=== PATIENT | female | born 1975 | race Two or more races ===

== ENCOUNTER 2016-07-19 07:00 | Inpatient (IN) | payer OTHER ==
[~2016-07-19] VITALS: Ht 147.3 cm; Wt 39.8 kg
[2016-07-19] VITALS (7 sets, daily range): BP systolic 98–104; BP diastolic 57–60; PULSE 96–109; RESP 16–18; TEMP 98.1; Ht 147.3 cm; Wt 39.8 kg
[~2016-07-19 07:00] MED LIST: ALBU8.5H3 INH; CYAN100053 IM; FAMO20TA18 PO; FLUT16SP17 NASAL; FOLI-49 PO; HYDR25CA PO; LORA10TA3 PO; NYST15OI TOP
[2016-07-19] MEDS ORDERED: SOD CHLORIDE 0.9% 1,000 ML IV STA (07:11)
--- NOTE | 2016-07-19 07:38 | RADRPT ---
PROCEDURE: Chest Radiograph. CLINICAL INDICATION: Abdominal pain TECHNIQUE: Single frontal chest radiograph. COMPARISON: 11/02/2015 FINDINGS: The cardiomediastinal silhouette is within normal limits. No infiltrate or effusion is seen. Th e bones are intact. IMPRESSION: 1. Unremarkable chest radiograph. RPTAT: AA .José Awan MD, MD Date Time Electronically viewed and signed by .José Awan MD, on 07/19/2016 07:37 .B/
--- NOTE | 2016-07-19 07:38 | ERA ---
ER Documentation Chief Complaint Date/Time DATE: 07/19/16 TIME: 07:36 Chief Complaint cough and congestion for the past few weeks. severe weakness HPI 41-year-old female history of Hirschsprung's disease, diverting colostomy, hypomagnesemia as well as chronic anemia who presents with generalized malaise. The patient has multiple complaints including cough congestion for several weeks. She describes severe weakness and dehydration. She denies any headache chest pain nausea vomiting or diarrhea. The patient states occasional palpitations but no pleuritic pain. She denies hematemesis or melena. ROS All systems reviewed and are negative except as per history of present illness. Medications Home Meds Reported Medications Hydroxyzine Pamoate* (Vistaril*) 25 Mg Capsule, 25 MG PO QHS Y for ITCHING, CAP 11/02/15 Nystatin-Triamcinolone* (Nystatin-Triamcinolone* Oint) 15 Gm Oint..gm., 1 APPLIC TOP DAILY, TUB 11/02/15 Albuterol Sulfate* (Proair HFA*) 8.5 Gm Hfa.aer.ad, 2 PUFF INH Q4H Y for WHEEZING AND SOB, #1 INHALER 11/02/15 Loratadine* (Loratadine*) 10 Mg Tablet, 10 MG PO DAILY, TAB 11/02/15 Folic Acid* (Folic Acid*) 1 Mg Tablet, 1 MG PO DAILY, TAB 11/02/15 Fluticasone Propionate* (Fluticasone Propionate* Nasal) 50 Mcg/Gay - 16 Gm Gay.susp, 1 SPRAY NASAL DAILY Y for ALLERGIC REACTION, BOTTLE TO EACH NOSTRIL 11/02/15 Famotidine* (Famotidine*) 20 Mg Tablet, 20 MG PO BID, TAB 11/02/15 Cyanocobalamin* (Vitamin B-12* Inj) 1,000 Mcg/Ml Vial, 1000 MCG IM Q28D, VIAL 11/02/15 Allergies Allergies: Coded Allergies: ferrous sulfate (Verified Allergy, Severe, 11/04/15) ANY FORM OF FERROUS codeine (Verified Allergy, Unknown, 11/02/15) PMhx/Soc History of Surgery: Yes (see eval note) Anesthesia Reaction: No Hx 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 Disorder: No Hx Respiratory Disorders: No Hx Cardiac Disorders: Yes (anemia) Hx Psychiatric Problems: No Hx Miscellaneous Medical Probl: Yes Hx Alcohol Use: No Hx Substance Use: No Hx Tobacco Use: No FmHx Family History: No diabetes Physical Exam Vitals Vital Signs Date Time Temp Pulse Resp B/P Pulse Ox O2 Delivery O2 Flow Rate FiO2 07/19/16 07:01 98.1 102 20 105/53 99 Physical Exam General: Cachectic, dehydrated Head: Normocephalic, atraumatic. Eyes: Pupils equally reactive, EOM intact ENT: Dry mucous membranes Neck: Supple, no lymphadenopathy Respiratory: Lungs clear bilaterally, no distress Cardiovascular: RRR, no murmurs, rubs, or gallops Abdominal: Soft, non-tender, non-distended, no peritoneal signs, ostomy with moderate output : Deferred MSK: No edema, no unilateral swelling, 5/5 strength Neurologic: Alert and oriented, moving all extremities, normal speech, no focal weakness, no cerebellar signs Skin: No rash Psych: Normal mood Result Diagram: 07/19/16 0805 07/19/16 0805 Results 24 hrs Laboratory Tests Test 07/19/16 08:05 07/19/16 08:08 Activated Partial Thromboplast Time 28.2Sec Alanine Aminotransferase (ALT/SGPT) 41IU/L Albumin 4.7g/dl Albumin/Globulin Ratio 1.14 Alkaline Phosphatase 111IU/L Anion Gap 19 Aspartate Amino Transf (AST/SGOT) 46IU/L Basophils # 0.110^3/ul Basophils % 0.7% Blood Morphology Comment Blood Urea Nitrogen 52mg/dl Calcium Level 9.0mg/dl Carbon Dioxide Level 21mmol/L Chloride Level 77mmol/L Creatinine 0.84mg/dl Direct Bilirubin 0.00mg/dl Eosinophils # 0.110^3/ul Eosinophils % 0.6% Globulin 4.10g/dl Glucose Level 119mg/dl Hematocrit 43.7% Hemoglobin 15.4g/dl INR International Normalized Ratio 0.95 Indirect Bilirubin 0.9mg/dl Lipase 147U/L Lymphocytes # 1.110^3/ul Lymphocytes % 12.2% Magnesium Level 1.6mg/dl Mean Corpuscular Hemoglobin 30.0pg Mean Corpuscular Hemoglobin Concent 35.2g/dl Mean Corpuscular Volume 85.1fl Mean Platelet Volume 7.4fl Monocytes # 0.210^3/ul Monocytes % 2.5% Neutrophils # 7.410^3/ul Neutrophils % 84.0% Nucleated Red Blood Cells # 0.010^3/ul Nucleated Red Blood Cells % 0.0/100WBC Platelet Count 65512^3/UL Potassium Level 6.2mmol/L Prothrombin Time 12.7Sec Prothrombin Time Ratio 1.0 Red Blood Count 5.1310^6/ul Red Cell Distribution Width 13.7% Sodium Level 111mmol/L Total Bilirubin 0.9mg/dl Total Protein 8.8g/dl Troponin I 0.013ng/ml White Blood Count 8.810^3/ul Random Cortisol ug/dl Urine Bacteria FEW Urine Bilirubin NEGATIVE Urine Clarity CLEAR Urine Color LT. YELLOW Urine Epithelial Cells FEW Urine Glucose NEGATIVE% Urine Hemoglobin 1+ Urine Ketones NEGATIVE Urine Leukocyte Esterase NEGATIVE Urine Microscopic RBC 0-2/HPF Urine Microscopic WBC NONE SEEN/HPF Urine Nitrite NEGATIVE Urine Random Potassium Pending Urine Random Sodium Pending Urine Specific [place] 1.015 Urine Total Protein 1+ Urine Urobilinogen 0.2 E.U./dL Urine pH 6.0 Current Medications Medications (Trade) Dose Ordered Sig/Elvie Route PRN Reason Start Time Stop Time Status Last Admin Dose Admin Sodium Chloride (NS) 1,000 ml @ 1,000 mls/hr Q1H STAT IV 07/19/16 07:11 07/19/16 08:10 DC 07/19/16 07:58 Ondansetron HCl (Zofran Inj) 4 mg ER BRIDGE PRN IV NAUSEA AND/OR VOMITING 07/19/16 10:00 07/20/16 09:59 Acetaminophen (Tylenol Tab) 650 mg ER BRIDGE PRN PO MILD PAIN/FEVER 07/19/16 10:00 07/20/16 09:59 Procedures/MDM EKG, MONITORS, & DIAGNOSTIC IMAGING: EKG: I reviewed and interpreted a 12-lead EKG. Rhythm: Normal sinus rhythm Ectopy: None Intervals: No abnormalities ST segments: No elevations or depressions T waves: No contiguous inversions Chest x-ray: I reviewed and interpreted a 1 view of the chest Mediastinum: No enlargement Cardiac silhouette: No cardiomegaly Airspace: Clear lung correia bilaterally without evidence of pneumothorax Bones: No evidence of fracture Procedure: Peripheral IV Insertion: Indication: Difficult IV access Location: Left antecubital fossa Attempts: 1 Angiocath-type: 18-gauge The patient was consented prior to procedure and states understanding of risks, benefits, alternatives. Verbal consent was provided Sterile procedure was used to insert a peripheral IV. Indication, location and Angiocath-type are noted above. Ultrasound guidance was used to assist in the insertion of the Angiocath. Return of dark nonpulsatile blood was obtained, normal saline flushed through the Angiocath which was then secured to the skin. The patient tolerated the procedure well without complications. Emergency Bedside Ultrasound: The patient was verbally consented prior to procedure and understands the risks , benefits, and alternatives. The patient is agreeable to procedure and has given verbal consent. Indication: Peripheral IV insertion Probe Type: Linear Findings: Dynamic ultrasound utilized with compression technique with both linear and horizontal views. The images were not saved because the ultrasound we were using does not have printer function LAB INTERPRETATION: Significant hyponatremia of 111, hyperkalemia, mild hypomagnesemia MEDICAL DECISION MAKING: The patient has signs and symptoms consistent with severe dehydration. The patient appears to be malnourished. The patient does describe coughing congestion but no signs of pneumonia, pulmonary embolism, CHF. This is possibly a viral process. She will benefit from laboratory testing and chest x- ray imaging she will also benefit from IV fluids. ER COURSE: The patient had difficult access. IV was established the patient was given fluids. Her laboratory testing suggests significant hypovolemic hyponatremia. Consider possible adrenal insufficiency however the patient does take potassium supplements. Her slight hyperkalemia could be secondary to this process. The patient has no EKG changes, no indication for Kayexalate or calcium or bicarb. Fluid resuscitation would be appropriate. Serum osmolality, urine electrolytes and cortisol levels have been added on. I discussed the possibility of hydrocortisone with the admitting team, they would like to avoid this until confirmation of possible diagnosis. This seems reasonable given the patient's relative hemodynamic stability. The patient does have significant hyponatremia but no evidence of seizure or altered mental status, no indication for hypertonic saline. I discussed possible ICU admission with the admitting team, they are comfortable managing the patient on telemetry. I kept the patient and/or family informed of laboratory and diagnostic imaging results throughout the emergency room course. DISPOSITION PLAN: Telemetry admission for management of dehydration CONSULTATION: Accepting care team and consultations: I discussed the current laboratory data, diagnostic imaging and emergency care provided. Admitting team: Dr. Prasad Admitting team indication: Insurance directed Consulting services: Dr. Flaherty, the patient's hematology oncologist will consult on the case. Departure Diagnosis: Primary Impression: Hyponatremia Additional Impressions: Hyperkalemia Dehydration Hypomagnesemia History of Hirschsprung's disease Condition: Stable OCTAVIA MARROQUIN MD Jul 19, 2016 07:38
[2016-07-19 08:19] LABS: BASOPHIL # 0.1 10^3/ul (0.0-0.1); BASOPHILS % 0.7 % (0.0-2.0); EOSINOPHILS # 0.1 10^3/ul (0.0-0.5); EOSINOPHILS % 0.6 % (0.0-7.0); HEMATOCRIT 43.7 % (37.0-47.0); HEMOGLOBIN 15.4 g/dl (12.0-16.0); LYMPHOCYTES # 1.1 10^3/ul (0.8-2.9); LYMPHOCYTES % 12.2 % (15.0-51.0); MEAN CORPUSCULAR HGB CONC 35.2 g/dl (32.0-37.0); MEAN CORPUSCULAR VOLUME 85.1 fl (82.0-101.0); MEAN PLATELET VOLUME 7.4 fl (7.4-10.4); MONOCYTE # 0.2 10^3/ul (0.3-0.9); MONOCYTES % 2.5 % (0.0-11.0); NEUTROPHIL # 7.4 10^3/ul (1.6-7.5); PLATELET COUNT 405 10^3/UL (140-440); RED BLOOD COUNT 5.13 10^6/ul (4.20-5.40); RED CELL DISTRIBUTION WIDTH 13.7 % (11.5-14.5); UNCORRECTED WBC 8.8 10^3/ul (4.8-10.8); WHITE BLOOD COUNT 8.8 10^3/ul (4.8-10.8)
[2016-07-19 08:25] LABS: ADD UMIC YES; URINE BILIRUBIN (Dip) NEGATIVE (NEGATIVE); URINE BLOOD (Dip) 1+ (NEGATIVE); URINE COLOR LT. YELLOW (YELLOW); URINE GLUCOSE (Dip) NEGATIVE (NEGATIVE); URINE KETONES (Dip) NEGATIVE (NEGATIVE); URINE LEUKOCYTE ESTERASE (Dip) NEGATIVE (NEGATIVE); URINE NITRITE (Dip) NEGATIVE (NEGATIVE); URINE TOTAL PROTEIN (Dip) 1+ (NEGATIVE); URINE UROBILINOGEN (Dip) 0.2 E.U./dL (0.1-1.0)
[2016-07-19 08:26] LABS: CONDITION 1
[2016-07-19 08:27] LABS: ALBUMIN 4.7 g/dl (3.3-4.9)
[2016-07-19 08:29] LABS: CREATININE 0.84 mg/dl (0.44-1.00)
[2016-07-19 08:30] LABS: ALBUMIN/GLOBULIN RATIO 1.14; BILIRUBIN,INDIRECT 0.9 mg/dl (0-1.1); BILIRUBIN,TOTAL 0.9 mg/dl (0.2-1.3); MAGNESIUM 1.6 mg/dl (1.7-2.5); TOTAL PROTEIN 8.8 g/dl (6.1-8.1)
[2016-07-19 08:32] LABS: BACTERIA,URINE FEW; URINE RBCS 0-2 /HPF (0)
[2016-07-19 08:34] LABS: POTASSIUM 6.2 mmol/L (3.5-5.1)
[2016-07-19 08:35] LABS: INR 0.95; PROTIME 12.7 Sec (12.2-14.2)
[2016-07-19 08:36] LABS: PARTIAL THROMBOPLASTIN TIME 28.2 Sec (25.0-35.0)
[2016-07-19 08:41] LABS: TROPONIN-I 0.013 ng/ml (0.00-0.12)
[2016-07-19] MEDS ORDERED: ONDANSETRON 4 MG INJ IV PRN (10:00)
[2016-07-19] MEDS ORDERED: ACETAMINOPHEN 325 MG TAB PO PRN (10:00)
[2016-07-19 10:05] LABS: POTASSIUM,URINE RANDOM 42.4 mmol/L (25-125)
[2016-07-19] MEDS ORDERED: MAGNESIUM SULFATE 1 GM/D5W 100 ML IVPB ONE (10:30)
[2016-07-19] MEDS: SOD CHLORIDE 0.9% 1,000 ML IV SCH ×2 (14:48→21:21)
--- NOTE | 2016-07-19 15:10 | CONS ---
Date/Time of Note Date/Time of Note DATE: 07/19/16 TIME: 14:59 Assessment/Plan Assessment/Plan Chief Complaint/Hosp Course 41 yo female with h/o iron deficiency anemia and Hirschsprung's disease who now presents with severe hyponatremia and hyperkalemia secondary to dehydration and potassium supplementation. -continue IV fluids per primary team -cont to monitor electrolytes and will hold all K supplementation -continue to monitor Hg. Pt currently not anemic and does not need IV iron Approximately 40 min were spent at patient's bedside and in coordination of her care Problems: Consultation Date/Type/Reason Admit Date/Time Jul 19, 2016 at 12:15 Date of Consultation: Jul 19, 2016 Type of Consultation: hematology Reason for Consultation h/o iron deficiency anemia Referring Provider: CARLOS RODRIGUEZ MD Hx of Present Illness 41 yo female well known to our office with history of Hirschsprung's disease who is chronically iron deficiency. Pt is closely followed in our office for iron transfusions which she has not needed for the last 2 months. Pt is also chronically hypokalemic and hypomagnesemic. Pt presented to ER with worsening weakness and tremors. In the ER she was found to be severely hyponatremic with a Na 111 and hyperkalemic with a K 6.2. She is now on IV hydration and her sx have improved. She is currently not anemic and has a Hg 15. Constitutional: poor po Eyes: no complaints ENT: no complaints Respiratory: no complaints Cardiovascular: lightheadedness, palpitations Gastrointestinal: decreased appetite, nausea Genitourinary: no complaints Musculoskeletal: bone/joint pain Skin: no complaints Neurologic: dizziness Past Medical History iron deficiency anemia h/o Hirschsprung's disease with h/o colectomy Past Surgical History port a cath placement and removal for port infection Past Surgical Hx: other Family History Significant Family History: no pertinent family hx Social History Alcohol Use: none Smoking Status: Never smoker Drug Use: none Exam/Review of Systems Vital Signs Vitals Vital Signs Date Time Temp Pulse Resp B/P Pulse Ox O2 Delivery O2 Flow Rate FiO2 07/19/16 12:32 107 07/19/16 12:28 97.7 16 104/60 100 Room Air Exam Constitutional: alert, frail, oriented Psych: no complaints Head: atraumatic, normocephalic Eyes: nl conjunctiva ENMT: nl external ears & nose Neck: non-tender, supple Respiratory: clear to auscultation, normal air movement Cardiovascular: nl pulses, regular rate and rhythm Gastrointestinal: soft Musculoskeletal: nl extremities to inspection, nl gait and stance Extremities: normal pulses Results Result Diagram: 07/19/16 0805 07/19/16 0805 Results 24 hrs Laboratory Tests Test 07/19/16 08:05 07/19/16 08:08 07/19/16 10:10 Activated Partial Thromboplast Time 28.2 Alanine Aminotransferase (ALT/SGPT) 41 Albumin 4.7 Albumin/Globulin Ratio 1.14 Alkaline Phosphatase 111 Anion Gap 19 H Aspartate Amino Transf (AST/SGOT) 46 Basophils # 0.1 Basophils % 0.7 Blood Morphology Comment Blood Urea Nitrogen 52 H Calcium Level 9.0 Carbon Dioxide Level 21 Chloride Level 77 L Creatinine 0.84 Direct Bilirubin 0.00 Eosinophils # 0.1 Eosinophils % 0.6 Globulin 4.10 H Glucose Level 119 Hematocrit 43.7 # Hemoglobin 15.4 # INR International Normalized Ratio 0.95 Indirect Bilirubin 0.9 Lipase 147 Lymphocytes # 1.1 Lymphocytes % 12.2 L Magnesium Level 1.6 L Mean Corpuscular Hemoglobin 30.0 Mean Corpuscular Hemoglobin Concent 35.2 Mean Corpuscular Volume 85.1 Mean Platelet Volume 7.4 Monocytes # 0.2 L Monocytes % 2.5 Neutrophils # 7.4 Neutrophils % 84.0 H Nucleated Red Blood Cells # 0.0 Nucleated Red Blood Cells % 0.0 Platelet Count 405 Potassium Level 6.2 *H Prothrombin Time 12.7 Prothrombin Time Ratio 1.0 Red Blood Count 5.13 # Red Cell Distribution Width 13.7 Sodium Level 111 *L Total Bilirubin 0.9 Total Protein 8.8 H Troponin I 0.013 White Blood Count 8.8 # Random Cortisol 21.9 Urine Bacteria FEW Urine Bilirubin NEGATIVE Urine Clarity CLEAR Urine Color LT. YELLOW Urine Epithelial Cells FEW Urine Glucose NEGATIVE Urine Hemoglobin 1+ H Urine Ketones NEGATIVE Urine Leukocyte Esterase NEGATIVE Urine Microscopic RBC 0-2 Urine Microscopic WBC NONE SEEN Urine Nitrite NEGATIVE Urine Osmolality 631 Urine Random Potassium 42.4 Urine Random Sodium < 13 L Urine Specific [employer] 1.015 Urine Total Protein 1+ H Urine Urobilinogen 0.2 E.U./dL Urine pH 6.0 Osmolality 249 L Medications Medications Current Medications Sodium Chloride (NS) 1,000 ml @ 150 mls/hr Q6H40M IV Last administered on t 14:48; Admin Dose 150 MLS/HR; Start 07/19/16 at 14:00 PADMINI SHERIFF M.D. Jul 19, 2016 15:10
--- NOTE | 2016-07-19 15:34 | HP ---
Date/Time of Note Date/Time of Note DATE: 07/19/16 TIME: 15:32 Assessment/Plan VTE Prophylaxis VTE Prophylaxis Intervention: LMWH Lines/Catheters IV Catheter Type (from [facility]): Saline Lock Urinary Cath still in place: No Assessment/Plan Chief Complaint/Hosp Course 1) hyponatremia - IV fluid - appreciate hematology assistance 2) Hirschsprung - monitor Problems: HPI/ROS Admit Date/Time Admit Date/Time Jul 19, 2016 at 12:15 Hx of Present Illness Patient with Hirschsprungs disease comes in with weakness and fatigue. Patient was found to be severely hyponatremic and admitted for further treatment. ROS Eyes: no complaints ENT: no complaints Respiratory: no complaints Cardiovascular: lightheadedness, palpitations Gastrointestinal: decreased appetite, nausea Genitourinary: no complaints Musculoskeletal: bone/joint pain Skin: no complaints Neurologic: dizziness Psychological: no complaints PMH/Family/Social Past Medical History Hirschsprung disease Past Surgical History Ileostomy Past Surgical Hx: other Social History Alcohol Use: none Smoking Status: Never smoker Drug Use: none Exam/Review of Systems Vital Signs Vitals Vital Signs Date Time Temp Pulse Resp B/P Pulse Ox O2 Delivery O2 Flow Rate FiO2 07/19/16 12:32 107 07/19/16 12:28 97.7 16 104/60 100 Room Air Exam Constitutional: frail, well developed Head: atraumatic, normocephalic Neck: supple Respiratory: clear to auscultation Cardiovascular: regular rate and rhythm Gastrointestinal: non-tender, soft Extremities: normal pulses Labs Result Diagram: 07/19/16 0805 07/19/16 0805 Medications Medications Current Medications Sodium Chloride (NS) 1,000 ml @ 150 mls/hr Q6H40M IV Last administered on t 14:48; Admin Dose 150 MLS/HR; Start 07/19/16 at 14:00 GINGER MOSES Jul 19, 2016 15:33
[2016-07-20] VITALS (11 sets, daily range): BP systolic 91–99; BP diastolic 53–57; PULSE 86–113; RESP 16–20
[2016-07-20] MEDS: SOD CHLORIDE 0.9% 1,000 ML IV SCH ×5 (03:33→22:23)
[2016-07-20 07:45] LABS: BASOPHILS % 0.1 % (0.0-2.0); EOSINOPHILS # 0.1 10^3/ul (0.0-0.5); EOSINOPHILS % 1.5 % (0.0-7.0); HEMATOCRIT 36.9 % (37.0-47.0); HEMOGLOBIN 12.9 g/dl (12.0-16.0); LYMPHOCYTES # 0.7 10^3/ul (0.8-2.9); LYMPHOCYTES % 12.5 % (15.0-51.0); MEAN CORPUSCULAR HEMOGLOBIN 30.5 pg (29.0-33.0); MEAN CORPUSCULAR HGB CONC 34.9 g/dl (32.0-37.0); MEAN CORPUSCULAR VOLUME 87.5 fl (82.0-101.0); MEAN PLATELET VOLUME 7.4 fl (7.4-10.4); MONOCYTE # 0.6 10^3/ul (0.3-0.9); MONOCYTES % 11.9 % (0.0-11.0); PLATELET COUNT 307 10^3/UL (140-440); RED BLOOD COUNT 4.22 10^6/ul (4.20-5.40); RED CELL DISTRIBUTION WIDTH 14.1 % (11.5-14.5); UNCORRECTED WBC 5.4 10^3/ul (4.8-10.8); WHITE BLOOD COUNT 5.4 10^3/ul (4.8-10.8)
[2016-07-20 07:53] LABS: CONDITION 1
[2016-07-20 08:05] LABS: POTASSIUM 3.4 mmol/L (3.5-5.1)
[2016-07-20 08:08] LABS: CREATININE 0.53 mg/dl (0.44-1.00)
[2016-07-20 08:09] LABS: CALCIUM 8.4 mg/dl (8.4-10.2)
--- NOTE | 2016-07-20 12:25 | PN ---
Date/Time of Note Date/Time of Note DATE: 07/20/16 TIME: 12:23 Assessment/Plan VTE Prophylaxis VTE Prophylaxis Intervention: LMWH Lines/Catheters IV [facility] Type [facility]from [facility] Peripheral IV Urinary Cath still in place: No Assessment/Plan Chief Complaint/Hosp Course 1) hyponatremia - improved - continue IV fluid - appreciate hematology assistance 2) Hirschsprung - monitor Problems: Subjective 24 Hr Interval Summary Free Text/Dictation Patient awake but appears to be confused Exam/Review of Systems Vital Signs Vitals Vital Signs Date Time Temp Pulse Resp B/P Pulse Ox O2 Delivery O2 Flow Rate FiO2 07/20/16 11:40 98.2 85 18 97/53 100 07/19/16 12:28 Room Air Intake and Output 07/19/16 07/19/16 07/20/16 15:00 23:00 07:00 Intake Total 540 ml 2440 ml Output Total 400 ml 2150 ml Balance 140 ml 290 ml Exam Constitutional: well developed Head: atraumatic, normocephalic Neck: supple Respiratory: diminished breath sounds Cardiovascular: regular rate and rhythm Gastrointestinal: non-tender, soft Extremities: normal pulses Results Result Diagram: 07/20/16 0658 07/20/16 0658 Results 24 hrs Laboratory Tests Test 07/20/16 06:58 Anion Gap 14 Basophils # 0.0 Basophils % 0.1 Blood Urea Nitrogen 16 # Calcium Level 8.4 Carbon Dioxide Level 24 Chloride Level 99 # Creatinine 0.53 Eosinophils # 0.1 Eosinophils % 1.5 Glucose Level 73 # Hematocrit 36.9 L Hemoglobin 12.9 Lymphocytes # 0.7 L Lymphocytes % 12.5 L Mean Corpuscular Hemoglobin 30.5 Mean Corpuscular Hemoglobin Concent 34.9 Mean Corpuscular Volume 87.5 Mean Platelet Volume 7.4 Monocytes # 0.6 Monocytes % 11.9 H Neutrophils # 4.0 Neutrophils % 74.0 Nucleated Red Blood Cells # 0.0 Nucleated Red Blood Cells % 0.0 Platelet Count 307 # Potassium Level 3.4 #L Red Blood Count 4.22 Red Cell Distribution Width 14.1 Sodium Level 134 #L White Blood Count 5.4 # Medications Medications Current Medications Sodium Chloride (NS) 1,000 ml @ 150 mls/hr Q6H40M IV Last administered on t 11:46; Admin Dose 150 MLS/HR; Start 07/19/16 at 14:00 GINGER MOSES Jul 20, 2016 12:24
[2016-07-21] VITALS (13 sets, daily range): BP systolic 82–101; BP diastolic 52–56; PULSE 82–107; RESP 16–20
[2016-07-21] MEDS: SOD CHLORIDE 0.9% 1,000 ML IV SCH ×3 (05:39→19:20)
[2016-07-21 08:09] LABS: CREATININE 0.46 mg/dl (0.44-1.00)
[2016-07-21 08:10] LABS: CALCIUM 7.4 mg/dl (8.4-10.2)
[2016-07-21 08:14] LABS: BASOPHILS % 0.1 % (0.0-2.0); EOSINOPHILS # 0.3 10^3/ul (0.0-0.5); EOSINOPHILS % 4.4 % (0.0-7.0); HEMATOCRIT 34.6 % (37.0-47.0); LYMPHOCYTES # 0.7 10^3/ul (0.8-2.9); LYMPHOCYTES % 10.7 % (15.0-51.0); MEAN CORPUSCULAR HEMOGLOBIN 30.1 pg (29.0-33.0); MEAN CORPUSCULAR HGB CONC 34.6 g/dl (32.0-37.0); MEAN CORPUSCULAR VOLUME 87.1 fl (82.0-101.0); MEAN PLATELET VOLUME 7.1 fl (7.4-10.4); MONOCYTE # 0.6 10^3/ul (0.3-0.9); MONOCYTES % 9.1 % (0.0-11.0); NEUTROPHIL # 5.3 10^3/ul (1.6-7.5); NEUTROPHILS % 75.7 % (39.0-77.0); PLATELET COUNT 344 10^3/UL (140-440); RED BLOOD COUNT 3.98 10^6/ul (4.20-5.40); RED CELL DISTRIBUTION WIDTH 13.8 % (11.5-14.5)
[2016-07-21 08:15] LABS: POTASSIUM 2.3 mmol/L (3.5-5.1)
[2016-07-21 08:25] LABS: CONDITION 1
[2016-07-21] MEDS: POTASSIUM CHLORIDE 250 ML IVPB SCH ×2 (09:30→18:28)
--- NOTE | 2016-07-21 12:13 | PN ---
Date/Time of Note Date/Time of Note DATE: 07/21/16 TIME: 12:12 Assessment/Plan VTE Prophylaxis VTE Prophylaxis Intervention: LMWH Lines/Catheters IV [facility] (from [facility] Peripheral IV Urinary Cath still in place: No Assessment/Plan Chief Complaint/Hosp Course 1) hyponatremia - improved - continue IV fluid - appreciate hematology assistance 2) Hirschsprung - monitor 3) hypokalemia - replace - monitor Problems: Subjective 24 Hr Interval Summary Free Text/Dictation Patient continues to feel weak Exam/Review of Systems Vital Signs Vitals Vital Signs Date Time Temp Pulse Resp B/P Pulse Ox O2 Delivery O2 Flow Rate FiO2 07/21/16 12:11 97.5 84 20 89/52 100 07/21/16 00:00 Room Air Intake and Output 07/20/16 07/20/16 07/21/16 15:00 23:00 07:00 Intake Total 1750 ml 500 ml Output Total 910 ml 1050 ml Balance 840 ml -550 ml Exam Constitutional: well developed Head: atraumatic, normocephalic Neck: supple Respiratory: diminished breath sounds Cardiovascular: regular rate and rhythm Gastrointestinal: non-tender, soft Results Result Diagram: 07/21/16 0725 07/21/16 0725 Results 24 hrs Laboratory Tests Test 07/21/16 07:25 Anion Gap 14 Basophils # 0.0 Basophils % 0.1 Blood Morphology Comment Blood Urea Nitrogen 10 Calcium Level 7.4 L Carbon Dioxide Level 25 Chloride Level 100 Creatinine 0.46 Eosinophils # 0.3 Eosinophils % 4.4 Glucose Level 87 Hematocrit 34.6 L Hemoglobin 12.0 Lymphocytes # 0.7 L Lymphocytes % 10.7 L Mean Corpuscular Hemoglobin 30.1 Mean Corpuscular Hemoglobin Concent 34.6 Mean Corpuscular Volume 87.1 Mean Platelet Volume 7.1 L Monocytes # 0.6 Monocytes % 9.1 Neutrophils # 5.3 Neutrophils % 75.7 Nucleated Red Blood Cells # 0.0 Nucleated Red Blood Cells % 0.0 Platelet Count 344 Potassium Level 2.3 *L Red Blood Count 3.98 L Red Cell Distribution Width 13.8 Sodium Level 137 White Blood Count 7.0 # Medications Medications Current Medications Sodium Chloride 1,000 ml @ 150 mls/hr Q6H40M IV Last administered on 07/21/16t 05:39; Admin Dose 150 MLS/HR; Start 07/19/16 at 14:00 Potassium Chloride (KCl 40 MEQ/250 ML NS) 250 ml @ 62.5 mls/hr Q4H IVPB Last administered on 07/21/16t 09:30; Admin Dose 62.5 MLS/HR; Start 07/21/16 at 09:30; Stop 07/21/16 at 17:29 GINGER MOSES Jul 21, 2016 12:13
[2016-07-21] MEDS ORDERED: POTASSIUM CHLORIDE (SR) 20 MEQ TAB PO STA (22:13)
[2016-07-21] MEDS: hydrOXYzine HCL 10 MG TAB GTB PRN (23:32)
[2016-07-22] VITALS (13 sets, daily range): BP systolic 89–101; BP diastolic 47–59; PULSE 75–110; RESP 19–20
[2016-07-22] MEDS: SOD CHLORIDE 0.9% 1,000 ML IV SCH ×5 (01:15→21:22)
[2016-07-22 10:59] LABS: BASOPHIL # 0.1 10^3/ul (0.0-0.1); BASOPHILS % 0.5 % (0.0-2.0); EOSINOPHILS # 0.5 10^3/ul (0.0-0.5); HEMATOCRIT 38.2 % (37.0-47.0); HEMOGLOBIN 13.2 g/dl (12.0-16.0); LYMPHOCYTES # 0.7 10^3/ul (0.8-2.9); LYMPHOCYTES % 7.3 % (15.0-51.0); MEAN CORPUSCULAR HEMOGLOBIN 29.9 pg (29.0-33.0); MEAN CORPUSCULAR HGB CONC 34.5 g/dl (32.0-37.0); MEAN CORPUSCULAR VOLUME 86.7 fl (82.0-101.0); MEAN PLATELET VOLUME 7.2 fl (7.4-10.4); MONOCYTE # 0.4 10^3/ul (0.3-0.9); MONOCYTES % 3.7 % (0.0-11.0); NEUTROPHIL # 8.4 10^3/ul (1.6-7.5); NEUTROPHILS % 83.5 % (39.0-77.0); PLATELET COUNT 348 10^3/UL (140-440); RED BLOOD COUNT 4.41 10^6/ul (4.20-5.40); RED CELL DISTRIBUTION WIDTH 14.1 % (11.5-14.5); UNCORRECTED WBC 10.1 10^3/ul (4.8-10.8); WHITE BLOOD COUNT 10.1 10^3/ul (4.8-10.8)
[2016-07-22 11:04] LABS: CONDITION 1
[2016-07-22 11:10] LABS: CREATININE 0.54 mg/dl (0.44-1.00)
[2016-07-22 11:13] LABS: POTASSIUM 2.9 mmol/L (3.5-5.1)
[2016-07-22] MEDS ORDERED: POTASSIUM CHLORIDE (SR) 20 MEQ TAB PO STA (11:58)
[2016-07-22] MEDS ORDERED: MAGNESIUM SULFATE 3 GM in SOD CHLORIDE 0.9% 100 ML IVPB ONE (14:00)
--- NOTE | 2016-07-22 14:49 | CONS ---
Date/Time of Note Date/Time of Note DATE: 07/22/16 TIME: 14:47 Assessment/Plan Assessment/Plan Chief Complaint/Hosp Course 41 yo female with h/o iron deficiency anemia and Hirschsprung's disease who now presents with severe hyponatremia and hyperkalemia secondary to dehydration and potassium supplementation. -continue IV fluids per primary team -cont to monitor electrolytes. need to continue potassium supplementation -continue to monitor Hg. Pt currently not anemic and does not need IV iron Approximately 40 min were spent at patient's bedside and in coordination of her care Problems: Consultation Date/Type/Reason Admit Date/Time Jul 19, 2016 at 12:15 Initial Consult Date 07/19/16 Type of Consultation: hematology Reason for Consultation h/o iron deficiency anemia Referring Provider: CARLOS RODRIGUEZ MD 24 HR Interval Summary Free Text/Dictation pt now hypokalemic. ileostomy is putting out a lot of stool.. no longer hyponatremic Exam/Review of Systems Vital Signs Vitals Vital Signs Date Time Temp Pulse Resp B/P Pulse Ox O2 Delivery O2 Flow Rate FiO2 07/22/16 12:17 77 07/22/16 11:50 98.3 20 91/52 92 07/21/16 00:00 Room Air Intake and Output 07/21/16 07/21/16 07/22/16 15:00 23:00 07:00 Intake Total 720 ml 2300 ml Output Total 1300 ml 950 ml Balance -580 ml 1350 ml Exam Constitutional: alert, oriented Head: atraumatic, normocephalic Eyes: nl conjunctiva ENMT: nl external ears & nose Neck: non-tender, supple Respiratory: clear to auscultation, normal air movement Cardiovascular: nl pulses, regular rate and rhythm Gastrointestinal: other (ileostomy in place), soft Musculoskeletal: nl extremities to inspection, nl gait and stance Results Result Diagram: 07/22/16 1040 07/22/16 1040 Results 24 hrs Laboratory Tests Test 07/22/16 10:40 Anion Gap 12 Basophils # 0.1 Basophils % 0.5 Blood Morphology Comment Blood Urea Nitrogen 13 Calcium Level 8.0 L Carbon Dioxide Level 30 Chloride Level 105 Creatinine 0.54 Eosinophils # 0.5 Eosinophils % 5.0 Glucose Level 101 Hematocrit 38.2 Hemoglobin 13.2 Lymphocytes # 0.7 L Lymphocytes % 7.3 L Magnesium Level 1.0 L Mean Corpuscular Hemoglobin 29.9 Mean Corpuscular Hemoglobin Concent 34.5 Mean Corpuscular Volume 86.7 Mean Platelet Volume 7.2 L Monocytes # 0.4 Monocytes % 3.7 Neutrophils # 8.4 H Neutrophils % 83.5 H Nucleated Red Blood Cells # 0.0 Nucleated Red Blood Cells % 0.0 Platelet Count 348 Potassium Level 2.9 *L Red Blood Count 4.41 Red Cell Distribution Width 14.1 Sodium Level 144 White Blood Count 10.1 # Medications Medications Current Medications Sodium Chloride (NS) 1,000 ml @ 150 mls/hr Q6H40M IV Last administered on 10:50; Admin Dose 150 MLS/HR; Start 07/19/16 at 14:00 Hydroxyzine HCl 10 mg 10 mg Q6H PRN GTB ITCHING Last administered on 07/21/16 23:32; Admin Dose 10 MG; Start 07/21/16 at 22:30 Magnesium Sulfate/ Sodium Chloride (Magnesium Sulfate/NS) 106 ml @ 35.333 mls/ hr ONCE ONCE IVPB ; Start 07/22/16 at 14:00; Stop 07/22/16 at 16:59 Potassium Chloride (Klor-Con 20) 40 meq ONCE ONCE PO ; Start 07/22/16 at 16:00; Stop 07/22/16 at 16:01 PADMINI SHERIFF M.D. Jul 22, 2016 14:49
[2016-07-22] MEDS ORDERED: POTASSIUM CHLORIDE (SR) 20 MEQ TAB PO ONE (16:00)
--- NOTE | 2016-07-22 18:49 | PN ---
Date/Time of Note Date/Time of Note DATE: 07/22/16 TIME: 18:42 Assessment/Plan VTE Prophylaxis VTE Prophylaxis Intervention: SCD's Lines/Catheters IV C[facility]ter Type (from [facility]): Peripheral IV Urinary Cath still in place: No Assessment/Plan Chief Complaint/Hosp Course 1. Hirschsprung disease status post colostomy. 2. Anxiety. 3. Severe hyponatremia on admission, resolved. 4. Hypokalemia, potassium replaced 5. Hypomagnesemia, magnesium replaced, continue to monitor electrolytes. Further recommendations based on clinical course. Plan of care discussed with Dr. Paez Problems: Subjective 24 Hr Interval Summary Free Text/Dictation No acute events overnight, patient denies any nausea vomiting. Exam/Review of Systems Vital Signs Vitals Vital Signs Date Time Temp Pulse Resp B/P Pulse Ox O2 Delivery O2 Flow Rate FiO2 07/22/16 16:30 88 07/22/16 15:31 97.8 20 95/47 100 07/21/16 00:00 Room Air Intake and Output 07/21/16 07/21/16 07/22/16 15:00 23:00 07:00 Intake Total 720 ml 2300 ml Output Total 1300 ml 950 ml Balance -580 ml 1350 ml Exam Constitutional: alert, oriented, well developed Head: atraumatic, normocephalic ENMT: nl external ears & nose Neck: non-tender, supple Respiratory: clear to auscultation, normal air movement Cardiovascular: other (tachycardia), regular rate and rhythm Gastrointestinal: non-tender, other (colostomy), soft Musculoskeletal: nl extremities to inspection Extremities: normal pulses 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 Skin: nl turgor Results Result Diagram: 07/22/16 1040 07/22/16 1040 Results 24 hrs Laboratory Tests Test 07/22/16 10:40 Anion Gap 12 Basophils # 0.1 Basophils % 0.5 Blood Morphology Comment Blood Urea Nitrogen 13 Calcium Level 8.0 L Carbon Dioxide Level 30 Chloride Level 105 Creatinine 0.54 Eosinophils # 0.5 Eosinophils % 5.0 Glucose Level 101 Hematocrit 38.2 Hemoglobin 13.2 Lymphocytes # 0.7 L Lymphocytes % 7.3 L Magnesium Level 1.0 L Mean Corpuscular Hemoglobin 29.9 Mean Corpuscular Hemoglobin Concent 34.5 Mean Corpuscular Volume 86.7 Mean Platelet Volume 7.2 L Monocytes # 0.4 Monocytes % 3.7 Neutrophils # 8.4 H Neutrophils % 83.5 H Nucleated Red Blood Cells # 0.0 Nucleated Red Blood Cells % 0.0 Platelet Count 348 Potassium Level 2.9 *L Red Blood Count 4.41 Red Cell Distribution Width 14.1 Sodium Level 144 White Blood Count 10.1 # Medications Medications Current Medications Sodium Chloride (NS) 1,000 ml @ 150 mls/hr Q6H40M IV Last administered on 10:50; Admin Dose 150 MLS/HR; Start 07/19/16 at 14:00 Hydroxyzine HCl (Atarax) 10 mg Q6H PRN GTB ITCHING Last administered on 23:32; Admin Dose 10 MG; Start 07/21/16 at 22:30 ROMI ESPINO Jul 22, 2016 18:48
[2016-07-23] VITALS (12 sets, daily range): BP systolic 81–100; BP diastolic 41–56; PULSE 75–103; RESP 18–20
[2016-07-23] MEDS: SOD CHLORIDE 0.9% 1,000 ML IV SCH ×2 (04:58→11:20)
[2016-07-23 07:12] LABS: POTASSIUM 3.3 mmol/L (3.5-5.1)
[2016-07-23 07:15] LABS: CALCIUM 7.7 mg/dl (8.4-10.2); CREATININE 0.49 mg/dl (0.44-1.00)
[2016-07-23 07:16] LABS: MAGNESIUM 1.8 mg/dl (1.7-2.5)
[2016-07-23] MEDS ORDERED: POTASSIUM CHLORIDE (SR) 20 MEQ TAB PO STA (09:54)
--- NOTE | 2016-07-23 15:01 | PN ---
Date/Time of Note Date/Time of Note DATE: 07/23/16 TIME: 14:59 Assessment/Plan VTE Prophylaxis VTE Prophylaxis Intervention: SCD's Lines/Catheters IV Catheter Type (from [facility]): Peripheral IV Urinary Cath still in place: No Assessment/Plan Chief Complaint/Hosp Course 1. Hirschsprung disease status post colostomy. 2. Severe hyponatremia on admission, resolved. 3. Hypokalemia, potassium replaced Further recommendations based on clinical course. Plan of care discussed with Dr. Paez Problems: Subjective 24 Hr Interval Summary Free Text/Dictation Patient's continue to be monitored on telemetry sinus tachycardia 100-120s, patient denies any nausea vomiting, able to tolerate diet well, potassium replaced. Patient's continues to have large output via colostomy more than 1000 cc per shift, continue IV fluids and monitor electrolytes. Exam/Review of Systems Vital Signs Vitals Vital Signs Date Time Temp Pulse Resp B/P Pulse Ox O2 Delivery O2 Flow Rate FiO2 07/23/16 12:44 98.0 103 18 88/41 98 07/21/16 00:00 Room Air Intake and Output 07/22/16 07/22/16 07/23/16 15:00 23:00 07:00 Intake Total 600 ml 1450 ml Output Total 550 ml 500 ml 600 ml Balance -550 ml 100 ml 850 ml Exam Constitutional: alert, oriented Psych: no complaints Head: atraumatic, normocephalic Eyes: nl conjunctiva ENMT: nl external ears & nose Neck: non-tender, supple Respiratory: clear to auscultation, normal air movement Cardiovascular: other (Tachycardia), regular rate and rhythm Gastrointestinal: soft Extremities: normal pulses 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-XII 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 Skin: nl turgor Results Result Diagram: 07/22/16 1040 07/23/16 0630 Results 24 hrs Laboratory Tests Test 07/23/16 06:30 Anion Gap 10 Blood Urea Nitrogen 10 Calcium Level 7.7 L Carbon Dioxide Level 31 Chloride Level 105 Creatinine 0.49 Glucose Level 78 Magnesium Level 1.8 Potassium Level 3.3 L Sodium Level 143 Medications Medications Current Medications Sodium Chloride (NS) 1,000 ml @ 150 mls/hr Q6H40M IV Last administered on 07/23t 04:58; Admin Dose 150 MLS/HR; Start 07/19/16 at 14:00 Hydroxyzine HCl (Atarax) 10 mg Q6H PRN GTB ITCHING Last administered on t 23:32; Admin Dose 10 MG; Start 07/21/16 at 22:30 ROMI ESPINO Jul 23, 2016 15:01
[2016-07-23] MEDS: POTASSIUM CHLORIDE (SR) 10 MEQ TAB PO SCH (16:19)
[2016-07-23] MEDS: NS + KCL 20 MEQ 1,000 ML IV SCH (16:19)
[2016-07-23] MEDS: MAGNESIUM CHLORIDE (SR) 64 MG TAB PO SCH (21:41)
[2016-07-23] MEDS: hydrOXYzine HCL 10 MG TAB GTB PRN (21:42)
[2016-07-24] MEDS: NS + KCL 20 MEQ 1,000 ML IV SCH ×2 (05:15→22:14)
[2016-07-24 05:56] LABS: ALBUMIN 2.9 g/dl (3.3-4.9)
[2016-07-24 05:57] LABS: POTASSIUM 3.6 mmol/L (3.5-5.1)
[2016-07-24 05:59] LABS: ALBUMIN/GLOBULIN RATIO 1.03; CREATININE 0.54 mg/dl (0.44-1.00); TOTAL PROTEIN 5.7 g/dl (6.1-8.1)
[2016-07-24 06:00] LABS: CALCIUM 8.5 mg/dl (8.4-10.2)
[2016-07-24 07:45] VITALS: BP 92/50; RESP 16
[2016-07-24] MEDS: POTASSIUM CHLORIDE (SR) 10 MEQ TAB PO SCH (08:39)
[2016-07-24] MEDS: MAGNESIUM CHLORIDE (SR) 64 MG TAB PO SCH ×2 (08:39→22:10)
--- NOTE | 2016-07-24 09:57 | CONS ---
Date/Time of Note Date/Time of Note DATE: 07/24/16 TIME: 09:54 Assessment/Plan Assessment/Plan Chief Complaint/Hosp Course 41 yo female with h/o iron deficiency anemia and Hirschsprung's disease who now presents with severe hyponatremia and hyperkalemia secondary to dehydration and potassium supplementation. Na and K now within normal limits -continue IV fluids per primary team -cont to monitor electrolytes. appreciate recs from primary team regarding K and Mag supplementation. will continue this as an out patient. pt is currently on Mag 64mg BID and KCL 30meq q day -continue to monitor Hg. Pt currently not anemic and does not need IV iron Approximately 40 min were spent at patient's bedside and in coordination of her care Problems: Consultation Date/Type/Reason Admit Date/Time Jul 19, 2016 at 12:15 Initial Consult Date 07/19/16 Type of Consultation: hematology Reason for Consultation iron def anemia, Hirschsprung's disease, electrolyte management Referring Provider: CARLOS RODRIGUEZ MD 24 HR Interval Summary Free Text/Dictation pt feels much better this morning. still with increased output from the ostomy Exam/Review of Systems Vital Signs Vitals Vital Signs Date Time Temp Pulse Resp B/P Pulse Ox O2 Delivery O2 Flow Rate FiO2 07/24/16 07:45 98.3 99 16 92/50 100 07/23/16 15:46 Room Air Intake and Output 07/23/16 07/23/16 07/24/16 15:00 23:00 07:00 Intake Total 1990 ml 1240 ml Output Total 450 ml 1380 ml 550 ml Balance -450 ml 610 ml 690 ml Exam Constitutional: alert, oriented Head: atraumatic, normocephalic Eyes: nl conjunctiva ENMT: nl external ears & nose Neck: non-tender, supple Respiratory: clear to auscultation, normal air movement Cardiovascular: nl pulses, regular rate and rhythm Gastrointestinal: tender (ostomy with increased output) Musculoskeletal: nl extremities to inspection, nl gait and stance Extremities: normal pulses Results Result Diagram: 07/22/16 1040 07/24/16 0505 Results 24 hrs Laboratory Tests Test 07/24/16 05:05 Alanine Aminotransferase (ALT/SGPT) 24 Albumin 2.9 L Albumin/Globulin Ratio 1.03 Alkaline Phosphatase 52 Anion Gap 14 Aspartate Amino Transf (AST/SGOT) 30 Blood Urea Nitrogen 10 Calcium Level 8.5 Carbon Dioxide Level 29 Chloride Level 104 Creatinine 0.54 Direct Bilirubin 0.00 Globulin 2.80 Glucose Level 106 Indirect Bilirubin 0.0 Magnesium Level 1.2 L Potassium Level 3.6 Sodium Level 143 Total Bilirubin 0.0 L Total Protein 5.7 L Medications Medications Current Medications Hydroxyzine HCl 10 mg 10 mg Q6H PRN GTB ITCHING Last administered on 07/23/16 21:42; Admin Dose 10 MG; Start 07/21/16 at 22:30 Potassium Chloride/Sodium Chloride (NS-KCl 20 Meq) 1,000 ml @ 80 mls/hr [id number] IV Last administered on 07/24/16 05:15; Admin Dose 80 MLS/HR; Start at 15:30 Potassium Chloride (Klor-Con 10) 30 meq DAILY PO Last administered on 08:39; Admin Dose 30 MEQ; Start 07/23/16 at 16:00 Magnesium Chloride 64 mg 64 mg BID PO Last administered on 07/24/16 08:39; Admin Dose 64 MG; Start 07/23/16 at 21:00 Magnesium Sulfate (Magnesium Sulfate 4 Gm/100 ml) 100 ml @ 25 mls/hr ONCE ONCE IVPB ; Start 07/24/16 at 11:00; Stop 07/24/16 at 14:59 PADMINI SHERIFF M.D. Jul 24, 2016 09:57
[2016-07-24] MEDS ORDERED: MAGNESIUM SULFATE 4 GM/100 ML 100 ML IVPB ONE (11:00)
--- NOTE | 2016-07-24 17:26 | PN ---
Date/Time of Note Date/Time of Note DATE: 07/24/16 TIME: 17:17 Assessment/Plan VTE Prophylaxis VTE Prophylaxis Intervention: SCD's Lines/Catheters IV C[facility]ter Type (from [facility]): Peripheral IV Urinary Cath still in place: No Assessment/Plan Chief Complaint/Hosp Course 1. Hirschsprung disease, status post colostomy. 2. Severe hyponatremia on admission, resolved. 3. Hypokalemia, potassium replaced 4. Hypomagnesemia, mag replaced. Patient continues to have a large amount of stool, will monitor electrolytes and Mag for 1 more day, if stable electrolytes anticipate discharge home tomorrow. Follow-up with Dr. Lin for anemia as an outpatient. Further recommendations based on clinical course. Plan of care discussed with Dr. Peaz Problems: Subjective 24 Hr Interval Summary Free Text/Dictation Patient feels comfortable, still has large amounts of output via colostomy, with hypomagnesemia today, replaced. Exam/Review of Systems Vital Signs Vitals Vital Signs Date Time Temp Pulse Resp B/P Pulse Ox O2 Delivery O2 Flow Rate FiO2 07/24/16 07:45 98.3 99 16 92/50 100 07/23/16 15:46 Room Air Intake and Output 07/23/16 07/23/16 07/24/16 15:00 23:00 07:00 Intake Total 1990 ml 1240 ml Output Total 450 ml 1380 ml 550 ml Balance -450 ml 610 ml 690 ml Exam Constitutional: alert, oriented Psych: no complaints Head: atraumatic, normocephalic Eyes: nl conjunctiva ENMT: nl external ears & nose Neck: non-tender, supple Respiratory: clear to auscultation, normal air movement Cardiovascular: other (Tachycardia), regular rate and rhythm Gastrointestinal: soft Extremities: normal pulses 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: MEDICAL ASSOCIATE II-XII 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 Skin: nl turgor Results Result Diagram: 07/22/16 1040 07/24/16 0505 Results 24 hrs Laboratory Tests Test 07/24/16 05:05 Alanine Aminotransferase (ALT/SGPT) 24 Albumin 2.9 L Albumin/Globulin Ratio 1.03 Alkaline Phosphatase 52 Anion Gap 14 Aspartate Amino Transf (AST/SGOT) 30 Blood Urea Nitrogen 10 Calcium Level 8.5 Carbon Dioxide Level 29 Chloride Level 104 Creatinine 0.54 Direct Bilirubin 0.00 Globulin 2.80 Glucose Level 106 Indirect Bilirubin 0.0 Magnesium Level 1.2 L Potassium Level 3.6 Sodium Level 143 Total Bilirubin 0.0 L Total Protein 5.7 L Medications Medications Current Medications Hydroxyzine HCl 10 mg 10 mg Q6H PRN GTB ITCHING Last administered on 07/23/16 21:42; Admin Dose 10 MG; Start 07/21/16 at 22:30 Potassium Chloride/Sodium Chloride (NS-KCl 20 Meq) 1,000 ml @ 80 mls/hr [id number] IV Last administered on 07/24/16 05:15; Admin Dose 80 MLS/HR; Start at 15:30 Potassium Chloride (Klor-Con 10) 30 meq DAILY PO Last administered on 08:39; Admin Dose 30 MEQ; Start 07/23/16 at 16:00 Magnesium Chloride (Mag 64) 64 mg BID PO Last administered on 07/24/16 08:39; Admin Dose 64 MG; Start 07/23/16 at 21:00 ROMI ESPINO Jul 24, 2016 17:26
[2016-07-24 21:04] VITALS: BP 98/57; RESP 17
[2016-07-25] MEDS: NS + KCL 20 MEQ 1,000 ML IV SCH ×2 (05:00→14:57)
[2016-07-25 05:48] LABS: POTASSIUM 4.3 mmol/L (3.5-5.1)
[2016-07-25 05:51] LABS: CREATININE 0.56 mg/dl (0.44-1.00)
[2016-07-25 05:52] LABS: CALCIUM 8.8 mg/dl (8.4-10.2); MAGNESIUM 1.6 mg/dl (1.7-2.5)
[2016-07-25 08:10] VITALS: BP 91/54; RESP 19
[2016-07-25] MEDS: MAGNESIUM CHLORIDE (SR) 64 MG TAB PO SCH ×2 (09:00→20:38)
[2016-07-25] MEDS: POTASSIUM CHLORIDE 20 MEQ POWDER FOR ORAL SOLN PO SCH (09:00)
--- NOTE | 2016-07-25 10:19 | CONS ---
Date/Time of Note Date/Time of Note DATE: 07/25/16 TIME: :17 Assessment/Plan Assessment/Plan Chief Complaint/Hosp Course 41 yo female with h/o iron deficiency anemia and Hirschsprung's disease who now presents with severe hyponatremia and hyperkalemia secondary to dehydration and potassium supplementation. Na and K now within normal limits -continue IV fluids per primary team -cont to monitor electrolytes. appreciate recs from primary team regarding K and Mag supplementation. will continue this as an out patient. pt is currently on Mag 64mg BID and KCL 30meq q day -continue to monitor Hg. Pt currently not anemic and does not need IV iron Approximately 40 min were spent at patient's bedside and in coordination of her care Problems: Consultation Date/Type/Reason Admit Date/Time Jul 19, 2016 at 12:15 Initial Consult Date 07/19/16 Type of Consultation: hematology Reason for Consultation iron deficiency anemia Referring Provider: CARLOS RODRIGUEZ MD 24 HR Interval Summary Free Text/Dictation had a lot of abdominal pain after taking Magnesium yesterday with watery stool. abdominal pain has now resolved Exam/Review of Systems Vital Signs Vitals Vital Signs Date Time Temp Pulse Resp B/P Pulse Ox O2 Delivery O2 Flow Rate FiO2 07/25/16 08:10 97.1 97 19 91/54 98 07/23/16 15:46 Room Air Intake and Output 07/24/16 07/24/16 07/25/16 15:00 23:00 07:00 Intake Total 2230 ml 1220 ml Output Total 1650 ml 1900 ml Balance 580 ml -680 ml Exam Constitutional: alert, frail, oriented Psych: no complaints Head: atraumatic, normocephalic Eyes: nl conjunctiva ENMT: nl external ears & nose Neck: non-tender, supple Respiratory: clear to auscultation, normal air movement Cardiovascular: regular rate and rhythm Gastrointestinal: other (ostimy in place with stool) Musculoskeletal: nl extremities to inspection Extremities: normal pulses Results Result Diagram: 07/22/16 1040 07/25/16 0443 Results 24 hrs Laboratory Tests Test 07/25/16 04:43 Anion Gap 13 Blood Urea Nitrogen 13 Calcium Level 8.8 Carbon Dioxide Level 31 Chloride Level 102 Creatinine 0.56 Glucose Level 108 Magnesium Level 1.6 L Potassium Level 4.3 Sodium Level 142 Medications Medications Current Medications Hydroxyzine HCl 10 mg 10 mg Q6H PRN GTB ITCHING Last administered on 07/23/16 21:42; Admin Dose 10 MG; Start 07/21/16 at 22:30 Potassium Chloride/Sodium Chloride (NS-KCl 20 Meq) 1,000 ml @ 80 mls/hr [id number] IV Last administered on 07/24/16 22:14; Admin Dose 80 MLS/HR; Start at 15:30 Potassium Chloride (Potassium Chloride Pwd/Soln) 30 meq DAILY PO Last administered on 07/25/16 09:00; Admin Dose 30 MEQ; Start 07/25/16 at 09:00 Magnesium Chloride (Mag 64) 128 mg BID PO Last administered on 07/25/16 09:00 ; Admin Dose 128 MG; Start 07/25/16 at 09:00 PADMINI SHERIFF M.D. Jul 25, 2016 10:19
--- NOTE | 2016-07-25 18:08 | PN ---
Date/Time of Note Date/Time of Note DATE: 07/25/16 TIME: 18:06 Assessment/Plan Lines/Catheters IV Catheter Type (from [facility]): Peripheral IV Urinary Cath still in place: No Assessment/Plan Assessment/Plan 1. Hirschsprung disease, status post colostomy. 2. Severe hyponatremia on admission, resolved. 3. Hypokalemia, potassium replaced 4. Hypomagnesemia, mag replaced. Patient continues to have a large amount of stool, will monitor electrolytes and Mag for 1 more day, if stable electrolytes anticipate discharge home tomorrow. Follow-up with Dr. Lin for anemia as an outpatient. Further recommendations based on clinical course. Plan of care discussed with Dr. Paez Subjective 24 Hr Interval Summary Free Text/Dictation NAD. Exam/Review of Systems Vital Signs Vitals Vital Signs Date Time Temp Pulse Resp B/P Pulse Ox O2 Delivery O2 Flow Rate FiO2 07/25/16 08:10 97.1 97 19 91/54 98 07/23/16 15:46 Room Air Intake and Output 07/24/16 07/24/16 07/25/16 15:00 23:00 07:00 Intake Total 2230 ml 1220 ml Output Total 1650 ml 1900 ml Balance 580 ml -680 ml Exam Constitutional: alert, oriented, other Psych: nl mood/affect Head: atraumatic Eyes: EOMI ENMT: nl external ears & nose Neck: non-tender Respiratory: clear to auscultation Cardiovascular: nl pulses Gastrointestinal: non-tender, soft Musculoskeletal: nl extremities to inspection Extremities: normal pulses 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: nl mental status Lymph: nontender Results Result Diagram: 07/22/16 1040 07/25/16 0443 Results 24 hrs Laboratory Tests Test 07/25/16 04:43 Anion Gap 13 Blood Urea Nitrogen 13 Calcium Level 8.8 Carbon Dioxide Level 31 Chloride Level 102 Creatinine 0.56 Glucose Level 108 Magnesium Level 1.6 L Potassium Level 4.3 Sodium Level 142 Medications Medications Current Medications Hydroxyzine HCl 10 mg 10 mg Q6H PRN GTB ITCHING Last administered on 07/23/16 21:42; Admin Dose 10 MG; Start 07/21/16 at 22:30 Potassium Chloride/Sodium Chloride (NS-KCl 20 Meq) 1,000 ml @ 80 mls/hr [id number] IV Last administered on 07/25/16 14:57; Admin Dose 80 MLS/HR; Start at 15:30 Potassium Chloride (Potassium Chloride Pwd/Soln) 30 meq DAILY PO Last administered on 07/25/16 09:00; Admin Dose 30 MEQ; Start 07/25/16 at 09:00 Magnesium Chloride (Mag 64) 128 mg BID PO Last administered on 07/25/16 09:00 ; Admin Dose 128 MG; Start 07/25/16 at 09:00 DEVENDRA GOMES Jul 25, 2016 18:08
[2016-07-25 20:53] VITALS: BP 99/55; RESP 18
[2016-07-26] MEDS: NS + KCL 20 MEQ 1,000 ML IV SCH ×2 (03:53→17:58)
[2016-07-26 06:57] LABS: POTASSIUM 4.2 mmol/L (3.5-5.1)
[2016-07-26 07:00] LABS: CREATININE 0.56 mg/dl (0.44-1.00)
[2016-07-26 07:01] LABS: MAGNESIUM 1.3 mg/dl (1.7-2.5)
[2016-07-26 07:44] VITALS: BP 122/73; RESP 18
[2016-07-26] MEDS: MAGNESIUM CHLORIDE (SR) 64 MG TAB PO SCH ×2 (09:48→20:56)
[2016-07-26] MEDS: POTASSIUM CHLORIDE 20 MEQ POWDER FOR ORAL SOLN PO SCH (09:50)
--- NOTE | 2016-07-26 12:28 | CONS ---
Date/Time of Note Date/Time of Note DATE: 07/26/16 TIME: 12:24 Assessment/Plan Assessment/Plan Chief Complaint/Hosp Course 41 yo female with h/o iron deficiency anemia and Hirschsprung's disease who now presents with severe hyponatremia and hyperkalemia secondary to dehydration and potassium supplementation. Na and K now within normal limits -continue IV fluids per primary team -cont to monitor electrolytes. appreciate recs from primary team regarding K and Mag supplementation. will continue this as an out patient. pt is currently on Mag 64mg BID and KCL 30meq q day -continue to monitor Hg. Pt currently not anemic and does not need IV iron Approximately 40 min were spent at patient's bedside and in coordination of her care Problems: Consultation Date/Type/Reason Admit Date/Time Jul 19, 2016 at 12:15 Initial Consult Date 07/19/16 Type of Consultation: hematology Reason for Consultation Hirschsprung disease Referring Provider: CARLOS RODRIGUEZ MD 24 HR Interval Summary Free Text/Dictation no acute overnight events. patient is tolerating electrolyte replacement Exam/Review of Systems Vital Signs Vitals Vital Signs Date Time Temp Pulse Resp B/P Pulse Ox O2 Delivery O2 Flow Rate FiO2 07/26/16 07:44 98.2 63 18 122/73 96 07/23/16 15:46 Room Air Intake and Output 07/25/16 07/25/16 07/26/16 15:00 23:00 07:00 Intake Total 520 ml 1830 ml Output Total 600 ml 1040 ml 1650 ml Balance -600 ml -520 ml 180 ml Exam Constitutional: alert, oriented Psych: no complaints Head: atraumatic, normocephalic Eyes: nl conjunctiva ENMT: nl external ears & nose Neck: non-tender, supple Respiratory: clear to auscultation, normal air movement Cardiovascular: nl pulses, regular rate and rhythm Gastrointestinal: soft Musculoskeletal: nl extremities to inspection, nl gait and stance Extremities: normal pulses Results Result Diagram: 07/22/16 1040 07/26/16 0440 Results 24 hrs Laboratory Tests Test 07/26/16 04:40 Anion Gap 16 Blood Urea Nitrogen 14 Calcium Level 9.0 Carbon Dioxide Level 31 Chloride Level 102 Creatinine 0.56 Glucose Level 82 Magnesium Level 1.3 L Potassium Level 4.2 Sodium Level 145 H Medications Medications Current Medications Hydroxyzine HCl 10 mg 10 mg Q6H PRN GTB ITCHING Last administered on 07/23/16 21:42; Admin Dose 10 MG; Start 07/21/16 at 22:30 Potassium Chloride/Sodium Chloride (NS-KCl 20 Meq) 1,000 ml @ 80 mls/hr [id number] IV Last administered on 07/26/16 03:53; Admin Dose 80 MLS/HR; Start at 15:30 Potassium Chloride (Potassium Chloride Pwd/Soln) 30 meq DAILY PO Last administered on 07/26/16 09:50; Admin Dose 30 MEQ; Start 07/25/16 at 09:00 Magnesium Chloride (Mag 64) 128 mg BID PO Last administered on 07/26/16 09:48 ; Admin Dose 128 MG; Start 07/25/16 at 09:00 PADMINI SHERIFF M.D. Jul 26, 2016 12:28
[2016-07-26] MEDS ORDERED: POTA20PA23 PO (16:52)
[2016-07-26] MEDS ORDERED: SLOMAG PO (16:52)
[2016-07-26] MEDS ORDERED: MAGNESIUM SULFATE 3 GM in SOD CHLORIDE 0.9% 100 ML IVPB ONE (17:00)
[2016-07-26 21:13] VITALS: BP 83/50; RESP 18
[2016-07-26 21:45] VITALS: BP 90/56; RESP 18
--- NOTE | 2016-07-30 12:58 | DS ---
DATE OF ADMISSION: 07/19/2016 DATE OF DISCHARGE: 07/26/2016 FINAL DIAGNOSES: 1. Hirschsprung disease status post colostomy. 2. Severe hypernatremia on admission, resolved. 3. Hypokalemia, resolved. 4. Hypomagnesemia, status post replacement. BRIEF HISTORY: The patient is a 41-year-old female with history of Hirschsprung disease and colosto my. The patient presented to the emergency room with generalized weakness and fatigue. The patient was noted to have severe hyponatremia and was admitted for evaluation and management. HOSPITAL COURSE: The patient was given IV fluids. The patient was evaluated and followed by Dr. Kavya philip in hematology/oncology consultation. The patient's electrolytes were closely monitored. The andreas ojeda was given potassium and magnesium supplementation. The patient's sodium was closely monitored and was within improved and was within normal limits; however, the patient still required potassium and magnesium replacement. Overall the patient's condition improved, and the patient was discharge d home. CONDITION ON DISCHARGE: Hemodynamically stable. ACTIVITY: As patient tolerates. DIET: Regular diet. DISCHARGE MEDICATIONS: The patient is given a prescription for: 1. Mag 64 128 mg p.o. b.i.d. for 14 days. 2. Potassium chloride mEq p.o. daily. The patient is to continue his home medications: 1. ProAir. 2. Vitamin B12. 3. Pepcid. 4. Fluticasone. 5. Vistaril. 6. Loratadine. 7. Nicotine. 8. Triamcinolone ointment, topical. DISCHARGE INSTRUCTIONS: The patient is instructed to follow up with Dr. Flaherty in 1 week. A BMP and magnesium in 1 week. The patient is also instructed to follow up with primary care physician. Int erdisciplinary plan of care was established for this patient. Plan of care was discussed with Dr. Cady mcnair. Dictated By: ROMI ESPINO AUCTION BLOCK CLERK for CARLOS RODRIGUEZ MD, SR/CRISTINA Conf#: [id number] DID#: [id number]
== END 2016-07-26 23:06 | disposition home or self-care (01) | DRG 641 ==
LOC: E/R 07:00 → MS4 12:15 → PP2 07-23 18:47
PROVIDERS: ADMIT Internal Medicine; ATTEND Internal Medicine
DX: E87.1 Hypo-osmolality and hyponatremia (principal); E86.0 Dehydration; Q43.1 Hirschsprung's disease; E87.6 Hypokalemia; E83.42 Hypomagnesemia; Z93.3 Colostomy status; D50.9 Iron deficiency anemia, unspecified
CPT/HCPCS: 71010; 80048; 80053; 81001; 81003; 82436; 82533; 83690; 83735; 83930; 83935; 84133; 84300; 84484; 85025; 85610; 85730; 87081; 93005; J3475; J3480; J7030

== ENCOUNTER 2016-07-31 14:30 | Inpatient (IN) | payer OTHER ==
[~2016-07-31] VITALS: Ht 147.3 cm; Wt 36.5 kg
[~2016-07-31 14:30] MED LIST changes: +POTA20PA23 PO; +SLOMAG PO
[2016-07-31] MEDS ORDERED: ONDANSETRON 4 MG INJ IV STA (17:45)
[2016-07-31 18:36] LABS: BASOPHILS % 0.4 % (0.0-2.0); EOSINOPHILS # 0.2 10^3/ul (0.0-0.5); EOSINOPHILS % 2.1 % (0.0-7.0); HEMATOCRIT 46.6 % (37.0-47.0); HEMOGLOBIN 15.6 g/dl (12.0-16.0); LYMPHOCYTES # 0.7 10^3/ul (0.8-2.9); LYMPHOCYTES % 6.5 % (15.0-51.0); MEAN CORPUSCULAR HEMOGLOBIN 29.4 pg (29.0-33.0); MEAN CORPUSCULAR HGB CONC 33.4 g/dl (32.0-37.0); MEAN PLATELET VOLUME 7.4 fl (7.4-10.4); MONOCYTE # 0.5 10^3/ul (0.3-0.9); MONOCYTES % 5.3 % (0.0-11.0); NEUTROPHIL # 8.7 10^3/ul (1.6-7.5); NEUTROPHILS % 85.7 % (39.0-77.0); PLATELET COUNT 610 10^3/UL (140-440); RED CELL DISTRIBUTION WIDTH 14.4 % (11.5-14.5); UNCORRECTED WBC 10.2 10^3/ul (4.8-10.8); WHITE BLOOD COUNT 10.2 10^3/ul (4.8-10.8)
[2016-07-31 18:39] LABS: CONDITION 1
--- NOTE | 2016-07-31 18:48 | RADRPT ---
PROCEDURE: XR Chest. CLINICAL INDICATION: Chest pain TECHNIQUE: Single frontal view of the chest. COMPARISON: 07/19/2016 chest radiograph. FINDINGS: The lungs are clear. No pleural effusion or pneumothorax. The cardiomediastinal silhouette is unremarkable. No acute osseous abnormalities. IMPRESSION: No acute abnormalities. Unchanged from the previous examination. RPTAT: AADD .Royer Fernandez MD, MD Date Time Electronically viewed and signed by .Royer Fernandez MD, on 07/31/2016 18:47 .B/
[2016-07-31 18:49] LABS: CHLORIDE 86 mmol/L (97-110); SODIUM 121 mmol/L (135-144)
[2016-07-31 18:52] LABS: ANION GAP 29 (8-16); BLOOD UREA NITROGEN 77 mg/dl (7-20); CARBON DIOXIDE 13 mmol/L (21-31); CREATININE 1.29 mg/dl (0.44-1.00); GLUCOSE 114 mg/dl (70-220)
[2016-07-31 18:53] LABS: CALCIUM 10.4 mg/dl (8.4-10.2)
[2016-07-31 19:08] LABS: POTASSIUM 6.5 mmol/L (3.5-5.1)
[2016-07-31 19:09] LABS: TROPONIN-I < 0.012 ng/ml (0.00-0.12)
[2016-07-31 19:15] LABS: ADD UMIC YES; URINE BILIRUBIN (Dip) NEGATIVE (NEGATIVE); URINE BLOOD (Dip) TRACE (NEGATIVE); URINE COLOR LT. YELLOW (YELLOW); URINE GLUCOSE (Dip) NEGATIVE (NEGATIVE); URINE KETONES (Dip) NEGATIVE (NEGATIVE); URINE LEUKOCYTE ESTERASE (Dip) NEGATIVE (NEGATIVE); URINE NITRITE (Dip) NEGATIVE (NEGATIVE); URINE TOTAL PROTEIN (Dip) 1+ (NEGATIVE); URINE UROBILINOGEN (Dip) 0.2 E.U./dL (0.1-1.0)
[2016-07-31] MEDS ORDERED: NA POLYST SULFON 15 GM/60 ML BTL PO STA (19:18)
[2016-07-31] MEDS ORDERED: DEXTROSE 50% 50 ML SYRINGE IV STA (19:18)
[2016-07-31] MEDS ORDERED: ALBUTEROL 0.5% (NEB) 2.5 MG/0.5 ML AMP INH STA (19:18)
[2016-07-31] MEDS ORDERED: INSULIN REGULAR, HUMAN 100 UNIT/1 ML 3ML VIAL IV STA (19:18)
[2016-07-31] MEDS ORDERED: SOD CHLORIDE 0.9% 1,000 ML IV STA ×3 (19:20→19:31)
[2016-07-31] MEDS ORDERED: ONDANSETRON 4 MG INJ IV PRN ×2 (19:30→23:00)
[2016-07-31] MEDS ORDERED: ACETAMINOPHEN 325 MG TAB PO PRN ×2 (19:30→23:00)
[2016-07-31 19:38] LABS: BACTERIA,URINE FEW; SQUAMOUS EPITHELIAL CELL,UR FEW; URINE RBCS NONE SEEN /HPF (0)
[2016-07-31 19:54] VITALS: TEMP 98.9
--- NOTE | 2016-07-31 20:08 | ERA ---
ER Documentation Chief Complaint Date/Time DATE: 07/31/16 TIME: 20:02 Chief Complaint Vomiting, hearburn, neck pain X 2 days. HPI Patient is a 41-year-old female with history of anemia as well as hyponatremia and Hirschsprung's disease who presents with "heartburn". She also has neck pain. She has had hiccups. She says that she has been drinking a lot of water but is having vomiting. She does have a colostomy. She said the symptoms started yesterday afternoon. Upon review of old medical records this is the patient's third visit since October 2015. She was recently admitted for hyponatremia. Her primary doctors Dr. Paez and her communications equipment operator is Dr. Flaherty. ROS All systems reviewed and are negative except as per history of present illness. Medications Home Meds Active Scripts Potassium Chloride (Potassium Chloride) 20 Meq Packet, 30 MEQ PO DAILY for 14 Days, PACKET Prov:ROMI ESPINO 07/26/16 Magnesium Chloride* (Mag 64*) 64 Mg Tabsr, 128 MG PO BID for 14 Days, TAB Prov:ROMI ESPINO 07/26/16 Reported Medications Hydroxyzine Pamoate* (Vistaril*) 25 Mg Capsule, 25 MG PO QHS Y for ITCHING, CAP 11/02/15 Nystatin-Triamcinolone* (Nystatin-Triamcinolone* Oint) 15 Gm Oint..gm., 1 APPLIC TOP DAILY, TUB 11/02/15 Albuterol Sulfate* (Proair HFA*) 8.5 Gm Hfa.aer.ad, 2 PUFF INH Q4H Y for WHEEZING AND SOB, #1 INHALER 11/02/15 Loratadine* (Loratadine*) 10 Mg Tablet, 10 MG PO DAILY, TAB 11/02/15 Folic Acid* (Folic Acid*) 1 Mg Tablet, 1 MG PO DAILY, TAB 11/02/15 Fluticasone Propionate* (Fluticasone Propionate* Nasal) 50 Mcg/[place] - 16 Gm [place].susp, 1 SPRAY NASAL DAILY Y for ALLERGIC REACTION, BOTTLE TO EACH NOSTRIL 11/02/15 Famotidine* (Famotidine*) 20 Mg Tablet, 20 MG PO BID, TAB 11/02/15 Cyanocobalamin* (Vitamin B-12* Inj) 1,000 Mcg/Ml Vial, 1000 MCG IM Q28D, VIAL 11/02/15 Allergies Allergies: Coded Allergies: ferrous sulfate (Verified Allergy, Severe, 07/31/16) ANY FORM OF FERROUS codeine (Verified Allergy, Unknown, 07/31/16) PMhx/Soc History of Surgery: Yes (COLON REMOVED W/ ILEOSTOMY) Anesthesia Reaction: No Hx 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 Disorder: No Hx Respiratory Disorders: No Hx Cardiac Disorders: No Hx Psychiatric Problems: No Hx Miscellaneous Medical Probl: Yes (HIRSCHPRUNG'S DISEASE, ANEMIA) Hx Alcohol Use: No Hx Substance Use: No Hx Tobacco Use: No Smoking Status: Never smoker FmHx Family History: diabetes Physical Exam Vitals Vital Signs Date Time Temp Pulse Resp B/P Pulse Ox O2 Delivery O2 Flow Rate FiO2 07/31/16 19:56 108 18 100 21 07/31/16 19:54 98.9 109 15 105/77 99 Room Air 07/31/16 19:00 96 16 105/81 99 Room Air 07/31/16 14:49 97.7 136 20 93/58 100 Physical Exam Const: No acute distress Head: Atraumatic Eyes: Normal Conjunctiva ENT: Normal External Ears, Nose and Mouth. Neck: Full range of motion..~ No meningismus. Resp: Clear to auscultation bilaterally Cardio: Tachycardia without murmur Abd: Soft, non tender, non distended. Normal bowel sounds Skin: No petechiae or rashes Back: No midline or flank tenderness Ext: No cyanosis, or edema Neur: Awake and alert Psych: Normal Mood and Affect Result Diagram: 07/31/16 1825 07/31/16 182 Results 24 hrs Laboratory Tests Test 07/31/16 18:25 07/31/16 19:00 07/31/16 19:31 Anion Gap 29 Basophils # 0.010^3/ul Basophils % 0.4% Blood Morphology Comment Blood Urea Nitrogen 77mg/dl Calcium Level 10.4mg/dl Carbon Dioxide Level 13mmol/L Chloride Level 86mmol/L Creatinine 1.29mg/dl Eosinophils # 0.210^3/ul Eosinophils % 2.1% Glucose Level 114mg/dl Hematocrit 46.6% Hemoglobin 15.6g/dl Lymphocytes # 0.710^3/ul Lymphocytes % 6.5% Mean Corpuscular Hemoglobin 29.4pg Mean Corpuscular Hemoglobin Concent 33.4g/dl Mean Corpuscular Volume 88.0fl Mean Platelet Volume 7.4fl Monocytes # 0.510^3/ul Monocytes % 5.3% Neutrophils # 8.710^3/ul Neutrophils % 85.7% Nucleated Red Blood Cells # 0.010^3/ul Nucleated Red Blood Cells % 0.0/100WBC Platelet Count 69434^3/UL Potassium Level 6.5mmol/L Red Blood Count 5.3010^6/ul Red Cell Distribution Width 14.4% Sodium Level 121mmol/L Troponin I < 0.012ng/ml White Blood Count 10.210^3/ul Serum HCG, Qualitative NEGATIVE Urine Bacteria FEW Urine Bilirubin NEGATIVE Urine Clarity CLEAR Urine Color LT. YELLOW Urine Fine Granular Casts RARE Urine Glucose NEGATIVE% Urine Hemoglobin TRACE Urine Ketones NEGATIVE Urine Leukocyte Esterase NEGATIVE Urine Microscopic RBC NONE SEEN/HPF Urine Microscopic WBC 0-2/HPF Urine Nitrite NEGATIVE Urine Specific [place] 1.020 Urine Squamous Epithelial Cells FEW Urine Total Protein 1+ Urine Urobilinogen 0.2 E.U./dL Urine pH 6.0 Bedside Glucose 119mg/dL Current Medications Medications (Trade) Dose Ordered Sig/Elvie Route PRN Reason Start Time Stop Time Status Last Admin Dose Admin Ondansetron HCl (Zofran Inj) 4 mg ONCE STAT IV 07/31/16 17:45 07/31/16 17:47 DC 07/31/16 18:10 Insulin Human Regular (Humulin R) 10 unit ONCE STAT IV 07/31/16 19:18 07/31/16 19:21 DC 07/31/16 19:34 Dextrose (D50w Syringe) 50 ml ONCE STAT IV 07/31/16 19:18 07/31/16 19:21 DC 07/31/16 19:28 Sodium Polystyrene Sulfonate (Kayexalate) 30 gm ONCE STAT PO 07/31/16 19:18 07/31/16 19:21 DC 07/31/16 19:28 Albuterol 15 mg 15 mg ONCE STAT INH 07/31/16 19:18 07/31/16 19:21 DC 07/31/16 19:56 Sodium Chloride 1,000 ml @ 1,000 mls/hr Q1H STAT IV 07/31/16 19:20 07/31/16 20:19 07/31/16 19:28 Sodium Chloride (NS) 1,000 ml @ 1,000 mls/hr Q1H STAT IV 07/31/16 19:22 07/31/16 20:21 07/31/16 19:28 Ondansetron HCl (Zofran Inj) 4 mg ER BRIDGE PRN IV NAUSEA AND/OR VOMITING 07/31/16 19:30 08/01/16 19:29 Acetaminophen 650 mg 650 mg ER BRIDGE PRN PO MILD PAIN/FEVER 07/31/16 19:30 08/01/16 19:29 Sodium Chloride (NS) 1,000 ml @ 150 mls/hr Q6H40M STAT IV 07/31/16 19:31 08/01/16 02:10 Procedures/MDM EKG read by me: Rate/Rhythm: Sinus tachycardia at a rate of 118 Intervals: Normal Impression: Tachycardia without evidence of ischemia Chest x-ray shows no pneumonia per radiology. Patient is a 41-year-old female with Hirschsprung's disease who presents with multiple electrolyte abnormalities. She was found to have hyperkalemia as well as hyponatremia. She has dehydration as well as acidosis. She will need admission. I believe fluid resuscitation will help with her electrolyte abnormalities and she was given 2 L of normal saline and then will be continued on 150 mL of normal saline maintenance. I spoke to Dr. Paez who will admit the patient to a telemetry bed. Critical Care: Time: 35 minutes excluding all billable procedures. Treatments/Evaluations: Close monitoring and treatment of unstable vital signs, cardiorespiratory, and neurologic status, while maintaining tight balance of fluid, respiratory, and cardiac interventions. Departure Diagnosis: Primary Impression: Acidosis Additional Impressions: Hyponatremia Dehydration Hyperkalemia Condition: Serious BOLIVAR UNGER MD Jul 31, 2016 20:08
[2016-07-31] MEDS ORDERED: LIDOCAINE 1% (MDV) 20 ML INJ SC ONE (20:30)
[2016-07-31 20:52] VITALS: PULSE 119
[2016-07-31 21:00] VITALS: BP 105/56; PULSE 120; RESP 18
[2016-07-31 21:15] VITALS: Ht 147.3 cm; Wt 36.5 kg
[2016-07-31] MEDS ORDERED: LORAZEPAM 2 MG INJ IV PRN (23:00)
[2016-07-31] MEDS: DIPHENHYDRAMINE 50 MG INJ IV PRN (23:50)
[2016-07-31] MEDS: SOD CHLORIDE 0.9% 1,000 ML IV SCH (23:55)
[2016-07-31] MEDS: FAMOTIDINE 20 MG TAB PO SCH (23:56)
[2016-08-01] VITALS (12 sets, daily range): BP systolic 94–109; BP diastolic 53–67; PULSE 85–144; RESP 16–20
[2016-08-01] MEDS: SOD CHLORIDE 0.9% 1,000 ML IV SCH ×3 (06:16→23:00)
[2016-08-01 07:45] LABS: EOSINOPHILS % 0.3 % (0.0-7.0); HEMATOCRIT 43.6 % (37.0-47.0); HEMOGLOBIN 14.7 g/dl (12.0-16.0); LYMPHOCYTES # 0.4 10^3/ul (0.8-2.9); LYMPHOCYTES % 4.7 % (15.0-51.0); MEAN CORPUSCULAR HEMOGLOBIN 29.9 pg (29.0-33.0); MEAN CORPUSCULAR HGB CONC 33.6 g/dl (32.0-37.0); MEAN CORPUSCULAR VOLUME 88.8 fl (82.0-101.0); MEAN PLATELET VOLUME 7.3 fl (7.4-10.4); MONOCYTE # 0.4 10^3/ul (0.3-0.9); MONOCYTES % 4.9 % (0.0-11.0); NEUTROPHILS % 90.1 % (39.0-77.0); PLATELET COUNT 541 10^3/UL (140-440); RED BLOOD COUNT 4.91 10^6/ul (4.20-5.40); RED CELL DISTRIBUTION WIDTH 14.4 % (11.5-14.5); UNCORRECTED WBC 8.9 10^3/ul (4.8-10.8); WHITE BLOOD COUNT 8.9 10^3/ul (4.8-10.8)
[2016-08-01 07:46] LABS: CONDITION 1; LH ANALYZER COMMENTS 1
[2016-08-01 07:59] LABS: CREATININE 1.21 mg/dl (0.44-1.00)
[2016-08-01 08:00] LABS: CALCIUM 9.1 mg/dl (8.4-10.2)
[2016-08-01] MEDS: FAMOTIDINE 20 MG TAB PO SCH ×2 (09:25→20:41)
[2016-08-01] MEDS: ENOXAPARIN 30 MG/0.3 ML SYG SC SCH (09:27)
--- NOTE | 2016-08-01 18:57 | HP ---
Date/Time of Note Date/Time of Note DATE: 08/01/16 TIME: 18:57 Assessment/Plan VTE Prophylaxis VTE Prophylaxis Intervention: LMWH, other Assessment/Plan Assessment/Plan 1. [place] 2. Severe hyponatremia on admission, resolved - nephrology consult appreciated- Maggy Doty informed - IVF - zofran for nausea 3. Dehydration IVF 4. Hypomagnesemia, magnesium replaced - continue to monitor electrolytes. 5. Anxiety - Ativan for anxiety 6. Hirschsprung disease status post colostomy. 7.Thrombocytopenia - monitor CBC - will get Hematolgy consult if remains same Further recommendations based on clinical course. Plan of care discussed with Dr. Paez HPI/ROS Admit Date/Time Admit Date/Time Jul 31, 2016 at 19:31 Hx of Present Illness Vomiting, hearburn, neck pain X 2 days. HPI Patient is a 41-year-old female with history of anemia as well as hyponatremia and Hirschsprung's disease who presents with "heartburn". She also has neck pain. She has had hiccups. She says that she has been drinking a lot of water but is having vomiting. She does have a colostomy. She said the symptoms started yesterday afternoon. Upon review of old medical records this is the patient's third visit since October 2015. She was recently admitted for hyponatremia. Her primary doctors Dr. Paez and her medicaid collection specialist is Dr. Flaherty. ROS All systems reviewed and are negative except as per history of present illness. Medications Home Meds Active Scripts Potassium Chloride (Potassium Chloride) 20 Meq Packet, 30 MEQ PO DAILY for 14 Days, PACKET Prov:ROMI ESPINO 07/26/16 Magnesium Chloride* (Mag 64*) 64 Mg Tabsr, 128 MG PO BID for 14 Days, TAB Prov:ROMI ESPINO 07/26/16 Reported Medications Hydroxyzine Pamoate* (Vistaril*) 25 Mg Capsule, 25 MG PO QHS Y for ITCHING, CAP 11/02/15 Nystatin-Triamcinolone* (Nystatin-Triamcinolone* Oint) 15 Gm Oint..gm., 1 APPLIC TOP DAILY, TUB 11/02/15 Albuterol Sulfate* (Proair HFA*) 8.5 Gm Hfa.aer.ad, 2 PUFF INH Q4H Y for WHEEZING AND SOB, #1 INHALER 11/02/15 Loratadine* (Loratadine*) 10 Mg Tablet, 10 MG PO DAILY, TAB 11/02/15 Folic Acid* (Folic Acid*) 1 Mg Tablet, 1 MG PO DAILY, TAB 11/02/15 Fluticasone Propionate* (Fluticasone Propionate* Nasal) 50 Mcg/[place] - 16 Gm [place].susp, 1 SPRAY NASAL DAILY Y for ALLERGIC REACTION, BOTTLE TO EACH NOSTRIL 11/02/15 Famotidine* (Famotidine*) 20 Mg Tablet, 20 MG PO BID, TAB 11/02/15 Cyanocobalamin* (Vitamin B-12* Inj) 1,000 Mcg/Ml Vial, 1000 MCG IM Q28D, VIAL 11/02/15 Allergies Allergies: Coded Allergies: ferrous sulfate (Verified Allergy, Severe, 07/31/16) ANY FORM OF FERROUS codeine (Verified Allergy, Unknown, 07/31/16) PMH/Family/Social Past Medical History PMhx/Soc History of Surgery: Yes (COLON REMOVED W/ ILEOSTOMY) Anesthesia Reaction: No Hx 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 Disorder: No Hx Respiratory Disorders: No Hx Cardiac Disorders: No Hx Psychiatric Problems: No Hx Miscellaneous Medical Probl: Yes (HIRSCHPRUNG'S DISEASE, ANEMIA) Hx Alcohol Use: No Hx Substance Use: No Hx Tobacco Use: No Smoking Status: Never smoker FmHx Family History: diabetes Past Surgical History Past Surgical Hx: other Social History Smoking Status: Never smoker Exam/Review of Systems Vital Signs Vitals Vital Signs Date Time Temp Pulse Resp B/P Pulse Ox O2 Delivery O2 Flow Rate FiO2 08/01/16 16:05 97 08/01/16 16:03 98.6 20 97/53 99 07/31/16 21:00 Room Air 07/31/16 19:56 21 Intake and Output 07/31/16 07/31/16 08/01/16 15:00 23:00 07:00 Intake Total 100 ml Output Total 1650 ml Balance -1550 ml Exam Constitutional: alert, oriented Psych: nl mood/affect Head: atraumatic Eyes: EOMI, PERRL, nl sclera ENMT: nl external ears & nose Neck: non-tender, supple Cardiovascular: nl pulses Gastrointestinal: non-tender, soft Musculoskeletal: nl extremities to inspection Extremities: normal pulses 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: nl mental status, nl speech Skin: other Lymph: nontender Labs Result Diagram: 08/01/1615 08/01/1615 Medications Medications Current Medications Ondansetron HCl (Zofran Inj) 4 mg Q6H PRN IV NAUSEA AND/OR VOMITING Last administered on 07/31/16 23:46; Admin Dose 4 MG; Start 07/31/16 at 23:00 Acetaminophen (Tylenol Tab) 650 mg Q4H PRN PO PAIN AND OR ELEVATED TEMP; Start 07/31/16 at 23:00 Diphenhydramine HCl (Benadryl) 25 mg Q6H PRN IV PRURITUS Last administered on 23:50; Admin Dose 25 MG; Start 07/31/16 at 23:00 Lorazepam (Ativan) 0.5 mg Q6H PRN IV ANXIETY; Start 07/31/16 at 23:00 Enoxaparin Sodium 30 mg 30 mg DAILY SC Last administered on 08/01/16 09:27; Admin Dose 30 MG; Start 08/01/16 at 09:00 Sodium Chloride (NS) 1,000 ml @ 125 mls/hr Q8H IV Last administered on 11:51; Admin Dose 125 MLS/HR; Start 07/31/16 at 23:00 Famotidine (Pepcid) 20 mg BID PO Last administered on 08/01/16 09:25; Admin Dose 20 MG; Start 08/01/16 at 00:00 Procedures Procedures EKG read by me: Rate/Rhythm: Sinus tachycardia at a rate of 118 Intervals: Normal Impression: Tachycardia without evidence of ischemia Chest x-ray shows no pneumonia per radiology. Patient is a 41-year-old female with Hirschsprung's disease who presents with multiple electrolyte abnormalities. She was found to have hyperkalemia as well as hyponatremia. She has dehydration as well as acidosis. She will need admission. I believe fluid resuscitation will help with her electrolyte abnormalities and she was given 2 L of normal saline and then will be continued on 150 mL of normal saline maintenance. I spoke to Dr. Paez who will admit the patient to a telemetry bed. Critical Care: Time: 35 minutes excluding all billable procedures. Treatments/Evaluations: Close monitoring and treatment of unstable vital signs, cardiorespiratory, and neurologic status, while maintaining tight balance of fluid, respiratory, and cardiac interventions. DEVENDRA GOMES Aug 01, 2016 18:57
[2016-08-01] MEDS ORDERED: MAGNESIUM SULFATE 1 GM/D5W 100 ML IVPB ONE (20:00)
[2016-08-02] VITALS (15 sets, daily range): BP systolic 86–108; BP diastolic 52–58; PULSE 78–100; RESP 16–20
[2016-08-02] MEDS: DIPHENHYDRAMINE 50 MG INJ IV PRN (02:51)
[2016-08-02 06:18] LABS: POTASSIUM 3.5 mmol/L (3.5-5.1)
[2016-08-02 06:21] LABS: CREATININE 0.65 mg/dl (0.44-1.00)
[2016-08-02 06:22] LABS: CALCIUM 9.1 mg/dl (8.4-10.2); MAGNESIUM 2.1 mg/dl (1.7-2.5)
[2016-08-02 06:25] LABS: BASOPHILS % 0.5 % (0.0-2.0); EOSINOPHILS # 0.2 10^3/ul (0.0-0.5); EOSINOPHILS % 4.9 % (0.0-7.0); HEMATOCRIT 36.9 % (37.0-47.0); HEMOGLOBIN 12.6 g/dl (12.0-16.0); LYMPHOCYTES # 0.5 10^3/ul (0.8-2.9); LYMPHOCYTES % 12.2 % (15.0-51.0); MEAN CORPUSCULAR HEMOGLOBIN 30.4 pg (29.0-33.0); MEAN CORPUSCULAR HGB CONC 34.3 g/dl (32.0-37.0); MEAN CORPUSCULAR VOLUME 88.5 fl (82.0-101.0); MEAN PLATELET VOLUME 7.2 fl (7.4-10.4); MONOCYTE # 0.5 10^3/ul (0.3-0.9); MONOCYTES % 12.1 % (0.0-11.0); NEUTROPHILS % 70.3 % (39.0-77.0); PLATELET COUNT 438 10^3/UL (140-440); RED BLOOD COUNT 4.17 10^6/ul (4.20-5.40); RED CELL DISTRIBUTION WIDTH 14.7 % (11.5-14.5); UNCORRECTED WBC 4.2 10^3/ul (4.8-10.8); WHITE BLOOD COUNT 4.2 10^3/ul (4.8-10.8)
[2016-08-02 06:50] LABS: CONDITION 1; LH ANALYZER COMMENTS 1
[2016-08-02] MEDS: SOD CHLORIDE 0.9% 1,000 ML IV SCH ×3 (07:00→23:35)
--- NOTE | 2016-08-02 07:54 | CONS ---
Date/Time of Note Date/Time of Note DATE: 08/02/16 TIME: 07:53 Assessment/Plan Assessment/Plan Additional Assessment/Plan 41 yo Female with 1) Pre- Renal Azotemia 2) Hyponatremia 3) Hyperkalemia 4) Metabolic Acidosis 5) Hypomagnesemia 6) Hx of Hirschsprungs 7) Hx of Colostomy Cont current IVFs, Supplement electrolytes as needed Serum Na level is now normal Hyperkalemia has resolved, Hypomagnesemia Resolved Pre-Renal Azotemia also improving and cont IVFs for another Metabolic acidosis resolved DC planning as per PCP. Ok to DC from Renal standpoint Thank you for the Opportunity to participate in the care of Ms Martin Please do not hesitate to contact me if you have any questions or concerns. Consultation Date/Type/Reason Admit Date/Time Jul 31, 2016 at 19:31 Date of Consultation: Aug 02, 2016 Type of Consultation: Nephrology Reason for Consultation MELBA Referring Provider: CARLOS RODRIGUEZ MD Hx of Present Illness 41-year-old female with history of anemia as well as hyponatremia and Hirschsprung's disease who presents with "heartburn". Hx of Colostromy. She said the symptoms started 2 days ago and they have improved. She states she is making very good UO and does not have dysuria or hematuria. Pt was also admitted recently for treatment of Hyponatremia. Nephrology consulted for MELBA and Electrolyte abnormality. all other systems reviewed and are negative. Past Medical History Potassium Chloride (Potassium Chloride) 20 Meq Packet, 30 MEQ PO DAILY for 14 Days, PACKET Prov:ROMI ESPINO 07/26/16 Magnesium Chloride* (Mag 64*) 64 Mg Tabsr, 128 MG PO BID for 14 Days, TAB Prov:ROMI ESPINO 07/26/16 Reported Medications Hydroxyzine Pamoate* (Vistaril*) 25 Mg Capsule, 25 MG PO QHS Y for ITCHING, CAP 11/02/15 Nystatin-Triamcinolone* (Nystatin-Triamcinolone* Oint) 15 Gm Oint..gm., 1 APPLIC TOP DAILY, TUB 11/02/15 Albuterol Sulfate* (Proair HFA*) 8.5 Gm Hfa.aer.ad, 2 PUFF INH Q4H Y for WHEEZING AND SOB, #1 INHALER 11/02/15 Loratadine* (Loratadine*) 10 Mg Tablet, 10 MG PO DAILY, TAB 11/02/15 Folic Acid* (Folic Acid*) 1 Mg Tablet, 1 MG PO DAILY, TAB 11/02/15 Fluticasone Propionate* (Fluticasone Propionate* Nasal) 50 Mcg/[place] - 16 Gm [place].susp, 1 SPRAY NASAL DAILY Y for ALLERGIC REACTION, BOTTLE TO EACH NOSTRIL 11/02/15 Famotidine* (Famotidine*) 20 Mg Tablet, 20 MG PO BID, TAB 11/02/15 Cyanocobalamin* (Vitamin B-12* Inj) 1,000 Mcg/Ml Vial, 1000 MCG IM Q28D, VIAL 11/02/15 Allergies Allergies: Coded Allergies: ferrous sulfate (Verified Allergy, Severe, 07/31/16) ANY FORM OF FERROUS codeine (Verified Allergy, Unknown, 07/31/16) Medical History: other (As per HPI) Past Surgical History Past Surgical Hx: other (as per HPI) Family History Significant Family History: no pertinent family hx Social History Alcohol Use: none Smoking Status: Never smoker Drug Use: none Exam/Review of Systems Vital Signs Vitals Vital Signs Date Time Temp Pulse Resp B/P Pulse Ox O2 Delivery O2 Flow Rate FiO2 08/02/16 07:23 98.2 86 18 88/54 99 07/31/16 21:00 Room Air 07/31/16 19:56 21 Intake and Output 08/01/16 08/01/16 08/02/16 15:00 23:00 07:00 Intake Total 420 ml 200 ml Output Total 400 ml 1800 ml Balance 20 ml -1600 ml Exam Constitutional: alert, frail, oriented, No distress Psych: anxiety, No confusion Head: atraumatic, normocephalic Eyes: EOMI, PERRL, nl conjunctiva, No icteric ENMT: mucosa pink and moist, nl lips & teeth Neck: supple, No jvd Respiratory: clear to auscultation, No crackles/rales, No labored breathing Cardiovascular: regular rate and rhythm, No edema Gastrointestinal: non-tender, soft, No rebound or guarding Extremities: No pitting pedal edema 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: CLIENT DEVELOPMENT 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-XII intact, nl mental status, No confused, No lethargic Skin: nl turgor, No diaphoresis Results Result Diagram: 08/02/16 0535 08/02/16 0530 Results 24 hrs Laboratory Tests Test 08/02/16 05:30 08/02/16 05:35 Anion Gap 17 #H Blood Urea Nitrogen 22 #H Calcium Level 9.1 Carbon Dioxide Level 24 Chloride Level 104 # Creatinine 0.65 Glucose Level 65 #L Magnesium Level 2.1 Potassium Level 3.5 Sodium Level 141 Basophils # 0.0 Basophils % 0.5 Blood Morphology Comment Eosinophils # 0.2 Eosinophils % 4.9 Hematocrit 36.9 L Hemoglobin 12.6 Lymphocytes # 0.5 L Lymphocytes % 12.2 L Mean Corpuscular Hemoglobin 30.4 Mean Corpuscular Hemoglobin Concent 34.3 Mean Corpuscular Volume 88.5 Mean Platelet Volume 7.2 L Monocytes # 0.5 Monocytes % 12.1 H Neutrophils # 3.0 Neutrophils % 70.3 Nucleated Red Blood Cells # 0.0 Nucleated Red Blood Cells % 0.0 Parathyroid Hormone (Intact) Platelet Count 438 Red Blood Count 4.17 L Red Cell Distribution Width 14.7 H White Blood Count 4.2 #L Medications Medications Current Medications Ondansetron HCl (Zofran Inj) 4 mg Q6H PRN IV NAUSEA AND/OR VOMITING Last administered on 07/31/16 23:46; Admin Dose 4 MG; Start 07/31/16 at 23:00 Acetaminophen (Tylenol Tab) 650 mg Q4H PRN PO PAIN AND OR ELEVATED TEMP; Start 07/31/16 at 23:00 Diphenhydramine HCl (Benadryl) 25 mg Q6H PRN IV PRURITUS Last administered on 02:51; Admin Dose 25 MG; Start 07/31/16 at 23:00 Lorazepam (Ativan) 0.5 mg Q6H PRN IV ANXIETY; Start 07/31/16 at 23:00 Enoxaparin Sodium 30 mg 30 mg DAILY SC Last administered on 08/01/16 09:27; Admin Dose 30 MG; Start 08/01/16 at 09:00 Sodium Chloride (NS) 1,000 ml @ 125 mls/hr Q8H IV Last administered on 23:00; Admin Dose 125 MLS/HR; Start 07/31/16 at 23:00 Famotidine (Pepcid) 20 mg BID PO Last administered on 1/19/17at 20:41; Admin Dose 20 MG; Start 08/01/16 at 00:00 Procedures Procedures PROCEDURE: XR Chest. CLINICAL INDICATION: Chest pain TECHNIQUE: Single frontal view of the chest. COMPARISON: 07/19/2016 chest radiograph. FINDINGS: The lungs are clear. No pleural effusion or pneumothorax. The cardiomediastinal silhouette is unremarkable. No acute osseous abnormalities. IMPRESSION: No acute abnormalities. Unchanged from the previous examination. RPTAT: AADD .Royer Fernandez MD, MD Date Time Electronically viewed and signed by .Royer Fernandez MD, MD on 07/31/2016 18:47 PROCEDURE: XR Abdomen. CLINICAL INDICATION: Abdominal pain. TECHNIQUE: Single AP view of the abdomen is available for review. COMPARISON: None available. FINDINGS: Gas pattern is unremarkable. There appears to be an ostomy in the right upper quadrant. There are chain arnaldo in the right lower quadrant from previous surgery. There is no evidence of obstruction. There are no abnormal calcifications overlying the urinary tracts. The osseous structures are unremarkable. IMPRESSION: 1. Unremarkable bowel gas pattern. 2. Ostomy in the right upper quadrant. RPTAT: AACC Physician Elva Date Time Electronically viewed and signed by Physician Elva on 08/02/2016 08: 47 KYMBERLY PASTOR MD Aug 02, 2016 07:54
--- NOTE | 2016-08-02 08:47 | RADRPT ---
PROCEDURE: XR Abdomen. CLINICAL INDICATION: Abdominal pain. TECHNIQUE: Single AP view of the abdomen is available for review. COMPARISON: None available. FINDINGS: Gas pattern is unremarkable. There appears to be an ostomy in the right upper quadrant. There are chain arnaldo in the right lower quadrant from previous surgery. There is no evidence of obstruction. There are no abnormal calcifications overlying the urinary tracts. The osseous structures are unremarkable. IMPRESSION: 1. Unremarkable bowel gas pattern. 2. Ostomy in the right upper quadrant. RPTAT: AACC Physician Elva Date Time Electronically viewed and signed by Physician Elva on 08/02/2016 08:47 /
[2016-08-02] MEDS: FAMOTIDINE 20 MG TAB PO SCH ×2 (08:57→20:47)
[2016-08-02] MEDS: ENOXAPARIN 30 MG/0.3 ML SYG SC SCH (08:58)
--- NOTE | 2016-08-02 15:28 | PN ---
Date/Time of Note Date/Time of Note DATE: 08/02/16 TIME: 15:27 Assessment/Plan VTE Prophylaxis VTE Prophylaxis Intervention: other Assessment/Plan Chief Complaint/Hosp Course 1) Pre- Renal Azotemia - IV fluids 2) Hyponatremia - monitor 3) Hyperkalemia - stable 4) Metabolic Acidosis 5) Hypomagnesemia 6) Hx of Hirschsprungs 7) Hx of Colostomy Problems: Subjective 24 Hr Interval Summary Free Text/Dictation Feels weak but better Exam/Review of Systems Vital Signs Vitals Vital Signs Date Time Temp Pulse Resp B/P Pulse Ox O2 Delivery O2 Flow Rate FiO2 08/02/16 12:00 78 08/02/16 11:33 97.9 18 100/55 96 07/31/16 21:00 Room Air 07/31/16 19:56 21 Intake and Output 08/01/16 08/01/16 08/02/16 15:00 23:00 07:00 Intake Total 420 ml 200 ml Output Total 400 ml 1800 ml Balance 20 ml -1600 ml Exam Head: atraumatic, normocephalic Respiratory: diminished breath sounds Cardiovascular: regular rate and rhythm Gastrointestinal: non-tender, soft Results Result Diagram: 08/02/16 0535 08/02/16 0530 Results 24 hrs Laboratory Tests Test 08/02/16 05:30 08/02/16 05:35 Anion Gap 17 #H Blood Urea Nitrogen 22 #H Calcium Level 9.1 Carbon Dioxide Level 24 Chloride Level 104 # Creatinine 0.65 Glucose Level 65 #L Magnesium Level 2.1 Potassium Level 3.5 Sodium Level 141 Basophils # 0.0 Basophils % 0.5 Blood Morphology Comment Eosinophils # 0.2 Eosinophils % 4.9 Hematocrit 36.9 L Hemoglobin 12.6 Lymphocytes # 0.5 L Lymphocytes % 12.2 L Mean Corpuscular Hemoglobin 30.4 Mean Corpuscular Hemoglobin Concent 34.3 Mean Corpuscular Volume 88.5 Mean Platelet Volume 7.2 L Monocytes # 0.5 Monocytes % 12.1 H Neutrophils # 3.0 Neutrophils % 70.3 Nucleated Red Blood Cells # 0.0 Nucleated Red Blood Cells % 0.0 Parathyroid Hormone (Intact) Platelet Count 438 Red Blood Count 4.17 L Red Cell Distribution Width 14.7 H White Blood Count 4.2 #L Medications Medications Current Medications Ondansetron HCl (Zofran Inj) 4 mg Q6H PRN IV NAUSEA AND/OR VOMITING Last administered on 07/31/16 23:46; Admin Dose 4 MG; Start 07/31/16 at 23:00 Acetaminophen (Tylenol Tab) 650 mg Q4H PRN PO PAIN AND OR ELEVATED TEMP; Start 07/31/16 at 23:00 Diphenhydramine HCl (Benadryl) 25 mg Q6H PRN IV PRURITUS Last administered on 02:51; Admin Dose 25 MG; Start 07/31/16 at 23:00 Lorazepam (Ativan) 0.5 mg Q6H PRN IV ANXIETY; Start 07/31/16 at 23:00 Enoxaparin Sodium 30 mg 30 mg DAILY SC Last administered on 08/02/16 08:58; Admin Dose 30 MG; Start 08/01/16 at 09:00 Sodium Chloride (NS) 1,000 ml @ 125 mls/hr Q8H IV Last administered on 23:00; Admin Dose 125 MLS/HR; Start 07/31/16 at 23:00 Famotidine (Pepcid) 20 mg BID PO Last administered on 08/02/16 08:57; Admin Dose 20 MG; Start 08/01/16 at 00:00 GINGER MOSES Aug 02, 2016 15:28
[2016-08-02] MEDS ORDERED: ALBUTEROL HFA 8 GM INHALER INH PRN (18:00)
[2016-08-02] MEDS ORDERED: FLUTICASONE 0.05% 16 GM NAS SPRAY NASAL PRN (18:00)
[2016-08-02] MEDS ORDERED: FAMOTIDINE 20 MG TAB PO SCH (21:00)
[2016-08-02] MEDS ORDERED: CYANOCOBALAMIN 1000 MCG INJ IM SCH (23:00)
[2016-08-03] VITALS (11 sets, daily range): BP systolic 81–105; BP diastolic 47–63; PULSE 75–96; RESP 18–20
[2016-08-03] MEDS ORDERED: POTASSIUM CHLORIDE (SR) 20 MEQ TAB PO STA (08:01)
[2016-08-03] MEDS ORDERED: POTASSIUM CHLORIDE 10 MEQ in SOD CHLORIDE 0.9% 1,000 ML IV SCH (08:06)
[2016-08-03] MEDS: LORATADINE 10 MG TAB PO SCH (09:03)
[2016-08-03] MEDS: FAMOTIDINE 20 MG TAB PO SCH ×2 (09:03→20:45)
[2016-08-03] MEDS: FOLIC ACID 1 MG TAB PO SCH (09:03)
[2016-08-03] MEDS: ENOXAPARIN 30 MG/0.3 ML SYG SC SCH (09:09)
[2016-08-03] MEDS: MIDODRINE 2.5 MG TAB GTB SCH ×2 (09:51→16:33)
[2016-08-03] MEDS: POTASSIUM CHLORIDE 10 MEQ in SOD CHLORIDE 0.9% 1,000 ML IV SCH ×4 (09:51→23:39)
--- NOTE | 2016-08-03 11:49 | PN ---
Date/Time of Note Date/Time of Note DATE: 08/03/16 TIME: 11:49 Assessment/Plan VTE Prophylaxis VTE Prophylaxis Intervention: other Lines/Catheters IV Catheter Type (from Nrs): Peripheral IV Assessment/Plan Chief Complaint/Hosp Course 1) Pre- Renal Azotemia - IV fluids 2) Hyponatremia - monitor 3) Hyperkalemia - stable 4) Metabolic Acidosis 5) Hypomagnesemia 6) Hx of Hirschsprungs 7) Hx of Colostomy Problems: Subjective 24 Hr Interval Summary Free Text/Dictation Patient remain confused though verbal Exam/Review of Systems Vital Signs Vitals Vital Signs Date Time Temp Pulse Resp B/P Pulse Ox O2 Delivery O2 Flow Rate FiO2 08/03/16 08:23 86 83/47 08/03/16 03:48 97.8 18 100 07/31/16 21:00 Room Air 07/31/16 19:56 21 Intake and Output 08/02/16 08/02/16 08/03/16 15:00 23:00 07:00 Intake Total 850 ml 300 ml Output Total 1150 ml 1100 ml Balance -300 ml -800 ml Exam Constitutional: well developed Head: atraumatic, normocephalic Neck: supple Respiratory: clear to auscultation Cardiovascular: regular rate and rhythm Gastrointestinal: non-tender, soft Extremities: normal pulses Results Result Diagram: 08/02/1635 08/02/16 0530 Medications Medications Current Medications Ondansetron HCl (Zofran Inj) 4 mg Q6H PRN IV NAUSEA AND/OR VOMITING Last administered on 07/31/16 23:46; Admin Dose 4 MG; Start 07/31/16 at 23:00 Acetaminophen (Tylenol Tab) 650 mg Q4H PRN PO PAIN AND OR ELEVATED TEMP; Start 07/31/16 at 23:00 Diphenhydramine HCl (Benadryl) 25 mg Q6H PRN IV PRURITUS Last administered on 02:51; Admin Dose 25 MG; Start 07/31/16 at 23:00 Lorazepam (Ativan) 0.5 mg Q6H PRN IV ANXIETY; Start 07/31/16 at 23:00 Enoxaparin Sodium (Lovenox) 30 mg DAILY SC Last administered on 08/03/16 09:09 ; Admin Dose 30 MG; Start 08/01/16 at 09:00 Famotidine (Pepcid) 20 mg BID PO Last administered on 08/03/16 09:03; Admin Dose 20 MG; Start 08/01/16 at 00:00 Albuterol (Ventolin Hfa) 2 puff Q4H PRN INH WHEEZING AND SOB; Start 08/02/16 at 18:00 Cyanocobalamin (Vitamin B12 Inj) 1,000 mcg Q28D IM Last administered on 23:34; Admin Dose 1,000 MCG; Start 08/02/16 at 23:00 Fluticasone Propionate (Flonase 0.05% Nasal) 1 spray DAILY PRN NASAL ALLERGIC REACTION; Start 08/02/16 at 18:00 Folic Acid (Folic Acid) 1 mg DAILY PO Last administered on 08/03/16 09:03; Admin Dose 1 MG; Start 08/03/16 at 09:00 Loratadine 10 mg 10 mg DAILY PO Last administered on 08/03/16 09:03; Admin Dose 10 MG; Start 08/03/16 at 09:00 Potassium Chloride/Sodium Chloride (KCl/NS) 1,000 ml @ 150 mls/hr Q6H40M IV Last administered on 08/03/16 09:51; Admin Dose 150 MLS/HR; Start 08/03/16 at 09:00 Midodrine (Proamatine) 2.5 mg BID@,17 GTB Last administered on 08/03/16 09: 51; Admin Dose 2.5 MG; Start 08/03/16 at 09:00 GINGER MOSES Aug 03, 2016 11:49
--- NOTE | 2016-08-03 21:04 | CONS ---
Date/Time of Note Date/Time of Note DATE: 08/03/16 TIME: 21:01 Assessment/Plan Assessment/Plan Additional Assessment/Plan Started pt on Midodrin because she can not avail PT with low BP Consultation Date/Type/Reason Admit Date/Time Jul 31, 2016 at 19:31 Initial Consult Date 08/02/16 Type of Consultation: Nephrology Referring Provider: CARLOS RODRIGUEZ MD 24 HR Interval Summary Free Text/Dictation more alert & responsive Subjective hx not possible: other (Concerned about low BP) Exam/Review of Systems Vital Signs Vitals Vital Signs Date Time Temp Pulse Resp B/P Pulse Ox O2 Delivery O2 Flow Rate FiO2 08/03/16 20:27 94 08/03/16 15:39 97.9 18 105/63 95 07/31/16 21:00 Room Air 07/31/16 19:56 21 Intake and Output 08/02/16 08/02/16 08/03/16 15:00 23:00 07:00 Intake Total 850 ml 300 ml Output Total 1150 ml 1100 ml Balance -300 ml -800 ml Results Result Diagram: 08/02/16 0535 08/02/16 0530 Results 24 hrs Renal fn, SCa improved, suggests marked hypovolumia as the culprit, tho it is reso;yue Medications Medications Current Medications Ondansetron HCl (Zofran Inj) 4 mg Q6H PRN IV NAUSEA AND/OR VOMITING Last administered on 07/31/16 23:46; Admin Dose 4 MG; Start 07/31/16 at 23:00 Acetaminophen (Tylenol Tab) 650 mg Q4H PRN PO PAIN AND OR ELEVATED TEMP; Start 07/31/16 at 23:00 Diphenhydramine HCl (Benadryl) 25 mg Q6H PRN IV PRURITUS Last administered on 02:51; Admin Dose 25 MG; Start 07/31/16 at 23:00 Lorazepam (Ativan) 0.5 mg Q6H PRN IV ANXIETY; Start 07/31/16 at 23:00 Enoxaparin Sodium (Lovenox) 30 mg DAILY SC Last administered on 08/03/16 09:09 ; Admin Dose 30 MG; Start 08/01/16 at 09:00 Famotidine (Pepcid) 20 mg BID PO Last administered on 08/03/16 20:45; Admin Dose 20 MG; Start 08/01/16 at 00:00 Albuterol (Ventolin Hfa) 2 puff Q4H PRN INH WHEEZING AND SOB; Start 08/02/16 at 18:00 Cyanocobalamin (Vitamin B12 Inj) 1,000 mcg Q28D IM Last administered on 23:34; Admin Dose 1,000 MCG; Start 08/02/16 at 23:00 Fluticasone Propionate (Flonase 0.05% Nasal) 1 spray DAILY PRN NASAL ALLERGIC REACTION; Start 08/02/16 at 18:00 Folic Acid (Folic Acid) 1 mg DAILY PO Last administered on 08/03/16 09:03; Admin Dose 1 MG; Start 08/03/16 at 09:00 Loratadine 10 mg 10 mg DAILY PO Last administered on 08/03/16 09:03; Admin Dose 10 MG; Start 08/03/16 at 09:00 Potassium Chloride/Sodium Chloride (KCl/NS) 1,000 ml @ 150 mls/hr Q6H40M IV Last administered on 08/03/16 16:26; Admin Dose 150 MLS/HR; Start 08/03/16 at 09:00 Midodrine (Proamatine) 2.5 mg BID@ GTB Last administered on 08/03/16 16: 33; Admin Dose 2.5 MG; Start 08/03/16 at 09:00 WANDA ELLISON MD Aug 03, 2016 21:04
[2016-08-04] VITALS (13 sets, daily range): BP systolic 82–98; BP diastolic 47–55; PULSE 68–87; RESP 17–18
[2016-08-04] MEDS: POTASSIUM CHLORIDE 10 MEQ in SOD CHLORIDE 0.9% 1,000 ML IV SCH ×2 (06:25→16:44)
[2016-08-04] MEDS: MIDODRINE 2.5 MG TAB GTB SCH ×2 (09:52→16:43)
[2016-08-04] MEDS: FOLIC ACID 1 MG TAB PO SCH (09:52)
[2016-08-04] MEDS: LORATADINE 10 MG TAB PO SCH (09:52)
[2016-08-04] MEDS: FAMOTIDINE 20 MG TAB PO SCH ×2 (09:52→20:09)
[2016-08-04] MEDS: ENOXAPARIN 30 MG/0.3 ML SYG SC SCH (09:53)
--- NOTE | 2016-08-04 12:31 | PN ---
Date/Time of Note Date/Time of Note DATE: 08/04/16 TIME: 12:30 Assessment/Plan VTE Prophylaxis VTE Prophylaxis Intervention: other Lines/Catheters IV Catheter Type (from Nrsg): Peripheral IV Assessment/Plan Chief Complaint/Hosp Course 1) Pre- Renal Azotemia - IV fluids 2) Hyponatremia - monitor 3) Hyperkalemia - stable 4) Metabolic Acidosis 5) Hypomagnesemia 6) Hx of Hirschsprungs 7) Hx of Colostomy Problems: Subjective 24 Hr Interval Summary Free Text/Dictation Patient has no specific complaints Exam/Review of Systems Vital Signs Vitals Vital Signs Date Time Temp Pulse Resp B/P Pulse Ox O2 Delivery O2 Flow Rate FiO2 08/04/16 12:01 84 08/04/16 11:42 98.0 18 88/54 99 07/31/16 21:00 Room Air 07/31/16 19:56 21 Intake and Output 08/03/16 08/03/16 08/04/16 15:00 23:00 07:00 Intake Total 2700 ml 1600 ml Output Total 1400 ml 900 ml Balance 1300 ml 700 ml Exam Constitutional: frail Head: atraumatic, normocephalic Neck: supple Respiratory: diminished breath sounds Cardiovascular: regular rate and rhythm Gastrointestinal: non-tender, soft Extremities: normal pulses Results Result Diagram: 08/02/16 0535 08/02/16 0530 Medications Medications Current Medications Ondansetron HCl (Zofran Inj) 4 mg Q6H PRN IV NAUSEA AND/OR VOMITING Last administered on 07/31/16 23:46; Admin Dose 4 MG; Start 07/31/16 at 23:00 Acetaminophen (Tylenol Tab) 650 mg Q4H PRN PO PAIN AND OR ELEVATED TEMP; Start 07/31/16 at 23:00 Diphenhydramine HCl (Benadryl) 25 mg Q6H PRN IV PRURITUS Last administered on 02:51; Admin Dose 25 MG; Start 07/31/16 at 23:00 Lorazepam (Ativan) 0.5 mg Q6H PRN IV ANXIETY; Start 07/31/16 at 23:00 Enoxaparin Sodium (Lovenox) 30 mg DAILY SC Last administered on 08/04/16 09:53 ; Admin Dose 30 MG; Start 08/01/16 at 09:00 Famotidine (Pepcid) 20 mg BID PO Last administered on 08/04/16 09:52; Admin Dose 20 MG; Start 08/01/16 at 00:00 Albuterol (Ventolin Hfa) 2 puff Q4H PRN INH WHEEZING AND SOB; Start 08/02/16 at 18:00 Cyanocobalamin (Vitamin B12 Inj) 1,000 mcg Q28D IM Last administered on 23:34; Admin Dose 1,000 MCG; Start 08/02/16 at 23:00 Fluticasone Propionate (Flonase 0.05% Nasal) 1 spray DAILY PRN NASAL ALLERGIC REACTION; Start 08/02/16 at 18:00 Folic Acid (Folic Acid) 1 mg DAILY PO Last administered on 08/04/16 09:52; Admin Dose 1 MG; Start 08/03/16 at 09:00 Loratadine 10 mg 10 mg DAILY PO Last administered on 08/04/16 09:52; Admin Dose 10 MG; Start 08/03/16 at 09:00 Potassium Chloride/Sodium Chloride (KCl/NS) 1,000 ml @ 150 mls/hr Q6H40M IV Last administered on 08/04/16 06:25; Admin Dose 150 MLS/HR; Start 08/03/16 at 09:00 Midodrine (Proamatine) 2.5 mg BID@,17 GTB Last administered on 08/04/16 09: 52; Admin Dose 2.5 MG; Start 08/03/16 at 09:00 GINGER MOSES Aug 04, 2016 12:31
--- NOTE | 2016-08-04 21:54 | CONS ---
Date/Time of Note Date/Time of Note DATE: 08/04/16 TIME: 21:54 Assessment/Plan Assessment/Plan Additional Assessment/Plan Renal fn & chemistry is normal Pt now able TO GET around Consultation Date/Type/Reason Admit Date/Time Jul 31, 2016 at 19:31 Initial Consult Date 08/02/16 Type of Consultation: Nephrology Reason for Consultation more alert & communicative Referring Provider: CARLOS RODRIGUEZ MD 24 HR Interval Summary Constitutional: improved, no complaints Exam/Review of Systems Vital Signs Vitals Vital Signs Date Time Temp Pulse Resp B/P Pulse Ox O2 Delivery O2 Flow Rate FiO2 08/04/16 20:07 87 08/04/16 16:00 98.1 18 87/48 95 Room Air 07/31/16 19:56 21 Intake and Output 08/03/16 08/03/16 08/04/16 15:00 23:00 07:00 Intake Total 2700 ml 1600 ml Output Total 1400 ml 900 ml Balance 1300 ml 700 ml Exam Thinly built, lying comfortably in bed Constitutional: alert, oriented Head: normocephalic Eyes: PERRL ENMT: nl external ears & nose Neck: supple Cardiovascular: regular rate and rhythm Gastrointestinal: soft Musculoskeletal: nl extremities to inspection 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: REINSURANCE CLERK II-XII intact Results Result Diagram: 08/02/16 0535 08/02/16 0530 Medications Medications Current Medications Ondansetron HCl (Zofran Inj) 4 mg Q6H PRN IV NAUSEA AND/OR VOMITING Last administered on 07/31/16 23:46; Admin Dose 4 MG; Start 07/31/16 at 23:00 Acetaminophen (Tylenol Tab) 650 mg Q4H PRN PO PAIN AND OR ELEVATED TEMP; Start 07/31/16 at 23:00 Diphenhydramine HCl (Benadryl) 25 mg Q6H PRN IV PRURITUS Last administered on 02:51; Admin Dose 25 MG; Start 07/31/16 at 23:00 Lorazepam (Ativan) 0.5 mg Q6H PRN IV ANXIETY; Start 07/31/16 at 23:00 Enoxaparin Sodium (Lovenox) 30 mg DAILY SC Last administered on 08/04/16 09:53 ; Admin Dose 30 MG; Start 08/01/16 at 09:00 Famotidine (Pepcid) 20 mg BID PO Last administered on 08/04/16 20:09; Admin Dose 20 MG; Start 08/01/16 at 00:00 Albuterol (Ventolin Hfa) 2 puff Q4H PRN INH WHEEZING AND SOB; Start 08/02/16 at 18:00 Cyanocobalamin (Vitamin B12 Inj) 1,000 mcg Q28D IM Last administered on 23:34; Admin Dose 1,000 MCG; Start 08/02/16 at 23:00 Fluticasone Propionate (Flonase 0.05% Nasal) 1 spray DAILY PRN NASAL ALLERGIC REACTION; Start 08/02/16 at 18:00 Folic Acid (Folic Acid) 1 mg DAILY PO Last administered on 08/04/16 09:52; Admin Dose 1 MG; Start 08/03/16 at 09:00 Loratadine 10 mg 10 mg DAILY PO Last administered on 08/04/16 09:52; Admin Dose 10 MG; Start 08/03/16 at 09:00 Potassium Chloride/Sodium Chloride (KCl/NS) 1,000 ml @ 150 mls/hr Q6H40M IV Last administered on 08/04/16 16:44; Admin Dose 150 MLS/HR; Start 08/03/16 at 09:00 Midodrine (Proamatine) 2.5 mg BID@17 GTB Last administered on 08/04/16 16: 43; Admin Dose 2.5 MG; Start 08/03/16 at 09:00 WANDA ELLISON MD Aug 04, 2016 21:54
[2016-08-05] VITALS (13 sets, daily range): BP systolic 80–93; BP diastolic 44–54; PULSE 69–90; RESP 15–20
[2016-08-05] MEDS: POTASSIUM CHLORIDE 10 MEQ in SOD CHLORIDE 0.9% 1,000 ML IV SCH ×6 (01:00→23:07)
[2016-08-05 08:06] LABS: BASOPHILS % 0.4 % (0.0-2.0); EOSINOPHILS # 0.5 10^3/ul (0.0-0.5); EOSINOPHILS % 9.3 % (0.0-7.0); HEMATOCRIT 33.5 % (37.0-47.0); HEMOGLOBIN 11.4 g/dl (12.0-16.0); LYMPHOCYTES # 0.7 10^3/ul (0.8-2.9); LYMPHOCYTES % 13.9 % (15.0-51.0); MEAN CORPUSCULAR HEMOGLOBIN 30.4 pg (29.0-33.0); MEAN CORPUSCULAR HGB CONC 34.2 g/dl (32.0-37.0); MEAN PLATELET VOLUME 8.6 fl (7.4-10.4); MONOCYTE # 0.2 10^3/ul (0.3-0.9); MONOCYTES % 3.7 % (0.0-11.0); NEUTROPHIL # 3.8 10^3/ul (1.6-7.5); NEUTROPHILS % 72.7 % (39.0-77.0); PLATELET COUNT 255 10^3/UL (140-440); RED BLOOD COUNT 3.76 10^6/ul (4.20-5.40); RED CELL DISTRIBUTION WIDTH 15.7 % (11.5-14.5); UNCORRECTED WBC 5.2 10^3/ul (4.8-10.8); WHITE BLOOD COUNT 5.2 10^3/ul (4.8-10.8)
[2016-08-05 08:12] LABS: CREATININE 0.52 mg/dl (0.44-1.00)
[2016-08-05 08:13] LABS: CALCIUM 7.2 mg/dl (8.4-10.2)
[2016-08-05 08:15] LABS: CONDITION 1; LH ANALYZER COMMENTS 1
[2016-08-05 08:17] LABS: POTASSIUM 2.5 mmol/L (3.5-5.1)
[2016-08-05] MEDS: LORATADINE 10 MG TAB PO SCH (08:59)
[2016-08-05] MEDS: FOLIC ACID 1 MG TAB PO SCH (09:00)
[2016-08-05] MEDS: FAMOTIDINE 20 MG TAB PO SCH ×2 (09:00→23:07)
[2016-08-05] MEDS: ENOXAPARIN 30 MG/0.3 ML SYG SC SCH (09:00)
[2016-08-05] MEDS: MIDODRINE 2.5 MG TAB GTB SCH ×2 (09:31→17:48)
[2016-08-05] MEDS ORDERED: POTASSIUM CHLORIDE 250 ML IVPB ONE ×2 (10:00→21:30)
--- NOTE | 2016-08-05 14:53 | CONS ---
Date/Time of Note Date/Time of Note DATE: 08/05/16 TIME: 14:53 Assessment/Plan Assessment/Plan Chief Complaint/Hosp Course 41-year-old female with history of anemia as well as hyponatremia and Hirschsprung's disease who presents with "heartburn". Hx of Colostromy. She said the symptoms started 2 days ago and they have improved. She states she is making very good UO and does not have dysuria or hematuria. Pt was also admitted recently for treatment of Hyponatremia. Nephrology consulted for MELBA and Electrolyte abnormality. Problems: Consultation Date/Type/Reason Admit Date/Time Jul 31, 2016 at 19:31 Initial Consult Date 08/02/16 Type of Consultation: Nephrology Referring Provider: CARLOS RODRIGUEZ MD Exam/Review of Systems Vital Signs Vitals Vital Signs Date Time Temp Pulse Resp B/P Pulse Ox O2 Delivery O2 Flow Rate FiO2 08/05/16 12:08 87 08/05/16 11:32 98.3 20 93/51 98 08/04/16 16:00 Room Air Intake and Output 08/04/16 08/04/16 08/05/16 15:00 23:00 07:00 Intake Total 240 ml 2420 ml 1400 ml Output Total 200 ml 900 ml 400 ml Balance 40 ml 1520 ml 1000 ml Results Result Diagram: 08/05/16 0545 08/05/16 0545 Results 24 hrs Laboratory Tests Test 08/05/16 05:45 Anion Gap 16 Basophils # 0.0 Basophils % 0.4 Blood Morphology Comment Blood Urea Nitrogen 9 Calcium Level 7.2 L Carbon Dioxide Level 26 Chloride Level 105 Creatinine 0.52 Eosinophils # 0.5 Eosinophils % 9.3 H Glucose Level 96 Hematocrit 33.5 L Hemoglobin 11.4 L Lymphocytes # 0.7 L Lymphocytes % 13.9 L Mean Corpuscular Hemoglobin 30.4 Mean Corpuscular Hemoglobin Concent 34.2 Mean Corpuscular Volume 89.0 Mean Platelet Volume 8.6 Monocytes # 0.2 L Monocytes % 3.7 Neutrophils # 3.8 Neutrophils % 72.7 Nucleated Red Blood Cells # 0.0 Nucleated Red Blood Cells % 0.0 Platelet Count 255 # Potassium Level 2.5 *L Red Blood Count 3.76 L Red Cell Distribution Width 15.7 H Sodium Level 144 White Blood Count 5.2 # Medications Medications Current Medications Ondansetron HCl (Zofran Inj) 4 mg Q6H PRN IV NAUSEA AND/OR VOMITING Last administered on 07/31/16 23:46; Admin Dose 4 MG; Start 07/31/16 at 23:00 Acetaminophen (Tylenol Tab) 650 mg Q4H PRN PO PAIN AND OR ELEVATED TEMP; Start 07/31/16 at 23:00 Diphenhydramine HCl (Benadryl) 25 mg Q6H PRN IV PRURITUS Last administered on 02:51; Admin Dose 25 MG; Start 07/31/16 at 23:00 Lorazepam (Ativan) 0.5 mg Q6H PRN IV ANXIETY; Start 07/31/16 at 23:00 Enoxaparin Sodium (Lovenox) 30 mg DAILY SC Last administered on 08/05/16 09:00 ; Admin Dose 30 MG; Start 08/01/16 at 09:00 Famotidine (Pepcid) 20 mg BID PO Last administered on 08/05/16 09:00; Admin Dose 20 MG; Start 08/01/16 at 00:00 Albuterol (Ventolin Hfa) 2 puff Q4H PRN INH WHEEZING AND SOB; Start 08/02/16 at 18:00 Cyanocobalamin (Vitamin B12 Inj) 1,000 mcg Q28D IM Last administered on 23:34; Admin Dose 1,000 MCG; Start 08/02/16 at 23:00 Fluticasone Propionate (Flonase 0.05% Nasal) 1 spray DAILY PRN NASAL ALLERGIC REACTION; Start 08/02/16 at 18:00 Folic Acid (Folic Acid) 1 mg DAILY PO Last administered on 08/05/16 09:00; Admin Dose 1 MG; Start 08/03/16 at 09:00 Loratadine 10 mg 10 mg DAILY PO Last administered on 08/05/16 08:59; Admin Dose 10 MG; Start 08/03/16 at 09:00 Potassium Chloride/Sodium Chloride (KCl/NS) 1,000 ml @ 150 mls/hr Q6H40M IV Last administered on 08/05/16 13:24; Admin Dose 150 MLS/HR; Start 08/03/16 at 09:00 Midodrine (Proamatine) 2.5 mg BID@ GTB Last administered on 08/05/16t 09: 31; Admin Dose 2.5 MG; Start 08/03/16 at 09:00 KYMBERLY PASTOR MD Aug 05, 2016 14:53
--- NOTE | 2016-08-05 22:23 | PN ---
DATE: 08/05/2016 SUBJECTIVE: Follow up on Hirschsprung disease, anemia, dyselectrolytemia, ileostomy. The patient d enied any chest pain or shortness of breath. The patient did not have any abdominal distension. No reported vomiting, no reported fever, or chills. The patient remains awake, alert. No bleeding fr om any site. PHYSICAL EXAMINATION: GENERAL: The patient is conscious, awake, alert. VITAL SIGNS: Temperature 98.3, pulse 85, respirations 20, blood pressure 93/51, O2 saturation 100% on room air. HEENT: Atraumatic, normocephalic. Conjunctivae and lids normal. Oropharynx clear. NECK: Supple. No mass, no thyromegaly. CHEST: Fairly clear. No use of accessory muscles. CARDIOVASCULAR: Regular rate and rhythm. S1, S2 normal. No murmur, gallop, or rub. ABDOMEN: Soft, nondistended, nontender. EXTREMITIES: No leg edema. NEUROLOGIC: The patient is awake, alert, fairly oriented with no gross focal deficit. LABORATORY DATA: Done this morning, WBC 5.2, hemoglobin 11.4, platelets 255. Sodium 142, potassium 2.5, BUN 9, creatinine 0.5, glucose 96. IMPRESSION: 1. Severe hypokalemia. The patient was given IV potassium and will do followup BMP as well as magn esium level in a.m. The patient meanwhile will be continued on IV fluid. We will continue Lovenox for deep vein thrombosis prophylaxis. The patient also is on Vitamin B12 and folic acid supplement. 2. The patient also has acute kidney injury, which has resolved. The patient's BUN and creatinine upon admission was 77 and 1.2 and this morning lab revealed normal BUN and creatinine. Further recommendation depends on patient's hospital course and recommendations from siphon operator. Dictated By: CARLOS PARRA/CRISTINA Conf#: [id number] DID#: [id number]
[2016-08-06] VITALS (12 sets, daily range): BP systolic 88–110; BP diastolic 52–89; PULSE 70–109; RESP 18–20
[2016-08-06] MEDS: FAMOTIDINE 20 MG TAB PO SCH ×2 (09:38→21:35)
[2016-08-06] MEDS: MIDODRINE 2.5 MG TAB GTB SCH ×2 (09:38→18:15)
[2016-08-06] MEDS: POTASSIUM CHLORIDE 10 MEQ in SOD CHLORIDE 0.9% 1,000 ML IV SCH ×3 (09:38→23:40)
[2016-08-06] MEDS: FOLIC ACID 1 MG TAB PO SCH (09:38)
[2016-08-06] MEDS: LORATADINE 10 MG TAB PO SCH (09:38)
[2016-08-06] MEDS: ENOXAPARIN 30 MG/0.3 ML SYG SC SCH (09:57)
[2016-08-06] MEDS ORDERED: POTASSIUM CHLORIDE (SR) 20 MEQ TAB PO STA (12:03)
--- NOTE | 2016-08-06 12:06 | CONS ---
Date/Time of Note Date/Time of Note DATE: 08/06/16 TIME: 12:04 Assessment/Plan Assessment/Plan Additional Assessment/Plan 41 yo Female with 1) Pre- Renal Azotemia 2) Hyponatremia 3) Hyporkalemia 4) Metabolic Acidosis 5) Hypomagnesemia 6) Hx of Hirschsprungs 7) Hx of Colostomy Consultation Date/Type/Reason Admit Date/Time Jul 31, 2016 at 19:31 Initial Consult Date 08/02/16 Type of Consultation: Nephrology Referring Provider: CARLOS RODRIGUEZ MD 24 HR Interval Summary Free Text/Dictation Ostomy care, Pt on IV KCL. Exam/Review of Systems Vital Signs Vitals Vital Signs Date Time Temp Pulse Resp B/P Pulse Ox O2 Delivery O2 Flow Rate FiO2 08/06/16 11:50 98.5 92 20 110/56 100 08/04/16 16:00 Room Air Intake and Output 08/05/16 08/05/16 08/06/16 15:00 23:00 07:00 Intake Total 1800 ml 700 ml Output Total 2850 ml 500 ml Balance -1050 ml 200 ml Exam Constitutional: frail, No distress Eyes: EOMI Neck: No jvd Respiratory: clear to auscultation Cardiovascular: regular rate and rhythm Gastrointestinal: soft Extremities: No edema 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: No lethargic Results Result Diagram: 08/05/16 0545 08/05/16 1915 Results 24 hrs Laboratory Tests Test 08/05/16 19:15 Potassium Level 2.9 *L Medications Medications Current Medications Ondansetron HCl (Zofran Inj) 4 mg Q6H PRN IV NAUSEA AND/OR VOMITING Last administered on 07/31/16 23:46; Admin Dose 4 MG; Start 07/31/16 at 23:00 Acetaminophen (Tylenol Tab) 650 mg Q4H PRN PO PAIN AND OR ELEVATED TEMP; Start 07/31/16 at 23:00 Diphenhydramine HCl (Benadryl) 25 mg Q6H PRN IV PRURITUS Last administered on 02:51; Admin Dose 25 MG; Start 07/31/16 at 23:00 Lorazepam (Ativan) 0.5 mg Q6H PRN IV ANXIETY; Start 07/31/16 at 23:00 Enoxaparin Sodium (Lovenox) 30 mg DAILY SC Last administered on 08/06/16 09:57 ; Admin Dose 30 MG; Start 08/01/16 at 09:00 Famotidine (Pepcid) 20 mg BID PO Last administered on 08/06/16 09:38; Admin Dose 20 MG; Start 08/01/16 at 00:00 Albuterol (Ventolin Hfa) 2 puff Q4H PRN INH WHEEZING AND SOB; Start 08/02/16 at 18:00 Cyanocobalamin (Vitamin B12 Inj) 1,000 mcg Q28D IM Last administered on 23:34; Admin Dose 1,000 MCG; Start 08/02/16 at 23:00 Fluticasone Propionate (Flonase 0.05% Nasal) 1 spray DAILY PRN NASAL ALLERGIC REACTION; Start 08/02/16 at 18:00 Folic Acid (Folic Acid) 1 mg DAILY PO Last administered on 08/06/16 09:38; Admin Dose 1 MG; Start 08/03/16 at 09:00 Loratadine 10 mg 10 mg DAILY PO Last administered on 08/06/16 09:38; Admin Dose 10 MG; Start 08/03/16 at 09:00 Potassium Chloride/Sodium Chloride (KCl/NS) 1,000 ml @ 150 mls/hr Q6H40M IV Last administered on 08/06/16 09:38; Admin Dose 150 MLS/HR; Start 08/03/16 at 09:00 Midodrine (Proamatine) 2.5 mg BID@ GTB Last administered on 08/06/16 09: 38; Admin Dose 2.5 MG; Start 08/03/16 at 09:00 KYMBERLY PASTOR MD Aug 06, 2016 12:06
[2016-08-06 15:33] LABS: POTASSIUM 3.3 mmol/L (3.5-5.1)
[2016-08-06 15:36] LABS: CREATININE 0.53 mg/dl (0.44-1.00)
[2016-08-06 15:37] LABS: CALCIUM 7.7 mg/dl (8.4-10.2)
--- NOTE | 2016-08-06 16:30 | PN ---
Date/Time of Note Date/Time of Note DATE: 08/06/16 TIME: 16:26 Assessment/Plan VTE Prophylaxis VTE Prophylaxis Intervention: SCD's Lines/Catheters IV Catheter Type (from Nrs): Peripheral IV Assessment/Plan Chief Complaint/Hosp Course Assessment and plan - Acute kidney injury secondary to dehydration, resolved - Hyponatremia, resolved. Dr. Reid is following in nephrology consultation - Hypokalemia, continue potassium replacement. - Hx of Hirschsprung disease - Colostomy, wound care consult. Problems: Subjective 24 Hr Interval Summary Free Text/Dictation Patient is awake alert, denies fever chills, patient complains of skin irritation around colostomy site, undergoing potassium replacement. Exam/Review of Systems Vital Signs Vitals Vital Signs Date Time Temp Pulse Resp B/P Pulse Ox O2 Delivery O2 Flow Rate FiO2 08/06/16 16:14 98.2 80 20 103/89 99 08/04/16 16:00 Room Air Intake and Output 08/05/16 08/05/16 08/06/16 14:59 22:59 06:59 Intake Total 1800 ml 700 ml Output Total 2850 ml 500 ml Balance -1050 ml 200 ml Exam Constitutional: alert, oriented Psych: no complaints Head: normocephalic Eyes: nl conjunctiva ENMT: nl external ears & nose Neck: supple Respiratory: clear to auscultation, normal air movement Cardiovascular: other (Tachycardic at times), regular rate and rhythm Gastrointestinal: non-tender, other (Colostomy), soft Musculoskeletal: nl extremities to inspection Extremities: normal pulses 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: THREAD GRINDER TOOL II-XII intact Results Result Diagram: 08/05/16 0545 08/06/16 1450 Results 24 hrs Laboratory Tests Test 08/05/16 19:15 08/06/16 14:50 Potassium Level 2.9 *L 3.3 L Anion Gap 11 Blood Urea Nitrogen 13 Calcium Level 7.7 L Carbon Dioxide Level 27 Chloride Level 108 Creatinine 0.53 Glucose Level 70 Sodium Level 143 Medications Medications Current Medications Ondansetron HCl (Zofran Inj) 4 mg Q6H PRN IV NAUSEA AND/OR VOMITING Last administered on 07/31/16t 23:46; Admin Dose 4 MG; Start 07/31/16 at 23:00 Acetaminophen (Tylenol Tab) 650 mg Q4H PRN PO PAIN AND OR ELEVATED TEMP; Start 07/31/16 at 23:00 Diphenhydramine HCl (Benadryl) 25 mg Q6H PRN IV PRURITUS Last administered on 02:51; Admin Dose 25 MG; Start 07/31/16 at 23:00 Lorazepam (Ativan) 0.5 mg Q6H PRN IV ANXIETY; Start 07/31/16 at 23:00 Enoxaparin Sodium (Lovenox) 30 mg DAILY SC Last administered on 08/06/16 09:57 ; Admin Dose 30 MG; Start 08/01/16 at 09:00 Famotidine (Pepcid) 20 mg BID PO Last administered on 08/06/16 09:38; Admin Dose 20 MG; Start 08/01/16 at 00:00 Albuterol (Ventolin Hfa) 2 puff Q4H PRN INH WHEEZING AND SOB; Start 08/02/16 at 18:00 Cyanocobalamin (Vitamin B12 Inj) 1,000 mcg Q28D IM Last administered on 23:34; Admin Dose 1,000 MCG; Start 08/02/16 at 23:00 Fluticasone Propionate (Flonase 0.05% Nasal) 1 spray DAILY PRN NASAL ALLERGIC REACTION; Start 08/02/16 at 18:00 Folic Acid (Folic Acid) 1 mg DAILY PO Last administered on 08/06/16 09:38; Admin Dose 1 MG; Start 08/03/16 at 09:00 Loratadine 10 mg 10 mg DAILY PO Last administered on 08/06/16 09:38; Admin Dose 10 MG; Start 08/03/16 at 09:00 Potassium Chloride/Sodium Chloride (KCl/NS) 1,000 ml @ 150 mls/hr Q6H40M IV Last administered on 08/06/16 09:38; Admin Dose 150 MLS/HR; Start 08/03/16 at 09:00 Midodrine (Proamatine) 2.5 mg BID@ GTB Last administered on 08/06/16 09: 38; Admin Dose 2.5 MG; Start 08/03/16 at 09:00 ROMI ESPINO Aug 06, 2016 16:30
[2016-08-07] VITALS (10 sets, daily range): BP systolic 97–106; BP diastolic 51–57; PULSE 78–105; RESP 16–18
[2016-08-07] MEDS: POTASSIUM CHLORIDE 10 MEQ in SOD CHLORIDE 0.9% 1,000 ML IV SCH ×2 (06:20→09:25)
[2016-08-07 07:15] LABS: POTASSIUM 4.2 mmol/L (3.5-5.1)
[2016-08-07 07:18] LABS: CREATININE 0.54 mg/dl (0.44-1.00)
[2016-08-07 07:19] LABS: CALCIUM 7.8 mg/dl (8.4-10.2)
[2016-08-07] MEDS: LORATADINE 10 MG TAB PO SCH (09:24)
[2016-08-07] MEDS: FAMOTIDINE 20 MG TAB PO SCH ×2 (09:25→20:43)
[2016-08-07] MEDS: MIDODRINE 2.5 MG TAB GTB SCH ×2 (09:25→18:52)
[2016-08-07] MEDS: FOLIC ACID 1 MG TAB PO SCH (09:25)
[2016-08-07] MEDS: ENOXAPARIN 30 MG/0.3 ML SYG SC SCH (09:31)
--- NOTE | 2016-08-07 16:14 | PN ---
Date/Time of Note Date/Time of Note DATE: 08/07/16 TIME: 16:13 Assessment/Plan VTE Prophylaxis VTE Prophylaxis Intervention: SCD's Lines/Catheters IV Catheter Type (from Nrs): Peripheral IV Assessment/Plan Chief Complaint/Hosp Course Assessment and plan - Acute kidney injury secondary to dehydration, resolved - Hyponatremia, resolved. Dr. Reid is following in nephrology consultation - Hypokalemia, continue potassium replacement. - Hx of Hirschsprung disease - Colostomy, pending wound care consult. Problems: Subjective 24 Hr Interval Summary Free Text/Dictation SR on tele, patient is awake, alert. Exam/Review of Systems Vital Signs Vitals Vital Signs Date Time Temp Pulse Resp B/P Pulse Ox O2 Delivery O2 Flow Rate FiO2 08/07/16 16:05 98.2 101 18 98/57 98 08/04/16 16:00 Room Air Intake and Output 08/06/16 08/06/16 08/07/16 15:00 23:00 07:00 Intake Total 1000 ml 1900 ml Output Total 1700 ml 400 ml Balance -700 ml 1500 ml Exam Constitutional: alert, oriented Psych: no complaints Head: normocephalic Eyes: nl conjunctiva ENMT: nl external ears & nose Neck: supple Respiratory: clear to auscultation, normal air movement Cardiovascular: other (Tachycardic at times), regular rate and rhythm Gastrointestinal: non-tender, other (Colostomy), soft Musculoskeletal: nl extremities to inspection Extremities: normal pulses 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: BUSINESS LAWYER II-XII intact Results Result Diagram: 08/05/16 0545 08/07/16 0535 Results 24 hrs Laboratory Tests Test 08/07/16 05:35 08/07/16 07:27 Anion Gap 15 Blood Urea Nitrogen 9 Calcium Level 7.8 L Carbon Dioxide Level 29 Chloride Level 105 Creatinine 0.54 Glucose Level 82 Potassium Level 4.2 Sodium Level 145 H Lab Scanned Report REFERENCE LAB Medications Medications Current Medications Ondansetron HCl (Zofran Inj) 4 mg Q6H PRN IV NAUSEA AND/OR VOMITING Last administered on 07/31/16t 23:46; Admin Dose 4 MG; Start 07/31/16 at 23:00 Acetaminophen (Tylenol Tab) 650 mg Q4H PRN PO PAIN AND OR ELEVATED TEMP; Start 07/31/16 at 23:00 Diphenhydramine HCl (Benadryl) 25 mg Q6H PRN IV PRURITUS Last administered on 02:51; Admin Dose 25 MG; Start 07/31/16 at 23:00 Lorazepam (Ativan) 0.5 mg Q6H PRN IV ANXIETY; Start 07/31/16 at 23:00 Enoxaparin Sodium (Lovenox) 30 mg DAILY SC Last administered on 08/07/16 09:31 ; Admin Dose 30 MG; Start 08/01/16 at 09:00 Famotidine (Pepcid) 20 mg BID PO Last administered on 08/07/16 09:25; Admin Dose 20 MG; Start 08/01/16 at 00:00 Albuterol (Ventolin Hfa) 2 puff Q4H PRN INH WHEEZING AND SOB; Start 08/02/16 at 18:00 Cyanocobalamin (Vitamin B12 Inj) 1,000 mcg Q28D IM Last administered on 23:34; Admin Dose 1,000 MCG; Start 08/02/16 at 23:00 Fluticasone Propionate (Flonase 0.05% Nasal) 1 spray DAILY PRN NASAL ALLERGIC REACTION; Start 08/02/16 at 18:00 Folic Acid (Folic Acid) 1 mg DAILY PO Last administered on 08/07/16 09:25; Admin Dose 1 MG; Start 08/03/16 at 09:00 Loratadine (Claritin) 10 mg DAILY PO Last administered on 08/07/16 09:24; Admin Dose 10 MG; Start 08/03/16 at 09:00 Midodrine (Proamatine) 2.5 mg BID@ GTB Last administered on 08/07/16 09: 25; Admin Dose 2.5 MG; Start 08/03/16 at 09:00 ROMI ESPINO Aug 07, 2016 16:14
--- NOTE | 2016-08-07 17:26 | CONS ---
Date/Time of Note Date/Time of Note DATE: 08/07/16 TIME: 17:25 Assessment/Plan Assessment/Plan Additional Assessment/Plan 41 yo Female with 1) Pre- Renal Azotemia 2) Hyponatremia 3) Hyperkalemia 4) Metabolic Acidosis 5) Hypomagnesemia 6) Hx of Hirschsprungs 7) Hx of Colostomy Cont current IVFs, Supplement electrolytes as needed Serum Na level is now normal Hyperkalemia has resolved, Hypomagnesemia Resolved Pre- Renal Azotemia Resolved Metabolic acidosis resolved DC planning as per PCP. Ok to DC from Renal standpoint Nephrology will sign off at this time, Re-Consult as needed. Thank you for the Opportunity to participate in the care of Ms Martin Please do not hesitate to contact me if you have any questions or concerns. Consultation Date/Type/Reason Admit Date/Time Jul 31, 2016 at 19:31 Initial Consult Date 08/02/16 Type of Consultation: Nephrology Referring Provider: CARLOS RODRIGUEZ MD 24 HR Interval Summary Constitutional: No requiring O2 Exam/Review of Systems Vital Signs Vitals Vital Signs Date Time Temp Pulse Resp B/P Pulse Ox O2 Delivery O2 Flow Rate FiO2 08/07/16 16:49 105 08/07/16 16:05 98.2 18 98/57 98 08/04/16 16:00 Room Air Intake and Output 08/06/16 08/06/16 08/07/16 15:00 23:00 07:00 Intake Total 1000 ml 1900 ml Output Total 1700 ml 400 ml Balance -700 ml 1500 ml Exam Constitutional: No distress Psych: anxiety Respiratory: No diminished breath sounds, No labored breathing Cardiovascular: No edema Gastrointestinal: soft 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: BUSINESS CENTER REPRESENTATIVE II-XII intact, nl mental status Results Result Diagram: 08/05/16 0545 08/07/16 0535 Results 24 hrs Laboratory Tests Test 08/07/16 05:35 08/07/16 07:27 Anion Gap 15 Blood Urea Nitrogen 9 Calcium Level 7.8 L Carbon Dioxide Level 29 Chloride Level 105 Creatinine 0.54 Glucose Level 82 Potassium Level 4.2 Sodium Level 145 H Lab Scanned Report REFERENCE LAB Medications Medications Current Medications Ondansetron HCl (Zofran Inj) 4 mg Q6H PRN IV NAUSEA AND/OR VOMITING Last administered on 07/31/16t 23:46; Admin Dose 4 MG; Start 07/31/16 at 23:00 Acetaminophen (Tylenol Tab) 650 mg Q4H PRN PO PAIN AND OR ELEVATED TEMP; Start 07/31/16 at 23:00 Diphenhydramine HCl (Benadryl) 25 mg Q6H PRN IV PRURITUS Last administered on 02:51; Admin Dose 25 MG; Start 07/31/16 at 23:00 Lorazepam (Ativan) 0.5 mg Q6H PRN IV ANXIETY; Start 07/31/16 at 23:00 Enoxaparin Sodium (Lovenox) 30 mg DAILY SC Last administered on 08/07/16 09:31 ; Admin Dose 30 MG; Start 08/01/16 at 09:00 Famotidine (Pepcid) 20 mg BID PO Last administered on 08/07/16 09:25; Admin Dose 20 MG; Start 08/01/16 at 00:00 Albuterol (Ventolin Hfa) 2 puff Q4H PRN INH WHEEZING AND SOB; Start 08/02/16 at 18:00 Cyanocobalamin (Vitamin B12 Inj) 1,000 mcg Q28D IM Last administered on 23:34; Admin Dose 1,000 MCG; Start 08/02/16 at 23:00 Fluticasone Propionate (Flonase 0.05% Nasal) 1 spray DAILY PRN NASAL ALLERGIC REACTION; Start 08/02/16 at 18:00 Folic Acid (Folic Acid) 1 mg DAILY PO Last administered on 08/07/16 09:25; Admin Dose 1 MG; Start 08/03/16 at 09:00 Loratadine (Claritin) 10 mg DAILY PO Last administered on 08/07/16 09:24; Admin Dose 10 MG; Start 08/03/16 at 09:00 Midodrine (Proamatine) 2.5 mg BID@ GTB Last administered on 08/07/16 09: 25; Admin Dose 2.5 MG; Start 08/03/16 at 09:00 KYMBERLY PASTOR MD Aug 07, 2016 17:26
[2016-08-08 05:22] LABS: POTASSIUM 3.4 mmol/L (3.5-5.1)
[2016-08-08 05:25] LABS: CREATININE 0.6 mg/dl (0.44-1.00)
[2016-08-08 05:26] LABS: CALCIUM 7.6 mg/dl (8.4-10.2)
[2016-08-08] MEDS ORDERED: POTASSIUM CHLORIDE (SR) 20 MEQ TAB PO ONE (06:00)
[2016-08-08 08:26] VITALS: BP 88/53; RESP 18
[2016-08-08] MEDS: FOLIC ACID 1 MG TAB PO SCH (08:32)
[2016-08-08] MEDS: FAMOTIDINE 20 MG TAB PO SCH ×2 (08:32→21:02)
[2016-08-08] MEDS: LORATADINE 10 MG TAB PO SCH (08:32)
[2016-08-08] MEDS: MIDODRINE 2.5 MG TAB GTB SCH ×2 (08:33→17:00)
[2016-08-08] MEDS: ENOXAPARIN 30 MG/0.3 ML SYG SC SCH (08:35)
[2016-08-08 15:15] VITALS: BP 95/60; PULSE 83; RESP 18
[2016-08-08 20:00] VITALS: BP 80/44; RESP 18
--- NOTE | 2016-08-08 20:48 | PN ---
Date/Time of Note Date/Time of Note DATE: 08/08/16 TIME: 20:46 Assessment/Plan VTE Prophylaxis VTE Prophylaxis Intervention: other Lines/Catheters IV Catheter Type (from Nrsg): Peripheral IV Assessment/Plan Assessment/Plan - Acute kidney injury secondary to dehydration, resolved - Hyponatremia, resolved. Dr. Reid is following in nephrology consultation - Hypokalemia, continue potassium replacement. - Hx of Hirschsprung disease - Colostomy, pending wound care consult. Subjective 24 Hr Interval Summary Eyes: no complaints ENT: no complaints Respiratory: no complaints Cardiovascular: no complaints Gastrointestinal: no complaints Genitourinary: no complaints Musculoskeletal: no complaints Skin: pruritis Neurologic: no complaints Endocrine: no complaints Exam/Review of Systems Vital Signs Vitals Vital Signs Date Time Temp Pulse Resp B/P Pulse Ox O2 Delivery O2 Flow Rate FiO2 08/08/16 15:15 97.4 83 18 95/60 98 Room Air Intake and Output 08/07/16 08/07/16 08/08/16 15:00 23:00 07:00 Intake Total 2200 ml 480 ml Output Total 2900 ml 1000 ml Balance -700 ml -520 ml Exam Constitutional: alert, frail Psych: nl mood/affect Head: atraumatic Eyes: EOMI, PERRL, nl sclera ENMT: nl external ears & nose Neck: non-tender Respiratory: clear to auscultation Cardiovascular: nl pulses Gastrointestinal: non-tender, soft Musculoskeletal: nl extremities to inspection Extremities: normal pulses 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: nl mental status, nl speech Skin: other Lymph: nontender Results Result Diagram: 08/05/16 0545 08/08/16 0455 Results 24 hrs Laboratory Tests Test 08/08/16 04:55 Anion Gap 10 # Blood Urea Nitrogen 11 Calcium Level 7.6 L Carbon Dioxide Level 32 H Chloride Level 101 Creatinine 0.60 Glucose Level 100 Potassium Level 3.4 L Sodium Level 140 Medications Medications Current Medications Ondansetron HCl (Zofran Inj) 4 mg Q6H PRN IV NAUSEA AND/OR VOMITING Last administered on 07/31/16t 23:46; Admin Dose 4 MG; Start 07/31/16 at 23:00 Acetaminophen (Tylenol Tab) 650 mg Q4H PRN PO PAIN AND OR ELEVATED TEMP; Start 07/31/16 at 23:00 Diphenhydramine HCl (Benadryl) 25 mg Q6H PRN IV PRURITUS Last administered on 02:51; Admin Dose 25 MG; Start 07/31/16 at 23:00 Lorazepam (Ativan) 0.5 mg Q6H PRN IV ANXIETY; Start 07/31/16 at 23:00 Enoxaparin Sodium (Lovenox) 30 mg DAILY SC Last administered on 08/08/16 08:35 ; Admin Dose 30 MG; Start 08/01/16 at 09:00 Famotidine (Pepcid) 20 mg BID PO Last administered on 08/08/16 08:32; Admin Dose 20 MG; Start 08/01/16 at 00:00 Albuterol (Ventolin Hfa) 2 puff Q4H PRN INH WHEEZING AND SOB; Start 08/02/16 at 18:00 Cyanocobalamin (Vitamin B12 Inj) 1,000 mcg Q28D IM Last administered on 23:34; Admin Dose 1,000 MCG; Start 08/02/16 at 23:00 Fluticasone Propionate (Flonase 0.05% Nasal) 1 spray DAILY PRN NASAL ALLERGIC REACTION; Start 08/02/16 at 18:00 Folic Acid (Folic Acid) 1 mg DAILY PO Last administered on 08/08/16 08:32; Admin Dose 1 MG; Start 08/03/16 at 09:00 Loratadine (Claritin) 10 mg DAILY PO Last administered on 08/08/16 08:32; Admin Dose 10 MG; Start 08/03/16 at 09:00 Midodrine (Proamatine) 2.5 mg BID@ GTB Last administered on 08/08/16 08: 33; Admin Dose 2.5 MG; Start 08/03/16 at 09:00 DEVENDRA GOMES Aug 08, 2016 20:47
[2016-08-09 05:56] LABS: POTASSIUM 3.9 mmol/L (3.5-5.1)
[2016-08-09 05:59] LABS: BASOPHIL # 0.1 10^3/ul (0.0-0.1); BASOPHILS % 0.7 % (0.0-2.0); CREATININE 0.82 mg/dl (0.44-1.00); EOSINOPHILS # 0.5 10^3/ul (0.0-0.5); EOSINOPHILS % 6.3 % (0.0-7.0); HEMOGLOBIN 12.1 g/dl (12.0-16.0); LYMPHOCYTES # 0.6 10^3/ul (0.8-2.9); LYMPHOCYTES % 7.5 % (15.0-51.0); MEAN CORPUSCULAR HEMOGLOBIN 30.9 pg (29.0-33.0); MEAN CORPUSCULAR HGB CONC 34.4 g/dl (32.0-37.0); MEAN CORPUSCULAR VOLUME 89.9 fl (82.0-101.0); MONOCYTE # 0.4 10^3/ul (0.3-0.9); MONOCYTES % 5.5 % (0.0-11.0); NEUTROPHIL # 6.2 10^3/ul (1.6-7.5); PLATELET COUNT 325 10^3/UL (140-440); RED BLOOD COUNT 3.89 10^6/ul (4.20-5.40); RED CELL DISTRIBUTION WIDTH 15.7 % (11.5-14.5); WHITE BLOOD COUNT 7.7 10^3/ul (4.8-10.8)
[2016-08-09 06:00] LABS: CALCIUM 9.1 mg/dl (8.4-10.2)
[2016-08-09 06:16] LABS: CONDITION 1; LH ANALYZER COMMENTS 1; NUCLEATED RED BLOOD CELLS # 0.2 10^3/ul (0.0-0.0); SUSPECT 1; UNCORRECTED WBC 8.9 10^3/ul (4.8-10.8)
[2016-08-09 08:17] VITALS: BP 92/51; RESP 22
[2016-08-09 08:30] VITALS: RESP 18
[2016-08-09] MEDS: FAMOTIDINE 20 MG TAB PO SCH ×2 (09:05→20:33)
[2016-08-09] MEDS: LORATADINE 10 MG TAB PO SCH (09:05)
[2016-08-09] MEDS: FOLIC ACID 1 MG TAB PO SCH (09:05)
[2016-08-09] MEDS: ENOXAPARIN 30 MG/0.3 ML SYG SC SCH (09:06)
[2016-08-09] MEDS: MIDODRINE 2.5 MG TAB GTB SCH ×2 (09:19→17:11)
[2016-08-09 20:02] VITALS: BP 90/53; RESP 20
--- NOTE | 2016-08-10 13:51 | DS ---
DATE OF ADMISSION: 07/31/2016 DATE OF DISCHARGE: 08/09/2016 FINAL DIAGNOSES: 1. Acute kidney injury secondary to dehydration, resolved. 2. Hyponatremia, resolved. 3. Hypokalemia, status post replacement, resolved. 4. History of Hirschsprung disease. 5. Colostomy. BRIEF HISTORY: The patient is a 41-year-old female with Hirschsprung disease and colostomy. Radha escobedo also with history of anemia, was evaluated and followed by Dr. Flaherty in hematology consultation. Patient presented to the emergency room with complaint of heartburn, neck pain and hiccups. The andreas ojeda also stated that she has been vomiting for the last couple of days. [facility] evaluation [facility], patient was noted to have a potassium elevated to 6.5 and sodium was 121. The patient w as admitted for further evaluation and management. HOSPITAL COURSE: The patient was followed by Dr. Phan in nephrology consultation. Patient was started on IV fluids with normal saline. Patient was also given treatment for hyperkalemia. The andreas ojeda complains of irritation around colostomy site and was obtained a wound care consult with [facility]. The patient's condition improved and electrolytes were stabilized. The patient was abl e to maintain fluid balance when IV fluids were stopped and patient's condition improved. The marko das denied any nausea or vomiting, was able to tolerate diet well. The patient is discharged home. CONDITION ON DISCHARGE: Hemodynamically stable. ACTIVITY: As patient tolerates. DIET: Regular diet. DISCHARGE MEDICATIONS: The patient is to continue her home medications: 1. Albuterol. 2. Vitamin B12. 3. Pepcid. 4. Fluconazole. 5. Folic acid. 6. Vistaril 7. Loratadine. 8. Magnesium chloride 128 mg p.o. b.i.d. 9. Potassium chloride 30 mEq p.o. daily. DISCHARGE INSTRUCTIONS: The patient is instructed to follow up with her primary care physician in 1 week and [facility] in 1 week and additional plan of care was established for this patient. Plan of care was discussed with Dr. Rodriguez. Dictated By: ROMI ESPINO COMPUTER ENGINEERING TECHNICIAN for CARLOS RODRIGUEZ MD SR/NTS Conf#: [id number] DID#: [id number]
== END 2016-08-09 22:37 | disposition home or self-care (01) | DRG 683 ==
LOC: E/R 14:30 → MS4 19:31 → PP2 08-07 18:06
PROVIDERS: ADMIT Internal Medicine; ATTEND Internal Medicine
DX: N17.9 Acute kidney failure, unspecified (principal); E87.1 Hypo-osmolality and hyponatremia; E87.2 Acidosis; Z68.1 Body mass index [BMI] 19.9 or less, adult; D69.6 Thrombocytopenia, unspecified; E86.0 Dehydration; E83.42 Hypomagnesemia; E87.6 Hypokalemia; F41.9 Anxiety disorder, unspecified; Z93.3 Colostomy status; Z88.2 Allergy status to sulfonamides; Z87.19 Personal history of other diseases of the digestive system; Z88.6 Allergy status to analgesic agent; Z90.49 Acquired absence of other specified parts of digestive tract
CPT/HCPCS: 71010; 74000; 80048; 81001; 81003; 82962; 83735; 83970; 84132; 84484; 84703; 85025; 86850; 86900; 86901; 87086; 93005; 94664; 96374; 96375; J1200; J1650; J1815; J2405; J3420; J3475; J3480; J7030

== ENCOUNTER 2016-08-15 12:23 | Inpatient (IN) | payer OTHER ==
[~2016-08-15] VITALS: Wt 36.0 kg
[2016-08-15] MEDS ORDERED: morphine 2 MG INJ IV STA (15:43)
[2016-08-15] MEDS ORDERED: SOD CHLORIDE 0.9% 1,000 ML IV STA (15:43)
[2016-08-15] MEDS ORDERED: ONDANSETRON 4 MG INJ IV STA (15:43)
--- NOTE | 2016-08-15 16:18 | RADRPT ---
PROCEDURE: Chest Radiograph. CLINICAL INDICATION: Abdominal pain TECHNIQUE: Single frontal chest radiograph. COMPARISON: Chest radiograph 07/31/2016 FINDINGS: The cardiomediastinal silhouette is within normal limits. There is a 1.7 cm nodule overlying the le ft infrahilar region, which may represent a nipple shadow. No infiltrate or effusion is seen. The bones are intact. IMPRESSION: 1. 1.7 cm left infrahilar nodule. This finding may represent a nipple shadow. Recommend repeat ch est radiograph with nipple markers versus CT chest as clinically indicated. 2. No evidence of acute cardiopulmonary disease. RPTAT: KK .José Awan MD, Date Time Electronically viewed and signed by .José Awan MD, MD on 08/15/2016 16:18 .B/
[2016-08-15 16:34] LABS: BASOPHIL # 0.1 10^3/ul (0.0-0.1); BASOPHILS % 0.4 % (0.0-2.0); EOSINOPHILS % 0.2 % (0.0-7.0); HEMATOCRIT 45.4 % (37.0-47.0); HEMOGLOBIN 15.5 g/dl (12.0-16.0); LYMPHOCYTES # 0.5 10^3/ul (0.8-2.9); LYMPHOCYTES % 4.1 % (15.0-51.0); MEAN CORPUSCULAR HEMOGLOBIN 30.8 pg (29.0-33.0); MEAN CORPUSCULAR HGB CONC 34.1 g/dl (32.0-37.0); MEAN CORPUSCULAR VOLUME 90.4 fl (82.0-101.0); MEAN PLATELET VOLUME 7.6 fl (7.4-10.4); MONOCYTE # 0.4 10^3/ul (0.3-0.9); NEUTROPHIL # 11.8 10^3/ul (1.6-7.5); NEUTROPHILS % 92.3 % (39.0-77.0); PLATELET COUNT 514 10^3/UL (140-440); RED BLOOD COUNT 5.03 10^6/ul (4.20-5.40); RED CELL DISTRIBUTION WIDTH 16.5 % (11.5-14.5); UNCORRECTED WBC 12.8 10^3/ul (4.8-10.8); WHITE BLOOD COUNT 12.8 10^3/ul (4.8-10.8)
[2016-08-15 16:41] LABS: CONDITION 1; LH ANALYZER COMMENTS 1
[2016-08-15 16:56] LABS: ALBUMIN 5.1 g/dl (3.3-4.9)
[2016-08-15 16:57] LABS: POTASSIUM 4.7 mmol/L (3.5-5.1)
[2016-08-15 16:59] LABS: ALBUMIN/GLOBULIN RATIO 1.21; BILIRUBIN,INDIRECT 0.5 mg/dl (0-1.1); BILIRUBIN,TOTAL 0.5 mg/dl (0.2-1.3); CREATININE 1.91 mg/dl (0.44-1.00); TOTAL PROTEIN 9.3 g/dl (6.1-8.1)
[2016-08-15] MEDS ORDERED: PIPER-TAZO 2.25 GM (PMX) 50 ML IVPB STA (17:09)
--- NOTE | 2016-08-15 17:16 | ERA ---
ER Documentation Chief Complaint Date/Time DATE: 08/15/16 TIME: 17:13 Chief Complaint VOMITING AND WEAKNESS FOR A FEW DAYS. MILD ABD PAIN. LIQUID FROM COLOSTOMY HPI 41-year-old female with a history of Hirschsprung's disease with multiple abdominal surgeries and ileostomy presenting with vomiting for 2 days. Vomiting is nonbloody. Yellow/green in color. She has associated diffuse abdominal pain. No fevers or chills. Most of the history is taken from the patient's mother as the patient has recurrent vomiting during my interview. She has had decreased output from the ileostomy as well as decreased urine output. She complains of generalized cramping all over her body. ROS All systems reviewed and are negative except as per history of present illness. Medications Home Meds Reported Medications Hydroxyzine Pamoate* (Vistaril*) 25 Mg Capsule, 25 MG PO QHS Y for ITCHING, CAP 11/02/15 Nystatin-Triamcinolone* (Nystatin-Triamcinolone* Oint) 15 Gm Oint..gm., 1 APPLIC TOP DAILY, TUB 11/02/15 Albuterol Sulfate* (Proair HFA*) 8.5 Gm Hfa.aer.ad, 2 PUFF INH Q4H Y for WHEEZING AND SOB, #1 INHALER 11/02/15 Loratadine* (Loratadine*) 10 Mg Tablet, 10 MG PO DAILY, TAB 11/02/15 Folic Acid* (Folic Acid*) 1 Mg Tablet, 1 MG PO DAILY, TAB 11/02/15 Fluticasone Propionate* (Fluticasone Propionate* Nasal) 50 Mcg/Gasquet - 16 Gm Gasquet.susp, 1 SPRAY NASAL DAILY Y for ALLERGIC REACTION, BOTTLE TO EACH NOSTRIL 11/02/15 Famotidine* (Famotidine*) 20 Mg Tablet, 20 MG PO BID, TAB 11/02/15 Cyanocobalamin* (Vitamin B-12* Inj) 1,000 Mcg/Ml Vial, 1000 MCG IM Q28D, VIAL 11/02/15 Discontinued Scripts Potassium Chloride (Potassium Chloride) 20 Meq Packet, 30 MEQ PO DAILY for 14 Days, PACKET Prov:ROMI ESPINO 07/26/16 Magnesium Chloride* (Mag 64*) 64 Mg Tabsr, 128 MG PO BID for 14 Days, TAB Prov:ROMI ESPINO 07/26/16 Allergies Allergies: Coded Allergies: ferrous sulfate (Verified Allergy, Severe, 08/15/16) ANY FORM OF FERROUS codeine (Verified Allergy, Unknown, 08/15/16) PMhx/Soc History of Surgery: Yes (Colectomy with ileostomy) Anesthesia Reaction: No Hx 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 Disorder: No Hx Respiratory Disorders: No Hx Cardiac Disorders: Yes (ST) Hx Psychiatric Problems: No Hx Miscellaneous Medical Probl: Yes (HIRSCHPRUNG DISEASE ANEMIA) Hx Alcohol Use: No Hx Substance Use: No Hx Tobacco Use: No Smoking Status: Never smoker FmHx Family History: No diabetes Physical Exam Vitals Vital Signs Date Time Temp Pulse Resp B/P Pulse Ox O2 Delivery O2 Flow Rate FiO2 08/15/16 21:01 98.5 99 18 97/61 100 Room Air 08/15/16 17:31 96 20 110/72 99 08/15/16 12:28 98.5 114 20 109/59 99 Physical Exam Const: Ill-appearing, actively vomiting Head: Atraumatic Eyes: Normal Conjunctiva ENT: Dry mucous membranes Neck: Full range of motion.No meningismus. Resp: Clear to auscultation bilaterally Cardio: Tachycardic with regular rhythm, no murmurs Abd: Multiple surgical scars noted. Ileostomy noted with very little yellowish output. Nondistended. Diffusely tender to palpation. No rebound or guarding.Normal bowel sounds Skin: No petechiae or rashes Back: No midline or flank tenderness Ext: No cyanosis, or edema Neur: Awake and alert Psych: Normal Mood and Affect Result Diagram: 08/15/16 1620 08/15/16 1620 Results 24 hrs Laboratory Tests Test 08/15/16 16:20 08/15/16 18:00 08/15/16 21:45 Alanine Aminotransferase (ALT/SGPT) 62IU/L Albumin 5.1g/dl Albumin/Globulin Ratio 1.21 Alkaline Phosphatase 135IU/L Anion Gap 33 Aspartate Amino Transf (AST/SGOT) 55IU/L Basophils # 0.110^3/ul Basophils % 0.4% Blood Morphology Comment Blood Urea Nitrogen 81mg/dl Calcium Level 8.0mg/dl Carbon Dioxide Level 10mmol/L Chloride Level 86mmol/L Creatinine 1.91mg/dl Differential Comment AUTO w/SCAN Direct Bilirubin 0.00mg/dl Eosinophils # 0.010^3/ul Eosinophils % 0.2% Globulin 4.20g/dl Glucose Level 149mg/dl Hematocrit 45.4% Hemoglobin 15.5g/dl Indirect Bilirubin 0.5mg/dl Lipase 48U/L Lymphocytes # 0.510^3/ul Lymphocytes % 4.1% Mean Corpuscular Hemoglobin 30.8pg Mean Corpuscular Hemoglobin Concent 34.1g/dl Mean Corpuscular Volume 90.4fl Mean Platelet Volume 7.6fl Monocytes # 0.410^3/ul Monocytes % 3.0% Neutrophils # 11.810^3/ul Neutrophils % 92.3% Nucleated Red Blood Cells # 0.010^3/ul Nucleated Red Blood Cells % 0.0/100WBC Platelet Count 23987^3/UL Potassium Level 4.7mmol/L Red Blood Count 5.0310^6/ul Red Cell Distribution Width 16.5% Sodium Level 124mmol/L Total Bilirubin 0.5mg/dl Total Protein 9.3g/dl White Blood Count 12.810^3/ul Urine Bacteria FEW Urine Bilirubin NEGATIVE Urine Clarity SLIGHTLY CLOUDY Urine Color LT. YELLOW Urine Fine Granular Casts FEW Urine Glucose NEGATIVE% Urine Hemoglobin NEGATIVE Urine Hyaline Casts MANY Urine Ketones NEGATIVE Urine Leukocyte Esterase NEGATIVE Urine Microscopic RBC 0-2/HPF Urine Microscopic WBC 0-2/HPF Urine Nitrite NEGATIVE Urine Test NEGATIVE Urine Random Potassium 43.4mmol/L Urine Random Sodium < 13mmol/L Urine Specific [place] 1.020 Urine Squamous Epithelial Cells MANY Urine Total Protein 1+ Urine Urobilinogen 0.2 E.U./dL Urine pH 6.0 Activated Partial Thromboplast Time 29.2Sec INR International Normalized Ratio 0.98 Lactic Acid Level 3.6mmol/L Prothrombin Time 13.0Sec Prothrombin Time Ratio 1.0 Current Medications Medications (Trade) Dose Ordered Sig/Elvie Route PRN Reason Start Time Stop Time Status Last Admin Dose Admin Sodium Chloride (NS) 1,000 ml @ 1,000 mls/hr Q1H STAT IV 08/15/16 15:43 08/15/16 16:42 DC 08/15/16 16:11 Morphine Sulfate (morphine) 2 mg ONCE STAT IV 08/15/16 15:43 08/15/16 15:44 DC 08/15/16 16:11 Ondansetron HCl 4 mg 4 mg ONCE STAT IV 08/15/16 15:43 08/15/16 15:44 DC 08/15/16 16:11 Piperacillin Sod/ Tazobactam Sod (Zosyn 2.25gm/ 50ml (Pmx)) 50 ml @ 200 mls/hr ONCE STAT IVPB 08/15/16 17:09 08/15/16 17:23 DC 08/15/16 17:58 Ondansetron HCl (Zofran Inj) 4 mg ER BRIDGE PRN IV NAUSEA AND/OR VOMITING 08/15/16 20:30 08/16/16 20:29 08/15/16 22:25 Acetaminophen (Tylenol Tab) 650 mg ER BRIDGE PRN PO MILD PAIN/FEVER 08/15/16 20:30 08/16/16 20:29 Procedures/MDM Patient is presenting with several days of vomiting with decreased output from her ileostomy. IV fluids were initiated. Broad spectrum antibiotics were given as there was a concern for sepsis. However I suspect her acidosis, tachycardia and leukocytosis are related to severe dehydration with acute renal failure rather than a serious bacterial infection. Patient's symptoms improved significantly after pain and nausea medications and 30 ml/kg of IVF. However, her symptoms have not completely stabilized and the patient is at risk of rapid decompensation. CT of the abdomen and pelvis is most consistent with ileus. The patient will be admitted for careful hydration and bowel rest. I do not suspect an acute SBO at this time, so surgical consultation is not currently necessary. I have a low suspicion for ischemic bowel. Severe Sepsis Assessment: Infectious Source: Possibly intra-abdominal End organ damage indicated by: Lactate>2 Severe Sepsis Management: Blood Cultures X 2 before broad spectrum antibiotics initiated within 3 hours of recognition. 30 ml/kg NS bolus Completed Initial Lactate: 3.6 ( delayed secondary to poor IV access and difficulty with blood draw) Repeat Lactate pending Critical Care: Time: 35 minutes Treatments/Evaluations: Emergent fluid management, while maintaining close respiratory support. Immediate broad spectrum antibiotic therapy. Simultaneous assessment for possible sources in order to direct therapy. Consideration for invasive and chemical support to prevent respiratory or cardiac collapse. Accepting Care Team: Current data and ongoing care discussed. Time: Time of admission Primary Provider: Jeannine Consulting: none Outstanding Data: cultures Departure Diagnosis: Primary Impression: Acute vomiting Additional Impressions: Acute renal failure Qualified Code: N17.9 - Acute renal failure, unspecified acute renal failure type Dehydration with hyponatremia Ileus Metabolic acidosis Uremia Condition: Serious EKJOCELIN RUDOLPH MD Aug 15, 2016 17:16
[2016-08-15 18:46] LABS: ADD UMIC YES; URINE BILIRUBIN (Dip) NEGATIVE (NEGATIVE); URINE BLOOD (Dip) NEGATIVE (NEGATIVE); URINE COLOR LT. YELLOW (YELLOW); URINE GLUCOSE (Dip) NEGATIVE (NEGATIVE); URINE KETONES (Dip) NEGATIVE (NEGATIVE); URINE LEUKOCYTE ESTERASE (Dip) NEGATIVE (NEGATIVE); URINE NITRITE (Dip) NEGATIVE (NEGATIVE); URINE TOTAL PROTEIN (Dip) 1+ (NEGATIVE); URINE UROBILINOGEN (Dip) 0.2 E.U./dL (0.1-1.0)
[2016-08-15 19:03] LABS: BACTERIA,URINE FEW; SQUAMOUS EPITHELIAL CELL,UR MANY; URINE RBCS 0-2 /HPF (0)
--- NOTE | 2016-08-15 19:56 | RADRPT ---
PROCEDURE: CT Abdomen and Pelvis without contrast. CLINICAL INDICATION: Abdominal pain and vomiting, back pain, shortness of breath, history of Hirsc hsprung's disease with multiple surgeries, bowel sounds are hypoactive TECHNIQUE: CT scan of the abdomen and pelvis without contrast was performed on a multidetector hig h-resolution CT scanner. The patient was scanned without intravenous contrast. No oral contrast was administered. Coronal and sagittal reformatted images were obtained from the axial source images. Im ages were reviewed on a high-resolution PACS workstation. The total exam CTDI equals 3.93 mGy and t he total exam DLP equals 204.17 mGy-cm. One or more of the following dose reduction techniques were used: - Automated exposure control. - Adjustment of the mA and/or kV according to patient size. - Use of iterative reconstruction technique. COMPARISON: Abdominal radiographs of 08/02/2016 FINDINGS: Lungs: Minimal dependent atelectasis at right lung base posteriorly. Liver: No abnormality seen. Gallbladder: No gallbladder seen suggestive of cholecystectomy. Spleen: No abnormality seen. Stomach: Radiopaque likely tablet in the gastric fundus. Pancreas: No abnormality seen. Adrenals: No abnormality seen. Kidneys: No abnormality seen. Abdominal aorta: No aneurysm seen. Lymph nodes: No enlarged lymph nodes are seen. Small bowel: There is a right lower ileostomy. There are dilated small bowel loops measuring up to approximately 3.9 cm containing air and fluid in the left lower abdomen with nondilated small bowel loops as well which could be secondary to small bowel ileus. No definite transition from dilated to nondilated small bowel loops are seen. Small bowel obstruction is possible. Colon: The patient appears to be status post colectomy. There is the suggestion of a blind loop of b owel in the rectal region. Appendix: Not seen Bladder: No abnormality seen Pelvic organs: No abnormality seen Ascites: None seen. Osseous structures: Mild degenerative changes at sacroiliac joints. Very small scattered likely [place]. Schmorl's nodes in thoracolumbar spine. IMPRESSION: The patient appears to be status post colectomy. 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 There is a right lower ileostomy. There are dilated small bowel loops measuring up to approximately 3.9 cm containing air and fluid in the left lower abdomen with nondilated small bowel loops as well which could be secondary to small bowel ileus. No definite transition from dila chel to nondilated small bowel loops are seen. Small bowel obstruction is possible. Please see above . A call report was made to <<Referring Physicians Name>> on <<DATETIME>>. RPTAT: HJES .Cristian Torres MD, MD Date Time Electronically viewed and signed by .Cristian Torres MD, MD on 08/15/2016 19:55 .S/
[2016-08-15] MEDS ORDERED: ONDANSETRON 4 MG INJ IV PRN (20:30)
[2016-08-15] MEDS ORDERED: ACETAMINOPHEN 325 MG TAB PO PRN (20:30)
[2016-08-15 22:11] LABS: POTASSIUM,URINE RANDOM 43.4 mmol/L (25-125)
[2016-08-15 22:25] LABS: INR 0.98; PARTIAL THROMBOPLASTIN TIME 29.2 Sec (25.0-35.0)
[2016-08-16] MEDS ORDERED: morphine 4 MG/ML VIAL IV PRN (03:00)
[2016-08-16] MEDS: SOD CHLORIDE 0.9% 1,000 ML IV SCH ×2 (06:05→16:23)
[2016-08-16] MEDS: PANTOPRAZOLE 40 MG INJ IV SCH (06:05)
[2016-08-16 07:57] LABS: BASOPHILS % 0.1 % (0.0-2.0); EOSINOPHILS # 0.1 10^3/ul (0.0-0.5); EOSINOPHILS % 2.2 % (0.0-7.0); HEMATOCRIT 45.1 % (37.0-47.0); HEMOGLOBIN 15.5 g/dl (12.0-16.0); LYMPHOCYTES # 0.5 10^3/ul (0.8-2.9); LYMPHOCYTES % 7.2 % (15.0-51.0); MEAN CORPUSCULAR HEMOGLOBIN 31.3 pg (29.0-33.0); MEAN CORPUSCULAR HGB CONC 34.5 g/dl (32.0-37.0); MEAN CORPUSCULAR VOLUME 90.8 fl (82.0-101.0); MEAN PLATELET VOLUME 7.6 fl (7.4-10.4); MONOCYTE # 0.5 10^3/ul (0.3-0.9); MONOCYTES % 7.1 % (0.0-11.0); NEUTROPHIL # 5.7 10^3/ul (1.6-7.5); NEUTROPHILS % 83.4 % (39.0-77.0); PLATELET COUNT 485 10^3/UL (140-440); RED BLOOD COUNT 4.97 10^6/ul (4.20-5.40); RED CELL DISTRIBUTION WIDTH 16.7 % (11.5-14.5); UNCORRECTED WBC 6.8 10^3/ul (4.8-10.8); WHITE BLOOD COUNT 6.8 10^3/ul (4.8-10.8)
[2016-08-16 08:02] LABS: POTASSIUM 4.9 mmol/L (3.5-5.1)
[2016-08-16 08:05] LABS: CREATININE 1.48 mg/dl (0.44-1.00)
[2016-08-16 08:06] LABS: CALCIUM 8.4 mg/dl (8.4-10.2); MAGNESIUM 1.7 mg/dl (1.7-2.5)
[2016-08-16 08:30] VITALS: TEMP 98.1
[2016-08-16 08:36] LABS: CONDITION 1; LH ANALYZER COMMENTS 1
--- NOTE | 2016-08-16 15:24 | HP ---
DATE OF ADMISSION: 08/15/2016 CHIEF COMPLAINT: Vomiting and weakness for a couple of days with abdominal pain and greenish liquid stool from ileostomy. HISTORY OF PRESENT ILLNESS: The patient is a 41-year-old female known to me from previous admission s. 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 The patient also with ileostomy. The patient stated that she has been vomiting, nonbloody bilious emesis for 2 days associated with abdominal pain. The patient underwent a CT scan of the abdomen a nd pelvis with notion of dilated small bowel loops measuring approximately 3.9 cm, containing air an d fluid in the left lower abdomen and with nondilated small bowel loops which could represent small bowel ileus. The patient was given Zofran and IV fluids. The patient was also noted to have elevat ed white blood cells at 12.8 on admission and elevated creatinine to 1.9 and BUN. The patient is ad mitted to medical/surgical floor for further evaluation and management. PAST MEDICAL HISTORY: Per HPI. PAST SURGICAL HISTORY: Status post ileostomy, status post peptic ulcer disease, status post cathete rization. SOCIAL HISTORY: The patient lives at home with her mother. The patient denies any alcohol use, den ies any illicit drug use, and denies any tobacco use. FAMILY HISTORY: The patient's mother has diabetes. ALLERGIES: THE PATIENT IS ALLERGIC TO . MEDICATIONS ON ADMISSION: 1. Albuterol sulfate. 2. Vitamin B12. 3. Pepcid. 4. Flonase. 5. Folic acid. 6. Vistaril. 7. Claritin. 8. Nystatin. 9. Klor-Con 30 mEq daily. 10. Magnesium supplements. REVIEW OF SYSTEMS: A 12-point review of systems is negative unless what mentioned in the HPI. The patient denies any fever, denies chest pain, denies shortness of breath. PHYSICAL EXAMINATION: GENERAL: Well-developed female currently is awake, alert. VITAL SIGNS: Temperature is 98.5, pulse is 92, blood pressure is 86/54, respiratory rate 23, oxygen saturation 100% on room air. HEENT: Head is atraumatic, normocephalic. Pupils equal, round, reactive to light and accommodation . Oral mucosa pink, moist. NECK: Supple, no cervical lymphadenopathy, no thyromegaly. CHEST: Lungs clear bilaterally. There are no rhonchi, wheezes, or rales noted. CARDIOVASCULAR: Normal S1, S2. No murmurs, gallops, clicks, or rubs noted. ABDOMEN: Flat, soft, nondistended, nontender. The patient has a right lower quadrant ileostomy wit h pink stoma. EXTREMITIES: No edema, clubbing, cyanosis. Pulses equal bilaterally 2+. SKIN: There is no rash, petechiae noted. NEUROLOGIC: The patient is awake, alert, and oriented x4. No focal deficits noted. Motor strength 5/5 in all extremities. LABORATORY DATA: On admission, CBC: White blood cells 12.8, hemoglobin 15.5, hematocrit 45.4, plat elets 514. Chemistry: Sodium is 124, potassium 4.7, chloride 86, carbon dioxide 10, anion gap 33, BUN is 81, creatinine 1.91, glucose 149, calcium is 8.0, AST is 55, ALT is 62, alkaline phosphatase is 135. Lipase is 48. Lactic acid is 3.6. ASSESSMENT AND PLAN: 1. Intractable nausea and vomiting. Continue Zofran p.r.n. for nausea. 2. Possible ileus per CT scan. We will continue the patient n.p.o., continue IV fluids. 3. Acute renal failure with hyponatremia, most likely secondary to dehydration. We will continue I V fluids. Dr. Winter will be following the patient from nephrology standpoint. 4. Metabolic acidosis. Continue morphine for pain and Zofran p.r.n. for nausea. 5. Protonix for peptic ulcer disease prophylaxis. We will ask Dr. Mendez to see patient in gastroe nterology consultation. The patient also received Zosyn in the emergency room. 6. Continue to monitor CBC, CMP, and magnesium. Further recommendations based on clinical course. Plan of care discussed with Dr. Rodriguez. Dictated By: ROMI ESPINO NURSE PRACTITIONER PER DIEM for CARLOS RODRIGUEZ MD SR/NTS Conf#: [id number] DID#: [id number]
[2016-08-16 20:00] VITALS: BP 95/54; PULSE 81; RESP 18
[2016-08-16] MEDS ORDERED: FAMOTIDINE 20 MG TAB PO SCH (21:00)
[2016-08-16 21:49] VITALS: BP 95/54; RESP 20
[2016-08-17] MEDS: SOD CHLORIDE 0.9% 1,000 ML IV SCH ×3 (02:33→22:21)
[2016-08-17] MEDS: PANTOPRAZOLE 40 MG INJ IV SCH (05:28)
[2016-08-17 06:14] LABS: ALBUMIN 4.2 g/dl (3.3-4.9)
[2016-08-17 06:15] LABS: POTASSIUM 3.4 mmol/L (3.5-5.1)
[2016-08-17 06:17] LABS: TOTAL PROTEIN 7.7 g/dl (6.1-8.1)
[2016-08-17 06:18] LABS: ALBUMIN/GLOBULIN RATIO 1.2; CALCIUM 8.2 mg/dl (8.4-10.2); MAGNESIUM 1.7 mg/dl (1.7-2.5)
[2016-08-17 06:46] LABS: HEMATOCRIT 33.1 % (37.0-47.0); HEMOGLOBIN 11.3 g/dl (12.0-16.0); LYMPHOCYTES % 6.9 % (15.0-51.0); MEAN CORPUSCULAR HEMOGLOBIN 30.8 pg (29.0-33.0); MEAN CORPUSCULAR HGB CONC 34.1 g/dl (32.0-37.0); MEAN CORPUSCULAR VOLUME 90.2 fl (82.0-101.0); MEAN PLATELET VOLUME 9.7 fl (7.4-10.4); NEUTROPHILS % 76.2 % (39.0-77.0); PLATELET COUNT 371 10^3/UL (140-440); RED BLOOD COUNT 3.67 10^6/ul (4.20-5.40); RED CELL DISTRIBUTION WIDTH 16.3 % (11.5-14.5); WHITE BLOOD COUNT 7.9 10^3/ul (4.8-10.8)
[2016-08-17 06:47] LABS: BASOPHILS % 0.5 % (0.0-2.0); EOSINOPHILS # 0.4 10^3/ul (0.0-0.5); EOSINOPHILS % 5.2 % (0.0-7.0); LYMPHOCYTES # 0.5 10^3/ul (0.8-2.9); MONOCYTE # 0.8 10^3/ul (0.3-0.9); MONOCYTES % 10.6 % (0.0-11.0)
--- NOTE | 2016-08-17 07:38 | CONS ---
DATE OF ADMISSION: 08/15/2016 DATE OF CONSULTATION: The patient is located in room 425. HISTORY OF PRESENT ILLNESS: This is a 41-year-old para 0, 0, single female who has been admitted here several times. The reviewer is advised to contact old records for further details. Please note that the patient has been maintained on multiple medications including albuterol, nystatin cream, Claritin , folic acid, fluticasone nasal spray, Pepcid, vitamin B12, potassium chloride, magnesium chloride. The patient was apparently brought to the emergency room with the chief complaints of nausea, vomiting, diarrhea. She had a history of Hirschsprung's disease status post ileostomy. She has also abdominal pain. No fever. There has been no bleeding from any source. His lab work in the hospital has revealed low sodium and high BUN and creatinine. Nephrology consultation therefore kindly requested. Hospital record further reveals that the white count is 12.8, hematocrit is 45. Sodium 124, potassium 4.7, chloride 86, CO2 is 10, BUN is 81, creatinine 1.9. A urinalysis is not available. The patient has already been placed on normal saline, IV fluids and albumin 5.1, and enzymes are normal. A urinalysis shows some sodium of less than 13, osmolarity is 1020 and many squamous cells. INR is 1. The rest of the past history is important to note that the patient had a similar problem with a previous admission when her prerenal azotemia had improved with IV fluids alone. At the time of last discharge her white count was normal, hematocrit 35% and electrolytes were normal. BUN 18, creatinine 0.8. CO2 is also normal at 32 on the high side. The patient's urine culture shows mixed organisms which is probably contamination and her present regimen in addition to the IV fluids includes morphine for pain, Zofran for nausea, and Protonix IV. There is no use of diuretics. The patient has not been drinking excessive amounts of water and has been eating poorly, of course. PAST MEDICAL HISTORY: The rest of the past, personal and family history refer to the hospital record. The patient has been more cachectic throughout her multiple admissions and remains confined to bed. She has no other complaints.The reason for this is not clear and may have some psychological basis PHYSICAL EXAMINATION: GENERAL: Reveals the patient to be thinly built, cachectic looking, Latin female who appears to be in no acute distress. VITAL SIGNS: Blood pressure has been low and presently improved to 108/73, though earlier it has been 86/61, heart rate is 90 with maximum of 112, respiration is 15%, and temperature is 98.1. HEAD, EAR, NOSE, THROAT: Unremarkable. EYES: Pale conjunctivae. Sclerae are anicteric. NOSE: Normal mucosa. THROAT: Tongue is pale. No pharyngeal congestion. NECK: Supple. No JVD, lymph node. Thyroid present. CHEST: Symmetrical. BREASTS: Not examined. HEART: Regular rhythm, S1 unremarkable. ABDOMEN: Flat, soft. Ileostomy in place, no further examination carried out. GENITALIA: Not examined. EXTREMITIES: No cyanosis, clubbing, edema. SKIN: Shows some changes of hyperkeratosis, especially on forehead. IMPRESSION: 1. History of Hirschsprung's disease status post ileostomy. 2. Electrolyte imbalance related to above and poor dietary intake. 3. Azotemia, prerenal, improving. 4. Cachexia. DISCUSSION: This unfortunate patient has multiple medical problems. Renal- sanderson speaking, she has severe hypovolemia associated with hypovolemic hyponatremia. This is responding well to the normal saline replacement which I would continue for the time being. Whether she has some other endocrine possible etiologies to the present picture is less likely because, as like before she is well responding to the IV fluid therapy, and we will follow the clinical course closely. I will leave the rest of the management in your good hands. Dictated By: WANDA NICK/CRISTINA Conf#: [id number] DID#: [id number] MTDD
[2016-08-17 07:39] VITALS: BP 90/51; RESP 16
--- NOTE | 2016-08-17 07:43 | CONS ---
Date/Time of Note Date/Time of Note DATE: 08/17/16 TIME: 07:42 Assessment/Plan Assessment/Plan Additional Assessment/Plan 1. History of Hirschsprung's disease status post ileostomy. 2. Electrolyte imbalance 3. Azotemia, prerenal, improving. 4. Cachexia. 5, Metabolic acidosis. Cont current Rx and plan Cont to monitor UO, Electrolytes and renal function Stable and improved Consultation Date/Type/Reason Admit Date/Time Aug 15, 2016 at 20:21 Initial Consult Date Type of Consultation: Nephrology Reason for Consultation MELBA, Electrolyte abnormality Referring Provider: CARLOS RODRIGUEZ MD Exam/Review of Systems Vital Signs Vitals Vital Signs Date Time Temp Pulse Resp B/P Pulse Ox O2 Delivery O2 Flow Rate FiO2 08/16/16 21:49 97.4 81 20 95/54 98 08/16/16 20:00 Room Air Intake and Output 08/16/16 08/16/16 08/17/16 15:00 23:00 07:00 Intake Total 1660 ml 700 ml Output Total 800 ml 800 ml Balance 860 ml -100 ml Results Result Diagram: 08/17/16 0452 08/17/16 0452 Results 24 hrs Laboratory Tests Test 08/16/16 17:50 08/17/16 04:52 Urine Osmolality 461 Alanine Aminotransferase (ALT/SGPT) 44 Albumin 4.2 Albumin/Globulin Ratio 1.20 Alkaline Phosphatase 75 Anion Gap 20 H Aspartate Amino Transf (AST/SGOT) 44 Basophils # 0.0 Basophils % 0.5 Blood Urea Nitrogen 31 #H Calcium Level 8.2 L Carbon Dioxide Level 20 L Chloride Level 103 # Creatinine 1.00 Direct Bilirubin 0.00 Eosinophils # 0.4 Eosinophils % 5.2 Globulin 3.50 H Glucose Level 83 Hematocrit 33.1 #L Hemoglobin 11.3 #L Indirect Bilirubin 1.0 Lymphocytes # 0.5 L Lymphocytes % 6.9 L Magnesium Level 1.7 Mean Corpuscular Hemoglobin 30.8 Mean Corpuscular Hemoglobin Concent 34.1 Mean Corpuscular Volume 90.2 Mean Platelet Volume 9.7 # Monocytes # 0.8 Monocytes % 10.6 Neutrophils # 6.0 Neutrophils % 76.2 Nucleated Red Blood Cells # 0.0 Nucleated Red Blood Cells % 0.0 Platelet Count 371 # Potassium Level 3.4 L Red Blood Count 3.67 #L Red Cell Distribution Width 16.3 H Sodium Level 140 Total Bilirubin 1.0 Total Protein 7.7 # White Blood Count 7.9 Medications Medications Current Medications Pantoprazole (Protonix Iv) 40 mg DAILY@06 IV Last administered on 08/17/16 05: 28; Admin Dose 40 MG; Start 08/16/16 at 06:00 Morphine Sulfate 4 mg 4 mg Q4H PRN IV PAIN; Start 08/16/16 at 03:00 Sodium Chloride (NS) 1,000 ml @ 100 mls/hr Q10H IV Last administered on 02:33; Admin Dose 100 MLS/HR; Start 08/16/16 at 05:30 Folic Acid (Folic Acid) 1 mg DAILY PO ; Start 08/17/16 at 09:00 KYMBERLY PASTOR MD Aug 17, 2016 07:43
[2016-08-17] MEDS: FOLIC ACID 1 MG TAB PO SCH (08:23)
--- NOTE | 2016-08-17 12:19 | PN ---
Date/Time of Note Date/Time of Note DATE: 08/17/16 TIME: 12:18 Assessment/Plan VTE Prophylaxis VTE Prophylaxis Intervention: other Lines/Catheters IV [facility]ter Type (from [email or web address] Saline Lock Urinary Cath still in place: No Assessment/Plan Chief Complaint/Hosp Course 1. Intractable nausea and vomiting. Continue Zofran p.r.n. for nausea. 2. Possible ileus per CT scan. We will continue the patient n.p.o., continue IV fluids. 3. Acute renal failure with hyponatremia, most likely secondary to dehydration. We will continue IV fluids. Dr. Winter will be following the patient from nephrology standpoint. 4. Metabolic acidosis. Continue morphine for pain and Zofran p.r.n. for nausea. 5. Protonix for peptic ulcer disease prophylaxis. We will ask Dr. Mendez to see patient in gastroenterology consultation. The patient also received Zosyn in the emergency room. 6. Continue to monitor CBC, CMP, and magnesium. Problems: Subjective 24 Hr Interval Summary Free Text/Dictation Patient has no complaints, denies abdominal pain, nausea or vomiting Exam/Review of Systems Vital Signs Vitals Vital Signs Date Time Temp Pulse Resp B/P Pulse Ox O2 Delivery O2 Flow Rate FiO2 08/17/16 07:39 98.3 80 16 90/51 100 08/16/16 20:00 Room Air Intake and Output 08/16/16 08/16/16 08/17/16 15:00 23:00 07:00 Intake Total 1660 ml 1000 ml Output Total 800 ml 800 ml Balance 860 ml 200 ml Exam Constitutional: well developed Head: atraumatic, normocephalic Neck: supple Respiratory: clear to auscultation Cardiovascular: regular rate and rhythm Gastrointestinal: non-tender, soft Extremities: normal pulses Results Result Diagram: 08/17/16 0452 08/17/16 0452 Results 24 hrs Laboratory Tests Test 08/16/16 17:50 08/17/16 04:52 Urine Osmolality 461 Alanine Aminotransferase (ALT/SGPT) 44 Albumin 4.2 Albumin/Globulin Ratio 1.20 Alkaline Phosphatase 75 Anion Gap 20 H Aspartate Amino Transf (AST/SGOT) 44 Basophils # 0.0 Basophils % 0.5 Blood Urea Nitrogen 31 #H Calcium Level 8.2 L Carbon Dioxide Level 20 L Chloride Level 103 # Creatinine 1.00 Direct Bilirubin 0.00 Eosinophils # 0.4 Eosinophils % 5.2 Globulin 3.50 H Glucose Level 83 Hematocrit 33.1 #L Hemoglobin 11.3 #L Indirect Bilirubin 1.0 Lymphocytes # 0.5 L Lymphocytes % 6.9 L Magnesium Level 1.7 Mean Corpuscular Hemoglobin 30.8 Mean Corpuscular Hemoglobin Concent 34.1 Mean Corpuscular Volume 90.2 Mean Platelet Volume 9.7 # Monocytes # 0.8 Monocytes % 10.6 Neutrophils # 6.0 Neutrophils % 76.2 Nucleated Red Blood Cells # 0.0 Nucleated Red Blood Cells % 0.0 Phosphorus Level 2.7 Platelet Count 371 # Potassium Level 3.4 L Red Blood Count 3.67 #L Red Cell Distribution Width 16.3 H Sodium Level 140 Total Bilirubin 1.0 Total Protein 7.7 # White Blood Count 7.9 Medications Medications Current Medications Pantoprazole (Protonix Iv) 40 mg DAILY@06 IV Last administered on 08/17/16 05: 28; Admin Dose 40 MG; Start 08/16/16 at 06:00 Morphine Sulfate 4 mg 4 mg Q4H PRN IV PAIN; Start 08/16/16 at 03:00 Sodium Chloride (NS) 1,000 ml @ 100 mls/hr Q10H IV Last administered on 02:33; Admin Dose 100 MLS/HR; Start 08/16/16 at 05:30 Folic Acid (Folic Acid) 1 mg DAILY PO Last administered on 08/17/16 08:23; Admin Dose 1 MG; Start 08/17/16 at 09:00 GINGER MOSES Aug 17, 2016 12:18
--- NOTE | 2016-08-17 15:35 | PN ---
Date/Time of Note Date/Time of Note DATE: 08/17/16 TIME: 15:30 Assessment/Plan VTE Prophylaxis VTE Prophylaxis Intervention: other Lines/Catheters IV Catheter Type (from Nrs): Saline Lock Assessment/Plan Chief Complaint/Hosp Course Assessment improved abdominal pain and vomiting Probable gastroenteritis Probable ileus since resolved Problems: Assessment/Plan plan continue current management Consider EGD if the patient does does have a recurrence of symptoms Subjective 24 Hr Interval Summary Free Text/Dictation Patient has no significant complaints admitted with nausea and vomiting \Currently no abdominal pain or vomiting Status post anatomy for Hirschsprung's disease and ileostomy Exam/Review of Systems Vital Signs Vitals Vital Signs Date Time Temp Pulse Resp B/P Pulse Ox O2 Delivery O2 Flow Rate FiO2 08/17/16 07:39 98.3 80 16 90/51 100 08/16/16 20:00 Room Air Intake and Output 08/16/16 08/16/16 08/17/16 15:00 23:00 07:00 Intake Total 1660 ml 1000 ml Output Total 800 ml 800 ml Balance 860 ml 200 ml Exam Patient appears alert not in distress Cardia was examined normal heart sounds Respiratory system normal breath sounds Abdomen showed evidence of ileostomy Results Result Diagram: 08/17/16 0452 08/17/16 0452 Results 24 hrs Laboratory Tests Test 08/16/16 17:50 08/17/16 04:52 Urine Osmolality 461 Alanine Aminotransferase (ALT/SGPT) 44 Albumin 4.2 Albumin/Globulin Ratio 1.20 Alkaline Phosphatase 75 Anion Gap 20 H Aspartate Amino Transf (AST/SGOT) 44 Basophils # 0.0 Basophils % 0.5 Blood Urea Nitrogen 31 #H Calcium Level 8.2 L Carbon Dioxide Level 20 L Chloride Level 103 # Creatinine 1.00 Direct Bilirubin 0.00 Eosinophils # 0.4 Eosinophils % 5.2 Erythrocyte Sedimentation Rate 25.0 H Globulin 3.50 H Glucose Level 83 Hematocrit 33.1 #L Hemoglobin 11.3 #L Indirect Bilirubin 1.0 Lymphocytes # 0.5 L Lymphocytes % 6.9 L Magnesium Level 1.7 Mean Corpuscular Hemoglobin 30.8 Mean Corpuscular Hemoglobin Concent 34.1 Mean Corpuscular Volume 90.2 Mean Platelet Volume 9.7 # Monocytes # 0.8 Monocytes % 10.6 Neutrophils # 6.0 Neutrophils % 76.2 Nucleated Red Blood Cells # 0.0 Nucleated Red Blood Cells % 0.0 Phosphorus Level 2.7 Platelet Count 371 # Potassium Level 3.4 L Red Blood Count 3.67 #L Red Cell Distribution Width 16.3 H Sodium Level 140 Total Bilirubin 1.0 Total Protein 7.7 # White Blood Count 7.9 Medications Medications Current Medications Pantoprazole (Protonix Iv) 40 mg DAILY@06 IV Last administered on 08/17/16 05: 28; Admin Dose 40 MG; Start 08/16/16 at 06:00 Morphine Sulfate 4 mg 4 mg Q4H PRN IV PAIN; Start 08/16/16 at 03:00 Sodium Chloride (NS) 1,000 ml @ 100 mls/hr Q10H IV Last administered on 12:29; Admin Dose 100 MLS/HR; Start 08/16/16 at 05:30 Folic Acid (Folic Acid) 1 mg DAILY PO Last administered on 08/17/16 08:23; Admin Dose 1 MG; Start 08/17/16 at 09:00 SELINA TY MD Aug 17, 2016 15:35
[2016-08-17 19:59] VITALS: BP 93/54; RESP 16
[2016-08-18] MEDS: PANTOPRAZOLE 40 MG INJ IV SCH (05:26)
[2016-08-18 06:03] LABS: ALBUMIN 3.5 g/dl (3.3-4.9)
[2016-08-18 06:06] LABS: ALBUMIN/GLOBULIN RATIO 1.12; BILIRUBIN,INDIRECT 0.8 mg/dl (0-1.1); BILIRUBIN,TOTAL 0.8 mg/dl (0.2-1.3); CREATININE 0.82 mg/dl (0.44-1.00); TOTAL PROTEIN 6.6 g/dl (6.1-8.1)
[2016-08-18 06:07] LABS: CALCIUM 8.1 mg/dl (8.4-10.2)
[2016-08-18 07:26] LABS: POTASSIUM 2.5 mmol/L (3.5-5.1)
[2016-08-18] MEDS ORDERED: POTASSIUM CHLORIDE (SR) 20 MEQ TAB PO STA (07:52)
[2016-08-18 08:04] VITALS: BP 91/50; RESP 18
[2016-08-18] MEDS: SOD CHLORIDE 0.9% 1,000 ML IV SCH (08:31)
[2016-08-18] MEDS: FOLIC ACID 1 MG TAB PO SCH (08:32)
--- NOTE | 2016-08-18 09:29 | CONS ---
Date/Time of Note Date/Time of Note DATE: 08/18/16 TIME: 09:28 Assessment/Plan Assessment/Plan Additional Assessment/Plan 1. History of Hirschsprung's disease status post ileostomy. 2. Electrolyte imbalance 3. Azotemia, prerenal, improving. 4. Cachexia. 5, Metabolic acidosis- Resolved Change IVFs to NS with KCL KCL PO 40 BID x 2 S/p KCL PO, Repeat BMP Cont to monitor UO, Electrolytes and renal function Consultation Date/Type/Reason Admit Date/Time Aug 15, 2016 at 20:21 Type of Consultation: Nephrology Referring Provider: CARLOS RODRIGUEZ MD 24 HR Interval Summary Free Text/Dictation No new complaints Exam/Review of Systems Vital Signs Vitals Vital Signs Date Time Temp Pulse Resp B/P Pulse Ox O2 Delivery O2 Flow Rate FiO2 08/18/16 08:04 98.0 73 18 91/50 100 08/16/16 20:00 Room Air Intake and Output 08/17/16 08/17/16 08/18/16 15:00 23:00 07:00 Intake Total 1330 ml 2700 ml Output Total 1400 ml 1400 ml Balance -70 ml 1300 ml Exam Constitutional: frail, No distress Head: atraumatic, normocephalic Eyes: EOMI Neck: No jvd Respiratory: clear to auscultation Cardiovascular: regular rate and rhythm Gastrointestinal: soft, No rebound or guarding 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: No confused Skin: nl turgor, No diaphoresis Results Result Diagram: 08/17/16 0452 08/18/16 0435 Results 24 hrs Laboratory Tests Test 08/18/16 04:35 Alanine Aminotransferase (ALT/SGPT) 38 Albumin 3.5 Albumin/Globulin Ratio 1.12 Alkaline Phosphatase 65 Anion Gap 14 Aspartate Amino Transf (AST/SGOT) 35 Blood Urea Nitrogen 11 # Calcium Level 8.1 L Carbon Dioxide Level 27 Chloride Level 102 Creatinine 0.82 Direct Bilirubin 0.00 Globulin 3.10 Glucose Level 76 Indirect Bilirubin 0.8 Potassium Level 2.5 *L Sodium Level 140 Total Bilirubin 0.8 Total Protein 6.6 # Medications Medications Current Medications Pantoprazole (Protonix Iv) 40 mg DAILY@06 IV Last administered on 08/18/16t 05: 26; Admin Dose 40 MG; Start 08/16/16 at 06:00 Morphine Sulfate 4 mg 4 mg Q4H PRN IV PAIN; Start 08/16/16 at 03:00 Sodium Chloride (NS) 1,000 ml @ 100 mls/hr Q10H IV Last administered on 08:31; Admin Dose 100 MLS/HR; Start 08/16/16 at 05:30 Folic Acid (Folic Acid) 1 mg DAILY PO Last administered on 08/18/16 08:32; Admin Dose 1 MG; Start 08/17/16 at 09:00 KYMBERLY PASTOR MD Aug 18, 2016 09:28
[2016-08-18] MEDS: NS + KCL 20 MEQ 1,000 ML IV SCH ×2 (10:27→22:50)
--- NOTE | 2016-08-18 11:41 | PN ---
Date/Time of Note Date/Time of Note DATE: 08/18/16 TIME: 11:40 Assessment/Plan VTE Prophylaxis VTE Prophylaxis Intervention: other Lines/Catheters IV Catheter Type (from Nrs): Saline Lock Assessment/Plan Chief Complaint/Hosp Course 1. Intractable nausea and vomiting. Continue Zofran p.r.n. for nausea. 2. Possible ileus per CT scan. We will continue the patient n.p.o., continue IV fluids. 3. Acute renal failure with hyponatremia, most likely secondary to dehydration. We will continue IV fluids. Dr. Winter will be following the patient from nephrology standpoint. 4. Metabolic acidosis. Continue morphine for pain and Zofran p.r.n. for nausea. 5. Protonix for peptic ulcer disease prophylaxis. We will ask Dr. Mendez to see patient in gastroenterology consultation. The patient also received Zosyn in the emergency room. 6. Continue to monitor CBC, CMP, and magnesium. Problems: Subjective 24 Hr Interval Summary Free Text/Dictation Patient has no complaints Exam/Review of Systems Vital Signs Vitals Vital Signs Date Time Temp Pulse Resp B/P Pulse Ox O2 Delivery O2 Flow Rate FiO2 08/18/16 08:04 98.0 73 18 91/50 100 08/16/16 20:00 Room Air Intake and Output 08/17/16 08/17/16 08/18/16 15:00 23:00 07:00 Intake Total 1330 ml 2700 ml Output Total 1400 ml 1400 ml Balance -70 ml 1300 ml Exam Constitutional: frail, well developed Head: atraumatic, normocephalic Neck: supple Respiratory: clear to auscultation Cardiovascular: regular rate and rhythm Gastrointestinal: non-tender, soft Extremities: normal pulses Results Result Diagram: 08/17/16 0452 08/18/16 0435 Results 24 hrs Laboratory Tests Test 08/18/16 04:35 Alanine Aminotransferase (ALT/SGPT) 38 Albumin 3.5 Albumin/Globulin Ratio 1.12 Alkaline Phosphatase 65 Anion Gap 14 Aspartate Amino Transf (AST/SGOT) 35 Blood Urea Nitrogen 11 # Calcium Level 8.1 L Carbon Dioxide Level 27 Chloride Level 102 Creatinine 0.82 Direct Bilirubin 0.00 Globulin 3.10 Glucose Level 76 Indirect Bilirubin 0.8 Potassium Level 2.5 *L Sodium Level 140 Total Bilirubin 0.8 Total Protein 6.6 # Medications Medications Current Medications Pantoprazole (Protonix Iv) 40 mg DAILY@06 IV Last administered on 08/18/16 05: 26; Admin Dose 40 MG; Start 08/16/16 at 06:00 Morphine Sulfate (morphine) 4 mg Q4H PRN IV PAIN; Start 08/16/16 at 03:00 Folic Acid 1 mg 1 mg DAILY PO Last administered on 08/18/16 08:32; Admin Dose 1 MG; Start 08/17/16 at 09:00 Potassium Chloride/Sodium Chloride (NS-KCl 20 Meq) 1,000 ml @ 75 mls/hr [id number] IV Last administered on 08/18/16 10:27; Admin Dose 75 MLS/HR; Start 08/18/16 at 09:30 Potassium Chloride (Klor-Con 20) 40 meq BID PO ; Start 08/18/16 at 21:00; Stop at 09:01 GINGER MOSES Aug 18, 2016 11:41
[2016-08-18 19:20] VITALS: BP 103/55; RESP 16
[2016-08-18] MEDS: POTASSIUM CHLORIDE (SR) 20 MEQ TAB PO SCH (20:23)
[2016-08-19] MEDS: NS + KCL 20 MEQ 1,000 ML IV SCH ×2 (03:14→16:29)
[2016-08-19] MEDS: PANTOPRAZOLE 40 MG INJ IV SCH (05:54)
[2016-08-19 07:46] LABS: EOSINOPHILS # 0.5 10^3/ul (0.0-0.5); EOSINOPHILS % 3.1 % (0.0-7.0); HEMATOCRIT 34.3 % (37.0-47.0); HEMOGLOBIN 11.4 g/dl (12.0-16.0); LYMPHOCYTES # 0.6 10^3/ul (0.8-2.9); LYMPHOCYTES % 3.8 % (15.0-51.0); MEAN CORPUSCULAR HEMOGLOBIN 31.4 pg (29.0-33.0); MEAN CORPUSCULAR HGB CONC 33.2 g/dl (32.0-37.0); MEAN CORPUSCULAR VOLUME 94.5 fl (82.0-101.0); MEAN PLATELET VOLUME 7.8 fl (7.4-10.4); MONOCYTE # 0.7 10^3/ul (0.3-0.9); MONOCYTES % 4.4 % (0.0-11.0); NEUTROPHIL # 13.7 10^3/ul (1.6-7.5); NEUTROPHILS % 88.7 % (39.0-77.0); PLATELET COUNT 255 10^3/UL (140-440); RED BLOOD COUNT 3.63 10^6/ul (4.20-5.40); RED CELL DISTRIBUTION WIDTH 17.3 % (11.5-14.5); UNCORRECTED WBC 15.4 10^3/ul (4.8-10.8); WHITE BLOOD COUNT 15.4 10^3/ul (4.8-10.8)
[2016-08-19 07:49] LABS: CONDITION 1; LH ANALYZER COMMENTS 1
[2016-08-19 08:13] LABS: ALBUMIN 3.6 g/dl (3.3-4.9)
[2016-08-19 08:14] LABS: POTASSIUM 4.5 mmol/L (3.5-5.1)
[2016-08-19 08:16] LABS: BILIRUBIN,INDIRECT 0.9 mg/dl (0-1.1); BILIRUBIN,TOTAL 0.9 mg/dl (0.2-1.3); CREATININE 0.82 mg/dl (0.44-1.00)
[2016-08-19 08:17] LABS: ALBUMIN/GLOBULIN RATIO 1.16; CALCIUM 8.1 mg/dl (8.4-10.2); TOTAL PROTEIN 6.7 g/dl (6.1-8.1)
[2016-08-19 08:23] VITALS: BP 90/59; RESP 18
[2016-08-19] MEDS: FOLIC ACID 1 MG TAB PO SCH (08:33)
[2016-08-19] MEDS: POTASSIUM CHLORIDE (SR) 20 MEQ TAB PO SCH (08:34)
--- NOTE | 2016-08-19 10:26 | CONS ---
DATE OF ADMISSION: 08/15/2016 DATE OF CONSULTATION: TYPE OF CONSULTATION: Gastroenterology. Dear Dr. Paez: Thank you for asking me to see Ms. Martin in GI consultation. HISTORY OF PRESENT ILLNESS: As you know, the patient is a 41-year-old [place] female who is admitt ed to the hospital with history of vomiting for the past 24 to 48 hours, vomiting greenish yellowish bile liquids. No history of vomiting blood. She has history of ileostomy done after she had surge ry for Hirschsprung disease. She had this as a baby and also she had a second surgery as a teenager because she had some complications. No history of vomiting blood. She says whenever she e ats large amounts at meals, she does have some stool coming out of the rectum and not sure if she s till has the rectum open. REVIEW OF SYSTEMS: History of some kind of nonspecific cardiac disorder. MEDICATIONS: Prior to this admission includes: 1. Vistaril. 2. Nystatin. 3. ProAir. 4. Loratadine. 5. Folic acid. 6. Fluticasone propionate nasal. 7. Famotidine. 8. Vitamin B12. 9. Potassium chloride. SOCIAL HISTORY: Patient does not smoke or drink. FAMILY HISTORY: Positive for diabetes. PHYSICAL EXAMINATION: GENERAL: The patient is a 41-year-old [place] female who at this time is alert. She is afebrile, thin built, cachectic. She does have psoriasis on the skin. CARDIOVASCULAR: Normal heart sounds. RESPIRATORY: Normal breath sounds. ABDOMEN: Shows soft abdomen. Ileostomy is noted in the right lower quadrant. Abdomen is soft and minimally distended. LABORATORY WORKUP: WBC count 12,800, hemoglobin 15.5, hematocrit 45.4. The sodium 124, potassium 4 .7, BUN is 81, creatinine 1.9. The ALT is 62, albumin 5.1, alkaline phosphatase 135, AST is 55. Bilirubin is 0.5. White blood count as mentioned earlier on CAT scan of the abdomen shows evidence of ileostomy in the right lower quadrant. CLINICAL IMPRESSION: The patient presenting with history of vomiting, etiology is not known. Rule out peptic ulcer disease. There is some amount of ileus noted on the CAT scan. No evidence of kurt l obstruction because there is no transition point in the CAT scan. Rule out esophagitis, peptic ulcer disease. PLAN: Recommend clear liquids if she continues to throw up. At that time, I would recommend upper endoscopy. Once again, doctor, thank you for this consultation. Dictated By: SELINA ALVARADO/NTS Conf#: [id number] DID#: [id number] CC: CARLOS PAEZ MD;*EndCC*
--- NOTE | 2016-08-19 14:40 | PN ---
Date/Time of Note Date/Time of Note DATE: 08/19/16 TIME: 14:34 Assessment/Plan VTE Prophylaxis VTE Prophylaxis Intervention: SCD's Lines/Catheters IV C[facility]ter Type (from [facility] Saline [facility] Assessment/Plan Chief Complaint/Hosp Course ASSESSMENT AND PLAN: - Intractable nausea and vomiting. Continue Zofran p.r.n. for nausea. Dr. Mendez to see patient in gastroenterology consultation. - Possible ileus per CT scan. - Acute renal failure with hyponatremia, most likely secondary to dehydration. Continue IV fluids. Dr. Winter will be following the patient from nephrology standpoint. - E-coli UTI, start Levaquin. - Metabolic acidosis, resolved. - History of Hirschsprung's disease status post ileostomy. -Electrolyte imbalances, continue to monitor electrolytes. Continue Protonix for peptic ulcer disease prophylaxis. Further recommendations based on clinical course. Plan of care discussed with Dr. Paez. Problems: Subjective 24 Hr Interval Summary Free Text/Dictation Patient tolerates clear liquid well, denies nausea vomiting. Exam/Review of Systems Vital Signs Vitals Vital Signs Date Time Temp Pulse Resp B/P Pulse Ox O2 Delivery O2 Flow Rate FiO2 08/19/16 08:23 98.2 95 18 90/59 100 08/16/16 20:00 Room Air Intake and Output 08/18/16 08/18/16 08/19/16 15:00 23:00 07:00 Intake Total 1075 ml 3455 ml Output Total 1250 ml 2050 ml Balance -175 ml 1405 ml Exam GENERAL: Well-developed female currently is awake, alert. HEENT: Head is atraumatic, normocephalic. NECK: Supple, no cervical lymphadenopathy, no thyromegaly. CHEST: Lungs clear bilaterally. There are no rhonchi, wheezes, or rales noted. CARDIOVASCULAR: Normal S1, S2. No murmurs, gallops, clicks, or rubs noted. ABDOMEN: Flat, soft, nondistended, nontender. The patient has a right lower quadrant ileostomy with pink stoma. EXTREMITIES: No edema, clubbing, cyanosis. Pulses equal bilaterally 2+. SKIN: There is no rash, petechiae noted. NEUROLOGIC: The patient is awake, alert, and oriented x4. Results Result Diagram: 08/19/16 0700 08/19/16 0700 Results 24 hrs Laboratory Tests Test 08/19/16 07:00 Alanine Aminotransferase (ALT/SGPT) 11 L Albumin 3.6 Albumin/Globulin Ratio 1.16 Alkaline Phosphatase 109 # Anion Gap 20 H Aspartate Amino Transf (AST/SGOT) 69 H Basophils # 0.0 Basophils % 0.0 Blood Morphology Comment Blood Urea Nitrogen 8 Calcium Level 8.1 L Carbon Dioxide Level 20 L Chloride Level 105 Creatinine 0.82 Direct Bilirubin 0.00 Eosinophils # 0.5 Eosinophils % 3.1 Globulin 3.10 Glucose Level 67 L Hematocrit 34.3 L Hemoglobin 11.4 L Indirect Bilirubin 0.9 Lymphocytes # 0.6 L Lymphocytes % 3.8 L Mean Corpuscular Hemoglobin 31.4 Mean Corpuscular Hemoglobin Concent 33.2 Mean Corpuscular Volume 94.5 Mean Platelet Volume 7.8 Monocytes # 0.7 Monocytes % 4.4 Neutrophils # 13.7 H Neutrophils % 88.7 H Nucleated Red Blood Cells # 0.0 Nucleated Red Blood Cells % 0.0 Platelet Count 255 # Potassium Level 4.5 # Red Blood Count 3.63 L Red Cell Distribution Width 17.3 H Sodium Level 140 Total Bilirubin 0.9 Total Protein 6.7 White Blood Count 15.4 #H Medications Medications Current Medications Pantoprazole (Protonix Iv) 40 mg DAILY@06 IV Last administered on 08/19/16 05: 54; Admin Dose 40 MG; Start 08/16/16 at 06:00 Morphine Sulfate (morphine) 4 mg Q4H PRN IV PAIN; Start 08/16/16 at 03:00 Folic Acid 1 mg 1 mg DAILY PO Last administered on 08/19/16 08:33; Admin Dose 1 MG; Start 08/17/16 at 09:00 Potassium Chloride/Sodium Chloride (NS-KCl 20 Meq) 1,000 ml @ 75 mls/hr [id number] IV Last administered on 08/19/16 03:14; Admin Dose 75 MLS/HR; Start 08/18/16 at 09:30 ROMI ESPINO Aug 19, 2016 14:40
[2016-08-19 15:20] LABS: ANA SCREEN NEGATIVE (NEGATIVE)
[2016-08-19] MEDS: LEVOFLOXACIN 500MG/D5W (PMX) 100 ML IVPB SCH (16:30)
[2016-08-19 20:29] VITALS: BP 91/50; RESP 18
--- NOTE | 2016-08-19 23:03 | CONS ---
Date/Time of Note Date/Time of Note DATE: 08/19/16 TIME: 23:03 Assessment/Plan Assessment/Plan Additional Assessment/Plan Electrolytes, renal fn is normal No further need for renal f/u Consultation Date/Type/Reason Admit Date/Time Aug 15, 2016 at 20:21 Initial Consult Date Type of Consultation: Nephrology Referring Provider: CARLOS RODRIGUEZ MD Exam/Review of Systems Vital Signs Vitals Vital Signs Date Time Temp Pulse Resp B/P Pulse Ox O2 Delivery O2 Flow Rate FiO2 08/19/16 20:29 98.5 99 18 91/50 18 08/16/16 20:00 Room Air Intake and Output 08/18/16 08/18/16 08/19/16 15:00 23:00 07:00 Intake Total 1075 ml 3455 ml Output Total 1250 ml 2050 ml Balance -175 ml 1405 ml Exam Constitutional: alert, oriented Respiratory: clear to auscultation Extremities: normal pulses Results Result Diagram: 08/19/16 0700 08/19/16 0700 Results 24 hrs Laboratory Tests Test 08/19/16 07:00 Alanine Aminotransferase (ALT/SGPT) 11 L Albumin 3.6 Albumin/Globulin Ratio 1.16 Alkaline Phosphatase 109 # Anion Gap 20 H Aspartate Amino Transf (AST/SGOT) 69 H Basophils # 0.0 Basophils % 0.0 Blood Morphology Comment Blood Urea Nitrogen 8 Calcium Level 8.1 L Carbon Dioxide Level 20 L Chloride Level 105 Creatinine 0.82 Direct Bilirubin 0.00 Eosinophils # 0.5 Eosinophils % 3.1 Globulin 3.10 Glucose Level 67 L Hematocrit 34.3 L Hemoglobin 11.4 L Indirect Bilirubin 0.9 Lymphocytes # 0.6 L Lymphocytes % 3.8 L Mean Corpuscular Hemoglobin 31.4 Mean Corpuscular Hemoglobin Concent 33.2 Mean Corpuscular Volume 94.5 Mean Platelet Volume 7.8 Monocytes # 0.7 Monocytes % 4.4 Neutrophils # 13.7 H Neutrophils % 88.7 H Nucleated Red Blood Cells # 0.0 Nucleated Red Blood Cells % 0.0 Platelet Count 255 # Potassium Level 4.5 # Red Blood Count 3.63 L Red Cell Distribution Width 17.3 H Sodium Level 140 Total Bilirubin 0.9 Total Protein 6.7 White Blood Count 15.4 #H Medications Medications Current Medications Morphine Sulfate (morphine) 4 mg Q4H PRN IV PAIN; Start 2/3/17 at 03:00 Folic Acid 1 mg 1 mg DAILY PO Last administered on 08/19/16 08:33; Admin Dose 1 MG; Start 08/17/16 at 09:00 Potassium Chloride/Sodium Chloride 1,000 ml @ 75 mls/hr [id number] IV Last administered on 08/19/16 16:29; Admin Dose 75 MLS/HR; Start 08/18/16 at 09:30 Levofloxacin/ Dextrose (Levaquin 500mg/ D5W 100 ml (Pmx)) 100 ml @ 100 mls/hr Q24H IVPB Last administered on 08/19/16 16:30; Admin Dose 100 MLS/HR; Start 08/19/16 at 15:00 Pantoprazole (Protonix Tab) 40 mg DAILY@06 PO ; Start 08/20/16 at 06:00 WANDA ELLISON MD Aug 19, 2016 23:03
[2016-08-20 05:44] LABS: ALBUMIN 3.2 g/dl (3.3-4.9)
[2016-08-20 05:45] LABS: POTASSIUM 4.2 mmol/L (3.5-5.1)
[2016-08-20 05:47] LABS: ALBUMIN/GLOBULIN RATIO 1.1; BILIRUBIN,INDIRECT 0.2 mg/dl (0-1.1); BILIRUBIN,TOTAL 0.2 mg/dl (0.2-1.3); CREATININE 0.97 mg/dl (0.44-1.00); TOTAL PROTEIN 6.1 g/dl (6.1-8.1)
[2016-08-20] MEDS: PANTOPRAZOLE (EC) 40 MG TAB PO SCH (05:47)
[2016-08-20 05:48] LABS: CALCIUM 7.8 mg/dl (8.4-10.2)
[2016-08-20] MEDS: FOLIC ACID 1 MG TAB PO SCH (08:32)
[2016-08-20 08:54] VITALS: BP 96/53; RESP 18
--- NOTE | 2016-08-20 11:51 | CONS ---
Date/Time of Note Date/Time of Note DATE: 08/20/16 TIME: 11:50 Assessment/Plan Assessment/Plan Additional Assessment/Plan 1. Hirschsprung's disease status post ileostomy.Chronic 2. Electrolyte imbalance- Acute 3. Azotemia, prerenal, Resolved 4. Cachexia. 5, Metabolic acidosis Renal function stable and MELBA resolved Hypokalemia resolved. Cont to supplement Electrolytes as needed Consultation Date/Type/Reason Admit Date/Time Aug 15, 2016 at 20:21 Type of Consultation: Nephrology Referring Provider: CARLOS RODRIGUEZ MD Exam/Review of Systems Vital Signs Vitals Vital Signs Date Time Temp Pulse Resp B/P Pulse Ox O2 Delivery O2 Flow Rate FiO2 08/20/16 08:54 98.2 96 18 96/53 100 08/16/16 20:00 Room Air Intake and Output 08/19/16 08/19/16 08/20/16 15:00 23:00 07:00 Intake Total 2160 ml 1350 ml Output Total 1200 ml 1550 ml Balance 960 ml -200 ml Results Result Diagram: 08/19/16 0700 08/20/16 0425 Results 24 hrs Laboratory Tests Test 08/20/16 04:25 Alanine Aminotransferase (ALT/SGPT) 25 Albumin 3.2 L Albumin/Globulin Ratio 1.10 Alkaline Phosphatase 58 Anion Gap 17 H Aspartate Amino Transf (AST/SGOT) 19 Blood Urea Nitrogen 17 # Calcium Level 7.8 L Carbon Dioxide Level 25 Chloride Level 104 Creatinine 0.97 Direct Bilirubin 0.00 Globulin 2.90 Glucose Level 111 # Indirect Bilirubin 0.2 Potassium Level 4.2 Sodium Level 142 Total Bilirubin 0.2 Total Protein 6.1 Medications Medications Current Medications Morphine Sulfate (morphine) 4 mg Q4H PRN IV PAIN; Start 08/16/16 at 03:00 Folic Acid 1 mg 1 mg DAILY PO Last administered on 08/20/16 08:32; Admin Dose 1 MG; Start 08/17/16 at 09:00 Potassium Chloride/Sodium Chloride 1,000 ml @ 75 mls/hr [id number] IV Last administered on 08/19/16 16:29; Admin Dose 75 MLS/HR; Start 08/18/16 at 09:30 Levofloxacin/ Dextrose (Levaquin 500mg/ D5W 100 ml (Pmx)) 100 ml @ 100 mls/hr Q24H IVPB Last administered on 08/19/16 16:30; Admin Dose 100 MLS/HR; Start 08/19/16 at 15:00 Pantoprazole (Protonix Tab) 40 mg DAILY@06 PO Last administered on 08/20/16 05: 47; Admin Dose 40 MG; Start 08/20/16 at 06:00 KYMBERLY PASTOR MD Aug 20, 2016 11:51
--- NOTE | 2016-08-20 14:23 | PN ---
Date/Time of Note Date/Time of Note DATE: 08/20/16 TIME: 14:21 Assessment/Plan VTE Prophylaxis VTE Prophylaxis Intervention: SCD's Lines/Catheters IV Catheter Type (from Nrs): Peripheral IV Assessment/Plan Chief Complaint/Hosp Course ASSESSMENT AND PLAN: - Intractable nausea and vomiting. Continue Zofran p.r.n. for nausea. Dr. Mendez to see patient in gastroenterology consultation. - Possible ileus per CT scan, resolving. - Acute renal failure with hyponatremia, most likely secondary to dehydration. Continue IV fluids. Dr. Winter will be following the patient from nephrology standpoint. - E-coli UTI, start Levaquin. - Metabolic acidosis, resolved. - History of Hirschsprung's disease status post ileostomy. - Electrolyte imbalances, continue to monitor electrolytes. - Systemic inflammatory response syndrome with leukocytosis secondary to urinary tract infection. Continue antibiotics. Check CBC and repeat urine culture. Continue Protonix for peptic ulcer disease prophylaxis. Further recommendations based on clinical course. Plan of care discussed with Dr. Paez. Problems: Subjective 24 Hr Interval Summary Free Text/Dictation Patient's complains of lower abdominal pain and dysuria, denies nausea vomiting , tolerates diet well, continues to have large output from ileostomy. Exam/Review of Systems Vital Signs Vitals Vital Signs Date Time Temp Pulse Resp B/P Pulse Ox O2 Delivery O2 Flow Rate FiO2 08/20/16 08:54 98.2 96 18 96/53 100 08/16/16 20:00 Room Air Intake and Output 08/19/16 08/19/16 08/20/16 15:00 23:00 07:00 Intake Total 2160 ml 1350 ml Output Total 1200 ml 1550 ml Balance 960 ml -200 ml Exam GENERAL: Well-developed female currently is awake, alert. HEENT: Head is atraumatic, normocephalic. NECK: Supple, no cervical lymphadenopathy, no thyromegaly. CHEST: Lungs clear bilaterally. There are no rhonchi, wheezes, or rales noted. CARDIOVASCULAR: Normal S1, S2. No murmurs, gallops, clicks, or rubs noted. ABDOMEN: Flat, soft, nondistended, nontender. The patient has a right lower quadrant ileostomy with pink stoma. EXTREMITIES: No edema, clubbing, cyanosis. Pulses equal bilaterally 2+. SKIN: There is no rash, petechiae noted. NEUROLOGIC: The patient is awake, alert, and oriented x4. Results Result Diagram: 08/19/16 0700 08/20/16 0425 Results 24 hrs Laboratory Tests Test 08/20/16 04:25 Alanine Aminotransferase (ALT/SGPT) 25 Albumin 3.2 L Albumin/Globulin Ratio 1.10 Alkaline Phosphatase 58 Anion Gap 17 H Aspartate Amino Transf (AST/SGOT) 19 Blood Urea Nitrogen 17 # Calcium Level 7.8 L Carbon Dioxide Level 25 Chloride Level 104 Creatinine 0.97 Direct Bilirubin 0.00 Globulin 2.90 Glucose Level 111 # Indirect Bilirubin 0.2 Potassium Level 4.2 Sodium Level 142 Total Bilirubin 0.2 Total Protein 6.1 Medications Medications Current Medications Morphine Sulfate (morphine) 4 mg Q4H PRN IV PAIN; Start 08/16/16 at 03:00 Folic Acid 1 mg 1 mg DAILY PO Last administered on 08/20/16 08:32; Admin Dose 1 MG; Start 08/17/16 at 09:00 Potassium Chloride/Sodium Chloride 1,000 ml @ 75 mls/hr [id number] IV Last administered on 08/19/16 16:29; Admin Dose 75 MLS/HR; Start 08/18/16 at 09:30 Levofloxacin/ Dextrose (Levaquin 500mg/ D5W 100 ml (Pmx)) 100 ml @ 100 mls/hr Q24H IVPB Last administered on 08/19/16 16:30; Admin Dose 100 MLS/HR; Start 08/19/16 at 15:00 Pantoprazole (Protonix Tab) 40 mg DAILY@06 PO Last administered on 08/20/16 05: 47; Admin Dose 40 MG; Start 08/20/16 at 06:00 ROMI ESPINO Aug 20, 2016 14:23
[2016-08-20] MEDS: LEVOFLOXACIN 500MG/D5W (PMX) 100 ML IVPB SCH (15:01)
[2016-08-20] MEDS: NS + KCL 20 MEQ 1,000 ML IV SCH (15:02)
[2016-08-21 05:35] LABS: ALBUMIN 3.6 g/dl (3.3-4.9)
[2016-08-21 05:36] LABS: POTASSIUM 4.3 mmol/L (3.5-5.1)
[2016-08-21 05:38] LABS: ALBUMIN/GLOBULIN RATIO 1.12; CREATININE 0.92 mg/dl (0.44-1.00); TOTAL PROTEIN 6.8 g/dl (6.1-8.1)
[2016-08-21 05:41] LABS: BASOPHIL # 0.1 10^3/ul (0.0-0.1); BASOPHILS % 1.1 % (0.0-2.0); EOSINOPHILS # 0.6 10^3/ul (0.0-0.5); EOSINOPHILS % 6.6 % (0.0-7.0); HEMATOCRIT 33.3 % (37.0-47.0); HEMOGLOBIN 11.2 g/dl (12.0-16.0); LYMPHOCYTES # 0.6 10^3/ul (0.8-2.9); LYMPHOCYTES % 6.4 % (15.0-51.0); MEAN CORPUSCULAR HEMOGLOBIN 31.2 pg (29.0-33.0); MEAN CORPUSCULAR HGB CONC 33.5 g/dl (32.0-37.0); MONOCYTE # 0.3 10^3/ul (0.3-0.9); MONOCYTES % 2.8 % (0.0-11.0); NEUTROPHIL # 8.2 10^3/ul (1.6-7.5); NEUTROPHILS % 83.1 % (39.0-77.0); PLATELET COUNT 152 10^3/UL (140-440); RED BLOOD COUNT 3.58 10^6/ul (4.20-5.40); RED CELL DISTRIBUTION WIDTH 16.4 % (11.5-14.5); UNCORRECTED WBC 9.9 10^3/ul (4.8-10.8); WHITE BLOOD COUNT 9.9 10^3/ul (4.8-10.8)
[2016-08-21 05:43] LABS: CONDITION 1; LH ANALYZER COMMENTS 1
[2016-08-21] MEDS: PANTOPRAZOLE (EC) 40 MG TAB PO SCH (05:44)
[2016-08-21] MEDS: NS + KCL 20 MEQ 1,000 ML IV SCH (05:45)
[2016-08-21 07:00] VITALS: BP 92/55; RESP 20
[2016-08-21] MEDS: FOLIC ACID 1 MG TAB PO SCH (11:40)
[2016-08-21] MEDS: LEVOFLOXACIN 500MG/D5W (PMX) 100 ML IVPB SCH (13:48)
[2016-08-21] MEDS ORDERED: SLOMAG PO (15:15)
[2016-08-21] MEDS ORDERED: LEVO500T72 PO (15:15)
[2016-08-21] MEDS ORDERED: POTA20TA96 PO (15:15)
--- NOTE | 2016-08-25 21:32 | DS ---
DATE OF ADMISSION: 08/15/2016 DATE OF DISCHARGE: 08/21/2016 FINAL DIAGNOSES: 1. Intractable nausea and vomiting, resolved. 2. Possible ileus per CT scan, resolved. 3. Acute renal failure with hyponatremia, most likely secondary to dehydration, resolved. 4. Escherichia coli urinary tract infection. 5. Metabolic acidosis on admission, resolved. 6. History of Hirschsprung disease, status post ileostomy. 7. Electrolyte imbalances. 8. Systemic inflammatory response syndrome with leukocytosis secondary to urinary tract infection o n admission. BRIEF HISTORY: The patient is a 41-year-old female known to me from previous admission. The patien t with history of Hirschsprung disease with multiple abdominal surgeries in the past. The patient a lso had an ileostomy and patient with hyperactivity attention deficit disorder. The patient present ed to the emergency room with complaint of nonbloody, bilious emesis associated with abdominal pain. The patient underwent a CT scan of the abdomen and pelvis with notion of dilated small loops measu ring approximately 3.9 cm containing air and fluid in the left lower abdomen with known dilated smal l loops which could represent a small ileus. The patient was given Zofran for nausea and was starte d on IV fluids. The patient's white blood cell count was elevated at 12,800 on admission, and creat inine was 1.9. The patient was admitted, started on IV fluids and was admitted for further evaluati on and management. HOSPITAL COURSE: The patient was evaluated by Dr. Winter and Dr. Phan in nephrology consultation. The patient continued on IV fluids. Electrolytes were closely monitored. The patient's urine cultu re was positive for E. coli. The patient was started on Levaquin. The patient required close monit oring of electrolytes and replacement. Gradually patient's condition improved. The patient was als o evaluated by Dr. Mendez in gastroenterology consultation. The patient was started on clear liquid diet, was able to tolerate it well, and diet is progressed to regular diet. The patient's conditio n improved, and the patient was discharged home. CONDITION ON DISCHARGE: Hemodynamically stable. ACTIVITY: As patient tolerates. DIET: Regular diet. MEDICATION ON DISCHARGE: The patient is given prescriptions for: 1. Levaquin 500 mg p.o. daily for 5 more days to complete the treatment for urinary tract infection . 2. Mag 64 p.o. b.i.d. for 14 days. 3. Potassium chloride 20 mEq p.o. daily for 30 days. The patient is continued on: 1. ProAir. 2. Vitamin B12. 3. Pepcid. 4. Folic acid. 5. Vistaril. FOLLOWUP: The patient is instructed to follow up with primary care physician in 1 to 2 weeks and BM P and magnesium in 1 week. Interdisciplinary care established for this patient. Plan of care was discussed with Dr. Rodriguez. Dictated By: ROMI ESPINO PRINT DESIGNER for CARLOS RODRIGUEZ MD SR/NTS Conf#: [id number] DID#: [id number]
== END 2016-08-21 20:00 | disposition home or self-care (01) | DRG 394 ==
LOC: E/R 12:23 → MS1 20:21
PROVIDERS: ADMIT Internal Medicine; ATTEND Internal Medicine
DX: Q43.1 Hirschsprung's disease (principal); N17.9 Acute kidney failure, unspecified; R64 Cachexia; E87.2 Acidosis; E87.1 Hypo-osmolality and hyponatremia; N39.0 Urinary tract infection, site not specified; Z93.2 Ileostomy status; E86.0 Dehydration; B96.29 Other Escherichia coli [E. coli] as the cause of diseases classified elsewhere
CPT/HCPCS: 36415; 71010; 74176; 80048; 80053; 81001; 81003; 82436; 83605; 83690; 83735; 83935; 84100; 84133; 84300; 84703; 85025; 85610; 85651; 85730; 86038; 87040; 87086; 96365; 96375; 96376; C9113; J1956; J2270; J2405; J2543; J3480; J7030

== ENCOUNTER 2016-09-05 19:52 | Inpatient (IN) | payer OTHER ==
[~2016-09-05] VITALS: Ht 147.3 cm; Wt 46.1 kg
[~2016-09-05 19:52] MED LIST changes: -FLUT16SP17 NASAL; +LEVO500T72 PO; -LORA10TA3 PO; -NYST15OI TOP; -POTA20PA23 PO; +POTA20TA96 PO
--- NOTE | 2016-09-05 21:22 | ERA ---
ER Documentation Chief Complaint Date/Time DATE: 09/05/16 TIME: 21:21 Chief Complaint MATAMOROS HPI The patient is a 41-year-old female, presenting to the ER because of occipital headache and dizziness for the last 2 days. She had history of chronic headache. She has been hospitalized recently for dehydration and cystitis. She denies fever, chills, neck pain, chest pain, dyspnea, abdominal pain, vomiting. She complains of dysuria and polyuria. She does not smoke, drink Past medical history: History of Hirschsprung disease, chronic headache Past surgical history: History of colectomy, ileostomy ROS All systems reviewed and are negative except as per history of present illness. Medications Home Meds Reported Medications Hydroxyzine Pamoate* (Vistaril*) 25 Mg Capsule, 25 MG PO QHS Y for ITCHING, CAP 11/02/15 Albuterol Sulfate* (Proair HFA*) 8.5 Gm Hfa.aer.ad, 2 PUFF INH Q4H Y for WHEEZING AND SOB, #1 INHALER 11/02/15 Folic Acid* (Folic Acid*) 1 Mg Tablet, 1 MG PO DAILY, TAB 11/02/15 Famotidine* (Famotidine*) 20 Mg Tablet, 20 MG PO BID, TAB 11/02/15 Cyanocobalamin* (Vitamin B-12* Inj) 1,000 Mcg/Ml Vial, 1000 MCG IM Q28D, VIAL 11/02/15 Discontinued Scripts Potassium Chloride* (Potassium Chloride*) 20 Meq Tablet.er, 20 MEQ PO DAILY for 30 Days, TAB.SA Prov:ROMI ESPINO 08/21/16 Magnesium Chloride* (Mag 64*) 64 Mg Tabsr, 64 MG PO BID for 14 Days, TAB Prov:FITO ESPINOA 08/21/16 Levofloxacin* (Levaquin*) 500 Mg Tablet, 500 MG PO DAILY for 5 Days, TAB Prov:ROMI ESPINO 08/21/16 Allergies Allergies: Coded Allergies: ferrous sulfate (Verified Allergy, Severe, 09/05/16) ANY FORM OF FERROUS codeine (Verified Allergy, Unknown, 09/05/16) PMhx/Soc History of Surgery: Yes (ileostomy ) Anesthesia Reaction: No Hx 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 Disorder: No Hx Respiratory Disorders: No Hx Cardiac Disorders: No Hx Psychiatric Problems: No Hx Miscellaneous Medical Probl: Yes (UNDERWEIGHT) Hx Alcohol Use: No Hx Substance Use: No Hx Tobacco Use: No Physical Exam Vitals Vital Signs Date Time Temp Pulse Resp B/P Pulse Ox O2 Delivery O2 Flow Rate FiO2 09/05/16 22:22 97.7 108 20 87/44 98 09/05/16 20:06 97.7 121 20 121/60 98 Physical Exam Const: No acute distress. Dehydrated Head: Atraumatic. Eyes: Normal Conjunctiva. ENT: Normal External Ears, Nose and Mouth. Neck: Full range of motion. No meningismus. Resp: Clear to auscultation bilaterally. Cardio: Regular but tachycardic Abd: Soft, non distended, normal bowel sounds, non tender. Ileostomy Skin: No petechiae or rashes. Back: No midline or flank tenderness. Ext: No cyanosis, or edema. Neur: Awake and alert. No focal deficit Psych: Normal Mood and Affect. Result Diagram: 09/05/16215409/05/162154 Results 24 hrs Laboratory Tests Test 09/05/16 21:55 09/05/16 22:23 Activated Partial Thromboplast Time 31.4Sec Alanine Aminotransferase (ALT/SGPT) 51IU/L Albumin 5.3g/dl Albumin/Globulin Ratio 1.29 Alkaline Phosphatase 106IU/L Anion Gap 25 Aspartate Amino Transf (AST/SGOT) 64IU/L Basophils # 0.010^3/ul Basophils % 0.2% Blood Urea Nitrogen 57mg/dl Calcium Level 9.9mg/dl Carbon Dioxide Level 20mmol/L Chloride Level 80mmol/L Creatinine 1.52mg/dl Direct Bilirubin 0.00mg/dl Eosinophils # 0.910^3/ul Eosinophils % 6.9% Globulin 4.10g/dl Glucose Level 120mg/dl Hematocrit 35.4% Hemoglobin 12.9g/dl INR International Normalized Ratio 0.96 Indirect Bilirubin 0.5mg/dl Lipase 85U/L Lymphocytes # 0.910^3/ul Lymphocytes % 7.4% Mean Corpuscular Hemoglobin 31.3pg Mean Corpuscular Hemoglobin Concent 36.4g/dl Mean Corpuscular Volume 85.9fl Mean Platelet Volume 9.5fl Monocytes # 0.810^3/ul Monocytes % 6.6% Neutrophils # 9.910^3/ul Neutrophils % 78.0% Nucleated Red Blood Cells # 0.010^3/ul Nucleated Red Blood Cells % 0.0/100WBC Platelet Count 49123^3/UL Potassium Level 6.1mmol/L Prothrombin Time 12.8Sec Prothrombin Time Ratio 1.0 Red Blood Count 4.1210^6/ul Red Cell Distribution Width 14.5% Sodium Level 119mmol/L Total Bilirubin 0.5mg/dl Total Protein 9.4g/dl White Blood Count 12.710^3/ul Bedside Urine Blood Negative Bedside Urine Glucose (UA) Negative Bedside Urine Ketones (LAB) Negative Bedside Urine Leukocyte Esterase (L Negative Bedside Urine Nitrite (LAB) Negative Bedside Urine Protein (LAB) Negative Bedside Urine pH (LAB) 6.0 Current Medications Medications (Trade) Dose Ordered Sig/Elvie Route PRN Reason Start Time Stop Time Status Last Admin Dose Admin Sodium Chloride (NS) 1,000 ml @ 1,000 mls/hr Q1H STAT IV 09/05/16 21:29 09/05/16 22:28 DC 09/05/16 22:10 Ondansetron HCl (Zofran Inj) 4 mg ONCE STAT IV 09/05/16 21:29 09/05/16 21:31 DC 09/05/16 22:10 Insulin Human Regular (Humulin R) 10 unit ONCE ONCE IV 09/05/16 22:59 09/05/16 23:00 DC 09/05/16 23:29 Dextrose (D50w Syringe) 100 ml ONCE ONCE IV 09/05/16 22:59 09/05/16 23:00 DC 09/05/16 23:28 Sodium Polystyrene Sulfonate (Kayexalate) 30 gm ONCE ONCE PO 09/05/16 22:59 09/05/16 23:00 DC 09/05/16 23:30 Albuterol (Ventolin Hfa) 2 puff Q4H RESP THERAPY PRN INH WHEEZING AND SOB 09/05/16 23:30 Cyanocobalamin (Vitamin B12 Inj) 1,000 mcg Q28D IM 09/05/16 23:30 09/06/16 00:09 Famotidine (Pepcid) 20 mg DAILY PO 09/06/16 09:00 Folic Acid (Folic Acid) 1 mg DAILY PO 09/06/16 09:00 UNV Hydroxyzine Pamoate 25 mg 25 mg QHS PRN PO ITCHING 09/05/16 23:30 UNV Sodium Chloride (NS) 1,000 ml @ 125 mls/hr Q8H IV 09/05/16 23:15 09/06/16 00:10 IV Flush (NS 3 ml) 3 ml PER PROTOCOL IV 09/05/16 23:30 Ondansetron HCl (Zofran Inj) 4 mg Q6H PRN IV NAUSEA AND/OR VOMITING 09/05/16 23:30 Aspirin (Aspirin) 81 mg DAILY PO 09/06/16 09:00 Acetaminophen (Tylenol Tab) 650 mg Q6H PRN PO PAIN LEVEL 1-3 OR FEVER 09/05/16 23:30 Morphine Sulfate (morphine) 2 mg Q4H PRN IV PAIN LEVEL 7-10 09/05/16 23:30 Enoxaparin Sodium (Lovenox) 30 mg DAILY SC 09/06/16 09:00 Procedures/[place] [id number] Radiology Main Line: [phone] DIAGNOSTIC IMAGING REPORT Patient: JACKIE DAMIAN : 1975 Age: 41 Sex: F MR #: [id number] DOS: 09/05/162128 Ordering MD: HORACIO ORO MD Location: E/R Room/Bed: PROCEDURE: XR Chest AP portable CLINICAL INDICATION: Abdominal pain TECHNIQUE: An AP portable radiograph of the chest was submitted. COMPARISON: 08/15/2016 FINDINGS: Support Hardware: None Cardiovascular: The cardiovascular silhouette appears unremarkable. Lung Pal[place]: A faint nodular density previously. Seen to projects inferior to the left hilum is no longer identified and the lung palma are clear except for a small persistent adhesion or focus of discoid atelectasis at the left diaphragmatic pleural. Pleural Spaces: No pneumothorax or pleural effusion is identified. Osseous Structures: The osseous structures appear intact. Soft Tissues: The soft tissues appear unremarkable. IMPRESSION: 1. The faint nodular density previously seen to project to the left lower lung zone inferior to the left hilum is no longer identified. 2. Small adhesion or focus of discoid atelectasis again seen at the left diaphragmatic pleural. 3. Otherwise, stable unremarkable portable chest. Physician Angelina Date Time Electronically viewed and signed by Physician Angelina on 09/05/2016 21:57 RH/ CC: HORACIO ORO MD [place] [id number] Radiology Main Line: [phone] DIAGNOSTIC IMAGING REPORT Patient: JACKIE DAMIAN : 1975 Age: 41 Sex: F MR #: [id number] DOS: 09/05/162128 Ordering MD: HORACIO ORO MD Location: E/R Room/Bed: PROCEDURE: CT Brain without contrast. CLINICAL INDICATION: Weakness and nonacute stroke TECHNIQUE: A CT of the brain was performed on a [employer] 64-slice CT scanner utilizing axial imaging from the skull base through the vertex without IV contrast. Multiplanar reformatted images were made. Images were reviewed on a PACS workstation. The CTDIvol is 43.67 mGy and the DLP is 611.39 mGycm. One of the following 3 dose reduction techniques were used: Automated exposure control; adjustment of the mA and/or kV according to patient size; or use of iterative reconstruction technique. COMPARISON: No relevant priors FINDINGS: There is no intracranial hemorrhage, mass effect, or midline shift. No extra- axial fluid collection is seen. The ventricles and sulci are normal in size and configuration. The density of the brain is normal, and the duran white matter differentiation appears well-preserved. The visualized scalp and calvarium are normal. The bilateral orbits are normal. The bilateral paranasal sinuses, mastoid air cells and middle ear cavities are clear. IMPRESSION: 1. No evidence of acute intracranial hemorrhage, infarcts or acute intracranial pathology. 2. Normal noncontrast head CT. RPTAT: [facility] .Yoko Little MD, Date Time Electronically viewed and signed by .Yoko Little MD, on 09/05/2016 23: 15 .C/ CC: HORACIO ORO MD EKG: Read by emergency physician Rate/Rhythm: Sinus tachycardia 118 beats/min QRS, ST, T-waves: No ST elevation, no T inversion, artifacts Impression: Abnormal EKG MEDICAL MAKING DECISION: The patient is a 41-year-old female, presenting with acute dizziness of unclear etiology, acute hyperkalemia, acute hyponatremia, acute dehydration, acute kidney injury. She was treated with 1 L normal saline for acute dehydration, Zofran 4 mg IV for nausea, 2 amp of D50 IV, 10 units of Regular Insulin IV and Kayexalate 30 g p.o. for acute hyperkalemia with good response. The differential diagnoses considered include but are not limited to central causes such as electrolyte imbalance, dehydration cerebellar infarct, cerebellar hemorrhage, cerebellar tumor, acoustic neuroma, peripheral causes such as benign positional vertigo, labyrinthitis, medication, Meniere's disease. Critical Care: Time: 35 minutes excluding all billable procedures. Treatments/Evaluations: Close monitoring and treatment of unstable vital signs, cardiorespiratory, and neurologic status, while maintaining tight balance of fluid, respiratory, and cardiac interventions. Departure Diagnosis: Primary Impression: Dizziness Additional Impressions: Hyperkalemia Dehydration Acute kidney injury Hyponatremia Condition: Serious Comments I discussed the findings with the patient. I discussed the patient with his physician Dr. Prasad who was made aware of the lab, the treatment, the patient condition. The patient is admitted to telemetry at 11:15 PM by HORACIO Diehl MD Sep 05, 2016 21:22
[2016-09-05] MEDS ORDERED: ONDANSETRON 4 MG INJ IV STA (21:29)
[2016-09-05] MEDS ORDERED: SOD CHLORIDE 0.9% 1,000 ML IV STA (21:29)
--- NOTE | 2016-09-05 21:57 | RADRPT ---
PROCEDURE: XR Chest AP portable CLINICAL INDICATION: Abdominal pain TECHNIQUE: An AP portable radiograph of the chest was submitted. COMPARISON: 08/15/2016 FINDINGS: Support Hardware: None Cardiovascular: The cardiovascular silhouette appears unremarkable. Lung Corre[place]: A faint nodular density previously. Seen to projects inferior to the left hilum is no longer identified and the lung correia are clear except for a small persistent adhesion or focus of d iscoid atelectasis at the left diaphragmatic pleural. Pleural Spaces: No pneumothorax or pleural effusion is identified. Osseous Structures: The osseous structures appear intact. Soft Tissues: The soft tissues appear unremarkable. IMPRESSION: 1. The faint nodular density previously seen to project to the left lower lung zone inferior to the left hilum is no longer identified. 2. Small adhesion or focus of discoid atelectasis again seen at the left diaphragmatic pleural. 3. Otherwise, stable unremarkable portable chest. Physician Angelina Date Time Electronically viewed and signed by Physician Angelina on 09/05/2016 21:57 /
[2016-09-05 22:21] LABS: ADD SCAN DIFF NO
[2016-09-05 22:22] LABS: URINE BLOOD (Dip) POC Negative (NEGATIVE)
[2016-09-05 22:25] LABS: BASOPHILS % 0.2 % (0.0-2.0); EOSINOPHILS # 0.9 10^3/ul (0.0-0.5); EOSINOPHILS % 6.9 % (0.0-7.0); HEMATOCRIT 35.4 % (37.0-47.0); HEMOGLOBIN 12.9 g/dl (12.0-16.0); LYMPHOCYTES # 0.9 10^3/ul (0.8-2.9); LYMPHOCYTES % 7.4 % (15.0-51.0); MEAN CORPUSCULAR HEMOGLOBIN 31.3 pg (29.0-33.0); MEAN CORPUSCULAR HGB CONC 36.4 g/dl (32.0-37.0); MEAN CORPUSCULAR VOLUME 85.9 fl (82.0-101.0); MEAN PLATELET VOLUME 9.5 fl (7.4-10.4); MONOCYTE # 0.8 10^3/ul (0.3-0.9); MONOCYTES % 6.6 % (0.0-11.0); NEUTROPHIL # 9.9 10^3/ul (1.6-7.5); PLATELET COUNT 593 10^3/UL (140-415); RED BLOOD COUNT 4.12 10^6/ul (4.20-5.40); RED CELL DISTRIBUTION WIDTH 14.5 % (11.5-14.5); WHITE BLOOD COUNT 12.7 10^3/ul (4.8-10.8)
[2016-09-05 22:32] LABS: ALBUMIN 5.3 g/dl (3.3-4.9); INR 0.96; PROTIME 12.8 Sec (12.2-14.2)
[2016-09-05 22:33] LABS: PARTIAL THROMBOPLASTIN TIME 31.4 Sec (25.0-35.0)
[2016-09-05 22:34] LABS: BILIRUBIN,INDIRECT 0.5 mg/dl (0-1.1); BILIRUBIN,TOTAL 0.5 mg/dl (0.2-1.3); CREATININE 1.52 mg/dl (0.44-1.00)
[2016-09-05 22:35] LABS: ALBUMIN/GLOBULIN RATIO 1.29; CALCIUM 9.9 mg/dl (8.4-10.2); TOTAL PROTEIN 9.4 g/dl (6.1-8.1)
[2016-09-05 22:39] LABS: POTASSIUM 6.1 mmol/L (3.5-5.1)
[2016-09-05] MEDS ORDERED: INSULIN REGULAR, HUMAN 100 UNIT/1 ML 3ML VIAL IV ONE (22:59)
[2016-09-05] MEDS ORDERED: NA POLYST SULFON 15 GM/60 ML BTL PO ONE (22:59)
[2016-09-05] MEDS ORDERED: DEXTROSE 50% 50 ML SYRINGE IV ONE (22:59)
--- NOTE | 2016-09-05 23:16 | RADRPT ---
PROCEDURE: CT Brain without contrast. CLINICAL INDICATION: Weakness and nonacute stroke TECHNIQUE: A CT of the brain was performed on a [employer] 64-slice CT scanner utilizing axial imaging from the skull base through the vertex without IV contrast. Multiplanar reformatted images were made. Images were reviewed on a PACS workstation. The CTDIvol is 43.67 mGy and the DLP is 611 .39 mGycm. One of the following 3 dose reduction techniques were used: Automated exposure control; adjustment of the mA and/or kV according to patient size; or use of iterative reconstruction technique. COMPARISON: No relevant priors FINDINGS: There is no intracranial hemorrhage, mass effect, or midline shift. No extra-axial fluid collection is seen. The ventricles and sulci are normal in size and configuration. The density of the brain is normal, and the duran white matter differentiation appears well-preserved. The visualized scalp and calvarium are normal. The bilateral orbits are normal. The bilateral para nasal sinuses, mastoid air cells and middle ear cavities are clear. IMPRESSION: 1. No evidence of acute intracranial hemorrhage, infarcts or acute intracranial pathology. 2. Normal noncontrast head CT. RPTAT: [facility] .Yoko Little MD, MD Date Time Electronically viewed and signed by .Yoko Little MD, on 09/05/2016 23:15 .C/
[2016-09-05] MEDS ORDERED: ONDANSETRON 4 MG INJ IV PRN (23:30)
[2016-09-05] MEDS ORDERED: ACETAMINOPHEN 325 MG TAB PO PRN (23:30)
[2016-09-05] MEDS ORDERED: CYANOCOBALAMIN 1000 MCG INJ IM SCH (23:30)
[2016-09-05] MEDS ORDERED: ALBUTEROL HFA 8 GM INHALER INH PRN (23:30)
[2016-09-05] MEDS ORDERED: NACL 0.9% 3 ML SYG IV SCH (23:30)
[2016-09-06] MEDS: SOD CHLORIDE 0.9% 1,000 ML IV SCH ×5 (00:10→23:15)
[2016-09-06 05:32] LABS: ADD SCAN DIFF NO
[2016-09-06 05:39] LABS: BASOPHILS % 0.4 % (0.0-2.0); EOSINOPHILS # 0.6 10^3/ul (0.0-0.5); EOSINOPHILS % 7.6 % (0.0-7.0); HEMATOCRIT 39.7 % (37.0-47.0); HEMOGLOBIN 14.1 g/dl (12.0-16.0); LYMPHOCYTES # 0.7 10^3/ul (0.8-2.9); LYMPHOCYTES % 8.7 % (15.0-51.0); MEAN CORPUSCULAR HEMOGLOBIN 31.1 pg (29.0-33.0); MEAN CORPUSCULAR HGB CONC 35.5 g/dl (32.0-37.0); MEAN CORPUSCULAR VOLUME 87.4 fl (82.0-101.0); MEAN PLATELET VOLUME 9.5 fl (7.4-10.4); MONOCYTE # 0.7 10^3/ul (0.3-0.9); MONOCYTES % 8.7 % (0.0-11.0); NEUTROPHIL # 6.1 10^3/ul (1.6-7.5); NEUTROPHILS % 73.9 % (39.0-77.0); PLATELET COUNT 488 10^3/UL (140-415); RED BLOOD COUNT 4.54 10^6/ul (4.20-5.40); RED CELL DISTRIBUTION WIDTH 14.7 % (11.5-14.5); WHITE BLOOD COUNT 8.3 10^3/ul (4.8-10.8)
[2016-09-06 05:56] LABS: ALBUMIN 5.1 g/dl (3.3-4.9); POTASSIUM 5.6 mmol/L (3.5-5.1)
[2016-09-06 05:59] LABS: ALBUMIN/GLOBULIN RATIO 1.34; BILIRUBIN,INDIRECT 0.7 mg/dl (0-1.1); BILIRUBIN,TOTAL 0.7 mg/dl (0.2-1.3); CALCIUM 9.7 mg/dl (8.4-10.2); CREATININE 1.51 mg/dl (0.44-1.00); TOTAL PROTEIN 8.9 g/dl (6.1-8.1)
[2016-09-06] MEDS: ASPIRIN 81 MG TAB PO SCH (10:30)
[2016-09-06] MEDS: FOLIC ACID 1 MG TAB PO SCH (10:30)
[2016-09-06] MEDS: FAMOTIDINE 20 MG TAB PO SCH (10:30)
[2016-09-06] MEDS: ENOXAPARIN 30 MG/0.3 ML SYG SC SCH (10:31)
[2016-09-06 11:18] VITALS: TEMP 98
--- NOTE | 2016-09-06 12:00 | HP ---
DATE OF ADMISSION: 09/05/2016 CHIEF COMPLAINT: Headache and dizziness. HISTORY OF PRESENT ILLNESS: The patient is a 41-year-old female with a history of Hirschsprung's di sease status post colectomy with ileostomy. The patient presented to the emergency room due to a he adache and dizziness for the last couple of days. The patient has a history of chronic headaches. The patient also has a history of electrolyte imbalances and at home takes potassium and magnesium s upplements. The patient stated that she was nauseous. The patient denies any emesis. The patient has complaints of dysuria and polyuria. Patient's urinalysis in the emergency room was unremarkable . The patient has elevation in white blood cells to12.7; however, the patient denies any fever, den ies any chills. Chemistry revealed hyponatremia, with sodium being 119, potassium 6.1 and elevated BUN and creatinine. The patient was given Kayexalate for hyperkalemia and was given Zofran. The pa tient was given 1 liter of normal saline. The patient will be admitted for further evaluation and m anagement. PAST MEDICAL HISTORY: Per HPI. PAST SURGICAL HISTORY: Patient is status post ileostomy with a history of multiple abdominal surger ies for Hirschsprung's disease in childhood. FAMILY HISTORY: Positive for diabetes in the patient's mother. SOCIAL HISTORY: The patient lives at home with her mother. The patient denies any tobacco use, den ies any alcohol use, denies any illicit drug use. ALLERGIES: PATIENT IS ALLERGIC TO CODEINE AND FERROUS SULFATE. HOME MEDICATIONS: Includes: 1. Vistaril. 2. Albuterol. 3. Folic acid. 4. Pepcid. 5. Vitamin B12. 6. Potassium chloride. 7. Magnesium, Mag 64. REVIEW OF SYSTEMS: A 12-point review of systems is negative unless mentioned in the HPI. PHYSICAL ASSESSMENT: GENERAL: The patient is a well-nourished female, in no acute distress. HEENT: Head is atraumatic, normocephalic. Pupils equal, round, reactive to light and accommodation . Oral mucosa is pink and moist. NECK: Supple. No cervical lymphadenopathy, no thyromegaly. CHEST: Lungs clear bilaterally. There are no rhonchi, wheezes or rales noted. CARDIOVASCULAR: The patient is slightly tachycardic. Normal S1, S2. No murmurs, gallops, clicks o r rubs noted. ABDOMEN: Flat, soft, nondistended, nontender. Patient has a right lower quadrant ileostomy. EXTREMITIES: No edema, clubbing or cyanosis. Pulses are equal bilaterally at 2+. SKIN: There is no rash or petechiae noted. NEUROLOGIC: Patient is awake, alert and oriented x3. No focal deficits noted. Motor strength is 5 /5 in all extremities. LABORATORY DATA: Admission CBC: White blood cells 12.7, hemoglobin 12.9, hematocrit 35.4, platelet s 593. Chemistry: On admission sodium was 119, potassium 6.1, chloride 80, carbon dioxide 20, anio n gap 25, BUN 57, creatinine 1.52, glucose 120, calcium is 9.9. AST 64, ALT 51, alkaline phosphatase 106, lipase is 85. IMAGING: A chest x-ray on admission with: 1. Faint nodular density, previously seen to project in the left lower lung zone inferior to the lef t hilum, is no longer identified. 2. Small adhesions, a focus of dislocation atelectasis again seen at the left diaphragmatic pleura. 3. Otherwise stable and remarkable portable chest. Brain CT with impression: 1. No evidence of acute intracranial hemorrhage, infarct or acute intracranial pathology. 2. Normal noncontrast head CT. ASSESSMENT AND PLAN: 1. Headache and dizziness. CT is negative for any acute abnormality. Patient is awake, alert and oriented x3. 2. Hyperkalemia secondary to dehydration. 3. Hyponatremia. 4. Acute kidney injury. 5. Ileostomy. 6. Hirschsprung's disease, status post multiple abdominal surgeries in the past. PLAN: 1. We are going to admit the patient on the telemetry floor. Continue to monitor electrolytes. Co ntinue IV fluids. Continue Zofran for nausea and morphine p.r.n. for pain. Dr. Vinicio Spain will be following the patient in nephrology consultation. 2. Thrombocytosis. Continue to monitor CBC. Continue Lovenox for deep venous thrombosis prophylax is and Pepcid for peptic ulcer disease prophylaxis. Further recommendations based on clinical course. Plan of care discussed with Dr. Paez. Dictated By: ROMI ESPINO CHIEF AIRPORT GUIDE for CARLOS PAEZ MD SR/CRISTINA Conf#: [id number] DID#: [id number]
[2016-09-06] MEDS ORDERED: NA POLYST SULFON 15 GM/60 ML BTL PO ONE (13:00)
--- NOTE | 2016-09-06 13:29 | CONS ---
DATE OF ADMISSION: 09/05/2016 DATE OF CONSULTATION: 09/06/2016 REFERRING PHYSICIAN: Dr. Paez REASON FOR CONSULTATION: Acute kidney injury with a creatinine of 1.5, acute hyperkalemia, potassiu m 6.1, severe hyponatremia, sodium 119. HISTORY OF PRESENT ILLNESS: This is a 41-year-old female, however, with a past medical history of H irschsprung disease, status post colectomy with ileostomy. She presented to the emergency room with a complaint of headache, generalized dizziness for the last couple of days. 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 She was found to have acute kidney injury with a creatinine of 1.5, but her potassium was 6.1 and sodium was 119. The patient received IV fluids and had 2 liters overnight bolus. Also , received 1 dose of Kayexalate 30 grams for hyperkalemia today morning. The patient still has acut e kidney injury with a creatinine of 5.5. Her potassium is improved from 6.1 to 5.6, and the sodium is 133. At the time of my evaluation, the patient is able to tolerate a p.o. diet very well withou t having any dysphagia. She also complains of dysuria and polyuria. The patient had a WBC count el evated up to 12.7, she is getting admitted to the telemetry floor for further workup and Renal has b yeen consulted for acute hyperkalemia, severe hyponatremia, sodium 119, and acute kidney injury with a creatinine of 1.56. REVIEW OF SYSTEMS: As per HPI. PAST MEDICAL HISTORY: History of Hirschsprung disease, colectomy and ileostomy. PAST SURGICAL HISTORY: Status post ileostomy with a history of multiple abdominal surgeries for Hir schsprung disease in childhood. FAMILY HISTORY: Positive for diabetes in the patient's mother. SOCIAL HISTORY: The patient lives with her mother at home. She denies any tobacco, alcohol or recr eational drug use. ALLERGIES: 1. CODEINE. 2. FERROUS SULFATE. HOME MEDICATIONS: Include: 1. Folic acid. 2. Pepcid. 3. Vitamin B12. 4. Potassium chloride. 5. Magnesium. REVIEW OF SYSTEMS: Positive for generalized weakness, headache, dysuria, polyuria. Other 12-point review of systems has been obtained and is negative except what is mentioned in the history of prese nt illness. PHYSICAL EXAMINATION: VITAL SIGNS: Temperature 98, heart rate 108, respirations 17, blood pressure 122/83, saturation 100 % on room air. GENERAL: Awake, alert, in no acute distress. HEENT: Normal. Oropharynx clear. NECK: Supple, no JVD, no lymphadenopathy. Oral mucosa pink and moist. CHEST: Lungs clear bilaterally, no rhonchi, no wheezes. HEART: S1, S2, tachycardia, no murmur. ABDOMEN: Soft, nontender, nondistended. Right lower quadrant ileostomy is present. SKIN: No rash, no petechiae. NEUROLOGICAL: The patient is awake, alert, oriented x3. No focal deficits noted. Strength 5/5 in all extremities. LABORATORY DATA/DIAGNOSTIC IMAGING: Sodium 119, potassium 6.1, chloride 180, bicarbonate 20, BUN 57 , creatinine 1.5, glucose 120, calcium 9.9, albumin is 5.3. PT 12.8, PTT 31.4, INR 0.96. WBC 12.7, hemoglobin 12.9, platelet count is 593, urinalysis is negative for any infections. Imaging studies done in the emergency room: 1. CT head without contrast negative. 2. Chest x-ray, 1 view portable, shows a faint density in the left lower lung with small adhesions or focus of discoid atelectasis seen in the left paradiaphragmatic pleura. IMPRESSION: This is a 41-year-old female who is getting admitted for headache and dizziness and Gaston vega has been consulted for: 1. Acute kidney injury secondary to prerenal azotemia. 2. Severe hyponatremia, likely secondary to hypovolemic hyponatremia. 3. Acute hyperkalemia secondary to acute kidney injury and moderate to severe dehydration. 4. Moderate to severe dehydration. 5. History of Hirschsprung disease, status post multiple abdominal surgeries in the past, status po st ileostomy. PLAN: Thank you, Dr. Paez, for this consultation. The patient likely has hypovolemic hyponatre laura and acute kidney injury secondary to prerenal azotemia. I will continue the patient on IV fluid s NS at 125 mL per hour. I ordered a BMP to be done at 3:00 p.m. today. I also ordered a renal ult rasound to assess the kidney size and to rule out hydronephrosis and workup of the chronic kidney di sease Morning labs including a CK total and uric acid has been ordered. The patient is currently seen in the emergency room and she will be followed up along with her cours e in the hospital. Dictated By: ROHAN VELÁZQUEZ MD, KP/CRISTINA Conf#: [id number] DID#: [id number]
--- NOTE | 2016-09-06 14:06 | RADRPT ---
PROCEDURE: Retroperitoneal US. CLINICAL INDICATION: Renal insufficiency TECHNIQUE: Multiple sonographic images of the kidneys and retroperitoneum were obtained. The imag es were reviewed on a PACS workstation. COMPARISON: No prior studies are available for comparison. FINDINGS: The right kidney measures 10 cm. The left kidney measures 9.3 cm. There is increased echogenicity of the kidneys. There is no evidence of hydronephrosis. The urinary bladder is normal. IMPRESSION: Echogenic kidneys, consistent with medical renal disease. No evidence of hydronephrosis. RPTAT: [facility] .Porfirio Blanton MD, Date Time Electronically viewed and signed by .Porfirio Blanton MD, on 09/06/2016 14:05 .S/
[2016-09-06 15:00] VITALS: BP 106/53; PULSE 111; RESP 19; Ht 147.3 cm; Wt 46.1 kg
[2016-09-06 15:59] VITALS: BP 102/67; RESP 19
[2016-09-06 16:36] LABS: POTASSIUM 4.2 mmol/L (3.5-5.1)
[2016-09-06 16:39] LABS: CREATININE 1.32 mg/dl (0.44-1.00)
[2016-09-06 16:40] LABS: CALCIUM 9.7 mg/dl (8.4-10.2)
[2016-09-06 20:00] VITALS: BP 104/58; RESP 15
[2016-09-06 20:34] VITALS: PULSE 124
[2016-09-07] VITALS (12 sets, daily range): BP systolic 95–133; BP diastolic 55–79; PULSE 105–133; RESP 15–20
[2016-09-07] MEDS: hydrOXYzine PAMOATE 25 MG CAP PO PRN ×2 (00:06→22:09)
[2016-09-07] MEDS: SOD CHLORIDE 0.9% 1,000 ML IV SCH ×3 (00:47→15:15)
[2016-09-07 08:44] LABS: ADD SCAN DIFF NO
[2016-09-07] MEDS: FOLIC ACID 1 MG TAB PO SCH (08:51)
[2016-09-07] MEDS: FAMOTIDINE 20 MG TAB PO SCH (08:51)
[2016-09-07] MEDS: ASPIRIN 81 MG TAB PO SCH (08:52)
[2016-09-07 08:56] LABS: BASOPHILS % 0.5 % (0.0-2.0); EOSINOPHILS # 1.5 10^3/ul (0.0-0.5); EOSINOPHILS % 22.9 % (0.0-7.0); HEMATOCRIT 33.3 % (37.0-47.0); HEMOGLOBIN 11.6 g/dl (12.0-16.0); LYMPHOCYTES # 0.6 10^3/ul (0.8-2.9); LYMPHOCYTES % 9.3 % (15.0-51.0); MEAN CORPUSCULAR HEMOGLOBIN 31.7 pg (29.0-33.0); MEAN CORPUSCULAR HGB CONC 34.8 g/dl (32.0-37.0); MEAN PLATELET VOLUME 9.8 fl (7.4-10.4); MONOCYTE # 0.5 10^3/ul (0.3-0.9); MONOCYTES % 7.8 % (0.0-11.0); NEUTROPHIL # 3.9 10^3/ul (1.6-7.5); PLATELET COUNT 472 10^3/UL (140-415); POTASSIUM 3.5 mmol/L (3.5-5.1); RED BLOOD COUNT 3.66 10^6/ul (4.20-5.40); RED CELL DISTRIBUTION WIDTH 14.9 % (11.5-14.5); WHITE BLOOD COUNT 6.6 10^3/ul (4.8-10.8)
[2016-09-07 08:58] LABS: CREATININE 0.98 mg/dl (0.44-1.00)
[2016-09-07] MEDS: ENOXAPARIN 30 MG/0.3 ML SYG SC SCH (08:58)
[2016-09-07 08:59] LABS: CALCIUM 8.7 mg/dl (8.4-10.2)
[2016-09-07] MEDS ORDERED: INFLUENZA VIRUS VACCINE 0.5 ML SYG IM* ONE (09:00)
--- NOTE | 2016-09-07 12:06 | CONS ---
Date/Time of Note Date/Time of Note DATE: 09/07/16 TIME: 12:04 Assessment/Plan Assessment/Plan Additional Assessment/Plan 1. Acute kidney injury secondary to prerenal azotemia. 2. Severe hyponatremia, likely secondary to hypovolemic hyponatremia. 3. Acute hyperkalemia secondary to acute kidney injury and moderate to severe dehydration. 4. Moderate to severe dehydration. 5. 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 PLAN: continue 1/2 NS, Na improved to billy, will follow up K normal Consultation Date/Type/Reason Admit Date/Time Sep 05, 2016 at 23:14 Initial Consult Date Aug Type of Consultation: NEPHROLOGY Reason for Consultation severe Hyponatremia Referring Provider: CARLOS RODRIGUEZ MD 24 HR Interval Summary Free Text/Dictation pt awake, alert, Na imrpoved to normal Exam/Review of Systems Vital Signs Vitals Vital Signs Date Time Temp Pulse Resp B/P Pulse Ox O2 Delivery O2 Flow Rate FiO2 09/07/16 11:13 98.1 97 19 98/55 98 09/06/16 15:00 Room Air Intake and Output 09/06/16 09/06/16 09/07/16 14:59 22:59 06:59 Intake Total 300 ml 300 ml 2120 ml Output Total 1850 ml 400 ml 600 ml Balance -1550 ml -100 ml 1520 ml Exam GENERAL: Awake, alert, in no acute distress. HEENT: Normal. Oropharynx clear. NECK: Supple, no JVD, no lymphadenopathy. Oral mucosa pink and moist. CHEST: Lungs clear bilaterally, no rhonchi, no wheezes. HEART: S1, S2, tachycardia, no murmur. ABDOMEN: Soft, nontender, nondistended. Right lower quadrant ileostomy is present. SKIN: No rash, no petechiae. NEUROLOGICAL: The patient is awake, alert, oriented x3. No focal deficits noted. Strength 5/5 in all extremities. Results Result Diagram: 09/07/16 0635 09/07/16 0635 Results 24 hrs Laboratory Tests Test 09/06/16 16:19 09/07/16 06:35 Anion Gap 23 H 19 H Blood Urea Nitrogen 42 H 33 H Calcium Level 9.7 8.7 Carbon Dioxide Level 26 24 Chloride Level 93 L 98 Creatinine 1.32 H 0.98 Glucose Level 121 146 Potassium Level 4.2 3.5 Sodium Level 138 137 Basophils # 0.0 Basophils % 0.5 Creatine Kinase 53 Eosinophils # 1.5 H Eosinophils % 22.9 H Hematocrit 33.3 L Hemoglobin 11.6 L Lymphocytes # 0.6 L Lymphocytes % 9.3 L Mean Corpuscular Hemoglobin 31.7 Mean Corpuscular Hemoglobin Concent 34.8 Mean Corpuscular Volume 91.0 Mean Platelet Volume 9.8 Monocytes # 0.5 Monocytes % 7.8 Neutrophils # 3.9 Neutrophils % 59.0 Nucleated Red Blood Cells # 0.0 Nucleated Red Blood Cells % 0.0 Platelet Count 472 H Red Blood Count 3.66 L Red Cell Distribution Width 14.9 H Uric Acid 7.0 White Blood Count 6.6 # Medications Medications Current Medications Cyanocobalamin (Vitamin B12 Inj) 1,000 mcg Q28D IM Last administered on 00:09; Admin Dose 1,000 MCG; Start 09/05/16 at 23:30 Famotidine (Pepcid) 20 mg DAILY PO Last administered on 09/07/16 08:51; Admin Dose 20 MG; Start 09/06/16 at 09:00 Folic Acid (Folic Acid) 1 mg DAILY PO Last administered on 09/07/16 08:51; Admin Dose 1 MG; Start 09/06/16 at 09:00 Hydroxyzine Pamoate 25 mg 25 mg QHS PRN PO ITCHING Last administered on 00:06; Admin Dose 25 MG; Start 09/05/16 at 23:30 Sodium Chloride (NS) 1,000 ml @ 125 mls/hr Q8H IV Last administered on 11:49; Admin Dose 125 MLS/HR; Start 09/05/16 at 23:15 Ondansetron HCl (Zofran Inj) 4 mg Q6H PRN IV NAUSEA AND/OR VOMITING; Start at 23:30 Aspirin (Aspirin) 81 mg DAILY PO Last administered on 09/07/16 08:52; Admin Dose 81 MG; Start 09/06/16 at 09:00 Acetaminophen (Tylenol Tab) 650 mg Q6H PRN PO PAIN LEVEL 1-3 OR FEVER; Start at 23:30 Morphine Sulfate (morphine) 2 mg Q4H PRN IV PAIN LEVEL 7-10; Start 09/05/16 at 23:30 Enoxaparin Sodium 30 mg 30 mg DAILY SC Last administered on 09/07/16 08:58; Admin Dose 30 MG; Start 09/06/16 at 09:00 Sodium Chloride (NS) 1,000 ml @ 70 mls/hr [id number] IV Last administered on 09/07 00:47; Admin Dose 70 MLS/HR; Start 09/06/16 at 12:00 ROHAN VELÁZQUEZ MD Sep 07, 2016 12:06
--- NOTE | 2016-09-07 14:33 | PN ---
Date/Time of Note Date/Time of Note DATE: 09/07/16 TIME: 14:30 Assessment/Plan VTE Prophylaxis VTE Prophylaxis Intervention: LMWH Lines/Catheters IV Catheter Type (from Nrs): Peripheral IV Urinary Cath still in place: No Assessment/Plan Assessment/Plan 1. Headache and dizziness. CT is negative for any acute abnormality. Patient is awake, alert and oriented x3. 2. Hyperkalemia secondary to dehydration. -telemetry floor. 3. Hyponatremia. 4. Acute kidney injury. - per Dr. Vinicio Spain in nephrology consultation - IVF - Zofran for nausea and morphine p.r.n. for pain. 5. Ileostomy. 6. Hirschsprung's disease, status post multiple abdominal surgeries in the past. 7. Thrombocytosis - improving, - Continue to monitor CBC. 8. Lovenox for deep venous thrombosis prophylaxis 9. Pepcid for peptic ulcer disease prophylaxis. Further recommendations based on clinical course. Plan of care discussed with Dr. Paez. Subjective 24 Hr Interval Summary Eyes: no complaints ENT: no complaints Respiratory: no complaints Cardiovascular: no complaints Gastrointestinal: other Genitourinary: no complaints Musculoskeletal: no complaints Skin: no complaints Neurologic: no complaints Endocrine: no complaints Lymphatic: no complaints Psychological: no complaints Immunologic: no complaints Exam/Review of Systems Vital Signs Vitals Vital Signs Date Time Temp Pulse Resp B/P Pulse Ox O2 Delivery O2 Flow Rate FiO2 09/07/16 12:44 105 09/07/16 11:13 98.1 19 98/55 98 09/06/16 15:00 Room Air Intake and Output 09/06/16 09/06/16 09/07/16 15:00 23:00 07:00 Intake Total 300 ml 300 ml 2120 ml Output Total 1850 ml 400 ml 600 ml Balance -1550 ml -100 ml 1520 ml Exam Constitutional: alert, oriented, well developed Psych: no complaints Head: atraumatic Eyes: EOMI, PERRL, nl sclera ENMT: nl external ears & nose Neck: non-tender Respiratory: clear to auscultation Cardiovascular: nl pulses Gastrointestinal: other, soft, surgical scars Musculoskeletal: nl extremities to inspection Extremities: normal pulses 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: nl mental status, nl speech Lymph: nontender Results Result Diagram: 09/07/16 0635 09/07/16 0635 Results 24 hrs Laboratory Tests Test 09/06/16 16:19 09/07/16 06:35 Anion Gap 23 H 19 H Blood Urea Nitrogen 42 H 33 H Calcium Level 9.7 8.7 Carbon Dioxide Level 26 24 Chloride Level 93 L 98 Creatinine 1.32 H 0.98 Glucose Level 121 146 Potassium Level 4.2 3.5 Sodium Level 138 137 Basophils # 0.0 Basophils % 0.5 Creatine Kinase 53 Eosinophils # 1.5 H Eosinophils % 22.9 H Hematocrit 33.3 L Hemoglobin 11.6 L Lymphocytes # 0.6 L Lymphocytes % 9.3 L Mean Corpuscular Hemoglobin 31.7 Mean Corpuscular Hemoglobin Concent 34.8 Mean Corpuscular Volume 91.0 Mean Platelet Volume 9.8 Monocytes # 0.5 Monocytes % 7.8 Neutrophils # 3.9 Neutrophils % 59.0 Nucleated Red Blood Cells # 0.0 Nucleated Red Blood Cells % 0.0 Platelet Count 472 H Red Blood Count 3.66 L Red Cell Distribution Width 14.9 H Uric Acid 7.0 White Blood Count 6.6 # Medications Medications Current Medications Cyanocobalamin (Vitamin B12 Inj) 1,000 mcg Q28D IM Last administered on 00:09; Admin Dose 1,000 MCG; Start 09/05/16 at 23:30 Famotidine (Pepcid) 20 mg DAILY PO Last administered on 09/07/16 08:51; Admin Dose 20 MG; Start 09/06/16 at 09:00 Folic Acid (Folic Acid) 1 mg DAILY PO Last administered on 09/07/16 08:51; Admin Dose 1 MG; Start 09/06/16 at 09:00 Hydroxyzine Pamoate 25 mg 25 mg QHS PRN PO ITCHING Last administered on 00:06; Admin Dose 25 MG; Start 09/05/16 at 23:30 Sodium Chloride (NS) 1,000 ml @ 125 mls/hr Q8H IV Last administered on 11:49; Admin Dose 125 MLS/HR; Start 09/05/16 at 23:15 Ondansetron HCl (Zofran Inj) 4 mg Q6H PRN IV NAUSEA AND/OR VOMITING; Start at 23:30 Aspirin (Aspirin) 81 mg DAILY PO Last administered on 09/07/16 08:52; Admin Dose 81 MG; Start 09/06/16 at 09:00 Acetaminophen (Tylenol Tab) 650 mg Q6H PRN PO PAIN LEVEL 1-3 OR FEVER; Start at 23:30 Morphine Sulfate (morphine) 2 mg Q4H PRN IV PAIN LEVEL 7-10; Start 09/05/16 at 23:30 Enoxaparin Sodium 30 mg 30 mg DAILY SC Last administered on 09/07/16 08:58; Admin Dose 30 MG; Start 09/06/16 at 09:00 Sodium Chloride (NS) 1,000 ml @ 70 mls/hr [id number] IV Last administered on 09/07 00:47; Admin Dose 70 MLS/HR; Start 09/06/16 at 12:00 DEVENDRA GOMES Sep 07, 2016 14:33
[2016-09-08] VITALS (13 sets, daily range): BP systolic 96–123; BP diastolic 63–70; PULSE 94–155; RESP 15–20
[2016-09-08 06:13] LABS: ADD SCAN DIFF NO
[2016-09-08 06:21] LABS: ABNORMAL IP MESSAGE 1; BASOPHILS % 0.3 % (0.0-2.0); EOSINOPHILS % 20.5 % (0.0-7.0); HEMATOCRIT 32.2 % (37.0-47.0); HEMOGLOBIN 11.2 g/dl (12.0-16.0); LYMPHOCYTES # 0.6 10^3/ul (0.8-2.9); LYMPHOCYTES % 6.1 % (15.0-51.0); MEAN CORPUSCULAR HEMOGLOBIN 31.6 pg (29.0-33.0); MEAN CORPUSCULAR HGB CONC 34.8 g/dl (32.0-37.0); MEAN PLATELET VOLUME 9.7 fl (7.4-10.4); MONOCYTE # 0.6 10^3/ul (0.3-0.9); MONOCYTES % 6.2 % (0.0-11.0); NEUTROPHIL # 6.4 10^3/ul (1.6-7.5); NEUTROPHILS % 66.5 % (39.0-77.0); PLATELET COUNT 448 10^3/UL (140-415); RED BLOOD COUNT 3.54 10^6/ul (4.20-5.40); RED CELL DISTRIBUTION WIDTH 14.4 % (11.5-14.5); WHITE BLOOD COUNT 9.7 10^3/ul (4.8-10.8)
[2016-09-08 06:41] LABS: POTASSIUM 3.6 mmol/L (3.5-5.1)
[2016-09-08 07:00] LABS: CALCIUM 9.2 mg/dl (8.4-10.2); CREATININE 0.85 mg/dl (0.44-1.00)
[2016-09-08] MEDS: FAMOTIDINE 20 MG TAB PO SCH (09:24)
[2016-09-08] MEDS: FOLIC ACID 1 MG TAB PO SCH (09:24)
[2016-09-08] MEDS: ASPIRIN 81 MG TAB PO SCH (09:24)
[2016-09-08] MEDS: hydrOXYzine PAMOATE 25 MG CAP PO PRN ×2 (09:24→20:05)
[2016-09-08] MEDS: ENOXAPARIN 30 MG/0.3 ML SYG SC SCH (09:32)
--- NOTE | 2016-09-08 11:52 | CONS ---
Date/Time of Note Date/Time of Note DATE: 09/08/16 TIME: 11:50 Assessment/Plan Assessment/Plan Additional Assessment/Plan 1. Acute kidney injury secondary to prerenal azotemia. 2. Severe hyponatremia, likely secondary to hypovolemic hyponatremia. 3. Acute hyperkalemia secondary to acute kidney injury and moderate to severe dehydration. 4. Moderate to severe dehydration. 5. 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 PLAN: continue 1/2 NS, BP stable cr improved to normal, Electrolytes stable today will follow up K normal Consultation Date/Type/Reason Admit Date/Time Sep 05, 2016 at 23:14 Initial Consult Date Aug Type of Consultation: NEPHROLOGY Reason for Consultation hyperkalemia, acute kidney injury Referring Provider: CARLOS RODRIGUEZ MD 24 HR Interval Summary Free Text/Dictation no events overnight,BP stable cr improved to normal, Electrolytes stable today Exam/Review of Systems Vital Signs Vitals Vital Signs Date Time Temp Pulse Resp B/P Pulse Ox O2 Delivery O2 Flow Rate FiO2 09/08/16 08:12 100 09/08/16 07:50 98.0 18 123/70 100 09/06/16 15:00 Room Air Intake and Output 09/07/16 09/07/16 09/08/16 15:00 23:00 07:00 Intake Total 500 ml 200 ml Output Total 450 ml 450 ml Balance 50 ml -250 ml Exam GENERAL: Awake, alert, in no acute distress. NECK: Supple, no JVD, no lymphadenopathy. Oral mucosa pink and moist. CHEST: Lungs clear bilaterally, no rhonchi, no wheezes. HEART: S1, S2, tachycardia, no murmur. ABDOMEN: Soft, nontender, nondistended. Right lower quadrant ileostomy is present. Results Result Diagram: 09/08/16 0530 09/08/16 0530 Results 24 hrs Laboratory Tests Test 09/08/16 05:30 Anion Gap 19 H Basophils # 0.0 Basophils % 0.3 Blood Urea Nitrogen 25 H Calcium Level 9.2 Carbon Dioxide Level 24 Chloride Level 96 L Creatinine 0.85 Eosinophils # 2.0 H Eosinophils % 20.5 H Glucose Level 124 Hematocrit 32.2 L Hemoglobin 11.2 L Lymphocytes # 0.6 L Lymphocytes % 6.1 L Mean Corpuscular Hemoglobin 31.6 Mean Corpuscular Hemoglobin Concent 34.8 Mean Corpuscular Volume 91.0 Mean Platelet Volume 9.7 Monocytes # 0.6 Monocytes % 6.2 Neutrophils # 6.4 Neutrophils % 66.5 Nucleated Red Blood Cells # 0.0 Nucleated Red Blood Cells % 0.0 Platelet Count 448 H Potassium Level 3.6 Red Blood Count 3.54 L Red Cell Distribution Width 14.4 Sodium Level 135 White Blood Count 9.7 # Medications Medications Current Medications Cyanocobalamin (Vitamin B12 Inj) 1,000 mcg Q28D IM Last administered on 00:09; Admin Dose 1,000 MCG; Start 09/05/16 at 23:30 Famotidine (Pepcid) 20 mg DAILY PO Last administered on 09/08/16 09:24; Admin Dose 20 MG; Start 09/06/16 at 09:00 Folic Acid (Folic Acid) 1 mg DAILY PO Last administered on 09/08/16 09:24; Admin Dose 1 MG; Start 09/06/16 at 09:00 Hydroxyzine Pamoate (Vistaril) 25 mg QHS PRN PO ITCHING Last administered on 09:24; Admin Dose 25 MG; Start 09/05/16 at 23:30 Ondansetron HCl (Zofran Inj) 4 mg Q6H PRN IV NAUSEA AND/OR VOMITING; Start at 23:30 Aspirin (Aspirin) 81 mg DAILY PO Last administered on 09/08/16 09:24; Admin Dose 81 MG; Start 09/06/16 at 09:00 Acetaminophen (Tylenol Tab) 650 mg Q6H PRN PO PAIN LEVEL 1-3 OR FEVER; Start at 23:30 Morphine Sulfate (morphine) 2 mg Q4H PRN IV PAIN LEVEL 7-10; Start 09/05/16 at 23:30 Enoxaparin Sodium (Lovenox) 30 mg DAILY SC Last administered on 09/08/16 09:32 ; Admin Dose 30 MG; Start 09/06/16 at 09:00 ROHAN VELÁZQUEZ MD Sep 08, 2016 11:52
--- NOTE | 2016-09-08 17:52 | PN ---
Date/Time of Note Date/Time of Note DATE: 09/08/16 TIME: 17:50 Assessment/Plan VTE Prophylaxis VTE Prophylaxis Intervention: LMWH Lines/Catheters IV Catheter Type (from Nrs): Peripheral IV Urinary Cath still in place: No Assessment/Plan Assessment/Plan 1. Headache and dizziness. CT is negative for any acute abnormality. Patient is awake, alert and oriented x3. 2. Hyperkalemia secondary to dehydration. -telemetry floor. 3. Hyponatremia. 4. Acute kidney injury. - per Dr. Vinicio Spain in nephrology consultation - IVF - Zofran for nausea and morphine p.r.n. for pain. 5. Ileostomy. 6. Hirschsprung's disease, status post multiple abdominal surgeries in the past. 7. Thrombocytosis - improving, - Continue to monitor CBC. 8. Lovenox for deep venous thrombosis prophylaxis 9. Pepcid for peptic ulcer disease prophylaxis. Further recommendations based on clinical course. Plan of care discussed with Dr. Paez. Subjective 24 Hr Interval Summary Constitutional: improved Eyes: no complaints ENT: no complaints Respiratory: no complaints Cardiovascular: no complaints Gastrointestinal: no complaints Genitourinary: no complaints Musculoskeletal: no complaints Skin: no complaints Neurologic: no complaints Endocrine: no complaints Lymphatic: no complaints Psychological: no complaints Immunologic: no complaints Exam/Review of Systems Vital Signs Vitals Vital Signs Date Time Temp Pulse Resp B/P Pulse Ox O2 Delivery O2 Flow Rate FiO2 09/08/16 16:14 98.0 89 18 106/67 99 09/06/16 15:00 Room Air Intake and Output 09/07/16 09/07/16 09/08/16 15:00 23:00 07:00 Intake Total 500 ml 200 ml Output Total 450 ml 450 ml Balance 50 ml -250 ml Exam Constitutional: alert, oriented, other Psych: nl mood/affect Head: atraumatic Eyes: EOMI, PERRL, nl sclera ENMT: nl external ears & nose Neck: non-tender Respiratory: clear to auscultation Cardiovascular: nl pulses Gastrointestinal: non-tender, other (SP ileostomy ), soft Musculoskeletal: nl extremities to inspection Extremities: normal pulses 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: nl mental status, nl speech Skin: nl turgor Lymph: nontender Results Result Diagram: 09/08/1630 09/08/16 0530 Results 24 hrs Laboratory Tests Test 09/08/16 05:30 Anion Gap 19 H Basophils # 0.0 Basophils % 0.3 Blood Urea Nitrogen 25 H Calcium Level 9.2 Carbon Dioxide Level 24 Chloride Level 96 L Creatinine 0.85 Eosinophils # 2.0 H Eosinophils % 20.5 H Glucose Level 124 Hematocrit 32.2 L Hemoglobin 11.2 L Lymphocytes # 0.6 L Lymphocytes % 6.1 L Mean Corpuscular Hemoglobin 31.6 Mean Corpuscular Hemoglobin Concent 34.8 Mean Corpuscular Volume 91.0 Mean Platelet Volume 9.7 Monocytes # 0.6 Monocytes % 6.2 Neutrophils # 6.4 Neutrophils % 66.5 Nucleated Red Blood Cells # 0.0 Nucleated Red Blood Cells % 0.0 Platelet Count 448 H Potassium Level 3.6 Red Blood Count 3.54 L Red Cell Distribution Width 14.4 Sodium Level 135 White Blood Count 9.7 # Medications Medications Current Medications Cyanocobalamin (Vitamin B12 Inj) 1,000 mcg Q28D IM Last administered on 00:09; Admin Dose 1,000 MCG; Start 09/05/16 at 23:30 Famotidine (Pepcid) 20 mg DAILY PO Last administered on 09/08/16 09:24; Admin Dose 20 MG; Start 09/06/16 at 09:00 Folic Acid (Folic Acid) 1 mg DAILY PO Last administered on 09/08/16 09:24; Admin Dose 1 MG; Start 09/06/16 at 09:00 Hydroxyzine Pamoate (Vistaril) 25 mg QHS PRN PO ITCHING Last administered on 09:24; Admin Dose 25 MG; Start 09/05/16 at 23:30 Ondansetron HCl (Zofran Inj) 4 mg Q6H PRN IV NAUSEA AND/OR VOMITING; Start at 23:30 Aspirin (Aspirin) 81 mg DAILY PO Last administered on 09/08/16 09:24; Admin Dose 81 MG; Start 09/06/16 at 09:00 Acetaminophen (Tylenol Tab) 650 mg Q6H PRN PO PAIN LEVEL 1-3 OR FEVER; Start at 23:30 Morphine Sulfate (morphine) 2 mg Q4H PRN IV PAIN LEVEL 7-10; Start 09/05/16 at 23:30 Enoxaparin Sodium (Lovenox) 30 mg DAILY SC Last administered on 09/08/16t 09:32 ; Admin Dose 30 MG; Start 09/06/16 at 09:00 DEVENDRA GOMES Sep 08, 2016 17:52
[2016-09-08] MEDS: MUPIROCIN 2% 22 GM OINT TOP SCH (21:53)
[2016-09-09] VITALS (15 sets, daily range): BP systolic 97–182; BP diastolic 59–75; PULSE 109–184; RESP 18–20
[2016-09-09 07:07] LABS: ADD SCAN DIFF NO
[2016-09-09 07:13] LABS: ABNORMAL IP MESSAGE 1; BASOPHIL # 0.1 10^3/ul (0.0-0.1); BASOPHILS % 0.3 % (0.0-2.0); EOSINOPHILS # 1.2 10^3/ul (0.0-0.5); EOSINOPHILS % 5.8 % (0.0-7.0); HEMATOCRIT 36.7 % (37.0-47.0); HEMOGLOBIN 12.7 g/dl (12.0-16.0); LYMPHOCYTES # 0.5 10^3/ul (0.8-2.9); LYMPHOCYTES % 2.7 % (15.0-51.0); MEAN CORPUSCULAR HEMOGLOBIN 31.4 pg (29.0-33.0); MEAN CORPUSCULAR HGB CONC 34.6 g/dl (32.0-37.0); MEAN CORPUSCULAR VOLUME 90.8 fl (82.0-101.0); MONOCYTE # 0.5 10^3/ul (0.3-0.9); MONOCYTES % 2.4 % (0.0-11.0); NEUTROPHIL # 17.5 10^3/ul (1.6-7.5); NEUTROPHILS % 88.4 % (39.0-77.0); PLATELET COUNT 482 10^3/UL (140-415); RED BLOOD COUNT 4.04 10^6/ul (4.20-5.40); RED CELL DISTRIBUTION WIDTH 14.3 % (11.5-14.5); WHITE BLOOD COUNT 19.8 10^3/ul (4.8-10.8)
[2016-09-09 07:36] LABS: POTASSIUM 3.9 mmol/L (3.5-5.1)
[2016-09-09 07:39] LABS: CREATININE 0.96 mg/dl (0.44-1.00)
[2016-09-09 07:40] LABS: CALCIUM 9.9 mg/dl (8.4-10.2)
[2016-09-09] MEDS: ASPIRIN 81 MG TAB PO SCH (08:35)
[2016-09-09] MEDS: FAMOTIDINE 20 MG TAB PO SCH (08:35)
[2016-09-09] MEDS: FOLIC ACID 1 MG TAB PO SCH (08:35)
[2016-09-09] MEDS: MUPIROCIN 2% 22 GM OINT TOP SCH ×2 (08:35→21:01)
[2016-09-09] MEDS: ENOXAPARIN 30 MG/0.3 ML SYG SC SCH (08:44)
--- NOTE | 2016-09-09 17:57 | RADRPT ---
PROCEDURE: XR Chest. CLINICAL INDICATION: Hyperkalemia. TECHNIQUE: Single frontal view of the chest was obtained COMPARISON: Chest x-ray 09/05/2016 09:36 p.m. FINDINGS: The soft tissues are normal. The bony elements are normal. The heart, cardiomediastinal silhouette , pulmonary vasculature and hilar structures are normal. There is a left-sided aorta. the lungs are clear better hyperinflated. This finding is unchanged. The costophrenic angles are normal. IMPRESSION: 1. Pulmonary hyperinflation with no evidence of an acute infiltrate. Similar findings are noted on July 31, 2016 chest x-ray. RPTAT:AAJJ Physician Jory Date Time Electronically viewed and signed by Wilmer Cox Physician on 09/09/2016 17:56 DEANNA/
--- NOTE | 2016-09-09 18:00 | CONS ---
Date/Time of Note Date/Time of Note DATE: 09/09/16 TIME: 17:59 Assessment/Plan Assessment/Plan Additional Assessment/Plan 1. Acute kidney injury secondary to prerenal azotemia. 2. Severe hyponatremia, likely secondary to hypovolemic hyponatremia. 3. Acute hyperkalemia secondary to acute kidney injury and moderate to severe dehydration. 4. Moderate to severe dehydration. 5. 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 PLAN: continue 1/2 NS,na 132 BP stable cr improved to normal will follow up K normal Consultation Date/Type/Reason Admit Date/Time Sep 05, 2016 at 23:14 Initial Consult Date Aug Type of Consultation: NEPHROLOGY Referring Provider: CARLOS RODRIGUEZ MD 24 HR Interval Summary Free Text/Dictation no events, Exam/Review of Systems Vital Signs Vitals Vital Signs Date Time Temp Pulse Resp B/P Pulse Ox O2 Delivery O2 Flow Rate FiO2 09/09/16 16:30 112 09/09/16 15:29 98.4 20 111/67 98 09/09/16 03:50 Room Air Intake and Output 09/08/16 09/08/16 09/09/16 15:00 23:00 07:00 Intake Total 1000 ml 980 ml Output Total 1200 ml 700 ml Balance -200 ml 280 ml Exam GENERAL: Awake, alert, in no acute distress. NECK: Supple, no JVD, no lymphadenopathy. Oral mucosa pink and moist. CHEST: Lungs clear bilaterally, no rhonchi, no wheezes. HEART: S1, S2, tachycardia, no murmur. ABDOMEN: Soft, nontender, nondistended. Right lower quadrant ileostomy is present. Results Result Diagram: 09/09/16 0555 09/09/16 0555 Results 24 hrs Laboratory Tests Test 09/09/16 05:55 Anion Gap 20 H Basophils # 0.1 Basophils % 0.3 Blood Urea Nitrogen 28 H Calcium Level 9.9 Carbon Dioxide Level 26 Chloride Level 90 L Creatinine 0.96 Eosinophils # 1.2 H Eosinophils % 5.8 Glucose Level 88 Hematocrit 36.7 L Hemoglobin 12.7 Lymphocytes # 0.5 L Lymphocytes % 2.7 L Mean Corpuscular Hemoglobin 31.4 Mean Corpuscular Hemoglobin Concent 34.6 Mean Corpuscular Volume 90.8 Mean Platelet Volume 10.0 Monocytes # 0.5 Monocytes % 2.4 Neutrophils # 17.5 H Neutrophils % 88.4 H Nucleated Red Blood Cells # 0.0 Nucleated Red Blood Cells % 0.0 Platelet Count 482 H Potassium Level 3.9 Red Blood Count 4.04 L Red Cell Distribution Width 14.3 Sodium Level 132 L White Blood Count 19.8 #H Medications Medications Current Medications Cyanocobalamin (Vitamin B12 Inj) 1,000 mcg Q28D IM Last administered on 00:09; Admin Dose 1,000 MCG; Start 09/05/16 at 23:30 Famotidine (Pepcid) 20 mg DAILY PO Last administered on 09/09/16 08:35; Admin Dose 20 MG; Start 09/06/16 at 09:00 Folic Acid (Folic Acid) 1 mg DAILY PO Last administered on 09/09/16 08:35; Admin Dose 1 MG; Start 09/06/16 at 09:00 Hydroxyzine Pamoate (Vistaril) 25 mg QHS PRN PO ITCHING Last administered on 20:05; Admin Dose 25 MG; Start 09/05/16 at 23:30 Ondansetron HCl (Zofran Inj) 4 mg Q6H PRN IV NAUSEA AND/OR VOMITING; Start at 23:30 Aspirin (Aspirin) 81 mg DAILY PO Last administered on 09/09/16 08:35; Admin Dose 81 MG; Start 09/06/16 at 09:00 Acetaminophen (Tylenol Tab) 650 mg Q6H PRN PO PAIN LEVEL 1-3 OR FEVER Last administered on 09/09/16 08:35; Admin Dose 650 MG; Start 09/05/16 at 23:30 Morphine Sulfate (morphine) 2 mg Q4H PRN IV PAIN LEVEL 7-10; Start 09/05/16 at 23:30 Enoxaparin Sodium (Lovenox) 30 mg DAILY SC Last administered on 09/09/16 08:44 ; Admin Dose 30 MG; Start 09/06/16 at 09:00 Mupirocin (Bactroban) 1 applic BID TOP Last administered on 09/09/16 08:35; Admin Dose 1 APPLIC; Start 09/08/16 at 21:00 ROHAN VELÁZQUEZ MD Sep 09, 2016 18:00
--- NOTE | 2016-09-09 18:15 | PN ---
Date/Time of Note Date/Time of Note DATE: 09/09/16 TIME: 18:12 Assessment/Plan VTE Prophylaxis VTE Prophylaxis Intervention: SCD's Lines/Catheters IV [facility] [place] [facility] Urinary Cath still in place: No Assessment/Plan Chief Complaint/Hosp Course ASSESSMENT AND PLAN: 1. Headache and dizziness. CT is negative for any acute abnormality. Patient is awake, alert and oriented x3. 2. Hyperkalemia secondary to dehydration. 3. Hyponatremia. 4. Acute kidney injury. Dr. Spain is following in nephrology consultation. Continue IV fluids. 5. Ileostomy. 6. Hirschsprung's disease, status post multiple abdominal surgeries in the past. Further recommendations based on clinical course. Plan of care discussed with Dr. Paez. Problems: Subjective 24 Hr Interval Summary Free Text/Dictation Patient was low-grade fever leukocytosis and tachycardia today in the a.m. patient denies any nausea vomiting, we will obtain a urine and blood cultures and chest x-ray. Exam/Review of Systems Vital Signs Vitals Vital Signs Date Time Temp Pulse Resp B/P Pulse Ox O2 Delivery O2 Flow Rate FiO2 09/09/16 16:30 112 09/09/16 15:29 98.4 20 111/67 98 09/09/16 03:50 Room Air Intake and Output 09/08/16 09/08/16 09/09/16 15:00 23:00 07:00 Intake Total 1000 ml 980 ml Output Total 1200 ml 700 ml Balance -200 ml 280 ml Exam GENERAL: The patient is a well-nourished female, in no acute distress. HEENT: Head is atraumatic, normocephalic. NECK: Supple. No cervical lymphadenopathy, no thyromegaly. CHEST: Lungs clear bilaterally. There are no rhonchi, wheezes or rales noted. CARDIOVASCULAR: The patient is slightly tachycardic. Normal S1, S2. No murmurs, gallops, clicks or rubs noted. ABDOMEN: Flat, soft, nondistended, nontender. Patient has a right lower quadrant ileostomy. EXTREMITIES: No edema, clubbing or cyanosis. Pulses are equal bilaterally at 2 +. SKIN: There is no rash or petechiae noted. NEUROLOGIC: Patient is awake, alert and oriented x3 Results Result Diagram: 09/09/16 0555 09/09/16 0555 Results 24 hrs Laboratory Tests Test 09/09/16 05:55 Anion Gap 20 H Basophils # 0.1 Basophils % 0.3 Blood Urea Nitrogen 28 H Calcium Level 9.9 Carbon Dioxide Level 26 Chloride Level 90 L Creatinine 0.96 Eosinophils # 1.2 H Eosinophils % 5.8 Glucose Level 88 Hematocrit 36.7 L Hemoglobin 12.7 Lymphocytes # 0.5 L Lymphocytes % 2.7 L Mean Corpuscular Hemoglobin 31.4 Mean Corpuscular Hemoglobin Concent 34.6 Mean Corpuscular Volume 90.8 Mean Platelet Volume 10.0 Monocytes # 0.5 Monocytes % 2.4 Neutrophils # 17.5 H Neutrophils % 88.4 H Nucleated Red Blood Cells # 0.0 Nucleated Red Blood Cells % 0.0 Platelet Count 482 H Potassium Level 3.9 Red Blood Count 4.04 L Red Cell Distribution Width 14.3 Sodium Level 132 L White Blood Count 19.8 #H Medications Medications Current Medications Cyanocobalamin (Vitamin B12 Inj) 1,000 mcg Q28D IM Last administered on 00:09; Admin Dose 1,000 MCG; Start 09/05/16 at 23:30 Famotidine (Pepcid) 20 mg DAILY PO Last administered on 09/09/16 08:35; Admin Dose 20 MG; Start 09/06/16 at 09:00 Folic Acid (Folic Acid) 1 mg DAILY PO Last administered on 09/09/16 08:35; Admin Dose 1 MG; Start 09/06/16 at 09:00 Hydroxyzine Pamoate (Vistaril) 25 mg QHS PRN PO ITCHING Last administered on 20:05; Admin Dose 25 MG; Start 09/05/16 at 23:30 Ondansetron HCl (Zofran Inj) 4 mg Q6H PRN IV NAUSEA AND/OR VOMITING; Start at 23:30 Aspirin (Aspirin) 81 mg DAILY PO Last administered on 09/09/16 08:35; Admin Dose 81 MG; Start 09/06/16 at 09:00 Acetaminophen (Tylenol Tab) 650 mg Q6H PRN PO PAIN LEVEL 1-3 OR FEVER Last administered on 09/09/16 08:35; Admin Dose 650 MG; Start 09/05/16 at 23:30 Morphine Sulfate (morphine) 2 mg Q4H PRN IV PAIN LEVEL 7-10; Start 09/05/16 at 23:30 Enoxaparin Sodium (Lovenox) 30 mg DAILY SC Last administered on 09/09/16 08:44 ; Admin Dose 30 MG; Start 09/06/16 at 09:00 Mupirocin (Bactroban) 1 applic BID TOP Last administered on 09/09/16 08:35; Admin Dose 1 APPLIC; Start 09/08/16 at 21:00 ROMI ESPINO Sep 09, 2016 18:15
[2016-09-09] MEDS: hydrOXYzine PAMOATE 25 MG CAP PO PRN (21:01)
[2016-09-10] VITALS (11 sets, daily range): BP systolic 90–108; BP diastolic 53–70; PULSE 124–145; RESP 18
[2016-09-10 07:14] LABS: ADD SCAN DIFF NO
[2016-09-10 07:19] LABS: ABNORMAL IP MESSAGE 1; BASOPHIL # 0.1 10^3/ul (0.0-0.1); BASOPHILS % 0.5 % (0.0-2.0); EOSINOPHILS # 2.3 10^3/ul (0.0-0.5); EOSINOPHILS % 18.3 % (0.0-7.0); HEMATOCRIT 41.7 % (37.0-47.0); HEMOGLOBIN 14.2 g/dl (12.0-16.0); LYMPHOCYTES # 0.7 10^3/ul (0.8-2.9); LYMPHOCYTES % 5.8 % (15.0-51.0); MEAN CORPUSCULAR HEMOGLOBIN 30.9 pg (29.0-33.0); MEAN CORPUSCULAR HGB CONC 34.1 g/dl (32.0-37.0); MEAN CORPUSCULAR VOLUME 90.8 fl (82.0-101.0); MEAN PLATELET VOLUME 9.2 fl (7.4-10.4); MONOCYTE # 0.5 10^3/ul (0.3-0.9); MONOCYTES % 3.7 % (0.0-11.0); NEUTROPHILS % 71.3 % (39.0-77.0); PLATELET COUNT 537 10^3/UL (140-415); RED BLOOD COUNT 4.59 10^6/ul (4.20-5.40); RED CELL DISTRIBUTION WIDTH 14.3 % (11.5-14.5); WHITE BLOOD COUNT 12.7 10^3/ul (4.8-10.8)
[2016-09-10 07:32] LABS: POTASSIUM 4.6 mmol/L (3.5-5.1)
[2016-09-10 07:34] LABS: CREATININE 1.19 mg/dl (0.44-1.00)
[2016-09-10 07:35] LABS: CALCIUM 10.4 mg/dl (8.4-10.2)
[2016-09-10] MEDS: FAMOTIDINE 20 MG TAB PO SCH (08:10)
[2016-09-10] MEDS: FOLIC ACID 1 MG TAB PO SCH (08:10)
[2016-09-10] MEDS: ASPIRIN 81 MG TAB PO SCH (08:10)
[2016-09-10] MEDS: MUPIROCIN 2% 22 GM OINT TOP SCH ×2 (08:11→21:37)
[2016-09-10] MEDS: ENOXAPARIN 30 MG/0.3 ML SYG SC SCH (08:15)
--- NOTE | 2016-09-10 09:05 | CONS ---
Date/Time of Note Date/Time of Note DATE: 09/10/16 TIME: 09:04 Assessment/Plan Assessment/Plan Additional Assessment/Plan 1. Acute kidney injury secondary to prerenal azotemia. 2. Severe hyponatremia, likely secondary to hypovolemic hyponatremia. 3. Acute hyperkalemia secondary to acute kidney injury and moderate to severe dehydration. 4. Moderate to severe dehydration. 5. 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 PLAN: Creatinine worsened today to 1.19, Na normal, will start 1/2 NS at 75 cc/hr will follow up K normal Consultation Date/Type/Reason Admit Date/Time Sep 05, 2016 at 23:14 Initial Consult Date Aug Type of Consultation: NEPHROLOGY Referring Provider: CARLOS RODRIGUEZ MD Exam/Review of Systems Vital Signs Vitals Vital Signs Date Time Temp Pulse Resp B/P Pulse Ox O2 Delivery O2 Flow Rate FiO2 09/10/16 08:40 124 09/10/16 07:11 97.5 18 100/70 99 09/09/16 03:50 Room Air Intake and Output 09/09/16 09/09/16 09/10/16 15:00 23:00 07:00 Intake Total 1200 ml 600 ml Output Total 800 ml 980 ml Balance 400 ml -380 ml Results Result Diagram: 09/10/16 0700 09/10/16 0700 Results 24 hrs Laboratory Tests Test 09/10/16 07:00 Anion Gap 23 H Basophils # 0.1 Basophils % 0.5 Blood Urea Nitrogen 35 H Calcium Level 10.4 H Carbon Dioxide Level 31 Chloride Level 87 L Creatinine 1.19 H Eosinophils # 2.3 H Eosinophils % 18.3 H Glucose Level 104 Hematocrit 41.7 Hemoglobin 14.2 Lymphocytes # 0.7 L Lymphocytes % 5.8 L Mean Corpuscular Hemoglobin 30.9 Mean Corpuscular Hemoglobin Concent 34.1 Mean Corpuscular Volume 90.8 Mean Platelet Volume 9.2 Monocytes # 0.5 Monocytes % 3.7 Neutrophils # 9.0 H Neutrophils % 71.3 Nucleated Red Blood Cells # 0.0 Nucleated Red Blood Cells % 0.0 Platelet Count 537 H Potassium Level 4.6 Red Blood Count 4.59 Red Cell Distribution Width 14.3 Sodium Level 136 White Blood Count 12.7 #H Medications Medications Current Medications Cyanocobalamin (Vitamin B12 Inj) 1,000 mcg Q28D IM Last administered on 00:09; Admin Dose 1,000 MCG; Start 09/05/16 at 23:30 Famotidine (Pepcid) 20 mg DAILY PO Last administered on 09/10/16 08:10; Admin Dose 20 MG; Start 09/06/16 at 09:00 Folic Acid (Folic Acid) 1 mg DAILY PO Last administered on 09/10/16 08:10; Admin Dose 1 MG; Start 09/06/16 at 09:00 Hydroxyzine Pamoate (Vistaril) 25 mg QHS PRN PO ITCHING Last administered on 21:01; Admin Dose 25 MG; Start 09/05/16 at 23:30 Ondansetron HCl (Zofran Inj) 4 mg Q6H PRN IV NAUSEA AND/OR VOMITING; Start at 23:30 Aspirin (Aspirin) 81 mg DAILY PO Last administered on 09/10/16 08:10; Admin Dose 81 MG; Start 09/06/16 at 09:00 Acetaminophen (Tylenol Tab) 650 mg Q6H PRN PO PAIN LEVEL 1-3 OR FEVER Last administered on 09/09/16 08:35; Admin Dose 650 MG; Start 09/05/16 at 23:30 Morphine Sulfate (morphine) 2 mg Q4H PRN IV PAIN LEVEL 7-10; Start 09/05/16 at 23:30 Enoxaparin Sodium (Lovenox) 30 mg DAILY SC Last administered on 09/10/16 08:15 ; Admin Dose 30 MG; Start 09/06/16 at 09:00 Mupirocin (Bactroban) 1 applic BID TOP Last administered on 09/10/16 08:11; Admin Dose 1 APPLIC; Start 09/08/16 at 21:00 ROHAN VELÁZQUEZ MD Sep 10, 2016 09:05
[2016-09-10] MEDS ORDERED: SODIUM CHLORIDE 0.45% 500 ML BAG IV* ONE (09:30)
[2016-09-10] MEDS: SOD CHLORIDE 0.45% 1,000 ML IV SCH ×3 (12:20→22:48)
--- NOTE | 2016-09-10 16:53 | PN ---
Date/Time of Note Date/Time of Note DATE: 09/10/16 TIME: 16:52 Assessment/Plan VTE Prophylaxis VTE Prophylaxis Intervention: SCD's Lines/Catheters IV Catheter Type (from [facility]): Peripheral IV Urinary Cath still in place: No Assessment/Plan Chief Complaint/Hosp Course ASSESSMENT AND PLAN: 1. Headache and dizziness. CT is negative for any acute abnormality. Patient is awake, alert and oriented x3. 2. Hyperkalemia secondary to dehydration. 3. Hyponatremia. 4. Acute kidney injury. Dr. Spain is following in nephrology consultation. Continue IV fluids. 5. Ileostomy. 6. 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 Further recommendations based on clinical course. Plan of care discussed with Dr. Paez. Problems: Exam/Review of Systems Vital Signs Vitals Vital Signs Date Time Temp Pulse Resp B/P Pulse Ox O2 Delivery O2 Flow Rate FiO2 09/10/16 16:20 129 09/10/16 15:45 98.3 18 98/62 99 09/09/16 03:50 Room Air Intake and Output 09/09/16 09/09/16 09/10/16 15:00 23:00 07:00 Intake Total 1200 ml 600 ml Output Total 800 ml 980 ml Balance 400 ml -380 ml Exam GENERAL: The patient is a well-nourished female, in no acute distress. HEENT: Head is atraumatic, normocephalic. NECK: Supple. No cervical lymphadenopathy, no thyromegaly. CHEST: Lungs clear bilaterally. There are no rhonchi, wheezes or rales noted. CARDIOVASCULAR: The patient is slightly tachycardic. Normal S1, S2. No murmurs, gallops, clicks or rubs noted. ABDOMEN: Flat, soft, nondistended, nontender. Patient has a right lower quadrant ileostomy. EXTREMITIES: No edema, clubbing or cyanosis. Pulses are equal bilaterally at 2 +. SKIN: There is no rash or petechiae noted. NEUROLOGIC: Patient is awake, alert and oriented x3 Results Result Diagram: 09/10/16 0700 09/10/16 0700 Results 24 hrs Laboratory Tests Test 09/10/16 07:00 Anion Gap 23 H Basophils # 0.1 Basophils % 0.5 Blood Urea Nitrogen 35 H Calcium Level 10.4 H Carbon Dioxide Level 31 Chloride Level 87 L Creatinine 1.19 H Eosinophils # 2.3 H Eosinophils % 18.3 H Glucose Level 104 Hematocrit 41.7 Hemoglobin 14.2 Lymphocytes # 0.7 L Lymphocytes % 5.8 L Mean Corpuscular Hemoglobin 30.9 Mean Corpuscular Hemoglobin Concent 34.1 Mean Corpuscular Volume 90.8 Mean Platelet Volume 9.2 Monocytes # 0.5 Monocytes % 3.7 Neutrophils # 9.0 H Neutrophils % 71.3 Nucleated Red Blood Cells # 0.0 Nucleated Red Blood Cells % 0.0 Platelet Count 537 H Potassium Level 4.6 Red Blood Count 4.59 Red Cell Distribution Width 14.3 Sodium Level 136 White Blood Count 12.7 #H Medications Medications Current Medications Cyanocobalamin (Vitamin B12 Inj) 1,000 mcg Q28D IM Last administered on 00:09; Admin Dose 1,000 MCG; Start 09/05/16 at 23:30 Famotidine (Pepcid) 20 mg DAILY PO Last administered on 09/10/16 08:10; Admin Dose 20 MG; Start 09/06/16 at 09:00 Folic Acid (Folic Acid) 1 mg DAILY PO Last administered on 09/10/16 08:10; Admin Dose 1 MG; Start 09/06/16 at 09:00 Hydroxyzine Pamoate (Vistaril) 25 mg QHS PRN PO ITCHING Last administered on 21:01; Admin Dose 25 MG; Start 09/05/16 at 23:30 Ondansetron HCl (Zofran Inj) 4 mg Q6H PRN IV NAUSEA AND/OR VOMITING; Start at 23:30 Aspirin (Aspirin) 81 mg DAILY PO Last administered on 09/10/16 08:10; Admin Dose 81 MG; Start 09/06/16 at 09:00 Acetaminophen (Tylenol Tab) 650 mg Q6H PRN PO PAIN LEVEL 1-3 OR FEVER Last administered on 09/09/16 08:35; Admin Dose 650 MG; Start 09/05/16 at 23:30 Morphine Sulfate (morphine) 2 mg Q4H PRN IV PAIN LEVEL 7-10; Start 09/05/16 at 23:30 Enoxaparin Sodium (Lovenox) 30 mg DAILY SC Last administered on 09/10/16 08:15 ; Admin Dose 30 MG; Start 09/06/16 at 09:00 Mupirocin 1 applic 1 applic BID TOP Last administered on 09/10/16 08:11; Admin Dose 1 APPLIC; Start 09/08/16 at 21:00 Sodium Chloride (1/2 NS) 1,000 ml @ 70 mls/hr [id number] IV Last administered on 09/10/16 12:20; Admin Dose 70 MLS/HR; Start 09/10/16 at 09:30 ROMI ESPINO Sep 10, 2016 16:53
[2016-09-10] MEDS: hydrOXYzine PAMOATE 25 MG CAP PO PRN (21:37)
[2016-09-11] VITALS (12 sets, daily range): BP systolic 91–112; BP diastolic 53–69; PULSE 113–129; RESP 18–20
--- NOTE | 2016-09-11 08:46 | CONS ---
Date/Time of Note Date/Time of Note DATE: 09/11/16 TIME: 08:41 Assessment/Plan Assessment/Plan Additional Assessment/Plan 1. Acute kidney injury secondary to prerenal azotemia. 2. Severe hyponatremia, likely secondary to hypovolemic hyponatremia. 3. Acute hyperkalemia secondary to acute kidney injury and moderate to severe dehydration. 4. Moderate to severe dehydration. 5. 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 PLAN: Creatinine was worsened today to 1.19, Na normal, started on 07/15 NS at 75 cc/hr - will follow up on Pending labs today will follow up K normal Consultation Date/Type/Reason Admit Date/Time Sep 05, 2016 at 23:14 Initial Consult Date Aug Type of Consultation: NEPHROLOGY Reason for Consultation acute kidney injury, hyperkalemia Referring Provider: CARLOS RODRIGUEZ MD 24 HR Interval Summary Free Text/Dictation no labs today to review, BP sytolic in 90s Exam/Review of Systems Vital Signs Vitals Vital Signs Date Time Temp Pulse Resp B/P Pulse Ox O2 Delivery O2 Flow Rate FiO2 09/11/16 08:17 128 09/11/16 07:15 97.6 18 96/53 94 09/10/16 23:39 21 09/09/16 03:50 Room Air Intake and Output 09/10/16 09/10/16 09/11/16 15:00 23:00 07:00 Intake Total 2800 ml 650 ml Output Total 500 ml 1200 ml Balance 2300 ml -550 ml Exam GENERAL: Awake, alert, in no acute distress. NECK: Supple, no JVD, no lymphadenopathy. Oral mucosa pink and moist. CHEST: Lungs clear bilaterally, no rhonchi, no wheezes. HEART: S1, S2, tachycardia, no murmur. ABDOMEN: Soft, nontender, nondistended. Right lower quadrant ileostomy is present. Results Result Diagram: 09/10/16 0700 09/10/16 0700 Medications Medications Current Medications Cyanocobalamin (Vitamin B12 Inj) 1,000 mcg Q28D IM Last administered on t 00:09; Admin Dose 1,000 MCG; Start 09/05/16 at 23:30 Famotidine (Pepcid) 20 mg DAILY PO Last administered on 09/10/16 08:10; Admin Dose 20 MG; Start 09/06/16 at 09:00 Folic Acid (Folic Acid) 1 mg DAILY PO Last administered on 09/10/16 08:10; Admin Dose 1 MG; Start 09/06/16 at 09:00 Hydroxyzine Pamoate (Vistaril) 25 mg QHS PRN PO ITCHING Last administered on 21:37; Admin Dose 25 MG; Start 09/05/16 at 23:30 Ondansetron HCl (Zofran Inj) 4 mg Q6H PRN IV NAUSEA AND/OR VOMITING; Start at 23:30 Aspirin (Aspirin) 81 mg DAILY PO Last administered on 09/10/16 08:10; Admin Dose 81 MG; Start 09/06/16 at 09:00 Acetaminophen (Tylenol Tab) 650 mg Q6H PRN PO PAIN LEVEL 1-3 OR FEVER Last administered on 09/09/16 08:35; Admin Dose 650 MG; Start 09/05/16 at 23:30 Morphine Sulfate (morphine) 2 mg Q4H PRN IV PAIN LEVEL 7-10; Start 09/05/16 at 23:30 Enoxaparin Sodium (Lovenox) 30 mg DAILY SC Last administered on 09/10/16 08:15 ; Admin Dose 30 MG; Start 09/06/16 at 09:00 Mupirocin 1 applic 1 applic BID TOP Last administered on 09/10/16 21:37; Admin Dose 1 APPLIC; Start 09/08/16 at 21:00 Sodium Chloride (1/2 NS) 1,000 ml @ 70 mls/hr [id number] IV Last administered on 09/10/16 21:37; Admin Dose 70 MLS/HR; Start 09/10/16 at 09:30 ROHAN VELÁZQUEZ MD Sep 11, 2016 08:46
[2016-09-11 08:54] LABS: ADD SCAN DIFF NO
[2016-09-11 08:58] LABS: ABNORMAL IP MESSAGE 1; BASOPHILS % 0.4 % (0.0-2.0); EOSINOPHILS # 2.5 10^3/ul (0.0-0.5); EOSINOPHILS % 25.4 % (0.0-7.0); HEMATOCRIT 40.8 % (37.0-47.0); HEMOGLOBIN 14.3 g/dl (12.0-16.0); LYMPHOCYTES # 0.8 10^3/ul (0.8-2.9); LYMPHOCYTES % 7.9 % (15.0-51.0); MEAN CORPUSCULAR HEMOGLOBIN 31.2 pg (29.0-33.0); MEAN CORPUSCULAR VOLUME 89.1 fl (82.0-101.0); MEAN PLATELET VOLUME 9.5 fl (7.4-10.4); MONOCYTE # 0.4 10^3/ul (0.3-0.9); NEUTROPHIL # 6.1 10^3/ul (1.6-7.5); NEUTROPHILS % 61.8 % (39.0-77.0); PLATELET COUNT 440 10^3/UL (140-415); RED BLOOD COUNT 4.58 10^6/ul (4.20-5.40); RED CELL DISTRIBUTION WIDTH 14.2 % (11.5-14.5); WHITE BLOOD COUNT 9.9 10^3/ul (4.8-10.8)
[2016-09-11 09:08] LABS: INR 1.01; PROTIME 13.3 Sec (12.2-14.2)
[2016-09-11 09:09] LABS: PARTIAL THROMBOPLASTIN TIME 25.2 Sec (25.0-35.0)
[2016-09-11 09:11] LABS: CREATININE 1.02 mg/dl (0.44-1.00)
[2016-09-11 09:12] LABS: CALCIUM 10.3 mg/dl (8.4-10.2)
[2016-09-11] MEDS: MUPIROCIN 2% 22 GM OINT TOP SCH ×2 (09:31→21:23)
[2016-09-11] MEDS: ASPIRIN 81 MG TAB PO SCH (09:33)
[2016-09-11] MEDS: FAMOTIDINE 20 MG TAB PO SCH (09:34)
[2016-09-11] MEDS: FOLIC ACID 1 MG TAB PO SCH (09:34)
[2016-09-11] MEDS: ENOXAPARIN 30 MG/0.3 ML SYG SC SCH (09:56)
[2016-09-11] MEDS: SOD CHLORIDE 0.45% 1,000 ML IV SCH (14:06)
--- NOTE | 2016-09-11 17:56 | PN ---
Date/Time of Note Date/Time of Note DATE: 09/11/16 TIME: 17:55 Assessment/Plan VTE Prophylaxis VTE Prophylaxis Intervention: SCD's Lines/Catheters [facility] [place] Urinary Cath still in place: No Assessment/Plan Chief Complaint/Hosp Course ASSESSMENT AND PLAN: 1. Headache and dizziness. CT is negative for any acute abnormality. Patient is awake, alert and oriented x3. 2. Hyperkalemia secondary to dehydration. 3. Hyponatremia. 4. Acute kidney injury. Dr. Spain is following in nephrology consultation. Continue IV fluids. 5. Ileostomy. 6. 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 Further recommendations based on clinical course. Plan of care discussed with Dr. Paez. Problems: Subjective 24 Hr Interval Summary Free Text/Dictation Patient continues to be tachycardic, HR 120-150, pt denies fever, N/V. Continue IVF. Exam/Review of Systems Vital Signs Vitals Vital Signs Date Time Temp Pulse Resp B/P Pulse Ox O2 Delivery O2 Flow Rate FiO2 09/11/16 16:49 116 09/11/16 15:12 98.0 18 91/57 95 09/10/16 23:39 21 09/09/16 03:50 Room Air Intake and Output 09/10/16 09/10/16 09/11/16 15:00 23:00 07:00 Intake Total 2800 ml 650 ml Output Total 500 ml 1200 ml Balance 2300 ml -550 ml Exam GENERAL: The patient is a well-nourished female, in no acute distress. HEENT: Head is atraumatic, normocephalic. NECK: Supple. No cervical lymphadenopathy, no thyromegaly. CHEST: Lungs clear bilaterally. There are no rhonchi, wheezes or rales noted. CARDIOVASCULAR: The patient is slightly tachycardic. Normal S1, S2. No murmurs, gallops, clicks or rubs noted. ABDOMEN: Flat, soft, nondistended, nontender. Patient has a right lower quadrant ileostomy. EXTREMITIES: No edema, clubbing or cyanosis. Pulses are equal bilaterally at 2 +. SKIN: There is no rash or petechiae noted. NEUROLOGIC: Patient is awake, alert and oriented x3 Results Result Diagram: 09/11/16 0850 09/11/16 0850 Results 24 hrs Laboratory Tests Test 09/11/16 08:50 Activated Partial Thromboplast Time 25.2 Anion Gap 23 H Basophils # 0.0 Basophils % 0.4 Blood Urea Nitrogen 33 H Calcium Level 10.3 H Carbon Dioxide Level 24 Chloride Level 93 L Creatinine 1.02 H Eosinophils # 2.5 H Eosinophils % 25.4 H Glucose Level 109 Hematocrit 40.8 Hemoglobin 14.3 INR International Normalized Ratio 1.01 Lymphocytes # 0.8 Lymphocytes % 7.9 L Magnesium Level 1.2 L Mean Corpuscular Hemoglobin 31.2 Mean Corpuscular Hemoglobin Concent 35.0 Mean Corpuscular Volume 89.1 Mean Platelet Volume 9.5 Monocytes # 0.4 Monocytes % 4.0 Neutrophils # 6.1 Neutrophils % 61.8 Nucleated Red Blood Cells # 0.0 Nucleated Red Blood Cells % 0.0 Platelet Count 440 H Potassium Level 4.0 Prothrombin Time 13.3 Prothrombin Time Ratio 1.0 Red Blood Count 4.58 Red Cell Distribution Width 14.2 Sodium Level 136 White Blood Count 9.9 # Medications Medications Current Medications Cyanocobalamin (Vitamin B12 Inj) 1,000 mcg Q28D IM Last administered on 00:09; Admin Dose 1,000 MCG; Start 09/05/16 at 23:30 Famotidine (Pepcid) 20 mg DAILY PO Last administered on 09/11/16 09:34; Admin Dose 20 MG; Start 09/06/16 at 09:00 Folic Acid (Folic Acid) 1 mg DAILY PO Last administered on 09/11/16 09:34; Admin Dose 1 MG; Start 09/06/16 at 09:00 Hydroxyzine Pamoate (Vistaril) 25 mg QHS PRN PO ITCHING Last administered on 21:37; Admin Dose 25 MG; Start 09/05/16 at 23:30 Ondansetron HCl (Zofran Inj) 4 mg Q6H PRN IV NAUSEA AND/OR VOMITING; Start at 23:30 Aspirin (Aspirin) 81 mg DAILY PO Last administered on 09/11/16 09:33; Admin Dose 81 MG; Start 09/06/16 at 09:00 Acetaminophen (Tylenol Tab) 650 mg Q6H PRN PO PAIN LEVEL 1-3 OR FEVER Last administered on 09/09/16 08:35; Admin Dose 650 MG; Start 09/05/16 at 23:30 Morphine Sulfate (morphine) 2 mg Q4H PRN IV PAIN LEVEL 7-10; Start 09/05/16 at 23:30 Enoxaparin Sodium (Lovenox) 30 mg DAILY SC Last administered on 09/11/16 09:56 ; Admin Dose 30 MG; Start 09/06/16 at 09:00 Mupirocin 1 applic 1 applic BID TOP Last administered on 09/11/16 09:31; Admin Dose 1 APPLIC; Start 09/08/16 at 21:00 Sodium Chloride (1/2 NS) 1,000 ml @ 70 mls/hr [id number] IV Last administered on 09/10/16 21:37; Admin Dose 70 MLS/HR; Start 09/10/16 at 09:30 ROMI ESPINO Sep 11, 2016 17:55
[2016-09-11] MEDS: hydrOXYzine PAMOATE 25 MG CAP PO PRN (21:23)
[2016-09-12] VITALS (12 sets, daily range): BP systolic 93–114; BP diastolic 55–73; PULSE 102–136; RESP 16–20
[2016-09-12] MEDS: SOD CHLORIDE 0.45% 1,000 ML IV SCH ×2 (05:22→18:42)
[2016-09-12 06:57] LABS: ADD SCAN DIFF NO
[2016-09-12 07:02] LABS: BASOPHIL # 0.1 10^3/ul (0.0-0.1); BASOPHILS % 0.7 % (0.0-2.0); EOSINOPHILS # 1.9 10^3/ul (0.0-0.5); EOSINOPHILS % 26.9 % (0.0-7.0); HEMATOCRIT 36.4 % (37.0-47.0); HEMOGLOBIN 12.9 g/dl (12.0-16.0); LYMPHOCYTES # 0.8 10^3/ul (0.8-2.9); LYMPHOCYTES % 10.7 % (15.0-51.0); MEAN CORPUSCULAR HEMOGLOBIN 31.5 pg (29.0-33.0); MEAN CORPUSCULAR HGB CONC 35.4 g/dl (32.0-37.0); MEAN PLATELET VOLUME 9.6 fl (7.4-10.4); MONOCYTE # 0.4 10^3/ul (0.3-0.9); MONOCYTES % 5.8 % (0.0-11.0); NEUTROPHIL # 3.9 10^3/ul (1.6-7.5); NEUTROPHILS % 55.2 % (39.0-77.0); RED BLOOD COUNT 4.09 10^6/ul (4.20-5.40); RED CELL DISTRIBUTION WIDTH 13.8 % (11.5-14.5); WHITE BLOOD COUNT 7.1 10^3/ul (4.8-10.8)
[2016-09-12 07:08] LABS: POTASSIUM 4.4 mmol/L (3.5-5.1)
[2016-09-12 07:10] LABS: CREATININE 1.05 mg/dl (0.44-1.00)
[2016-09-12 07:11] LABS: CALCIUM 9.9 mg/dl (8.4-10.2)
[2016-09-12 07:26] LABS: PLATELET COUNT 585 10^3/UL (140-415)
--- NOTE | 2016-09-12 08:48 | CONS ---
Date/Time of Note Date/Time of Note DATE: 09/12/16 TIME: 08:46 Assessment/Plan Assessment/Plan Additional Assessment/Plan 1. Acute kidney injury secondary to prerenal azotemia. 2. Severe hyponatremia, likely secondary to hypovolemic hyponatremia. 3. Acute hyperkalemia secondary to acute kidney injury and moderate to severe dehydration. 4. Moderate to severe dehydration. 5. 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 PLAN: Creatinine 1.05 Na normal, continue 1/2 NS at 75 cc/hr will follow up K normal Consultation Date/Type/Reason Admit Date/Time Sep 05, 2016 at 23:14 Initial Consult Date Aug Type of Consultation: NEPHROLOGY Reason for Consultation acute hyperkalemia, MELBA, Referring Provider: CARLOS RODRIGUEZ MD 24 HR Interval Summary Free Text/Dictation pt stable,afebrile, Cr normal, K stable Exam/Review of Systems Vital Signs Vitals Vital Signs Date Time Temp Pulse Resp B/P Pulse Ox O2 Delivery O2 Flow Rate FiO2 09/12/16 07:13 98.4 110 20 102/63 100 09/10/16 23:39 21 09/09/16 03:50 Room Air Intake and Output 09/11/16 09/11/16 09/12/16 15:00 23:00 07:00 Intake Total 1550 ml Output Total 1050 ml Balance 500 ml Exam GENERAL: Awake, alert, in no acute distress. NECK: Supple, no JVD, no lymphadenopathy. Oral mucosa pink and moist. CHEST: Lungs clear bilaterally, no rhonchi, no wheezes. HEART: S1, S2, tachycardia, no murmur. ABDOMEN: Soft, nontender, nondistended. Right lower quadrant ileostomy is present. Results Result Diagram: 09/12/16 0555 09/12/16 0555 Results 24 hrs Laboratory Tests Test 09/11/16 08:50 09/12/16 05:55 Activated Partial Thromboplast Time 25.2 Anion Gap 23 H 20 H Basophils # 0.0 0.1 Basophils % 0.4 0.7 Blood Urea Nitrogen 33 H 34 H Calcium Level 10.3 H 9.9 Carbon Dioxide Level 24 25 Chloride Level 93 L 94 L Creatinine 1.02 H 1.05 H Eosinophils # 2.5 H 1.9 H Eosinophils % 25.4 H 26.9 H Glucose Level 109 101 Hematocrit 40.8 36.4 L Hemoglobin 14.3 12.9 INR International Normalized Ratio 1.01 Lymphocytes # 0.8 0.8 Lymphocytes % 7.9 L 10.7 L Magnesium Level 1.2 L Mean Corpuscular Hemoglobin 31.2 31.5 Mean Corpuscular Hemoglobin Concent 35.0 35.4 Mean Corpuscular Volume 89.1 89.0 Mean Platelet Volume 9.5 9.6 Monocytes # 0.4 0.4 Monocytes % 4.0 5.8 Neutrophils # 6.1 3.9 Neutrophils % 61.8 55.2 Nucleated Red Blood Cells # 0.0 0.0 Nucleated Red Blood Cells % 0.0 0.0 Platelet Count 440 H 585 #H Potassium Level 4.0 4.4 Prothrombin Time 13.3 Prothrombin Time Ratio 1.0 Red Blood Count 4.58 4.09 L Red Cell Distribution Width 14.2 13.8 Sodium Level 136 135 White Blood Count 9.9 # 7.1 # Medications Medications Current Medications Cyanocobalamin (Vitamin B12 Inj) 1,000 mcg Q28D IM Last administered on 00:09; Admin Dose 1,000 MCG; Start 09/05/16 at 23:30 Famotidine (Pepcid) 20 mg DAILY PO Last administered on 09/11/16 09:34; Admin Dose 20 MG; Start 09/06/16 at 09:00 Folic Acid (Folic Acid) 1 mg DAILY PO Last administered on 09/11/16 09:34; Admin Dose 1 MG; Start 09/06/16 at 09:00 Hydroxyzine Pamoate (Vistaril) 25 mg QHS PRN PO ITCHING Last administered on 21:23; Admin Dose 25 MG; Start 09/05/16 at 23:30 Ondansetron HCl (Zofran Inj) 4 mg Q6H PRN IV NAUSEA AND/OR VOMITING; Start at 23:30 Aspirin (Aspirin) 81 mg DAILY PO Last administered on 09/11/16 09:33; Admin Dose 81 MG; Start 09/06/16 at 09:00 Acetaminophen (Tylenol Tab) 650 mg Q6H PRN PO PAIN LEVEL 1-3 OR FEVER Last administered on 09/09/16 08:35; Admin Dose 650 MG; Start 09/05/16 at 23:30 Morphine Sulfate (morphine) 2 mg Q4H PRN IV PAIN LEVEL 7-10; Start 09/05/16 at 23:30 Enoxaparin Sodium (Lovenox) 30 mg DAILY SC Last administered on 09/11/16 09:56 ; Admin Dose 30 MG; Start 09/06/16 at 09:00 Mupirocin 1 applic 1 applic BID TOP Last administered on 09/11/16 21:23; Admin Dose 1 APPLIC; Start 09/08/16 at 21:00 Sodium Chloride (1/2 NS) 1,000 ml @ 70 mls/hr [id number] IV Last administered on 09/12/16 05:22; Admin Dose 70 MLS/HR; Start 09/10/16 at 09:30 ROHAN VELÁZQUEZ MD Sep 12, 2016 08:48
[2016-09-12] MEDS: hydrOXYzine PAMOATE 25 MG CAP PO PRN ×2 (08:56→22:17)
[2016-09-12] MEDS: FOLIC ACID 1 MG TAB PO SCH (08:56)
[2016-09-12] MEDS: FAMOTIDINE 20 MG TAB PO SCH (08:56)
[2016-09-12] MEDS: MUPIROCIN 2% 22 GM OINT TOP SCH ×2 (08:57→22:17)
[2016-09-12] MEDS: ASPIRIN 81 MG TAB PO SCH (08:57)
[2016-09-12] MEDS: ENOXAPARIN 30 MG/0.3 ML SYG SC SCH (09:06)
--- NOTE | 2016-09-12 15:52 | PN ---
Date/Time of Note Date/Time of Note DATE: 09/12/16 TIME: 15:51 Assessment/Plan Lines/Catheters [facility] Peripheral IV Urinary Cath still in place: No Assessment/Plan Assessment/Plan 1. Headache and dizziness. CT is negative for any acute abnormality. Patient is awake, alert and oriented x3. 2. Hyperkalemia secondary to dehydration. 3. Hyponatremia. 4. Acute kidney injury. Dr. Spain is following in nephrology consultation. Continue IV fluids. 5. Ileostomy. 6. 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 Further recommendations based on clinical course. Plan of care discussed with Dr. Paez. Subjective 24 Hr Interval Summary Constitutional: improved Exam/Review of Systems Vital Signs Vitals Vital Signs Date Time Temp Pulse Resp B/P Pulse Ox O2 Delivery O2 Flow Rate FiO2 09/12/16 14:55 98.7 122 20 93/63 100 09/10/16 23:39 21 09/09/16 03:50 Room Air Intake and Output 09/11/16 09/11/16 09/12/16 15:00 23:00 07:00 Intake Total 1550 ml Output Total 1050 ml Balance 500 ml Results Result Diagram: 09/12/16 0555 09/12/16 0555 Results 24 hrs Laboratory Tests Test 09/12/16 05:55 Anion Gap 20 H Basophils # 0.1 Basophils % 0.7 Blood Urea Nitrogen 34 H Calcium Level 9.9 Carbon Dioxide Level 25 Chloride Level 94 L Creatinine 1.05 H Eosinophils # 1.9 H Eosinophils % 26.9 H Glucose Level 101 Hematocrit 36.4 L Hemoglobin 12.9 Lymphocytes # 0.8 Lymphocytes % 10.7 L Mean Corpuscular Hemoglobin 31.5 Mean Corpuscular Hemoglobin Concent 35.4 Mean Corpuscular Volume 89.0 Mean Platelet Volume 9.6 Monocytes # 0.4 Monocytes % 5.8 Neutrophils # 3.9 Neutrophils % 55.2 Nucleated Red Blood Cells # 0.0 Nucleated Red Blood Cells % 0.0 Platelet Count 585 #H Potassium Level 4.4 Red Blood Count 4.09 L Red Cell Distribution Width 13.8 Sodium Level 135 White Blood Count 7.1 # Medications Medications Current Medications Cyanocobalamin (Vitamin B12 Inj) 1,000 mcg Q28D IM Last administered on 00:09; Admin Dose 1,000 MCG; Start 09/05/16 at 23:30 Famotidine (Pepcid) 20 mg DAILY PO Last administered on 09/12/16 08:56; Admin Dose 20 MG; Start 09/06/16 at 09:00 Folic Acid (Folic Acid) 1 mg DAILY PO Last administered on 09/12/16 08:56; Admin Dose 1 MG; Start 09/06/16 at 09:00 Hydroxyzine Pamoate (Vistaril) 25 mg QHS PRN PO ITCHING Last administered on 08:56; Admin Dose 25 MG; Start 09/05/16 at 23:30 Ondansetron HCl (Zofran Inj) 4 mg Q6H PRN IV NAUSEA AND/OR VOMITING; Start at 23:30 Aspirin (Aspirin) 81 mg DAILY PO Last administered on 09/12/16 08:57; Admin Dose 81 MG; Start 09/06/16 at 09:00 Acetaminophen (Tylenol Tab) 650 mg Q6H PRN PO PAIN LEVEL 1-3 OR FEVER Last administered on 09/09/16 08:35; Admin Dose 650 MG; Start 09/05/16 at 23:30 Morphine Sulfate (morphine) 2 mg Q4H PRN IV PAIN LEVEL 7-10; Start 09/05/16 at 23:30 Enoxaparin Sodium (Lovenox) 30 mg DAILY SC Last administered on 09/12/16 09:06 ; Admin Dose 30 MG; Start 09/06/16 at 09:00 Mupirocin 1 applic 1 applic BID TOP Last administered on 09/12/16 08:57; Admin Dose 1 APPLIC; Start 09/08/16 at 21:00 Sodium Chloride (1/2 NS) 1,000 ml @ 70 mls/hr [id number] IV Last administered on 09/12/16 05:22; Admin Dose 70 MLS/HR; Start 09/10/16 at 09:30 DEVENDRA GOMES Sep 12, 2016 15:51
[2016-09-12] MEDS: DOXYCYCLINE 100 MG TAB PO SCH (21:33)
[2016-09-13] VITALS (10 sets, daily range): BP systolic 96–147; BP diastolic 60–68; PULSE 99–132; RESP 18–20
[2016-09-13 06:55] LABS: ADD SCAN DIFF NO
[2016-09-13 06:58] LABS: BASOPHILS % 0.5 % (0.0-2.0); EOSINOPHILS # 1.5 10^3/ul (0.0-0.5); EOSINOPHILS % 19.8 % (0.0-7.0); HEMATOCRIT 38.8 % (37.0-47.0); HEMOGLOBIN 13.2 g/dl (12.0-16.0); LYMPHOCYTES # 0.9 10^3/ul (0.8-2.9); LYMPHOCYTES % 11.7 % (15.0-51.0); MEAN CORPUSCULAR HEMOGLOBIN 31.1 pg (29.0-33.0); MEAN CORPUSCULAR VOLUME 91.5 fl (82.0-101.0); MEAN PLATELET VOLUME 9.3 fl (7.4-10.4); MONOCYTE # 0.4 10^3/ul (0.3-0.9); MONOCYTES % 5.2 % (0.0-11.0); NEUTROPHIL # 4.7 10^3/ul (1.6-7.5); NEUTROPHILS % 61.9 % (39.0-77.0); PLATELET COUNT 595 10^3/UL (140-415); RED BLOOD COUNT 4.24 10^6/ul (4.20-5.40); RED CELL DISTRIBUTION WIDTH 14.2 % (11.5-14.5); WHITE BLOOD COUNT 7.6 10^3/ul (4.8-10.8)
[2016-09-13 07:19] LABS: POTASSIUM 4.2 mmol/L (3.5-5.1)
[2016-09-13 07:21] LABS: CREATININE 0.98 mg/dl (0.44-1.00)
[2016-09-13 07:22] LABS: CALCIUM 10.1 mg/dl (8.4-10.2)
[2016-09-13] MEDS: SOD CHLORIDE 0.45% 1,000 ML IV SCH (09:00)
[2016-09-13] MEDS: FOLIC ACID 1 MG TAB PO SCH (09:02)
[2016-09-13] MEDS: ASPIRIN 81 MG TAB PO SCH (09:02)
[2016-09-13] MEDS: DOXYCYCLINE 100 MG TAB PO SCH ×2 (09:02→20:42)
[2016-09-13] MEDS: FAMOTIDINE 20 MG TAB PO SCH (09:02)
[2016-09-13] MEDS: ENOXAPARIN 30 MG/0.3 ML SYG SC SCH (09:08)
[2016-09-13] MEDS: MUPIROCIN 2% 22 GM OINT TOP SCH ×2 (09:28→22:13)
--- NOTE | 2016-09-13 15:48 | CONS ---
Date/Time of Note Date/Time of Note DATE: 09/13/16 TIME: 15:47 Assessment/Plan Assessment/Plan Additional Assessment/Plan 1. Acute kidney injury secondary to prerenal azotemia. 2. Severe hyponatremia, likely secondary to hypovolemic hyponatremia. 3. Acute hyperkalemia secondary to acute kidney injury and moderate to severe dehydration. 4. Moderate to severe dehydration. 5. 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 PLAN: Creatinine 1.05 Na normal, d/c IVF if pt is eating ok will follow up K normal Consultation Date/Type/Reason Admit Date/Time Sep 05, 2016 at 23:14 Initial Consult Date Aug Type of Consultation: NEPHROLOGY Reason for Consultation acute kidney Injury, Hyperkalemia Referring Provider: CARLOS RODRIGUEZ MD 24 HR Interval Summary Free Text/Dictation Creatinine improved to normal today, BP stable Exam/Review of Systems Vital Signs Vitals Vital Signs Date Time Temp Pulse Resp B/P Pulse Ox O2 Delivery O2 Flow Rate FiO2 09/13/16 15:16 98.4 121 18 96/63 98 09/10/16 23:39 21 Intake and Output 09/12/16 09/12/16 09/13/16 15:00 23:00 07:00 Intake Total 650 ml 2200 ml 480 ml Output Total 1000 ml 1000 ml 400 ml Balance -350 ml 1200 ml 80 ml Exam GENERAL: Awake, alert, in no acute distress. NECK: Supple, no JVD, no lymphadenopathy. Oral mucosa pink and moist. CHEST: Lungs clear bilaterally, no rhonchi, no wheezes. HEART: S1, S2, tachycardia, no murmur. ABDOMEN: Soft, nontender, nondistended. Right lower quadrant ileostomy is present. Results Result Diagram: 09/13/16 0610 09/13/16 0610 Results 24 hrs Laboratory Tests Test 09/13/16 06:10 Anion Gap 22 H Basophils # 0.0 Basophils % 0.5 Blood Urea Nitrogen 35 H Calcium Level 10.1 Carbon Dioxide Level 27 Chloride Level 96 L Creatinine 0.98 Eosinophils # 1.5 H Eosinophils % 19.8 H Glucose Level 96 Hematocrit 38.8 Hemoglobin 13.2 Lymphocytes # 0.9 Lymphocytes % 11.7 L Mean Corpuscular Hemoglobin 31.1 Mean Corpuscular Hemoglobin Concent 34.0 Mean Corpuscular Volume 91.5 Mean Platelet Volume 9.3 Monocytes # 0.4 Monocytes % 5.2 Neutrophils # 4.7 Neutrophils % 61.9 Nucleated Red Blood Cells # 0.0 Nucleated Red Blood Cells % 0.0 Platelet Count 595 H Potassium Level 4.2 Red Blood Count 4.24 Red Cell Distribution Width 14.2 Sodium Level 141 White Blood Count 7.6 Medications Medications Current Medications Cyanocobalamin (Vitamin B12 Inj) 1,000 mcg Q28D IM Last administered on 00:09; Admin Dose 1,000 MCG; Start 09/05/16 at 23:30 Famotidine (Pepcid) 20 mg DAILY PO Last administered on 09/13/16 09:02; Admin Dose 20 MG; Start 09/06/16 at 09:00 Folic Acid (Folic Acid) 1 mg DAILY PO Last administered on 09/13/16 09:02; Admin Dose 1 MG; Start 09/06/16 at 09:00 Hydroxyzine Pamoate (Vistaril) 25 mg QHS PRN PO ITCHING Last administered on 22:17; Admin Dose 25 MG; Start 09/05/16 at 23:30 Ondansetron HCl (Zofran Inj) 4 mg Q6H PRN IV NAUSEA AND/OR VOMITING; Start at 23:30 Aspirin (Aspirin) 81 mg DAILY PO Last administered on 09/13/16 09:02; Admin Dose 81 MG; Start 09/06/16 at 09:00 Acetaminophen (Tylenol Tab) 650 mg Q6H PRN PO PAIN LEVEL 1-3 OR FEVER Last administered on 09/09/16 08:35; Admin Dose 650 MG; Start 09/05/16 at 23:30 Morphine Sulfate (morphine) 2 mg Q4H PRN IV PAIN LEVEL 7-10; Start 09/05/16 at 23:30 Enoxaparin Sodium (Lovenox) 30 mg DAILY SC Last administered on 09/13/16 09:08 ; Admin Dose 30 MG; Start 09/06/16 at 09:00 Mupirocin 1 applic 1 applic BID TOP Last administered on 09/13/16 09:28; Admin Dose 1 APPLIC; Start 09/08/16 at 21:00 Sodium Chloride (1/2 NS) 1,000 ml @ 70 mls/hr [id number] IV Last administered on 09/12/16 05:22; Admin Dose 70 MLS/HR; Start 09/10/16 at 09:30 Doxycycline Hyclate (Vibramycin) 100 mg BID PO Last administered on 09/13/16 09 :02; Admin Dose 100 MG; Start 09/12/16 at 21:00; Stop 09/19/16 at 09:01 ROHAN VELÁZQUEZ MD Sep 13, 2016 15:48
--- NOTE | 2016-09-13 16:15 | PN ---
Date/Time of Note Date/Time of Note DATE: 09/13/16 TIME: 16:11 Assessment/Plan VTE Prophylaxis VTE Prophylaxis Intervention: SCD's Lines/Catheters IV Catheter Type (from [facility]): Peripheral IV Urinary Cath still in place: No Assessment/Plan Chief Complaint/Hosp Course ASSESSMENT AND PLAN: 1. Headache and dizziness. CT is negative for any acute abnormality. Patient is awake, alert and oriented x3. 2. Hyperkalemia secondary to dehydration. 3. Hyponatremia. 4. Acute kidney injury. Dr. Spain is following in nephrology consultation. Continue IV fluids. 5. Ileostomy. 6. 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 Patient is continues on IV fluids, will DC IV fluids today, will check electrolytes and magnesium tomorrow, if stable anticipate to discharge patient home Further recommendations based on clinical course. Plan of care discussed with Dr. Paez. Problems: Subjective 24 Hr Interval Summary Free Text/Dictation Patient denies any nausea vomiting, continues on IV fluids, tolerates diet well. Exam/Review of Systems Vital Signs Vitals Vital Signs Date Time Temp Pulse Resp B/P Pulse Ox O2 Delivery O2 Flow Rate FiO2 09/13/16 15:16 98.4 121 18 96/63 98 09/10/16 23:39 21 Intake and Output 09/12/16 09/12/16 09/13/16 15:00 23:00 07:00 Intake Total 650 ml 2200 ml 480 ml Output Total 1000 ml 1000 ml 400 ml Balance -350 ml 1200 ml 80 ml Exam GENERAL: The patient is a well-nourished female, in no acute distress. HEENT: Head is atraumatic, normocephalic. NECK: Supple. No cervical lymphadenopathy, no thyromegaly. CHEST: Lungs clear bilaterally. There are no rhonchi, wheezes or rales noted. CARDIOVASCULAR: The patient is slightly tachycardic. Normal S1, S2. No murmurs, gallops, clicks or rubs noted. ABDOMEN: Flat, soft, nondistended, nontender. Patient has a right lower quadrant ileostomy. EXTREMITIES: No edema, clubbing or cyanosis. Pulses are equal bilaterally at 2 +. SKIN: There is no rash or petechiae noted. NEUROLOGIC: Patient is awake, alert and oriented x3 Results Result Diagram: 09/13/16 0610 09/13/16 0610 Results 24 hrs Laboratory Tests Test 09/13/16 06:10 Anion Gap 22 H Basophils # 0.0 Basophils % 0.5 Blood Urea Nitrogen 35 H Calcium Level 10.1 Carbon Dioxide Level 27 Chloride Level 96 L Creatinine 0.98 Eosinophils # 1.5 H Eosinophils % 19.8 H Glucose Level 96 Hematocrit 38.8 Hemoglobin 13.2 Lymphocytes # 0.9 Lymphocytes % 11.7 L Mean Corpuscular Hemoglobin 31.1 Mean Corpuscular Hemoglobin Concent 34.0 Mean Corpuscular Volume 91.5 Mean Platelet Volume 9.3 Monocytes # 0.4 Monocytes % 5.2 Neutrophils # 4.7 Neutrophils % 61.9 Nucleated Red Blood Cells # 0.0 Nucleated Red Blood Cells % 0.0 Platelet Count 595 H Potassium Level 4.2 Red Blood Count 4.24 Red Cell Distribution Width 14.2 Sodium Level 141 White Blood Count 7.6 Medications Medications Current Medications Cyanocobalamin (Vitamin B12 Inj) 1,000 mcg Q28D IM Last administered on 00:09; Admin Dose 1,000 MCG; Start 09/05/16 at 23:30 Famotidine (Pepcid) 20 mg DAILY PO Last administered on 09/13/16 09:02; Admin Dose 20 MG; Start 09/06/16 at 09:00 Folic Acid (Folic Acid) 1 mg DAILY PO Last administered on 09/13/16 09:02; Admin Dose 1 MG; Start 09/06/16 at 09:00 Hydroxyzine Pamoate (Vistaril) 25 mg QHS PRN PO ITCHING Last administered on 22:17; Admin Dose 25 MG; Start 09/05/16 at 23:30 Ondansetron HCl (Zofran Inj) 4 mg Q6H PRN IV NAUSEA AND/OR VOMITING; Start at 23:30 Aspirin (Aspirin) 81 mg DAILY PO Last administered on 09/13/16 09:02; Admin Dose 81 MG; Start 09/06/16 at 09:00 Acetaminophen (Tylenol Tab) 650 mg Q6H PRN PO PAIN LEVEL 1-3 OR FEVER Last administered on 09/09/16 08:35; Admin Dose 650 MG; Start 09/05/16 at 23:30 Morphine Sulfate (morphine) 2 mg Q4H PRN IV PAIN LEVEL 7-10; Start 09/05/16 at 23:30 Enoxaparin Sodium (Lovenox) 30 mg DAILY SC Last administered on 09/13/16 09:08 ; Admin Dose 30 MG; Start 09/06/16 at 09:00 Mupirocin 1 applic 1 applic BID TOP Last administered on 09/13/16 09:28; Admin Dose 1 APPLIC; Start 09/08/16 at 21:00 Sodium Chloride (1/2 NS) 1,000 ml @ 70 mls/hr [id number] IV Last administered on 09/12/16 05:22; Admin Dose 70 MLS/HR; Start 09/10/16 at 09:30 Doxycycline Hyclate (Vibramycin) 100 mg BID PO Last administered on 09/13/16 09 :02; Admin Dose 100 MG; Start 09/12/16 at 21:00; Stop 09/19/16 at 09:01 ROMI ESPINO Sep 13, 2016 16:15
[2016-09-13] MEDS: morphine 2 MG INJ IV PRN (20:42)
[2016-09-13] MEDS: hydrOXYzine PAMOATE 25 MG CAP PO PRN (22:14)
[2016-09-14] VITALS (10 sets, daily range): BP systolic 98–123; BP diastolic 55–71; PULSE 111–141; RESP 17–20
[2016-09-14] MEDS: morphine 2 MG INJ IV PRN ×2 (00:31→20:38)
[2016-09-14] MEDS: ASPIRIN 81 MG TAB PO SCH (08:26)
[2016-09-14] MEDS: DOXYCYCLINE 100 MG TAB PO SCH ×2 (08:26→20:21)
[2016-09-14] MEDS: FOLIC ACID 1 MG TAB PO SCH (08:26)
[2016-09-14] MEDS: FAMOTIDINE 20 MG TAB PO SCH ×2 (08:26→20:26)
[2016-09-14] MEDS: MUPIROCIN 2% 22 GM OINT TOP SCH ×2 (08:27→20:39)
[2016-09-14] MEDS: ENOXAPARIN 30 MG/0.3 ML SYG SC SCH (08:30)
[2016-09-14 09:18] LABS: CALCIUM 10.1 mg/dl (8.4-10.2); CREATININE 1.02 mg/dl (0.44-1.00); POTASSIUM 4.8 mmol/L (3.5-5.1)
[2016-09-14 09:20] LABS: MAGNESIUM 0.8 mg/dl (1.7-2.5)
[2016-09-14] MEDS ORDERED: MAGNESIUM SULFATE 2 GM/50 ML 50 ML IVPB ONE (09:30)
--- NOTE | 2016-09-14 10:37 | PN ---
Date/Time of Note Date/Time of Note DATE: 09/14/16 TIME: 10:37 Assessment/Plan VTE Prophylaxis VTE Prophylaxis Intervention: other Lines/Catheters IV Catheter Type (from [facility] [place]): Saline Lock Urinary Cath still in place: No Assessment/Plan Chief Complaint/Hosp Course 1. Headache and dizziness. CT is negative for any acute abnormality. Patient is awake, alert and oriented x3. 2. Hyperkalemia secondary to dehydration. 3. Hyponatremia. 4. Acute kidney injury. Dr. Spain is following in nephrology consultation. Continue IV fluids. 5. Ileostomy. 6. 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 Problems: Subjective 24 Hr Interval Summary Free Text/Dictation Patient has no complaints Exam/Review of Systems Vital Signs Vitals Vital Signs Date Time Temp Pulse Resp B/P Pulse Ox O2 Delivery O2 Flow Rate FiO2 09/14/16 08:11 133 09/14/16 07:55 98.3 20 123/58 95 09/10/16 23:39 21 Intake and Output 09/13/16 09/13/16 09/14/16 15:00 23:00 07:00 Intake Total 1200 ml Balance 1200 ml Exam Constitutional: well developed Head: atraumatic, normocephalic Neck: supple Respiratory: clear to auscultation Cardiovascular: regular rate and rhythm Gastrointestinal: non-tender, soft Results Result Diagram: 09/13/16 0610 09/14/16 0608 Results 24 hrs Laboratory Tests Test 09/14/16 06:08 Anion Gap 28 H Blood Urea Nitrogen 41 H Calcium Level 10.1 Carbon Dioxide Level 20 L Chloride Level 95 L Creatinine 1.02 H Glucose Level 122 Magnesium Level 0.8 *L Potassium Level 4.8 Sodium Level 138 Medications Medications Current Medications Cyanocobalamin (Vitamin B12 Inj) 1,000 mcg Q28D IM Last administered on 00:09; Admin Dose 1,000 MCG; Start 09/05/16 at 23:30 Famotidine (Pepcid) 20 mg DAILY PO Last administered on 09/14/16 08:26; Admin Dose 20 MG; Start 09/06/16 at 09:00 Folic Acid (Folic Acid) 1 mg DAILY PO Last administered on 09/14/16 08:26; Admin Dose 1 MG; Start 09/06/16 at 09:00 Hydroxyzine Pamoate (Vistaril) 25 mg QHS PRN PO ITCHING Last administered on 22:14; Admin Dose 25 MG; Start 09/05/16 at 23:30 Ondansetron HCl (Zofran Inj) 4 mg Q6H PRN IV NAUSEA AND/OR VOMITING; Start at 23:30 Aspirin (Aspirin) 81 mg DAILY PO Last administered on 09/14/16 08:26; Admin Dose 81 MG; Start 09/06/16 at 09:00 Acetaminophen (Tylenol Tab) 650 mg Q6H PRN PO PAIN LEVEL 1-3 OR FEVER Last administered on 09/09/16 08:35; Admin Dose 650 MG; Start 09/05/16 at 23:30 Morphine Sulfate (morphine) 2 mg Q4H PRN IV PAIN LEVEL 7-10 Last administered on 09/14/16 00:31; Admin Dose 2 MG; Start 09/05/16 at 23:30 Enoxaparin Sodium (Lovenox) 30 mg DAILY SC Last administered on 09/14/16 08:30 ; Admin Dose 30 MG; Start 09/06/16 at 09:00 Mupirocin (Bactroban) 1 applic BID TOP Last administered on 09/14/16 08:27; Admin Dose 1 APPLIC; Start 09/08/16 at 21:00 Doxycycline Hyclate 100 mg 100 mg BID PO Last administered on 09/14/16 08:26; Admin Dose 100 MG; Start 09/12/16 at 21:00; Stop 09/19/16 at 09:01 Magnesium Sulfate (Magnesium Sulfate 2 Gm/50 ml) 50 ml @ 25 mls/hr ONCE ONCE IVPB Last administered on 09/14/16 10:10; Admin Dose 25 MLS/HR; Start 09/14/16 at 09:30; Stop 09/14/16 at 11:29 GINGER MOSES Sep 14, 2016 10:37
--- NOTE | 2016-09-14 12:32 | CONS ---
Date/Time of Note Date/Time of Note DATE: 09/14/16 TIME: 12:29 Assessment/Plan Assessment/Plan Additional Assessment/Plan 1. Acute kidney injury secondary to prerenal azotemia. 2. Severe hyponatremia, likely secondary to hypovolemic hyponatremia. 3. Acute hyperkalemia secondary to acute kidney injury and moderate to severe dehydration. 4. Moderate to severe dehydration. 5. 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 6. Hypomagnesemia s/p replacement yesterday PLAN: Creatinine 1.05 Na normal, magnesium replaced y esterday, it was very low, BMP with mag stat will follow up K normal Consultation Date/Type/Reason Admit Date/Time Sep 05, 2016 at 23:14 Initial Consult Date Aug Type of Consultation: NEPHROLOGY Reason for Consultation acute kidney injury,HYperkalemia, Hypomagnesemia Referring Provider: CARLOS RODRIGUEZ MD 24 HR Interval Summary Free Text/Dictation Cr stable, no labs today to review Exam/Review of Systems Vital Signs Vitals Vital Signs Date Time Temp Pulse Resp B/P Pulse Ox O2 Delivery O2 Flow Rate FiO2 09/14/16 12:17 141 09/14/16 11:57 98.0 20 114/70 95 09/10/16 23:39 21 Intake and Output 09/13/16 09/13/16 09/14/16 15:00 23:00 07:00 Intake Total 1200 ml Balance 1200 ml Exam GENERAL: Awake, alert, in no acute distress. NECK: Supple, no JVD, no lymphadenopathy. Oral mucosa pink and moist. CHEST: Lungs clear bilaterally, no rhonchi, no wheezes. HEART: S1, S2, tachycardia, no murmur. ABDOMEN: Soft, nontender, nondistended. Right lower quadrant ileostomy is present. Results Result Diagram: 09/13/16 0610 09/14/16 0608 Results 24 hrs Laboratory Tests Test 09/14/16 06:08 Anion Gap 28 H Blood Urea Nitrogen 41 H Calcium Level 10.1 Carbon Dioxide Level 20 L Chloride Level 95 L Creatinine 1.02 H Glucose Level 122 Magnesium Level 0.8 *L Potassium Level 4.8 Sodium Level 138 Medications Medications Current Medications Cyanocobalamin (Vitamin B12 Inj) 1,000 mcg Q28D IM Last administered on 00:09; Admin Dose 1,000 MCG; Start 09/05/16 at 23:30 Famotidine (Pepcid) 20 mg DAILY PO Last administered on 09/14/16 08:26; Admin Dose 20 MG; Start 09/06/16 at 09:00 Folic Acid (Folic Acid) 1 mg DAILY PO Last administered on 09/14/16 08:26; Admin Dose 1 MG; Start 09/06/16 at 09:00 Hydroxyzine Pamoate (Vistaril) 25 mg QHS PRN PO ITCHING Last administered on 22:14; Admin Dose 25 MG; Start 09/05/16 at 23:30 Ondansetron HCl (Zofran Inj) 4 mg Q6H PRN IV NAUSEA AND/OR VOMITING; Start at 23:30 Aspirin (Aspirin) 81 mg DAILY PO Last administered on 09/14/16 08:26; Admin Dose 81 MG; Start 09/06/16 at 09:00 Acetaminophen (Tylenol Tab) 650 mg Q6H PRN PO PAIN LEVEL 1-3 OR FEVER Last administered on 09/09/16 08:35; Admin Dose 650 MG; Start 09/05/16 at 23:30 Morphine Sulfate (morphine) 2 mg Q4H PRN IV PAIN LEVEL 7-10 Last administered on 09/14/16 00:31; Admin Dose 2 MG; Start 09/05/16 at 23:30 Enoxaparin Sodium (Lovenox) 30 mg DAILY SC Last administered on 09/14/16 08:30 ; Admin Dose 30 MG; Start 09/06/16 at 09:00 Mupirocin (Bactroban) 1 applic BID TOP Last administered on 09/14/16 08:27; Admin Dose 1 APPLIC; Start 09/08/16 at 21:00 Doxycycline Hyclate (Vibramycin) 100 mg BID PO Last administered on 09/14/16 08 :26; Admin Dose 100 MG; Start 09/12/16 at 21:00; Stop 09/19/16 at 09:01 ROHAN VELÁZQUEZ MD Sep 14, 2016 12:31
[2016-09-14 14:18] LABS: POTASSIUM 3.4 mmol/L (3.5-5.1)
[2016-09-14 14:21] LABS: CALCIUM 9.4 mg/dl (8.4-10.2); CREATININE 0.9 mg/dl (0.44-1.00); MAGNESIUM 1.9 mg/dl (1.7-2.5)
[2016-09-14] MEDS ORDERED: POTASSIUM CHLORIDE 20 MEQ POWDER FOR ORAL SOLN PO ONE (15:30)
[2016-09-14] MEDS ORDERED: POTASSIUM CHLORIDE (SR) 20 MEQ TAB PO STA (15:52)
[2016-09-14] MEDS: hydrOXYzine PAMOATE 25 MG CAP PO PRN (20:21)
[2016-09-15 00:05] VITALS: BP 118/63; RESP 18
[2016-09-15] MEDS: morphine 2 MG INJ IV PRN (01:06)
[2016-09-15 02:15] VITALS: BP 98/59; PULSE 104; RESP 19
[2016-09-15 06:49] LABS: POTASSIUM 5.6 mmol/L (3.5-5.1)
[2016-09-15 06:52] LABS: CREATININE 0.92 mg/dl (0.44-1.00)
[2016-09-15 06:53] LABS: CALCIUM 10.7 mg/dl (8.4-10.2)
[2016-09-15 08:20] VITALS: BP 101/65; PULSE 120; RESP 18
[2016-09-15] MEDS: DOXYCYCLINE 100 MG TAB PO SCH ×2 (08:36→22:32)
[2016-09-15] MEDS: FOLIC ACID 1 MG TAB PO SCH (08:37)
[2016-09-15] MEDS: FAMOTIDINE 20 MG TAB PO SCH ×2 (08:37→22:32)
[2016-09-15] MEDS: ASPIRIN 81 MG TAB PO SCH (08:37)
[2016-09-15] MEDS: ENOXAPARIN 30 MG/0.3 ML SYG SC SCH (08:46)
[2016-09-15] MEDS: MUPIROCIN 2% 22 GM OINT TOP SCH ×2 (10:50→22:32)
--- NOTE | 2016-09-15 11:11 | CONS ---
Date/Time of Note Date/Time of Note DATE: 09/15/16 TIME: 11:08 Assessment/Plan Assessment/Plan Additional Assessment/Plan 1. Acute kidney injury secondary to prerenal azotemia. 2. Severe hyponatremia, likely secondary to hypovolemic hyponatremia. 3. Acute hyperkalemia secondary to acute kidney injury and moderate to severe dehydration. 4. Moderate to severe dehydration. 5. 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 6. Hypomagnesemia s/p replacement yesterday - still low 1.5 7.Hyperkalemia due to overcorrection PLAN: Kayexalate 15 gram PO x 1 dose today for elevated K, magnesium sulfate 2 gram IV x 1 dose now Cr normal will continue to follow up on patient Consultation Date/Type/Reason Admit Date/Time Sep 05, 2016 at 23:14 Initial Consult Date Aug Type of Consultation: NEPHROLOGY Reason for Consultation acute kidney injury, Hypokalemia, Hypomagnesemia Referring Provider: CARLOS RODRIGUEZ MD 24 HR Interval Summary Free Text/Dictation K 5.6, Mag 1.4, no acute events overnight, BP stable Exam/Review of Systems Vital Signs Vitals Vital Signs Date Time Temp Pulse Resp B/P Pulse Ox O2 Delivery O2 Flow Rate FiO2 09/15/16 08:20 97.6 120 18 101/65 100 Room Air Intake and Output 09/14/16 09/14/16 09/15/16 15:00 23:00 07:00 Intake Total 1600 ml 240 ml Output Total 650 ml Balance 950 ml 240 ml Exam GENERAL: Awake, alert, in no acute distress. NECK: Supple, no JVD, no lymphadenopathy. Oral mucosa pink and moist. CHEST: Lungs clear bilaterally, no rhonchi, no wheezes. HEART: S1, S2, tachycardia, no murmur. ABDOMEN: Soft, nontender, nondistended. Right lower quadrant ileostomy is present. Results Result Diagram: 09/13/16 0610 09/15/16 0450 Results 24 hrs Laboratory Tests Test 09/14/16 13:35 09/15/16 04:50 Anion Gap 18 #H 24 H Blood Urea Nitrogen 38 H 40 H Calcium Level 9.4 10.7 H Carbon Dioxide Level 25 21 Chloride Level 95 L 97 Creatinine 0.90 0.92 Glucose Level 156 86 # Magnesium Level 1.9 1.4 L Potassium Level 3.4 L 5.6 #H Sodium Level 135 136 Medications Medications Current Medications Cyanocobalamin (Vitamin B12 Inj) 1,000 mcg Q28D IM Last administered on 00:09; Admin Dose 1,000 MCG; Start 09/05/16 at 23:30 Folic Acid (Folic Acid) 1 mg DAILY PO Last administered on 09/15/16 08:37; Admin Dose 1 MG; Start 09/06/16 at 09:00 Hydroxyzine Pamoate (Vistaril) 25 mg QHS PRN PO ITCHING Last administered on 20:21; Admin Dose 25 MG; Start 09/05/16 at 23:30 Ondansetron HCl (Zofran Inj) 4 mg Q6H PRN IV NAUSEA AND/OR VOMITING; Start at 23:30 Aspirin (Aspirin) 81 mg DAILY PO Last administered on 09/15/16 08:37; Admin Dose 81 MG; Start 09/06/16 at 09:00 Acetaminophen (Tylenol Tab) 650 mg Q6H PRN PO PAIN LEVEL 1-3 OR FEVER Last administered on 09/09/16 08:35; Admin Dose 650 MG; Start 09/05/16 at 23:30 Morphine Sulfate (morphine) 2 mg Q4H PRN IV PAIN LEVEL 7-10 Last administered on 09/15/16 01:06; Admin Dose 2 MG; Start 09/05/16 at 23:30 Enoxaparin Sodium (Lovenox) 30 mg DAILY SC Last administered on 09/15/16 08:46 ; Admin Dose 30 MG; Start 09/06/16 at 09:00 Mupirocin (Bactroban) 1 applic BID TOP Last administered on 09/15/16 10:50; Admin Dose 1 APPLIC; Start 09/08/16 at 21:00 Doxycycline Hyclate (Vibramycin) 100 mg BID PO Last administered on 09/15/16 08 :36; Admin Dose 100 MG; Start 09/12/16 at 21:00; Stop 09/19/16 at 09:01 Famotidine (Pepcid) 20 mg BID PO Last administered on 09/15/16 08:37; Admin Dose 20 MG; Start 09/14/16 at 21:00 ROHAN VELÁZQUEZ MD Sep 15, 2016 11:11
[2016-09-15] MEDS ORDERED: NA POLYST SULFON 15 GM/60 ML BTL PO ONE (11:30)
--- NOTE | 2016-09-15 11:49 | PN ---
Date/Time of Note Date/Time of Note DATE: 09/15/16 TIME: 11:48 Assessment/Plan VTE Prophylaxis VTE Prophylaxis Intervention: other Lines/Catheters IV [facility] Type (from [facility]): Saline Lock Urinary Cath still in place: No Assessment/Plan Chief Complaint/Hosp Course 1. Headache and dizziness. CT is negative for any acute abnormality. Patient is awake, alert and oriented x3. 2. Hyperkalemia secondary to dehydration. 3. Hyponatremia. 4. Acute kidney injury. Dr. Spain is following in nephrology consultation. Continue IV fluids. 5. Ileostomy. 6. 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 Problems: Subjective 24 Hr Interval Summary Free Text/Dictation Patient has no complaints but she is noncompliant. Exam/Review of Systems Vital Signs Vitals Vital Signs Date Time Temp Pulse Resp B/P Pulse Ox O2 Delivery O2 Flow Rate FiO2 09/15/16 08:20 97.6 120 18 101/65 100 Room Air Intake and Output 09/14/16 09/14/16 09/15/16 15:00 23:00 07:00 Intake Total 1600 ml 240 ml Output Total 650 ml Balance 950 ml 240 ml Exam Constitutional: well developed Head: atraumatic, normocephalic Neck: supple Respiratory: clear to auscultation Cardiovascular: regular rate and rhythm Gastrointestinal: non-tender, soft Results Result Diagram: 09/13/16 0610 09/15/16 0450 Results 24 hrs Laboratory Tests Test 09/14/16 13:35 09/15/16 04:50 Anion Gap 18 #H 24 H Blood Urea Nitrogen 38 H 40 H Calcium Level 9.4 10.7 H Carbon Dioxide Level 25 21 Chloride Level 95 L 97 Creatinine 0.90 0.92 Glucose Level 156 86 # Magnesium Level 1.9 1.4 L Potassium Level 3.4 L 5.6 #H Sodium Level 135 136 Medications Medications Current Medications Cyanocobalamin (Vitamin B12 Inj) 1,000 mcg Q28D IM Last administered on 00:09; Admin Dose 1,000 MCG; Start 09/05/16 at 23:30 Folic Acid (Folic Acid) 1 mg DAILY PO Last administered on 09/15/16 08:37; Admin Dose 1 MG; Start 09/06/16 at 09:00 Hydroxyzine Pamoate (Vistaril) 25 mg QHS PRN PO ITCHING Last administered on 20:21; Admin Dose 25 MG; Start 09/05/16 at 23:30 Ondansetron HCl (Zofran Inj) 4 mg Q6H PRN IV NAUSEA AND/OR VOMITING; Start at 23:30 Aspirin (Aspirin) 81 mg DAILY PO Last administered on 09/15/16 08:37; Admin Dose 81 MG; Start 09/06/16 at 09:00 Acetaminophen (Tylenol Tab) 650 mg Q6H PRN PO PAIN LEVEL 1-3 OR FEVER Last administered on 09/09/16 08:35; Admin Dose 650 MG; Start 09/05/16 at 23:30 Morphine Sulfate (morphine) 2 mg Q4H PRN IV PAIN LEVEL 7-10 Last administered on 09/15/16 01:06; Admin Dose 2 MG; Start 09/05/16 at 23:30 Enoxaparin Sodium (Lovenox) 30 mg DAILY SC Last administered on 09/15/16 08:46 ; Admin Dose 30 MG; Start 09/06/16 at 09:00 Mupirocin (Bactroban) 1 applic BID TOP Last administered on 09/15/16 10:50; Admin Dose 1 APPLIC; Start 09/08/16 at 21:00 Doxycycline Hyclate (Vibramycin) 100 mg BID PO Last administered on 09/15/16 08 :36; Admin Dose 100 MG; Start 09/12/16 at 21:00; Stop 09/19/16 at 09:01 Famotidine 20 mg 20 mg BID PO Last administered on 09/15/16 08:37; Admin Dose 20 MG; Start 09/14/16 at 21:00 Magnesium Sulfate (Magnesium Sulfate 2 Gm/50 ml) 50 ml @ 25 mls/hr ONCE ONCE IVPB ; Start 09/15/16 at 12:00; Stop 09/15/16 at 13:59 GINGER MOSES 5, 2017 11:49
[2016-09-15] MEDS ORDERED: MAGNESIUM SULFATE 2 GM/50 ML 50 ML IVPB ONE (12:00)
[2016-09-15 19:58] VITALS: BP 88/54; RESP 18
[2016-09-15] MEDS: hydrOXYzine PAMOATE 25 MG CAP PO PRN (22:32)
[2016-09-16 07:47] VITALS: BP 103/64; RESP 18
[2016-09-16] MEDS: DOXYCYCLINE 100 MG TAB PO SCH ×2 (09:09→20:54)
[2016-09-16] MEDS: FOLIC ACID 1 MG TAB PO SCH (09:09)
[2016-09-16] MEDS: FAMOTIDINE 20 MG TAB PO SCH ×2 (09:09→20:54)
[2016-09-16] MEDS: MUPIROCIN 2% 22 GM OINT TOP SCH ×2 (09:10→20:56)
[2016-09-16] MEDS: ENOXAPARIN 30 MG/0.3 ML SYG SC SCH (09:19)
--- NOTE | 2016-09-16 10:00 | CONS ---
Date/Time of Note Date/Time of Note DATE: 09/16/16 TIME: 09:58 Assessment/Plan Assessment/Plan Additional Assessment/Plan 1. Acute kidney injury secondary to prerenal azotemia. 2. Severe hyponatremia, likely secondary to hypovolemic hyponatremia. 3. Acute hyperkalemia secondary to acute kidney injury and moderate to severe dehydration. 4. Moderate to severe dehydration. 5. 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 6. Hypomagnesemia s/p replacement yesterday - still low 1.5 7.Hyperkalemia due to overcorrection PLAN: Kayexalate 15 gram PO x 1 dose today for elevated K, magnesium sulfate 2 gram IV x 1 dose now - Both given yesterday, no labs today to review Cr normal will continue to follow up on patient Consultation Date/Type/Reason Admit Date/Time Sep 05, 2016 at 23:14 Initial Consult Date Aug Type of Consultation: NEPHROLOGY Reason for Consultation acute kidney injury, Hyperkalemia Referring Provider: CARLOS RODRIGUEZ MD 24 HR Interval Summary Free Text/Dictation afebrile, BP stable Exam/Review of Systems Vital Signs Vitals Vital Signs Date Time Temp Pulse Resp B/P Pulse Ox O2 Delivery O2 Flow Rate FiO2 09/16/16 07:47 97.9 91 18 103/64 100 09/15/16 08:20 Room Air Intake and Output 09/15/16 09/15/16 09/16/16 15:00 23:00 07:00 Intake Total 1260 ml 2400 ml Balance 1260 ml 2400 ml Exam GENERAL: Awake, alert, in no acute distress. NECK: Supple, no JVD, no lymphadenopathy. Oral mucosa pink and moist. CHEST: Lungs clear bilaterally, no rhonchi, no wheezes. HEART: S1, S2, tachycardia, no murmur. ABDOMEN: Soft, nontender, nondistended. Right lower quadrant ileostomy is present. Results Result Diagram: 09/13/16 0610 09/15/16 0450 Medications Medications Current Medications Cyanocobalamin (Vitamin B12 Inj) 1,000 mcg Q28D IM Last administered on 00:09; Admin Dose 1,000 MCG; Start 09/05/16 at 23:30 Folic Acid (Folic Acid) 1 mg DAILY PO Last administered on 09/16/16 09:09; Admin Dose 1 MG; Start 09/06/16 at 09:00 Hydroxyzine Pamoate (Vistaril) 25 mg QHS PRN PO ITCHING Last administered on 22:32; Admin Dose 25 MG; Start 09/05/16 at 23:30 Ondansetron HCl (Zofran Inj) 4 mg Q6H PRN IV NAUSEA AND/OR VOMITING; Start at 23:30 Aspirin (Aspirin) 81 mg DAILY PO Last administered on 09/15/16 08:37; Admin Dose 81 MG; Start 09/06/16 at 09:00 Acetaminophen (Tylenol Tab) 650 mg Q6H PRN PO PAIN LEVEL 1-3 OR FEVER Last administered on 09/09/16 08:35; Admin Dose 650 MG; Start 09/05/16 at 23:30 Morphine Sulfate (morphine) 2 mg Q4H PRN IV PAIN LEVEL 7-10 Last administered on 09/15/16 01:06; Admin Dose 2 MG; Start 09/05/16 at 23:30 Enoxaparin Sodium (Lovenox) 30 mg DAILY SC Last administered on 09/16/16 09:19 ; Admin Dose 30 MG; Start 09/06/16 at 09:00 Mupirocin (Bactroban) 1 applic BID TOP Last administered on 09/16/16 09:10; Admin Dose 1 APPLIC; Start 09/08/16 at 21:00 Doxycycline Hyclate (Vibramycin) 100 mg BID PO Last administered on 09/16/16 09 :09; Admin Dose 100 MG; Start 09/12/16 at 21:00; Stop 09/19/16 at 09:01 Famotidine (Pepcid) 20 mg BID PO Last administered on 09/16/16 09:09; Admin Dose 20 MG; Start 09/14/16 at 21:00 ROHAN VELÁZQUEZ MD Sep 16, 2016 10:00
[2016-09-16] MEDS: ASPIRIN 81 MG TAB PO SCH (10:28)
[2016-09-16 11:38] LABS: POTASSIUM 4.1 mmol/L (3.5-5.1)
[2016-09-16 11:41] LABS: CREATININE 0.86 mg/dl (0.44-1.00)
[2016-09-16 11:42] LABS: MAGNESIUM 1.4 mg/dl (1.7-2.5)
--- NOTE | 2016-09-16 18:22 | PN ---
Date/Time of Note Date/Time of Note DATE: 09/16/16 TIME: 18:22 Assessment/Plan VTE Prophylaxis VTE Prophylaxis Intervention: SCD's Lines/Catheters IV C[facility]ter Type (from [facility]): Saline Lock Urinary Cath still in place: No Assessment/Plan Chief Complaint/Hosp Course ASSESSMENT AND PLAN: 1. Headache and dizziness. CT is negative for any acute abnormality. Patient is awake, alert and oriented x3. 2. Hyperkalemia secondary to dehydration. 3. Hyponatremia. 4. Acute kidney injury. Dr. Spain is following in nephrology consultation. Continue IV fluids. 5. Ileostomy. 6. 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 Na is 127 today, pt is off IVF, resume IVF. BMP and Mag tomorrow. Further recommendations based on clinical course. Plan of care discussed with Dr. Paez. Problems: Subjective 24 Hr Interval Summary Free Text/Dictation Patient denies any N/V, no fever. Exam/Review of Systems Vital Signs Vitals Vital Signs Date Time Temp Pulse Resp B/P Pulse Ox O2 Delivery O2 Flow Rate FiO2 09/16/16 07:47 97.9 91 18 103/64 100 09/15/16 08:20 Room Air Intake and Output 09/15/16 09/15/16 09/16/16 15:00 23:00 07:00 Intake Total 1260 ml 2400 ml Balance 1260 ml 2400 ml Exam GENERAL: The patient is a well-nourished female, in no acute distress. HEENT: Head is atraumatic, normocephalic. NECK: Supple. No cervical lymphadenopathy, no thyromegaly. CHEST: Lungs clear bilaterally. There are no rhonchi, wheezes or rales noted. CARDIOVASCULAR: The patient is slightly tachycardic. Normal S1, S2. No murmurs, gallops, clicks or rubs noted. ABDOMEN: Flat, soft, nondistended, nontender. Patient has a right lower quadrant ileostomy. EXTREMITIES: No edema, clubbing or cyanosis. Pulses are equal bilaterally at 2 +. SKIN: There is no rash or petechiae noted. NEUROLOGIC: Patient is awake, alert and oriented x3 Results Result Diagram: 09/13/16 0610 09/16/16 1120 Results 24 hrs Laboratory Tests Test 09/16/16 11:20 Anion Gap 17 #H Blood Urea Nitrogen 29 #H Calcium Level 10.0 Carbon Dioxide Level 26 Chloride Level 88 L Creatinine 0.86 Glucose Level 117 Magnesium Level 1.4 L Potassium Level 4.1 Sodium Level 127 L Medications Medications Current Medications Cyanocobalamin (Vitamin B12 Inj) 1,000 mcg Q28D IM Last administered on 00:09; Admin Dose 1,000 MCG; Start 09/05/16 at 23:30 Folic Acid (Folic Acid) 1 mg DAILY PO Last administered on 09/16/16 09:09; Admin Dose 1 MG; Start 09/06/16 at 09:00 Hydroxyzine Pamoate (Vistaril) 25 mg QHS PRN PO ITCHING Last administered on 22:32; Admin Dose 25 MG; Start 09/05/16 at 23:30 Ondansetron HCl (Zofran Inj) 4 mg Q6H PRN IV NAUSEA AND/OR VOMITING; Start at 23:30 Aspirin (Aspirin) 81 mg DAILY PO Last administered on 09/16/16 10:28; Admin Dose 81 MG; Start 09/06/16 at 09:00 Acetaminophen (Tylenol Tab) 650 mg Q6H PRN PO PAIN LEVEL 1-3 OR FEVER Last administered on 09/09/16 08:35; Admin Dose 650 MG; Start 09/05/16 at 23:30 Morphine Sulfate (morphine) 2 mg Q4H PRN IV PAIN LEVEL 7-10 Last administered on 09/15/16 01:06; Admin Dose 2 MG; Start 09/05/16 at 23:30 Enoxaparin Sodium (Lovenox) 30 mg DAILY SC Last administered on 09/16/16 09:19 ; Admin Dose 30 MG; Start 09/06/16 at 09:00 Mupirocin (Bactroban) 1 applic BID TOP Last administered on 09/16/16 09:10; Admin Dose 1 APPLIC; Start 09/08/16 at 21:00 Doxycycline Hyclate (Vibramycin) 100 mg BID PO Last administered on 09/16/16 09 :09; Admin Dose 100 MG; Start 09/12/16 at 21:00; Stop 09/19/16 at 09:01 Famotidine (Pepcid) 20 mg BID PO Last administered on 09/16/16 09:09; Admin Dose 20 MG; Start 09/14/16 at 21:00 ROMI ESPINO Sep 16, 2016 18:22
[2016-09-16] MEDS ORDERED: MAGNESIUM SULFATE 2 GM/50 ML 50 ML IVPB STA (18:24)
[2016-09-16] MEDS ORDERED: SOD CHLORIDE 0.9% 1,000 ML IV ONE (18:30)
[2016-09-16 19:33] VITALS: BP 101/61; RESP 20
[2016-09-16] MEDS: hydrOXYzine PAMOATE 25 MG CAP PO PRN (23:35)
[2016-09-17 06:05] LABS: ADD SCAN DIFF NO
[2016-09-17 06:13] LABS: BASOPHIL # 0.1 10^3/ul (0.0-0.1); BASOPHILS % 0.8 % (0.0-2.0); EOSINOPHILS # 1.5 10^3/ul (0.0-0.5); EOSINOPHILS % 17.5 % (0.0-7.0); HEMATOCRIT 37.1 % (37.0-47.0); HEMOGLOBIN 13.2 g/dl (12.0-16.0); LYMPHOCYTES # 0.9 10^3/ul (0.8-2.9); MEAN CORPUSCULAR HGB CONC 35.6 g/dl (32.0-37.0); MEAN CORPUSCULAR VOLUME 89.8 fl (82.0-101.0); MEAN PLATELET VOLUME 9.1 fl (7.4-10.4); MONOCYTE # 0.5 10^3/ul (0.3-0.9); NEUTROPHIL # 5.5 10^3/ul (1.6-7.5); NEUTROPHILS % 63.6 % (39.0-77.0); PLATELET COUNT 638 10^3/UL (140-415); RED BLOOD COUNT 4.13 10^6/ul (4.20-5.40); RED CELL DISTRIBUTION WIDTH 13.6 % (11.5-14.5); WHITE BLOOD COUNT 8.6 10^3/ul (4.8-10.8)
[2016-09-17 06:33] LABS: POTASSIUM 4.9 mmol/L (3.5-5.1)
[2016-09-17 06:36] LABS: CREATININE 0.92 mg/dl (0.44-1.00)
[2016-09-17 06:37] LABS: CALCIUM 9.8 mg/dl (8.4-10.2)
[2016-09-17 07:22] VITALS: BP 105/57; RESP 18
[2016-09-17] MEDS: FOLIC ACID 1 MG TAB PO SCH (09:20)
[2016-09-17] MEDS: FAMOTIDINE 20 MG TAB PO SCH ×2 (09:20→20:54)
[2016-09-17] MEDS: DOXYCYCLINE 100 MG TAB PO SCH ×2 (09:20→20:54)
[2016-09-17] MEDS: ASPIRIN 81 MG TAB PO SCH (09:20)
[2016-09-17] MEDS: MUPIROCIN 2% 22 GM OINT TOP SCH ×2 (09:21→20:55)
[2016-09-17] MEDS: ENOXAPARIN 30 MG/0.3 ML SYG SC SCH (09:30)
--- NOTE | 2016-09-17 12:55 | PN ---
Date/Time of Note Date/Time of Note DATE: 09/17/16 TIME: 12:53 Assessment/Plan VTE Prophylaxis VTE Prophylaxis Intervention: SCD's Lines/Catheters [facility] Type (from [facility] Saline Lock Urinary Cath still in place: No Assessment/Plan Chief Complaint/Hosp Course ASSESSMENT AND PLAN: 1. Headache and dizziness. CT is negative for any acute abnormality. Patient is awake, alert and oriented x3. 2. Hyperkalemia secondary to dehydration. 3. Hyponatremia. 4. Acute kidney injury. Dr. Spain is following in nephrology consultation. Continue IV fluids. 5. Ileostomy. 6. 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 Anticipate d/c when pt has stable electrolytes while maintaining PO diet. Plan of care d/w pt, all questions answered. Further recommendations based on clinical course. Plan of care discussed with Dr. Paez. Problems: Subjective 24 Hr Interval Summary Free Text/Dictation Patient denies any fever, N/V. Exam/Review of Systems Vital Signs Vitals Vital Signs Date Time Temp Pulse Resp B/P Pulse Ox O2 Delivery O2 Flow Rate FiO2 09/17/16 07:22 97.5 109 18 105/57 100 09/15/16 08:20 Room Air Intake and Output 09/16/16 09/16/16 09/17/16 15:00 23:00 07:00 Intake Total 1250 ml 865 ml Output Total 900 ml Balance 350 ml 865 ml Exam GENERAL: The patient is a well-nourished female, in no acute distress. HEENT: Head is atraumatic, normocephalic. NECK: Supple. No cervical lymphadenopathy, no thyromegaly. CHEST: Lungs clear bilaterally. There are no rhonchi, wheezes or rales noted. CARDIOVASCULAR: The patient is slightly tachycardic. Normal S1, S2. No murmurs, gallops, clicks or rubs noted. ABDOMEN: Flat, soft, nondistended, nontender. Patient has a right lower quadrant ileostomy. EXTREMITIES: No edema, clubbing or cyanosis. Pulses are equal bilaterally at 2 +. SKIN: There is no rash or petechiae noted. NEUROLOGIC: Patient is awake, alert and oriented x3 Results Result Diagram: 09/17/16 0530 09/17/16 0530 Results 24 hrs Laboratory Tests Test 09/17/16 05:30 Anion Gap 21 H Basophils # 0.1 Basophils % 0.8 Blood Urea Nitrogen 32 H Calcium Level 9.8 Carbon Dioxide Level 27 Chloride Level 90 L Creatinine 0.92 Eosinophils # 1.5 H Eosinophils % 17.5 H Glucose Level 99 Hematocrit 37.1 Hemoglobin 13.2 Lymphocytes # 0.9 Lymphocytes % 11.0 L Magnesium Level 2.6 #H Mean Corpuscular Hemoglobin 32.0 Mean Corpuscular Hemoglobin Concent 35.6 Mean Corpuscular Volume 89.8 Mean Platelet Volume 9.1 Monocytes # 0.5 Monocytes % 6.0 Neutrophils # 5.5 Neutrophils % 63.6 Nucleated Red Blood Cells # 0.0 Nucleated Red Blood Cells % 0.0 Platelet Count 638 H Potassium Level 4.9 Red Blood Count 4.13 L Red Cell Distribution Width 13.6 Sodium Level 133 L White Blood Count 8.6 Medications Medications Current Medications Cyanocobalamin (Vitamin B12 Inj) 1,000 mcg Q28D IM Last administered on 00:09; Admin Dose 1,000 MCG; Start 09/05/16 at 23:30 Folic Acid (Folic Acid) 1 mg DAILY PO Last administered on 09/17/16 09:20; Admin Dose 1 MG; Start 09/06/16 at 09:00 Hydroxyzine Pamoate (Vistaril) 25 mg QHS PRN PO ITCHING Last administered on 23:35; Admin Dose 25 MG; Start 09/05/16 at 23:30 Ondansetron HCl (Zofran Inj) 4 mg Q6H PRN IV NAUSEA AND/OR VOMITING Last administered on 09/16/16 23:35; Admin Dose 4 MG; Start 09/05/16 at 23:30 Aspirin (Aspirin) 81 mg DAILY PO Last administered on 09/17/16 09:20; Admin Dose 81 MG; Start 09/06/16 at 09:00 Acetaminophen (Tylenol Tab) 650 mg Q6H PRN PO PAIN LEVEL 1-3 OR FEVER Last administered on 09/09/16 08:35; Admin Dose 650 MG; Start 09/05/16 at 23:30 Morphine Sulfate (morphine) 2 mg Q4H PRN IV PAIN LEVEL 7-10 Last administered on 09/15/16 01:06; Admin Dose 2 MG; Start 09/05/16 at 23:30 Enoxaparin Sodium (Lovenox) 30 mg DAILY SC Last administered on 09/17/16 09:30 ; Admin Dose 30 MG; Start 09/06/16 at 09:00 Mupirocin (Bactroban) 1 applic BID TOP Last administered on 09/17/16 09:21; Admin Dose 1 APPLIC; Start 09/08/16 at 21:00 Doxycycline Hyclate (Vibramycin) 100 mg BID PO Last administered on 09/17/16 09 :20; Admin Dose 100 MG; Start 09/12/16 at 21:00; Stop 09/19/16 at 09:01 Famotidine (Pepcid) 20 mg BID PO Last administered on 09/17/16 09:20; Admin Dose 20 MG; Start 09/14/16 at 21:00 ROMI ESPINO Sep 17, 2016 12:55
--- NOTE | 2016-09-17 15:28 | CONS ---
Date/Time of Note Date/Time of Note DATE: 09/17/16 TIME: 15:26 Assessment/Plan Assessment/Plan Additional Assessment/Plan 1. Acute kidney injury secondary to prerenal azotemia. 2. Severe hyponatremia, likely secondary to hypovolemic hyponatremia. 3. Acute hyperkalemia secondary to acute kidney injury and moderate to severe dehydration. 4. Moderate to severe dehydration. 5. 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 6. Hypomagnesemia s/p replacement yesterday - still low 1.5 7.Hyperkalemia due to overcorrection PLAN: Na low, Mag high , Cr normal will continue to follow up on patient Consultation Date/Type/Reason Admit Date/Time Sep 05, 2016 at 23:14 Initial Consult Date Aug Type of Consultation: NEPHROLOGY Referring Provider: CARLOS RODRIGUEZ MD 24 HR Interval Summary Free Text/Dictation Na low, mag high, cr normal, Pt still not having Proper PO diet well Exam/Review of Systems Vital Signs Vitals Vital Signs Date Time Temp Pulse Resp B/P Pulse Ox O2 Delivery O2 Flow Rate FiO2 09/17/16 07:22 97.5 109 18 105/57 100 09/15/16 08:20 Room Air Intake and Output 09/16/16 09/16/16 09/17/16 15:00 23:00 07:00 Intake Total 1250 ml 865 ml Output Total 900 ml Balance 350 ml 865 ml Exam GENERAL: Awake, alert, in no acute distress. NECK: Supple, no JVD, no lymphadenopathy. Oral mucosa pink and moist. CHEST: Lungs clear bilaterally, no rhonchi, no wheezes. HEART: S1, S2, tachycardia, no murmur. ABDOMEN: Soft, nontender, nondistended. Right lower quadrant ileostomy is present. Results Result Diagram: 09/17/16 0530 09/17/16 0530 Results 24 hrs Laboratory Tests Test 09/17/16 05:30 Anion Gap 21 H Basophils # 0.1 Basophils % 0.8 Blood Urea Nitrogen 32 H Calcium Level 9.8 Carbon Dioxide Level 27 Chloride Level 90 L Creatinine 0.92 Eosinophils # 1.5 H Eosinophils % 17.5 H Glucose Level 99 Hematocrit 37.1 Hemoglobin 13.2 Lymphocytes # 0.9 Lymphocytes % 11.0 L Magnesium Level 2.6 #H Mean Corpuscular Hemoglobin 32.0 Mean Corpuscular Hemoglobin Concent 35.6 Mean Corpuscular Volume 89.8 Mean Platelet Volume 9.1 Monocytes # 0.5 Monocytes % 6.0 Neutrophils # 5.5 Neutrophils % 63.6 Nucleated Red Blood Cells # 0.0 Nucleated Red Blood Cells % 0.0 Platelet Count 638 H Potassium Level 4.9 Red Blood Count 4.13 L Red Cell Distribution Width 13.6 Sodium Level 133 L White Blood Count 8.6 Medications Medications Current Medications Cyanocobalamin (Vitamin B12 Inj) 1,000 mcg Q28D IM Last administered on 00:09; Admin Dose 1,000 MCG; Start 09/05/16 at 23:30 Folic Acid (Folic Acid) 1 mg DAILY PO Last administered on 09/17/16 09:20; Admin Dose 1 MG; Start 09/06/16 at 09:00 Hydroxyzine Pamoate (Vistaril) 25 mg QHS PRN PO ITCHING Last administered on 23:35; Admin Dose 25 MG; Start 09/05/16 at 23:30 Ondansetron HCl (Zofran Inj) 4 mg Q6H PRN IV NAUSEA AND/OR VOMITING Last administered on 09/16/16 23:35; Admin Dose 4 MG; Start 09/05/16 at 23:30 Aspirin (Aspirin) 81 mg DAILY PO Last administered on 09/17/16 09:20; Admin Dose 81 MG; Start 09/06/16 at 09:00 Acetaminophen (Tylenol Tab) 650 mg Q6H PRN PO PAIN LEVEL 1-3 OR FEVER Last administered on 09/09/16 08:35; Admin Dose 650 MG; Start 09/05/16 at 23:30 Morphine Sulfate (morphine) 2 mg Q4H PRN IV PAIN LEVEL 7-10 Last administered on 09/15/16 01:06; Admin Dose 2 MG; Start 09/05/16 at 23:30 Enoxaparin Sodium (Lovenox) 30 mg DAILY SC Last administered on 09/17/16 09:30 ; Admin Dose 30 MG; Start 09/06/16 at 09:00 Mupirocin (Bactroban) 1 applic BID TOP Last administered on 09/17/16 09:21; Admin Dose 1 APPLIC; Start 09/08/16 at 21:00 Doxycycline Hyclate (Vibramycin) 100 mg BID PO Last administered on 09/17/16 09 :20; Admin Dose 100 MG; Start 09/12/16 at 21:00; Stop 09/19/16 at 09:01 Famotidine (Pepcid) 20 mg BID PO Last administered on 09/17/16 09:20; Admin Dose 20 MG; Start 09/14/16 at 21:00 ROHAN VELÁZQUEZ MD Sep 17, 2016 15:27
[2016-09-17 20:06] VITALS: BP 100/55; RESP 18
[2016-09-17] MEDS: hydrOXYzine PAMOATE 25 MG CAP PO PRN (23:10)
[2016-09-18 05:42] LABS: ADD SCAN DIFF NO
[2016-09-18 05:52] LABS: BASOPHIL # 0.1 10^3/ul (0.0-0.1); BASOPHILS % 0.6 % (0.0-2.0); EOSINOPHILS % 14.8 % (0.0-7.0); HEMATOCRIT 36.8 % (37.0-47.0); HEMOGLOBIN 12.8 g/dl (12.0-16.0); LYMPHOCYTES # 0.7 10^3/ul (0.8-2.9); LYMPHOCYTES % 5.3 % (15.0-51.0); MEAN CORPUSCULAR HEMOGLOBIN 31.8 pg (29.0-33.0); MEAN CORPUSCULAR HGB CONC 34.8 g/dl (32.0-37.0); MEAN CORPUSCULAR VOLUME 91.3 fl (82.0-101.0); MONOCYTE # 0.7 10^3/ul (0.3-0.9); MONOCYTES % 5.3 % (0.0-11.0); NEUTROPHIL # 9.9 10^3/ul (1.6-7.5); PLATELET COUNT 506 10^3/UL (140-415); RED BLOOD COUNT 4.03 10^6/ul (4.20-5.40); RED CELL DISTRIBUTION WIDTH 13.8 % (11.5-14.5); WHITE BLOOD COUNT 13.5 10^3/ul (4.8-10.8)
[2016-09-18 06:30] LABS: POTASSIUM 3.6 mmol/L (3.5-5.1)
[2016-09-18 06:32] LABS: CREATININE 0.89 mg/dl (0.44-1.00)
[2016-09-18 06:33] LABS: CALCIUM 9.6 mg/dl (8.4-10.2)
[2016-09-18 07:51] VITALS: BP 106/63; RESP 15
[2016-09-18] MEDS: DOXYCYCLINE 100 MG TAB PO SCH ×2 (09:34→21:55)
[2016-09-18] MEDS: FAMOTIDINE 20 MG TAB PO SCH ×2 (09:34→21:55)
[2016-09-18] MEDS: ASPIRIN 81 MG TAB PO SCH (09:34)
[2016-09-18] MEDS: MUPIROCIN 2% 22 GM OINT TOP SCH ×2 (09:35→22:00)
[2016-09-18] MEDS: FOLIC ACID 1 MG TAB PO SCH (09:35)
[2016-09-18] MEDS: ENOXAPARIN 30 MG/0.3 ML SYG SC SCH (12:53)
--- NOTE | 2016-09-18 18:11 | PN ---
Date/Time of Note Date/Time of Note DATE: 09/18/16 TIME: 18:10 Assessment/Plan VTE Prophylaxis VTE Prophylaxis Intervention: SCD's Lines/Catheters IV C[facility]ter Type (from [facility]): Peripheral IV Urinary Cath still in place: No Assessment/Plan Chief Complaint/Hosp Course ASSESSMENT AND PLAN: 1. Headache and dizziness. CT is negative for any acute abnormality. Patient is awake, alert and oriented x3. 2. Hyperkalemia secondary to dehydration. 3. Hyponatremia. 4. Acute kidney injury. Dr. Spain is following in nephrology consultation. Continue IV fluids. 5. Ileostomy. 6. 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 8. Ileostomy leakage,Dr Hughes is asked to see pt in general surgery consultation. Anticipate d/c when pt has stable electrolytes while maintaining PO diet. Plan of care d/w pt, all questions answered. Further recommendations based on clinical course. Plan of care discussed with Dr. Paez. Problems: Subjective 24 Hr Interval Summary Free Text/Dictation Pt denies any N/V,continues to have leakage from ileostomy site. Exam/Review of Systems Vital Signs Vitals Vital Signs Date Time Temp Pulse Resp B/P Pulse Ox O2 Delivery O2 Flow Rate FiO2 09/18/16 07:51 97.8 120 15 106/63 100 09/15/16 08:20 Room Air Intake and Output 09/17/16 09/17/16 09/18/16 15:00 23:00 07:00 Intake Total 840 ml 300 ml Output Total 900 ml 400 ml Balance -60 ml -100 ml Exam GENERAL: The patient is a well-nourished female, in no acute distress. HEENT: Head is atraumatic, normocephalic. NECK: Supple. No cervical lymphadenopathy, no thyromegaly. CHEST: Lungs clear bilaterally. There are no rhonchi, wheezes or rales noted. CARDIOVASCULAR: The patient is slightly tachycardic. Normal S1, S2. No murmurs, gallops, clicks or rubs noted. ABDOMEN: Flat, soft, nondistended, nontender. Patient has a right lower quadrant ileostomy. EXTREMITIES: No edema, clubbing or cyanosis. Pulses are equal bilaterally at 2 +. SKIN: There is no rash or petechiae noted. NEUROLOGIC: Patient is awake, alert and oriented x3 Results Result Diagram: 09/18/16 0520 09/18/16 0520 Results 24 hrs Laboratory Tests Test 09/18/16 05:20 Anion Gap 18 H Basophils # 0.1 Basophils % 0.6 Blood Urea Nitrogen 32 H Calcium Level 9.6 Carbon Dioxide Level 25 Chloride Level 98 Creatinine 0.89 Eosinophils # 2.0 H Eosinophils % 14.8 H Glucose Level 130 Hematocrit 36.8 L Hemoglobin 12.8 Lymphocytes # 0.7 L Lymphocytes % 5.3 L Magnesium Level 1.5 L Mean Corpuscular Hemoglobin 31.8 Mean Corpuscular Hemoglobin Concent 34.8 Mean Corpuscular Volume 91.3 Mean Platelet Volume 10.0 Monocytes # 0.7 Monocytes % 5.3 Neutrophils # 9.9 H Neutrophils % 73.0 Nucleated Red Blood Cells # 0.0 Nucleated Red Blood Cells % 0.0 Platelet Count 506 #H Potassium Level 3.6 Red Blood Count 4.03 L Red Cell Distribution Width 13.8 Sodium Level 137 White Blood Count 13.5 #H Medications Medications Current Medications Cyanocobalamin (Vitamin B12 Inj) 1,000 mcg Q28D IM Last administered on 00:09; Admin Dose 1,000 MCG; Start 09/05/16 at 23:30 Folic Acid (Folic Acid) 1 mg DAILY PO Last administered on 09/18/16 09:35; Admin Dose 1 MG; Start 09/06/16 at 09:00 Hydroxyzine Pamoate (Vistaril) 25 mg QHS PRN PO ITCHING Last administered on 23:10; Admin Dose 25 MG; Start 09/05/16 at 23:30 Ondansetron HCl (Zofran Inj) 4 mg Q6H PRN IV NAUSEA AND/OR VOMITING Last administered on 09/16/16 23:35; Admin Dose 4 MG; Start 09/05/16 at 23:30 Aspirin (Aspirin) 81 mg DAILY PO Last administered on 09/18/16 09:34; Admin Dose 81 MG; Start 09/06/16 at 09:00 Acetaminophen (Tylenol Tab) 650 mg Q6H PRN PO PAIN LEVEL 1-3 OR FEVER Last administered on 09/09/16 08:35; Admin Dose 650 MG; Start 09/05/16 at 23:30 Morphine Sulfate (morphine) 2 mg Q4H PRN IV PAIN LEVEL 7-10 Last administered on 09/15/16 01:06; Admin Dose 2 MG; Start 09/05/16 at 23:30 Enoxaparin Sodium (Lovenox) 30 mg DAILY SC Last administered on 09/18/16 12:53 ; Admin Dose 30 MG; Start 09/06/16 at 09:00 Mupirocin (Bactroban) 1 applic BID TOP Last administered on 09/18/16 09:35; Admin Dose 1 APPLIC; Start 09/08/16 at 21:00 Doxycycline Hyclate (Vibramycin) 100 mg BID PO Last administered on 09/18/16 09 :34; Admin Dose 100 MG; Start 09/12/16 at 21:00; Stop 09/19/16 at 09:01 Famotidine (Pepcid) 20 mg BID PO Last administered on 09/18/16 09:34; Admin Dose 20 MG; Start 09/14/16 at 21:00 ROMI ESPINO Sep 18, 2016 18:11
[2016-09-18 19:58] VITALS: BP 105/73; RESP 22
--- NOTE | 2016-09-18 21:19 | CONS ---
Date/Time of Note Date/Time of Note DATE: 09/18/16 TIME: 21:16 Assessment/Plan Assessment/Plan Additional Assessment/Plan 1. Acute kidney injury secondary to prerenal azotemia. 2. Severe hyponatremia, likely secondary to hypovolemic hyponatremia. 3. Acute hyperkalemia secondary to acute kidney injury and moderate to severe dehydration. 4. Moderate to severe dehydration. 5. 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 6. Hypomagnesemia s/p replacement before - still low 1.5 PLAN: magnesium sulfate 1 gram IV x 1 dose now Cr normal will continue to follow up on patient Consultation Date/Type/Reason Admit Date/Time Sep 05, 2016 at 23:14 Initial Consult Date Aug Type of Consultation: NEPHROLOGY Reason for Consultation acute kidney injury,hyperkalemia Referring Provider: CARLOS RODRIGUEZ MD 24 HR Interval Summary Free Text/Dictation no acute events, Cr normal Exam/Review of Systems Vital Signs Vitals Vital Signs Date Time Temp Pulse Resp B/P Pulse Ox O2 Delivery O2 Flow Rate FiO2 09/18/16 19:58 97.9 134 22 105/73 98 09/15/16 08:20 Room Air Intake and Output 09/17/16 09/17/16 09/18/16 15:00 23:00 07:00 Intake Total 840 ml 300 ml Output Total 900 ml 400 ml Balance -60 ml -100 ml Exam GENERAL: Awake, alert, in no acute distress. NECK: Supple, no JVD, no lymphadenopathy. Oral mucosa pink and moist. CHEST: Lungs clear bilaterally, no rhonchi, no wheezes. HEART: S1, S2, tachycardia, no murmur. ABDOMEN: Soft, nontender, nondistended. Right lower quadrant ileostomy is present. Constitutional: non-verbal Results Result Diagram: 09/18/16 0520 09/18/16 0520 Results 24 hrs Laboratory Tests Test 09/18/16 05:20 Anion Gap 18 H Basophils # 0.1 Basophils % 0.6 Blood Urea Nitrogen 32 H Calcium Level 9.6 Carbon Dioxide Level 25 Chloride Level 98 Creatinine 0.89 Eosinophils # 2.0 H Eosinophils % 14.8 H Glucose Level 130 Hematocrit 36.8 L Hemoglobin 12.8 Lymphocytes # 0.7 L Lymphocytes % 5.3 L Magnesium Level 1.5 L Mean Corpuscular Hemoglobin 31.8 Mean Corpuscular Hemoglobin Concent 34.8 Mean Corpuscular Volume 91.3 Mean Platelet Volume 10.0 Monocytes # 0.7 Monocytes % 5.3 Neutrophils # 9.9 H Neutrophils % 73.0 Nucleated Red Blood Cells # 0.0 Nucleated Red Blood Cells % 0.0 Platelet Count 506 #H Potassium Level 3.6 Red Blood Count 4.03 L Red Cell Distribution Width 13.8 Sodium Level 137 White Blood Count 13.5 #H Medications Medications Current Medications Cyanocobalamin (Vitamin B12 Inj) 1,000 mcg Q28D IM Last administered on 00:09; Admin Dose 1,000 MCG; Start 09/05/16 at 23:30 Folic Acid (Folic Acid) 1 mg DAILY PO Last administered on 09/18/16 09:35; Admin Dose 1 MG; Start 09/06/16 at 09:00 Hydroxyzine Pamoate (Vistaril) 25 mg QHS PRN PO ITCHING Last administered on 23:10; Admin Dose 25 MG; Start 09/05/16 at 23:30 Ondansetron HCl (Zofran Inj) 4 mg Q6H PRN IV NAUSEA AND/OR VOMITING Last administered on 09/16/16 23:35; Admin Dose 4 MG; Start 09/05/16 at 23:30 Aspirin (Aspirin) 81 mg DAILY PO Last administered on 09/18/16 09:34; Admin Dose 81 MG; Start 09/06/16 at 09:00 Acetaminophen (Tylenol Tab) 650 mg Q6H PRN PO PAIN LEVEL 1-3 OR FEVER Last administered on 09/09/16 08:35; Admin Dose 650 MG; Start 09/05/16 at 23:30 Morphine Sulfate (morphine) 2 mg Q4H PRN IV PAIN LEVEL 7-10 Last administered on 09/15/16 01:06; Admin Dose 2 MG; Start 09/05/16 at 23:30 Enoxaparin Sodium (Lovenox) 30 mg DAILY SC Last administered on 09/18/16 12:53 ; Admin Dose 30 MG; Start 09/06/16 at 09:00 Mupirocin (Bactroban) 1 applic BID TOP Last administered on 09/18/16 09:35; Admin Dose 1 APPLIC; Start 09/08/16 at 21:00 Doxycycline Hyclate (Vibramycin) 100 mg BID PO Last administered on 09/18/16 09 :34; Admin Dose 100 MG; Start 09/12/16 at 21:00; Stop 09/19/16 at 09:01 Famotidine (Pepcid) 20 mg BID PO Last administered on 09/18/16 09:34; Admin Dose 20 MG; Start 09/14/16 at 21:00 ROHAN VELÁZQUEZ MD Sep 18, 2016 21:19
[2016-09-18] MEDS ORDERED: MAGNESIUM SULFATE 1 GM/D5W 100 ML IVPB ONE (21:30)
[2016-09-18] MEDS: hydrOXYzine PAMOATE 25 MG CAP PO PRN (22:00)
[2016-09-19 05:42] LABS: ADD SCAN DIFF NO
[2016-09-19 05:44] LABS: BASOPHIL # 0.1 10^3/ul (0.0-0.1); BASOPHILS % 0.6 % (0.0-2.0); HEMATOCRIT 40.3 % (37.0-47.0); HEMOGLOBIN 13.8 g/dl (12.0-16.0); LYMPHOCYTES # 0.7 10^3/ul (0.8-2.9); LYMPHOCYTES % 6.5 % (15.0-51.0); MEAN CORPUSCULAR HEMOGLOBIN 31.7 pg (29.0-33.0); MEAN CORPUSCULAR HGB CONC 34.2 g/dl (32.0-37.0); MEAN CORPUSCULAR VOLUME 92.6 fl (82.0-101.0); MEAN PLATELET VOLUME 9.6 fl (7.4-10.4); MONOCYTE # 0.3 10^3/ul (0.3-0.9); MONOCYTES % 2.6 % (0.0-11.0); NEUTROPHIL # 7.8 10^3/ul (1.6-7.5); NEUTROPHILS % 71.3 % (39.0-77.0); PLATELET COUNT 501 10^3/UL (140-415); RED BLOOD COUNT 4.35 10^6/ul (4.20-5.40); RED CELL DISTRIBUTION WIDTH 13.7 % (11.5-14.5); WHITE BLOOD COUNT 10.9 10^3/ul (4.8-10.8)
[2016-09-19 06:06] LABS: CREATININE 0.91 mg/dl (0.44-1.00)
[2016-09-19 07:51] VITALS: BP 93/61; RESP 18
[2016-09-19] MEDS: ASPIRIN 81 MG TAB PO SCH (09:52)
[2016-09-19] MEDS: MUPIROCIN 2% 22 GM OINT TOP SCH ×2 (09:52→20:43)
[2016-09-19] MEDS: FAMOTIDINE 20 MG TAB PO SCH ×2 (09:52→20:43)
[2016-09-19] MEDS: DOXYCYCLINE 100 MG TAB PO SCH (09:52)
[2016-09-19] MEDS: FOLIC ACID 1 MG TAB PO SCH (09:52)
[2016-09-19] MEDS: ENOXAPARIN 30 MG/0.3 ML SYG SC SCH (12:06)
--- NOTE | 2016-09-19 14:01 | PN ---
Date/Time of Note Date/Time of Note DATE: 09/19/16 TIME: 13:59 Assessment/Plan VTE Prophylaxis VTE Prophylaxis Intervention: other Lines/Catheters IV Catheter Type (from [facility]): Saline Lock Urinary Cath still in place: No Assessment/Plan Assessment/Plan 1. Headache and dizziness. CT is negative for any acute abnormality. Patient is awake, alert and oriented x3. 2. Hyperkalemia secondary to dehydration. 3. Hyponatremia. 4. Acute kidney injury. Dr. Spain is following in nephrology consultation. Continue IV fluids. 5. Ileostomy. 6. 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 8. Ileostomy leakage,Dr Hughes is asked to see pt in general surgery consultation. Anticipate d/c when pt has stable electrolytes while maintaining PO diet. Plan of care d/w pt, all questions answered. Further recommendations based on clinical course. Plan of care discussed with Dr. Paez. Subjective 24 Hr Interval Summary Eyes: no complaints ENT: no complaints Respiratory: no complaints Cardiovascular: no complaints Gastrointestinal: other Genitourinary: no complaints Musculoskeletal: no complaints Skin: no complaints Neurologic: no complaints Endocrine: no complaints Lymphatic: no complaints Psychological: no complaints Immunologic: no complaints Exam/Review of Systems Vital Signs Vitals Vital Signs Date Time Temp Pulse Resp B/P Pulse Ox O2 Delivery O2 Flow Rate FiO2 09/19/16 07:51 97.9 110 18 93/61 100 09/15/16 08:20 Room Air Intake and Output 09/18/16 09/18/16 09/19/16 15:00 23:00 07:00 Intake Total 720 ml 1660 ml Output Total 1200 ml 350 ml Balance -480 ml 1310 ml Results Result Diagram: 09/19/16 0507 09/19/16 0507 Results 24 hrs Laboratory Tests Test 09/19/16 05:07 Anion Gap 19 H Basophils # 0.1 Basophils % 0.6 Blood Urea Nitrogen 33 H Calcium Level 10.0 Carbon Dioxide Level 24 Chloride Level 98 Creatinine 0.91 Eosinophils # 2.0 H Eosinophils % 18.0 H Glucose Level 100 Hematocrit 40.3 Hemoglobin 13.8 Lymphocytes # 0.7 L Lymphocytes % 6.5 L Magnesium Level 1.9 Mean Corpuscular Hemoglobin 31.7 Mean Corpuscular Hemoglobin Concent 34.2 Mean Corpuscular Volume 92.6 Mean Platelet Volume 9.6 Monocytes # 0.3 Monocytes % 2.6 Neutrophils # 7.8 H Neutrophils % 71.3 Nucleated Red Blood Cells # 0.0 Nucleated Red Blood Cells % 0.0 Platelet Count 501 H Potassium Level 4.0 Red Blood Count 4.35 Red Cell Distribution Width 13.7 Sodium Level 137 White Blood Count 10.9 H Medications Medications Current Medications Cyanocobalamin (Vitamin B12 Inj) 1,000 mcg Q28D IM Last administered on 00:09; Admin Dose 1,000 MCG; Start 09/05/16 at 23:30 Folic Acid (Folic Acid) 1 mg DAILY PO Last administered on 09/19/16 09:52; Admin Dose 1 MG; Start 09/06/16 at 09:00 Hydroxyzine Pamoate (Vistaril) 25 mg QHS PRN PO ITCHING Last administered on 22:00; Admin Dose 25 MG; Start 09/05/16 at 23:30 Ondansetron HCl (Zofran Inj) 4 mg Q6H PRN IV NAUSEA AND/OR VOMITING Last administered on 09/16/16 23:35; Admin Dose 4 MG; Start 09/05/16 at 23:30 Aspirin (Aspirin) 81 mg DAILY PO Last administered on 09/19/16 09:52; Admin Dose 81 MG; Start 09/06/16 at 09:00 Acetaminophen (Tylenol Tab) 650 mg Q6H PRN PO PAIN LEVEL 1-3 OR FEVER Last administered on 09/09/16 08:35; Admin Dose 650 MG; Start 09/05/16 at 23:30 Morphine Sulfate (morphine) 2 mg Q4H PRN IV PAIN LEVEL 7-10 Last administered on 09/15/16 01:06; Admin Dose 2 MG; Start 09/05/16 at 23:30 Enoxaparin Sodium (Lovenox) 30 mg DAILY SC Last administered on 09/19/16 12:06 ; Admin Dose 30 MG; Start 09/06/16 at 09:00 Mupirocin (Bactroban) 1 applic BID TOP Last administered on 09/19/16 09:52; Admin Dose 1 APPLIC; Start 09/08/16 at 21:00 Famotidine (Pepcid) 20 mg BID PO Last administered on 09/19/16t 09:52; Admin Dose 20 MG; Start 09/14/16 at 21:00 DEVENDRA GOMES Sep 19, 2016 14:00
--- NOTE | 2016-09-19 16:58 | CONS ---
DATE OF ADMISSION: 09/05/2016 DATE OF CONSULTATION: 09/19/2016 TYPE OF CONSULTATION: Surgical. REQUESTING PHYSICIAN: Dr. Paez's service. REASON FOR CONSULTATION: Problem with "leaking ileostomy." HISTORY OF PRESENT ILLNESS: This is a 41-year-old female with history of Hirschsprung's disease, st atus post colectomy with ileostomy and the patient presented this time to the emergency room due to a headache and dizziness for a couple of days. The patient has a history of chronic headaches. The patient also has a history of electrolyte imbalance and the patient is on potassium and magnesium s upplements at home. The patient was admitted through the emergency room for correction of the potas sium and sodium. The patient had elevation of WBC to 12,700. The patient was managed for hyperkal emia in the emergency room to some extent and then was admitted. PAST MEDICAL HISTORY: A few times has admitted to this hospital for electrolyte imbalance. PAST SURGICAL HISTORY: History of several abdominal operations including total colectomy as they sa y and placement of ileostomy. FAMILY HISTORY: Mother is positive for diabetes. SOCIAL HISTORY: The patient lives with her mom. ALLERGIES: THE PATIENT IS ALLERGIC TO: 1. CODEINE. 2. FERROUS SULFATE. MEDICATIONS: The patient is on: 1. Vistaril. 2. Albuterol. 3. Folic acid. 4. Pepcid. 5. Vitamin B12. 6. Potassium chloride. 7. Magnesium in the form of Mag 64. REVIEW OF SYSTEMS: Except what was mentioned otherwise is negative. PHYSICAL EXAMINATION: GENERAL: The patient is alert, awake, oriented, looks comfortable. VITAL SIGNS: Today temperature is 97.9, heart rate has been recorded at 110, respirations 18, blood pressure 93/61, saturation 100% on room air. HEENT: Head: Normocephalic. Eyes: Pupils equally round, reactive to light and accommodation. Ext raocular muscles full range of motion. NECK: Trachea is in midline. No thyroid enlargement. No adenopathy. HEART: Regular rate and rhythm. No murmur. LUNGS: Clear to auscultation. ABDOMEN: There is an ileostomy located in the almost right upper quadrant. Abdomen is soft. There is a wide scar in midline operation. Sign of several operations in the past and probably infection after operation. The ileostomy is very nicely fashioned and is intact. There is no hole in the il eostomy. It is not in the right lower quadrant, probably when they put in childhood as a baby it wa s in the right lower quadrant, but now that the patient has grown up, it has moved to the right uppe r quadrant. The upper part of the ileostomy is fairly close to the subcostal ribs and cartilage. Th e skin around the medial side of the ileostomy is depressed and subcutaneous fat is replaced by old scar. That is why when they put the old fashion ileostomy bag, the stool can leak from underneath i t and come out from under the tapes. RECTAL: The patient has anus intact. I did a digital rectal examination. The sphincter tone is in tact and I could reach up to 6 to 7 cm anal canal, probably distal rectal ulcer is there. LOWER EXTREMITIES: Within normal limits. LABORATORY DATA: Today WBC 10,900 with neutrophils 71%. Hemoglobin is 13.8, hematocrit 40.3. Eosi nophil is 2%, slightly elevated. Chemistry today: Sodium 137, potassium 4, BUN 33, creatinine 0.91 . Magnesium is 1.9, normal. IMAGING: The patient has had chest x-ray, brain CT scan and renal ultrasound done as well. IMPRESSION: A 41-year-old female who had some kind of colostomy, possibly total colostomy and end i leostomy as a baby due to Hirschsprung's disease at [facility] 41 years ago. The patient has been living w ith this ileostomy for 40, 41 years. Surgically, the ileostomy is intact and very good, nicely fash ioned, but the problem is that the skin around it has some creases and the mounting of the bag aroun d and over the ileostomy and over onto there skin cannot be completely done, and that is why loose s tool can leak from underneath that and appear in the midline of the abdomen. I discussed with the o stomy nurse and she said that she has seen the patient and they advised them to use new kind of ileo stomy bags that they can provide for the patient, but the patient's mother does not like it and want s to use the old one that they have been using. As long as they are using that, this is going to co ntinue to leak. Our suggestion is that either they follow the recommendations of the ostomy nurse # 1, or #2, they refer to a surgery center like [facility], where they did her did primary operation, maybe i n that place somebody would like to replace this ileostomy to the right lower quadrant where the ski n is normal and/or #3, some possibility that maybe they can actually take it down and put a J-pouch and connect it to the distal anus and reconnect the patient back as a normal route of defecation. I am not sure about this but the patient will talk to the mother, and they may have to go to [facility] to t he colorectal clinic and see what they can do for them. Thank you for the consultation. Dictated By: JAYNE CHANG/CRISTINA Conf#: [id number] DID#: [id number]
[2016-09-19 19:54] VITALS: BP 104/62; RESP 16
[2016-09-19] MEDS: hydrOXYzine PAMOATE 25 MG CAP PO PRN (20:43)
--- NOTE | 2016-09-19 21:56 | CONS ---
Date/Time of Note Date/Time of Note DATE: 09/19/16 TIME: 21:55 Assessment/Plan Assessment/Plan Additional Assessment/Plan 1. Acute kidney injury secondary to prerenal azotemia. 2. Severe hyponatremia, likely secondary to hypovolemic hyponatremia. 3. Acute hyperkalemia secondary to acute kidney injury and moderate to severe dehydration. 4. Moderate to severe dehydration. 5. 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 6. Hypomagnesemia s/p replacement before - still low 1.5 PLAN: s/p magnesium replacement Cr normal will continue to follow up on patient Consultation Date/Type/Reason Admit Date/Time Sep 05, 2016 at 23:14 Initial Consult Date Aug Type of Consultation: NEPHROLOGY Referring Provider: CARLOS RODRIGUEZ MD 24 HR Interval Summary Free Text/Dictation no colostomy bag leaking, K low today Exam/Review of Systems Vital Signs Vitals Vital Signs Date Time Temp Pulse Resp B/P Pulse Ox O2 Delivery O2 Flow Rate FiO2 09/19/16 19:54 98.3 112 16 104/62 100 09/15/16 08:20 Room Air Intake and Output 09/18/16 09/18/16 09/19/16 15:00 23:00 07:00 Intake Total 720 ml 1660 ml Output Total 1200 ml 350 ml Balance -480 ml 1310 ml Results Result Diagram: 09/19/16 0507 09/19/16 0507 Results 24 hrs Laboratory Tests Test 09/19/16 05:07 Anion Gap 19 H Basophils # 0.1 Basophils % 0.6 Blood Urea Nitrogen 33 H Calcium Level 10.0 Carbon Dioxide Level 24 Chloride Level 98 Creatinine 0.91 Eosinophils # 2.0 H Eosinophils % 18.0 H Glucose Level 100 Hematocrit 40.3 Hemoglobin 13.8 Lymphocytes # 0.7 L Lymphocytes % 6.5 L Magnesium Level 1.9 Mean Corpuscular Hemoglobin 31.7 Mean Corpuscular Hemoglobin Concent 34.2 Mean Corpuscular Volume 92.6 Mean Platelet Volume 9.6 Monocytes # 0.3 Monocytes % 2.6 Neutrophils # 7.8 H Neutrophils % 71.3 Nucleated Red Blood Cells # 0.0 Nucleated Red Blood Cells % 0.0 Platelet Count 501 H Potassium Level 4.0 Red Blood Count 4.35 Red Cell Distribution Width 13.7 Sodium Level 137 White Blood Count 10.9 H Medications Medications Current Medications Cyanocobalamin (Vitamin B12 Inj) 1,000 mcg Q28D IM Last administered on 00:09; Admin Dose 1,000 MCG; Start 09/05/16 at 23:30 Folic Acid (Folic Acid) 1 mg DAILY PO Last administered on 09/19/16 09:52; Admin Dose 1 MG; Start 09/06/16 at 09:00 Hydroxyzine Pamoate (Vistaril) 25 mg QHS PRN PO ITCHING Last administered on 20:43; Admin Dose 25 MG; Start 09/05/16 at 23:30 Ondansetron HCl (Zofran Inj) 4 mg Q6H PRN IV NAUSEA AND/OR VOMITING Last administered on 09/16/16 23:35; Admin Dose 4 MG; Start 09/05/16 at 23:30 Aspirin (Aspirin) 81 mg DAILY PO Last administered on 09/19/16 09:52; Admin Dose 81 MG; Start 09/06/16 at 09:00 Acetaminophen (Tylenol Tab) 650 mg Q6H PRN PO PAIN LEVEL 1-3 OR FEVER Last administered on 09/09/16 08:35; Admin Dose 650 MG; Start 09/05/16 at 23:30 Morphine Sulfate (morphine) 2 mg Q4H PRN IV PAIN LEVEL 7-10 Last administered on 09/15/16 01:06; Admin Dose 2 MG; Start 09/05/16 at 23:30 Enoxaparin Sodium (Lovenox) 30 mg DAILY SC Last administered on 09/19/16 12:06 ; Admin Dose 30 MG; Start 09/06/16 at 09:00 Mupirocin (Bactroban) 1 applic BID TOP Last administered on 09/19/16 20:43; Admin Dose 1 APPLIC; Start 09/08/16 at 21:00 Famotidine (Pepcid) 20 mg BID PO Last administered on 09/19/16 20:43; Admin Dose 20 MG; Start 09/14/16 at 21:00 ROHAN VELÁZQUEZ MD Sep 19, 2016 21:56
[2016-09-20 06:27] LABS: ADD SCAN DIFF NO
[2016-09-20 06:50] LABS: BASOPHIL # 0.1 10^3/ul (0.0-0.1); BASOPHILS % 0.6 % (0.0-2.0); EOSINOPHILS # 1.8 10^3/ul (0.0-0.5); HEMATOCRIT 35.5 % (37.0-47.0); HEMOGLOBIN 12.2 g/dl (12.0-16.0); MEAN CORPUSCULAR HEMOGLOBIN 31.7 pg (29.0-33.0); MEAN CORPUSCULAR HGB CONC 34.4 g/dl (32.0-37.0); MEAN CORPUSCULAR VOLUME 92.2 fl (82.0-101.0); MEAN PLATELET VOLUME 9.3 fl (7.4-10.4); MONOCYTE # 0.5 10^3/ul (0.3-0.9); MONOCYTES % 4.8 % (0.0-11.0); NEUTROPHIL # 7.4 10^3/ul (1.6-7.5); PLATELET COUNT 579 10^3/UL (140-415); RED BLOOD COUNT 3.85 10^6/ul (4.20-5.40); RED CELL DISTRIBUTION WIDTH 13.9 % (11.5-14.5); WHITE BLOOD COUNT 10.9 10^3/ul (4.8-10.8)
[2016-09-20 06:51] LABS: POTASSIUM 3.9 mmol/L (3.5-5.1)
[2016-09-20 06:53] LABS: CREATININE 0.9 mg/dl (0.44-1.00)
[2016-09-20 06:54] LABS: CALCIUM 9.9 mg/dl (8.4-10.2)
[2016-09-20 07:11] LABS: EOSINOPHILS % 16.6 % (0.0-7.0)
[2016-09-20 08:04] VITALS: BP 106/57; RESP 18
[2016-09-20] MEDS: ASPIRIN 81 MG TAB PO SCH (09:51)
[2016-09-20] MEDS: FOLIC ACID 1 MG TAB PO SCH (09:52)
[2016-09-20] MEDS: FAMOTIDINE 20 MG TAB PO SCH (09:52)
[2016-09-20] MEDS: MUPIROCIN 2% 22 GM OINT TOP SCH (09:52)
[2016-09-20] MEDS: ENOXAPARIN 30 MG/0.3 ML SYG SC SCH (10:10)
--- NOTE | 2016-09-20 11:13 | CONS ---
Date/Time of Note Date/Time of Note DATE: 09/20/16 TIME: 11:12 Assessment/Plan Assessment/Plan Additional Assessment/Plan 1. Acute kidney injury secondary to prerenal azotemia. 2. Severe hyponatremia, likely secondary to hypovolemic hyponatremia. 3. Acute hyperkalemia secondary to acute kidney injury and moderate to severe dehydration. 4. Moderate to severe dehydration. 5. 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 6. Hypomagnesemia s/p replacement before - still low 1.5 PLAN: s/p magnesium replacement s/p evaluation by general surgery Cr normal will continue to follow up on patient Consultation Date/Type/Reason Admit Date/Time Sep 05, 2016 at 23:14 Initial Consult Date Aug Type of Consultation: NEPHROLOGY Referring Provider: CARLOS RODRIGUEZ MD 24 HR Interval Summary Free Text/Dictation s/p evaluation by GEneral surgery Exam/Review of Systems Vital Signs Vitals Vital Signs Date Time Temp Pulse Resp B/P Pulse Ox O2 Delivery O2 Flow Rate FiO2 09/20/16 08:04 97.6 117 18 106/57 100 Intake and Output 09/19/16 09/19/16 09/20/16 15:00 23:00 07:00 Intake Total 1200 ml 800 ml Output Total 500 ml 300 ml Balance 700 ml 500 ml Exam GENERAL: Awake, alert, in no acute distress. NECK: Supple, no JVD, no lymphadenopathy. Oral mucosa pink and moist. CHEST: Lungs clear bilaterally, no rhonchi, no wheezes. HEART: S1, S2, tachycardia, no murmur. ABDOMEN: Soft, nontender, nondistended. Right lower quadrant ileostomy is present. Results Result Diagram: 09/20/16 0530 09/20/16 0530 Results 24 hrs Laboratory Tests Test 09/20/16 05:30 Anion Gap 18 H Basophils # 0.1 Basophils % 0.6 Blood Urea Nitrogen 38 H Calcium Level 9.9 Carbon Dioxide Level 25 Chloride Level 100 Creatinine 0.90 Eosinophils # 1.8 H Eosinophils % 16.6 H Glucose Level 67 #L Hematocrit 35.5 L Hemoglobin 12.2 Lymphocytes # 1.0 Lymphocytes % 9.0 L Mean Corpuscular Hemoglobin 31.7 Mean Corpuscular Hemoglobin Concent 34.4 Mean Corpuscular Volume 92.2 Mean Platelet Volume 9.3 Monocytes # 0.5 Monocytes % 4.8 Neutrophils # 7.4 Neutrophils % 68.0 Nucleated Red Blood Cells # 0.0 Nucleated Red Blood Cells % 0.0 Platelet Count 579 H Potassium Level 3.9 Red Blood Count 3.85 L Red Cell Distribution Width 13.9 Sodium Level 139 White Blood Count 10.9 H Medications Medications Current Medications Cyanocobalamin (Vitamin B12 Inj) 1,000 mcg Q28D IM Last administered on 00:09; Admin Dose 1,000 MCG; Start 09/05/16 at 23:30 Folic Acid (Folic Acid) 1 mg DAILY PO Last administered on 09/20/16 09:52; Admin Dose 1 MG; Start 09/06/16 at 09:00 Hydroxyzine Pamoate (Vistaril) 25 mg QHS PRN PO ITCHING Last administered on 20:43; Admin Dose 25 MG; Start 09/05/16 at 23:30 Ondansetron HCl (Zofran Inj) 4 mg Q6H PRN IV NAUSEA AND/OR VOMITING Last administered on 09/16/16 23:35; Admin Dose 4 MG; Start 09/05/16 at 23:30 Aspirin (Aspirin) 81 mg DAILY PO Last administered on 09/20/16 09:51; Admin Dose 81 MG; Start 09/06/16 at 09:00 Acetaminophen (Tylenol Tab) 650 mg Q6H PRN PO PAIN LEVEL 1-3 OR FEVER Last administered on 09/09/16 08:35; Admin Dose 650 MG; Start 09/05/16 at 23:30 Morphine Sulfate (morphine) 2 mg Q4H PRN IV PAIN LEVEL 7-10 Last administered on 09/15/16 01:06; Admin Dose 2 MG; Start 09/05/16 at 23:30 Enoxaparin Sodium (Lovenox) 30 mg DAILY SC Last administered on 09/20/16 10:10 ; Admin Dose 30 MG; Start 09/06/16 at 09:00 Mupirocin (Bactroban) 1 applic BID TOP Last administered on 09/20/16 09:52; Admin Dose 1 APPLIC; Start 09/08/16 at 21:00 Famotidine (Pepcid) 20 mg BID PO Last administered on 09/20/16t 09:52; Admin Dose 20 MG; Start 09/14/16 at 21:00 ROHAN VELÁZQUEZ MD Sep 20, 2016 11:13
[2016-09-20] MEDS ORDERED: SLOMAG PO (16:08)
--- NOTE | 2016-09-22 21:55 | DS ---
DATE OF ADMISSION: 09/05/2016 DATE OF DISCHARGE: 09/20/2016 FINAL DIAGNOSES: 1. Headache and dizziness. CT is negative for any acute abnormality. 2. Hyperkalemia secondary to dehydration. 3. Hyponatremia, resolved. 4. Acute kidney injury, resolved. 5. Ileostomy. 6. Hirschsprung disease, status post multiple abdominal surgeries in the past. 7. Methicillin-resistant Staphylococcus aureus of nares, status post treatment. 8. Ileostomy leakage, status post evaluation by General Surgery. BRIEF HISTORY: The patient is an unfortunate 41-year-old female with history of Hirschsprung diseas e, status post ileostomy, multiple abdominal surgeries when patient was a child. The patient presen chel to the emergency room with complaints of dysuria and dizziness and headache. The patient was no chel to have leukocytosis and also hyponatremia with sodium being 119 and potassium being 6.1. The p atient was given Kayexalate for hypernatremia, also given Zofran p.r.n. for nausea and was given 1 L of normal saline, and patient was admitted for further evaluation and management. HOSPITAL COURSE: The patient was started on IV fluids. Electrolytes were closely monitored. The p atient was evaluated and followed by Dr. Spain in nephrology consultation. The patient had acute ki dney injury with elevated creatinine to 1.52. Gradually, patient's condition improved. The patien t continues to have electrolyte imbalances with low sodium and low magnesium. The patient was getti ng supplements and IV fluids. Eventually patient's IV fluid was stopped. The patient was able to t olerate diet and electrolytes within normal limits. The patient underwent a CT scan in the emergenc y room on admission which was negative. The patient's dizziness and headache resolved. The patient had ileostomy leakage and was evaluated by Dr. Saha, who was covering for Dr. Hughes in general [facility] consultation with recommendation to follow up for possible new change in ileostomy to differen t side by surgeon at [facility] who had done initial ileostomy creation, and the patient was also arranged for home health for ileostomy care. The patient's condition is improved, and patient was discharged home. CONDITION ON DISCHARGE: Hemodynamically stable. ACTIVITY: As patient tolerates. DIET: Regular diet. MEDICATION ON DISCHARGE: The patient is given prescription for Mag-64 p.o. b.i.d. for 14 days. The patient to continue her home medications of: 1. Albuterol. 2. Vitamin B12. 3. Pepcid. 4. Folic acid. 5. Vistaril. FOLLOWUP: The patient is instructed to follow up with her primary care physician in 1 to 2 weeks an d BMP and magnesium in 1 week. Interdisciplinary plan of care was established for this patient. Plan of care was discussed with Dr Fani Rodriguez. Dictated By: ROMI ESPINO CARTOGRAPHY PROFESSOR for CARLOS RODRIGUEZ MD SR/NTS Conf#: [id number] DID#: [id number]
== END 2016-09-20 21:00 | disposition home health service (06) | DRG 683 ==
LOC: E/R 19:52 → TEL 23:14 → MS2 09-15 02:14
PROVIDERS: ADMIT Internal Medicine; ATTEND Internal Medicine
DX: N17.9 Acute kidney failure, unspecified (principal); E87.1 Hypo-osmolality and hyponatremia; E87.5 Hyperkalemia; R51 Headache; R42 Dizziness and giddiness; D47.3 Essential (hemorrhagic) thrombocythemia; Z88.5 Allergy status to narcotic agent; Z93.2 Ileostomy status; Z88.8 Allergy status to other drugs, medicaments and biological substances; Z22.322 Carrier or suspected carrier of Methicillin resistant Staphylococcus aureus
CPT/HCPCS: 36415; 70450; 71010; 76775; 80048; 80053; 81003; 82550; 82553; 83690; 83735; 84484; 84560; 85025; 85610; 85730; 87040; 87081; 87086; 90686; 93005; 96372; 96374; 96375; J1650; J1815; J2270; J2405; J3420; J3475; J7030

== ENCOUNTER 2016-10-26 16:11 | Inpatient (IN) | payer OTHER ==
[~2016-10-26] VITALS: Ht 152.4 cm; Wt 37.1 kg
[~2016-10-26 16:11] MED LIST changes: -LEVO500T72 PO; -POTA20TA96 PO
[2016-10-26] MEDS ORDERED: POTA-57 PO (17:02)
[2016-10-26] MEDS ORDERED: morphine 4 MG/ML VIAL IV STA (17:05)
[2016-10-26] MEDS ORDERED: SOD CHLORIDE 0.9% 1,000 ML IV STA (17:05)
[2016-10-26] MEDS ORDERED: ONDANSETRON 4 MG INJ IV STA (17:05)
[2016-10-26 17:29] LABS: ADD SCAN DIFF NO
[2016-10-26 17:31] LABS: ABNORMAL IP MESSAGE 1; HEMATOCRIT 34.5 % (37.0-47.0); HEMOGLOBIN 12.7 g/dl (12.0-16.0); MEAN CORPUSCULAR HEMOGLOBIN 31.8 pg (29.0-33.0); MEAN CORPUSCULAR HGB CONC 36.8 g/dl (32.0-37.0); MEAN CORPUSCULAR VOLUME 86.3 fl (82.0-101.0); MEAN PLATELET VOLUME 8.6 fl (7.4-10.4); RED CELL DISTRIBUTION WIDTH 12.3 % (11.5-14.5); WHITE BLOOD COUNT 12.3 10^3/ul (4.8-10.8)
[2016-10-26 18:24] VITALS: TEMP 98.6
[2016-10-26 18:34] LABS: EOSINOPHILS # 0.1 10^3/ul (0.0-0.5); LYMPHOCYTES # 0.5 10^3/ul (0.8-2.9); MONOCYTE # 0.4 10^3/ul (0.3-0.9); NEUTROPHIL # 11.3 10^3/ul (1.6-7.5)
[2016-10-26 18:42] LABS: ALBUMIN 4.3 g/dl (3.3-4.9); ALBUMIN/GLOBULIN RATIO 1.26; BILIRUBIN,INDIRECT 0.3 mg/dl (0-1.1); BILIRUBIN,TOTAL 0.3 mg/dl (0.2-1.3); CALCIUM 9.2 mg/dl (8.4-10.2); CREATININE 2.52 mg/dl (0.44-1.00); MAGNESIUM 1.6 mg/dl (1.7-2.5); TOTAL PROTEIN 7.7 g/dl (6.1-8.1)
[2016-10-26 18:54] LABS: POTASSIUM 8.4 mmol/L (3.5-5.1)
--- NOTE | 2016-10-26 19:05 | RADRPT ---
PROCEDURE: CT Abdomen and Pelvis without contrast. CLINICAL INDICATION: Abdominal pain. TECHNIQUE: CT scan of the abdomen and pelvis without contrast was performed on a multidetector hig h-resolution CT scanner. The patient was scanned without intravenous contrast. Coronal and sagittal reformatted images were obtained from the axial source images. Images were reviewed on a high-resol [employer] PACS workstation. One or more of the following dose reduction techniques were used: Automated exposure control, adjustment of the mA and/or kV according to patient size, use of iterative recon struction technique. The total exam CTDI equals 3.92 mGy and the total exam DLP equals 199.76 mGy-c m. COMPARISON: CT from 08/15/2016 FINDINGS: Lungs: Minimal dependent atelectasis at right lung base posteriorly. There is a new 1.1 x 0.8 cm nod ule in the posterior right lower lobe. Liver: No abnormality seen. Gallbladder: No gallbladder seen suggestive of cholecystectomy. Spleen: No abnormality seen. Stomach: Radiopaque likely tablet in the gastric fundus. Pancreas: No abnormality seen. Adrenals: No abnormality seen. Kidneys: No abnormality seen. Abdominal aorta: No aneurysm seen. Lymph nodes: No enlarged lymph nodes are seen. Small bowel: There is a right sided ileostomy. There are dilated small bowel loops measuring up to a pproximately 4 cm containing fecalized material in the right lower abdomen with nondilated small bow el loops as well which could be secondary to small bowel ileus. No definite transition from dilated to nondilated small bowel loops are seen. Colon: The patient appears to be status post colectomy. There is the suggestion of a blind loop of b owel in the rectal region. Appendix: Not seen Bladder: No abnormality seen Pelvic organs: No abnormality seen Ascites: None seen. Osseous structures: Mild degenerative changes at sacroiliac joints. Very small scattered likely bone islands. Schmorl's nodes in thoracolumbar spine. IMPRESSION: 1. Status post colectomy with right sided ileostomy. Dilated small bowel loops measuring up to appr oximately 4 cm in the right mid abdomen with nondilated small bowel loops as well which could be sec ondary to small bowel ileus. No definite transition from dilated to nondilated small bowel loops are seen. Small bowel obstruction is possible. 2. New 1.1 x 0.8 cm right lower lobe pulmonary nodule. Recommend dedicated CT chest for further ev aluation. RPTAT: HRAA .Anil Chapa MD, Date Time Electronically viewed and signed by .Anil Chapa MD, on 10/26/2016 19:05 .A/
[2016-10-26] MEDS ORDERED: NA BICARBONATE 8.4% 50 ML SYG IV STA (20:10)
[2016-10-26] MEDS ORDERED: INSULIN REGULAR 10 ML INJ IV STA (20:10)
[2016-10-26] MEDS ORDERED: NA POLYST SULFON 15 GM/60 ML BTL PO STA (20:10)
--- NOTE | 2016-10-26 20:23 | ERA ---
ER Documentation Chief Complaint Date/Time DATE: 10/26/16 TIME: 20:15 Chief Complaint VOMITING,ABDOMINAL PAIN,NECK PAIN.HX OF HIRSCHPRUNG'S DSE.ILEOSTOMY HPI This is a 41-year-old female with a history of Hirschsprung's disease with an ileostomy has complaints of nausea and vomiting with diffuse abdominal pain. She says she has chronic episodes of the same. She also says she has chronic episodes of hyponatremia and hyperkalemia. She says that she is seeing a little bit of decrease in output in her ileostomy bag over the past 2 days and she will see entire whole pills that she is taken earlier in the morning passed through into the bag undigested. She has had no fever no chest pain shortness of breath no cough. No blood in her ostomy no blood in her vomitus. ROS All systems reviewed and are negative except as per history of present illness. Medications Home Meds Active Scripts Magnesium Chloride* (Mag 64*) 64 Mg Tabsr, 64 MG PO BID for 14 Days, TAB Prov:ROMI ESPINO 09/20/16 Reported Medications Potassium Chloride* (Klor-Con*) 20 Meq Tabsr, 10 MEQ PO DAILY, TAB.SA 10/26/16 Hydroxyzine Pamoate* (Vistaril*) 25 Mg Capsule, 25 MG PO QHS Y for ITCHING, CAP 11/02/15 Albuterol Sulfate* (Proair HFA*) 8.5 Gm Hfa.aer.ad, 2 PUFF INH Q4H Y for WHEEZING AND SOB, #1 INHALER 11/02/15 Folic Acid* (Folic Acid*) 1 Mg Tablet, 1 MG PO DAILY, TAB 11/02/15 Famotidine* (Famotidine*) 20 Mg Tablet, 20 MG PO BID, TAB 11/02/15 Cyanocobalamin* (Vitamin B-12* Inj) 1,000 Mcg/Ml Vial, 1000 MCG IM Q28D, VIAL 11/02/15 Allergies Allergies: Coded Allergies: ferrous sulfate (Verified Allergy, Severe, 09/12/16) ANY FORM OF FERROUS codeine (Verified Allergy, Unknown, 09/12/16) PMhx/Soc History of Surgery: No (Hirschsprung Colostomy 2015) Anesthesia Reaction: No Hx 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 Disorder: No Hx Respiratory Disorders: No Hx Cardiac Disorders: No Hx Psychiatric Problems: No Hx Miscellaneous Medical Probl: No Hx Alcohol Use: No Hx Substance Use: No Hx Tobacco Use: No Smoking Status: Never smoker FmHx Family History: No coronary disease Physical Exam Vitals Vital Signs Date Time Temp Pulse Resp B/P Pulse Ox O2 Delivery O2 Flow Rate FiO2 10/26/16 18:24 98.6 113 16 98/82 100 Room Air 10/26/16 16:59 98 17 90/67 100 Room Air 10/26/16 16:14 98.7 110 20 116/58 98 Physical Exam Const: Well-developed, somewhat cachectic Head: Atraumatic, normocephalic Eyes: Normal Conjunctiva, PERRLA, EOMI, normal sclera, no nystagmus ENT: Normal External Ears, Nose and Mouth, moist mucus membranes. Neck: Full range of motion. No meningismus, no lymphadenopathy. Resp: Clear to auscultation bilaterally, no wheezing, rhonchi, rales Cardio: Regular rate and rhythm, no murmurs, S1 S2 present Abd: Soft, diffuse mild to moderate tenderness, ileostomy in place, non distended. Normal bowel sounds, no guarding or rebound, no pulsitile abdominal masses or bruits Skin: No petechiae or rashes, no ecchymosis , no maculopapular rash Back: No midline or flank tenderness Ext: No cyanosis, or edema, FROM x 4, normal inspection, neurovascularly intact x 4 Neur: Awake and alert, STR 5/5 x 4, sensation intact x 4, no focal findings, cerebellum intact Psych: Normal Mood and Affect Result Diagram: 10/26/16 1719 10/26/16 1950 Results 24 hrs Laboratory Tests Test 10/26/16 17:19 10/26/16 18:10 10/26/16 19:50 White Blood Count 12.310^3/ul Red Blood Count 4.0010^6/ul Hemoglobin 12.7g/dl Hematocrit 34.5% Mean Corpuscular Volume 86.3fl Mean Corpuscular Hemoglobin 31.8pg Mean Corpuscular Hemoglobin Concent 36.8g/dl Red Cell Distribution Width 12.3% Platelet Count 98280^3/UL Mean Platelet Volume 8.6fl Neutrophils % 92.0% Lymphocytes % 4.0% Monocytes % 3.0% Eosinophils % 1.0% Neutrophils # 11.310^3/ul Lymphocytes # 0.510^3/ul Monocytes # 0.410^3/ul Eosinophils # 0.110^3/ul Sodium Level 116mmol/L Potassium Level 8.4mmol/L 6.8mmol/L Chloride Level 82mmol/L Carbon Dioxide Level 27mmol/L Anion Gap 15 Blood Urea Nitrogen 65mg/dl Creatinine 2.52mg/dl Glucose Level 123mg/dl Calcium Level 9.2mg/dl Magnesium Level 1.6mg/dl Total Bilirubin 0.3mg/dl Direct Bilirubin 0.00mg/dl Indirect Bilirubin 0.3mg/dl Aspartate Amino Transf (AST/SGOT) 32IU/L Alanine Aminotransferase (ALT/SGPT) 56IU/L Alkaline Phosphatase 118IU/L Total Protein 7.7g/dl Albumin 4.3g/dl Globulin 3.40g/dl Albumin/Globulin Ratio 1.26 Lipase 163U/L Current Medications Medications (Trade) Dose Ordered Sig/Elvie Route PRN Reason Start Time Stop Time Status Last Admin Dose Admin Sodium Chloride (NS) 1,000 ml @ 1,000 mls/hr Q1H STAT IV 10/26/16 17:05 10/26/16 18:04 DC 10/26/16 17:51 Morphine Sulfate (morphine) 4 mg ONCE STAT IV 10/26/16 17:05 10/26/16 17:11 DC 10/26/16 17:52 Ondansetron HCl (Zofran Inj) 4 mg ONCE STAT IV 10/26/16 17:05 10/26/16 17:11 DC 10/26/16 17:51 Sodium Polystyrene Sulfonate (Kayexalate) 30 gm ONCE STAT PO 10/26/16 20:10 10/26/16 20:12 DC Sodium Bicarbonate (Na Bicarb 8.4% Syg) 50 ml ONCE STAT IV 10/26/16 20:10 10/26/16 20:12 DC Insulin Human Regular (Novolin-R) 10 unit ONCE STAT IV 10/26/16 20:10 10/26/16 20:12 DC Dextrose (D50w Syringe) ONCE PRN IV POC BLOOD GLUCOSE <250 MG/DL 10/26/16 20:30 Procedures/MDM PROCEDURE: CT Abdomen and Pelvis without contrast. CLINICAL INDICATION: Abdominal pain. TECHNIQUE: CT scan of the abdomen and pelvis without contrast was performed on a multidetector high-resolution CT scanner. The patient was scanned without intravenous contrast. Coronal and sagittal reformatted images were obtained from the axial source images. Images were reviewed on a high-resolution PACS workstation. One or more of the following dose reduction techniques were used: Automated exposure control, adjustment of the mA and/or kV according to patient size, use of iterative reconstruction technique. The total exam CTDI equals 3.92 mGy and the total exam DLP equals 199.76 mGy-cm. COMPARISON: CT from 08/15/2016 FINDINGS: Lungs: Minimal dependent atelectasis at right lung base posteriorly. There is a new 1.1 x 0.8 cm nodule in the posterior right lower lobe. Liver: No abnormality seen. Gallbladder: No gallbladder seen suggestive of cholecystectomy. Spleen: No abnormality seen. Stomach: Radiopaque likely tablet in the gastric fundus. Pancreas: No abnormality seen. Adrenals: No abnormality seen. Kidneys: No abnormality seen. Abdominal aorta: No aneurysm seen. Lymph nodes: No enlarged lymph nodes are seen. Small bowel: There is a right sided ileostomy. There are dilated small bowel loops measuring up to approximately 4 cm containing fecalized material in the right lower abdomen with nondilated small bowel loops as well which could be secondary to small bowel ileus. No definite transition from dilated to nondilated small bowel loops are seen. Colon: The patient appears to be status post colectomy. There is the suggestion of a blind loop of bowel in the rectal region. Appendix: Not seen Bladder: No abnormality seen Pelvic organs: No abnormality seen Ascites: None seen. Osseous structures: Mild degenerative changes at sacroiliac joints. Very small scattered likely bone islands. Schmorl's nodes in thoracolumbar spine. IMPRESSION: 1. Status post colectomy with right sided ileostomy. Dilated small bowel loops measuring up to approximately 4 cm in the right mid abdomen with nondilated small bowel loops as well which could be secondary to small bowel ileus. No definite transition from dilated to nondilated small bowel loops are seen. Small bowel obstruction is possible. 2. New 1.1 x 0.8 cm right lower lobe pulmonary nodule. Recommend dedicated CT chest for further evaluation. RPTAT: HRAA .Anil Chapa MD, Date Time Electronically viewed and signed by .Anil Chapa MD, on 10/26/2016 19:05 .A/ CC: BEN HODGES DO Patient had a potassium treated with the hyperkalemic "cocktail". Patient has a low sodium of 116 and high potassium is 6.8. She also has ileus on CT scan. Will admit her to the hospital for IV fluid replacement that is gentle in light of her low sodium. She must have her follow closely. Talk with Dr. Prasad the patient admitted to telemetry Critical Care Time: 30 minutes Treatments/Evaluations: Close monitoring and treatment of unstable vital signs, cardiorespiratory, and neurologic status, while maintaining tight balance of fluid, respiratory, and cardiac interventions. This time includes discussing the case with the patient and the patient's family. This time does not include all procedures stated elsewhere in this record. This time also includes reviewing old records, labs and radiological studies. This time includes examining and re-examining the patient. Additionally, this time also includes arranging care with admitting and consulting physicians. Departure Diagnosis: Primary Impression: Hyperkalemia Additional Impressions: Hyponatremia Ileus Condition: Stable BEN HODGES DO Oct 26, 2016 20:23
[2016-10-26] MEDS ORDERED: SOD CHLORIDE 0.9% 1,000 ML IV SCH (20:24)
[2016-10-26] MEDS ORDERED: ACETAMINOPHEN 325 MG TAB PO PRN (20:30)
[2016-10-26] MEDS ORDERED: DEXTROSE 50% 50 ML SYRINGE IV PRN (20:30)
[2016-10-26] MEDS ORDERED: ONDANSETRON 4 MG INJ IV PRN ×2 (20:30→23:30)
[2016-10-26] MEDS ORDERED: DEXTROSE 50% 50 ML SYRINGE IV ONE (21:30)
--- NOTE | 2016-10-26 21:44 | EN ---
Date/Time of Note Date/Time of Note DATE: 10/26/16 TIME: 21:43 ER Progress Note Ultrasound-guided peripheral line placement by me: Nursing staff unable to obtain IV access. Location: Left AC under ultrasound guidance Technique: 18] gauge. [id number] with nursing assistance Results: Venous flow and easy flush Secured with transparent dressing. No complications. Image secured in chart TONIE BRIGGS DO Oct 26, 2016 21:44
--- NOTE | 2016-10-26 21:46 | EN ---
Date/Time of Note Date/Time of Note DATE: 10/26/16 TIME: 21:45 ER Progress Note Ultrasound-guided peripheral IV note: Staff was unable to obtain IV access on this patient. Occlusion the right upper extremity with alcohol and inserted a 18 -gauge extended Angiocath into the right basilic vein under ultrasound guidance. Patient told procedure well no complications. Flushed well and good blood return. Labs obtained by myself from this access point. EDUARDO KAMINSKI DO Oct 26, 2016 21:45
[2016-10-26] MEDS ORDERED: CA GLUCONATE (GM) 10% 10ML INJ ONE (21:48)
[2016-10-26] MEDS ORDERED: CA CHLORIDE 10% 10 ML SYRINGE IV STA (21:52)
[2016-10-26] MEDS ORDERED: CALCIUM GLUCONATE 10% 1 GM in SOD CHLORIDE 0.9% 100 ML IVPB ONE (22:00)
[2016-10-26 22:52] VITALS: Ht 152.4 cm; Wt 37.1 kg
[2016-10-26 22:59] VITALS: BP 107/66; PULSE 120; RESP 20
[2016-10-26] MEDS ORDERED: morphine 4 MG/ML VIAL IV PRN (23:30)
[2016-10-27] VITALS (17 sets, daily range): BP systolic 73–119; BP diastolic 40–56; PULSE 118–175; RESP 16–20
[2016-10-27] MEDS ORDERED: DILTIAZEM 25 MG INJ IV PRN (00:30)
[2016-10-27] MEDS ORDERED: DILTIAZEM-D5W 125MG/125ML DRIP 125 ML IV SCH (00:30)
[2016-10-27] MEDS: SOD CHLORIDE 0.9% 1,000 ML IV SCH ×3 (00:56→19:30)
[2016-10-27 07:36] LABS: ADD SCAN DIFF NO
[2016-10-27 07:39] LABS: ABNORMAL IP MESSAGE 1; BASOPHIL # 0.1 10^3/ul (0.0-0.1); BASOPHILS % 0.5 % (0.0-2.0); EOSINOPHILS % 0.3 % (0.0-7.0); HEMATOCRIT 34.7 % (37.0-47.0); HEMOGLOBIN 12.2 g/dl (12.0-16.0); LYMPHOCYTES # 0.6 10^3/ul (0.8-2.9); LYMPHOCYTES % 5.5 % (15.0-51.0); MEAN CORPUSCULAR HEMOGLOBIN 31.4 pg (29.0-33.0); MEAN CORPUSCULAR HGB CONC 35.2 g/dl (32.0-37.0); MEAN CORPUSCULAR VOLUME 89.2 fl (82.0-101.0); MEAN PLATELET VOLUME 8.8 fl (7.4-10.4); MONOCYTE # 0.6 10^3/ul (0.3-0.9); NEUTROPHIL # 8.9 10^3/ul (1.6-7.5); NEUTROPHILS % 87.4 % (39.0-77.0); NUCLEATED RED BLOOD CELLS% 0.2 /100WBC (0.0-0.0); PLATELET COUNT 592 10^3/UL (140-415); RED BLOOD COUNT 3.89 10^6/ul (4.20-5.40); RED CELL DISTRIBUTION WIDTH 12.6 % (11.5-14.5); WHITE BLOOD COUNT 10.2 10^3/ul (4.8-10.8)
[2016-10-27 08:00] LABS: CALCIUM 10.4 mg/dl (8.4-10.2); CREATININE 2.25 mg/dl (0.44-1.00); POTASSIUM 5.9 mmol/L (3.5-5.1)
--- NOTE | 2016-10-27 12:59 | HP ---
Date/Time of Note Date/Time of Note DATE: 10/27/16 TIME: 12:56 Assessment/Plan VTE Prophylaxis VTE Prophylaxis Intervention: other Lines/Catheters IV Catheter Type (from Nrs): Peripheral IV Assessment/Plan Chief Complaint/Hosp Course 1) ileus - intravenous fluid - keep NPO 2) electrolyte imbalance - monitor - correct as needed Problems: HPI/ROS Admit Date/Time Admit Date/Time Oct 26, 2016 at 20:25 Hx of Present Illness Patient with Hirshsprung's disease comes in with 1 day of nausea, vomiting, abdominal pain. Patient was found to have hyperkalemia and ileus. Therefore, patient is admitted for intravenous hydration and correction of electrolytes. PMH/Family/Social Past Medical History Hirschsprung's disease Past Surgical History Past Surgical Hx: other Social History Alcohol Use: rarely Smoking Status: Never smoker Exam/Review of Systems Vital Signs Vitals Vital Signs Date Time Temp Pulse Resp B/P Pulse Ox O2 Delivery O2 Flow Rate FiO2 10/27/16 12:07 152 10/27/16 11:55 98.2 18 95/54 97 10/27/16 04:35 Room Air Intake and Output 10/26/16 10/26/16 10/27/16 14:59 22:59 06:59 Intake Total 125 ml Output Total 700 ml Balance -575 ml Exam Constitutional: frail, well developed Head: atraumatic, normocephalic Neck: supple Respiratory: clear to auscultation Cardiovascular: regular rate and rhythm Gastrointestinal: non-tender, soft Extremities: normal pulses Labs Result Diagram: 10/27/16 0726 10/27/16 0726 Medications Medications Current Medications Sodium Chloride (NS) 1,000 ml @ 100 mls/hr Q10H IV Last administered on t 06:19; Admin Dose 100 MLS/HR; Start 10/26/16 at 23:30 Ondansetron HCl (Zofran Inj) 4 mg Q6H PRN IV NAUSEA AND/OR VOMITING; Start at 23:30 Morphine Sulfate 4 mg 4 mg Q6 PRN IV PAIN LEVEL 7-10; Start 10/26/16 at 23:45 Diltiazem HCl (Cardizem-D5W 125 Mg/125 ml Drip) 125 ml @ 5 mls/hr TITRATE IV Last administered on 10/27/16t 00:55; Admin Dose 5 MLS/HR; Start 10/27/16 at 00: 30; Stop 10/28/16 at 00:00 GINGER MOSES Oct 27, 2016 12:59
[2016-10-27] MEDS ORDERED: LIDOCAINE 1% (MDV) 20 ML INJ SC ONE (13:30)
[2016-10-27] MEDS ORDERED: LIDOCAINE 1% (MPF) 5 ML VIAL SC SCH (17:30)
--- NOTE | 2016-10-27 18:20 | RADRPT ---
PROCEDURE: XR Chest. CLINICAL INDICATION: PICC line placement. TECHNIQUE: PA and lateral chest x-ray. COMPARISON: Chest x-ray performed 4 minutes earlier. FINDINGS: Right-sided PICC line is seen overlying the midline chest, of uncertain dictation. This is presumab ly within the superior vena cava. The lungs are clear and the cardiomediastinal silhouette is billy l and there is no pneumothorax and the surrounding osseous structures are unremarkable. IMPRESSION: 1. Right-sided PICC line of uncertain location overlying the midline chest, presumably within the s uperior vena cava. RPTAT: PP .Deshawn Israel MD, MD Date Time Electronically viewed and signed by .Deshawn Israel MD, MD on 10/27/2016 18:20 .B/
--- NOTE | 2016-10-27 18:21 | RADRPT ---
PROCEDURE: XR Chest. CLINICAL INDICATION: PICC line placement. TECHNIQUE: Single frontal chest x-ray. COMPARISON: Chest x-ray dated 09/09/2016 FINDINGS: Right-sided PICC line is seen overlying the midline upper chest, of uncertain dictation. This is pr esumably within the superior vena cava or right brachial cephalic vein. The lungs are clear and the cardiomediastinal silhouette is normal and there is no pneumothorax and the surrounding osseous str uctures are unremarkable. IMPRESSION: 1. Right-sided PICC line of uncertain location overlying the midline upper, presumably within the s uperior vena cava. There is no evidence for pneumothorax. RPTAT: PP .Deshawn Israel MD, MD Date Time Electronically viewed and signed by .Deshawn Israel MD, on 10/27/2016 18:21 .B/
--- NOTE | 2016-10-27 18:21 | RADRPT ---
AMENDMENT: 11/14/2016 11:53:20 AM Rudy Zeng Md In retrospect, the right arm PICC line tip is in the descending thoracic aorta. PROCEDURE: XR Chest. CLINICAL INDICATION: PICC line placement. TECHNIQUE: Single frontal chest x-ray. COMPARISON: Chest x-ray dated 10/27/2016 performed 3 minutes earlier. FINDINGS: Right-sided PICC line is seen overlying the midline chest, of uncertain dictation. This is presumab ly within the superior vena cava. The lungs are clear and the cardiomediastinal silhouette is billy l and there is no pneumothorax and the surrounding osseous structures are unremarkable. IMPRESSION: 1. Right-sided PICC line of uncertain location overlying the midline chest, presumably within the s uperior vena cava. RPTAT: PP .Rudy Zeng MD, MD Date Time Electronically viewed and signed by .Rudy Zeng MD, MD on 11/14/2016 11:53 .R/
--- NOTE | 2016-10-27 18:39 | RADRPT ---
AMENDMENT: 11/14/2016 11:52:49 AM Rudy Zeng Md In retrospect, the right arm PICC line tip is in the descending thoracic aorta. PROCEDURE: XR Chest. CLINICAL INDICATION: Check PICC line position. TECHNIQUE: Single frontal view. 10/27/2016. 1823 hours. COMPARISON: 10/27/2016. 1809 hours. FINDINGS: There is a right arm PICC line with the tip in the lower superior vena cava. The lungs are clear. The heart size is normal. There is no pleural effusion. There is no pneumothorax. IMPRESSION: 1. Satisfactory position of right arm PICC line. 2. Otherwise normal chest radiograph. RPTAT: QQ .Rudy Zeng MD, MD Date Time Electronically viewed and signed by .Rudy Zeng MD, on 11/14/2016 11:52 .R/
--- NOTE | 2016-10-27 20:58 | RADRPT ---
PROCEDURE: US guidance for PICC line CLINICAL INDICATION: PICC line placement TECHNIQUE: Multiple real-time images were acquired of the patient's arm utilizing a high resolutio n transducer. This was performed by the PICC line nurse for venous access. COMPARISON: None FINDINGS: Ultrasound guidance for PICC line placement. IMPRESSION: Ultrasound guidance for PICC line placement. RPTAT: AA .Porfirio Blanton MD, MD Date Time Electronically viewed and signed by .Porfirio Blanton MD, on 10/27/2016 20:57 .S/
[2016-10-28] VITALS (11 sets, daily range): BP systolic 89–105; BP diastolic 51–54; PULSE 109–130; RESP 16–19
[2016-10-28] MEDS: SOD CHLORIDE 0.9% 1,000 ML IV SCH ×3 (02:55→15:30)
[2016-10-28 07:33] LABS: ADD SCAN DIFF NO
[2016-10-28 07:36] LABS: ABNORMAL IP MESSAGE 1; BASOPHILS % 0.4 % (0.0-2.0); EOSINOPHILS # 0.1 10^3/ul (0.0-0.5); EOSINOPHILS % 1.4 % (0.0-7.0); HEMATOCRIT 26.9 % (37.0-47.0); HEMOGLOBIN 9.3 g/dl (12.0-16.0); LYMPHOCYTES # 0.4 10^3/ul (0.8-2.9); LYMPHOCYTES % 4.7 % (15.0-51.0); MEAN CORPUSCULAR HEMOGLOBIN 31.8 pg (29.0-33.0); MEAN CORPUSCULAR HGB CONC 34.6 g/dl (32.0-37.0); MEAN CORPUSCULAR VOLUME 92.1 fl (82.0-101.0); MEAN PLATELET VOLUME 9.1 fl (7.4-10.4); MONOCYTE # 0.6 10^3/ul (0.3-0.9); MONOCYTES % 7.4 % (0.0-11.0); NEUTROPHIL # 7.2 10^3/ul (1.6-7.5); NEUTROPHILS % 85.9 % (39.0-77.0); PLATELET COUNT 470 10^3/UL (140-415); RED BLOOD COUNT 2.92 10^6/ul (4.20-5.40); RED CELL DISTRIBUTION WIDTH 12.8 % (11.5-14.5); WHITE BLOOD COUNT 8.4 10^3/ul (4.8-10.8)
[2016-10-28 07:52] LABS: POTASSIUM 3.7 mmol/L (3.5-5.1)
[2016-10-28 07:54] LABS: CREATININE 1.67 mg/dl (0.44-1.00)
[2016-10-28 07:55] LABS: CALCIUM 9.2 mg/dl (8.4-10.2)
[2016-10-28] MEDS ORDERED: VITAMIN A & D 5 GM OINT PACKET TOP ONE (10:08)
[2016-10-28 15:54] LABS: PLATELET COUNT 707 10^3/UL (140-415)
--- NOTE | 2016-10-28 18:56 | PN ---
Date/Time of Note Date/Time of Note DATE: 10/28/16 TIME: 18:51 Assessment/Plan VTE Prophylaxis VTE Prophylaxis Intervention: SCD's Lines/Catheters IV Catheter Type (from Nrs): PICC Line Central line still needed: Yes Reason Cath still needed: urinary retention Assessment/Plan Chief Complaint/Hosp Course ASSESSMENT AND PLAN: - Possible small bowel obstruction, resolving. - Severe hyperkalemia, resolved. - Hyponatremia, continue IV fluids monitor electrolytes. - Acute kidney injury, resolving. 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 Further recommendations based on clinical course. Plan of care discussed with Dr. Paez. Problems: Subjective 24 Hr Interval Summary Free Text/Dictation Patient is awake alert states that she feels better, tolerates diet well. Exam/Review of Systems Vital Signs Vitals Vital Signs Date Time Temp Pulse Resp B/P Pulse Ox O2 Delivery O2 Flow Rate FiO2 10/28/16 16:15 98.0 122 17 96/51 100 10/27/16 04:35 Room Air Intake and Output 10/27/16 10/27/16 10/28/16 14:59 22:59 06:59 Output Total 3 ml Balance -3 ml Exam Constitutional: alert, oriented Psych: no complaints Head: atraumatic, normocephalic Eyes: nl conjunctiva ENMT: nl external ears & nose Neck: non-tender, supple Respiratory: clear to auscultation, normal air movement Cardiovascular: nl pulses, regular rate and rhythm Gastrointestinal: non-tender, other (Ileostomy), soft Musculoskeletal: nl extremities to inspection Extremities: normal pulses 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: NURSE EXTERN II-XII intact Results Result Diagram: 10/28/1618 10/28/1618 Results 24 hrs Laboratory Tests Test 10/28/16 06:18 White Blood Count 8.4 Red Blood Count 2.92 #L Hemoglobin 9.3 #L Hematocrit 26.9 #L Mean Corpuscular Volume 92.1 Mean Corpuscular Hemoglobin 31.8 Mean Corpuscular Hemoglobin Concent 34.6 Red Cell Distribution Width 12.8 Platelet Count 470 #H Mean Platelet Volume 9.1 Neutrophils % 85.9 H Lymphocytes % 4.7 L Monocytes % 7.4 Eosinophils % 1.4 Basophils % 0.4 Nucleated Red Blood Cells % 0.0 Neutrophils # 7.2 Lymphocytes # 0.4 L Monocytes # 0.6 Eosinophils # 0.1 Basophils # 0.0 Nucleated Red Blood Cells # 0.0 Sodium Level 129 L Potassium Level 3.7 # Chloride Level 91 L Carbon Dioxide Level 24 Anion Gap 18 H Blood Urea Nitrogen 59 H Creatinine 1.67 H Glucose Level 96 Calcium Level 9.2 Medications Medications Current Medications Sodium Chloride (NS) 1,000 ml @ 100 mls/hr Q10H IV Last administered on t 13:30; Admin Dose 100 MLS/HR; Start 10/26/16 at 23:30 Ondansetron HCl (Zofran Inj) 4 mg Q6H PRN IV NAUSEA AND/OR VOMITING; Start at 23:30 Morphine Sulfate (morphine) 4 mg Q6 PRN IV PAIN LEVEL 7-10; Start 10/26/16 at 23:45 IV Flush (NS 10 ml) 10 ml PRN PRN IV FLUSH LINE; Start 10/27/16 at 19:30 Mupirocin (Bactroban) 1 applic BID TOP ; Start 10/28/16 at 21:00 ROMI ESPINO Oct 28, 2016 18:55
[2016-10-28] MEDS: MUPIROCIN 2% 22 GM OINT TOP SCH (21:01)
[2016-10-29] VITALS (11 sets, daily range): BP systolic 85–97; BP diastolic 46–53; PULSE 100–124; RESP 17–18
[2016-10-29] MEDS: SOD CHLORIDE 0.9% 1,000 ML IV SCH ×3 (01:53→21:06)
[2016-10-29 06:58] LABS: ADD SCAN DIFF NO
[2016-10-29 07:04] LABS: ABNORMAL IP MESSAGE 1; BASOPHILS % 0.4 % (0.0-2.0); EOSINOPHILS # 0.4 10^3/ul (0.0-0.5); EOSINOPHILS % 6.5 % (0.0-7.0); HEMATOCRIT 23.9 % (37.0-47.0); LYMPHOCYTES # 0.4 10^3/ul (0.8-2.9); MEAN CORPUSCULAR HEMOGLOBIN 31.1 pg (29.0-33.0); MEAN CORPUSCULAR HGB CONC 33.5 g/dl (32.0-37.0); MEAN PLATELET VOLUME 9.1 fl (7.4-10.4); MONOCYTE # 0.5 10^3/ul (0.3-0.9); MONOCYTES % 9.3 % (0.0-11.0); NEUTROPHIL # 4.3 10^3/ul (1.6-7.5); NEUTROPHILS % 76.6 % (39.0-77.0); PLATELET COUNT 361 10^3/UL (140-415); RED BLOOD COUNT 2.57 10^6/ul (4.20-5.40); RED CELL DISTRIBUTION WIDTH 12.6 % (11.5-14.5); WHITE BLOOD COUNT 5.6 10^3/ul (4.8-10.8)
[2016-10-29 07:32] LABS: CALCIUM 8.3 mg/dl (8.4-10.2); CREATININE 1.02 mg/dl (0.44-1.00)
[2016-10-29 07:36] LABS: POTASSIUM 2.6 mmol/L (3.5-5.1)
[2016-10-29] MEDS: MUPIROCIN 2% 22 GM OINT TOP SCH ×2 (09:19→21:06)
[2016-10-29] MEDS: POTASSIUM CHLORIDE 250 ML IVPB SCH ×2 (11:11→16:00)
[2016-10-29 17:42] LABS: CALCIUM 8.5 mg/dl (8.4-10.2); CREATININE 0.88 mg/dl (0.44-1.00); POTASSIUM 3.3 mmol/L (3.5-5.1)
--- NOTE | 2016-10-29 17:44 | PN ---
Date/Time of Note Date/Time of Note DATE: 10/29/16 TIME: 17:41 Assessment/Plan VTE Prophylaxis VTE Prophylaxis Intervention: SCD's Lines/Catheters IV [facility] (from [facility]): PICC Line Central line still needed: Yes Urinary Cath still in place: No Assessment/Plan Chief Complaint/Hosp Course ASSESSMENT AND PLAN: - Possible small bowel obstruction, resolving. - Acute kidney injury, resolving. Dr Spain is asked to see pt in nephrology consultation. - Severe hyperkalemia on admission, resolved. - Hyponatremia, continue IV fluids monitor electrolytes. 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 Further recommendations based on clinical course. Plan of care discussed with Dr. Paez. Problems: Subjective 24 Hr Interval Summary Free Text/Dictation Patient is awake, alert, denies N/V, tachycardic, K replaced in AM. Exam/Review of Systems Vital Signs Vitals Vital Signs Date Time Temp Pulse Resp B/P Pulse Ox O2 Delivery O2 Flow Rate FiO2 10/29/16 16:00 104 10/29/16 15:59 98.1 17 97/53 100 10/27/16 04:35 Room Air Intake and Output 10/28/16 10/28/16 10/29/16 15:00 23:00 07:00 Intake Total 650 ml 600 ml Output Total 450 ml 1200 ml Balance 200 ml -600 ml Exam Constitutional: alert, oriented Psych: no complaints Head: atraumatic, normocephalic Eyes: nl conjunctiva ENMT: nl external ears & nose Neck: non-tender, supple Respiratory: clear to auscultation, normal air movement Cardiovascular: nl pulses, regular rate and rhythm Gastrointestinal: non-tender, other (Ileostomy), soft Musculoskeletal: nl extremities to inspection Extremities: normal pulses 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: HOOKER OPERATOR II-XII intact Results Result Diagram: 10/29/16 0619 10/29/16 0540 Results 24 hrs Laboratory Tests Test 10/29/16 05:40 10/29/16 06:19 Sodium Level 129 L Potassium Level 2.6 *L Chloride Level 97 Carbon Dioxide Level 24 Anion Gap 11 # Blood Urea Nitrogen 30 #H Creatinine 1.02 H Glucose Level 66 #L Calcium Level 8.3 L White Blood Count 5.6 # Red Blood Count 2.57 L Hemoglobin 8.0 L Hematocrit 23.9 L Mean Corpuscular Volume 93.0 Mean Corpuscular Hemoglobin 31.1 Mean Corpuscular Hemoglobin Concent 33.5 Red Cell Distribution Width 12.6 Platelet Count 361 # Mean Platelet Volume 9.1 Neutrophils % 76.6 Lymphocytes % 7.0 L Monocytes % 9.3 Eosinophils % 6.5 Basophils % 0.4 Nucleated Red Blood Cells % 0.0 Neutrophils # 4.3 Lymphocytes # 0.4 L Monocytes # 0.5 Eosinophils # 0.4 Basophils # 0.0 Nucleated Red Blood Cells # 0.0 Medications Medications Current Medications Sodium Chloride (NS) 1,000 ml @ 100 mls/hr Q10H IV Last administered on 11:12; Admin Dose 100 MLS/HR; Start 10/26/16 at 23:30 Ondansetron HCl (Zofran Inj) 4 mg Q6H PRN IV NAUSEA AND/OR VOMITING; Start at 23:30 Morphine Sulfate (morphine) 4 mg Q6 PRN IV PAIN LEVEL 7-10; Start 10/26/16 at 23:45 IV Flush (NS 10 ml) 10 ml PRN PRN IV FLUSH LINE; Start 10/27/16 at 19:30 Mupirocin 1 applic 1 applic BID TOP Last administered on 10/29/16 09:19; Admin Dose 1 APPLIC; Start 10/28/16 at 21:00 Potassium Chloride (KCl 40 MEQ/250 ML NS) 250 ml @ 62.5 mls/hr Q4H IVPB Last administered on 10/29/16 16:00; Admin Dose 62.5 MLS/HR; Start 10/29/16 at 11:00 ; Stop 10/29/16 at 18:59 ROMI ESPINO Oct 29, 2016 17:44
[2016-10-29 18:14] LABS: THYROID STIMULATING HORMONE 0.28 MIU/L (0.465-4.680)
[2016-10-29] MEDS ORDERED: POTASSIUM CHLORIDE 20 MEQ in SOD CHLORIDE 0.9% 100 ML IVPB ONE (20:00)
--- NOTE | 2016-10-29 20:25 | CONS ---
DATE OF ADMISSION: 10/26/2016 DATE OF CONSULTATION: 10/29/2016 TYPE OF CONSULTATION: Nephrology. REASON FOR CONSULTATION: 1. Hyponatremia; severe hypokalemia, potassium 2.6. 2. Acute kidney injury with a creatinine of 1.6. HISTORY OF PRESENT ILLNESS: This is a 41-year-old female who has a past medical history of Hirschsp rung disease, status post multiple abdominal surgeries in the past. She presented with possible sma ll bowel obstruction. Initially the patient had hypokalemia with a potassium down to 2.9. She has been getting aggressive potassium replacement. She also is noted to have acute kidney injury with a creatinine of 1.6. She had hyponatremia with a sodium down to 116. The patient was given IV fluid hydration. She has been getting pain control and also the morphine for pain control. Her IV fluid includes NS at 100 mL/hour. The patient continues to remain hypokalemic with a potassium down to 2 .9. The sodium is also running on the low side despite getting aggressive IV fluid hydration, so Re nal has been consulted for acute kidney injury, hyponatremia, hypokalemia. REVIEW OF SYSTEMS: As per HPI. PAST MEDICAL HISTORY: Notable for Hirschsprung disease, has multiple abdominal surgeries before. PAST SURGICAL HISTORY: 1. History of abdominal surgery x5 for Hirschsprung disease. 2. Recently admitted at the [facility] and discharged on 10/20/2016. SOCIAL HISTORY: No smoking, alcohol, recreational drug use. FAMILY HISTORY: Not available. PHYSICAL EXAMINATION: VITAL SIGNS: Temperature 98.1, heart rate 124, respirations 17, blood pressure 97/53, saturation 10 0% on room air. GENERAL: Awake, alert. No distress. HEENT: Normal. Oropharynx clear. NECK: Supple. No JVD, no lymphadenopathy. LUNGS: Clear to auscultation. No crackles, no wheezes. HEART: S1, S2 with regular rhythm. No murmur. ABDOMEN: Soft, tender to palpation diffusely. No rebound, no guarding. Bowel sounds are present. EXTREMITIES: No clubbing, cyanosis, edema. NEUROLOGICAL: Nonfocal, intact. PSYCHIATRIC: Appropriate affect and mood. LABORATORY DATA AND DIAGNOSTIC IMAGIN. Sodium is 129, potassium 2.6, chloride 97, bicarbonate 24, BUN 59, creatinine 1.6, calcium 9.2. The patient presented with a sodium of 116, a creatinine of 2.52, and the potassium at that time wa s 8.4. She has been on aggressive potassium replacement, now she becomes hypokalemic and hyponatrem ic. 2. WBC 5.6, hemoglobin 8, platelet count is 361. 3. CT abdomen and pelvis done which shows no acute finding, status post colectomy with right-sided ileostomy, dilated small bowel loops concerning for ____ ileus or small-bowel obstruction. IMPRESSION: This is a 41-year-old female who presented with hyperkalemia and hyponatremia which baudilio t from hyperkalemia, potassium of 8.8 to potassium of 2.6 and the sodium also from 116 to 129. Laura lagos has been consulted for multiple electrolyte abnormalities includin. Severe hypokalemia with a potassium of 2.6. The patient's potassium has been fluctuating from h ypokalemia to hyperkalemia depending on the potassium replacement. 2. Severe hyponatremia, sodium 116 on admission. 3. Acute kidney injury with a creatinine 2.5 on admission secondary to prerenal azotemia causing is chemic acute tubular necrosis. 4. History of colectomy with right-sided ileostomy. 5. History of Hirschsprung disease, status post multiple abdominal surgeries as per the patient. PLAN: Thank you, Dr. Paez, for this consultation. The patient currently seen on the telemetry floor. The patient is getting aggressive potassium replacement with 40 mEq IV x1. I will order the patient's urine sodium, urine osmolality and serum osmolality. TSH, free T4 and ____ have been ord ered for workup of hyponatremia. 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 I would continue to replace her potassium as needed depending on her potass ium level. I will order the patient's electrolytes today evening, a BMP to follow up on her potassium, and the further plan of the potassium replacement will be decided on the potassium level. Once again, thank you, Dr. Paez, for this consultation. The patient currently seen on the telem etry floor, and she will be followed up along with the primary care service. Total time spent in this patient's evaluation, making assessment and plan and communicating with the nursing staff took more than 90 minutes. Dictated By: ROHAN VELÁZQUEZ MD, KP/CRISTINA Conf#: [id number] DID#: [id number]
[2016-10-30] VITALS (11 sets, daily range): BP systolic 86–119; BP diastolic 50–55; PULSE 97–109; RESP 15–18
[2016-10-30] MEDS: SOD CHLORIDE 0.9% 1,000 ML IV SCH ×2 (07:30→17:06)
[2016-10-30] MEDS: MUPIROCIN 2% 22 GM OINT TOP SCH ×2 (09:08→21:51)
--- NOTE | 2016-10-30 12:35 | CONS ---
Date/Time of Note Date/Time of Note DATE: 10/30/16 TIME: 12:31 Assessment/Plan Assessment/Plan Additional Assessment/Plan 1. Severe hypokalemia with a potassium of 2.6. The patient's potassium has been fluctuating from hypokalemia to hyperkalemia depending on the potassium replacement. 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 Severe hyponatremia, sodium 116 on admission. 3. Acute kidney injury with a creatinine 2.5 on admission secondary to prerenal azotemia causing ischemic acute tubular necrosis. 4. History of colectomy with right-sided ileostomy. 5. History of Hirschsprung disease, status post multiple abdominal surgeries as per the patient. PLAN: add 20mEQ KCL to current IVF also give additional 2mEQ IV KCL x 1 dose now expecting Na and K to improve, Cr improved to normal 0.88 good urine output will continue to follow up on patient Consultation Date/Type/Reason Admit Date/Time Oct 26, 2016 at 20:25 Initial Consult Date October Type of Consultation: NEPHROLOGY Reason for Consultation severe hypokalemia, Severe Hyponatremia Referring Provider: CARLOS RODRIGUEZ MD 24 HR Interval Summary Free Text/Dictation K 3.3, Na improved to 131 Exam/Review of Systems Vital Signs Vitals Vital Signs Date Time Temp Pulse Resp B/P Pulse Ox O2 Delivery O2 Flow Rate FiO2 10/30/16 11:56 98.3 98 18 86/54 100 10/27/16 04:35 Room Air Intake and Output 10/29/16 10/29/16 10/30/16 15:00 23:00 07:00 Intake Total 2710 ml 1300 ml Output Total 1004 ml Balance 1706 ml 1300 ml Exam GENERAL: Awake, alert. No distress. HEENT: Normal. Oropharynx clear. NECK: Supple. No JVD, no lymphadenopathy. LUNGS: Clear to auscultation. No crackles, no wheezes. HEART: S1, S2 with regular rhythm. No murmur. ABDOMEN: Soft, tender to palpation diffusely. No rebound, no guarding. Bowel sounds are present. EXTREMITIES: No clubbing, cyanosis, edema. NEUROLOGICAL: Nonfocal, intact. PSYCHIATRIC: Appropriate affect and mood. Results Result Diagram: 10/29/16 0619 10/29/16 1703 Results 24 hrs Laboratory Tests Test 10/29/16 17:03 10/29/16 23:00 Sodium Level 131 L Potassium Level 3.3 L Chloride Level 101 Carbon Dioxide Level 23 Anion Gap 10 Blood Urea Nitrogen 22 H Creatinine 0.88 Glucose Level 78 Osmolality 278 L Calcium Level 8.5 Thyroid Stimulating Hormone (TSH) 0.280 L Free Thyroxine 2.05 H Random Cortisol 6.4 Urine Osmolality 579 Urine Random Sodium 28 L Medications Medications Current Medications Sodium Chloride (NS) 1,000 ml @ 100 mls/hr Q10H IV Last administered on 21:06; Admin Dose 100 MLS/HR; Start 10/26/16 at 23:30 Ondansetron HCl (Zofran Inj) 4 mg Q6H PRN IV NAUSEA AND/OR VOMITING; Start at 23:30 Morphine Sulfate (morphine) 4 mg Q6 PRN IV PAIN LEVEL 7-10; Start 10/26/16 at 23:45 IV Flush (NS 10 ml) 10 ml PRN PRN IV FLUSH LINE; Start 10/27/16 at 19:30 Mupirocin (Bactroban) 1 applic BID TOP Last administered on 10/30/16 09:08; Admin Dose 1 APPLIC; Start 10/28/16 at 21:00 ROHAN VELÁZQUEZ MD Oct 30, 2016 12:35
[2016-10-30] MEDS ORDERED: POTASSIUM CHLORIDE 20 MEQ in SOD CHLORIDE 0.9% 100 ML IVPB ONE (14:00)
--- NOTE | 2016-10-30 20:15 | PN ---
Date/Time of Note Date/Time of Note DATE: 10/30/16 TIME: 20:12 Assessment/Plan VTE Prophylaxis VTE Prophylaxis Intervention: SCD's Lines/Catheters [facility] PICC Line Central line still needed: Yes Urinary Cath still in place: No Assessment/Plan Chief Complaint/Hosp Course ASSESSMENT AND PLAN: - Possible small bowel obstruction, resolving. - Acute kidney injury, resolving. - Severe hyperkalemia on admission, resolved. Dr Spain is following pt in nephrology consultation. - Hyponatremia, continue IV fluids monitor electrolytes. 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 Further recommendations based on clinical course. Plan of care discussed with Dr. Paez. Problems: Subjective 24 Hr Interval Summary Free Text/Dictation Patient looks comfortable, denies any chest pain denies any nausea vomiting Exam/Review of Systems Vital Signs Vitals Vital Signs Date Time Temp Pulse Resp B/P Pulse Ox O2 Delivery O2 Flow Rate FiO2 10/30/16 16:00 98 10/30/16 15:20 16 93/50 97 10/30/16 11:56 98.3 10/27/16 04:35 Room Air Intake and Output 10/29/16 10/29/16 10/30/16 14:59 22:59 06:59 Intake Total 2600 ml 1410 ml Output Total 1004 ml Balance 1596 ml 1410 ml Exam Constitutional: alert, oriented Psych: no complaints Head: atraumatic, normocephalic Eyes: nl conjunctiva ENMT: nl external ears & nose Neck: non-tender, supple Respiratory: clear to auscultation, normal air movement Cardiovascular: nl pulses, regular rate and rhythm Gastrointestinal: non-tender, other (Ileostomy), soft Musculoskeletal: nl extremities to inspection Extremities: normal pulses 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: PIN ATTACHER II-XII intact Results Result Diagram: 10/29/16 0619 10/29/16 1703 Results 24 hrs Laboratory Tests Test 10/29/16 23:00 Urine Osmolality 579 Urine Random Sodium 28 L Medications Medications Current Medications Sodium Chloride (NS) 1,000 ml @ 100 mls/hr Q10H IV Last administered on t 17:06; Admin Dose 100 MLS/HR; Start 10/26/16 at 23:30 Ondansetron HCl (Zofran Inj) 4 mg Q6H PRN IV NAUSEA AND/OR VOMITING; Start at 23:30 Morphine Sulfate (morphine) 4 mg Q6 PRN IV PAIN LEVEL 7-10; Start 10/26/16 at 23:45 IV Flush (NS 10 ml) 10 ml PRN PRN IV FLUSH LINE; Start 10/27/16 at 19:30 Mupirocin (Bactroban) 1 applic BID TOP Last administered on 10/30/16t 09:08; Admin Dose 1 APPLIC; Start 10/28/16 at 21:00 ROMI ESPINO Oct 30, 2016 20:15
[2016-10-31] VITALS (11 sets, daily range): BP systolic 80–114; BP diastolic 41–60; PULSE 95–124; RESP 15–19
[2016-10-31] MEDS: SOD CHLORIDE 0.9% 1,000 ML IV SCH ×2 (03:11→14:50)
[2016-10-31 07:06] LABS: ABNORMAL IP MESSAGE 1; ADD SCAN DIFF NO; BASOPHILS % 0.4 % (0.0-2.0); EOSINOPHILS # 0.5 10^3/ul (0.0-0.5); EOSINOPHILS % 10.5 % (0.0-7.0); HEMATOCRIT 24.6 % (37.0-47.0); HEMOGLOBIN 8.2 g/dl (12.0-16.0); LYMPHOCYTES # 0.4 10^3/ul (0.8-2.9); LYMPHOCYTES % 6.8 % (15.0-51.0); MEAN CORPUSCULAR HEMOGLOBIN 30.9 pg (29.0-33.0); MEAN CORPUSCULAR HGB CONC 33.3 g/dl (32.0-37.0); MEAN CORPUSCULAR VOLUME 92.8 fl (82.0-101.0); MEAN PLATELET VOLUME 9.3 fl (7.4-10.4); MONOCYTE # 0.4 10^3/ul (0.3-0.9); MONOCYTES % 6.8 % (0.0-11.0); NEUTROPHIL # 3.8 10^3/ul (1.6-7.5); NEUTROPHILS % 75.1 % (39.0-77.0); PLATELET COUNT 344 10^3/UL (140-415); RED BLOOD COUNT 2.65 10^6/ul (4.20-5.40); RED CELL DISTRIBUTION WIDTH 12.4 % (11.5-14.5); WHITE BLOOD COUNT 5.1 10^3/ul (4.8-10.8)
[2016-10-31 07:33] LABS: POTASSIUM 3.1 mmol/L (3.5-5.1)
[2016-10-31 07:36] LABS: CALCIUM 8.3 mg/dl (8.4-10.2); CREATININE 0.85 mg/dl (0.44-1.00)
[2016-10-31 07:39] LABS: PHOSPHORUS 2.8 mg/dl (2.5-4.9)
[2016-10-31 07:41] LABS: MAGNESIUM 0.9 mg/dl (1.7-2.5)
[2016-10-31] MEDS: MUPIROCIN 2% 22 GM OINT TOP SCH ×2 (09:35→20:40)
--- NOTE | 2016-10-31 12:56 | CONS ---
Date/Time of Note Date/Time of Note DATE: 10/31/16 TIME: 12:55 Assessment/Plan Assessment/Plan Additional Assessment/Plan 1. Severe hypokalemia with a potassium of 2.6. The patient's potassium has been fluctuating from hypokalemia to hyperkalemia depending on the potassium replacement. 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 Severe hyponatremia, sodium 116 on admission. 3. Acute kidney injury with a creatinine 2.5 on admission secondary to prerenal azotemia causing ischemic acute tubular necrosis. 4. History of colectomy with right-sided ileostomy. 5. History of Hirschsprung disease, status post multiple abdominal surgeries as per the patient. PLAN: IVF with KCL , also give additional 30mEQ IV KCL x 1 dose now , magnesium sulfate 4 gram IV X 1 dose now expecting Na and K to improve, Cr improved to normal 0.88 good urine output will continue to follow up on patient Consultation Date/Type/Reason Admit Date/Time Oct 26, 2016 at 20:25 Initial Consult Date October Type of Consultation: NEPHROLOGY Referring Provider: CARLOS RODRIGUEZ MD 24 HR Interval Summary Free Text/Dictation Na 134, K 3.1, mag 0.9- pt has been having lot of ostomy output Exam/Review of Systems Vital Signs Vitals Vital Signs Date Time Temp Pulse Resp B/P Pulse Ox O2 Delivery O2 Flow Rate FiO2 10/31/16 12:17 95 10/31/16 11:29 97.8 18 80/48 100 Intake and Output 10/30/16 10/30/16 10/31/16 15:00 23:00 07:00 Intake Total 880 ml 1300 ml Output Total 2951 ml 801 ml Balance -2071 ml 499 ml Exam GENERAL: Awake, alert. No distress. HEENT: Normal. Oropharynx clear. NECK: Supple. No JVD, no lymphadenopathy. LUNGS: Clear to auscultation. No crackles, no wheezes. HEART: S1, S2 with regular rhythm. No murmur. ABDOMEN: Soft, tender to palpation diffusely. No rebound, no guarding. Bowel sounds are present. EXTREMITIES: No clubbing, cyanosis, edema. NEUROLOGICAL: Nonfocal, intact. PSYCHIATRIC: Appropriate affect and mood. Results Result Diagram: 10/31/16 0625 10/31/16 0500 Results 24 hrs Laboratory Tests Test 10/31/16 05:00 10/31/16 06:25 Sodium Level 134 L Potassium Level 3.1 L Chloride Level 102 Carbon Dioxide Level 24 Anion Gap 11 Blood Urea Nitrogen 17 Creatinine 0.85 Glucose Level 77 Calcium Level 8.3 L White Blood Count 5.1 Red Blood Count 2.65 L Hemoglobin 8.2 L Hematocrit 24.6 L Mean Corpuscular Volume 92.8 Mean Corpuscular Hemoglobin 30.9 Mean Corpuscular Hemoglobin Concent 33.3 Red Cell Distribution Width 12.4 Platelet Count 344 Mean Platelet Volume 9.3 Neutrophils % 75.1 Lymphocytes % 6.8 L Monocytes % 6.8 Eosinophils % 10.5 H Basophils % 0.4 Nucleated Red Blood Cells % 0.0 Neutrophils # 3.8 Lymphocytes # 0.4 L Monocytes # 0.4 Eosinophils # 0.5 Basophils # 0.0 Nucleated Red Blood Cells # 0.0 Phosphorus Level 2.8 Magnesium Level 0.9 *L Medications Medications Current Medications Sodium Chloride (NS) 1,000 ml @ 100 mls/hr Q10H IV Last administered on 03:11; Admin Dose 100 MLS/HR; Start 10/26/16 at 23:30 Ondansetron HCl (Zofran Inj) 4 mg Q6H PRN IV NAUSEA AND/OR VOMITING; Start at 23:30 Morphine Sulfate (morphine) 4 mg Q6 PRN IV PAIN LEVEL 7-10; Start 10/26/16 at 23:45 IV Flush (NS 10 ml) 10 ml PRN PRN IV FLUSH LINE; Start 10/27/16 at 19:30 Mupirocin (Bactroban) 1 applic BID TOP Last administered on 10/31/16 09:35; Admin Dose 1 APPLIC; Start 10/28/16 at 21:00 ROHAN VELÁZQUEZ MD Oct 31, 2016 12:56
[2016-10-31] MEDS ORDERED: MAGNESIUM SULFATE 4 GM/100 ML 100 ML IVPB ONE (14:30)
[2016-10-31] MEDS ORDERED: POTASSIUM CHLORIDE 30 MEQ in SOD CHLORIDE 0.9% 150 ML IVPB ONE (14:30)
--- NOTE | 2016-10-31 17:30 | PN ---
Date/Time of Note Date/Time of Note DATE: 10/31/16 TIME: 17:28 Assessment/Plan VTE Prophylaxis VTE Prophylaxis Intervention: other Lines/Catheters IV [facility]ter Type (from [facility] PICC Line Central line still needed: Yes Urinary Cath still in place: No Assessment/Plan Assessment/Plan -Severe wkld-yziserzqz-bfxtroosf level repleted by Dr. Spain, a.m. mag level - Possible small bowel obstruction, resolving. - Acute kidney injury, resolving. - hypokalemia, repleted, am labs - per Dr Spain in nephrology consultation. - Hyponatremia, continue IV fluids monitor electrolytes. 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 Further recommendations based on clinical course. Plan of care discussed with Dr. Paez. Subjective 24 Hr Interval Summary Free Text/Dictation resting in bed, afebrile. feels better, denies any nausea/vomiting. dw staff Constitutional: other Eyes: no complaints ENT: no complaints Respiratory: no complaints Cardiovascular: no complaints Gastrointestinal: pain Genitourinary: no complaints Musculoskeletal: no complaints Skin: no complaints Neurologic: no complaints Psychological: no complaints Exam/Review of Systems Vital Signs Vitals Vital Signs Date Time Temp Pulse Resp B/P Pulse Ox O2 Delivery O2 Flow Rate FiO2 10/31/16 16:16 111 10/31/16 15:00 97.9 19 92/47 100 Intake and Output 10/30/16 10/30/16 10/31/16 15:00 23:00 07:00 Intake Total 880 ml 1300 ml Output Total 2951 ml 801 ml Balance -2071 ml 499 ml Exam Constitutional: alert Psych: nl mood/affect Eyes: nl sclera ENMT: nl external ears & nose Respiratory: clear to auscultation Cardiovascular: nl pulses Gastrointestinal: non-tender, other (multile healed surgical scars noted), soft Extremities: normal pulses Lymph: nontender Results Result Diagram: 10/31/16 0625 10/31/16 0500 Results 24 hrs Laboratory Tests Test 10/31/16 05:00 10/31/16 06:25 Sodium Level 134 L Potassium Level 3.1 L Chloride Level 102 Carbon Dioxide Level 24 Anion Gap 11 Blood Urea Nitrogen 17 Creatinine 0.85 Glucose Level 77 Calcium Level 8.3 L White Blood Count 5.1 Red Blood Count 2.65 L Hemoglobin 8.2 L Hematocrit 24.6 L Mean Corpuscular Volume 92.8 Mean Corpuscular Hemoglobin 30.9 Mean Corpuscular Hemoglobin Concent 33.3 Red Cell Distribution Width 12.4 Platelet Count 344 Mean Platelet Volume 9.3 Neutrophils % 75.1 Lymphocytes % 6.8 L Monocytes % 6.8 Eosinophils % 10.5 H Basophils % 0.4 Nucleated Red Blood Cells % 0.0 Neutrophils # 3.8 Lymphocytes # 0.4 L Monocytes # 0.4 Eosinophils # 0.5 Basophils # 0.0 Nucleated Red Blood Cells # 0.0 Phosphorus Level 2.8 Magnesium Level 0.9 *L Medications Medications Current Medications Sodium Chloride (NS) 1,000 ml @ 100 mls/hr Q10H IV Last administered on 14:50; Admin Dose 100 MLS/HR; Start 10/26/16 at 23:30 Ondansetron HCl (Zofran Inj) 4 mg Q6H PRN IV NAUSEA AND/OR VOMITING; Start at 23:30 Morphine Sulfate (morphine) 4 mg Q6 PRN IV PAIN LEVEL 7-10; Start 10/26/16 at 23:45 IV Flush (NS 10 ml) 10 ml PRN PRN IV FLUSH LINE; Start 10/27/16 at 19:30 Mupirocin 1 applic 1 applic BID TOP Last administered on 10/31/16 09:35; Admin Dose 1 APPLIC; Start 10/28/16 at 21:00 Magnesium Sulfate 100 ml @ 25 mls/hr ONCE ONCE IVPB Last administered on 10/31 14:51; Admin Dose 25 MLS/HR; Start 10/31/16 at 14:30; Stop 10/31/16 at 18: 29 Potassium Chloride/Sodium Chloride (KCl/NS) 165 ml @ 55 mls/hr ONCE ONCE IVPB Last administered on 10/31/16 14:50; Admin Dose 55 MLS/HR; Start 10/31/16 at 14:30; Stop 10/31/16 at 17:29 DEVENDRA GOMES Oct 31, 2016 17:30
[2016-11-01] VITALS (13 sets, daily range): BP systolic 80–106; BP diastolic 36–52; PULSE 96–107; RESP 15–20
[2016-11-01] MEDS: NS + KCL 20 MEQ 1,000 ML IV SCH ×3 (04:45→21:23)
[2016-11-01 07:44] LABS: ADD SCAN DIFF NO
[2016-11-01 07:51] LABS: ABNORMAL IP MESSAGE 1; BASOPHILS % 0.4 % (0.0-2.0); EOSINOPHILS # 0.6 10^3/ul (0.0-0.5); EOSINOPHILS % 11.3 % (0.0-7.0); HEMATOCRIT 22.4 % (37.0-47.0); HEMOGLOBIN 7.7 g/dl (12.0-16.0); LYMPHOCYTES # 0.4 10^3/ul (0.8-2.9); LYMPHOCYTES % 7.5 % (15.0-51.0); MEAN CORPUSCULAR HEMOGLOBIN 31.7 pg (29.0-33.0); MEAN CORPUSCULAR HGB CONC 34.4 g/dl (32.0-37.0); MEAN CORPUSCULAR VOLUME 92.2 fl (82.0-101.0); MEAN PLATELET VOLUME 9.4 fl (7.4-10.4); MONOCYTE # 0.2 10^3/ul (0.3-0.9); MONOCYTES % 4.6 % (0.0-11.0); NEUTROPHIL # 3.8 10^3/ul (1.6-7.5); NEUTROPHILS % 75.8 % (39.0-77.0); PLATELET COUNT 359 10^3/UL (140-415); RED BLOOD COUNT 2.43 10^6/ul (4.20-5.40); RED CELL DISTRIBUTION WIDTH 12.3 % (11.5-14.5)
[2016-11-01 08:24] LABS: CREATININE 0.75 mg/dl (0.44-1.00)
[2016-11-01 08:25] LABS: CALCIUM 7.8 mg/dl (8.4-10.2)
[2016-11-01 08:27] LABS: POTASSIUM 2.6 mmol/L (3.5-5.1)
[2016-11-01] MEDS: MUPIROCIN 2% 22 GM OINT TOP SCH ×2 (09:55→21:23)
[2016-11-01] MEDS ORDERED: POTASSIUM CHLORIDE 250 ML IVPB SCH (10:00)
--- NOTE | 2016-11-01 11:49 | CONS ---
Date/Time of Note Date/Time of Note DATE: 11/01/16 TIME: 11:46 Assessment/Plan Assessment/Plan Additional Assessment/Plan 1. Severe hypokalemia with a potassium of 2.6. The patient's potassium has been fluctuating from hypokalemia to hyperkalemia depending on the potassium replacement. 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 Severe hyponatremia, sodium 116 on admission.-now improving to 136 3. Acute kidney injury with a creatinine 2.5 on admission secondary to prerenal azotemia causing ischemic acute tubular necrosis. 4. History of colectomy with right-sided ileostomy. 5. History of Hirschsprung disease, status post multiple abdominal surgeries as per the patient. PLAN: IVF with KCL , KCl 20mEQ IV KCL x 1 dose now , today mag normal will keep her on agressive K replacement, Cr improved to normal good urine output will continue to follow up on patient Consultation Date/Type/Reason Admit Date/Time Oct 26, 2016 at 20:25 Initial Consult Date October Type of Consultation: NEPHROLOGY Referring Provider: CARLOS RODRIGUEZ MD 24 HR Interval Summary Free Text/Dictation K still low, BP stable, having a lot of ostomy output Exam/Review of Systems Vital Signs Vitals Vital Signs Date Time Temp Pulse Resp B/P Pulse Ox O2 Delivery O2 Flow Rate FiO2 11/01/16 11:42 98.2 95 19 106/44 100 Intake and Output 10/31/16 10/31/16 11/01/16 15:00 23:00 07:00 Intake Total 1200 ml 1420 ml Output Total 2200 ml 1200 ml Balance -1000 ml 220 ml Exam GENERAL: Awake, alert. No distress. HEENT: Normal. Oropharynx clear. NECK: Supple. No JVD, no lymphadenopathy. LUNGS: Clear to auscultation. No crackles, no wheezes. HEART: S1, S2 with regular rhythm. No murmur. ABDOMEN: Soft, tender to palpation diffusely. No rebound, no guarding. Bowel sounds are present. EXTREMITIES: No clubbing, cyanosis, edema. NEUROLOGICAL: Nonfocal, intact. PSYCHIATRIC: Appropriate affect and mood. Results Result Diagram: 11/01/16 0615 11/01/16 0615 Results 24 hrs Laboratory Tests Test 11/01/16 06:15 White Blood Count 5.0 Red Blood Count 2.43 L Hemoglobin 7.7 L Hematocrit 22.4 L Mean Corpuscular Volume 92.2 Mean Corpuscular Hemoglobin 31.7 Mean Corpuscular Hemoglobin Concent 34.4 Red Cell Distribution Width 12.3 Platelet Count 359 Mean Platelet Volume 9.4 Neutrophils % 75.8 Lymphocytes % 7.5 L Monocytes % 4.6 Eosinophils % 11.3 H Basophils % 0.4 Nucleated Red Blood Cells % 0.0 Neutrophils # 3.8 Lymphocytes # 0.4 L Monocytes # 0.2 L Eosinophils # 0.6 H Basophils # 0.0 Nucleated Red Blood Cells # 0.0 Sodium Level 136 Potassium Level 2.6 *L Chloride Level 103 Carbon Dioxide Level 24 Anion Gap 12 Blood Urea Nitrogen 12 Creatinine 0.75 Glucose Level 69 L Calcium Level 7.8 L Magnesium Level 2.1 # Medications Medications Current Medications Ondansetron HCl (Zofran Inj) 4 mg Q6H PRN IV NAUSEA AND/OR VOMITING; Start at 23:30 Morphine Sulfate (morphine) 4 mg Q6 PRN IV PAIN LEVEL 7-10; Start 10/26/16 at 23:45 IV Flush (NS 10 ml) 10 ml PRN PRN IV FLUSH LINE; Start 10/27/16 at 19:30 Mupirocin 1 applic 1 applic BID TOP Last administered on 11/01/16 09:55; Admin Dose 1 APPLIC; Start 10/28/16 at 21:00 Potassium Chloride/Sodium Chloride 1,000 ml @ 100 mls/hr Q10H IV Last administered on 11/01/16 04:45; Admin Dose 100 MLS/HR; Start 11/01/16 at 04:30 Potassium Chloride (KCl 40 MEQ/250 ML NS) 250 ml @ 62.5 mls/hr ONCE IVPB Last administered on 11/01/16 09:45; Admin Dose 62.5 MLS/HR; Start 11/01/16 at 10:00 ; Stop 11/01/16 at 13:59 ROHAN VELÁZQUEZ MD Nov 01, 2016 11:48
--- NOTE | 2016-11-01 13:14 | PN ---
Date/Time of Note Date/Time of Note DATE: 11/01/16 TIME: 13:12 Assessment/Plan VTE Prophylaxis VTE Prophylaxis Intervention: SCD's Lines/Catheters [facility] Type (from [facility] PICC Line Central line still needed: Yes Urinary Cath still in place: No Assessment/Plan Chief Complaint/Hosp Course ASSESSMENT AND PLAN: - Possible small bowel obstruction, resolving. - Acute kidney injury, resolving. - Severe hyperkalemia on admission, patient potassium has been fluctuating from hyperkalemia to hypokalemia. Dr Spain is following pt in nephrology consultation. - Hyponatremia, continue IV fluids monitor electrolytes. 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 Further recommendations based on clinical course. Plan of care discussed with Dr. Paez. Problems: Subjective 24 Hr Interval Summary Free Text/Dictation Potassium is 2. 6 in the morning, replacement is done, sinus rhythm sinus tach on telemetry, patient denies any nausea vomiting, continue to monitor on telemetry. Exam/Review of Systems Vital Signs Vitals Vital Signs Date Time Temp Pulse Resp B/P Pulse Ox O2 Delivery O2 Flow Rate FiO2 11/01/16 12:39 100 11/01/16 11:42 98.2 19 106/44 100 Intake and Output 10/31/16 10/31/16 11/01/16 15:00 23:00 07:00 Intake Total 1200 ml 1420 ml Output Total 2200 ml 1200 ml Balance -1000 ml 220 ml Exam Constitutional: alert, oriented Psych: no complaints Head: atraumatic, normocephalic Eyes: nl conjunctiva ENMT: nl external ears & nose Neck: non-tender, supple Respiratory: clear to auscultation, normal air movement Cardiovascular: nl pulses, regular rate and rhythm Gastrointestinal: non-tender, other (Ileostomy), soft Musculoskeletal: nl extremities to inspection Extremities: normal pulses 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: REGULATORY COMPLIANCE SPECIALIST II-XII intact Results Result Diagram: 11/01/1615 11/01/16 0615 Results 24 hrs Laboratory Tests Test 11/01/16 06:15 White Blood Count 5.0 Red Blood Count 2.43 L Hemoglobin 7.7 L Hematocrit 22.4 L Mean Corpuscular Volume 92.2 Mean Corpuscular Hemoglobin 31.7 Mean Corpuscular Hemoglobin Concent 34.4 Red Cell Distribution Width 12.3 Platelet Count 359 Mean Platelet Volume 9.4 Neutrophils % 75.8 Lymphocytes % 7.5 L Monocytes % 4.6 Eosinophils % 11.3 H Basophils % 0.4 Nucleated Red Blood Cells % 0.0 Neutrophils # 3.8 Lymphocytes # 0.4 L Monocytes # 0.2 L Eosinophils # 0.6 H Basophils # 0.0 Nucleated Red Blood Cells # 0.0 Sodium Level 136 Potassium Level 2.6 *L Chloride Level 103 Carbon Dioxide Level 24 Anion Gap 12 Blood Urea Nitrogen 12 Creatinine 0.75 Glucose Level 69 L Calcium Level 7.8 L Magnesium Level 2.1 # Medications Medications Current Medications Ondansetron HCl (Zofran Inj) 4 mg Q6H PRN IV NAUSEA AND/OR VOMITING; Start at 23:30 Morphine Sulfate (morphine) 4 mg Q6 PRN IV PAIN LEVEL 7-10; Start 10/26/16 at 23:45 IV Flush (NS 10 ml) 10 ml PRN PRN IV FLUSH LINE; Start 10/27/16 at 19:30 Mupirocin 1 applic 1 applic BID TOP Last administered on 11/01/16 09:55; Admin Dose 1 APPLIC; Start 10/28/16 at 21:00 Potassium Chloride/Sodium Chloride 1,000 ml @ 100 mls/hr Q10H IV Last administered on 11/01/16 04:45; Admin Dose 100 MLS/HR; Start 11/01/16 at 04:30 Potassium Chloride (KCl 40 MEQ/250 ML NS) 250 ml @ 62.5 mls/hr ONCE IVPB Last administered on 11/01/16 09:45; Admin Dose 62.5 MLS/HR; Start 11/01/16 at 10:00 ; Stop 11/01/16 at 13:59 ROMI ESPINO Nov 01, 2016 13:14
[2016-11-02] VITALS (12 sets, daily range): BP systolic 81–96; BP diastolic 47–53; PULSE 85–100; RESP 18–20
[2016-11-02 07:35] LABS: ADD SCAN DIFF NO
[2016-11-02 07:41] LABS: ABNORMAL IP MESSAGE 1; HEMATOCRIT 34.7 % (37.0-47.0); HEMOGLOBIN 12.1 g/dl (12.0-16.0); MEAN CORPUSCULAR HEMOGLOBIN 31.3 pg (29.0-33.0); MEAN CORPUSCULAR HGB CONC 34.9 g/dl (32.0-37.0); MEAN CORPUSCULAR VOLUME 89.9 fl (82.0-101.0); MEAN PLATELET VOLUME 9.3 fl (7.4-10.4); PLATELET COUNT 414 10^3/UL (140-415); RED BLOOD COUNT 3.86 10^6/ul (4.20-5.40); RED CELL DISTRIBUTION WIDTH 13.2 % (11.5-14.5); WHITE BLOOD COUNT 6.5 10^3/ul (4.8-10.8)
[2016-11-02 08:06] LABS: CALCIUM 8.8 mg/dl (8.4-10.2); CREATININE 0.7 mg/dl (0.44-1.00); MAGNESIUM 1.7 mg/dl (1.7-2.5); POTASSIUM 3.2 mmol/L (3.5-5.1)
[2016-11-02] MEDS: NS + KCL 20 MEQ 1,000 ML IV SCH ×2 (09:01→20:58)
[2016-11-02] MEDS: MUPIROCIN 2% 22 GM OINT TOP SCH ×2 (09:06→21:00)
[2016-11-02 09:50] LABS: BASOPHIL # 0.1 10^3/ul (0.0-0.1); EOSINOPHILS # 0.7 10^3/ul (0.0-0.5); LYMPHOCYTES # 0.6 10^3/ul (0.8-2.9); MONOCYTE # 0.3 10^3/ul (0.3-0.9); NEUTROPHIL # 4.8 10^3/ul (1.6-7.5)
[2016-11-02] MEDS: MAGNESIUM CHLORIDE (SR) 64 MG TAB PO SCH ×2 (12:25→20:58)
[2016-11-02] MEDS: POTASSIUM CHLORIDE 20 MEQ POWDER FOR ORAL SOLN PO SCH ×2 (12:27→20:58)
[2016-11-02] MEDS ORDERED: POTASSIUM CHLORIDE (SR) 20 MEQ TAB PO SCH (13:00)
--- NOTE | 2016-11-02 18:04 | CONS ---
Date/Time of Note Date/Time of Note DATE: 11/02/16 TIME: 18:02 Assessment/Plan Assessment/Plan Additional Assessment/Plan 1. Severe hypokalemia with a potassium of 2.6. The patient's potassium has been fluctuating from hypokalemia to hyperkalemia depending on the potassium replacement. 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 Severe hyponatremia, sodium 116 on admission.-now improving to 136 3. Acute kidney injury with a creatinine 2.5 on admission secondary to prerenal azotemia causing ischemic acute tubular necrosis. 4. History of colectomy with right-sided ileostomy. 5. History of Hirschsprung disease, status post multiple abdominal surgeries as per the patient. PLAN: IK 3.2, today mag normal will keep her on agressive K replacement, Cr improved to normal good urine output will continue to follow up on patient Consultation Date/Type/Reason Admit Date/Time Oct 26, 2016 at 20:25 Initial Consult Date October Type of Consultation: NEPHROLOGY Referring Provider: CARLOS RODRIGUEZ MD 24 HR Interval Summary Free Text/Dictation K 3.2, replaced still having ostomy output Exam/Review of Systems Vital Signs Vitals Vital Signs Date Time Temp Pulse Resp B/P Pulse Ox O2 Delivery O2 Flow Rate FiO2 11/02/16 16:37 90 11/02/16 16:33 98.3 18 89/49 96 Intake and Output 11/01/16 11/01/16 11/02/16 15:00 23:00 07:00 Intake Total 2700 ml 1850 ml Output Total 2500 ml 2450 ml Balance 200 ml -600 ml Exam GENERAL: Awake, alert. No distress. HEENT: Normal. Oropharynx clear. NECK: Supple. No JVD, no lymphadenopathy. LUNGS: Clear to auscultation. No crackles, no wheezes. HEART: S1, S2 with regular rhythm. No murmur. ABDOMEN: Soft, tender to palpation diffusely. No rebound, no guarding. Bowel sounds are present. EXTREMITIES: No clubbing, cyanosis, edema. NEUROLOGICAL: Nonfocal, intact. PSYCHIATRIC: Appropriate affect and mood. Results Result Diagram: 11/02/16 0555 11/02/16 0555 Results 24 hrs Laboratory Tests Test 11/02/16 05:55 White Blood Count 6.5 # Red Blood Count 3.86 #L Hemoglobin 12.1 # Hematocrit 34.7 #L Mean Corpuscular Volume 89.9 Mean Corpuscular Hemoglobin 31.3 Mean Corpuscular Hemoglobin Concent 34.9 Red Cell Distribution Width 13.2 Platelet Count 414 Mean Platelet Volume 9.3 Neutrophils % 74.0 Lymphocytes % 9.0 L Monocytes % 4.0 Eosinophils % 11.0 H Basophils % 2.0 Neutrophils # 4.8 Lymphocytes # 0.6 L Monocytes # 0.3 Eosinophils # 0.7 H Basophils # 0.1 Sodium Level 138 Potassium Level 3.2 L Chloride Level 108 Carbon Dioxide Level 24 Anion Gap 9 Blood Urea Nitrogen 8 Creatinine 0.70 Glucose Level 74 Calcium Level 8.8 Magnesium Level 1.7 Medications Medications Current Medications Ondansetron HCl (Zofran Inj) 4 mg Q6H PRN IV NAUSEA AND/OR VOMITING; Start at 23:30 Morphine Sulfate (morphine) 4 mg Q6 PRN IV PAIN LEVEL 7-10; Start 10/26/16 at 23:45 IV Flush (NS 10 ml) 10 ml PRN PRN IV FLUSH LINE; Start 10/27/16 at 19:30 Mupirocin 1 applic 1 applic BID TOP Last administered on 11/02/16 09:06; Admin Dose 1 APPLIC; Start 10/28/16 at 21:00 Potassium Chloride/Sodium Chloride (NS-KCl 20 Meq) 1,000 ml @ 100 mls/hr Q10H IV Last administered on 11/02/16 09:01; Admin Dose 100 MLS/HR; Start 11/01/16 at 04:30 Magnesium Chloride (Mag 64) 64 mg BID PO Last administered on 11/02/16 12:25; Admin Dose 64 MG; Start 11/02/16 at 11:30 Potassium Chloride (Potassium Chloride Pwd/Soln) 20 meq TID PO Last administered on 11/02/16 12:27; Admin Dose 20 MEQ; Start 11/02/16 at 13:00 ROHAN VELÁZQUEZ MD Nov 02, 2016 18:04
--- NOTE | 2016-11-02 19:26 | PN ---
Date/Time of Note Date/Time of Note DATE: 11/02/16 TIME: 19:23 Assessment/Plan VTE Prophylaxis VTE Prophylaxis Intervention: other Lines/Catheters IV Catheter Type (from [facility]): PICC Line Urinary Cath still in place: No Assessment/Plan Assessment/Plan - Hypokalemia- repleted, am labs - Possible small bowel obstruction, resolving. - Acute kidney injury, resolving. - Severe hyperkalemia on admission, patient potassium has been fluctuating from hyperkalemia to hypokalemia. Dr Spain is following pt in nephrology consultation. - Hyponatremia, continue IV fluids monitor electrolytes. 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 Further recommendations based on clinical course. Plan of care discussed with Dr. Paez. Subjective 24 Hr Interval Summary Free Text/Dictation nad, wants solid food, mother at bed side - all Qs answered.c/o abdominal pain. dw staff. Eyes: no complaints ENT: no complaints Respiratory: no complaints Cardiovascular: no complaints Gastrointestinal: pain Genitourinary: no complaints Musculoskeletal: no complaints Skin: no complaints Neurologic: no complaints Endocrine: no complaints Exam/Review of Systems Vital Signs Vitals Vital Signs Date Time Temp Pulse Resp B/P Pulse Ox O2 Delivery O2 Flow Rate FiO2 11/02/16 16:37 90 11/02/16 16:33 98.3 18 89/49 96 Intake and Output 11/01/16 11/01/16 11/02/16 15:00 23:00 07:00 Intake Total 2700 ml 1850 ml Output Total 2500 ml 2450 ml Balance 200 ml -600 ml Exam Constitutional: alert, frail, oriented Psych: no complaints Head: atraumatic Eyes: EOMI ENMT: nl external ears & nose Neck: non-tender Respiratory: clear to auscultation Cardiovascular: nl pulses Gastrointestinal: non-tender, other, soft Musculoskeletal: nl extremities to inspection Extremities: normal pulses 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: nl speech, other Lymph: nontender Results Result Diagram: 11/02/16 0555 11/02/16 0555 Results 24 hrs Laboratory Tests Test 11/02/16 05:55 White Blood Count 6.5 # Red Blood Count 3.86 #L Hemoglobin 12.1 # Hematocrit 34.7 #L Mean Corpuscular Volume 89.9 Mean Corpuscular Hemoglobin 31.3 Mean Corpuscular Hemoglobin Concent 34.9 Red Cell Distribution Width 13.2 Platelet Count 414 Mean Platelet Volume 9.3 Neutrophils % 74.0 Lymphocytes % 9.0 L Monocytes % 4.0 Eosinophils % 11.0 H Basophils % 2.0 Neutrophils # 4.8 Lymphocytes # 0.6 L Monocytes # 0.3 Eosinophils # 0.7 H Basophils # 0.1 Sodium Level 138 Potassium Level 3.2 L Chloride Level 108 Carbon Dioxide Level 24 Anion Gap 9 Blood Urea Nitrogen 8 Creatinine 0.70 Glucose Level 74 Calcium Level 8.8 Magnesium Level 1.7 Medications Medications Current Medications Ondansetron HCl (Zofran Inj) 4 mg Q6H PRN IV NAUSEA AND/OR VOMITING; Start at 23:30 Morphine Sulfate (morphine) 4 mg Q6 PRN IV PAIN LEVEL 7-10; Start 10/26/16 at 23:45 IV Flush (NS 10 ml) 10 ml PRN PRN IV FLUSH LINE; Start 10/27/16 at 19:30 Mupirocin 1 applic 1 applic BID TOP Last administered on 11/02/16 09:06; Admin Dose 1 APPLIC; Start 10/28/16 at 21:00 Potassium Chloride/Sodium Chloride (NS-KCl 20 Meq) 1,000 ml @ 100 mls/hr Q10H IV Last administered on 11/02/16 09:01; Admin Dose 100 MLS/HR; Start 11/01/16 at 04:30 Magnesium Chloride (Mag 64) 64 mg BID PO Last administered on 11/02/16 12:25; Admin Dose 64 MG; Start 11/02/16 at 11:30 Potassium Chloride (Potassium Chloride Pwd/Soln) 20 meq TID PO Last administered on 11/02/16 12:27; Admin Dose 20 MEQ; Start 11/02/16 at 13:00 DEVENDRA OGMES Nov 02, 2016 19:26
[2016-11-03] VITALS (11 sets, daily range): BP systolic 88–98; BP diastolic 50–90; PULSE 96–111; RESP 16–22
[2016-11-03] MEDS: NS + KCL 20 MEQ 1,000 ML IV SCH ×2 (05:45→11:57)
[2016-11-03 07:48] LABS: ABNORMAL IP MESSAGE 1; ADD SCAN DIFF NO; BASOPHILS % 0.4 % (0.0-2.0); EOSINOPHILS # 0.7 10^3/ul (0.0-0.5); HEMATOCRIT 35.5 % (37.0-47.0); HEMOGLOBIN 12.5 g/dl (12.0-16.0); LYMPHOCYTES # 0.6 10^3/ul (0.8-2.9); LYMPHOCYTES % 8.3 % (15.0-51.0); MEAN CORPUSCULAR HEMOGLOBIN 31.6 pg (29.0-33.0); MEAN CORPUSCULAR HGB CONC 35.2 g/dl (32.0-37.0); MEAN CORPUSCULAR VOLUME 89.6 fl (82.0-101.0); MEAN PLATELET VOLUME 9.5 fl (7.4-10.4); MONOCYTE # 0.4 10^3/ul (0.3-0.9); MONOCYTES % 5.7 % (0.0-11.0); NEUTROPHIL # 5.2 10^3/ul (1.6-7.5); NEUTROPHILS % 75.2 % (39.0-77.0); PLATELET COUNT 462 10^3/UL (140-415); RED BLOOD COUNT 3.96 10^6/ul (4.20-5.40); RED CELL DISTRIBUTION WIDTH 13.3 % (11.5-14.5)
[2016-11-03 08:14] LABS: POTASSIUM 4.2 mmol/L (3.5-5.1)
[2016-11-03 08:17] LABS: CALCIUM 9.5 mg/dl (8.4-10.2); CREATININE 0.79 mg/dl (0.44-1.00)
[2016-11-03] MEDS: POTASSIUM CHLORIDE 20 MEQ POWDER FOR ORAL SOLN PO SCH ×4 (09:48→20:29)
[2016-11-03] MEDS: MAGNESIUM CHLORIDE (SR) 64 MG TAB PO SCH ×3 (09:49→20:29)
[2016-11-03] MEDS: MUPIROCIN 2% 22 GM OINT TOP SCH ×2 (10:01→20:36)
--- NOTE | 2016-11-03 17:50 | PN ---
Date/Time of Note Date/Time of Note DATE: 11/03/16 TIME: 17:38 Assessment/Plan VTE Prophylaxis VTE Prophylaxis Intervention: other Lines/Catheters IV Catheter Type (from [facility]): PICC Line Urinary Cath still in place: No Assessment/Plan Assessment/Plan - Hypokalemia- repleted, am labs - Possible small bowel obstruction, resolving. - Acute kidney injury, resolving. - Severe hyperkalemia on admission, patient potassium has been fluctuating from hyperkalemia to hypokalemia. Dr Spain is following pt in nephrology consultation. - Hyponatremia, continue IV fluids monitor electrolytes. 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 Further recommendations based on clinical course. Plan of care discussed with Dr. Paez. Subjective 24 Hr Interval Summary Free Text/Dictation No acute distress noted. Magnesium is 1.2 today we will replete and check magnesium in the morning. Denies any chest pain shortness of breath abdominal pain nausea vomiting. Discussed with the staff. Constitutional: other (Generalized weakness) Eyes: no complaints ENT: no complaints Respiratory: no complaints Cardiovascular: no complaints Gastrointestinal: no complaints Genitourinary: no complaints Musculoskeletal: no complaints Skin: no complaints Neurologic: no complaints Exam/Review of Systems Vital Signs Vitals Vital Signs Date Time Temp Pulse Resp B/P Pulse Ox O2 Delivery O2 Flow Rate FiO2 11/03/16 16:27 110 11/03/16 16:05 98.7 18 89/54 100 Intake and Output 11/02/16 11/02/16 11/03/16 15:00 23:00 07:00 Intake Total 1950 ml 2000 ml Output Total 1750 ml Balance 200 ml 2000 ml Exam Constitutional: alert, frail, oriented Psych: no complaints Eyes: EOMI ENMT: nl external ears & nose Respiratory: clear to auscultation Cardiovascular: nl pulses Gastrointestinal: non-tender, other (Colostomy intact), soft Musculoskeletal: nl extremities to inspection Extremities: normal pulses 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: nl mental status, nl speech Skin: other Lymph: nontender Results Result Diagram: 11/03/16 0500 11/03/16 0650 Results 24 hrs Laboratory Tests Test 11/02/16 21:15 11/03/16 05:00 11/03/16 06:50 Phosphorus Level 2.8 White Blood Count 7.0 Red Blood Count 3.96 L Hemoglobin 12.5 Hematocrit 35.5 L Mean Corpuscular Volume 89.6 Mean Corpuscular Hemoglobin 31.6 Mean Corpuscular Hemoglobin Concent 35.2 Red Cell Distribution Width 13.3 Platelet Count 462 H Mean Platelet Volume 9.5 Neutrophils % 75.2 Lymphocytes % 8.3 L Monocytes % 5.7 Eosinophils % 10.0 H Basophils % 0.4 Nucleated Red Blood Cells % 0.0 Neutrophils # 5.2 Lymphocytes # 0.6 L Monocytes # 0.4 Eosinophils # 0.7 H Basophils # 0.0 Nucleated Red Blood Cells # 0.0 Sodium Level 140 Potassium Level 4.2 Chloride Level 104 Carbon Dioxide Level 25 Anion Gap 15 Blood Urea Nitrogen 19 # Creatinine 0.79 Glucose Level 98 Calcium Level 9.5 Magnesium Level 1.2 L Medications Medications Current Medications Ondansetron HCl (Zofran Inj) 4 mg Q6H PRN IV NAUSEA AND/OR VOMITING; Start at 23:30 Morphine Sulfate (morphine) 4 mg Q6 PRN IV PAIN LEVEL 7-10; Start 10/26/16 at 23:45 IV Flush (NS 10 ml) 10 ml PRN PRN IV FLUSH LINE; Start 10/27/16 at 19:30 Mupirocin 1 applic 1 applic BID TOP Last administered on 11/03/16 10:01; Admin Dose 1 APPLIC; Start 10/28/16 at 21:00 Potassium Chloride/Sodium Chloride (NS-KCl 20 Meq) 1,000 ml @ 100 mls/hr Q10H IV Last administered on 11/03/16 11:57; Admin Dose 100 MLS/HR; Start 11/01/16 at 04:30 Magnesium Chloride (Mag 64) 64 mg BID PO Last administered on 11/03/16 11:57; Admin Dose 64 MG; Start 11/02/16 at 11:30 Potassium Chloride (Potassium Chloride Pwd/Soln) 20 meq TID PO Last administered on 11/03/16 11:57; Admin Dose 20 MEQ; Start 11/02/16 at 13:00 DEVENDRA GOMES Nov 03, 2016 17:48
[2016-11-03] MEDS ORDERED: MAGNESIUM SULFATE 2 GM/50 ML ONE (17:53)
[2016-11-03] MEDS ORDERED: MAGNESIUM SULFATE 3 GM in SOD CHLORIDE 0.9% 100 ML IVPB ONE (18:00)
[2016-11-04] VITALS (12 sets, daily range): BP systolic 93–125; BP diastolic 52–63; PULSE 92–128; RESP 16–20
[2016-11-04] MEDS: NS + KCL 20 MEQ 1,000 ML IV SCH ×2 (02:30→06:08)
[2016-11-04 07:16] LABS: ADD SCAN DIFF NO
[2016-11-04 07:23] LABS: BASOPHIL # 0.1 10^3/ul (0.0-0.1); BASOPHILS % 0.6 % (0.0-2.0); EOSINOPHILS # 0.8 10^3/ul (0.0-0.5); EOSINOPHILS % 9.7 % (0.0-7.0); HEMATOCRIT 39.7 % (37.0-47.0); LYMPHOCYTES # 0.7 10^3/ul (0.8-2.9); LYMPHOCYTES % 7.6 % (15.0-51.0); MEAN CORPUSCULAR HEMOGLOBIN 31.7 pg (29.0-33.0); MEAN CORPUSCULAR HGB CONC 35.3 g/dl (32.0-37.0); MEAN PLATELET VOLUME 9.3 fl (7.4-10.4); MONOCYTE # 0.5 10^3/ul (0.3-0.9); MONOCYTES % 5.8 % (0.0-11.0); NEUTROPHIL # 6.6 10^3/ul (1.6-7.5); NEUTROPHILS % 75.8 % (39.0-77.0); PLATELET COUNT 567 10^3/UL (140-415); RED BLOOD COUNT 4.41 10^6/ul (4.20-5.40); RED CELL DISTRIBUTION WIDTH 12.9 % (11.5-14.5); WHITE BLOOD COUNT 8.6 10^3/ul (4.8-10.8)
[2016-11-04 07:43] LABS: CALCIUM 9.8 mg/dl (8.4-10.2); CREATININE 0.84 mg/dl (0.44-1.00); POTASSIUM 5.4 mmol/L (3.5-5.1)
[2016-11-04] MEDS: POTASSIUM CHLORIDE 20 MEQ POWDER FOR ORAL SOLN PO SCH (09:00)
[2016-11-04] MEDS: MAGNESIUM CHLORIDE (SR) 64 MG TAB PO SCH (09:00)
[2016-11-04] MEDS: MUPIROCIN 2% 22 GM OINT TOP SCH ×2 (09:11→21:03)
[2016-11-04] MEDS: SOD CHLORIDE 0.9% 1,000 ML IV SCH ×2 (10:47→21:02)
--- NOTE | 2016-11-04 11:59 | CONS ---
Date/Time of Note Date/Time of Note DATE: 11/04/16 TIME: 11:58 Assessment/Plan Assessment/Plan Additional Assessment/Plan 1. Severe hypokalemia with a potassium of 2.6. The patient's potassium has been fluctuating from hypokalemia to hyperkalemia depending on the potassium replacement. 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 Severe hyponatremia, sodium 116 on admission.-now improving to 136 3. Acute kidney injury with a creatinine 2.5 on admission secondary to prerenal azotemia causing ischemic acute tubular necrosis. 4. History of colectomy with right-sided ileostomy. 5. History of Hirschsprung disease, status post multiple abdominal surgeries as per the patient. PLAN: K 5.8, mag 2.4- d/c K and Mag PO replacement D/C KCL from IV fluids good urine output will continue to follow up on patient Consultation Date/Type/Reason Admit Date/Time Oct 26, 2016 at 20:25 Initial Consult Date October Type of Consultation: NEPHROLOGY Referring Provider: CARLOS RODRIGUEZ MD 24 HR Interval Summary Free Text/Dictation K has been high, Mag also high, Ostomy output stable Exam/Review of Systems Vital Signs Vitals Vital Signs Date Time Temp Pulse Resp B/P Pulse Ox O2 Delivery O2 Flow Rate FiO2 11/04/16 08:48 97 11/04/16 07:40 97.6 20 125/58 98 Intake and Output 11/03/16 11/03/16 11/04/16 15:00 23:00 07:00 Intake Total 1700 ml 450 ml Output Total 400 ml Balance 1300 ml 450 ml Exam GENERAL: Awake, alert. No distress. HEENT: Normal. Oropharynx clear. NECK: Supple. No JVD, no lymphadenopathy. LUNGS: Clear to auscultation. No crackles, no wheezes. HEART: S1, S2 with regular rhythm. No murmur. ABDOMEN: Soft, tender to palpation diffusely. No rebound, no guarding. Bowel sounds are present. EXTREMITIES: No clubbing, cyanosis, edema. NEUROLOGICAL: Nonfocal, intact. PSYCHIATRIC: Appropriate affect and mood. Results Result Diagram: 11/04/1662011/04/16620 Results 24 hrs Laboratory Tests Test 11/04/16 06:21 White Blood Count 8.6 # Red Blood Count 4.41 Hemoglobin 14.0 Hematocrit 39.7 Mean Corpuscular Volume 90.0 Mean Corpuscular Hemoglobin 31.7 Mean Corpuscular Hemoglobin Concent 35.3 Red Cell Distribution Width 12.9 Platelet Count 567 #H Mean Platelet Volume 9.3 Neutrophils % 75.8 Lymphocytes % 7.6 L Monocytes % 5.8 Eosinophils % 9.7 H Basophils % 0.6 Nucleated Red Blood Cells % 0.0 Neutrophils # 6.6 Lymphocytes # 0.7 L Monocytes # 0.5 Eosinophils # 0.8 H Basophils # 0.1 Nucleated Red Blood Cells # 0.0 Sodium Level 133 L Potassium Level 5.4 H Chloride Level 104 Carbon Dioxide Level 23 Anion Gap 11 Blood Urea Nitrogen 23 H Creatinine 0.84 Glucose Level 79 Calcium Level 9.8 Magnesium Level 2.8 #H Medications Medications Current Medications Ondansetron HCl (Zofran Inj) 4 mg Q6H PRN IV NAUSEA AND/OR VOMITING; Start at 23:30 Morphine Sulfate (morphine) 4 mg Q6 PRN IV PAIN LEVEL 7-10; Start 10/26/16 at 23:45 IV Flush (NS 10 ml) 10 ml PRN PRN IV FLUSH LINE; Start 10/27/16 at 19:30 Mupirocin 1 applic 1 applic BID TOP Last administered on 11/04/16 09:11; Admin Dose 1 APPLIC; Start 10/28/16 at 21:00 Sodium Chloride (NS) 1,000 ml @ 100 mls/hr Q10H IV Last administered on 10:47; Admin Dose 100 MLS/HR; Start 11/04/16 at 11:00 ROHAN VELÁZQUEZ MD Nov 04, 2016 11:59
--- NOTE | 2016-11-04 15:40 | PN ---
Date/Time of Note Date/Time of Note DATE: 11/04/16 TIME: 15:39 Assessment/Plan VTE Prophylaxis VTE Prophylaxis Intervention: SCD's Lines/Catheters [facility] ([facility] PICC Line Central line still needed: Yes Urinary Cath still in place: No Assessment/Plan Chief Complaint/Hosp Course ASSESSMENT AND PLAN: - Possible small bowel obstruction, resolved. - Acute kidney injury, resolving. - Severe hyperkalemia on admission, patient potassium has been fluctuating from hyperkalemia to hypokalemia. Dr Spain is following pt in nephrology consultation. - Hyponatremia, continue IV fluids monitor electrolytes. 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 Further recommendations based on clinical course. Plan of care discussed with Dr. Paez. Problems: Subjective 24 Hr Interval Summary Free Text/Dictation Patient's potassium is 5.4 today, IV fluids changed per nephrology, patient denies any nausea vomiting, remains hemodynamically stable. Exam/Review of Systems Vital Signs Vitals Vital Signs Date Time Temp Pulse Resp B/P Pulse Ox O2 Delivery O2 Flow Rate FiO2 11/04/16 12:17 98.0 98 20 93/52 98 Intake and Output 11/03/16 11/03/16 11/04/16 15:00 23:00 07:00 Intake Total 1700 ml 450 ml Output Total 400 ml Balance 1300 ml 450 ml Exam Constitutional: alert, oriented Psych: no complaints Head: atraumatic, normocephalic Eyes: nl conjunctiva ENMT: nl external ears & nose Neck: non-tender, supple Respiratory: clear to auscultation, normal air movement Cardiovascular: nl pulses, regular rate and rhythm Gastrointestinal: non-tender, other (Ileostomy), soft Musculoskeletal: nl extremities to inspection Extremities: normal pulses 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: CHEMISTS II-XII intact Results Result Diagram: 11/04/1621 11/04/16 0621 Results 24 hrs Laboratory Tests Test 11/04/16 06:21 White Blood Count 8.6 # Red Blood Count 4.41 Hemoglobin 14.0 Hematocrit 39.7 Mean Corpuscular Volume 90.0 Mean Corpuscular Hemoglobin 31.7 Mean Corpuscular Hemoglobin Concent 35.3 Red Cell Distribution Width 12.9 Platelet Count 567 #H Mean Platelet Volume 9.3 Neutrophils % 75.8 Lymphocytes % 7.6 L Monocytes % 5.8 Eosinophils % 9.7 H Basophils % 0.6 Nucleated Red Blood Cells % 0.0 Neutrophils # 6.6 Lymphocytes # 0.7 L Monocytes # 0.5 Eosinophils # 0.8 H Basophils # 0.1 Nucleated Red Blood Cells # 0.0 Sodium Level 133 L Potassium Level 5.4 H Chloride Level 104 Carbon Dioxide Level 23 Anion Gap 11 Blood Urea Nitrogen 23 H Creatinine 0.84 Glucose Level 79 Calcium Level 9.8 Magnesium Level 2.8 #H Medications Medications Current Medications Ondansetron HCl (Zofran Inj) 4 mg Q6H PRN IV NAUSEA AND/OR VOMITING; Start at 23:30 Morphine Sulfate (morphine) 4 mg Q6 PRN IV PAIN LEVEL 7-10; Start 10/26/16 at 23:45 IV Flush (NS 10 ml) 10 ml PRN PRN IV FLUSH LINE; Start 10/27/16 at 19:30 Mupirocin 1 applic 1 applic BID TOP Last administered on 11/04/16 09:11; Admin Dose 1 APPLIC; Start 10/28/16 at 21:00 Sodium Chloride (NS) 1,000 ml @ 100 mls/hr Q10H IV Last administered on 10:47; Admin Dose 100 MLS/HR; Start 11/04/16 at 11:00 ROMI ESPINO Nov 04, 2016 15:40
[2016-11-05] VITALS (13 sets, daily range): BP systolic 82–111; BP diastolic 51–61; PULSE 83–109; RESP 18–20
[2016-11-05] MEDS: SOD CHLORIDE 0.9% 1,000 ML IV SCH ×4 (07:00→21:00)
[2016-11-05 08:03] LABS: POTASSIUM 3.7 mmol/L (3.5-5.1)
[2016-11-05 08:05] LABS: CREATININE 0.86 mg/dl (0.44-1.00)
[2016-11-05 08:06] LABS: CALCIUM 9.9 mg/dl (8.4-10.2)
[2016-11-05] MEDS: MUPIROCIN 2% 22 GM OINT TOP SCH ×3 (08:52→21:21)
--- NOTE | 2016-11-05 11:47 | CONS ---
Date/Time of Note Date/Time of Note DATE: 11/05/16 TIME: 11:44 Assessment/Plan Assessment/Plan Additional Assessment/Plan 1. Severe hypokalemia with a potassium of 2.6. The patient's potassium has been fluctuating from hypokalemia to hyperkalemia depending on the potassium replacement. 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 Severe hyponatremia, sodium 116 on admission.-now improved 3. Acute kidney injury with a creatinine 2.5 on admission secondary to prerenal azotemia causing ischemic acute tubular necrosis.-now improved 4. History of colectomy with right-sided ileostomy. 5. History of Hirschsprung disease, status post multiple abdominal surgeries as per the patient. PLAN: Mag and Po4 replacement has been discontinued yesterday, today k normal, will order BMP with magnesium in AM continue Plain IV fluids good urine output will continue to follow up on patient Consultation Date/Type/Reason Admit Date/Time Oct 26, 2016 at 20:25 Initial Consult Date October Type of Consultation: NEPHROLOGY Reason for Consultation hyponatremia, Hypokalemia, Hypomagnesemia Referring Provider: CARLOS RODRIGUEZ MD 24 HR Interval Summary Free Text/Dictation doing ok, Today K normal, off replacements today Exam/Review of Systems Vital Signs Vitals Vital Signs Date Time Temp Pulse Resp B/P Pulse Ox O2 Delivery O2 Flow Rate FiO2 11/05/16 09:09 105 11/05/16 08:03 98.4 18 90/55 100 Intake and Output 11/04/16 11/04/16 11/05/16 15:00 23:00 07:00 Intake Total 350 ml 2200 ml 1200 ml Output Total 1950 ml 1200 ml Balance 350 ml 250 ml 0 ml Exam GENERAL: Awake, alert. No distress. HEENT: Normal. Oropharynx clear. NECK: Supple. No JVD, no lymphadenopathy. LUNGS: Clear to auscultation. No crackles, no wheezes. HEART: S1, S2 with regular rhythm. No murmur. ABDOMEN: Soft, tender to palpation diffusely. No rebound, no guarding. Bowel sounds are present. EXTREMITIES: No clubbing, cyanosis, edema. NEUROLOGICAL: Nonfocal, intact. PSYCHIATRIC: Appropriate affect and mood. Results Result Diagram: 11/04/1621 11/05/16 0640 Results 24 hrs Laboratory Tests Test 11/05/16 06:40 Sodium Level 140 Potassium Level 3.7 Chloride Level 100 Carbon Dioxide Level 24 Anion Gap 20 #H Blood Urea Nitrogen 29 H Creatinine 0.86 Glucose Level 135 # Calcium Level 9.9 Medications Medications Current Medications Ondansetron HCl (Zofran Inj) 4 mg Q6H PRN IV NAUSEA AND/OR VOMITING; Start at 23:30 Morphine Sulfate (morphine) 4 mg Q6 PRN IV PAIN LEVEL 7-10; Start 10/26/16 at 23:45 IV Flush (NS 10 ml) 10 ml PRN PRN IV FLUSH LINE; Start 10/27/16 at 19:30 Mupirocin 1 applic 1 applic BID TOP Last administered on 11/05/16 09:43; Admin Dose 1 APPLIC; Start 10/28/16 at 21:00 Sodium Chloride (NS) 1,000 ml @ 100 mls/hr Q10H IV Last administered on 09:44; Admin Dose 100 MLS/HR; Start 11/04/16 at 11:00 ROHAN VELÁZQUEZ MD Nov 05, 2016 11:47
--- NOTE | 2016-11-05 16:54 | PN ---
Date/Time of Note Date/Time of Note DATE: 11/05/16 TIME: 16:52 Assessment/Plan VTE Prophylaxis VTE Prophylaxis Intervention: SCD's Lines/Catheters [facility] C[facility] Type ([facility] PICC Line Central line still needed: Yes Urinary Cath still in place: No Assessment/Plan Chief Complaint/Hosp Course ASSESSMENT AND PLAN: - Possible small bowel obstruction, resolved. - Acute kidney injury, resolved - Severe hyperkalemia on admission, patient potassium has been fluctuating from hyperkalemia to hypokalemia. Dr Spain is following pt in nephrology consultation. - Hyponatremia, continue IV fluids monitor electrolytes. 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 Further recommendations based on clinical course. Plan of care discussed with Dr. Paez. Problems: Subjective 24 Hr Interval Summary Free Text/Dictation Patient's continues on IV fluids, denies any nausea vomiting. Continues to be tachycardic. Exam/Review of Systems Vital Signs Vitals Vital Signs Date Time Temp Pulse Resp B/P Pulse Ox O2 Delivery O2 Flow Rate FiO2 11/05/16 16:30 109 11/05/16 16:16 98.6 18 97/52 97 Intake and Output 11/04/16 11/04/16 11/05/16 15:00 23:00 07:00 Intake Total 350 ml 2200 ml 1200 ml Output Total 1950 ml 1200 ml Balance 350 ml 250 ml 0 ml Exam Constitutional: alert, oriented Psych: no complaints Head: atraumatic, normocephalic Eyes: nl conjunctiva ENMT: nl external ears & nose Neck: non-tender, supple Respiratory: clear to auscultation, normal air movement Cardiovascular: nl pulses, regular rate and rhythm Gastrointestinal: non-tender, other (Ileostomy), soft Musculoskeletal: nl extremities to inspection Extremities: normal pulses 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 Results Result Diagram: 11/04/16 0621 11/05/16 0640 Results 24 hrs Laboratory Tests Test 11/05/16 06:40 Sodium Level 140 Potassium Level 3.7 Chloride Level 100 Carbon Dioxide Level 24 Anion Gap 20 #H Blood Urea Nitrogen 29 H Creatinine 0.86 Glucose Level 135 # Calcium Level 9.9 Medications Medications Current Medications Ondansetron HCl (Zofran Inj) 4 mg Q6H PRN IV NAUSEA AND/OR VOMITING; Start at 23:30 Morphine Sulfate (morphine) 4 mg Q6 PRN IV PAIN LEVEL 7-10; Start 10/26/16 at 23:45 IV Flush (NS 10 ml) 10 ml PRN PRN IV FLUSH LINE; Start 10/27/16 at 19:30 Mupirocin 1 applic 1 applic BID TOP Last administered on 11/05/16 09:43; Admin Dose 1 APPLIC; Start 10/28/16 at 21:00 Sodium Chloride (NS) 1,000 ml @ 100 mls/hr Q10H IV Last administered on 09:44; Admin Dose 100 MLS/HR; Start 11/04/16 at 11:00 ROMI ESPINO Nov 05, 2016 16:54
[2016-11-06] VITALS (12 sets, daily range): BP systolic 93–107; BP diastolic 55–63; PULSE 95–119; RESP 17–19
[2016-11-06] MEDS: SOD CHLORIDE 0.9% 1,000 ML IV SCH ×3 (03:00→23:00)
[2016-11-06 08:10] LABS: POTASSIUM 3.6 mmol/L (3.5-5.1)
[2016-11-06 08:13] LABS: CREATININE 0.89 mg/dl (0.44-1.00)
[2016-11-06 08:14] LABS: CALCIUM 9.2 mg/dl (8.4-10.2)
[2016-11-06] MEDS: MUPIROCIN 2% 22 GM OINT TOP SCH ×2 (09:03→21:00)
--- NOTE | 2016-11-06 17:04 | CONS ---
Date/Time of Note Date/Time of Note DATE: 11/06/16 TIME: 17:03 Assessment/Plan Assessment/Plan Additional Assessment/Plan 1. Severe hypokalemia with a potassium of 2.6. The patient's potassium has been fluctuating from hypokalemia to hyperkalemia depending on the potassium replacement. 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 Severe hyponatremia, sodium 116 on admission.-now improved 3. Acute kidney injury with a creatinine 2.5 on admission secondary to prerenal azotemia causing ischemic acute tubular necrosis.-now improved 4. History of colectomy with right-sided ileostomy. 5. History of Hirschsprung disease, status post multiple abdominal surgeries as per the patient. PLAN: electrolytes stable today continue Plain IV fluids good urine output will continue to follow up on patient Consultation Date/Type/Reason Admit Date/Time Oct 26, 2016 at 20:25 Initial Consult Date October Type of Consultation: NEPHROLOGY Referring Provider: CARLOS RODRIGUEZ MD 24 HR Interval Summary Free Text/Dictation Electrolytes stable today, pt c/o abd pain Exam/Review of Systems Vital Signs Vitals Vital Signs Date Time Temp Pulse Resp B/P Pulse Ox O2 Delivery O2 Flow Rate FiO2 11/06/16 16:36 119 11/06/16 16:13 98.4 19 99/62 97 11/06/16 05:43 Room Air Intake and Output 11/05/16 11/05/16 11/06/16 15:00 23:00 07:00 Intake Total 1800 ml 1200 ml Output Total 1200 ml 200 ml Balance 600 ml 1000 ml Results Result Diagram: 11/04/16 0621 11/06/16 0630 Results 24 hrs Laboratory Tests Test 11/06/16 06:30 Sodium Level 139 Potassium Level 3.6 Chloride Level 100 Carbon Dioxide Level 27 Anion Gap 16 Blood Urea Nitrogen 31 H Creatinine 0.89 Glucose Level 102 Calcium Level 9.2 Medications Medications Current Medications Ondansetron HCl (Zofran Inj) 4 mg Q6H PRN IV NAUSEA AND/OR VOMITING; Start at 23:30 Morphine Sulfate (morphine) 4 mg Q6 PRN IV PAIN LEVEL 7-10; Start 10/26/16 at 23:45 IV Flush (NS 10 ml) 10 ml PRN PRN IV FLUSH LINE; Start 10/27/16 at 19:30 Mupirocin 1 applic 1 applic BID TOP Last administered on 11/06/16 09:03; Admin Dose 1 APPLIC; Start 10/28/16 at 21:00 Sodium Chloride (NS) 1,000 ml @ 100 mls/hr Q10H IV Last administered on 14:16; Admin Dose 100 MLS/HR; Start 11/04/16 at 11:00 ROHAN VELÁZQUEZ MD Nov 06, 2016 17:04
--- NOTE | 2016-11-06 18:13 | PN ---
Date/Time of Note Date/Time of Note DATE: 11/06/16 TIME: 18:11 Assessment/Plan VTE Prophylaxis VTE Prophylaxis Intervention: SCD's Lines/Catheters IV Catheter Type (from [facility]): PICC Line Central line still needed: Yes Urinary Cath still in place: No Assessment/Plan Chief Complaint/Hosp Course ASSESSMENT AND PLAN: - Possible small bowel obstruction, resolved. - Acute kidney injury, resolved - Severe hyperkalemia on admission, patient potassium has been fluctuating from hyperkalemia to hypokalemia. Dr Spain is following pt in nephrology consultation. - Hyponatremia, continue IV fluids monitor electrolytes. 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 Patient is currently continued on IV fluids, anticipate discharged when electrolytes stable off IV fluids. Further recommendations based on clinical course. Plan of care discussed with Dr. Paez. Problems: Subjective 24 Hr Interval Summary Free Text/Dictation No complaints, tachycardic. Exam/Review of Systems Vital Signs Vitals Vital Signs Date Time Temp Pulse Resp B/P Pulse Ox O2 Delivery O2 Flow Rate FiO2 11/06/16 16:36 119 11/06/16 16:13 98.4 19 99/62 97 11/06/16 05:43 Room Air Intake and Output 11/05/16 11/05/16 11/06/16 15:00 23:00 07:00 Intake Total 1800 ml 1200 ml Output Total 1200 ml 200 ml Balance 600 ml 1000 ml Exam Constitutional: alert, oriented Psych: no complaints Head: atraumatic, normocephalic Eyes: nl conjunctiva ENMT: nl external ears & nose Neck: non-tender, supple Respiratory: clear to auscultation, normal air movement Cardiovascular: nl pulses, regular rate and rhythm Gastrointestinal: non-tender, other (Ileostomy), soft Musculoskeletal: nl extremities to inspection Extremities: normal pulses 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: 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 COORDINATOR II-XII intact Results Result Diagram: 11/04/16 0621 11/06/16 0630 Results 24 hrs Laboratory Tests Test 11/06/16 06:30 Sodium Level 139 Potassium Level 3.6 Chloride Level 100 Carbon Dioxide Level 27 Anion Gap 16 Blood Urea Nitrogen 31 H Creatinine 0.89 Glucose Level 102 Calcium Level 9.2 Medications Medications Current Medications Ondansetron HCl (Zofran Inj) 4 mg Q6H PRN IV NAUSEA AND/OR VOMITING; Start at 23:30 Morphine Sulfate (morphine) 4 mg Q6 PRN IV PAIN LEVEL 7-10; Start 10/26/16 at 23:45 IV Flush (NS 10 ml) 10 ml PRN PRN IV FLUSH LINE; Start 10/27/16 at 19:30 Mupirocin 1 applic 1 applic BID TOP Last administered on 11/06/16 09:03; Admin Dose 1 APPLIC; Start 10/28/16 at 21:00 Sodium Chloride (NS) 1,000 ml @ 100 mls/hr Q10H IV Last administered on 14:16; Admin Dose 100 MLS/HR; Start 11/04/16 at 11:00 ROMI ESPINO Nov 06, 2016 18:13
[2016-11-07] VITALS (11 sets, daily range): BP systolic 82–109; BP diastolic 46–62; PULSE 99–120; RESP 17–19
[2016-11-07 08:21] LABS: CALCIUM 8.6 mg/dl (8.4-10.2); CREATININE 0.79 mg/dl (0.44-1.00); POTASSIUM 3.7 mmol/L (3.5-5.1)
[2016-11-07] MEDS: MUPIROCIN 2% 22 GM OINT TOP SCH ×2 (08:33→20:26)
[2016-11-07] MEDS: SOD CHLORIDE 0.9% 1,000 ML IV SCH ×3 (08:34→20:26)
--- NOTE | 2016-11-07 12:29 | CONS ---
Date/Time of Note Date/Time of Note DATE: 11/07/16 TIME: 12:25 Assessment/Plan Assessment/Plan Additional Assessment/Plan 1. Severe hypokalemia with a potassium of 2.6. The patient's potassium has been fluctuating from hypokalemia to hyperkalemia depending on the potassium replacement. 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 Severe hyponatremia, sodium 116 on admission.-now improved 3. Acute kidney injury with a creatinine 2.5 on admission secondary to prerenal azotemia causing ischemic acute tubular necrosis.-now improved 4. History of colectomy with right-sided ileostomy. 5. History of Hirschsprung disease, status post multiple abdominal surgeries as per the patient. PLAN: electrolytes stable today continue Plain IV fluids - decrease rate to 70cc./hr good urine output will continue to follow up on patient Consultation Date/Type/Reason Admit Date/Time Oct 26, 2016 at 20:25 Initial Consult Date October Type of Consultation: NEPHROLOGY Referring Provider: CARLOS RODRIGUEZ MD 24 HR Interval Summary Free Text/Dictation no acute events, Electrolytes stable Exam/Review of Systems Vital Signs Vitals Vital Signs Date Time Temp Pulse Resp B/P Pulse Ox O2 Delivery O2 Flow Rate FiO2 11/07/16 12:22 99 11/07/16 11:52 98.7 19 98/50 95 11/06/16 05:43 Room Air Intake and Output 11/06/16 11/06/16 11/07/16 15:00 23:00 07:00 Intake Total 700 ml 1900 ml Output Total 500 ml 300 ml Balance 200 ml 1600 ml Exam GENERAL: Awake, alert. No distress. HEENT: Normal. Oropharynx clear. NECK: Supple. No JVD, no lymphadenopathy. LUNGS: Clear to auscultation. No crackles, no wheezes. HEART: S1, S2 with regular rhythm. No murmur. ABDOMEN: Soft, tender to palpation diffusely. No rebound, no guarding. Bowel sounds are present. EXTREMITIES: No clubbing, cyanosis, edema. NEUROLOGICAL: Nonfocal, intact. PSYCHIATRIC: Appropriate affect and mood. Results Result Diagram: 11/04/16 0621 11/07/16 0644 Results 24 hrs Laboratory Tests Test 11/07/16 06:44 Sodium Level 135 Potassium Level 3.7 Chloride Level 104 Carbon Dioxide Level 26 Anion Gap 9 # Blood Urea Nitrogen 27 H Creatinine 0.79 Glucose Level 80 Calcium Level 8.6 Medications Medications Current Medications Ondansetron HCl (Zofran Inj) 4 mg Q6H PRN IV NAUSEA AND/OR VOMITING; Start at 23:30 Morphine Sulfate (morphine) 4 mg Q6 PRN IV PAIN LEVEL 7-10; Start 10/26/16 at 23:45 IV Flush (NS 10 ml) 10 ml PRN PRN IV FLUSH LINE; Start 10/27/16 at 19:30 Mupirocin 1 applic 1 applic BID TOP Last administered on 11/07/16 08:33; Admin Dose 1 APPLIC; Start 10/28/16 at 21:00 Sodium Chloride (NS) 1,000 ml @ 100 mls/hr Q10H IV Last administered on 23:00; Admin Dose 100 MLS/HR; Start 11/04/16 at 11:00 ROHAN VELÁZQUEZ MD Nov 07, 2016 12:29
--- NOTE | 2016-11-07 16:36 | PN ---
Date/Time of Note Date/Time of Note DATE: 11/07/16 TIME: 16:35 Assessment/Plan VTE Prophylaxis VTE Prophylaxis Intervention: other Lines/Catheters [facility] Type ([facility] PICC Line Central line still needed: Yes Urinary Cath still in place: No Assessment/Plan Assessment/Plan - Possible small bowel obstruction, resolved. - Acute kidney injury, resolved - Severe hyperkalemia on admission, patient potassium has been fluctuating from hyperkalemia to hypokalemia. - Dr Spain is following pt in nephrology consultation. - Hyponatremia, continue IV fluids monitor electrolytes. 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 Patient is currently continued on IV fluids, anticipate discharged when electrolytes stable off IV fluids. Further recommendations based on clinical course. Plan of care discussed with Dr. Paez. Subjective 24 Hr Interval Summary Free Text/Dictation nad, lying in bed, seems comfortable, tolerating diet- dw staff Constitutional: improved Eyes: no complaints ENT: no complaints Respiratory: no complaints Cardiovascular: no complaints Gastrointestinal: no complaints Genitourinary: no complaints Musculoskeletal: no complaints Skin: no complaints, other (multiple healed abdominal surgical scars noted) Neurologic: no complaints Exam/Review of Systems Vital Signs Vitals Vital Signs Date Time Temp Pulse Resp B/P Pulse Ox O2 Delivery O2 Flow Rate FiO2 11/07/16 15:48 98.0 55 19 91/53 95 11/06/16 05:43 Room Air Intake and Output 11/06/16 11/06/16 11/07/16 15:00 23:00 07:00 Intake Total 700 ml 1900 ml Output Total 500 ml 300 ml Balance 200 ml 1600 ml Exam Constitutional: alert, oriented Psych: no complaints Head: normocephalic Eyes: nl sclera ENMT: nl external ears & nose Neck: non-tender Cardiovascular: nl pulses Gastrointestinal: non-tender, soft Musculoskeletal: muscle weakness Extremities: normal pulses 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: nl mental status, nl speech Skin: other Lymph: nontender Results Result Diagram: 11/04/16 0621 11/07/16 0644 Results 24 hrs Laboratory Tests Test 11/07/16 06:44 Sodium Level 135 Potassium Level 3.7 Chloride Level 104 Carbon Dioxide Level 26 Anion Gap 9 # Blood Urea Nitrogen 27 H Creatinine 0.79 Glucose Level 80 Calcium Level 8.6 Medications Medications Current Medications Ondansetron HCl (Zofran Inj) 4 mg Q6H PRN IV NAUSEA AND/OR VOMITING; Start at 23:30 Morphine Sulfate (morphine) 4 mg Q6 PRN IV PAIN LEVEL 7-10; Start 10/26/16 at 23:45 IV Flush (NS 10 ml) 10 ml PRN PRN IV FLUSH LINE; Start 10/27/16 at 19:30 Mupirocin 1 applic 1 applic BID TOP Last administered on 11/07/16 08:33; Admin Dose 1 APPLIC; Start 10/28/16 at 21:00 Sodium Chloride (NS) 1,000 ml @ 70 mls/hr [id number] IV Last administered on 11/07 14:16; Admin Dose 70 MLS/HR; Start 11/04/16 at 11:00 DEVENDRA GOMES Nov 07, 2016 16:36
[2016-11-08] VITALS (14 sets, daily range): BP systolic 86–104; BP diastolic 47–60; PULSE 95–151; RESP 17–20
[2016-11-08 07:37] LABS: CALCIUM 8.4 mg/dl (8.4-10.2); CREATININE 0.7 mg/dl (0.44-1.00); POTASSIUM 3.1 mmol/L (3.5-5.1)
[2016-11-08] MEDS: MUPIROCIN 2% 22 GM OINT TOP SCH ×2 (09:27→20:11)
--- NOTE | 2016-11-08 11:49 | CONS ---
Date/Time of Note Date/Time of Note DATE: 11/08/16 TIME: 11:47 Assessment/Plan Assessment/Plan Additional Assessment/Plan 1. Severe hypokalemia with a potassium of 2.6 on admission. The patient's potassium has been fluctuating from hypokalemia to hyperkalemia depending on the potassium replacement. 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 Severe hyponatremia, sodium 116 on admission.-now improved 3. Acute kidney injury with a creatinine 2.5 on admission secondary to prerenal azotemia causing ischemic acute tubular necrosis.-now improved 4. History of colectomy with right-sided ileostomy. 5. History of Hirschsprung disease, status post multiple abdominal surgeries as per the patient. PLAN: K low, Replaced by HR upto 140s, ECHO, cardiology consult ordered continue Plain IV fluids - decreased rate to 70cc./hr good urine output will continue to follow up on patient Consultation Date/Type/Reason Admit Date/Time Oct 26, 2016 at 20:25 Initial Consult Date October Type of Consultation: NEPHROLOGY Reason for Consultation Hypokalemia, Hypomagnesemia Referring Provider: CARLOS RODRIGUEZ MD 24 HR Interval Summary Free Text/Dictation HR upto 140s, BP stable, afebrile, No fever, no chills Exam/Review of Systems Vital Signs Vitals Vital Signs Date Time Temp Pulse Resp B/P Pulse Ox O2 Delivery O2 Flow Rate FiO2 11/08/16 11:34 100.9 151 17 104/58 100 11/06/16 05:43 Room Air Intake and Output 11/07/16 11/07/16 11/08/16 15:00 23:00 07:00 Intake Total 700 ml Balance 700 ml Exam GENERAL: Awake, alert. No distress. HEENT: Normal. Oropharynx clear. NECK: Supple. No JVD, no lymphadenopathy. LUNGS: Clear to auscultation. No crackles, no wheezes. HEART: S1, S2 with regular rhythm. No murmur. ABDOMEN: Soft, tender to palpation diffusely. No rebound, no guarding. Bowel sounds are present. EXTREMITIES: No clubbing, cyanosis, edema. NEUROLOGICAL: Nonfocal, intact. PSYCHIATRIC: Appropriate affect and mood. Results Result Diagram: 11/04/16 0621 11/08/16 0700 Results 24 hrs Laboratory Tests Test 11/08/16 07:00 Sodium Level 132 L Potassium Level 3.1 L Chloride Level 97 Carbon Dioxide Level 29 Anion Gap 9 Blood Urea Nitrogen 22 H Creatinine 0.70 Glucose Level 90 Calcium Level 8.4 Medications Medications Current Medications Ondansetron HCl (Zofran Inj) 4 mg Q6H PRN IV NAUSEA AND/OR VOMITING; Start at 23:30 Morphine Sulfate (morphine) 4 mg Q6 PRN IV PAIN LEVEL 7-10; Start 10/26/16 at 23:45 IV Flush (NS 10 ml) 10 ml PRN PRN IV FLUSH LINE; Start 10/27/16 at 19:30 Mupirocin 1 applic 1 applic BID TOP Last administered on 11/08/16 09:27; Admin Dose 1 APPLIC; Start 10/28/16 at 21:00 Sodium Chloride 1,000 ml @ 70 mls/hr [id number] IV Last administered on 20:26; Admin Dose 70 MLS/HR; Start 11/04/16 at 11:00 Potassium Chloride (KCl 40 MEQ/250 ML NS) 250 ml @ 62.5 mls/hr ONCE ONCE IVPB ; Start 11/08/16 at 12:00; Stop 11/08/16 at 15:59 Potassium Chloride (Klor-Con 20) 40 meq BID PO ; Start 11/08/16 at 11:30 ROHAN VELÁZQUEZ MD Nov 08, 2016 11:49
[2016-11-08] MEDS ORDERED: POTASSIUM CHLORIDE 250 ML IVPB ONE (12:00)
[2016-11-08] MEDS ORDERED: SOD CHLORIDE 0.9% 500 ML IV ONE ×2 (12:00→15:30)
[2016-11-08] MEDS: POTASSIUM CHLORIDE (SR) 20 MEQ TAB PO SCH ×2 (12:02→20:11)
--- NOTE | 2016-11-08 12:42 | RADRPT ---
Vent Rate: 156 bpm RR Interval: 0 msec NC Interval: 112 msec QRS Duration: 62 msec QT Interval: 294 msec QTC Interval: 473 msec P-R-T [place]: 68 - 120 - 81 degrees Sinus tachycardia Low voltage QRS RSR apos; orattern in V1 suggests right ventricular conduction delay Left posterior fascicular block Nonspecific T wave abnormality Abnormal ECG Electronically Signed By: Marcelino Waggoner [id number]
[2016-11-08] MEDS: SOD CHLORIDE 0.9% 1,000 ML IV SCH ×2 (12:56→21:07)
--- NOTE | 2016-11-08 14:10 | RADRPT ---
Echocardiogram Report Patient Name: JACKIE DAMIAN Gender: Female Date: 1975 Study Date: 08-Nov-2016 Opener Tender: 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 Location: [id number] Ref. Physician: CARLOS RODRIGUEZ Quality: Technically Difficult Study Procedures: Transthoracic echocardiogram with complete 2D, M-Mode, and doppler examination. Indications: Evaluate Left Ventricular function. 2D/M Mode Doppler Measurement Value Normal Ranges Measurement Value Normal Ranges LVIDd 2D 3.1 3.5 - 5.6 cm MARTY Vmax 1.5 cm2 LVIDs 2D 1.6 2.1 - 4.1 cm AV Peak Samuel 1.3 m/sec FS 2D 49.7 % AV Peak PG 7.0 mmHg LVPWd 2D 0.6 0.6 - 1.1 cm LVOT Peak Samuel 1.1 m/sec IVSd 2D 0.6 0.6 - 1.1 cm LVOT Peak PG 5.0 mmHg IVS/LVPW 2D 1.0 MV E Peak Samuel 1.1 m/sec AoR Diam 2D 2.0 2.0 - 3.7 cm MV A Peak Samuel 0.8 m/sec LA/Ao 2D 1 0 - 1 MV E/A 1.3 EDV 2D 31.0 cm3 MV Decel Time 144 msec ESV 2D 3.9 cm3 MV E/A 1.3 LA Dimen 2D 2.0 2.3 - 4.0 cm LVOT Diam 1.5 cm LVOT Area 1.8 cm2 Findings Left Ventricle: Normal left ventricular systolic function. Normal left ventricular cavity size. Normal left ventricular wall thickness. Ejection fraction is visually estimated at 65 %. Tissue Doppler/Mitral Doppler indices are within normal limits. Right Ventricle: Normal right ventricular size. Normal right ventricular systolic function. Left Atrium: The left atrium is normal in size. Right Atrium: The right atrium is normal in size. Mitral Valve: Normal appearance and function of the mitral valve with trace physiologic regurgitation. Aortic Valve: Normal appearance of the aortic valve. No significant aortic stenosis or insufficiency. Tricuspid Valve: Normal appearance and function of the tricuspid valve with trace physiologic regurgitation. Pulmonic Valve: Pulmonic valve not well visualized. Pericardium: Normal pericardium with no significant pericardial effusion. Aorta: Normal aortic root. IVC: Normal size and normal respiratory collapse consistent with normal right atrial pressure. Conclusions Normal left ventricular systolic function. Normal left ventricular cavity size. Normal left ventricular wall thickness. Ejection fraction is visually estimated at 65 %. Tissue Doppler/Mitral Doppler indices are within normal limits. Normal right ventricular size. Normal right ventricular systolic function. The left atrium is normal in size. The right atrium is normal in size. No significant valvular stenosis or regurgitation seen. Normal pericardium with no significant pericardial effusion. Electronically Signed By: Marcelino Waggoner 08-Nov-2016 14:10:13 -0700 Patient Name: JACKIE DAMIAN Study Date: 08-Nov-2016 [id number]
--- NOTE | 2016-11-08 14:26 | CONS ---
Date/Time of Note Date/Time of Note DATE: 11/08/16 TIME: 14:14 Assessment/Plan Assessment/Plan Additional Assessment/Plan Sinus tachycardia Possible ileus Hirschsprung disease Preserved ejection fraction Electrolyte abnormalities -Patient still with sinus tachycardia as high as the 160s. Patient with known history of sinus tachycardia. Currently denies any abdominal pain, BUN/ creatinine ratio appears appropriate, still with electrolyte abnormalities which are being adjusted by our nephrology colleagues. She likely has an element of inappropriate sinus tachycardia. She is very hesitant of taking any medications. I did discuss with the patient in detail regarding trying a low- dose of an AV deb blocking agent to see if it helps her with her heart rate. She is willing to try medication at the current time. Given her possible ileus , I will not use a calcium channel ang at the current time. I would start low-dose beta-ang. Ideally maintain potassium above 4.0 and magnesium above 2.0. Consultation Date/Type/Reason Admit Date/Time Oct 26, 2016 at 20:25 Type of Consultation: cv Reason for Consultation Tachycardia Hx of Present Illness This is a 41-year-old female with history of Hirschsprung's disease, multiple abdominal surgeries, who presents with abdominal pain, nausea and vomiting. Patient also with significant electrolyte abnormalities with hyper and hypokalemia, hyponatremia and acute kidney injury. Patient treated with improvement in abdominal discomfort and electrolytes. Patient found to be tachycardic with heart rates ranging from 110-160s. Patient denies any palpitations, shortness of breath, dizziness or lightheadedness. She does have a known history of tachycardia. She is very hesitant of starting any medications and she is concerned about side effects. She tells me she is very sensitive to medications. 12 point review of systems was performed with all pertinent positives and negatives mentioned above and all else is negative Constitutional: other (Generalized weakness) Eyes: no complaints ENT: no complaints Respiratory: no complaints Cardiovascular: no complaints Gastrointestinal: no complaints Genitourinary: no complaints Musculoskeletal: no complaints Skin: no complaints Neurologic: no complaints Endocrine: no complaints Psychological: no complaints Past Medical History Hirschsprung's disease Hyponatremia Electrolyte abnormalities Past Surgical History Abdominal surgery Past Surgical Hx: other Family History Significant Family History: no pertinent family hx Social History Alcohol Use: rarely Smoking Status: Never smoker Other Social History From facility Exam/Review of Systems Vital Signs Vitals Vital Signs Date Time Temp Pulse Resp B/P Pulse Ox O2 Delivery O2 Flow Rate FiO2 11/08/16 12:22 151 11/08/16 11:34 100.9 17 104/58 100 11/06/16 05:43 Room Air Intake and Output 11/07/16 11/07/16 11/08/16 15:00 23:00 07:00 Intake Total 700 ml Balance 700 ml Exam No apparent distress, eating lunch Constitutional: alert, frail, oriented Head: normocephalic Neck: supple Respiratory: clear to auscultation, normal air movement Cardiovascular: other (S1-S2 heard, no murmurs appreciated), regular rate and rhythm (Tachycardic) Gastrointestinal: bowel sounds, non-tender, other (No guarding), soft Extremities: other (No edema or cyanosis) Results Result Diagram: 11/04/16 0621 11/08/16 0700 Results 24 hrs Laboratory Tests Test 11/08/16 07:00 Sodium Level 132 L Potassium Level 3.1 L Chloride Level 97 Carbon Dioxide Level 29 Anion Gap 9 Blood Urea Nitrogen 22 H Creatinine 0.70 Glucose Level 90 Calcium Level 8.4 Thyroid Stimulating Hormone (TSH) 0.646 Medications Medications Current Medications Ondansetron HCl (Zofran Inj) 4 mg Q6H PRN IV NAUSEA AND/OR VOMITING; Start at 23:30 Morphine Sulfate (morphine) 4 mg Q6 PRN IV PAIN LEVEL 7-10; Start 10/26/16 at 23:45 IV Flush (NS 10 ml) 10 ml PRN PRN IV FLUSH LINE; Start 10/27/16 at 19:30 Mupirocin 1 applic 1 applic BID TOP Last administered on 11/08/16 09:27; Admin Dose 1 APPLIC; Start 10/28/16 at 21:00 Sodium Chloride 1,000 ml @ 70 mls/hr [id number] IV Last administered on 12:56; Admin Dose 70 MLS/HR; Start 11/04/16 at 11:00 Potassium Chloride (KCl 40 MEQ/250 ML NS) 250 ml @ 62.5 mls/hr ONCE ONCE IVPB Last administered on 11/08/16 12:55; Admin Dose 62.5 MLS/HR; Start 11/08/16 at 12:00; Stop 11/08/16 at 15:59 Potassium Chloride (Klor-Con 20) 40 meq BID PO Last administered on 11/08/16t 12:02; Admin Dose 40 MEQ; Start 11/08/16 at 11:30 Procedures Procedures ECG done today demonstrates sinus tachycardia in 156 bpm, normal QRS duration of 62 ms, no significant ischemic ST-T wave abnormalities Marcelino Waggoner DO Nov 08, 2016 14:26
[2016-11-08] MEDS: METOPROLOL 25 MG TAB PO SCH ×2 (14:30→21:07)
[2016-11-08] MEDS: ACETAMINOPHEN 325 MG TAB PO PRN (17:52)
[2016-11-08] MEDS ORDERED: VANCOMYCIN IV PER PHARMACY XX SCH (19:00)
--- NOTE | 2016-11-08 19:02 | PN ---
Date/Time of Note Date/Time of Note DATE: 11/08/16 TIME: 19:01 Assessment/Plan VTE Prophylaxis VTE Prophylaxis Intervention: SCD's Lines/Catheters IV C[facility]ter Type (from [facility]): Peripheral IV Urinary Cath still in place: No Assessment/Plan Chief Complaint/Hosp Course ASSESSMENT AND PLAN: - Fever, barker culture, cxr, start broad-spectrum antibiotics. Dr Bushra foster is asked to see patient in ID consultation. - Possible small bowel obstruction, resolved. - Acute kidney injury, resolved - Severe hyperkalemia on admission, patient potassium has been fluctuating from hyperkalemia to hypokalemia. Dr Spain is following pt in nephrology consultation. - Hyponatremia, continue IV fluids monitor electrolytes. 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 Further recommendations based on clinical course. Plan of care discussed with Dr. Paez. Problems: Subjective 24 Hr Interval Summary Free Text/Dictation Patient spiked fever, tachycardic. Exam/Review of Systems Vital Signs Vitals Vital Signs Date Time Temp Pulse Resp B/P Pulse Ox O2 Delivery O2 Flow Rate FiO2 11/08/16 17:51 103.0 145 86/47 11/08/16 15:46 18 98 11/06/16 05:43 Room Air Intake and Output 11/07/16 11/07/16 11/08/16 15:00 23:00 07:00 Intake Total 700 ml Balance 700 ml Exam Constitutional: alert, oriented Psych: no complaints Head: atraumatic, normocephalic Eyes: nl conjunctiva ENMT: nl external ears & nose Neck: non-tender, supple Respiratory: clear to auscultation, normal air movement Cardiovascular: nl pulses, regular rate and rhythm Gastrointestinal: non-tender, other (Ileostomy), soft Musculoskeletal: nl extremities to inspection Extremities: normal pulses 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: FIELD MACHINIST II-XII intact Results Result Diagram: 11/04/16 0621 11/08/16 0700 Results 24 hrs Laboratory Tests Test 11/08/16 07:00 11/08/16 13:50 Sodium Level 132 L Potassium Level 3.1 L Chloride Level 97 Carbon Dioxide Level 29 Anion Gap 9 Blood Urea Nitrogen 22 H Creatinine 0.70 Glucose Level 90 Calcium Level 8.4 Thyroid Stimulating Hormone (TSH) 0.646 Free Thyroxine 0.82 Medications Medications Current Medications Ondansetron HCl (Zofran Inj) 4 mg Q6H PRN IV NAUSEA AND/OR VOMITING; Start at 23:30 Morphine Sulfate (morphine) 4 mg Q6 PRN IV PAIN LEVEL 7-10; Start 10/26/16 at 23:45 IV Flush (NS 10 ml) 10 ml PRN PRN IV FLUSH LINE; Start 10/27/16 at 19:30 Mupirocin 1 applic 1 applic BID TOP Last administered on 11/08/16 09:27; Admin Dose 1 APPLIC; Start 10/28/16 at 21:00 Sodium Chloride (NS) 1,000 ml @ 125 mls/hr Q8H IV Last administered on 12:56; Admin Dose 70 MLS/HR; Start 11/04/16 at 11:00 Potassium Chloride (Klor-Con 20) 40 meq BID PO Last administered on 11/08/16 12:02; Admin Dose 40 MEQ; Start 11/08/16 at 11:30 Metoprolol Tartrate (Lopressor) 12.5 mg Q8 PO ; Start 11/08/16 at 14:30 Acetaminophen 650 mg 650 mg Q4H PRN PO PAIN AND OR ELEVATED TEMP Last administered on 11/08/16 17:52; Admin Dose 650 MG; Start 11/08/16 at 18:00 Imipenem/ Cilastatin Sodium 100 ml @ 100 mls/hr Q6 IVPB ; Start 11/08/16 at 19: 00 Vancomycin HCl (Vancocin) 100 ml @ 100 mls/hr Q12H IVPB ; Start 11/08/16 at 20: 00 ROMI ESPINO Nov 08, 2016 19:02
[2016-11-08] MEDS: IMIPENEM-CILAST 500MG IV (PMX) 100 ML IVPB SCH ×2 (19:42→23:59)
[2016-11-08 20:18] LABS: ADD SCAN DIFF NO
[2016-11-08 20:21] LABS: ABNORMAL IP MESSAGE 1; HEMATOCRIT 29.7 % (37.0-47.0); HEMOGLOBIN 10.3 g/dl (12.0-16.0); MEAN CORPUSCULAR HGB CONC 34.7 g/dl (32.0-37.0); MEAN CORPUSCULAR VOLUME 92.2 fl (82.0-101.0); MEAN PLATELET VOLUME 9.2 fl (7.4-10.4); PLATELET COUNT 325 10^3/UL (140-415); RED BLOOD COUNT 3.22 10^6/ul (4.20-5.40); WHITE BLOOD COUNT 19.6 10^3/ul (4.8-10.8)
[2016-11-08 20:26] LABS: URINE BILIRUBIN (Dip) NEGATIVE (NEGATIVE); URINE BLOOD (Dip) NEGATIVE (NEGATIVE); URINE COLOR LT. YELLOW (YELLOW); URINE GLUCOSE (Dip) NEGATIVE (NEGATIVE); URINE KETONES (Dip) NEGATIVE (NEGATIVE); URINE LEUKOCYTE ESTERASE (Dip) NEGATIVE (NEGATIVE); URINE NITRITE (Dip) NEGATIVE (NEGATIVE); URINE UROBILINOGEN (Dip) 0.2 E.U./dL (0.1-1.0)
[2016-11-08 20:31] LABS: ADD UMIC NO; URINE TOTAL PROTEIN (Dip) NEGATIVE (NEGATIVE)
[2016-11-08] MEDS: VANCOMYCIN 500MG/NS (PMX) 100 ML IVPB SCH (21:07)
[2016-11-08 21:37] LABS: LYMPHOCYTES # 0.6 10^3/ul (0.8-2.9); MONOCYTE # 0.4 10^3/ul (0.3-0.9); NEUTROPHIL # 17.1 10^3/ul (1.6-7.5); PLATELET ESTIMATE PLT APPEAR ADEQUATE
[2016-11-09] VITALS (13 sets, daily range): BP systolic 72–110; BP diastolic 41–52; PULSE 109–144; RESP 18–20
[2016-11-09] MEDS: ACETAMINOPHEN 325 MG TAB PO PRN ×3 (03:21→15:53)
[2016-11-09] MEDS: IMIPENEM-CILAST 500MG IV (PMX) 100 ML IVPB SCH ×3 (05:00→18:21)
[2016-11-09] MEDS: METOPROLOL 25 MG TAB PO SCH ×3 (05:00→21:45)
[2016-11-09] MEDS: SOD CHLORIDE 0.9% 1,000 ML IV SCH ×2 (05:00→14:59)
[2016-11-09 07:23] LABS: ADD SCAN DIFF NO
[2016-11-09 07:31] LABS: ABNORMAL IP MESSAGE 1; BASOPHILS % 0.2 % (0.0-2.0); EOSINOPHILS % 0.1 % (0.0-7.0); HEMATOCRIT 30.1 % (37.0-47.0); HEMOGLOBIN 10.3 g/dl (12.0-16.0); LYMPHOCYTES # 0.4 10^3/ul (0.8-2.9); LYMPHOCYTES % 2.8 % (15.0-51.0); MEAN CORPUSCULAR HEMOGLOBIN 31.4 pg (29.0-33.0); MEAN CORPUSCULAR HGB CONC 34.2 g/dl (32.0-37.0); MEAN CORPUSCULAR VOLUME 91.8 fl (82.0-101.0); MEAN PLATELET VOLUME 9.5 fl (7.4-10.4); MONOCYTE # 0.3 10^3/ul (0.3-0.9); MONOCYTES % 2.7 % (0.0-11.0); NEUTROPHIL # 11.6 10^3/ul (1.6-7.5); NEUTROPHILS % 93.2 % (39.0-77.0); PLATELET COUNT 283 10^3/UL (140-415); RED BLOOD COUNT 3.28 10^6/ul (4.20-5.40); WHITE BLOOD COUNT 12.4 10^3/ul (4.8-10.8)
[2016-11-09 07:40] LABS: INR 1.02; PROTIME 13.4 Sec (12.2-14.2)
[2016-11-09 07:41] LABS: PARTIAL THROMBOPLASTIN TIME 29.8 Sec (25.0-35.0)
[2016-11-09 07:44] LABS: POTASSIUM 3.2 mmol/L (3.5-5.1)
[2016-11-09 07:47] LABS: CREATININE 0.71 mg/dl (0.44-1.00)
[2016-11-09 07:48] LABS: CALCIUM 7.6 mg/dl (8.4-10.2)
[2016-11-09] MEDS ORDERED: MAGNESIUM SULFATE 2 GM/50 ML 50 ML IVPB ONE (08:00)
[2016-11-09] MEDS: POTASSIUM CHLORIDE (SR) 20 MEQ TAB PO SCH ×2 (08:13→21:44)
[2016-11-09] MEDS: MUPIROCIN 2% 22 GM OINT TOP SCH ×2 (08:14→21:43)
[2016-11-09] MEDS: VANCOMYCIN 500MG/NS (PMX) 100 ML IVPB SCH ×2 (08:51→21:44)
[2016-11-09] MEDS ORDERED: ALBUMIN HUMAN 25% 100 ML IV STA (11:39)
--- NOTE | 2016-11-09 11:47 | CONS ---
Date/Time of Note Date/Time of Note DATE: 11/09/16 TIME: 11:44 Assessment/Plan Assessment/Plan Additional Assessment/Plan 1. Severe hypokalemia with a potassium of 2.6 on admission. The patient's potassium has been fluctuating from hypokalemia to hyperkalemia depending on the potassium replacement. 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 Severe hyponatremia, sodium 116 on admission.-now improved 3. Acute kidney injury with a creatinine 2.5 on admission secondary to prerenal azotemia causing ischemic acute tubular necrosis.-now improved 4. History of colectomy with right-sided ileostomy. 5. History of Hirschsprung disease, status post multiple abdominal surgeries as per the patient. PLAN: K low, on PO daily replacement, will give additional replacement Magensium sulfate replacement total 4 gram IV x 1 BMP at 5 pm albumin one dose followed up by NS 1 liter bolus if still low add midodrine good urine output will continue to follow up on patient Consultation Date/Type/Reason Admit Date/Time Oct 26, 2016 at 20:25 Initial Consult Date October Type of Consultation: NEPHROLOGY Reason for Consultation severe hypokalemia, Severe Hypomagnesemia Referring Provider: CARLOS RODRIGUEZ MD 24 HR Interval Summary Free Text/Dictation k 3.2, Mag Low, Bp dropped to systolic 70s, pt asymptomatic Exam/Review of Systems Vital Signs Vitals Vital Signs Date Time Temp Pulse Resp B/P Pulse Ox O2 Delivery O2 Flow Rate FiO2 11/09/16 11:36 72/41 11/09/16 08:09 111 11/09/16 07:54 98.4 20 100 11/06/16 05:43 Room Air Intake and Output 11/08/16 11/08/16 11/09/16 15:00 23:00 07:00 Intake Total 500 ml 2180 ml Output Total 1600 ml Balance 500 ml 580 ml Exam GENERAL: Awake, alert. No distress. HEENT: Normal. Oropharynx clear. NECK: Supple. No JVD, no lymphadenopathy. LUNGS: Clear to auscultation. No crackles, no wheezes. HEART: S1, S2 with regular rhythm. No murmur. ABDOMEN: Soft, tender to palpation diffusely. No rebound, no guarding. Bowel sounds are present. EXTREMITIES: No clubbing, cyanosis, edema. NEUROLOGICAL: Nonfocal, intact. PSYCHIATRIC: Appropriate affect and mood. Results Result Diagram: 11/09/1662611/09/16 06 Results 24 hrs Laboratory Tests Test 11/08/16 13:50 11/08/16 20:00 11/09/16 06:27 Free Thyroxine 0.82 White Blood Count 19.6 #H 12.4 #H Red Blood Count 3.22 #L 3.28 L Hemoglobin 10.3 #L 10.3 L Hematocrit 29.7 #L 30.1 L Mean Corpuscular Volume 92.2 91.8 Mean Corpuscular Hemoglobin 32.0 31.4 Mean Corpuscular Hemoglobin Concent 34.7 34.2 Red Cell Distribution Width 13.0 13.0 Platelet Count 325 # 283 Mean Platelet Volume 9.2 9.5 Neutrophils % 87.0 H 93.2 H Band Neutrophils % 8.0 H Lymphocytes % 3.0 L 2.8 L Monocytes % 2.0 2.7 Neutrophils # 17.1 H 11.6 H Lymphocytes # 0.6 L 0.4 L Monocytes # 0.4 0.3 Platelet Estimate PLT APPEAR ADEQUATE Lactic Acid Level 5.4 *H Eosinophils % 0.1 Basophils % 0.2 Nucleated Red Blood Cells % 0.0 Eosinophils # 0.0 Basophils # 0.0 Nucleated Red Blood Cells # 0.0 Prothrombin Time 13.4 Prothrombin Time Ratio 1.0 INR International Normalized Ratio 1.02 Activated Partial Thromboplast Time 29.8 Sodium Level 131 L Potassium Level 3.2 L Chloride Level 99 Carbon Dioxide Level 25 Anion Gap 10 Blood Urea Nitrogen 13 # Creatinine 0.71 Glucose Level 95 Calcium Level 7.6 L Magnesium Level 0.7 *L Medications Medications Current Medications Ondansetron HCl (Zofran Inj) 4 mg Q6H PRN IV NAUSEA AND/OR VOMITING; Start at 23:30 Morphine Sulfate (morphine) 4 mg Q6 PRN IV PAIN LEVEL 7-10; Start 10/26/16 at 23:45 IV Flush (NS 10 ml) 10 ml PRN PRN IV FLUSH LINE; Start 10/27/16 at 19:30 Mupirocin 1 applic 1 applic BID TOP Last administered on 11/09/16t 08:14; Admin Dose 1 APPLIC; Start 10/28/16 at 21:00 Sodium Chloride (NS) 1,000 ml @ 125 mls/hr Q8H IV Last administered on 05:00; Admin Dose 125 MLS/HR; Start 11/04/16 at 11:00 Potassium Chloride (Klor-Con 20) 40 meq BID PO Last administered on 11/09/16 08:13; Admin Dose 40 MEQ; Start 11/08/16 at 11:30 Metoprolol Tartrate (Lopressor) 12.5 mg Q8 PO ; Start 11/08/16 at 14:30 Acetaminophen 650 mg 650 mg Q4H PRN PO PAIN AND OR ELEVATED TEMP Last administered on 11/09/16 08:19; Admin Dose 650 MG; Start 11/08/16 at 18:00 Imipenem/ Cilastatin Sodium 100 ml @ 100 mls/hr Q6 IVPB Last administered on 11:14; Admin Dose 100 MLS/HR; Start 11/08/16 at 19:00 Vancomycin HCl (Vancocin) 100 ml @ 100 mls/hr Q12H IVPB Last administered on 08:51; Admin Dose 100 MLS/HR; Start 11/08/16 at 20:00 Miscellaneous Information (*Rx Drug Level Order Reminder*) VANCOMYCIN TROUGH AT 0700 ONCE ONCE XX ; Start 11/10/16 at 07:00; Stop 11/10/16 at 07:01 ROHAN VELÁZQUEZ MD Nov 09, 2016 11:47
--- NOTE | 2016-11-09 11:54 | PN ---
Date/Time of Note Date/Time of Note DATE: 11/09/16 TIME: 11:53 Assessment/Plan VTE Prophylaxis VTE Prophylaxis Intervention: other Lines/Catheters [facility] PICC Line Central line still needed: Yes Urinary Cath still in place: No Assessment/Plan Chief Complaint/Hosp Course - Fever, barker culture, cxr, start broad-spectrum antibiotics. Dr Bushra foster is asked to see patient in ID consultation. - Possible small bowel obstruction, resolved. - Acute kidney injury, resolved - Severe hyperkalemia on admission, patient potassium has been fluctuating from hyperkalemia to hypokalemia. Dr Spain is following pt in nephrology consultation. - Hyponatremia, continue IV fluids monitor electrolytes. 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 Problems: Subjective 24 Hr Interval Summary Free Text/Dictation Patient complain of pain Exam/Review of Systems Vital Signs Vitals Vital Signs Date Time Temp Pulse Resp B/P Pulse Ox O2 Delivery O2 Flow Rate FiO2 11/09/16 11:36 72/41 11/09/16 08:09 111 11/09/16 07:54 98.4 20 100 11/06/16 05:43 Room Air Intake and Output 11/08/16 11/08/16 11/09/16 15:00 23:00 07:00 Intake Total 500 ml 2180 ml Output Total 1600 ml Balance 500 ml 580 ml Exam Constitutional: well developed Head: atraumatic, normocephalic Neck: supple Respiratory: diminished breath sounds Cardiovascular: regular rate and rhythm Gastrointestinal: non-tender, soft Extremities: normal pulses Results Result Diagram: 11/09/16 0627 11/09/16 0627 Results 24 hrs Laboratory Tests Test 11/08/16 13:50 11/08/16 20:00 11/09/16 06:27 Free Thyroxine 0.82 White Blood Count 19.6 #H 12.4 #H Red Blood Count 3.22 #L 3.28 L Hemoglobin 10.3 #L 10.3 L Hematocrit 29.7 #L 30.1 L Mean Corpuscular Volume 92.2 91.8 Mean Corpuscular Hemoglobin 32.0 31.4 Mean Corpuscular Hemoglobin Concent 34.7 34.2 Red Cell Distribution Width 13.0 13.0 Platelet Count 325 # 283 Mean Platelet Volume 9.2 9.5 Neutrophils % 87.0 H 93.2 H Band Neutrophils % 8.0 H Lymphocytes % 3.0 L 2.8 L Monocytes % 2.0 2.7 Neutrophils # 17.1 H 11.6 H Lymphocytes # 0.6 L 0.4 L Monocytes # 0.4 0.3 Platelet Estimate PLT APPEAR ADEQUATE Lactic Acid Level 5.4 *H Eosinophils % 0.1 Basophils % 0.2 Nucleated Red Blood Cells % 0.0 Eosinophils # 0.0 Basophils # 0.0 Nucleated Red Blood Cells # 0.0 Prothrombin Time 13.4 Prothrombin Time Ratio 1.0 INR International Normalized Ratio 1.02 Activated Partial Thromboplast Time 29.8 Sodium Level 131 L Potassium Level 3.2 L Chloride Level 99 Carbon Dioxide Level 25 Anion Gap 10 Blood Urea Nitrogen 13 # Creatinine 0.71 Glucose Level 95 Calcium Level 7.6 L Magnesium Level 0.7 *L Medications Medications Current Medications Ondansetron HCl (Zofran Inj) 4 mg Q6H PRN IV NAUSEA AND/OR VOMITING; Start at 23:30 Morphine Sulfate (morphine) 4 mg Q6 PRN IV PAIN LEVEL 7-10; Start 10/26/16 at 23:45 IV Flush (NS 10 ml) 10 ml PRN PRN IV FLUSH LINE; Start 10/27/16 at 19:30 Mupirocin 1 applic 1 applic BID TOP Last administered on 11/09/16 08:14; Admin Dose 1 APPLIC; Start 10/28/16 at 21:00 Sodium Chloride (NS) 1,000 ml @ 125 mls/hr Q8H IV Last administered on 05:00; Admin Dose 125 MLS/HR; Start 11/04/16 at 11:00 Potassium Chloride (Klor-Con 20) 40 meq BID PO Last administered on 11/09/16 08:13; Admin Dose 40 MEQ; Start 11/08/16 at 11:30 Metoprolol Tartrate (Lopressor) 12.5 mg Q8 PO ; Start 11/08/16 at 14:30 Acetaminophen 650 mg 650 mg Q4H PRN PO PAIN AND OR ELEVATED TEMP Last administered on 11/09/16 08:19; Admin Dose 650 MG; Start 11/08/16 at 18:00 Imipenem/ Cilastatin Sodium 100 ml @ 100 mls/hr Q6 IVPB Last administered on 11:14; Admin Dose 100 MLS/HR; Start 11/08/16 at 19:00 Vancomycin HCl (Vancocin) 100 ml @ 100 mls/hr Q12H IVPB Last administered on 08:51; Admin Dose 100 MLS/HR; Start 11/08/16 at 20:00 Miscellaneous Information VANCOMYCIN TROUGH AT 0700 ONCE ONCE XX ; Start 11/10/16 at 07:00; Stop 11/10/16 at 07:01 Magnesium Sulfate 50 ml @ 25 mls/hr ONCE ONCE IVPB ; Start 11/09/16 at 12:00; Stop 11/09/16 at 13:59 Sodium Chloride (NS) 1,000 ml @ 1,000 mls/hr Q1H ONCE IV Last administered on 11/09/16 11:52; Admin Dose 1,000 MLS/HR; Start 11/09/16 at 12:00; Stop at 12:59 Midodrine (Proamatine) 2.5 mg BID@,17 PRN PO SBP <90; Start 11/09/16 at 12:00 GINGER MOSES Nov 09, 2016 11:54
[2016-11-09] MEDS ORDERED: SOD CHLORIDE 0.9% 1,000 ML IV ONE (12:00)
[2016-11-09] MEDS ORDERED: MIDODRINE 2.5 MG TAB PO PRN (12:00)
[2016-11-09] MEDS: MAGNESIUM SULFATE 2 GM/50 ML 50 ML IVPB ONE ×2 (12:00→19:36)
--- NOTE | 2016-11-09 13:29 | CONS ---
JONNIE MAURO 11/09/16 1329: Date/Time of Note Date/Time of Note DATE: 11/09/16 TIME: 13:26 Assessment/Plan Assessment/Plan Additional Assessment/Plan - Fever, barker culture resulted in 2/2 GPC Clusters. Continue Vanco and Imipenenm while awaiting further speciation. - repeat BCx X2 - f/u other cultures - Possible small bowel obstruction, resolved. - Acute kidney injury, resolved - Severe hyperkalemia on admission, patient potassium has been fluctuating from hyperkalemia to hypokalemia. Dr Spain is following pt in nephrology consultation. - Hyponatremia, continue IV fluids monitor electrolytes. - Hirschsprung's disease, status post colectomy/ileostomy. 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 d/w Dr Mcelroy Consultation Date/Type/Reason Admit Date/Time Oct 26, 2016 at 20:25 Date of Consultation: Nov 09, 2016 Type of Consultation: ID Reason for Consultation Fever Referring Provider: CARLOS RODRIGUEZ MD Hx of Present Illness 41 yo female w/ hx Hirschprung dz s/p colectomy and ileostomy, Fe def anemia known to us from a previous adm. Presented to ER in mid October w/ c/o n/v and abd pain. She was admitted and Tx'd for SBO and electrolyte imbalance. She had been improving until yesterday afternoon when she developed fever to 103 and chills and sweats. She was started on IV Vanco and Imipenem. Initial BCx has been pos for GPC in clusters(2/2). MRSA Screen +, on bactroban. UA WNL. Currently, she is comfortable, NAD, denies any further chills or sweats. No n/v/ d, cough, SOB, supra pubic or abd pain. pertinent positives as above Constitutional: improved Eyes: no complaints ENT: no complaints Respiratory: no complaints Cardiovascular: no complaints Gastrointestinal: no complaints Genitourinary: no complaints Musculoskeletal: no complaints Skin: no complaints, other (multiple healed abdominal surgical scars noted) Neurologic: no complaints Endocrine: no complaints Psychological: no complaints Past Medical History Medical History: other (Hirschprung dz) Past Surgical History Past Surgical Hx: bowel resection, other (Colectomy, Ileostomy 2015) Family History Significant Family History: no pertinent family hx Social History Alcohol Use: rarely Smoking Status: Never smoker Exam/Review of Systems Vital Signs Vitals Vital Signs Date Time Temp Pulse Resp B/P Pulse Ox O2 Delivery O2 Flow Rate FiO2 11/09/16 12:25 83/49 11/09/16 12:10 109 11/09/16 07:54 98.4 20 100 11/06/16 05:43 Room Air Intake and Output 11/08/16 11/08/16 11/09/16 15:00 23:00 07:00 Intake Total 500 ml 2180 ml Output Total 1600 ml Balance 500 ml 580 ml Exam Constitutional: alert, frail, oriented Psych: nl mood/affect, no complaints Head: atraumatic, normocephalic Eyes: EOMI, nl conjunctiva ENMT: nl external ears & nose Neck: non-tender, supple Respiratory: clear to auscultation, normal air movement Cardiovascular: regular rate and rhythm Gastrointestinal: bowel sounds, non-tender, other (ileostomy present), soft 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: nl mental status Results Result Diagram: 11/09/1627 11/09/16 0627 Results 24 hrs Laboratory Tests Test 11/08/16 13:50 11/08/16 20:00 11/09/16 06:27 Free Thyroxine 0.82 White Blood Count 19.6 #H 12.4 #H Red Blood Count 3.22 #L 3.28 L Hemoglobin 10.3 #L 10.3 L Hematocrit 29.7 #L 30.1 L Mean Corpuscular Volume 92.2 91.8 Mean Corpuscular Hemoglobin 32.0 31.4 Mean Corpuscular Hemoglobin Concent 34.7 34.2 Red Cell Distribution Width 13.0 13.0 Platelet Count 325 # 283 Mean Platelet Volume 9.2 9.5 Neutrophils % 87.0 H 93.2 H Band Neutrophils % 8.0 H Lymphocytes % 3.0 L 2.8 L Monocytes % 2.0 2.7 Neutrophils # 17.1 H 11.6 H Lymphocytes # 0.6 L 0.4 L Monocytes # 0.4 0.3 Platelet Estimate PLT APPEAR ADEQUATE Lactic Acid Level 5.4 *H Eosinophils % 0.1 Basophils % 0.2 Nucleated Red Blood Cells % 0.0 Eosinophils # 0.0 Basophils # 0.0 Nucleated Red Blood Cells # 0.0 Prothrombin Time 13.4 Prothrombin Time Ratio 1.0 INR International Normalized Ratio 1.02 Activated Partial Thromboplast Time 29.8 Sodium Level 131 L Potassium Level 3.2 L Chloride Level 99 Carbon Dioxide Level 25 Anion Gap 10 Blood Urea Nitrogen 13 # Creatinine 0.71 Glucose Level 95 Calcium Level 7.6 L Magnesium Level 0.7 *L Medications Medications Current Medications Ondansetron HCl (Zofran Inj) 4 mg Q6H PRN IV NAUSEA AND/OR VOMITING; Start at 23:30 Morphine Sulfate (morphine) 4 mg Q6 PRN IV PAIN LEVEL 7-10; Start 10/26/16 at 23:45 IV Flush (NS 10 ml) 10 ml PRN PRN IV FLUSH LINE; Start 10/27/16 at 19:30 Mupirocin 1 applic 1 applic BID TOP Last administered on 11/09/16 08:14; Admin Dose 1 APPLIC; Start 10/28/16 at 21:00 Sodium Chloride (NS) 1,000 ml @ 125 mls/hr Q8H IV Last administered on 05:00; Admin Dose 125 MLS/HR; Start 11/04/16 at 11:00 Potassium Chloride (Klor-Con 20) 40 meq BID PO Last administered on 11/09/16 08:13; Admin Dose 40 MEQ; Start 11/08/16 at 11:30 Metoprolol Tartrate (Lopressor) 12.5 mg Q8 PO ; Start 11/08/16 at 14:30 Acetaminophen 650 mg 650 mg Q4H PRN PO PAIN AND OR ELEVATED TEMP Last administered on 11/09/16 08:19; Admin Dose 650 MG; Start 11/08/16 at 18:00 Imipenem/ Cilastatin Sodium 100 ml @ 100 mls/hr Q6 IVPB Last administered on 11:14; Admin Dose 100 MLS/HR; Start 11/08/16 at 19:00 Vancomycin HCl (Vancocin) 100 ml @ 100 mls/hr Q12H IVPB Last administered on 08:51; Admin Dose 100 MLS/HR; Start 11/08/16 at 20:00 Miscellaneous Information VANCOMYCIN TROUGH AT 0700 ONCE ONCE XX ; Start 11/10/16 at 07:00; Stop 11/10/16 at 07:01 Magnesium Sulfate (Magnesium Sulfate 2 Gm/50 ml) 50 ml @ 25 mls/hr ONCE ONCE IVPB ; Start 11/09/16 at 12:00; Stop 11/09/16 at 13:59 Midodrine (Proamatine) 2.5 mg BID@,17 PRN PO SBP <90; Start 11/09/16 at 12:00 TAWANDA MCELROY M.D. 11/11/16 1107: Assessment/Plan Assessment/Plan Chief Complaint/Hosp Course Navi attestation: I discussed the management with SHARRI Mauro and agree with above. Problems: Exam/Review of Systems Results Result Diagram: 11/09/16 0627 11/09/16 0627 JONNIE MAURO Nov 09, 2016 13:29 TAWANDA MCELROY M.D. November 11, 2016 11:07
--- NOTE | 2016-11-09 13:47 | RADRPT ---
PROCEDURE: XR 1 view Chest. CLINICAL INDICATION: Pneumonia. TECHNIQUE: Portable Single frontal view of the chest was obtained. COMPARISON: October 27, 2016. FINDINGS: The right PICC line appears to have been pulled back with tip at the right apex likely in the distal subclavian vein. Previously this was in the cavoatrial junction. The heart is normal in size. There is no focal consolidation. There is no pleural effusion. No pneumothorax is identified. The osseous structures are intact. IMPRESSION: The right PICC line has been pulled back with tip likely within the distal subclavian vein. Reposit ioning is recommended. Otherwise no significant change. No evidence for acute cardiopulmonary disease. Further findings as detailed above. These findings were discussed with nurse Trisha Royal at 01:44 p.m. on November 09, 2016. RPTAT: PP .Sathya Ross MD, Date Time Electronically viewed and signed by .Sathya Ross MD, on 11/09/2016 13:47 .F/
--- NOTE | 2016-11-09 15:32 | PN ---
DATE: 11/09/2016 CARDIOLOGY FOLLOWUP SUBJECTIVE: Discussed with the staff. Discussed with the patient's mother. The patient became hyp otensive today. She complains of chills, being cold. No chest pain or pressure. No palpitations. MEDICATIONS: Reviewed. PHYSICAL EXAMINATION: VITAL SIGNS: Temperature 98.4, heart rate of 109, blood pressure of 83/49, respiratory rate of 20. HEENT: Normocephalic, atraumatic. Thin female. Pupils are equal. CARDIOVASCULAR: Tachycardic. PULMONARY: With no wheezes. GASTROINTESTINAL: Status post colostomy. EXTREMITIES: No significant edema. NEUROLOGIC: Awake, responds appropriately. PSYCHIATRIC: Appears to be calm. LABORATORY DATA: WBC of 12.4, hemoglobin 10.3, platelets of 283. Sodium 131, potassium 3.2, BUN of 13, creatinine 0.71, glucose of 95. Magnesium is 0.7. Chest x-ray shows no evidence of acute cardiopulmonary disease. ASSESSMENT AND PLAN: 1. Tachycardia, sinus. 2. Possible sepsis. 3. Possible ileus. 4. History of Hirschsprung disease. 5. Electrolyte abnormalities with hypokalemia and hypomagnesemia. RECOMMENDATIONS: IV fluid was given. Electrolytes are being replaced by nephrology team. Antibiot ic as per internal medicine. Dictated By: SAUNDRA KING MD AV/CRISTINA Conf#: [id number] DID#: [id number] CC: GINGER MOSES MD;*EndCC*
--- NOTE | 2016-11-09 18:20 | RADRPT ---
AMENDMENT: 11/14/2016 11:54:00 AM Rudy Zeng Md In retrospect, the right arm PICC line tip is in the descending thoracic aorta. PROCEDURE: XR Chest. CLINICAL INDICATION: Check PICC line position. TECHNIQUE: Single frontal view. COMPARISON: 11/08/2016. FINDINGS: There is a right arm PICC line with the tip possibly in the lower superior vena cava. However, this is uncertain due to the stent on the left side of midline. The lungs are clear. The heart size is normal. There is no pleural effusion. There is no pneumothorax. IMPRESSION: 1. The right arm PICC line tip position is uncertain. An RPO view will be obtained. 2. Otherwise normal chest radiograph. RPTAT: QQ .Rudy Zeng MD, MD Date Time Electronically viewed and signed by .Rudy Zeng MD, MD on 11/14/2016 11:54 .R/
[2016-11-09] MEDS: morphine 4 MG/ML VIAL IV PRN (18:21)
--- NOTE | 2016-11-09 18:21 | RADRPT ---
AMENDMENT: 11/14/2016 11:54:57 AM Rudy Zeng Md In retrospect, the right arm PICC line tip is in the descending thoracic aorta. PROCEDURE: XR Chest. CLINICAL INDICATION: Check PICC line position. TECHNIQUE: Single right posterior oblique view. COMPARISON: 11/09/2016. 1737 hours. FINDINGS: There is a right arm PICC line with the tip in the lower superior vena cava. The lungs are clear. The heart size is normal. There is no pleural effusion. There is no pneumothorax. IMPRESSION: 1. Satisfactory position of left arm PICC line. 2. Otherwise normal chest radiograph. RPTAT: QQ .Rudy Zeng MD, MD Date Time Electronically viewed and signed by .Rudy Zeng MD, on 11/14/2016 11:55 .R/
[2016-11-09 19:09] LABS: CALCIUM 7.7 mg/dl (8.4-10.2); CREATININE 0.61 mg/dl (0.44-1.00); POTASSIUM 3.2 mmol/L (3.5-5.1)
[2016-11-09] MEDS ORDERED: LIDOCAINE 1% (MPF) 5 ML VIAL SC ONE (19:30)
[2016-11-10] VITALS (10 sets, daily range): BP systolic 83–88; BP diastolic 47–54; PULSE 101–122; RESP 16–20
[2016-11-10] MEDS: IMIPENEM-CILAST 500MG IV (PMX) 100 ML IVPB SCH ×5 (00:31→23:25)
[2016-11-10] MEDS: SOD CHLORIDE 0.9% 1,000 ML IV SCH ×4 (03:55→17:24)
[2016-11-10] MEDS: ACETAMINOPHEN 325 MG TAB PO PRN ×2 (05:35→22:10)
[2016-11-10] MEDS: METOPROLOL 25 MG TAB PO SCH (05:38)
[2016-11-10] MEDS: POTASSIUM CHLORIDE (SR) 20 MEQ TAB PO SCH ×2 (08:18→20:41)
[2016-11-10] MEDS: VANCOMYCIN 500MG/NS (PMX) 100 ML IVPB SCH ×3 (08:18→23:29)
[2016-11-10] MEDS: MUPIROCIN 2% 22 GM OINT TOP SCH (08:19)
[2016-11-10] MEDS ORDERED: MAGNESIUM SULFATE 3 GM in SOD CHLORIDE 0.9% 100 ML IVPB ONE (10:30)
--- NOTE | 2016-11-10 10:49 | PN ---
DATE: 11/10/2016 CARDIOLOGY FOLLOWUP SUBJECTIVE: I discussed with the staff. Rhythm strip was reviewed. The patient remains in sinus r hythm, sinus tachycardia. No chest pain or pressure, no palpitation, no shortness of breath or blee ding. Blood pressure has been on the low side, but the patient does not complain of any syncope, pr esyncope, or symptoms. MEDICATIONS: Reviewed. OBJECTIVE: VITAL SIGNS: Temperature 99.1, heart rate of 111, blood pressure 186/49, respiration 19, saturating 98%. HEENT: Normocephalic, atraumatic. Pupils are equal. CARDIOVASCULAR: Tachycardic. PULMONARY: With no wheezes. GASTROINTESTINAL: Soft, status post surgery. EXTREMITIES: No significant lower extremity edema. NEUROLOGIC: Awake, responds appropriately. PSYCHIATRIC: Appears to be calm. LABORATORY: Sodium 132, potassium 3.2, BUN of 10, creatinine 0.61, glucose of 100 as of last night. Magnesium was 0.7. Chest x-ray last night shows PICC line in good position. Tip is uncertain. ASSESSMENT AND PLAN: 1. Sinus tachycardia. 2. Possible sepsis. 3. Questionable ileus. 4. History of Hirschsprung disease. 5. History of gastrointestinal surgery. 6. Electrolyte abnormality. 7. Hypokalemia. 8. Hypomagnesemia. RECOMMENDATIONS: Electrolytes including potassium and magnesium to be replaced. The patient is too hypotensive to tolerate a beta ang. I will discontinue the metoprolol. Electrolytes need to b e replaced including magnesium. Dictated By: SAUNDRA KING MD AV/CRISTINA Conf#: [id number] DID#: [id number] CC: GINGER MOSES MD;*EndCC*
--- NOTE | 2016-11-10 11:58 | PN ---
Date/Time of Note Date/Time of Note DATE: 11/10/16 TIME: 11:58 Assessment/Plan VTE Prophylaxis VTE Prophylaxis Intervention: other Lines/Catheters IV Catheter Type (from Nrs): PICC Line Central line still needed: Yes Urinary Cath still in place: No Assessment/Plan Chief Complaint/Hosp Course - Fever, barker culture, cxr, start broad-spectrum antibiotics. Dr Bushra foster is asked to see patient in ID consultation. - Possible small bowel obstruction, resolved. - Acute kidney injury, resolved - Severe hyperkalemia on admission, patient potassium has been fluctuating from hyperkalemia to hypokalemia. Dr Spain is following pt in nephrology consultation. - Hyponatremia, continue IV fluids monitor electrolytes. 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 Problems: Subjective 24 Hr Interval Summary Free Text/Dictation Patient is feeling better, has no complaints Exam/Review of Systems Vital Signs Vitals Vital Signs Date Time Temp Pulse Resp B/P Pulse Ox O2 Delivery O2 Flow Rate FiO2 11/10/16 08:17 111 11/10/16 07:30 99.1 19 86/49 98 Intake and Output 11/09/16 11/09/16 11/10/16 15:00 23:00 07:00 Intake Total 1300 ml 920 ml 1775 ml Output Total 600 ml 1600 ml Balance 1300 ml 320 ml 175 ml Exam Constitutional: well developed Head: atraumatic, normocephalic Neck: supple Respiratory: diminished breath sounds Cardiovascular: regular rate and rhythm Gastrointestinal: non-tender, soft Extremities: normal pulses Results Result Diagram: 11/09/16 0627 11/09/16 1808 Results 24 hrs Laboratory Tests Test 11/09/16 18:08 11/10/16 07:00 Sodium Level 133 L Potassium Level 3.2 L Chloride Level 104 Carbon Dioxide Level 27 Anion Gap 5 L Blood Urea Nitrogen 10 Creatinine 0.61 Glucose Level 100 Calcium Level 7.7 L Vancomycin Level Trough 7.5 L Medications Medications Current Medications Ondansetron HCl (Zofran Inj) 4 mg Q6H PRN IV NAUSEA AND/OR VOMITING; Start at 23:30 Morphine Sulfate (morphine) 4 mg Q6 PRN IV PAIN LEVEL 7-10 Last administered on 11/09/16t 18:21; Admin Dose 4 MG; Start 10/26/16 at 23:45 IV Flush (NS 10 ml) 10 ml PRN PRN IV FLUSH LINE; Start 10/27/16 at 19:30 Mupirocin 1 applic 1 applic BID TOP Last administered on 11/10/16 08:19; Admin Dose 1 APPLIC; Start 10/28/16 at 21:00 Sodium Chloride (NS) 1,000 ml @ 125 mls/hr Q8H IV Last administered on 03:55; Admin Dose 125 MLS/HR; Start 11/04/16 at 11:00 Potassium Chloride (Klor-Con 20) 40 meq BID PO Last administered on 11/10/16 08:18; Admin Dose 40 MEQ; Start 11/08/16 at 11:30 Acetaminophen 650 mg 650 mg Q4H PRN PO PAIN AND OR ELEVATED TEMP Last administered on 11/10/16 05:35; Admin Dose 650 MG; Start 11/08/16 at 18:00 Imipenem/ Cilastatin Sodium (Primaxin 500 Mg/ 100 ml (Pmx)) 100 ml @ 100 mls/ hr Q6 IVPB Last administered on 11/10/16 05:36; Admin Dose 100 MLS/HR; Start 11/08/16 at 19:00 Midodrine 2.5 mg 2.5 mg BID@09,17 PRN PO SBP <90; Start 11/09/16 at 12:00 Vancomycin HCl 100 ml @ 100 mls/hr Q8H IVPB ; Start 11/10/16 at 16:00 Magnesium Sulfate/ Sodium Chloride (Magnesium Sulfate/NS) 106 ml @ 35.333 mls/ hr ONCE ONCE IVPB ; Start 11/10/16 at 10:30; Stop 11/10/16 at 13:29 GINGER MOSES Nov 10, 2016 11:58
--- NOTE | 2016-11-10 17:08 | CONS ---
Date/Time of Note Date/Time of Note DATE: 11/10/16 TIME: 17:05 Assessment/Plan Assessment/Plan Additional Assessment/Plan 1. Severe hypokalemia with a potassium of 2.6 on admission. The patient's potassium has been fluctuating from hypokalemia to hyperkalemia depending on the potassium replacement. 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 Severe hyponatremia, sodium 116 on admission.-now improved 3. Acute kidney injury with a creatinine 2.5 on admission secondary to prerenal azotemia causing ischemic acute tubular necrosis.-now improved 4. History of colectomy with right-sided ileostomy. 5. History of Hirschsprung disease, status post multiple abdominal surgeries as per the patient. PLAN: no Labs today to review, yesterday pt had a agressive mag and K replacement will follow up on labs tomorrow will continue to follow up on patient Consultation Date/Type/Reason Admit Date/Time Oct 26, 2016 at 20:25 Initial Consult Date October Type of Consultation: NEPHROLOGY Referring Provider: CARLOS RODRIGUEZ MD 24 HR Interval Summary Free Text/Dictation s/p Agressive Mag and K replacement yesterday , BP stable Exam/Review of Systems Vital Signs Vitals Vital Signs Date Time Temp Pulse Resp B/P Pulse Ox O2 Delivery O2 Flow Rate FiO2 11/10/16 16:16 108 11/10/16 15:43 98.6 16 86/47 100 Intake and Output 11/09/16 11/09/16 11/10/16 15:00 23:00 07:00 Intake Total 1300 ml 920 ml 1775 ml Output Total 600 ml 1600 ml Balance 1300 ml 320 ml 175 ml Exam GENERAL: Awake, alert. No distress. HEENT: Normal. Oropharynx clear. NECK: Supple. No JVD, no lymphadenopathy. LUNGS: Clear to auscultation. No crackles, no wheezes. HEART: S1, S2 with regular rhythm. No murmur. ABDOMEN: Soft, tender to palpation diffusely. No rebound, no guarding. Bowel sounds are present. EXTREMITIES: No clubbing, cyanosis, edema. NEUROLOGICAL: Nonfocal, intact. PSYCHIATRIC: Appropriate affect and mood. Results Result Diagram: 11/09/16 0627 11/09/16 1808 Results 24 hrs Laboratory Tests Test 11/09/16 18:08 11/10/16 07:00 Sodium Level 133 L Potassium Level 3.2 L Chloride Level 104 Carbon Dioxide Level 27 Anion Gap 5 L Blood Urea Nitrogen 10 Creatinine 0.61 Glucose Level 100 Calcium Level 7.7 L Vancomycin Level Trough 7.5 L Medications Medications Current Medications Ondansetron HCl (Zofran Inj) 4 mg Q6H PRN IV NAUSEA AND/OR VOMITING; Start at 23:30 Morphine Sulfate (morphine) 4 mg Q6 PRN IV PAIN LEVEL 7-10 Last administered on 11/09/16 18:21; Admin Dose 4 MG; Start 10/26/16 at 23:45 IV Flush (NS 10 ml) 10 ml PRN PRN IV FLUSH LINE; Start 10/27/16 at 19:30 Mupirocin 1 applic 1 applic BID TOP Last administered on 11/10/16 08:19; Admin Dose 1 APPLIC; Start 10/28/16 at 21:00 Sodium Chloride (NS) 1,000 ml @ 125 mls/hr Q8H IV Last administered on 03:55; Admin Dose 125 MLS/HR; Start 11/04/16 at 11:00 Potassium Chloride (Klor-Con 20) 40 meq BID PO Last administered on 11/10/16 08:18; Admin Dose 40 MEQ; Start 11/08/16 at 11:30 Acetaminophen 650 mg 650 mg Q4H PRN PO PAIN AND OR ELEVATED TEMP Last administered on 11/10/16 05:35; Admin Dose 650 MG; Start 11/08/16 at 18:00 Imipenem/ Cilastatin Sodium (Primaxin 500 Mg/ 100 ml (Pmx)) 100 ml @ 100 mls/ hr Q6 IVPB Last administered on 11/10/16 12:09; Admin Dose 100 MLS/HR; Start 11/08/16 at 19:00 Midodrine 2.5 mg 2.5 mg BID@,17 PRN PO SBP <90; Start 11/09/16 at 12:00 Vancomycin HCl (Vancocin) 100 ml @ 100 mls/hr Q8H IVPB Last administered on 16:20; Admin Dose 100 MLS/HR; Start 4/30/17 at 16:00 Miscellaneous Information (*Rx Drug Level Order Reminder*) VANCOMYCIN TROUGH 11/11 AT 0700 ONCE ONCE XX ; Start 11/11/16 at 07:00; Stop 11/11/16 at 07:01 ROHAN VELÁZQUEZ MD Nov 10, 2016 17:08
--- NOTE | 2016-11-10 19:03 | CONS ---
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 - acute kidney injury, resolved - Hirschsprung's disease, status post colectomy/ileostomy. - MRSA colonization, on mupirocin recommendations - await the final results of blood cultures, sensitivity of S. aureus - transthoracic echo did not show endocarditis; however, this is her second episode of S. aureus bacteremia here, and I recommend transesophageal echo - continue IV vanc and imipenem; will adjust antibiotics based on the final culture results - OK to d/c mupirocin (completed) management d/w Pt and her RN Problems: Consultation Date/Type/Reason Admit Date/Time Oct 26, 2016 at 20:25 Initial Consult Date 11/09/16 Type of Consultation: ID Referring Provider: CARLOS RODRIGUEZ MD 24 HR Interval Summary Constitutional: no complaints Detailed Summary Eyes: no complaints ENT: no complaints Respiratory: no complaints Cardiovascular: no complaints Gastrointestinal: other (+ostomy bag) Genitourinary: no complaints Musculoskeletal: no complaints Skin: no complaints Neurologic: no complaints Exam/Review of Systems Vital Signs Vitals Vital Signs Date Time Temp Pulse Resp B/P Pulse Ox O2 Delivery O2 Flow Rate FiO2 11/10/16 16:16 108 11/10/16 15:43 98.6 16 86/47 100 Intake and Output 11/09/16 11/09/16 11/10/16 15:00 23:00 07:00 Intake Total 1300 ml 920 ml 1775 ml Output Total 600 ml 1600 ml Balance 1300 ml 320 ml 175 ml Exam Constitutional: alert, frail, oriented Psych: no complaints Head: atraumatic, normocephalic Eyes: nl conjunctiva, nl lids, nl sclera ENMT: nl external ears & nose, nl nasal mucosa & septum Neck: supple Respiratory: clear to auscultation, normal air movement Cardiovascular: nl pulses, regular rate and rhythm, No systolic murmur Gastrointestinal: non-tender, other (+ostomy), soft, No distended, No tender Extremities: No edema 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, nl mental status Results Result Diagram: 11/09/16 0627 11/09/16 1808 Results 24 hrs Laboratory Tests Test 11/10/16 07:00 Vancomycin Level Trough 7.5 L Medications Medications Current Medications Ondansetron HCl (Zofran Inj) 4 mg Q6H PRN IV NAUSEA AND/OR VOMITING; Start at 23:30 Morphine Sulfate (morphine) 4 mg Q6 PRN IV PAIN LEVEL 7-10 Last administered on 11/09/16 18:21; Admin Dose 4 MG; Start 10/26/16 at 23:45 IV Flush (NS 10 ml) 10 ml PRN PRN IV FLUSH LINE; Start 10/27/16 at 19:30 Mupirocin 1 applic 1 applic BID TOP Last administered on 11/10/16 08:19; Admin Dose 1 APPLIC; Start 10/28/16 at 21:00 Sodium Chloride (NS) 1,000 ml @ 125 mls/hr Q8H IV Last administered on 17:24; Admin Dose 125 MLS/HR; Start 11/04/16 at 11:00 Potassium Chloride (Klor-Con 20) 40 meq BID PO Last administered on 11/10/16 08:18; Admin Dose 40 MEQ; Start 11/08/16 at 11:30 Acetaminophen 650 mg 650 mg Q4H PRN PO PAIN AND OR ELEVATED TEMP Last administered on 11/10/16 05:35; Admin Dose 650 MG; Start 11/08/16 at 18:00 Imipenem/ Cilastatin Sodium (Primaxin 500 Mg/ 100 ml (Pmx)) 100 ml @ 100 mls/ hr Q6 IVPB Last administered on 11/10/16 17:25; Admin Dose 100 MLS/HR; Start 11/08/16 at 19:00 Midodrine 2.5 mg 2.5 mg BID@09,17 PRN PO SBP <90 Last administered on 17:25; Admin Dose 2.5 MG; Start 11/09/16 at 12:00 Vancomycin HCl (Vancocin) 100 ml @ 100 mls/hr Q8H IVPB Last administered on 16:20; Admin Dose 100 MLS/HR; Start 11/10/16 at 16:00 Miscellaneous Information (*Rx Drug Level Order Reminder*) VANCOMYCIN TROUGH 11/11 AT 0700 ONCE ONCE XX ; Start 11/11/16 at 07:00; Stop 11/11/16 at 07:01 TAWANDA FINK M.D. Nov 10, 2016 19:03
[2016-11-11] VITALS (13 sets, daily range): BP systolic 82–96; BP diastolic 43–52; PULSE 82–132; RESP 16–20
[2016-11-11] MEDS: SOD CHLORIDE 0.9% 1,000 ML IV SCH ×4 (04:05→21:25)
[2016-11-11] MEDS: IMIPENEM-CILAST 500MG IV (PMX) 100 ML IVPB SCH ×2 (05:41→12:45)
[2016-11-11 07:40] LABS: ADD SCAN DIFF NO
[2016-11-11 07:44] LABS: ABNORMAL IP MESSAGE 1; BASOPHILS % 0.3 % (0.0-2.0); EOSINOPHILS # 0.6 10^3/ul (0.0-0.5); EOSINOPHILS % 7.9 % (0.0-7.0); HEMATOCRIT 28.8 % (37.0-47.0); HEMOGLOBIN 9.8 g/dl (12.0-16.0); LYMPHOCYTES # 0.5 10^3/ul (0.8-2.9); LYMPHOCYTES % 6.7 % (15.0-51.0); MEAN CORPUSCULAR HEMOGLOBIN 31.1 pg (29.0-33.0); MEAN CORPUSCULAR VOLUME 91.4 fl (82.0-101.0); MEAN PLATELET VOLUME 9.7 fl (7.4-10.4); MONOCYTE # 0.5 10^3/ul (0.3-0.9); MONOCYTES % 7.1 % (0.0-11.0); NEUTROPHIL # 5.6 10^3/ul (1.6-7.5); NEUTROPHILS % 77.4 % (39.0-77.0); PLATELET COUNT 239 10^3/UL (140-415); RED BLOOD COUNT 3.15 10^6/ul (4.20-5.40); RED CELL DISTRIBUTION WIDTH 13.6 % (11.5-14.5); WHITE BLOOD COUNT 7.2 10^3/ul (4.8-10.8)
[2016-11-11] MEDS: VANCOMYCIN 500MG/NS (PMX) 100 ML IVPB SCH ×2 (08:00→10:30)
[2016-11-11 08:14] LABS: ALBUMIN 2.8 g/dl (3.3-4.9); ALBUMIN/GLOBULIN RATIO 1.03; CALCIUM 7.9 mg/dl (8.4-10.2); CREATININE 0.52 mg/dl (0.44-1.00); MAGNESIUM 1.9 mg/dl (1.7-2.5); POTASSIUM 3.1 mmol/L (3.5-5.1); TOTAL PROTEIN 5.5 g/dl (6.1-8.1)
[2016-11-11] MEDS: POTASSIUM CHLORIDE (SR) 20 MEQ TAB PO SCH ×2 (09:18→21:23)
--- NOTE | 2016-11-11 12:52 | CONS ---
Date/Time of Note Date/Time of Note DATE: 11/11/16 TIME: 12:49 Assessment/Plan Assessment/Plan Chief Complaint/Hosp Course - septic shock due to bacteremia - recurrent bacteremia due to MSSA, twice in one year 10/2015 and 10/2016 - persistent hypotension - h/o infected portacath, s/p removal in 2015 - possible small bowel obstruction, resolved. - acute kidney injury, resolved - Hirschsprung's disease, status post colectomy/ileostomy. - MRSA colonization, on mupirocin recommendations - transthoracic echo did not show endocarditis; however, this is her second episode of MSSA bacteremia here, and I recommend transesophageal echo - change IV vanc and imipenem to oxacillin management d/w Pt, her mother and her RN/ Left a message at Dr. Waggoner's office this morning, waiting to hear back... Problems: Consultation Date/Type/Reason Admit Date/Time Oct 26, 2016 at 20:25 Initial Consult Date 11/09/16 Type of Consultation: ID Referring Provider: CARLOS RODRIGUEZ MD 24 HR Interval Summary Constitutional: no complaints Detailed Summary Eyes: no complaints ENT: no complaints Respiratory: no complaints Cardiovascular: no complaints Gastrointestinal: no complaints, other (+ostomy) Genitourinary: no complaints Musculoskeletal: no complaints Skin: no complaints Exam/Review of Systems Vital Signs Vitals Vital Signs Date Time Temp Pulse Resp B/P Pulse Ox O2 Delivery O2 Flow Rate FiO2 11/11/16 12:32 99 11/11/16 11:45 98.3 17 91/50 100 Intake and Output 11/10/16 11/10/16 11/11/16 15:00 23:00 07:00 Intake Total 800 ml 2175 ml Output Total 1200 ml 2000 ml Balance -400 ml 175 ml Exam Constitutional: alert, oriented, well developed Psych: nl mood/affect, no complaints Head: atraumatic, normocephalic Eyes: nl conjunctiva, nl lids ENMT: nl external ears & nose, nl nasal mucosa & septum Neck: supple Respiratory: clear to auscultation, normal air movement Cardiovascular: nl pulses, regular rate and rhythm Gastrointestinal: other (+ostomy) Musculoskeletal: nl extremities to inspection 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, nl mental status, nl speech Results Result Diagram: 11/11/16 0655 11/11/16 0655 Results 24 hrs Laboratory Tests Test 11/11/16 06:55 White Blood Count 7.2 # Red Blood Count 3.15 L Hemoglobin 9.8 L Hematocrit 28.8 L Mean Corpuscular Volume 91.4 Mean Corpuscular Hemoglobin 31.1 Mean Corpuscular Hemoglobin Concent 34.0 Red Cell Distribution Width 13.6 Platelet Count 239 Mean Platelet Volume 9.7 Neutrophils % 77.4 H Lymphocytes % 6.7 L Monocytes % 7.1 Eosinophils % 7.9 H Basophils % 0.3 Nucleated Red Blood Cells % 0.0 Neutrophils # 5.6 Lymphocytes # 0.5 L Monocytes # 0.5 Eosinophils # 0.6 H Basophils # 0.0 Nucleated Red Blood Cells # 0.0 Sodium Level 136 Potassium Level 3.1 L Chloride Level 107 Carbon Dioxide Level 27 Anion Gap 5 L Blood Urea Nitrogen 8 Creatinine 0.52 Glucose Level 98 Calcium Level 7.9 L Magnesium Level 1.9 Total Bilirubin 0.0 L Direct Bilirubin 0.00 Indirect Bilirubin 0.0 Aspartate Amino Transf (AST/SGOT) 32 Alanine Aminotransferase (ALT/SGPT) 48 Alkaline Phosphatase 58 Total Protein 5.5 L Albumin 2.8 L Globulin 2.70 Albumin/Globulin Ratio 1.03 Vancomycin Level Trough 15.0 Medications Medications Current Medications Ondansetron HCl (Zofran Inj) 4 mg Q6H PRN IV NAUSEA AND/OR VOMITING; Start at 23:30 Morphine Sulfate (morphine) 4 mg Q6 PRN IV PAIN LEVEL 7-10 Last administered on 11/09/16 18:21; Admin Dose 4 MG; Start 10/26/16 at 23:45 IV Flush 10 ml 10 ml PRN PRN IV FLUSH LINE; Start 10/27/16 at 19:30 Sodium Chloride (NS) 1,000 ml @ 125 mls/hr Q8H IV Last administered on 04:05; Admin Dose 125 MLS/HR; Start 11/04/16 at 11:00 Potassium Chloride (Klor-Con 20) 40 meq BID PO Last administered on 11/11/16 09 :18; Admin Dose 40 MEQ; Start 11/08/16 at 11:30 Acetaminophen 650 mg 650 mg Q4H PRN PO PAIN AND OR ELEVATED TEMP Last administered on 4/30/17at 22:10; Admin Dose 650 MG; Start 11/08/16 at 18:00 Imipenem/ Cilastatin Sodium (Primaxin 500 Mg/ 100 ml (Pmx)) 100 ml @ 100 mls/ hr Q6 IVPB Last administered on 11/11/16 12:45; Admin Dose 100 MLS/HR; Start at 19:00 Midodrine 2.5 mg 2.5 mg BID@,17 PRN PO SBP <90 Last administered on 17:25; Admin Dose 2.5 MG; Start 11/09/16 at 12:00 Vancomycin HCl (Vancocin) 100 ml @ 100 mls/hr Q8H IVPB Last administered on 10:30; Admin Dose 100 MLS/HR; Start 11/10/16 at 16:00 TAWANDA FINK M.D. November 11, 2016 12:52
--- NOTE | 2016-11-11 13:57 | CONS ---
Date/Time of Note Date/Time of Note DATE: 11/11/16 TIME: 13:55 Assessment/Plan Assessment/Plan Additional Assessment/Plan 1. Severe hypokalemia with a potassium of 2.6 on admission. The patient's potassium has been fluctuating from hypokalemia to hyperkalemia depending on the potassium replacement. 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 Severe hyponatremia, sodium 116 on admission.-now improved 3. Acute kidney injury with a creatinine 2.5 on admission secondary to prerenal azotemia causing ischemic acute tubular necrosis.-now improved 4. History of colectomy with right-sided ileostomy. 5. History of Hirschsprung disease, status post multiple abdominal surgeries as per the patient. PLAN: KCl 20meQ IV x 1 dose now, [id number] BID mag stable will follow up Consultation Date/Type/Reason Admit Date/Time Oct 26, 2016 at 20:25 Initial Consult Date October Type of Consultation: NEPHROLOGY Referring Provider: CARLOS RODRIGUEZ MD 24 HR Interval Summary Free Text/Dictation K 3.2, afebrile, BP stable Exam/Review of Systems Vital Signs Vitals Vital Signs Date Time Temp Pulse Resp B/P Pulse Ox O2 Delivery O2 Flow Rate FiO2 11/11/16 13:03 132 11/11/16 11:45 98.3 17 91/50 100 Intake and Output 11/10/16 11/10/16 11/11/16 15:00 23:00 07:00 Intake Total 800 ml 2175 ml Output Total 1200 ml 2000 ml Balance -400 ml 175 ml Exam GENERAL: Awake, alert. No distress. HEENT: Normal. Oropharynx clear. NECK: Supple. No JVD, no lymphadenopathy. LUNGS: Clear to auscultation. No crackles, no wheezes. HEART: S1, S2 with regular rhythm. No murmur. ABDOMEN: Soft, tender to palpation diffusely. No rebound, no guarding. Bowel sounds are present. EXTREMITIES: No clubbing, cyanosis, edema. NEUROLOGICAL: Nonfocal, intact. PSYCHIATRIC: Appropriate affect and mood. Results Result Diagram: 11/11/16 0655 11/11/16 0655 Results 24 hrs Laboratory Tests Test 11/11/16 06:55 White Blood Count 7.2 # Red Blood Count 3.15 L Hemoglobin 9.8 L Hematocrit 28.8 L Mean Corpuscular Volume 91.4 Mean Corpuscular Hemoglobin 31.1 Mean Corpuscular Hemoglobin Concent 34.0 Red Cell Distribution Width 13.6 Platelet Count 239 Mean Platelet Volume 9.7 Neutrophils % 77.4 H Lymphocytes % 6.7 L Monocytes % 7.1 Eosinophils % 7.9 H Basophils % 0.3 Nucleated Red Blood Cells % 0.0 Neutrophils # 5.6 Lymphocytes # 0.5 L Monocytes # 0.5 Eosinophils # 0.6 H Basophils # 0.0 Nucleated Red Blood Cells # 0.0 Sodium Level 136 Potassium Level 3.1 L Chloride Level 107 Carbon Dioxide Level 27 Anion Gap 5 L Blood Urea Nitrogen 8 Creatinine 0.52 Glucose Level 98 Calcium Level 7.9 L Magnesium Level 1.9 Total Bilirubin 0.0 L Direct Bilirubin 0.00 Indirect Bilirubin 0.0 Aspartate Amino Transf (AST/SGOT) 32 Alanine Aminotransferase (ALT/SGPT) 48 Alkaline Phosphatase 58 Total Protein 5.5 L Albumin 2.8 L Globulin 2.70 Albumin/Globulin Ratio 1.03 Vancomycin Level Trough 15.0 Medications Medications Current Medications Ondansetron HCl (Zofran Inj) 4 mg Q6H PRN IV NAUSEA AND/OR VOMITING; Start at 23:30 Morphine Sulfate (morphine) 4 mg Q6 PRN IV PAIN LEVEL 7-10 Last administered on 11/09/16 18:21; Admin Dose 4 MG; Start 10/26/16 at 23:45 IV Flush 10 ml 10 ml PRN PRN IV FLUSH LINE; Start 10/27/16 at 19:30 Sodium Chloride (NS) 1,000 ml @ 125 mls/hr Q8H IV Last administered on 04:05; Admin Dose 125 MLS/HR; Start 11/04/16 at 11:00 Potassium Chloride (Klor-Con 20) 40 meq BID PO Last administered on 11/11/16 09 :18; Admin Dose 40 MEQ; Start 11/08/16 at 11:30 Acetaminophen (Tylenol Tab) 650 mg Q4H PRN PO PAIN AND OR ELEVATED TEMP Last administered on 11/10/16 22:10; Admin Dose 650 MG; Start 11/08/16 at 18:00 Midodrine 2.5 mg 2.5 mg BID@09,17 PRN PO SBP <90 Last administered on t 17:25; Admin Dose 2.5 MG; Start 11/09/16 at 12:00 Oxacillin Sodium 2 gm/Sodium Chloride 50 ml @ 100 mls/hr Q6 IVPB ; Start at 14:00 Potassium Chloride/Sodium Chloride (KCl/NS) 110 ml @ 55 mls/hr ONCE ONCE IVPB ; Start 11/11/16 at 14:00; Stop 11/11/16 at 15:59; Status UNV ROHAN VELÁZQUEZ MD November 11, 2016 13:57
[2016-11-11] MEDS: OXACILLIN 2 GM in SOD CHLORIDE 0.9% 50 ML IVPB SCH ×3 (14:19→23:37)
--- NOTE | 2016-11-11 14:35 | PN ---
Date/Time of Note Date/Time of Note DATE: 11/11/16 TIME: 14:31 Assessment/Plan VTE Prophylaxis VTE Prophylaxis Intervention: SCD's Lines/Catheters IV [facility]ter Type (from [facility] PICC Line Central line still needed: Yes Urinary Cath still in place: No Assessment/Plan Chief Complaint/Hosp Course ASSESSMENT AND PLAN: - MASON bacteremia. Dr Bushra foster is following in ID consultation. Continue antibiotics per ID. -Sinus tachycardia, Dr. Barrett is following and cardiology consultation, pending TRES. - Possible small bowel obstruction, resolved. - Acute kidney injury, resolved - Severe hyperkalemia on admission, patient potassium has been fluctuating from hyperkalemia to hypokalemia. Dr Spain is following pt in nephrology consultation. - Hyponatremia, continue IV fluids monitor electrolytes. 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 Further recommendations based on clinical course. Plan of care discussed with Dr. Paez. Problems: Subjective 24 Hr Interval Summary Free Text/Dictation No fever per nurse, patient denies chills, borderline hypotension. Exam/Review of Systems Vital Signs Vitals Vital Signs Date Time Temp Pulse Resp B/P Pulse Ox O2 Delivery O2 Flow Rate FiO2 11/11/16 13:03 132 11/11/16 11:45 98.3 17 91/50 100 Intake and Output 11/10/16 11/10/16 11/11/16 15:00 23:00 07:00 Intake Total 800 ml 2175 ml Output Total 1200 ml 2000 ml Balance -400 ml 175 ml Exam Constitutional: alert, oriented Psych: no complaints Head: atraumatic, normocephalic Eyes: nl conjunctiva ENMT: nl external ears & nose Neck: non-tender, supple Respiratory: clear to auscultation, normal air movement Cardiovascular: nl pulses, regular rate and rhythm Gastrointestinal: non-tender, other (Ileostomy), soft Musculoskeletal: nl extremities to inspection Extremities: normal pulses 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: BARREL REPAIRER II-XII intact Results Result Diagram: 11/11/16 0655 11/11/16 0655 Results 24 hrs Laboratory Tests Test 11/11/16 06:55 White Blood Count 7.2 # Red Blood Count 3.15 L Hemoglobin 9.8 L Hematocrit 28.8 L Mean Corpuscular Volume 91.4 Mean Corpuscular Hemoglobin 31.1 Mean Corpuscular Hemoglobin Concent 34.0 Red Cell Distribution Width 13.6 Platelet Count 239 Mean Platelet Volume 9.7 Neutrophils % 77.4 H Lymphocytes % 6.7 L Monocytes % 7.1 Eosinophils % 7.9 H Basophils % 0.3 Nucleated Red Blood Cells % 0.0 Neutrophils # 5.6 Lymphocytes # 0.5 L Monocytes # 0.5 Eosinophils # 0.6 H Basophils # 0.0 Nucleated Red Blood Cells # 0.0 Sodium Level 136 Potassium Level 3.1 L Chloride Level 107 Carbon Dioxide Level 27 Anion Gap 5 L Blood Urea Nitrogen 8 Creatinine 0.52 Glucose Level 98 Calcium Level 7.9 L Magnesium Level 1.9 Total Bilirubin 0.0 L Direct Bilirubin 0.00 Indirect Bilirubin 0.0 Aspartate Amino Transf (AST/SGOT) 32 Alanine Aminotransferase (ALT/SGPT) 48 Alkaline Phosphatase 58 Total Protein 5.5 L Albumin 2.8 L Globulin 2.70 Albumin/Globulin Ratio 1.03 Vancomycin Level Trough 15.0 Medications Medications Current Medications Ondansetron HCl (Zofran Inj) 4 mg Q6H PRN IV NAUSEA AND/OR VOMITING; Start at 23:30 Morphine Sulfate (morphine) 4 mg Q6 PRN IV PAIN LEVEL 7-10 Last administered on 11/09/16 18:21; Admin Dose 4 MG; Start 10/26/16 at 23:45 IV Flush 10 ml 10 ml PRN PRN IV FLUSH LINE; Start 10/27/16 at 19:30 Sodium Chloride (NS) 1,000 ml @ 125 mls/hr Q8H IV Last administered on 14:19; Admin Dose 125 MLS/HR; Start 11/04/16 at 11:00 Potassium Chloride (Klor-Con 20) 40 meq BID PO Last administered on 11/11/16 09 :18; Admin Dose 40 MEQ; Start 11/08/16 at 11:30 Acetaminophen (Tylenol Tab) 650 mg Q4H PRN PO PAIN AND OR ELEVATED TEMP Last administered on 11/10/16 22:10; Admin Dose 650 MG; Start 11/08/16 at 18:00 Midodrine 2.5 mg 2.5 mg BID@ PRN PO SBP <90 Last administered on 17:25; Admin Dose 2.5 MG; Start 11/09/16 at 12:00 Oxacillin Sodium 2 gm/Sodium Chloride 50 ml @ 100 mls/hr Q6 IVPB Last administered on 11/11/16 14:19; Admin Dose 100 MLS/HR; Start 11/11/16 at 14:00 Potassium Chloride/Sodium Chloride (KCl/NS) 110 ml @ 55 mls/hr ONCE IVPB ; Start 11/11/16 at 15:00; Stop 11/11/16 at 16:59 ROMI ESPINO November 11, 2016 14:35
[2016-11-11] MEDS ORDERED: POTASSIUM CHLORIDE 20 MEQ in SOD CHLORIDE 0.9% 100 ML IVPB SCH (15:00)
--- NOTE | 2016-11-11 16:24 | CONS ---
Date/Time of Note Date/Time of Note DATE: 11/11/16 TIME: 16:22 Assessment/Plan Assessment/Plan Additional Assessment/Plan Sinus tachycardia Bacteremia Possible ileus Hirschsprung disease Preserved ejection fraction Electrolyte abnormalities -Heart rate trend improving. Discussion with our infectious disease colleague, patient with recurrent staph bacteremia. Request made for transesophageal echocardiogram to rule out endocarditis is possible etiology. This was discussed with the patient in agreement to proceed. Tentatively plan for November 12. Consultation Date/Type/Reason Admit Date/Time Oct 26, 2016 at 20:25 Initial Consult Date 11/09/16 Type of Consultation: cv Referring Provider: CARLOS RODRIGUEZ MD 24 HR Interval Summary Free Text/Dictation Denies palpitations, shortness of breath or chest pain Exam/Review of Systems Vital Signs Vitals Vital Signs Date Time Temp Pulse Resp B/P Pulse Ox O2 Delivery O2 Flow Rate FiO2 11/11/16 13:03 132 11/11/16 11:45 98.3 17 91/50 100 Intake and Output 11/10/16 11/10/16 11/11/16 15:00 23:00 07:00 Intake Total 800 ml 2175 ml Output Total 1200 ml 2000 ml Balance -400 ml 175 ml Exam No apparent distress Constitutional: alert, frail, oriented Head: normocephalic Respiratory: other (Coarse breath sounds bilaterally, no wheezing) Cardiovascular: other (S1-S2 heard), regular rate and rhythm Gastrointestinal: bowel sounds, non-tender, soft Extremities: other (No guarding) Results Result Diagram: 11/11/16 0655 11/11/16 0655 Results 24 hrs Laboratory Tests Test 11/11/16 06:55 White Blood Count 7.2 # Red Blood Count 3.15 L Hemoglobin 9.8 L Hematocrit 28.8 L Mean Corpuscular Volume 91.4 Mean Corpuscular Hemoglobin 31.1 Mean Corpuscular Hemoglobin Concent 34.0 Red Cell Distribution Width 13.6 Platelet Count 239 Mean Platelet Volume 9.7 Neutrophils % 77.4 H Lymphocytes % 6.7 L Monocytes % 7.1 Eosinophils % 7.9 H Basophils % 0.3 Nucleated Red Blood Cells % 0.0 Neutrophils # 5.6 Lymphocytes # 0.5 L Monocytes # 0.5 Eosinophils # 0.6 H Basophils # 0.0 Nucleated Red Blood Cells # 0.0 Sodium Level 136 Potassium Level 3.1 L Chloride Level 107 Carbon Dioxide Level 27 Anion Gap 5 L Blood Urea Nitrogen 8 Creatinine 0.52 Glucose Level 98 Calcium Level 7.9 L Magnesium Level 1.9 Total Bilirubin 0.0 L Direct Bilirubin 0.00 Indirect Bilirubin 0.0 Aspartate Amino Transf (AST/SGOT) 32 Alanine Aminotransferase (ALT/SGPT) 48 Alkaline Phosphatase 58 Total Protein 5.5 L Albumin 2.8 L Globulin 2.70 Albumin/Globulin Ratio 1.03 Vancomycin Level Trough 15.0 Medications Medications Current Medications Ondansetron HCl (Zofran Inj) 4 mg Q6H PRN IV NAUSEA AND/OR VOMITING; Start at 23:30 Morphine Sulfate (morphine) 4 mg Q6 PRN IV PAIN LEVEL 7-10 Last administered on 11/09/16 18:21; Admin Dose 4 MG; Start 10/26/16 at 23:45 IV Flush 10 ml 10 ml PRN PRN IV FLUSH LINE; Start 10/27/16 at 19:30 Sodium Chloride (NS) 1,000 ml @ 125 mls/hr Q8H IV Last administered on 14:19; Admin Dose 125 MLS/HR; Start 11/04/16 at 11:00 Potassium Chloride (Klor-Con 20) 40 meq BID PO Last administered on 11/11/16 09 :18; Admin Dose 40 MEQ; Start 11/08/16 at 11:30 Acetaminophen (Tylenol Tab) 650 mg Q4H PRN PO PAIN AND OR ELEVATED TEMP Last administered on 11/10/16 22:10; Admin Dose 650 MG; Start 11/08/16 at 18:00 Midodrine 2.5 mg 2.5 mg BID@09,17 PRN PO SBP <90 Last administered on 17:25; Admin Dose 2.5 MG; Start 11/09/16 at 12:00 Oxacillin Sodium 2 gm/Sodium Chloride 50 ml @ 100 mls/hr Q6 IVPB Last administered on 11/11/16 14:19; Admin Dose 100 MLS/HR; Start 11/11/16 at 14:00 Potassium Chloride/Sodium Chloride (KCl/NS) 110 ml @ 55 mls/hr ONCE IVPB ; Start 11/11/16 at 15:00; Stop 11/11/16 at 16:59 Marcelino Waggoner DO November 11, 2016 16:24
[2016-11-11] MEDS: ACETAMINOPHEN 325 MG TAB PO PRN (23:35)
[2016-11-12] VITALS (12 sets, daily range): BP systolic 87–127; BP diastolic 51–71; PULSE 95–120; RESP 16–20
[2016-11-12] MEDS: OXACILLIN 2 GM in SOD CHLORIDE 0.9% 50 ML IVPB SCH ×3 (05:08→18:00)
[2016-11-12] MEDS: SOD CHLORIDE 0.9% 1,000 ML IV SCH ×2 (05:20→14:59)
[2016-11-12 07:21] LABS: ADD SCAN DIFF NO
[2016-11-12 07:43] LABS: ABNORMAL IP MESSAGE 1; BASOPHILS % 0.3 % (0.0-2.0); EOSINOPHILS # 0.6 10^3/ul (0.0-0.5); EOSINOPHILS % 9.7 % (0.0-7.0); HEMATOCRIT 27.9 % (37.0-47.0); HEMOGLOBIN 9.4 g/dl (12.0-16.0); LYMPHOCYTES # 0.5 10^3/ul (0.8-2.9); MEAN CORPUSCULAR HEMOGLOBIN 31.2 pg (29.0-33.0); MEAN CORPUSCULAR HGB CONC 33.7 g/dl (32.0-37.0); MEAN CORPUSCULAR VOLUME 92.7 fl (82.0-101.0); MEAN PLATELET VOLUME 9.9 fl (7.4-10.4); MONOCYTE # 0.4 10^3/ul (0.3-0.9); MONOCYTES % 6.5 % (0.0-11.0); NEUTROPHIL # 4.4 10^3/ul (1.6-7.5); NEUTROPHILS % 73.7 % (39.0-77.0); PLATELET COUNT 258 10^3/UL (140-415); POTASSIUM 3.6 mmol/L (3.5-5.1); RED BLOOD COUNT 3.01 10^6/ul (4.20-5.40); RED CELL DISTRIBUTION WIDTH 13.8 % (11.5-14.5)
[2016-11-12 07:45] LABS: CREATININE 0.61 mg/dl (0.44-1.00)
[2016-11-12 07:46] LABS: CALCIUM 8.1 mg/dl (8.4-10.2)
[2016-11-12] MEDS ORDERED: PROPOFOL 40 ML ONE (13:04)
[2016-11-12] MEDS ORDERED: LIDOCAINE 2% (SDV) 5 ML INJ ONE (13:04)
--- NOTE | 2016-11-12 13:51 | CONS ---
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 - acute kidney injury, resolved - Hirschsprung's disease, status post colectomy/ileostomy. - MRSA colonization, on mupirocin recommendations - I will review the result of her transesophageal echo - continue IV oxacillin (11/11/2016), duration to be determined based on the result of echo management d/w Pt's mother and Dr. Waggoner Problems: Consultation Date/Type/Reason Admit Date/Time Oct 26, 2016 at 20:25 Initial Consult Date 11/09/16 Type of Consultation: ID Referring Provider: CARLOS RODRIGUEZ MD 24 HR Interval Summary Free Text/Dictation Pt was in TRES and I could not examine her. EMR was reviewed Exam/Review of Systems Vital Signs Vitals Vital Signs Date Time Temp Pulse Resp B/P Pulse Ox O2 Delivery O2 Flow Rate FiO2 11/12/16 13:05 109 11/12/16 11:38 98.2 18 102/55 100 Intake and Output 11/11/16 11/11/16 11/12/16 15:00 23:00 07:00 Intake Total 600 ml 550 ml Output Total 875 ml 200 ml 900 ml Balance -875 ml 400 ml -350 ml Results Result Diagram: 11/12/16 0628 11/12/16 0628 Results 24 hrs Laboratory Tests Test 11/12/16 06:28 White Blood Count 6.0 Red Blood Count 3.01 L Hemoglobin 9.4 L Hematocrit 27.9 L Mean Corpuscular Volume 92.7 Mean Corpuscular Hemoglobin 31.2 Mean Corpuscular Hemoglobin Concent 33.7 Red Cell Distribution Width 13.8 Platelet Count 258 Mean Platelet Volume 9.9 Neutrophils % 73.7 Lymphocytes % 9.0 L Monocytes % 6.5 Eosinophils % 9.7 H Basophils % 0.3 Nucleated Red Blood Cells % 0.0 Neutrophils # 4.4 Lymphocytes # 0.5 L Monocytes # 0.4 Eosinophils # 0.6 H Basophils # 0.0 Nucleated Red Blood Cells # 0.0 Sodium Level 138 Potassium Level 3.6 Chloride Level 105 Carbon Dioxide Level 26 Anion Gap 11 Blood Urea Nitrogen 15 Creatinine 0.61 Glucose Level 84 Calcium Level 8.1 L Medications Medications Current Medications Ondansetron HCl (Zofran Inj) 4 mg Q6H PRN IV NAUSEA AND/OR VOMITING; Start at 23:30 Morphine Sulfate (morphine) 4 mg Q6 PRN IV PAIN LEVEL 7-10 Last administered on 11/09/16 18:21; Admin Dose 4 MG; Start 10/26/16 at 23:45 IV Flush 10 ml 10 ml PRN PRN IV FLUSH LINE; Start 10/27/16 at 19:30 Sodium Chloride (NS) 1,000 ml @ 125 mls/hr Q8H IV Last administered on 05:20; Admin Dose 125 MLS/HR; Start 11/04/16 at 11:00 Potassium Chloride (Klor-Con 20) 40 meq BID PO Last administered on 11/11/16 21 :23; Admin Dose 40 MEQ; Start 11/08/16 at 11:30 Acetaminophen (Tylenol Tab) 650 mg Q4H PRN PO PAIN AND OR ELEVATED TEMP Last administered on 11/11/16 23:35; Admin Dose 650 MG; Start 11/08/16 at 18:00 Midodrine 2.5 mg 2.5 mg BID@09,17 PRN PO SBP <90 Last administered on 17:25; Admin Dose 2.5 MG; Start 11/09/16 at 12:00 Oxacillin Sodium/ Sodium Chloride (Oxacillin/NS) 50 ml @ 100 mls/hr Q6 IVPB Last administered on 11/12/16 12:55; Admin Dose 100 MLS/HR; Start 11/11/16 at 14: 00 TAWANDA FINK M.D. November 12, 2016 13:51
--- NOTE | 2016-11-12 14:53 | RADRPT ---
PROCEDURE: Chest Radiograph. CLINICAL INDICATION: Postop. Post the TECHNIQUE: Single frontal chest radiograph. COMPARISON: Chest radiograph 11/09/2016 FINDINGS: A right upper extremity PICC is in place with distal tip in the region of the superior vena cava. T here is mild obscuration of the left hemidiaphragm suggesting infiltrate and/or effusion. There is no pneumothorax. The bones are intact. IMPRESSION: 1. 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 Recommend follow-up. 2. No pneumothorax. RPTAT: KK .José Awan MD, MD Date Time Electronically viewed and signed by .José Awan MD, MD on 11/12/2016 14:53 .B/
--- NOTE | 2016-11-12 14:56 | CONS ---
Date/Time of Note Date/Time of Note DATE: 11/12/16 TIME: 14:55 Assessment/Plan Assessment/Plan Additional Assessment/Plan Sinus tachycardia Bacteremia Possible ileus Hirschsprung disease Preserved ejection fraction Electrolyte abnormalities -Patient status post transesophageal echocardiogram with no evidence of vegetation seen. Heart rate trend improving. Maintain potassium above 4.0 and magnesium above 2.0. Consultation Date/Type/Reason Admit Date/Time Oct 26, 2016 at 20:25 Initial Consult Date 11/09/16 Type of Consultation: cv Referring Provider: CARLOS RODRIGUEZ MD 24 HR Interval Summary Free Text/Dictation Denies palpitations, shortness of breath Exam/Review of Systems Vital Signs Vitals Vital Signs Date Time Temp Pulse Resp B/P Pulse Ox O2 Delivery O2 Flow Rate FiO2 11/12/16 13:05 109 11/12/16 11:38 98.2 18 102/55 100 Intake and Output 11/11/16 11/11/16 11/12/16 15:00 23:00 07:00 Intake Total 600 ml 550 ml Output Total 875 ml 200 ml 900 ml Balance -875 ml 400 ml -350 ml Exam No apparent distress Constitutional: alert, frail, oriented Head: normocephalic Respiratory: other (Coarse breath sounds bilaterally, no wheezing) Cardiovascular: other (s1s2), regular rate and rhythm Gastrointestinal: bowel sounds, non-tender, soft Extremities: other (No edema) Results Result Diagram: 11/12/16 0628 11/12/16 0628 Results 24 hrs Laboratory Tests Test 11/12/16 06:28 White Blood Count 6.0 Red Blood Count 3.01 L Hemoglobin 9.4 L Hematocrit 27.9 L Mean Corpuscular Volume 92.7 Mean Corpuscular Hemoglobin 31.2 Mean Corpuscular Hemoglobin Concent 33.7 Red Cell Distribution Width 13.8 Platelet Count 258 Mean Platelet Volume 9.9 Neutrophils % 73.7 Lymphocytes % 9.0 L Monocytes % 6.5 Eosinophils % 9.7 H Basophils % 0.3 Nucleated Red Blood Cells % 0.0 Neutrophils # 4.4 Lymphocytes # 0.5 L Monocytes # 0.4 Eosinophils # 0.6 H Basophils # 0.0 Nucleated Red Blood Cells # 0.0 Sodium Level 138 Potassium Level 3.6 Chloride Level 105 Carbon Dioxide Level 26 Anion Gap 11 Blood Urea Nitrogen 15 Creatinine 0.61 Glucose Level 84 Calcium Level 8.1 L Medications Medications Current Medications Ondansetron HCl (Zofran Inj) 4 mg Q6H PRN IV NAUSEA AND/OR VOMITING; Start at 23:30 Morphine Sulfate (morphine) 4 mg Q6 PRN IV PAIN LEVEL 7-10 Last administered on 11/09/16 18:21; Admin Dose 4 MG; Start 10/26/16 at 23:45 IV Flush 10 ml 10 ml PRN PRN IV FLUSH LINE; Start 10/27/16 at 19:30 Sodium Chloride (NS) 1,000 ml @ 125 mls/hr Q8H IV Last administered on 05:20; Admin Dose 125 MLS/HR; Start 11/04/16 at 11:00 Potassium Chloride (Klor-Con 20) 40 meq BID PO Last administered on 11/11/16 21 :23; Admin Dose 40 MEQ; Start 11/08/16 at 11:30 Acetaminophen (Tylenol Tab) 650 mg Q4H PRN PO PAIN AND OR ELEVATED TEMP Last administered on 11/11/16 23:35; Admin Dose 650 MG; Start 11/08/16 at 18:00 Midodrine 2.5 mg 2.5 mg BID@09,17 PRN PO SBP <90 Last administered on 17:25; Admin Dose 2.5 MG; Start 11/09/16 at 12:00 Oxacillin Sodium/ Sodium Chloride (Oxacillin/NS) 50 ml @ 100 mls/hr Q6 IVPB Last administered on 11/12/16 12:55; Admin Dose 100 MLS/HR; Start 11/11/16 at 14: 00 Marcelino Waggoner DO November 12, 2016 14:56
[2016-11-12] MEDS: POTASSIUM CHLORIDE (SR) 20 MEQ TAB PO SCH ×2 (16:36→21:00)
--- NOTE | 2016-11-12 16:53 | PN ---
Date/Time of Note Date/Time of Note DATE: 11/12/16 TIME: 16:49 Assessment/Plan VTE Prophylaxis VTE Prophylaxis Intervention: SCD's Lines/Catheters IV C[facility]ter Type (from [facility] PICC Line Central line still needed: No Urinary Cath still in place: No Assessment/Plan Chief Complaint/Hosp Course ASSESSMENT AND PLAN: - MASON bacteremia. Dr Bushra foster is following in ID consultation. Continue antibiotics per ID. TRES is negative for vegetation. - Sinus tachycardia, Dr. Barrett is following and cardiology consultation. - Possible small bowel obstruction, resolved. - Acute kidney injury, resolved - Severe hyperkalemia on admission, patient potassium has been fluctuating from hyperkalemia to hypokalemia. Dr Spain is following pt in nephrology consultation. - Hyponatremia, continue IV fluids monitor electrolytes. 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 Patient needs vascular access, Dr. Raymond is asked to see patient in vascular surgery consultation for possible permacath placement. Further recommendations based on clinical course. Plan of care discussed with Dr. Paez. Problems: Subjective 24 Hr Interval Summary Free Text/Dictation Sinus rhythm to sinus tachycardia on telemetry monitoring, patient denies any fever, denies any shortness of breath, status post TRES today. Exam/Review of Systems Vital Signs Vitals Vital Signs Date Time Temp Pulse Resp B/P Pulse Ox O2 Delivery O2 Flow Rate FiO2 11/12/16 16:21 108 11/12/16 15:57 98.4 18 98/57 99 Intake and Output 11/11/16 11/11/16 11/12/16 15:00 23:00 07:00 Intake Total 600 ml 550 ml Output Total 875 ml 200 ml 900 ml Balance -875 ml 400 ml -350 ml Exam Constitutional: alert, oriented Psych: no complaints Head: atraumatic, normocephalic Eyes: nl conjunctiva ENMT: nl external ears & nose Neck: non-tender, supple Respiratory: clear to auscultation, normal air movement Cardiovascular: nl pulses, regular rate and rhythm Gastrointestinal: non-tender, other (Ileostomy), soft Musculoskeletal: nl extremities to inspection Extremities: normal pulses 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: ADMISSIONS EVALUATOR II-XII intact Results Result Diagram: 5/2/17 0628 5/2/17 0628 Results 24 hrs Laboratory Tests Test 11/12/16 06:28 White Blood Count 6.0 Red Blood Count 3.01 L Hemoglobin 9.4 L Hematocrit 27.9 L Mean Corpuscular Volume 92.7 Mean Corpuscular Hemoglobin 31.2 Mean Corpuscular Hemoglobin Concent 33.7 Red Cell Distribution Width 13.8 Platelet Count 258 Mean Platelet Volume 9.9 Neutrophils % 73.7 Lymphocytes % 9.0 L Monocytes % 6.5 Eosinophils % 9.7 H Basophils % 0.3 Nucleated Red Blood Cells % 0.0 Neutrophils # 4.4 Lymphocytes # 0.5 L Monocytes # 0.4 Eosinophils # 0.6 H Basophils # 0.0 Nucleated Red Blood Cells # 0.0 Sodium Level 138 Potassium Level 3.6 Chloride Level 105 Carbon Dioxide Level 26 Anion Gap 11 Blood Urea Nitrogen 15 Creatinine 0.61 Glucose Level 84 Calcium Level 8.1 L Medications Medications Current Medications Ondansetron HCl (Zofran Inj) 4 mg Q6H PRN IV NAUSEA AND/OR VOMITING; Start at 23:30 Morphine Sulfate (morphine) 4 mg Q6 PRN IV PAIN LEVEL 7-10 Last administered on 11/09/16 18:21; Admin Dose 4 MG; Start 10/26/16 at 23:45 IV Flush 10 ml 10 ml PRN PRN IV FLUSH LINE; Start 10/27/16 at 19:30 Sodium Chloride (NS) 1,000 ml @ 125 mls/hr Q8H IV Last administered on 05:20; Admin Dose 125 MLS/HR; Start 11/04/16 at 11:00 Potassium Chloride (Klor-Con 20) 40 meq BID PO Last administered on 11/12/16 16 :36; Admin Dose 40 MEQ; Start 11/08/16 at 11:30 Acetaminophen (Tylenol Tab) 650 mg Q4H PRN PO PAIN AND OR ELEVATED TEMP Last administered on 11/11/16 23:35; Admin Dose 650 MG; Start 11/08/16 at 18:00 Midodrine 2.5 mg 2.5 mg BID@09,17 PRN PO SBP <90 Last administered on 17:25; Admin Dose 2.5 MG; Start 11/09/16 at 12:00 Oxacillin Sodium/ Sodium Chloride (Oxacillin/NS) 50 ml @ 100 mls/hr Q6 IVPB Last administered on 11/12/16t 12:55; Admin Dose 100 MLS/HR; Start 11/11/16 at 14: 00 ROMI ESPINO November 12, 2016 16:53
--- NOTE | 2016-11-12 17:51 | CARRPT ---
DATE OF PROCEDURE: 11/12/2016 PROCEDURE: Transesophageal echocardiogram. PATIENT HISTORY: This is a 41-year-old female who presents with recurrent bacteremia and recommenda tions were made for transesophageal echocardiogram to rule out bacterial endocarditis. DESCRIPTION OF PROCEDURE: Anesthesia was available for anesthesia. After the patient was well anes thetized, the patient was intubated with a TRES probe. Images were obtained. TRES probe was removed. There were no immediate complications. FINDINGS: 1. Imaging quality was fair. 2. Left ventricular systolic function was normal with normal size. 3. Left atrium appeared mildly dilated. 4. Right ventricle appeared grossly normal. 5. Right atrium appeared grossly normal. 6. Mitral valve appeared mildly thickened. There was no clear evidence of vegetations. There was moderate mitral valve regurgitation. 7. Aortic valve was trileaflet. It was mildly thickened. There was no evidence of any vegetation. 8. Tricuspid valve was poorly visualized with no gross evidence of vegetation. 9. Pulmonic valve was poorly visualized with trace regurgitation. 10. Aortic root did demonstrate an echo dense linear structure, which likely was the PICC line. DIAGNOSES: 1. Moderate mitral valve regurgitation. 2. Echolucent structure seen in the ascending aorta, consistent with the patient's PICC line. COMPLICATIONS: None. BLOOD LOSS: None. RECOMMENDATIONS: Removal of PICC line, management as per primary team. Dictated By: HORACIO BUSTOS/CRISTINA Conf#: [id number] DID#: [id number]
--- NOTE | 2016-11-12 18:59 | CONS ---
Date/Time of Note Date/Time of Note DATE: 11/12/16 TIME: 18:59 Assessment/Plan Assessment/Plan Additional Assessment/Plan 1. Severe hypokalemia with a potassium of 2.6 on admission. The patient's potassium has been fluctuating from hypokalemia to hyperkalemia depending on the potassium replacement. 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 Severe hyponatremia, sodium 116 on admission.-now improved 3. Acute kidney injury with a creatinine 2.5 on admission secondary to prerenal azotemia causing ischemic acute tubular necrosis.-now improved 4. History of colectomy with right-sided ileostomy. 5. History of Hirschsprung disease, status post multiple abdominal surgeries as per the patient. PO [id number] BID mag stable will follow up Consultation Date/Type/Reason Admit Date/Time Oct 26, 2016 at 20:25 Initial Consult Date October Type of Consultation: NEPHROLOGY Referring Provider: CARLOS RODRIGUEZ MD 24 HR Interval Summary Free Text/Dictation K and mag stable, no chest pain Exam/Review of Systems Vital Signs Vitals Vital Signs Date Time Temp Pulse Resp B/P Pulse Ox O2 Delivery O2 Flow Rate FiO2 11/12/16 16:21 108 11/12/16 15:57 98.4 18 98/57 99 Intake and Output 11/11/16 11/11/16 11/12/16 15:00 23:00 07:00 Intake Total 600 ml 550 ml Output Total 875 ml 200 ml 900 ml Balance -875 ml 400 ml -350 ml Results Result Diagram: 11/12/16 0628 11/12/16 0628 Results 24 hrs Laboratory Tests Test 11/12/16 06:28 White Blood Count 6.0 Red Blood Count 3.01 L Hemoglobin 9.4 L Hematocrit 27.9 L Mean Corpuscular Volume 92.7 Mean Corpuscular Hemoglobin 31.2 Mean Corpuscular Hemoglobin Concent 33.7 Red Cell Distribution Width 13.8 Platelet Count 258 Mean Platelet Volume 9.9 Neutrophils % 73.7 Lymphocytes % 9.0 L Monocytes % 6.5 Eosinophils % 9.7 H Basophils % 0.3 Nucleated Red Blood Cells % 0.0 Neutrophils # 4.4 Lymphocytes # 0.5 L Monocytes # 0.4 Eosinophils # 0.6 H Basophils # 0.0 Nucleated Red Blood Cells # 0.0 Sodium Level 138 Potassium Level 3.6 Chloride Level 105 Carbon Dioxide Level 26 Anion Gap 11 Blood Urea Nitrogen 15 Creatinine 0.61 Glucose Level 84 Calcium Level 8.1 L Medications Medications Current Medications Ondansetron HCl (Zofran Inj) 4 mg Q6H PRN IV NAUSEA AND/OR VOMITING; Start at 23:30 Morphine Sulfate (morphine) 4 mg Q6 PRN IV PAIN LEVEL 7-10 Last administered on 11/09/16 18:21; Admin Dose 4 MG; Start 10/26/16 at 23:45 IV Flush 10 ml 10 ml PRN PRN IV FLUSH LINE; Start 10/27/16 at 19:30 Sodium Chloride (NS) 1,000 ml @ 125 mls/hr Q8H IV Last administered on 05:20; Admin Dose 125 MLS/HR; Start 11/04/16 at 11:00 Potassium Chloride (Klor-Con 20) 40 meq BID PO Last administered on 11/12/16 16 :36; Admin Dose 40 MEQ; Start 11/08/16 at 11:30 Acetaminophen (Tylenol Tab) 650 mg Q4H PRN PO PAIN AND OR ELEVATED TEMP Last administered on 11/11/16 23:35; Admin Dose 650 MG; Start 11/08/16 at 18:00 Midodrine 2.5 mg 2.5 mg BID@09,17 PRN PO SBP <90 Last administered on 17:25; Admin Dose 2.5 MG; Start 11/09/16 at 12:00 Oxacillin Sodium/ Sodium Chloride (Oxacillin/NS) 50 ml @ 100 mls/hr Q6 IVPB Last administered on 11/12/16 12:55; Admin Dose 100 MLS/HR; Start 11/11/16 at 14: 00 ROHAN VELÁZQUEZ MD November 12, 2016 18:59
[2016-11-12] MEDS: morphine 4 MG/ML VIAL IV PRN (19:44)
[2016-11-13] VITALS (12 sets, daily range): BP systolic 85–110; BP diastolic 51–80; PULSE 84–106; RESP 18–19
[2016-11-13] MEDS: morphine 4 MG/ML VIAL IV PRN ×2 (00:11→19:45)
[2016-11-13] MEDS: SOD CHLORIDE 0.9% 1,000 ML IV SCH ×4 (02:25→22:59)
[2016-11-13] MEDS: OXACILLIN 2 GM in SOD CHLORIDE 0.9% 50 ML IVPB SCH ×5 (06:42→17:30)
[2016-11-13 08:01] LABS: ADD SCAN DIFF NO
[2016-11-13 08:03] LABS: BASOPHILS % 0.5 % (0.0-2.0); EOSINOPHILS # 0.8 10^3/ul (0.0-0.5); EOSINOPHILS % 12.3 % (0.0-7.0); HEMATOCRIT 30.7 % (37.0-47.0); HEMOGLOBIN 9.9 g/dl (12.0-16.0); LYMPHOCYTES # 0.7 10^3/ul (0.8-2.9); LYMPHOCYTES % 10.9 % (15.0-51.0); MEAN CORPUSCULAR HEMOGLOBIN 30.7 pg (29.0-33.0); MEAN CORPUSCULAR HGB CONC 32.2 g/dl (32.0-37.0); MONOCYTE # 0.4 10^3/ul (0.3-0.9); MONOCYTES % 6.6 % (0.0-11.0); NEUTROPHIL # 4.4 10^3/ul (1.6-7.5); NEUTROPHILS % 68.5 % (39.0-77.0); PLATELET COUNT 310 10^3/UL (140-415); RED BLOOD COUNT 3.23 10^6/ul (4.20-5.40); WHITE BLOOD COUNT 6.5 10^3/ul (4.8-10.8)
[2016-11-13 08:34] LABS: CREATININE 0.67 mg/dl (0.44-1.00)
[2016-11-13 08:35] LABS: CALCIUM 8.7 mg/dl (8.4-10.2)
[2016-11-13] MEDS: POTASSIUM CHLORIDE (SR) 20 MEQ TAB PO SCH ×2 (09:00→21:00)
--- NOTE | 2016-11-13 15:38 | CONS ---
DATE OF ADMISSION: 10/26/2016 DATE OF CONSULTATION: 11/13/2016 VASCULAR SURGERY CONSULTATION Dear Doctors, Ms. Martin is a 41-year-old female with a plethora of medical conditions. The patient has had a hist ory of Hirschsprung disease in which the patient had required extensive hospitalization over the cou rse of many years and is having need for central access. The patient has had poor IV access and mul tiple central catheters placed in the past. Of note, the patient has had a history of right Port-A- Catheter that had been removed some time ago. Otherwise, the patient has had that port for over a y ear. The patient also has had access history of a left subclavian vein, and she has surgical scars on her upper chest area. The patient also has had access in her lower extremities as well. At the moment, the patient denies shortness of breath, chest pain, nausea, vomiting, fever, or chills. REVIEW OF SYSTEMS: A 12-point review performed and negative except what is mentioned in the HPI. PAST MEDICAL HISTORY: Entails Hirschsprung disease, chronic pain, low iron, anemia of chronic disea se. PAST SURGICAL HISTORY: Multiple abdominal surgeries for Hirschsprung disease, multiple port cathete r placements for central access. FAMILY HISTORY: Hypertension. SOCIAL HISTORY: Denies tobacco, alcohol, or illicit drug use. PHYSICAL EXAMINATION: GENERAL: Alert and oriented x3, no apparent distress. HEENT: Normocephalic, atraumatic. EOMI. Mucosa moist. NECK: Supple. No carotid bruit. PULMONARY: Clear to auscultation bilaterally. No crackles. ABDOMEN: Soft, nontender, nondistended. Bowel sounds positive. EXTREMITIES: RIGHT LOWER EXTREMITIES: Palpable femoral pulse, nonpalpable pedal pulse. Motor, sensory intact. Cap refill 2 to 3 seconds, multiple areas of central access in the past. LEFT LOWER EXTREMITIES: Palpable femoral pulse, nonpalpable pedal pulse. Motor, sensory intact. SKIN: Presence of multiple surgical scars that have been well healed of the lower extremities as we ll. ASSESSMENT AND PLAN: Central occlusion: It seems that the patient has had longstanding history of central access cathete rs placed. However, I am concerned the patient likely has a central occlusion and will likely requi re bilateral upper extremity venogram verses possible central venogram to better ascertain her avail ability for placing a central stent. At the moment, we will plan to schedule the patient for this p lacement tomorrow. Continue with vascular optimization (BP meds, diet, nutrition, exercise, sugar control, antiplatelet ). Discussed findings, plan, and management with the patient, and she understands. Thank you for allowing us to partake in the care of your patient. Please call with any questions. Dictated By: WILIAN LONGORIA/CRISTINA Conf#: [id number] DID#: [id number]
--- NOTE | 2016-11-13 15:59 | CONS ---
Date/Time of Note Date/Time of Note DATE: 11/13/16 TIME: 15:57 Assessment/Plan Assessment/Plan Additional Assessment/Plan Sinus tachycardia Bacteremia Possible ileus Hirschsprung disease Preserved ejection fraction Electrolyte abnormalities -Patient with heart rate ranging from 80s-110. Remains asymptomatic. Infectious treatment as per infectious disease. No new cardiac orders at the current time. Consultation Date/Type/Reason Admit Date/Time Oct 26, 2016 at 20:25 Initial Consult Date 11/09/16 Type of Consultation: cv Referring Provider: CARLOS RODRIGUEZ MD 24 HR Interval Summary Free Text/Dictation Denies shortness of breath, palpitations or dizziness Exam/Review of Systems Vital Signs Vitals Vital Signs Date Time Temp Pulse Resp B/P Pulse Ox O2 Delivery O2 Flow Rate FiO2 11/13/16 15:50 98.6 89 19 85/60 91 Intake and Output 11/12/16 11/12/16 11/13/16 15:00 23:00 07:00 Intake Total 360 ml Output Total 750 ml Balance -390 ml Exam No apparent distress Constitutional: alert, frail, oriented Head: normocephalic Respiratory: clear to auscultation, normal air movement Cardiovascular: other (S1-S2 heard), regular rate and rhythm Gastrointestinal: bowel sounds, non-tender, soft Extremities: other (No edema) Results Result Diagram: 11/13/16 0651 11/13/16 0651 Results 24 hrs Laboratory Tests Test 11/13/16 06:51 White Blood Count 6.5 Red Blood Count 3.23 L Hemoglobin 9.9 L Hematocrit 30.7 L Mean Corpuscular Volume 95.0 Mean Corpuscular Hemoglobin 30.7 Mean Corpuscular Hemoglobin Concent 32.2 Red Cell Distribution Width 14.0 Platelet Count 310 # Mean Platelet Volume 10.0 Neutrophils % 68.5 Lymphocytes % 10.9 L Monocytes % 6.6 Eosinophils % 12.3 H Basophils % 0.5 Nucleated Red Blood Cells % 0.0 Neutrophils # 4.4 Lymphocytes # 0.7 L Monocytes # 0.4 Eosinophils # 0.8 H Basophils # 0.0 Nucleated Red Blood Cells # 0.0 Sodium Level 142 Potassium Level 4.0 Chloride Level 106 Carbon Dioxide Level 27 Anion Gap 13 Blood Urea Nitrogen 13 Creatinine 0.67 Glucose Level 106 Calcium Level 8.7 Medications Medications Current Medications Ondansetron HCl (Zofran Inj) 4 mg Q6H PRN IV NAUSEA AND/OR VOMITING; Start at 23:30 Morphine Sulfate (morphine) 4 mg Q6 PRN IV PAIN LEVEL 7-10 Last administered on 11/13/16 00:11; Admin Dose 4 MG; Start 10/26/16 at 23:45 IV Flush 10 ml 10 ml PRN PRN IV FLUSH LINE; Start 10/27/16 at 19:30 Sodium Chloride (NS) 1,000 ml @ 125 mls/hr Q8H IV Last administered on 12:16; Admin Dose 125 MLS/HR; Start 11/04/16 at 11:00 Acetaminophen (Tylenol Tab) 650 mg Q4H PRN PO PAIN AND OR ELEVATED TEMP Last administered on 11/11/16 23:35; Admin Dose 650 MG; Start 11/08/16 at 18:00 Midodrine 2.5 mg 2.5 mg BID@09,17 PRN PO SBP <90 Last administered on 17:25; Admin Dose 2.5 MG; Start 11/09/16 at 12:00 Oxacillin Sodium/ Sodium Chloride (Oxacillin/NS) 50 ml @ 100 mls/hr Q6 IVPB Last administered on 11/13/16 12:16; Admin Dose 100 MLS/HR; Start 11/11/16 at 14: 00 Potassium Chloride (Klor-Con 20) 20 meq BID PO ; Start 11/13/16 at 21:00 Marcelino Waggoner DO November 13, 2016 15:59
--- NOTE | 2016-11-13 17:10 | CONS ---
Date/Time of Note Date/Time of Note DATE: 11/13/16 TIME: 17:09 Assessment/Plan Assessment/Plan Additional Assessment/Plan 1. Severe hypokalemia with a potassium of 2.6 on admission. The patient's potassium has been fluctuating from hypokalemia to hyperkalemia depending on the potassium replacement. 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 Severe hyponatremia, sodium 116 on admission.-now improved 3. Acute kidney injury with a creatinine 2.5 on admission secondary to prerenal azotemia causing ischemic acute tubular necrosis.-now improved 4. History of colectomy with right-sided ileostomy. 5. History of Hirschsprung disease, status post multiple abdominal surgeries as per the patient. PO decrease KCl to 20MEQ BID mag stable will follow up Consultation Date/Type/Reason Admit Date/Time Oct 26, 2016 at 20:25 Initial Consult Date October Type of Consultation: NEPHROLOGY Referring Provider: CARLOS RODRIGUEZ MD 24 HR Interval Summary Free Text/Dictation electrolytes stable ,K high normal Exam/Review of Systems Vital Signs Vitals Vital Signs Date Time Temp Pulse Resp B/P Pulse Ox O2 Delivery O2 Flow Rate FiO2 11/13/16 16:15 101 11/13/16 15:50 98.6 19 85/60 91 Intake and Output 11/12/16 11/12/16 11/13/16 15:00 23:00 07:00 Intake Total 360 ml Output Total 750 ml Balance -390 ml Results Result Diagram: 11/13/16 0651 11/13/16 0651 Results 24 hrs Laboratory Tests Test 11/13/16 06:51 White Blood Count 6.5 Red Blood Count 3.23 L Hemoglobin 9.9 L Hematocrit 30.7 L Mean Corpuscular Volume 95.0 Mean Corpuscular Hemoglobin 30.7 Mean Corpuscular Hemoglobin Concent 32.2 Red Cell Distribution Width 14.0 Platelet Count 310 # Mean Platelet Volume 10.0 Neutrophils % 68.5 Lymphocytes % 10.9 L Monocytes % 6.6 Eosinophils % 12.3 H Basophils % 0.5 Nucleated Red Blood Cells % 0.0 Neutrophils # 4.4 Lymphocytes # 0.7 L Monocytes # 0.4 Eosinophils # 0.8 H Basophils # 0.0 Nucleated Red Blood Cells # 0.0 Sodium Level 142 Potassium Level 4.0 Chloride Level 106 Carbon Dioxide Level 27 Anion Gap 13 Blood Urea Nitrogen 13 Creatinine 0.67 Glucose Level 106 Calcium Level 8.7 Medications Medications Current Medications Ondansetron HCl (Zofran Inj) 4 mg Q6H PRN IV NAUSEA AND/OR VOMITING; Start at 23:30 Morphine Sulfate (morphine) 4 mg Q6 PRN IV PAIN LEVEL 7-10 Last administered on 11/13/16 00:11; Admin Dose 4 MG; Start 10/26/16 at 23:45 IV Flush 10 ml 10 ml PRN PRN IV FLUSH LINE; Start 10/27/16 at 19:30 Sodium Chloride (NS) 1,000 ml @ 125 mls/hr Q8H IV Last administered on 12:16; Admin Dose 125 MLS/HR; Start 11/04/16 at 11:00 Acetaminophen (Tylenol Tab) 650 mg Q4H PRN PO PAIN AND OR ELEVATED TEMP Last administered on 11/11/16 23:35; Admin Dose 650 MG; Start 11/08/16 at 18:00 Midodrine 2.5 mg 2.5 mg BID@09,17 PRN PO SBP <90 Last administered on 17:25; Admin Dose 2.5 MG; Start 11/09/16 at 12:00 Oxacillin Sodium/ Sodium Chloride (Oxacillin/NS) 50 ml @ 100 mls/hr Q6 IVPB Last administered on 11/13/16 12:16; Admin Dose 100 MLS/HR; Start 11/11/16 at 14: 00 Potassium Chloride (Klor-Con 20) 20 meq BID PO ; Start 11/13/16 at 21:00 ROHAN VELÁZQUEZ MD November 13, 2016 17:10
--- NOTE | 2016-11-13 17:10 | CONS ---
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 Transesophageal echo was negative for valvular vegetation - extensive catheterization and a concern of thrombosis leading to septic thrombophlebitis - persistent hypotension - h/o infected portacath, s/p removal in 2015 - possible small bowel obstruction, resolved. - acute kidney injury, resolved - Hirschsprung's disease, status post colectomy/ileostomy. - MRSA colonization, on mupirocin recommendations - continue IV oxacillin (11/11/2016). I recommend minimal two weeks. management d/w Pt Problems: Consultation Date/Type/Reason Admit Date/Time Oct 26, 2016 at 20:25 Initial Consult Date 11/09/16 Type of Consultation: ID Referring Provider: CARLOS RODRIGUEZ MD 24 HR Interval Summary Free Text/Dictation TRES was negative Constitutional: no complaints Detailed Summary Eyes: no complaints ENT: no complaints Respiratory: no complaints Cardiovascular: no complaints Gastrointestinal: other (+ostomy) Genitourinary: no complaints Musculoskeletal: no complaints Skin: no complaints Neurologic: no complaints Exam/Review of Systems Vital Signs Vitals Vital Signs Date Time Temp Pulse Resp B/P Pulse Ox O2 Delivery O2 Flow Rate FiO2 11/13/16 16:15 101 11/13/16 15:50 98.6 19 85/60 91 Intake and Output 11/12/16 11/12/16 11/13/16 15:00 23:00 07:00 Intake Total 360 ml Output Total 750 ml Balance -390 ml Exam Psych: nl mood/affect, no complaints Head: atraumatic, normocephalic Eyes: nl conjunctiva, nl lids ENMT: nl external ears & nose, nl nasal mucosa & septum Neck: supple Respiratory: clear to auscultation, normal air movement Cardiovascular: nl pulses, regular rate and rhythm Gastrointestinal: other (+ostomy), soft Musculoskeletal: nl extremities to inspection Extremities: No edema 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: MOLD DRESSER II-XII intact, nl mental status, nl speech Skin: nl turgor Results Result Diagram: 11/13/16 0651 11/13/16 0651 Results 24 hrs Laboratory Tests Test 11/13/16 06:51 White Blood Count 6.5 Red Blood Count 3.23 L Hemoglobin 9.9 L Hematocrit 30.7 L Mean Corpuscular Volume 95.0 Mean Corpuscular Hemoglobin 30.7 Mean Corpuscular Hemoglobin Concent 32.2 Red Cell Distribution Width 14.0 Platelet Count 310 # Mean Platelet Volume 10.0 Neutrophils % 68.5 Lymphocytes % 10.9 L Monocytes % 6.6 Eosinophils % 12.3 H Basophils % 0.5 Nucleated Red Blood Cells % 0.0 Neutrophils # 4.4 Lymphocytes # 0.7 L Monocytes # 0.4 Eosinophils # 0.8 H Basophils # 0.0 Nucleated Red Blood Cells # 0.0 Sodium Level 142 Potassium Level 4.0 Chloride Level 106 Carbon Dioxide Level 27 Anion Gap 13 Blood Urea Nitrogen 13 Creatinine 0.67 Glucose Level 106 Calcium Level 8.7 Medications Medications Current Medications Ondansetron HCl (Zofran Inj) 4 mg Q6H PRN IV NAUSEA AND/OR VOMITING; Start at 23:30 Morphine Sulfate (morphine) 4 mg Q6 PRN IV PAIN LEVEL 7-10 Last administered on 11/13/16 00:11; Admin Dose 4 MG; Start 10/26/16 at 23:45 IV Flush 10 ml 10 ml PRN PRN IV FLUSH LINE; Start 10/27/16 at 19:30 Sodium Chloride (NS) 1,000 ml @ 125 mls/hr Q8H IV Last administered on 12:16; Admin Dose 125 MLS/HR; Start 11/04/16 at 11:00 Acetaminophen (Tylenol Tab) 650 mg Q4H PRN PO PAIN AND OR ELEVATED TEMP Last administered on 11/11/16 23:35; Admin Dose 650 MG; Start 11/08/16 at 18:00 Midodrine 2.5 mg 2.5 mg BID@09,17 PRN PO SBP <90 Last administered on 17:25; Admin Dose 2.5 MG; Start 11/09/16 at 12:00 Oxacillin Sodium/ Sodium Chloride (Oxacillin/NS) 50 ml @ 100 mls/hr Q6 IVPB Last administered on 11/13/16 12:16; Admin Dose 100 MLS/HR; Start 11/11/16 at 14: 00 Potassium Chloride (Klor-Con 20) 20 meq BID PO ; Start 11/13/16 at 21:00 TAWANDA FINK M.D. November 13, 2016 17:10
--- NOTE | 2016-11-13 17:46 | PN ---
Date/Time of Note Date/Time of Note DATE: 11/13/16 TIME: 17:44 Assessment/Plan VTE Prophylaxis VTE Prophylaxis Intervention: SCD's Lines/Catheters IV C[facility]ter Type [facility]from [facility] Peripheral IV Urinary Cath still in place: No Assessment/Plan Chief Complaint/Hosp Course ASSESSMENT AND PLAN: - [place] bacteremia. Dr Bushra foster is following in ID consultation. Continue antibiotics per ID. TRES is negative for vegetation. - Sinus tachycardia, Dr. Barrett is following and cardiology consultation. - Possible small bowel obstruction, resolved. - Acute kidney injury, resolved - Severe hyperkalemia on admission, patient potassium has been fluctuating from hyperkalemia to hypokalemia. Dr Spain is following pt in nephrology consultation. - Hyponatremia, continue IV fluids monitor electrolytes. 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 - Vascular access, Dr. Raymond is following in vascular surgery consultation , plan for permacath placement tomorrow. Further recommendations based on clinical course. Plan of care discussed with Dr. Paez. Problems: Subjective 24 Hr Interval Summary Free Text/Dictation Patient remains afebrile, pending permacath placement tomorrow. Exam/Review of Systems Vital Signs Vitals Vital Signs Date Time Temp Pulse Resp B/P Pulse Ox O2 Delivery O2 Flow Rate FiO2 11/13/16 16:15 101 11/13/16 15:50 98.6 19 85/60 91 Intake and Output 11/12/16 11/12/16 11/13/16 15:00 23:00 07:00 Intake Total 360 ml Output Total 750 ml Balance -390 ml Exam Constitutional: alert, oriented Psych: no complaints Head: atraumatic, normocephalic Eyes: nl conjunctiva ENMT: nl external ears & nose Neck: non-tender, supple Respiratory: clear to auscultation, normal air movement Cardiovascular: nl pulses, regular rate and rhythm Gastrointestinal: non-tender, other (Ileostomy), soft Musculoskeletal: nl extremities to inspection Extremities: normal pulses 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: MICROFICHE DUPLICATOR II-XII intact Results Result Diagram: 11/13/16 0651 11/13/16 0651 Results 24 hrs Laboratory Tests Test 11/13/16 06:51 White Blood Count 6.5 Red Blood Count 3.23 L Hemoglobin 9.9 L Hematocrit 30.7 L Mean Corpuscular Volume 95.0 Mean Corpuscular Hemoglobin 30.7 Mean Corpuscular Hemoglobin Concent 32.2 Red Cell Distribution Width 14.0 Platelet Count 310 # Mean Platelet Volume 10.0 Neutrophils % 68.5 Lymphocytes % 10.9 L Monocytes % 6.6 Eosinophils % 12.3 H Basophils % 0.5 Nucleated Red Blood Cells % 0.0 Neutrophils # 4.4 Lymphocytes # 0.7 L Monocytes # 0.4 Eosinophils # 0.8 H Basophils # 0.0 Nucleated Red Blood Cells # 0.0 Sodium Level 142 Potassium Level 4.0 Chloride Level 106 Carbon Dioxide Level 27 Anion Gap 13 Blood Urea Nitrogen 13 Creatinine 0.67 Glucose Level 106 Calcium Level 8.7 Medications Medications Current Medications Ondansetron HCl (Zofran Inj) 4 mg Q6H PRN IV NAUSEA AND/OR VOMITING; Start at 23:30 Morphine Sulfate (morphine) 4 mg Q6 PRN IV PAIN LEVEL 7-10 Last administered on 11/13/16 00:11; Admin Dose 4 MG; Start 10/26/16 at 23:45 IV Flush 10 ml 10 ml PRN PRN IV FLUSH LINE; Start 10/27/16 at 19:30 Sodium Chloride (NS) 1,000 ml @ 125 mls/hr Q8H IV Last administered on 12:16; Admin Dose 125 MLS/HR; Start 11/04/16 at 11:00 Acetaminophen (Tylenol Tab) 650 mg Q4H PRN PO PAIN AND OR ELEVATED TEMP Last administered on 11/11/16 23:35; Admin Dose 650 MG; Start 11/08/16 at 18:00 Midodrine 2.5 mg 2.5 mg BID@09,17 PRN PO SBP <90 Last administered on 17:25; Admin Dose 2.5 MG; Start 11/09/16 at 12:00 Oxacillin Sodium/ Sodium Chloride (Oxacillin/NS) 50 ml @ 100 mls/hr Q6 IVPB Last administered on 11/13/16 17:30; Admin Dose 100 MLS/HR; Start 11/11/16 at 14: 00 Potassium Chloride (Klor-Con 20) 20 meq BID PO ; Start 11/13/16 at 21:00 ROMI ESPINO November 13, 2016 17:46
[2016-11-14] VITALS (7 sets, daily range): BP systolic 95–116; BP diastolic 51–70; PULSE 74–112; RESP 18–19
[2016-11-14] MEDS: OXACILLIN 2 GM in SOD CHLORIDE 0.9% 50 ML IVPB SCH ×4 (00:35→18:00)
[2016-11-14] MEDS: morphine 4 MG/ML VIAL IV PRN (00:35)
[2016-11-14] MEDS: SOD CHLORIDE 0.9% 1,000 ML IV SCH ×4 (07:30→22:59)
[2016-11-14 08:50] LABS: POTASSIUM 3.8 mmol/L (3.5-5.1)
[2016-11-14 08:52] LABS: CREATININE 0.68 mg/dl (0.44-1.00)
[2016-11-14 08:53] LABS: CALCIUM 8.5 mg/dl (8.4-10.2)
[2016-11-14] MEDS: POTASSIUM CHLORIDE (SR) 20 MEQ TAB PO SCH ×2 (09:00→21:20)
--- NOTE | 2016-11-14 16:54 | CONS ---
Date/Time of Note Date/Time of Note DATE: 11/14/16 TIME: 16:52 Assessment/Plan Assessment/Plan Additional Assessment/Plan Sinus tachycardia Bacteremia Possible ileus Hirschsprung disease Preserved ejection fraction Electrolyte abnormalities -Patient continues to deny any palpitations, shortness of breath or chest pain. Infectious treatment as per infectious disease. No new cardiac orders at the current time. Consultation Date/Type/Reason Admit Date/Time Oct 26, 2016 at 20:25 Initial Consult Date 11/09/16 Type of Consultation: cv Referring Provider: CARLOS RODRIGUEZ MD 24 HR Interval Summary Free Text/Dictation Denies palpitations, shortness of breath or chest pain Exam/Review of Systems Vital Signs Vitals Vital Signs Date Time Temp Pulse Resp B/P Pulse Ox O2 Delivery O2 Flow Rate FiO2 11/14/16 16:14 74 11/14/16 08:12 98.1 19 116/70 95 Intake and Output 11/13/16 11/13/16 11/14/16 15:00 23:00 07:00 Intake Total 300 ml Balance 300 ml Exam No apparent distress Constitutional: alert, frail, oriented Head: normocephalic Respiratory: other (Coarse breath sounds bilaterally, no wheezing) Cardiovascular: other (S1-S2 heard), regular rate and rhythm Gastrointestinal: bowel sounds, non-tender, soft Extremities: other (No edema) Results Result Diagram: 11/13/16 0651 11/14/16 0740 Results 24 hrs Laboratory Tests Test 11/14/16 07:40 Sodium Level 141 Potassium Level 3.8 Chloride Level 103 Carbon Dioxide Level 27 Anion Gap 15 Blood Urea Nitrogen 16 Creatinine 0.68 Glucose Level 120 Calcium Level 8.5 Medications Medications Current Medications Ondansetron HCl (Zofran Inj) 4 mg Q6H PRN IV NAUSEA AND/OR VOMITING; Start at 23:30 Morphine Sulfate (morphine) 4 mg Q6 PRN IV PAIN LEVEL 7-10 Last administered on 11/14/16 00:35; Admin Dose 4 MG; Start 10/26/16 at 23:45 IV Flush 10 ml 10 ml PRN PRN IV FLUSH LINE; Start 10/27/16 at 19:30 Sodium Chloride (NS) 1,000 ml @ 125 mls/hr Q8H IV Last administered on 5/4/ 17at 07:30; Admin Dose 125 MLS/HR; Start 11/04/16 at 11:00 Acetaminophen (Tylenol Tab) 650 mg Q4H PRN PO PAIN AND OR ELEVATED TEMP Last administered on 11/11/16 23:35; Admin Dose 650 MG; Start 11/08/16 at 18:00 Midodrine 2.5 mg 2.5 mg BID@09,17 PRN PO SBP <90 Last administered on 17:25; Admin Dose 2.5 MG; Start 11/09/16 at 12:00 Oxacillin Sodium/ Sodium Chloride (Oxacillin/NS) 50 ml @ 100 mls/hr Q6 IVPB Last administered on 11/14/16 06:00; Admin Dose 100 MLS/HR; Start 11/11/16 at 14: 00 Potassium Chloride (Klor-Con 20) 20 meq BID PO Last administered on 11/13/16 21 :00; Admin Dose 20 MEQ; Start 11/13/16 at 21:00 Marcelino Waggoner DO November 14, 2016 16:54
--- NOTE | 2016-11-14 17:41 | PN ---
Date/Time of Note Date/Time of Note DATE: 11/14/16 TIME: 17:40 Assessment/Plan VTE Prophylaxis VTE Prophylaxis Intervention: SCD's Lines/Catheters IV Catheter Type (from [facility]): Peripheral IV Urinary Cath still in place: No Assessment/Plan Chief Complaint/Hosp Course ASSESSMENT AND PLAN: - [place] bacteremia. Dr Bushra foster is following in ID consultation. Continue antibiotics per ID. TRES is negative for vegetation. - Sinus tachycardia, Dr. Barrett is following and cardiology consultation. - Possible small bowel obstruction, resolved. - Acute kidney injury, resolved - Severe hyperkalemia on admission, patient potassium has been fluctuating from hyperkalemia to hypokalemia. Dr Spain is following pt in nephrology consultation. - Hyponatremia, continue IV fluids monitor electrolytes. 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 - Vascular access, Dr. Raymond is following in vascular surgery consultation , plan for permacath placement tomorrow. Further recommendations based on clinical course. Plan of care discussed with Dr. Paez. Problems: Subjective 24 Hr Interval Summary Free Text/Dictation Patient remains afebrile, occasional tachycardia. Exam/Review of Systems Vital Signs Vitals Vital Signs Date Time Temp Pulse Resp B/P Pulse Ox O2 Delivery O2 Flow Rate FiO2 11/14/16 16:14 74 11/14/16 08:12 98.1 19 116/70 95 Intake and Output 11/13/16 11/13/16 11/14/16 15:00 23:00 07:00 Intake Total 300 ml Balance 300 ml Exam Constitutional: alert, oriented Psych: no complaints Head: atraumatic, normocephalic Eyes: nl conjunctiva ENMT: nl external ears & nose Neck: non-tender, supple Respiratory: clear to auscultation, normal air movement Cardiovascular: nl pulses, regular rate and rhythm Gastrointestinal: non-tender, other (Ileostomy), soft Musculoskeletal: nl extremities to inspection Extremities: normal pulses 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: OPERATIONS INTERN II-XII intact Results Result Diagram: 11/13/16 0651 11/14/16 0740 Results 24 hrs Laboratory Tests Test 11/14/16 07:40 Sodium Level 141 Potassium Level 3.8 Chloride Level 103 Carbon Dioxide Level 27 Anion Gap 15 Blood Urea Nitrogen 16 Creatinine 0.68 Glucose Level 120 Calcium Level 8.5 Medications Medications Current Medications Ondansetron HCl (Zofran Inj) 4 mg Q6H PRN IV NAUSEA AND/OR VOMITING; Start at 23:30 Morphine Sulfate (morphine) 4 mg Q6 PRN IV PAIN LEVEL 7-10 Last administered on 11/14/16 00:35; Admin Dose 4 MG; Start 10/26/16 at 23:45 IV Flush 10 ml 10 ml PRN PRN IV FLUSH LINE; Start 10/27/16 at 19:30 Sodium Chloride (NS) 1,000 ml @ 125 mls/hr Q8H IV Last administered on 07:30; Admin Dose 125 MLS/HR; Start 11/04/16 at 11:00 Acetaminophen (Tylenol Tab) 650 mg Q4H PRN PO PAIN AND OR ELEVATED TEMP Last administered on 11/11/16 23:35; Admin Dose 650 MG; Start 11/08/16 at 18:00 Midodrine 2.5 mg 2.5 mg BID@09,17 PRN PO SBP <90 Last administered on 17:25; Admin Dose 2.5 MG; Start 11/09/16 at 12:00 Oxacillin Sodium/ Sodium Chloride (Oxacillin/NS) 50 ml @ 100 mls/hr Q6 IVPB Last administered on 11/14/16 06:00; Admin Dose 100 MLS/HR; Start 11/11/16 at 14: 00 Potassium Chloride (Klor-Con 20) 20 meq BID PO Last administered on 11/13/16 21 :00; Admin Dose 20 MEQ; Start 11/13/16 at 21:00 ROMI ESPINO November 14, 2016 17:41
--- NOTE | 2016-11-14 18:19 | CONS ---
Date/Time of Note Date/Time of Note DATE: 11/14/16 TIME: 18:18 Assessment/Plan Assessment/Plan Additional Assessment/Plan 1. Severe hypokalemia with a potassium of 2.6 on admission. The patient's potassium has been fluctuating from hypokalemia to hyperkalemia depending on the potassium replacement. 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 Severe hyponatremia, sodium 116 on admission.-now improved 3. Acute kidney injury with a creatinine 2.5 on admission secondary to prerenal azotemia causing ischemic acute tubular necrosis.-now improved 4. History of colectomy with right-sided ileostomy. 5. History of Hirschsprung disease, status post multiple abdominal surgeries as per the patient. PO decreased KCl to 20MEQ BID yesterday mag stable will follow up Consultation Date/Type/Reason Admit Date/Time Oct 26, 2016 at 20:25 Initial Consult Date October Type of Consultation: NEPHROLOG y Referring Provider: CARLOS RODRIGUEZ MD 24 HR Interval Summary Free Text/Dictation K 3.8, Cr better Exam/Review of Systems Vital Signs Vitals Vital Signs Date Time Temp Pulse Resp B/P Pulse Ox O2 Delivery O2 Flow Rate FiO2 11/14/16 16:14 74 11/14/16 08:12 98.1 19 116/70 95 Intake and Output 11/13/16 11/13/16 11/14/16 15:00 23:00 07:00 Intake Total 300 ml Balance 300 ml Exam No apparent distress Constitutional: alert, frail, oriented Head: normocephalic Respiratory: other (Coarse breath sounds bilaterally, no wheezing) Cardiovascular: other (S1-S2 heard), regular rate and rhythm Gastrointestinal: bowel sounds, non-tender, soft Extremities: other (No edema) Results Result Diagram: 11/13/16 0651 11/14/16 0740 Results 24 hrs Laboratory Tests Test 11/14/16 07:40 Sodium Level 141 Potassium Level 3.8 Chloride Level 103 Carbon Dioxide Level 27 Anion Gap 15 Blood Urea Nitrogen 16 Creatinine 0.68 Glucose Level 120 Calcium Level 8.5 Medications Medications Current Medications Ondansetron HCl (Zofran Inj) 4 mg Q6H PRN IV NAUSEA AND/OR VOMITING; Start at 23:30 Morphine Sulfate (morphine) 4 mg Q6 PRN IV PAIN LEVEL 7-10 Last administered on 11/14/16 00:35; Admin Dose 4 MG; Start 10/26/16 at 23:45 IV Flush 10 ml 10 ml PRN PRN IV FLUSH LINE; Start 10/27/16 at 19:30 Sodium Chloride (NS) 1,000 ml @ 125 mls/hr Q8H IV Last administered on 07:30; Admin Dose 125 MLS/HR; Start 11/04/16 at 11:00 Acetaminophen (Tylenol Tab) 650 mg Q4H PRN PO PAIN AND OR ELEVATED TEMP Last administered on 11/11/16 23:35; Admin Dose 650 MG; Start 11/08/16 at 18:00 Midodrine 2.5 mg 2.5 mg BID@09,17 PRN PO SBP <90 Last administered on 17:25; Admin Dose 2.5 MG; Start 11/09/16 at 12:00 Oxacillin Sodium/ Sodium Chloride (Oxacillin/NS) 50 ml @ 100 mls/hr Q6 IVPB Last administered on 11/14/16 06:00; Admin Dose 100 MLS/HR; Start 11/11/16 at 14: 00 Potassium Chloride (Klor-Con 20) 20 meq BID PO Last administered on 11/13/16 21 :00; Admin Dose 20 MEQ; Start 11/13/16 at 21:00 ROHAN VELÁZQUEZ MD November 14, 2016 18:19
--- NOTE | 2016-11-14 20:46 | CONS ---
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 Transesophageal echo was negative for valvular vegetation - extensive catheterization and a concern of thrombosis leading to septic thrombophlebitis - persistent hypotension - h/o infected portacath, s/p removal in 2015 - possible small bowel obstruction, resolved. - acute kidney injury, resolved - Hirschsprung's disease, status post colectomy/ileostomy. - MRSA colonization, on mupirocin recommendations - continue IV oxacillin (11/11/2016). I recommend minimal two weeks. management d/w Pt Problems: Consultation Date/Type/Reason Admit Date/Time Oct 26, 2016 at 20:25 Initial Consult Date 11/09/16 Type of Consultation: ID Referring Provider: CARLOS RODRIGUEZ MD 24 HR Interval Summary Constitutional: no complaints Detailed Summary Eyes: no complaints ENT: no complaints Respiratory: no complaints Cardiovascular: no complaints Gastrointestinal: other (ostomy) Genitourinary: no complaints Musculoskeletal: no complaints Skin: other (dry lips) Exam/Review of Systems Vital Signs Vitals Vital Signs Date Time Temp Pulse Resp B/P Pulse Ox O2 Delivery O2 Flow Rate FiO2 11/14/16 20:00 97.5 98 18 95/54 97 Intake and Output 11/13/16 11/13/16 11/14/16 15:00 23:00 07:00 Intake Total 300 ml Balance 300 ml Exam Constitutional: alert, frail, oriented Psych: nl mood/affect, no complaints Head: atraumatic, normocephalic Eyes: nl conjunctiva, nl lids ENMT: nl external ears & nose, nl lips & teeth, nl nasal mucosa & septum Neck: supple Respiratory: clear to auscultation, normal air movement Cardiovascular: nl pulses, regular rate and rhythm Gastrointestinal: non-tender, other (+ostomy), soft Musculoskeletal: nl extremities to inspection Extremities: normal pulses 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: EDUCATION 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, nl mental status Results Result Diagram: 11/13/16 0651 11/14/16 0740 Results 24 hrs Laboratory Tests Test 11/14/16 07:40 Sodium Level 141 Potassium Level 3.8 Chloride Level 103 Carbon Dioxide Level 27 Anion Gap 15 Blood Urea Nitrogen 16 Creatinine 0.68 Glucose Level 120 Calcium Level 8.5 Medications Medications Current Medications Ondansetron HCl (Zofran Inj) 4 mg Q6H PRN IV NAUSEA AND/OR VOMITING; Start at 23:30 Morphine Sulfate (morphine) 4 mg Q6 PRN IV PAIN LEVEL 7-10 Last administered on 11/14/16 00:35; Admin Dose 4 MG; Start 10/26/16 at 23:45 IV Flush 10 ml 10 ml PRN PRN IV FLUSH LINE; Start 10/27/16 at 19:30 Sodium Chloride (NS) 1,000 ml @ 125 mls/hr Q8H IV Last administered on 07:30; Admin Dose 125 MLS/HR; Start 11/04/16 at 11:00 Acetaminophen (Tylenol Tab) 650 mg Q4H PRN PO PAIN AND OR ELEVATED TEMP Last administered on 11/11/16 23:35; Admin Dose 650 MG; Start 11/08/16 at 18:00 Midodrine 2.5 mg 2.5 mg BID@09,17 PRN PO SBP <90 Last administered on 17:25; Admin Dose 2.5 MG; Start 11/09/16 at 12:00 Oxacillin Sodium/ Sodium Chloride (Oxacillin/NS) 50 ml @ 100 mls/hr Q6 IVPB Last administered on 11/14/16 18:00; Admin Dose 100 MLS/HR; Start 11/11/16 at 14: 00 Potassium Chloride (Klor-Con 20) 20 meq BID PO Last administered on 11/13/16 21 :00; Admin Dose 20 MEQ; Start 11/13/16 at 21:00 TAWANDA FINK M.D. November 14, 2016 20:46
--- NOTE | 2016-11-14 22:43 | PN ---
Date/Time of Note Date/Time of Note DATE: 11/14/16 TIME: 22:43 Assessment/Plan Lines/Catheters IV Catheter Type (from [facility]): Peripheral IV Car in Place (from [facility]): No Exam/Review of Systems Vital Signs Vitals Vital Signs Date Time Temp Pulse Resp B/P Pulse Ox O2 Delivery O2 Flow Rate FiO2 11/14/16 20:00 97.5 98 18 95/54 97 Intake and Output 11/13/16 11/13/16 11/14/16 15:00 23:00 07:00 Intake Total 300 ml Balance 300 ml Results Result Diagram: 11/13/16 0651 11/14/16 0740 WILIAN CARLIN MD November 14, 2016 22:43
[2016-11-15] VITALS (13 sets, daily range): BP systolic 83–131; BP diastolic 42–62; PULSE 93–100; RESP 12–22
[2016-11-15] MEDS: OXACILLIN 2 GM in SOD CHLORIDE 0.9% 50 ML IVPB SCH ×5 (00:20→23:45)
[2016-11-15] MEDS: SOD CHLORIDE 0.9% 1,000 ML IV SCH ×3 (05:56→23:48)
[2016-11-15 07:23] LABS: ADD SCAN DIFF NO
[2016-11-15 07:32] LABS: BASOPHILS % 0.5 % (0.0-2.0); EOSINOPHILS # 0.8 10^3/ul (0.0-0.5); EOSINOPHILS % 10.2 % (0.0-7.0); HEMATOCRIT 35.2 % (37.0-47.0); HEMOGLOBIN 11.6 g/dl (12.0-16.0); LYMPHOCYTES # 0.6 10^3/ul (0.8-2.9); LYMPHOCYTES % 8.5 % (15.0-51.0); MEAN CORPUSCULAR HEMOGLOBIN 31.5 pg (29.0-33.0); MEAN CORPUSCULAR VOLUME 95.7 fl (82.0-101.0); MEAN PLATELET VOLUME 9.7 fl (7.4-10.4); MONOCYTE # 0.4 10^3/ul (0.3-0.9); MONOCYTES % 5.1 % (0.0-11.0); NEUTROPHIL # 5.5 10^3/ul (1.6-7.5); NEUTROPHILS % 74.4 % (39.0-77.0); PLATELET COUNT 380 10^3/UL (140-415); RED BLOOD COUNT 3.68 10^6/ul (4.20-5.40); RED CELL DISTRIBUTION WIDTH 14.2 % (11.5-14.5); WHITE BLOOD COUNT 7.4 10^3/ul (4.8-10.8)
[2016-11-15 07:51] LABS: INR 0.92; PROTIME 12.4 Sec (12.2-14.2)
[2016-11-15 07:52] LABS: THROMBIN TIME 16.7 SEC (13.8-19.1)
[2016-11-15 07:56] LABS: PARTIAL THROMBOPLASTIN TIME 29.7 Sec (25.0-35.0)
[2016-11-15 08:04] LABS: CALCIUM 8.4 mg/dl (8.4-10.2); CREATININE 0.73 mg/dl (0.44-1.00); POTASSIUM 4.3 mmol/L (3.5-5.1)
[2016-11-15] MEDS: POTASSIUM CHLORIDE (SR) 20 MEQ TAB PO SCH ×2 (09:33→21:18)
--- NOTE | 2016-11-15 11:55 | PN ---
Date/Time of Note Date/Time of Note DATE: 11/15/16 TIME: 11:53 Assessment/Plan VTE Prophylaxis VTE Prophylaxis Intervention: SCD's Lines/Catheters IV [facility] Type [facility]from [facility]): Peripheral IV Urinary Cath still in place: No Assessment/Plan Chief Complaint/Hosp Course ASSESSMENT AND PLAN: - [place] bacteremia. Dr Bushra foster is following in ID consultation. Continue antibiotics per ID. TRES is negative for vegetation. - Sinus tachycardia, Dr. Barrett is following and cardiology consultation. - Possible small bowel obstruction, resolved. - Acute kidney injury, resolved - Severe hyperkalemia on admission, patient potassium has been fluctuating from hyperkalemia to hypokalemia. Dr Spain is following pt in nephrology consultation. - Hyponatremia, continue IV fluids monitor electrolytes. 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 - Vascular access, Dr. Raymond is following in vascular surgery consultation , plan for permacath placement by radiology. Further recommendations based on clinical course. Plan of care discussed with Dr. Paez. Problems: Subjective 24 Hr Interval Summary Free Text/Dictation Patient's have borderline hypotension, denies headache fever nausea vomiting. Exam/Review of Systems Vital Signs Vitals Vital Signs Date Time Temp Pulse Resp B/P Pulse Ox O2 Delivery O2 Flow Rate FiO2 11/15/16 07:57 98.8 82 16 95/62 99 Intake and Output 11/14/16 11/14/16 11/15/16 15:00 23:00 07:00 Intake Total 800 ml 1100 ml Output Total 500 ml Balance 300 ml 1100 ml Exam Constitutional: alert, oriented Psych: no complaints Head: atraumatic, normocephalic Eyes: nl conjunctiva ENMT: nl external ears & nose Neck: non-tender, supple Respiratory: clear to auscultation, normal air movement Cardiovascular: nl pulses, regular rate and rhythm Gastrointestinal: non-tender, other (Ileostomy), soft Musculoskeletal: nl extremities to inspection Extremities: normal pulses 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: WOOD BLOCK ARTIST II-XII intact Results Result Diagram: 11/15/16 0630 11/15/16 0630 Results 24 hrs Laboratory Tests Test 11/15/16 06:30 White Blood Count 7.4 Red Blood Count 3.68 L Hemoglobin 11.6 L Hematocrit 35.2 L Mean Corpuscular Volume 95.7 Mean Corpuscular Hemoglobin 31.5 Mean Corpuscular Hemoglobin Concent 33.0 Red Cell Distribution Width 14.2 Platelet Count 380 Mean Platelet Volume 9.7 Neutrophils % 74.4 Lymphocytes % 8.5 L Monocytes % 5.1 Eosinophils % 10.2 H Basophils % 0.5 Nucleated Red Blood Cells % 0.0 Neutrophils # 5.5 Lymphocytes # 0.6 L Monocytes # 0.4 Eosinophils # 0.8 H Basophils # 0.0 Nucleated Red Blood Cells # 0.0 Prothrombin Time 12.4 Prothrombin Time Ratio 1.0 INR International Normalized Ratio 0.92 Activated Partial Thromboplast Time 29.7 Thrombin Time 16.7 Sodium Level 141 Potassium Level 4.3 Chloride Level 107 Carbon Dioxide Level 26 Anion Gap 12 Blood Urea Nitrogen 16 Creatinine 0.73 Glucose Level 78 # Calcium Level 8.4 Medications Medications Current Medications Ondansetron HCl (Zofran Inj) 4 mg Q6H PRN IV NAUSEA AND/OR VOMITING; Start at 23:30 Morphine Sulfate (morphine) 4 mg Q6 PRN IV PAIN LEVEL 7-10 Last administered on 11/14/16 00:35; Admin Dose 4 MG; Start 10/26/16 at 23:45 IV Flush 10 ml 10 ml PRN PRN IV FLUSH LINE; Start 10/27/16 at 19:30 Sodium Chloride (NS) 1,000 ml @ 125 mls/hr Q8H IV Last administered on 05:56; Admin Dose 125 MLS/HR; Start 11/04/16 at 11:00 Acetaminophen (Tylenol Tab) 650 mg Q4H PRN PO PAIN AND OR ELEVATED TEMP Last administered on 11/11/16 23:35; Admin Dose 650 MG; Start 11/08/16 at 18:00 Midodrine 2.5 mg 2.5 mg BID@09,17 PRN PO SBP <90 Last administered on 17:25; Admin Dose 2.5 MG; Start 11/09/16 at 12:00 Oxacillin Sodium/ Sodium Chloride (Oxacillin/NS) 50 ml @ 100 mls/hr Q6 IVPB Last administered on 11/15/16 05:55; Admin Dose 100 MLS/HR; Start 5/1/17 at 14: 00 Potassium Chloride (Klor-Con 20) 20 meq BID PO Last administered on 11/15/16t 09 :33; Admin Dose 20 MEQ; Start 11/13/16 at 21:00 ROMI ESPINO November 15, 2016 11:55
--- NOTE | 2016-11-15 12:26 | CONS ---
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 Transesophageal echo was negative for valvular vegetation - extensive catheterization and a concern of thrombosis leading to septic thrombophlebitis - persistent hypotension - h/o infected portacath, s/p removal in 2015 - possible small bowel obstruction, resolved. - acute kidney injury, resolved - Hirschsprung's disease, status post colectomy/ileostomy. - MRSA colonization, on mupirocin recommendations - continue IV oxacillin (11/11/2016). I recommend minimal two weeks. management d/w Pt, her Dr. Waggoner Problems: Consultation Date/Type/Reason Admit Date/Time Oct 26, 2016 at 20:25 Initial Consult Date 11/09/16 Type of Consultation: ID Referring Provider: CARLOS RODRIGUEZ MD 24 HR Interval Summary Constitutional: no complaints Detailed Summary Eyes: no complaints ENT: no complaints Respiratory: no complaints Cardiovascular: no complaints Gastrointestinal: other (ostomy) Genitourinary: no complaints Musculoskeletal: no complaints Skin: no complaints Neurologic: no complaints Exam/Review of Systems Vital Signs Vitals Vital Signs Date Time Temp Pulse Resp B/P Pulse Ox O2 Delivery O2 Flow Rate FiO2 11/15/16 12:16 98.0 63 18 131/61 95 Intake and Output 11/14/16 11/14/16 11/15/16 15:00 23:00 07:00 Intake Total 800 ml 1100 ml Output Total 500 ml Balance 300 ml 1100 ml Exam Pt was being transported to the procedure and I could not complete her PE Constitutional: alert, frail, oriented Psych: no complaints Head: atraumatic, normocephalic Eyes: nl conjunctiva, nl lids ENMT: nl external ears & nose, nl nasal mucosa & septum Neck: supple Results Result Diagram: 11/15/16 0630 11/15/16 0630 Results 24 hrs Laboratory Tests Test 11/15/16 06:30 White Blood Count 7.4 Red Blood Count 3.68 L Hemoglobin 11.6 L Hematocrit 35.2 L Mean Corpuscular Volume 95.7 Mean Corpuscular Hemoglobin 31.5 Mean Corpuscular Hemoglobin Concent 33.0 Red Cell Distribution Width 14.2 Platelet Count 380 Mean Platelet Volume 9.7 Neutrophils % 74.4 Lymphocytes % 8.5 L Monocytes % 5.1 Eosinophils % 10.2 H Basophils % 0.5 Nucleated Red Blood Cells % 0.0 Neutrophils # 5.5 Lymphocytes # 0.6 L Monocytes # 0.4 Eosinophils # 0.8 H Basophils # 0.0 Nucleated Red Blood Cells # 0.0 Prothrombin Time 12.4 Prothrombin Time Ratio 1.0 INR International Normalized Ratio 0.92 Activated Partial Thromboplast Time 29.7 Thrombin Time 16.7 Sodium Level 141 Potassium Level 4.3 Chloride Level 107 Carbon Dioxide Level 26 Anion Gap 12 Blood Urea Nitrogen 16 Creatinine 0.73 Glucose Level 78 # Calcium Level 8.4 Medications Medications Current Medications Ondansetron HCl (Zofran Inj) 4 mg Q6H PRN IV NAUSEA AND/OR VOMITING; Start at 23:30 Morphine Sulfate (morphine) 4 mg Q6 PRN IV PAIN LEVEL 7-10 Last administered on 11/14/16 00:35; Admin Dose 4 MG; Start 10/26/16 at 23:45 IV Flush 10 ml 10 ml PRN PRN IV FLUSH LINE; Start 10/27/16 at 19:30 Sodium Chloride (NS) 1,000 ml @ 125 mls/hr Q8H IV Last administered on 05:56; Admin Dose 125 MLS/HR; Start 11/04/16 at 11:00 Acetaminophen (Tylenol Tab) 650 mg Q4H PRN PO PAIN AND OR ELEVATED TEMP Last administered on 11/11/16 23:35; Admin Dose 650 MG; Start 11/08/16 at 18:00 Midodrine 2.5 mg 2.5 mg BID@,17 PRN PO SBP <90 Last administered on 17:25; Admin Dose 2.5 MG; Start 11/09/16 at 12:00 Oxacillin Sodium/ Sodium Chloride (Oxacillin/NS) 50 ml @ 100 mls/hr Q6 IVPB Last administered on 11/15/16 05:55; Admin Dose 100 MLS/HR; Start 11/11/16 at 14: 00 Potassium Chloride (Klor-Con 20) 20 meq BID PO Last administered on 11/15/16 09 :33; Admin Dose 20 MEQ; Start 11/13/16 at 21:00 TAWANDA FINK M.D. November 15, 2016 12:26
[2016-11-15] MEDS ORDERED: LIDOCAINE 1% (MPF) 30 ML INJ ONE (12:45)
[2016-11-15] MEDS ORDERED: BUPIVACAINE 0.25% (MPF) 30 ML INJ ONE (12:46)
[2016-11-15] MEDS ORDERED: HEPARIN 1000 UNITS/ML 10 ML INJ ONE (12:46)
[2016-11-15] MEDS ORDERED: LIDOCAINE 1%/EPI (MDV) 20 ML INJ ONE (12:49)
--- NOTE | 2016-11-15 12:49 | CONS ---
Date/Time of Note Date/Time of Note DATE: 11/15/16 TIME: 12:48 Assessment/Plan Assessment/Plan Additional Assessment/Plan 1. Severe hypokalemia with a potassium of 2.6 on admission. The patient's potassium has been fluctuating from hypokalemia to hyperkalemia depending on the potassium replacement. 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 Severe hyponatremia, sodium 116 on admission.-now improved 3. Acute kidney injury with a creatinine 2.5 on admission secondary to prerenal azotemia causing ischemic acute tubular necrosis.-now improved 4. History of colectomy with right-sided ileostomy. 5. History of Hirschsprung disease, status post multiple abdominal surgeries as per the patient. on PO KCl to 20MEQ BID mag stable will follow up Consultation Date/Type/Reason Admit Date/Time Oct 26, 2016 at 20:25 Initial Consult Date October Type of Consultation: NEPHROLOGY Referring Provider: CARLOS RODRIGUEZ MD 24 HR Interval Summary Free Text/Dictation doing ok, BP stable Exam/Review of Systems Vital Signs Vitals Vital Signs Date Time Temp Pulse Resp B/P Pulse Ox O2 Delivery O2 Flow Rate FiO2 11/15/16 12:16 98.0 63 18 131/61 95 Intake and Output 11/14/16 11/14/16 11/15/16 15:00 23:00 07:00 Intake Total 800 ml 1100 ml Output Total 500 ml Balance 300 ml 1100 ml Exam GENERAL: Awake, alert. No distress. HEENT: Normal. Oropharynx clear. NECK: Supple. No JVD, no lymphadenopathy. LUNGS: Clear to auscultation. No crackles, no wheezes. HEART: S1, S2 with regular rhythm. No murmur. ABDOMEN: Soft, tender to palpation diffusely. No rebound, no guarding. Bowel sounds are present. EXTREMITIES: No clubbing, cyanosis, edema. NEUROLOGICAL: Nonfocal, intact. PSYCHIATRIC: Appropriate affect and mood. Results Result Diagram: 11/15/16 0630 11/15/16 0630 Results 24 hrs Laboratory Tests Test 11/15/16 06:30 White Blood Count 7.4 Red Blood Count 3.68 L Hemoglobin 11.6 L Hematocrit 35.2 L Mean Corpuscular Volume 95.7 Mean Corpuscular Hemoglobin 31.5 Mean Corpuscular Hemoglobin Concent 33.0 Red Cell Distribution Width 14.2 Platelet Count 380 Mean Platelet Volume 9.7 Neutrophils % 74.4 Lymphocytes % 8.5 L Monocytes % 5.1 Eosinophils % 10.2 H Basophils % 0.5 Nucleated Red Blood Cells % 0.0 Neutrophils # 5.5 Lymphocytes # 0.6 L Monocytes # 0.4 Eosinophils # 0.8 H Basophils # 0.0 Nucleated Red Blood Cells # 0.0 Prothrombin Time 12.4 Prothrombin Time Ratio 1.0 INR International Normalized Ratio 0.92 Activated Partial Thromboplast Time 29.7 Thrombin Time 16.7 Sodium Level 141 Potassium Level 4.3 Chloride Level 107 Carbon Dioxide Level 26 Anion Gap 12 Blood Urea Nitrogen 16 Creatinine 0.73 Glucose Level 78 # Calcium Level 8.4 Medications Medications Current Medications Ondansetron HCl (Zofran Inj) 4 mg Q6H PRN IV NAUSEA AND/OR VOMITING; Start at 23:30 Morphine Sulfate (morphine) 4 mg Q6 PRN IV PAIN LEVEL 7-10 Last administered on 11/14/16 00:35; Admin Dose 4 MG; Start 10/26/16 at 23:45 IV Flush 10 ml 10 ml PRN PRN IV FLUSH LINE; Start 10/27/16 at 19:30 Sodium Chloride (NS) 1,000 ml @ 125 mls/hr Q8H IV Last administered on 05:56; Admin Dose 125 MLS/HR; Start 11/04/16 at 11:00 Acetaminophen (Tylenol Tab) 650 mg Q4H PRN PO PAIN AND OR ELEVATED TEMP Last administered on 11/11/16 23:35; Admin Dose 650 MG; Start 11/08/16 at 18:00 Midodrine 2.5 mg 2.5 mg BID@09,17 PRN PO SBP <90 Last administered on 17:25; Admin Dose 2.5 MG; Start 11/09/16 at 12:00 Oxacillin Sodium/ Sodium Chloride (Oxacillin/NS) 50 ml @ 100 mls/hr Q6 IVPB Last administered on 11/15/16 05:55; Admin Dose 100 MLS/HR; Start 11/11/16 at 14: 00 Potassium Chloride (Klor-Con 20) 20 meq BID PO Last administered on 11/15/16t 09 :33; Admin Dose 20 MEQ; Start 11/13/16 at 21:00 ROHAN VELÁZQUEZ MD November 15, 2016 12:49
--- NOTE | 2016-11-15 13:15 | HPN ---
Date/Time of Note Date/Time of Note DATE: 11/15/16 TIME: 13:14 Interval H&P Admission Note Pt. seen H&P reviewed: No system changes BRENDAN ZHONG MD November 15, 2016 13:15
[2016-11-15] MEDS ORDERED: PROPOFOL 20 ML ONE (13:25)
[2016-11-15] MEDS ORDERED: LIDOCAINE 2% (SDV) 5 ML INJ ONE (13:25)
[2016-11-15] MEDS ORDERED: MIDAZOLAM 1 MG/ML 2 ML INJ IV PRN (13:30)
[2016-11-15] MEDS ORDERED: DIPHENHYDRAMINE 50 MG INJ IV PRN (13:30)
[2016-11-15] MEDS ORDERED: FENTAnyl 50 MCG/ML VIAL IV PRN ×2 (13:30)
[2016-11-15] MEDS ORDERED: METOCLOPRAMIDE 10 MG INJ IV PRN (13:30)
[2016-11-15] MEDS ORDERED: ONDANSETRON 4 MG INJ IV PRN (13:30)
[2016-11-15] MEDS ORDERED: MEPERIDINE 25 MG INJ IV PRN (13:30)
[2016-11-15] MEDS ORDERED: morphine (1 MG/ML) 10ML SYRINGE IV PRN ×2 (13:30)
[2016-11-15] MEDS ORDERED: EPHEDrine SULFATE 50 MG/5 ML SYG IV PRN (13:30)
[2016-11-15] MEDS ORDERED: CEFAZOLIN 1 GM INJ ONE (13:55)
[2016-11-15] MEDS ORDERED: METOCLOPRAMIDE 10 MG INJ ONE (13:56)
[2016-11-15] MEDS ORDERED: ONDANSETRON 4 MG INJ ONE (13:56)
--- NOTE | 2016-11-15 14:45 | RADRPT ---
PROCEDURE: FLUOROSCOPIC AND ULTRASONOGRAPHIC-GUIDED PLACEMENT OF RIGHT CHEST PORT. CLINICAL INDICATION: The femoral venous access. Venous access required for medications. TECHNIQUE: INTRAPROCEDURE MEDICATIONS: 1 gram Ancef intravenously, intra-op. IV Versed and Fentanyl per protoco l. Informed consent was obtained. The procedure, risks, benefits, complications and alternatives were explained to the patient. Risks including bleeding, infection, and pneumothorax were explained. The patient understood and was willing to proceed. The procedure was performed in the operating room with general anesthesia by the anesthesiologist. A procedural pause was performed. The patient's name, date of , and procedure to be performed w ere verified. The central line was inserted with all elements of maximal sterile barrier technique. All of the fol lowing were used: head covering, facial mask, sterile gown, sterile gloves, a large sterile sheet, h and hygiene, and 2% chlorhexidine for cutaneous antisepsis. The right neck and anterior/superior chest wall were prepped and draped in usual sterile fashion. Limited sonography of the right neck was then performed. Noted is a patent right internal jugular ve in. Following the local injection of 1% lidocaine, the right internal jugular vein was punctured under s onographic guidance with a 20-gauge needle through which a 0.018 inch floppy tip guidewire was advan nicolle into the superior vena cava with fluoroscopic guidance. The tract was dilated to 5 [place] and the wire was then replaced with a 0.035 in Amplatz guidewire. Serial dilatation was then performed and a 7 [place] peel away sheath was introduced. A site just inferior to the clavicle in the superior anterior right chest wall was localized. One pe rcent lidocaine was used as local anesthesia. A transverse 2.5 cm incision was made utilizing a 15 b lade scalpel. Utilizing blunt dissection a subcutaneous pocket was created inferior to the incision. The catheter was tunneled underneath the skin from the newly created pocket to the puncture site in the neck. The central line catheter was pulled through the tract. The catheter was then advanced thr ough the sheath until the tip was positioned in the right atrium. The peel-away sheath was removed. The catheter was flushed and clamped. The 6.6 [place] catheter was then connected to the [employer] power port. The port was then placed into the pocket. Prior to closing the instrument and sponge count was verified and was correct. The subcutaneous tissue was closed with 3-0 Vicryl interrupted suture. The skin at the site of the pock et and in the neck was closed with 4-0 Vicryl suture in a running subcuticular technique. The port w as flushed with 1500 units of heparin in 1.5 cc utilizing a Rainey needle. The needle was removed. A dressing was applied. The patient tolerated procedure well. COMPARISON: None. FINDINGS: Ultrasound images were recorded and stored in the patient's medical record. Final radiographic images demonstrate the tip of the catheter in the upper right atrium. A total of 0.1 minutes of fluoroscopy time was used. The ultrasound images demonstrate the needle entering th e internal jugular vein. IMPRESSION: 1. Successful ultrasonographic and fluoroscopic guided placement of right chest power port. RPTAT: QQ .Rudy Zeng MD, Date Time Electronically viewed and signed by .Rudy Zeng MD, on 11/15/2016 14:45 .R/
[2016-11-16 00:42] VITALS: BP 75/44; RESP 18
[2016-11-16] MEDS: OXACILLIN 2 GM in SOD CHLORIDE 0.9% 50 ML IVPB SCH (05:40)
[2016-11-16 05:48] VITALS: BP 85/48; RESP 17
[2016-11-16 07:28] LABS: ADD SCAN DIFF NO
[2016-11-16 07:40] LABS: ABNORMAL IP MESSAGE 1; BASOPHILS % 0.3 % (0.0-2.0); EOSINOPHILS # 0.7 10^3/ul (0.0-0.5); EOSINOPHILS % 8.7 % (0.0-7.0); HEMATOCRIT 33.5 % (37.0-47.0); HEMOGLOBIN 10.6 g/dl (12.0-16.0); LYMPHOCYTES # 0.5 10^3/ul (0.8-2.9); LYMPHOCYTES % 6.6 % (15.0-51.0); MEAN CORPUSCULAR HEMOGLOBIN 30.8 pg (29.0-33.0); MEAN CORPUSCULAR HGB CONC 31.6 g/dl (32.0-37.0); MEAN CORPUSCULAR VOLUME 97.4 fl (82.0-101.0); MEAN PLATELET VOLUME 9.3 fl (7.4-10.4); MONOCYTE # 0.4 10^3/ul (0.3-0.9); MONOCYTES % 5.7 % (0.0-11.0); NEUTROPHIL # 5.9 10^3/ul (1.6-7.5); NEUTROPHILS % 76.8 % (39.0-77.0); PLATELET COUNT 380 10^3/UL (140-415); RED BLOOD COUNT 3.44 10^6/ul (4.20-5.40); RED CELL DISTRIBUTION WIDTH 14.8 % (11.5-14.5); WHITE BLOOD COUNT 7.7 10^3/ul (4.8-10.8)
[2016-11-16 07:58] VITALS: BP 83/45; RESP 18
[2016-11-16 08:01] LABS: POTASSIUM 3.5 mmol/L (3.5-5.1)
[2016-11-16 08:04] LABS: CALCIUM 7.9 mg/dl (8.4-10.2); CREATININE 0.81 mg/dl (0.44-1.00)
[2016-11-16] MEDS: POTASSIUM CHLORIDE (SR) 20 MEQ TAB PO SCH (10:01)
[2016-11-16] MEDS: SOD CHLORIDE 0.9% 1,000 ML IV SCH (10:01)
[2016-11-16 11:50] VITALS: BP 94/55; RESP 19
--- NOTE | 2016-11-16 15:34 | CONS ---
Date/Time of Note Date/Time of Note DATE: 11/16/16 TIME: 15:33 Assessment/Plan Assessment/Plan Additional Assessment/Plan 1. Severe hypokalemia with a potassium of 2.6 on admission. The patient's potassium has been fluctuating from hypokalemia to hyperkalemia depending on the potassium replacement. 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 Severe hyponatremia, sodium 116 on admission.-now improved 3. Acute kidney injury with a creatinine 2.5 on admission secondary to prerenal azotemia causing ischemic acute tubular necrosis.-now improved 4. History of colectomy with right-sided ileostomy. 5. History of Hirschsprung disease, status post multiple abdominal surgeries as per the patient. on PO KCl to 20MEQ BID mag stable will follow up Consultation Date/Type/Reason Admit Date/Time Oct 26, 2016 at 20:25 Initial Consult Date October Type of Consultation: NEPHROLOGY Referring Provider: CARLOS RODRIGUEZ MD 24 HR Interval Summary Free Text/Dictation Na 145, Bp stable, afebrile Exam/Review of Systems Vital Signs Vitals Vital Signs Date Time Temp Pulse Resp B/P Pulse Ox O2 Delivery O2 Flow Rate FiO2 11/16/16 11:50 97.9 89 19 94/55 96 11/15/16 15:10 Room Air Intake and Output 11/15/16 11/15/16 11/16/16 15:00 23:00 07:00 Intake Total 1000 ml 360 ml 1420 ml Output Total 2105 ml 650 ml 650 ml Balance -1105 ml -290 ml 770 ml Results Result Diagram: 11/16/16 0659 11/16/16 0715 Results 24 hrs Laboratory Tests Test 11/16/16 06:59 11/16/16 07:15 White Blood Count 7.7 Red Blood Count 3.44 L Hemoglobin 10.6 L Hematocrit 33.5 L Mean Corpuscular Volume 97.4 Mean Corpuscular Hemoglobin 30.8 Mean Corpuscular Hemoglobin Concent 31.6 L Red Cell Distribution Width 14.8 H Platelet Count 380 Mean Platelet Volume 9.3 Neutrophils % 76.8 Lymphocytes % 6.6 L Monocytes % 5.7 Eosinophils % 8.7 H Basophils % 0.3 Nucleated Red Blood Cells % 0.0 Neutrophils # 5.9 Lymphocytes # 0.5 L Monocytes # 0.4 Eosinophils # 0.7 H Basophils # 0.0 Nucleated Red Blood Cells # 0.0 Sodium Level 145 H Potassium Level 3.5 Chloride Level 106 Carbon Dioxide Level 28 Anion Gap 15 Blood Urea Nitrogen 14 Creatinine 0.81 Glucose Level 151 Calcium Level 7.9 L Medications Medications Current Medications Ondansetron HCl (Zofran Inj) 4 mg Q6H PRN IV NAUSEA AND/OR VOMITING; Start at 23:30 Morphine Sulfate (morphine) 4 mg Q6 PRN IV PAIN LEVEL 7-10 Last administered on 11/14/16 00:35; Admin Dose 4 MG; Start 10/26/16 at 23:45 IV Flush 10 ml 10 ml PRN PRN IV FLUSH LINE; Start 10/27/16 at 19:30 Sodium Chloride (NS) 1,000 ml @ 125 mls/hr Q8H IV Last administered on 10:01; Admin Dose 125 MLS/HR; Start 11/04/16 at 11:00 Acetaminophen (Tylenol Tab) 650 mg Q4H PRN PO PAIN AND OR ELEVATED TEMP Last administered on 11/11/16 23:35; Admin Dose 650 MG; Start 11/08/16 at 18:00 Midodrine 2.5 mg 2.5 mg BID@09,17 PRN PO SBP <90 Last administered on 17:25; Admin Dose 2.5 MG; Start 11/09/16 at 12:00 Oxacillin Sodium/ Sodium Chloride (Oxacillin/NS) 50 ml @ 100 mls/hr Q6 IVPB Last administered on 11/16/16 05:40; Admin Dose 100 MLS/HR; Start 11/11/16 at 14: 00 Potassium Chloride (Klor-Con 20) 20 meq BID PO Last administered on 11/16/16 10 :01; Admin Dose 20 MEQ; Start 11/13/16 at 21:00 ROHAN VELÁZQUEZ MD November 16, 2016 15:34
--- NOTE | 2016-11-16 15:54 | CONS ---
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 Transesophageal echo was negative for valvular vegetation - extensive catheterization and a concern of thrombosis leading to septic thrombophlebitis - persistent hypotension - h/o infected portacath, s/p removal in 2015 - possible small bowel obstruction, resolved. - acute kidney injury, resolved - Hirschsprung's disease, status post colectomy/ileostomy. - MRSA colonization, on mupirocin recommendations - continue IV oxacillin (); minimal two weeks. - probiotics Problems: Consultation Date/Type/Reason Admit Date/Time Oct 26, 2016 at 20:25 Initial Consult Date 11/09/16 Type of Consultation: id Referring Provider: CARLOS RODRIGUEZ MD Exam/Review of Systems Vital Signs Vitals Vital Signs Date Time Temp Pulse Resp B/P Pulse Ox O2 Delivery O2 Flow Rate FiO2 11/16/16 11:50 97.9 89 19 94/55 96 11/15/16 15:10 Room Air Intake and Output 11/15/16 11/15/16 11/16/16 15:00 23:00 07:00 Intake Total 1000 ml 360 ml 1420 ml Output Total 2105 ml 650 ml 650 ml Balance -1105 ml -290 ml 770 ml Exam Constitutional: alert, oriented, well developed Psych: nl mood/affect, no complaints Head: atraumatic, normocephalic Respiratory: clear to auscultation, normal air movement Cardiovascular: nl pulses, regular rate and rhythm Gastrointestinal: nl liver, spleen, non-tender, soft Results Result Diagram: 11/16/16 0659 11/16/16 0715 Results 24 hrs Laboratory Tests Test 11/16/16 06:59 11/16/16 07:15 White Blood Count 7.7 Red Blood Count 3.44 L Hemoglobin 10.6 L Hematocrit 33.5 L Mean Corpuscular Volume 97.4 Mean Corpuscular Hemoglobin 30.8 Mean Corpuscular Hemoglobin Concent 31.6 L Red Cell Distribution Width 14.8 H Platelet Count 380 Mean Platelet Volume 9.3 Neutrophils % 76.8 Lymphocytes % 6.6 L Monocytes % 5.7 Eosinophils % 8.7 H Basophils % 0.3 Nucleated Red Blood Cells % 0.0 Neutrophils # 5.9 Lymphocytes # 0.5 L Monocytes # 0.4 Eosinophils # 0.7 H Basophils # 0.0 Nucleated Red Blood Cells # 0.0 Sodium Level 145 H Potassium Level 3.5 Chloride Level 106 Carbon Dioxide Level 28 Anion Gap 15 Blood Urea Nitrogen 14 Creatinine 0.81 Glucose Level 151 Calcium Level 7.9 L Medications Medications Current Medications Ondansetron HCl (Zofran Inj) 4 mg Q6H PRN IV NAUSEA AND/OR VOMITING; Start at 23:30 Morphine Sulfate (morphine) 4 mg Q6 PRN IV PAIN LEVEL 7-10 Last administered on 11/14/16 00:35; Admin Dose 4 MG; Start 10/26/16 at 23:45 IV Flush 10 ml 10 ml PRN PRN IV FLUSH LINE; Start 10/27/16 at 19:30 Sodium Chloride (NS) 1,000 ml @ 125 mls/hr Q8H IV Last administered on 10:01; Admin Dose 125 MLS/HR; Start 11/04/16 at 11:00 Acetaminophen (Tylenol Tab) 650 mg Q4H PRN PO PAIN AND OR ELEVATED TEMP Last administered on 11/11/16 23:35; Admin Dose 650 MG; Start 11/08/16 at 18:00 Midodrine 2.5 mg 2.5 mg BID@09,17 PRN PO SBP <90 Last administered on 17:25; Admin Dose 2.5 MG; Start 11/09/16 at 12:00 Oxacillin Sodium/ Sodium Chloride (Oxacillin/NS) 50 ml @ 100 mls/hr Q6 IVPB Last administered on 11/16/16 05:40; Admin Dose 100 MLS/HR; Start 11/11/16 at 14: 00 Potassium Chloride (Klor-Con 20) 20 meq BID PO Last administered on 11/16/16 10 :01; Admin Dose 20 MEQ; Start 11/13/16 at 21:00 LISS MALDONADO MD November 16, 2016 15:54
[2016-11-16 15:58] VITALS: BP 89/50; RESP 18
[2016-11-16] MEDS ORDERED: MIDO2.5T PO (16:48)
[2016-11-16] MEDS ORDERED: POTA20TA15 PO (16:48)
--- NOTE | 2016-11-16 16:59 | DS ---
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 Transesophageal echo was negative for valvular vegetation - extensive catheterization and a concern of thrombosis leading to septic thrombophlebitis - persistent hypotension - h/o infected portacath, s/p removal in 2015 - possible small bowel obstruction, resolved. - acute kidney injury, resolved - Hirschsprung's disease, status post colectomy/ileostomy. - MRSA colonization, on mupirocin Patient Condition: Stable Hx of Present Illness Patient with Hirshsprung's disease comes in with 1 day of nausea, vomiting, abdominal pain. Patient was found to have hyperkalemia and ileus. Therefore, patient is admitted for intravenous hydration and correction of electrolytes. Home Meds Active Scripts Midodrine HCl (Midodrine HCl) 2.5 Mg Tablet, 2.5 MG PO BID@09,17 Y for SBP <90 for 30 Days, TAB Prov:DEVENDRA GOMES 11/16/16 Potassium Chloride* (K-Dur*) 20 Meq Tab.prt.sr, 20 MEQ PO BID for 30 Days Prov:DEVENDRA GOMES 11/16/16 Magnesium Chloride* (Mag 64*) 64 Mg Tabsr, 64 MG PO BID for 14 Days, TAB Prov:ROMI ESPINO 09/20/16 Reported Medications Hydroxyzine Pamoate* (Vistaril*) 25 Mg Capsule, 25 MG PO QHS Y for ITCHING, CAP 11/02/15 Albuterol Sulfate* (Proair HFA*) 8.5 Gm Hfa.aer.ad, 2 PUFF INH Q4H Y for WHEEZING AND SOB, #1 INHALER 11/02/15 Folic Acid* (Folic Acid*) 1 Mg Tablet, 1 MG PO DAILY, TAB 11/02/15 Famotidine* (Famotidine*) 20 Mg Tablet, 20 MG PO BID, TAB 11/02/15 Cyanocobalamin* (Vitamin B-12* Inj) 1,000 Mcg/Ml Vial, 1000 MCG IM Q28D, VIAL 11/02/15 Discontinued Reported Medications Potassium Chloride* (Klor-Con*) 20 Meq Tabsr, 10 MEQ PO DAILY, TAB.SA 10/26/16 Pending Labs Laboratory Tests Test 11/16/16 06:59 11/16/16 07:15 White Blood Count 7.710^3/ul (4.8-10.8) Red Blood Count 3.4410^6/ul (4.20-5.40) Hemoglobin 10.6g/dl (12.0-16.0) Hematocrit 33.5% (37.0-47.0) Mean Corpuscular Volume 97.4fl (82.0-101.0) Mean Corpuscular Hemoglobin 30.8pg (29.0-33.0) Mean Corpuscular Hemoglobin Concent 31.6g/dl (32.0-37.0) Red Cell Distribution Width 14.8% (11.5-14.5) Platelet Count 09507^3/UL (140-415) Mean Platelet Volume 9.3fl (7.4-10.4) Neutrophils % 76.8% (39.0-77.0) Lymphocytes % 6.6% (15.0-51.0) Monocytes % 5.7% (0.0-11.0) Eosinophils % 8.7% (0.0-7.0) Basophils % 0.3% (0.0-2.0) Nucleated Red Blood Cells % 0.0/100WBC (0.0-0.0) Neutrophils # 5.910^3/ul (1.6-7.5) Lymphocytes # 0.510^3/ul (0.8-2.9) Monocytes # 0.410^3/ul (0.3-0.9) Eosinophils # 0.710^3/ul (0.0-0.5) Basophils # 0.010^3/ul (0.0-0.1) Nucleated Red Blood Cells # 0.010^3/ul (0.0-0.0) Sodium Level 145mmol/L (135-144) Potassium Level 3.5mmol/L (3.5-5.1) Chloride Level 106mmol/L (97-110) Carbon Dioxide Level 28mmol/L (21-31) Anion Gap 15 (8-16) Blood Urea Nitrogen 14mg/dl (7-20) Creatinine 0.81mg/dl (0.44-1.00) Glucose Level 151mg/dl (70-220) Calcium Level 7.9mg/dl (8.4-10.2) DEVENDRA GOMES November 16, 2016 16:59 DEVENDRA GOMES November 16, 2016 16:59
== END 2016-11-16 18:15 | disposition home or self-care (01) | DRG 388 ==
LOC: E/R 16:11 → MS4 20:25
PROVIDERS: ADMIT Internal Medicine; ATTEND Internal Medicine
PROC: 02HV33Z Insertion of Infusion Device into Superior Vena Cava, Percutaneous Approach (ICD-10-PCS; principal; 2016-10-26)
PROC: 0JH60XZ Insertion of Tunneled Vascular Access Device into Chest Subcutaneous Tissue and Fascia, Open Approach (ICD-10-PCS; 2016-11-15)
PROC: 02HV33Z Insertion of Infusion Device into Superior Vena Cava, Percutaneous Approach (ICD-10-PCS; 2016-11-15)
DX: K56.69 Other intestinal obstruction (principal); N17.0 Acute kidney failure with tubular necrosis; A41.01 Sepsis due to Methicillin susceptible Staphylococcus aureus; R65.21 Severe sepsis with septic shock; E87.1 Hypo-osmolality and hyponatremia; E87.5 Hyperkalemia; Q43.1 Hirschsprung's disease; E87.6 Hypokalemia; Z93.2 Ileostomy status; Z22.322 Carrier or suspected carrier of Methicillin resistant Staphylococcus aureus
CPT/HCPCS: 36415; 36430; 36561; 36569; 71010; 74176; 76937; 76942; 80048; 80053; 80202; 81003; 82533; 83605; 83690; 83735; 83930; 83935; 84100; 84132; 84300; 84439; 84443; 85025; 85049; 85610; 85670; 85730; 86850; 86900; 86901; 86920; 87040; 87081; 93005; 93306; 93312; 93325; 96374; 96375; C1788; J0610; J0690; J0743; J1644; J1815; J2270; J2405; J2765; J3370; J3475; J3480; J7030; J7040; P9016; P9047

== ENCOUNTER 2016-11-21 22:01 | Inpatient (IN) | payer OTHER ==
[~2016-11-21] VITALS: Ht 147.3 cm; Wt 34.0 kg
[~2016-11-21 22:01] MED LIST changes: +MIDO2.5T PO; +POTA20TA15 PO
--- NOTE | 2016-11-21 22:26 | ERA ---
ER Documentation Chief Complaint Date/Time DATE: 11/21/16 TIME: 22:25 Chief Complaint MATAMOROS AND N/V SINCE 2PM AND DIZZINESS/WEAK WAS ADMITTED LAST MONTH HPI The patient is a 41-year-old female, presenting to the ER because of nausea, vomiting, and weakness since 2 PM today. She had similar symptoms previously when she was sick when her potassium level is elevated. She was discharged at 5 days ago. She denies fever, chills, neck pain, chest pain, abdominal pain, dysuria, diarrhea. She does not smoke nor drink Past medical history: History of Hirschsprung disease with multiple abdominal surgeries, history of hypo-tension Past surgical history: Ileostomy ROS All systems reviewed and are negative except as per history of present illness. Medications Home Meds Active Scripts Midodrine HCl (Midodrine HCl) 2.5 Mg Tablet, 2.5 MG PO BID@,17 Y for SBP <90 for 30 Days, TAB Prov:DEVENDRA GOMES 11/16/16 Potassium Chloride* (K-Dur*) 20 Meq Tab.prt.sr, 20 MEQ PO BID for 30 Days Prov:DEVENDRA GOMES 11/16/16 Magnesium Chloride* (Mag 64*) 64 Mg Tabsr, 64 MG PO BID for 14 Days, TAB Prov:ROMI ESPINO 09/20/16 Reported Medications Acetaminophen* (Acetaminophen*) 500 MG Extra Strength Tablet, 500 MG PO Q4H Y for PAIN AND OR ELEVATED TEMP, TAB 11/21/16 Fluticasone Propionate (Flonase Allergy Relief) 9.9 Ml Riley.susp, 2 SPRAY NASAL DAILY Y for PRN, #1 BOTTLE TO EACH NOSTRIL 11/21/16 Multivits-Min/Iron/FA/Lutein (Centrum Silver Women Tablet) 1 Each Tablet, 1 EACH PO, TAB 11/21/16 Hydroxyzine Pamoate* (Vistaril*) 25 Mg Capsule, 25 MG PO QHS Y for ITCHING, CAP 11/02/15 Albuterol Sulfate* (Proair HFA*) 8.5 Gm Hfa.aer.ad, 2 PUFF INH Q4H Y for WHEEZING AND SOB, #1 INHALER 11/02/15 Folic Acid* (Folic Acid*) 1 Mg Tablet, 1 MG PO DAILY, TAB 4/21/16 Famotidine* (Famotidine*) 20 Mg Tablet, 20 MG PO BID, TAB 11/02/15 Cyanocobalamin* (Vitamin B-12* Inj) 1,000 Mcg/Ml Vial, 1000 MCG IM Q28D, VIAL 11/02/15 Discontinued Reported Medications Potassium Chloride* (Klor-Con*) 20 Meq Tabsr, 10 MEQ PO DAILY, TAB.SA 10/26/16 Allergies Allergies: Coded Allergies: ferrous sulfate (Verified Allergy, Severe, 11/21/16) ANY FORM OF FERROUS codeine (Verified Allergy, Unknown, 11/21/16) PMhx/Soc History of Surgery: Yes (ADOMINAL SURGERY X 5 FOR HIRSCHPRUNG'S DISEASE) Anesthesia Reaction: No Hx 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 Disorder: No Hx Respiratory Disorders: No Hx Cardiac Disorders: No Hx Psychiatric Problems: No Hx Miscellaneous Medical Probl: No Hx Alcohol Use: No Hx Substance Use: No Hx Tobacco Use: No Physical Exam Vitals Vital Signs Date Time Temp Pulse Resp B/P Pulse Ox O2 Delivery O2 Flow Rate FiO2 11/22/16 01:38 111 18 100 21 11/22/16 01:30 114 18 100/73 100 11/21/16 23:30 95 18 92/65 98 11/21/16 23:29 Nasal Cannula 3 11/21/16 22:08 97.7 113 20 94/58 100 Physical Exam Const: No acute distress. Dehydrated Head: Atraumatic. Eyes: Normal Conjunctiva. ENT: Normal External Ears, Nose and Mouth. Neck: Full range of motion. No meningismus. Resp: Clear to auscultation bilaterally. Cardio: Regular tachycardic Abd: Soft, non distended, normal bowel sounds, non tender. Ileostomy Skin: No petechiae or rashes. Back: No midline or flank tenderness. Ext: No cyanosis, or edema. Neur: Awake and alert. No focal deficit Psych: Normal Mood and Affect. Result Diagram: 11/21/16 0000 11/21/16 0000 Results 24 hrs Laboratory Tests Test 11/21/16 00:00 11/21/16 23:30 11/21/16 23:36 11/22/16 00:01 White Blood Count 11.410^3/ul Red Blood Count 3.4610^6/ul Hemoglobin 11.0g/dl Hematocrit 31.9% Mean Corpuscular Volume 92.2fl Mean Corpuscular Hemoglobin 31.8pg Mean Corpuscular Hemoglobin Concent 34.5g/dl Red Cell Distribution Width 14.1% Platelet Count 80664^3/UL Mean Platelet Volume 9.6fl Neutrophils % 84.1% Lymphocytes % 5.9% Monocytes % 8.4% Eosinophils % 0.4% Basophils % 0.1% Nucleated Red Blood Cells % 0.0/100WBC Neutrophils # 9.610^3/ul Lymphocytes # 0.710^3/ul Monocytes # 1.010^3/ul Eosinophils # 0.110^3/ul Basophils # 0.010^3/ul Nucleated Red Blood Cells # 0.010^3/ul Prothrombin Time 12.9Sec Prothrombin Time Ratio 1.0 INR International Normalized Ratio 0.97 Activated Partial Thromboplast Time 28.4Sec Sodium Level 127mmol/L Potassium Level 6.1mmol/L Chloride Level 96mmol/L Carbon Dioxide Level 19mmol/L Anion Gap 18 Blood Urea Nitrogen 84mg/dl Creatinine 1.92mg/dl Glucose Level 159mg/dl Lactic Acid Level 4.2mmol/L Calcium Level 8.4mg/dl Total Bilirubin 0.7mg/dl Direct Bilirubin 0.00mg/dl Indirect Bilirubin 0.7mg/dl Aspartate Amino Transf (AST/SGOT) 44IU/L Alanine Aminotransferase (ALT/SGPT) 38IU/L Alkaline Phosphatase 119IU/L Total Protein 8.5g/dl Albumin 4.4g/dl Globulin 4.10g/dl Albumin/Globulin Ratio 1.07 Urine Color YELLOW Urine Clarity CLEAR Urine pH 5.5 Urine Specific [place] 1.025 Urine Ketones TRACE Urine Nitrite NEGATIVE Urine Bilirubin NEGATIVE Urine Urobilinogen 0.2 E.U./dL Urine Leukocyte Esterase NEGATIVE Urine Microscopic RBC 2-5/HPF Urine Microscopic WBC 0-2/HPF Urine Squamous Epithelial Cells FEW Urine Bacteria FEW Urine Hemoglobin 2+ Urine Glucose NEGATIVE% Urine Total Protein 2+ Bedside Urine pH (LAB) 5.5 Bedside Urine Protein (LAB) 2+ Bedside Urine Glucose (UA) Negative Bedside Urine Ketones (LAB) Negative Bedside Urine Blood 2+ Bedside Urine Nitrite (LAB) Negative Bedside Urine Leukocyte Esterase (L Negative Magnesium Level 1.0mg/dl Test 11/22/16 02:17 Bedside Glucose 328mg/dL Current Medications Medications (Trade) Dose Ordered Sig/Elvie Route PRN Reason Start Time Stop Time Status Last Admin Dose Admin Sodium Chloride (NS) 1,050 ml @ 1,050 mls/hr BOLUS X1 ONCE IV 11/21/16 23:00 11/21/16 23:59 DC 11/21/16 23:36 Ondansetron HCl 4 mg 4 mg ONCE STAT IV 11/21/16 22:37 11/21/16 22:40 DC 11/21/16 23:36 Vancomycin HCl 250 ml @ 125 mls/hr ONCE IVPB 11/22/16 01:30 11/22/16 03:29 11/22/16 02:22 Piperacillin Sod/ Tazobactam Sod (Zosyn 2.25gm/ 50ml (Pmx)) 50 ml @ 100 mls/hr ONCE ONCE IVPB 11/22/16 01:30 11/22/16 01:59 DC 11/22/16 01:44 Albuterol (Proventil 0.5% (Neb)) 15 mg ONCE STAT INH 11/22/16 01:13 11/22/16 01:17 DC 11/22/16 01:35 Insulin Human Regular (Novolin-R) 10 unit ONCE STAT IV 11/22/16 01:13 11/22/16 01:17 DC Dextrose (D50w Syringe) ONCE PRN IV POC BLOOD GLUCOSE <250 MG/DL 11/22/16 01:30 11/22/16 01:44 Sodium Polystyrene Sulfonate (Kayexalate) 30 gm ONCE ONCE PO 11/22/16 01:30 11/22/16 01:31 DC 11/22/16 01:44 Insulin Human Regular (Humulin R) 300 unit STK-MED ONCE .ROUTE 11/22/16 02:11 11/22/16 02:12 DC Insulin Human Regular (Novolin-R) 10 unit ONCE ONCE IV 11/22/16 02:30 11/22/16 02:30 DC Insulin Human Regular (Humulin R) 10 unit ONCE ONCE IV 11/22/16 02:30 11/22/16 02:31 DC 11/22/16 02:33 Procedures/[place] [id number] Radiology Main Line: [phone] DIAGNOSTIC IMAGING REPORT Patient: JACKIE DAMIAN : 1975 Age: 41 Sex: F MR #: [id number] DOS: 11/21/16 2237 Ordering MD: HORACIO ORO MD Location: E/R Room/Bed: PROCEDURE: XR Chest. CLINICAL INDICATION: Port-A-Cath placement. TECHNIQUE: AP portable views of the chest were obtained. COMPARISON: 11/12/2016 FINDINGS: The cardiac silhouette is normal in appearance. There is interval placement of right-sided Port-A-Cath with tip in the proximal right atrium. There is persistent minimal linear infiltrates involving the left lower lobe, improved compared to prior exam. The right lung is normally aerated. There is no evidence of pleural effusion or pneumothorax. The osseous structures and soft tissues unremarkable. IMPRESSION: 1. Interval placement of right sided Port-A-Cath with tip in the proximal radiating. 2. Minimal residual linear infiltrates in the left lower lobe, improved compared to prior exam. RPTAT: HGAS .Barrett Webb MD, MD Date Time Electronically viewed and signed by .Barrett Webb MD, MD on 11/22/2016 00: 12 .S/ CC: HORACIO ROO MD EKG: Read by emergency physician Rate/Rhythm: Sinus tachycardia 103 beats/min QRS, ST, T-waves: No ST elevation, no T inversion Impression: Abnormal EKG MEDICAL MAKING DECISION: The patient is a 41-year-old female, presenting with acute septic shock, acute kidney injury, acute hyperkalemia. She was treated with normal saline 30 mL/kg IV, vancomycin IV, Zosyn IV for acute septic shock, Car catheter for acute kidney injury, albuterol 15 mg nebulizer, Kayexalate 30 g p.o., regular insulin 10 units IV and 1 ampule of D50 IV for acute hyperkalemia with good response. The differential diagnoses considered include but are not limited to UTI, pyelonephritis, pneumonia, empyema Admit MDM: Patient's infectious symptoms have not stabilized and the patient is at risk of rapid decompensation. The patient will be admitted for careful hydration, antibiotic therapy, and infectious source control. Severe Sepsis criteria: Infectious source: Unknown End organ damage indicated by: Lactate > 2.0 mmol/L Sepsis Management: Time of recognition of severe sepsis/septic shock: 12:05 am Within 3 hours of recognition: Blood cultures x 2 before broad-spectrum antibiotics: Yes 30 ml/kg NS bolus completed Initial lactate 4.2 Repeat lactate not indicated as initial lactate < 2.0 Septic Shock Assessment: Any lactic acid > 4.0 yes Persistent hypotension (SBP < 90 or 40 mmHg drop, MAP < 65) despite 30 mL/kg IV fluid bolusno Volume Re-assessment for Septic Shock (post 30 ml/kg bolus): Temp97.7, BP92/65, HR95, RR18, Pox98% ra Heart regular rate & rhythm Lungs no crackles Skin Warm & dry Cap Refill less than 2 seconds Peripheral pulses radially present Persistent Hypotension Treatment: Comfort care no Central line no Vasopressor started No I considered further perfusion assessment with CVP measurement, SCVO2, bedside ultrasound volume assessment, passive leg raise, trial of further fluid bolus. And proceeded withIV fluid Critical Care: Critical care time 40 minutes excluding billable procedure Emergent fluid management while maintaining close respiratory support. Provision of immediate and broad-spectrum antibiotic therapy. Simultaneous assessment for possible sources in order to direct targeted therapy. Consideration for invasive and chemical support to prevent cardiopulmonary collapse. Departure Diagnosis: Primary Impression: Septic shock Additional Impressions: Acute kidney injury Acute hyperkalemia Anemia Condition: Critical Comments I discussed the findings with the patient. I discussed the patient with her physician Dr. Paez who was made aware of the lab, the treatment, the patient condition. The patient is admitted to ICU at 2:25 AM HORACIO ORO MD November 21, 2016 22:26
[2016-11-21] MEDS ORDERED: ONDANSETRON 4 MG INJ IV STA (22:37)
[2016-11-21] MEDS ORDERED: SOD CHLORIDE 0.9% IV ONE (23:00)
[2016-11-21] MEDS ORDERED: MULT-853 PO (23:15)
[2016-11-21] MEDS ORDERED: ACET-141 PO (23:15)
[2016-11-21] MEDS ORDERED: FLUT9.9S NASAL (23:15)
[2016-11-21 23:35] LABS: URINE BLOOD (Dip) POC 2+ (NEGATIVE)
[2016-11-21 23:50] LABS: ADD UMIC YES; URINE BILIRUBIN (Dip) NEGATIVE (NEGATIVE); URINE BLOOD (Dip) 2+ (NEGATIVE); URINE COLOR YELLOW (YELLOW); URINE GLUCOSE (Dip) NEGATIVE (NEGATIVE); URINE KETONES (Dip) TRACE (NEGATIVE); URINE LEUKOCYTE ESTERASE (Dip) NEGATIVE (NEGATIVE); URINE NITRITE (Dip) NEGATIVE (NEGATIVE); URINE TOTAL PROTEIN (Dip) 2+ (NEGATIVE); URINE UROBILINOGEN (Dip) 0.2 E.U./dL (0.1-1.0)
[2016-11-22 00:10] LABS: ADD SCAN DIFF NO
[2016-11-22 00:11] LABS: BASOPHILS % 0.1 % (0.0-2.0); EOSINOPHILS # 0.1 10^3/ul (0.0-0.5); EOSINOPHILS % 0.4 % (0.0-7.0); HEMATOCRIT 31.9 % (37.0-47.0); LYMPHOCYTES # 0.7 10^3/ul (0.8-2.9); LYMPHOCYTES % 5.9 % (15.0-51.0); MEAN CORPUSCULAR HEMOGLOBIN 31.8 pg (29.0-33.0); MEAN CORPUSCULAR HGB CONC 34.5 g/dl (32.0-37.0); MEAN CORPUSCULAR VOLUME 92.2 fl (82.0-101.0); MEAN PLATELET VOLUME 9.6 fl (7.4-10.4); MONOCYTES % 8.4 % (0.0-11.0); NEUTROPHIL # 9.6 10^3/ul (1.6-7.5); NEUTROPHILS % 84.1 % (39.0-77.0); PLATELET COUNT 396 10^3/UL (140-415); RED BLOOD COUNT 3.46 10^6/ul (4.20-5.40); RED CELL DISTRIBUTION WIDTH 14.1 % (11.5-14.5); WHITE BLOOD COUNT 11.4 10^3/ul (4.8-10.8)
[2016-11-22 00:12] LABS: BACTERIA,URINE FEW; SQUAMOUS EPITHELIAL CELL,UR FEW
--- NOTE | 2016-11-22 00:12 | RADRPT ---
PROCEDURE: XR Chest. CLINICAL INDICATION: Port-A-Cath placement. TECHNIQUE: AP portable views of the chest were obtained. COMPARISON: 11/12/2016 FINDINGS: The cardiac silhouette is normal in appearance. There is interval placement of right-sided Port-A-C ath with tip in the proximal right atrium. There is persistent minimal linear infiltrates involving the left lower lobe, improved compared to prior exam. The right lung is normally aerated. There i s no evidence of pleural effusion or pneumothorax. The osseous structures and soft tissues unremark able. IMPRESSION: 1. Interval placement of right sided Port-A-Cath with tip in the proximal radiating. 2. Minimal residual linear infiltrates in the left lower lobe, improved compared to prior exam. RPTAT: HGAS .Barrett Webb MD, Date Time Electronically viewed and signed by .Barrett Webb MD, on 11/22/2016 00:12 .S/
[2016-11-22 00:48] LABS: ALBUMIN 4.4 g/dl (3.3-4.9); ALBUMIN/GLOBULIN RATIO 1.07; BILIRUBIN,INDIRECT 0.7 mg/dl (0-1.1); BILIRUBIN,TOTAL 0.7 mg/dl (0.2-1.3); CALCIUM 8.4 mg/dl (8.4-10.2); CREATININE 1.92 mg/dl (0.44-1.00); TOTAL PROTEIN 8.5 g/dl (6.1-8.1)
[2016-11-22 01:02] LABS: INR 0.97; PROTIME 12.9 Sec (12.2-14.2)
[2016-11-22 01:03] LABS: PARTIAL THROMBOPLASTIN TIME 28.4 Sec (25.0-35.0)
[2016-11-22 01:05] LABS: POTASSIUM 6.1 mmol/L (3.5-5.1)
[2016-11-22] MEDS ORDERED: INSULIN REGULAR 10 ML INJ IV STA (01:13)
[2016-11-22] MEDS ORDERED: ALBUTEROL 0.5% (NEB) 2.5 MG/0.5 ML AMP INH STA (01:13)
[2016-11-22] MEDS ORDERED: VANCOMYCIN 1 GM (PMX) 250 ML IVPB SCH (01:30)
[2016-11-22] MEDS ORDERED: NA POLYST SULFON 15 GM/60 ML BTL PO ONE (01:30)
[2016-11-22] MEDS ORDERED: PIPER-TAZO 2.25 GM (PMX) 50 ML IVPB ONE (01:30)
[2016-11-22] MEDS ORDERED: DEXTROSE 50% 50 ML SYRINGE IV PRN (01:30)
[2016-11-22] MEDS ORDERED: INSULIN REGULAR, HUMAN 100 UNIT/1 ML 3ML VIAL ONE (02:11)
[2016-11-22] MEDS ORDERED: INSULIN REGULAR 10 ML INJ IV ONE (02:30)
[2016-11-22] MEDS ORDERED: INSULIN REGULAR, HUMAN 100 UNIT/1 ML 3ML VIAL IV ONE (02:30)
[2016-11-22] MEDS ORDERED: SOD CHLORIDE 0.9% 1,000 ML IV ONE (03:30)
[2016-11-22] MEDS: SOD CHLORIDE 0.9% 1,000 ML IV SCH ×3 (06:18→20:00)
[2016-11-22] MEDS ORDERED: ACETAMINOPHEN 500 MG TAB PO PRN ×2 (06:30→18:00)
[2016-11-22] MEDS ORDERED: VANCOMYCIN IV PER PHARMACY XX SCH (06:30)
[2016-11-22] MEDS: CEFEPIME 1GM/50 ML (PMX) 50 ML IVPB SCH ×2 (09:29→21:00)
[2016-11-22 12:09] LABS: POTASSIUM 3.6 mmol/L (3.5-5.1)
[2016-11-22 12:11] LABS: CREATININE 1.15 mg/dl (0.44-1.00)
[2016-11-22 12:12] LABS: CALCIUM 7.9 mg/dl (8.4-10.2)
--- NOTE | 2016-11-22 13:02 | HP ---
DATE OF ADMISSION: 11/21/2016 CHIEF COMPLAINT: Nausea, vomiting since 2:00 p.m. last night, dizziness and generalized weakness. HISTORY OF PRESENT ILLNESS: The patient is a 41-year-old female, known to me from previous admissio n. 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 The patient presented to the emergency room with complaints of generalized weakness, nausea and vomiting. The patient al so noted to be hypotensive and tachycardic with elevated white blood cells to 11,400 and elevated la ctic acid at 4.2. The patient's potassium was 6.1, sodium was 127 and creatinine 192. The patient underwent a chest x-ray, which revealed interval placement of a right-sided Port-A-Cath with tip in the proximal right antrum and minimal residual linear infiltrates in the left lower lobe, improved c ompared to prior exam. The patient was getting IV fluids and started on broad-spectrum antibiotics. The patient was given Zofran for nausea and also given Kayexalate for treatment for hyperkalemia. The patient complains of chills, denies any fever. The patient also denies any dysuria, denies any bilateral lower extremity swelling. The patient will be admitted for further evaluation and manage ment. PAST MEDICAL HISTORY: Per HPI. PAST SURGICAL HISTORY: The patient had multiple abdominal surgeries in her childhood for Hirschspru ng disease and ileostomy. The patient also had recent Port-A-Cath placement by radiology on 017. FAMILY HISTORY: Noncontributory. SOCIAL HISTORY: The patient lives at home with her mother. The patient denies any tobacco use, den ies any illicit drug use, denies any alcohol use. ALLERGIES: THE PATIENT IS ALLERGIC TO CODEINE AND FERROUS SULFATE. HOME MEDICATIONS: Include: 1. Midodrine. 2. K-Dur. 3. Magnesium chloride. 4. Tylenol. 5. Flonase. 6. Multivitamins. 7. Vistaril 8. Albuterol. 9. Folic acid. 10. Pepcid. 11. Vitamin B12. REVIEW OF SYSTEMS: A 12-point review of systems is negative unless what mentioned in the HPI. PHYSICAL ASSESSMENT: GENERAL: Well-developed, tiny frame female, currently is awake, alert. VITAL SIGNS: Temperature is 98.0, pulse 104, blood pressure is 89/52, respiratory rate 18, oxygen s aturation 100% on room air. HEENT: Head is atraumatic, normocephalic. Pupils equal, round, reactive to light and accommodation . Oral mucosa is pink and moist. NECK: Supple, no cervical lymphadenopathy, no thyromegaly. CHEST: Lungs clear bilaterally. There is no rhonchi, wheezes, rales noted. The patient has a righ t chest Port-A-Cath. CARDIOVASCULAR: The patient is slightly tachycardic. Normal S1, S2. No murmurs, gallops, clicks, rubs noted. ABDOMEN: Flat, soft, nondistended, nontender. The patient has a right lower quadrant ileostomy. SKIN: There is no rash, petechiae noted. EXTREMITIES: There is no edema, clubbing, cyanosis. Pulses equal bilaterally 2+. GENITOURINARY: The patient has a Car catheter with blood-tinged urine. NEUROLOGIC: The patient is awake, alert and oriented, no focal deficits noted. Motor strength is 5 /5 in all extremities. LABORATORY DATA: On admission, CBC: White blood cells 11.4, hemoglobin 11.0, hematocrit 31.9, plat elets 396. Chemistry on admission: Sodium is 127, potassium 6.1, chloride 96, carbon dioxide 19, a nion gap 18, BUN is 84, creatinine 1.92, glucose 159, calcium 8.4. AST 44, ALT 38, alkaline phospha tase 119, albumin is 4.4. PT is 12.9, INR is 0.94, APTT is 28.4. ASSESSMENT AND PLAN: 1. Possible sepsis with shock. We are going to continue IV fluids, continue broad-spectrum antibio tics. Follow up on urine and blood cultures. 2. Acute kidney injury. We will continue IV fluids. Dr. Spain will be following in nephrology [facility]. Continue to monitor hemoglobin and hematocrit. 3. Acute hyperkalemia, status post Kayexalate. Continue to monitor potassium. 4. Hyponatremia. Continue IV fluids. 5. Hirschsprung disease. 6. Ileostomy. 7. Right chest Port-A-Cath inserted on 11/15/2016. We will continue Protonix for peptic ulcer disease prophylaxis and sequential compression devices fo r deep venous thrombosis prophylaxis. Further recommendations based on clinical course. Plan of care discussed with Dr. Rodriguez. Dictated By: ROMI ESPINO CUTTING MACHINE FIXER for CARLOS RODRIGUEZ MD SR/NTS Conf#: [id number] DID#: [id number]
[2016-11-22 14:10] VITALS: TEMP 98
[2016-11-22 14:51] VITALS: PULSE 117
[2016-11-22 15:39] VITALS: Ht 147.3 cm; Wt 34.0 kg
[2016-11-22 16:03] VITALS: BP 91/54; RESP 18
[2016-11-22 16:48] VITALS: PULSE 111
[2016-11-22] MEDS ORDERED: MAGNESIUM SULFATE 2 GM/50 ML 50 ML IVPB ONE (18:00)
[2016-11-22] MEDS ORDERED: MIDODRINE 2.5 MG TAB PO PRN (18:00)
[2016-11-22] MEDS ORDERED: ALBUTEROL HFA 8 GM INHALER INH PRN (18:00)
[2016-11-22] MEDS ORDERED: FLUTICASONE 0.05% 16 GM NAS SPRAY NASAL PRN (18:00)
[2016-11-22] MEDS ORDERED: hydrOXYzine PAMOATE 25 MG CAP PO PRN (18:00)
--- NOTE | 2016-11-22 18:16 | CONS ---
DATE OF ADMISSION: 11/22/2016 DATE OF CONSULTATION: 11/22/2016 NEPHROLOGY CONSULTATION REASON FOR CONSULTATION: Acute hyperkalemia, hypomagnesemia, severe electrolyte deficiency, acute k idney injury. REFERRING PHYSICIAN: Dr. Paez HISTORY OF PRESENT ILLNESS: This is a 41-year-old female with a past medical history of Hirschsprun g disease, history of previous abdominal surgery for Hirschsprung disease, history of recent admissi on at the [facility] from 10/26/2016 to 11/16/2016 for hyperkalemia. The patient' s course has been complicated during that time for severe hypokalemia with potassium of 2.6. She al so had hyponatremia with sodium of 116 on admission. At that time, she had acute kidney injury with her creatinine bumped up to 2.5. It was improved much better with IV fluid hydration. The patient 's past medical history includes history of colectomy with right-sided ileostomy. The patient was recently discharged on 11/16/2016. The patient presented back to the [facility] Emergency Room with the complaint of nausea, vomiting, and dizziness associated with some generalized weakness. She is noted to have acute kidney injury, and creatinine was elevated. Her potassium was 6.1 on admission. Her creatinine was 1.92. The patient had a right-sided Port-A- Cath placement in the proximal right catheter in place. The patient received multiple treatments for her hyperkalemia in the emergency room including Kayexa late, insulin, and calcium carbonate. Her lactic acid on admission was 4.2, which bumped up to 6.8 today. Renal has been consulted for multiple reasons including acute kidney injury, hyperkalemia, h ypomagnesemia. REVIEW OF SYSTEMS: Positive for nausea, vomiting, generalized weakness, and other review of systems has been obtained and is negative except what is mentioned in the history of present illness. PAST MEDICAL HISTORY: 1. History of Hirschsprung disease. 2. History of abdominal surgeries including the colectomy and currently with right ileostomy for Hi rschsprung disease. 3. History of recent multiple admissions for hyperkalemia to hypokalemia. The patient has been adm itted 5 times since the beginning of July 2016 for her electrolyte abnormalities and hyperkalemia to hypokalemia. PAST SURGICAL HISTORY: History of ileostomy, history of colectomy, history of Port-A-Cath catheter placement. SOCIAL HISTORY: No smoking, alcohol, or recreational drug use. FAMILY HISTORY: Noncontributory. PHYSICAL EXAMINATION: VITAL SIGNS: Temperature 98.2, heart rate 111, respiration 18, blood pressure 91/54, saturation is 100% on room air. GENERAL: Awake, alert, in mild to moderate distress. HEENT: Normal. Oropharynx clear. Dry mucous membrane, no JVD, no lymphadenopathy. LUNGS: Decreased breath sounds at both lung bases. No crackles, no wheezes. HEART: S1, S2, with regular rhythm, no murmur. ABDOMEN: Tender to palpation diffusely with ileostomy in place. EXTREMITIES: Mild to 1+ pitting edema. NEUROLOGICAL: Nonfocal, intact. PSYCHIATRIC: Appropriate affect and mood. LABORATORY DATA/DIAGNOSTIC IMAGING: WBC 11.4, hemoglobin 11, platelet count 396. Sodium 127 on adm ission, potassium 6.1, chloride 96, bicarbonate 19, BUN 84, creatinine 1.9, glucose 159. Lactic aci d 4.2 on admission. LFTs are normal. Albumin 4.4, magnesium 1. Blood glucose 328. IMPRESSION: This is a 41-year-old female who has been recently admitted and [facility]. She presented with possible sepsis and shock. The patient was noted to have acute kidney injury with a creatinine of 1.9 on admission and also had hyperkalemia with potassium of 6.1 . The patient was hyponatremic with a sodium of 127 on admission, and renal has been consulted for: 1. Acute kidney injury, likely secondary to severe prerenal azotemia causing ischemic acute tubular necrosis. 2. Acute hyperkalemia, likely secondary to her distal tubular potassium secreting defect from Hirsc hsprung disease. The patient was also on potassium replacement. 3. Hypomagnesemia with magnesium of 1. 4. 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 5. Severe sepsis with possible shock. PLAN: Thank you, Dr. Paez, for this consultation. 1. I will replace the magnesium with magnesium sulfate 2 grams IV x1. Along with that, the patient 's hyperkalemia has been treated, and currently her potassium is 3.6. Today, her creatinine has bee n improved from 1.95 to 1.15 with IV fluid hydration. Expecting the creatinine to more improved wit h IV fluid hydration. 2. I will give albumin one dose followed by continuation of IV fluids to run at 100 mL per hour. 3. Continue the current medications. I will reassess her tomorrow morning regarding her scheduled replacement of magnesium and phosphorus. She is currently seen in the telemetry floor and will be f ollowed up along with the primary care service. Once again, thank you, Dr. Paez, for this consultation. I will continue to follow this patient along with you. Total time spent in this patient's evaluation, making assessment and plan, explaining to patient, an d communicating with the nursing staff on the floor took more than 90 minutes. Dictated By: ROHAN VELÁZQUEZ MD, KP/CRISTINA Conf#: [id number] DID#: [id number]
[2016-11-22] MEDS ORDERED: ALBUTEROL 18 GM INHALER INH PRN (18:30)
[2016-11-22] MEDS ORDERED: ALBUMIN HUMAN 25% 100 ML IV ONE (18:30)
[2016-11-22 20:00] VITALS: BP 87/51; RESP 15
[2016-11-22 20:11] VITALS: PULSE 118
[2016-11-22] MEDS: POTASSIUM CHLORIDE (SR) 20 MEQ TAB PO SCH (21:00)
[2016-11-23] VITALS (11 sets, daily range): BP systolic 90–106; BP diastolic 50–55; PULSE 92–121; RESP 15–20
[2016-11-23] MEDS: SOD CHLORIDE 0.9% 1,000 ML IV SCH ×2 (09:43→19:28)
[2016-11-23] MEDS: FOLIC ACID 1 MG TAB PO SCH (10:17)
[2016-11-23] MEDS: POTASSIUM CHLORIDE (SR) 20 MEQ TAB PO SCH ×2 (10:17→20:15)
[2016-11-23] MEDS: MAGNESIUM CHLORIDE (SR) 64 MG TAB PO SCH ×2 (10:17→20:15)
--- NOTE | 2016-11-23 11:21 | CONS ---
Date/Time of Note Date/Time of Note DATE: 11/23/16 TIME: 11:19 Assessment/Plan Assessment/Plan Additional Assessment/Plan 1. Acute kidney injury, likely secondary to severe prerenal azotemia causing ischemic acute tubular necrosis. 2. 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 The patient was also on potassium replacement. 3. Hypomagnesemia with magnesium of 1. 4. 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 5. Severe sepsis with possible shock. Plan: mag was replaced yesterday, K has been treated yesterday, no labs today to review today BP stable afebrile, BP stable will follow up Cr was improvign yesterday Consultation Date/Type/Reason Admit Date/Time November 22, 2016 at 06:16 Initial Consult Date November Type of Consultation: NEPHROLOGY Reason for Consultation Hyperkalemia, acute kidney injury,Hypomagnesemia Referring Provider: CARLOS RODRIGUEZ MD 24 HR Interval Summary Free Text/Dictation pt has no labs today, getting IV fluids today, BP stable Exam/Review of Systems Vital Signs Vitals Vital Signs Date Time Temp Pulse Resp B/P Pulse Ox O2 Delivery O2 Flow Rate FiO2 11/23/16 08:15 96 11/23/16 07:33 97.6 18 91/50 100 11/22/16 14:10 Room Air 11/22/16 08:00 3.0 11/22/16 01:38 21 Intake and Output 11/22/16 11/22/16 11/23/16 15:00 23:00 07:00 Intake Total 450 ml Output Total 900 ml 450 ml Balance -900 ml 0 ml Exam GENERAL: Awake, alert, in mild to moderate distress. HEENT: Normal. Oropharynx clear. Dry mucous membrane, no JVD, no lymphadenopathy. LUNGS: Decreased breath sounds at both lung bases. No crackles, no wheezes. HEART: S1, S2, with regular rhythm, no murmur. ABDOMEN: Tender to palpation diffusely with ileostomy in place. EXTREMITIES: Mild to 1+ pitting edema. NEUROLOGICAL: Nonfocal, intact. PSYCHIATRIC: Appropriate affect and mood. Results Result Diagram: 11/21/16 0000 11/22/16 1115 Medications Medications Current Medications Dextrose ONCE PRN IV POC BLOOD GLUCOSE <250 MG/DL Last administered on 01:44; Admin Dose 50 ML; Start 11/22/16 at 01:30 Sodium Chloride 1,000 ml @ 100 mls/hr Q10H IV Last administered on 11/22/16 20:00; Admin Dose 100 MLS/HR; Start 11/22/16 at 06:30 Cefepime HCl 50 ml @ 100 mls/hr Q12 IVPB Last administered on 11/22/16 21:00 ; Admin Dose 100 MLS/HR; Start 11/22/16 at 09:00 Vancomycin HCl (Vancocin) 100 ml @ 100 mls/hr Q48H IVPB ; Start 11/24/16 at 02: 00 Acetaminophen (Tylenol Tab) 500 mg Q4H PRN PO PAIN AND OR ELEVATED TEMP; Start 11/22/16 at 18:00 Fluticasone Propionate (Flonase 0.05% Nasal) 2 spray DAILY PRN NASAL PRN; Start 11/22/16 at 18:00 Folic Acid (Folic Acid) 1 mg DAILY PO Last administered on 11/23/16 10:17; Admin Dose 1 MG; Start 11/23/16 at 09:00 Hydroxyzine Pamoate (Vistaril) 25 mg QHS PRN PO ITCHING; Start 11/22/16 at 18: 00 Magnesium Chloride (Mag 64) 64 mg BID PO Last administered on 11/23/16 10:17; Admin Dose 64 MG; Start 11/23/16 at 09:00 Midodrine (Proamatine) 2.5 mg BID@,17 PRN PO SBP <90; Start 11/22/16 at 18:00 Potassium Chloride (Klor-Con 20) 20 meq BID PO Last administered on 11/23/16 10:17; Admin Dose 20 MEQ; Start 11/22/16 at 21:00 Albuterol (Ventolin Hfa) 2 puff Q4H PRN INH WHEEZING AND SOB; Start 11/22/16 at 18:30 ROHAN VELÁZQUEZ MD November 23, 2016 11:21
--- NOTE | 2016-11-23 11:34 | PN ---
Date/Time of Note Date/Time of Note DATE: 11/23/16 TIME: 11:34 Assessment/Plan VTE Prophylaxis VTE Prophylaxis Intervention: other Lines/Catheters IV Catheter Type (from [facility]): Peripheral IV Urinary Cath still in place: Yes Reason Cath still needed: skin wounds contaminated by urine Assessment/Plan Chief Complaint/Hosp Course 1. Possible sepsis with shock. We are going to continue IV fluids, continue broad-spectrum antibiotics. Follow up on urine and blood cultures. 2. Acute kidney injury. We will continue IV fluids. Dr. Spain will be following in nephrology consultation. Continue to monitor hemoglobin and hematocrit. 3. Acute hyperkalemia, status post Kayexalate. Continue to monitor potassium. 4. Hyponatremia. Continue IV fluids. 5. Hirschsprung disease. 6. Ileostomy. 7. Right chest Port-A-Cath inserted on 11/15/2016. Problems: Subjective 24 Hr Interval Summary Free Text/Dictation Patient has multiple concerns that is not related to her medical problems Exam/Review of Systems Vital Signs Vitals Vital Signs Date Time Temp Pulse Resp B/P Pulse Ox O2 Delivery O2 Flow Rate FiO2 11/23/16 08:15 96 11/23/16 07:33 97.6 18 91/50 100 11/22/16 14:10 Room Air 11/22/16 08:00 3.0 11/22/16 01:38 21 Intake and Output 11/22/16 11/22/16 11/23/16 15:00 23:00 07:00 Intake Total 450 ml Output Total 900 ml 450 ml Balance -900 ml 0 ml Exam Constitutional: well developed Head: atraumatic, normocephalic Neck: supple Respiratory: clear to auscultation Cardiovascular: regular rate and rhythm Gastrointestinal: non-tender, soft Extremities: normal pulses Results Result Diagram: 11/21/16 0000 11/22/16 1115 Medications Medications Current Medications Dextrose ONCE PRN IV POC BLOOD GLUCOSE <250 MG/DL Last administered on 01:44; Admin Dose 50 ML; Start 11/22/16 at 01:30 Sodium Chloride 1,000 ml @ 100 mls/hr Q10H IV Last administered on 11/22/16 20:00; Admin Dose 100 MLS/HR; Start 11/22/16 at 06:30 Cefepime HCl 50 ml @ 100 mls/hr Q12 IVPB Last administered on 11/22/16 21:00 ; Admin Dose 100 MLS/HR; Start 11/22/16 at 09:00 Vancomycin HCl (Vancocin) 100 ml @ 100 mls/hr Q48H IVPB ; Start 11/24/16 at 02: 00 Acetaminophen (Tylenol Tab) 500 mg Q4H PRN PO PAIN AND OR ELEVATED TEMP; Start 11/22/16 at 18:00 Fluticasone Propionate (Flonase 0.05% Nasal) 2 spray DAILY PRN NASAL PRN; Start 11/22/16 at 18:00 Folic Acid (Folic Acid) 1 mg DAILY PO Last administered on 11/23/16 10:17; Admin Dose 1 MG; Start 11/23/16 at 09:00 Hydroxyzine Pamoate (Vistaril) 25 mg QHS PRN PO ITCHING; Start 11/22/16 at 18: 00 Magnesium Chloride (Mag 64) 64 mg BID PO Last administered on 11/23/16 10:17; Admin Dose 64 MG; Start 11/23/16 at 09:00 Midodrine (Proamatine) 2.5 mg BID@17 PRN PO SBP <90; Start 11/22/16 at 18:00 Potassium Chloride (Klor-Con 20) 20 meq BID PO Last administered on 11/23/16 10:17; Admin Dose 20 MEQ; Start 11/22/16 at 21:00 Albuterol (Ventolin Hfa) 2 puff Q4H PRN INH WHEEZING AND SOB; Start 11/22/16 at 18:30 GINGER MOSES November 23, 2016 11:34
[2016-11-23] MEDS: VANCOMYCIN 500MG/NS (PMX) 100 ML IVPB SCH (16:41)
[2016-11-23] MEDS: CEFEPIME 1GM/50 ML (PMX) 50 ML IVPB SCH (20:15)
[2016-11-24] VITALS (12 sets, daily range): BP systolic 102–130; BP diastolic 56–68; PULSE 78–93; RESP 17–77
[2016-11-24] MEDS: FAMOTIDINE 20 MG TAB PO SCH (00:58)
[2016-11-24] MEDS ORDERED: VANCOMYCIN 500MG/NS (PMX) 100 ML IVPB SCH (02:00)
[2016-11-24] MEDS: VANCOMYCIN 500MG/NS (PMX) 100 ML IVPB SCH ×2 (03:08→17:26)
[2016-11-24] MEDS: SOD CHLORIDE 0.9% 1,000 ML IV SCH ×3 (05:43→21:43)
[2016-11-24 08:03] LABS: CREATININE 0.74 mg/dl (0.44-1.00); POTASSIUM 4.4 mmol/L (3.5-5.1)
[2016-11-24] MEDS: CEFEPIME 1GM/50 ML (PMX) 50 ML IVPB SCH ×2 (08:48→21:43)
[2016-11-24] MEDS: POTASSIUM CHLORIDE (SR) 20 MEQ TAB PO SCH ×2 (08:48→21:43)
[2016-11-24] MEDS: MAGNESIUM CHLORIDE (SR) 64 MG TAB PO SCH ×2 (08:48→21:43)
[2016-11-24] MEDS: FOLIC ACID 1 MG TAB PO SCH (08:48)
--- NOTE | 2016-11-24 11:53 | PN ---
Date/Time of Note Date/Time of Note DATE: 11/24/16 TIME: 11:53 Assessment/Plan VTE Prophylaxis VTE Prophylaxis Intervention: other Lines/Catheters IV Catheter Type (from [facility]): Peripheral IV Urinary Cath still in place: Yes Reason Cath still needed: skin wounds contaminated by urine Assessment/Plan Chief Complaint/Hosp Course 1. Possible sepsis with shock. We are going to continue IV fluids, continue broad-spectrum antibiotics. Follow up on urine and blood cultures. 2. Acute kidney injury. We will continue IV fluids. Dr. Spain will be following in nephrology consultation. Continue to monitor hemoglobin and hematocrit. 3. Acute hyperkalemia, status post Kayexalate. Continue to monitor potassium. 4. Hyponatremia. Continue IV fluids. 5. Hirschsprung disease. 6. Ileostomy. 7. Right chest Port-A-Cath inserted on 11/15/2016. Problems: Subjective 24 Hr Interval Summary Free Text/Dictation Patient is doing ok Exam/Review of Systems Vital Signs Vitals Vital Signs Date Time Temp Pulse Resp B/P Pulse Ox O2 Delivery O2 Flow Rate FiO2 11/24/16 08:13 88 11/24/16 07:51 98.1 77 102/58 98 11/22/16 14:10 Room Air 11/22/16 08:00 3.0 11/22/16 01:38 21 Intake and Output 11/23/16 11/23/16 11/24/16 15:00 23:00 07:00 Intake Total 1980 ml 1200 ml Output Total 700 ml 500 ml Balance 1280 ml 700 ml Exam Constitutional: well developed Head: atraumatic, normocephalic Neck: supple Respiratory: diminished breath sounds Cardiovascular: regular rate and rhythm Gastrointestinal: non-tender, soft Extremities: normal pulses Results Result Diagram: 11/21/16 0000 11/24/16 0715 Results 24 hrs Laboratory Tests Test 11/24/16 07:15 Sodium Level 137 Potassium Level 4.4 Chloride Level 100 Carbon Dioxide Level 26 Anion Gap 15 Blood Urea Nitrogen 22 #H Creatinine 0.74 Glucose Level 92 Calcium Level 10.0 Magnesium Level 1.8 Medications Medications Current Medications Dextrose ONCE PRN IV POC BLOOD GLUCOSE <250 MG/DL Last administered on t 01:44; Admin Dose 50 ML; Start 11/22/16 at 01:30 Sodium Chloride 1,000 ml @ 100 mls/hr Q10H IV Last administered on 11/24/16 08:54; Admin Dose 100 MLS/HR; Start 11/22/16 at 06:30 Cefepime HCl (Maxipime 1gm/50 ml (Pmx)) 50 ml @ 100 mls/hr Q12 IVPB Last administered on 11/24/16 08:48; Admin Dose 100 MLS/HR; Start 11/22/16 at 09:00 Acetaminophen (Tylenol Tab) 500 mg Q4H PRN PO PAIN AND OR ELEVATED TEMP Last administered on 11/24/16 02:45; Admin Dose 500 MG; Start 11/22/16 at 18:00 Fluticasone Propionate (Flonase 0.05% Nasal) 2 spray DAILY PRN NASAL PRN; Start 11/22/16 at 18:00 Folic Acid (Folic Acid) 1 mg DAILY PO Last administered on 11/24/16 08:48; Admin Dose 1 MG; Start 11/23/16 at 09:00 Hydroxyzine Pamoate (Vistaril) 25 mg QHS PRN PO ITCHING; Start 11/22/16 at 18: 00 Magnesium Chloride (Mag 64) 64 mg BID PO Last administered on 11/24/16 08:48; Admin Dose 64 MG; Start 11/23/16 at 09:00 Midodrine (Proamatine) 2.5 mg BID@,17 PRN PO SBP <90; Start 11/22/16 at 18:00 Potassium Chloride (Klor-Con 20) 20 meq BID PO Last administered on 11/24/16 08:48; Admin Dose 20 MEQ; Start 11/22/16 at 21:00 Albuterol 2 puff 2 puff Q4H PRN INH WHEEZING AND SOB; Start 11/22/16 at 18:30 Vancomycin HCl (Vancocin) 100 ml @ 100 mls/hr Q12H IVPB Last administered on 03:08; Admin Dose 100 MLS/HR; Start 11/23/16 at 16:00 Simethicone (Mylicon) 80 mg QID PRN GTB DISTENSION/GAS/BLOATING Last administered on 11/24/16 00:58; Admin Dose 80 MG; Start 11/24/16 at 01:00 Famotidine (Pepcid) 20 mg Q24H PO Last administered on 11/24/16t 00:58; Admin Dose 20 MG; Start 11/24/16 at 01:00 GINGER MOSES November 24, 2016 11:53
--- NOTE | 2016-11-24 12:52 | CONS ---
Date/Time of Note Date/Time of Note DATE: 11/24/16 TIME: 12:49 Consult Date/Type/Reason Admit Date/Time November 22, 2016 at 06:16 Initial Consult Date Type of Consultation: NEPHROLOGY Ordering Provider: CARLOS RODRIGUEZ MD Subjective vomited x1, better now, pt has no labs today, getting IV fluids today, BP stable Objective Vital Signs Date Time Temp Pulse Resp B/P Pulse Ox O2 Delivery O2 Flow Rate FiO2 11/24/16 12:15 97.8 95 19 114/60 100 11/22/16 14:10 Room Air 11/22/16 08:00 3.0 11/22/16 01:38 21 Intake and Output 11/23/16 11/23/16 11/24/16 15:00 23:00 07:00 Intake Total 1980 ml 1200 ml Output Total 700 ml 500 ml Balance 1280 ml 700 ml Exam GENERAL: Awake, alert, in no acute distress. HEENT: Normal. Oropharynx clear. Dry mucous membrane, no JVD, no lymphadenopathy. LUNGS: Decreased breath sounds at both lung bases. No crackles, no wheezes. HEART: S1, S2, with regular rhythm, no murmur. ABDOMEN: Tender to palpation diffusely with ileostomy in place. EXTREMITIES: Mild to 1+ pitting edema. NEUROLOGICAL: Nonfocal, intact. PSYCHIATRIC: Appropriate affect and mood. Results/Medications Result Diagram: 11/21/16 0000 11/24/16 0715 Results 24 hrs Laboratory Tests Test 11/24/16 07:15 Sodium Level 137 Potassium Level 4.4 Chloride Level 100 Carbon Dioxide Level 26 Anion Gap 15 Blood Urea Nitrogen 22 #H Creatinine 0.74 Glucose Level 92 Calcium Level 10.0 Magnesium Level 1.8 Medications Current Medications Dextrose ONCE PRN IV POC BLOOD GLUCOSE <250 MG/DL Last administered on 01:44; Admin Dose 50 ML; Start 11/22/16 at 01:30 Sodium Chloride 1,000 ml @ 100 mls/hr Q10H IV Last administered on 11/24/16 08:54; Admin Dose 100 MLS/HR; Start 11/22/16 at 06:30 Cefepime HCl (Maxipime 1gm/50 ml (Pmx)) 50 ml @ 100 mls/hr Q12 IVPB Last administered on 5/14/17at 08:48; Admin Dose 100 MLS/HR; Start 11/22/16 at 09:00 Acetaminophen (Tylenol Tab) 500 mg Q4H PRN PO PAIN AND OR ELEVATED TEMP Last administered on 11/24/16 02:45; Admin Dose 500 MG; Start 11/22/16 at 18:00 Fluticasone Propionate (Flonase 0.05% Nasal) 2 spray DAILY PRN NASAL PRN; Start 11/22/16 at 18:00 Folic Acid (Folic Acid) 1 mg DAILY PO Last administered on 11/24/16 08:48; Admin Dose 1 MG; Start 11/23/16 at 09:00 Hydroxyzine Pamoate (Vistaril) 25 mg QHS PRN PO ITCHING; Start 11/22/16 at 18: 00 Magnesium Chloride (Mag 64) 64 mg BID PO Last administered on 11/24/16 08:48; Admin Dose 64 MG; Start 11/23/16 at 09:00 Midodrine (Proamatine) 2.5 mg BID@,17 PRN PO SBP <90; Start 11/22/16 at 18:00 Potassium Chloride (Klor-Con 20) 20 meq BID PO Last administered on 11/24/16 08:48; Admin Dose 20 MEQ; Start 11/22/16 at 21:00 Albuterol 2 puff 2 puff Q4H PRN INH WHEEZING AND SOB; Start 11/22/16 at 18:30 Vancomycin HCl (Vancocin) 100 ml @ 100 mls/hr Q12H IVPB Last administered on 03:08; Admin Dose 100 MLS/HR; Start 11/23/16 at 16:00 Simethicone (Mylicon) 80 mg QID PRN GTB DISTENSION/GAS/BLOATING Last administered on 11/24/16 00:58; Admin Dose 80 MG; Start 11/24/16 at 01:00 Famotidine (Pepcid) 20 mg Q24H PO Last administered on 11/24/16 00:58; Admin Dose 20 MG; Start 11/24/16 at 01:00 Assessment/Plan Additional Assessment/Plan 1. Acute kidney injury, likely secondary to severe prerenal azotemia causing ischemic acute tubular necrosis. 2. Acute hyperkalemia, likely secondary to her distal tubular potassium secreting defect from Hirschsprung disease- resolved 3. Hypomagnesemia - resolved 4. 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 5. Severe sepsis with possible shock. Plan: mag was replaced yesterday, K has been treated yesterday, no labs today to review today BP stable afebrile, BP stable will follow up Cr was improving as yesterday Further recommendations depend upon patient's clinical course. Total time spent is 30 mins in reviewing patients chart/DW Dr Lindsey Alvarez;/staff/patient. DEVENDRA GOMES November 24, 2016 12:52
[2016-11-25] VITALS (12 sets, daily range): BP systolic 85–110; BP diastolic 52–62; PULSE 72–112; RESP 18–20
[2016-11-25] MEDS: FAMOTIDINE 20 MG TAB PO SCH (01:55)
[2016-11-25 03:49] LABS: ADD SCAN DIFF NO
[2016-11-25 04:08] LABS: ABNORMAL IP MESSAGE 1; BASOPHILS % 0.6 % (0.0-2.0); EOSINOPHILS # 0.6 10^3/ul (0.0-0.5); EOSINOPHILS % 10.8 % (0.0-7.0); HEMATOCRIT 31.8 % (37.0-47.0); HEMOGLOBIN 10.5 g/dl (12.0-16.0); LYMPHOCYTES # 0.6 10^3/ul (0.8-2.9); MEAN CORPUSCULAR HEMOGLOBIN 31.8 pg (29.0-33.0); MEAN CORPUSCULAR VOLUME 96.4 fl (82.0-101.0); MEAN PLATELET VOLUME 9.9 fl (7.4-10.4); MONOCYTE # 0.4 10^3/ul (0.3-0.9); MONOCYTES % 8.4 % (0.0-11.0); NEUTROPHIL # 3.6 10^3/ul (1.6-7.5); PLATELET COUNT 339 10^3/UL (140-415); RED CELL DISTRIBUTION WIDTH 13.2 % (11.5-14.5); WHITE BLOOD COUNT 5.3 10^3/ul (4.8-10.8)
[2016-11-25 04:32] LABS: POTASSIUM 3.3 mmol/L (3.5-5.1)
[2016-11-25 04:35] LABS: CREATININE 0.72 mg/dl (0.44-1.00)
[2016-11-25 04:36] LABS: CALCIUM 10.1 mg/dl (8.4-10.2)
[2016-11-25] MEDS: VANCOMYCIN 500MG/NS (PMX) 100 ML IVPB SCH ×2 (05:04→16:44)
[2016-11-25] MEDS: CEFEPIME 1GM/50 ML (PMX) 50 ML IVPB SCH ×2 (08:32→21:00)
[2016-11-25] MEDS: FOLIC ACID 1 MG TAB PO SCH (08:33)
[2016-11-25] MEDS: MAGNESIUM CHLORIDE (SR) 64 MG TAB PO SCH ×2 (08:33→21:14)
[2016-11-25] MEDS: POTASSIUM CHLORIDE (SR) 20 MEQ TAB PO SCH ×2 (08:34→21:14)
--- NOTE | 2016-11-25 13:56 | CONS ---
Date/Time of Note Date/Time of Note DATE: 11/25/16 TIME: 13:54 Assessment/Plan Assessment/Plan Additional Assessment/Plan 1. Acute kidney injury, likely secondary to severe prerenal azotemia causing ischemic acute tubular necrosis. 2. 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 The patient was also on potassium replacement. 3. Hypomagnesemia with magnesium of 1. 4. 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 5. Severe sepsis with possible shock. Plan: K low, On PO replacement, will give IV KCL 20mEQ x 1 dose today will follow up Consultation Date/Type/Reason Admit Date/Time November 22, 2016 at 06:16 Initial Consult Date November Type of Consultation: NEPHROLOGY Referring Provider: CARLOS RODRIGUEZ MD 24 HR Interval Summary Free Text/Dictation K low, BP stable, Mag normal Exam/Review of Systems Vital Signs Vitals Vital Signs Date Time Temp Pulse Resp B/P Pulse Ox O2 Delivery O2 Flow Rate FiO2 11/25/16 12:04 112 11/25/16 11:52 98.4 20 96/62 100 11/22/16 14:10 Room Air 11/22/16 08:00 3.0 11/22/16 01:38 21 Intake and Output 11/24/16 11/24/16 11/25/16 15:00 23:00 07:00 Intake Total 50 ml 1200 ml 550 ml Output Total 600 ml 2 ml Balance 50 ml 600 ml 548 ml Exam GENERAL: Awake, alert, in mild to moderate distress. HEENT: Normal. Oropharynx clear. Dry mucous membrane, no JVD, no lymphadenopathy. LUNGS: Decreased breath sounds at both lung bases. No crackles, no wheezes. HEART: S1, S2, with regular rhythm, no murmur. ABDOMEN: Tender to palpation diffusely with ileostomy in place. EXTREMITIES: Mild to 1+ pitting edema. NEUROLOGICAL: Nonfocal, intact. PSYCHIATRIC: Appropriate affect and mood. Results Result Diagram: 11/25/16 0300 11/25/16 0300 Results 24 hrs Laboratory Tests Test 11/25/16 03:00 White Blood Count 5.3 # Red Blood Count 3.30 L Hemoglobin 10.5 L Hematocrit 31.8 L Mean Corpuscular Volume 96.4 Mean Corpuscular Hemoglobin 31.8 Mean Corpuscular Hemoglobin Concent 33.0 Red Cell Distribution Width 13.2 Platelet Count 339 Mean Platelet Volume 9.9 Neutrophils % 69.0 Lymphocytes % 11.0 L Monocytes % 8.4 Eosinophils % 10.8 H Basophils % 0.6 Nucleated Red Blood Cells % 0.0 Neutrophils # 3.6 Lymphocytes # 0.6 L Monocytes # 0.4 Eosinophils # 0.6 H Basophils # 0.0 Nucleated Red Blood Cells # 0.0 Sodium Level 139 Potassium Level 3.3 L Chloride Level 102 Carbon Dioxide Level 22 Anion Gap 18 H Blood Urea Nitrogen 17 Creatinine 0.72 Glucose Level 129 Calcium Level 10.1 Vancomycin Level Trough 14.6 Medications Medications Current Medications Dextrose ONCE PRN IV POC BLOOD GLUCOSE <250 MG/DL Last administered on 01:44; Admin Dose 50 ML; Start 11/22/16 at 01:30 Sodium Chloride 1,000 ml @ 100 mls/hr Q10H IV Last administered on 11/24/16 21:43; Admin Dose 100 MLS/HR; Start 11/22/16 at 06:30 Cefepime HCl (Maxipime 1gm/50 ml (Pmx)) 50 ml @ 100 mls/hr Q12 IVPB Last administered on 11/25/16 08:32; Admin Dose 100 MLS/HR; Start 11/22/16 at 09:00 Acetaminophen (Tylenol Tab) 500 mg Q4H PRN PO PAIN AND OR ELEVATED TEMP Last administered on 11/24/16 02:45; Admin Dose 500 MG; Start 11/22/16 at 18:00 Fluticasone Propionate (Flonase 0.05% Nasal) 2 spray DAILY PRN NASAL PRN; Start 11/22/16 at 18:00 Folic Acid (Folic Acid) 1 mg DAILY PO Last administered on 11/25/16 08:33; Admin Dose 1 MG; Start 11/23/16 at 09:00 Hydroxyzine Pamoate (Vistaril) 25 mg QHS PRN PO ITCHING Last administered on 21:43; Admin Dose 25 MG; Start 11/22/16 at 18:00 Magnesium Chloride (Mag 64) 64 mg BID PO Last administered on 11/25/16 08:33; Admin Dose 64 MG; Start 11/23/16 at 09:00 Midodrine (Proamatine) 2.5 mg BID@09,17 PRN PO SBP <90; Start 11/22/16 at 18:00 Potassium Chloride (Klor-Con 20) 20 meq BID PO Last administered on 11/25/16 08:34; Admin Dose 20 MEQ; Start 11/22/16 at 21:00 Albuterol 2 puff 2 puff Q4H PRN INH WHEEZING AND SOB; Start 11/22/16 at 18:30 Vancomycin HCl (Vancocin) 100 ml @ 100 mls/hr Q12H IVPB Last administered on 05:04; Admin Dose 100 MLS/HR; Start 11/23/16 at 16:00 Simethicone (Mylicon) 80 mg QID PRN GTB DISTENSION/GAS/BLOATING Last administered on 11/24/16 13:20; Admin Dose 80 MG; Start 11/24/16 at 01:00 Famotidine (Pepcid) 20 mg Q24H PO Last administered on 11/25/16 01:55; Admin Dose 20 MG; Start 11/24/16 at 01:00 ROHAN VELÁZQUEZ MD November 25, 2016 13:56
[2016-11-25] MEDS: SOD CHLORIDE 0.9% 1,000 ML IV SCH ×2 (14:19→21:43)
--- NOTE | 2016-11-25 15:17 | PN ---
Date/Time of Note Date/Time of Note DATE: 11/25/16 TIME: 15:13 Assessment/Plan VTE Prophylaxis VTE Prophylaxis Intervention: SCD's Lines/Catheters [facility]from [facility] [place] Urinary Cath still in place: Yes Reason Cath still needed: urinary retention Assessment/Plan Chief Complaint/Hosp Course SESSMENT AND PLAN: 1. Possible sepsis with shock. Continue IV fluids, continue broad-spectrum antibiotics. Follow up on final urine and blood cultures. 2. Acute kidney injury. Continue IV fluids. Dr. Spain is following in nephrology consultation. Continue to monitor hemoglobin and hematocrit. 3. Acute hyperkalemia, status post Kayexalate. Continue to monitor potassium. 4. Hyponatremia. Continue IV fluids. 5. Hirschsprung disease. 6. Ileostomy. 7. Right chest Port-A-Cath inserted on 11/15/2016. Continue Protonix for peptic ulcer disease prophylaxis and sequential compression devices for deep venous thrombosis prophylaxis. Further recommendations based on clinical course. Plan of care discussed with Dr. Paez. Problems: Subjective 24 Hr Interval Summary Free Text/Dictation Patient denies fever denies nausea vomiting, remains slightly hypotensive. Exam/Review of Systems Vital Signs Vitals Vital Signs Date Time Temp Pulse Resp B/P Pulse Ox O2 Delivery O2 Flow Rate FiO2 11/25/16 12:04 112 11/25/16 11:52 98.4 20 96/62 100 11/22/16 14:10 Room Air 11/22/16 08:00 3.0 11/22/16 01:38 21 Intake and Output 11/24/16 11/24/16 11/25/16 15:00 23:00 07:00 Intake Total 50 ml 1200 ml 550 ml Output Total 600 ml 2 ml Balance 50 ml 600 ml 548 ml Exam GENERAL: Well-developed, tiny frame female, currently is awake, alert. HEENT: Head is atraumatic, normocephalic. Pupils equal, round, reactive to light and accommodation. Oral mucosa is pink and moist. NECK: Supple, no cervical lymphadenopathy, no thyromegaly. CHEST: Lungs clear bilaterally. There is no rhonchi, wheezes, rales noted. The patient has a right chest Port-A-Cath. CARDIOVASCULAR: The patient is slightly tachycardic. Normal S1, S2. No murmurs, gallops, clicks, rubs noted. ABDOMEN: Flat, soft, nondistended, nontender. The patient has a right lower quadrant ileostomy. SKIN: There is no rash, petechiae noted. EXTREMITIES: There is no edema, clubbing, cyanosis. Pulses equal bilaterally 2 +. GENITOURINARY: The patient has a Car catheter with blood-tinged urine. NEUROLOGIC: The patient is awake, alert and oriented, no focal deficits noted. Results Result Diagram: 11/25/16 0300 11/25/16 0300 Results 24 hrs Laboratory Tests Test 11/25/16 03:00 White Blood Count 5.3 # Red Blood Count 3.30 L Hemoglobin 10.5 L Hematocrit 31.8 L Mean Corpuscular Volume 96.4 Mean Corpuscular Hemoglobin 31.8 Mean Corpuscular Hemoglobin Concent 33.0 Red Cell Distribution Width 13.2 Platelet Count 339 Mean Platelet Volume 9.9 Neutrophils % 69.0 Lymphocytes % 11.0 L Monocytes % 8.4 Eosinophils % 10.8 H Basophils % 0.6 Nucleated Red Blood Cells % 0.0 Neutrophils # 3.6 Lymphocytes # 0.6 L Monocytes # 0.4 Eosinophils # 0.6 H Basophils # 0.0 Nucleated Red Blood Cells # 0.0 Sodium Level 139 Potassium Level 3.3 L Chloride Level 102 Carbon Dioxide Level 22 Anion Gap 18 H Blood Urea Nitrogen 17 Creatinine 0.72 Glucose Level 129 Calcium Level 10.1 Vancomycin Level Trough 14.6 Medications Medications Current Medications Dextrose ONCE PRN IV POC BLOOD GLUCOSE <250 MG/DL Last administered on 01:44; Admin Dose 50 ML; Start 11/22/16 at 01:30 Sodium Chloride 1,000 ml @ 100 mls/hr Q10H IV Last administered on 11/25/16 14:19; Admin Dose 100 MLS/HR; Start 11/22/16 at 06:30 Cefepime HCl (Maxipime 1gm/50 ml (Pmx)) 50 ml @ 100 mls/hr Q12 IVPB Last administered on 11/25/16 08:32; Admin Dose 100 MLS/HR; Start 11/22/16 at 09:00 Acetaminophen (Tylenol Tab) 500 mg Q4H PRN PO PAIN AND OR ELEVATED TEMP Last administered on 11/24/16 02:45; Admin Dose 500 MG; Start 11/22/16 at 18:00 Fluticasone Propionate (Flonase 0.05% Nasal) 2 spray DAILY PRN NASAL PRN; Start 11/22/16 at 18:00 Folic Acid (Folic Acid) 1 mg DAILY PO Last administered on 11/25/16 08:33; Admin Dose 1 MG; Start 11/23/16 at 09:00 Hydroxyzine Pamoate (Vistaril) 25 mg QHS PRN PO ITCHING Last administered on 21:43; Admin Dose 25 MG; Start 11/22/16 at 18:00 Magnesium Chloride (Mag 64) 64 mg BID PO Last administered on 11/25/16 08:33; Admin Dose 64 MG; Start 11/23/16 at 09:00 Midodrine (Proamatine) 2.5 mg BID@09,17 PRN PO SBP <90; Start 11/22/16 at 18:00 Potassium Chloride (Klor-Con 20) 20 meq BID PO Last administered on 11/25/16 08:34; Admin Dose 20 MEQ; Start 11/22/16 at 21:00 Albuterol 2 puff 2 puff Q4H PRN INH WHEEZING AND SOB; Start 11/22/16 at 18:30 Vancomycin HCl (Vancocin) 100 ml @ 100 mls/hr Q12H IVPB Last administered on 05:04; Admin Dose 100 MLS/HR; Start 11/23/16 at 16:00 Simethicone (Mylicon) 80 mg QID PRN GTB DISTENSION/GAS/BLOATING Last administered on 11/24/16 13:20; Admin Dose 80 MG; Start 11/24/16 at 01:00 Famotidine 20 mg 20 mg Q24H PO Last administered on 11/25/16 01:55; Admin Dose 20 MG; Start 11/24/16 at 01:00 Potassium Chloride/Sodium Chloride (KCl/NS) 110 ml @ 55 mls/hr ONCE ONCE IVPB Last administered on 11/25/16 14:34; Admin Dose 55 MLS/HR; Start 11/25/16 at 16:00; Stop 11/25/16 at 17:59 ROMI ESPINO November 25, 2016 15:17
[2016-11-25] MEDS ORDERED: POTASSIUM CHLORIDE 20 MEQ in SOD CHLORIDE 0.9% 100 ML IVPB ONE (16:00)
[2016-11-26] VITALS (13 sets, daily range): BP systolic 88–115; BP diastolic 50–95; PULSE 86–96; RESP 19–24
[2016-11-26] MEDS: FAMOTIDINE 20 MG TAB PO SCH (00:23)
[2016-11-26] MEDS: VANCOMYCIN 500MG/NS (PMX) 100 ML IVPB SCH ×2 (04:00→16:19)
[2016-11-26 07:25] LABS: ADD SCAN DIFF NO
[2016-11-26 07:29] LABS: BASOPHIL # 0.1 10^3/ul (0.0-0.1); EOSINOPHILS # 0.6 10^3/ul (0.0-0.5); EOSINOPHILS % 12.7 % (0.0-7.0); HEMATOCRIT 34.2 % (37.0-47.0); HEMOGLOBIN 10.9 g/dl (12.0-16.0); LYMPHOCYTES # 0.8 10^3/ul (0.8-2.9); LYMPHOCYTES % 15.4 % (15.0-51.0); MEAN CORPUSCULAR HEMOGLOBIN 31.1 pg (29.0-33.0); MEAN CORPUSCULAR HGB CONC 31.9 g/dl (32.0-37.0); MEAN CORPUSCULAR VOLUME 97.4 fl (82.0-101.0); MEAN PLATELET VOLUME 9.6 fl (7.4-10.4); MONOCYTE # 0.3 10^3/ul (0.3-0.9); MONOCYTES % 5.7 % (0.0-11.0); NEUTROPHIL # 3.2 10^3/ul (1.6-7.5); NEUTROPHILS % 64.8 % (39.0-77.0); PLATELET COUNT 369 10^3/UL (140-415); RED BLOOD COUNT 3.51 10^6/ul (4.20-5.40); RED CELL DISTRIBUTION WIDTH 13.3 % (11.5-14.5); WHITE BLOOD COUNT 4.9 10^3/ul (4.8-10.8)
[2016-11-26] MEDS: SOD CHLORIDE 0.9% 1,000 ML IV SCH ×2 (07:43→17:43)
[2016-11-26 07:47] LABS: POTASSIUM 4.2 mmol/L (3.5-5.1)
[2016-11-26 07:50] LABS: CREATININE 0.75 mg/dl (0.44-1.00)
[2016-11-26 07:51] LABS: CALCIUM 9.6 mg/dl (8.4-10.2)
[2016-11-26] MEDS: POTASSIUM CHLORIDE (SR) 20 MEQ TAB PO SCH ×2 (08:41→21:58)
[2016-11-26] MEDS: FOLIC ACID 1 MG TAB PO SCH (08:41)
[2016-11-26] MEDS: CEFEPIME 1GM/50 ML (PMX) 50 ML IVPB SCH ×2 (08:41→21:57)
[2016-11-26] MEDS: MAGNESIUM CHLORIDE (SR) 64 MG TAB PO SCH ×2 (08:41→21:58)
--- NOTE | 2016-11-26 12:42 | CONS ---
Date/Time of Note Date/Time of Note DATE: 11/26/16 TIME: 12:40 Assessment/Plan Assessment/Plan Additional Assessment/Plan 1. Acute kidney injury, likely secondary to severe prerenal azotemia causing ischemic acute tubular necrosis. 2. 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 The patient was also on potassium replacement. 3. Hypomagnesemia with magnesium of 1. 4. 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 5. Severe sepsis with possible shock. Plan: continue current PO K replacement, other electrolytes stable will follow up pt can go home with Klor-Con 20mEQ PO daily Consultation Date/Type/Reason Admit Date/Time November 22, 2016 at 06:16 Initial Consult Date November Type of Consultation: NEPHROLOGY Referring Provider: CARLOS RODRIGUEZ MD 24 HR Interval Summary Free Text/Dictation no acute events, K today normal, other electrolytes stable Exam/Review of Systems Vital Signs Vitals Vital Signs Date Time Temp Pulse Resp B/P Pulse Ox O2 Delivery O2 Flow Rate FiO2 11/26/16 12:31 97.6 94 20 99/50 100 11/22/16 14:10 Room Air 11/22/16 08:00 3.0 Intake and Output 11/25/16 11/25/16 11/26/16 15:00 23:00 07:00 Intake Total 1550 ml 1300 ml Output Total 650 ml Balance 1550 ml 650 ml Exam GENERAL: Awake, alert, in mild to moderate distress. HEENT: Normal. Oropharynx clear. Dry mucous membrane, no JVD, no lymphadenopathy. LUNGS: Decreased breath sounds at both lung bases. No crackles, no wheezes. HEART: S1, S2, with regular rhythm, no murmur. ABDOMEN: Tender to palpation diffusely with ileostomy in place. EXTREMITIES: Mild to 1+ pitting edema. NEUROLOGICAL: Nonfocal, intact. PSYCHIATRIC: Appropriate affect and mood. Results Result Diagram: 11/26/16 0650 11/26/16 0650 Results 24 hrs Laboratory Tests Test 11/26/16 06:50 White Blood Count 4.9 Red Blood Count 3.51 L Hemoglobin 10.9 L Hematocrit 34.2 L Mean Corpuscular Volume 97.4 Mean Corpuscular Hemoglobin 31.1 Mean Corpuscular Hemoglobin Concent 31.9 L Red Cell Distribution Width 13.3 Platelet Count 369 Mean Platelet Volume 9.6 Neutrophils % 64.8 Lymphocytes % 15.4 Monocytes % 5.7 Eosinophils % 12.7 H Basophils % 1.0 Nucleated Red Blood Cells % 0.0 Neutrophils # 3.2 Lymphocytes # 0.8 Monocytes # 0.3 Eosinophils # 0.6 H Basophils # 0.1 Nucleated Red Blood Cells # 0.0 Sodium Level 142 Potassium Level 4.2 Chloride Level 103 Carbon Dioxide Level 27 Anion Gap 16 Blood Urea Nitrogen 23 H Creatinine 0.75 Glucose Level 85 # Calcium Level 9.6 Medications Medications Current Medications Dextrose ONCE PRN IV POC BLOOD GLUCOSE <250 MG/DL Last administered on 01:44; Admin Dose 50 ML; Start 11/22/16 at 01:30 Sodium Chloride 1,000 ml @ 100 mls/hr Q10H IV Last administered on 11/25/16 21:43; Admin Dose 100 MLS/HR; Start 11/22/16 at 06:30 Cefepime HCl (Maxipime 1gm/50 ml (Pmx)) 50 ml @ 100 mls/hr Q12 IVPB Last administered on 11/26/16 08:41; Admin Dose 100 MLS/HR; Start 11/22/16 at 09:00 Acetaminophen (Tylenol Tab) 500 mg Q4H PRN PO PAIN AND OR ELEVATED TEMP Last administered on 11/24/16 02:45; Admin Dose 500 MG; Start 11/22/16 at 18:00 Fluticasone Propionate (Flonase 0.05% Nasal) 2 spray DAILY PRN NASAL PRN; Start 11/22/16 at 18:00 Folic Acid (Folic Acid) 1 mg DAILY PO Last administered on 11/26/16 08:41; Admin Dose 1 MG; Start 11/23/16 at 09:00 Hydroxyzine Pamoate (Vistaril) 25 mg QHS PRN PO ITCHING Last administered on 21:43; Admin Dose 25 MG; Start 11/22/16 at 18:00 Magnesium Chloride (Mag 64) 64 mg BID PO Last administered on 11/26/16 08:41; Admin Dose 64 MG; Start 11/23/16 at 09:00 Midodrine (Proamatine) 2.5 mg BID@,17 PRN PO SBP <90; Start 11/22/16 at 18:00 Potassium Chloride (Klor-Con 20) 20 meq BID PO Last administered on 11/26/16 08:41; Admin Dose 20 MEQ; Start 11/22/16 at 21:00 Albuterol 2 puff 2 puff Q4H PRN INH WHEEZING AND SOB; Start 11/22/16 at 18:30 Vancomycin HCl (Vancocin) 100 ml @ 100 mls/hr Q12H IVPB Last administered on 04:00; Admin Dose 100 MLS/HR; Start 11/23/16 at 16:00 Simethicone (Mylicon) 80 mg QID PRN GTB DISTENSION/GAS/BLOATING Last administered on 11/24/16 13:20; Admin Dose 80 MG; Start 11/24/16 at 01:00 Famotidine (Pepcid) 20 mg Q24H PO Last administered on 11/26/16 00:23; Admin Dose 20 MG; Start 11/24/16 at 01:00 ROHAN VELÁZQUEZ MD November 26, 2016 12:42
--- NOTE | 2016-11-26 12:49 | PN ---
Date/Time of Note Date/Time of Note DATE: 11/26/16 TIME: 12:48 Assessment/Plan VTE Prophylaxis VTE Prophylaxis Intervention: SCD's Lines/Catheters IV Catheter Type (from [facility]): Peripheral IV Urinary Cath still in place: No Assessment/Plan Chief Complaint/Hosp Course SESSMENT AND PLAN: 1. Possible sepsis with shock. Continue IV fluids, continue broad-spectrum antibiotics. Follow up on final urine and blood cultures. 2. Acute kidney injury. Continue IV fluids. Dr. Spain is following in nephrology consultation. Continue to monitor hemoglobin and hematocrit. 3. Acute hyperkalemia, status post Kayexalate. Continue to monitor potassium. 4. Hyponatremia. Continue IV fluids. 5. Hirschsprung disease. 6. Ileostomy. 7. Right chest Port-A-Cath inserted on 11/15/2016. Continue Protonix for peptic ulcer disease prophylaxis and sequential compression devices for deep venous thrombosis prophylaxis. Further recommendations based on clinical course. Plan of care discussed with Dr. Paez. Problems: Subjective 24 Hr Interval Summary Free Text/Dictation Patient remains afebrile denies any nausea vomiting. Exam/Review of Systems Vital Signs Vitals Vital Signs Date Time Temp Pulse Resp B/P Pulse Ox O2 Delivery O2 Flow Rate FiO2 11/26/16 12:31 97.6 94 20 99/50 100 11/22/16 14:10 Room Air 11/22/16 08:00 3.0 Intake and Output 11/25/16 11/25/16 11/26/16 15:00 23:00 07:00 Intake Total 1550 ml 1300 ml Output Total 650 ml Balance 1550 ml 650 ml Exam GENERAL: Well-developed, tiny frame female, currently is awake, alert. HEENT: Head is atraumatic, normocephalic. Pupils equal, round, reactive to light and accommodation. Oral mucosa is pink and moist. NECK: Supple, no cervical lymphadenopathy, no thyromegaly. CHEST: Lungs clear bilaterally. There is no rhonchi, wheezes, rales noted. The patient has a right chest Port-A-Cath. CARDIOVASCULAR: The patient is slightly tachycardic. Normal S1, S2. No murmurs, gallops, clicks, rubs noted. ABDOMEN: Flat, soft, nondistended, nontender. The patient has a right lower quadrant ileostomy. SKIN: There is no rash, petechiae noted. EXTREMITIES: There is no edema, clubbing, cyanosis. Pulses equal bilaterally 2 +. GENITOURINARY: The patient has a Car catheter with blood-tinged urine. NEUROLOGIC: The patient is awake, alert and oriented, no focal deficits noted. Results Result Diagram: 11/26/16 0650 11/26/16 0650 Results 24 hrs Laboratory Tests Test 11/26/16 06:50 White Blood Count 4.9 Red Blood Count 3.51 L Hemoglobin 10.9 L Hematocrit 34.2 L Mean Corpuscular Volume 97.4 Mean Corpuscular Hemoglobin 31.1 Mean Corpuscular Hemoglobin Concent 31.9 L Red Cell Distribution Width 13.3 Platelet Count 369 Mean Platelet Volume 9.6 Neutrophils % 64.8 Lymphocytes % 15.4 Monocytes % 5.7 Eosinophils % 12.7 H Basophils % 1.0 Nucleated Red Blood Cells % 0.0 Neutrophils # 3.2 Lymphocytes # 0.8 Monocytes # 0.3 Eosinophils # 0.6 H Basophils # 0.1 Nucleated Red Blood Cells # 0.0 Sodium Level 142 Potassium Level 4.2 Chloride Level 103 Carbon Dioxide Level 27 Anion Gap 16 Blood Urea Nitrogen 23 H Creatinine 0.75 Glucose Level 85 # Calcium Level 9.6 Medications Medications Current Medications Dextrose ONCE PRN IV POC BLOOD GLUCOSE <250 MG/DL Last administered on 01:44; Admin Dose 50 ML; Start 11/22/16 at 01:30 Sodium Chloride 1,000 ml @ 100 mls/hr Q10H IV Last administered on 11/25/16 21:43; Admin Dose 100 MLS/HR; Start 11/22/16 at 06:30 Cefepime HCl (Maxipime 1gm/50 ml (Pmx)) 50 ml @ 100 mls/hr Q12 IVPB Last administered on 11/26/16 08:41; Admin Dose 100 MLS/HR; Start 11/22/16 at 09:00 Acetaminophen (Tylenol Tab) 500 mg Q4H PRN PO PAIN AND OR ELEVATED TEMP Last administered on 11/24/16 02:45; Admin Dose 500 MG; Start 11/22/16 at 18:00 Fluticasone Propionate (Flonase 0.05% Nasal) 2 spray DAILY PRN NASAL PRN; Start 11/22/16 at 18:00 Folic Acid (Folic Acid) 1 mg DAILY PO Last administered on 11/26/16 08:41; Admin Dose 1 MG; Start 11/23/16 at 09:00 Hydroxyzine Pamoate (Vistaril) 25 mg QHS PRN PO ITCHING Last administered on 21:43; Admin Dose 25 MG; Start 11/22/16 at 18:00 Magnesium Chloride (Mag 64) 64 mg BID PO Last administered on 11/26/16 08:41; Admin Dose 64 MG; Start 11/23/16 at 09:00 Midodrine (Proamatine) 2.5 mg BID@,17 PRN PO SBP <90; Start 11/22/16 at 18:00 Potassium Chloride (Klor-Con 20) 20 meq BID PO Last administered on 11/26/16 08:41; Admin Dose 20 MEQ; Start 11/22/16 at 21:00 Albuterol 2 puff 2 puff Q4H PRN INH WHEEZING AND SOB; Start 11/22/16 at 18:30 Vancomycin HCl (Vancocin) 100 ml @ 100 mls/hr Q12H IVPB Last administered on 04:00; Admin Dose 100 MLS/HR; Start 11/23/16 at 16:00 Simethicone (Mylicon) 80 mg QID PRN GTB DISTENSION/GAS/BLOATING Last administered on 11/24/16 13:20; Admin Dose 80 MG; Start 11/24/16 at 01:00 Famotidine (Pepcid) 20 mg Q24H PO Last administered on 11/26/16 00:23; Admin Dose 20 MG; Start 11/24/16 at 01:00 ROMI ESPINO November 26, 2016 12:49
[2016-11-27] VITALS (12 sets, daily range): BP systolic 87–94; BP diastolic 50–58; PULSE 84–99; RESP 18–20
[2016-11-27] MEDS: FAMOTIDINE 20 MG TAB PO SCH (00:24)
[2016-11-27] MEDS: SOD CHLORIDE 0.9% 1,000 ML IV SCH ×3 (03:22→23:43)
[2016-11-27] MEDS: VANCOMYCIN 500MG/NS (PMX) 100 ML IVPB SCH ×2 (04:43→17:57)
[2016-11-27] MEDS: FOLIC ACID 1 MG TAB PO SCH (08:52)
[2016-11-27] MEDS: CEFEPIME 1GM/50 ML (PMX) 50 ML IVPB SCH ×2 (08:52→21:50)
[2016-11-27] MEDS: MAGNESIUM CHLORIDE (SR) 64 MG TAB PO SCH ×2 (08:52→21:51)
[2016-11-27] MEDS: POTASSIUM CHLORIDE (SR) 20 MEQ TAB PO SCH ×2 (08:52→21:51)
--- NOTE | 2016-11-27 14:18 | PN ---
Date/Time of Note Date/Time of Note DATE: 11/27/16 TIME: 14:04 Assessment/Plan VTE Prophylaxis VTE Prophylaxis Intervention: SCD's Lines/Catheters IV Catheter Type (from [facility]): Peripheral IV Urinary Cath still in place: No Assessment/Plan Chief Complaint/Hosp Course ASESSMENT AND PLAN: 1. Possible sepsis with shock. Continue IV fluids, continue broad-spectrum antibiotics. Follow up on final urine and blood cultures. 2. Acute kidney injury. Continue IV fluids. Dr. Spain is following in nephrology consultation. Continue to monitor hemoglobin and hematocrit. 3. Acute hyperkalemia, status post Kayexalate. Continue to monitor potassium. 4. Hyponatremia. Continue IV fluids. 5. Hirschsprung disease. 6. Ileostomy. 7. Right chest Port-A-Cath inserted on 11/15/2016. Continue Protonix for peptic ulcer disease prophylaxis and sequential compression devices for deep venous thrombosis prophylaxis. Further recommendations based on clinical course. Plan of care discussed with Dr. Paez. Problems: Subjective 24 Hr Interval Summary Free Text/Dictation Borderline BP, denies any nausea vomiting. Exam/Review of Systems Vital Signs Vitals Vital Signs Date Time Temp Pulse Resp B/P Pulse Ox O2 Delivery O2 Flow Rate FiO2 11/27/16 12:00 99 11/27/16 11:30 97.9 20 87/53 100 Intake and Output 11/26/16 11/26/16 11/27/16 15:00 23:00 07:00 Intake Total 1420 ml 1150 ml Output Total 400 ml 1300 ml Balance 1020 ml -150 ml Exam GENERAL: Well-developed, tiny frame female, currently is awake, alert. HEENT: Head is atraumatic, normocephalic. PERRLA. NECK: Supple, no cervical lymphadenopathy, no thyromegaly. CHEST: Lungs clear bilaterally. There is no rhonchi, wheezes, rales noted. The patient has a right chest Port-A-Cath. CARDIOVASCULAR: The patient is slightly tachycardic. Normal S1, S2. No murmurs, gallops, clicks, rubs noted. ABDOMEN: Flat, soft, nondistended, nontender. The patient has a right lower quadrant ileostomy. SKIN: There is no rash, petechiae noted. EXTREMITIES: There is no edema, clubbing, cyanosis. Pulses equal bilaterally 2 +. GENITOURINARY: The patient has a Car catheter with blood-tinged urine. NEUROLOGIC: The patient is awake, alert and oriented, no focal deficits noted. Results Result Diagram: 11/26/16 0650 11/26/16 0650 Medications Medications Current Medications Dextrose ONCE PRN IV POC BLOOD GLUCOSE <250 MG/DL Last administered on 01:44; Admin Dose 50 ML; Start 11/22/16 at 01:30 Sodium Chloride 1,000 ml @ 100 mls/hr Q10H IV Last administered on 11/27/16 03:22; Admin Dose 100 MLS/HR; Start 11/22/16 at 06:30 Cefepime HCl (Maxipime 1gm/50 ml (Pmx)) 50 ml @ 100 mls/hr Q12 IVPB Last administered on 11/27/16 08:52; Admin Dose 100 MLS/HR; Start 11/22/16 at 09:00 Acetaminophen (Tylenol Tab) 500 mg Q4H PRN PO PAIN AND OR ELEVATED TEMP Last administered on 11/24/16 02:45; Admin Dose 500 MG; Start 11/22/16 at 18:00 Fluticasone Propionate (Flonase 0.05% Nasal) 2 spray DAILY PRN NASAL PRN; Start 11/22/16 at 18:00 Folic Acid (Folic Acid) 1 mg DAILY PO Last administered on 11/27/16 08:52; Admin Dose 1 MG; Start 11/23/16 at 09:00 Hydroxyzine Pamoate (Vistaril) 25 mg QHS PRN PO ITCHING Last administered on 21:43; Admin Dose 25 MG; Start 11/22/16 at 18:00 Magnesium Chloride (Mag 64) 64 mg BID PO Last administered on 11/27/16 08:52; Admin Dose 64 MG; Start 11/23/16 at 09:00 Midodrine (Proamatine) 2.5 mg BID@,17 PRN PO SBP <90; Start 11/22/16 at 18:00 Potassium Chloride (Klor-Con 20) 20 meq BID PO Last administered on 11/27/16 08:52; Admin Dose 20 MEQ; Start 11/22/16 at 21:00 Albuterol 2 puff 2 puff Q4H PRN INH WHEEZING AND SOB; Start 11/22/16 at 18:30 Vancomycin HCl (Vancocin) 100 ml @ 100 mls/hr Q12H IVPB Last administered on 04:43; Admin Dose 100 MLS/HR; Start 11/23/16 at 16:00 Simethicone (Mylicon) 80 mg QID PRN GTB DISTENSION/GAS/BLOATING Last administered on 11/24/16 13:20; Admin Dose 80 MG; Start 11/24/16 at 01:00 Famotidine (Pepcid) 20 mg Q24H PO Last administered on 11/27/16 00:24; Admin Dose 20 MG; Start 11/24/16 at 01:00 ROMI ESPINO November 27, 2016 14:18
--- NOTE | 2016-11-27 21:29 | CONS ---
Date/Time of Note Date/Time of Note DATE: 11/27/16 TIME: 21:28 Assessment/Plan Assessment/Plan Additional Assessment/Plan 1. Acute kidney injury, likely secondary to severe prerenal azotemia causing ischemic acute tubular necrosis. 2. 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 The patient was also on potassium replacement. 3. Hypomagnesemia with magnesium of 1. 4. 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 5. Severe sepsis with possible shock. Plan: continue current PO K replacement, other electrolytes stable will follow up pt can go home with Klor-Con 20mEQ PO daily Consultation Date/Type/Reason Admit Date/Time November 22, 2016 at 06:16 Initial Consult Date November Type of Consultation: NEPHROLOGY Referring Provider: CARLOS RODRIGUEZ MD 24 HR Interval Summary Free Text/Dictation tolerating diet, No nausea, no vomiting, k stale today Exam/Review of Systems Vital Signs Vitals Vital Signs Date Time Temp Pulse Resp B/P Pulse Ox O2 Delivery O2 Flow Rate FiO2 11/27/16 20:33 90 11/27/16 20:00 98.2 18 91/58 99 Intake and Output 11/26/16 11/26/16 11/27/16 15:00 23:00 07:00 Intake Total 1420 ml 1150 ml Output Total 400 ml 1300 ml Balance 1020 ml -150 ml Exam GENERAL: Awake, alert, in mild to moderate distress. HEENT: Normal. Oropharynx clear. Dry mucous membrane, no JVD, no lymphadenopathy. LUNGS: Decreased breath sounds at both lung bases. No crackles, no wheezes. HEART: S1, S2, with regular rhythm, no murmur. ABDOMEN: Tender to palpation diffusely with ileostomy in place. EXTREMITIES: Mild to 1+ pitting edema. NEUROLOGICAL: Nonfocal, intact. PSYCHIATRIC: Appropriate affect and mood. Results Result Diagram: 11/26/16 0650 11/26/16 0650 Medications Medications Current Medications Dextrose ONCE PRN IV POC BLOOD GLUCOSE <250 MG/DL Last administered on 01:44; Admin Dose 50 ML; Start 11/22/16 at 01:30 Sodium Chloride 1,000 ml @ 100 mls/hr Q10H IV Last administered on 11/27/16 03:22; Admin Dose 100 MLS/HR; Start 11/22/16 at 06:30 Cefepime HCl (Maxipime 1gm/50 ml (Pmx)) 50 ml @ 100 mls/hr Q12 IVPB Last administered on 11/27/16 08:52; Admin Dose 100 MLS/HR; Start 11/22/16 at 09:00 Acetaminophen (Tylenol Tab) 500 mg Q4H PRN PO PAIN AND OR ELEVATED TEMP Last administered on 11/24/16 02:45; Admin Dose 500 MG; Start 11/22/16 at 18:00 Fluticasone Propionate (Flonase 0.05% Nasal) 2 spray DAILY PRN NASAL PRN; Start 11/22/16 at 18:00 Folic Acid (Folic Acid) 1 mg DAILY PO Last administered on 11/27/16 08:52; Admin Dose 1 MG; Start 11/23/16 at 09:00 Hydroxyzine Pamoate (Vistaril) 25 mg QHS PRN PO ITCHING Last administered on 21:43; Admin Dose 25 MG; Start 11/22/16 at 18:00 Magnesium Chloride (Mag 64) 64 mg BID PO Last administered on 11/27/16 08:52; Admin Dose 64 MG; Start 11/23/16 at 09:00 Midodrine (Proamatine) 2.5 mg BID@,17 PRN PO SBP <90; Start 11/22/16 at 18:00 Potassium Chloride (Klor-Con 20) 20 meq BID PO Last administered on 11/27/16 08:52; Admin Dose 20 MEQ; Start 11/22/16 at 21:00 Albuterol 2 puff 2 puff Q4H PRN INH WHEEZING AND SOB; Start 11/22/16 at 18:30 Vancomycin HCl (Vancocin) 100 ml @ 100 mls/hr Q12H IVPB Last administered on 17:57; Admin Dose 100 MLS/HR; Start 11/23/16 at 16:00 Simethicone (Mylicon) 80 mg QID PRN GTB DISTENSION/GAS/BLOATING Last administered on 11/24/16 13:20; Admin Dose 80 MG; Start 11/24/16 at 01:00 Famotidine (Pepcid) 20 mg Q24H PO Last administered on 11/27/16t 00:24; Admin Dose 20 MG; Start 11/24/16 at 01:00 Miscellaneous Information (*Rx Drug Level Order Reminder*) VANCOMYCIN TROUGH AT 0300 ONCE ONCE XX ; Start 11/28/16 at 03:00; Stop 11/28/16 at 03:01 ROHAN VELÁZQUEZ MD November 27, 2016 21:29
[2016-11-28] VITALS (11 sets, daily range): BP systolic 94–108; BP diastolic 52–64; PULSE 68–110; RESP 16–20
[2016-11-28] MEDS: FAMOTIDINE 20 MG TAB PO SCH (01:42)
[2016-11-28 03:18] LABS: ADD SCAN DIFF NO
[2016-11-28 03:35] LABS: BASOPHILS % 0.6 % (0.0-2.0); EOSINOPHILS # 0.9 10^3/ul (0.0-0.5); EOSINOPHILS % 13.5 % (0.0-7.0); HEMOGLOBIN 10.1 g/dl (12.0-16.0); LYMPHOCYTES # 0.8 10^3/ul (0.8-2.9); LYMPHOCYTES % 11.9 % (15.0-51.0); MEAN CORPUSCULAR HEMOGLOBIN 31.6 pg (29.0-33.0); MEAN CORPUSCULAR HGB CONC 32.6 g/dl (32.0-37.0); MEAN CORPUSCULAR VOLUME 96.9 fl (82.0-101.0); MEAN PLATELET VOLUME 9.6 fl (7.4-10.4); MONOCYTE # 0.4 10^3/ul (0.3-0.9); MONOCYTES % 6.8 % (0.0-11.0); NEUTROPHIL # 4.3 10^3/ul (1.6-7.5); NEUTROPHILS % 66.6 % (39.0-77.0); PLATELET COUNT 353 10^3/UL (140-415); RED CELL DISTRIBUTION WIDTH 13.1 % (11.5-14.5); WHITE BLOOD COUNT 6.5 10^3/ul (4.8-10.8)
[2016-11-28 03:51] LABS: POTASSIUM 3.7 mmol/L (3.5-5.1)
[2016-11-28 03:53] LABS: CREATININE 0.78 mg/dl (0.44-1.00)
[2016-11-28 03:54] LABS: CALCIUM 9.2 mg/dl (8.4-10.2)
[2016-11-28] MEDS: VANCOMYCIN 500MG/NS (PMX) 100 ML IVPB SCH ×2 (04:29→17:08)
[2016-11-28] MEDS: CEFEPIME 1GM/50 ML (PMX) 50 ML IVPB SCH ×2 (09:08→21:44)
[2016-11-28] MEDS: MAGNESIUM CHLORIDE (SR) 64 MG TAB PO SCH ×2 (09:08→21:44)
[2016-11-28] MEDS: POTASSIUM CHLORIDE (SR) 20 MEQ TAB PO SCH ×2 (09:08→21:44)
[2016-11-28] MEDS: FOLIC ACID 1 MG TAB PO SCH (09:08)
[2016-11-28] MEDS: SOD CHLORIDE 0.9% 1,000 ML IV SCH ×2 (09:14→17:08)
--- NOTE | 2016-11-28 16:39 | CONS ---
Date/Time of Note Date/Time of Note DATE: 11/28/16 TIME: 16:38 Assessment/Plan Assessment/Plan Additional Assessment/Plan 1. Acute kidney injury, likely secondary to severe prerenal azotemia causing ischemic acute tubular necrosis. 2. 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 The patient was also on potassium replacement. 3. Hypomagnesemia with magnesium of 1. 4. 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 5. Severe sepsis with possible shock. Plan: continue current PO K replacement, other electrolytes stable will follow up lactic acid 5.0, Consultation Date/Type/Reason Admit Date/Time November 22, 2016 at 06:16 Initial Consult Date November Type of Consultation: NEPHROLOGY Reason for Consultation Hyperkalemia, Hyonatremia Referring Provider: CARLOS RODRIGUEZ MD 24 HR Interval Summary Free Text/Dictation doing ok, BP stable, afebrile Exam/Review of Systems Vital Signs Vitals Vital Signs Date Time Temp Pulse Resp B/P Pulse Ox O2 Delivery O2 Flow Rate FiO2 11/28/16 16:23 90 11/28/16 15:41 98.6 20 97/56 99 Intake and Output 11/27/16 11/27/16 11/28/16 15:00 23:00 07:00 Intake Total 1010 ml 1300 ml Output Total 700 ml 1700 ml Balance 310 ml -400 ml Exam GENERAL: Awake, alert, in mild to moderate distress. HEENT: Normal. Oropharynx clear. Dry mucous membrane, no JVD, no lymphadenopathy. LUNGS: Decreased breath sounds at both lung bases. No crackles, no wheezes. HEART: S1, S2, with regular rhythm, no murmur. ABDOMEN: Tender to palpation diffusely with ileostomy in place. EXTREMITIES: Mild to 1+ pitting edema. NEUROLOGICAL: Nonfocal, intact. PSYCHIATRIC: Appropriate affect and mood. Results Result Diagram: 11/28/16 0308 11/28/16 0308 Results 24 hrs Laboratory Tests Test 11/28/16 03:08 White Blood Count 6.5 # Red Blood Count 3.20 L Hemoglobin 10.1 L Hematocrit 31.0 L Mean Corpuscular Volume 96.9 Mean Corpuscular Hemoglobin 31.6 Mean Corpuscular Hemoglobin Concent 32.6 Red Cell Distribution Width 13.1 Platelet Count 353 Mean Platelet Volume 9.6 Neutrophils % 66.6 Lymphocytes % 11.9 L Monocytes % 6.8 Eosinophils % 13.5 H Basophils % 0.6 Nucleated Red Blood Cells % 0.0 Neutrophils # 4.3 Lymphocytes # 0.8 Monocytes # 0.4 Eosinophils # 0.9 H Basophils # 0.0 Nucleated Red Blood Cells # 0.0 Sodium Level 143 Potassium Level 3.7 Chloride Level 101 Carbon Dioxide Level 27 Anion Gap 19 H Blood Urea Nitrogen 26 H Creatinine 0.78 Glucose Level 147 # Lactic Acid Level 5.0 *H Calcium Level 9.2 Vancomycin Level Trough 14.8 Medications Medications Current Medications Dextrose ONCE PRN IV POC BLOOD GLUCOSE <250 MG/DL Last administered on 01:44; Admin Dose 50 ML; Start 11/22/16 at 01:30 Sodium Chloride 1,000 ml @ 100 mls/hr Q10H IV Last administered on 11/28/16 09:14; Admin Dose 100 MLS/HR; Start 11/22/16 at 06:30 Cefepime HCl (Maxipime 1gm/50 ml (Pmx)) 50 ml @ 100 mls/hr Q12 IVPB Last administered on 11/28/16 09:08; Admin Dose 100 MLS/HR; Start 11/22/16 at 09:00 Acetaminophen (Tylenol Tab) 500 mg Q4H PRN PO PAIN AND OR ELEVATED TEMP Last administered on 11/24/16 02:45; Admin Dose 500 MG; Start 11/22/16 at 18:00 Fluticasone Propionate (Flonase 0.05% Nasal) 2 spray DAILY PRN NASAL PRN; Start 11/22/16 at 18:00 Folic Acid (Folic Acid) 1 mg DAILY PO Last administered on 11/28/16 09:08; Admin Dose 1 MG; Start 11/23/16 at 09:00 Hydroxyzine Pamoate (Vistaril) 25 mg QHS PRN PO ITCHING Last administered on 21:43; Admin Dose 25 MG; Start 11/22/16 at 18:00 Magnesium Chloride (Mag 64) 64 mg BID PO Last administered on 11/28/16 09:08; Admin Dose 64 MG; Start 11/23/16 at 09:00 Midodrine (Proamatine) 2.5 mg BID@,17 PRN PO SBP <90; Start 11/22/16 at 18:00 Potassium Chloride (Klor-Con 20) 20 meq BID PO Last administered on 11/28/16 09:08; Admin Dose 20 MEQ; Start 11/22/16 at 21:00 Albuterol 2 puff 2 puff Q4H PRN INH WHEEZING AND SOB; Start 11/22/16 at 18:30 Vancomycin HCl (Vancocin) 100 ml @ 100 mls/hr Q12H IVPB Last administered on 04:29; Admin Dose 100 MLS/HR; Start 11/23/16 at 16:00 Simethicone (Mylicon) 80 mg QID PRN GTB DISTENSION/GAS/BLOATING Last administered on 11/24/16 13:20; Admin Dose 80 MG; Start 11/24/16 at 01:00 Famotidine (Pepcid) 20 mg Q24H PO Last administered on 11/28/16 01:42; Admin Dose 20 MG; Start 11/24/16 at 01:00 ROHAN VELÁZQUEZ MD November 28, 2016 16:39
--- NOTE | 2016-11-28 16:55 | PN ---
Date/Time of Note Date/Time of Note DATE: 11/28/16 TIME: 16:52 Assessment/Plan VTE Prophylaxis VTE Prophylaxis Intervention: other Lines/Catheters IV [facility]ter Type (from [facility]): Peripheral IV Urinary Cath still in place: No Assessment/Plan Assessment/Plan 1. Possible sepsis with shock. Continue IV fluids, continue broad-spectrum antibiotics. Follow up on final urine and blood cultures. 2. Acute kidney injury. Continue IV fluids. Dr. Spain is following in nephrology consultation. Continue to monitor hemoglobin and hematocrit. 3. Acute hyperkalemia, status post Kayexalate. Continue to monitor potassium. 4. Hyponatremia. Continue IV fluids. 5. Hirschsprung disease. 6. Ileostomy. 7. Right chest Port-A-Cath inserted on 11/15/2016. Continue Protonix for peptic ulcer disease prophylaxis and sequential compression devices for deep venous thrombosis prophylaxis. Further recommendations based on clinical course. Plan of care discussed with Dr. Paez. Exam/Review of Systems Vital Signs Vitals Vital Signs Date Time Temp Pulse Resp B/P Pulse Ox O2 Delivery O2 Flow Rate FiO2 11/28/16 16:23 90 11/28/16 15:41 98.6 20 97/56 99 Intake and Output 11/27/16 11/27/16 11/28/16 15:00 23:00 07:00 Intake Total 1010 ml 1300 ml Output Total 700 ml 1700 ml Balance 310 ml -400 ml Exam Constitutional: alert, oriented, well developed Psych: no complaints Head: atraumatic Eyes: nl sclera ENMT: nl external ears & nose Neck: non-tender Respiratory: clear to auscultation Cardiovascular: nl pulses Gastrointestinal: non-tender, soft Musculoskeletal: nl extremities to inspection Extremities: normal pulses 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: nl mental status, nl speech Skin: other Results Result Diagram: 11/28/16 0308 11/28/16 0308 Results 24 hrs Laboratory Tests Test 11/28/16 03:08 White Blood Count 6.5 # Red Blood Count 3.20 L Hemoglobin 10.1 L Hematocrit 31.0 L Mean Corpuscular Volume 96.9 Mean Corpuscular Hemoglobin 31.6 Mean Corpuscular Hemoglobin Concent 32.6 Red Cell Distribution Width 13.1 Platelet Count 353 Mean Platelet Volume 9.6 Neutrophils % 66.6 Lymphocytes % 11.9 L Monocytes % 6.8 Eosinophils % 13.5 H Basophils % 0.6 Nucleated Red Blood Cells % 0.0 Neutrophils # 4.3 Lymphocytes # 0.8 Monocytes # 0.4 Eosinophils # 0.9 H Basophils # 0.0 Nucleated Red Blood Cells # 0.0 Sodium Level 143 Potassium Level 3.7 Chloride Level 101 Carbon Dioxide Level 27 Anion Gap 19 H Blood Urea Nitrogen 26 H Creatinine 0.78 Glucose Level 147 # Lactic Acid Level 5.0 *H Calcium Level 9.2 Vancomycin Level Trough 14.8 Medications Medications Current Medications Dextrose ONCE PRN IV POC BLOOD GLUCOSE <250 MG/DL Last administered on 01:44; Admin Dose 50 ML; Start 11/22/16 at 01:30 Sodium Chloride 1,000 ml @ 100 mls/hr Q10H IV Last administered on 11/28/16 09:14; Admin Dose 100 MLS/HR; Start 11/22/16 at 06:30 Cefepime HCl (Maxipime 1gm/50 ml (Pmx)) 50 ml @ 100 mls/hr Q12 IVPB Last administered on 11/28/16 09:08; Admin Dose 100 MLS/HR; Start 11/22/16 at 09:00 Acetaminophen (Tylenol Tab) 500 mg Q4H PRN PO PAIN AND OR ELEVATED TEMP Last administered on 11/24/16 02:45; Admin Dose 500 MG; Start 11/22/16 at 18:00 Fluticasone Propionate (Flonase 0.05% Nasal) 2 spray DAILY PRN NASAL PRN; Start 11/22/16 at 18:00 Folic Acid (Folic Acid) 1 mg DAILY PO Last administered on 11/28/16 09:08; Admin Dose 1 MG; Start 11/23/16 at 09:00 Hydroxyzine Pamoate (Vistaril) 25 mg QHS PRN PO ITCHING Last administered on 21:43; Admin Dose 25 MG; Start 11/22/16 at 18:00 Magnesium Chloride (Mag 64) 64 mg BID PO Last administered on 11/28/16 09:08; Admin Dose 64 MG; Start 11/23/16 at 09:00 Midodrine (Proamatine) 2.5 mg BID@ PRN PO SBP <90; Start 11/22/16 at 18:00 Potassium Chloride (Klor-Con 20) 20 meq BID PO Last administered on 11/28/16 09:08; Admin Dose 20 MEQ; Start 11/22/16 at 21:00 Albuterol 2 puff 2 puff Q4H PRN INH WHEEZING AND SOB; Start 11/22/16 at 18:30 Vancomycin HCl (Vancocin) 100 ml @ 100 mls/hr Q12H IVPB Last administered on 04:29; Admin Dose 100 MLS/HR; Start 11/23/16 at 16:00 Simethicone (Mylicon) 80 mg QID PRN GTB DISTENSION/GAS/BLOATING Last administered on 11/24/16 13:20; Admin Dose 80 MG; Start 11/24/16 at 01:00 Famotidine (Pepcid) 20 mg Q24H PO Last administered on 11/28/16 01:42; Admin Dose 20 MG; Start 11/24/16 at 01:00 DEVENDRA GOMES November 28, 2016 16:54
[2016-11-29] VITALS (12 sets, daily range): BP systolic 102–114; BP diastolic 58–66; PULSE 96–103; RESP 16–20
[2016-11-29] MEDS: FAMOTIDINE 20 MG TAB PO SCH (01:33)
[2016-11-29] MEDS: VANCOMYCIN 500MG/NS (PMX) 100 ML IVPB SCH ×2 (04:25→15:19)
[2016-11-29 08:12] LABS: ADD SCAN DIFF NO
[2016-11-29 08:25] LABS: BASOPHIL # 0.1 10^3/ul (0.0-0.1); BASOPHILS % 0.6 % (0.0-2.0); EOSINOPHILS % 10.1 % (0.0-7.0); HEMATOCRIT 35.6 % (37.0-47.0); HEMOGLOBIN 11.6 g/dl (12.0-16.0); LYMPHOCYTES # 0.8 10^3/ul (0.8-2.9); LYMPHOCYTES % 8.1 % (15.0-51.0); MEAN CORPUSCULAR HEMOGLOBIN 31.4 pg (29.0-33.0); MEAN CORPUSCULAR HGB CONC 32.6 g/dl (32.0-37.0); MEAN CORPUSCULAR VOLUME 96.5 fl (82.0-101.0); MEAN PLATELET VOLUME 9.8 fl (7.4-10.4); MONOCYTE # 0.5 10^3/ul (0.3-0.9); MONOCYTES % 4.5 % (0.0-11.0); NEUTROPHIL # 7.7 10^3/ul (1.6-7.5); NEUTROPHILS % 75.8 % (39.0-77.0); PLATELET COUNT 395 10^3/UL (140-415); RED BLOOD COUNT 3.69 10^6/ul (4.20-5.40); RED CELL DISTRIBUTION WIDTH 13.4 % (11.5-14.5); WHITE BLOOD COUNT 10.1 10^3/ul (4.8-10.8)
[2016-11-29 09:06] LABS: CALCIUM 10.4 mg/dl (8.4-10.2); CREATININE 0.84 mg/dl (0.44-1.00); POTASSIUM 4.4 mmol/L (3.5-5.1)
[2016-11-29] MEDS: CEFEPIME 1GM/50 ML (PMX) 50 ML IVPB SCH ×2 (09:24→21:13)
[2016-11-29] MEDS: MAGNESIUM CHLORIDE (SR) 64 MG TAB PO SCH ×2 (09:24→21:13)
[2016-11-29] MEDS: FOLIC ACID 1 MG TAB PO SCH (09:24)
[2016-11-29] MEDS: POTASSIUM CHLORIDE (SR) 20 MEQ TAB PO SCH ×2 (09:24→21:13)
[2016-11-29] MEDS: SOD CHLORIDE 0.9% 1,000 ML IV SCH (15:16)
--- NOTE | 2016-11-29 17:46 | PN ---
Date/Time of Note Date/Time of Note DATE: 11/29/16 TIME: 17:44 Assessment/Plan VTE Prophylaxis VTE Prophylaxis Intervention: SCD's Lines/Catheters IV Catheter Type (from [facility]): Peripheral IV Urinary Cath still in place: No Assessment/Plan Chief Complaint/Hosp Course ASESSMENT AND PLAN: 1. Possible sepsis with shock. Continue IV fluids, continue broad-spectrum antibiotics. Follow up on final urine and blood cultures. 2. Acute kidney injury. Continue IV fluids. Dr. Spain is following in nephrology consultation. Continue to monitor hemoglobin and hematocrit. 3. Acute hyperkalemia, status post Kayexalate. Continue to monitor potassium. 4. Hyponatremia. Continue IV fluids. 5. Hirschsprung disease. 6. Ileostomy. 7. Right chest Port-A-Cath inserted on 11/15/2016. Continue Protonix for peptic ulcer disease prophylaxis and sequential compression devices for deep venous thrombosis prophylaxis. Further recommendations based on clinical course. Plan of care discussed with Dr. Paez. Problems: Subjective 24 Hr Interval Summary Free Text/Dictation , Continues to be tachycardic , no fever ,elevated lactic acid yesterday, decreased today. Patient denies nausea vomiting Exam/Review of Systems Vital Signs Vitals Vital Signs Date Time Temp Pulse Resp B/P Pulse Ox O2 Delivery O2 Flow Rate FiO2 11/29/16 16:45 103 11/29/16 15:21 98.9 17 107/64 99 Intake and Output 11/28/16 11/28/16 11/29/16 15:00 23:00 07:00 Intake Total 50 ml 1460 ml 1050 ml Output Total 300 ml 1000 ml Balance 50 ml 1160 ml 50 ml Exam GENERAL: Well-developed, tiny frame female, currently is awake, alert. HEENT: Head is atraumatic, normocephalic. PERRLA. NECK: Supple, no cervical lymphadenopathy, no thyromegaly. CHEST: Lungs clear bilaterally. There is no rhonchi, wheezes, rales noted. The patient has a right chest Port-A-Cath. CARDIOVASCULAR: The patient is slightly tachycardic. Normal S1, S2. No murmurs, gallops, clicks, rubs noted. ABDOMEN: Flat, soft, nondistended, nontender. The patient has a right lower quadrant ileostomy. SKIN: There is no rash, petechiae noted. EXTREMITIES: There is no edema, clubbing, cyanosis. Pulses equal bilaterally 2 +. GENITOURINARY: The patient has a Car catheter with blood-tinged urine. NEUROLOGIC: The patient is awake, alert and oriented, no focal deficits noted. Results Result Diagram: 11/29/16 0715 11/29/16 0715 Results 24 hrs Laboratory Tests Test 11/29/16 07:15 White Blood Count 10.1 # Red Blood Count 3.69 L Hemoglobin 11.6 L Hematocrit 35.6 L Mean Corpuscular Volume 96.5 Mean Corpuscular Hemoglobin 31.4 Mean Corpuscular Hemoglobin Concent 32.6 Red Cell Distribution Width 13.4 Platelet Count 395 Mean Platelet Volume 9.8 Neutrophils % 75.8 Lymphocytes % 8.1 L Monocytes % 4.5 Eosinophils % 10.1 H Basophils % 0.6 Nucleated Red Blood Cells % 0.0 Neutrophils # 7.7 H Lymphocytes # 0.8 Monocytes # 0.5 Eosinophils # 1.0 H Basophils # 0.1 Nucleated Red Blood Cells # 0.0 Sodium Level 136 Potassium Level 4.4 Chloride Level 96 L Carbon Dioxide Level 28 Anion Gap 16 Blood Urea Nitrogen 32 H Creatinine 0.84 Glucose Level 129 Lactic Acid Level 3.5 H Calcium Level 10.4 H Medications Medications Current Medications Dextrose ONCE PRN IV POC BLOOD GLUCOSE <250 MG/DL Last administered on 01:44; Admin Dose 50 ML; Start 11/22/16 at 01:30 Sodium Chloride 1,000 ml @ 50 mls/hr Q20H IV Last administered on 11/29/16 15 :16; Admin Dose 50 MLS/HR; Start 11/22/16 at 06:30 Cefepime HCl (Maxipime 1gm/50 ml (Pmx)) 50 ml @ 100 mls/hr Q12 IVPB Last administered on 11/29/16 09:24; Admin Dose 100 MLS/HR; Start 11/22/16 at 09:00 Acetaminophen (Tylenol Tab) 500 mg Q4H PRN PO PAIN AND OR ELEVATED TEMP Last administered on 11/24/16 02:45; Admin Dose 500 MG; Start 11/22/16 at 18:00 Fluticasone Propionate (Flonase 0.05% Nasal) 2 spray DAILY PRN NASAL PRN; Start 11/22/16 at 18:00 Folic Acid (Folic Acid) 1 mg DAILY PO Last administered on 11/29/16 09:24; Admin Dose 1 MG; Start 11/23/16 at 09:00 Hydroxyzine Pamoate (Vistaril) 25 mg QHS PRN PO ITCHING Last administered on 21:43; Admin Dose 25 MG; Start 11/22/16 at 18:00 Magnesium Chloride (Mag 64) 64 mg BID PO Last administered on 11/29/16 09:24; Admin Dose 64 MG; Start 11/23/16 at 09:00 Midodrine (Proamatine) 2.5 mg BID@17 PRN PO SBP <90; Start 11/22/16 at 18:00 Potassium Chloride (Klor-Con 20) 20 meq BID PO Last administered on 11/29/16 09:24; Admin Dose 20 MEQ; Start 11/22/16 at 21:00 Albuterol 2 puff 2 puff Q4H PRN INH WHEEZING AND SOB; Start 11/22/16 at 18:30 Vancomycin HCl (Vancocin) 100 ml @ 100 mls/hr Q12H IVPB Last administered on 15:19; Admin Dose 100 MLS/HR; Start 11/23/16 at 16:00 Simethicone (Mylicon) 80 mg QID PRN GTB DISTENSION/GAS/BLOATING Last administered on 11/28/16 22:20; Admin Dose 80 MG; Start 11/24/16 at 01:00 Famotidine (Pepcid) 20 mg Q24H PO Last administered on 11/29/16 01:33; Admin Dose 20 MG; Start 11/24/16 at 01:00 ROMI ESPINO November 29, 2016 17:46
--- NOTE | 2016-11-29 23:08 | CONS ---
Date/Time of Note Date/Time of Note DATE: 11/29/16 TIME: 23:08 Assessment/Plan Assessment/Plan Additional Assessment/Plan 1. Acute kidney injury, likely secondary to severe prerenal azotemia causing ischemic acute tubular necrosis. 2. 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 The patient was also on potassium replacement. 3. Hypomagnesemia with magnesium of 1. 4. 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 5. Severe sepsis with possible shock. Plan: continue current PO K replacement, other electrolytes stable will follow up lactic acid 3.5 started on abx again Consultation Date/Type/Reason Admit Date/Time November 22, 2016 at 06:16 Initial Consult Date November Type of Consultation: NEPHROLOGY Referring Provider: CARLOS RODRIGUEZ MD Exam/Review of Systems Vital Signs Vitals Vital Signs Date Time Temp Pulse Resp B/P Pulse Ox O2 Delivery O2 Flow Rate FiO2 11/29/16 20:26 103 11/29/16 20:07 97.2 20 114/58 100 Intake and Output 11/28/16 11/28/16 11/29/16 15:00 23:00 07:00 Intake Total 50 ml 1460 ml 1050 ml Output Total 300 ml 1000 ml Balance 50 ml 1160 ml 50 ml Results Result Diagram: 11/29/16 0715 11/29/16 0715 Results 24 hrs Laboratory Tests Test 11/29/16 07:15 White Blood Count 10.1 # Red Blood Count 3.69 L Hemoglobin 11.6 L Hematocrit 35.6 L Mean Corpuscular Volume 96.5 Mean Corpuscular Hemoglobin 31.4 Mean Corpuscular Hemoglobin Concent 32.6 Red Cell Distribution Width 13.4 Platelet Count 395 Mean Platelet Volume 9.8 Neutrophils % 75.8 Lymphocytes % 8.1 L Monocytes % 4.5 Eosinophils % 10.1 H Basophils % 0.6 Nucleated Red Blood Cells % 0.0 Neutrophils # 7.7 H Lymphocytes # 0.8 Monocytes # 0.5 Eosinophils # 1.0 H Basophils # 0.1 Nucleated Red Blood Cells # 0.0 Sodium Level 136 Potassium Level 4.4 Chloride Level 96 L Carbon Dioxide Level 28 Anion Gap 16 Blood Urea Nitrogen 32 H Creatinine 0.84 Glucose Level 129 Lactic Acid Level 3.5 H Calcium Level 10.4 H Medications Medications Current Medications Dextrose ONCE PRN IV POC BLOOD GLUCOSE <250 MG/DL Last administered on 01:44; Admin Dose 50 ML; Start 11/22/16 at 01:30 Sodium Chloride 1,000 ml @ 50 mls/hr Q20H IV Last administered on 11/29/16 15 :16; Admin Dose 50 MLS/HR; Start 11/22/16 at 06:30 Cefepime HCl (Maxipime 1gm/50 ml (Pmx)) 50 ml @ 100 mls/hr Q12 IVPB Last administered on 11/29/16 21:13; Admin Dose 100 MLS/HR; Start 11/22/16 at 09:00 Acetaminophen (Tylenol Tab) 500 mg Q4H PRN PO PAIN AND OR ELEVATED TEMP Last administered on 11/24/16 02:45; Admin Dose 500 MG; Start 11/22/16 at 18:00 Fluticasone Propionate (Flonase 0.05% Nasal) 2 spray DAILY PRN NASAL PRN; Start 11/22/16 at 18:00 Folic Acid (Folic Acid) 1 mg DAILY PO Last administered on 11/29/16 09:24; Admin Dose 1 MG; Start 11/23/16 at 09:00 Hydroxyzine Pamoate (Vistaril) 25 mg QHS PRN PO ITCHING Last administered on 21:43; Admin Dose 25 MG; Start 11/22/16 at 18:00 Magnesium Chloride (Mag 64) 64 mg BID PO Last administered on 11/29/16 21:13; Admin Dose 64 MG; Start 11/23/16 at 09:00 Midodrine (Proamatine) 2.5 mg BID@,17 PRN PO SBP <90; Start 11/22/16 at 18:00 Potassium Chloride (Klor-Con 20) 20 meq BID PO Last administered on 11/29/16 21:13; Admin Dose 20 MEQ; Start 11/22/16 at 21:00 Albuterol 2 puff 2 puff Q4H PRN INH WHEEZING AND SOB; Start 11/22/16 at 18:30 Vancomycin HCl (Vancocin) 100 ml @ 100 mls/hr Q12H IVPB Last administered on 15:19; Admin Dose 100 MLS/HR; Start 11/23/16 at 16:00 Simethicone (Mylicon) 80 mg QID PRN GTB DISTENSION/GAS/BLOATING Last administered on 11/28/16 22:20; Admin Dose 80 MG; Start 11/24/16 at 01:00 Famotidine (Pepcid) 20 mg Q24H PO Last administered on 11/29/16 01:33; Admin Dose 20 MG; Start 11/24/16 at 01:00 ROHAN VELÁZQUEZ MD November 29, 2016 23:08
[2016-11-30] VITALS (8 sets, daily range): BP systolic 85–121; BP diastolic 47–69; PULSE 108–109; RESP 17–20
[2016-11-30] MEDS: FAMOTIDINE 20 MG TAB PO SCH (00:22)
[2016-11-30] MEDS: VANCOMYCIN 500MG/NS (PMX) 100 ML IVPB SCH ×2 (05:18→16:03)
[2016-11-30] MEDS: MAGNESIUM CHLORIDE (SR) 64 MG TAB PO SCH ×2 (08:28→20:18)
[2016-11-30] MEDS: FOLIC ACID 1 MG TAB PO SCH (08:28)
[2016-11-30] MEDS: CEFEPIME 1GM/50 ML (PMX) 50 ML IVPB SCH ×2 (08:28→20:18)
[2016-11-30] MEDS: POTASSIUM CHLORIDE (SR) 20 MEQ TAB PO SCH ×2 (08:28→20:18)
[2016-11-30 09:30] LABS: CREATININE 0.91 mg/dl (0.44-1.00)
--- NOTE | 2016-11-30 14:03 | CONS ---
Date/Time of Note Date/Time of Note DATE: 11/30/16 TIME: 14:03 Assessment/Plan Assessment/Plan Additional Assessment/Plan 1. Acute kidney injury, likely secondary to severe prerenal azotemia causing ischemic acute tubular necrosis. 2. 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 The patient was also on potassium replacement. 3. Hypomagnesemia severe 4. 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 5. Severe sepsis with possible shock. Plan: continue current PO K replacement, other electrolytes stable will follow up BuN/Cr normal today Consultation Date/Type/Reason Admit Date/Time November 22, 2016 at 06:16 Initial Consult Date November Type of Consultation: NEPHROLOGY Referring Provider: CARLOS RODRIGUEZ MD Exam/Review of Systems Vital Signs Vitals Vital Signs Date Time Temp Pulse Resp B/P Pulse Ox O2 Delivery O2 Flow Rate FiO2 11/30/16 11:22 98.5 111 17 95/57 96 Intake and Output 11/29/16 11/29/16 11/30/16 15:00 23:00 07:00 Intake Total 50 ml 1800 ml 1050 ml Balance 50 ml 1800 ml 1050 ml Exam GENERAL: Awake, alert, in mild to moderate distress. HEENT: Normal. Oropharynx clear. Dry mucous membrane, no JVD, no lymphadenopathy. LUNGS: Decreased breath sounds at both lung bases. No crackles, no wheezes. HEART: S1, S2, with regular rhythm, no murmur. ABDOMEN: Tender to palpation diffusely with ileostomy in place. EXTREMITIES: Mild to 1+ pitting edema. NEUROLOGICAL: Nonfocal, intact. PSYCHIATRIC: Appropriate affect and mood. Results Result Diagram: 11/29/16 0715 11/30/16 0725 Results 24 hrs Laboratory Tests Test 11/30/16 07:25 Blood Urea Nitrogen 36 H Creatinine 0.91 Medications Medications Current Medications Dextrose ONCE PRN IV POC BLOOD GLUCOSE <250 MG/DL Last administered on 01:44; Admin Dose 50 ML; Start 11/22/16 at 01:30 Sodium Chloride 1,000 ml @ 50 mls/hr Q20H IV Last administered on 11/29/16 15 :16; Admin Dose 50 MLS/HR; Start 5/12/17 at 06:30 Cefepime HCl (Maxipime 1gm/50 ml (Pmx)) 50 ml @ 100 mls/hr Q12 IVPB Last administered on 11/30/16 08:28; Admin Dose 100 MLS/HR; Start 11/22/16 at 09:00 Acetaminophen (Tylenol Tab) 500 mg Q4H PRN PO PAIN AND OR ELEVATED TEMP Last administered on 11/24/16 02:45; Admin Dose 500 MG; Start 11/22/16 at 18:00 Fluticasone Propionate (Flonase 0.05% Nasal) 2 spray DAILY PRN NASAL PRN; Start 11/22/16 at 18:00 Folic Acid (Folic Acid) 1 mg DAILY PO Last administered on 11/30/16 08:28; Admin Dose 1 MG; Start 11/23/16 at 09:00 Hydroxyzine Pamoate (Vistaril) 25 mg QHS PRN PO ITCHING Last administered on 21:43; Admin Dose 25 MG; Start 11/22/16 at 18:00 Magnesium Chloride (Mag 64) 64 mg BID PO Last administered on 11/30/16 08:28; Admin Dose 64 MG; Start 11/23/16 at 09:00 Midodrine (Proamatine) 2.5 mg BID@17 PRN PO SBP <90; Start 11/22/16 at 18:00 Potassium Chloride (Klor-Con 20) 20 meq BID PO Last administered on 11/30/16 08:28; Admin Dose 20 MEQ; Start 11/22/16 at 21:00 Albuterol 2 puff 2 puff Q4H PRN INH WHEEZING AND SOB; Start 11/22/16 at 18:30 Vancomycin HCl (Vancocin) 100 ml @ 100 mls/hr Q12H IVPB Last administered on 05:18; Admin Dose 100 MLS/HR; Start 11/23/16 at 16:00 Simethicone (Mylicon) 80 mg QID PRN GTB DISTENSION/GAS/BLOATING Last administered on 11/28/16 22:20; Admin Dose 80 MG; Start 11/24/16 at 01:00 Famotidine (Pepcid) 20 mg Q24H PO Last administered on 11/30/16 00:22; Admin Dose 20 MG; Start 11/24/16 at 01:00 Miscellaneous Information (*Rx Drug Level Order Reminder*) VANCOMYCIN TROUGH AT 0,300 ON... ONCE ONCE XX ; Start 12/01/16 at 03:00; Stop 12/01/16 at 03:01 ROHAN VELÁZQUEZ MD November 30, 2016 14:03
[2016-11-30] MEDS: SOD CHLORIDE 0.9% 1,000 ML IV SCH (14:28)
--- NOTE | 2016-11-30 17:14 | PN ---
Date/Time of Note Date/Time of Note DATE: 11/30/16 TIME: 17:13 Assessment/Plan Lines/Catheters IV C[facility]ter Type (from [facility]): Peripheral IV Urinary Cath still in place: No Assessment/Plan Assessment/Plan 1. Possible sepsis with shock. Continue IV fluids, continue broad-spectrum antibiotics. Follow up on final urine and blood cultures. 2. Acute kidney injury. Continue IV fluids. Dr. Spain is following in nephrology consultation. Continue to monitor hemoglobin and hematocrit. 3. Acute hyperkalemia- resolved 4. Hyponatremia- resolved 5. Hirschsprung disease. 6. Ileostomy. 7. Right chest Port-A-Cath inserted on 11/15/2016. 8. Vaginal Yeast Infection- Diflucan [address] Paez/staff/patient Continue Protonix for peptic ulcer disease prophylaxis and sequential compression devices for deep venous thrombosis prophylaxis. Further recommendations based on clinical course. Plan of care discussed with Dr. Paez. Subjective 24 Hr Interval Summary Free Text/Dictation nad, resting, afebrile, c/o vaginal discharge-white, cheesy discharge. dw staff , Anticipate discharge tomorrow. Respiratory: no complaints Cardiovascular: no complaints Gastrointestinal: no complaints Exam/Review of Systems Vital Signs Vitals Vital Signs Date Time Temp Pulse Resp B/P Pulse Ox O2 Delivery O2 Flow Rate FiO2 11/30/16 15:52 98.5 104 17 85/60 99 Intake and Output 11/29/16 11/29/16 11/30/16 15:00 23:00 07:00 Intake Total 50 ml 1800 ml 1050 ml Balance 50 ml 1800 ml 1050 ml Exam Constitutional: alert Psych: nl mood/affect ENMT: nl external ears & nose Respiratory: clear to auscultation Cardiovascular: nl pulses Gastrointestinal: non-tender, soft Extremities: normal pulses 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: nl mental status, nl speech Results Result Diagram: 11/29/16 0715 11/30/16 0725 Results 24 hrs Laboratory Tests Test 11/30/16 07:25 Blood Urea Nitrogen 36 H Creatinine 0.91 Medications Medications Current Medications Dextrose ONCE PRN IV POC BLOOD GLUCOSE <250 MG/DL Last administered on t 01:44; Admin Dose 50 ML; Start 11/22/16 at 01:30 Sodium Chloride 1,000 ml @ 50 mls/hr Q20H IV Last administered on 11/29/16 15 :16; Admin Dose 50 MLS/HR; Start 11/22/16 at 06:30 Cefepime HCl (Maxipime 1gm/50 ml (Pmx)) 50 ml @ 100 mls/hr Q12 IVPB Last administered on 11/30/16 08:28; Admin Dose 100 MLS/HR; Start 11/22/16 at 09:00 Acetaminophen (Tylenol Tab) 500 mg Q4H PRN PO PAIN AND OR ELEVATED TEMP Last administered on 11/24/16 02:45; Admin Dose 500 MG; Start 11/22/16 at 18:00 Fluticasone Propionate (Flonase 0.05% Nasal) 2 spray DAILY PRN NASAL PRN; Start 11/22/16 at 18:00 Folic Acid (Folic Acid) 1 mg DAILY PO Last administered on 11/30/16 08:28; Admin Dose 1 MG; Start 11/23/16 at 09:00 Hydroxyzine Pamoate (Vistaril) 25 mg QHS PRN PO ITCHING Last administered on 21:43; Admin Dose 25 MG; Start 11/22/16 at 18:00 Magnesium Chloride (Mag 64) 64 mg BID PO Last administered on 11/30/16 08:28; Admin Dose 64 MG; Start 11/23/16 at 09:00 Midodrine (Proamatine) 2.5 mg BID@,17 PRN PO SBP <90; Start 11/22/16 at 18:00 Potassium Chloride (Klor-Con 20) 20 meq BID PO Last administered on 11/30/16 08:28; Admin Dose 20 MEQ; Start 11/22/16 at 21:00 Albuterol 2 puff 2 puff Q4H PRN INH WHEEZING AND SOB; Start 11/22/16 at 18:30 Vancomycin HCl (Vancocin) 100 ml @ 100 mls/hr Q12H IVPB Last administered on 16:03; Admin Dose 100 MLS/HR; Start 11/23/16 at 16:00 Simethicone (Mylicon) 80 mg QID PRN GTB DISTENSION/GAS/BLOATING Last administered on 11/28/16 22:20; Admin Dose 80 MG; Start 11/24/16 at 01:00 Famotidine (Pepcid) 20 mg Q24H PO Last administered on 11/30/16 00:22; Admin Dose 20 MG; Start 11/24/16 at 01:00 Miscellaneous Information (*Rx Drug Level Order Reminder*) VANCOMYCIN TROUGH AT 0,300 ON... ONCE ONCE XX ; Start 12/01/16 at 03:00; Stop 12/01/16 at 03:01 DEVENDRA GOMES November 30, 2016 17:14
[2016-11-30] MEDS ORDERED: FLUCONAZOLE 200 MG TAB PO ONE (18:30)
[2016-12-01] VITALS (12 sets, daily range): BP systolic 96–110; BP diastolic 49–69; PULSE 78–106; RESP 17–20
[2016-12-01 04:55] LABS: ADD SCAN DIFF NO
[2016-12-01 05:09] LABS: BASOPHILS % 0.5 % (0.0-2.0); EOSINOPHILS # 1.4 10^3/ul (0.0-0.5); EOSINOPHILS % 15.7 % (0.0-7.0); HEMOGLOBIN 11.6 g/dl (12.0-16.0); LYMPHOCYTES # 0.8 10^3/ul (0.8-2.9); LYMPHOCYTES % 8.8 % (15.0-51.0); MEAN CORPUSCULAR HEMOGLOBIN 31.7 pg (29.0-33.0); MEAN CORPUSCULAR HGB CONC 33.1 g/dl (32.0-37.0); MEAN CORPUSCULAR VOLUME 95.6 fl (82.0-101.0); MEAN PLATELET VOLUME 9.5 fl (7.4-10.4); MONOCYTE # 0.7 10^3/ul (0.3-0.9); MONOCYTES % 7.7 % (0.0-11.0); NEUTROPHIL # 5.7 10^3/ul (1.6-7.5); PLATELET COUNT 378 10^3/UL (140-415); RED BLOOD COUNT 3.66 10^6/ul (4.20-5.40); RED CELL DISTRIBUTION WIDTH 13.2 % (11.5-14.5); WHITE BLOOD COUNT 8.7 10^3/ul (4.8-10.8)
[2016-12-01 05:11] LABS: POTASSIUM 4.5 mmol/L (3.5-5.1)
[2016-12-01 05:14] LABS: CREATININE 0.93 mg/dl (0.44-1.00)
[2016-12-01 05:15] LABS: CALCIUM 9.6 mg/dl (8.4-10.2)
[2016-12-01] MEDS: FAMOTIDINE 20 MG TAB PO SCH (06:05)
[2016-12-01] MEDS: VANCOMYCIN 500MG/NS (PMX) 100 ML IVPB SCH (06:05)
[2016-12-01] MEDS: MAGNESIUM CHLORIDE (SR) 64 MG TAB PO SCH ×2 (08:46→19:52)
[2016-12-01] MEDS: FOLIC ACID 1 MG TAB PO SCH (08:46)
[2016-12-01] MEDS: CEFEPIME 1GM/50 ML (PMX) 50 ML IVPB SCH ×2 (08:46→19:48)
[2016-12-01] MEDS: POTASSIUM CHLORIDE (SR) 20 MEQ TAB PO SCH ×2 (08:46→19:48)
[2016-12-01] MEDS: SOD CHLORIDE 0.9% 1,000 ML IV SCH (10:12)
[2016-12-01] MEDS ORDERED: MYL80 GTB (11:06)
--- NOTE | 2016-12-01 11:08 | PN ---
Date/Time of Note Date/Time of Note DATE: 12/01/16 TIME: 11:07 Assessment/Plan VTE Prophylaxis VTE Prophylaxis Intervention: other Lines/Catheters IV C[facility]ter Type (from [facility]): Peripheral IV Urinary Cath still in place: No Assessment/Plan Assessment/Plan 1. Possible sepsis with shock. Continue IV fluids, continue broad-spectrum antibiotics. Follow up on final urine and blood cultures. 2. Acute kidney injury. Continue IV fluids. Dr. Spain is following in nephrology consultation. Continue to monitor hemoglobin and hematocrit. 3. Acute hyperkalemia- resolved 4. Hyponatremia- resolved 5. Hirschsprung disease. 6. Ileostomy. 7. Right chest Port-A-Cath inserted on 11/15/2016. 8. Vaginal Yeast Infection- Diflucan [address] Paez/staff/patient Continue Protonix for peptic ulcer disease prophylaxis and sequential compression devices for deep venous thrombosis prophylaxis. Further recommendations based on clinical course. Plan of care discussed with Dr. Paez. Subjective 24 Hr Interval Summary Free Text/Dictation nad, resting, afebrile, vaginal discharge better, dw staff, Anticipate discharge today if labs are ok Cardiovascular: no complaints Gastrointestinal: no complaints Genitourinary: no complaints Musculoskeletal: no complaints Skin: no complaints Neurologic: no complaints Psychological: nl mood/affect Exam/Review of Systems Vital Signs Vitals Vital Signs Date Time Temp Pulse Resp B/P Pulse Ox O2 Delivery O2 Flow Rate FiO2 12/01/16 08:11 95 12/01/16 07:38 97.7 17 103/52 99 Intake and Output 11/30/16 11/30/16 12/01/16 15:00 23:00 07:00 Intake Total 1800 ml 630 ml Output Total 700 ml Balance 1100 ml 630 ml Exam Constitutional: alert, well developed Respiratory: clear to auscultation Cardiovascular: nl pulses Gastrointestinal: non-tender, soft Musculoskeletal: nl extremities to inspection Extremities: normal pulses 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: nl mental status, nl speech Results Result Diagram: 12/01/160 12/01/160 Results 24 hrs Laboratory Tests Test 12/01/16 04:40 White Blood Count 8.7 Red Blood Count 3.66 L Hemoglobin 11.6 L Hematocrit 35.0 L Mean Corpuscular Volume 95.6 Mean Corpuscular Hemoglobin 31.7 Mean Corpuscular Hemoglobin Concent 33.1 Red Cell Distribution Width 13.2 Platelet Count 378 Mean Platelet Volume 9.5 Neutrophils % 66.0 Lymphocytes % 8.8 L Monocytes % 7.7 Eosinophils % 15.7 H Basophils % 0.5 Nucleated Red Blood Cells % 0.0 Neutrophils # 5.7 Lymphocytes # 0.8 Monocytes # 0.7 Eosinophils # 1.4 H Basophils # 0.0 Nucleated Red Blood Cells # 0.0 Sodium Level 141 Potassium Level 4.5 Chloride Level 95 L Carbon Dioxide Level 29 Anion Gap 22 H Blood Urea Nitrogen 39 H Creatinine 0.93 Glucose Level 99 Calcium Level 9.6 Vancomycin Level Trough 15.1 Medications Medications Current Medications Dextrose ONCE PRN IV POC BLOOD GLUCOSE <250 MG/DL Last administered on 01:44; Admin Dose 50 ML; Start 11/22/16 at 01:30 Sodium Chloride 1,000 ml @ 50 mls/hr Q20H IV Last administered on 11/29/16 15 :16; Admin Dose 50 MLS/HR; Start 11/22/16 at 06:30 Cefepime HCl (Maxipime 1gm/50 ml (Pmx)) 50 ml @ 100 mls/hr Q12 IVPB Last administered on 12/01/16 08:46; Admin Dose 100 MLS/HR; Start 11/22/16 at 09:00 Acetaminophen (Tylenol Tab) 500 mg Q4H PRN PO PAIN AND OR ELEVATED TEMP Last administered on 11/24/16 02:45; Admin Dose 500 MG; Start 11/22/16 at 18:00 Fluticasone Propionate (Flonase 0.05% Nasal) 2 spray DAILY PRN NASAL PRN; Start 11/22/16 at 18:00 Folic Acid (Folic Acid) 1 mg DAILY PO Last administered on 12/01/16 08:46; Admin Dose 1 MG; Start 11/23/16 at 09:00 Hydroxyzine Pamoate (Vistaril) 25 mg QHS PRN PO ITCHING Last administered on 21:43; Admin Dose 25 MG; Start 11/22/16 at 18:00 Magnesium Chloride (Mag 64) 64 mg BID PO Last administered on 12/01/16 08:46; Admin Dose 64 MG; Start 11/23/16 at 09:00 Midodrine (Proamatine) 2.5 mg BID@09,17 PRN PO SBP <90; Start 11/22/16 at 18:00 Potassium Chloride (Klor-Con 20) 20 meq BID PO Last administered on 12/01/16 08:46; Admin Dose 20 MEQ; Start 11/22/16 at 21:00 Albuterol (Ventolin Hfa) 2 puff Q4H PRN INH WHEEZING AND SOB; Start 11/22/16 at 18:30 Simethicone (Mylicon) 80 mg QID PRN GTB DISTENSION/GAS/BLOATING Last administered on 11/28/16 22:20; Admin Dose 80 MG; Start 11/24/16 at 01:00 Famotidine 20 mg 20 mg Q24H PO Last administered on 12/01/16 06:05; Admin Dose 20 MG; Start 11/24/16 at 01:00 Vancomycin HCl/ Sodium Chloride (Vancocin/NS) 100 ml @ 100 mls/hr Q12H IVPB ; Start 12/01/16 at 18:00 DEVENDRA GOMES December 01, 2016 11:08
--- NOTE | 2016-12-01 14:39 | QN ---
Documentation Comment DR. Tomlinson will be in shortly. Thank you. ANGEL BAIRD December 01, 2016 14:39
--- NOTE | 2016-12-01 16:28 | CONS ---
Date/Time of Note Date/Time of Note DATE: 12/01/16 TIME: 16:26 Assessment/Plan Assessment/Plan Additional Assessment/Plan 1. Acute kidney injury, likely secondary to severe prerenal azotemia causing ischemic acute tubular necrosis. 2. 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 The patient was also on potassium replacement. 3. Hypomagnesemia severe 4. 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 5. Severe sepsis with possible shock. Plan: continue current PO K replacement, other electrolytes stable will follow up Cr normal, but BUN trending up conitnue IVF NS at current rate Consultation Date/Type/Reason Admit Date/Time November 22, 2016 at 06:16 Initial Consult Date November Type of Consultation: NEPHROLOGY Referring Provider: CARLOS RODRIGUEZ MD 24 HR Interval Summary Free Text/Dictation Electrolytes stabel, Cr normal, lactic acid still high Exam/Review of Systems Vital Signs Vitals Vital Signs Date Time Temp Pulse Resp B/P Pulse Ox O2 Delivery O2 Flow Rate FiO2 12/01/16 16:22 106 12/01/16 16:22 97.4 18 96/58 97 Intake and Output 11/30/16 11/30/16 12/01/16 15:00 23:00 07:00 Intake Total 1800 ml 630 ml Output Total 700 ml Balance 1100 ml 630 ml Results Result Diagram: 12/01/16 0440 12/01/16 0440 Results 24 hrs Laboratory Tests Test 12/01/16 04:40 12/01/16 11:35 White Blood Count 8.7 Red Blood Count 3.66 L Hemoglobin 11.6 L Hematocrit 35.0 L Mean Corpuscular Volume 95.6 Mean Corpuscular Hemoglobin 31.7 Mean Corpuscular Hemoglobin Concent 33.1 Red Cell Distribution Width 13.2 Platelet Count 378 Mean Platelet Volume 9.5 Neutrophils % 66.0 Lymphocytes % 8.8 L Monocytes % 7.7 Eosinophils % 15.7 H Basophils % 0.5 Nucleated Red Blood Cells % 0.0 Neutrophils # 5.7 Lymphocytes # 0.8 Monocytes # 0.7 Eosinophils # 1.4 H Basophils # 0.0 Nucleated Red Blood Cells # 0.0 Sodium Level 141 Potassium Level 4.5 Chloride Level 95 L Carbon Dioxide Level 29 Anion Gap 22 H Blood Urea Nitrogen 39 H Creatinine 0.93 Glucose Level 99 Calcium Level 9.6 Vancomycin Level Trough 15.1 Lactic Acid Level 3.1 H Medications Medications Current Medications Dextrose ONCE PRN IV POC BLOOD GLUCOSE <250 MG/DL Last administered on 01:44; Admin Dose 50 ML; Start 11/22/16 at 01:30 Sodium Chloride 1,000 ml @ 50 mls/hr Q20H IV Last administered on 11/29/16 15 :16; Admin Dose 50 MLS/HR; Start 11/22/16 at 06:30 Cefepime HCl (Maxipime 1gm/50 ml (Pmx)) 50 ml @ 100 mls/hr Q12 IVPB Last administered on 12/01/16 08:46; Admin Dose 100 MLS/HR; Start 11/22/16 at 09:00 Acetaminophen (Tylenol Tab) 500 mg Q4H PRN PO PAIN AND OR ELEVATED TEMP Last administered on 11/24/16 02:45; Admin Dose 500 MG; Start 11/22/16 at 18:00 Fluticasone Propionate (Flonase 0.05% Nasal) 2 spray DAILY PRN NASAL PRN; Start 11/22/16 at 18:00 Folic Acid (Folic Acid) 1 mg DAILY PO Last administered on 12/01/16 08:46; Admin Dose 1 MG; Start 11/23/16 at 09:00 Hydroxyzine Pamoate (Vistaril) 25 mg QHS PRN PO ITCHING Last administered on 21:43; Admin Dose 25 MG; Start 11/22/16 at 18:00 Magnesium Chloride (Mag 64) 64 mg BID PO Last administered on 12/01/16 08:46; Admin Dose 64 MG; Start 11/23/16 at 09:00 Midodrine (Proamatine) 2.5 mg BID@,17 PRN PO SBP <90; Start 11/22/16 at 18:00 Potassium Chloride (Klor-Con 20) 20 meq BID PO Last administered on 12/01/16 08:46; Admin Dose 20 MEQ; Start 11/22/16 at 21:00 Albuterol (Ventolin Hfa) 2 puff Q4H PRN INH WHEEZING AND SOB; Start 11/22/16 at 18:30 Simethicone (Mylicon) 80 mg QID PRN GTB DISTENSION/GAS/BLOATING Last administered on 11/28/16 22:20; Admin Dose 80 MG; Start 11/24/16 at 01:00 Famotidine 20 mg 20 mg Q24H PO Last administered on 12/01/16 06:05; Admin Dose 20 MG; Start 11/24/16 at 01:00 Vancomycin HCl/ Sodium Chloride (Vancocin/NS) 100 ml @ 100 mls/hr Q12H IVPB ; Start 12/01/16 at 18:00 ROHAN VELÁZQUEZ MD December 01, 2016 16:28
--- NOTE | 2016-12-01 17:55 | CONS ---
Date/Time of Note Date/Time of Note DATE: 12/01/16 TIME: 17:55 Consultation Date/Type/Reason Admit Date/Time November 22, 2016 at 06:16 Respiratory: no complaints Cardiovascular: no complaints Gastrointestinal: no complaints Genitourinary: no complaints Musculoskeletal: no complaints Skin: no complaints Neurologic: no complaints Psychological: nl mood/affect Past Surgical History Past Surgical Hx: bowel resection, other Social History Smoking Status: Never smoker Exam/Review of Systems Vital Signs Vitals Vital Signs Date Time Temp Pulse Resp B/P Pulse Ox O2 Delivery O2 Flow Rate FiO2 12/01/16 16:22 106 12/01/16 16:22 97.4 18 96/58 97 Intake and Output 11/30/16 11/30/16 12/01/16 15:00 23:00 07:00 Intake Total 1800 ml 630 ml Output Total 700 ml Balance 1100 ml 630 ml Results Result Diagram: 12/01/16 0440 12/01/16 0440 Results 24 hrs Laboratory Tests Test 12/01/16 04:40 12/01/16 11:35 White Blood Count 8.7 Red Blood Count 3.66 L Hemoglobin 11.6 L Hematocrit 35.0 L Mean Corpuscular Volume 95.6 Mean Corpuscular Hemoglobin 31.7 Mean Corpuscular Hemoglobin Concent 33.1 Red Cell Distribution Width 13.2 Platelet Count 378 Mean Platelet Volume 9.5 Neutrophils % 66.0 Lymphocytes % 8.8 L Monocytes % 7.7 Eosinophils % 15.7 H Basophils % 0.5 Nucleated Red Blood Cells % 0.0 Neutrophils # 5.7 Lymphocytes # 0.8 Monocytes # 0.7 Eosinophils # 1.4 H Basophils # 0.0 Nucleated Red Blood Cells # 0.0 Sodium Level 141 Potassium Level 4.5 Chloride Level 95 L Carbon Dioxide Level 29 Anion Gap 22 H Blood Urea Nitrogen 39 H Creatinine 0.93 Glucose Level 99 Calcium Level 9.6 Vancomycin Level Trough 15.1 Lactic Acid Level 3.1 H Medications Medications Current Medications Dextrose ONCE PRN IV POC BLOOD GLUCOSE <250 MG/DL Last administered on 01:44; Admin Dose 50 ML; Start 11/22/16 at 01:30 Sodium Chloride 1,000 ml @ 50 mls/hr Q20H IV Last administered on 11/29/16 15 :16; Admin Dose 50 MLS/HR; Start 11/22/16 at 06:30 Cefepime HCl (Maxipime 1gm/50 ml (Pmx)) 50 ml @ 100 mls/hr Q12 IVPB Last administered on 12/01/16 08:46; Admin Dose 100 MLS/HR; Start 11/22/16 at 09:00 Acetaminophen (Tylenol Tab) 500 mg Q4H PRN PO PAIN AND OR ELEVATED TEMP Last administered on 11/24/16 02:45; Admin Dose 500 MG; Start 11/22/16 at 18:00 Fluticasone Propionate (Flonase 0.05% Nasal) 2 spray DAILY PRN NASAL PRN; Start 11/22/16 at 18:00 Folic Acid (Folic Acid) 1 mg DAILY PO Last administered on 12/01/16 08:46; Admin Dose 1 MG; Start 11/23/16 at 09:00 Hydroxyzine Pamoate (Vistaril) 25 mg QHS PRN PO ITCHING Last administered on 21:43; Admin Dose 25 MG; Start 11/22/16 at 18:00 Magnesium Chloride (Mag 64) 64 mg BID PO Last administered on 12/01/16 08:46; Admin Dose 64 MG; Start 11/23/16 at 09:00 Midodrine (Proamatine) 2.5 mg BID@17 PRN PO SBP <90; Start 11/22/16 at 18:00 Potassium Chloride (Klor-Con 20) 20 meq BID PO Last administered on 12/01/16 08:46; Admin Dose 20 MEQ; Start 11/22/16 at 21:00 Albuterol (Ventolin Hfa) 2 puff Q4H PRN INH WHEEZING AND SOB; Start 11/22/16 at 18:30 Simethicone (Mylicon) 80 mg QID PRN GTB DISTENSION/GAS/BLOATING Last administered on 11/28/16 22:20; Admin Dose 80 MG; Start 11/24/16 at 01:00 Famotidine 20 mg 20 mg Q24H PO Last administered on 12/01/16 06:05; Admin Dose 20 MG; Start 11/24/16 at 01:00 Vancomycin HCl/ Sodium Chloride (Vancocin/NS) 100 ml @ 100 mls/hr Q12H IVPB ; Start 12/01/16 at 18:00 LISS MALDONADO MD December 01, 2016 17:55
[2016-12-01] MEDS: VANCOMYCIN 450 MG in SOD CHLORIDE 0.9% 100 ML IVPB SCH (19:48)
[2016-12-02] VITALS (11 sets, daily range): BP systolic 93–109; BP diastolic 55–60; PULSE 81–98; RESP 17–20
[2016-12-02] MEDS: FAMOTIDINE 20 MG TAB PO SCH (05:37)
[2016-12-02] MEDS: VANCOMYCIN 450 MG in SOD CHLORIDE 0.9% 100 ML IVPB SCH ×2 (05:37→17:54)
[2016-12-02] MEDS: SOD CHLORIDE 0.9% 1,000 ML IV SCH (05:38)
[2016-12-02 08:59] LABS: CREATININE 0.79 mg/dl (0.44-1.00)
[2016-12-02] MEDS: CEFEPIME 1GM/50 ML (PMX) 50 ML IVPB SCH ×2 (09:09→21:14)
[2016-12-02] MEDS: FOLIC ACID 1 MG TAB PO SCH (09:09)
[2016-12-02] MEDS: MAGNESIUM CHLORIDE (SR) 64 MG TAB PO SCH ×2 (09:09→21:15)
[2016-12-02] MEDS: POTASSIUM CHLORIDE (SR) 20 MEQ TAB PO SCH ×2 (09:09→21:15)
--- NOTE | 2016-12-02 14:03 | CONS ---
Date/Time of Note Date/Time of Note DATE: 12/02/16 TIME: 14:02 Assessment/Plan Assessment/Plan Additional Assessment/Plan 1. Acute kidney injury, likely secondary to severe prerenal azotemia causing ischemic acute tubular necrosis. 2. 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 Hypomagnesemia severe- resolved 4. 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 5. Severe sepsis with possible shock. Plan: continue current PO K replacement, other electrolytes stable will follow up Cr normal, conitnue IVF NS at current rate will follow up Consultation Date/Type/Reason Admit Date/Time November 22, 2016 at 06:16 Initial Consult Date November Type of Consultation: NEPHROLOGY Referring Provider: CARLOS RODRIGUEZ MD Exam/Review of Systems Vital Signs Vitals Vital Signs Date Time Temp Pulse Resp B/P Pulse Ox O2 Delivery O2 Flow Rate FiO2 12/02/16 11:25 98.5 89 20 93/58 100 Intake and Output 12/01/16 12/01/16 12/02/16 15:00 23:00 07:00 Intake Total 50 ml 1900 ml 1530 ml Output Total 800 ml 600 ml Balance 50 ml 1100 ml 930 ml Exam GENERAL: Awake, alert, in mild to moderate distress. HEENT: Normal. Oropharynx clear. Dry mucous membrane, no JVD, no lymphadenopathy. LUNGS: Decreased breath sounds at both lung bases. No crackles, no wheezes. HEART: S1, S2, with regular rhythm, no murmur. ABDOMEN: Tender to palpation diffusely with ileostomy in place. EXTREMITIES: Mild to 1+ pitting edema. NEUROLOGICAL: Nonfocal, intact. PSYCHIATRIC: Appropriate affect and mood. Results Result Diagram: 12/01/16 0440 12/02/16 0820 Results 24 hrs Laboratory Tests Test 12/02/16 08:20 Blood Urea Nitrogen 34 H Creatinine 0.79 Medications Medications Current Medications Dextrose ONCE PRN IV POC BLOOD GLUCOSE <250 MG/DL Last administered on 01:44; Admin Dose 50 ML; Start 11/22/16 at 01:30 Sodium Chloride 1,000 ml @ 50 mls/hr Q20H IV Last administered on 12/02/16 05 :38; Admin Dose 50 MLS/HR; Start 11/22/16 at 06:30 Cefepime HCl (Maxipime 1gm/50 ml (Pmx)) 50 ml @ 100 mls/hr Q12 IVPB Last administered on 12/02/16 09:09; Admin Dose 100 MLS/HR; Start 11/22/16 at 09:00 Acetaminophen (Tylenol Tab) 500 mg Q4H PRN PO PAIN AND OR ELEVATED TEMP Last administered on 11/24/16 02:45; Admin Dose 500 MG; Start 11/22/16 at 18:00 Fluticasone Propionate (Flonase 0.05% Nasal) 2 spray DAILY PRN NASAL PRN; Start 11/22/16 at 18:00 Folic Acid (Folic Acid) 1 mg DAILY PO Last administered on 12/02/16 09:09; Admin Dose 1 MG; Start 11/23/16 at 09:00 Hydroxyzine Pamoate (Vistaril) 25 mg QHS PRN PO ITCHING Last administered on 21:43; Admin Dose 25 MG; Start 11/22/16 at 18:00 Magnesium Chloride (Mag 64) 64 mg BID PO Last administered on 12/02/16 09:09; Admin Dose 64 MG; Start 11/23/16 at 09:00 Midodrine (Proamatine) 2.5 mg BID@ PRN PO SBP <90; Start 11/22/16 at 18:00 Potassium Chloride (Klor-Con 20) 20 meq BID PO Last administered on 12/02/16 09:09; Admin Dose 20 MEQ; Start 11/22/16 at 21:00 Albuterol (Ventolin Hfa) 2 puff Q4H PRN INH WHEEZING AND SOB; Start 11/22/16 at 18:30 Simethicone (Mylicon) 80 mg QID PRN GTB DISTENSION/GAS/BLOATING Last administered on 11/28/16 22:20; Admin Dose 80 MG; Start 11/24/16 at 01:00 Famotidine 20 mg 20 mg Q24H PO Last administered on 12/02/16 05:37; Admin Dose 20 MG; Start 11/24/16 at 01:00 Vancomycin HCl/ Sodium Chloride (Vancocin/NS) 100 ml @ 100 mls/hr Q12H IVPB Last administered on 12/02/16t 05:37; Admin Dose 100 MLS/HR; Start 12/01/16 at 18:00 Cyanocobalamin (Vitamin B12 Inj) 1,000 mcg Q28D IM ; Start 12/02/16 at 17:00 ROHAN VELÁZQUEZ MD December 02, 2016 14:03
[2016-12-02] MEDS ORDERED: CYANOCOBALAMIN 1000 MCG INJ IM SCH (17:00)
--- NOTE | 2016-12-02 17:04 | PN ---
Date/Time of Note Date/Time of Note DATE: 12/02/16 TIME: 17:02 Assessment/Plan VTE Prophylaxis VTE Prophylaxis Intervention: SCD's Lines/Catheters IV C[facility]ter Type (from [facility] port Urinary Cath still in place: No Assessment/Plan Chief Complaint/Hosp Course Patient with elevated Lactate, denies N/V/ denies fever. Borderline hypotension. Pending ID consult. ASSESSMENT AND PLAN: 1. Possible sepsis with shock. Continue IV fluids, continue broad-spectrum antibiotics. Follow up on final urine and blood cultures. 2. Acute kidney injury. Continue IV fluids. Dr. Spain is following in nephrology consultation. Continue to monitor hemoglobin and hematocrit. 3. Acute hyperkalemia, status post Kayexalate. Continue to monitor potassium. 4. Hyponatremia. Continue IV fluids. 5. Hirschsprung disease. 6. Ileostomy. 7. Right chest Port-A-Cath inserted on 11/15/2016. Continue Protonix for peptic ulcer disease prophylaxis and sequential compression devices for deep venous thrombosis prophylaxis. Further recommendations based on clinical course. Plan of care discussed with Dr. Paez. Problems: Exam/Review of Systems Vital Signs Vitals Vital Signs Date Time Temp Pulse Resp B/P Pulse Ox O2 Delivery O2 Flow Rate FiO2 12/02/16 16:12 98 12/02/16 16:00 97.8 17 100/55 99 Intake and Output 12/01/16 12/01/16 12/02/16 15:00 23:00 07:00 Intake Total 50 ml 1900 ml 1530 ml Output Total 800 ml 600 ml Balance 50 ml 1100 ml 930 ml Exam Constitutional: alert, oriented Psych: nl mood/affect, no complaints Head: atraumatic, normocephalic Eyes: nl conjunctiva Neck: non-tender, supple Respiratory: clear to auscultation, normal air movement Cardiovascular: nl pulses, regular rate and rhythm Gastrointestinal: non-tender, other (ileostomy), soft Musculoskeletal: nl extremities to inspection 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: [employer]ODUCT TRAINER II-XII intact Results Result Diagram: 12/01/16 0440 12/02/16 0820 Results 24 hrs Laboratory Tests Test 12/02/16 08:20 Blood Urea Nitrogen 34 H Creatinine 0.79 Medications Medications Current Medications Dextrose ONCE PRN IV POC BLOOD GLUCOSE <250 MG/DL Last administered on t 01:44; Admin Dose 50 ML; Start 11/22/16 at 01:30 Sodium Chloride 1,000 ml @ 50 mls/hr Q20H IV Last administered on 12/02/16 05 :38; Admin Dose 50 MLS/HR; Start 11/22/16 at 06:30 Cefepime HCl (Maxipime 1gm/50 ml (Pmx)) 50 ml @ 100 mls/hr Q12 IVPB Last administered on 12/02/16 09:09; Admin Dose 100 MLS/HR; Start 11/22/16 at 09:00 Acetaminophen (Tylenol Tab) 500 mg Q4H PRN PO PAIN AND OR ELEVATED TEMP Last administered on 11/24/16 02:45; Admin Dose 500 MG; Start 11/22/16 at 18:00 Fluticasone Propionate (Flonase 0.05% Nasal) 2 spray DAILY PRN NASAL PRN; Start 11/22/16 at 18:00 Folic Acid (Folic Acid) 1 mg DAILY PO Last administered on 12/02/16 09:09; Admin Dose 1 MG; Start 11/23/16 at 09:00 Hydroxyzine Pamoate (Vistaril) 25 mg QHS PRN PO ITCHING Last administered on 21:43; Admin Dose 25 MG; Start 11/22/16 at 18:00 Magnesium Chloride (Mag 64) 64 mg BID PO Last administered on 12/02/16 09:09; Admin Dose 64 MG; Start 11/23/16 at 09:00 Midodrine (Proamatine) 2.5 mg BID@17 PRN PO SBP <90; Start 11/22/16 at 18:00 Potassium Chloride (Klor-Con 20) 20 meq BID PO Last administered on 12/02/16 09:09; Admin Dose 20 MEQ; Start 11/22/16 at 21:00 Albuterol (Ventolin Hfa) 2 puff Q4H PRN INH WHEEZING AND SOB; Start 11/22/16 at 18:30 Simethicone (Mylicon) 80 mg QID PRN GTB DISTENSION/GAS/BLOATING Last administered on 11/28/16 22:20; Admin Dose 80 MG; Start 11/24/16 at 01:00 Famotidine 20 mg 20 mg Q24H PO Last administered on 12/02/16 05:37; Admin Dose 20 MG; Start 11/24/16 at 01:00 Vancomycin HCl/ Sodium Chloride (Vancocin/NS) 100 ml @ 100 mls/hr Q12H IVPB Last administered on 12/02/16 05:37; Admin Dose 100 MLS/HR; Start 12/01/16 at 18:00 Cyanocobalamin (Vitamin B12 Inj) 1,000 mcg Q28D IM Last administered on 16:08; Admin Dose 1,000 MCG; Start 12/02/16 at 17:00 ROMI ESPINO December 02, 2016 17:04
--- NOTE | 2016-12-02 17:43 | CONS ---
Date/Time of Note Date/Time of Note DATE: 12/02/16 TIME: 17:43 Assessment/Plan Assessment/Plan Chief Complaint/Hosp Course Patient seen and examined. full note to follow Problems: Consultation Date/Type/Reason Admit Date/Time November 22, 2016 at 06:16 Initial Consult Date Type of Consultation: id Referring Provider: CARLOS RODRIGUEZ MD Exam/Review of Systems Vital Signs Vitals Vital Signs Date Time Temp Pulse Resp B/P Pulse Ox O2 Delivery O2 Flow Rate FiO2 12/02/16 16:12 98 12/02/16 16:00 97.8 17 100/55 99 Intake and Output 12/01/16 12/01/16 12/02/16 15:00 23:00 07:00 Intake Total 50 ml 1900 ml 1530 ml Output Total 800 ml 600 ml Balance 50 ml 1100 ml 930 ml Results Result Diagram: 12/01/16 0440 12/02/16 0820 Results 24 hrs Laboratory Tests Test 12/02/16 08:20 Blood Urea Nitrogen 34 H Creatinine 0.79 Medications Medications Current Medications Dextrose ONCE PRN IV POC BLOOD GLUCOSE <250 MG/DL Last administered on 01:44; Admin Dose 50 ML; Start 11/22/16 at 01:30 Sodium Chloride 1,000 ml @ 50 mls/hr Q20H IV Last administered on 12/02/16 05 :38; Admin Dose 50 MLS/HR; Start 11/22/16 at 06:30 Cefepime HCl (Maxipime 1gm/50 ml (Pmx)) 50 ml @ 100 mls/hr Q12 IVPB Last administered on 12/02/16 09:09; Admin Dose 100 MLS/HR; Start 11/22/16 at 09:00 Acetaminophen (Tylenol Tab) 500 mg Q4H PRN PO PAIN AND OR ELEVATED TEMP Last administered on 11/24/16 02:45; Admin Dose 500 MG; Start 11/22/16 at 18:00 Fluticasone Propionate (Flonase 0.05% Nasal) 2 spray DAILY PRN NASAL PRN; Start 11/22/16 at 18:00 Folic Acid (Folic Acid) 1 mg DAILY PO Last administered on 12/02/16 09:09; Admin Dose 1 MG; Start 11/23/16 at 09:00 Hydroxyzine Pamoate (Vistaril) 25 mg QHS PRN PO ITCHING Last administered on 21:43; Admin Dose 25 MG; Start 11/22/16 at 18:00 Magnesium Chloride (Mag 64) 64 mg BID PO Last administered on 12/02/16 09:09; Admin Dose 64 MG; Start 11/23/16 at 09:00 Midodrine (Proamatine) 2.5 mg BID@09,17 PRN PO SBP <90; Start 11/22/16 at 18:00 Potassium Chloride (Klor-Con 20) 20 meq BID PO Last administered on 12/02/16 09:09; Admin Dose 20 MEQ; Start 11/22/16 at 21:00 Albuterol (Ventolin Hfa) 2 puff Q4H PRN INH WHEEZING AND SOB; Start 11/22/16 at 18:30 Simethicone (Mylicon) 80 mg QID PRN GTB DISTENSION/GAS/BLOATING Last administered on 11/28/16 22:20; Admin Dose 80 MG; Start 11/24/16 at 01:00 Famotidine 20 mg 20 mg Q24H PO Last administered on 12/02/16 05:37; Admin Dose 20 MG; Start 11/24/16 at 01:00 Vancomycin HCl/ Sodium Chloride (Vancocin/NS) 100 ml @ 100 mls/hr Q12H IVPB Last administered on 12/02/16 05:37; Admin Dose 100 MLS/HR; Start 12/01/16 at 18:00 Cyanocobalamin (Vitamin B12 Inj) 1,000 mcg Q28D IM Last administered on 16:08; Admin Dose 1,000 MCG; Start 12/02/16 at 17:00 LISS MALDONADO MD December 02, 2016 17:43
[2016-12-03] VITALS (12 sets, daily range): BP systolic 100–111; BP diastolic 55–61; PULSE 90–122; RESP 18–19
[2016-12-03] MEDS: FAMOTIDINE 20 MG TAB PO SCH (01:00)
[2016-12-03] MEDS: SOD CHLORIDE 0.9% 1,000 ML IV SCH ×2 (02:28→21:37)
[2016-12-03] MEDS: VANCOMYCIN 450 MG in SOD CHLORIDE 0.9% 100 ML IVPB SCH (06:57)
[2016-12-03 07:46] LABS: ADD SCAN DIFF NO
[2016-12-03 07:54] LABS: BASOPHIL # 0.1 10^3/ul (0.0-0.1); BASOPHILS % 0.8 % (0.0-2.0); EOSINOPHILS # 1.1 10^3/ul (0.0-0.5); EOSINOPHILS % 14.7 % (0.0-7.0); HEMATOCRIT 39.7 % (37.0-47.0); HEMOGLOBIN 13.2 g/dl (12.0-16.0); LYMPHOCYTES # 1.2 10^3/ul (0.8-2.9); LYMPHOCYTES % 15.3 % (15.0-51.0); MEAN CORPUSCULAR HGB CONC 33.2 g/dl (32.0-37.0); MEAN CORPUSCULAR VOLUME 96.1 fl (82.0-101.0); MEAN PLATELET VOLUME 9.8 fl (7.4-10.4); MONOCYTE # 0.6 10^3/ul (0.3-0.9); MONOCYTES % 7.3 % (0.0-11.0); NEUTROPHIL # 4.6 10^3/ul (1.6-7.5); PLATELET COUNT 381 10^3/UL (140-415); RED BLOOD COUNT 4.13 10^6/ul (4.20-5.40); RED CELL DISTRIBUTION WIDTH 13.1 % (11.5-14.5); WHITE BLOOD COUNT 7.5 10^3/ul (4.8-10.8)
[2016-12-03 08:26] LABS: POTASSIUM 4.4 mmol/L (3.5-5.1)
[2016-12-03 08:29] LABS: CREATININE 0.89 mg/dl (0.44-1.00)
[2016-12-03 08:30] LABS: CALCIUM 9.8 mg/dl (8.4-10.2)
[2016-12-03] MEDS: MAGNESIUM CHLORIDE (SR) 64 MG TAB PO SCH ×2 (09:04→21:32)
[2016-12-03] MEDS: POTASSIUM CHLORIDE (SR) 20 MEQ TAB PO SCH ×2 (09:04→21:33)
[2016-12-03] MEDS: FOLIC ACID 1 MG TAB PO SCH (09:04)
--- NOTE | 2016-12-03 09:37 | CONS ---
Date/Time of Note Date/Time of Note DATE: 12/03/16 TIME: 09:36 Assessment/Plan Assessment/Plan Additional Assessment/Plan 1. Acute kidney injury, likely secondary to severe prerenal azotemia causing ischemic acute tubular necrosis. 2. 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 Hypomagnesemia severe- resolved 4. 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 5. Severe sepsis with possible shock. Plan: continue current PO K replacement, other electrolytes stable , K 4.4 will follow up Cr normal, conitnue IVF NS at current rate will follow up Consultation Date/Type/Reason Admit Date/Time November 22, 2016 at 06:16 Initial Consult Date November Type of Consultation: NEPHROLOGY Referring Provider: CARLOS RODRIGUEZ MD 24 HR Interval Summary Free Text/Dictation pt afebrile, Bp stable, on IV abx, Lactic acid still running high Exam/Review of Systems Vital Signs Vitals Vital Signs Date Time Temp Pulse Resp B/P Pulse Ox O2 Delivery O2 Flow Rate FiO2 12/03/16 08:12 95 12/03/16 07:50 97.9 18 104/61 99 Intake and Output 12/02/16 12/02/16 12/03/16 15:00 23:00 07:00 Intake Total 500 ml Output Total 600 ml Balance -100 ml Exam GENERAL: Awake, alert, in mild to moderate distress. HEENT: Normal. Oropharynx clear. Dry mucous membrane, no JVD, no lymphadenopathy. LUNGS: Decreased breath sounds at both lung bases. No crackles, no wheezes. HEART: S1, S2, with regular rhythm, no murmur. ABDOMEN: Tender to palpation diffusely with ileostomy in place. EXTREMITIES: Mild to 1+ pitting edema. NEUROLOGICAL: Nonfocal, intact. PSYCHIATRIC: Appropriate affect and mood. Results Result Diagram: 12/03/16 0700 12/03/16 0700 Results 24 hrs Laboratory Tests Test 12/03/16 07:00 White Blood Count 7.5 Red Blood Count 4.13 L Hemoglobin 13.2 Hematocrit 39.7 Mean Corpuscular Volume 96.1 Mean Corpuscular Hemoglobin 32.0 Mean Corpuscular Hemoglobin Concent 33.2 Red Cell Distribution Width 13.1 Platelet Count 381 Mean Platelet Volume 9.8 Neutrophils % 61.0 Lymphocytes % 15.3 Monocytes % 7.3 Eosinophils % 14.7 H Basophils % 0.8 Nucleated Red Blood Cells % 0.0 Neutrophils # 4.6 Lymphocytes # 1.2 Monocytes # 0.6 Eosinophils # 1.1 H Basophils # 0.1 Nucleated Red Blood Cells # 0.0 Sodium Level 142 Potassium Level 4.4 Chloride Level 101 Carbon Dioxide Level 24 Anion Gap 21 H Blood Urea Nitrogen 34 H Creatinine 0.89 Glucose Level 122 Calcium Level 9.8 Medications Medications Current Medications Dextrose ONCE PRN IV POC BLOOD GLUCOSE <250 MG/DL Last administered on 01:44; Admin Dose 50 ML; Start 11/22/16 at 01:30 Sodium Chloride 1,000 ml @ 50 mls/hr Q20H IV Last administered on 12/02/16 05 :38; Admin Dose 50 MLS/HR; Start 11/22/16 at 06:30 Cefepime HCl (Maxipime 1gm/50 ml (Pmx)) 50 ml @ 100 mls/hr Q12 IVPB Last administered on 12/02/16 21:14; Admin Dose 100 MLS/HR; Start 11/22/16 at 09:00 Acetaminophen (Tylenol Tab) 500 mg Q4H PRN PO PAIN AND OR ELEVATED TEMP Last administered on 11/24/16 02:45; Admin Dose 500 MG; Start 11/22/16 at 18:00 Fluticasone Propionate (Flonase 0.05% Nasal) 2 spray DAILY PRN NASAL PRN; Start 11/22/16 at 18:00 Folic Acid (Folic Acid) 1 mg DAILY PO Last administered on 12/03/16 09:04; Admin Dose 1 MG; Start 11/23/16 at 09:00 Hydroxyzine Pamoate (Vistaril) 25 mg QHS PRN PO ITCHING Last administered on 21:43; Admin Dose 25 MG; Start 11/22/16 at 18:00 Magnesium Chloride (Mag 64) 64 mg BID PO Last administered on 12/03/16 09:04; Admin Dose 64 MG; Start 11/23/16 at 09:00 Midodrine (Proamatine) 2.5 mg BID@ PRN PO SBP <90; Start 11/22/16 at 18:00 Potassium Chloride (Klor-Con 20) 20 meq BID PO Last administered on 12/03/16 09:04; Admin Dose 20 MEQ; Start 11/22/16 at 21:00 Albuterol (Ventolin Hfa) 2 puff Q4H PRN INH WHEEZING AND SOB; Start 11/22/16 at 18:30 Simethicone (Mylicon) 80 mg QID PRN GTB DISTENSION/GAS/BLOATING Last administered on 11/28/16 22:20; Admin Dose 80 MG; Start 11/24/16 at 01:00 Famotidine 20 mg 20 mg Q24H PO Last administered on 12/02/16 05:37; Admin Dose 20 MG; Start 11/24/16 at 01:00 Vancomycin HCl/ Sodium Chloride (Vancocin/NS) 100 ml @ 100 mls/hr Q12H IVPB Last administered on 12/03/16 06:57; Admin Dose 100 MLS/HR; Start 12/01/16 at 18:00 Cyanocobalamin (Vitamin B12 Inj) 1,000 mcg Q28D IM Last administered on 16:08; Admin Dose 1,000 MCG; Start 12/02/16 at 17:00 ROHAN VELÁZQUEZ MD December 03, 2016 09:37
--- NOTE | 2016-12-03 09:53 | CONS ---
Date/Time of Note Date/Time of Note DATE: 12/03/16 TIME: 09:48 Assessment/Plan Assessment/Plan Chief Complaint/Hosp Course 1. ARF and electrolyte disturbances 2. Sepsis vs. SIRS; cxs negative 3. Hirschsprungs disease 4. Hx of MSSA bacterremia completed courses of abx 5. multiple chronic medical problems R: 1. 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 She has completed courses of IV abx. She has most recently been admitted approx 11.21.16. She was noted to be dizzy, dehydrated, arf and electrolyte disturbances. She has been on Vanco and Cefepime. All cxs have returned negative. Respiratory: no complaints Cardiovascular: no complaints Gastrointestinal: no complaints Genitourinary: no complaints Musculoskeletal: no complaints Skin: no complaints Neurologic: no complaints Psychological: nl mood/affect, no complaints Past Surgical History Past Surgical Hx: bowel resection, other Social History Smoking Status: Never smoker Exam/Review of Systems Vital Signs Vitals Vital Signs Date Time Temp Pulse Resp B/P Pulse Ox O2 Delivery O2 Flow Rate FiO2 12/03/16 08:12 95 12/03/16 07:50 97.9 18 104/61 99 Intake and Output 12/02/16 12/02/16 12/03/16 15:00 23:00 07:00 Intake Total 500 ml Output Total 600 ml Balance -100 ml Exam Constitutional: alert, oriented, well developed Psych: nl mood/affect, no complaints Head: atraumatic, normocephalic Eyes: EOMI, PERRL, nl conjunctiva, nl lids, nl sclera ENMT: nl external ears & nose, nl lips & teeth, nl nasal mucosa & septum Neck: non-tender, supple Respiratory: clear to auscultation, normal air movement Cardiovascular: nl pulses, regular rate and rhythm Musculoskeletal: nl extremities to inspection, nl gait and stance Results Result Diagram: 12/03/16 0700 12/03/16 0700 Results 24 hrs Laboratory Tests Test 12/03/16 07:00 White Blood Count 7.5 Red Blood Count 4.13 L Hemoglobin 13.2 Hematocrit 39.7 Mean Corpuscular Volume 96.1 Mean Corpuscular Hemoglobin 32.0 Mean Corpuscular Hemoglobin Concent 33.2 Red Cell Distribution Width 13.1 Platelet Count 381 Mean Platelet Volume 9.8 Neutrophils % 61.0 Lymphocytes % 15.3 Monocytes % 7.3 Eosinophils % 14.7 H Basophils % 0.8 Nucleated Red Blood Cells % 0.0 Neutrophils # 4.6 Lymphocytes # 1.2 Monocytes # 0.6 Eosinophils # 1.1 H Basophils # 0.1 Nucleated Red Blood Cells # 0.0 Sodium Level 142 Potassium Level 4.4 Chloride Level 101 Carbon Dioxide Level 24 Anion Gap 21 H Blood Urea Nitrogen 34 H Creatinine 0.89 Glucose Level 122 Calcium Level 9.8 Medications Medications Current Medications Dextrose ONCE PRN IV POC BLOOD GLUCOSE <250 MG/DL Last administered on 01:44; Admin Dose 50 ML; Start 11/22/16 at 01:30 Sodium Chloride 1,000 ml @ 50 mls/hr Q20H IV Last administered on 12/02/16 05 :38; Admin Dose 50 MLS/HR; Start 11/22/16 at 06:30 Cefepime HCl (Maxipime 1gm/50 ml (Pmx)) 50 ml @ 100 mls/hr Q12 IVPB Last administered on 12/02/16 21:14; Admin Dose 100 MLS/HR; Start 11/22/16 at 09:00 Acetaminophen (Tylenol Tab) 500 mg Q4H PRN PO PAIN AND OR ELEVATED TEMP Last administered on 11/24/16 02:45; Admin Dose 500 MG; Start 11/22/16 at 18:00 Fluticasone Propionate (Flonase 0.05% Nasal) 2 spray DAILY PRN NASAL PRN; Start 11/22/16 at 18:00 Folic Acid (Folic Acid) 1 mg DAILY PO Last administered on 12/03/16 09:04; Admin Dose 1 MG; Start 11/23/16 at 09:00 Hydroxyzine Pamoate (Vistaril) 25 mg QHS PRN PO ITCHING Last administered on 21:43; Admin Dose 25 MG; Start 11/22/16 at 18:00 Magnesium Chloride (Mag 64) 64 mg BID PO Last administered on 12/03/16 09:04; Admin Dose 64 MG; Start 11/23/16 at 09:00 Midodrine (Proamatine) 2.5 mg BID@,17 PRN PO SBP <90; Start 11/22/16 at 18:00 Potassium Chloride (Klor-Con 20) 20 meq BID PO Last administered on 12/03/16 09:04; Admin Dose 20 MEQ; Start 11/22/16 at 21:00 Albuterol (Ventolin Hfa) 2 puff Q4H PRN INH WHEEZING AND SOB; Start 11/22/16 at 18:30 Simethicone (Mylicon) 80 mg QID PRN GTB DISTENSION/GAS/BLOATING Last administered on 11/28/16 22:20; Admin Dose 80 MG; Start 11/24/16 at 01:00 Famotidine 20 mg 20 mg Q24H PO Last administered on 12/02/16 05:37; Admin Dose 20 MG; Start 11/24/16 at 01:00 Vancomycin HCl/ Sodium Chloride (Vancocin/NS) 100 ml @ 100 mls/hr Q12H IVPB Last administered on 12/03/16 06:57; Admin Dose 100 MLS/HR; Start 12/01/16 at 18:00 Cyanocobalamin (Vitamin B12 Inj) 1,000 mcg Q28D IM Last administered on 16:08; Admin Dose 1,000 MCG; Start 12/02/16 at 17:00 LISS MALDONADO MD December 03, 2016 09:53
--- NOTE | 2016-12-03 18:28 | PN ---
Date/Time of Note Date/Time of Note DATE: 12/03/16 TIME: 18:26 Assessment/Plan VTE Prophylaxis VTE Prophylaxis Intervention: SCD's Lines/Catheters IV [facility]ter Type (from [facility]): Peripheral IV Urinary Cath still in place: No (NO F/C) Assessment/Plan Chief Complaint/Hosp Course Patient is remains afebrile off antibiotics, continue to monitor, get out of bed with physical therapy, anticipate discharge tomorrow. ASSESSMENT AND PLAN: 1. Possible sepsis with shock, status post antibiotics. Dr. Tomlinson is following an infection disease consultation, continue to monitor off antibiotics. 2. Acute kidney injury. Continue IV fluids. Dr. Spain is following in nephrology consultation. Continue to monitor hemoglobin and hematocrit. 3. Acute hyperkalemia, status post Kayexalate. Continue to monitor potassium. 4. Hyponatremia. Continue IV fluids. 5. Hirschsprung disease. 6. Ileostomy. 7. Right chest Port-A-Cath inserted on 11/15/2016. Continue Protonix for peptic ulcer disease prophylaxis and sequential compression devices for deep venous thrombosis prophylaxis. Further recommendations based on clinical course. Plan of care discussed with Dr. Paez. Problems: Exam/Review of Systems Vital Signs Vitals Vital Signs Date Time Temp Pulse Resp B/P Pulse Ox O2 Delivery O2 Flow Rate FiO2 12/03/16 16:42 92 12/03/16 16:16 98.1 18 100/60 99 Intake and Output 12/02/16 12/02/16 12/03/16 15:00 23:00 07:00 Intake Total 500 ml Output Total 600 ml Balance -100 ml Exam Constitutional: alert, oriented Psych: nl mood/affect, no complaints Head: atraumatic, normocephalic Eyes: nl conjunctiva Neck: non-tender, supple Respiratory: clear to auscultation, normal air movement Cardiovascular: nl pulses, regular rate and rhythm Gastrointestinal: non-tender, other (ileostomy), soft Musculoskeletal: nl extremities to inspection 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: [employer] MEMBER II-XII intact Results Result Diagram: 12/03/16 0700 12/03/16 0700 Results 24 hrs Laboratory Tests Test 12/03/16 07:00 White Blood Count 7.5 Red Blood Count 4.13 L Hemoglobin 13.2 Hematocrit 39.7 Mean Corpuscular Volume 96.1 Mean Corpuscular Hemoglobin 32.0 Mean Corpuscular Hemoglobin Concent 33.2 Red Cell Distribution Width 13.1 Platelet Count 381 Mean Platelet Volume 9.8 Neutrophils % 61.0 Lymphocytes % 15.3 Monocytes % 7.3 Eosinophils % 14.7 H Basophils % 0.8 Nucleated Red Blood Cells % 0.0 Neutrophils # 4.6 Lymphocytes # 1.2 Monocytes # 0.6 Eosinophils # 1.1 H Basophils # 0.1 Nucleated Red Blood Cells # 0.0 Sodium Level 142 Potassium Level 4.4 Chloride Level 101 Carbon Dioxide Level 24 Anion Gap 21 H Blood Urea Nitrogen 34 H Creatinine 0.89 Glucose Level 122 Calcium Level 9.8 Medications Medications Current Medications Dextrose ONCE PRN IV POC BLOOD GLUCOSE <250 MG/DL Last administered on 01:44; Admin Dose 50 ML; Start 11/22/16 at 01:30 Sodium Chloride (NS) 1,000 ml @ 50 mls/hr Q20H IV Last administered on 05:38; Admin Dose 50 MLS/HR; Start 11/22/16 at 06:30 Acetaminophen (Tylenol Tab) 500 mg Q4H PRN PO PAIN AND OR ELEVATED TEMP Last administered on 11/24/16 02:45; Admin Dose 500 MG; Start 11/22/16 at 18:00 Fluticasone Propionate (Flonase 0.05% Nasal) 2 spray DAILY PRN NASAL PRN; Start 11/22/16 at 18:00 Folic Acid (Folic Acid) 1 mg DAILY PO Last administered on 12/03/16 09:04; Admin Dose 1 MG; Start 11/23/16 at 09:00 Hydroxyzine Pamoate (Vistaril) 25 mg QHS PRN PO ITCHING Last administered on 21:43; Admin Dose 25 MG; Start 11/22/16 at 18:00 Magnesium Chloride (Mag 64) 64 mg BID PO Last administered on 12/03/16 09:04; Admin Dose 64 MG; Start 11/23/16 at 09:00 Midodrine (Proamatine) 2.5 mg BID@ PRN PO SBP <90; Start 11/22/16 at 18:00 Potassium Chloride (Klor-Con 20) 20 meq BID PO Last administered on 12/03/16 09:04; Admin Dose 20 MEQ; Start 11/22/16 at 21:00 Albuterol (Ventolin Hfa) 2 puff Q4H PRN INH WHEEZING AND SOB; Start 11/22/16 at 18:30 Simethicone (Mylicon) 80 mg QID PRN GTB DISTENSION/GAS/BLOATING Last administered on 11/28/16 22:20; Admin Dose 80 MG; Start 11/24/16 at 01:00 Famotidine (Pepcid) 20 mg Q24H PO Last administered on 12/02/16 05:37; Admin Dose 20 MG; Start 11/24/16 at 01:00 Cyanocobalamin (Vitamin B12 Inj) 1,000 mcg Q28D IM Last administered on 16:08; Admin Dose 1,000 MCG; Start 12/02/16 at 17:00 ROMI ESPINO December 03, 2016 18:28
[2016-12-04] VITALS (10 sets, daily range): BP systolic 90–101; BP diastolic 51–60; PULSE 89–95; RESP 16–20
[2016-12-04] MEDS: FAMOTIDINE 20 MG TAB PO SCH ×2 (01:00→05:33)
[2016-12-04 08:20] LABS: ADD SCAN DIFF NO
[2016-12-04 08:26] LABS: BASOPHIL # 0.1 10^3/ul (0.0-0.1); BASOPHILS % 0.7 % (0.0-2.0); EOSINOPHILS % 13.4 % (0.0-7.0); HEMATOCRIT 38.5 % (37.0-47.0); HEMOGLOBIN 12.7 g/dl (12.0-16.0); LYMPHOCYTES # 0.9 10^3/ul (0.8-2.9); LYMPHOCYTES % 12.5 % (15.0-51.0); MEAN CORPUSCULAR HEMOGLOBIN 31.4 pg (29.0-33.0); MEAN CORPUSCULAR VOLUME 95.3 fl (82.0-101.0); MEAN PLATELET VOLUME 10.7 fl (7.4-10.4); MONOCYTE # 0.5 10^3/ul (0.3-0.9); MONOCYTES % 6.1 % (0.0-11.0); NEUTROPHILS % 66.5 % (39.0-77.0); PLATELET COUNT 303 10^3/UL (140-415); RED BLOOD COUNT 4.04 10^6/ul (4.20-5.40); RED CELL DISTRIBUTION WIDTH 13.1 % (11.5-14.5); WHITE BLOOD COUNT 7.5 10^3/ul (4.8-10.8)
[2016-12-04] MEDS: POTASSIUM CHLORIDE (SR) 20 MEQ TAB PO SCH (08:40)
[2016-12-04] MEDS: FOLIC ACID 1 MG TAB PO SCH (08:40)
[2016-12-04] MEDS: MAGNESIUM CHLORIDE (SR) 64 MG TAB PO SCH (08:40)
[2016-12-04 08:49] LABS: POTASSIUM 4.7 mmol/L (3.5-5.1)
[2016-12-04 08:51] LABS: CREATININE 0.82 mg/dl (0.44-1.00)
[2016-12-04 08:52] LABS: CALCIUM 9.9 mg/dl (8.4-10.2)
[2016-12-04] MEDS: SOD CHLORIDE 0.9% 1,000 ML IV SCH ×2 (10:50→18:28)
--- NOTE | 2016-12-04 15:12 | CONS ---
Date/Time of Note Date/Time of Note DATE: 12/03/16 TIME: 18:50 Assessment/Plan Assessment/Plan Chief Complaint/Hosp Course - S/p severe sepsis with lactic acidosis likely due to recurrent bacteremia although cultures were negative - H/o recurrent bacteremia due to MSSA, 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 TTE was negative for valvular vegetation. Recently completed a course of oxacillin. - MELBA - resolved - Hyperkalemia on admission - resolved - Hypomagnesemia - resolved - Hypotension - Hirschsprung's disease, s/p colectomy/ileostomy - H/o extensive catheterization and a concern of thrombosis leading to septic thrombophlebitis during last admission - H/o infected portacath, s/p removal in 2015 - H/o MRSA colonization Recommendations: - Monitor off abx Management d/w Pt, RN Kayla and Dr. Tomlinson Problems: Consultation Date/Type/Reason Admit Date/Time November 22, 2016 at 06:16 Initial Consult Date 12/02/16 Type of Consultation: ID Referring Provider: CARLOS RODRIGUEZ MD 24 HR Interval Summary Free Text/Dictation No new issues per d/w nursing staff. Exam/Review of Systems Vital Signs Vitals Vital Signs Date Time Temp Pulse Resp B/P Pulse Ox O2 Delivery O2 Flow Rate FiO2 12/04/16 12:00 92 12/04/16 11:50 98.2 16 90/51 100 Intake and Output 12/03/16 12/03/16 12/04/16 15:00 23:00 07:00 Intake Total 950 ml 250 ml Output Total 300 ml 400 ml 700 ml Balance -300 ml 550 ml -450 ml Exam Constitutional: alert, frail, oriented, other (thin), well developed Head: atraumatic, normocephalic Eyes: nl sclera Neck: supple Respiratory: clear to auscultation (anteriorly), other (Right chest portacath with no e/o infection) Cardiovascular: nl pulses, regular rate and rhythm Gastrointestinal: other (ielostomy with light brown stool), soft Musculoskeletal: nl extremities to inspection Extremities: No clubbing, No cyanosis, No edema 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: nl mental status, nl speech Skin: nl turgor Results Result Diagram: 12/04/16 0740 12/04/16 0740 Results 24 hrs Laboratory Tests Test 12/04/16 07:40 White Blood Count 7.5 Red Blood Count 4.04 L Hemoglobin 12.7 Hematocrit 38.5 Mean Corpuscular Volume 95.3 Mean Corpuscular Hemoglobin 31.4 Mean Corpuscular Hemoglobin Concent 33.0 Red Cell Distribution Width 13.1 Platelet Count 303 # Mean Platelet Volume 10.7 H Neutrophils % 66.5 Lymphocytes % 12.5 L Monocytes % 6.1 Eosinophils % 13.4 H Basophils % 0.7 Nucleated Red Blood Cells % 0.0 Neutrophils # 5.0 Lymphocytes # 0.9 Monocytes # 0.5 Eosinophils # 1.0 H Basophils # 0.1 Nucleated Red Blood Cells # 0.0 Sodium Level 142 Potassium Level 4.7 Chloride Level 101 Carbon Dioxide Level 26 Anion Gap 20 H Blood Urea Nitrogen 30 H Creatinine 0.82 Glucose Level 90 Calcium Level 9.9 Medications Medications Current Medications Dextrose ONCE PRN IV POC BLOOD GLUCOSE <250 MG/DL Last administered on 01:44; Admin Dose 50 ML; Start 11/22/16 at 01:30 Sodium Chloride (NS) 1,000 ml @ 50 mls/hr Q20H IV Last administered on 10:50; Admin Dose 50 MLS/HR; Start 11/22/16 at 06:30 Acetaminophen (Tylenol Tab) 500 mg Q4H PRN PO PAIN AND OR ELEVATED TEMP Last administered on 11/24/16 02:45; Admin Dose 500 MG; Start 11/22/16 at 18:00 Fluticasone Propionate (Flonase 0.05% Nasal) 2 spray DAILY PRN NASAL PRN; Start 11/22/16 at 18:00 Folic Acid (Folic Acid) 1 mg DAILY PO Last administered on 12/04/16 08:40; Admin Dose 1 MG; Start 11/23/16 at 09:00 Hydroxyzine Pamoate (Vistaril) 25 mg QHS PRN PO ITCHING Last administered on 21:43; Admin Dose 25 MG; Start 11/22/16 at 18:00 Magnesium Chloride (Mag 64) 64 mg BID PO Last administered on 12/04/16 08:40; Admin Dose 64 MG; Start 11/23/16 at 09:00 Midodrine (Proamatine) 2.5 mg BID@09,17 PRN PO SBP <90; Start 11/22/16 at 18:00 Potassium Chloride (Klor-Con 20) 20 meq BID PO Last administered on 12/04/16 08:40; Admin Dose 20 MEQ; Start 11/22/16 at 21:00 Albuterol (Ventolin Hfa) 2 puff Q4H PRN INH WHEEZING AND SOB; Start 11/22/16 at 18:30 Simethicone (Mylicon) 80 mg QID PRN GTB DISTENSION/GAS/BLOATING Last administered on 11/28/16 22:20; Admin Dose 80 MG; Start 11/24/16 at 01:00 Famotidine (Pepcid) 20 mg Q24H PO Last administered on 12/04/16 05:33; Admin Dose 20 MG; Start 11/24/16 at 01:00 Cyanocobalamin (Vitamin B12 Inj) 1,000 mcg Q28D IM Last administered on 16:08; Admin Dose 1,000 MCG; Start 12/02/16 at 17:00 RINKU BAILON NP December 04, 2016 15:09
--- NOTE | 2016-12-04 17:00 | CONS ---
Date/Time of Note Date/Time of Note DATE: 12/04/16 TIME: 16:59 Assessment/Plan Assessment/Plan Chief Complaint/Hosp Course - S/p severe sepsis with lactic acidosis likely due to recurrent bacteremia although cultures were negative - H/o recurrent bacteremia due to MSSA, 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 TTE was negative for valvular vegetation. Recently completed a course of oxacillin. - MELBA - resolved - Hyperkalemia on admission - resolved - Hypomagnesemia - resolved - Hypotension - Hirschsprung's disease, s/p colectomy/ileostomy - H/o extensive catheterization and a concern of thrombosis leading to septic thrombophlebitis during last admission - H/o infected portacath, s/p removal in 2015 - H/o MRSA colonization Recommendations: - Monitor off abx Problems: Consultation Date/Type/Reason Admit Date/Time November 22, 2016 at 06:16 Type of Consultation: ID Referring Provider: CARLOS RODRIGUEZ MD 24 HR Interval Summary Free Text/Dictation d/w nursing. Exam/Review of Systems Vital Signs Vitals Vital Signs Date Time Temp Pulse Resp B/P Pulse Ox O2 Delivery O2 Flow Rate FiO2 12/04/16 16:10 98.0 103 16 101/60 99 Intake and Output 12/03/16 12/03/16 12/04/16 15:00 23:00 07:00 Intake Total 950 ml 250 ml Output Total 300 ml 400 ml 700 ml Balance -300 ml 550 ml -450 ml Exam Constitutional: alert, oriented, well developed Psych: nl mood/affect, no complaints Head: atraumatic, normocephalic Eyes: EOMI, PERRL, nl conjunctiva, nl lids, nl sclera ENMT: nl external ears & nose, nl lips & teeth, nl nasal mucosa & septum Respiratory: clear to auscultation, normal air movement Cardiovascular: nl pulses, regular rate and rhythm Gastrointestinal: nl liver, spleen, non-tender, soft Results Result Diagram: 12/04/16 0740 12/04/16 0740 Results 24 hrs Laboratory Tests Test 12/04/16 07:40 White Blood Count 7.5 Red Blood Count 4.04 L Hemoglobin 12.7 Hematocrit 38.5 Mean Corpuscular Volume 95.3 Mean Corpuscular Hemoglobin 31.4 Mean Corpuscular Hemoglobin Concent 33.0 Red Cell Distribution Width 13.1 Platelet Count 303 # Mean Platelet Volume 10.7 H Neutrophils % 66.5 Lymphocytes % 12.5 L Monocytes % 6.1 Eosinophils % 13.4 H Basophils % 0.7 Nucleated Red Blood Cells % 0.0 Neutrophils # 5.0 Lymphocytes # 0.9 Monocytes # 0.5 Eosinophils # 1.0 H Basophils # 0.1 Nucleated Red Blood Cells # 0.0 Sodium Level 142 Potassium Level 4.7 Chloride Level 101 Carbon Dioxide Level 26 Anion Gap 20 H Blood Urea Nitrogen 30 H Creatinine 0.82 Glucose Level 90 Calcium Level 9.9 Medications Medications Current Medications Dextrose ONCE PRN IV POC BLOOD GLUCOSE <250 MG/DL Last administered on 01:44; Admin Dose 50 ML; Start 11/22/16 at 01:30 Sodium Chloride (NS) 1,000 ml @ 50 mls/hr Q20H IV Last administered on 10:50; Admin Dose 50 MLS/HR; Start 11/22/16 at 06:30 Acetaminophen (Tylenol Tab) 500 mg Q4H PRN PO PAIN AND OR ELEVATED TEMP Last administered on 11/24/16 02:45; Admin Dose 500 MG; Start 11/22/16 at 18:00 Fluticasone Propionate (Flonase 0.05% Nasal) 2 spray DAILY PRN NASAL PRN; Start 11/22/16 at 18:00 Folic Acid (Folic Acid) 1 mg DAILY PO Last administered on 12/04/16 08:40; Admin Dose 1 MG; Start 11/23/16 at 09:00 Hydroxyzine Pamoate (Vistaril) 25 mg QHS PRN PO ITCHING Last administered on 21:43; Admin Dose 25 MG; Start 11/22/16 at 18:00 Magnesium Chloride (Mag 64) 64 mg BID PO Last administered on 12/04/16 08:40; Admin Dose 64 MG; Start 11/23/16 at 09:00 Midodrine (Proamatine) 2.5 mg BID@,17 PRN PO SBP <90; Start 11/22/16 at 18:00 Potassium Chloride (Klor-Con 20) 20 meq BID PO Last administered on 12/04/16 08:40; Admin Dose 20 MEQ; Start 11/22/16 at 21:00 Albuterol (Ventolin Hfa) 2 puff Q4H PRN INH WHEEZING AND SOB; Start 11/22/16 at 18:30 Simethicone (Mylicon) 80 mg QID PRN GTB DISTENSION/GAS/BLOATING Last administered on 11/28/16 22:20; Admin Dose 80 MG; Start 11/24/16 at 01:00 Famotidine (Pepcid) 20 mg Q24H PO Last administered on 12/04/16 05:33; Admin Dose 20 MG; Start 11/24/16 at 01:00 Cyanocobalamin (Vitamin B12 Inj) 1,000 mcg Q28D IM Last administered on 16:08; Admin Dose 1,000 MCG; Start 12/02/16 at 17:00 LISS MALDONADO MD December 04, 2016 17:00
[2016-12-04] MEDS ORDERED: POTA20TA15 PO (17:25)
--- NOTE | 2016-12-04 17:47 | CONS ---
Date/Time of Note Date/Time of Note DATE: 12/04/16 TIME: 17:46 Assessment/Plan Assessment/Plan Additional Assessment/Plan 1. Acute kidney injury, likely secondary to severe prerenal azotemia causing ischemic acute tubular necrosis. 2. 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 Hypomagnesemia severe- resolved 4. 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 5. Severe sepsis with possible shock. Plan: continue current PO K replacement, other electrolytes stable , K 4.7 will follow up Cr normal, conitnue IVF NS at current rate will follow up Consultation Date/Type/Reason Admit Date/Time November 22, 2016 at 06:16 Initial Consult Date November Type of Consultation: NEPHROLOGY Referring Provider: CARLOS RODRIGUEZ MD 24 HR Interval Summary Free Text/Dictation Cr 0.82, K and Na normal Exam/Review of Systems Vital Signs Vitals Vital Signs Date Time Temp Pulse Resp B/P Pulse Ox O2 Delivery O2 Flow Rate FiO2 12/04/16 16:10 98.0 103 16 101/60 99 Intake and Output 12/03/16 12/03/16 12/04/16 15:00 23:00 07:00 Intake Total 950 ml 250 ml Output Total 300 ml 400 ml 700 ml Balance -300 ml 550 ml -450 ml Exam GENERAL: Awake, alert, in mild to moderate distress. HEENT: Normal. Oropharynx clear. Dry mucous membrane, no JVD, no lymphadenopathy. LUNGS: Decreased breath sounds at both lung bases. No crackles, no wheezes. HEART: S1, S2, with regular rhythm, no murmur. ABDOMEN: Tender to palpation diffusely with ileostomy in place. EXTREMITIES: Mild to 1+ pitting edema. NEUROLOGICAL: Nonfocal, intact. PSYCHIATRIC: Appropriate affect and mood. Results Result Diagram: 12/04/16 0740 12/04/16 0740 Results 24 hrs Laboratory Tests Test 12/04/16 07:40 White Blood Count 7.5 Red Blood Count 4.04 L Hemoglobin 12.7 Hematocrit 38.5 Mean Corpuscular Volume 95.3 Mean Corpuscular Hemoglobin 31.4 Mean Corpuscular Hemoglobin Concent 33.0 Red Cell Distribution Width 13.1 Platelet Count 303 # Mean Platelet Volume 10.7 H Neutrophils % 66.5 Lymphocytes % 12.5 L Monocytes % 6.1 Eosinophils % 13.4 H Basophils % 0.7 Nucleated Red Blood Cells % 0.0 Neutrophils # 5.0 Lymphocytes # 0.9 Monocytes # 0.5 Eosinophils # 1.0 H Basophils # 0.1 Nucleated Red Blood Cells # 0.0 Sodium Level 142 Potassium Level 4.7 Chloride Level 101 Carbon Dioxide Level 26 Anion Gap 20 H Blood Urea Nitrogen 30 H Creatinine 0.82 Glucose Level 90 Calcium Level 9.9 Medications Medications Current Medications Dextrose ONCE PRN IV POC BLOOD GLUCOSE <250 MG/DL Last administered on 01:44; Admin Dose 50 ML; Start 11/22/16 at 01:30 Sodium Chloride (NS) 1,000 ml @ 50 mls/hr Q20H IV Last administered on 10:50; Admin Dose 50 MLS/HR; Start 11/22/16 at 06:30 Acetaminophen (Tylenol Tab) 500 mg Q4H PRN PO PAIN AND OR ELEVATED TEMP Last administered on 11/24/16 02:45; Admin Dose 500 MG; Start 11/22/16 at 18:00 Fluticasone Propionate (Flonase 0.05% Nasal) 2 spray DAILY PRN NASAL PRN; Start 11/22/16 at 18:00 Folic Acid (Folic Acid) 1 mg DAILY PO Last administered on 12/04/16 08:40; Admin Dose 1 MG; Start 11/23/16 at 09:00 Hydroxyzine Pamoate (Vistaril) 25 mg QHS PRN PO ITCHING Last administered on 21:43; Admin Dose 25 MG; Start 11/22/16 at 18:00 Magnesium Chloride (Mag 64) 64 mg BID PO Last administered on 12/04/16 08:40; Admin Dose 64 MG; Start 11/23/16 at 09:00 Midodrine (Proamatine) 2.5 mg BID@ PRN PO SBP <90; Start 11/22/16 at 18:00 Potassium Chloride (Klor-Con 20) 20 meq BID PO Last administered on 12/04/16 08:40; Admin Dose 20 MEQ; Start 11/22/16 at 21:00 Albuterol (Ventolin Hfa) 2 puff Q4H PRN INH WHEEZING AND SOB; Start 11/22/16 at 18:30 Simethicone (Mylicon) 80 mg QID PRN GTB DISTENSION/GAS/BLOATING Last administered on 11/28/16 22:20; Admin Dose 80 MG; Start 11/24/16 at 01:00 Famotidine (Pepcid) 20 mg Q24H PO Last administered on 12/04/16 05:33; Admin Dose 20 MG; Start 11/24/16 at 01:00 Cyanocobalamin (Vitamin B12 Inj) 1,000 mcg Q28D IM Last administered on 16:08; Admin Dose 1,000 MCG; Start 12/02/16 at 17:00 ROHAN VELÁZQUEZ MD December 04, 2016 17:46
--- NOTE | 2016-12-09 18:18 | DS ---
DATE OF ADMISSION: 11/22/2016 DATE OF DISCHARGE: 12/04/2016 FINAL DIAGNOSES: 1. Possible sepsis with shock, resolved. 2. Acute kidney injury. 3. Acute hyperkalemia, resolved. 4. Hyponatremia, resolved. 5. History of Hirschsprung disease. 6. Ileostomy. 7. Status post right chest Port-A-Cath insertion. BRIEF HISTORY: The patient is a 41-year-old female known to me from previous admissions. 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 The patient presented to the emergency room with complaint of generalized weakness, nausea and vomiting. The patient was al so found to be hypotensive and tachycardic. White blood cell count was elevated at 11,400. Lactic acid was 4.2. The patient's potassium was elevated to 6.1 and sodium was 127. The patient's chest x-ray revealed a linear infiltrate in the left lower lobe which is improved compared to prior exam a nd also revealed a right-sided Port-A-Cath. The patient was given IV fluid and started on broad spe ctrum antibiotics. Patient was given Kayexalate for hyperkalemia and given Zofran for nausea and ad mitted for further evaluation and management. HOSPITAL COURSE: Patient was followed by Dr. Spain in nephrology consultation, electrolytes and IV fluids were managed by Dr. Spain. The patient was also evaluated by Dr. Tomlinson in infectious diseas e consultation. Patient was given broad spectrum antibiotics. Patient had blood and urine cultures were found to be negative; however, the patient's electrolytes were very closely monitored. The andreas ojeda's condition improved and leukocytosis resolved. Electrolytes were all stable and patient was discharged home. CONDITION ON DISCHARGE: Hemodynamically stable. ACTIVITY: As patient tolerates. DIET: Regular diet. DISCHARGE MEDICATIONS: The patient is to continue on home medications 1. Tylenol p.r.n. 2. ProAir. 3. Vitamin B12. 4. Pepcid. 5. Folic acid. 6. Vistaril. 7. Mag oxide. 8. Midodrine. 9. Multivitamins. DISCHARGE INSTRUCTIONS: The patient instructed to follow up with her primary care physician in 1 we ek. BMP in 1 week. Interdisciplinary plan of care was established for this patient. Plan of care was discussed with Dr Fani Rodriguez. Dictated By: ROMI ESPINO ORTHOTIST OR PROSTHETIST for CARLOS RODRIGUEZ MD SR/NTS Conf#: [id number] DID#: [id number]
== END 2016-12-04 20:13 | disposition home health service (06) | DRG 871 ==
LOC: E/R 22:01 → MS4 11-22 06:16
PROVIDERS: ADMIT Internal Medicine; ATTEND Internal Medicine
DX: A41.9 Sepsis, unspecified organism (principal); R65.21 Severe sepsis with septic shock; N17.0 Acute kidney failure with tubular necrosis; E87.0 Hyperosmolality and hypernatremia; Q43.1 Hirschsprung's disease; E83.42 Hypomagnesemia; E87.5 Hyperkalemia; Z93.2 Ileostomy status; D64.9 Anemia, unspecified; B37.3 Candidiasis of vulva and vagina
CPT/HCPCS: 71010; 80048; 80053; 80202; 81001; 81003; 82565; 82962; 83605; 83735; 84520; 85025; 85610; 85730; 87040; 87086; 93005; 94644; 96372; 96374; 96375; 97116; 97163; 97530; J0692; J1815; J2405; J2543; J3370; J3420; J3475; J3480; J7030; P9047

== ENCOUNTER 2016-12-08 06:02 | Inpatient (IN) | payer OTHER ==
[~2016-12-08] VITALS: Ht 147.3 cm; Wt 40.7 kg
[~2016-12-08 06:02] MED LIST changes: +ACET-141 PO; +MULT-853 PO; +MYL80 GTB
[2016-12-08] MEDS ORDERED: ONDANSETRON 4 MG INJ IV STA (07:07)
[2016-12-08 07:53] LABS: ADD SCAN DIFF NO
[2016-12-08 08:16] LABS: BASOPHILS % 0.4 % (0.0-2.0); EOSINOPHILS # 0.1 10^3/ul (0.0-0.5); EOSINOPHILS % 0.5 % (0.0-7.0); HEMATOCRIT 37.6 % (37.0-47.0); HEMOGLOBIN 13.3 g/dl (12.0-16.0); LYMPHOCYTES # 0.7 10^3/ul (0.8-2.9); LYMPHOCYTES % 5.9 % (15.0-51.0); MEAN CORPUSCULAR HEMOGLOBIN 31.7 pg (29.0-33.0); MEAN CORPUSCULAR HGB CONC 35.4 g/dl (32.0-37.0); MEAN CORPUSCULAR VOLUME 89.7 fl (82.0-101.0); MONOCYTE # 0.6 10^3/ul (0.3-0.9); MONOCYTES % 5.1 % (0.0-11.0); NEUTROPHIL # 9.9 10^3/ul (1.6-7.5); NEUTROPHILS % 87.5 % (39.0-77.0); PLATELET COUNT 486 10^3/UL (140-415); RED BLOOD COUNT 4.19 10^6/ul (4.20-5.40); RED CELL DISTRIBUTION WIDTH 12.6 % (11.5-14.5); WHITE BLOOD COUNT 11.3 10^3/ul (4.8-10.8)
[2016-12-08 08:34] LABS: ALBUMIN 4.8 g/dl (3.3-4.9)
[2016-12-08 08:35] LABS: POTASSIUM 4.7 mmol/L (3.5-5.1)
[2016-12-08 08:37] LABS: ALBUMIN/GLOBULIN RATIO 0.97; BILIRUBIN,INDIRECT 0.3 mg/dl (0-1.1); BILIRUBIN,TOTAL 0.3 mg/dl (0.2-1.3); CREATININE 2.4 mg/dl (0.44-1.00); TOTAL PROTEIN 9.7 g/dl (6.1-8.1)
[2016-12-08 08:38] LABS: CALCIUM 9.4 mg/dl (8.4-10.2)
[2016-12-08] MEDS ORDERED: SOD CHLORIDE 0.9% 1,000 ML IV ONE (09:00)
--- NOTE | 2016-12-08 09:10 | ERA ---
ER Documentation Chief Complaint Date/Time DATE: 12/08/16 TIME: 0703 Chief Complaint ap, vomiting since yesterday HPI 41-year-old female presents to the emergency department complaining of vomiting and generalized weakness. History available from the patient, her family members as well as from review of extensive old records including recent hospitalization. Patient has an extensive history of Hirschsprung's disease with previous episodes of hyperkalemia, hypomagnesemia, dehydration with acute kidney injury. She just recently discharged from our facility 4 days ago when she was treated for the above concerns. Patient states that since going home, she continues to have occasional diarrhea, generalized weakness. She states she is beginning to feel dehydrated and generally weak and is concerned regarding her potassium. She reports no chest pain, palpitations. She reports no fevers, chills, vomiting. ROS All systems reviewed and are negative except as per history of present illness. Medications Home Meds Active Scripts Potassium Chloride* (K-Dur*) 20 Meq Tab.prt.sr, 20 MEQ PO BID for 30 Days Prov:ROMI ESPINO 12/04/16 Simethicone* (Mylicon*) 80 Mg Tab, 80 MG GTB QID Y for DISTENSION/GAS/BLOATING for 30 Days, TAB Prov:DEVENDRA GOMES 12/01/16 Midodrine HCl (Midodrine HCl) 2.5 Mg Tablet, 2.5 MG PO BID@09,17 Y for SBP <90 for 30 Days, TAB Prov:DEVENDRA GOMES 11/16/16 Magnesium Chloride* (Mag 64*) 64 Mg Tabsr, 64 MG PO BID for 14 Days, TAB Prov:ROMI ESPINO 09/20/16 Reported Medications Acetaminophen* (Acetaminophen*) 500 MG Extra Strength Tablet, 500 MG PO Q4H Y for PAIN AND OR ELEVATED TEMP, TAB 11/21/16 Multivits-Min/Iron/FA/Lutein (Centrum Silver Women Tablet) 1 Each Tablet, 1 EACH PO, TAB 11/21/16 Hydroxyzine Pamoate* (Vistaril*) 25 Mg Capsule, 25 MG PO QHS Y for ITCHING, CAP 11/02/15 Albuterol Sulfate* (Proair HFA*) 8.5 Gm Hfa.aer.ad, 2 PUFF INH Q4H Y for WHEEZING AND SOB, #1 INHALER 11/02/15 Folic Acid* (Folic Acid*) 1 Mg Tablet, 1 MG PO DAILY, TAB 11/02/15 Famotidine* (Famotidine*) 20 Mg Tablet, 20 MG PO BID, TAB 11/02/15 Cyanocobalamin* (Vitamin B-12* Inj) 1,000 Mcg/Ml Vial, 1000 MCG IM Q28D, VIAL 11/02/15 Discontinued Reported Medications Fluticasone Propionate (Flonase Allergy Relief) 9.9 Ml [place].susp, 2 SPRAY NASAL DAILY Y for PRN, #1 BOTTLE TO EACH NOSTRIL 11/21/16 Allergies Allergies: Coded Allergies: ferrous sulfate (Verified Allergy, Severe, 11/21/16) ANY FORM OF FERROUS codeine (Verified Allergy, Unknown, 11/21/16) PMhx/Soc History of Surgery: Yes (Abdomina surgery for Hirshprung disease) Anesthesia Reaction: No Hx 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 Disorder: No Hx Respiratory Disorders: No Hx Cardiac Disorders: No Hx Psychiatric Problems: No Hx Miscellaneous Medical Probl: No Hx Alcohol Use: No Hx Substance Use: No Hx Tobacco Use: No Smoking Status: Never smoker FmHx Noncontributory for chief complaint with supportive mother at the bedside Physical Exam Vitals Vital Signs Date Time Temp Pulse Resp B/P Pulse Ox O2 Delivery O2 Flow Rate FiO2 12/08/16 07:40 98 25 116/80 100 Room Air 12/08/16 06:10 97.7 121 20 117/66 98 Physical Exam GENERAL: Patient is a frail, cachectic, chronically ill-appearing female in no acute distress HEENT: Pupils equal, round, and reactive to light. EOMI. There is no scleral icterus. NECK: C-spine is soft and supple, there is no meningismus. There is no cervical lymphadenopathy. LUNGS: Clear to auscultation bilaterally. There are no rales, wheezes or rhonchi. HEART: Regular rate and rhythm, no murmurs, clicks, rubs or gallops. ABDOMEN: Soft, postoperative. No significant tenderness to palpation. EXTREMITIES: There is no peripheral cyanosis or edema. No focal swelling or erythema. NEURO: The patient moves all four extremities with 5/5 strength. Cranial nerves II - XII are intact. Normal gait. Alert and oriented SKIN: There is no apparent rash or petechiae. Right upper chest wall Port-A- Cath is noted. HEME/LYMPHATIC: There is no evidence of excessive bruising or lymphedema. PSYCHIATRIC: The patient does not appear anxious or depressed. Result Diagram: 12/08/1672812/08/16 0729 Results 24 hrs Laboratory Tests Test 12/08/16 07:29 White Blood Count 11.310^3/ul Red Blood Count 4.1910^6/ul Hemoglobin 13.3g/dl Hematocrit 37.6% Mean Corpuscular Volume 89.7fl Mean Corpuscular Hemoglobin 31.7pg Mean Corpuscular Hemoglobin Concent 35.4g/dl Red Cell Distribution Width 12.6% Platelet Count 51332^3/UL Mean Platelet Volume 10.0fl Neutrophils % 87.5% Lymphocytes % 5.9% Monocytes % 5.1% Eosinophils % 0.5% Basophils % 0.4% Nucleated Red Blood Cells % 0.0/100WBC Neutrophils # 9.910^3/ul Lymphocytes # 0.710^3/ul Monocytes # 0.610^3/ul Eosinophils # 0.110^3/ul Basophils # 0.010^3/ul Nucleated Red Blood Cells # 0.010^3/ul Sodium Level 128mmol/L Potassium Level 4.7mmol/L Chloride Level 91mmol/L Carbon Dioxide Level 22mmol/L Anion Gap 20 Blood Urea Nitrogen 74mg/dl Creatinine 2.40mg/dl Glucose Level 149mg/dl Calcium Level 9.4mg/dl Magnesium Level 1.5mg/dl Total Bilirubin 0.3mg/dl Direct Bilirubin 0.00mg/dl Indirect Bilirubin 0.3mg/dl Aspartate Amino Transf (AST/SGOT) 36IU/L Alanine Aminotransferase (ALT/SGPT) 44IU/L Alkaline Phosphatase 124IU/L Total Protein 9.7g/dl Albumin 4.8g/dl Globulin 4.90g/dl Albumin/Globulin Ratio 0.97 Lipase 50U/L Current Medications Medications (Trade) Dose Ordered Sig/Elvie Route PRN Reason Start Time Stop Time Status Last Admin Dose Admin Ondansetron HCl 4 mg 4 mg ONCE STAT IV 12/08/16 07:07 12/08/16 07:09 DC 12/08/16 07:36 Sodium Chloride 1,000 ml @ 1,000 mls/hr Q1H ONCE IV 12/08/16 09:00 12/08/16 09:59 12/08/16 08:48 Magnesium Sulfate (Magnesium Sulfate 2 Gm/50 ml) 50 ml @ 25 mls/hr ONCE ONCE IVPB 12/08/16 09:30 12/08/16 11:29 Procedures/MDM Patient was taken to a room, seen and evaluated. Comfort measures were initiated. Diagnostic tests were ordered and reviewed. CONSULTATION: Dr. Prasad was notified for admission, Dr. [place] was notified in renal consultation REEVALUATION: Patient is remained hemo-dynamically stable in the emergency department. Hydration was initiated and magnesium was reinitiated after lab tests were reviewed. MEDICAL DECISION MAKIN-year-old female an extensive history of significant electrolyte disturbances presents to the emergency department once again with what appears to be an acute kidney injury. Based on patient's previous history , this appears to be dehydration related likely related to her underlying GI and possible kidney issues concurrently. Given the patient's high risk elevation of creatinine, patient will require admission to the hospital for further observation, monitoring, hydration, electrolyte replacement. Departure Diagnosis: Primary Impression: Acute kidney injury Additional Impression: Hypomagnesemia BROCK TERAN December 08, 2016 09:10
[2016-12-08 09:21] LABS: ADD UMIC YES; URINE BILIRUBIN (Dip) NEGATIVE (NEGATIVE); URINE BLOOD (Dip) 1+ (NEGATIVE); URINE COLOR LT. YELLOW (YELLOW); URINE GLUCOSE (Dip) NEGATIVE (NEGATIVE); URINE KETONES (Dip) NEGATIVE (NEGATIVE); URINE LEUKOCYTE ESTERASE (Dip) NEGATIVE (NEGATIVE); URINE NITRITE (Dip) NEGATIVE (NEGATIVE); URINE TOTAL PROTEIN (Dip) 2+ (NEGATIVE); URINE UROBILINOGEN (Dip) 0.2 E.U./dL (0.1-1.0)
[2016-12-08] MEDS ORDERED: MAGNESIUM SULFATE 2 GM/50 ML 50 ML IVPB ONE (09:30)
[2016-12-08 10:01] LABS: BACTERIA,URINE FEW; MUCUS,URINE FEW
[2016-12-08 14:00] VITALS: BP 105/53; PULSE 103; RESP 20
[2016-12-08 14:57] VITALS: Ht 147.3 cm; Wt 40.7 kg
[2016-12-08] MEDS ORDERED: ONDANSETRON 4 MG INJ IV PRN (15:30)
[2016-12-08] MEDS ORDERED: ACETAMINOPHEN 325 MG TAB PO PRN (15:30)
[2016-12-08] MEDS ORDERED: MIDODRINE 2.5 MG TAB PO PRN (16:00)
[2016-12-08] MEDS ORDERED: ALBUTEROL HFA 8 GM INHALER INH PRN (16:00)
[2016-12-08] MEDS ORDERED: CYANOCOBALAMIN 1000 MCG INJ IM SCH (16:00)
[2016-12-08] MEDS ORDERED: ALBUTEROL 18 GM INHALER INH PRN (16:13)
[2016-12-08] MEDS: SOD CHLORIDE 0.9% 1,000 ML IV SCH (17:59)
[2016-12-08 19:11] VITALS: BP 98/58; RESP 16
[2016-12-08] MEDS: MAGNESIUM CHLORIDE (SR) 64 MG TAB PO SCH (21:48)
[2016-12-08] MEDS: POTASSIUM CHLORIDE (SR) 20 MEQ TAB PO SCH (21:48)
[2016-12-08] MEDS: FAMOTIDINE 20 MG TAB PO SCH (21:53)
[2016-12-08] MEDS: hydrOXYzine PAMOATE 25 MG CAP PO PRN (21:54)
[2016-12-09] MEDS: SOD CHLORIDE 0.9% 1,000 ML IV SCH ×3 (05:56→22:04)
[2016-12-09 06:47] LABS: ADD SCAN DIFF NO
[2016-12-09 06:51] LABS: BASOPHIL # 0.1 10^3/ul (0.0-0.1); BASOPHILS % 1.3 % (0.0-2.0); EOSINOPHILS # 0.3 10^3/ul (0.0-0.5); EOSINOPHILS % 6.2 % (0.0-7.0); HEMATOCRIT 34.9 % (37.0-47.0); HEMOGLOBIN 11.8 g/dl (12.0-16.0); LYMPHOCYTES # 0.7 10^3/ul (0.8-2.9); LYMPHOCYTES % 13.5 % (15.0-51.0); MEAN CORPUSCULAR HEMOGLOBIN 31.6 pg (29.0-33.0); MEAN CORPUSCULAR HGB CONC 33.8 g/dl (32.0-37.0); MEAN CORPUSCULAR VOLUME 93.6 fl (82.0-101.0); MEAN PLATELET VOLUME 9.9 fl (7.4-10.4); MONOCYTE # 0.7 10^3/ul (0.3-0.9); MONOCYTES % 13.3 % (0.0-11.0); NEUTROPHIL # 3.5 10^3/ul (1.6-7.5); NEUTROPHILS % 64.9 % (39.0-77.0); PLATELET COUNT 383 10^3/UL (140-415); RED BLOOD COUNT 3.73 10^6/ul (4.20-5.40); RED CELL DISTRIBUTION WIDTH 12.7 % (11.5-14.5); WHITE BLOOD COUNT 5.3 10^3/ul (4.8-10.8)
[2016-12-09 07:19] LABS: POTASSIUM 4.1 mmol/L (3.5-5.1)
[2016-12-09 07:21] LABS: CREATININE 1.1 mg/dl (0.44-1.00)
[2016-12-09 07:22] LABS: CALCIUM 9.7 mg/dl (8.4-10.2)
[2016-12-09 07:50] VITALS: BP 106/55; RESP 18
[2016-12-09] MEDS: MAGNESIUM CHLORIDE (SR) 64 MG TAB PO SCH ×2 (08:43→22:02)
[2016-12-09] MEDS: FOLIC ACID 1 MG TAB PO SCH (08:44)
[2016-12-09] MEDS: POTASSIUM CHLORIDE (SR) 20 MEQ TAB PO SCH ×2 (08:44→22:03)
--- NOTE | 2016-12-09 10:13 | HP ---
Date/Time of Note Date/Time of Note DATE: 12/09/16 TIME: 10:10 Assessment/Plan VTE Prophylaxis VTE Prophylaxis Intervention: other Lines/Catheters [facility] portacath Urinary Cath still in place: No Assessment/Plan Chief Complaint/Hosp Course 1) nausea/vomiting - treat symptomatically 2) dehydration - intravenous fluids Problems: HPI/ROS Admit Date/Time Admit Date/Time December 08, 2016 at 09:02 Hx of Present Illness Patient with Hirshsprung's disease and ileostomy who has had multiple admissions for nausea/vomiting with electrolyte imbalance comes in again for persistent nausea and vomiting. Patient is admitted for further treatment. PMH/Family/Social Past Medical History Hirshsprung's disease Past Surgical History Past Surgical Hx: bowel resection, other Social History Smoking Status: Never smoker Exam/Review of Systems Vital Signs Vitals Vital Signs Date Time Temp Pulse Resp B/P Pulse Ox O2 Delivery O2 Flow Rate FiO2 12/09/16 07:50 98.0 84 18 106/55 98 12/08/16 14:00 Room Air Intake and Output 12/08/16 12/08/16 12/09/16 15:00 23:00 07:00 Intake Total 720 ml 1000 ml Output Total 200 ml 120 ml Balance 520 ml 880 ml Exam Constitutional: well developed Head: atraumatic, normocephalic Neck: supple Respiratory: clear to auscultation Cardiovascular: regular rate and rhythm Gastrointestinal: non-tender, soft Extremities: normal pulses Labs Result Diagram: 12/09/16 0556 12/09/16 0556 Medications Medications Current Medications Sodium Chloride (NS) 1,000 ml @ 75 mls/hr [id number] IV Last administered on 12/09 05:56; Admin Dose 75 MLS/HR; Start 12/08/16 at 15:30 Ondansetron HCl (Zofran Inj) 4 mg Q4H PRN IV NAUSEA AND/OR VOMITING; Start at 15:30 Acetaminophen (Tylenol Tab) 650 mg Q4H PRN PO PAIN AND OR ELEVATED TEMP; Start 12/08/16 at 15:30 Cyanocobalamin (Vitamin B12 Inj) 1,000 mcg Q28D IM Last administered on 18:00; Admin Dose 1,000 MCG; Start 12/08/16 at 16:00 Famotidine (Pepcid) 10 mg Q24H PO Last administered on 12/08/16 21:53; Admin Dose 10 MG; Start 12/08/16 at 21:00 Folic Acid (Folic Acid) 1 mg DAILY PO Last administered on 12/09/16 08:44; Admin Dose 1 MG; Start 12/09/16 at 09:00 Hydroxyzine Pamoate (Vistaril) 25 mg QHS PRN PO ITCHING Last administered on 21:54; Admin Dose 25 MG; Start 12/08/16 at 21:00 Magnesium Chloride (Mag 64) 64 mg BID PO Last administered on 12/09/16 08:43; Admin Dose 64 MG; Start 12/08/16 at 21:00 Midodrine (Proamatine) 2.5 mg BID@,17 PRN PO SBP <90; Start 12/08/16 at 16:00 Potassium Chloride (Klor-Con 20) 20 meq BID PO Last administered on 12/09/16 08:44; Admin Dose 20 MEQ; Start 12/08/16 at 21:00 Simethicone (Mylicon) 80 mg QID PRN GTB DISTENSION/GAS/BLOATING; Start at 16:00 Albuterol (Ventolin Hfa) 2 puff Q4H PRN INH WHEEZING AND SOB; Start 12/08/16 at 16:13 GINGER MOSES December 09, 2016 10:13
[2016-12-09 11:30] VITALS: BP 96/61; RESP 18
[2016-12-09 16:04] VITALS: BP 90/55; RESP 18
[2016-12-09 20:27] VITALS: BP 100/64; RESP 16
[2016-12-09] MEDS: FAMOTIDINE 20 MG TAB PO SCH (22:03)
[2016-12-10 07:26] VITALS: BP 109/53; RESP 19
[2016-12-10] MEDS: FOLIC ACID 1 MG TAB PO SCH (08:39)
[2016-12-10] MEDS: POTASSIUM CHLORIDE (SR) 20 MEQ TAB PO SCH ×2 (08:39→20:13)
[2016-12-10] MEDS: MAGNESIUM CHLORIDE (SR) 64 MG TAB PO SCH ×2 (08:39→20:13)
[2016-12-10] MEDS: SOD CHLORIDE 0.9% 1,000 ML IV SCH ×2 (10:38→23:37)
--- NOTE | 2016-12-10 18:45 | PN ---
Date/Time of Note Date/Time of Note DATE: 12/10/16 TIME: 18:42 Assessment/Plan VTE Prophylaxis VTE Prophylaxis Intervention: SCD's Lines/Catheters IV [facility]ter Type (from [facility]): Central Line Central line still needed: Yes Urinary Cath still in place: No Assessment/Plan Chief Complaint/Hosp Course Patient tolerates regular diet well denies nausea vomiting, continue IV fluids monitor electrolytes. Problems: Assessment/Plan -Acute kidney injury, continue IV fluids. Dr. Spain is asked to see patient in nephrology consultation. -Dehydration secondary to emesis, resolved. -Hypomagnesemia on admission, resolved. -Hirschsprung disease with multiple abdominal surgery. -Ileostomy -Right Port-A-Cath catheter Further recommendations based on clinical course. Plan of care discussed with Dr. Paez. Exam/Review of Systems Vital Signs Vitals Vital Signs Date Time Temp Pulse Resp B/P Pulse Ox O2 Delivery O2 Flow Rate FiO2 12/10/16 07:26 98.0 80 19 109/53 98 12/08/16 14:00 Room Air Intake and Output 12/09/16 12/09/16 12/10/16 14:59 22:59 06:59 Intake Total 1825 ml 600 ml Output Total 300 ml 700 ml 550 ml Balance -300 ml 1125 ml 50 ml Exam Constitutional: alert, oriented Head: normocephalic Respiratory: clear to auscultation Cardiovascular: nl pulses Gastrointestinal: non-tender, other (Ileostomy), soft Extremities: normal pulses Results Result Diagram: 12/09/16 0556 12/09/16 0556 Medications Medications Current Medications Sodium Chloride (NS) 1,000 ml @ 75 mls/hr [id number] IV Last administered on 12/10 10:38; Admin Dose 75 MLS/HR; Start 12/08/16 at 15:30 Ondansetron HCl (Zofran Inj) 4 mg Q4H PRN IV NAUSEA AND/OR VOMITING; Start at 15:30 Acetaminophen (Tylenol Tab) 650 mg Q4H PRN PO PAIN AND OR ELEVATED TEMP; Start 12/08/16 at 15:30 Cyanocobalamin (Vitamin B12 Inj) 1,000 mcg Q28D IM Last administered on 18:00; Admin Dose 1,000 MCG; Start 12/08/16 at 16:00 Famotidine (Pepcid) 10 mg Q24H PO Last administered on 12/09/16 22:03; Admin Dose 10 MG; Start 12/08/16 at 21:00 Folic Acid (Folic Acid) 1 mg DAILY PO Last administered on 12/10/16 08:39; Admin Dose 1 MG; Start 12/09/16 at 09:00 Hydroxyzine Pamoate (Vistaril) 25 mg QHS PRN PO ITCHING Last administered on 21:54; Admin Dose 25 MG; Start 12/08/16 at 21:00 Magnesium Chloride (Mag 64) 64 mg BID PO Last administered on 12/10/16 08:39; Admin Dose 64 MG; Start 12/08/16 at 21:00 Midodrine (Proamatine) 2.5 mg BID@,17 PRN PO SBP <90; Start 12/08/16 at 16:00 Potassium Chloride (Klor-Con 20) 20 meq BID PO Last administered on 12/10/16 08:39; Admin Dose 20 MEQ; Start 12/08/16 at 21:00 Simethicone (Mylicon) 80 mg QID PRN GTB DISTENSION/GAS/BLOATING; Start at 16:00 Albuterol (Ventolin Hfa) 2 puff Q4H PRN INH WHEEZING AND SOB; Start 12/08/16 at 16:13 ROMI ESPINO December 10, 2016 18:45
[2016-12-10] MEDS: FAMOTIDINE 20 MG TAB PO SCH (20:13)
[2016-12-10 20:39] VITALS: BP 98/54; RESP 20
[2016-12-11 04:57] LABS: ADD SCAN DIFF NO
[2016-12-11 05:04] LABS: BASOPHIL # 0.1 10^3/ul (0.0-0.1); EOSINOPHILS # 0.9 10^3/ul (0.0-0.5); EOSINOPHILS % 16.3 % (0.0-7.0); HEMATOCRIT 32.7 % (37.0-47.0); HEMOGLOBIN 10.9 g/dl (12.0-16.0); LYMPHOCYTES # 0.8 10^3/ul (0.8-2.9); LYMPHOCYTES % 14.6 % (15.0-51.0); MEAN CORPUSCULAR HEMOGLOBIN 31.5 pg (29.0-33.0); MEAN CORPUSCULAR HGB CONC 33.3 g/dl (32.0-37.0); MEAN CORPUSCULAR VOLUME 94.5 fl (82.0-101.0); MEAN PLATELET VOLUME 9.6 fl (7.4-10.4); MONOCYTE # 0.5 10^3/ul (0.3-0.9); MONOCYTES % 10.3 % (0.0-11.0); NEUTROPHILS % 57.2 % (39.0-77.0); PLATELET COUNT 340 10^3/UL (140-415); RED BLOOD COUNT 3.46 10^6/ul (4.20-5.40); RED CELL DISTRIBUTION WIDTH 12.1 % (11.5-14.5); WHITE BLOOD COUNT 5.3 10^3/ul (4.8-10.8)
[2016-12-11 05:50] LABS: ALBUMIN 4.6 g/dl (3.3-4.9)
[2016-12-11 05:51] LABS: POTASSIUM 4.5 mmol/L (3.5-5.1)
[2016-12-11 05:53] LABS: CREATININE 0.79 mg/dl (0.44-1.00)
[2016-12-11 05:54] LABS: ALBUMIN/GLOBULIN RATIO 1.31; CALCIUM 9.2 mg/dl (8.4-10.2); TOTAL PROTEIN 8.1 g/dl (6.1-8.1)
[2016-12-11 05:55] LABS: MAGNESIUM 1.1 mg/dl (1.7-2.5)
[2016-12-11 07:20] VITALS: BP 104/58; RESP 19
[2016-12-11] MEDS: MAGNESIUM CHLORIDE (SR) 64 MG TAB PO SCH ×2 (08:18→20:45)
[2016-12-11] MEDS: FOLIC ACID 1 MG TAB PO SCH (08:18)
[2016-12-11] MEDS: POTASSIUM CHLORIDE (SR) 20 MEQ TAB PO SCH ×2 (08:18→20:45)
[2016-12-11] MEDS: SOD CHLORIDE 0.9% 1,000 ML IV SCH ×2 (12:39→23:30)
--- NOTE | 2016-12-11 14:52 | CONS ---
DATE OF ADMISSION: 12/08/2016 DATE OF CONSULTATION: 12/09/2016 Please note that this is a late dictation due to access problems. TYPE OF CONSULTATION: Nephrology REASON FOR CONSULTATION: Acute kidney injury, severe hypomagnesemia. REFERRING PHYSICIAN: Jeannine. HISTORY OF PRESENT ILLNESS: This is a 41-year-old female who has a past medical history of Hirschsp rung disease with ileostomy. She had previously recent multiple admissions for recurrent nausea, vo miting with electrolyte imbalance, so she came back this time with again nausea, vomiting, inability to tolerate p.o. She is noted to have acute kidney injury with a BUN of 74, creatinine of 2.4. O n admission, her sodium was dropped down to 128 and magnesium was 1.5. She gets admitted to the med /surg floor. IV fluid hydration has been given. Her renal failure has been slowly improving, but t he patient's electrolytes are still low. At this time her potassium has been normal since admission , which is unusual compared to the previous admission. REVIEW OF SYSTEMS: Positive for nausea, vomiting, inability to tolerate p.o. REVIEW OF SYSTEMS: Other 12 point review of systems has been obtained and is negative except what i s mentioned in the history of present illness. PAST MEDICAL HISTORY: 1 History of Hirschsprung disease. 2. History of recent admissions multiple times for acute kidney injury and electrolyte imbalances s econdary to increased output through her ileostomy. PAST SURGICAL HISTORY: History of tracheostomy. SOCIAL HISTORY: No smoking, alcohol or recreational drug use. FAMILY HISTORY: Not available. PHYSICAL EXAMINATION: VITAL SIGNS: Temperature 98, heart rate 86, respiration 19, blood pressure 90/55, saturation is 97 to 98% on room air. GENERAL: Awake, alert, in mild to moderate distress due to the dehydration. HEENT: Normal. Pupils equal, round, reactive to light and accommodation. Extraocular muscles are intact. Dry mucous membrane. NECK: Supple, no JVD, no lymphadenopathy. LUNGS: Clear to auscultation. No crackles, no wheezes. HEART: S1, S2, with regular rhythm, no murmur. ABDOMEN: Soft, nontender, nondistended. Bowel sounds are present. EXTREMITIES: No clubbing, cyanosis, or edema. NEUROLOGICAL: Nonfocal. PSYCHIATRIC: Appropriate affect and mood. Right upper quadrant, right lower quadrant ileostomy is in place. LABORATORY DATA/DIAGNOSTIC IMAGING: Sodium 136, potassium 4.1, chloride 102, bicarbonate 25, BUN 53 , creatinine 1.1. Please note that on admission, creatinine was 2.4. Calcium 9.7, magnesium 1.5. WBC 5.3, hemoglobin 10.9, platelet count is 340. IMPRESSION: This is a 41-year-old female who is getting admitted for abdominal pain, nausea, vomiti ng and increased ileostomy output. Renal has been consulted for: 1. Acute kidney injury secondary to severe prerenal azotemia. 2. Hypomagnesemia secondary to increased output from the ileostomy. 3. History of previous recurrent admissions for increased ileostomy output and electrolyte imbalanc es. 4. History of Hirschsprung disease, status post ileostomy. PLAN: Thank you, Dr. Paez, for this consultation. The patient's creatinine has been improved with IV fluid hydration. I will continue the patient on IV fluid hydration NS at 75 mL per hour. I will give magnesium sulfate 3 grams IV x1 due to her severe hypomagnesemia. Her magnesium level t pedro luis is 1.1. I am expecting her magnesium to be normal after 3 grams of magnesium sulfate. The patient is currently seen in the med/surg floor and she will be followed up along with her cours e in the hospital. Total time spent on this patient for consultations and evaluations took more than 60 minutes. Dictated By: ROHAN VELÁZQUEZ MD, KP/NTS Conf#: [id number] DID#: [id number] CC: CARLOS PAEZ MD;*End*
[2016-12-11] MEDS ORDERED: MAGNESIUM SULFATE 3 GM in SOD CHLORIDE 0.9% 100 ML IVPB ONE (15:00)
--- NOTE | 2016-12-11 16:56 | PN ---
Date/Time of Note Date/Time of Note DATE: 12/11/16 TIME: 16:54 Assessment/Plan VTE Prophylaxis VTE Prophylaxis Intervention: SCD's Lines/Catheters [facility] Port a cath Urinary Cath still in place: No Assessment/Plan Chief Complaint/Hosp Course Patient status post magnesium replacement, tolerates a regular diet well without nausea. Problems: Assessment/Plan Assessment/Plan -Acute kidney injury, continue IV fluids. Dr. Spain is following in nephrology consultation. -Dehydration secondary to emesis, resolved. -Hypomagnesemia, replacement given, continue to monitor. -Hirschsprung disease with multiple abdominal surgery. -Ileostomy -Right Port-A-Cath catheter Further recommendations based on clinical course. Plan of care discussed with Dr. Paez. Exam/Review of Systems Vital Signs Vitals Vital Signs Date Time Temp Pulse Resp B/P Pulse Ox O2 Delivery O2 Flow Rate FiO2 12/11/16 07:20 98.0 86 19 104/58 98 12/08/16 14:00 Room Air Intake and Output 12/10/16 12/10/16 12/11/16 15:00 23:00 07:00 Intake Total 1000 ml 1775 ml 1250 ml Output Total 1000 ml 1270 ml Balance 1000 ml 775 ml -20 ml Exam Constitutional: alert, oriented Head: normocephalic Respiratory: clear to auscultation Cardiovascular: nl pulses Gastrointestinal: non-tender, other (Ileostomy), soft Extremities: normal pulses Results Result Diagram: 12/11/16 0429 12/11/16 0429 Results 24 hrs Laboratory Tests Test 12/11/16 04:29 White Blood Count 5.3 Red Blood Count 3.46 L Hemoglobin 10.9 L Hematocrit 32.7 L Mean Corpuscular Volume 94.5 Mean Corpuscular Hemoglobin 31.5 Mean Corpuscular Hemoglobin Concent 33.3 Red Cell Distribution Width 12.1 Platelet Count 340 Mean Platelet Volume 9.6 Neutrophils % 57.2 Lymphocytes % 14.6 L Monocytes % 10.3 Eosinophils % 16.3 H Basophils % 1.0 Nucleated Red Blood Cells % 0.0 Neutrophils # 3.0 Lymphocytes # 0.8 Monocytes # 0.5 Eosinophils # 0.9 H Basophils # 0.1 Nucleated Red Blood Cells # 0.0 Sodium Level 139 Potassium Level 4.5 Chloride Level 110 Carbon Dioxide Level 22 Anion Gap 12 Blood Urea Nitrogen 31 #H Creatinine 0.79 Glucose Level 109 Calcium Level 9.2 Magnesium Level 1.1 L Total Bilirubin 0.0 L Direct Bilirubin 0.00 Indirect Bilirubin 0.0 Aspartate Amino Transf (AST/SGOT) 30 Alanine Aminotransferase (ALT/SGPT) 28 Alkaline Phosphatase 71 Total Protein 8.1 Albumin 4.6 Globulin 3.50 H Albumin/Globulin Ratio 1.31 Medications Medications Current Medications Sodium Chloride (NS) 1,000 ml @ 75 mls/hr [id number] IV Last administered on 12/11 12:39; Admin Dose 75 MLS/HR; Start 12/08/16 at 15:30 Ondansetron HCl (Zofran Inj) 4 mg Q4H PRN IV NAUSEA AND/OR VOMITING; Start at 15:30 Acetaminophen (Tylenol Tab) 650 mg Q4H PRN PO PAIN AND OR ELEVATED TEMP; Start 12/08/16 at 15:30 Cyanocobalamin (Vitamin B12 Inj) 1,000 mcg Q28D IM Last administered on 18:00; Admin Dose 1,000 MCG; Start 12/08/16 at 16:00 Famotidine (Pepcid) 10 mg Q24H PO Last administered on 12/10/16 20:13; Admin Dose 10 MG; Start 12/08/16 at 21:00 Folic Acid (Folic Acid) 1 mg DAILY PO Last administered on 12/11/16 08:18; Admin Dose 1 MG; Start 12/09/16 at 09:00 Hydroxyzine Pamoate (Vistaril) 25 mg QHS PRN PO ITCHING Last administered on 21:54; Admin Dose 25 MG; Start 12/08/16 at 21:00 Magnesium Chloride (Mag 64) 64 mg BID PO Last administered on 12/11/16 08:18; Admin Dose 64 MG; Start 12/08/16 at 21:00 Midodrine (Proamatine) 2.5 mg BID@09,17 PRN PO SBP <90; Start 12/08/16 at 16:00 Potassium Chloride (Klor-Con 20) 20 meq BID PO Last administered on 12/11/16 08:18; Admin Dose 20 MEQ; Start 12/08/16 at 21:00 Simethicone (Mylicon) 80 mg QID PRN GTB DISTENSION/GAS/BLOATING; Start at 16:00 Albuterol 2 puff 2 puff Q4H PRN INH WHEEZING AND SOB; Start 12/08/16 at 16:13 Magnesium Sulfate/ Sodium Chloride (Magnesium Sulfate/NS) 106 ml @ 35.333 mls/ hr ONCE ONCE IVPB Last administered on 12/11/16t 16:17; Admin Dose 35.333 MLS/ HR; Start 12/11/16 at 15:00; Stop 12/11/16 at 17:59 ROMI ESPINO December 11, 2016 16:56
[2016-12-11 19:50] VITALS: BP 93/50; RESP 20
[2016-12-11] MEDS: FAMOTIDINE 20 MG TAB PO SCH (20:45)
[2016-12-12] MEDS: hydrOXYzine PAMOATE 25 MG CAP PO PRN (00:14)
[2016-12-12 06:38] LABS: CALCIUM 8.9 mg/dl (8.4-10.2); CREATININE 0.64 mg/dl (0.44-1.00); MAGNESIUM 2.2 mg/dl (1.7-2.5); PHOSPHORUS 2.3 mg/dl (2.5-4.9); POTASSIUM 3.7 mmol/L (3.5-5.1)
[2016-12-12 07:40] VITALS: BP 113/63; RESP 18
[2016-12-12] MEDS: MAGNESIUM CHLORIDE (SR) 64 MG TAB PO SCH ×2 (08:40→20:33)
[2016-12-12] MEDS: POTASSIUM CHLORIDE (SR) 20 MEQ TAB PO SCH ×2 (08:40→20:33)
[2016-12-12] MEDS: FOLIC ACID 1 MG TAB PO SCH (08:40)
[2016-12-12] MEDS: SOD CHLORIDE 0.9% 1,000 ML IV SCH (08:45)
--- NOTE | 2016-12-12 16:35 | PDOCDIS ---
Discharge Instructions CONDITION Patient Condition: Stable HOME CARE INSTRUCTIONS: Special Diet: LOW FAT, LOW CHOLESTEROL DIET ACTIVITY: Activity Restrictions: Slowly Increase Activity Rest between Activity Avoid heavy lifting Do not operate Machinery Do not operate Power Tool Avoid Heavy Housework Bathing Restrictions: Sponge Bath FOLLOW UP/APPOINTMENTS Appointments FU with PMD X 1 WEEK FU with Nephrology as recommended Get enough po fluid intake. DEVENDRA GOMES Dec 12, 2016 16:35
--- NOTE | 2016-12-12 16:36 | DS ---
Date/Time of Note Date/Time of Note DATE: 12/12/16 TIME: 16:36 Discharge Summary Admission/Discharge Info Admit Date/Time December 08, 2016 at 09:02 Discharge Date/Time Patient Condition: Stable Hx of Present Illness Patient with Hirshsprung's disease and ileostomy who has had multiple admissions for nausea/vomiting with electrolyte imbalance comes in again for persistent nausea and vomiting. Patient is admitted for further treatment. Hospital Course Patient status post magnesium replacement, tolerates a regular diet well without nausea. Home Meds Active Scripts Potassium Chloride* (K-Dur*) 20 Meq Tab.prt.sr, 20 MEQ PO BID for 30 Days Prov:ROMI ESPINO 12/04/16 Simethicone* (Mylicon*) 80 Mg Tab, 80 MG GTB QID Y for DISTENSION/GAS/BLOATING for 30 Days, TAB Prov:DEVENDRA GOMES 12/01/16 Midodrine HCl (Midodrine HCl) 2.5 Mg Tablet, 2.5 MG PO BID@, Y for SBP <90 for 30 Days, TAB Prov:DEVENDRA GOMES 11/16/16 Magnesium Chloride* (Mag 64*) 64 Mg Tabsr, 64 MG PO BID for 14 Days, TAB Prov:ROMI ESPINO 09/20/16 Reported Medications Acetaminophen* (Acetaminophen*) 500 MG Extra Strength Tablet, 500 MG PO Q4H Y for PAIN AND OR ELEVATED TEMP, TAB 11/21/16 Multivits-Min/Iron/FA/Lutein (Centrum Silver Women Tablet) 1 Each Tablet, 1 EACH PO, TAB 11/21/16 Hydroxyzine Pamoate* (Vistaril*) 25 Mg Capsule, 25 MG PO QHS Y for ITCHING, CAP 11/02/15 Albuterol Sulfate* (Proair HFA*) 8.5 Gm Hfa.aer.ad, 2 PUFF INH Q4H Y for WHEEZING AND SOB, #1 INHALER 11/02/15 Folic Acid* (Folic Acid*) 1 Mg Tablet, 1 MG PO DAILY, TAB 11/02/15 Famotidine* (Famotidine*) 20 Mg Tablet, 20 MG PO BID, TAB 11/02/15 Cyanocobalamin* (Vitamin B-12* Inj) 1,000 Mcg/Ml Vial, 1000 MCG IM Q28D, VIAL 11/02/15 Primary Care Provider Noel Paez MD Pending Labs Laboratory Tests Test 12/12/16 05:05 Sodium Level 138mmol/L (135-144) Potassium Level 3.7mmol/L (3.5-5.1) Chloride Level 105mmol/L (97-110) Carbon Dioxide Level 28mmol/L (21-31) Anion Gap 9 (8-16) Blood Urea Nitrogen 24mg/dl (7-20) Creatinine 0.64mg/dl (0.44-1.00) Glucose Level 81mg/dl (70-220) Calcium Level 8.9mg/dl (8.4-10.2) Phosphorus Level 2.3mg/dl (2.5-4.9) Magnesium Level 2.2mg/dl (1.7-2.5) DEVENDRA GOMES Dec 12, 2016 16:36
--- NOTE | 2016-12-12 17:22 | CONS ---
Date/Time of Note Date/Time of Note DATE: 12/12/16 TIME: 17:20 Assessment/Plan Assessment/Plan Additional Assessment/Plan 1. Acute kidney injury secondary to severe prerenal azotemia. 2. Hypomagnesemia secondary to increased output from the ileostomy. 3. History of previous recurrent admissions for increased ileostomy output and electrolyte imbalances. 4. History of Hirschsprung disease, status post ileostomy. PLAN: Cr stable, mag and K normal Bp stable continue current care will follow up Consultation Date/Type/Reason Admit Date/Time December 08, 2016 at 09:02 Initial Consult Date Type of Consultation: NEPHROLOGY Referring Provider: CARLOS RODRIGUEZ MD 24 HR Interval Summary Free Text/Dictation mag normal after replacement,K normal, Bp stable Exam/Review of Systems Vital Signs Vitals Vital Signs Date Time Temp Pulse Resp B/P Pulse Ox O2 Delivery O2 Flow Rate FiO2 12/12/16 07:40 98.3 18 113/63 100 12/11/16 19:50 83 12/08/16 14:00 Room Air Intake and Output 12/11/16 12/11/16 12/12/16 15:00 23:00 07:00 Intake Total 106 ml 1215 ml Balance 106 ml 1215 ml Exam GENERAL: Awake, alert, in mild to moderate distress due to the dehydration. HEENT: Normal. Pupils equal, round, reactive to light and accommodation. Extraocular muscles are intact. Dry mucous membrane. NECK: Supple, no JVD, no lymphadenopathy. LUNGS: Clear to auscultation. No crackles, no wheezes. HEART: S1, S2, with regular rhythm, no murmur. ABDOMEN: Soft, nontender, nondistended. Bowel sounds are present. EXTREMITIES: No clubbing, cyanosis, or edema. NEUROLOGICAL: Nonfocal. PSYCHIATRIC: Appropriate affect and mood. Results Result Diagram: 12/11/16 0429 12/12/16 0505 Results 24 hrs Laboratory Tests Test 12/12/16 05:05 Sodium Level 138 Potassium Level 3.7 Chloride Level 105 Carbon Dioxide Level 28 Anion Gap 9 Blood Urea Nitrogen 24 H Creatinine 0.64 Glucose Level 81 Calcium Level 8.9 Phosphorus Level 2.3 L Magnesium Level 2.2 # Medications Medications Current Medications Sodium Chloride (NS) 1,000 ml @ 75 mls/hr [id number] IV Last administered on 08:45; Admin Dose 75 MLS/HR; Start 12/08/16 at 15:30 Ondansetron HCl (Zofran Inj) 4 mg Q4H PRN IV NAUSEA AND/OR VOMITING; Start at 15:30 Acetaminophen (Tylenol Tab) 650 mg Q4H PRN PO PAIN AND OR ELEVATED TEMP; Start 12/08/16 at 15:30 Cyanocobalamin (Vitamin B12 Inj) 1,000 mcg Q28D IM Last administered on 18:00; Admin Dose 1,000 MCG; Start 12/08/16 at 16:00 Famotidine (Pepcid) 10 mg Q24H PO Last administered on 12/11/16 20:45; Admin Dose 10 MG; Start 12/08/16 at 21:00 Folic Acid (Folic Acid) 1 mg DAILY PO Last administered on 12/12/16 08:40; Admin Dose 1 MG; Start 12/09/16 at 09:00 Hydroxyzine Pamoate (Vistaril) 25 mg QHS PRN PO ITCHING Last administered on 00:14; Admin Dose 25 MG; Start 12/08/16 at 21:00 Magnesium Chloride (Mag 64) 64 mg BID PO Last administered on 12/12/16 08:40; Admin Dose 64 MG; Start 12/08/16 at 21:00 Midodrine (Proamatine) 2.5 mg BID@,17 PRN PO SBP <90; Start 12/08/16 at 16:00 Potassium Chloride (Klor-Con 20) 20 meq BID PO Last administered on 12/12/16 08 :40; Admin Dose 20 MEQ; Start 12/08/16 at 21:00 Simethicone (Mylicon) 80 mg QID PRN GTB DISTENSION/GAS/BLOATING; Start at 16:00 Albuterol (Ventolin Hfa) 2 puff Q4H PRN INH WHEEZING AND SOB; Start 12/08/16 at 16:13 ROHAN VELÁZQUEZ MD Dec 12, 2016 17:22
[2016-12-12] MEDS ORDERED: HEPARIN (100 UNITS/ML) 5 ML SYG CATHETER ONE (18:30)
[2016-12-12 19:19] VITALS: BP 108/59; RESP 21
[2016-12-12] MEDS: FAMOTIDINE 20 MG TAB PO SCH (20:33)
== END 2016-12-12 21:07 | disposition home or self-care (01) | DRG 683 ==
LOC: E/R 06:02 → TEL 09:02 → MS1 12-09 18:59
PROVIDERS: ADMIT Internal Medicine; ATTEND Internal Medicine
DX: N17.9 Acute kidney failure, unspecified (principal); Q43.1 Hirschsprung's disease; E87.1 Hypo-osmolality and hyponatremia; Z68.1 Body mass index [BMI] 19.9 or less, adult; E83.42 Hypomagnesemia; E86.0 Dehydration; R11.2 Nausea with vomiting, unspecified; Z93.2 Ileostomy status
CPT/HCPCS: 36415; 80048; 80053; 81001; 83690; 83735; 84100; 85025; 96374; 96375; J1642; J2405; J3420; J3475; J7030

== ENCOUNTER 2016-12-17 08:38 | Inpatient (IN) | payer OTHER ==
[~2016-12-17] VITALS: Ht 147.3 cm; Wt 33.5 kg
[2016-12-17] MEDS ORDERED: SOD CHLORIDE 0.9% 1,000 ML IV STA (08:53)
[2016-12-17] MEDS ORDERED: morphine 4 MG/ML VIAL IV STA (08:53)
[2016-12-17] MEDS ORDERED: ONDANSETRON 4 MG INJ IV STA (08:53)
[2016-12-17] MEDS ORDERED: ACETAMINOPHEN 325 MG TAB PO PRN (09:00)
[2016-12-17] MEDS ORDERED: ONDANSETRON 4 MG INJ IV PRN (09:00)
[2016-12-17 09:46] LABS: ADD SCAN DIFF NO
[2016-12-17 09:49] LABS: ABNORMAL IP MESSAGE 1; BASOPHILS % 0.1 % (0.0-2.0); EOSINOPHILS % 0.1 % (0.0-7.0); HEMATOCRIT 35.2 % (37.0-47.0); HEMOGLOBIN 12.8 g/dl (12.0-16.0); LYMPHOCYTES # 0.6 10^3/ul (0.8-2.9); LYMPHOCYTES % 3.9 % (15.0-51.0); MEAN CORPUSCULAR HEMOGLOBIN 31.8 pg (29.0-33.0); MEAN CORPUSCULAR HGB CONC 36.4 g/dl (32.0-37.0); MEAN CORPUSCULAR VOLUME 87.6 fl (82.0-101.0); MEAN PLATELET VOLUME 9.5 fl (7.4-10.4); MONOCYTE # 0.4 10^3/ul (0.3-0.9); NEUTROPHIL # 13.6 10^3/ul (1.6-7.5); PLATELET COUNT 649 10^3/UL (140-415); RED BLOOD COUNT 4.02 10^6/ul (4.20-5.40); RED CELL DISTRIBUTION WIDTH 12.4 % (11.5-14.5); WHITE BLOOD COUNT 14.8 10^3/ul (4.8-10.8)
[2016-12-17 10:15] LABS: ADD UMIC YES; UR BILIRUBIN (Dip) NEGATIVE (NEGATIVE); UR BLOOD (Dip) NEGATIVE (NEGATIVE); UR CLARITY CLEAR (CLEAR); UR COLOR LT. YELLOW (YELLOW); UR GLUCOSE (Dip) NEGATIVE (NEGATIVE); UR KETONES (Dip) NEGATIVE (NEGATIVE); UR LEUKOCYTE ESTERASE (Dip) NEGATIVE (NEGATIVE); UR NITRITE (Dip) NEGATIVE (NEGATIVE); UR TOTAL PROTEIN (Dip) 2+ (NEGATIVE); UR UROBILINOGEN (Dip) 0.2 E.U./dL (0.1-1.0)
[2016-12-17 10:15] LABS: ALBUMIN 5.1 g/dl (3.3-4.9); ALBUMIN/GLOBULIN RATIO 1.13; BILIRUBIN,INDIRECT 0.1 mg/dl (0-1.1); BILIRUBIN,TOTAL 0.1 mg/dl (0.2-1.3); CALCIUM 9.2 mg/dl (8.4-10.2); CREATININE 1.81 mg/dl (0.44-1.00); MAGNESIUM 1.6 mg/dl (1.7-2.5); TOTAL PROTEIN 9.6 g/dl (6.1-8.1)
--- NOTE | 2016-12-17 10:20 | ERA ---
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 Patient also has vomiting. She is vomiting everything and cannot keep anything down. She cannot keep food or fluids down. She said the symptoms started yesterday morning. She was recently admitted on December 08 and discharged on December 12. She has no fevers. She called Dr. Paez her primary doctor yesterday and was given a prescription for Zofran however even with the Zofran she is still vomiting. Upon review of old medical records this is the patient's ninth visit to the ER since 2015. She has been admitted on every visit. She says that she does not currently have a GI specialist. ROS All systems reviewed and are negative except as per history of present illness. Medications Home Meds Active Scripts Potassium Chloride* (K-Dur*) 20 Meq Tab.prt.sr, 20 MEQ PO BID for 30 Days Prov:ROMI ESPINO 12/04/16 Midodrine HCl (Midodrine HCl) 2.5 Mg Tablet, 2.5 MG PO BID@09,17 Y for SBP <90 for 30 Days, TAB Prov:DEVENDRA GOMES 11/16/16 Magnesium Chloride* (Mag 64*) 64 Mg Tabsr, 64 MG PO BID for 14 Days, TAB Prov:ROMI ESPINO 09/20/16 Reported Medications Acetaminophen* (Acetaminophen*) 500 MG Extra Strength Tablet, 500 MG PO Q4H Y for PAIN AND OR ELEVATED TEMP, TAB 11/21/16 Multivits-Min/Iron/FA/Lutein (Centrum Silver Women Tablet) 1 Each Tablet, 1 EACH PO DAILY, TAB 11/21/16 Hydroxyzine Pamoate* (Vistaril*) 25 Mg Capsule, 25 MG PO QHS Y for ITCHING, CAP 11/02/15 Albuterol Sulfate* (Proair HFA*) 8.5 Gm Hfa.aer.ad, 2 PUFF INH Q4H Y for WHEEZING AND SOB, #1 INHALER 11/02/15 Folic Acid* (Folic Acid*) 1 Mg Tablet, 1 MG PO DAILY, TAB 11/02/15 Famotidine* (Famotidine*) 20 Mg Tablet, 20 MG PO BID, TAB 11/02/15 Cyanocobalamin* (Vitamin B-12* Inj) 1,000 Mcg/Ml Vial, 1000 MCG IM Q28D, VIAL 11/02/15 Discontinued Scripts Simethicone* (Mylicon*) 80 Mg Tab, 80 MG GTB QID Y for DISTENSION/GAS/BLOATING for 30 Days, TAB Prov:ELISEODEVENDRA 12/01/16 Allergies Allergies: Coded Allergies: ferrous sulfate (Verified Allergy, Severe, 12/08/16) ANY FORM OF FERROUS codeine (Verified Allergy, Unknown, 12/08/16) PMhx/Soc History of Surgery: Yes (Ileostomy) Anesthesia Reaction: Yes Hx 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 Disorder: No Hx Respiratory Disorders: No Hx Cardiac Disorders: No Hx Psychiatric Problems: No Hx Miscellaneous Medical Probl: Yes (hirschsprung) Hx Alcohol Use: No Hx Substance Use: No Hx Tobacco Use: No Smoking Status: Never smoker FmHx Family History: diabetes Physical Exam Vitals Vital Signs Date Time Temp Pulse Resp B/P Pulse Ox O2 Delivery O2 Flow Rate FiO2 12/17/16 08:40 96.6 113 22 114/74 100 Physical Exam Const: Cachexia Head: Atraumatic Eyes: Normal Conjunctiva ENT: Dry mucous membranes Neck: Full range of motion..~ No meningismus. Resp: Clear to auscultation bilaterally Cardio: Regular rate and rhythm, no murmurs Abd: Diffuse tenderness to palpation without rebound or guarding, there is a colostomy in place Skin: No petechiae or rashes Back: No midline or flank tenderness Ext: No cyanosis, or edema Neur: Awake and alert Psych: Normal Mood and Affect Result Diagram: 12/17/16 0930 Results 24 hrs Laboratory Tests Test 12/17/16 09:30 White Blood Count 14.810^3/ul Red Blood Count 4.0210^6/ul Hemoglobin 12.8g/dl Hematocrit 35.2% Mean Corpuscular Volume 87.6fl Mean Corpuscular Hemoglobin 31.8pg Mean Corpuscular Hemoglobin Concent 36.4g/dl Red Cell Distribution Width 12.4% Platelet Count 53512^3/UL Mean Platelet Volume 9.5fl Neutrophils % 92.0% Lymphocytes % 3.9% Monocytes % 3.0% Eosinophils % 0.1% Basophils % 0.1% Nucleated Red Blood Cells % 0.0/100WBC Neutrophils # 13.610^3/ul Lymphocytes # 0.610^3/ul Monocytes # 0.410^3/ul Eosinophils # 0.010^3/ul Basophils # 0.010^3/ul Nucleated Red Blood Cells # 0.010^3/ul Current Medications Medications (Trade) Dose Ordered Sig/Elvie Route PRN Reason Start Time Stop Time Status Last Admin Dose Admin Sodium Chloride (NS) 1,000 ml @ 1,000 mls/hr Q1H STAT IV 12/17/16 08:53 12/17/16 09:52 DC 12/17/16 09:26 Morphine Sulfate (morphine) 4 mg ONCE STAT IV 12/17/16 08:53 12/17/16 08:54 DC 12/17/16 09:27 Ondansetron HCl (Zofran Inj) 4 mg ONCE STAT IV 12/17/16 08:53 12/17/16 08:54 DC 12/17/16 09:27 Ondansetron HCl (Zofran Inj) 4 mg BRIDGE ORDER PRN IV NAUSEA AND/OR VOMITING 12/17/16 09:00 12/18/16 08:59 Acetaminophen (Tylenol Tab) 650 mg ER BRIDGE PRN PO MILD PAIN/FEVER 12/17/16 09:00 12/18/16 08:59 Procedures/MDM Patient is a 41-year-old female presents with acute abdominal pain with intractable vomiting. The patient has failed outpatient treatment at this time and will require inpatient admission. I spoke with Dr. Paez who will admit the patient to a medical surgical bed. Laboratory studies are pending at this time. The patient will be given Zofran for nausea and vomiting as well as 1 L of fluid for fluid resuscitation. At this point I doubt appendicitis, cholecystitis, pancreatitis, or bowel obstruction. Departure Diagnosis: Primary Impression: Vomiting Qualified Code: R11.2 - Intractable vomiting with nausea, unspecified vomiting type Additional Impression: Headache Qualified Code: R51 - Acute nonintractable headache, unspecified headache type Condition: BOLIVAR Perez MD Dec 17, 2016 10:20
[2016-12-17 10:27] LABS: POTASSIUM 5.4 mmol/L (3.5-5.1)
[2016-12-17 10:30] LABS: UR BACTERIA RARE; URINE RBCS 0-2 /HPF (0)
[2016-12-17 10:44] LABS: THYROID STIMULATING HORMONE 2.64 MIU/L (0.465-4.680)
[2016-12-17] MEDS ORDERED: SOD CHLORIDE 0.9% 1,000 ML IV ONE (11:46)
[2016-12-17] MEDS ORDERED: NACL 0.9% 3 ML SYG IV SCH (13:00)
[2016-12-17] MEDS ORDERED: morphine 2 MG INJ IV PRN (13:00)
[2016-12-17] MEDS ORDERED: MAGNESIUM SULFATE 2 GM/50 ML 50 ML IVPB ONE (13:00)
--- NOTE | 2016-12-17 13:01 | HP ---
DATE OF ADMISSION: 12/17/2016 CHIEF COMPLAINT: Nausea and vomiting. Abdominal pain. HISTORY OF PRESENT ILLNESS: The patient is a 41-year-old female known to me from previous admission s. The patient with Hirschsprung disease, chronic anemia. The patient had multiple abdominal surge nida as a child and also had a creation of ileostomy. 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 The patient developed nausea and vomiting last night and abdominal pain, and patient presented to the emergency room. In evaluation in the emergency room, the patient did n ot have any fever or chills. The patient had leukocytosis, with white blood cells elevated to 14,80 0. Hemoglobin was actually 12.8. The patient was noted to have hyperkalemia, with potassium 5.8 an d hyponatremia with sodium of 128. Creatinine and BUN were elevated. The patient did not have any transaminitis. The patient actually contacted Dr. Paez's office yesterday and was given a presc ription for Zofran; however, patient still continued to have nausea and vomiting and presented to [facility] emergency. Patient was getting IV fluids, and patient will be admitted for further evaluation and management. The patient also complains of headache. Denies any chest pain, denies any shortness o f breath. PAST MEDICAL HISTORY: Per HPI. PAST SURGICAL HISTORY: Patient is status post multiple abdominal surgeries for Hirschsprung disease , status post ileostomy. The patient also is status post Port-A-Cath placement by radiology in November 2016. FAMILY HISTORY: Noncontributory. SOCIAL HISTORY: Patient lives at home with her mother. The patient denies any tobacco use, denies any illicit drug use, denies any alcohol use. ALLERGIES: THE PATIENT IS ALLERGIC TO CODEINE AND FERROUS SULFATE. HOME MEDICATIONS: Include: 1. K-Dur. 2. Midodrine. 3. Magnesium chloride. 4. Tylenol. 5. Multivitamins. 6. Vistaril. 7. Proair. 8. Folic acid. 9. Pepcid. 10. Vitamin B12. 11. Zofran. REVIEW OF SYSTEMS: A 12-point review of systems is negative unless mentioned in the HPI. PHYSICAL ASSESSMENT: GENERAL: This is a well-developed female, awake, alert. VITAL SIGNS: Temperature is 98.0, pulse is 80, blood pressure is 109/53, respiratory rate 19, oxyge n saturation 99% on room air. HEENT: Head is atraumatic, normocephalic. Pupils equal, round, reactive to light and accommodation . Oral mucosa is pink and moist. NECK: Supple. No cervical lymphadenopathy, no thyromegaly. CHEST: Lungs clear bilaterally. There are no rhonchi, wheezes, rales noted. CARDIOVASCULAR: Normal S1, S2. No murmurs, gallops, clicks, rubs noted. ABDOMEN: The patient has diffuse tenderness all over the abdomen. Patient also has ileostomy in [facility] with pink intact stoma. No bowel sounds present. No guarding, no rebound tenderness. EXTREMITIES: No edema, clubbing, cyanosis. Pulses equal bilaterally 2+. SKIN: There is no rash, petechiae noted. NEUROLOGIC: Patient is awake, alert and oriented x4. No focal deficits noted. Motor strength 5/5 in all extremities. LABORATORY DATA: On admission, CBC: White blood 14.8, hemoglobin 12.8, hematocrit 35.2, platelets 649. Chemistry: Sodium is 128, potassium 5.4, chloride 93, carbon dioxide 16, anion gap 24, BUN 83 , creatinine 1.81, magnesium 1.6. ASSESSMENT AND PLAN: 1. Intractable nausea and vomiting. 2. Acute kidney injury secondary to dehydration. 3. Hirschsprung disease. 4. Ileostomy. 5. Headache. Going to admit patient to medical/surgical floor. Continue IV fluids. Monitor electrolytes. Dr. Naomi bell will be following patient in nephrology consultation. Will ask ____ to see patient from [place] stroenterologist standpoint. Continue Zofran IV p.r.n. for nausea, and morphine and Tylenol p.r.n. for headache and pain. Sequential compression devices for deep venous thrombosis prophylaxis and Pr otonix for peptic ulcer disease prophylaxis. Further recommendations based on clinical course. Prudence n of care discussed with Dr. Paez. Dictated By: ROMI ESPINO MACHINE FEED OPERATOR for CARLOS PAEZ MD SR/NTS Conf#: [id number] DID#: [id number]
--- NOTE | 2016-12-17 17:16 | CONS ---
DATE OF ADMISSION: 12/17/2016 DATE OF CONSULTATION: 12/17/2016 TYPE OF CONSULTATION: Nephrology. REFERRING PHYSICIAN: Noel Paez MD REASON FOR CONSULTATION: Acute kidney injury with a BUN of 83, creatinine 1.8, sodium 128, potassium 5.4, carbon dioxide 16. HISTORY OF PRESENT ILLNESS: This is a 41-year-old female who has a past medical history of Hirschsprung disease, status post ileostomy, history of recent multiple hospitalizations for acute renal failure and also for electrolyte abnormalities. She presented back this time to the [facility] with a complaint of abdominal pain, nausea, vomiting. The patient also stated that she has been having very high output in her ileostomy. She is noted to have acute kidney injury with a BUN of 83, creatinine of 1.8, potassium of 5.4 and sodium is 128. The patient gets admitted to the medical/surgical floor, started on IV fluids, and renal has been consulted for acute kidney injury and electrolyte abnormalities. REVIEW OF SYSTEMS: As per HPI. PAST MEDICAL HISTORY: Notable for Hirschsprung disease, history of recent recurrent admissions for acute kidney injury and electrolyte abnormalities. PAST SURGICAL HISTORY: History of ileostomy. SOCIAL HISTORY: Lives with her mother. No smoking, alcohol or recreational drug use. PHYSICAL EXAMINATION: VITAL SIGNS: Temperature 96.6, heart rate 108, respirations 18, blood pressure 115/89, saturation 100% on room air. GENERAL: Awake, alert, in no distress. HEENT: Normal. Oropharynx clear. Dry mucous membranes. NECK: Supple, no JVD, no lymphadenopathy. LUNGS: Decreased breath sounds at both lung bases. HEART: S1, S2, with regular rhythm, no murmur. ABDOMEN: Soft, tender to palpation in the ileostomy site. No rebound, no guarding. Bowel sounds are present. EXTREMITIES: No clubbing, cyanosis, or edema. NEUROLOGICAL: Nonfocal, intact. PSYCHIATRIC: Appropriate affect and mood. LABORATORY DATA/DIAGNOSTIC IMAGING: Sodium 128, potassium 5.4, chloride 93, bicarbonate 16, BUN 83, creatinine 1.8, glucose 168, calcium 9.2, albumin is 5.1. WBC 14.8, hemoglobin 12.8, platelet count is 649. Urinalysis shows 2+ total protein. IMPRESSION: This is a 41-year-old female who is getting admitted for abdominal pain, nausea, vomiting. Renal has been consulted for: 1. Acute kidney injury secondary to severe prerenal azotemia secondary to nausea, vomiting and decreased p.o. intake. 2. Hyponatremia with a sodium of 128 secondary to hypovolemic hyponatremia. 4. Hyperkalemia secondary to worsening acute kidney injury and renal failure. 5. Metabolic acidosis with bicarbonate of 16 secondary to increased ileostomy output. PLAN: Thank you, Dr. Paez, for this consultation. The patient currently seen in the emergency room. She is waiting to get admitted to the floor. Currently, she has been getting NS at 200 mL/hour, but I will change the IV fluids to D5 half NS at 75 mL/hour. The patient already had previously multiple workups for her chronic kidney disease, so no need to repeat any kind of labs at this point. I expecting the patient's creatinine to improve with IV fluid hydration and I will continue to follow this patient along with the primary care service. Once again, thank you, Dr. Paez, for this consultation. I will continue to follow this patient along with you. Dictated By: ROHAN VELÁZQUEZ MD, KP/CRISTINA Conf#: [id number] DID#: [id number] MANSI
[2016-12-17] MEDS: DEXTROSE 5%-0.45% NACL 1,000 ML IV SCH (18:48)
[2016-12-17 20:24] VITALS: BP 103/52; RESP 18
[2016-12-17 20:25] VITALS: Ht 147.3 cm; Wt 33.5 kg
[2016-12-17] MEDS ORDERED: MIDODRINE 2.5 MG TAB PO PRN (22:30)
[2016-12-17] MEDS ORDERED: FAMOTIDINE 20 MG TAB PO SCH (22:30)
[2016-12-17] MEDS ORDERED: ALBUTEROL 18 GM INHALER INH PRN (22:30)
[2016-12-17] MEDS ORDERED: ACETAMINOPHEN 500 MG TAB PO PRN (22:30)
[2016-12-17] MEDS: MAGNESIUM CHLORIDE (SR) 64 MG TAB PO SCH (22:47)
[2016-12-17] MEDS: FAMOTIDINE 20 MG TAB PO SCH (22:48)
[2016-12-18] MEDS: DEXTROSE 5%-0.45% NACL 1,000 ML IV SCH ×3 (03:00→15:22)
[2016-12-18 05:51] LABS: ADD SCAN DIFF NO
[2016-12-18 05:54] LABS: BASOPHILS % 0.9 % (0.0-2.0); EOSINOPHILS # 0.2 10^3/ul (0.0-0.5); EOSINOPHILS % 5.3 % (0.0-7.0); HEMATOCRIT 29.6 % (37.0-47.0); HEMOGLOBIN 10.4 g/dl (12.0-16.0); LYMPHOCYTES # 0.7 10^3/ul (0.8-2.9); LYMPHOCYTES % 15.1 % (15.0-51.0); MEAN CORPUSCULAR HEMOGLOBIN 31.5 pg (29.0-33.0); MEAN CORPUSCULAR HGB CONC 35.1 g/dl (32.0-37.0); MEAN CORPUSCULAR VOLUME 89.7 fl (82.0-101.0); MEAN PLATELET VOLUME 9.4 fl (7.4-10.4); MONOCYTE # 0.7 10^3/ul (0.3-0.9); MONOCYTES % 15.8 % (0.0-11.0); NEUTROPHIL # 2.8 10^3/ul (1.6-7.5); NEUTROPHILS % 61.8 % (39.0-77.0); PLATELET COUNT 421 10^3/UL (140-415); RED CELL DISTRIBUTION WIDTH 12.6 % (11.5-14.5); WHITE BLOOD COUNT 4.6 10^3/ul (4.8-10.8)
[2016-12-18] MEDS: PANTOPRAZOLE (EC) 40 MG TAB PO SCH (05:54)
[2016-12-18 06:25] LABS: ALBUMIN 4.4 g/dl (3.3-4.9); ALBUMIN/GLOBULIN RATIO 1.29; BILIRUBIN,INDIRECT 0.1 mg/dl (0-1.1); BILIRUBIN,TOTAL 0.1 mg/dl (0.2-1.3); CALCIUM 8.8 mg/dl (8.4-10.2); CREATININE 0.81 mg/dl (0.44-1.00); POTASSIUM 3.4 mmol/L (3.5-5.1); TOTAL PROTEIN 7.8 g/dl (6.1-8.1)
[2016-12-18 08:00] VITALS: BP 107/56; RESP 20
[2016-12-18] MEDS: MAGNESIUM CHLORIDE (SR) 64 MG TAB PO SCH ×2 (08:28→21:19)
[2016-12-18] MEDS: FOLIC ACID 1 MG TAB PO SCH (08:28)
[2016-12-18] MEDS ORDERED: POTASSIUM CHLORIDE (SR) 20 MEQ TAB PO SCH (09:00)
[2016-12-18] MEDS: POTASSIUM CHLORIDE (SR) 20 MEQ TAB PO SCH (10:10)
--- NOTE | 2016-12-18 13:15 | CONS ---
DATE OF ADMISSION: 12/17/2016 DATE OF CONSULTATION: GASTROENTEROLOGY CONSULTATION Dear Dr. Paez: Thank you for asking me to see Ms. Martin in GI consultation. HISTORY OF PRESENT ILLNESS: As you know, the patient is a 41-year-old [place] female, admitted to the hospital with history of vomiting which has been going on for the past 2 days. There is no hist ory of vomiting blood or passing blood from the rectum. In fact, she has an ileostomy done because of the Hirschsprung's disease, which the surgery she had as an . No history of bleeding from the ileostomy. No history of dysphagia, but she has heartburn, abdomina l discomfort, and indigestion from time to time. MEDICATIONS: Include: 1. K-Dur. 2. Midodrine. 3. Magnesium chloride. 4. Tylenol. 5. Multivitamins. 6. Restoril. 7. ProAir. 8. Folic acid. 9. Pepcid. 10. Vitamin B12. 11. Zofran. PHYSICAL EXAMINATION: GENERAL: The patient is a 41-year-old [place] female who at this time is alert, she is thin built, she is cachectic. VITAL SIGNS: She is afebrile. CARDIOVASCULAR: Normal heart sounds. RESPIRATORY: Normal breath sounds. ABDOMEN: Showed unremarkable findings. She has ileostomy. No abdominal distention, no tenderness, no palpable masses. LABORATORY WORKUP: The hemoglobin is 10.4, WBC is 4600, platelet count is 421,000. Potassium 3.4. Sodium is 136, creatinine 36, BUN is 13. Lipase 71. IMAGING STUDIES: CAT scan noted. CLINICAL IMPRESSION: The patient presenting with history of abdominal pain and vomiting, indigestio n, heartburn. Certainly one should rule out the possibility of gastroesophageal reflux disease, pep tic ulcer disease. She has no diabetes. Status post ileostomy for Hirschsprung's disease. PLAN: Recommend upper endoscopy. Recommend abdominal series. Dictated By: SELINA ALVARADO/CRISTINA Conf#: [id number] DID#: [id number] CC: CARLOS PAEZ MD;*EndCC*
--- NOTE | 2016-12-18 19:12 | PN ---
Date/Time of Note Date/Time of Note DATE: 12/18/16 TIME: 19:10 Assessment/Plan VTE Prophylaxis VTE Prophylaxis Intervention: SCD's Lines/Catheters IV Catheter Type (from [facility]): Right Chest Port-a-cath Urinary Cath still in place: No Assessment/Plan Chief Complaint/Hosp Course Patient denies any nausea vomiting, remains hemodynamically stable. ASSESSMENT AND PLAN: 1. Intractable nausea and vomiting. Dr. Mendez is following in gastroenterology consultation. 2. Acute kidney injury secondary to dehydration, resolving. Dr. Spain is following in nephrology consultation. Continue IV fluids monitor electrolytes. 3. Hirschsprung disease. 4. Ileostomy. Further recommendations based on clinical course. Plan of care discussed with Dr. Paez. Problems: Exam/Review of Systems Vital Signs Vitals Vital Signs Date Time Temp Pulse Resp B/P Pulse Ox O2 Delivery O2 Flow Rate FiO2 12/18/16 08:00 98.3 85 20 107/56 100 12/17/16 19:43 Room Air Intake and Output 12/17/16 12/17/16 12/18/16 15:00 23:00 07:00 Intake Total 1500 ml Output Total 400 ml Balance 1100 ml Exam Constitutional: alert, oriented Head: normocephalic Neck: supple Respiratory: normal air movement Cardiovascular: nl pulses Gastrointestinal: non-tender, other (Ileostomy), soft Musculoskeletal: nl gait and stance Extremities: normal pulses 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: RESPONDER II-XII intact Additional Comments Right chest Port-A-Cath Results Result Diagram: 12/18/16 0446 12/18/16 0446 Results 24 hrs Laboratory Tests Test 12/18/16 04:46 White Blood Count 4.6 #L Red Blood Count 3.30 L Hemoglobin 10.4 L Hematocrit 29.6 L Mean Corpuscular Volume 89.7 Mean Corpuscular Hemoglobin 31.5 Mean Corpuscular Hemoglobin Concent 35.1 Red Cell Distribution Width 12.6 Platelet Count 421 #H Mean Platelet Volume 9.4 Neutrophils % 61.8 Lymphocytes % 15.1 Monocytes % 15.8 H Eosinophils % 5.3 Basophils % 0.9 Nucleated Red Blood Cells % 0.0 Neutrophils # 2.8 Lymphocytes # 0.7 L Monocytes # 0.7 Eosinophils # 0.2 Basophils # 0.0 Nucleated Red Blood Cells # 0.0 Sodium Level 136 Potassium Level 3.4 #L Chloride Level 101 Carbon Dioxide Level 25 Anion Gap 13 # Blood Urea Nitrogen 36 #H Creatinine 0.81 # Glucose Level 129 Calcium Level 8.8 Total Bilirubin 0.1 L Direct Bilirubin 0.00 Indirect Bilirubin 0.1 Aspartate Amino Transf (AST/SGOT) 35 Alanine Aminotransferase (ALT/SGPT) 34 Alkaline Phosphatase 72 Total Protein 7.8 # Albumin 4.4 Globulin 3.40 H Albumin/Globulin Ratio 1.29 Medications Medications Current Medications Ondansetron HCl (Zofran Inj) 4 mg Q6H PRN IV NAUSEA AND/OR VOMITING; Start 12/17 at 13:00 Morphine Sulfate (morphine) 1 mg Q4H PRN IV PAIN LEVEL 7-10; Start 12/17/16 at 13:00 Pantoprazole 40 mg 40 mg DAILY@06 PO Last administered on 12/18/16 05:54; Admin Dose 40 MG; Start 12/18/16 at 06:00 Dextrose/Sodium Chloride (D5-1/2ns) 1,000 ml @ 100 mls/hr Q10H IV Last administered on 12/18/16 15:22; Admin Dose 100 MLS/HR; Start 12/17/16 at 17:00 Acetaminophen (Tylenol Tab) 500 mg Q4H PRN PO PAIN AND OR ELEVATED TEMP; Start 12/17/16 at 22:30 Albuterol (Ventolin Hfa) 2 puff Q4H PRN INH WHEEZING AND SOB; Start 12/17/16 at 22:30 Folic Acid (Folic Acid) 1 mg DAILY PO Last administered on 12/18/16 08:28; Admin Dose 1 MG; Start 12/18/16 at 09:00 Hydroxyzine Pamoate (Vistaril) 25 mg QHS PRN PO ITCHING; Start 12/17/16 at 22:30 Magnesium Chloride (Mag 64) 64 mg BID PO Last administered on 12/18/16 08:28; Admin Dose 64 MG; Start 12/17/16 at 23:30 Midodrine (Proamatine) 2.5 mg BID@,17 PRN PO SBP <90; Start 12/17/16 at 22:30 Potassium Chloride (Klor-Con 20) 20 meq BID PO ; Start 12/18/16 at 09:00; Status Future Hold Famotidine (Pepcid) 20 mg Q24H PO Last administered on 12/17/16 22:48; Admin Dose 20 MG; Start 12/17/16 at 22:30 Potassium Chloride (Klor-Con 20) 20 meq DAILY PO Last administered on 12/18/16 10:10; Admin Dose 20 MEQ; Start 12/18/16 at 09:30 ROMI ESPINO Dec 18, 2016 19:12
[2016-12-18 21:18] VITALS: BP 100/60; RESP 20
[2016-12-18] MEDS: FAMOTIDINE 20 MG TAB PO SCH (21:19)
--- NOTE | 2016-12-18 22:33 | CONS ---
Date/Time of Note Date/Time of Note DATE: 12/18/16 TIME: 22:30 Assessment/Plan Assessment/Plan Additional Assessment/Plan 1. Acute kidney injury secondary to severe prerenal azotemia secondary to nausea, vomiting and decreased p.o. intake. 2. Hyponatremia with a sodium of 128 secondary to hypovolemic hyponatremia. 4. Hyperkalemia secondary to worsening acute kidney injury and renal failure. 5. Metabolic acidosis with bicarbonate of 16 secondary to increased ileostomy output. PLAN: Cr improved to normal K anderearnest replaced will follow up pt need G surg evaluation for her Ostomy output will follow up Consultation Date/Type/Reason Admit Date/Time Dec 17, 2016 at 08:55 Initial Consult Date Dec Type of Consultation: NEPHROLOGY Reason for Consultation acute renal failure, hyponatremia Referring Provider: CARLOS RODRIGUEZ MD 24 HR Interval Summary Free Text/Dictation Cr improved to 0.94, K 3.4 Exam/Review of Systems Vital Signs Vitals Vital Signs Date Time Temp Pulse Resp B/P Pulse Ox O2 Delivery O2 Flow Rate FiO2 12/18/16 21:18 98.0 102 20 100/60 96 12/17/16 19:43 Room Air Intake and Output 12/17/16 12/17/16 12/18/16 15:00 23:00 07:00 Intake Total 1500 ml Output Total 400 ml Balance 1100 ml Exam GENERAL: Awake, alert, in no distress. HEENT: Normal. Oropharynx clear. Dry mucous membranes. NECK: Supple, no JVD, no lymphadenopathy. LUNGS: Decreased breath sounds at both lung bases. HEART: S1, S2, with regular rhythm, no murmur. ABDOMEN: Soft, tender to palpation in the ileostomy site. No rebound, no guarding. Bowel sounds are present. EXTREMITIES: No clubbing, cyanosis, or edema. NEUROLOGICAL: Nonfocal, intact. PSYCHIATRIC: Appropriate affect and mood. Results Result Diagram: 12/18/16 0446 12/18/16 0446 Results 24 hrs Laboratory Tests Test 12/18/16 04:46 White Blood Count 4.6 #L Red Blood Count 3.30 L Hemoglobin 10.4 L Hematocrit 29.6 L Mean Corpuscular Volume 89.7 Mean Corpuscular Hemoglobin 31.5 Mean Corpuscular Hemoglobin Concent 35.1 Red Cell Distribution Width 12.6 Platelet Count 421 #H Mean Platelet Volume 9.4 Neutrophils % 61.8 Lymphocytes % 15.1 Monocytes % 15.8 H Eosinophils % 5.3 Basophils % 0.9 Nucleated Red Blood Cells % 0.0 Neutrophils # 2.8 Lymphocytes # 0.7 L Monocytes # 0.7 Eosinophils # 0.2 Basophils # 0.0 Nucleated Red Blood Cells # 0.0 Sodium Level 136 Potassium Level 3.4 #L Chloride Level 101 Carbon Dioxide Level 25 Anion Gap 13 # Blood Urea Nitrogen 36 #H Creatinine 0.81 # Glucose Level 129 Calcium Level 8.8 Total Bilirubin 0.1 L Direct Bilirubin 0.00 Indirect Bilirubin 0.1 Aspartate Amino Transf (AST/SGOT) 35 Alanine Aminotransferase (ALT/SGPT) 34 Alkaline Phosphatase 72 Total Protein 7.8 # Albumin 4.4 Globulin 3.40 H Albumin/Globulin Ratio 1.29 Medications Medications Current Medications Ondansetron HCl (Zofran Inj) 4 mg Q6H PRN IV NAUSEA AND/OR VOMITING; Start 12/17 at 13:00 Morphine Sulfate (morphine) 1 mg Q4H PRN IV PAIN LEVEL 7-10; Start 12/17/16 at 13:00 Pantoprazole 40 mg 40 mg DAILY@06 PO Last administered on 12/18/16 05:54; Admin Dose 40 MG; Start 12/18/16 at 06:00 Dextrose/Sodium Chloride (D5-1/2ns) 1,000 ml @ 100 mls/hr Q10H IV Last administered on 12/18/16 15:22; Admin Dose 100 MLS/HR; Start 12/17/16 at 17:00 Acetaminophen (Tylenol Tab) 500 mg Q4H PRN PO PAIN AND OR ELEVATED TEMP; Start 12/17/16 at 22:30 Albuterol (Ventolin Hfa) 2 puff Q4H PRN INH WHEEZING AND SOB; Start 12/17/16 at 22:30 Folic Acid (Folic Acid) 1 mg DAILY PO Last administered on 12/18/16 08:28; Admin Dose 1 MG; Start 12/18/16 at 09:00 Hydroxyzine Pamoate (Vistaril) 25 mg QHS PRN PO ITCHING; Start 12/17/16 at 22:30 Magnesium Chloride (Mag 64) 64 mg BID PO Last administered on 12/18/16 21:19; Admin Dose 64 MG; Start 12/17/16 at 23:30 Midodrine (Proamatine) 2.5 mg BID@, PRN PO SBP <90; Start 12/17/16 at 22:30 Potassium Chloride (Klor-Con 20) 20 meq BID PO ; Start 12/18/16 at 09:00; Status Future Hold Famotidine (Pepcid) 20 mg Q24H PO Last administered on 12/18/16 21:19; Admin Dose 20 MG; Start 12/17/16 at 22:30 Potassium Chloride (Klor-Con 20) 20 meq DAILY PO Last administered on 12/18/16 10:10; Admin Dose 20 MEQ; Start 12/18/16 at 09:30 ROHAN VELÁZQUEZ MD Dec 18, 2016 22:33
[2016-12-19] MEDS: DEXTROSE 5%-0.45% NACL 1,000 ML IV SCH ×4 (00:33→23:48)
[2016-12-19] MEDS: PANTOPRAZOLE (EC) 40 MG TAB PO SCH (05:28)
[2016-12-19 08:17] VITALS: BP 101/64; RESP 20
[2016-12-19] MEDS: FOLIC ACID 1 MG TAB PO SCH (09:00)
[2016-12-19] MEDS: MAGNESIUM CHLORIDE (SR) 64 MG TAB PO SCH ×2 (09:00→20:59)
[2016-12-19] MEDS: POTASSIUM CHLORIDE (SR) 20 MEQ TAB PO SCH (09:00)
--- NOTE | 2016-12-19 10:48 | CONS ---
Date/Time of Note Date/Time of Note DATE: 12/19/16 TIME: 10:46 Assessment/Plan Assessment/Plan Additional Assessment/Plan 1. Acute kidney injury secondary to severe prerenal azotemia secondary to nausea, vomiting and decreased p.o. intake. 2. Hyponatremia with a sodium of 128 secondary to hypovolemic hyponatremia. 4. Hyperkalemia secondary to worsening acute kidney injury and renal failure. 5. Metabolic acidosis with bicarbonate of 16 secondary to increased ileostomy output. PLAN: Cr improved to normal NO labs today to review Plan for GI procedure today pt need G surg evaluation for her Ostomy output will follow up Consultation Date/Type/Reason Admit Date/Time Dec 17, 2016 at 08:55 Initial Consult Date Dec Type of Consultation: NEPHROLOGY Referring Provider: CARLOS RODRIGUEZ MD 24 HR Interval Summary Free Text/Dictation doing ok, BP stable,, afebrile NPO for possible EGD today Exam/Review of Systems Vital Signs Vitals Vital Signs Date Time Temp Pulse Resp B/P Pulse Ox O2 Delivery O2 Flow Rate FiO2 12/19/16 08:17 98.2 91 20 101/64 97 12/17/16 19:43 Room Air Intake and Output 12/18/16 12/18/16 12/19/16 15:00 23:00 07:00 Intake Total 2680 ml 2450 ml Balance 2680 ml 2450 ml Exam GENERAL: Awake, alert, in no distress. HEENT: Normal. Oropharynx clear. Dry mucous membranes. NECK: Supple, no JVD, no lymphadenopathy. LUNGS: Decreased breath sounds at both lung bases. HEART: S1, S2, with regular rhythm, no murmur. ABDOMEN: Soft, tender to palpation in the ileostomy site. No rebound, no guarding. Bowel sounds are present. EXTREMITIES: No clubbing, cyanosis, or edema. NEUROLOGICAL: Nonfocal, intact. PSYCHIATRIC: Appropriate affect and mood. Results Result Diagram: 12/18/16 0446 12/18/16 0446 Medications Medications Current Medications Ondansetron HCl (Zofran Inj) 4 mg Q6H PRN IV NAUSEA AND/OR VOMITING; Start 12/17 at 13:00 Morphine Sulfate (morphine) 1 mg Q4H PRN IV PAIN LEVEL 7-10; Start 12/17/16 at 13:00 Pantoprazole 40 mg 40 mg DAILY@06 PO Last administered on 12/19/16 05:28; Admin Dose 40 MG; Start 12/18/16 at 06:00 Dextrose/Sodium Chloride (D5-1/2ns) 1,000 ml @ 100 mls/hr Q10H IV Last administered on 12/19/16 08:59; Admin Dose 100 MLS/HR; Start 12/17/16 at 17:00 Acetaminophen (Tylenol Tab) 500 mg Q4H PRN PO PAIN AND OR ELEVATED TEMP; Start 12/17/16 at 22:30 Albuterol (Ventolin Hfa) 2 puff Q4H PRN INH WHEEZING AND SOB; Start 12/17/16 at 22:30 Folic Acid (Folic Acid) 1 mg DAILY PO Last administered on 12/18/16 08:28; Admin Dose 1 MG; Start 12/18/16 at 09:00 Hydroxyzine Pamoate (Vistaril) 25 mg QHS PRN PO ITCHING; Start 12/17/16 at 22:30 Magnesium Chloride (Mag 64) 64 mg BID PO Last administered on 12/18/16 21:19; Admin Dose 64 MG; Start 12/17/16 at 23:30 Midodrine (Proamatine) 2.5 mg BID@,17 PRN PO SBP <90; Start 12/17/16 at 22:30 Potassium Chloride (Klor-Con 20) 20 meq BID PO ; Start 12/18/16 at 09:00; Status Future Hold Famotidine (Pepcid) 20 mg Q24H PO Last administered on 12/18/16 21:19; Admin Dose 20 MG; Start 12/17/16 at 22:30 Potassium Chloride (Klor-Con 20) 20 meq DAILY PO Last administered on 12/18/16 10:10; Admin Dose 20 MEQ; Start 12/18/16 at 09:30 ROHAN VELÁZQUEZ MD Dec 19, 2016 10:48
[2016-12-19] MEDS ORDERED: PROPOFOL 20 ML ONE (15:33)
[2016-12-19] MEDS ORDERED: LIDOCAINE 2% (SDV) 5 ML INJ ONE (15:33)
[2016-12-19] MEDS ORDERED: PHENYLephrine (100 MCG/ML) 5ML SYG ONE (15:34)
[2016-12-19] MEDS ORDERED: FENTAnyl 50 MCG/ML VIAL ONE (15:34)
[2016-12-19 16:01] VITALS: BP 98/58; PULSE 77; RESP 14
[2016-12-19 16:06] VITALS: BP 106/57; PULSE 74; RESP 17
[2016-12-19 16:11] VITALS: BP_SYST 105; BP_DIAS 58; BP_DIAS 68; PULSE 76; PULSE 77; RESP 17; RESP 6
--- NOTE | 2016-12-19 16:18 | GILP ---
DATE OF PROCEDURE: NAME OF PROCEDURE: Esophagogastroduodenoscopy. PREOPERATIVE DIAGNOSIS: Patient presenting with a history of repeated vomiting, a history of weight loss. Rule out peptic ulcer disease, malignancy of the upper gastrointestinal tract. POSTOPERATIVE DIAGNOSES: 1. Ulcerated area in the mid body of the stomach, surrounded by thickening of the folds. Rule out MALT lymphoma. 2. Patchy gastritis. 3. Diverticulum in the fundus. 4. Thickening of the mucosa noted in the GE junction. DESCRIPTION OF PROCEDURE: After informed written consent was obtained, the patient was asked to lie on the left lateral side. Intravenous anesthesia was given by the [employer] SUPERVISOR. When the patient became s omnolent, the Olympus video upper endoscope was introduced into the oropharynx, then into the esopha sierra. The esophagus appeared normal, with no mucosal abnormality. The GE junction showed evidence o f thickening of the mucosa. Biopsies were obtained to rule out a possible neoplastic process. The scope at this time was advanced into the stomach. The mid body of the stomach showed evidence of th ickening of the folds, but in the middle of this thickened fold there is evidence of what looks like an ulcerated area. Multiple biopsies were done of this area. It appeared to be rather firm. Nadia ral areas of patchy erythema were noted in the stomach. Fundal diverticulum noted. Biopsy was done from the antrum, the lesser curvature and the fundus to rule out H. pylori infection. The mucosa o f the duodenum appeared normal up to the end of the third portion. The scope at this time was withd rawn. No additional abnormalities were detected and the procedure was terminated. PLAN: Recommend to wait for the pathology report. Dictated By: SELINA ALVARADO/CRISTINA Conf#: [id number] DID#: [id number] CC: CARLOS RODRIGUEZ MD;*EndCC*
[2016-12-19] MEDS ORDERED: FENTAnyl 50 MCG/ML VIAL IV PRN ×3 (16:30)
[2016-12-19] MEDS ORDERED: LABETALOL HCL 20MG INJ IV PRN (16:30)
[2016-12-19] MEDS ORDERED: EPHEDrine SULFATE 50 MG/5 ML SYG IV PRN (16:30)
[2016-12-19] MEDS ORDERED: ONDANSETRON 4 MG INJ IV PRN (16:30)
[2016-12-19] MEDS ORDERED: POTASSIUM CHLORIDE (SR) 20 MEQ TAB PO STA (19:05)
--- NOTE | 2016-12-19 19:10 | PN ---
Date/Time of Note Date/Time of Note DATE: 12/19/16 TIME: 19:06 Assessment/Plan VTE Prophylaxis VTE Prophylaxis Intervention: other Lines/Catheters IV Catheter Type (from Nrsg): portacath Urinary Cath still in place: No Assessment/Plan Assessment/Plan -MRSA Nares positive - Bactroban oint. bid to nares - contact isolation - Hypokalemia- replet with po kcl 20 meq x1, BMP am - Intractable nausea and vomiting. Dr. Mendez is following in gastroenterology consultation. - Acute kidney injury secondary to dehydration, resolving. Dr. Spain is following in nephrology consultation. Continue IV fluids monitor electrolytes. - Hirschsprung disease. -. Ileostomy. Further recommendations based on clinical course. Plan of care discussed with Dr. Moran Subjective 24 Hr Interval Summary Free Text/Dictation getting her colostomy bag changed- brown liquid stool noted, no c/o nausea/ vomitting, afebrile, dw staff- MRSA Nares positive. dw staff Respiratory: no complaints Cardiovascular: no complaints Gastrointestinal: no complaints Genitourinary: no complaints Exam/Review of Systems Vital Signs Vitals Vital Signs Date Time Temp Pulse Resp B/P Pulse Ox O2 Delivery O2 Flow Rate FiO2 12/19/16 16:11 76 17 105/58 100 Room Air 12/19/16 16:01 98.0 Intake and Output 12/18/16 12/18/16 12/19/16 15:00 23:00 07:00 Intake Total 2680 ml 2450 ml Balance 2680 ml 2450 ml Exam Constitutional: alert, oriented Respiratory: clear to auscultation, normal air movement Cardiovascular: nl pulses, regular rate and rhythm Gastrointestinal: non-tender, other (RUQ), soft Musculoskeletal: nl extremities to inspection Extremities: normal pulses 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: nl mental status, nl speech Skin: other (multiple healed surgical scars noted) Lymph: nontender Results Result Diagram: 12/18/1644512/18/16445 Medications Medications Current Medications Ondansetron HCl (Zofran Inj) 4 mg Q6H PRN IV NAUSEA AND/OR VOMITING; Start 12/17 at 13:00 Morphine Sulfate (morphine) 1 mg Q4H PRN IV PAIN LEVEL 7-10; Start 12/17/16 at 13:00 Pantoprazole 40 mg 40 mg DAILY@06 PO Last administered on 12/19/16 05:28; Admin Dose 40 MG; Start 12/18/16 at 06:00 Dextrose/Sodium Chloride (D5-1/2ns) 1,000 ml @ 100 mls/hr Q10H IV Last administered on 12/19/16 08:59; Admin Dose 100 MLS/HR; Start 12/17/16 at 17:00 Acetaminophen (Tylenol Tab) 500 mg Q4H PRN PO PAIN AND OR ELEVATED TEMP; Start 12/17/16 at 22:30 Albuterol (Ventolin Hfa) 2 puff Q4H PRN INH WHEEZING AND SOB; Start 12/17/16 at 22:30 Folic Acid (Folic Acid) 1 mg DAILY PO Last administered on 12/18/16 08:28; Admin Dose 1 MG; Start 12/18/16 at 09:00 Hydroxyzine Pamoate (Vistaril) 25 mg QHS PRN PO ITCHING; Start 12/17/16 at 22:30 Magnesium Chloride (Mag 64) 64 mg BID PO Last administered on 12/18/16 21:19; Admin Dose 64 MG; Start 12/17/16 at 23:30 Midodrine (Proamatine) 2.5 mg BID@,17 PRN PO SBP <90; Start 12/17/16 at 22:30 Potassium Chloride (Klor-Con 20) 20 meq BID PO ; Start 12/18/16 at 09:00; Status Future Hold Famotidine (Pepcid) 20 mg Q24H PO Last administered on 12/18/16 21:19; Admin Dose 20 MG; Start 12/17/16 at 22:30 Potassium Chloride (Klor-Con 20) 20 meq DAILY PO Last administered on 12/18/16 10:10; Admin Dose 20 MEQ; Start 12/18/16 at 09:30 Mupirocin (Bactroban) 1 applic BID TOP ; Start 12/19/16 at 21:00 DEVENDRA GOMES Dec 19, 2016 19:10
[2016-12-19 20:37] VITALS: BP 91/55; RESP 20
[2016-12-19] MEDS: MUPIROCIN 2% 22 GM OINT TOP SCH (20:59)
[2016-12-19 22:30] VITALS: BP 99/56
[2016-12-19] MEDS: FAMOTIDINE 20 MG TAB PO SCH (22:42)
[2016-12-20] MEDS: PANTOPRAZOLE (EC) 40 MG TAB PO SCH (05:12)
[2016-12-20 05:59] LABS: ADD SCAN DIFF NO
[2016-12-20 06:09] LABS: BASOPHIL # 0.1 10^3/ul (0.0-0.1); BASOPHILS % 1.1 % (0.0-2.0); EOSINOPHILS # 0.6 10^3/ul (0.0-0.5); EOSINOPHILS % 13.8 % (0.0-7.0); HEMATOCRIT 30.1 % (37.0-47.0); LYMPHOCYTES # 0.8 10^3/ul (0.8-2.9); LYMPHOCYTES % 17.9 % (15.0-51.0); MEAN CORPUSCULAR HGB CONC 33.2 g/dl (32.0-37.0); MEAN CORPUSCULAR VOLUME 93.2 fl (82.0-101.0); MEAN PLATELET VOLUME 9.6 fl (7.4-10.4); MONOCYTE # 0.5 10^3/ul (0.3-0.9); MONOCYTES % 11.4 % (0.0-11.0); NEUTROPHIL # 2.5 10^3/ul (1.6-7.5); NEUTROPHILS % 55.1 % (39.0-77.0); PLATELET COUNT 356 10^3/UL (140-415); RED BLOOD COUNT 3.23 10^6/ul (4.20-5.40); RED CELL DISTRIBUTION WIDTH 12.4 % (11.5-14.5); WHITE BLOOD COUNT 4.6 10^3/ul (4.8-10.8)
[2016-12-20 06:29] LABS: CALCIUM 8.9 mg/dl (8.4-10.2); CREATININE 0.82 mg/dl (0.44-1.00); POTASSIUM 3.7 mmol/L (3.5-5.1)
[2016-12-20 08:13] VITALS: BP 88/51; RESP 17
[2016-12-20] MEDS: MAGNESIUM CHLORIDE (SR) 64 MG TAB PO SCH ×2 (08:16→20:28)
[2016-12-20] MEDS: POTASSIUM CHLORIDE (SR) 20 MEQ TAB PO SCH (08:17)
[2016-12-20] MEDS: FOLIC ACID 1 MG TAB PO SCH (08:17)
[2016-12-20] MEDS: MUPIROCIN 2% 22 GM OINT TOP SCH ×2 (08:19→20:28)
--- NOTE | 2016-12-20 11:14 | GILP ---
DATE OF PROCEDURE: 12/20/2016 SUBJECTIVE: She has no complaints at this time. No vomiting. OBJECTIVE: She is not in distress. Pulse is 82, blood pressure 122/76. Abdomen is soft. IMPRESSION: She has a history of gastric ulcer noted on the upper endoscopy. PLAN: At this time results of the biopsy report are pending. Meanwhile, continue proton pump inhib itor therapy and Reglan as needed. Dictated By: SELINA TY MD NC/CRISTINA Conf#: [id number] DID#: [id number] CC: SELINA TY MD;*EndCC*
[2016-12-20] MEDS: DEXTROSE 5%-0.45% NACL 1,000 ML IV SCH ×2 (15:14→20:27)
--- NOTE | 2016-12-20 17:57 | PN ---
Date/Time of Note Date/Time of Note DATE: 12/20/16 TIME: 17:56 Assessment/Plan VTE Prophylaxis VTE Prophylaxis Intervention: SCD's Lines/Catheters [facility] Urinary Cath still in place: No Assessment/Plan Chief Complaint/Hosp Course Patient status post EGD yesterday, denies any nausea vomiting. ASSESSMENT AND PLAN: 1. Intractable nausea and vomiting. Dr. Mendez is following in gastroenterology consultation. 2. Acute kidney injury secondary to dehydration, resolving. Dr. Spain is following in nephrology consultation. Continue IV fluids monitor electrolytes. 3. Hirschsprung disease. 4. Ileostomy. Further recommendations based on clinical course. Plan of care discussed with Dr. Paez. Problems: Exam/Review of Systems Vital Signs Vitals Vital Signs Date Time Temp Pulse Resp B/P Pulse Ox O2 Delivery O2 Flow Rate FiO2 12/20/16 08:13 98.0 95 17 88/51 100 12/19/16 16:11 Room Air Intake and Output 12/19/16 12/19/16 12/20/16 15:00 23:00 07:00 Intake Total 250 ml 2280 ml Output Total 900 ml Balance 250 ml 1380 ml Exam Constitutional: alert, oriented Head: normocephalic Neck: supple Respiratory: normal air movement Cardiovascular: nl pulses Gastrointestinal: non-tender, other (Ileostomy), soft Musculoskeletal: nl gait and stance Extremities: normal pulses 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: OFFICE ASSISTANT II-XII intact Additional Comments Right chest Port-A-Cath Results Result Diagram: 12/20/16 0428 12/20/16 0428 Results 24 hrs Laboratory Tests Test 12/20/16 04:28 White Blood Count 4.6 L Red Blood Count 3.23 L Hemoglobin 10.0 L Hematocrit 30.1 L Mean Corpuscular Volume 93.2 Mean Corpuscular Hemoglobin 31.0 Mean Corpuscular Hemoglobin Concent 33.2 Red Cell Distribution Width 12.4 Platelet Count 356 Mean Platelet Volume 9.6 Neutrophils % 55.1 Lymphocytes % 17.9 Monocytes % 11.4 H Eosinophils % 13.8 H Basophils % 1.1 Nucleated Red Blood Cells % 0.0 Neutrophils # 2.5 Lymphocytes # 0.8 Monocytes # 0.5 Eosinophils # 0.6 H Basophils # 0.1 Nucleated Red Blood Cells # 0.0 Sodium Level 139 Potassium Level 3.7 Chloride Level 108 Carbon Dioxide Level 24 Anion Gap 11 Blood Urea Nitrogen 11 # Creatinine 0.82 Glucose Level 136 Calcium Level 8.9 Medications Medications Current Medications Ondansetron HCl (Zofran Inj) 4 mg Q6H PRN IV NAUSEA AND/OR VOMITING; Start 12/17 at 13:00 Morphine Sulfate (morphine) 1 mg Q4H PRN IV PAIN LEVEL 7-10; Start 12/17/16 at 13:00 Pantoprazole 40 mg 40 mg DAILY@06 PO Last administered on 12/20/16 05:12; Admin Dose 40 MG; Start 12/18/16 at 06:00 Dextrose/Sodium Chloride (D5-1/2ns) 1,000 ml @ 100 mls/hr Q10H IV Last administered on 12/20/16 15:14; Admin Dose 100 MLS/HR; Start 12/17/16 at 17:00 Acetaminophen (Tylenol Tab) 500 mg Q4H PRN PO PAIN AND OR ELEVATED TEMP; Start 12/17/16 at 22:30 Albuterol (Ventolin Hfa) 2 puff Q4H PRN INH WHEEZING AND SOB; Start 12/17/16 at 22:30 Folic Acid (Folic Acid) 1 mg DAILY PO Last administered on 12/20/16 08:17; Admin Dose 1 MG; Start 12/18/16 at 09:00 Hydroxyzine Pamoate (Vistaril) 25 mg QHS PRN PO ITCHING; Start 12/17/16 at 22:30 Magnesium Chloride (Mag 64) 64 mg BID PO Last administered on 12/20/16 08:16; Admin Dose 64 MG; Start 12/17/16 at 23:30 Midodrine (Proamatine) 2.5 mg BID@,17 PRN PO SBP <90; Start 12/17/16 at 22:30 Famotidine (Pepcid) 20 mg Q24H PO Last administered on 12/19/16 22:42; Admin Dose 20 MG; Start 12/17/16 at 22:30 Potassium Chloride (Klor-Con 20) 20 meq DAILY PO Last administered on 12/20/16 08:17; Admin Dose 20 MEQ; Start 12/18/16 at 09:30 Mupirocin (Bactroban) 1 applic BID TOP Last administered on 12/20/16 08:19; Admin Dose 1 APPLIC; Start 12/19/16 at 21:00 ROMI ESPINO Dec 20, 2016 17:57
--- NOTE | 2016-12-20 18:42 | CONS ---
Date/Time of Note Date/Time of Note DATE: 12/20/16 TIME: 18:41 Assessment/Plan Assessment/Plan Additional Assessment/Plan 1. Acute kidney injury secondary to severe prerenal azotemia secondary to nausea, vomiting and decreased p.o. intake. 2. Hyponatremia with a sodium of 128 secondary to hypovolemic hyponatremia. 4. Hyperkalemia secondary to worsening acute kidney injury and renal failure. 5. Metabolic acidosis with bicarbonate of 16 secondary to increased ileostomy output. PLAN: Cr improved to normal, electrolyte stable will follow up Consultation Date/Type/Reason Admit Date/Time Dec 17, 2016 at 08:55 Initial Consult Date Dec Type of Consultation: NEPHROLOGY Referring Provider: CARLOS RODRIGUEZ MD 24 HR Interval Summary Free Text/Dictation no acute events, BP stable Exam/Review of Systems Vital Signs Vitals Vital Signs Date Time Temp Pulse Resp B/P Pulse Ox O2 Delivery O2 Flow Rate FiO2 12/20/16 08:13 98.0 95 17 88/51 100 12/19/16 16:11 Room Air Intake and Output 12/19/16 12/19/16 12/20/16 15:00 23:00 07:00 Intake Total 250 ml 2280 ml Output Total 900 ml Balance 250 ml 1380 ml Exam GENERAL: Awake, alert, in no distress. HEENT: Normal. Oropharynx clear. Dry mucous membranes. NECK: Supple, no JVD, no lymphadenopathy. LUNGS: Decreased breath sounds at both lung bases. HEART: S1, S2, with regular rhythm, no murmur. ABDOMEN: Soft, tender to palpation in the ileostomy site. No rebound, no guarding. Bowel sounds are present. EXTREMITIES: No clubbing, cyanosis, or edema. NEUROLOGICAL: Nonfocal, intact. PSYCHIATRIC: Appropriate affect and mood. Results Result Diagram: 12/20/16 0428 12/20/16 0428 Results 24 hrs Laboratory Tests Test 12/20/16 04:28 White Blood Count 4.6 L Red Blood Count 3.23 L Hemoglobin 10.0 L Hematocrit 30.1 L Mean Corpuscular Volume 93.2 Mean Corpuscular Hemoglobin 31.0 Mean Corpuscular Hemoglobin Concent 33.2 Red Cell Distribution Width 12.4 Platelet Count 356 Mean Platelet Volume 9.6 Neutrophils % 55.1 Lymphocytes % 17.9 Monocytes % 11.4 H Eosinophils % 13.8 H Basophils % 1.1 Nucleated Red Blood Cells % 0.0 Neutrophils # 2.5 Lymphocytes # 0.8 Monocytes # 0.5 Eosinophils # 0.6 H Basophils # 0.1 Nucleated Red Blood Cells # 0.0 Sodium Level 139 Potassium Level 3.7 Chloride Level 108 Carbon Dioxide Level 24 Anion Gap 11 Blood Urea Nitrogen 11 # Creatinine 0.82 Glucose Level 136 Calcium Level 8.9 Medications Medications Current Medications Ondansetron HCl (Zofran Inj) 4 mg Q6H PRN IV NAUSEA AND/OR VOMITING; Start 12/17 at 13:00 Morphine Sulfate (morphine) 1 mg Q4H PRN IV PAIN LEVEL 7-10; Start 12/17/16 at 13:00 Pantoprazole 40 mg 40 mg DAILY@06 PO Last administered on 12/20/16 05:12; Admin Dose 40 MG; Start 12/18/16 at 06:00 Dextrose/Sodium Chloride (D5-1/2ns) 1,000 ml @ 100 mls/hr Q10H IV Last administered on 12/20/16 15:14; Admin Dose 100 MLS/HR; Start 12/17/16 at 17:00 Acetaminophen (Tylenol Tab) 500 mg Q4H PRN PO PAIN AND OR ELEVATED TEMP; Start 12/17/16 at 22:30 Albuterol (Ventolin Hfa) 2 puff Q4H PRN INH WHEEZING AND SOB; Start 12/17/16 at 22:30 Folic Acid (Folic Acid) 1 mg DAILY PO Last administered on 12/20/16 08:17; Admin Dose 1 MG; Start 12/18/16 at 09:00 Hydroxyzine Pamoate (Vistaril) 25 mg QHS PRN PO ITCHING; Start 12/17/16 at 22:30 Magnesium Chloride (Mag 64) 64 mg BID PO Last administered on 12/20/16 08:16; Admin Dose 64 MG; Start 12/17/16 at 23:30 Midodrine (Proamatine) 2.5 mg BID@,17 PRN PO SBP <90; Start 12/17/16 at 22:30 Famotidine (Pepcid) 20 mg Q24H PO Last administered on 12/19/16 22:42; Admin Dose 20 MG; Start 12/17/16 at 22:30 Potassium Chloride (Klor-Con 20) 20 meq DAILY PO Last administered on 12/20/16 08:17; Admin Dose 20 MEQ; Start 12/18/16 at 09:30 Mupirocin (Bactroban) 1 applic BID TOP Last administered on 12/20/16 08:19; Admin Dose 1 APPLIC; Start 12/19/16 at 21:00 ROHAN VELÁZQUEZ MD Dec 20, 2016 18:42
[2016-12-20 22:02] VITALS: BP 113/55; RESP 20
[2016-12-20] MEDS: FAMOTIDINE 20 MG TAB PO SCH (22:59)
[2016-12-21] MEDS: PANTOPRAZOLE (EC) 40 MG TAB PO SCH (05:36)
[2016-12-21 06:11] LABS: ADD SCAN DIFF NO
[2016-12-21 06:29] LABS: BASOPHIL # 0.1 10^3/ul (0.0-0.1); BASOPHILS % 0.7 % (0.0-2.0); EOSINOPHILS # 0.9 10^3/ul (0.0-0.5); EOSINOPHILS % 13.9 % (0.0-7.0); HEMATOCRIT 28.8 % (37.0-47.0); HEMOGLOBIN 9.5 g/dl (12.0-16.0); LYMPHOCYTES # 0.7 10^3/ul (0.8-2.9); LYMPHOCYTES % 10.1 % (15.0-51.0); MEAN CORPUSCULAR VOLUME 94.1 fl (82.0-101.0); MEAN PLATELET VOLUME 9.4 fl (7.4-10.4); MONOCYTE # 0.4 10^3/ul (0.3-0.9); MONOCYTES % 6.3 % (0.0-11.0); NEUTROPHIL # 4.6 10^3/ul (1.6-7.5); NEUTROPHILS % 68.7 % (39.0-77.0); PLATELET COUNT 309 10^3/UL (140-415); RED BLOOD COUNT 3.06 10^6/ul (4.20-5.40); RED CELL DISTRIBUTION WIDTH 12.3 % (11.5-14.5); WHITE BLOOD COUNT 6.7 10^3/ul (4.8-10.8)
[2016-12-21 07:30] LABS: CALCIUM 8.8 mg/dl (8.4-10.2); CREATININE 0.79 mg/dl (0.44-1.00); POTASSIUM 3.2 mmol/L (3.5-5.1)
[2016-12-21 07:54] VITALS: BP 90/53; RESP 19
[2016-12-21] MEDS: FOLIC ACID 1 MG TAB PO SCH (09:00)
[2016-12-21] MEDS: MAGNESIUM CHLORIDE (SR) 64 MG TAB PO SCH ×2 (09:00→20:25)
[2016-12-21] MEDS: MUPIROCIN 2% 22 GM OINT TOP SCH ×2 (09:00→20:25)
[2016-12-21] MEDS: POTASSIUM CHLORIDE (SR) 20 MEQ TAB PO SCH (09:00)
[2016-12-21] MEDS: DEXTROSE 5%-0.45% NACL 1,000 ML IV SCH ×2 (09:25→21:28)
--- NOTE | 2016-12-21 12:53 | PN ---
Date/Time of Note Date/Time of Note DATE: 12/21/16 TIME: 12:52 Assessment/Plan VTE Prophylaxis VTE Prophylaxis Intervention: other Lines/Catheters IV [facility] Type [facility] PC Urinary Cath still in place: No Assessment/Plan Chief Complaint/Hosp Course 1. Intractable nausea and vomiting. Dr. Mendez is following in gastroenterology consultation. 2. Acute kidney injury secondary to dehydration, resolving. Dr. Spain is following in nephrology consultation. Continue IV fluids monitor electrolytes. 3. Hirschsprung disease. 4. Ileostomy. Problems: Subjective 24 Hr Interval Summary Free Text/Dictation Patient has no complaints Exam/Review of Systems Vital Signs Vitals Vital Signs Date Time Temp Pulse Resp B/P Pulse Ox O2 Delivery O2 Flow Rate FiO2 12/21/16 07:54 98.0 60 19 90/53 97 12/19/16 16:11 Room Air Intake and Output 12/20/16 12/20/16 12/21/16 15:00 23:00 07:00 Intake Total 2500 ml 1570 ml Balance 2500 ml 1570 ml Exam Constitutional: well developed Head: atraumatic, normocephalic Neck: supple Respiratory: diminished breath sounds Cardiovascular: regular rate and rhythm Gastrointestinal: non-tender, soft Extremities: normal pulses Results Result Diagram: 12/21/16 0547 12/21/16 0547 Results 24 hrs Laboratory Tests Test 12/21/16 05:47 White Blood Count 6.7 # Red Blood Count 3.06 L Hemoglobin 9.5 L Hematocrit 28.8 L Mean Corpuscular Volume 94.1 Mean Corpuscular Hemoglobin 31.0 Mean Corpuscular Hemoglobin Concent 33.0 Red Cell Distribution Width 12.3 Platelet Count 309 Mean Platelet Volume 9.4 Neutrophils % 68.7 Lymphocytes % 10.1 L Monocytes % 6.3 Eosinophils % 13.9 H Basophils % 0.7 Nucleated Red Blood Cells % 0.0 Neutrophils # 4.6 Lymphocytes # 0.7 L Monocytes # 0.4 Eosinophils # 0.9 H Basophils # 0.1 Nucleated Red Blood Cells # 0.0 Sodium Level 141 Potassium Level 3.2 L Chloride Level 111 H Carbon Dioxide Level 21 Anion Gap 12 Blood Urea Nitrogen 16 Creatinine 0.79 Glucose Level 155 Calcium Level 8.8 Medications Medications Current Medications Ondansetron HCl (Zofran Inj) 4 mg Q6H PRN IV NAUSEA AND/OR VOMITING; Start 12/17 at 13:00 Morphine Sulfate (morphine) 1 mg Q4H PRN IV PAIN LEVEL 7-10; Start 12/17/16 at 13:00 Pantoprazole 40 mg 40 mg DAILY@06 PO Last administered on 12/21/16 05:36; Admin Dose 40 MG; Start 12/18/16 at 06:00 Dextrose/Sodium Chloride (D5-1/2ns) 1,000 ml @ 100 mls/hr Q10H IV Last administered on 12/21/16 09:25; Admin Dose 100 MLS/HR; Start 12/17/16 at 17:00 Acetaminophen (Tylenol Tab) 500 mg Q4H PRN PO PAIN AND OR ELEVATED TEMP; Start 12/17/16 at 22:30 Albuterol (Ventolin Hfa) 2 puff Q4H PRN INH WHEEZING AND SOB; Start 12/17/16 at 22:30 Folic Acid (Folic Acid) 1 mg DAILY PO Last administered on 12/21/16 09:00; Admin Dose 1 MG; Start 12/18/16 at 09:00 Hydroxyzine Pamoate (Vistaril) 25 mg QHS PRN PO ITCHING; Start 12/17/16 at 22:30 Magnesium Chloride (Mag 64) 64 mg BID PO Last administered on 12/21/16 09:00; Admin Dose 64 MG; Start 12/17/16 at 23:30 Midodrine (Proamatine) 2.5 mg BID@09,17 PRN PO SBP <90; Start 12/17/16 at 22:30 Famotidine (Pepcid) 20 mg Q24H PO Last administered on 12/20/16 22:59; Admin Dose 20 MG; Start 12/17/16 at 22:30 Potassium Chloride (Klor-Con 20) 20 meq DAILY PO Last administered on 09:00; Admin Dose 20 MEQ; Start 12/18/16 at 09:30 Mupirocin (Bactroban) 1 applic BID TOP Last administered on 12/21/16 09:00; Admin Dose 1 APPLIC; Start 12/19/16 at 21:00 GINGER MOSES Dec 21, 2016 12:53
--- NOTE | 2016-12-21 17:03 | CONS ---
DATE OF ADMISSION: 12/17/2016 DATE OF CONSULTATION: The patient admitted with nausea, vomiting. Currently she is not having any vomiting. She had an upper endoscopy which showed gastric ulcer. Pathology is pending. PHYSICAL EXAMINATION: GENERAL: The patient is alert, not in distress. VITAL SIGNS: Temperature 98, blood pressure is 90/53. CARDIOVASCULAR: Normal heart sounds. RESPIRATORY: Normal breath sounds. ABDOMEN: Shows soft abdomen with no palpable masses. The patient had a gastric biopsy done. Pathology report at this time is pending. CLINICAL IMPRESSION: Vomiting improved. The patient has a gastric ulcer. PLAN: Recommend wait for the pathology report. Meanwhile, continue Protonix and Reglan as needed. Dictated By: SELINA TY MD NC/NTS Conf#: [id number] DID#: [id number] CC: SELINA TY MD; CARLOS RODRIGUEZ MD;*EndCC*
--- NOTE | 2016-12-21 18:12 | CONS ---
Date/Time of Note Date/Time of Note DATE: 12/21/16 TIME: 18:04 Assessment/Plan Assessment/Plan Additional Assessment/Plan - Hypokalemia- K replaced, am BMP - Acute kidney injury secondary to severe prerenal azotemia secondary to nausea , vomiting and decreased p.o. intake. - Hyponatremia with a sodium of 128 secondary to hypovolemic hyponatremia- resolved - Hyperkalemia secondary to worsening acute kidney injury and renal failure- Hypokalemia now - Metabolic acidosis with bicarbonate of 16 secondary to increased ileostomy output. --MRSA Nares positive PLAN: Cr improved to normal Will follow up Further recommendations depend upon patient's clinical course. Plan of care johnny Spain /staff Consultation Date/Type/Reason Admit Date/Time Dec 17, 2016 at 08:55 Initial Consult Date Type of Consultation: NEPHROLOGY Referring Provider: CARLOS RODRIGUEZ MD 24 HR Interval Summary Free Text/Dictation nad, ambulated in hallway, denies any nausea/vomitting. afebrile, Hypokalemia- will replace K, am BMP,johnny staff Constitutional: requiring IVF Detailed Summary Respiratory: no complaints Cardiovascular: no complaints Gastrointestinal: no complaints Musculoskeletal: no complaints Exam/Review of Systems Vital Signs Vitals Vital Signs Date Time Temp Pulse Resp B/P Pulse Ox O2 Delivery O2 Flow Rate FiO2 12/21/16 07:54 98.0 60 19 90/53 97 12/19/16 16:11 Room Air Intake and Output 12/20/16 12/20/16 12/21/16 15:00 23:00 07:00 Intake Total 2500 ml 1570 ml Balance 2500 ml 1570 ml Exam Constitutional: alert, oriented Respiratory: clear to auscultation, normal air movement Cardiovascular: nl pulses, regular rate and rhythm Gastrointestinal: non-tender, other (ileostomy intact), soft Musculoskeletal: nl extremities to inspection Extremities: normal pulses 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: nl mental status, nl speech Skin: other Lymph: nontender Results Result Diagram: 12/21/16 0547 12/21/16 0547 Results 24 hrs Laboratory Tests Test 12/21/16 05:47 White Blood Count 6.7 # Red Blood Count 3.06 L Hemoglobin 9.5 L Hematocrit 28.8 L Mean Corpuscular Volume 94.1 Mean Corpuscular Hemoglobin 31.0 Mean Corpuscular Hemoglobin Concent 33.0 Red Cell Distribution Width 12.3 Platelet Count 309 Mean Platelet Volume 9.4 Neutrophils % 68.7 Lymphocytes % 10.1 L Monocytes % 6.3 Eosinophils % 13.9 H Basophils % 0.7 Nucleated Red Blood Cells % 0.0 Neutrophils # 4.6 Lymphocytes # 0.7 L Monocytes # 0.4 Eosinophils # 0.9 H Basophils # 0.1 Nucleated Red Blood Cells # 0.0 Sodium Level 141 Potassium Level 3.2 L Chloride Level 111 H Carbon Dioxide Level 21 Anion Gap 12 Blood Urea Nitrogen 16 Creatinine 0.79 Glucose Level 155 Calcium Level 8.8 Medications Medications Current Medications Ondansetron HCl (Zofran Inj) 4 mg Q6H PRN IV NAUSEA AND/OR VOMITING; Start 12/17 at 13:00 Morphine Sulfate (morphine) 1 mg Q4H PRN IV PAIN LEVEL 7-10; Start 12/17/16 at 13:00 Pantoprazole 40 mg 40 mg DAILY@06 PO Last administered on 12/21/16 05:36; Admin Dose 40 MG; Start 12/18/16 at 06:00 Dextrose/Sodium Chloride (D5-1/2ns) 1,000 ml @ 100 mls/hr Q10H IV Last administered on 12/21/16 09:25; Admin Dose 100 MLS/HR; Start 12/17/16 at 17:00 Acetaminophen (Tylenol Tab) 500 mg Q4H PRN PO PAIN AND OR ELEVATED TEMP; Start 12/17/16 at 22:30 Albuterol (Ventolin Hfa) 2 puff Q4H PRN INH WHEEZING AND SOB; Start 12/17/16 at 22:30 Folic Acid (Folic Acid) 1 mg DAILY PO Last administered on 12/21/16 09:00; Admin Dose 1 MG; Start 12/18/16 at 09:00 Hydroxyzine Pamoate (Vistaril) 25 mg QHS PRN PO ITCHING; Start 12/17/16 at 22:30 Magnesium Chloride (Mag 64) 64 mg BID PO Last administered on 12/21/16 09:00; Admin Dose 64 MG; Start 12/17/16 at 23:30 Midodrine (Proamatine) 2.5 mg BID@ PRN PO SBP <90; Start 12/17/16 at 22:30 Famotidine (Pepcid) 20 mg Q24H PO Last administered on 12/20/16 22:59; Admin Dose 20 MG; Start 12/17/16 at 22:30 Potassium Chloride (Klor-Con 20) 20 meq DAILY PO Last administered on 09:00; Admin Dose 20 MEQ; Start 12/18/16 at 09:30 Mupirocin (Bactroban) 1 applic BID TOP Last administered on 12/21/16 09:00; Admin Dose 1 APPLIC; Start 12/19/16 at 21:00 DEVENDRA GOMES Dec 21, 2016 18:12
[2016-12-21] MEDS ORDERED: POTASSIUM CHLORIDE (SR) 20 MEQ TAB PO STA (18:29)
[2016-12-21 21:27] VITALS: BP 109/69; RESP 20
[2016-12-21] MEDS: FAMOTIDINE 20 MG TAB PO SCH (21:28)
[2016-12-22] MEDS: PANTOPRAZOLE (EC) 40 MG TAB PO SCH (05:25)
[2016-12-22 05:56] LABS: ADD SCAN DIFF NO
[2016-12-22 06:16] LABS: BASOPHIL # 0.1 10^3/ul (0.0-0.1); BASOPHILS % 0.3 % (0.0-2.0); EOSINOPHILS % 4.8 % (0.0-7.0); HEMATOCRIT 31.6 % (37.0-47.0); HEMOGLOBIN 11.1 g/dl (12.0-16.0); LYMPHOCYTES # 0.8 10^3/ul (0.8-2.9); LYMPHOCYTES % 4.1 % (15.0-51.0); MEAN CORPUSCULAR HEMOGLOBIN 32.3 pg (29.0-33.0); MEAN CORPUSCULAR HGB CONC 35.1 g/dl (32.0-37.0); MEAN CORPUSCULAR VOLUME 91.9 fl (82.0-101.0); MEAN PLATELET VOLUME 9.5 fl (7.4-10.4); MONOCYTE # 0.7 10^3/ul (0.3-0.9); MONOCYTES % 3.5 % (0.0-11.0); NEUTROPHIL # 17.3 10^3/ul (1.6-7.5); NEUTROPHILS % 86.7 % (39.0-77.0); PLATELET COUNT 408 10^3/UL (140-415); RED BLOOD COUNT 3.44 10^6/ul (4.20-5.40); RED CELL DISTRIBUTION WIDTH 12.3 % (11.5-14.5)
[2016-12-22 06:32] LABS: CALCIUM 10.2 mg/dl (8.4-10.2); CREATININE 0.81 mg/dl (0.44-1.00); POTASSIUM 4.3 mmol/L (3.5-5.1)
[2016-12-22 07:40] VITALS: BP 103/57; RESP 20
[2016-12-22] MEDS: DEXTROSE 5%-0.45% NACL 1,000 ML IV SCH ×3 (08:14→18:53)
[2016-12-22] MEDS: MAGNESIUM CHLORIDE (SR) 64 MG TAB PO SCH ×2 (08:15→21:06)
[2016-12-22] MEDS: POTASSIUM CHLORIDE (SR) 20 MEQ TAB PO SCH (08:15)
[2016-12-22] MEDS: FOLIC ACID 1 MG TAB PO SCH (08:15)
[2016-12-22] MEDS: MUPIROCIN 2% 22 GM OINT TOP SCH ×2 (08:15→21:06)
--- NOTE | 2016-12-22 12:02 | PN ---
Date/Time of Note Date/Time of Note DATE: 12/22/16 TIME: 12:01 Assessment/Plan VTE Prophylaxis VTE Prophylaxis Intervention: other Lines/Catheters IV [facility] Type [facility]from [facility] portacath Urinary Cath still in place: No Assessment/Plan Chief Complaint/Hosp Course 1. Intractable nausea and vomiting. Dr. Mendez is following in gastroenterology consultation. 2. Acute kidney injury secondary to dehydration, resolving. Dr. Spain is following in nephrology consultation. Continue IV fluids monitor electrolytes. 3. Hirschsprung disease. 4. Ileostomy. Problems: Subjective 24 Hr Interval Summary Free Text/Dictation Patient feels ok Exam/Review of Systems Vital Signs Vitals Vital Signs Date Time Temp Pulse Resp B/P Pulse Ox O2 Delivery O2 Flow Rate FiO2 12/22/16 07:40 97.4 86 20 103/57 98 12/19/16 16:11 Room Air Intake and Output 12/21/16 12/21/16 12/22/16 15:00 23:00 07:00 Intake Total 400 ml 2900 ml 1590 ml Output Total 1050 ml Balance 400 ml 1850 ml 1590 ml Exam Constitutional: well developed Head: atraumatic, normocephalic Neck: supple Respiratory: clear to auscultation Cardiovascular: regular rate and rhythm Gastrointestinal: non-tender, soft Extremities: normal pulses Results Result Diagram: 12/22/16 0455 12/22/16 0455 Results 24 hrs Laboratory Tests Test 12/22/16 04:55 White Blood Count 20.0 #H Red Blood Count 3.44 L Hemoglobin 11.1 L Hematocrit 31.6 L Mean Corpuscular Volume 91.9 Mean Corpuscular Hemoglobin 32.3 Mean Corpuscular Hemoglobin Concent 35.1 Red Cell Distribution Width 12.3 Platelet Count 408 # Mean Platelet Volume 9.5 Neutrophils % 86.7 H Lymphocytes % 4.1 L Monocytes % 3.5 Eosinophils % 4.8 Basophils % 0.3 Nucleated Red Blood Cells % 0.0 Neutrophils # 17.3 H Lymphocytes # 0.8 Monocytes # 0.7 Eosinophils # 1.0 H Basophils # 0.1 Nucleated Red Blood Cells # 0.0 Sodium Level 140 Potassium Level 4.3 Chloride Level 107 Carbon Dioxide Level 24 Anion Gap 13 Blood Urea Nitrogen 19 Creatinine 0.81 Glucose Level 88 # Calcium Level 10.2 Medications Medications Current Medications Ondansetron HCl (Zofran Inj) 4 mg Q6H PRN IV NAUSEA AND/OR VOMITING; Start 12/17 at 13:00 Morphine Sulfate (morphine) 1 mg Q4H PRN IV PAIN LEVEL 7-10; Start 12/17/16 at 13:00 Pantoprazole 40 mg 40 mg DAILY@06 PO Last administered on 12/22/16 05:25; Admin Dose 40 MG; Start 12/18/16 at 06:00 Dextrose/Sodium Chloride (D5-1/2ns) 1,000 ml @ 100 mls/hr Q10H IV Last administered on 12/22/16 08:14; Admin Dose 100 MLS/HR; Start 12/17/16 at 17:00 Acetaminophen (Tylenol Tab) 500 mg Q4H PRN PO PAIN AND OR ELEVATED TEMP; Start 12/17/16 at 22:30 Albuterol (Ventolin Hfa) 2 puff Q4H PRN INH WHEEZING AND SOB; Start 12/17/16 at 22:30 Folic Acid (Folic Acid) 1 mg DAILY PO Last administered on 12/22/16 08:15; Admin Dose 1 MG; Start 12/18/16 at 09:00 Hydroxyzine Pamoate (Vistaril) 25 mg QHS PRN PO ITCHING; Start 12/17/16 at 22:30 Magnesium Chloride (Mag 64) 64 mg BID PO Last administered on 12/22/16 08:15; Admin Dose 64 MG; Start 12/17/16 at 23:30 Midodrine (Proamatine) 2.5 mg BID@,17 PRN PO SBP <90; Start 12/17/16 at 22:30 Famotidine (Pepcid) 20 mg Q24H PO Last administered on 12/21/16 21:28; Admin Dose 20 MG; Start 12/17/16 at 22:30 Potassium Chloride (Klor-Con 20) 20 meq DAILY PO Last administered on 08:15; Admin Dose 20 MEQ; Start 12/18/16 at 09:30 Mupirocin (Bactroban) 1 applic BID TOP Last administered on 12/22/16 08:15; Admin Dose 1 APPLIC; Start 12/19/16 at 21:00 GINGER MOSES Dec 22, 2016 12:02
--- NOTE | 2016-12-22 12:10 | CONS ---
Date/Time of Note Date/Time of Note DATE: 12/22/16 TIME: 12:07 Assessment/Plan Assessment/Plan Additional Assessment/Plan - Leukocytosis- possible stress reaction, afebrile. MIKKI Prasad as well- no new orders. - monitor CBC am - Hypokalemia- resolved - Acute kidney injury secondary to severe prerenal azotemia secondary to nausea , vomiting and decreased p.o. intake. - Hyponatremia with a sodium of 128 secondary to hypovolemic hyponatremia- resolved - Hyperkalemia secondary to worsening acute kidney injury and renal failure- resolved - Metabolic acidosis with bicarbonate of 16 secondary to increased ileostomy output. --MRSA Nares positive- om Bactroban PLAN: Cr improved to normal Will follow up Further recommendations depend upon patient's clinical course. Plan of care mikki Spain /staff Consultation Date/Type/Reason Admit Date/Time Dec 17, 2016 at 08:55 Type of Consultation: NEPHROLOGY Referring Provider: CARLOS RODRIGUEZ MD 24 HR Interval Summary Free Text/Dictation resting, leukocytosis, afebrile, denies any complaints, will cont to monitor CBC , dw staff Constitutional: requiring IVF Exam/Review of Systems Vital Signs Vitals Vital Signs Date Time Temp Pulse Resp B/P Pulse Ox O2 Delivery O2 Flow Rate FiO2 12/22/16 07:40 97.4 86 20 103/57 98 12/19/16 16:11 Room Air Intake and Output 12/21/16 12/21/16 12/22/16 15:00 23:00 07:00 Intake Total 400 ml 2900 ml 1590 ml Output Total 1050 ml Balance 400 ml 1850 ml 1590 ml Exam Constitutional: alert, oriented Neck: non-tender Respiratory: clear to auscultation, normal air movement Cardiovascular: nl pulses, regular rate and rhythm Gastrointestinal: non-tender, soft Musculoskeletal: nl extremities to inspection Extremities: normal pulses 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: nl mental status, nl speech Lymph: nontender Results Result Diagram: 12/22/16 0455 12/22/16 0455 Results 24 hrs Laboratory Tests Test 12/22/16 04:55 White Blood Count 20.0 #H Red Blood Count 3.44 L Hemoglobin 11.1 L Hematocrit 31.6 L Mean Corpuscular Volume 91.9 Mean Corpuscular Hemoglobin 32.3 Mean Corpuscular Hemoglobin Concent 35.1 Red Cell Distribution Width 12.3 Platelet Count 408 # Mean Platelet Volume 9.5 Neutrophils % 86.7 H Lymphocytes % 4.1 L Monocytes % 3.5 Eosinophils % 4.8 Basophils % 0.3 Nucleated Red Blood Cells % 0.0 Neutrophils # 17.3 H Lymphocytes # 0.8 Monocytes # 0.7 Eosinophils # 1.0 H Basophils # 0.1 Nucleated Red Blood Cells # 0.0 Sodium Level 140 Potassium Level 4.3 Chloride Level 107 Carbon Dioxide Level 24 Anion Gap 13 Blood Urea Nitrogen 19 Creatinine 0.81 Glucose Level 88 # Calcium Level 10.2 Medications Medications Current Medications Ondansetron HCl (Zofran Inj) 4 mg Q6H PRN IV NAUSEA AND/OR VOMITING; Start 12/17 at 13:00 Morphine Sulfate (morphine) 1 mg Q4H PRN IV PAIN LEVEL 7-10; Start 12/17/16 at 13:00 Pantoprazole 40 mg 40 mg DAILY@06 PO Last administered on 12/22/16 05:25; Admin Dose 40 MG; Start 12/18/16 at 06:00 Dextrose/Sodium Chloride (D5-1/2ns) 1,000 ml @ 100 mls/hr Q10H IV Last administered on 12/22/16 08:14; Admin Dose 100 MLS/HR; Start 12/17/16 at 17:00 Acetaminophen (Tylenol Tab) 500 mg Q4H PRN PO PAIN AND OR ELEVATED TEMP; Start 12/17/16 at 22:30 Albuterol (Ventolin Hfa) 2 puff Q4H PRN INH WHEEZING AND SOB; Start 12/17/16 at 22:30 Folic Acid (Folic Acid) 1 mg DAILY PO Last administered on 12/22/16 08:15; Admin Dose 1 MG; Start 12/18/16 at 09:00 Hydroxyzine Pamoate (Vistaril) 25 mg QHS PRN PO ITCHING; Start 12/17/16 at 22:30 Magnesium Chloride (Mag 64) 64 mg BID PO Last administered on 12/22/16 08:15; Admin Dose 64 MG; Start 12/17/16 at 23:30 Midodrine (Proamatine) 2.5 mg BID@,17 PRN PO SBP <90; Start 12/17/16 at 22:30 Famotidine (Pepcid) 20 mg Q24H PO Last administered on 12/21/16 21:28; Admin Dose 20 MG; Start 12/17/16 at 22:30 Potassium Chloride (Klor-Con 20) 20 meq DAILY PO Last administered on 08:15; Admin Dose 20 MEQ; Start 12/18/16 at 09:30 Mupirocin (Bactroban) 1 applic BID TOP Last administered on 12/22/16 08:15; Admin Dose 1 APPLIC; Start 12/19/16 at 21:00 DEVENDRA GOMES Dec 22, 2016 12:10
[2016-12-22 14:18] LABS: CALCIUM 11.8 mg/dl (8.4-10.2); CREATININE 0.93 mg/dl (0.44-1.00); POTASSIUM 4.1 mmol/L (3.5-5.1)
[2016-12-22 19:55] VITALS: BP 90/62; RESP 18
[2016-12-22] MEDS: ONDANSETRON 4 MG INJ IV PRN (21:10)
[2016-12-22 21:22] VITALS: BP 109/63; PULSE 134; RESP 18
[2016-12-22 21:50] VITALS: BP 117/59; PULSE 145; RESP 18
[2016-12-22] MEDS: FAMOTIDINE 20 MG TAB PO SCH (22:05)
[2016-12-22 22:54] VITALS: BP 99/62; PULSE 136; RESP 18
[2016-12-22 23:03] VITALS: PULSE 154
[2016-12-23] VITALS (14 sets, daily range): BP systolic 90–146; BP diastolic 56–67; PULSE 113–164; RESP 18–20
[2016-12-23] MEDS: DEXTROSE 5%-0.45% NACL 1,000 ML IV SCH ×3 (03:00→13:00)
[2016-12-23] MEDS: PANTOPRAZOLE (EC) 40 MG TAB PO SCH (05:36)
--- NOTE | 2016-12-23 07:41 | PN ---
DATE: 12/22/2016 CHIEF COMPLAINT: At this time, the patient says that she has got abdominal distention. PHYSICAL EXAMINATION: ABDOMEN: Soft. Colostomy, which is actually ileostomy is working normal. LABORATORY DATA: Shows a white count is 20,000; however, she has no cough, no nausea, no vomiting a t this time. Upper endoscopy showed evidence of gastric ulcer. PLAN: At this time, continue proton pump inhibitor therapy. Continue Simethicone and wait for the results of the gastric ulcer biopsy pathology. Dictated By: SELINA ALVARADO/CRISTINA Conf#: [id number] DID#: [id number]
[2016-12-23] MEDS: MUPIROCIN 2% 22 GM OINT TOP SCH ×2 (09:00→21:58)
[2016-12-23] MEDS: MAGNESIUM CHLORIDE (SR) 64 MG TAB PO SCH ×2 (09:00→21:53)
[2016-12-23 09:38] LABS: ADD SCAN DIFF NO
[2016-12-23 09:40] LABS: BASOPHIL # 0.1 10^3/ul (0.0-0.1); BASOPHILS % 0.5 % (0.0-2.0); EOSINOPHILS # 0.4 10^3/ul (0.0-0.5); HEMATOCRIT 35.1 % (37.0-47.0); HEMOGLOBIN 11.6 g/dl (12.0-16.0); LYMPHOCYTES # 0.9 10^3/ul (0.8-2.9); LYMPHOCYTES % 6.8 % (15.0-51.0); MEAN CORPUSCULAR VOLUME 93.9 fl (82.0-101.0); MEAN PLATELET VOLUME 9.3 fl (7.4-10.4); MONOCYTE # 0.6 10^3/ul (0.3-0.9); MONOCYTES % 4.3 % (0.0-11.0); NEUTROPHIL # 10.9 10^3/ul (1.6-7.5); NEUTROPHILS % 84.8 % (39.0-77.0); PLATELET COUNT 413 10^3/UL (140-415); RED BLOOD COUNT 3.74 10^6/ul (4.20-5.40); RED CELL DISTRIBUTION WIDTH 12.9 % (11.5-14.5); WHITE BLOOD COUNT 12.9 10^3/ul (4.8-10.8)
[2016-12-23] MEDS: POTASSIUM CHLORIDE (SR) 20 MEQ TAB PO SCH (10:41)
[2016-12-23] MEDS: FOLIC ACID 1 MG TAB PO SCH (10:41)
--- NOTE | 2016-12-23 14:02 | RADRPT ---
Vent Rate: 136 bpm RR Interval: 0 msec OH Interval: 130 msec QRS Duration: 60 msec QT Interval: 258 msec QTC Interval: 388 msec P-R-T Jackson: 78 - 104 - 77 degrees Sinus tachycardia Right atrial enlargement Rightward axis Borderline ECG Electronically Signed By: Marcelino Waggoner [id number]
--- NOTE | 2016-12-23 16:58 | CONS ---
Date/Time of Note Date/Time of Note DATE: 12/23/16 TIME: 16:57 Assessment/Plan Assessment/Plan Additional Assessment/Plan 1. Acute kidney injury secondary to severe prerenal azotemia secondary to nausea, vomiting and decreased p.o. intake. 2. Hyponatremia with a sodium of 128 secondary to hypovolemic hyponatremia. 4. Hyperkalemia secondary to worsening acute kidney injury and renal failure. 5. Metabolic acidosis with bicarbonate of 16 secondary to increased ileostomy output. PLAN: Cr improved to normal d/c IV Fluids Electrolytes table ok to d/c from renal point of view Consultation Date/Type/Reason Admit Date/Time Dec 17, 2016 at 08:55 Initial Consult Date Dec Type of Consultation: NEPHROLOGY Referring Provider: CARLOS RODRIGUEZ MD 24 HR Interval Summary Free Text/Dictation Cr normal, Electrolytes stable, pt toleratign po diet well Exam/Review of Systems Vital Signs Vitals Vital Signs Date Time Temp Pulse Resp B/P Pulse Ox O2 Delivery O2 Flow Rate FiO2 12/23/16 16:40 119 12/23/16 16:13 98.5 20 90/66 100 12/22/16 22:54 Room Air Intake and Output 12/22/16 12/22/16 12/23/16 15:00 23:00 07:00 Intake Total 300 ml 2240 ml 1510 ml Output Total 800 ml 1250 ml Balance 300 ml 1440 ml 260 ml Exam GENERAL: Awake, alert, in no distress. HEENT: Normal. Oropharynx clear. Dry mucous membranes. NECK: Supple, no JVD, no lymphadenopathy. LUNGS: Decreased breath sounds at both lung bases. HEART: S1, S2, with regular rhythm, no murmur. ABDOMEN: Soft, tender to palpation in the ileostomy site. No rebound, no guarding. Bowel sounds are present. EXTREMITIES: No clubbing, cyanosis, or edema. NEUROLOGICAL: Nonfocal, intact. PSYCHIATRIC: Appropriate affect and mood. Results Result Diagram: 12/23/16 0925 12/22/16 1345 Results 24 hrs Laboratory Tests Test 12/23/16 09:25 White Blood Count 12.9 #H Red Blood Count 3.74 L Hemoglobin 11.6 L Hematocrit 35.1 L Mean Corpuscular Volume 93.9 Mean Corpuscular Hemoglobin 31.0 Mean Corpuscular Hemoglobin Concent 33.0 Red Cell Distribution Width 12.9 Platelet Count 413 Mean Platelet Volume 9.3 Neutrophils % 84.8 H Lymphocytes % 6.8 L Monocytes % 4.3 Eosinophils % 3.0 Basophils % 0.5 Nucleated Red Blood Cells % 0.0 Neutrophils # 10.9 H Lymphocytes # 0.9 Monocytes # 0.6 Eosinophils # 0.4 Basophils # 0.1 Nucleated Red Blood Cells # 0.0 Medications Medications Current Medications Ondansetron HCl (Zofran Inj) 4 mg Q6H PRN IV NAUSEA AND/OR VOMITING Last administered on 12/22/16 21:10; Admin Dose 4 MG; Start 12/17/16 at 13:00 Morphine Sulfate (morphine) 1 mg Q4H PRN IV PAIN LEVEL 7-10; Start 12/17/16 at 13:00 Pantoprazole 40 mg 40 mg DAILY@06 PO Last administered on 12/23/16 05:36; Admin Dose 40 MG; Start 12/18/16 at 06:00 Dextrose/Sodium Chloride (D5-1/2ns) 1,000 ml @ 100 mls/hr Q10H IV Last administered on 12/23/16 07:26; Admin Dose 100 MLS/HR; Start 12/17/16 at 17:00 Acetaminophen (Tylenol Tab) 500 mg Q4H PRN PO PAIN AND OR ELEVATED TEMP; Start 12/17/16 at 22:30 Albuterol (Ventolin Hfa) 2 puff Q4H PRN INH WHEEZING AND SOB; Start 12/17/16 at 22:30 Folic Acid (Folic Acid) 1 mg DAILY PO Last administered on 12/23/16 10:41; Admin Dose 1 MG; Start 12/18/16 at 09:00 Hydroxyzine Pamoate (Vistaril) 25 mg QHS PRN PO ITCHING; Start 12/17/16 at 22:30 Magnesium Chloride (Mag 64) 64 mg BID PO Last administered on 12/22/16 21:06; Admin Dose 64 MG; Start 12/17/16 at 23:30 Midodrine (Proamatine) 2.5 mg BID@,17 PRN PO SBP <90; Start 12/17/16 at 22:30 Famotidine (Pepcid) 20 mg Q24H PO Last administered on 12/22/16 22:05; Admin Dose 20 MG; Start 12/17/16 at 22:30 Potassium Chloride (Klor-Con 20) 20 meq DAILY PO Last administered on 10:41; Admin Dose 20 MEQ; Start 12/18/16 at 09:30 Mupirocin (Bactroban) 1 applic BID TOP Last administered on 12/23/16 09:00; Admin Dose 1 APPLIC; Start 12/19/16 at 21:00 Simethicone (Mylicon) 80 mg BID PRN PO DISTENSION/GAS/BLOATING Last administered on 12/22/16 21:06; Admin Dose 80 MG; Start 12/22/16 at 14:00 ROHAN VELÁZQUEZ MD Dec 23, 2016 16:58
--- NOTE | 2016-12-23 17:19 | PN ---
Date/Time of Note Date/Time of Note DATE: 12/23/16 TIME: 17:17 Assessment/Plan VTE Prophylaxis VTE Prophylaxis Intervention: SCD's Lines/Catheters IV [facility] PORT A CATH Urinary Cath still in place: No Assessment/Plan Chief Complaint/Hosp Course Patient with increased leukocytosis, will obtain cultures and chest x-ray. Patient denies any nausea vomiting. ASSESSMENT AND PLAN: 1. Intractable nausea and vomiting. Dr. Mendez is following in gastroenterology consultation. 2. Acute kidney injury secondary to dehydration, resolving. Dr. Spain is following in nephrology consultation. Continue IV fluids monitor electrolytes. 3. Hirschsprung disease. 4. Ileostomy. Further recommendations based on clinical course. Plan of care discussed with Dr. Paez. Problems: Exam/Review of Systems Vital Signs Vitals Vital Signs Date Time Temp Pulse Resp B/P Pulse Ox O2 Delivery O2 Flow Rate FiO2 12/23/16 16:40 119 12/23/16 16:13 98.5 20 90/66 100 12/22/16 22:54 Room Air Intake and Output 12/22/16 12/22/16 12/23/16 15:00 23:00 07:00 Intake Total 300 ml 2240 ml 1510 ml Output Total 800 ml 1250 ml Balance 300 ml 1440 ml 260 ml Exam Constitutional: alert, oriented Head: normocephalic Neck: supple Respiratory: normal air movement Cardiovascular: nl pulses Gastrointestinal: non-tender, other (Ileostomy), soft Musculoskeletal: nl gait and stance Extremities: normal pulses 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: [employer]REARMS II-XII intact Additional Comments Right chest Port-A-Cath Results Result Diagram: 12/23/16 0925 12/22/16 1345 Results 24 hrs Laboratory Tests Test 12/23/16 09:25 White Blood Count 12.9 #H Red Blood Count 3.74 L Hemoglobin 11.6 L Hematocrit 35.1 L Mean Corpuscular Volume 93.9 Mean Corpuscular Hemoglobin 31.0 Mean Corpuscular Hemoglobin Concent 33.0 Red Cell Distribution Width 12.9 Platelet Count 413 Mean Platelet Volume 9.3 Neutrophils % 84.8 H Lymphocytes % 6.8 L Monocytes % 4.3 Eosinophils % 3.0 Basophils % 0.5 Nucleated Red Blood Cells % 0.0 Neutrophils # 10.9 H Lymphocytes # 0.9 Monocytes # 0.6 Eosinophils # 0.4 Basophils # 0.1 Nucleated Red Blood Cells # 0.0 Medications Medications Current Medications Ondansetron HCl (Zofran Inj) 4 mg Q6H PRN IV NAUSEA AND/OR VOMITING Last administered on 12/22/16 21:10; Admin Dose 4 MG; Start 12/17/16 at 13:00 Morphine Sulfate (morphine) 1 mg Q4H PRN IV PAIN LEVEL 7-10; Start 12/17/16 at 13:00 Pantoprazole (Protonix Tab) 40 mg DAILY@06 PO Last administered on 12/23/16 05 :36; Admin Dose 40 MG; Start 12/18/16 at 06:00 Acetaminophen (Tylenol Tab) 500 mg Q4H PRN PO PAIN AND OR ELEVATED TEMP; Start 12/17/16 at 22:30 Albuterol (Ventolin Hfa) 2 puff Q4H PRN INH WHEEZING AND SOB; Start 12/17/16 at 22:30 Folic Acid (Folic Acid) 1 mg DAILY PO Last administered on 12/23/16 10:41; Admin Dose 1 MG; Start 12/18/16 at 09:00 Hydroxyzine Pamoate (Vistaril) 25 mg QHS PRN PO ITCHING; Start 12/17/16 at 22:30 Magnesium Chloride (Mag 64) 64 mg BID PO Last administered on 12/22/16 21:06; Admin Dose 64 MG; Start 12/17/16 at 23:30 Midodrine (Proamatine) 2.5 mg BID@ PRN PO SBP <90; Start 12/17/16 at 22:30 Famotidine (Pepcid) 20 mg Q24H PO Last administered on 12/22/16 22:05; Admin Dose 20 MG; Start 12/17/16 at 22:30 Potassium Chloride (Klor-Con 20) 20 meq DAILY PO Last administered on 10:41; Admin Dose 20 MEQ; Start 12/18/16 at 09:30 Mupirocin (Bactroban) 1 applic BID TOP Last administered on 12/23/16 09:00; Admin Dose 1 APPLIC; Start 12/19/16 at 21:00 Simethicone (Mylicon) 80 mg BID PRN PO DISTENSION/GAS/BLOATING Last administered on 6/11/17at 21:06; Admin Dose 80 MG; Start 12/22/16 at 14:00 ROMI ESPINO Dec 23, 2016 17:19
[2016-12-23] MEDS: FAMOTIDINE 20 MG TAB PO SCH (21:53)
[2016-12-23] MEDS: hydrOXYzine PAMOATE 25 MG CAP PO PRN (23:33)
[2016-12-24] VITALS (11 sets, daily range): BP systolic 92–114; BP diastolic 52–70; PULSE 113–136; RESP 14–21
--- NOTE | 2016-12-24 01:43 | RADRPT ---
PROCEDURE: XR Chest. CLINICAL INDICATION: Pneumonia. TECHNIQUE: Single frontal view of the chest. COMPARISON: 09/09/2016. FINDINGS: Right central port in place, and this is new over interval. Tip is in the superior vena cava right atrial junction versus proximal right atrium. The lungs are clear. Cardiac silhouette is unremarka ble. No signs of pleural fluid or pneumothorax are seen. The osseous structures and soft tissues are unremarkable. IMPRESSION: 1. New right central venous port in place with tip in the superior vena cava right atrial junction versus proximal right atrium. 2. No evident pneumonia. RPTAT: [facility] Physician Annamaria Date Time Electronically viewed and signed by Physician Annamaria on 12/24/2016 01:42 RS/
[2016-12-24] MEDS: PANTOPRAZOLE (EC) 40 MG TAB PO SCH (05:00)
[2016-12-24] MEDS: FOLIC ACID 1 MG TAB PO SCH (08:20)
[2016-12-24] MEDS: MAGNESIUM CHLORIDE (SR) 64 MG TAB PO SCH ×2 (08:20→21:11)
[2016-12-24] MEDS: POTASSIUM CHLORIDE (SR) 20 MEQ TAB PO SCH ×2 (08:21→11:47)
[2016-12-24] MEDS: MUPIROCIN 2% 22 GM OINT TOP SCH ×2 (08:22→21:14)
[2016-12-24 11:08] LABS: ADD SCAN DIFF NO
[2016-12-24 11:10] LABS: BASOPHIL # 0.1 10^3/ul (0.0-0.1); BASOPHILS % 0.9 % (0.0-2.0); EOSINOPHILS # 0.7 10^3/ul (0.0-0.5); EOSINOPHILS % 7.9 % (0.0-7.0); HEMATOCRIT 38.9 % (37.0-47.0); HEMOGLOBIN 13.5 g/dl (12.0-16.0); LYMPHOCYTES % 10.5 % (15.0-51.0); MEAN CORPUSCULAR HEMOGLOBIN 31.6 pg (29.0-33.0); MEAN CORPUSCULAR HGB CONC 34.7 g/dl (32.0-37.0); MEAN CORPUSCULAR VOLUME 91.1 fl (82.0-101.0); MEAN PLATELET VOLUME 9.6 fl (7.4-10.4); MONOCYTE # 0.7 10^3/ul (0.3-0.9); MONOCYTES % 7.3 % (0.0-11.0); NEUTROPHIL # 6.6 10^3/ul (1.6-7.5); NEUTROPHILS % 72.3 % (39.0-77.0); PLATELET COUNT 511 10^3/UL (140-415); RED BLOOD COUNT 4.27 10^6/ul (4.20-5.40); RED CELL DISTRIBUTION WIDTH 12.9 % (11.5-14.5); WHITE BLOOD COUNT 9.2 10^3/ul (4.8-10.8)
[2016-12-24 11:40] LABS: ALBUMIN 5.3 g/dl (3.3-4.9); ALBUMIN/GLOBULIN RATIO 0.98; CALCIUM 10.9 mg/dl (8.4-10.2); CREATININE 1.47 mg/dl (0.44-1.00); TOTAL PROTEIN 10.7 g/dl (6.1-8.1)
[2016-12-24] MEDS ORDERED: NA POLYST SULFON 15 GM/60 ML BTL PO ONE (12:00)
[2016-12-24 12:41] LABS: AADO2 Arterial 8.8 mmHg (7.0-24.0); Allen Test ACCEPTAB; Arterial Base Excess -13.8 mmol/L (-3.0-3); Arterial COHb 0 % (0.0-3.0); Arterial Fraction of Oxyhgb 97.6 % (93.0-99.0); Arterial HCO3 10.8 mmol/L (22.0-26.0); Arterial MetHb 0.5 % (0.0-1.5); Arterial Total Hemglobin 14.5 g/dl (12.0-18.0); MODE ROOM AIR
[2016-12-24 14:23] LABS: THYROID STIMULATING HORMONE 2.29 MIU/L (0.465-4.680)
--- NOTE | 2016-12-24 18:48 | PN ---
Date/Time of Note Date/Time of Note DATE: 12/24/16 TIME: 18:42 Assessment/Plan VTE Prophylaxis VTE Prophylaxis Intervention: SCD's Lines/Catheters IV Catheter Type (from [facility]): Port a cath Urinary Cath still in place: No Assessment/Plan Chief Complaint/Hosp Course Patient has an elevated potassium of 6 status post Kayexalate. Continues to be tachycardic, afebrile. Patient denies any nausea vomiting. ASSESSMENT AND PLAN: 1. Intractable nausea and vomiting, resolved. Dr. Mendez is following in gastroenterology consultation. 2. Acute kidney injury secondary to dehydration, resolving. Dr. Spain is following in nephrology consultation. Continue IV fluids monitor electrolytes. 3. Hirschsprung disease. 4. Ileostomy. Further recommendations based on clinical course. Plan of care discussed with Dr. Paez. Problems: Exam/Review of Systems Vital Signs Vitals Vital Signs Date Time Temp Pulse Resp B/P Pulse Ox O2 Delivery O2 Flow Rate FiO2 12/24/16 16:41 118 12/24/16 15:43 97.9 18 114/70 100 12/23/16 23:35 Room Air Intake and Output 12/23/16 12/23/16 12/24/16 15:00 23:00 07:00 Intake Total 300 ml 1430 ml Output Total 1200 ml Balance 300 ml 230 ml Exam Constitutional: alert, oriented Head: normocephalic Neck: supple Respiratory: normal air movement Cardiovascular: nl pulses Gastrointestinal: non-tender, other (Ileostomy), soft Musculoskeletal: nl gait and stance Extremities: normal pulses 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: CEO NA II-XII intact Additional Comments Right chest Port-A-Cath Results Result Diagram: 12/24/16 0740 12/24/16 1030 Results 24 hrs Laboratory Tests Test 12/24/16 07:40 12/24/16 10:30 12/24/16 11:56 White Blood Count 9.2 # Red Blood Count 4.27 Hemoglobin 13.5 Hematocrit 38.9 Mean Corpuscular Volume 91.1 Mean Corpuscular Hemoglobin 31.6 Mean Corpuscular Hemoglobin Concent 34.7 Red Cell Distribution Width 12.9 Platelet Count 511 #H Mean Platelet Volume 9.6 Neutrophils % 72.3 Lymphocytes % 10.5 L Monocytes % 7.3 Eosinophils % 7.9 H Basophils % 0.9 Nucleated Red Blood Cells % 0.0 Neutrophils # 6.6 Lymphocytes # 1.0 Monocytes # 0.7 Eosinophils # 0.7 H Basophils # 0.1 Nucleated Red Blood Cells # 0.0 Sodium Level 132 L Potassium Level 6.0 H Chloride Level 105 Carbon Dioxide Level 9 #*L Anion Gap 24 H Blood Urea Nitrogen 45 #H Creatinine 1.47 H Glucose Level 126 Calcium Level 10.9 H Total Bilirubin 0.0 L Direct Bilirubin 0.00 Indirect Bilirubin 0.0 Aspartate Amino Transf (AST/SGOT) 51 H Alanine Aminotransferase (ALT/SGPT) 53 Alkaline Phosphatase 111 Total Protein 10.7 H Albumin 5.3 H Globulin 5.40 H Albumin/Globulin Ratio 0.98 Thyroid Stimulating Hormone (TSH) 2.290 Thyroxine (T4) 9.0 Blood Gas Specimen Source Blood arterial Arterial Blood Date Drawn 12/24/2016 12:30:31 PM Arterial Blood pH (Temp corrected) 7.285 *L Arterial Blood pCO2 (Temp correct) 23.2 L Arterial Blood pO2 (Temp corrected) 113.1 H Arterial Blood HCO3 10.8 L Arterial Blood Base Excess -13.8 L Arterial Blood Oxygen Saturation 98.1 H Anmol Test ACCEPTAB Arterial Blood Gas Puncture Site Right Radial Arterial Blood Carboxyhemoglobin 0 Arterial Blood Methemoglobin 0.5 Blood Gas A-a O2 Differential 8.8 Oxyhemoglobin Percent 97.6 Total Hemoglobin 14.5 Blood Gas Temperature 37.0 Blood Gas Modality ROOM AIR FiO2 21.0 Blood Gas Critical Value Read Back Neri MORGAN RN Blood Gas Notified Whom NAFISAD Blood Gas Notified Time 12/24/2016 12:40:54 PM Medications Medications Current Medications Ondansetron HCl (Zofran Inj) 4 mg Q6H PRN IV NAUSEA AND/OR VOMITING Last administered on 12/22/16 21:10; Admin Dose 4 MG; Start 12/17/16 at 13:00 Morphine Sulfate (morphine) 1 mg Q4H PRN IV PAIN LEVEL 7-10; Start 12/17/16 at 13:00 Pantoprazole (Protonix Tab) 40 mg DAILY@06 PO Last administered on 12/24/16 05 :00; Admin Dose 40 MG; Start 12/18/16 at 06:00 Acetaminophen (Tylenol Tab) 500 mg Q4H PRN PO PAIN AND OR ELEVATED TEMP; Start 12/17/16 at 22:30 Albuterol (Ventolin Hfa) 2 puff Q4H PRN INH WHEEZING AND SOB; Start 12/17/16 at 22:30 Folic Acid (Folic Acid) 1 mg DAILY PO Last administered on 12/24/16 08:20; Admin Dose 1 MG; Start 12/18/16 at 09:00 Hydroxyzine Pamoate (Vistaril) 25 mg QHS PRN PO ITCHING Last administered on 23:33; Admin Dose 25 MG; Start 12/17/16 at 22:30 Magnesium Chloride (Mag 64) 64 mg BID PO Last administered on 12/24/16 08:20; Admin Dose 64 MG; Start 12/17/16 at 23:30 Midodrine (Proamatine) 2.5 mg BID@17 PRN PO SBP <90; Start 12/17/16 at 22:30 Famotidine (Pepcid) 20 mg Q24H PO Last administered on 12/23/16 21:53; Admin Dose 20 MG; Start 12/17/16 at 22:30 Mupirocin (Bactroban) 1 applic BID TOP Last administered on 12/24/16 08:22; Admin Dose 1 APPLIC; Start 12/19/16 at 21:00 Simethicone (Mylicon) 80 mg BID PRN PO DISTENSION/GAS/BLOATING Last administered on 12/22/16 21:06; Admin Dose 80 MG; Start 12/22/16 at 14:00 ROMI ESPINO Dec 24, 2016 18:48
[2016-12-24] MEDS ORDERED: SOD CHLORIDE 0.9% 250 ML IV ONE (19:00)
[2016-12-24] MEDS: FAMOTIDINE 20 MG TAB PO SCH (21:11)
--- NOTE | 2016-12-24 21:14 | CONS ---
Date/Time of Note Date/Time of Note DATE: 12/24/16 TIME: 21:12 Assessment/Plan Assessment/Plan Additional Assessment/Plan 1. Acute kidney injury secondary to severe prerenal azotemia secondary to nausea, vomiting and decreased p.o. intake. 2. Hyponatremia with a sodium of 128 secondary to hypovolemic hyponatremia. 4. Hyperkalemia secondary to worsening acute kidney injury and renal failure. 5. Metabolic acidosis with bicarbonate of 16 secondary to increased ileostomy output.- now becomes severe with PH low on ABG PLAN: D/c K supplement Start pt on D5W qwith 100 mEQ NaHCO3 to run at 100cc/hr BP stable afebrile Kayexalate given for hyperkalemia today AM will follow up Consultation Date/Type/Reason Admit Date/Time Dec 17, 2016 at 08:55 Initial Consult Date Dec Type of Consultation: NEPHROLOGY Referring Provider: CARLOS RODRIGUEZ MD 24 HR Interval Summary Free Text/Dictation Cr bumped to 1.4, K 6, HCO3 very low Exam/Review of Systems Vital Signs Vitals Vital Signs Date Time Temp Pulse Resp B/P Pulse Ox O2 Delivery O2 Flow Rate FiO2 12/24/16 20:47 136 12/24/16 15:43 97.9 18 114/70 100 12/23/16 23:35 Room Air Intake and Output 12/23/16 12/23/16 12/24/16 15:00 23:00 07:00 Intake Total 300 ml 1430 ml Output Total 1200 ml Balance 300 ml 230 ml Results Result Diagram: 12/24/16 0740 12/24/16 1030 Results 24 hrs Laboratory Tests Test 12/24/16 07:40 12/24/16 10:30 12/24/16 11:56 White Blood Count 9.2 # Red Blood Count 4.27 Hemoglobin 13.5 Hematocrit 38.9 Mean Corpuscular Volume 91.1 Mean Corpuscular Hemoglobin 31.6 Mean Corpuscular Hemoglobin Concent 34.7 Red Cell Distribution Width 12.9 Platelet Count 511 #H Mean Platelet Volume 9.6 Neutrophils % 72.3 Lymphocytes % 10.5 L Monocytes % 7.3 Eosinophils % 7.9 H Basophils % 0.9 Nucleated Red Blood Cells % 0.0 Neutrophils # 6.6 Lymphocytes # 1.0 Monocytes # 0.7 Eosinophils # 0.7 H Basophils # 0.1 Nucleated Red Blood Cells # 0.0 Sodium Level 132 L Potassium Level 6.0 H Chloride Level 105 Carbon Dioxide Level 9 #*L Anion Gap 24 H Blood Urea Nitrogen 45 #H Creatinine 1.47 H Glucose Level 126 Calcium Level 10.9 H Total Bilirubin 0.0 L Direct Bilirubin 0.00 Indirect Bilirubin 0.0 Aspartate Amino Transf (AST/SGOT) 51 H Alanine Aminotransferase (ALT/SGPT) 53 Alkaline Phosphatase 111 Total Protein 10.7 H Albumin 5.3 H Globulin 5.40 H Albumin/Globulin Ratio 0.98 Thyroid Stimulating Hormone (TSH) 2.290 Thyroxine (T4) 9.0 Blood Gas Specimen Source Blood arterial Arterial Blood Date Drawn 12/24/2016 12:30:31 PM Arterial Blood pH (Temp corrected) 7.285 *L Arterial Blood pCO2 (Temp correct) 23.2 L Arterial Blood pO2 (Temp corrected) 113.1 H Arterial Blood HCO3 10.8 L Arterial Blood Base Excess -13.8 L Arterial Blood Oxygen Saturation 98.1 H Anmol Test ACCEPTAB Arterial Blood Gas Puncture Site Right Radial Arterial Blood Carboxyhemoglobin 0 Arterial Blood Methemoglobin 0.5 Blood Gas A-a O2 Differential 8.8 Oxyhemoglobin Percent 97.6 Total Hemoglobin 14.5 Blood Gas Temperature 37.0 Blood Gas Modality ROOM AIR FiO2 21.0 Blood Gas Critical Value Read Back Neri MORGAN RN Blood Gas Notified Whom CORBY Blood Gas Notified Time 12/24/2016 12:40:54 PM Medications Medications Current Medications Ondansetron HCl (Zofran Inj) 4 mg Q6H PRN IV NAUSEA AND/OR VOMITING Last administered on 12/22/16 21:10; Admin Dose 4 MG; Start 12/17/16 at 13:00 Morphine Sulfate (morphine) 1 mg Q4H PRN IV PAIN LEVEL 7-10; Start 12/17/16 at 13:00 Pantoprazole (Protonix Tab) 40 mg DAILY@06 PO Last administered on 12/24/16 05 :00; Admin Dose 40 MG; Start 12/18/16 at 06:00 Acetaminophen (Tylenol Tab) 500 mg Q4H PRN PO PAIN AND OR ELEVATED TEMP; Start 12/17/16 at 22:30 Albuterol (Ventolin Hfa) 2 puff Q4H PRN INH WHEEZING AND SOB; Start 12/17/16 at 22:30 Folic Acid (Folic Acid) 1 mg DAILY PO Last administered on 12/24/16 08:20; Admin Dose 1 MG; Start 12/18/16 at 09:00 Hydroxyzine Pamoate (Vistaril) 25 mg QHS PRN PO ITCHING Last administered on 23:33; Admin Dose 25 MG; Start 12/17/16 at 22:30 Magnesium Chloride (Mag 64) 64 mg BID PO Last administered on 12/24/16 08:20; Admin Dose 64 MG; Start 12/17/16 at 23:30 Midodrine (Proamatine) 2.5 mg BID@ PRN PO SBP <90; Start 12/17/16 at 22:30 Famotidine (Pepcid) 20 mg Q24H PO Last administered on 12/23/16 21:53; Admin Dose 20 MG; Start 12/17/16 at 22:30 Mupirocin (Bactroban) 1 applic BID TOP Last administered on 12/24/16 08:22; Admin Dose 1 APPLIC; Start 12/19/16 at 21:00 Simethicone (Mylicon) 80 mg BID PRN PO DISTENSION/GAS/BLOATING Last administered on 12/22/16 21:06; Admin Dose 80 MG; Start 12/22/16 at 14:00 ROHAN VELÁZQUEZ MD Dec 24, 2016 21:13
[2016-12-24] MEDS: SODIUM BICARBONATE (IV ADD) 100 MEQ in DEXTROSE 5% 1,000 ML IV SCH (22:56)
[2016-12-25] VITALS (12 sets, daily range): BP systolic 94–114; BP diastolic 52–67; PULSE 108–126; RESP 14–20
[2016-12-25] MEDS: PANTOPRAZOLE (EC) 40 MG TAB PO SCH (05:59)
[2016-12-25] MEDS: SODIUM BICARBONATE (IV ADD) 100 MEQ in DEXTROSE 5% 1,000 ML IV SCH ×2 (05:59→19:18)
[2016-12-25 06:51] LABS: ADD SCAN DIFF NO
[2016-12-25 06:59] LABS: BASOPHIL # 0.1 10^3/ul (0.0-0.1); EOSINOPHILS # 0.7 10^3/ul (0.0-0.5); EOSINOPHILS % 9.6 % (0.0-7.0); HEMATOCRIT 35.7 % (37.0-47.0); HEMOGLOBIN 12.1 g/dl (12.0-16.0); LYMPHOCYTES % 13.2 % (15.0-51.0); MEAN CORPUSCULAR HGB CONC 33.9 g/dl (32.0-37.0); MEAN CORPUSCULAR VOLUME 91.5 fl (82.0-101.0); MEAN PLATELET VOLUME 9.3 fl (7.4-10.4); MONOCYTE # 0.6 10^3/ul (0.3-0.9); MONOCYTES % 8.1 % (0.0-11.0); NEUTROPHIL # 5.2 10^3/ul (1.6-7.5); NEUTROPHILS % 67.2 % (39.0-77.0); PLATELET COUNT 444 10^3/UL (140-415); RED CELL DISTRIBUTION WIDTH 13.1 % (11.5-14.5); WHITE BLOOD COUNT 7.7 10^3/ul (4.8-10.8)
[2016-12-25 07:27] LABS: CALCIUM 9.5 mg/dl (8.4-10.2); CREATININE 1.01 mg/dl (0.44-1.00); POTASSIUM 4.3 mmol/L (3.5-5.1)
[2016-12-25] MEDS: MUPIROCIN 2% 22 GM OINT TOP SCH ×2 (08:06→22:30)
[2016-12-25] MEDS: FOLIC ACID 1 MG TAB PO SCH (08:06)
[2016-12-25] MEDS: MAGNESIUM CHLORIDE (SR) 64 MG TAB PO SCH ×2 (08:06→22:25)
--- NOTE | 2016-12-25 17:19 | PN ---
Date/Time of Note Date/Time of Note DATE: 12/25/16 TIME: 17:11 Assessment/Plan VTE Prophylaxis VTE Prophylaxis Intervention: SCD's Lines/Catheters IV Catheter Type (from [facility]): port a cath Urinary Cath still in place: No Assessment/Plan Chief Complaint/Hosp Course Patient denies any nausea vomiting still has large amount of output from ileostomy, continues to be tachycardic. ASSESSMENT AND PLAN: - Metabolic acidosis, continue IV fluids with bicarb, Dr. Spain is following in nephrology consultation. - Intractable nausea and vomiting, resolved. Dr. Mendez is following in gastroenterology consultation. - Acute kidney injury secondary to dehydration, resolving. Dr. Spain is following in nephrology consultation. Continue IV fluids monitor electrolytes. - Hirschsprung disease. - Ileostomy. Further recommendations based on clinical course. Plan of care discussed with Dr. Paez. 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 Additional Comments Right chest Port-A-Cath Results Result Diagram: 12/25/16 0645 12/25/16 0645 Results 24 hrs Laboratory Tests Test 12/25/16 06:45 White Blood Count 7.7 Red Blood Count 3.90 L Hemoglobin 12.1 Hematocrit 35.7 L Mean Corpuscular Volume 91.5 Mean Corpuscular Hemoglobin 31.0 Mean Corpuscular Hemoglobin Concent 33.9 Red Cell Distribution Width 13.1 Platelet Count 444 H Mean Platelet Volume 9.3 Neutrophils % 67.2 Lymphocytes % 13.2 L Monocytes % 8.1 Eosinophils % 9.6 H Basophils % 1.0 Nucleated Red Blood Cells % 0.0 Neutrophils # 5.2 Lymphocytes # 1.0 Monocytes # 0.6 Eosinophils # 0.7 H Basophils # 0.1 Nucleated Red Blood Cells # 0.0 Sodium Level 135 Potassium Level 4.3 Chloride Level 106 Carbon Dioxide Level 17 L Anion Gap 16 # Blood Urea Nitrogen 39 H Creatinine 1.01 H Glucose Level 99 Calcium Level 9.5 Medications Medications Current Medications Ondansetron HCl (Zofran Inj) 4 mg Q6H PRN IV NAUSEA AND/OR VOMITING Last administered on 12/22/16 21:10; Admin Dose 4 MG; Start 12/17/16 at 13:00 Morphine Sulfate (morphine) 1 mg Q4H PRN IV PAIN LEVEL 7-10; Start 12/17/16 at 13:00 Pantoprazole (Protonix Tab) 40 mg DAILY@06 PO Last administered on 12/25/16 05 :59; Admin Dose 40 MG; Start 12/18/16 at 06:00 Acetaminophen (Tylenol Tab) 500 mg Q4H PRN PO PAIN AND OR ELEVATED TEMP; Start 12/17/16 at 22:30 Albuterol (Ventolin Hfa) 2 puff Q4H PRN INH WHEEZING AND SOB; Start 12/17/16 at 22:30 Folic Acid (Folic Acid) 1 mg DAILY PO Last administered on 12/25/16 08:06; Admin Dose 1 MG; Start 12/18/16 at 09:00 Hydroxyzine Pamoate (Vistaril) 25 mg QHS PRN PO ITCHING Last administered on 23:33; Admin Dose 25 MG; Start 12/17/16 at 22:30 Magnesium Chloride (Mag 64) 64 mg BID PO Last administered on 12/25/16 08:06; Admin Dose 64 MG; Start 12/17/16 at 23:30 Midodrine (Proamatine) 2.5 mg BID@,17 PRN PO SBP <90; Start 12/17/16 at 22:30 Famotidine (Pepcid) 20 mg Q24H PO Last administered on 12/24/16 21:11; Admin Dose 20 MG; Start 12/17/16 at 22:30 Mupirocin (Bactroban) 1 applic BID TOP Last administered on 12/25/16 08:06; Admin Dose 1 APPLIC; Start 6/8/17 at 21:00 Simethicone 80 mg 80 mg BID PRN PO DISTENSION/GAS/BLOATING Last administered on 12/22/16 21:06; Admin Dose 80 MG; Start 12/22/16 at 14:00 Sodium Bicarbonate/ Dextrose (Na Bicarb/D5W) 1,100 ml @ 100 mls/hr Q11H IV Last administered on 12/25/16 05:59; Admin Dose 100 MLS/HR; Start 12/24/16 at 22:30 ROMI ESPINO Dec 25, 2016 17:19
--- NOTE | 2016-12-25 18:08 | CONS ---
Date/Time of Note Date/Time of Note DATE: 12/25/16 TIME: 18:06 Assessment/Plan Assessment/Plan Additional Assessment/Plan 1. Acute kidney injury secondary to severe prerenal azotemia secondary to nausea, vomiting and decreased p.o. intake. 2. Hyponatremia with a sodium of 128 secondary to hypovolemic hyponatremia. 4. Hyperkalemia secondary to worsening acute kidney injury and renal failure.- inow improved 5. Metabolic acidosis with bicarbonate of 16 secondary to increased ileostomy output.- now becomes severe with PH low on ABG - started on HCO3 drip on 12/24/16 PLAN: continue D5W qwith 100 mEQ NaHCO3 to run at 100cc/hr K stable, HCO3 improving plan is to d/c bicarbonater drip in AM will follow up Consultation Date/Type/Reason Admit Date/Time Dec 17, 2016 at 08:55 Initial Consult Date Dec Type of Consultation: NEPHROLOGY Referring Provider: CAROLS RODRIGUEZ MD 24 HR Interval Summary Free Text/Dictation Cr improved to 1.02, HCO3 improving with HCO3 drip, K normal today Exam/Review of Systems Vital Signs Vitals Vital Signs Date Time Temp Pulse Resp B/P Pulse Ox O2 Delivery O2 Flow Rate FiO2 12/25/16 16:28 109 12/25/16 15:31 98.7 16 97/52 100 12/23/16 23:35 Room Air Intake and Output 12/24/16 12/24/16 12/25/16 15:00 23:00 07:00 Intake Total 1320 ml 1300 ml Output Total 550 ml Balance 770 ml 1300 ml Results Result Diagram: 12/25/16 0645 12/25/16 0645 Results 24 hrs Laboratory Tests Test 12/25/16 06:45 White Blood Count 7.7 Red Blood Count 3.90 L Hemoglobin 12.1 Hematocrit 35.7 L Mean Corpuscular Volume 91.5 Mean Corpuscular Hemoglobin 31.0 Mean Corpuscular Hemoglobin Concent 33.9 Red Cell Distribution Width 13.1 Platelet Count 444 H Mean Platelet Volume 9.3 Neutrophils % 67.2 Lymphocytes % 13.2 L Monocytes % 8.1 Eosinophils % 9.6 H Basophils % 1.0 Nucleated Red Blood Cells % 0.0 Neutrophils # 5.2 Lymphocytes # 1.0 Monocytes # 0.6 Eosinophils # 0.7 H Basophils # 0.1 Nucleated Red Blood Cells # 0.0 Sodium Level 135 Potassium Level 4.3 Chloride Level 106 Carbon Dioxide Level 17 L Anion Gap 16 # Blood Urea Nitrogen 39 H Creatinine 1.01 H Glucose Level 99 Calcium Level 9.5 Medications Medications Current Medications Ondansetron HCl (Zofran Inj) 4 mg Q6H PRN IV NAUSEA AND/OR VOMITING Last administered on 12/22/16 21:10; Admin Dose 4 MG; Start 12/17/16 at 13:00 Morphine Sulfate (morphine) 1 mg Q4H PRN IV PAIN LEVEL 7-10; Start 12/17/16 at 13:00 Pantoprazole (Protonix Tab) 40 mg DAILY@06 PO Last administered on 12/25/16 05 :59; Admin Dose 40 MG; Start 12/18/16 at 06:00 Acetaminophen (Tylenol Tab) 500 mg Q4H PRN PO PAIN AND OR ELEVATED TEMP; Start 12/17/16 at 22:30 Albuterol (Ventolin Hfa) 2 puff Q4H PRN INH WHEEZING AND SOB; Start 12/17/16 at 22:30 Folic Acid (Folic Acid) 1 mg DAILY PO Last administered on 12/25/16 08:06; Admin Dose 1 MG; Start 12/18/16 at 09:00 Hydroxyzine Pamoate (Vistaril) 25 mg QHS PRN PO ITCHING Last administered on 23:33; Admin Dose 25 MG; Start 12/17/16 at 22:30 Magnesium Chloride (Mag 64) 64 mg BID PO Last administered on 12/25/16 08:06; Admin Dose 64 MG; Start 12/17/16 at 23:30 Midodrine (Proamatine) 2.5 mg BID@ PRN PO SBP <90; Start 12/17/16 at 22:30 Famotidine (Pepcid) 20 mg Q24H PO Last administered on 12/24/16 21:11; Admin Dose 20 MG; Start 12/17/16 at 22:30 Mupirocin (Bactroban) 1 applic BID TOP Last administered on 12/25/16 08:06; Admin Dose 1 APPLIC; Start 12/19/16 at 21:00 Simethicone 80 mg 80 mg BID PRN PO DISTENSION/GAS/BLOATING Last administered on 12/22/16 21:06; Admin Dose 80 MG; Start 12/22/16 at 14:00 Sodium Bicarbonate/ Dextrose (Na Bicarb/D5W) 1,100 ml @ 100 mls/hr Q11H IV Last administered on 12/25/16 05:59; Admin Dose 100 MLS/HR; Start 12/24/16 at 22:30 ROHAN VELÁZQUEZ MD Dec 25, 2016 18:08
[2016-12-25] MEDS: FAMOTIDINE 20 MG TAB PO SCH (22:25)
[2016-12-25] MEDS: hydrOXYzine PAMOATE 25 MG CAP PO PRN (23:32)
[2016-12-26] VITALS (16 sets, daily range): BP systolic 82–119; BP diastolic 48–69; PULSE 108–187; RESP 18–20
[2016-12-26] MEDS: PANTOPRAZOLE (EC) 40 MG TAB PO SCH (06:17)
--- NOTE | 2016-12-26 06:54 | PN ---
DATE: 12/25/2016 SUBJECTIVE: The patient has no nausea, no vomiting. OBJECTIVE: GENERAL: The patient appears well. VITAL SIGNS: Normal. ABDOMEN: Soft. LABORATORY WORKUP: Hemoglobin is 12.0, WBC 7700. Liver panel is normal. ASSESSMENT: The patient had a gastric ulcer on upper endoscopy. Pathology came back as benign infl ammatory process, no evidence of cancer noted. PLAN: Recommend continue proton pump inhibitor therapy. Recommend repeat EGD as an outpatient in a month. Dictated By: SELINA TY MD NC/NTS Conf#: [id number] DID#: [id number] CC: CARLOS RODRIGUEZ MD;*EndCC*
[2016-12-26 08:27] LABS: ADD SCAN DIFF NO
[2016-12-26 08:38] LABS: BASOPHIL # 0.1 10^3/ul (0.0-0.1); BASOPHILS % 0.9 % (0.0-2.0); EOSINOPHILS # 0.5 10^3/ul (0.0-0.5); EOSINOPHILS % 6.9 % (0.0-7.0); HEMATOCRIT 31.3 % (37.0-47.0); HEMOGLOBIN 10.8 g/dl (12.0-16.0); LYMPHOCYTES # 0.9 10^3/ul (0.8-2.9); LYMPHOCYTES % 11.8 % (15.0-51.0); MEAN CORPUSCULAR HEMOGLOBIN 31.1 pg (29.0-33.0); MEAN CORPUSCULAR HGB CONC 34.5 g/dl (32.0-37.0); MEAN CORPUSCULAR VOLUME 90.2 fl (82.0-101.0); MEAN PLATELET VOLUME 9.8 fl (7.4-10.4); MONOCYTE # 0.6 10^3/ul (0.3-0.9); MONOCYTES % 7.9 % (0.0-11.0); NEUTROPHIL # 5.7 10^3/ul (1.6-7.5); NEUTROPHILS % 71.9 % (39.0-77.0); PLATELET COUNT 397 10^3/UL (140-415); RED BLOOD COUNT 3.47 10^6/ul (4.20-5.40); WHITE BLOOD COUNT 7.9 10^3/ul (4.8-10.8)
[2016-12-26] MEDS: MAGNESIUM CHLORIDE (SR) 64 MG TAB PO SCH ×2 (09:09→21:41)
[2016-12-26] MEDS: FOLIC ACID 1 MG TAB PO SCH (09:09)
[2016-12-26] MEDS: MUPIROCIN 2% 22 GM OINT TOP SCH ×2 (09:10→22:18)
[2016-12-26 09:27] LABS: CALCIUM 9.1 mg/dl (8.4-10.2); CREATININE 0.93 mg/dl (0.44-1.00)
[2016-12-26] MEDS: SODIUM BICARBONATE (IV ADD) 100 MEQ in DEXTROSE 5% 1,000 ML IV SCH ×2 (10:52→16:59)
--- NOTE | 2016-12-26 17:29 | CONS ---
Date/Time of Note Date/Time of Note DATE: 12/26/16 TIME: 17:26 Assessment/Plan Assessment/Plan Additional Assessment/Plan 1. Acute kidney injury secondary to severe prerenal azotemia secondary to nausea, vomiting and decreased p.o. intake. 2. Hyponatremia with a sodium of 128 secondary to hypovolemic hyponatremia. 4. Hyperkalemia secondary to worsening acute kidney injury and renal failure.- inow improved 5. Metabolic acidosis with bicarbonate of 16 secondary to increased ileostomy output.- now becomes severe with PH low on ABG - started on HCO3 drip on 12/24/16 PLAN: d/c HCO3 drip KCL 20mEQ IV x 1 dose now Start D51.2 NS at 75 cc/hr- plan is to d/c IVF tomorrow will follow up Consultation Date/Type/Reason Admit Date/Time Dec 17, 2016 at 08:55 Initial Consult Date Dec Type of Consultation: NEPHROLOGY Referring Provider: CARLOS RODRIGUEZ MD Exam/Review of Systems Vital Signs Vitals Vital Signs Date Time Temp Pulse Resp B/P Pulse Ox O2 Delivery O2 Flow Rate FiO2 12/26/16 17:15 187 12/26/16 15:49 99.0 18 119/65 98 12/23/16 23:35 Room Air Intake and Output 12/25/16 12/25/16 12/26/16 15:00 23:00 07:00 Intake Total 2430 ml Output Total 650 ml Balance 1780 ml Results Result Diagram: 12/26/16 0700 12/26/16 0700 Results 24 hrs Laboratory Tests Test 12/26/16 07:00 White Blood Count 7.9 Red Blood Count 3.47 L Hemoglobin 10.8 L Hematocrit 31.3 L Mean Corpuscular Volume 90.2 Mean Corpuscular Hemoglobin 31.1 Mean Corpuscular Hemoglobin Concent 34.5 Red Cell Distribution Width 13.0 Platelet Count 397 Mean Platelet Volume 9.8 Neutrophils % 71.9 Lymphocytes % 11.8 L Monocytes % 7.9 Eosinophils % 6.9 Basophils % 0.9 Nucleated Red Blood Cells % 0.0 Neutrophils # 5.7 Lymphocytes # 0.9 Monocytes # 0.6 Eosinophils # 0.5 Basophils # 0.1 Nucleated Red Blood Cells # 0.0 Sodium Level 137 Potassium Level 3.0 L Chloride Level 96 #L Carbon Dioxide Level 28 # Anion Gap 16 Blood Urea Nitrogen 28 #H Creatinine 0.93 Glucose Level 115 Calcium Level 9.1 Medications Medications Current Medications Ondansetron HCl (Zofran Inj) 4 mg Q6H PRN IV NAUSEA AND/OR VOMITING Last administered on 12/22/16 21:10; Admin Dose 4 MG; Start 12/17/16 at 13:00 Morphine Sulfate (morphine) 1 mg Q4H PRN IV PAIN LEVEL 7-10; Start 12/17/16 at 13:00 Pantoprazole (Protonix Tab) 40 mg DAILY@06 PO Last administered on 12/26/16 06 :17; Admin Dose 40 MG; Start 12/18/16 at 06:00 Acetaminophen (Tylenol Tab) 500 mg Q4H PRN PO PAIN AND OR ELEVATED TEMP; Start 12/17/16 at 22:30 Albuterol (Ventolin Hfa) 2 puff Q4H PRN INH WHEEZING AND SOB; Start 12/17/16 at 22:30 Folic Acid (Folic Acid) 1 mg DAILY PO Last administered on 12/26/16 09:09; Admin Dose 1 MG; Start 12/18/16 at 09:00 Hydroxyzine Pamoate (Vistaril) 25 mg QHS PRN PO ITCHING Last administered on 23:32; Admin Dose 25 MG; Start 12/17/16 at 22:30 Magnesium Chloride (Mag 64) 64 mg BID PO Last administered on 12/26/16 09:09; Admin Dose 64 MG; Start 12/17/16 at 23:30 Midodrine (Proamatine) 2.5 mg BID@ PRN PO SBP <90; Start 12/17/16 at 22:30 Famotidine (Pepcid) 20 mg Q24H PO Last administered on 12/25/16 22:25; Admin Dose 20 MG; Start 12/17/16 at 22:30 Mupirocin (Bactroban) 1 applic BID TOP Last administered on 12/26/16 09:10; Admin Dose 1 APPLIC; Start 12/19/16 at 21:00 Simethicone 80 mg 80 mg BID PRN PO DISTENSION/GAS/BLOATING Last administered on 12/26/16 09:09; Admin Dose 80 MG; Start 6/11/17 at 14:00 Sodium Bicarbonate/ Dextrose (Na Bicarb/D5W) 1,100 ml @ 100 mls/hr Q11H IV Last administered on 12/26/16t 10:52; Admin Dose 100 MLS/HR; Start 12/24/16 at 22:30 ROHAN VELÁZQUEZ MD Dec 26, 2016 17:29
[2016-12-26] MEDS: DEXTROSE 5%-0.45% NACL 1,000 ML IV SCH (17:40)
[2016-12-26] MEDS ORDERED: METOPROLOL 5 MG INJ IV PRN (18:00)
[2016-12-26] MEDS ORDERED: DIGOXIN 500 MCG INJ IV ONE (18:00)
[2016-12-26] MEDS ORDERED: SOD CHLORIDE 0.9% 500 ML IV ONE (18:00)
--- NOTE | 2016-12-26 18:23 | PN ---
Date/Time of Note Date/Time of Note DATE: 12/26/16 TIME: 18:04 Assessment/Plan VTE Prophylaxis VTE Prophylaxis Intervention: other Lines/Catheters IV Catheter Type (from [facility]): Port a cath Urinary Cath still in place: No Assessment/Plan Assessment/Plan - Tachycardia- cardiology consult - Dr Cherry notified - cont on tele - possible sepsis/infection - possible sepsis/infection - ID Consult- Dr Tomlinson notified - blood c/s ordered- fu - MRSA urine - contact isolation - Metabolic acidosis, continue IV fluids with bicarb, Dr. Spain is following in nephrology consultation. - Intractable nausea and vomiting, resolved. Dr. Mendez is following in gastroenterology consultation. - Acute kidney injury secondary to dehydration, resolving. Dr. Spain is following in nephrology consultation. Continue IV fluids monitor electrolytes. - Hirschsprung disease. - Ileostomy. Further recommendations based on clinical course. Plan of care discussed with Dr. Paez. Subjective 24 Hr Interval Summary Eyes: no complaints ENT: no complaints Respiratory: no complaints Cardiovascular: other (elevated pulse) Gastrointestinal: no complaints Genitourinary: no complaints Musculoskeletal: no complaints Exam/Review of Systems Vital Signs Vitals Vital Signs Date Time Temp Pulse Resp B/P Pulse Ox O2 Delivery O2 Flow Rate FiO2 12/26/16 17:55 132 99/59 12/26/16 15:49 99.0 18 98 12/23/16 23:35 Room Air Intake and Output 12/25/16 12/25/16 12/26/16 15:00 23:00 07:00 Intake Total 2430 ml Output Total 650 ml Balance 1780 ml Exam lying in bed, alert.responsive, tachycardia, denies any chest pain, dizziness. staff. Dr Cherry notified. Constitutional: alert, oriented Respiratory: clear to auscultation, normal air movement Cardiovascular: nl pulses, other (tachycardia), regular rate and rhythm Gastrointestinal: non-tender, soft Musculoskeletal: nl extremities to inspection Extremities: normal pulses 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: nl mental status, nl speech Skin: other (sp multiple abdominal surgeries) Results Result Diagram: 12/26/16 0700 12/26/16 0700 Results 24 hrs Laboratory Tests Test 12/26/16 07:00 White Blood Count 7.9 Red Blood Count 3.47 L Hemoglobin 10.8 L Hematocrit 31.3 L Mean Corpuscular Volume 90.2 Mean Corpuscular Hemoglobin 31.1 Mean Corpuscular Hemoglobin Concent 34.5 Red Cell Distribution Width 13.0 Platelet Count 397 Mean Platelet Volume 9.8 Neutrophils % 71.9 Lymphocytes % 11.8 L Monocytes % 7.9 Eosinophils % 6.9 Basophils % 0.9 Nucleated Red Blood Cells % 0.0 Neutrophils # 5.7 Lymphocytes # 0.9 Monocytes # 0.6 Eosinophils # 0.5 Basophils # 0.1 Nucleated Red Blood Cells # 0.0 Sodium Level 137 Potassium Level 3.0 L Chloride Level 96 #L Carbon Dioxide Level 28 # Anion Gap 16 Blood Urea Nitrogen 28 #H Creatinine 0.93 Glucose Level 115 Calcium Level 9.1 Medications Medications Current Medications Ondansetron HCl (Zofran Inj) 4 mg Q6H PRN IV NAUSEA AND/OR VOMITING Last administered on 12/22/16 21:10; Admin Dose 4 MG; Start 12/17/16 at 13:00 Morphine Sulfate (morphine) 1 mg Q4H PRN IV PAIN LEVEL 7-10; Start 12/17/16 at 13:00 Pantoprazole (Protonix Tab) 40 mg DAILY@06 PO Last administered on 12/26/16 06 :17; Admin Dose 40 MG; Start 12/18/16 at 06:00 Acetaminophen (Tylenol Tab) 500 mg Q4H PRN PO PAIN AND OR ELEVATED TEMP; Start 12/17/16 at 22:30 Albuterol (Ventolin Hfa) 2 puff Q4H PRN INH WHEEZING AND SOB; Start 12/17/16 at 22:30 Folic Acid (Folic Acid) 1 mg DAILY PO Last administered on 12/26/16 09:09; Admin Dose 1 MG; Start 12/18/16 at 09:00 Hydroxyzine Pamoate (Vistaril) 25 mg QHS PRN PO ITCHING Last administered on 23:32; Admin Dose 25 MG; Start 12/17/16 at 22:30 Magnesium Chloride (Mag 64) 64 mg BID PO Last administered on 12/26/16 09:09; Admin Dose 64 MG; Start 12/17/16 at 23:30 Midodrine (Proamatine) 2.5 mg BID@ PRN PO SBP <90 Last administered on 17:50; Admin Dose 2.5 MG; Start 12/17/16 at 22:30 Famotidine (Pepcid) 20 mg Q24H PO Last administered on 12/25/16 22:25; Admin Dose 20 MG; Start 12/17/16 at 22:30 Mupirocin (Bactroban) 1 applic BID TOP Last administered on 12/26/16 09:10; Admin Dose 1 APPLIC; Start 12/19/16 at 21:00 Simethicone 80 mg 80 mg BID PRN PO DISTENSION/GAS/BLOATING Last administered on 12/26/16 09:09; Admin Dose 80 MG; Start 12/22/16 at 14:00 Dextrose/Sodium Chloride 1,000 ml @ 70 mls/hr [id number] IV Last administered on 12/26/16 17:40; Admin Dose 70 MLS/HR; Start 12/26/16 at 17:30 Potassium Chloride/Sodium Chloride (KCl/NS) 110 ml @ 55 mls/hr ONCE ONCE IVPB ; Start 12/26/16 at 18:30; Stop 12/26/16 at 20:29 DEVENDRA GOMES Dec 26, 2016 18:17
[2016-12-26] MEDS ORDERED: POTASSIUM CHLORIDE 20 MEQ in SOD CHLORIDE 0.9% 100 ML IVPB ONE (18:30)
[2016-12-26 19:14] LABS: ADD SCAN DIFF NO
[2016-12-26 19:17] LABS: BASOPHIL # 0.1 10^3/ul (0.0-0.1); BASOPHILS % 0.3 % (0.0-2.0); EOSINOPHILS # 0.3 10^3/ul (0.0-0.5); EOSINOPHILS % 1.7 % (0.0-7.0); HEMOGLOBIN 12.1 g/dl (12.0-16.0); LYMPHOCYTES # 0.9 10^3/ul (0.8-2.9); LYMPHOCYTES % 4.7 % (15.0-51.0); MEAN CORPUSCULAR HEMOGLOBIN 31.2 pg (29.0-33.0); MEAN CORPUSCULAR HGB CONC 34.6 g/dl (32.0-37.0); MEAN CORPUSCULAR VOLUME 90.2 fl (82.0-101.0); MEAN PLATELET VOLUME 9.3 fl (7.4-10.4); MONOCYTE # 1.2 10^3/ul (0.3-0.9); MONOCYTES % 6.5 % (0.0-11.0); NEUTROPHIL # 16.4 10^3/ul (1.6-7.5); NEUTROPHILS % 86.2 % (39.0-77.0); PLATELET COUNT 446 10^3/UL (140-415); RED BLOOD COUNT 3.88 10^6/ul (4.20-5.40); RED CELL DISTRIBUTION WIDTH 13.1 % (11.5-14.5); WHITE BLOOD COUNT 19.1 10^3/ul (4.8-10.8)
[2016-12-26 19:39] LABS: D-DIMER 290.72 ng/ml (<460)
[2016-12-26 19:46] LABS: CHOL/HDL RATIO 3.7 RATIO
[2016-12-26] MEDS: FAMOTIDINE 20 MG TAB PO SCH (21:41)
[2016-12-26] MEDS: ATENOLOL 25 MG TAB PO SCH (21:43)
[2016-12-26] MEDS: DIGOXIN 500 MCG INJ IV SCH (21:44)
[2016-12-27] VITALS (12 sets, daily range): BP systolic 84–102; BP diastolic 54–57; PULSE 85–102; RESP 18–20
[2016-12-27] MEDS: DIGOXIN 500 MCG INJ IV SCH (04:47)
[2016-12-27] MEDS: PANTOPRAZOLE (EC) 40 MG TAB PO SCH (05:15)
--- NOTE | 2016-12-27 07:19 | CONS ---
DATE OF ADMISSION: 12/17/2016 DATE OF CONSULTATION: 12/26/2016 CARDIOLOGY CONSULTATION REASON FOR CONSULTATION: Tachyarrhythmia. REQUESTING PHYSICIAN: Carlos Rodriguez MD HISTORY OF PRESENT ILLNESS: Ms. Martin is a 41-year-old female with a history of Hirschsprung diseas e, chronic anemia, recurrent abdominal surgeries, ileostomy, status post Port-A-Cath placement, who initially presented with complaints of nausea, vomiting, abdominal pain, on 12/17/2016. The patient has been admitted to the telemetry floor and recently was noted to have increasing tachycardia up t o the 150s and 160s with telemetry, most consistent at this time with sinus tachycardia. The patien t at this time does have some anxiety. Denies pain and received IV fluid hydration for marginal blo od pressures right now in the 80s. The patient is being followed by the renal services for acute ki dney injury, the GI service for a gastric ulcer that was seen on endoscopies during this admission a nd is on bicarbonate fluids for ongoing metabolic acidosis in the setting of renal failure. PAST MEDICAL HISTORY: As above in HPI. MEDICATIONS CURRENTLY IN HOSPITAL: 1. Digoxin 25 mg IV push x1. 2. IV fluid hydration at 70 mL an hour. 3. Simethicone. 4. Folic acid 1 mg daily. 5. Protonix 40 mg daily. 6. Magnesium chloride ____ mg p.o. b.i.d. 7. Tylenol ____. 8. Midodrine 2.5 mg p.o. b.i.d. ALLERGIES: CODEINE AND FERROUS SULFATE. SOCIAL HISTORY: No tobacco, ETOH or illicit drug use. FAMILY HISTORY: No history of sudden cardiac or early CAD. REVIEW OF SYSTEMS: As above in HPI. CONSTITUTIONAL: No fevers, chills. PULMONARY: No current signs of respiratory compromise. GASTROINTESTINAL: No vomiting. GENITOURINARY: No hematuria. MUSCULOSKELETAL: Degenerative joint disease. PSYCHIATRIC: The patient denies depression but possible anxiety. NEUROLOGIC: No documented CVA. ENDOCRINE: No documented history of thyroid disease, GI or Hirschsprung disease. PHYSICAL EXAMINATION: VITAL SIGNS: Temperature of 99, blood pressure most recently 89/60, pulse in the 130s to 140s, satu rating 98%. GENERAL: The patient is somewhat anxious. NECK: JVP. No jugular venous distention. CHEST: Upper airway transmitted rhonchorous sounds. HEART: Tachycardic, regular rhythm, normal S1, increased S2, I/ systolic murmur, nondisplaced PMI . ABDOMEN: Positive bowel sounds, soft. EXTREMITIES: No pitting edema, 1+ pulses bilaterally, posterior tibial. LABORATORY DATA: Most recently from today, sodium 137, potassium 3.8, creatinine 0.9, BUN 28. Whit e blood cell count 7.9, hemoglobin 10.8, platelet count of 397. ABG from 12/24/2016 revealing a pH of 7.25 with pCO2 of 23, pO2 of 113, UA borderline. In addition, the patient had a TSH done on 12/12 which returned within normal limits. IMAGING STUDIES: From 12/24/2016 revealed no evidence of pneumonia, new right central venous port i n place with tip in superior vena cava. ELECTROCARDIOGRAM: Most recently dated 12/22/2016 reveals sinus tachycardia at 136 with right axis deviation and isolated T-wave inversion in aVL. IMPRESSION: 1. Tachyarrhythmia at this time, most consistent with sinus tachycardia. 2. Hypotension, borderline and labile. 3. Abnormal electrocardiogram with nonspecific ST-T abnormalities, assess for acute coronary syndro me. 4. History of Hirschsprung disease. 5. Possible anxiety. 6. Acidosis. 7. Improved renal failure. 8. Status post ileostomy. RECOMMENDATIONS: 1. At this time, would maintain the patient on telemetry monitoring to follow rhythm and rate contr ol closely. 2. Continue the patient's IV fluid hydration to assure the patient did not suffer from volume deple tion caused by tachycardia and give a bolus to assess this. 3. Would reassess patient's ejection fraction with echo. 4. Check a D-dimer to rule out possibility of pulmonary embolism, although the patient does not hav e significant shortness of breath because of this degree of tachycardia. 5. Patient is status post TSH within normal limits and also give patient digoxin IV push at this ti me in an attempt to improve heart rate. 6. If the patient's blood pressure increases, then will initiate patient on low dose beta ang w ith atenolol in an attempt to improve heart rate control and additionally will give patient midodrin e at this time to support the patient's blood pressure and in fact increase blood pressure and possi lenore offset some of the patient's ongoing tachycardia. 7. Continue to follow the patient's hemoglobin closely to make sure the patient is not having ongoi ng loss. The patient's hemoglobin did change from 12.1 to 10.8 today and she has gastric ulcer by e ndoscopy. 8. Continue the patient's PPI as well. Thank you for allowing me to take part in the care of this patient. I will continue to follow her alejandro yoo closely with you with further recommendations to be made as the patient progresses through her [facility] clinical course. Dictated By: ANGEL WHITTEN/NTS Conf#: [id number] DID#: [id number] CC: CARLOS RODRIGUEZ MD;*EndCC*
[2016-12-27 07:22] LABS: ADD SCAN DIFF NO
[2016-12-27 07:28] LABS: BASOPHIL # 0.1 10^3/ul (0.0-0.1); BASOPHILS % 0.7 % (0.0-2.0); EOSINOPHILS # 0.7 10^3/ul (0.0-0.5); EOSINOPHILS % 7.3 % (0.0-7.0); HEMATOCRIT 31.9 % (37.0-47.0); HEMOGLOBIN 11.2 g/dl (12.0-16.0); LYMPHOCYTES # 0.9 10^3/ul (0.8-2.9); LYMPHOCYTES % 9.2 % (15.0-51.0); MEAN CORPUSCULAR HGB CONC 35.1 g/dl (32.0-37.0); MEAN CORPUSCULAR VOLUME 91.1 fl (82.0-101.0); MEAN PLATELET VOLUME 9.4 fl (7.4-10.4); MONOCYTE # 0.7 10^3/ul (0.3-0.9); MONOCYTES % 7.8 % (0.0-11.0); NEUTROPHIL # 6.9 10^3/ul (1.6-7.5); NEUTROPHILS % 74.6 % (39.0-77.0); PLATELET COUNT 423 10^3/UL (140-415); RED CELL DISTRIBUTION WIDTH 12.8 % (11.5-14.5); WHITE BLOOD COUNT 9.2 10^3/ul (4.8-10.8)
[2016-12-27 08:16] LABS: CALCIUM 9.8 mg/dl (8.4-10.2); CREATININE 0.98 mg/dl (0.44-1.00); POTASSIUM 4.5 mmol/L (3.5-5.1)
[2016-12-27 08:58] LABS: ADD UMIC YES; UR BILIRUBIN (Dip) NEGATIVE (NEGATIVE); UR BLOOD (Dip) NEGATIVE (NEGATIVE); UR CLARITY CLEAR (CLEAR); UR COLOR YELLOW (YELLOW); UR GLUCOSE (Dip) NEGATIVE (NEGATIVE); UR KETONES (Dip) NEGATIVE (NEGATIVE); UR LEUKOCYTE ESTERASE (Dip) NEGATIVE (NEGATIVE); UR NITRITE (Dip) NEGATIVE (NEGATIVE); UR TOTAL PROTEIN (Dip) 1+ (NEGATIVE); UR UROBILINOGEN (Dip) 0.2 E.U./dL (0.1-1.0)
[2016-12-27] MEDS: ATENOLOL 25 MG TAB PO SCH ×2 (09:00→22:26)
[2016-12-27 09:17] LABS: UR BACTERIA FEW; URINE RBCS 0-2 /HPF (0)
[2016-12-27] MEDS: FOLIC ACID 1 MG TAB PO SCH (09:33)
[2016-12-27] MEDS: MAGNESIUM CHLORIDE (SR) 64 MG TAB PO SCH ×2 (09:33→22:24)
[2016-12-27] MEDS: MUPIROCIN 2% 22 GM OINT TOP SCH ×2 (09:34→22:27)
[2016-12-27] MEDS: DEXTROSE 5%-0.45% NACL 1,000 ML IV SCH (09:35)
--- NOTE | 2016-12-27 14:32 | RADRPT ---
Vent Rate: 88 bpm RR Interval: 0 msec RI Interval: 144 msec QRS Duration: 62 msec QT Interval: 310 msec QTC Interval: 375 msec P-R-T [place]: 75 - 100 - 78 degrees Normal sinus rhythm with sinus arrhythmia Rightward axis Borderline ECG Electronically Signed By: Marcelino Waggoner [id number]
--- NOTE | 2016-12-27 14:35 | CONS ---
Date/Time of Note Date/Time of Note DATE: 12/27/16 TIME: 14:35 Assessment/Plan Assessment/Plan Chief Complaint/Hosp Course patient seen and examined. full note to follow. thanks Problems: Consultation Date/Type/Reason Admit Date/Time Dec 17, 2016 at 08:55 Initial Consult Date Type of Consultation: id Referring Provider: CARLOS RODRIGUEZ MD Exam/Review of Systems Vital Signs Vitals Vital Signs Date Time Temp Pulse Resp B/P Pulse Ox O2 Delivery O2 Flow Rate FiO2 12/27/16 12:26 102 12/27/16 11:57 97.7 18 90/55 100 12/23/16 23:35 Room Air Intake and Output 12/26/16 12/26/16 12/27/16 15:00 23:00 07:00 Intake Total 1000 ml Output Total 3200 ml 300 ml Balance -2200 ml -300 ml Results Result Diagram: 12/27/16 0635 12/27/16 0630 Results 24 hrs Laboratory Tests Test 12/26/16 18:55 12/27/16 06:30 12/27/16 06:35 White Blood Count 19.1 #H 9.2 # Red Blood Count 3.88 L 3.50 L Hemoglobin 12.1 11.2 L Hematocrit 35.0 L 31.9 L Mean Corpuscular Volume 90.2 91.1 Mean Corpuscular Hemoglobin 31.2 32.0 Mean Corpuscular Hemoglobin Concent 34.6 35.1 Red Cell Distribution Width 13.1 12.8 Platelet Count 446 H 423 H Mean Platelet Volume 9.3 9.4 Neutrophils % 86.2 H 74.6 Lymphocytes % 4.7 L 9.2 L Monocytes % 6.5 7.8 Eosinophils % 1.7 7.3 H Basophils % 0.3 0.7 Nucleated Red Blood Cells % 0.0 0.0 Neutrophils # 16.4 H 6.9 Lymphocytes # 0.9 0.9 Monocytes # 1.2 H 0.7 Eosinophils # 0.3 0.7 H Basophils # 0.1 0.1 Nucleated Red Blood Cells # 0.0 0.0 D-Dimer 290.72 D-Dimer Comment Triglycerides Level 493 H Cholesterol Level 205 H LDL Cholesterol, Calculated 51 HDL Cholesterol 55 Cholesterol/HDL Ratio 3.7 Free Thyroxine 1.25 Sodium Level 135 Potassium Level 4.5 Chloride Level 99 Carbon Dioxide Level 23 Anion Gap 18 H Blood Urea Nitrogen 35 H Creatinine 0.98 Glucose Level 116 Calcium Level 9.8 Medications Medications Current Medications Ondansetron HCl (Zofran Inj) 4 mg Q6H PRN IV NAUSEA AND/OR VOMITING Last administered on 12/22/16 21:10; Admin Dose 4 MG; Start 12/17/16 at 13:00 Morphine Sulfate (morphine) 1 mg Q4H PRN IV PAIN LEVEL 7-10; Start 12/17/16 at 13:00 Pantoprazole (Protonix Tab) 40 mg DAILY@06 PO Last administered on 12/27/16 05 :15; Admin Dose 40 MG; Start 12/18/16 at 06:00 Acetaminophen (Tylenol Tab) 500 mg Q4H PRN PO PAIN AND OR ELEVATED TEMP; Start 12/17/16 at 22:30 Albuterol (Ventolin Hfa) 2 puff Q4H PRN INH WHEEZING AND SOB; Start 12/17/16 at 22:30 Folic Acid (Folic Acid) 1 mg DAILY PO Last administered on 12/27/16 09:33; Admin Dose 1 MG; Start 12/18/16 at 09:00 Hydroxyzine Pamoate (Vistaril) 25 mg QHS PRN PO ITCHING Last administered on 23:32; Admin Dose 25 MG; Start 12/17/16 at 22:30 Magnesium Chloride (Mag 64) 64 mg BID PO Last administered on 12/27/16 09:33; Admin Dose 64 MG; Start 12/17/16 at 23:30 Midodrine (Proamatine) 2.5 mg BID@ PRN PO SBP <90 Last administered on 17:50; Admin Dose 2.5 MG; Start 12/17/16 at 22:30 Famotidine (Pepcid) 20 mg Q24H PO Last administered on 12/26/16 21:41; Admin Dose 20 MG; Start 12/17/16 at 22:30 Mupirocin (Bactroban) 1 applic BID TOP Last administered on 12/27/16 09:34; Admin Dose 1 APPLIC; Start 12/19/16 at 21:00 Simethicone 80 mg 80 mg BID PRN PO DISTENSION/GAS/BLOATING Last administered on 12/26/16 09:09; Admin Dose 80 MG; Start 12/22/16 at 14:00 Dextrose/Sodium Chloride (D5-1/2ns) 1,000 ml @ 70 mls/hr [id number] IV Last administered on 12/26/16 17:40; Admin Dose 70 MLS/HR; Start 12/26/16 at 17:30 Atenolol (Tenormin) 25 mg BID PO Last administered on 12/26/16 21:43; Admin Dose 25 MG; Start 12/26/16 at 21:00 Metoprolol Tartrate (Lopressor) 5 mg Q4H PRN IV HR>110 Hold SBP<100; Start at 18:00 LISS MALDONADO MD Dec 27, 2016 14:35
--- NOTE | 2016-12-27 15:48 | PN ---
Date/Time of Note Date/Time of Note DATE: 12/27/16 TIME: 15:44 Assessment/Plan VTE Prophylaxis VTE Prophylaxis Intervention: SCD's Lines/Catheters IV Catheter Type (from [facility]): portacath Urinary Cath still in place: No Assessment/Plan Chief Complaint/Hosp Course Patient denies any nausea vomiting, denies fevers. ASSESSMENT AND PLAN: - Possible sepsis with gram positive cocci bacteremia, start vancomycin, follow up on final cultures, ID consult. - Metabolic acidosis, continue IV fluids with bicarb, Dr. Spain is following in nephrology consultation. - Intractable nausea and vomiting, resolved. Dr. Mendez is following in gastroenterology consultation. - Acute kidney injury secondary to dehydration, resolving. Dr. Spain is following in nephrology consultation. Continue IV fluids monitor electrolytes. - Hirschsprung disease. - Ileostomy. Further recommendations based on clinical course. Plan of care discussed with Dr. Paez. Problems: Exam/Review of Systems Vital Signs Vitals Vital Signs Date Time Temp Pulse Resp B/P Pulse Ox O2 Delivery O2 Flow Rate FiO2 12/27/16 12:26 102 12/27/16 11:57 97.7 18 90/55 100 12/23/16 23:35 Room Air Intake and Output 12/26/16 12/26/16 12/27/16 15:00 23:00 07:00 Intake Total 1000 ml Output Total 3200 ml 300 ml Balance -2200 ml -300 ml Exam Constitutional: alert, oriented Head: normocephalic Neck: supple Respiratory: normal air movement Cardiovascular: nl pulses Gastrointestinal: non-tender, other (Ileostomy), soft Musculoskeletal: nl gait and stance Extremities: normal pulses 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: CLIN NURSE SPEC II-XII intact Additional Comments Right chest Port-A-Cath Results Result Diagram: 12/27/16 0635 12/27/16 0630 Results 24 hrs Laboratory Tests Test 12/26/16 18:55 12/27/16 06:30 12/27/16 06:35 White Blood Count 19.1 #H 9.2 # Red Blood Count 3.88 L 3.50 L Hemoglobin 12.1 11.2 L Hematocrit 35.0 L 31.9 L Mean Corpuscular Volume 90.2 91.1 Mean Corpuscular Hemoglobin 31.2 32.0 Mean Corpuscular Hemoglobin Concent 34.6 35.1 Red Cell Distribution Width 13.1 12.8 Platelet Count 446 H 423 H Mean Platelet Volume 9.3 9.4 Neutrophils % 86.2 H 74.6 Lymphocytes % 4.7 L 9.2 L Monocytes % 6.5 7.8 Eosinophils % 1.7 7.3 H Basophils % 0.3 0.7 Nucleated Red Blood Cells % 0.0 0.0 Neutrophils # 16.4 H 6.9 Lymphocytes # 0.9 0.9 Monocytes # 1.2 H 0.7 Eosinophils # 0.3 0.7 H Basophils # 0.1 0.1 Nucleated Red Blood Cells # 0.0 0.0 D-Dimer 290.72 D-Dimer Comment Triglycerides Level 493 H Cholesterol Level 205 H LDL Cholesterol, Calculated 51 HDL Cholesterol 55 Cholesterol/HDL Ratio 3.7 Free Thyroxine 1.25 Sodium Level 135 Potassium Level 4.5 Chloride Level 99 Carbon Dioxide Level 23 Anion Gap 18 H Blood Urea Nitrogen 35 H Creatinine 0.98 Glucose Level 116 Calcium Level 9.8 Medications Medications Current Medications Ondansetron HCl (Zofran Inj) 4 mg Q6H PRN IV NAUSEA AND/OR VOMITING Last administered on 12/22/16 21:10; Admin Dose 4 MG; Start 12/17/16 at 13:00 Morphine Sulfate (morphine) 1 mg Q4H PRN IV PAIN LEVEL 7-10; Start 12/17/16 at 13:00 Pantoprazole (Protonix Tab) 40 mg DAILY@06 PO Last administered on 12/27/16 05 :15; Admin Dose 40 MG; Start 12/18/16 at 06:00 Acetaminophen (Tylenol Tab) 500 mg Q4H PRN PO PAIN AND OR ELEVATED TEMP; Start 12/17/16 at 22:30 Albuterol (Ventolin Hfa) 2 puff Q4H PRN INH WHEEZING AND SOB; Start 12/17/16 at 22:30 Folic Acid (Folic Acid) 1 mg DAILY PO Last administered on 12/27/16 09:33; Admin Dose 1 MG; Start 12/18/16 at 09:00 Hydroxyzine Pamoate (Vistaril) 25 mg QHS PRN PO ITCHING Last administered on 23:32; Admin Dose 25 MG; Start 12/17/16 at 22:30 Magnesium Chloride (Mag 64) 64 mg BID PO Last administered on 12/27/16 09:33; Admin Dose 64 MG; Start 12/17/16 at 23:30 Midodrine (Proamatine) 2.5 mg BID@,17 PRN PO SBP <90 Last administered on 17:50; Admin Dose 2.5 MG; Start 12/17/16 at 22:30 Famotidine (Pepcid) 20 mg Q24H PO Last administered on 12/26/16 21:41; Admin Dose 20 MG; Start 12/17/16 at 22:30 Mupirocin (Bactroban) 1 applic BID TOP Last administered on 12/27/16 09:34; Admin Dose 1 APPLIC; Start 12/19/16 at 21:00 Simethicone 80 mg 80 mg BID PRN PO DISTENSION/GAS/BLOATING Last administered on 12/26/16 09:09; Admin Dose 80 MG; Start 12/22/16 at 14:00 Dextrose/Sodium Chloride (D5-1/2ns) 1,000 ml @ 70 mls/hr [id number] IV Last administered on 12/26/16 17:40; Admin Dose 70 MLS/HR; Start 12/26/16 at 17:30 Atenolol (Tenormin) 25 mg BID PO Last administered on 12/26/16 21:43; Admin Dose 25 MG; Start 12/26/16 at 21:00 Metoprolol Tartrate (Lopressor) 5 mg Q4H PRN IV HR>110 Hold SBP<100; Start at 18:00 ROMI ESPINO Dec 27, 2016 15:48
[2016-12-27] MEDS ORDERED: VANCOMYCIN IV PER PHARMACY XX SCH (16:00)
[2016-12-27] MEDS ORDERED: VANCOMYCIN 750 MG in SOD CHLORIDE 0.9% 150 ML IVPB ONE (17:00)
--- NOTE | 2016-12-27 19:05 | CONS ---
Date/Time of Note Date/Time of Note DATE: 12/27/16 TIME: 19:04 Assessment/Plan Assessment/Plan Additional Assessment/Plan 1. Acute kidney injury secondary to severe prerenal azotemia secondary to nausea, vomiting and decreased p.o. intake. 2. Hyponatremia with a sodium of 128 secondary to hypovolemic hyponatremia. 4. Hyperkalemia secondary to worsening acute kidney injury and renal failure.- inow improved 5. Metabolic acidosis with bicarbonate of 16 secondary to increased ileostomy output.- now becomes severe with PH low on ABG - started on HCO3 drip on 12/24/16 PLAN: s/p Bicarbonate drip,Electrolytes and Cr stable D/c IV fluid monitor Electorlytes off IVF will follow up Consultation Date/Type/Reason Admit Date/Time Dec 17, 2016 at 08:55 Initial Consult Date Dec Type of Consultation: NEPHROLOGY Referring Provider: CARLOS RODRIGUEZ MD Exam/Review of Systems Vital Signs Vitals Vital Signs Date Time Temp Pulse Resp B/P Pulse Ox O2 Delivery O2 Flow Rate FiO2 12/27/16 16:19 85 12/27/16 16:18 98.1 20 93/54 100 12/23/16 23:35 Room Air Intake and Output 12/26/16 12/26/16 12/27/16 14:59 22:59 06:59 Intake Total 1000 ml Output Total 3200 ml 300 ml Balance -2200 ml -300 ml Results Result Diagram: 12/27/16 0635 12/27/16 0630 Results 24 hrs Laboratory Tests Test 12/27/16 06:30 12/27/16 06:35 Sodium Level 135 Potassium Level 4.5 Chloride Level 99 Carbon Dioxide Level 23 Anion Gap 18 H Blood Urea Nitrogen 35 H Creatinine 0.98 Glucose Level 116 Calcium Level 9.8 White Blood Count 9.2 # Red Blood Count 3.50 L Hemoglobin 11.2 L Hematocrit 31.9 L Mean Corpuscular Volume 91.1 Mean Corpuscular Hemoglobin 32.0 Mean Corpuscular Hemoglobin Concent 35.1 Red Cell Distribution Width 12.8 Platelet Count 423 H Mean Platelet Volume 9.4 Neutrophils % 74.6 Lymphocytes % 9.2 L Monocytes % 7.8 Eosinophils % 7.3 H Basophils % 0.7 Nucleated Red Blood Cells % 0.0 Neutrophils # 6.9 Lymphocytes # 0.9 Monocytes # 0.7 Eosinophils # 0.7 H Basophils # 0.1 Nucleated Red Blood Cells # 0.0 Medications Medications Current Medications Ondansetron HCl (Zofran Inj) 4 mg Q6H PRN IV NAUSEA AND/OR VOMITING Last administered on 12/22/16 21:10; Admin Dose 4 MG; Start 12/17/16 at 13:00 Morphine Sulfate (morphine) 1 mg Q4H PRN IV PAIN LEVEL 7-10; Start 12/17/16 at 13:00 Pantoprazole (Protonix Tab) 40 mg DAILY@06 PO Last administered on 12/27/16 05 :15; Admin Dose 40 MG; Start 12/18/16 at 06:00 Acetaminophen (Tylenol Tab) 500 mg Q4H PRN PO PAIN AND OR ELEVATED TEMP; Start 12/17/16 at 22:30 Albuterol (Ventolin Hfa) 2 puff Q4H PRN INH WHEEZING AND SOB; Start 12/17/16 at 22:30 Folic Acid (Folic Acid) 1 mg DAILY PO Last administered on 12/27/16 09:33; Admin Dose 1 MG; Start 12/18/16 at 09:00 Hydroxyzine Pamoate (Vistaril) 25 mg QHS PRN PO ITCHING Last administered on 23:32; Admin Dose 25 MG; Start 12/17/16 at 22:30 Magnesium Chloride (Mag 64) 64 mg BID PO Last administered on 12/27/16 09:33; Admin Dose 64 MG; Start 12/17/16 at 23:30 Midodrine (Proamatine) 2.5 mg BID@ PRN PO SBP <90 Last administered on 17:50; Admin Dose 2.5 MG; Start 12/17/16 at 22:30 Famotidine (Pepcid) 20 mg Q24H PO Last administered on 12/26/16 21:41; Admin Dose 20 MG; Start 12/17/16 at 22:30 Mupirocin (Bactroban) 1 applic BID TOP Last administered on 12/27/16 09:34; Admin Dose 1 APPLIC; Start 12/19/16 at 21:00 Simethicone 80 mg 80 mg BID PRN PO DISTENSION/GAS/BLOATING Last administered on 12/26/16 09:09; Admin Dose 80 MG; Start 12/22/16 at 14:00 Dextrose/Sodium Chloride (D5-1/2ns) 1,000 ml @ 70 mls/hr [id number] IV Last administered on 12/26/16 17:40; Admin Dose 70 MLS/HR; Start 12/26/16 at 17:30 Atenolol (Tenormin) 25 mg BID PO Last administered on 12/26/16 21:43; Admin Dose 25 MG; Start 12/26/16 at 21:00 Metoprolol Tartrate 5 mg 5 mg Q4H PRN IV HR>110 Hold SBP<100; Start 12/26/16 at 18:00 Vancomycin HCl (Vancocin) 100 ml @ 100 mls/hr Q12H IVPB ; Start 12/28/16 at 05: 00 ROHAN VELÁZQUEZ MD Dec 27, 2016 19:05
--- NOTE | 2016-12-27 19:29 | CONS ---
Date/Time of Note Date/Time of Note DATE: 12/27/16 TIME: 19:24 Assessment/Plan Assessment/Plan Chief Complaint/Hosp Course IMPRESSION: 1. Tachyarrhythmia at this time, most consistent with sinus tachycardia.- overall improved with IVF/midodrine BP support/digoxin/NL TSH/FT4 2. Hypotension, borderline and labile.-on midodrine 3. Abnormal electrocardiogram with nonspecific ST-T abnormalities, assess for acute coronary syndrome. 4. History of Hirschsprung disease. 5. Possible anxiety. 6. Acidosis. 7. Improved renal failure. 8. Status post ileostomy. 9.Bacteremia Recc: -Tele -continue midodrine BP support as necessary -BB as tolerated only -Follow volume status closely -Will f/u echo -Contineu abx's and f/u cx data Problems: Consultation Date/Type/Reason Admit Date/Time Dec 17, 2016 at 08:55 Initial Consult Date 12/26/2016 Type of Consultation: Cardiology Reason for Consultation tachycardia Referring Provider: CARLOS RODRIGUEZ MD Exam/Review of Systems Vital Signs Vitals Vital Signs Date Time Temp Pulse Resp B/P Pulse Ox O2 Delivery O2 Flow Rate FiO2 12/27/16 16:19 85 12/27/16 16:18 98.1 20 93/54 100 12/23/16 23:35 Room Air Intake and Output 12/26/16 12/26/16 12/27/16 15:00 23:00 07:00 Intake Total 1000 ml Output Total 3200 ml 300 ml Balance -2200 ml -300 ml Exam Review of Systems: CONSTITUTIONAL: No fevers, chills. PULMONARY: No sob CARDIOVASCULAR: No chest pain/palpitations GASTROINTESTINAL: No nausea/vomiting. GENITOURINARY: No hematuria/dysuria. MUSCULOSKELETAL: No myagias/arthalgias. PSYCHIATRIC: The patient denies depression. NEUROLOGIC: No weakness Constitutional: alert, oriented Psych: no complaints Head: normocephalic ENMT: mucosa pink and moist Neck: jvd (9 cm water), supple Respiratory: diminished breath sounds (at bases/B) Cardiovascular: regular rate and rhythm Gastrointestinal: non-tender, soft Musculoskeletal: muscle tone (normal) Extremities: edema (none) 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: other (No focal deficits) Results Result Diagram: 12/27/16 0635 12/27/16 0630 Results 24 hrs Laboratory Tests Test 12/27/16 06:30 12/27/16 06:35 12/27/16 18:00 Sodium Level 135 Potassium Level 4.5 Chloride Level 99 Carbon Dioxide Level 23 Anion Gap 18 H Blood Urea Nitrogen 35 H Creatinine 0.98 Glucose Level 116 Calcium Level 9.8 White Blood Count 9.2 # Red Blood Count 3.50 L Hemoglobin 11.2 L Hematocrit 31.9 L Mean Corpuscular Volume 91.1 Mean Corpuscular Hemoglobin 32.0 Mean Corpuscular Hemoglobin Concent 35.1 Red Cell Distribution Width 12.8 Platelet Count 423 H Mean Platelet Volume 9.4 Neutrophils % 74.6 Lymphocytes % 9.2 L Monocytes % 7.8 Eosinophils % 7.3 H Basophils % 0.7 Nucleated Red Blood Cells % 0.0 Neutrophils # 6.9 Lymphocytes # 0.9 Monocytes # 0.7 Eosinophils # 0.7 H Basophils # 0.1 Nucleated Red Blood Cells # 0.0 Lactic Acid Level 1.7 Medications Medications Current Medications Ondansetron HCl (Zofran Inj) 4 mg Q6H PRN IV NAUSEA AND/OR VOMITING Last administered on 12/22/16 21:10; Admin Dose 4 MG; Start 12/17/16 at 13:00 Morphine Sulfate (morphine) 1 mg Q4H PRN IV PAIN LEVEL 7-10; Start 12/17/16 at 13:00 Pantoprazole (Protonix Tab) 40 mg DAILY@06 PO Last administered on 12/27/16 05 :15; Admin Dose 40 MG; Start 12/18/16 at 06:00 Acetaminophen (Tylenol Tab) 500 mg Q4H PRN PO PAIN AND OR ELEVATED TEMP; Start 12/17/16 at 22:30 Albuterol (Ventolin Hfa) 2 puff Q4H PRN INH WHEEZING AND SOB; Start 12/17/16 at 22:30 Folic Acid (Folic Acid) 1 mg DAILY PO Last administered on 12/27/16 09:33; Admin Dose 1 MG; Start 12/18/16 at 09:00 Hydroxyzine Pamoate (Vistaril) 25 mg QHS PRN PO ITCHING Last administered on 23:32; Admin Dose 25 MG; Start 12/17/16 at 22:30 Magnesium Chloride (Mag 64) 64 mg BID PO Last administered on 12/27/16 09:33; Admin Dose 64 MG; Start 12/17/16 at 23:30 Midodrine (Proamatine) 2.5 mg BID@,17 PRN PO SBP <90 Last administered on 17:50; Admin Dose 2.5 MG; Start 12/17/16 at 22:30 Famotidine (Pepcid) 20 mg Q24H PO Last administered on 12/26/16 21:41; Admin Dose 20 MG; Start 12/17/16 at 22:30 Mupirocin (Bactroban) 1 applic BID TOP Last administered on 12/27/16 09:34; Admin Dose 1 APPLIC; Start 12/19/16 at 21:00 Simethicone (Mylicon) 80 mg BID PRN PO DISTENSION/GAS/BLOATING Last administered on 12/26/16 09:09; Admin Dose 80 MG; Start 12/22/16 at 14:00 Atenolol (Tenormin) 25 mg BID PO Last administered on 12/26/16 21:43; Admin Dose 25 MG; Start 12/26/16 at 21:00 Metoprolol Tartrate 5 mg 5 mg Q4H PRN IV HR>110 Hold SBP<100; Start 12/26/16 at 18:00 Vancomycin HCl (Vancocin) 100 ml @ 100 mls/hr Q12H IVPB ; Start 12/28/16 at 05: 00 ANGEL JARAMILLO Dec 27, 2016 19:29
[2016-12-27] MEDS: FAMOTIDINE 20 MG TAB PO SCH (22:24)
[2016-12-28] VITALS (13 sets, daily range): BP systolic 92–135; BP diastolic 50–63; PULSE 85–113; RESP 18–19
[2016-12-28] MEDS: PANTOPRAZOLE (EC) 40 MG TAB PO SCH (05:41)
[2016-12-28] MEDS: VANCOMYCIN 500MG/NS (PMX) 100 ML IVPB SCH ×2 (05:47→17:02)
[2016-12-28 08:03] LABS: ADD SCAN DIFF NO
[2016-12-28 08:13] LABS: BASOPHIL # 0.1 10^3/ul (0.0-0.1); BASOPHILS % 0.6 % (0.0-2.0); EOSINOPHILS # 0.9 10^3/ul (0.0-0.5); EOSINOPHILS % 8.1 % (0.0-7.0); HEMATOCRIT 33.3 % (37.0-47.0); HEMOGLOBIN 11.3 g/dl (12.0-16.0); LYMPHOCYTES # 0.9 10^3/ul (0.8-2.9); LYMPHOCYTES % 8.1 % (15.0-51.0); MEAN CORPUSCULAR HEMOGLOBIN 31.3 pg (29.0-33.0); MEAN CORPUSCULAR HGB CONC 33.9 g/dl (32.0-37.0); MEAN CORPUSCULAR VOLUME 92.2 fl (82.0-101.0); MEAN PLATELET VOLUME 9.5 fl (7.4-10.4); MONOCYTE # 0.8 10^3/ul (0.3-0.9); MONOCYTES % 6.8 % (0.0-11.0); NEUTROPHIL # 8.6 10^3/ul (1.6-7.5); NEUTROPHILS % 75.7 % (39.0-77.0); PLATELET COUNT 430 10^3/UL (140-415); RED BLOOD COUNT 3.61 10^6/ul (4.20-5.40); RED CELL DISTRIBUTION WIDTH 12.8 % (11.5-14.5); WHITE BLOOD COUNT 11.4 10^3/ul (4.8-10.8)
[2016-12-28 08:33] LABS: CALCIUM 10.1 mg/dl (8.4-10.2); CREATININE 0.85 mg/dl (0.44-1.00); POTASSIUM 4.8 mmol/L (3.5-5.1)
[2016-12-28] MEDS: MAGNESIUM CHLORIDE (SR) 64 MG TAB PO SCH ×2 (08:42→21:31)
[2016-12-28] MEDS: FOLIC ACID 1 MG TAB PO SCH (08:42)
[2016-12-28] MEDS: MUPIROCIN 2% 22 GM OINT TOP SCH ×2 (08:43→21:35)
[2016-12-28] MEDS: ATENOLOL 25 MG TAB PO SCH ×2 (08:43→21:00)
--- NOTE | 2016-12-28 11:04 | PN ---
Date/Time of Note Date/Time of Note DATE: 12/28/16 TIME: 10:55 Assessment/Plan VTE Prophylaxis VTE Prophylaxis Intervention: other Lines/Catheters IV [facility] porth a cat Urinary Cath still in place: No Assessment/Plan Assessment/Plan - Hypomagnesium- replace mag. mag level am - Possible sepsis with gram positive cocci bacteremia, start vancomycin, follow up on final cultures, ID consult. - Metabolic acidosis, continue IV fluids with bicarb, Dr. Spain is following in nephrology consultation. - Intractable nausea and vomiting, resolved. Dr. Mendez is following in gastroenterology consultation. - Acute kidney injury secondary to dehydration, resolving. Dr. Spain is following in nephrology consultation. Continue IV fluids monitor electrolytes. - Hirschsprung disease. - Ileostomy. Further recommendations based on clinical course. Plan of care discussed with Dr. Paez. Subjective 24 Hr Interval Summary Free Text/Dictation resting, afebrile, low mag- will replace.dw staff Cardiovascular: no complaints Gastrointestinal: no complaints Exam/Review of Systems Vital Signs Vitals Vital Signs Date Time Temp Pulse Resp B/P Pulse Ox O2 Delivery O2 Flow Rate FiO2 12/28/16 08:23 88 12/28/16 07:46 98.0 18 95/52 98 Intake and Output 12/27/16 12/27/16 12/28/16 15:00 23:00 07:00 Intake Total 880 ml 650 ml Output Total 450 ml 400 ml Balance 430 ml 250 ml Exam Constitutional: alert, oriented ENMT: nl external ears & nose Neck: non-tender, supple Respiratory: clear to auscultation Cardiovascular: nl pulses, regular rate and rhythm Gastrointestinal: non-tender, other, soft Musculoskeletal: nl extremities to inspection Extremities: normal pulses 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: nl mental status, nl speech Results Result Diagram: 12/28/16 0745 12/28/16 0745 Results 24 hrs Laboratory Tests Test 12/27/16 18:00 12/28/16 07:45 Lactic Acid Level 1.7 White Blood Count 11.4 #H Red Blood Count 3.61 L Hemoglobin 11.3 L Hematocrit 33.3 L Mean Corpuscular Volume 92.2 Mean Corpuscular Hemoglobin 31.3 Mean Corpuscular Hemoglobin Concent 33.9 Red Cell Distribution Width 12.8 Platelet Count 430 H Mean Platelet Volume 9.5 Neutrophils % 75.7 Lymphocytes % 8.1 L Monocytes % 6.8 Eosinophils % 8.1 H Basophils % 0.6 Nucleated Red Blood Cells % 0.0 Neutrophils # 8.6 H Lymphocytes # 0.9 Monocytes # 0.8 Eosinophils # 0.9 H Basophils # 0.1 Nucleated Red Blood Cells # 0.0 Sodium Level 134 L Potassium Level 4.8 Chloride Level 103 Carbon Dioxide Level 20 L Anion Gap 16 Blood Urea Nitrogen 32 H Creatinine 0.85 Glucose Level 130 Calcium Level 10.1 Magnesium Level 1.3 L Medications Medications Current Medications Ondansetron HCl (Zofran Inj) 4 mg Q6H PRN IV NAUSEA AND/OR VOMITING Last administered on 12/22/16 21:10; Admin Dose 4 MG; Start 12/17/16 at 13:00 Morphine Sulfate (morphine) 1 mg Q4H PRN IV PAIN LEVEL 7-10; Start 12/17/16 at 13:00 Pantoprazole (Protonix Tab) 40 mg DAILY@06 PO Last administered on 12/28/16 05 :41; Admin Dose 40 MG; Start 12/18/16 at 06:00 Acetaminophen (Tylenol Tab) 500 mg Q4H PRN PO PAIN AND OR ELEVATED TEMP; Start 12/17/16 at 22:30 Albuterol (Ventolin Hfa) 2 puff Q4H PRN INH WHEEZING AND SOB; Start 12/17/16 at 22:30 Folic Acid (Folic Acid) 1 mg DAILY PO Last administered on 12/28/16 08:42; Admin Dose 1 MG; Start 12/18/16 at 09:00 Hydroxyzine Pamoate (Vistaril) 25 mg QHS PRN PO ITCHING Last administered on 23:32; Admin Dose 25 MG; Start 12/17/16 at 22:30 Magnesium Chloride (Mag 64) 64 mg BID PO Last administered on 12/28/16 08:42; Admin Dose 64 MG; Start 12/17/16 at 23:30 Midodrine (Proamatine) 2.5 mg BID@ PRN PO SBP <90 Last administered on 17:50; Admin Dose 2.5 MG; Start 12/17/16 at 22:30 Famotidine (Pepcid) 20 mg Q24H PO Last administered on 12/27/16 22:24; Admin Dose 20 MG; Start 12/17/16 at 22:30 Mupirocin (Bactroban) 1 applic BID TOP Last administered on 12/28/16 08:43; Admin Dose 1 APPLIC; Start 12/19/16 at 21:00 Simethicone (Mylicon) 80 mg BID PRN PO DISTENSION/GAS/BLOATING Last administered on 12/26/16 09:09; Admin Dose 80 MG; Start 12/22/16 at 14:00 Metoprolol Tartrate 5 mg 5 mg Q4H PRN IV HR>110 Hold SBP<100; Start 12/26/16 at 18:00 Vancomycin HCl (Vancocin) 100 ml @ 100 mls/hr Q12H IVPB Last administered on 05:47; Admin Dose 100 MLS/HR; Start 12/28/16 at 05:00 Atenolol (Tenormin) 12.5 mg BID PO Last administered on 12/27/16 22:26; Admin Dose 12.5 MG; Start 12/27/16 at 21:00 DEVENDRA GOEMS Dec 28, 2016 11:04
[2016-12-28] MEDS ORDERED: MAGNESIUM SULFATE 1 GM/D5W 100 ML IVPB ONE ×2 (11:30→13:00)
--- NOTE | 2016-12-28 14:39 | CONS ---
Date/Time of Note Date/Time of Note DATE: 12/28/16 TIME: 14:38 Assessment/Plan Assessment/Plan Additional Assessment/Plan 1. Acute kidney injury secondary to severe prerenal azotemia secondary to nausea, vomiting and decreased p.o. intake. 2. Hyponatremia with a sodium of 128 secondary to hypovolemic hyponatremia. 4. Hyperkalemia secondary to worsening acute kidney injury and renal failure.- inow improved 5. Metabolic acidosis with bicarbonate of 16 secondary to increased ileostomy output.- now becomes severe with PH low on ABG - started on HCO3 drip on 12/24/16 PLAN: s/p Bicarbonate drip,Cr stable, magnesium sulfate 1 gram IV x 1 already given monitor Electorlytes off IVF will follow up Consultation Date/Type/Reason Admit Date/Time Dec 17, 2016 at 08:55 Initial Consult Date Dec Type of Consultation: Nephrology Referring Provider: CARLOS RODRIGUEZ MD 24 HR Interval Summary Free Text/Dictation mag low, K stable, Na slightly low, pt doing ok Exam/Review of Systems Vital Signs Vitals Vital Signs Date Time Temp Pulse Resp B/P Pulse Ox O2 Delivery O2 Flow Rate FiO2 12/28/16 12:30 98.0 103 18 99/50 98 Intake and Output 12/27/16 12/27/16 12/28/16 15:00 23:00 07:00 Intake Total 880 ml 650 ml Output Total 450 ml 400 ml Balance 430 ml 250 ml Results Result Diagram: 12/28/16 0745 12/28/16 0745 Results 24 hrs Laboratory Tests Test 12/27/16 18:00 12/28/16 07:45 Lactic Acid Level 1.7 White Blood Count 11.4 #H Red Blood Count 3.61 L Hemoglobin 11.3 L Hematocrit 33.3 L Mean Corpuscular Volume 92.2 Mean Corpuscular Hemoglobin 31.3 Mean Corpuscular Hemoglobin Concent 33.9 Red Cell Distribution Width 12.8 Platelet Count 430 H Mean Platelet Volume 9.5 Neutrophils % 75.7 Lymphocytes % 8.1 L Monocytes % 6.8 Eosinophils % 8.1 H Basophils % 0.6 Nucleated Red Blood Cells % 0.0 Neutrophils # 8.6 H Lymphocytes # 0.9 Monocytes # 0.8 Eosinophils # 0.9 H Basophils # 0.1 Nucleated Red Blood Cells # 0.0 Sodium Level 134 L Potassium Level 4.8 Chloride Level 103 Carbon Dioxide Level 20 L Anion Gap 16 Blood Urea Nitrogen 32 H Creatinine 0.85 Glucose Level 130 Calcium Level 10.1 Magnesium Level 1.3 L Medications Medications Current Medications Ondansetron HCl (Zofran Inj) 4 mg Q6H PRN IV NAUSEA AND/OR VOMITING Last administered on 12/22/16 21:10; Admin Dose 4 MG; Start 12/17/16 at 13:00 Morphine Sulfate (morphine) 1 mg Q4H PRN IV PAIN LEVEL 7-10; Start 12/17/16 at 13:00 Pantoprazole (Protonix Tab) 40 mg DAILY@06 PO Last administered on 12/28/16 05 :41; Admin Dose 40 MG; Start 12/18/16 at 06:00 Acetaminophen (Tylenol Tab) 500 mg Q4H PRN PO PAIN AND OR ELEVATED TEMP; Start 12/17/16 at 22:30 Albuterol (Ventolin Hfa) 2 puff Q4H PRN INH WHEEZING AND SOB; Start 12/17/16 at 22:30 Folic Acid (Folic Acid) 1 mg DAILY PO Last administered on 12/28/16 08:42; Admin Dose 1 MG; Start 12/18/16 at 09:00 Hydroxyzine Pamoate (Vistaril) 25 mg QHS PRN PO ITCHING Last administered on 23:32; Admin Dose 25 MG; Start 12/17/16 at 22:30 Magnesium Chloride (Mag 64) 64 mg BID PO Last administered on 12/28/16 08:42; Admin Dose 64 MG; Start 12/17/16 at 23:30 Midodrine (Proamatine) 2.5 mg BID@ PRN PO SBP <90 Last administered on 17:50; Admin Dose 2.5 MG; Start 12/17/16 at 22:30 Famotidine (Pepcid) 20 mg Q24H PO Last administered on 12/27/16 22:24; Admin Dose 20 MG; Start 12/17/16 at 22:30 Mupirocin (Bactroban) 1 applic BID TOP Last administered on 12/28/16 08:43; Admin Dose 1 APPLIC; Start 12/19/16 at 21:00 Simethicone (Mylicon) 80 mg BID PRN PO DISTENSION/GAS/BLOATING Last administered on 12/26/16 09:09; Admin Dose 80 MG; Start 12/22/16 at 14:00 Metoprolol Tartrate 5 mg 5 mg Q4H PRN IV HR>110 Hold SBP<100; Start 12/26/16 at 18:00 Vancomycin HCl (Vancocin) 100 ml @ 100 mls/hr Q12H IVPB Last administered on 05:47; Admin Dose 100 MLS/HR; Start 12/28/16 at 05:00 Atenolol (Tenormin) 12.5 mg BID PO Last administered on 12/27/16 22:26; Admin Dose 12.5 MG; Start 12/27/16 at 21:00 Miscellaneous Information (*Rx Drug Level Order Reminder*) VANCOMYCIN TROUGH AT 0400 ONCE ONCE XX ; Start 12/29/16 at 04:00; Stop 12/29/16 at 04:01 ROHAN VELÁZQUEZ MD Dec 28, 2016 14:39
--- NOTE | 2016-12-28 15:00 | CONS ---
Date/Time of Note Date/Time of Note DATE: 12/28/16 TIME: 14:56 Assessment/Plan Assessment/Plan Additional Assessment/Plan Staph Bacteremia Abnormal Electrocardiogram Hirschsprung disease MELBA Anemia s/p Ileostomy Metabolic acidosis Hypotension and tachycardiac Decreased atenolol dose Continue antibiotics Continue GI and DVT Prophylaxis Echo to r/o vegetations Consultation Date/Type/Reason Admit Date/Time Dec 17, 2016 at 08:55 Constitutional: requiring IVF Eyes: no complaints ENT: no complaints Respiratory: no complaints Cardiovascular: no complaints Gastrointestinal: no complaints Genitourinary: no complaints Musculoskeletal: no complaints Psychological: no complaints Past Surgical History Past Surgical Hx: bowel resection, other Social History Smoking Status: Never smoker Exam/Review of Systems Vital Signs Vitals Vital Signs Date Time Temp Pulse Resp B/P Pulse Ox O2 Delivery O2 Flow Rate FiO2 12/28/16 12:30 98.0 103 18 99/50 98 Intake and Output 12/27/16 12/27/16 12/28/16 15:00 23:00 07:00 Intake Total 880 ml 650 ml Output Total 450 ml 400 ml Balance 430 ml 250 ml Exam Constitutional: alert Head: atraumatic Neck: non-tender, supple Respiratory: clear to auscultation Cardiovascular: regular rate and rhythm Gastrointestinal: nl liver, spleen, non-tender, soft Extremities: normal pulses Results Result Diagram: 12/28/16 0745 12/28/16 0745 Results 24 hrs Laboratory Tests Test 12/27/16 18:00 12/28/16 07:45 Lactic Acid Level 1.7 White Blood Count 11.4 #H Red Blood Count 3.61 L Hemoglobin 11.3 L Hematocrit 33.3 L Mean Corpuscular Volume 92.2 Mean Corpuscular Hemoglobin 31.3 Mean Corpuscular Hemoglobin Concent 33.9 Red Cell Distribution Width 12.8 Platelet Count 430 H Mean Platelet Volume 9.5 Neutrophils % 75.7 Lymphocytes % 8.1 L Monocytes % 6.8 Eosinophils % 8.1 H Basophils % 0.6 Nucleated Red Blood Cells % 0.0 Neutrophils # 8.6 H Lymphocytes # 0.9 Monocytes # 0.8 Eosinophils # 0.9 H Basophils # 0.1 Nucleated Red Blood Cells # 0.0 Sodium Level 134 L Potassium Level 4.8 Chloride Level 103 Carbon Dioxide Level 20 L Anion Gap 16 Blood Urea Nitrogen 32 H Creatinine 0.85 Glucose Level 130 Calcium Level 10.1 Magnesium Level 1.3 L Medications Medications Current Medications Ondansetron HCl (Zofran Inj) 4 mg Q6H PRN IV NAUSEA AND/OR VOMITING Last administered on 12/22/16 21:10; Admin Dose 4 MG; Start 12/17/16 at 13:00 Morphine Sulfate (morphine) 1 mg Q4H PRN IV PAIN LEVEL 7-10; Start 12/17/16 at 13:00 Pantoprazole (Protonix Tab) 40 mg DAILY@06 PO Last administered on 12/28/16 05 :41; Admin Dose 40 MG; Start 12/18/16 at 06:00 Acetaminophen (Tylenol Tab) 500 mg Q4H PRN PO PAIN AND OR ELEVATED TEMP; Start 12/17/16 at 22:30 Albuterol (Ventolin Hfa) 2 puff Q4H PRN INH WHEEZING AND SOB; Start 12/17/16 at 22:30 Folic Acid (Folic Acid) 1 mg DAILY PO Last administered on 12/28/16 08:42; Admin Dose 1 MG; Start 12/18/16 at 09:00 Hydroxyzine Pamoate (Vistaril) 25 mg QHS PRN PO ITCHING Last administered on 23:32; Admin Dose 25 MG; Start 12/17/16 at 22:30 Magnesium Chloride (Mag 64) 64 mg BID PO Last administered on 12/28/16 08:42; Admin Dose 64 MG; Start 12/17/16 at 23:30 Midodrine (Proamatine) 2.5 mg BID@ PRN PO SBP <90 Last administered on 17:50; Admin Dose 2.5 MG; Start 12/17/16 at 22:30 Famotidine (Pepcid) 20 mg Q24H PO Last administered on 12/27/16 22:24; Admin Dose 20 MG; Start 12/17/16 at 22:30 Mupirocin (Bactroban) 1 applic BID TOP Last administered on 12/28/16 08:43; Admin Dose 1 APPLIC; Start 12/19/16 at 21:00 Simethicone (Mylicon) 80 mg BID PRN PO DISTENSION/GAS/BLOATING Last administered on 12/26/16 09:09; Admin Dose 80 MG; Start 12/22/16 at 14:00 Metoprolol Tartrate 5 mg 5 mg Q4H PRN IV HR>110 Hold SBP<100; Start 12/26/16 at 18:00 Vancomycin HCl (Vancocin) 100 ml @ 100 mls/hr Q12H IVPB Last administered on 05:47; Admin Dose 100 MLS/HR; Start 12/28/16 at 05:00 Atenolol (Tenormin) 12.5 mg BID PO Last administered on 12/27/16 22:26; Admin Dose 12.5 MG; Start 12/27/16 at 21:00 Miscellaneous Information (*Rx Drug Level Order Reminder*) VANCOMYCIN TROUGH AT 0400 ONCE ONCE XX ; Start 12/29/16 at 04:00; Stop 12/29/16 at 04:01 JOHAN MARINO M.D. Dec 28, 2016 15:00
[2016-12-28] MEDS: FAMOTIDINE 20 MG TAB PO SCH (21:31)
--- NOTE | 2016-12-28 23:49 | CONS ---
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 Transesophageal echo on 11/12/2016 was negative for valvular vegetation - extensive catheterization and possible septic thrombophlebitis - persistent hypotension - h/o infected portacath, s/p removal in 2015-->new port was placed on 11/15/2016 - possible small bowel obstruction, resolved. - acute kidney injury, resolved - Hirschsprung's disease, status post colectomy/ileostomy. - MRSA colonization, on mupirocin (12/19/2016-) recommendations - repeat blood cultures were collected today - will review the final results of her blood cultures from 12/27 and 12/26/2016 - I recommend WBC tagged scan to localize the source of infection. Once Pt and her mother agree, will order - if Pt's persistently bacteremic, port will need to be removed - continue IV vancomycin management d/w Pt and her mother Problems: Consultation Date/Type/Reason Admit Date/Time Dec 17, 2016 at 08:55 Initial Consult Date Type of Consultation: ID Referring Provider: CARLOS RODRIGUEZ MD Exam/Review of Systems Vital Signs Vitals Vital Signs Date Time Temp Pulse Resp B/P Pulse Ox O2 Delivery O2 Flow Rate FiO2 12/28/16 20:22 101 12/28/16 19:53 98.1 19 97/55 100 Intake and Output 12/27/16 12/27/16 12/28/16 15:00 23:00 07:00 Intake Total 880 ml 650 ml Output Total 450 ml 400 ml Balance 430 ml 250 ml Results Result Diagram: 12/28/16 0745 12/28/16 0745 Results 24 hrs Laboratory Tests Test 12/28/16 07:45 White Blood Count 11.4 #H Red Blood Count 3.61 L Hemoglobin 11.3 L Hematocrit 33.3 L Mean Corpuscular Volume 92.2 Mean Corpuscular Hemoglobin 31.3 Mean Corpuscular Hemoglobin Concent 33.9 Red Cell Distribution Width 12.8 Platelet Count 430 H Mean Platelet Volume 9.5 Neutrophils % 75.7 Lymphocytes % 8.1 L Monocytes % 6.8 Eosinophils % 8.1 H Basophils % 0.6 Nucleated Red Blood Cells % 0.0 Neutrophils # 8.6 H Lymphocytes # 0.9 Monocytes # 0.8 Eosinophils # 0.9 H Basophils # 0.1 Nucleated Red Blood Cells # 0.0 Sodium Level 134 L Potassium Level 4.8 Chloride Level 103 Carbon Dioxide Level 20 L Anion Gap 16 Blood Urea Nitrogen 32 H Creatinine 0.85 Glucose Level 130 Calcium Level 10.1 Magnesium Level 1.3 L Medications Medications Current Medications Ondansetron HCl (Zofran Inj) 4 mg Q6H PRN IV NAUSEA AND/OR VOMITING Last administered on 12/22/16 21:10; Admin Dose 4 MG; Start 12/17/16 at 13:00 Morphine Sulfate (morphine) 1 mg Q4H PRN IV PAIN LEVEL 7-10; Start 12/17/16 at 13:00 Pantoprazole (Protonix Tab) 40 mg DAILY@06 PO Last administered on 12/28/16 05 :41; Admin Dose 40 MG; Start 12/18/16 at 06:00 Acetaminophen (Tylenol Tab) 500 mg Q4H PRN PO PAIN AND OR ELEVATED TEMP; Start 12/17/16 at 22:30 Albuterol (Ventolin Hfa) 2 puff Q4H PRN INH WHEEZING AND SOB; Start 12/17/16 at 22:30 Folic Acid (Folic Acid) 1 mg DAILY PO Last administered on 12/28/16 08:42; Admin Dose 1 MG; Start 12/18/16 at 09:00 Hydroxyzine Pamoate (Vistaril) 25 mg QHS PRN PO ITCHING Last administered on 23:32; Admin Dose 25 MG; Start 12/17/16 at 22:30 Magnesium Chloride (Mag 64) 64 mg BID PO Last administered on 12/28/16 21:31; Admin Dose 64 MG; Start 12/17/16 at 23:30 Midodrine (Proamatine) 2.5 mg BID@ PRN PO SBP <90 Last administered on 17:50; Admin Dose 2.5 MG; Start 12/17/16 at 22:30 Famotidine (Pepcid) 20 mg Q24H PO Last administered on 12/28/16 21:31; Admin Dose 20 MG; Start 12/17/16 at 22:30 Mupirocin (Bactroban) 1 applic BID TOP Last administered on 12/28/16 21:35; Admin Dose 1 APPLIC; Start 12/19/16 at 21:00 Simethicone (Mylicon) 80 mg BID PRN PO DISTENSION/GAS/BLOATING Last administered on 12/26/16 09:09; Admin Dose 80 MG; Start 12/22/16 at 14:00 Metoprolol Tartrate 5 mg 5 mg Q4H PRN IV HR>110 Hold SBP<100; Start 12/26/16 at 18:00 Vancomycin HCl (Vancocin) 100 ml @ 100 mls/hr Q12H IVPB Last administered on 17:02; Admin Dose 100 MLS/HR; Start 12/28/16 at 05:00 Atenolol (Tenormin) 12.5 mg BID PO Last administered on 12/27/16 22:26; Admin Dose 12.5 MG; Start 12/27/16 at 21:00 Miscellaneous Information (*Rx Drug Level Order Reminder*) VANCOMYCIN TROUGH AT 0400 ONCE ONCE XX ; Start 12/29/16 at 04:00; Stop 12/29/16 at 04:01 TAWANDA FINK M.D. Dec 28, 2016 23:49
[2016-12-29] VITALS (13 sets, daily range): BP systolic 93–183; BP diastolic 52–94; PULSE 92–110; RESP 18–20
[2016-12-29 05:42] LABS: ADD SCAN DIFF NO
[2016-12-29 05:54] LABS: BASOPHIL # 0.1 10^3/ul (0.0-0.1); BASOPHILS % 0.5 % (0.0-2.0); EOSINOPHILS % 9.3 % (0.0-7.0); HEMATOCRIT 34.5 % (37.0-47.0); HEMOGLOBIN 11.6 g/dl (12.0-16.0); LYMPHOCYTES # 1.1 10^3/ul (0.8-2.9); LYMPHOCYTES % 9.8 % (15.0-51.0); MEAN CORPUSCULAR HGB CONC 33.6 g/dl (32.0-37.0); MEAN CORPUSCULAR VOLUME 92.2 fl (82.0-101.0); MEAN PLATELET VOLUME 9.7 fl (7.4-10.4); MONOCYTE # 0.8 10^3/ul (0.3-0.9); MONOCYTES % 7.3 % (0.0-11.0); NEUTROPHIL # 7.9 10^3/ul (1.6-7.5); NEUTROPHILS % 72.1 % (39.0-77.0); PLATELET COUNT 481 10^3/UL (140-415); RED BLOOD COUNT 3.74 10^6/ul (4.20-5.40); RED CELL DISTRIBUTION WIDTH 12.8 % (11.5-14.5); WHITE BLOOD COUNT 10.9 10^3/ul (4.8-10.8)
[2016-12-29 06:19] LABS: CALCIUM 10.6 mg/dl (8.4-10.2); CREATININE 0.89 mg/dl (0.44-1.00); MAGNESIUM 1.8 mg/dl (1.7-2.5); POTASSIUM 4.6 mmol/L (3.5-5.1)
[2016-12-29] MEDS: PANTOPRAZOLE (EC) 40 MG TAB PO SCH (06:39)
[2016-12-29] MEDS: VANCOMYCIN 500MG/NS (PMX) 100 ML IVPB SCH ×2 (06:39→17:09)
[2016-12-29] MEDS: ATENOLOL 25 MG TAB PO SCH (08:05)
[2016-12-29] MEDS: MAGNESIUM CHLORIDE (SR) 64 MG TAB PO SCH ×2 (08:05→21:49)
[2016-12-29] MEDS: FOLIC ACID 1 MG TAB PO SCH (08:05)
[2016-12-29] MEDS: MUPIROCIN 2% 22 GM OINT TOP SCH ×2 (08:08→21:49)
--- NOTE | 2016-12-29 11:26 | PN ---
Date/Time of Note Date/Time of Note DATE: 12/29/16 TIME: 11:25 Assessment/Plan Lines/Catheters IV Catheter Type (from Rust): porth a cath Urinary Cath still in place: No Assessment/Plan Assessment/Plan - Hypomagnesium- resolved - Possible sepsis with gram positive cocci bacteremia, start vancomycin, follow up on final cultures, ID consult. - Metabolic acidosis, continue IV fluids with bicarb, Dr. Spain is following in nephrology consultation. - Intractable nausea and vomiting, resolved. Dr. Mendez is following in gastroenterology consultation. - Acute kidney injury secondary to dehydration, resolving. Dr. Spain is following in nephrology consultation. Continue IV fluids monitor electrolytes. - Hirschsprung disease. - Ileostomy. Further recommendations based on clinical course. Plan of care discussed with Dr. Paez. Exam/Review of Systems Vital Signs Vitals Vital Signs Date Time Temp Pulse Resp B/P Pulse Ox O2 Delivery O2 Flow Rate FiO2 12/29/16 08:26 98.0 85 18 107/56 100 Exam Constitutional: alert, oriented Respiratory: clear to auscultation, normal air movement Cardiovascular: nl pulses, regular rate and rhythm Gastrointestinal: non-tender, soft Musculoskeletal: nl extremities to inspection Extremities: normal pulses 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: nl mental status, nl speech Results Result Diagram: 12/29/16 0405 12/29/16 0405 Results 24 hrs Laboratory Tests Test 12/29/16 04:05 White Blood Count 10.9 H Red Blood Count 3.74 L Hemoglobin 11.6 L Hematocrit 34.5 L Mean Corpuscular Volume 92.2 Mean Corpuscular Hemoglobin 31.0 Mean Corpuscular Hemoglobin Concent 33.6 Red Cell Distribution Width 12.8 Platelet Count 481 H Mean Platelet Volume 9.7 Neutrophils % 72.1 Lymphocytes % 9.8 L Monocytes % 7.3 Eosinophils % 9.3 H Basophils % 0.5 Nucleated Red Blood Cells % 0.0 Neutrophils # 7.9 H Lymphocytes # 1.1 Monocytes # 0.8 Eosinophils # 1.0 H Basophils # 0.1 Nucleated Red Blood Cells # 0.0 Sodium Level 138 Potassium Level 4.6 Chloride Level 106 Carbon Dioxide Level 19 L Anion Gap 18 H Blood Urea Nitrogen 27 H Creatinine 0.89 Glucose Level 102 Calcium Level 10.6 H Magnesium Level 1.8 Vancomycin Level Trough 15.0 Medications Medications Current Medications Ondansetron HCl (Zofran Inj) 4 mg Q6H PRN IV NAUSEA AND/OR VOMITING Last administered on 12/22/16 21:10; Admin Dose 4 MG; Start 12/17/16 at 13:00 Morphine Sulfate (morphine) 1 mg Q4H PRN IV PAIN LEVEL 7-10; Start 12/17/16 at 13:00 Pantoprazole (Protonix Tab) 40 mg DAILY@06 PO Last administered on 12/29/16 06 :39; Admin Dose 40 MG; Start 12/18/16 at 06:00 Acetaminophen (Tylenol Tab) 500 mg Q4H PRN PO PAIN AND OR ELEVATED TEMP; Start 12/17/16 at 22:30 Albuterol (Ventolin Hfa) 2 puff Q4H PRN INH WHEEZING AND SOB; Start 12/17/16 at 22:30 Folic Acid (Folic Acid) 1 mg DAILY PO Last administered on 12/29/16 08:05; Admin Dose 1 MG; Start 12/18/16 at 09:00 Hydroxyzine Pamoate (Vistaril) 25 mg QHS PRN PO ITCHING Last administered on 23:32; Admin Dose 25 MG; Start 12/17/16 at 22:30 Magnesium Chloride (Mag 64) 64 mg BID PO Last administered on 12/29/16 08:05; Admin Dose 64 MG; Start 12/17/16 at 23:30 Midodrine (Proamatine) 2.5 mg BID@,17 PRN PO SBP <90 Last administered on 17:50; Admin Dose 2.5 MG; Start 12/17/16 at 22:30 Famotidine (Pepcid) 20 mg Q24H PO Last administered on 12/28/16 21:31; Admin Dose 20 MG; Start 12/17/16 at 22:30 Mupirocin (Bactroban) 1 applic BID TOP Last administered on 12/29/16 08:08; Admin Dose 1 APPLIC; Start 12/19/16 at 21:00 Simethicone (Mylicon) 80 mg BID PRN PO DISTENSION/GAS/BLOATING Last administered on 12/26/16 09:09; Admin Dose 80 MG; Start 12/22/16 at 14:00 Metoprolol Tartrate 5 mg 5 mg Q4H PRN IV HR>110 Hold SBP<100; Start 12/26/16 at 18:00 Vancomycin HCl (Vancocin) 100 ml @ 100 mls/hr Q12H IVPB Last administered on 06:39; Admin Dose 100 MLS/HR; Start 12/28/16 at 05:00 Atenolol (Tenormin) 12.5 mg BID PO Last administered on 12/27/16 22:26; Admin Dose 12.5 MG; Start 12/27/16 at 21:00 DEVENDRA GOMES Dec 29, 2016 11:26
--- NOTE | 2016-12-29 13:06 | CONS ---
[facility] HCIS Consult Follow up SOAP Patient Name: Lashell Martin Unit Number: [id number] Date of : 1975 Patient Status: Admitted Inpatient Attending Doctor: Carlos Rodriguez MD Edit: TAWANDA MCELROY M.D. on 12/30/16 @ 13:50 Navi attestation: I discussed the management with SARAH Baird and agree with below Date/Time of Note Date/Time of Note DATE: 12/29/16 TIME: 13:00 Consult Date/Type/Reason Admit Date/Time Dec 17, 2016 at 08:55 Initial Consult Date Type of Consultation: INFECTIOUS DISEASE Ordering Provider: CARLOS RODRIGUEZ MD Subjective requires assistence to get OOB and ambulation Objective Vital Signs Date Time Temp Pulse Resp B/P Pulse Ox O2 Delivery O2 Flow Rate FiO2 12/29/16 12:24 98.0 65 18 183/94 98 Exam Constitutional: frail female lying in bed having lunch Psych: pleasant, cheerful Head: atraumatic, normocephalic Eyes: normal conjunctiva ENMT: moist mucous membranes, no lesions Respiratory: clear to auscultation, normal air movement Chest: Port-a-Cath right upper chest Cardiovascular: regular rate and rhythm, palpable pulses Gastrointestinal: soft, non-tender, non-distended, right sided colostomy with pale liquid stool Genitourinary - uses bedpan prn Extremities: warm, dry and no edema 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: alert and oriented Results/Medications Result Diagram: 12/29/165 12/29/16 0405 Results 24 hrs Laboratory Tests Test 12/29/16 04:05 White Blood Count 10.9 H Red Blood Count 3.74 L Hemoglobin 11.6 L Hematocrit 34.5 L Mean Corpuscular Volume 92.2 Mean Corpuscular Hemoglobin 31.0 Mean Corpuscular Hemoglobin Concent 33.6 Red Cell Distribution Width 12.8 Platelet Count 481 H Mean Platelet Volume 9.7 Neutrophils % 72.1 Lymphocytes % 9.8 L Monocytes % 7.3 Eosinophils % 9.3 H Basophils % 0.5 Nucleated Red Blood Cells % 0.0 Neutrophils # 7.9 H Lymphocytes # 1.1 Monocytes # 0.8 Eosinophils # 1.0 H Basophils # 0.1 Nucleated Red Blood Cells # 0.0 Sodium Level 138 Potassium Level 4.6 Chloride Level 106 Carbon Dioxide Level 19 L Anion Gap 18 H Blood Urea Nitrogen 27 H Creatinine 0.89 Glucose Level 102 Calcium Level 10.6 H Magnesium Level 1.8 Vancomycin Level Trough 15.0 Medications Current Medications Ondansetron HCl (Zofran Inj) 4 mg Q6H PRN IV NAUSEA AND/OR VOMITING Last administered on 12/22/16 21:10; Admin Dose 4 MG; Start 12/17/16 at 13:00 Morphine Sulfate (morphine) 1 mg Q4H PRN IV PAIN LEVEL 7-10; Start 12/17/16 at 13:00 Pantoprazole (Protonix Tab) 40 mg DAILY@06 PO Last administered on 12/29/16 06 :39; Admin Dose 40 MG; Start 12/18/16 at 06:00 Acetaminophen (Tylenol Tab) 500 mg Q4H PRN PO PAIN AND OR ELEVATED TEMP; Start 12/17/16 at 22:30 Albuterol (Ventolin Hfa) 2 puff Q4H PRN INH WHEEZING AND SOB; Start 12/17/16 at 22:30 Folic Acid (Folic Acid) 1 mg DAILY PO Last administered on 12/29/16 08:05; Admin Dose 1 MG; Start 12/18/16 at 09:00 Hydroxyzine Pamoate (Vistaril) 25 mg QHS PRN PO ITCHING Last administered on 23:32; Admin Dose 25 MG; Start 12/17/16 at 22:30 Magnesium Chloride (Mag 64) 64 mg BID PO Last administered on 12/29/16 08:05; Admin Dose 64 MG; Start 12/17/16 at 23:30 Midodrine (Proamatine) 2.5 mg BID@,17 PRN PO SBP <90 Last administered on 17:50; Admin Dose 2.5 MG; Start 12/17/16 at 22:30 Famotidine (Pepcid) 20 mg Q24H PO Last administered on 12/28/16 21:31; Admin Dose 20 MG; Start 12/17/16 at 22:30 Mupirocin (Bactroban) 1 applic BID TOP Last administered on 12/29/16 08:08; Admin Dose 1 APPLIC; Start 12/19/16 at 21:00 Simethicone (Mylicon) 80 mg BID PRN PO DISTENSION/GAS/BLOATING Last administered on 12/26/16 09:09; Admin Dose 80 MG; Start 12/22/16 at 14:00 Metoprolol Tartrate 5 mg 5 mg Q4H PRN IV HR>110 Hold SBP<100; Start 12/26/16 at 18:00 Vancomycin HCl (Vancocin) 100 ml @ 100 mls/hr Q12H IVPB Last administered on 06:39; Admin Dose 100 MLS/HR; Start 12/28/16 at 05:00 Atenolol (Tenormin) 12.5 mg BID PO Last administered on 12/27/16 22:26; Admin Dose 12.5 MG; Start 12/27/16 at 21:00 Assessment/Plan Chief Complaint/Hosp Course - sepsis due to bacteremia - bacteremia due to Staphylococcal species on 12/26/2016 - bacteremia due to Gram positive bacteria on 12/27/2016 - urine culture +MRSA, enterococci, lactobacillus on 12/24/2016 - 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 Transesophageal echo on 11/12/2016 was negative for valvular vegetation - extensive catheterization and possible septic thrombophlebitis - persistent hypotension - h/o infected portacath, s/p removal in 2015-->new port was placed on 11/15/2016 - possible small bowel obstruction, resolved. - acute kidney injury, resolved - Hirschsprung's disease, status post colectomy/ileostomy. - MRSA colonization, on mupirocin (12/19/2016-) recommendations - repeat blood cultures were collected today - will review the final results of her blood cultures from 12/27 and 12/26/2016 - I recommend WBC tagged scan to localize the source of infection. Once Pt and her mother agree, will order - if Pt's persistently bacteremic, port will need to be removed - continue IV vancomycin - CBC & BMP in am - check WBC tagged scan to evaluate a focus of abscess (persistent bacteremia of unknown origin) Care and management discussed with patient, MAXIMO Agrawal and DR. Mcelroy Problems: ANGEL BAIRD Dec 29, 2016 13:06
--- NOTE | 2016-12-29 13:25 | CONS ---
Date/Time of Note Date/Time of Note DATE: 12/29/16 TIME: 13:23 Assessment/Plan Assessment/Plan Additional Assessment/Plan Staph Bacteremia Abnormal Electrocardiogram Hirschsprung disease MELBA Anemia s/p Ileostomy Metabolic acidosis hemodynamically stable Continue Metoprolol Continue antibiotics Continue GI and DVT Prophylaxis Echo pending to r/o vegetation Consultation Date/Type/Reason Admit Date/Time Dec 17, 2016 at 08:55 Initial Consult Date Type of Consultation: ID Referring Provider: CARLOS RODRIGUEZ MD Exam/Review of Systems Vital Signs Vitals Vital Signs Date Time Temp Pulse Resp B/P Pulse Ox O2 Delivery O2 Flow Rate FiO2 12/29/16 12:24 98.0 65 18 183/94 98 Results Result Diagram: 12/29/165 12/29/16 0405 Results 24 hrs Laboratory Tests Test 12/29/16 04:05 White Blood Count 10.9 H Red Blood Count 3.74 L Hemoglobin 11.6 L Hematocrit 34.5 L Mean Corpuscular Volume 92.2 Mean Corpuscular Hemoglobin 31.0 Mean Corpuscular Hemoglobin Concent 33.6 Red Cell Distribution Width 12.8 Platelet Count 481 H Mean Platelet Volume 9.7 Neutrophils % 72.1 Lymphocytes % 9.8 L Monocytes % 7.3 Eosinophils % 9.3 H Basophils % 0.5 Nucleated Red Blood Cells % 0.0 Neutrophils # 7.9 H Lymphocytes # 1.1 Monocytes # 0.8 Eosinophils # 1.0 H Basophils # 0.1 Nucleated Red Blood Cells # 0.0 Sodium Level 138 Potassium Level 4.6 Chloride Level 106 Carbon Dioxide Level 19 L Anion Gap 18 H Blood Urea Nitrogen 27 H Creatinine 0.89 Glucose Level 102 Calcium Level 10.6 H Magnesium Level 1.8 Vancomycin Level Trough 15.0 Medications Medications Current Medications Ondansetron HCl (Zofran Inj) 4 mg Q6H PRN IV NAUSEA AND/OR VOMITING Last administered on 12/22/16 21:10; Admin Dose 4 MG; Start 12/17/16 at 13:00 Morphine Sulfate (morphine) 1 mg Q4H PRN IV PAIN LEVEL 7-10; Start 12/17/16 at 13:00 Pantoprazole (Protonix Tab) 40 mg DAILY@06 PO Last administered on 12/29/16 06 :39; Admin Dose 40 MG; Start 12/18/16 at 06:00 Acetaminophen (Tylenol Tab) 500 mg Q4H PRN PO PAIN AND OR ELEVATED TEMP; Start 12/17/16 at 22:30 Albuterol (Ventolin Hfa) 2 puff Q4H PRN INH WHEEZING AND SOB; Start 12/17/16 at 22:30 Folic Acid (Folic Acid) 1 mg DAILY PO Last administered on 12/29/16 08:05; Admin Dose 1 MG; Start 12/18/16 at 09:00 Hydroxyzine Pamoate (Vistaril) 25 mg QHS PRN PO ITCHING Last administered on 23:32; Admin Dose 25 MG; Start 12/17/16 at 22:30 Magnesium Chloride (Mag 64) 64 mg BID PO Last administered on 12/29/16 08:05; Admin Dose 64 MG; Start 12/17/16 at 23:30 Midodrine (Proamatine) 2.5 mg BID@17 PRN PO SBP <90 Last administered on 17:50; Admin Dose 2.5 MG; Start 12/17/16 at 22:30 Famotidine (Pepcid) 20 mg Q24H PO Last administered on 12/28/16 21:31; Admin Dose 20 MG; Start 12/17/16 at 22:30 Mupirocin (Bactroban) 1 applic BID TOP Last administered on 12/29/16 08:08; Admin Dose 1 APPLIC; Start 12/19/16 at 21:00 Simethicone (Mylicon) 80 mg BID PRN PO DISTENSION/GAS/BLOATING Last administered on 12/26/16 09:09; Admin Dose 80 MG; Start 12/22/16 at 14:00 Metoprolol Tartrate 5 mg 5 mg Q4H PRN IV HR>110 Hold SBP<100; Start 12/26/16 at 18:00 Vancomycin HCl (Vancocin) 100 ml @ 100 mls/hr Q12H IVPB Last administered on 06:39; Admin Dose 100 MLS/HR; Start 12/28/16 at 05:00 Atenolol (Tenormin) 12.5 mg BID PO Last administered on 12/27/16 22:26; Admin Dose 12.5 MG; Start 12/27/16 at 21:00 JOHAN MARINO M.D. Dec 29, 2016 13:25
[2016-12-29] MEDS: METOPROLOL 25 MG TAB PO SCH ×2 (13:30→21:00)
--- NOTE | 2016-12-29 21:06 | CONS ---
Date/Time of Note Date/Time of Note DATE: 12/29/16 TIME: 21:04 Assessment/Plan Assessment/Plan Additional Assessment/Plan 1. Acute kidney injury secondary to severe prerenal azotemia secondary to nausea, vomiting and decreased p.o. intake. 2. Hyponatremia with a sodium of 128 secondary to hypovolemic hyponatremia. 4. Hyperkalemia secondary to worsening acute kidney injury and renal failure.- inow improved 5. Metabolic acidosis with bicarbonate of 16 secondary to increased ileostomy output.- now becomes severe with PH low on ABG - started on HCO3 drip on 12/24/16 PLAN: s/p Bicarbonate drip,Cr stable, HCo3 slowly dropping down, will monitor it monitor Electorlytes off IVF will follow up Consultation Date/Type/Reason Admit Date/Time Dec 17, 2016 at 08:55 Initial Consult Date Dec Type of Consultation: NEPHROLOGY Referring Provider: CARLOS RODRIGUEZ MD Exam/Review of Systems Vital Signs Vitals Vital Signs Date Time Temp Pulse Resp B/P Pulse Ox O2 Delivery O2 Flow Rate FiO2 12/29/16 20:17 92 12/29/16 19:45 97.7 19 93/55 100 Exam Constitutional: alert, oriented Head: normocephalic Neck: supple Respiratory: normal air movement Cardiovascular: nl pulses Gastrointestinal: non-tender, other (Ileostomy), soft Musculoskeletal: nl gait and stance Extremities: normal pulses 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: PSYCHIATRIC REGISTERED NURSE II-XII intact Results Result Diagram: 12/29/16 0405 12/29/16 0405 Results 24 hrs Laboratory Tests Test 12/29/16 04:05 White Blood Count 10.9 H Red Blood Count 3.74 L Hemoglobin 11.6 L Hematocrit 34.5 L Mean Corpuscular Volume 92.2 Mean Corpuscular Hemoglobin 31.0 Mean Corpuscular Hemoglobin Concent 33.6 Red Cell Distribution Width 12.8 Platelet Count 481 H Mean Platelet Volume 9.7 Neutrophils % 72.1 Lymphocytes % 9.8 L Monocytes % 7.3 Eosinophils % 9.3 H Basophils % 0.5 Nucleated Red Blood Cells % 0.0 Neutrophils # 7.9 H Lymphocytes # 1.1 Monocytes # 0.8 Eosinophils # 1.0 H Basophils # 0.1 Nucleated Red Blood Cells # 0.0 Sodium Level 138 Potassium Level 4.6 Chloride Level 106 Carbon Dioxide Level 19 L Anion Gap 18 H Blood Urea Nitrogen 27 H Creatinine 0.89 Glucose Level 102 Calcium Level 10.6 H Magnesium Level 1.8 Vancomycin Level Trough 15.0 Medications Medications Current Medications Ondansetron HCl (Zofran Inj) 4 mg Q6H PRN IV NAUSEA AND/OR VOMITING Last administered on 12/22/16 21:10; Admin Dose 4 MG; Start 12/17/16 at 13:00 Morphine Sulfate (morphine) 1 mg Q4H PRN IV PAIN LEVEL 7-10; Start 12/17/16 at 13:00 Pantoprazole (Protonix Tab) 40 mg DAILY@06 PO Last administered on 12/29/16 06 :39; Admin Dose 40 MG; Start 12/18/16 at 06:00 Acetaminophen (Tylenol Tab) 500 mg Q4H PRN PO PAIN AND OR ELEVATED TEMP; Start 12/17/16 at 22:30 Albuterol (Ventolin Hfa) 2 puff Q4H PRN INH WHEEZING AND SOB; Start 12/17/16 at 22:30 Folic Acid (Folic Acid) 1 mg DAILY PO Last administered on 12/29/16 08:05; Admin Dose 1 MG; Start 12/18/16 at 09:00 Hydroxyzine Pamoate (Vistaril) 25 mg QHS PRN PO ITCHING Last administered on 23:32; Admin Dose 25 MG; Start 12/17/16 at 22:30 Magnesium Chloride (Mag 64) 64 mg BID PO Last administered on 12/29/16 08:05; Admin Dose 64 MG; Start 12/17/16 at 23:30 Midodrine (Proamatine) 2.5 mg BID@,17 PRN PO SBP <90 Last administered on 17:50; Admin Dose 2.5 MG; Start 12/17/16 at 22:30 Famotidine (Pepcid) 20 mg Q24H PO Last administered on 12/28/16 21:31; Admin Dose 20 MG; Start 12/17/16 at 22:30 Mupirocin (Bactroban) 1 applic BID TOP Last administered on 12/29/16 08:08; Admin Dose 1 APPLIC; Start 12/19/16 at 21:00 Simethicone (Mylicon) 80 mg BID PRN PO DISTENSION/GAS/BLOATING Last administered on 12/26/16 09:09; Admin Dose 80 MG; Start 12/22/16 at 14:00 Metoprolol Tartrate 5 mg 5 mg Q4H PRN IV HR>110 Hold SBP<100; Start 12/26/16 at 18:00 Vancomycin HCl (Vancocin) 100 ml @ 100 mls/hr Q12H IVPB Last administered on 17:09; Admin Dose 100 MLS/HR; Start 12/28/16 at 05:00 Metoprolol Tartrate (Lopressor) 25 mg BID PO Last administered on 12/29/16 13: 30; Admin Dose 25 MG; Start 12/29/16 at 13:30 ROHAN VELÁZQUEZ MD Dec 29, 2016 21:06
[2016-12-29] MEDS: FAMOTIDINE 20 MG TAB PO SCH (21:49)
[2016-12-30] VITALS (10 sets, daily range): BP systolic 89–120; BP diastolic 52–63; PULSE 97–150; RESP 18–19
[2016-12-30] MEDS: VANCOMYCIN 500MG/NS (PMX) 100 ML IVPB SCH ×2 (05:17→18:05)
[2016-12-30] MEDS: PANTOPRAZOLE (EC) 40 MG TAB PO SCH (05:17)
[2016-12-30 07:59] LABS: ADD SCAN DIFF NO
[2016-12-30 08:03] LABS: BASOPHIL # 0.1 10^3/ul (0.0-0.1); BASOPHILS % 0.5 % (0.0-2.0); EOSINOPHILS # 0.7 10^3/ul (0.0-0.5); HEMATOCRIT 36.1 % (37.0-47.0); HEMOGLOBIN 12.4 g/dl (12.0-16.0); LYMPHOCYTES # 1.2 10^3/ul (0.8-2.9); LYMPHOCYTES % 8.5 % (15.0-51.0); MEAN CORPUSCULAR HEMOGLOBIN 30.9 pg (29.0-33.0); MEAN CORPUSCULAR HGB CONC 34.3 g/dl (32.0-37.0); MEAN PLATELET VOLUME 9.3 fl (7.4-10.4); MONOCYTE # 0.7 10^3/ul (0.3-0.9); MONOCYTES % 4.8 % (0.0-11.0); NEUTROPHIL # 11.6 10^3/ul (1.6-7.5); PLATELET COUNT 578 10^3/UL (140-415); RED BLOOD COUNT 4.01 10^6/ul (4.20-5.40); RED CELL DISTRIBUTION WIDTH 12.8 % (11.5-14.5); WHITE BLOOD COUNT 14.5 10^3/ul (4.8-10.8)
[2016-12-30 08:56] LABS: CALCIUM 10.8 mg/dl (8.4-10.2); CREATININE 1.08 mg/dl (0.44-1.00)
[2016-12-30] MEDS: FOLIC ACID 1 MG TAB PO SCH (08:57)
[2016-12-30] MEDS: METOPROLOL 25 MG TAB PO SCH (08:58)
[2016-12-30] MEDS: MAGNESIUM CHLORIDE (SR) 64 MG TAB PO SCH ×2 (08:58→19:52)
[2016-12-30] MEDS: MUPIROCIN 2% 22 GM OINT TOP SCH ×2 (08:59→20:00)
[2016-12-30 09:30] LABS: POTASSIUM 6.1 mmol/L (3.5-5.1)
--- NOTE | 2016-12-30 13:57 | CONS ---
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-) recommendations - pending results: blood cultures from 12/28/2016, 2nd part of WBC tagged scan - continue IV vancomycin (12/27/2016-) management d/w Pt and her RN Problems: Consultation Date/Type/Reason Admit Date/Time Dec 17, 2016 at 08:55 Type of Consultation: ID Referring Provider: CARLOS RODRIGUEZ MD 24 HR Interval Summary Constitutional: no complaints Detailed Summary Eyes: no complaints ENT: no complaints Respiratory: no complaints Cardiovascular: no complaints Gastrointestinal: no complaints, other (+coloscomy) Genitourinary: no complaints Musculoskeletal: no complaints Skin: no complaints Neurologic: no complaints Exam/Review of Systems Vital Signs Vitals Vital Signs Date Time Temp Pulse Resp B/P Pulse Ox O2 Delivery O2 Flow Rate FiO2 12/30/16 12:32 98.2 92 18 92/57 100 Intake and Output 12/29/16 12/29/16 12/30/16 15:00 23:00 07:00 Intake Total 900 ml 720 ml Output Total 800 ml 350 ml Balance 100 ml 370 ml Exam Constitutional: frail Psych: no complaints Head: atraumatic, normocephalic Eyes: nl conjunctiva, nl lids ENMT: nl external ears & nose, nl nasal mucosa & septum Neck: supple Respiratory: clear to auscultation, normal air movement Cardiovascular: nl pulses, regular rate and rhythm Gastrointestinal: non-tender, other (colostomy in place), soft Musculoskeletal: nl extremities to inspection Extremities: No edema 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: WEB PRESSMAN II-XII intact, nl mental status Skin: nl turgor Results Result Diagram: 12/30/1615 12/30/16 0715 Results 24 hrs Laboratory Tests Test 12/30/16 07:15 White Blood Count 14.5 #H Red Blood Count 4.01 L Hemoglobin 12.4 Hematocrit 36.1 L Mean Corpuscular Volume 90.0 Mean Corpuscular Hemoglobin 30.9 Mean Corpuscular Hemoglobin Concent 34.3 Red Cell Distribution Width 12.8 Platelet Count 578 #H Mean Platelet Volume 9.3 Neutrophils % 80.0 H Lymphocytes % 8.5 L Monocytes % 4.8 Eosinophils % 5.0 Basophils % 0.5 Nucleated Red Blood Cells % 0.0 Neutrophils # 11.6 H Lymphocytes # 1.2 Monocytes # 0.7 Eosinophils # 0.7 H Basophils # 0.1 Nucleated Red Blood Cells # 0.0 Sodium Level 130 L Potassium Level 6.1 *H Chloride Level 99 Carbon Dioxide Level 16 L Anion Gap 21 H Blood Urea Nitrogen 46 #H Creatinine 1.08 H Glucose Level 109 Calcium Level 10.8 H Medications Medications Current Medications Ondansetron HCl (Zofran Inj) 4 mg Q6H PRN IV NAUSEA AND/OR VOMITING Last administered on 12/22/16 21:10; Admin Dose 4 MG; Start 12/17/16 at 13:00 Morphine Sulfate (morphine) 1 mg Q4H PRN IV PAIN LEVEL 7-10; Start 12/17/16 at 13:00 Pantoprazole (Protonix Tab) 40 mg DAILY@06 PO Last administered on 12/30/16 05 :17; Admin Dose 40 MG; Start 12/18/16 at 06:00 Acetaminophen (Tylenol Tab) 500 mg Q4H PRN PO PAIN AND OR ELEVATED TEMP; Start 12/17/16 at 22:30 Albuterol (Ventolin Hfa) 2 puff Q4H PRN INH WHEEZING AND SOB; Start 12/17/16 at 22:30 Folic Acid (Folic Acid) 1 mg DAILY PO Last administered on 12/30/16 08:57; Admin Dose 1 MG; Start 12/18/16 at 09:00 Hydroxyzine Pamoate (Vistaril) 25 mg QHS PRN PO ITCHING Last administered on 23:32; Admin Dose 25 MG; Start 12/17/16 at 22:30 Magnesium Chloride (Mag 64) 64 mg BID PO Last administered on 12/30/16 08:58; Admin Dose 64 MG; Start 12/17/16 at 23:30 Midodrine (Proamatine) 2.5 mg BID@,17 PRN PO SBP <90 Last administered on 17:50; Admin Dose 2.5 MG; Start 12/17/16 at 22:30 Famotidine (Pepcid) 20 mg Q24H PO Last administered on 12/29/16 21:49; Admin Dose 20 MG; Start 12/17/16 at 22:30 Mupirocin (Bactroban) 1 applic BID TOP Last administered on 12/30/16 08:59; Admin Dose 1 APPLIC; Start 12/19/16 at 21:00 Simethicone (Mylicon) 80 mg BID PRN PO DISTENSION/GAS/BLOATING Last administered on 12/26/16 09:09; Admin Dose 80 MG; Start 12/22/16 at 14:00 Metoprolol Tartrate 5 mg 5 mg Q4H PRN IV HR>110 Hold SBP<100; Start 12/26/16 at 18:00 Vancomycin HCl (Vancocin) 100 ml @ 100 mls/hr Q12H IVPB Last administered on 05:17; Admin Dose 100 MLS/HR; Start 12/28/16 at 05:00 Metoprolol Tartrate (Lopressor) 25 mg BID PO Last administered on 12/29/16 13: 30; Admin Dose 25 MG; Start 12/29/16 at 13:30 TAWANDA FINK M.D. Dec 30, 2016 13:56
--- NOTE | 2016-12-30 17:58 | CONS ---
Date/Time of Note Date/Time of Note DATE: 12/30/16 TIME: 17:55 Assessment/Plan Assessment/Plan Additional Assessment/Plan 1. Acute kidney injury secondary to severe prerenal azotemia secondary to nausea, vomiting and decreased p.o. intake. 2. Hyponatremia with a sodium of 128 secondary to hypovolemic hyponatremia. 4. Hyperkalemia secondary to worsening acute kidney injury and renal failure.- inow improved 5. Metabolic acidosis with bicarbonate of 16 secondary to increased ileostomy output.- now becomes severe with PH low on ABG - started on HCO3 drip on 12/24/16 PLAN: HCo3 dropped, K 6.1- will give bicarbonate drip with 2 ampoules of sodium bicarbonate x 2 liter then stop will follow up kayexalate 15 gram PO x 1dose now Consultation Date/Type/Reason Admit Date/Time Dec 17, 2016 at 08:55 Initial Consult Date Dec Type of Consultation: NEPHROLOGY Referring Provider: CARLOS RODRIGUEZ MD 24 HR Interval Summary Free Text/Dictation K high, HCO3 has been low, Bp stable, Exam/Review of Systems Vital Signs Vitals Vital Signs Date Time Temp Pulse Resp B/P Pulse Ox O2 Delivery O2 Flow Rate FiO2 12/30/16 16:40 118 12/30/16 16:24 97.7 18 89/63 100 Intake and Output 12/29/16 12/29/16 12/30/16 15:00 23:00 07:00 Intake Total 900 ml 720 ml Output Total 800 ml 350 ml Balance 100 ml 370 ml Exam Constitutional: alert, oriented Head: normocephalic Neck: supple Respiratory: normal air movement Cardiovascular: nl pulses Gastrointestinal: non-tender, other (Ileostomy), soft Musculoskeletal: nl gait and stance Extremities: normal pulses 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 Results Result Diagram: 12/30/1615 12/30/16 0715 Results 24 hrs Laboratory Tests Test 12/30/16 07:15 White Blood Count 14.5 #H Red Blood Count 4.01 L Hemoglobin 12.4 Hematocrit 36.1 L Mean Corpuscular Volume 90.0 Mean Corpuscular Hemoglobin 30.9 Mean Corpuscular Hemoglobin Concent 34.3 Red Cell Distribution Width 12.8 Platelet Count 578 #H Mean Platelet Volume 9.3 Neutrophils % 80.0 H Lymphocytes % 8.5 L Monocytes % 4.8 Eosinophils % 5.0 Basophils % 0.5 Nucleated Red Blood Cells % 0.0 Neutrophils # 11.6 H Lymphocytes # 1.2 Monocytes # 0.7 Eosinophils # 0.7 H Basophils # 0.1 Nucleated Red Blood Cells # 0.0 Sodium Level 130 L Potassium Level 6.1 *H Chloride Level 99 Carbon Dioxide Level 16 L Anion Gap 21 H Blood Urea Nitrogen 46 #H Creatinine 1.08 H Glucose Level 109 Calcium Level 10.8 H Medications Medications Current Medications Ondansetron HCl (Zofran Inj) 4 mg Q6H PRN IV NAUSEA AND/OR VOMITING Last administered on 12/22/16 21:10; Admin Dose 4 MG; Start 12/17/16 at 13:00 Morphine Sulfate (morphine) 1 mg Q4H PRN IV PAIN LEVEL 7-10; Start 12/17/16 at 13:00 Pantoprazole (Protonix Tab) 40 mg DAILY@06 PO Last administered on 12/30/16 05 :17; Admin Dose 40 MG; Start 12/18/16 at 06:00 Acetaminophen (Tylenol Tab) 500 mg Q4H PRN PO PAIN AND OR ELEVATED TEMP; Start 12/17/16 at 22:30 Albuterol (Ventolin Hfa) 2 puff Q4H PRN INH WHEEZING AND SOB; Start 12/17/16 at 22:30 Folic Acid (Folic Acid) 1 mg DAILY PO Last administered on 12/30/16 08:57; Admin Dose 1 MG; Start 12/18/16 at 09:00 Hydroxyzine Pamoate (Vistaril) 25 mg QHS PRN PO ITCHING Last administered on 23:32; Admin Dose 25 MG; Start 12/17/16 at 22:30 Magnesium Chloride (Mag 64) 64 mg BID PO Last administered on 12/30/16 08:58; Admin Dose 64 MG; Start 12/17/16 at 23:30 Midodrine (Proamatine) 2.5 mg BID@17 PRN PO SBP <90 Last administered on 17:50; Admin Dose 2.5 MG; Start 12/17/16 at 22:30 Famotidine (Pepcid) 20 mg Q24H PO Last administered on 12/29/16 21:49; Admin Dose 20 MG; Start 12/17/16 at 22:30 Mupirocin (Bactroban) 1 applic BID TOP Last administered on 12/30/16 08:59; Admin Dose 1 APPLIC; Start 12/19/16 at 21:00 Simethicone (Mylicon) 80 mg BID PRN PO DISTENSION/GAS/BLOATING Last administered on 12/26/16 09:09; Admin Dose 80 MG; Start 12/22/16 at 14:00 Metoprolol Tartrate 5 mg 5 mg Q4H PRN IV HR>110 Hold SBP<100; Start 12/26/16 at 18:00 Vancomycin HCl (Vancocin) 100 ml @ 100 mls/hr Q12H IVPB Last administered on 05:17; Admin Dose 100 MLS/HR; Start 12/28/16 at 05:00 Metoprolol Tartrate (Lopressor) 25 mg BID PO Last administered on 12/29/16 13: 30; Admin Dose 25 MG; Start 12/29/16 at 13:30 Miscellaneous Information (*Rx Drug Level Order Reminder*) 1 ONCE ONCE XX ; Start 12/31/16 at 16:00; Stop 12/31/16 at 16:01 ROHAN VELÁZQUEZ MD Dec 30, 2016 17:58
[2016-12-30] MEDS ORDERED: NA POLYST SULFON 15 GM/60 ML BTL PO ONE (18:00)
--- NOTE | 2016-12-30 19:11 | PN ---
Date/Time of Note Date/Time of Note DATE: 12/30/16 TIME: 19:07 Assessment/Plan VTE Prophylaxis VTE Prophylaxis Intervention: SCD's Lines/Catheters [facility] PORT-A-CATH Assessment/Plan Chief Complaint/Hosp Course Patient denies fever nausea vomiting. ASSESSMENT AND PLAN: - Hyperkalemia status post back Kayexalate. - Possible sepsis with staph bacteremia, continue vancomycin, Dr. Ba is following an infection disease consultation. Patient is undergoing a nuclear WBC scan. - Metabolic acidosis, continue IV fluids with bicarb, Dr. Spain is following in nephrology consultation. - Intractable nausea and vomiting, resolved. Dr. Mendez is following in gastroenterology consultation. - Acute kidney injury. Dr. Spain is following in nephrology consultation. Continue IV fluids monitor electrolytes. - Hirschsprung disease. - Ileostomy. Further recommendations based on clinical course. Plan of care discussed with Dr. Paez. 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 Additional Comments Right chest Port-A-Cath Results Result Diagram: 12/30/1615 12/30/1615 Results 24 hrs Laboratory Tests Test 12/30/16 07:15 White Blood Count 14.5 #H Red Blood Count 4.01 L Hemoglobin 12.4 Hematocrit 36.1 L Mean Corpuscular Volume 90.0 Mean Corpuscular Hemoglobin 30.9 Mean Corpuscular Hemoglobin Concent 34.3 Red Cell Distribution Width 12.8 Platelet Count 578 #H Mean Platelet Volume 9.3 Neutrophils % 80.0 H Lymphocytes % 8.5 L Monocytes % 4.8 Eosinophils % 5.0 Basophils % 0.5 Nucleated Red Blood Cells % 0.0 Neutrophils # 11.6 H Lymphocytes # 1.2 Monocytes # 0.7 Eosinophils # 0.7 H Basophils # 0.1 Nucleated Red Blood Cells # 0.0 Sodium Level 130 L Potassium Level 6.1 *H Chloride Level 99 Carbon Dioxide Level 16 L Anion Gap 21 H Blood Urea Nitrogen 46 #H Creatinine 1.08 H Glucose Level 109 Calcium Level 10.8 H Medications Medications Current Medications Ondansetron HCl (Zofran Inj) 4 mg Q6H PRN IV NAUSEA AND/OR VOMITING Last administered on 12/22/16 21:10; Admin Dose 4 MG; Start 12/17/16 at 13:00 Morphine Sulfate (morphine) 1 mg Q4H PRN IV PAIN LEVEL 7-10; Start 12/17/16 at 13:00 Pantoprazole (Protonix Tab) 40 mg DAILY@06 PO Last administered on 12/30/16 05 :17; Admin Dose 40 MG; Start 12/18/16 at 06:00 Acetaminophen (Tylenol Tab) 500 mg Q4H PRN PO PAIN AND OR ELEVATED TEMP; Start 12/17/16 at 22:30 Albuterol (Ventolin Hfa) 2 puff Q4H PRN INH WHEEZING AND SOB; Start 12/17/16 at 22:30 Folic Acid (Folic Acid) 1 mg DAILY PO Last administered on 12/30/16 08:57; Admin Dose 1 MG; Start 12/18/16 at 09:00 Hydroxyzine Pamoate (Vistaril) 25 mg QHS PRN PO ITCHING Last administered on 23:32; Admin Dose 25 MG; Start 12/17/16 at 22:30 Magnesium Chloride (Mag 64) 64 mg BID PO Last administered on 12/30/16 08:58; Admin Dose 64 MG; Start 12/17/16 at 23:30 Midodrine (Proamatine) 2.5 mg BID@17 PRN PO SBP <90 Last administered on 17:50; Admin Dose 2.5 MG; Start 12/17/16 at 22:30 Famotidine (Pepcid) 20 mg Q24H PO Last administered on 12/29/16 21:49; Admin Dose 20 MG; Start 12/17/16 at 22:30 Mupirocin (Bactroban) 1 applic BID TOP Last administered on 12/30/16 08:59; Admin Dose 1 APPLIC; Start 12/19/16 at 21:00 Simethicone (Mylicon) 80 mg BID PRN PO DISTENSION/GAS/BLOATING Last administered on 12/26/16 09:09; Admin Dose 80 MG; Start 12/22/16 at 14:00 Metoprolol Tartrate 5 mg 5 mg Q4H PRN IV HR>110 Hold SBP<100; Start 12/26/16 at 18:00 Vancomycin HCl (Vancocin) 100 ml @ 100 mls/hr Q12H IVPB Last administered on 18:05; Admin Dose 100 MLS/HR; Start 12/28/16 at 05:00 Metoprolol Tartrate (Lopressor) 25 mg BID PO Last administered on 12/29/16 13: 30; Admin Dose 25 MG; Start 12/29/16 at 13:30 Miscellaneous Information 1 ONCE ONCE XX ; Start 12/31/16 at 16:00; Stop at 16:01 Sodium Bicarbonate/ Dextrose (Na Bicarb/D5W) 1,100 ml @ 75 mls/hr [id number] IV ; Start 12/30/16 at 19:00; Stop 01/01/17 at 00:19 ROMI ESPINO Dec 30, 2016 19:11
--- NOTE | 2016-12-30 19:25 | RADRPT ---
Echocardiogram Report Patient Name: JACKIE DAMIAN Gender: Female Date: 1975 Study Date: 30-Dec-2016 [place] Operator: Allison Watson [facility] Location: [id number] Ref. Physician: JOHAN MARINO Quality: Technically Difficult Study Procedures: Transthoracic echocardiogram with complete 2D, M-Mode, and doppler examination. Indications: r/o vegetation. 2D/M Mode Doppler Measurement Value Normal Ranges Measurement Value Normal Ranges LVIDd 2D 2.3 3.5 - 5.6 cm AV Peak Samuel 0.8 m/sec LVIDs 2D 1.7 2.1 - 4.1 cm AV Peak PG 2.6 mmHg LVPWd 2D 0.8 0.6 - 1.1 cm MV E Peak Samuel 0.6 m/sec IVSd 2D 0.8 0.6 - 1.1 cm MV A Peak Samuel 0.6 m/sec AoR Diam 2D 1.5 2.0 - 3.7 cm MV E/A 1.1 EDV 2D 18.7 cm3 MV Decel Time 220 msec ESV 2D 4.8 cm3 MV Decel Perkins 3 LA Dimen 2D 2.0 2.3 - 4.0 cm MV E/A 1.1 TR Peak Samuel 2.1 m/sec TR Peak PG 17.2 mmHg RVSP 20.0 mmHg Findings Left Ventricle: Normal left ventricular systolic function. Normal left ventricular cavity size. Normal left ventricular wall thickness. Ejection fraction is visually estimated at 6065 %. Abnormal Diastolic Function. Right Ventricle: Normal right ventricular systolic function. Not well visualized. Left Atrium: The left atrium is normal in size. Right Atrium: Not well visualized. Mitral Valve: Normal appearance and function of the mitral valve with trace physiologic regurgitation. Aortic Valve: Normal appearance of the aortic valve. No significant aortic stenosis or insufficiency. Tricuspid Valve: Normal appearance of the tricuspid valve. Estimated peak PA systolic pressure 20 mmHg. There is trace tricuspid regurgitation. Pulmonic Valve: Pulmonic valve not well visualized. Pericardium: Normal pericardium with no significant pericardial effusion. Aorta: Normal aortic root. IVC: Normal size and normal respiratory collapse consistent with normal right atrial pressure. Conclusions 1.Normal left ventricular systolic function. Normal left ventricular cavity size. Normal left ventricular wall thickness. Ejection fraction is visually estimated at 60-65 %. Abnormal Diastolic Function. 2.Normal appearance and function of the mitral valve with trace physiologic regurgitation. 3.Normal appearance of the tricuspid valve. Estimated peak PA systolic pressure 20 mmHg. There is trace tricuspid regurgitation. Electronically Signed By: Yariel Cherry 30-Dec-2016 19:24:55 -0700 Patient Name: JACKIE DAMIAN Study Date: 30-Dec-2016 [id number]
--- NOTE | 2016-12-30 19:32 | CONS ---
Date/Time of Note Date/Time of Note DATE: 12/30/16 TIME: 19:29 Assessment/Plan Assessment/Plan Chief Complaint/Hosp Course IMPRESSION: 1. Tachyarrhythmia at this time, most consistent with sinus tachycardia.- overall improved intially after IVF/midodrine BP support/digoxin/NL TSH/FT4. NL EF by echo. Having recurrent tachycardia 2. Hypotension, borderline and labile.-on midodrine 3. Abnormal electrocardiogram with nonspecific ST-T abnormalities, assess for acute coronary syndrome.NL EF by echo this admit/negative trop 4. History of Hirschsprung disease. 5. Possible anxiety. 6. Acidosis. 7. Improved renal failure. 8. Status post ileostomy. 9.Bacteremia-by blood cultures Recc: -Tele -continue midodrine BP support as necessary -BB as tolerated only -Follow volume status closely on Hco3 fluids -Continue abx's and f/u cx data Problems: Consultation Date/Type/Reason Admit Date/Time Dec 17, 2016 at 08:55 Initial Consult Date 12/26/2016 Type of Consultation: cardiology Reason for Consultation tachycardia Referring Provider: CARLOS RODRIGUEZ MD Exam/Review of Systems Vital Signs Vitals Vital Signs Date Time Temp Pulse Resp B/P Pulse Ox O2 Delivery O2 Flow Rate FiO2 12/30/16 16:40 118 12/30/16 16:24 97.7 18 89/63 100 Intake and Output 12/29/16 12/29/16 12/30/16 15:00 23:00 07:00 Intake Total 900 ml 720 ml Output Total 800 ml 350 ml Balance 100 ml 370 ml Exam Review of Systems: CONSTITUTIONAL: No fevers, chills. PULMONARY: No sob CARDIOVASCULAR: No chest pain/palpitations GASTROINTESTINAL: No nausea/vomiting. GENITOURINARY: No hematuria/dysuria. MUSCULOSKELETAL: No myagias/arthalgias. PSYCHIATRIC: anxiety NEUROLOGIC: No h/o cva Constitutional: alert Head: normocephalic ENMT: mucosa pink and moist Neck: jvd (8 cm water), supple Respiratory: diminished breath sounds (at bases/B) Cardiovascular: other (tachycardic, regular rhythm) Gastrointestinal: non-tender, soft Musculoskeletal: muscle tone (normal) Extremities: edema (none) 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: other (No focal deficits) Results Result Diagram: 12/30/16 0715 12/30/16 0715 Results 24 hrs Laboratory Tests Test 12/30/16 07:15 White Blood Count 14.5 #H Red Blood Count 4.01 L Hemoglobin 12.4 Hematocrit 36.1 L Mean Corpuscular Volume 90.0 Mean Corpuscular Hemoglobin 30.9 Mean Corpuscular Hemoglobin Concent 34.3 Red Cell Distribution Width 12.8 Platelet Count 578 #H Mean Platelet Volume 9.3 Neutrophils % 80.0 H Lymphocytes % 8.5 L Monocytes % 4.8 Eosinophils % 5.0 Basophils % 0.5 Nucleated Red Blood Cells % 0.0 Neutrophils # 11.6 H Lymphocytes # 1.2 Monocytes # 0.7 Eosinophils # 0.7 H Basophils # 0.1 Nucleated Red Blood Cells # 0.0 Sodium Level 130 L Potassium Level 6.1 *H Chloride Level 99 Carbon Dioxide Level 16 L Anion Gap 21 H Blood Urea Nitrogen 46 #H Creatinine 1.08 H Glucose Level 109 Calcium Level 10.8 H Medications Medications Current Medications Ondansetron HCl (Zofran Inj) 4 mg Q6H PRN IV NAUSEA AND/OR VOMITING Last administered on 12/22/16 21:10; Admin Dose 4 MG; Start 12/17/16 at 13:00 Morphine Sulfate (morphine) 1 mg Q4H PRN IV PAIN LEVEL 7-10; Start 12/17/16 at 13:00 Pantoprazole (Protonix Tab) 40 mg DAILY@06 PO Last administered on 12/30/16 05 :17; Admin Dose 40 MG; Start 12/18/16 at 06:00 Acetaminophen (Tylenol Tab) 500 mg Q4H PRN PO PAIN AND OR ELEVATED TEMP; Start 12/17/16 at 22:30 Albuterol (Ventolin Hfa) 2 puff Q4H PRN INH WHEEZING AND SOB; Start 12/17/16 at 22:30 Folic Acid (Folic Acid) 1 mg DAILY PO Last administered on 12/30/16 08:57; Admin Dose 1 MG; Start 12/18/16 at 09:00 Hydroxyzine Pamoate (Vistaril) 25 mg QHS PRN PO ITCHING Last administered on 23:32; Admin Dose 25 MG; Start 12/17/16 at 22:30 Magnesium Chloride (Mag 64) 64 mg BID PO Last administered on 12/30/16 08:58; Admin Dose 64 MG; Start 12/17/16 at 23:30 Midodrine (Proamatine) 2.5 mg BID@09,17 PRN PO SBP <90 Last administered on 17:50; Admin Dose 2.5 MG; Start 12/17/16 at 22:30 Famotidine (Pepcid) 20 mg Q24H PO Last administered on 12/29/16 21:49; Admin Dose 20 MG; Start 12/17/16 at 22:30 Mupirocin (Bactroban) 1 applic BID TOP Last administered on 12/30/16 08:59; Admin Dose 1 APPLIC; Start 12/19/16 at 21:00 Simethicone (Mylicon) 80 mg BID PRN PO DISTENSION/GAS/BLOATING Last administered on 12/26/16 09:09; Admin Dose 80 MG; Start 12/22/16 at 14:00 Metoprolol Tartrate 5 mg 5 mg Q4H PRN IV HR>110 Hold SBP<100; Start 12/26/16 at 18:00 Vancomycin HCl (Vancocin) 100 ml @ 100 mls/hr Q12H IVPB Last administered on 18:05; Admin Dose 100 MLS/HR; Start 12/28/16 at 05:00 Metoprolol Tartrate (Lopressor) 25 mg BID PO Last administered on 12/29/16 13: 30; Admin Dose 25 MG; Start 12/29/16 at 13:30 Miscellaneous Information 1 ONCE ONCE XX ; Start 12/31/16 at 16:00; Stop at 16:01 Sodium Bicarbonate/ Dextrose (Na Bicarb/D5W) 1,100 ml @ 75 mls/hr [id number] IV ; Start 12/30/16 at 19:00; Stop 01/01/17 at 00:19 ANGEL JARAMILLO Dec 30, 2016 19:32
[2016-12-30] MEDS: SODIUM BICARBONATE (IV ADD) 100 MEQ in DEXTROSE 5% 1,000 ML IV SCH (19:52)
[2016-12-30] MEDS: ATENOLOL 25 MG TAB NGT SCH (19:57)
[2016-12-30] MEDS ORDERED: DIGOXIN 500 MCG INJ IV ONE (20:00)
[2016-12-30] MEDS: FAMOTIDINE 20 MG TAB PO SCH (22:54)
[2016-12-30] MEDS: ONDANSETRON 4 MG INJ IV PRN (23:14)
[2016-12-31] VITALS (11 sets, daily range): BP systolic 89–116; BP diastolic 51–60; PULSE 97–130; RESP 18–20
[2016-12-31] MEDS: VANCOMYCIN 500MG/NS (PMX) 100 ML IVPB SCH (04:40)
[2016-12-31] MEDS: PANTOPRAZOLE (EC) 40 MG TAB PO SCH (06:26)
[2016-12-31 07:09] LABS: ADD SCAN DIFF NO
[2016-12-31 07:19] LABS: BASOPHIL # 0.1 10^3/ul (0.0-0.1); BASOPHILS % 0.4 % (0.0-2.0); EOSINOPHILS # 0.5 10^3/ul (0.0-0.5); EOSINOPHILS % 2.8 % (0.0-7.0); HEMATOCRIT 33.2 % (37.0-47.0); HEMOGLOBIN 11.8 g/dl (12.0-16.0); LYMPHOCYTES # 1.1 10^3/ul (0.8-2.9); LYMPHOCYTES % 6.6 % (15.0-51.0); MEAN CORPUSCULAR HEMOGLOBIN 31.5 pg (29.0-33.0); MEAN CORPUSCULAR HGB CONC 35.5 g/dl (32.0-37.0); MEAN CORPUSCULAR VOLUME 88.5 fl (82.0-101.0); MEAN PLATELET VOLUME 9.4 fl (7.4-10.4); MONOCYTE # 0.9 10^3/ul (0.3-0.9); MONOCYTES % 5.5 % (0.0-11.0); NEUTROPHIL # 13.6 10^3/ul (1.6-7.5); NEUTROPHILS % 83.5 % (39.0-77.0); PLATELET COUNT 548 10^3/UL (140-415); RED BLOOD COUNT 3.75 10^6/ul (4.20-5.40); RED CELL DISTRIBUTION WIDTH 12.7 % (11.5-14.5); WHITE BLOOD COUNT 16.3 10^3/ul (4.8-10.8)
[2016-12-31 07:50] LABS: CREATININE 1.48 mg/dl (0.44-1.00)
--- NOTE | 2016-12-31 08:10 | CONS ---
Date/Time of Note Date/Time of Note DATE: 12/31/16 TIME: 08:08 Assessment/Plan Assessment/Plan Additional Assessment/Plan 1. Tachyarrhythmia at this time, most consistent with sinus tachycardia.- overall improved intially after IVF/midodrine BP support/digoxin/NL TSH/FT4. NL EF by echo. Having recurrent tachycardia - now in sinus, rate controlled 2. Hypotension, borderline and labile.-on midodrin- Rx as needed 3. Abnormal electrocardiogram with nonspecific ST-T abnormalities, assess for acute coronary syndrome.NL EF by echo this admit/negative trop 4. History of Hirschsprung disease. 5. Possible anxiety- noted. 6. Acidosis. 7. Improved renal failure - OK to hydrate as needed 8. Status post ileostomy. 9.Bacteremia-by blood cultures Consultation Date/Type/Reason Admit Date/Time Dec 17, 2016 at 08:55 Initial Consult Date Type of Consultation: cardiology Referring Provider: CARLOS RODRIGUEZ MD 24 HR Interval Summary Free Text/Dictation NO acute events - BP in good range - NO CP, doubt ischemia. ROS: No fever, no chills, no nausea, no vomiting, no diarrhea/constipation No recent weight changes No chest pain, no PND, no orthopnea No dizziness, blurred vision No thirst, no heat or cold intolerance Exam/Review of Systems Vital Signs Vitals Vital Signs Date Time Temp Pulse Resp B/P Pulse Ox O2 Delivery O2 Flow Rate FiO2 12/31/16 04:02 98.1 102 19 97/54 100 Exam General: WN/WD/NAD, AOx 3 HEENT: Unicetric/atraumatic/EOMI (follow commands) NECK: JVD elevated, no thyromegaly Lymph: no lymphadenopathy HEART: regular with no S3, II/ systolic murmur at apex LUNGS: Coarse sounds ABD: soft, NT, ND, +BS : Intact Neuro: non focal SKIN: chronic changes EXT: trace edema Results Result Diagram: 12/31/16 0636 12/31/16 0636 Results 24 hrs Laboratory Tests Test 12/31/16 06:36 White Blood Count 16.3 H Red Blood Count 3.75 L Hemoglobin 11.8 L Hematocrit 33.2 L Mean Corpuscular Volume 88.5 Mean Corpuscular Hemoglobin 31.5 Mean Corpuscular Hemoglobin Concent 35.5 Red Cell Distribution Width 12.7 Platelet Count 548 H Mean Platelet Volume 9.4 Neutrophils % 83.5 H Lymphocytes % 6.6 L Monocytes % 5.5 Eosinophils % 2.8 Basophils % 0.4 Nucleated Red Blood Cells % 0.0 Neutrophils # 13.6 H Lymphocytes # 1.1 Monocytes # 0.9 Eosinophils # 0.5 Basophils # 0.1 Nucleated Red Blood Cells # 0.0 Sodium Level 126 L Potassium Level 5.0 Chloride Level 89 #L Carbon Dioxide Level 23 Anion Gap 19 H Blood Urea Nitrogen 53 H Creatinine 1.48 H Glucose Level 110 Calcium Level 10.0 Medications Medications Current Medications Ondansetron HCl (Zofran Inj) 4 mg Q6H PRN IV NAUSEA AND/OR VOMITING Last administered on 12/30/16 23:14; Admin Dose 4 MG; Start 12/17/16 at 13:00 Morphine Sulfate (morphine) 1 mg Q4H PRN IV PAIN LEVEL 7-10; Start 12/17/16 at 13:00 Pantoprazole (Protonix Tab) 40 mg DAILY@06 PO Last administered on 12/31/16 06 :26; Admin Dose 40 MG; Start 12/18/16 at 06:00 Acetaminophen (Tylenol Tab) 500 mg Q4H PRN PO PAIN AND OR ELEVATED TEMP; Start 12/17/16 at 22:30 Albuterol (Ventolin Hfa) 2 puff Q4H PRN INH WHEEZING AND SOB; Start 12/17/16 at 22:30 Folic Acid (Folic Acid) 1 mg DAILY PO Last administered on 12/30/16 08:57; Admin Dose 1 MG; Start 12/18/16 at 09:00 Hydroxyzine Pamoate (Vistaril) 25 mg QHS PRN PO ITCHING Last administered on 23:32; Admin Dose 25 MG; Start 12/17/16 at 22:30 Magnesium Chloride (Mag 64) 64 mg BID PO Last administered on 12/30/16 19:52; Admin Dose 64 MG; Start 12/17/16 at 23:30 Famotidine (Pepcid) 20 mg Q24H PO Last administered on 12/30/16 22:54; Admin Dose 20 MG; Start 12/17/16 at 22:30 Mupirocin (Bactroban) 1 applic BID TOP Last administered on 12/30/16 20:00; Admin Dose 1 APPLIC; Start 12/19/16 at 21:00 Simethicone (Mylicon) 80 mg BID PRN PO DISTENSION/GAS/BLOATING Last administered on 12/26/16 09:09; Admin Dose 80 MG; Start 12/22/16 at 14:00 Metoprolol Tartrate 5 mg 5 mg Q4H PRN IV HR>110 Hold SBP<100; Start 12/26/16 at 18:00 Vancomycin HCl (Vancocin) 100 ml @ 100 mls/hr Q12H IVPB Last administered on 04:40; Admin Dose 100 MLS/HR; Start 12/28/16 at 05:00 Miscellaneous Information 1 ONCE ONCE XX ; Start 12/31/16 at 16:00; Stop at 16:01 Sodium Bicarbonate/ Dextrose (Na Bicarb/D5W) 1,100 ml @ 75 mls/hr [id number] IV Last administered on 12/30/16 19:52; Admin Dose 75 MLS/HR; Start 12/30/16 at 19 :00; Stop 01/01/17 at 00:19 Midodrine (Proamatine) 5 mg Q8 PRN PO SBP <95; Start 12/30/16 at 22:00 Atenolol (Tenormin) 12.5 mg BID NGT ; Start 12/30/16 at 21:00 IRENE MADERA MD Dec 31, 2016 08:09
[2016-12-31] MEDS: ATENOLOL 25 MG TAB NGT SCH ×2 (09:00→20:12)
[2016-12-31] MEDS: FOLIC ACID 1 MG TAB PO SCH (09:20)
[2016-12-31] MEDS: hydrOXYzine PAMOATE 25 MG CAP PO PRN (09:20)
[2016-12-31] MEDS: MAGNESIUM CHLORIDE (SR) 64 MG TAB PO SCH ×2 (09:20→20:11)
[2016-12-31] MEDS: MUPIROCIN 2% 22 GM OINT TOP SCH ×2 (09:22→20:14)
--- NOTE | 2016-12-31 14:27 | PN ---
Date/Time of Note Date/Time of Note DATE: 12/31/16 TIME: 14:25 Assessment/Plan VTE Prophylaxis VTE Prophylaxis Intervention: SCD's Lines/Catheters IV Catheter Type (from [facility]): port-a-cath Urinary Cath still in place: No Assessment/Plan Chief Complaint/Hosp Course Patient remains afebrile, borderline blood pressure, tachycardic. ASSESSMENT AND PLAN: - Possible sepsis with staph bacteremia, continue vancomycin, Dr. Ba is following an infection disease consultation. Patient is undergoing a nuclear WBC scan. - Metabolic acidosis, continue IV fluids with bicarb, Dr. Spain is following in nephrology consultation. - Intractable nausea and vomiting, resolved. Dr. Mendez is following in gastroenterology consultation. - Acute kidney injury. Dr. Spain is following in nephrology consultation. Continue IV fluids monitor electrolytes. - Hirschsprung disease. - Ileostomy. Further recommendations based on clinical course. Plan of care discussed with Dr. Paez. Problems: Exam/Review of Systems Vital Signs Vitals Vital Signs Date Time Temp Pulse Resp B/P Pulse Ox O2 Delivery O2 Flow Rate FiO2 12/31/16 12:39 97 12/31/16 11:45 97.6 18 90/55 100 Exam Constitutional: alert, oriented Head: normocephalic Neck: supple Respiratory: normal air movement Cardiovascular: nl pulses Gastrointestinal: non-tender, other (Ileostomy), soft Musculoskeletal: nl gait and stance Extremities: normal pulses 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: BAR POINTER II-XII intact Additional Comments Right chest Port-A-Cath Results Result Diagram: 12/31/16 0636 12/31/16 0636 Results 24 hrs Laboratory Tests Test 12/31/16 06:36 White Blood Count 16.3 H Red Blood Count 3.75 L Hemoglobin 11.8 L Hematocrit 33.2 L Mean Corpuscular Volume 88.5 Mean Corpuscular Hemoglobin 31.5 Mean Corpuscular Hemoglobin Concent 35.5 Red Cell Distribution Width 12.7 Platelet Count 548 H Mean Platelet Volume 9.4 Neutrophils % 83.5 H Lymphocytes % 6.6 L Monocytes % 5.5 Eosinophils % 2.8 Basophils % 0.4 Nucleated Red Blood Cells % 0.0 Neutrophils # 13.6 H Lymphocytes # 1.1 Monocytes # 0.9 Eosinophils # 0.5 Basophils # 0.1 Nucleated Red Blood Cells # 0.0 Sodium Level 126 L Potassium Level 5.0 Chloride Level 89 #L Carbon Dioxide Level 23 Anion Gap 19 H Blood Urea Nitrogen 53 H Creatinine 1.48 H Glucose Level 110 Calcium Level 10.0 Medications Medications Current Medications Ondansetron HCl (Zofran Inj) 4 mg Q6H PRN IV NAUSEA AND/OR VOMITING Last administered on 12/30/16 23:14; Admin Dose 4 MG; Start 12/17/16 at 13:00 Morphine Sulfate (morphine) 1 mg Q4H PRN IV PAIN LEVEL 7-10; Start 12/17/16 at 13:00 Pantoprazole (Protonix Tab) 40 mg DAILY@06 PO Last administered on 12/31/16 06 :26; Admin Dose 40 MG; Start 12/18/16 at 06:00 Acetaminophen (Tylenol Tab) 500 mg Q4H PRN PO PAIN AND OR ELEVATED TEMP; Start 12/17/16 at 22:30 Albuterol (Ventolin Hfa) 2 puff Q4H PRN INH WHEEZING AND SOB; Start 12/17/16 at 22:30 Folic Acid (Folic Acid) 1 mg DAILY PO Last administered on 12/31/16 09:20; Admin Dose 1 MG; Start 12/18/16 at 09:00 Hydroxyzine Pamoate (Vistaril) 25 mg QHS PRN PO ITCHING Last administered on 09:20; Admin Dose 25 MG; Start 12/17/16 at 22:30 Magnesium Chloride (Mag 64) 64 mg BID PO Last administered on 12/31/16 09:20; Admin Dose 64 MG; Start 12/17/16 at 23:30 Famotidine (Pepcid) 20 mg Q24H PO Last administered on 12/30/16 22:54; Admin Dose 20 MG; Start 12/17/16 at 22:30 Mupirocin (Bactroban) 1 applic BID TOP Last administered on 12/31/16 09:22; Admin Dose 1 APPLIC; Start 12/19/16 at 21:00 Simethicone (Mylicon) 80 mg BID PRN PO DISTENSION/GAS/BLOATING Last administered on 12/26/16 09:09; Admin Dose 80 MG; Start 12/22/16 at 14:00 Metoprolol Tartrate 5 mg 5 mg Q4H PRN IV HR>110 Hold SBP<100; Start 12/26/16 at 18:00 Vancomycin HCl (Vancocin) 100 ml @ 100 mls/hr Q12H IVPB Last administered on 04:40; Admin Dose 100 MLS/HR; Start 12/28/16 at 05:00 Miscellaneous Information 1 ONCE ONCE XX ; Start 12/31/16 at 16:00; Stop at 16:01 Sodium Bicarbonate/ Dextrose (Na Bicarb/D5W) 1,100 ml @ 75 mls/hr [id number] IV Last administered on 12/30/16 19:52; Admin Dose 75 MLS/HR; Start 12/30/16 at 19 :00; Stop 01/01/17 at 00:19 Midodrine (Proamatine) 5 mg Q8 PRN PO SBP <95; Start 12/30/16 at 22:00 Atenolol (Tenormin) 12.5 mg BID NGT ; Start 12/30/16 at 21:00 ROMI ESPINO Dec 31, 2016 14:27
--- NOTE | 2016-12-31 16:09 | RADRPT ---
PROCEDURE: Indium-111 labeled white blood cell scan CLINICAL INDICATION: 41 -year-old patient with fever and leukocytosis. TECHNIQUE: Following the intravenous injection of 0.6 mCi of Indium-111 labeled white blood cells, whole body anterior and posterior planar images were obtained along with spot views of the chest an d abdomen 24 hours post injection. COMPARISON: No prior indium scans. FINDINGS: Mildly prominent uptake is seen in the mediastinum, which may be related to physiologic activity; in flammatory/infectious process cannot be entirely ruled out. No definite abnormal areas of increased activity are seen in the study, including visualized portion s of the head and neck, chest, abdomen, pelvis and upper and lower. Physiologic uptake is noted in the liver and spleen. IMPRESSION: 1. Low-level nonspecific increase in tracer uptake within the mediastinum possibly represent physio logic activity; inflammatory/infectious process cannot be entirely excluded. 2. No other definite abnormal areas of increased activity. RPTAT: HH .Monalisa Srinivasan MD, MD Date Time Electronically viewed and signed by .Monalisa Srinivasan MD, on 12/31/2016 16:09 .L/
[2016-12-31] MEDS: SODIUM BICARBONATE (IV ADD) 100 MEQ in DEXTROSE 5% 1,000 ML IV SCH (18:00)
--- NOTE | 2016-12-31 21:15 | CONS ---
Date/Time of Note Date/Time of Note DATE: 12/31/16 TIME: 21:12 Assessment/Plan Assessment/Plan Additional Assessment/Plan 1. Acute kidney injury secondary to severe prerenal azotemia secondary to nausea, vomiting and decreased p.o. intake. 2. Hyponatremia with a sodium of 128 secondary to hypovolemic hyponatremia. 4. Hyperkalemia secondary to worsening acute kidney injury and renal failure.- inow improved 5. Metabolic acidosis with bicarbonate of 16 secondary to increased ileostomy output.- now becomes severe with PH low on ABG - started on HCO3 drip on 12/24/16 PLAN: Na dropped to 126, HCo3 improving, on sodium bicarbonate drip x 2 liter then stop Renally dose all abx, monitor Cr with IV abx, I am worried about it received Kayexalate yesteday, today K normal will follow up Consultation Date/Type/Reason Admit Date/Time Dec 17, 2016 at 08:55 Initial Consult Date Dec Type of Consultation: NEPHROLOGY Referring Provider: CARLOS RODRIGUEZ MD 24 HR Interval Summary Free Text/Dictation Na 126, Cr bumped to 1.48, BP stable Exam/Review of Systems Vital Signs Vitals Vital Signs Date Time Temp Pulse Resp B/P Pulse Ox O2 Delivery O2 Flow Rate FiO2 12/31/16 20:32 119 12/31/16 19:56 98.0 19 105/55 100 Exam Constitutional: alert, oriented Head: normocephalic Neck: supple Respiratory: normal air movement Cardiovascular: nl pulses Gastrointestinal: non-tender, other (Ileostomy), soft Musculoskeletal: nl gait and stance Extremities: normal pulses 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: NETWORK DEVELOPMENT COORDINATOR II-XII intact Results Result Diagram: 12/31/16 0636 12/31/16 0636 Results 24 hrs Laboratory Tests Test 12/31/16 06:36 12/31/16 16:10 White Blood Count 16.3 H Red Blood Count 3.75 L Hemoglobin 11.8 L Hematocrit 33.2 L Mean Corpuscular Volume 88.5 Mean Corpuscular Hemoglobin 31.5 Mean Corpuscular Hemoglobin Concent 35.5 Red Cell Distribution Width 12.7 Platelet Count 548 H Mean Platelet Volume 9.4 Neutrophils % 83.5 H Lymphocytes % 6.6 L Monocytes % 5.5 Eosinophils % 2.8 Basophils % 0.4 Nucleated Red Blood Cells % 0.0 Neutrophils # 13.6 H Lymphocytes # 1.1 Monocytes # 0.9 Eosinophils # 0.5 Basophils # 0.1 Nucleated Red Blood Cells # 0.0 Sodium Level 126 L Potassium Level 5.0 Chloride Level 89 #L Carbon Dioxide Level 23 Anion Gap 19 H Blood Urea Nitrogen 53 H Creatinine 1.48 H Glucose Level 110 Calcium Level 10.0 Vancomycin Level Trough 22.8 *H Medications Medications Current Medications Ondansetron HCl (Zofran Inj) 4 mg Q6H PRN IV NAUSEA AND/OR VOMITING Last administered on 12/30/16 23:14; Admin Dose 4 MG; Start 12/17/16 at 13:00 Morphine Sulfate (morphine) 1 mg Q4H PRN IV PAIN LEVEL 7-10; Start 12/17/16 at 13:00 Pantoprazole (Protonix Tab) 40 mg DAILY@06 PO Last administered on 12/31/16 06 :26; Admin Dose 40 MG; Start 12/18/16 at 06:00 Acetaminophen (Tylenol Tab) 500 mg Q4H PRN PO PAIN AND OR ELEVATED TEMP; Start 12/17/16 at 22:30 Albuterol (Ventolin Hfa) 2 puff Q4H PRN INH WHEEZING AND SOB; Start 12/17/16 at 22:30 Folic Acid (Folic Acid) 1 mg DAILY PO Last administered on 12/31/16 09:20; Admin Dose 1 MG; Start 12/18/16 at 09:00 Hydroxyzine Pamoate (Vistaril) 25 mg QHS PRN PO ITCHING Last administered on 09:20; Admin Dose 25 MG; Start 12/17/16 at 22:30 Magnesium Chloride (Mag 64) 64 mg BID PO Last administered on 12/31/16 20:11; Admin Dose 64 MG; Start 12/17/16 at 23:30 Famotidine (Pepcid) 20 mg Q24H PO Last administered on 12/30/16 22:54; Admin Dose 20 MG; Start 12/17/16 at 22:30 Mupirocin (Bactroban) 1 applic BID TOP Last administered on 12/31/16 20:14; Admin Dose 1 APPLIC; Start 12/19/16 at 21:00 Simethicone (Mylicon) 80 mg BID PRN PO DISTENSION/GAS/BLOATING Last administered on 12/26/16 09:09; Admin Dose 80 MG; Start 12/22/16 at 14:00 Metoprolol Tartrate 5 mg 5 mg Q4H PRN IV HR>110 Hold SBP<100; Start 12/26/16 at 18:00 Sodium Bicarbonate/ Dextrose (Na Bicarb/D5W) 1,100 ml @ 75 mls/hr [id number] IV Last administered on 12/31/16 18:00; Admin Dose 75 MLS/HR; Start 12/30/16 at 19 :00; Stop 01/01/17 at 00:19 Midodrine (Proamatine) 5 mg Q8 PRN PO SBP <95; Start 12/30/16 at 22:00 Atenolol 12.5 mg 12.5 mg BID NGT Last administered on 12/31/16 20:12; Admin Dose 12.5 MG; Start 12/30/16 at 21:00 Vancomycin HCl/ Sodium Chloride (Vancocin/NS) 150 ml @ 75 mls/hr Q24H IVPB ; Start 01/01/17 at 02:00 ROHAN VELÁZQUEZ MD Dec 31, 2016 21:15
[2016-12-31] MEDS: FAMOTIDINE 20 MG TAB PO SCH (22:00)
[2017-01-01] VITALS (13 sets, daily range): BP systolic 85–106; BP diastolic 44–58; PULSE 93–120; RESP 18–20
[2017-01-01] MEDS: VANCOMYCIN 750 MG in SOD CHLORIDE 0.9% 150 ML IVPB SCH (02:01)
[2017-01-01] MEDS: PANTOPRAZOLE (EC) 40 MG TAB PO SCH (05:36)
[2017-01-01 07:28] LABS: ADD SCAN DIFF NO
[2017-01-01 07:45] LABS: BASOPHIL # 0.1 10^3/ul (0.0-0.1); BASOPHILS % 0.7 % (0.0-2.0); EOSINOPHILS # 0.3 10^3/ul (0.0-0.5); EOSINOPHILS % 3.7 % (0.0-7.0); HEMATOCRIT 23.9 % (37.0-47.0); HEMOGLOBIN 8.4 g/dl (12.0-16.0); LYMPHOCYTES # 0.7 10^3/ul (0.8-2.9); LYMPHOCYTES % 9.6 % (15.0-51.0); MEAN CORPUSCULAR HEMOGLOBIN 31.3 pg (29.0-33.0); MEAN CORPUSCULAR HGB CONC 35.1 g/dl (32.0-37.0); MEAN CORPUSCULAR VOLUME 89.2 fl (82.0-101.0); MEAN PLATELET VOLUME 9.6 fl (7.4-10.4); MONOCYTE # 0.6 10^3/ul (0.3-0.9); MONOCYTES % 8.1 % (0.0-11.0); NEUTROPHIL # 5.5 10^3/ul (1.6-7.5); NEUTROPHILS % 77.1 % (39.0-77.0); PLATELET COUNT 351 10^3/UL (140-415); RED BLOOD COUNT 2.68 10^6/ul (4.20-5.40); RED CELL DISTRIBUTION WIDTH 12.8 % (11.5-14.5); WHITE BLOOD COUNT 7.1 10^3/ul (4.8-10.8)
[2017-01-01 08:03] LABS: CALCIUM 8.1 mg/dl (8.4-10.2); CREATININE 1.04 mg/dl (0.44-1.00)
[2017-01-01] MEDS: FOLIC ACID 1 MG TAB PO SCH (08:43)
[2017-01-01] MEDS: MAGNESIUM CHLORIDE (SR) 64 MG TAB PO SCH ×2 (08:43→21:46)
[2017-01-01] MEDS: ATENOLOL 25 MG TAB NGT SCH ×2 (08:44→21:00)
[2017-01-01] MEDS: MUPIROCIN 2% 22 GM OINT TOP SCH ×2 (08:45→21:47)
--- NOTE | 2017-01-01 13:03 | CONS ---
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-) - low-level nonspecific increase in tracer uptake within the mediastinum on WBC tagged scan 12/31/2016 recommendations - pending results: blood cultures from 12/28/2016, 12/31/2016 - ordered non-contrast chest CT to evaluate the mediastinum - continue IV vancomycin (12/27/2016-); duration to be determined based on chest CT result management d/w Pt and her RN Problems: Consultation Date/Type/Reason Admit Date/Time Dec 17, 2016 at 08:55 Type of Consultation: ID Referring Provider: CARLOS RODRIGUEZ MD 24 HR Interval Summary Constitutional: no complaints Detailed Summary Eyes: no complaints ENT: no complaints Respiratory: no complaints Cardiovascular: no complaints Gastrointestinal: no complaints, other (+colostomy) Genitourinary: no complaints Musculoskeletal: no complaints Skin: no complaints Neurologic: no complaints Exam/Review of Systems Vital Signs Vitals Vital Signs Date Time Temp Pulse Resp B/P Pulse Ox O2 Delivery O2 Flow Rate FiO2 01/01/17 12:30 107 01/01/17 12:04 98.6 18 96/55 100 Intake and Output 12/31/16 12/31/16 01/01/17 14:59 22:59 06:59 Intake Total 1500 ml 800 ml Balance 1500 ml 800 ml Exam Constitutional: frail Psych: nl mood/affect, no complaints Head: atraumatic, normocephalic Eyes: nl conjunctiva, nl lids ENMT: nl external ears & nose, nl nasal mucosa & septum Neck: supple Respiratory: diminished breath sounds Cardiovascular: nl pulses, regular rate and rhythm Gastrointestinal: non-tender, other (+colostomy), soft Results Result Diagram: 01/01/17 0654 01/01/17 0654 Results 24 hrs Laboratory Tests Test 12/31/16 16:10 01/01/17 06:54 Vancomycin Level Trough 22.8 *H White Blood Count 7.1 # Red Blood Count 2.68 #L Hemoglobin 8.4 #L Hematocrit 23.9 #L Mean Corpuscular Volume 89.2 Mean Corpuscular Hemoglobin 31.3 Mean Corpuscular Hemoglobin Concent 35.1 Red Cell Distribution Width 12.8 Platelet Count 351 # Mean Platelet Volume 9.6 Neutrophils % 77.1 H Lymphocytes % 9.6 L Monocytes % 8.1 Eosinophils % 3.7 Basophils % 0.7 Nucleated Red Blood Cells % 0.0 Neutrophils # 5.5 Lymphocytes # 0.7 L Monocytes # 0.6 Eosinophils # 0.3 Basophils # 0.1 Nucleated Red Blood Cells # 0.0 Sodium Level 127 L Potassium Level 4.0 Chloride Level 82 L Carbon Dioxide Level 36 #H Anion Gap 13 Blood Urea Nitrogen 41 #H Creatinine 1.04 H Glucose Level 490 #*H Calcium Level 8.1 L Medications Medications Current Medications Ondansetron HCl (Zofran Inj) 4 mg Q6H PRN IV NAUSEA AND/OR VOMITING Last administered on 12/30/16 23:14; Admin Dose 4 MG; Start 12/17/16 at 13:00 Morphine Sulfate (morphine) 1 mg Q4H PRN IV PAIN LEVEL 7-10; Start 12/17/16 at 13:00 Pantoprazole (Protonix Tab) 40 mg DAILY@06 PO Last administered on 01/01/17 05 :36; Admin Dose 40 MG; Start 12/18/16 at 06:00 Acetaminophen (Tylenol Tab) 500 mg Q4H PRN PO PAIN AND OR ELEVATED TEMP; Start 12/17/16 at 22:30 Albuterol (Ventolin Hfa) 2 puff Q4H PRN INH WHEEZING AND SOB; Start 12/17/16 at 22:30 Folic Acid (Folic Acid) 1 mg DAILY PO Last administered on 01/01/17 08:43; Admin Dose 1 MG; Start 12/18/16 at 09:00 Hydroxyzine Pamoate (Vistaril) 25 mg QHS PRN PO ITCHING Last administered on 09:20; Admin Dose 25 MG; Start 12/17/16 at 22:30 Magnesium Chloride (Mag 64) 64 mg BID PO Last administered on 01/01/17 08:43; Admin Dose 64 MG; Start 12/17/16 at 23:30 Famotidine (Pepcid) 20 mg Q24H PO Last administered on 12/31/16 22:00; Admin Dose 20 MG; Start 12/17/16 at 22:30 Mupirocin (Bactroban) 1 applic BID TOP Last administered on 01/01/17 08:45; Admin Dose 1 APPLIC; Start 12/19/16 at 21:00 Simethicone (Mylicon) 80 mg BID PRN PO DISTENSION/GAS/BLOATING Last administered on 01/01/17 08:44; Admin Dose 80 MG; Start 12/22/16 at 14:00 Metoprolol Tartrate (Lopressor) 5 mg Q4H PRN IV HR>110 Hold SBP<100; Start at 18:00 Midodrine (Proamatine) 5 mg Q8 PRN PO SBP <95; Start 12/30/16 at 22:00 Atenolol 12.5 mg 12.5 mg BID NGT Last administered on 12/31/16 20:12; Admin Dose 12.5 MG; Start 12/30/16 at 21:00 Vancomycin HCl/ Sodium Chloride (Vancocin/NS) 150 ml @ 75 mls/hr Q24H IVPB Last administered on 01/01/17 02:01; Admin Dose 75 MLS/HR; Start 01/01/17 at 02 :00 TAWANDA FINK M.D. Jan 01, 2017 13:03
--- NOTE | 2017-01-01 15:03 | RADRPT ---
PROCEDURE: CT Chest without contrast. CLINICAL INDICATION: Pneumonia. TECHNIQUE: Multiple contiguous helical CT images of the chest were obtained without the administra tion of intravenous contrast. Coronal and sagittal reformatted images were obtained from the source images. CTDIvol (mGy): 3.19; Total Exam DLP (mGy-cm): 118.32. One or more of the following dose reduction techniques were utilized: - Automated exposure control. - Adjustment of the mA and/or kV according to patient size. - Use of iterative reconstruction technique. COMPARISON: Chest x-ray 12/23/2016. Indium scan 12/31/2016. FINDINGS: Limited imaging of the lower neck is unremarkable. The heart is not enlarged. There is no pericardial effusion. There is no mediastinal, hilar or axi llary lymphadenopathy. The thoracic aorta is normal in caliber. The pulmonary arteries are not enl arged. A right-sided port terminates at the SVC/right atrial junction. There are no inflammatory ch anges of the mediastinum. A small focus of atelectasis is seen within the right lung base. The lungs are otherwise clear. Th ere is no pulmonary consolidation or pleural effusion. The tracheobronchial tree is normal in calib er. Limited imaging of the upper abdomen is unremarkable. Skeletal structures are unremarkable. Chest wall soft tissues are unremarkable. IMPRESSION: Small focus of atelectasis within the right lung base. Otherwise, unremarkable CT chest. RPTAT: [facility] .Huma Mazariegos MD, Date Time Electronically viewed and signed by .Huma Mazariegos MD, MD on 01/01/2017 15:02 .T/
--- NOTE | 2017-01-01 15:12 | CONS ---
Date/Time of Note Date/Time of Note DATE: 01/01/17 TIME: 15:10 Assessment/Plan Assessment/Plan Chief Complaint/Hosp Course IMPRESSION: 1. Tachyarrhythmia at this time, most consistent with sinus tachycardia.- overall improved intially after IVF/midodrine BP support/digoxin/NL TSH/FT4. NL EF by echo. Having some mild recurrent tachycardia 2. Hypotension, borderline and labile.-on midodrine 3. Abnormal electrocardiogram with nonspecific ST-T abnormalities, assess for acute coronary syndrome.NL EF by echo this admit/negative trop 4. History of Hirschsprung disease. 5. Possible anxiety. 6. Acidosis. 7. Renal failure. 8. Status post ileostomy. 9.Bacteremia-by blood cultures Recc: -Tele -continue midodrine BP support as necessary -BB as tolerated only -IVF bolus -Continue abx's and f/u cx data Problems: Consultation Date/Type/Reason Admit Date/Time Dec 17, 2016 at 08:55 Initial Consult Date 12/26/2016 Type of Consultation: Cardiology Reason for Consultation tachycardia/hypotension Referring Provider: CARLOS RODRIGUEZ MD Exam/Review of Systems Vital Signs Vitals Vital Signs Date Time Temp Pulse Resp B/P Pulse Ox O2 Delivery O2 Flow Rate FiO2 01/01/17 12:30 107 01/01/17 12:04 98.6 18 96/55 100 Intake and Output 12/31/16 12/31/16 01/01/17 15:00 23:00 07:00 Intake Total 1500 ml 800 ml Balance 1500 ml 800 ml Exam Review of Systems: CONSTITUTIONAL: No fevers, chills. PULMONARY: No sob CARDIOVASCULAR: No chest pain/palpitations GASTROINTESTINAL: No nausea/vomiting. GENITOURINARY: No hematuria/dysuria. MUSCULOSKELETAL: No myagias/arthalgias. PSYCHIATRIC: The patient denies depression. NEUROLOGIC: No weakness Constitutional: alert, oriented Psych: no complaints Head: normocephalic ENMT: mucosa pink and moist Neck: jvd (9 cm water), supple Respiratory: diminished breath sounds Cardiovascular: other (tachycardic, regular rhythm) Gastrointestinal: non-tender, soft Musculoskeletal: muscle tone (no focal deficits) Extremities: normal pulses 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: other (No focal deficits) Results Result Diagram: 01/01/17 0654 01/01/17 0654 Results 24 hrs Laboratory Tests Test 12/31/16 16:10 01/01/17 06:54 Vancomycin Level Trough 22.8 *H White Blood Count 7.1 # Red Blood Count 2.68 #L Hemoglobin 8.4 #L Hematocrit 23.9 #L Mean Corpuscular Volume 89.2 Mean Corpuscular Hemoglobin 31.3 Mean Corpuscular Hemoglobin Concent 35.1 Red Cell Distribution Width 12.8 Platelet Count 351 # Mean Platelet Volume 9.6 Neutrophils % 77.1 H Lymphocytes % 9.6 L Monocytes % 8.1 Eosinophils % 3.7 Basophils % 0.7 Nucleated Red Blood Cells % 0.0 Neutrophils # 5.5 Lymphocytes # 0.7 L Monocytes # 0.6 Eosinophils # 0.3 Basophils # 0.1 Nucleated Red Blood Cells # 0.0 Sodium Level 127 L Potassium Level 4.0 Chloride Level 82 L Carbon Dioxide Level 36 #H Anion Gap 13 Blood Urea Nitrogen 41 #H Creatinine 1.04 H Glucose Level 490 #*H Calcium Level 8.1 L Medications Medications Current Medications Ondansetron HCl (Zofran Inj) 4 mg Q6H PRN IV NAUSEA AND/OR VOMITING Last administered on 12/30/16 23:14; Admin Dose 4 MG; Start 12/17/16 at 13:00 Morphine Sulfate (morphine) 1 mg Q4H PRN IV PAIN LEVEL 7-10; Start 12/17/16 at 13:00 Pantoprazole (Protonix Tab) 40 mg DAILY@06 PO Last administered on 01/01/17 05 :36; Admin Dose 40 MG; Start 12/18/16 at 06:00 Acetaminophen (Tylenol Tab) 500 mg Q4H PRN PO PAIN AND OR ELEVATED TEMP; Start 12/17/16 at 22:30 Albuterol (Ventolin Hfa) 2 puff Q4H PRN INH WHEEZING AND SOB; Start 12/17/16 at 22:30 Folic Acid (Folic Acid) 1 mg DAILY PO Last administered on 01/01/17 08:43; Admin Dose 1 MG; Start 12/18/16 at 09:00 Hydroxyzine Pamoate (Vistaril) 25 mg QHS PRN PO ITCHING Last administered on 09:20; Admin Dose 25 MG; Start 12/17/16 at 22:30 Magnesium Chloride (Mag 64) 64 mg BID PO Last administered on 01/01/17 08:43; Admin Dose 64 MG; Start 12/17/16 at 23:30 Famotidine (Pepcid) 20 mg Q24H PO Last administered on 12/31/16 22:00; Admin Dose 20 MG; Start 12/17/16 at 22:30 Mupirocin (Bactroban) 1 applic BID TOP Last administered on 01/01/17 08:45; Admin Dose 1 APPLIC; Start 12/19/16 at 21:00 Simethicone (Mylicon) 80 mg BID PRN PO DISTENSION/GAS/BLOATING Last administered on 01/01/17 08:44; Admin Dose 80 MG; Start 12/22/16 at 14:00 Metoprolol Tartrate (Lopressor) 5 mg Q4H PRN IV HR>110 Hold SBP<100; Start at 18:00 Midodrine (Proamatine) 5 mg Q8 PRN PO SBP <95; Start 12/30/16 at 22:00 Atenolol 12.5 mg 12.5 mg BID NGT Last administered on 12/31/16 20:12; Admin Dose 12.5 MG; Start 12/30/16 at 21:00 Vancomycin HCl/ Sodium Chloride (Vancocin/NS) 150 ml @ 75 mls/hr Q24H IVPB Last administered on 01/01/17 02:01; Admin Dose 75 MLS/HR; Start 01/01/17 at 02 :00 ANGEL JARAMILLO Jan 01, 2017 15:12
[2017-01-01] MEDS ORDERED: SOD CHLORIDE 0.9% 500 ML IV ONE (15:30)
--- NOTE | 2017-01-01 16:36 | CONS ---
Date/Time of Note Date/Time of Note DATE: 01/01/17 TIME: 16:34 Assessment/Plan Assessment/Plan Additional Assessment/Plan 1. Acute kidney injury secondary to severe prerenal azotemia secondary to nausea, vomiting and decreased p.o. intake. 2. Hyponatremia with a sodium of 128 secondary to hypovolemic hyponatremia. 4. Hyperkalemia secondary to worsening acute kidney injury and renal failure.- inow improved 5. Metabolic acidosis with bicarbonate of 16 secondary to increased ileostomy output.- now becomes severe with PH low on ABG - started on HCO3 drip on 12/24/16 PLAN: stop bicarbonate drip Na low, Blood sugar high, will monitor HCO3 and electrolytes,possibly start Bicitra for acidosis if needed CT abomen+ pelvis has been ordered for today will follow up Consultation Date/Type/Reason Admit Date/Time Dec 17, 2016 at 08:55 Initial Consult Date Dec Type of Consultation: NEPHROLOGY Referring Provider: CARLOS RODRIGUEZ MD 24 HR Interval Summary Free Text/Dictation Na low, blood sugar very high, Bicarbonate drip stopped, BP stable, plan for CT abdomen+ pelvis today Exam/Review of Systems Vital Signs Vitals Vital Signs Date Time Temp Pulse Resp B/P Pulse Ox O2 Delivery O2 Flow Rate FiO2 01/01/17 16:20 119 01/01/17 15:51 97.9 20 91/52 100 Intake and Output 12/31/16 12/31/16 01/01/17 15:00 23:00 07:00 Intake Total 1500 ml 800 ml Balance 1500 ml 800 ml Exam Constitutional: alert, oriented Head: normocephalic Neck: supple Respiratory: normal air movement Cardiovascular: nl pulses Gastrointestinal: non-tender, other (Ileostomy), soft Musculoskeletal: nl gait and stance Extremities: normal pulses 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: AX SURVEY WORKER II-XII 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 Results Result Diagram: 01/01/17 0654 01/01/17 0654 Results 24 hrs Laboratory Tests Test 01/01/17 06:54 White Blood Count 7.1 # Red Blood Count 2.68 #L Hemoglobin 8.4 #L Hematocrit 23.9 #L Mean Corpuscular Volume 89.2 Mean Corpuscular Hemoglobin 31.3 Mean Corpuscular Hemoglobin Concent 35.1 Red Cell Distribution Width 12.8 Platelet Count 351 # Mean Platelet Volume 9.6 Neutrophils % 77.1 H Lymphocytes % 9.6 L Monocytes % 8.1 Eosinophils % 3.7 Basophils % 0.7 Nucleated Red Blood Cells % 0.0 Neutrophils # 5.5 Lymphocytes # 0.7 L Monocytes # 0.6 Eosinophils # 0.3 Basophils # 0.1 Nucleated Red Blood Cells # 0.0 Sodium Level 127 L Potassium Level 4.0 Chloride Level 82 L Carbon Dioxide Level 36 #H Anion Gap 13 Blood Urea Nitrogen 41 #H Creatinine 1.04 H Glucose Level 490 #*H Calcium Level 8.1 L Medications Medications Current Medications Ondansetron HCl (Zofran Inj) 4 mg Q6H PRN IV NAUSEA AND/OR VOMITING Last administered on 12/30/16 23:14; Admin Dose 4 MG; Start 12/17/16 at 13:00 Morphine Sulfate (morphine) 1 mg Q4H PRN IV PAIN LEVEL 7-10; Start 12/17/16 at 13:00 Pantoprazole (Protonix Tab) 40 mg DAILY@06 PO Last administered on 01/01/17 05 :36; Admin Dose 40 MG; Start 12/18/16 at 06:00 Acetaminophen (Tylenol Tab) 500 mg Q4H PRN PO PAIN AND OR ELEVATED TEMP; Start 12/17/16 at 22:30 Albuterol (Ventolin Hfa) 2 puff Q4H PRN INH WHEEZING AND SOB; Start 12/17/16 at 22:30 Folic Acid (Folic Acid) 1 mg DAILY PO Last administered on 01/01/17 08:43; Admin Dose 1 MG; Start 12/18/16 at 09:00 Hydroxyzine Pamoate (Vistaril) 25 mg QHS PRN PO ITCHING Last administered on 09:20; Admin Dose 25 MG; Start 12/17/16 at 22:30 Magnesium Chloride (Mag 64) 64 mg BID PO Last administered on 01/01/17 08:43; Admin Dose 64 MG; Start 12/17/16 at 23:30 Famotidine (Pepcid) 20 mg Q24H PO Last administered on 12/31/16 22:00; Admin Dose 20 MG; Start 12/17/16 at 22:30 Mupirocin (Bactroban) 1 applic BID TOP Last administered on 01/01/17 08:45; Admin Dose 1 APPLIC; Start 12/19/16 at 21:00 Simethicone (Mylicon) 80 mg BID PRN PO DISTENSION/GAS/BLOATING Last administered on 01/01/17 08:44; Admin Dose 80 MG; Start 12/22/16 at 14:00 Metoprolol Tartrate (Lopressor) 5 mg Q4H PRN IV HR>110 Hold SBP<100; Start at 18:00 Midodrine (Proamatine) 5 mg Q8 PRN PO SBP <95; Start 12/30/16 at 22:00 Atenolol 12.5 mg 12.5 mg BID NGT Last administered on 12/31/16 20:12; Admin Dose 12.5 MG; Start 12/30/16 at 21:00 Vancomycin HCl/ Sodium Chloride (Vancocin/NS) 150 ml @ 75 mls/hr Q24H IVPB Last administered on 01/01/17 02:01; Admin Dose 75 MLS/HR; Start 01/01/17 at 02 :00 ROHAN VELÁZQUEZ MD Jan 01, 2017 16:36
--- NOTE | 2017-01-01 18:02 | PN ---
Date/Time of Note Date/Time of Note DATE: 01/01/17 TIME: 17:59 Assessment/Plan VTE Prophylaxis VTE Prophylaxis Intervention: SCD's Lines/Catheters IV [facility]ter [facility]from [facility] PORT-A-CATH Urinary Cath still in place: No Assessment/Plan Chief Complaint/Hosp Course No acute events overnight, patient remains afebrile tachycardic, pending CT of the abdomen, patient has hyperglycemia status post bicarbonate drip. Denies any nausea vomiting. ASSESSMENT AND PLAN: - Possible sepsis with staph bacteremia, continue vancomycin, Dr. Ba is following an infection disease consultation. Patient is undergoing a nuclear WBC scan. - Metabolic acidosis, continue IV fluids with bicarb, Dr. Spain is following in nephrology consultation. - Intractable nausea and vomiting, resolved. Dr. Mendez is following in gastroenterology consultation. - Acute kidney injury. Dr. Spain is following in nephrology consultation. Continue IV fluids monitor electrolytes. - Hirschsprung disease. - Ileostomy. Further recommendations based on clinical course. Plan of care discussed with Dr. Paez. 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 Additional Comments Right chest Port-A-Cath Results Result Diagram: 01/01/17 0654 01/01/17 0654 Results 24 hrs Laboratory Tests Test 01/01/17 06:54 White Blood Count 7.1 # Red Blood Count 2.68 #L Hemoglobin 8.4 #L Hematocrit 23.9 #L Mean Corpuscular Volume 89.2 Mean Corpuscular Hemoglobin 31.3 Mean Corpuscular Hemoglobin Concent 35.1 Red Cell Distribution Width 12.8 Platelet Count 351 # Mean Platelet Volume 9.6 Neutrophils % 77.1 H Lymphocytes % 9.6 L Monocytes % 8.1 Eosinophils % 3.7 Basophils % 0.7 Nucleated Red Blood Cells % 0.0 Neutrophils # 5.5 Lymphocytes # 0.7 L Monocytes # 0.6 Eosinophils # 0.3 Basophils # 0.1 Nucleated Red Blood Cells # 0.0 Sodium Level 127 L Potassium Level 4.0 Chloride Level 82 L Carbon Dioxide Level 36 #H Anion Gap 13 Blood Urea Nitrogen 41 #H Creatinine 1.04 H Glucose Level 490 #*H Calcium Level 8.1 L Medications Medications Current Medications Ondansetron HCl (Zofran Inj) 4 mg Q6H PRN IV NAUSEA AND/OR VOMITING Last administered on 12/30/16 23:14; Admin Dose 4 MG; Start 12/17/16 at 13:00 Morphine Sulfate (morphine) 1 mg Q4H PRN IV PAIN LEVEL 7-10; Start 12/17/16 at 13:00 Pantoprazole (Protonix Tab) 40 mg DAILY@06 PO Last administered on 01/01/17 05 :36; Admin Dose 40 MG; Start 12/18/16 at 06:00 Acetaminophen (Tylenol Tab) 500 mg Q4H PRN PO PAIN AND OR ELEVATED TEMP; Start 12/17/16 at 22:30 Albuterol (Ventolin Hfa) 2 puff Q4H PRN INH WHEEZING AND SOB; Start 12/17/16 at 22:30 Folic Acid (Folic Acid) 1 mg DAILY PO Last administered on 01/01/17 08:43; Admin Dose 1 MG; Start 12/18/16 at 09:00 Hydroxyzine Pamoate (Vistaril) 25 mg QHS PRN PO ITCHING Last administered on 09:20; Admin Dose 25 MG; Start 12/17/16 at 22:30 Magnesium Chloride (Mag 64) 64 mg BID PO Last administered on 01/01/17 08:43; Admin Dose 64 MG; Start 12/17/16 at 23:30 Famotidine (Pepcid) 20 mg Q24H PO Last administered on 12/31/16 22:00; Admin Dose 20 MG; Start 12/17/16 at 22:30 Mupirocin (Bactroban) 1 applic BID TOP Last administered on 01/01/17 08:45; Admin Dose 1 APPLIC; Start 12/19/16 at 21:00 Simethicone (Mylicon) 80 mg BID PRN PO DISTENSION/GAS/BLOATING Last administered on 01/01/17 08:44; Admin Dose 80 MG; Start 12/22/16 at 14:00 Metoprolol Tartrate (Lopressor) 5 mg Q4H PRN IV HR>110 Hold SBP<100; Start at 18:00 Midodrine (Proamatine) 5 mg Q8 PRN PO SBP <95; Start 12/30/16 at 22:00 Atenolol 12.5 mg 12.5 mg BID NGT Last administered on 12/31/16 20:12; Admin Dose 12.5 MG; Start 12/30/16 at 21:00 Vancomycin HCl/ Sodium Chloride (Vancocin/NS) 150 ml @ 75 mls/hr Q24H IVPB Last administered on 01/01/17 02:01; Admin Dose 75 MLS/HR; Start 01/01/17 at 02 :00 ROMI ESPINO Jan 01, 2017 18:02
[2017-01-01] MEDS: FAMOTIDINE 20 MG TAB PO SCH (21:46)
[2017-01-02] VITALS (11 sets, daily range): BP systolic 91–100; BP diastolic 54–59; PULSE 84–124; RESP 16–19
[2017-01-02] MEDS: hydrOXYzine PAMOATE 25 MG CAP PO PRN (02:39)
[2017-01-02] MEDS: VANCOMYCIN 750 MG in SOD CHLORIDE 0.9% 150 ML IVPB SCH ×2 (02:40→02:57)
[2017-01-02] MEDS: PANTOPRAZOLE (EC) 40 MG TAB PO SCH (06:05)
[2017-01-02 08:00] LABS: ADD SCAN DIFF NO
[2017-01-02 08:21] LABS: BASOPHIL # 0.1 10^3/ul (0.0-0.1); BASOPHILS % 0.5 % (0.0-2.0); EOSINOPHILS # 0.5 10^3/ul (0.0-0.5); EOSINOPHILS % 5.1 % (0.0-7.0); HEMATOCRIT 25.3 % (37.0-47.0); HEMOGLOBIN 8.7 g/dl (12.0-16.0); LYMPHOCYTES # 0.6 10^3/ul (0.8-2.9); LYMPHOCYTES % 6.1 % (15.0-51.0); MEAN CORPUSCULAR HEMOGLOBIN 31.4 pg (29.0-33.0); MEAN CORPUSCULAR HGB CONC 34.4 g/dl (32.0-37.0); MEAN CORPUSCULAR VOLUME 91.3 fl (82.0-101.0); MEAN PLATELET VOLUME 9.6 fl (7.4-10.4); MONOCYTE # 0.6 10^3/ul (0.3-0.9); MONOCYTES % 5.5 % (0.0-11.0); NEUTROPHIL # 8.6 10^3/ul (1.6-7.5); PLATELET COUNT 368 10^3/UL (140-415); RED BLOOD COUNT 2.77 10^6/ul (4.20-5.40); RED CELL DISTRIBUTION WIDTH 12.8 % (11.5-14.5); WHITE BLOOD COUNT 10.5 10^3/ul (4.8-10.8)
[2017-01-02 08:30] LABS: CALCIUM 9.2 mg/dl (8.4-10.2); CREATININE 0.99 mg/dl (0.44-1.00); POTASSIUM 3.8 mmol/L (3.5-5.1)
[2017-01-02] MEDS: ATENOLOL 25 MG TAB NGT SCH ×2 (08:53→22:11)
[2017-01-02] MEDS: MAGNESIUM CHLORIDE (SR) 64 MG TAB PO SCH ×2 (09:15→22:10)
[2017-01-02] MEDS: FOLIC ACID 1 MG TAB PO SCH (09:15)
[2017-01-02] MEDS: MUPIROCIN 2% 22 GM OINT TOP SCH ×2 (09:16→22:12)
--- NOTE | 2017-01-02 19:06 | CONS ---
Date/Time of Note Date/Time of Note DATE: 01/02/17 TIME: 19:04 Assessment/Plan Assessment/Plan Additional Assessment/Plan 1. Acute kidney injury secondary to severe prerenal azotemia secondary to nausea, vomiting and decreased p.o. intake. 2. Hyponatremia with a sodium of 128 secondary to hypovolemic hyponatremia. 4. Hyperkalemia secondary to worsening acute kidney injury and renal failure.- inow improved 5. Metabolic acidosis with bicarbonate of 16 secondary to increased ileostomy output.- now becomes severe with PH low on ABG - s/p HCO3 drip PLAN: Electrolytes stable today CT chest showed atelecatasis, No acute findigs Cr normal will follow up Consultation Date/Type/Reason Admit Date/Time Dec 17, 2016 at 08:55 Initial Consult Date Dec Type of Consultation: NEPHROLOGY Referring Provider: CARLOS RODRIGUEZ MD Exam/Review of Systems Vital Signs Vitals Vital Signs Date Time Temp Pulse Resp B/P Pulse Ox O2 Delivery O2 Flow Rate FiO2 01/02/17 16:09 114 01/02/17 15:23 98.6 16 91/54 100 Intake and Output 01/01/17 01/01/17 01/02/17 15:00 23:00 07:00 Intake Total 1000 ml 950 ml Output Total 350 ml 300 ml Balance 650 ml 650 ml Exam Constitutional: alert, oriented Head: normocephalic Neck: supple Respiratory: normal air movement Cardiovascular: nl pulses Gastrointestinal: non-tender, other (Ileostomy), soft Musculoskeletal: nl gait and stance Extremities: normal pulses 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: SALES ASSOC II-XII intact Results Result Diagram: 01/02/17 0640 01/02/17 0640 Results 24 hrs Laboratory Tests Test 01/02/17 06:40 White Blood Count 10.5 # Red Blood Count 2.77 L Hemoglobin 8.7 L Hematocrit 25.3 L Mean Corpuscular Volume 91.3 Mean Corpuscular Hemoglobin 31.4 Mean Corpuscular Hemoglobin Concent 34.4 Red Cell Distribution Width 12.8 Platelet Count 368 Mean Platelet Volume 9.6 Neutrophils % 82.0 H Lymphocytes % 6.1 L Monocytes % 5.5 Eosinophils % 5.1 Basophils % 0.5 Nucleated Red Blood Cells % 0.0 Neutrophils # 8.6 H Lymphocytes # 0.6 L Monocytes # 0.6 Eosinophils # 0.5 Basophils # 0.1 Nucleated Red Blood Cells # 0.0 Sodium Level 131 L Potassium Level 3.8 Chloride Level 94 #L Carbon Dioxide Level 31 Anion Gap 10 Blood Urea Nitrogen 22 #H Creatinine 0.99 Glucose Level 84 # Calcium Level 9.2 Medications Medications Current Medications Ondansetron HCl (Zofran Inj) 4 mg Q6H PRN IV NAUSEA AND/OR VOMITING Last administered on 12/30/16 23:14; Admin Dose 4 MG; Start 12/17/16 at 13:00 Morphine Sulfate (morphine) 1 mg Q4H PRN IV PAIN LEVEL 7-10; Start 12/17/16 at 13:00 Pantoprazole (Protonix Tab) 40 mg DAILY@06 PO Last administered on 01/02/17 06 :05; Admin Dose 40 MG; Start 12/18/16 at 06:00 Acetaminophen (Tylenol Tab) 500 mg Q4H PRN PO PAIN AND OR ELEVATED TEMP; Start 12/17/16 at 22:30 Albuterol (Ventolin Hfa) 2 puff Q4H PRN INH WHEEZING AND SOB; Start 12/17/16 at 22:30 Folic Acid (Folic Acid) 1 mg DAILY PO Last administered on 01/02/17 09:15; Admin Dose 1 MG; Start 12/18/16 at 09:00 Hydroxyzine Pamoate (Vistaril) 25 mg QHS PRN PO ITCHING Last administered on 02:39; Admin Dose 25 MG; Start 12/17/16 at 22:30 Magnesium Chloride (Mag 64) 64 mg BID PO Last administered on 01/02/17 09:15; Admin Dose 64 MG; Start 12/17/16 at 23:30 Famotidine (Pepcid) 20 mg Q24H PO Last administered on 01/01/17 21:46; Admin Dose 20 MG; Start 12/17/16 at 22:30 Mupirocin (Bactroban) 1 applic BID TOP Last administered on 01/02/17 09:16; Admin Dose 1 APPLIC; Start 12/19/16 at 21:00 Simethicone (Mylicon) 80 mg BID PRN PO DISTENSION/GAS/BLOATING Last administered on 01/01/17 08:44; Admin Dose 80 MG; Start 6/11/17 at 14:00 Metoprolol Tartrate (Lopressor) 5 mg Q4H PRN IV HR>110 Hold SBP<100; Start at 18:00 Midodrine (Proamatine) 5 mg Q8 PRN PO SBP <100; Start 12/30/16 at 22:00 Atenolol 12.5 mg 12.5 mg BID NGT Last administered on 12/31/16 20:12; Admin Dose 12.5 MG; Start 12/30/16 at 21:00 Vancomycin HCl/ Sodium Chloride (Vancocin/NS) 150 ml @ 75 mls/hr Q24H IVPB Last administered on 01/02/17 02:57; Admin Dose 75 MLS/HR; Start 01/01/17 at 02 :00 ROHAN VELÁZQUEZ MD Jan 02, 2017 19:06
--- NOTE | 2017-01-02 20:56 | PN ---
Date/Time of Note Date/Time of Note DATE: 01/02/17 TIME: 20:55 Assessment/Plan Lines/Catheters [facility] Port[facility]a-cath Urinary Cath still in place: No Assessment/Plan Assessment/Plan - Possible sepsis with staph bacteremia, continue vancomycin, Dr. Ba is following an infection disease consultation. Patient is undergoing a nuclear WBC scan. - Metabolic acidosis, continue IV fluids with bicarb, Dr. Spain is following in nephrology consultation. - Intractable nausea and vomiting, resolved. Dr. Mendez is following in gastroenterology consultation. - Acute kidney injury. Dr. Spain is following in nephrology consultation. Continue IV fluids monitor electrolytes. - Hirschsprung disease. - Ileostomy. Further recommendations based on clinical course. Plan of care discussed with Dr. Paez. Subjective 24 Hr Interval Summary Respiratory: no complaints Cardiovascular: no complaints Gastrointestinal: no complaints Genitourinary: no complaints Musculoskeletal: no complaints Skin: no complaints Exam/Review of Systems Vital Signs Vitals Vital Signs Date Time Temp Pulse Resp B/P Pulse Ox O2 Delivery O2 Flow Rate FiO2 01/02/17 20:36 124 01/02/17 20:35 99.6 18 100/59 100 Intake and Output 01/01/17 01/01/17 01/02/17 15:00 23:00 07:00 Intake Total 1000 ml 950 ml Output Total 350 ml 300 ml Balance 650 ml 650 ml Exam Constitutional: alert, oriented Respiratory: clear to auscultation, normal air movement Cardiovascular: nl pulses, other (tachy HR 121), regular rate and rhythm Gastrointestinal: non-tender, soft Extremities: normal pulses 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: nl mental status, nl speech Results Result Diagram: 01/02/17 0640 01/02/17 0640 Results 24 hrs Laboratory Tests Test 01/02/17 06:40 White Blood Count 10.5 # Red Blood Count 2.77 L Hemoglobin 8.7 L Hematocrit 25.3 L Mean Corpuscular Volume 91.3 Mean Corpuscular Hemoglobin 31.4 Mean Corpuscular Hemoglobin Concent 34.4 Red Cell Distribution Width 12.8 Platelet Count 368 Mean Platelet Volume 9.6 Neutrophils % 82.0 H Lymphocytes % 6.1 L Monocytes % 5.5 Eosinophils % 5.1 Basophils % 0.5 Nucleated Red Blood Cells % 0.0 Neutrophils # 8.6 H Lymphocytes # 0.6 L Monocytes # 0.6 Eosinophils # 0.5 Basophils # 0.1 Nucleated Red Blood Cells # 0.0 Sodium Level 131 L Potassium Level 3.8 Chloride Level 94 #L Carbon Dioxide Level 31 Anion Gap 10 Blood Urea Nitrogen 22 #H Creatinine 0.99 Glucose Level 84 # Calcium Level 9.2 Medications Medications Current Medications Ondansetron HCl (Zofran Inj) 4 mg Q6H PRN IV NAUSEA AND/OR VOMITING Last administered on 12/30/16 23:14; Admin Dose 4 MG; Start 12/17/16 at 13:00 Morphine Sulfate (morphine) 1 mg Q4H PRN IV PAIN LEVEL 7-10; Start 12/17/16 at 13:00 Pantoprazole (Protonix Tab) 40 mg DAILY@06 PO Last administered on 01/02/17 06 :05; Admin Dose 40 MG; Start 12/18/16 at 06:00 Acetaminophen (Tylenol Tab) 500 mg Q4H PRN PO PAIN AND OR ELEVATED TEMP; Start 12/17/16 at 22:30 Albuterol (Ventolin Hfa) 2 puff Q4H PRN INH WHEEZING AND SOB; Start 12/17/16 at 22:30 Folic Acid (Folic Acid) 1 mg DAILY PO Last administered on 01/02/17 09:15; Admin Dose 1 MG; Start 12/18/16 at 09:00 Hydroxyzine Pamoate (Vistaril) 25 mg QHS PRN PO ITCHING Last administered on 02:39; Admin Dose 25 MG; Start 12/17/16 at 22:30 Magnesium Chloride (Mag 64) 64 mg BID PO Last administered on 01/02/17 09:15; Admin Dose 64 MG; Start 12/17/16 at 23:30 Famotidine (Pepcid) 20 mg Q24H PO Last administered on 01/01/17 21:46; Admin Dose 20 MG; Start 12/17/16 at 22:30 Mupirocin (Bactroban) 1 applic BID TOP Last administered on 01/02/17 09:16; Admin Dose 1 APPLIC; Start 12/19/16 at 21:00 Simethicone (Mylicon) 80 mg BID PRN PO DISTENSION/GAS/BLOATING Last administered on 01/01/17 08:44; Admin Dose 80 MG; Start 12/22/16 at 14:00 Metoprolol Tartrate (Lopressor) 5 mg Q4H PRN IV HR>110 Hold SBP<100; Start at 18:00 Midodrine (Proamatine) 5 mg Q8 PRN PO SBP <100; Start 12/30/16 at 22:00 Atenolol 12.5 mg 12.5 mg BID NGT Last administered on 12/31/16 20:12; Admin Dose 12.5 MG; Start 12/30/16 at 21:00 Vancomycin HCl/ Sodium Chloride (Vancocin/NS) 150 ml @ 75 mls/hr Q24H IVPB Last administered on 01/02/17 02:57; Admin Dose 75 MLS/HR; Start 01/01/17 at 02 :00 DEVENDRA GOMES Jan 02, 2017 20:56
[2017-01-02] MEDS: FAMOTIDINE 20 MG TAB PO SCH (22:10)
--- NOTE | 2017-01-02 22:17 | CONS ---
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-) - low-level nonspecific increase in tracer uptake within the mediastinum on WBC tagged scan 12/31/2016 recommendations - pending results: blood cultures from 12/28/2016, 12/31/2016, 01/02/2017 - I recommend removal of port because it is probably the source of recurrent bacteremia - continue IV vancomycin (12/27/2016-) management d/w Pt, her mother and RN Problems: Consultation Date/Type/Reason Admit Date/Time Dec 17, 2016 at 08:55 Type of Consultation: ID Referring Provider: CARLOS RODRIGUEZ MD 24 HR Interval Summary Constitutional: no complaints Detailed Summary Eyes: no complaints ENT: no complaints Respiratory: no complaints Cardiovascular: no complaints Gastrointestinal: other (colostomy bag) Genitourinary: no complaints Musculoskeletal: no complaints Skin: no complaints Neurologic: no complaints Exam/Review of Systems Vital Signs Vitals Vital Signs Date Time Temp Pulse Resp B/P Pulse Ox O2 Delivery O2 Flow Rate FiO2 01/02/17 20:36 124 01/02/17 20:35 99.6 18 100/59 100 Intake and Output 01/01/17 01/01/17 01/02/17 15:00 23:00 07:00 Intake Total 1000 ml 950 ml Output Total 350 ml 300 ml Balance 650 ml 650 ml Exam Constitutional: alert, frail, oriented Psych: no complaints Head: atraumatic, normocephalic Eyes: nl conjunctiva, nl lids ENMT: nl external ears & nose, nl nasal mucosa & septum Neck: supple Respiratory: clear to auscultation, normal air movement Cardiovascular: nl pulses, regular rate and rhythm, No diastolic murmur, No systolic murmur Gastrointestinal: non-tender, other (colostomy bag), soft Extremities: No edema 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: DRIVER ENGINEER II-XII 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, nl mental status Skin: nl turgor Results Result Diagram: 01/02/1740 01/02/17 0640 Results 24 hrs Laboratory Tests Test 01/02/17 06:40 White Blood Count 10.5 # Red Blood Count 2.77 L Hemoglobin 8.7 L Hematocrit 25.3 L Mean Corpuscular Volume 91.3 Mean Corpuscular Hemoglobin 31.4 Mean Corpuscular Hemoglobin Concent 34.4 Red Cell Distribution Width 12.8 Platelet Count 368 Mean Platelet Volume 9.6 Neutrophils % 82.0 H Lymphocytes % 6.1 L Monocytes % 5.5 Eosinophils % 5.1 Basophils % 0.5 Nucleated Red Blood Cells % 0.0 Neutrophils # 8.6 H Lymphocytes # 0.6 L Monocytes # 0.6 Eosinophils # 0.5 Basophils # 0.1 Nucleated Red Blood Cells # 0.0 Sodium Level 131 L Potassium Level 3.8 Chloride Level 94 #L Carbon Dioxide Level 31 Anion Gap 10 Blood Urea Nitrogen 22 #H Creatinine 0.99 Glucose Level 84 # Calcium Level 9.2 Medications Medications Current Medications Ondansetron HCl (Zofran Inj) 4 mg Q6H PRN IV NAUSEA AND/OR VOMITING Last administered on 12/30/16 23:14; Admin Dose 4 MG; Start 12/17/16 at 13:00 Morphine Sulfate (morphine) 1 mg Q4H PRN IV PAIN LEVEL 7-10; Start 12/17/16 at 13:00 Pantoprazole (Protonix Tab) 40 mg DAILY@06 PO Last administered on 01/02/17 06 :05; Admin Dose 40 MG; Start 12/18/16 at 06:00 Acetaminophen (Tylenol Tab) 500 mg Q4H PRN PO PAIN AND OR ELEVATED TEMP; Start 12/17/16 at 22:30 Albuterol (Ventolin Hfa) 2 puff Q4H PRN INH WHEEZING AND SOB; Start 12/17/16 at 22:30 Folic Acid (Folic Acid) 1 mg DAILY PO Last administered on 01/02/17 09:15; Admin Dose 1 MG; Start 12/18/16 at 09:00 Hydroxyzine Pamoate (Vistaril) 25 mg QHS PRN PO ITCHING Last administered on 02:39; Admin Dose 25 MG; Start 12/17/16 at 22:30 Magnesium Chloride (Mag 64) 64 mg BID PO Last administered on 01/02/17 09:15; Admin Dose 64 MG; Start 12/17/16 at 23:30 Famotidine (Pepcid) 20 mg Q24H PO Last administered on 01/01/17 21:46; Admin Dose 20 MG; Start 12/17/16 at 22:30 Mupirocin (Bactroban) 1 applic BID TOP Last administered on 01/02/17 09:16; Admin Dose 1 APPLIC; Start 12/19/16 at 21:00 Simethicone (Mylicon) 80 mg BID PRN PO DISTENSION/GAS/BLOATING Last administered on 01/01/17 08:44; Admin Dose 80 MG; Start 12/22/16 at 14:00 Metoprolol Tartrate (Lopressor) 5 mg Q4H PRN IV HR>110 Hold SBP<100; Start at 18:00 Midodrine (Proamatine) 5 mg Q8 PRN PO SBP <100; Start 12/30/16 at 22:00 Atenolol 12.5 mg 12.5 mg BID NGT Last administered on 12/31/16 20:12; Admin Dose 12.5 MG; Start 12/30/16 at 21:00 Vancomycin HCl/ Sodium Chloride (Vancocin/NS) 150 ml @ 75 mls/hr Q24H IVPB Last administered on 01/02/17 02:57; Admin Dose 75 MLS/HR; Start 01/01/17 at 02 :00 TAWANDA FINK M.D. Jan 02, 2017 22:17
[2017-01-03] VITALS (11 sets, daily range): BP systolic 88–103; BP diastolic 52–60; PULSE 102–115; RESP 15–17
[2017-01-03] MEDS: VANCOMYCIN 750 MG in SOD CHLORIDE 0.9% 150 ML IVPB SCH (02:56)
[2017-01-03] MEDS: PANTOPRAZOLE (EC) 40 MG TAB PO SCH (06:21)
[2017-01-03 07:55] LABS: ADD SCAN DIFF NO
[2017-01-03 08:03] LABS: BASOPHIL # 0.1 10^3/ul (0.0-0.1); BASOPHILS % 0.5 % (0.0-2.0); EOSINOPHILS # 0.7 10^3/ul (0.0-0.5); EOSINOPHILS % 6.4 % (0.0-7.0); HEMATOCRIT 26.2 % (37.0-47.0); HEMOGLOBIN 9.1 g/dl (12.0-16.0); LYMPHOCYTES # 0.7 10^3/ul (0.8-2.9); LYMPHOCYTES % 6.4 % (15.0-51.0); MEAN CORPUSCULAR HEMOGLOBIN 31.5 pg (29.0-33.0); MEAN CORPUSCULAR HGB CONC 34.7 g/dl (32.0-37.0); MEAN CORPUSCULAR VOLUME 90.7 fl (82.0-101.0); MEAN PLATELET VOLUME 9.6 fl (7.4-10.4); MONOCYTE # 0.6 10^3/ul (0.3-0.9); NEUTROPHIL # 8.1 10^3/ul (1.6-7.5); NEUTROPHILS % 80.2 % (39.0-77.0); PLATELET COUNT 407 10^3/UL (140-415); RED BLOOD COUNT 2.89 10^6/ul (4.20-5.40); RED CELL DISTRIBUTION WIDTH 12.6 % (11.5-14.5); WHITE BLOOD COUNT 10.1 10^3/ul (4.8-10.8)
[2017-01-03 08:33] LABS: CALCIUM 9.8 mg/dl (8.4-10.2); CREATININE 1.14 mg/dl (0.44-1.00)
[2017-01-03] MEDS: ATENOLOL 25 MG TAB NGT SCH ×2 (09:00→22:02)
--- NOTE | 2017-01-03 09:11 | CONS ---
Date/Time of Note Date/Time of Note DATE: 01/03/17 TIME: 09:08 Assessment/Plan Assessment/Plan Additional Assessment/Plan 1. Tachyarrhythmia at this time, most consistent with sinus tachycardia.- overall improved intially after IVF/midodrine BP support/digoxin/NL TSH/FT4. NL EF by echo. Having some mild recurrent tachycardia -HR better now, Rx in progress. 2. Hypotension, borderline and labile.-on midodrine - no symptoms. 3. Abnormal electrocardiogram with nonspecific ST-T abnormalities, assess for acute coronary syndrome.NL EF by echo this admit/negative trop 4. History of Hirschsprung disease- GI follows. 5. Possible anxiety. 6. Acidosis. 7. Renal failure. 8. Status post ileostomy. 9.Bacteremia-by blood cultures Consultation Date/Type/Reason Admit Date/Time Dec 17, 2016 at 08:55 Type of Consultation: ID Referring Provider: CARLOS RODRIGUEZ MD 24 HR Interval Summary Free Text/Dictation NO acute events - pt feels well- in good fluid status - denies CP. Not dizzy. ROS: No fever, no chills, no nausea, no vomiting, no diarrhea/constipation No recent weight changes No chest pain, no PND, no orthopnea No dizziness, blurred vision No thirst, no heat or cold intolerance Exam/Review of Systems Vital Signs Vitals Vital Signs Date Time Temp Pulse Resp B/P Pulse Ox O2 Delivery O2 Flow Rate FiO2 01/03/17 08:34 102 01/03/17 07:42 97.7 16 88/52 100 Intake and Output 01/02/17 01/02/17 01/03/17 14:59 22:59 06:59 Intake Total 1600 ml 1600 ml Output Total 600 ml Balance 1600 ml 1000 ml Exam General: WN/WD/NAD, AOx 3 HEENT: Unicetric/atraumatic/EOMI (follow commands) NECK: JVD elevated, no thyromegaly Lymph: no lymphadenopathy HEART: regular with no S3, II/ systolic murmur at apex LUNGS: Coarse sounds ABD: soft, NT, ND, +BS : Intact Neuro: non focal SKIN: chronic changes EXT: trace edema Results Result Diagram: 01/03/17 0647 01/03/17 0647 Results 24 hrs Laboratory Tests Test 01/03/17 06:47 White Blood Count 10.1 Red Blood Count 2.89 L Hemoglobin 9.1 L Hematocrit 26.2 L Mean Corpuscular Volume 90.7 Mean Corpuscular Hemoglobin 31.5 Mean Corpuscular Hemoglobin Concent 34.7 Red Cell Distribution Width 12.6 Platelet Count 407 Mean Platelet Volume 9.6 Neutrophils % 80.2 H Lymphocytes % 6.4 L Monocytes % 6.0 Eosinophils % 6.4 Basophils % 0.5 Nucleated Red Blood Cells % 0.0 Neutrophils # 8.1 H Lymphocytes # 0.7 L Monocytes # 0.6 Eosinophils # 0.7 H Basophils # 0.1 Nucleated Red Blood Cells # 0.0 Sodium Level 133 L Potassium Level 4.0 Chloride Level 96 L Carbon Dioxide Level 28 Anion Gap 13 Blood Urea Nitrogen 22 H Creatinine 1.14 H Glucose Level 97 Calcium Level 9.8 Medications Medications Current Medications Ondansetron HCl (Zofran Inj) 4 mg Q6H PRN IV NAUSEA AND/OR VOMITING Last administered on 12/30/16 23:14; Admin Dose 4 MG; Start 12/17/16 at 13:00 Morphine Sulfate (morphine) 1 mg Q4H PRN IV PAIN LEVEL 7-10; Start 12/17/16 at 13:00 Pantoprazole (Protonix Tab) 40 mg DAILY@06 PO Last administered on 01/03/17 06 :21; Admin Dose 40 MG; Start 12/18/16 at 06:00 Acetaminophen (Tylenol Tab) 500 mg Q4H PRN PO PAIN AND OR ELEVATED TEMP; Start 12/17/16 at 22:30 Albuterol (Ventolin Hfa) 2 puff Q4H PRN INH WHEEZING AND SOB; Start 12/17/16 at 22:30 Folic Acid (Folic Acid) 1 mg DAILY PO Last administered on 01/02/17 09:15; Admin Dose 1 MG; Start 12/18/16 at 09:00 Hydroxyzine Pamoate (Vistaril) 25 mg QHS PRN PO ITCHING Last administered on 02:39; Admin Dose 25 MG; Start 12/17/16 at 22:30 Magnesium Chloride (Mag 64) 64 mg BID PO Last administered on 01/02/17 22:10; Admin Dose 64 MG; Start 12/17/16 at 23:30 Famotidine (Pepcid) 20 mg Q24H PO Last administered on 01/02/17 22:10; Admin Dose 20 MG; Start 12/17/16 at 22:30 Mupirocin (Bactroban) 1 applic BID TOP Last administered on 01/02/17 22:12; Admin Dose 1 APPLIC; Start 12/19/16 at 21:00 Simethicone (Mylicon) 80 mg BID PRN PO DISTENSION/GAS/BLOATING Last administered on 01/01/17 08:44; Admin Dose 80 MG; Start 12/22/16 at 14:00 Metoprolol Tartrate (Lopressor) 5 mg Q4H PRN IV HR>110 Hold SBP<100; Start at 18:00 Midodrine (Proamatine) 5 mg Q8 PRN PO SBP <100; Start 12/30/16 at 22:00 Atenolol 12.5 mg 12.5 mg BID NGT Last administered on 12/31/16 20:12; Admin Dose 12.5 MG; Start 12/30/16 at 21:00 Vancomycin HCl/ Sodium Chloride (Vancocin/NS) 150 ml @ 75 mls/hr Q24H IVPB Last administered on 01/03/17 02:56; Admin Dose 75 MLS/HR; Start 01/01/17 at 02 :00 IRENE MADERA MD Jan 03, 2017 09:10
[2017-01-03] MEDS: MAGNESIUM CHLORIDE (SR) 64 MG TAB PO SCH ×2 (09:27→22:09)
[2017-01-03] MEDS: FOLIC ACID 1 MG TAB PO SCH (09:27)
[2017-01-03] MEDS: MUPIROCIN 2% 22 GM OINT TOP SCH ×2 (09:28→22:12)
--- NOTE | 2017-01-03 12:53 | CONS ---
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-) - low-level nonspecific increase in tracer uptake within the mediastinum on WBC tagged scan 12/31/2016 recommendations - pending results: blood cultures from 12/31/2016 (Staph spp), 01/02/2017 ( negative so far) - I recommend removal of port because it is probably the source of recurrent bacteremia; needs an alternative IV access for IV vancomycin once port is removed. - continue IV vancomycin (12/27/2016-) management d/w Pt, informed Dr. Paez Problems: Consultation Date/Type/Reason Admit Date/Time Dec 17, 2016 at 08:55 Type of Consultation: ID Referring Provider: CARLOS PAEZ MD 24 HR Interval Summary Constitutional: no complaints Detailed Summary Eyes: no complaints ENT: no complaints Respiratory: no complaints Cardiovascular: no complaints Gastrointestinal: other (colostomy), passing stool Genitourinary: no complaints Musculoskeletal: no complaints Skin: no complaints Neurologic: no complaints Exam/Review of Systems Vital Signs Vitals Vital Signs Date Time Temp Pulse Resp B/P Pulse Ox O2 Delivery O2 Flow Rate FiO2 01/03/17 12:25 109 01/03/17 11:50 98.0 16 93/55 100 Intake and Output 01/02/17 01/02/17 01/03/17 15:00 23:00 07:00 Intake Total 1600 ml 1600 ml Output Total 600 ml Balance 1600 ml 1000 ml Exam Constitutional: alert, oriented Psych: nl mood/affect, no complaints Head: atraumatic, normocephalic Eyes: nl conjunctiva, nl lids ENMT: nl external ears & nose, nl nasal mucosa & septum Neck: supple Respiratory: diminished breath sounds Cardiovascular: nl pulses, regular rate and rhythm Gastrointestinal: non-tender, other (colostomy in place), soft Musculoskeletal: nl extremities to inspection Extremities: No edema Skin: other (port site is clean) Results Result Diagram: 01/03/1747 01/03/17 0647 Results 24 hrs Laboratory Tests Test 01/03/17 06:47 White Blood Count 10.1 Red Blood Count 2.89 L Hemoglobin 9.1 L Hematocrit 26.2 L Mean Corpuscular Volume 90.7 Mean Corpuscular Hemoglobin 31.5 Mean Corpuscular Hemoglobin Concent 34.7 Red Cell Distribution Width 12.6 Platelet Count 407 Mean Platelet Volume 9.6 Neutrophils % 80.2 H Lymphocytes % 6.4 L Monocytes % 6.0 Eosinophils % 6.4 Basophils % 0.5 Nucleated Red Blood Cells % 0.0 Neutrophils # 8.1 H Lymphocytes # 0.7 L Monocytes # 0.6 Eosinophils # 0.7 H Basophils # 0.1 Nucleated Red Blood Cells # 0.0 Sodium Level 133 L Potassium Level 4.0 Chloride Level 96 L Carbon Dioxide Level 28 Anion Gap 13 Blood Urea Nitrogen 22 H Creatinine 1.14 H Glucose Level 97 Calcium Level 9.8 Medications Medications Current Medications Ondansetron HCl (Zofran Inj) 4 mg Q6H PRN IV NAUSEA AND/OR VOMITING Last administered on 12/30/16 23:14; Admin Dose 4 MG; Start 12/17/16 at 13:00 Morphine Sulfate (morphine) 1 mg Q4H PRN IV PAIN LEVEL 7-10; Start 12/17/16 at 13:00 Pantoprazole (Protonix Tab) 40 mg DAILY@06 PO Last administered on 01/03/17 06 :21; Admin Dose 40 MG; Start 12/18/16 at 06:00 Acetaminophen (Tylenol Tab) 500 mg Q4H PRN PO PAIN AND OR ELEVATED TEMP; Start 12/17/16 at 22:30 Albuterol (Ventolin Hfa) 2 puff Q4H PRN INH WHEEZING AND SOB; Start 12/17/16 at 22:30 Folic Acid (Folic Acid) 1 mg DAILY PO Last administered on 01/03/17 09:27; Admin Dose 1 MG; Start 12/18/16 at 09:00 Hydroxyzine Pamoate (Vistaril) 25 mg QHS PRN PO ITCHING Last administered on 02:39; Admin Dose 25 MG; Start 12/17/16 at 22:30 Magnesium Chloride (Mag 64) 64 mg BID PO Last administered on 01/03/17 09:27; Admin Dose 64 MG; Start 12/17/16 at 23:30 Famotidine (Pepcid) 20 mg Q24H PO Last administered on 01/02/17 22:10; Admin Dose 20 MG; Start 12/17/16 at 22:30 Mupirocin (Bactroban) 1 applic BID TOP Last administered on 01/03/17 09:28; Admin Dose 1 APPLIC; Start 12/19/16 at 21:00 Simethicone (Mylicon) 80 mg BID PRN PO DISTENSION/GAS/BLOATING Last administered on 01/01/17 08:44; Admin Dose 80 MG; Start 12/22/16 at 14:00 Metoprolol Tartrate (Lopressor) 5 mg Q4H PRN IV HR>110 Hold SBP<100; Start at 18:00 Midodrine (Proamatine) 5 mg Q8 PRN PO SBP <100; Start 12/30/16 at 22:00 Atenolol 12.5 mg 12.5 mg BID NGT Last administered on 12/31/16 20:12; Admin Dose 12.5 MG; Start 12/30/16 at 21:00 Vancomycin HCl/ Sodium Chloride (Vancocin/NS) 150 ml @ 75 mls/hr Q24H IVPB Last administered on 01/03/17 02:56; Admin Dose 75 MLS/HR; Start 01/01/17 at 02 :00 TAWANDA FINK M.D. Jan 03, 2017 12:53
--- NOTE | 2017-01-03 17:02 | CONS ---
Date/Time of Note Date/Time of Note DATE: 01/03/17 TIME: 17:00 Assessment/Plan Assessment/Plan Additional Assessment/Plan 1. Acute kidney injury secondary to severe prerenal azotemia secondary to nausea, vomiting and decreased p.o. intake. 2. Hyponatremia with a sodium of 128 secondary to hypovolemic hyponatremia. 4. Hyperkalemia secondary to worsening acute kidney injury and renal failure.- inow improved 5. Metabolic acidosis with bicarbonate of 16 secondary to increased ileostomy output.- now becomes severe with PH low on ABG - s/p HCO3 drip PLAN: Na 133, Cr slightly went up to 1.1, not on any IV fluids now CT chest showed atelecatasis, No acute findigs will follow up Consultation Date/Type/Reason Admit Date/Time Dec 17, 2016 at 08:55 Initial Consult Date Dec Type of Consultation: NEPHROLOGY Referring Provider: CARLOS RODRIGUEZ MD 24 HR Interval Summary Free Text/Dictation Na 133, Cr bumped to 1.1, afebrile, BP stable Exam/Review of Systems Vital Signs Vitals Vital Signs Date Time Temp Pulse Resp B/P Pulse Ox O2 Delivery O2 Flow Rate FiO2 01/03/17 16:58 114 01/03/17 15:48 99.2 16 91/55 100 Intake and Output 01/02/17 01/02/17 01/03/17 15:00 23:00 07:00 Intake Total 1600 ml 1600 ml Output Total 600 ml Balance 1600 ml 1000 ml Results Result Diagram: 01/03/17 0647 01/03/17 0647 Results 24 hrs Laboratory Tests Test 01/03/17 06:47 White Blood Count 10.1 Red Blood Count 2.89 L Hemoglobin 9.1 L Hematocrit 26.2 L Mean Corpuscular Volume 90.7 Mean Corpuscular Hemoglobin 31.5 Mean Corpuscular Hemoglobin Concent 34.7 Red Cell Distribution Width 12.6 Platelet Count 407 Mean Platelet Volume 9.6 Neutrophils % 80.2 H Lymphocytes % 6.4 L Monocytes % 6.0 Eosinophils % 6.4 Basophils % 0.5 Nucleated Red Blood Cells % 0.0 Neutrophils # 8.1 H Lymphocytes # 0.7 L Monocytes # 0.6 Eosinophils # 0.7 H Basophils # 0.1 Nucleated Red Blood Cells # 0.0 Sodium Level 133 L Potassium Level 4.0 Chloride Level 96 L Carbon Dioxide Level 28 Anion Gap 13 Blood Urea Nitrogen 22 H Creatinine 1.14 H Glucose Level 97 Calcium Level 9.8 Medications Medications Current Medications Ondansetron HCl (Zofran Inj) 4 mg Q6H PRN IV NAUSEA AND/OR VOMITING Last administered on 12/30/16 23:14; Admin Dose 4 MG; Start 12/17/16 at 13:00 Morphine Sulfate (morphine) 1 mg Q4H PRN IV PAIN LEVEL 7-10; Start 12/17/16 at 13:00 Pantoprazole (Protonix Tab) 40 mg DAILY@06 PO Last administered on 01/03/17 06 :21; Admin Dose 40 MG; Start 12/18/16 at 06:00 Acetaminophen (Tylenol Tab) 500 mg Q4H PRN PO PAIN AND OR ELEVATED TEMP; Start 12/17/16 at 22:30 Albuterol (Ventolin Hfa) 2 puff Q4H PRN INH WHEEZING AND SOB; Start 12/17/16 at 22:30 Folic Acid (Folic Acid) 1 mg DAILY PO Last administered on 01/03/17 09:27; Admin Dose 1 MG; Start 12/18/16 at 09:00 Hydroxyzine Pamoate (Vistaril) 25 mg QHS PRN PO ITCHING Last administered on 02:39; Admin Dose 25 MG; Start 12/17/16 at 22:30 Magnesium Chloride (Mag 64) 64 mg BID PO Last administered on 01/03/17 09:27; Admin Dose 64 MG; Start 12/17/16 at 23:30 Famotidine (Pepcid) 20 mg Q24H PO Last administered on 01/02/17 22:10; Admin Dose 20 MG; Start 12/17/16 at 22:30 Mupirocin (Bactroban) 1 applic BID TOP Last administered on 01/03/17 09:28; Admin Dose 1 APPLIC; Start 12/19/16 at 21:00 Simethicone (Mylicon) 80 mg BID PRN PO DISTENSION/GAS/BLOATING Last administered on 01/01/17 08:44; Admin Dose 80 MG; Start 12/22/16 at 14:00 Metoprolol Tartrate (Lopressor) 5 mg Q4H PRN IV HR>110 Hold SBP<100; Start at 18:00 Midodrine (Proamatine) 5 mg Q8 PRN PO SBP <100; Start 12/30/16 at 22:00 Atenolol 12.5 mg 12.5 mg BID NGT Last administered on 12/31/16 20:12; Admin Dose 12.5 MG; Start 12/30/16 at 21:00 Vancomycin HCl/ Sodium Chloride (Vancocin/NS) 150 ml @ 75 mls/hr Q24H IVPB Last administered on 01/03/17 02:56; Admin Dose 75 MLS/HR; Start 01/01/17 at 02 :00 ROHAN VELÁZQUEZ MD Jan 03, 2017 17:02
--- NOTE | 2017-01-03 17:17 | PN ---
Date/Time of Note Date/Time of Note DATE: 01/03/17 TIME: 17:14 Assessment/Plan VTE Prophylaxis VTE Prophylaxis Intervention: SCD's Lines/Catheters IV C[facility]ter Type [facility] Port a cath Urinary Cath still in place: No Assessment/Plan Chief Complaint/Hosp Course Patient is awake alert, denies any nausea vomiting, slightly tachycardic with borderline blood pressure. ASSESSMENT AND PLAN: - Sepsis with staph bacteremia, continue vancomycin, Dr. Ba is following an infection disease consultation. Dr. Raymond is asked to see patient in vascular surgery consultation for removal of right chest Port-A-Cath. - Metabolic acidosis, continue IV fluids with bicarb, Dr. Spain is following in nephrology consultation. - Intractable nausea and vomiting, resolved. Dr. Mendez is following in gastroenterology consultation. - Acute kidney injury. Dr. Spain is following in nephrology consultation. Continue IV fluids monitor electrolytes. - Hirschsprung disease. - Ileostomy. Further recommendations based on clinical course. Plan of care discussed with Dr. Paez. Problems: Exam/Review of Systems Vital Signs Vitals Vital Signs Date Time Temp Pulse Resp B/P Pulse Ox O2 Delivery O2 Flow Rate FiO2 01/03/17 16:58 114 01/03/17 15:48 99.2 16 91/55 100 Intake and Output 01/02/17 01/02/17 01/03/17 15:00 23:00 07:00 Intake Total 1600 ml 1600 ml Output Total 600 ml Balance 1600 ml 1000 ml Exam Constitutional: alert, oriented Head: normocephalic Neck: supple Respiratory: normal air movement Cardiovascular: nl pulses Gastrointestinal: non-tender, other (Ileostomy), soft Musculoskeletal: nl gait and stance Extremities: normal pulses 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: [employer]ERTY [employer] II-XII intact Additional Comments Right chest Port-A-Cath Results Result Diagram: 01/03/17 0647 01/03/17 0647 Results 24 hrs Laboratory Tests Test 01/03/17 06:47 White Blood Count 10.1 Red Blood Count 2.89 L Hemoglobin 9.1 L Hematocrit 26.2 L Mean Corpuscular Volume 90.7 Mean Corpuscular Hemoglobin 31.5 Mean Corpuscular Hemoglobin Concent 34.7 Red Cell Distribution Width 12.6 Platelet Count 407 Mean Platelet Volume 9.6 Neutrophils % 80.2 H Lymphocytes % 6.4 L Monocytes % 6.0 Eosinophils % 6.4 Basophils % 0.5 Nucleated Red Blood Cells % 0.0 Neutrophils # 8.1 H Lymphocytes # 0.7 L Monocytes # 0.6 Eosinophils # 0.7 H Basophils # 0.1 Nucleated Red Blood Cells # 0.0 Sodium Level 133 L Potassium Level 4.0 Chloride Level 96 L Carbon Dioxide Level 28 Anion Gap 13 Blood Urea Nitrogen 22 H Creatinine 1.14 H Glucose Level 97 Calcium Level 9.8 Medications Medications Current Medications Ondansetron HCl (Zofran Inj) 4 mg Q6H PRN IV NAUSEA AND/OR VOMITING Last administered on 12/30/16 23:14; Admin Dose 4 MG; Start 12/17/16 at 13:00 Morphine Sulfate (morphine) 1 mg Q4H PRN IV PAIN LEVEL 7-10; Start 12/17/16 at 13:00 Pantoprazole (Protonix Tab) 40 mg DAILY@06 PO Last administered on 01/03/17 06 :21; Admin Dose 40 MG; Start 12/18/16 at 06:00 Acetaminophen (Tylenol Tab) 500 mg Q4H PRN PO PAIN AND OR ELEVATED TEMP; Start 12/17/16 at 22:30 Albuterol (Ventolin Hfa) 2 puff Q4H PRN INH WHEEZING AND SOB; Start 12/17/16 at 22:30 Folic Acid (Folic Acid) 1 mg DAILY PO Last administered on 01/03/17 09:27; Admin Dose 1 MG; Start 12/18/16 at 09:00 Hydroxyzine Pamoate (Vistaril) 25 mg QHS PRN PO ITCHING Last administered on 02:39; Admin Dose 25 MG; Start 12/17/16 at 22:30 Magnesium Chloride (Mag 64) 64 mg BID PO Last administered on 01/03/17 09:27; Admin Dose 64 MG; Start 12/17/16 at 23:30 Famotidine (Pepcid) 20 mg Q24H PO Last administered on 01/02/17 22:10; Admin Dose 20 MG; Start 12/17/16 at 22:30 Mupirocin (Bactroban) 1 applic BID TOP Last administered on 01/03/17 09:28; Admin Dose 1 APPLIC; Start 12/19/16 at 21:00 Simethicone (Mylicon) 80 mg BID PRN PO DISTENSION/GAS/BLOATING Last administered on 01/01/17 08:44; Admin Dose 80 MG; Start 12/22/16 at 14:00 Metoprolol Tartrate (Lopressor) 5 mg Q4H PRN IV HR>110 Hold SBP<100; Start at 18:00 Midodrine (Proamatine) 5 mg Q8 PRN PO SBP <100; Start 12/30/16 at 22:00 Atenolol 12.5 mg 12.5 mg BID NGT Last administered on 12/31/16 20:12; Admin Dose 12.5 MG; Start 12/30/16 at 21:00 Vancomycin HCl/ Sodium Chloride (Vancocin/NS) 150 ml @ 75 mls/hr Q24H IVPB Last administered on 01/03/17 02:56; Admin Dose 75 MLS/HR; Start 01/01/17 at 02 :00 ROMI ESPINO Jan 03, 2017 17:17
[2017-01-03] MEDS: FAMOTIDINE 20 MG TAB PO SCH (22:10)
[2017-01-04] VITALS (13 sets, daily range): BP systolic 87–98; BP diastolic 49–58; PULSE 83–115; RESP 15–19
[2017-01-04] MEDS: VANCOMYCIN 750 MG in SOD CHLORIDE 0.9% 150 ML IVPB SCH (02:00)
[2017-01-04] MEDS: PANTOPRAZOLE (EC) 40 MG TAB PO SCH (05:20)
[2017-01-04] MEDS: MIDODRINE 2.5 MG TAB PO PRN (05:21)
[2017-01-04] MEDS: ATENOLOL 25 MG TAB NGT SCH ×2 (09:00→21:00)
[2017-01-04] MEDS: MUPIROCIN 2% 22 GM OINT TOP SCH ×2 (09:33→21:03)
[2017-01-04] MEDS: FOLIC ACID 1 MG TAB PO SCH (09:33)
[2017-01-04] MEDS: MAGNESIUM CHLORIDE (SR) 64 MG TAB PO SCH ×2 (09:39→21:03)
[2017-01-04 09:50] LABS: ADD SCAN DIFF NO
[2017-01-04 09:59] LABS: ABNORMAL IP MESSAGE 1; BASOPHIL # 0.1 10^3/ul (0.0-0.1); BASOPHILS % 0.5 % (0.0-2.0); EOSINOPHILS # 0.6 10^3/ul (0.0-0.5); EOSINOPHILS % 6.5 % (0.0-7.0); HEMATOCRIT 26.8 % (37.0-47.0); LYMPHOCYTES # 0.5 10^3/ul (0.8-2.9); LYMPHOCYTES % 5.6 % (15.0-51.0); MEAN CORPUSCULAR HEMOGLOBIN 31.3 pg (29.0-33.0); MEAN CORPUSCULAR HGB CONC 33.6 g/dl (32.0-37.0); MEAN CORPUSCULAR VOLUME 93.1 fl (82.0-101.0); MEAN PLATELET VOLUME 9.6 fl (7.4-10.4); MONOCYTE # 0.4 10^3/ul (0.3-0.9); MONOCYTES % 4.1 % (0.0-11.0); NEUTROPHIL # 7.6 10^3/ul (1.6-7.5); NEUTROPHILS % 82.6 % (39.0-77.0); PLATELET COUNT 423 10^3/UL (140-415); RED BLOOD COUNT 2.88 10^6/ul (4.20-5.40); RED CELL DISTRIBUTION WIDTH 12.4 % (11.5-14.5); WHITE BLOOD COUNT 9.2 10^3/ul (4.8-10.8)
[2017-01-04 10:18] LABS: CALCIUM 9.6 mg/dl (8.4-10.2); CREATININE 1.12 mg/dl (0.44-1.00); POTASSIUM 3.9 mmol/L (3.5-5.1)
[2017-01-04 10:24] LABS: CREATININE 1.06 mg/dl (0.44-1.00)
--- NOTE | 2017-01-04 12:54 | CONS ---
Date/Time of Note Date/Time of Note DATE: 01/04/17 TIME: 12:53 Assessment/Plan Assessment/Plan Additional Assessment/Plan 1. Tachyarrhythmia at this time, most consistent with sinus tachycardia.- overall improved intially after IVF/midodrine BP support/digoxin/NL TSH/FT4. NL EF by echo. Having some mild recurrent tachycardia -HR better now, Rx in progress. BETTER overall. 2. Hypotension, borderline and labile.-on midodrine - no symptoms. STABLe. 3. Abnormal electrocardiogram with nonspecific ST-T abnormalities, assess for acute coronary syndrome.NL EF by echo this admit/negative trop 4. History of Hirschsprung disease- GI follows. 5. Possible anxiety. 6. Acidosis. 7. Renal failure- improving. 8. Status post ileostomy. 9.Bacteremia-by blood cultures Consultation Date/Type/Reason Admit Date/Time Dec 17, 2016 at 08:55 Type of Consultation: NEPHROLOGY Referring Provider: CARLOS RODRIGUEZ MD 24 HR Interval Summary Free Text/Dictation NO acute events - no CP. In good fluid status. ROS: No fever, no chills, no nausea, no vomiting, no diarrhea/constipation No recent weight changes No chest pain, no PND, no orthopnea No dizziness, blurred vision No thirst, no heat or cold intolerance Exam/Review of Systems Vital Signs Vitals Vital Signs Date Time Temp Pulse Resp B/P Pulse Ox O2 Delivery O2 Flow Rate FiO2 01/04/17 12:12 107 01/04/17 11:45 98.2 16 98/53 100 Intake and Output 01/03/17 01/03/17 01/04/17 15:00 23:00 07:00 Intake Total 1280 ml 1600 ml Output Total 1500 ml 400 ml Balance -220 ml 1200 ml Exam General: thin/WD/NAD, AOx3 HEENT: Unicetric/atraumatic/EOMI (follow commands) NECK: JVD elevated, no thyromegaly Lymph: no lymphadenopathy HEART: regular with no S3, II/ systolic murmur at apex LUNGS: Coarse sounds ABD: soft, NT, ND, +BS : Intact Neuro: non focal SKIN: chronic changes EXT: trace edema Results Result Diagram: 01/04/17 0850 01/04/17 0850 Results 24 hrs Laboratory Tests Test 01/04/17 08:50 White Blood Count 9.2 Red Blood Count 2.88 L Hemoglobin 9.0 L Hematocrit 26.8 L Mean Corpuscular Volume 93.1 Mean Corpuscular Hemoglobin 31.3 Mean Corpuscular Hemoglobin Concent 33.6 Red Cell Distribution Width 12.4 Platelet Count 423 H Mean Platelet Volume 9.6 Neutrophils % 82.6 H Lymphocytes % 5.6 L Monocytes % 4.1 Eosinophils % 6.5 Basophils % 0.5 Nucleated Red Blood Cells % 0.0 Neutrophils # 7.6 H Lymphocytes # 0.5 L Monocytes # 0.4 Eosinophils # 0.6 H Basophils # 0.1 Nucleated Red Blood Cells # 0.0 Sodium Level 135 Potassium Level 3.9 Chloride Level 99 Carbon Dioxide Level 24 Anion Gap 16 Blood Urea Nitrogen 25 H Creatinine 1.12 H Glucose Level 137 # Calcium Level 9.6 Medications Medications Current Medications Ondansetron HCl (Zofran Inj) 4 mg Q6H PRN IV NAUSEA AND/OR VOMITING Last administered on 12/30/16 23:14; Admin Dose 4 MG; Start 12/17/16 at 13:00 Morphine Sulfate (morphine) 1 mg Q4H PRN IV PAIN LEVEL 7-10; Start 12/17/16 at 13:00 Pantoprazole (Protonix Tab) 40 mg DAILY@06 PO Last administered on 01/04/17 05 :20; Admin Dose 40 MG; Start 12/18/16 at 06:00 Acetaminophen (Tylenol Tab) 500 mg Q4H PRN PO PAIN AND OR ELEVATED TEMP Last administered on 01/03/17 22:10; Admin Dose 500 MG; Start 12/17/16 at 22:30 Albuterol (Ventolin Hfa) 2 puff Q4H PRN INH WHEEZING AND SOB; Start 12/17/16 at 22:30 Folic Acid (Folic Acid) 1 mg DAILY PO Last administered on 01/04/17 09:33; Admin Dose 1 MG; Start 12/18/16 at 09:00 Hydroxyzine Pamoate (Vistaril) 25 mg QHS PRN PO ITCHING Last administered on 02:39; Admin Dose 25 MG; Start 12/17/16 at 22:30 Magnesium Chloride (Mag 64) 64 mg BID PO Last administered on 01/04/17 09:39; Admin Dose 64 MG; Start 12/17/16 at 23:30 Famotidine (Pepcid) 20 mg Q24H PO Last administered on 01/03/17 22:10; Admin Dose 20 MG; Start 12/17/16 at 22:30 Mupirocin (Bactroban) 1 applic BID TOP Last administered on 01/04/17 09:33; Admin Dose 1 APPLIC; Start 12/19/16 at 21:00 Simethicone (Mylicon) 80 mg BID PRN PO DISTENSION/GAS/BLOATING Last administered on 01/01/17 08:44; Admin Dose 80 MG; Start 12/22/16 at 14:00 Metoprolol Tartrate (Lopressor) 5 mg Q4H PRN IV HR>110 Hold SBP<100; Start at 18:00 Midodrine (Proamatine) 5 mg Q8 PRN PO SBP <100 Last administered on 01/04/17 05:21; Admin Dose 5 MG; Start 12/30/16 at 22:00 Atenolol 12.5 mg 12.5 mg BID NGT Last administered on 12/31/16 20:12; Admin Dose 12.5 MG; Start 12/30/16 at 21:00 Vancomycin HCl/ Sodium Chloride (Vancocin/NS) 150 ml @ 75 mls/hr Q24H IVPB Last administered on 01/04/17 02:00; Admin Dose 75 MLS/HR; Start 01/01/17 at 02 :00 IRENE MADERA MD Jan 04, 2017 12:54
--- NOTE | 2017-01-04 13:07 | CONS ---
Date/Time of Note Date/Time of Note DATE: 01/04/17 TIME: 13:06 Assessment/Plan Assessment/Plan Additional Assessment/Plan 1. Acute kidney injury secondary to severe prerenal azotemia secondary to nausea, vomiting and decreased p.o. intake. 2. Hyponatremia with a sodium of 128 secondary to hypovolemic hyponatremia. 4. Hyperkalemia secondary to worsening acute kidney injury and renal failure.- inow improved 5. Metabolic acidosis with bicarbonate of 16 secondary to increased ileostomy output.- now becomes severe with PH low on ABG - s/p HCO3 drip PLAN: Electrolytes stable today CT chest showed atelecatasis, No acute findigs Cr 1.1 will follow up Consultation Date/Type/Reason Admit Date/Time Dec 17, 2016 at 08:55 Initial Consult Date Dec Type of Consultation: NEPHROLOGY Referring Provider: CARLOS RODRIGUEZ MD 24 HR Interval Summary Free Text/Dictation doing ok, BP stable, afebrile ,e lectrolyes table, Cr 1.12 Exam/Review of Systems Vital Signs Vitals Vital Signs Date Time Temp Pulse Resp B/P Pulse Ox O2 Delivery O2 Flow Rate FiO2 01/04/17 12:12 107 01/04/17 11:45 98.2 16 98/53 100 Intake and Output 01/03/17 01/03/17 01/04/17 15:00 23:00 07:00 Intake Total 1280 ml 1600 ml Output Total 1500 ml 400 ml Balance -220 ml 1200 ml Exam Constitutional: alert, oriented Head: normocephalic Neck: supple Respiratory: normal air movement Cardiovascular: nl pulses Gastrointestinal: non-tender, other (Ileostomy), soft Musculoskeletal: nl gait and stance Extremities: normal pulses 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 Results Result Diagram: 01/04/17 0850 01/04/17 0850 Results 24 hrs Laboratory Tests Test 01/04/17 08:50 White Blood Count 9.2 Red Blood Count 2.88 L Hemoglobin 9.0 L Hematocrit 26.8 L Mean Corpuscular Volume 93.1 Mean Corpuscular Hemoglobin 31.3 Mean Corpuscular Hemoglobin Concent 33.6 Red Cell Distribution Width 12.4 Platelet Count 423 H Mean Platelet Volume 9.6 Neutrophils % 82.6 H Lymphocytes % 5.6 L Monocytes % 4.1 Eosinophils % 6.5 Basophils % 0.5 Nucleated Red Blood Cells % 0.0 Neutrophils # 7.6 H Lymphocytes # 0.5 L Monocytes # 0.4 Eosinophils # 0.6 H Basophils # 0.1 Nucleated Red Blood Cells # 0.0 Sodium Level 135 Potassium Level 3.9 Chloride Level 99 Carbon Dioxide Level 24 Anion Gap 16 Blood Urea Nitrogen 25 H Creatinine 1.12 H Glucose Level 137 # Calcium Level 9.6 Medications Medications Current Medications Ondansetron HCl (Zofran Inj) 4 mg Q6H PRN IV NAUSEA AND/OR VOMITING Last administered on 12/30/16 23:14; Admin Dose 4 MG; Start 12/17/16 at 13:00 Morphine Sulfate (morphine) 1 mg Q4H PRN IV PAIN LEVEL 7-10; Start 12/17/16 at 13:00 Pantoprazole (Protonix Tab) 40 mg DAILY@06 PO Last administered on 01/04/17 05 :20; Admin Dose 40 MG; Start 12/18/16 at 06:00 Acetaminophen (Tylenol Tab) 500 mg Q4H PRN PO PAIN AND OR ELEVATED TEMP Last administered on 01/03/17 22:10; Admin Dose 500 MG; Start 12/17/16 at 22:30 Albuterol (Ventolin Hfa) 2 puff Q4H PRN INH WHEEZING AND SOB; Start 12/17/16 at 22:30 Folic Acid (Folic Acid) 1 mg DAILY PO Last administered on 01/04/17 09:33; Admin Dose 1 MG; Start 12/18/16 at 09:00 Hydroxyzine Pamoate (Vistaril) 25 mg QHS PRN PO ITCHING Last administered on 02:39; Admin Dose 25 MG; Start 12/17/16 at 22:30 Magnesium Chloride (Mag 64) 64 mg BID PO Last administered on 01/04/17 09:39; Admin Dose 64 MG; Start 12/17/16 at 23:30 Famotidine (Pepcid) 20 mg Q24H PO Last administered on 01/03/17 22:10; Admin Dose 20 MG; Start 12/17/16 at 22:30 Mupirocin (Bactroban) 1 applic BID TOP Last administered on 01/04/17 09:33; Admin Dose 1 APPLIC; Start 12/19/16 at 21:00 Simethicone (Mylicon) 80 mg BID PRN PO DISTENSION/GAS/BLOATING Last administered on 01/01/17 08:44; Admin Dose 80 MG; Start 12/22/16 at 14:00 Metoprolol Tartrate (Lopressor) 5 mg Q4H PRN IV HR>110 Hold SBP<100; Start at 18:00 Midodrine (Proamatine) 5 mg Q8 PRN PO SBP <100 Last administered on 01/04/17 05:21; Admin Dose 5 MG; Start 12/30/16 at 22:00 Atenolol 12.5 mg 12.5 mg BID NGT Last administered on 12/31/16 20:12; Admin Dose 12.5 MG; Start 12/30/16 at 21:00 Vancomycin HCl/ Sodium Chloride (Vancocin/NS) 150 ml @ 75 mls/hr Q24H IVPB Last administered on 01/04/17 02:00; Admin Dose 75 MLS/HR; Start 01/01/17 at 02 :00 Miscellaneous Information (*Rx Drug Level Order Reminder*) VANCOMYCIN TROUGH AT 0100 ONCE ONCE XX ; Start 01/05/17 at 01:00; Stop 01/05/17 at 01:01 ROHAN VELÁZQUEZ MD Jan 04, 2017 13:07
--- NOTE | 2017-01-04 14:18 | PN ---
Date/Time of Note Date/Time of Note DATE: 01/04/17 TIME: 14:17 Assessment/Plan Lines/Catheters IV Catheter Type (from [facility]): PORT A CATH Car in Place (from [facility]): No Assessment/Plan Chief Complaint/Hosp Course -Central stenosis and bacteremia: It seems the patient has had recurrent admission for multiple medical issues that are currently being managed. During her workup, possible catheter infection has been suggested and recommendation for removal. However, there are no clinical findings that the port catheter is currently infected as the patient does not have any erythema or tenderness or drainage around the site of the port catheter. Would recommend not removing the catheter at this time unless there are clear clinical indications to remove the catheter, as the patient is a very difficult access patient and has had multiple bilateral upper extremity PICC line placements and has a component of central stenosis. -Optimize vascular status (BP meds, diet, nutrition, exercise, sugar control, antiplatelets). -Optimize medical status. -Continue with antibiotics and check new blood cultures. -Discussed findings, plan and management with the patient and she understands. The patient also would like to defer removal of the port catheter as she understands that she is also a very difficult access and no clinical findings at the site of the port suggests that the port is currently infected. -Thank you for allowing us to partake in the care of your patient. Please call with any questions. Problems: Subjective 24 Hr Interval Summary no new vascular events overnight Exam/Review of Systems Vital Signs Vitals Vital Signs Date Time Temp Pulse Resp B/P Pulse Ox O2 Delivery O2 Flow Rate FiO2 01/06/17 12:21 100 01/06/17 11:41 98.2 18 105/57 97 Intake and Output 01/05/17 01/05/17 01/06/17 15:00 23:00 07:00 Intake Total 750 ml 800 ml Output Total 600 ml 400 ml Balance 150 ml 400 ml Exam Free Text/Dictation GENERAL: Alert and oriented x3, PULMONARY: Clear to auscultation bilaterally, Right chest wall port catheter intact and functional. No erythema, no tenderness and no drainage identified. CARDIOVASCULAR: S1, S2 present ABDOMEN: Soft, nontender, nondistended. Bowel sounds positive. Multiple abdominal surgeries. Stoma is viable and intact. EXTREMITIES: Palpable femoral pulse, nonpalpable pedal pulse. Motor, sensory intact. Cap refill 2 to 3 seconds. No surgical scars. Results Result Diagram: 01/04/17 0850 01/04/17 0850 WILIAN CARLIN MD Jan 04, 2017 14:18
--- NOTE | 2017-01-04 18:15 | CONS ---
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-) - low-level nonspecific increase in tracer uptake within the mediastinum on WBC tagged scan 12/31/2016 recommendations - pending results: blood cultures from 12/31/2016 ([facility]), 01/02/2017 (negative so far) - recommend removal of port because it is probably the source of recurrent bacteremia; pt needs an alternative IV access for IV vancomycin once port is removed. - continue IV vancomycin (12/27/2016-) Management d/w patient and Dr. Tomlinson Problems: Consultation Date/Type/Reason Admit Date/Time Dec 17, 2016 at 08:55 Initial Consult Date Type of Consultation: Infectious Disease Referring Provider: CARLOS RODRIGUEZ MD 24 HR Interval Summary Free Text/Dictation Pt is concerned about removing her port since she has poor IV access; states she had significant pain last time she had a PICC. Currently denies pain, SOB, n/v/d, dysuria. Exam/Review of Systems Vital Signs Vitals Vital Signs Date Time Temp Pulse Resp B/P Pulse Ox O2 Delivery O2 Flow Rate FiO2 01/04/17 16:17 98.3 103 16 90/54 96 Intake and Output 01/03/17 01/03/17 01/04/17 15:00 23:00 07:00 Intake Total 1280 ml 1600 ml Output Total 1500 ml 400 ml Balance -220 ml 1200 ml Exam Constitutional: alert, oriented, thin Head: atraumatic, normocephalic Eyes: nl conjunctiva, nl lids Neck: supple Respiratory: diminished breath sounds Cardiovascular: nl pulses, regular rate and rhythm Gastrointestinal: non-tender, other (colostomy in place), soft Musculoskeletal: nl extremities to inspection Extremities: No edema Skin: warm, dry, other (R chest port site is clean) Results Result Diagram: 01/04/17 0850 01/04/17 0850 Results 24 hrs Laboratory Tests Test 01/04/17 08:50 White Blood Count 9.2 Red Blood Count 2.88 L Hemoglobin 9.0 L Hematocrit 26.8 L Mean Corpuscular Volume 93.1 Mean Corpuscular Hemoglobin 31.3 Mean Corpuscular Hemoglobin Concent 33.6 Red Cell Distribution Width 12.4 Platelet Count 423 H Mean Platelet Volume 9.6 Neutrophils % 82.6 H Lymphocytes % 5.6 L Monocytes % 4.1 Eosinophils % 6.5 Basophils % 0.5 Nucleated Red Blood Cells % 0.0 Neutrophils # 7.6 H Lymphocytes # 0.5 L Monocytes # 0.4 Eosinophils # 0.6 H Basophils # 0.1 Nucleated Red Blood Cells # 0.0 Sodium Level 135 Potassium Level 3.9 Chloride Level 99 Carbon Dioxide Level 24 Anion Gap 16 Blood Urea Nitrogen 25 H Creatinine 1.12 H Glucose Level 137 # Calcium Level 9.6 Medications Medications Current Medications Ondansetron HCl (Zofran Inj) 4 mg Q6H PRN IV NAUSEA AND/OR VOMITING Last administered on 12/30/16 23:14; Admin Dose 4 MG; Start 12/17/16 at 13:00 Morphine Sulfate (morphine) 1 mg Q4H PRN IV PAIN LEVEL 7-10; Start 12/17/16 at 13:00 Pantoprazole (Protonix Tab) 40 mg DAILY@06 PO Last administered on 01/04/17 05 :20; Admin Dose 40 MG; Start 12/18/16 at 06:00 Acetaminophen (Tylenol Tab) 500 mg Q4H PRN PO PAIN AND OR ELEVATED TEMP Last administered on 01/03/17 22:10; Admin Dose 500 MG; Start 12/17/16 at 22:30 Albuterol (Ventolin Hfa) 2 puff Q4H PRN INH WHEEZING AND SOB; Start 12/17/16 at 22:30 Folic Acid (Folic Acid) 1 mg DAILY PO Last administered on 01/04/17 09:33; Admin Dose 1 MG; Start 12/18/16 at 09:00 Hydroxyzine Pamoate (Vistaril) 25 mg QHS PRN PO ITCHING Last administered on 02:39; Admin Dose 25 MG; Start 12/17/16 at 22:30 Magnesium Chloride (Mag 64) 64 mg BID PO Last administered on 01/04/17 09:39; Admin Dose 64 MG; Start 12/17/16 at 23:30 Famotidine (Pepcid) 20 mg Q24H PO Last administered on 01/03/17 22:10; Admin Dose 20 MG; Start 12/17/16 at 22:30 Mupirocin (Bactroban) 1 applic BID TOP Last administered on 01/04/17 09:33; Admin Dose 1 APPLIC; Start 12/19/16 at 21:00 Simethicone (Mylicon) 80 mg BID PRN PO DISTENSION/GAS/BLOATING Last administered on 01/01/17 08:44; Admin Dose 80 MG; Start 12/22/16 at 14:00 Metoprolol Tartrate (Lopressor) 5 mg Q4H PRN IV HR>110 Hold SBP<100; Start at 18:00 Midodrine (Proamatine) 5 mg Q8 PRN PO SBP <100 Last administered on 01/04/17 05:21; Admin Dose 5 MG; Start 12/30/16 at 22:00 Atenolol 12.5 mg 12.5 mg BID NGT Last administered on 12/31/16 20:12; Admin Dose 12.5 MG; Start 12/30/16 at 21:00 Vancomycin HCl/ Sodium Chloride (Vancocin/NS) 150 ml @ 75 mls/hr Q24H IVPB Last administered on 01/04/17 02:00; Admin Dose 75 MLS/HR; Start 01/01/17 at 02 :00 Miscellaneous Information (*Rx Drug Level Order Reminder*) VANCOMYCIN TROUGH AT 0100 ONCE ONCE XX ; Start 01/05/17 at 01:00; Stop 01/05/17 at 01:01 RINKU BAILON NP Jan 04, 2017 18:15
[2017-01-04] MEDS: FAMOTIDINE 20 MG TAB PO SCH (22:18)
[2017-01-04] MEDS: hydrOXYzine PAMOATE 25 MG CAP PO PRN (22:18)
[2017-01-05] VITALS (11 sets, daily range): BP systolic 93–98; BP diastolic 54–58; PULSE 90–112; RESP 17–18
[2017-01-05] MEDS: VANCOMYCIN 750 MG in SOD CHLORIDE 0.9% 150 ML IVPB SCH (02:56)
[2017-01-05] MEDS: PANTOPRAZOLE (EC) 40 MG TAB PO SCH (06:06)
[2017-01-05] MEDS: ATENOLOL 25 MG TAB NGT SCH ×2 (09:00→21:00)
[2017-01-05] MEDS: MAGNESIUM CHLORIDE (SR) 64 MG TAB PO SCH ×2 (09:04→21:20)
[2017-01-05] MEDS: MUPIROCIN 2% 22 GM OINT TOP SCH ×2 (09:04→21:20)
[2017-01-05] MEDS: FOLIC ACID 1 MG TAB PO SCH (09:04)
--- NOTE | 2017-01-05 12:13 | CONS ---
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-) - low-level nonspecific increase in tracer uptake within the mediastinum on WBC tagged scan 12/31/2016 recommendations - pending results: blood cultures from 12/31/2016 ([facility]), 01/02/2017 (negative so far) - recommend removal of port because it is probably the source of recurrent bacteremia; pt needs an alternative IV access for IV vancomycin once port is removed. - continue IV vancomycin (12/27/2016-) Management d/w patient and Dr. Tomlinson Problems: Consultation Date/Type/Reason Admit Date/Time Dec 17, 2016 at 08:55 Type of Consultation: Infectious Disease Referring Provider: CARLOS RODRIGUEZ MD 24 HR Interval Summary Free Text/Dictation Anxious about port removal. Denies pain, SOB, n/v Exam/Review of Systems Vital Signs Vitals Vital Signs Date Time Temp Pulse Resp B/P Pulse Ox O2 Delivery O2 Flow Rate FiO2 01/05/17 11:28 99.0 99 18 95/54 99 Intake and Output 01/04/17 01/04/17 01/05/17 15:00 23:00 07:00 Intake Total 1000 ml Output Total 400 ml 1000 ml Balance -400 ml 0 ml Exam Constitutional: alert, oriented, thin Head: atraumatic, normocephalic Eyes: nl conjunctiva, nl lids Neck: supple Respiratory: diminished breath sounds Cardiovascular: nl pulses, regular rate and rhythm Gastrointestinal: non-tender, other (colostomy in place), soft Musculoskeletal: nl extremities to inspection Extremities: No edema Skin: warm, dry, other (R chest port site is clean) Results Result Diagram: 01/04/17 0850 01/04/17 0850 Results 24 hrs Laboratory Tests Test 01/05/17 00:55 Vancomycin Level Trough 11.5 Medications Medications Current Medications Ondansetron HCl (Zofran Inj) 4 mg Q6H PRN IV NAUSEA AND/OR VOMITING Last administered on 12/30/16 23:14; Admin Dose 4 MG; Start 12/17/16 at 13:00 Morphine Sulfate (morphine) 1 mg Q4H PRN IV PAIN LEVEL 7-10; Start 12/17/16 at 13:00 Pantoprazole (Protonix Tab) 40 mg DAILY@06 PO Last administered on 01/05/17 06 :06; Admin Dose 40 MG; Start 12/18/16 at 06:00 Acetaminophen (Tylenol Tab) 500 mg Q4H PRN PO PAIN AND OR ELEVATED TEMP Last administered on 01/03/17 22:10; Admin Dose 500 MG; Start 12/17/16 at 22:30 Albuterol (Ventolin Hfa) 2 puff Q4H PRN INH WHEEZING AND SOB; Start 12/17/16 at 22:30 Folic Acid (Folic Acid) 1 mg DAILY PO Last administered on 01/05/17 09:04; Admin Dose 1 MG; Start 12/18/16 at 09:00 Hydroxyzine Pamoate (Vistaril) 25 mg QHS PRN PO ITCHING Last administered on 22:18; Admin Dose 25 MG; Start 12/17/16 at 22:30 Magnesium Chloride (Mag 64) 64 mg BID PO Last administered on 01/05/17 09:04; Admin Dose 64 MG; Start 12/17/16 at 23:30 Famotidine (Pepcid) 20 mg Q24H PO Last administered on 01/04/17 22:18; Admin Dose 20 MG; Start 12/17/16 at 22:30 Mupirocin (Bactroban) 1 applic BID TOP Last administered on 01/05/17 09:04; Admin Dose 1 APPLIC; Start 12/19/16 at 21:00 Simethicone (Mylicon) 80 mg BID PRN PO DISTENSION/GAS/BLOATING Last administered on 01/01/17 08:44; Admin Dose 80 MG; Start 12/22/16 at 14:00 Metoprolol Tartrate (Lopressor) 5 mg Q4H PRN IV HR>110 Hold SBP<100; Start at 18:00 Midodrine (Proamatine) 5 mg Q8 PRN PO SBP <100 Last administered on 01/04/17 05:21; Admin Dose 5 MG; Start 12/30/16 at 22:00 Atenolol 12.5 mg 12.5 mg BID NGT Last administered on 12/31/16 20:12; Admin Dose 12.5 MG; Start 12/30/16 at 21:00 Vancomycin HCl/ Sodium Chloride (Vancocin/NS) 150 ml @ 75 mls/hr Q24H IVPB Last administered on 01/05/17 02:56; Admin Dose 75 MLS/HR; Start 01/01/17 at 02 :00 RINKU BAILON NP Jan 05, 2017 12:13
--- NOTE | 2017-01-05 12:48 | PN ---
Date/Time of Note Date/Time of Note DATE: 01/05/17 TIME: 12:48 Assessment/Plan VTE Prophylaxis VTE Prophylaxis Intervention: other Lines/Catheters IV Catheter Type (from [facility]): PORT A CATH Urinary Cath still in place: No Assessment/Plan Chief Complaint/Hosp Course - Sepsis with staph bacteremia, continue vancomycin, Dr. Ba is following an infection disease consultation. Dr. Raymond is asked to see patient in vascular surgery consultation for removal of right chest Port-A-Cath. - Metabolic acidosis, continue IV fluids with bicarb, Dr. Spain is following in nephrology consultation. - Intractable nausea and vomiting, resolved. Dr. Mendez is following in gastroenterology consultation. - Acute kidney injury. Dr. Spain is following in nephrology consultation. Continue IV fluids monitor electrolytes. - Hirschsprung disease. - Ileostomy. Problems: Subjective 24 Hr Interval Summary Free Text/Dictation Patient has no complaints Exam/Review of Systems Vital Signs Vitals Vital Signs Date Time Temp Pulse Resp B/P Pulse Ox O2 Delivery O2 Flow Rate FiO2 01/05/17 12:44 98 01/05/17 11:28 99.0 18 95/54 99 Intake and Output 01/04/17 01/04/17 01/05/17 15:00 23:00 07:00 Intake Total 1000 ml Output Total 400 ml 1000 ml Balance -400 ml 0 ml Exam Constitutional: well developed Head: atraumatic, normocephalic Neck: supple Respiratory: clear to auscultation Cardiovascular: regular rate and rhythm Gastrointestinal: non-tender, soft Extremities: normal pulses Results Result Diagram: 01/04/17 0850 01/04/17 0850 Results 24 hrs Laboratory Tests Test 01/05/17 00:55 Vancomycin Level Trough 11.5 Medications Medications Current Medications Ondansetron HCl (Zofran Inj) 4 mg Q6H PRN IV NAUSEA AND/OR VOMITING Last administered on 12/30/16 23:14; Admin Dose 4 MG; Start 12/17/16 at 13:00 Morphine Sulfate (morphine) 1 mg Q4H PRN IV PAIN LEVEL 7-10; Start 12/17/16 at 13:00 Pantoprazole (Protonix Tab) 40 mg DAILY@06 PO Last administered on 01/05/17 06 :06; Admin Dose 40 MG; Start 12/18/16 at 06:00 Acetaminophen (Tylenol Tab) 500 mg Q4H PRN PO PAIN AND OR ELEVATED TEMP Last administered on 01/03/17 22:10; Admin Dose 500 MG; Start 12/17/16 at 22:30 Albuterol (Ventolin Hfa) 2 puff Q4H PRN INH WHEEZING AND SOB; Start 12/17/16 at 22:30 Folic Acid (Folic Acid) 1 mg DAILY PO Last administered on 01/05/17 09:04; Admin Dose 1 MG; Start 12/18/16 at 09:00 Hydroxyzine Pamoate (Vistaril) 25 mg QHS PRN PO ITCHING Last administered on 22:18; Admin Dose 25 MG; Start 12/17/16 at 22:30 Magnesium Chloride (Mag 64) 64 mg BID PO Last administered on 01/05/17 09:04; Admin Dose 64 MG; Start 12/17/16 at 23:30 Famotidine (Pepcid) 20 mg Q24H PO Last administered on 01/04/17 22:18; Admin Dose 20 MG; Start 12/17/16 at 22:30 Mupirocin (Bactroban) 1 applic BID TOP Last administered on 01/05/17 09:04; Admin Dose 1 APPLIC; Start 12/19/16 at 21:00 Simethicone (Mylicon) 80 mg BID PRN PO DISTENSION/GAS/BLOATING Last administered on 01/01/17 08:44; Admin Dose 80 MG; Start 12/22/16 at 14:00 Metoprolol Tartrate (Lopressor) 5 mg Q4H PRN IV HR>110 Hold SBP<100; Start at 18:00 Midodrine (Proamatine) 5 mg Q8 PRN PO SBP <100 Last administered on 01/04/17 05:21; Admin Dose 5 MG; Start 12/30/16 at 22:00 Atenolol 12.5 mg 12.5 mg BID NGT Last administered on 12/31/16 20:12; Admin Dose 12.5 MG; Start 12/30/16 at 21:00 Vancomycin HCl/ Sodium Chloride (Vancocin/NS) 150 ml @ 75 mls/hr Q24H IVPB Last administered on 6/25/17at 02:56; Admin Dose 75 MLS/HR; Start 01/01/17 at 02 :00 GINGER MOSES Jan 05, 2017 12:48
--- NOTE | 2017-01-05 15:46 | CONS ---
Date/Time of Note Date/Time of Note DATE: 01/05/17 TIME: 15:45 Assessment/Plan Assessment/Plan Additional Assessment/Plan 1. Tachyarrhythmia at this time, most consistent with sinus tachycardia.- overall improved intially after IVF/midodrine BP support/digoxin/NL TSH/FT4. NL EF by echo. Having some mild recurrent tachycardia -HR better now, Rx in progress. BETTER overall. 2. Hypotension, borderline and labile.-on midodrine - no symptoms. STABLE - will monitor for now. 3. Abnormal electrocardiogram with nonspecific ST-T abnormalities, assess for acute coronary syndrome.NL EF by echo this admit/negative trop 4. History of Hirschsprung disease- GI follows. 5. Possible anxiety. 6. Acidosis- resolving. 7. Renal failure- improving. 8. Status post ileostomy. 9.Bacteremia-by blood cultures Consultation Date/Type/Reason Admit Date/Time Dec 17, 2016 at 08:55 Type of Consultation: Infectious Disease Referring Provider: CARLOS RODRIGUEZ MD 24 HR Interval Summary Free Text/Dictation NO acute change -OK to hydrate as needed. ROS: No fever, no chills, no nausea, no vomiting, no diarrhea/constipation No recent weight changes No chest pain, no PND, no orthopnea No dizziness, blurred vision No thirst, no heat or cold intolerance Exam/Review of Systems Vital Signs Vitals Vital Signs Date Time Temp Pulse Resp B/P Pulse Ox O2 Delivery O2 Flow Rate FiO2 01/05/17 15:42 98.5 108 18 96/58 99 Intake and Output 01/04/17 01/04/17 01/05/17 15:00 23:00 07:00 Intake Total 1000 ml Output Total 400 ml 1000 ml Balance -400 ml 0 ml Exam General: WN/WD/NAD, AOx 3 HEENT: Unicetric/atraumatic/EOMI (follow commands) NECK: JVD elevated, no thyromegaly Lymph: no lymphadenopathy HEART: regular with no S3, II/ systolic murmur at apex LUNGS: Coarse sounds ABD: soft, NT, ND, +BS : Intact Neuro: non focal SKIN: chronic changes EXT: trace edema Results Result Diagram: 01/04/17 0850 01/04/17 0850 Results 24 hrs Laboratory Tests Test 01/05/17 00:55 Vancomycin Level Trough 11.5 Medications Medications Current Medications Ondansetron HCl (Zofran Inj) 4 mg Q6H PRN IV NAUSEA AND/OR VOMITING Last administered on 12/30/16 23:14; Admin Dose 4 MG; Start 12/17/16 at 13:00 Morphine Sulfate (morphine) 1 mg Q4H PRN IV PAIN LEVEL 7-10; Start 12/17/16 at 13:00 Pantoprazole (Protonix Tab) 40 mg DAILY@06 PO Last administered on 01/05/17 06 :06; Admin Dose 40 MG; Start 12/18/16 at 06:00 Acetaminophen (Tylenol Tab) 500 mg Q4H PRN PO PAIN AND OR ELEVATED TEMP Last administered on 01/03/17 22:10; Admin Dose 500 MG; Start 12/17/16 at 22:30 Albuterol (Ventolin Hfa) 2 puff Q4H PRN INH WHEEZING AND SOB; Start 12/17/16 at 22:30 Folic Acid (Folic Acid) 1 mg DAILY PO Last administered on 01/05/17 09:04; Admin Dose 1 MG; Start 12/18/16 at 09:00 Hydroxyzine Pamoate (Vistaril) 25 mg QHS PRN PO ITCHING Last administered on 22:18; Admin Dose 25 MG; Start 12/17/16 at 22:30 Magnesium Chloride (Mag 64) 64 mg BID PO Last administered on 01/05/17 09:04; Admin Dose 64 MG; Start 12/17/16 at 23:30 Famotidine (Pepcid) 20 mg Q24H PO Last administered on 01/04/17 22:18; Admin Dose 20 MG; Start 12/17/16 at 22:30 Mupirocin (Bactroban) 1 applic BID TOP Last administered on 01/05/17 09:04; Admin Dose 1 APPLIC; Start 12/19/16 at 21:00 Simethicone (Mylicon) 80 mg BID PRN PO DISTENSION/GAS/BLOATING Last administered on 01/01/17 08:44; Admin Dose 80 MG; Start 12/22/16 at 14:00 Metoprolol Tartrate (Lopressor) 5 mg Q4H PRN IV HR>110 Hold SBP<100; Start at 18:00 Midodrine (Proamatine) 5 mg Q8 PRN PO SBP <100 Last administered on 01/04/17 05:21; Admin Dose 5 MG; Start 12/30/16 at 22:00 Atenolol 12.5 mg 12.5 mg BID NGT Last administered on 12/31/16 20:12; Admin Dose 12.5 MG; Start 12/30/16 at 21:00 Vancomycin HCl/ Sodium Chloride (Vancocin/NS) 150 ml @ 75 mls/hr Q24H IVPB Last administered on 01/05/17 02:56; Admin Dose 75 MLS/HR; Start 01/01/17 at 02 :00 IRENE MADERA MD Jan 05, 2017 15:46
--- NOTE | 2017-01-05 16:49 | HP ---
DATE OF ADMISSION: 12/17/2016 VASCULAR SURGERY CONSULTATION Dear Doctors: Ms. Martin is a 41-year-old female known to our vascular surgery service group with a plethora of med ical conditions who has been admitted to [facility] secondary to workup for hyperk alemia and electrolyte derangements with nausea, vomiting and intractable abdominal pain. The patie nt has been medically managed and upon workup was identified to have bacteremia. The patient has be en treated with antibiotics at the moment and her last blood cultures have been negative that were d rawn on 01/02/2017. 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 Further, the patient reyes s had central line catheters in the past with some findings of central stenosis and not an easy cand idate for a port catheter placement. Suggestion of possible port catheter infection for workup was suggested for vascular surgery evaluation, possible removal. REVIEW OF SYSTEMS: A 14-point review performed and negative except what is mentioned in the HPI. PAST MEDICAL HISTORY: Entails Hirschsprung disease, chronic anemia, anemia of chronic disease. PAST SURGICAL HISTORY: Multiple abdominal surgeries, ileostomy and hyperkalemia, central stenosis p rocedures, multiple abdominal surgeries for Hirschsprung disease, status post ileostomy, multiple po rt catheter placements, multiple PICC line. FAMILY HISTORY: Positive for hypertension. SOCIAL HISTORY: Denies current tobacco, alcohol or illicit drug use. ALLERGIES: 1. CODEINE. 2. FERROUS SULFATE. PHYSICAL EXAMINATION: GENERAL: Alert and oriented x3, no apparent distress. HEENT: Normocephalic, atraumatic. EOMI. Mucosa moist. NECK: Supple. No carotid bruit. PULMONARY: Clear to auscultation bilaterally. No crackles. CARDIOVASCULAR: S1, S2 present. No murmurs. ABDOMEN: Soft, nontender, nondistended. Bowel sounds positive. Multiple abdominal surgeries. Sto ma is viable and intact. Right chest wall port catheter intact and functional. No erythema, no ten derness and no drainage identified. EXTREMITIES: Palpable femoral pulse, nonpalpable pedal pulse. Motor, sensory intact. Cap refill 2 to 3 seconds. No surgical scars. ASSESSMENT AND PLAN: 1. Central stenosis and bacteremia: It seems the patient has had recurrent admission for multiple medical issues that are currently being managed. During her workup, a suggestion of possible cathet er infection has been suggested and recommendation for removal. However, there are no clinical find ings that the port catheter is currently infected as the patient does not have any erythema or tende rness or drainage around the site of the port catheter. Would recommend not removing the catheter a t this time unless there are clear clinical indications to remove the catheter, as the patient is a very difficult access patient and has had multiple bilateral upper extremity PICC line placements an d has a component of central stenosis. 2. Optimize vascular status (BP meds, diet, nutrition, exercise, sugar control, antiplatelets). 3. Optimize medical status. 4. Continue with antibiotics and check new blood cultures. 5. Discussed findings, plan and management with the patient and she understands. The patient also would like to defer removal of the port catheter as she understands that she is also a very difficul t access and no clinical findings at the site of the port suggests that the port is currently infect ed. Thank you for allowing us to partake in the care of your patient. Please call with any questions. Dictated By: WILIAN LONGORIA/CRISTINA Conf#: [id number] DID#: [id number]
--- NOTE | 2017-01-05 18:18 | CONS ---
Date/Time of Note Date/Time of Note DATE: 01/05/17 TIME: 18:15 Assessment/Plan Assessment/Plan Additional Assessment/Plan 1. Acute kidney injury secondary to severe prerenal azotemia secondary to nausea, vomiting and decreased p.o. intake. 2. Hyponatremia with a sodium of 128 secondary to hypovolemic hyponatremia. 4. Hyperkalemia secondary to worsening acute kidney injury and renal failure.- inow improved 5. Metabolic acidosis with bicarbonate of 16 secondary to increased ileostomy output.- now becomes severe with PH low on ABG - s/p HCO3 drip PLAN: Electrolytes stable today CT chest showed atelecatasis, No acute findigs Cr 1.1 will follow up Consultation Date/Type/Reason Admit Date/Time Dec 17, 2016 at 08:55 Type of Consultation: Infectious Disease Referring Provider: CARLOS RODRIGUEZ MD 24 HR Interval Summary Free Text/Dictation feeling better, BP stable, afebrile ,electrolyses table, Cr 1.12, blood culture result pending- staff Exam/Review of Systems Vital Signs Vitals Vital Signs Date Time Temp Pulse Resp B/P Pulse Ox O2 Delivery O2 Flow Rate FiO2 01/05/17 16:15 102 01/05/17 15:42 98.5 18 96/58 99 Intake and Output 01/04/17 01/04/17 01/05/17 15:00 23:00 07:00 Intake Total 1000 ml Output Total 400 ml 1000 ml Balance -400 ml 0 ml Exam Constitutional: alert, oriented Respiratory: clear to auscultation, normal air movement Cardiovascular: nl pulses, regular rate and rhythm ([id number]) Gastrointestinal: non-tender, soft Musculoskeletal: nl extremities to inspection 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: nl mental status, nl speech Results Result Diagram: 01/04/17 0850 01/04/17 0850 Results 24 hrs Laboratory Tests Test 01/05/17 00:55 Vancomycin Level Trough 11.5 Medications Medications Current Medications Ondansetron HCl (Zofran Inj) 4 mg Q6H PRN IV NAUSEA AND/OR VOMITING Last administered on 12/30/16t 23:14; Admin Dose 4 MG; Start 12/17/16 at 13:00 Morphine Sulfate (morphine) 1 mg Q4H PRN IV PAIN LEVEL 7-10; Start 12/17/16 at 13:00 Pantoprazole (Protonix Tab) 40 mg DAILY@06 PO Last administered on 01/05/17 06 :06; Admin Dose 40 MG; Start 12/18/16 at 06:00 Acetaminophen (Tylenol Tab) 500 mg Q4H PRN PO PAIN AND OR ELEVATED TEMP Last administered on 01/03/17 22:10; Admin Dose 500 MG; Start 12/17/16 at 22:30 Albuterol (Ventolin Hfa) 2 puff Q4H PRN INH WHEEZING AND SOB; Start 12/17/16 at 22:30 Folic Acid (Folic Acid) 1 mg DAILY PO Last administered on 01/05/17 09:04; Admin Dose 1 MG; Start 12/18/16 at 09:00 Hydroxyzine Pamoate (Vistaril) 25 mg QHS PRN PO ITCHING Last administered on 22:18; Admin Dose 25 MG; Start 12/17/16 at 22:30 Magnesium Chloride (Mag 64) 64 mg BID PO Last administered on 01/05/17 09:04; Admin Dose 64 MG; Start 12/17/16 at 23:30 Famotidine (Pepcid) 20 mg Q24H PO Last administered on 01/04/17 22:18; Admin Dose 20 MG; Start 12/17/16 at 22:30 Mupirocin (Bactroban) 1 applic BID TOP Last administered on 01/05/17 09:04; Admin Dose 1 APPLIC; Start 12/19/16 at 21:00 Simethicone (Mylicon) 80 mg BID PRN PO DISTENSION/GAS/BLOATING Last administered on 01/01/17 08:44; Admin Dose 80 MG; Start 12/22/16 at 14:00 Metoprolol Tartrate (Lopressor) 5 mg Q4H PRN IV HR>110 Hold SBP<100; Start at 18:00 Midodrine (Proamatine) 5 mg Q8 PRN PO SBP <100 Last administered on 01/04/17 05:21; Admin Dose 5 MG; Start 12/30/16 at 22:00 Atenolol 12.5 mg 12.5 mg BID NGT Last administered on 12/31/16 20:12; Admin Dose 12.5 MG; Start 6/19/17 at 21:00 Vancomycin HCl/ Sodium Chloride (Vancocin/NS) 150 ml @ 75 mls/hr Q24H IVPB Last administered on 01/05/17t 02:56; Admin Dose 75 MLS/HR; Start 01/01/17 at 02 :00 DEVENDRA GOMES Jan 05, 2017 18:18
[2017-01-05] MEDS: FAMOTIDINE 20 MG TAB PO SCH (21:32)
[2017-01-06] VITALS (12 sets, daily range): BP systolic 89–105; BP diastolic 51–61; PULSE 83–117; RESP 18–19
[2017-01-06] MEDS: hydrOXYzine PAMOATE 25 MG CAP PO PRN ×2 (00:15→23:25)
[2017-01-06] MEDS: VANCOMYCIN 750 MG in SOD CHLORIDE 0.9% 150 ML IVPB SCH (02:46)
[2017-01-06] MEDS: PANTOPRAZOLE (EC) 40 MG TAB PO SCH (05:58)
--- NOTE | 2017-01-06 08:29 | CONS ---
Date/Time of Note Date/Time of Note DATE: 01/06/17 TIME: 08:27 Assessment/Plan Assessment/Plan Additional Assessment/Plan 1. Tachyarrhythmia at this time, most consistent with sinus tachycardia.- overall improved initially after IVF/midodrine BP support/digoxin/NL TSH/FT4. NL EF by echo. Having some mild recurrent tachycardia -HR better now, Rx in progress. BETTER overall. 2. Hypotension, borderline and labile.-on midodrine - no symptoms. STABLE - will monitor for now. 3. Abnormal electrocardiogram with nonspecific ST-T abnormalities, assess for acute coronary syndrome.NL EF by echo this admit/negative trop 4. History of Hirschsprung disease- GI follows. 5. Possible anxiety. 6. Acidosis- better now. 7. Renal failure- improving - OK to hydrate as needed. . 8. Status post ileostomy. 9.Bacteremia-by blood cultures Consultation Date/Type/Reason Admit Date/Time Dec 17, 2016 at 08:55 Type of Consultation: Infectious Disease Referring Provider: CARLOS RODRIGUEZ MD 24 HR Interval Summary Free Text/Dictation NO acute change - stable overall - Ok to hydrate as needed. ROS: No fever, no chills, no nausea, no vomiting, no diarrhea/constipation No recent weight changes No chest pain, no PND, no orthopnea No dizziness, blurred vision No thirst, no heat or cold intolerance Exam/Review of Systems Vital Signs Vitals Vital Signs Date Time Temp Pulse Resp B/P Pulse Ox O2 Delivery O2 Flow Rate FiO2 01/06/17 07:44 97.8 95 19 95/61 97 Intake and Output 01/05/17 01/05/17 01/06/17 15:00 23:00 07:00 Intake Total 750 ml 800 ml Output Total 600 ml 400 ml Balance 150 ml 400 ml Exam General: thin/WD/NAD, AOx 3 HEENT: Unicetric/atraumatic/EOMI (follows commands) NECK: JVD elevated, no thyromegaly Lymph: no lymphadenopathy HEART: regular with no S3, II/ systolic murmur at apex LUNGS: Coarse sounds ABD: soft, NT, ND, +BS : Intact Neuro: non focal SKIN: chronic changes EXT: trace edema Results Result Diagram: 01/04/17 0850 01/04/17 0850 Medications Medications Current Medications Ondansetron HCl (Zofran Inj) 4 mg Q6H PRN IV NAUSEA AND/OR VOMITING Last administered on 12/30/16 23:14; Admin Dose 4 MG; Start 12/17/16 at 13:00 Morphine Sulfate (morphine) 1 mg Q4H PRN IV PAIN LEVEL 7-10; Start 12/17/16 at 13:00 Pantoprazole (Protonix Tab) 40 mg DAILY@06 PO Last administered on 01/06/17 05 :58; Admin Dose 40 MG; Start 12/18/16 at 06:00 Acetaminophen (Tylenol Tab) 500 mg Q4H PRN PO PAIN AND OR ELEVATED TEMP Last administered on 01/03/17 22:10; Admin Dose 500 MG; Start 12/17/16 at 22:30 Albuterol (Ventolin Hfa) 2 puff Q4H PRN INH WHEEZING AND SOB; Start 12/17/16 at 22:30 Folic Acid (Folic Acid) 1 mg DAILY PO Last administered on 01/05/17 09:04; Admin Dose 1 MG; Start 12/18/16 at 09:00 Hydroxyzine Pamoate (Vistaril) 25 mg QHS PRN PO ITCHING Last administered on 00:15; Admin Dose 25 MG; Start 12/17/16 at 22:30 Magnesium Chloride (Mag 64) 64 mg BID PO Last administered on 01/05/17 21:20; Admin Dose 64 MG; Start 12/17/16 at 23:30 Famotidine (Pepcid) 20 mg Q24H PO Last administered on 01/05/17 21:32; Admin Dose 20 MG; Start 12/17/16 at 22:30 Mupirocin (Bactroban) 1 applic BID TOP Last administered on 01/05/17 21:20; Admin Dose 1 APPLIC; Start 12/19/16 at 21:00 Simethicone (Mylicon) 80 mg BID PRN PO DISTENSION/GAS/BLOATING Last administered on 01/01/17 08:44; Admin Dose 80 MG; Start 12/22/16 at 14:00 Metoprolol Tartrate (Lopressor) 5 mg Q4H PRN IV HR>110 Hold SBP<100; Start at 18:00 Midodrine (Proamatine) 5 mg Q8 PRN PO SBP <100 Last administered on 01/04/17 05:21; Admin Dose 5 MG; Start 12/30/16 at 22:00 Atenolol 12.5 mg 12.5 mg BID NGT Last administered on 12/31/16 20:12; Admin Dose 12.5 MG; Start 12/30/16 at 21:00 Vancomycin HCl/ Sodium Chloride (Vancocin/NS) 150 ml @ 75 mls/hr Q24H IVPB Last administered on 01/06/17 02:46; Admin Dose 75 MLS/HR; Start 01/01/17 at 02 :00 IRENE MADERA MD Jan 06, 2017 08:28
[2017-01-06] MEDS: ATENOLOL 25 MG TAB NGT SCH ×2 (09:00→21:00)
[2017-01-06] MEDS: MAGNESIUM CHLORIDE (SR) 64 MG TAB PO SCH ×2 (09:08→21:23)
[2017-01-06] MEDS: FOLIC ACID 1 MG TAB PO SCH (09:08)
[2017-01-06] MEDS: MUPIROCIN 2% 22 GM OINT TOP SCH ×2 (09:09→21:23)
--- NOTE | 2017-01-06 12:52 | CONS ---
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-) - low-level nonspecific increase in tracer uptake within the mediastinum on WBC tagged scan 12/31/2016 recommendations - Dr. Raymond's notes reviewed; I recommend IV vancomycin (12/27/2016-) x2 weeks from the first negative blood culture result, i.e. 01/02/2017-01/16/2017 - check CBC and BMP at least once weekly while Pt's on antibiotic management d/w Pt and her RN Problems: Consultation Date/Type/Reason Admit Date/Time Dec 17, 2016 at 08:55 Type of Consultation: Infectious Disease Referring Provider: CARLOS RODRIGUEZ MD 24 HR Interval Summary Constitutional: improved Detailed Summary Eyes: no complaints ENT: no complaints Respiratory: no complaints Cardiovascular: no complaints Gastrointestinal: no complaints, passing stool (to ostomy bag) Genitourinary: no complaints Musculoskeletal: no complaints Skin: no complaints Neurologic: no complaints Exam/Review of Systems Vital Signs Vitals Vital Signs Date Time Temp Pulse Resp B/P Pulse Ox O2 Delivery O2 Flow Rate FiO2 01/06/17 12:21 100 01/06/17 11:41 98.2 18 105/57 97 Intake and Output 01/05/17 01/05/17 01/06/17 15:00 23:00 07:00 Intake Total 750 ml 800 ml Output Total 600 ml 400 ml Balance 150 ml 400 ml Exam Constitutional: alert, oriented Psych: nl mood/affect, no complaints Head: normocephalic Eyes: nl lids ENMT: nl external ears & nose, nl nasal mucosa & septum Neck: supple Gastrointestinal: other (ostomy bag) Musculoskeletal: nl extremities to inspection Extremities: No edema 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, nl mental status Skin: other (skin surrounding port is clean) Results Result Diagram: 01/04/17 0850 01/04/17 0850 Medications Medications Current Medications Ondansetron HCl (Zofran Inj) 4 mg Q6H PRN IV NAUSEA AND/OR VOMITING Last administered on 12/30/16 23:14; Admin Dose 4 MG; Start 12/17/16 at 13:00 Morphine Sulfate (morphine) 1 mg Q4H PRN IV PAIN LEVEL 7-10; Start 12/17/16 at 13:00 Pantoprazole (Protonix Tab) 40 mg DAILY@06 PO Last administered on 01/06/17 05 :58; Admin Dose 40 MG; Start 12/18/16 at 06:00 Acetaminophen (Tylenol Tab) 500 mg Q4H PRN PO PAIN AND OR ELEVATED TEMP Last administered on 01/03/17 22:10; Admin Dose 500 MG; Start 12/17/16 at 22:30 Albuterol (Ventolin Hfa) 2 puff Q4H PRN INH WHEEZING AND SOB; Start 12/17/16 at 22:30 Folic Acid (Folic Acid) 1 mg DAILY PO Last administered on 01/06/17 09:08; Admin Dose 1 MG; Start 12/18/16 at 09:00 Hydroxyzine Pamoate (Vistaril) 25 mg QHS PRN PO ITCHING Last administered on 00:15; Admin Dose 25 MG; Start 12/17/16 at 22:30 Magnesium Chloride (Mag 64) 64 mg BID PO Last administered on 01/06/17 09:08; Admin Dose 64 MG; Start 12/17/16 at 23:30 Famotidine (Pepcid) 20 mg Q24H PO Last administered on 01/05/17 21:32; Admin Dose 20 MG; Start 12/17/16 at 22:30 Mupirocin (Bactroban) 1 applic BID TOP Last administered on 01/06/17 09:09; Admin Dose 1 APPLIC; Start 12/19/16 at 21:00 Simethicone (Mylicon) 80 mg BID PRN PO DISTENSION/GAS/BLOATING Last administered on 01/01/17 08:44; Admin Dose 80 MG; Start 12/22/16 at 14:00 Metoprolol Tartrate (Lopressor) 5 mg Q4H PRN IV HR>110 Hold SBP<100; Start at 18:00 Midodrine (Proamatine) 5 mg Q8 PRN PO SBP <100 Last administered on 01/04/17 05:21; Admin Dose 5 MG; Start 12/30/16 at 22:00 Atenolol 12.5 mg 12.5 mg BID NGT Last administered on 12/31/16 20:12; Admin Dose 12.5 MG; Start 12/30/16 at 21:00 Vancomycin HCl/ Sodium Chloride (Vancocin/NS) 150 ml @ 75 mls/hr Q24H IVPB Last administered on 01/06/17 02:46; Admin Dose 75 MLS/HR; Start 01/01/17 at 02 :00 TAWANDA FINK M.D. Jan 06, 2017 12:52
--- NOTE | 2017-01-06 15:16 | PN ---
Date/Time of Note Date/Time of Note DATE: 01/06/17 TIME: 15:15 Assessment/Plan VTE Prophylaxis VTE Prophylaxis Intervention: SCD's Lines/Catheters IV C[facility] Type [facility]from [facility] PORTACATH Urinary Cath still in place: No Assessment/Plan Chief Complaint/Hosp Course ASSESSMENT AND PLAN: - Sepsis with staph bacteremia, continue vancomycin, Dr. Ba is following an infection disease consultation. Dr. Raymond is following in vascular surgery consultation. - Metabolic acidosis, continue IV fluids with bicarb, Dr. Spain is following in nephrology consultation. - Intractable nausea and vomiting, resolved. Dr. Mendez is following in gastroenterology consultation. - Acute kidney injury. Dr. Spain is following in nephrology consultation. Continue IV fluids monitor electrolytes. - Hirschsprung disease. - Ileostomy. Further recommendations based on clinical course. Plan of care discussed with Dr. Paez. 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 CLEANER II-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 Additional Comments Right chest Port-A-Cath Results Result Diagram: 01/04/17 0850 01/04/17 0850 Medications Medications Current Medications Ondansetron HCl (Zofran Inj) 4 mg Q6H PRN IV NAUSEA AND/OR VOMITING Last administered on 12/30/16 23:14; Admin Dose 4 MG; Start 12/17/16 at 13:00 Morphine Sulfate (morphine) 1 mg Q4H PRN IV PAIN LEVEL 7-10; Start 12/17/16 at 13:00 Pantoprazole (Protonix Tab) 40 mg DAILY@06 PO Last administered on 01/06/17 05 :58; Admin Dose 40 MG; Start 12/18/16 at 06:00 Acetaminophen (Tylenol Tab) 500 mg Q4H PRN PO PAIN AND OR ELEVATED TEMP Last administered on 01/03/17 22:10; Admin Dose 500 MG; Start 12/17/16 at 22:30 Albuterol (Ventolin Hfa) 2 puff Q4H PRN INH WHEEZING AND SOB; Start 12/17/16 at 22:30 Folic Acid (Folic Acid) 1 mg DAILY PO Last administered on 01/06/17 09:08; Admin Dose 1 MG; Start 12/18/16 at 09:00 Hydroxyzine Pamoate (Vistaril) 25 mg QHS PRN PO ITCHING Last administered on 00:15; Admin Dose 25 MG; Start 12/17/16 at 22:30 Magnesium Chloride (Mag 64) 64 mg BID PO Last administered on 01/06/17 09:08; Admin Dose 64 MG; Start 12/17/16 at 23:30 Famotidine (Pepcid) 20 mg Q24H PO Last administered on 01/05/17 21:32; Admin Dose 20 MG; Start 12/17/16 at 22:30 Mupirocin (Bactroban) 1 applic BID TOP Last administered on 01/06/17 09:09; Admin Dose 1 APPLIC; Start 12/19/16 at 21:00 Simethicone (Mylicon) 80 mg BID PRN PO DISTENSION/GAS/BLOATING Last administered on 01/01/17 08:44; Admin Dose 80 MG; Start 12/22/16 at 14:00 Metoprolol Tartrate (Lopressor) 5 mg Q4H PRN IV HR>110 Hold SBP<100; Start at 18:00 Midodrine (Proamatine) 5 mg Q8 PRN PO SBP <100 Last administered on 01/04/17 05:21; Admin Dose 5 MG; Start 12/30/16 at 22:00 Atenolol 12.5 mg 12.5 mg BID NGT Last administered on 12/31/16 20:12; Admin Dose 12.5 MG; Start 12/30/16 at 21:00 Vancomycin HCl/ Sodium Chloride (Vancocin/NS) 150 ml @ 75 mls/hr Q24H IVPB Last administered on 6/26/17at 02:46; Admin Dose 75 MLS/HR; Start 01/01/17 at 02 :00 ROMI ESPINO Jan 06, 2017 15:15
--- NOTE | 2017-01-06 15:20 | PN ---
Date/Time of Note Date/Time of Note DATE: 01/06/17 TIME: 15:20 Assessment/Plan Lines/Catheters IV Catheter Type (from [facility]): PORTACATH Car in Place (from [facility]): No Assessment/Plan Chief Complaint/Hosp Course -Central stenosis and bacteremia: It seems the patient has had recurrent admission for multiple medical issues that are currently being managed. Possible catheter infection, However, there are no clinical findings that the port catheter is currently infected as the patient does not have any erythema or tenderness or drainage around the site of the port catheter. Would recommend not removing the catheter at this time unless there are clear clinical indications to remove the catheter, as the patient is a very difficult access patient and has had multiple bilateral upper extremity PICC line placements and has a component of central stenosis. -Optimize vascular status (BP meds, diet, nutrition, exercise, sugar control, antiplatelets). -Optimize medical status. -Continue with antibiotics and check new blood cultures. -Discussed findings, plan and management with the patient and she understands. The patient also would like to defer removal of the port catheter as she understands that she is also a very difficult access and no clinical findings at the site of the port suggests that the port is currently infected. -Thank you for allowing us to partake in the care of your patient. Please call with any questions. Problems: Subjective 24 Hr Interval Summary no new vascular events overnight Exam/Review of Systems Vital Signs Vitals Vital Signs Date Time Temp Pulse Resp B/P Pulse Ox O2 Delivery O2 Flow Rate FiO2 01/06/17 12:21 100 01/06/17 11:41 98.2 18 105/57 97 Intake and Output 01/05/17 01/05/17 01/06/17 15:00 23:00 07:00 Intake Total 750 ml 800 ml Output Total 600 ml 400 ml Balance 150 ml 400 ml Exam Free Text/Dictation GENERAL: Alert and oriented x3, PULMONARY: Clear to auscultation bilaterally, Right chest wall port catheter intact and functional. No erythema, no tenderness and no drainage identified. CARDIOVASCULAR: S1, S2 present ABDOMEN: Soft, nontender, nondistended. Bowel sounds positive. Multiple abdominal surgeries. Stoma is viable and intact. EXTREMITIES: Palpable femoral pulse, nonpalpable pedal pulse. Motor, sensory intact. Cap refill 2 to 3 seconds. No surgical scars. Results Result Diagram: 01/04/17 0850 01/04/17 0850 WILIAN CARLIN MD Jan 06, 2017 15:20
--- NOTE | 2017-01-06 18:12 | CONS ---
Date/Time of Note Date/Time of Note DATE: 01/06/17 TIME: 18:11 Assessment/Plan Assessment/Plan Additional Assessment/Plan 1. Acute kidney injury secondary to severe prerenal azotemia secondary to nausea, vomiting and decreased p.o. intake. 2. Hyponatremia with a sodium of 128 secondary to hypovolemic hyponatremia. 4. Hyperkalemia secondary to worsening acute kidney injury and renal failure.- inow improved 5. Metabolic acidosis with bicarbonate of 16 secondary to increased ileostomy output.- now becomes severe with PH low on ABG - s/p HCO3 drip PLAN: Electrolytes stable today CT chest showed atelecatasis, No acute findigs Cr 1.1 will follow up Consultation Date/Type/Reason Admit Date/Time Dec 17, 2016 at 08:55 Initial Consult Date Dec Type of Consultation: NEPHROLOG Y Referring Provider: CARLOS RODRIGUEZ MD 24 HR Interval Summary Free Text/Dictation no acute events, BP stable, afebrile Exam/Review of Systems Vital Signs Vitals Vital Signs Date Time Temp Pulse Resp B/P Pulse Ox O2 Delivery O2 Flow Rate FiO2 01/06/17 16:11 106 01/06/17 15:46 98.0 19 89/51 100 Intake and Output 01/05/17 01/05/17 01/06/17 15:00 23:00 07:00 Intake Total 750 ml 800 ml Output Total 600 ml 400 ml Balance 150 ml 400 ml Results Result Diagram: 01/04/17 0850 01/04/17 0850 Medications Medications Current Medications Ondansetron HCl (Zofran Inj) 4 mg Q6H PRN IV NAUSEA AND/OR VOMITING Last administered on 12/30/16 23:14; Admin Dose 4 MG; Start 12/17/16 at 13:00 Morphine Sulfate (morphine) 1 mg Q4H PRN IV PAIN LEVEL 7-10; Start 12/17/16 at 13:00 Pantoprazole (Protonix Tab) 40 mg DAILY@06 PO Last administered on 01/06/17 05 :58; Admin Dose 40 MG; Start 12/18/16 at 06:00 Acetaminophen (Tylenol Tab) 500 mg Q4H PRN PO PAIN AND OR ELEVATED TEMP Last administered on 01/03/17 22:10; Admin Dose 500 MG; Start 12/17/16 at 22:30 Albuterol (Ventolin Hfa) 2 puff Q4H PRN INH WHEEZING AND SOB; Start 12/17/16 at 22:30 Folic Acid (Folic Acid) 1 mg DAILY PO Last administered on 01/06/17 09:08; Admin Dose 1 MG; Start 12/18/16 at 09:00 Hydroxyzine Pamoate (Vistaril) 25 mg QHS PRN PO ITCHING Last administered on 00:15; Admin Dose 25 MG; Start 12/17/16 at 22:30 Magnesium Chloride (Mag 64) 64 mg BID PO Last administered on 01/06/17 09:08; Admin Dose 64 MG; Start 12/17/16 at 23:30 Famotidine (Pepcid) 20 mg Q24H PO Last administered on 01/05/17 21:32; Admin Dose 20 MG; Start 12/17/16 at 22:30 Mupirocin (Bactroban) 1 applic BID TOP Last administered on 01/06/17 09:09; Admin Dose 1 APPLIC; Start 12/19/16 at 21:00 Simethicone (Mylicon) 80 mg BID PRN PO DISTENSION/GAS/BLOATING Last administered on 01/01/17 08:44; Admin Dose 80 MG; Start 12/22/16 at 14:00 Metoprolol Tartrate (Lopressor) 5 mg Q4H PRN IV HR>110 Hold SBP<100; Start at 18:00 Midodrine (Proamatine) 5 mg Q8 PRN PO SBP <100 Last administered on 01/04/17 05:21; Admin Dose 5 MG; Start 12/30/16 at 22:00 Atenolol 12.5 mg 12.5 mg BID NGT Last administered on 12/31/16 20:12; Admin Dose 12.5 MG; Start 12/30/16 at 21:00 Vancomycin HCl/ Sodium Chloride (Vancocin/NS) 150 ml @ 75 mls/hr Q24H IVPB Last administered on 01/06/17 02:46; Admin Dose 75 MLS/HR; Start 01/01/17 at 02 :00 ROHAN VELÁZQUEZ MD Jan 06, 2017 18:12
[2017-01-06] MEDS: FAMOTIDINE 20 MG TAB PO SCH (21:23)
[2017-01-07] VITALS (13 sets, daily range): BP systolic 81–108; BP diastolic 50–63; PULSE 87–105; RESP 17–22
[2017-01-07] MEDS: VANCOMYCIN 750 MG in SOD CHLORIDE 0.9% 150 ML IVPB SCH (02:26)
[2017-01-07] MEDS: ATENOLOL 25 MG TAB NGT SCH ×3 (02:27→21:00)
[2017-01-07] MEDS: PANTOPRAZOLE (EC) 40 MG TAB PO SCH (06:36)
[2017-01-07] MEDS: MIDODRINE 2.5 MG TAB PO PRN (07:41)
[2017-01-07 08:16] LABS: ADD SCAN DIFF NO
[2017-01-07 08:24] LABS: BASOPHIL # 0.1 10^3/ul (0.0-0.1); BASOPHILS % 0.8 % (0.0-2.0); EOSINOPHILS # 0.8 10^3/ul (0.0-0.5); EOSINOPHILS % 10.5 % (0.0-7.0); HEMATOCRIT 30.2 % (37.0-47.0); HEMOGLOBIN 10.2 g/dl (12.0-16.0); LYMPHOCYTES # 0.7 10^3/ul (0.8-2.9); LYMPHOCYTES % 9.1 % (15.0-51.0); MEAN CORPUSCULAR HEMOGLOBIN 31.1 pg (29.0-33.0); MEAN CORPUSCULAR HGB CONC 33.8 g/dl (32.0-37.0); MEAN CORPUSCULAR VOLUME 92.1 fl (82.0-101.0); MEAN PLATELET VOLUME 9.5 fl (7.4-10.4); MONOCYTE # 0.4 10^3/ul (0.3-0.9); NEUTROPHIL # 5.6 10^3/ul (1.6-7.5); NEUTROPHILS % 73.3 % (39.0-77.0); PLATELET COUNT 522 10^3/UL (140-415); RED BLOOD COUNT 3.28 10^6/ul (4.20-5.40); RED CELL DISTRIBUTION WIDTH 12.4 % (11.5-14.5); WHITE BLOOD COUNT 7.6 10^3/ul (4.8-10.8)
[2017-01-07 08:42] LABS: CREATININE 1.31 mg/dl (0.44-1.00)
[2017-01-07 08:44] LABS: CALCIUM 10.4 mg/dl (8.4-10.2); CREATININE 1.24 mg/dl (0.44-1.00); POTASSIUM 4.5 mmol/L (3.5-5.1)
[2017-01-07] MEDS: MAGNESIUM CHLORIDE (SR) 64 MG TAB PO SCH ×2 (09:36→21:50)
[2017-01-07] MEDS: FOLIC ACID 1 MG TAB PO SCH (09:36)
[2017-01-07] MEDS: MUPIROCIN 2% 22 GM OINT TOP SCH ×2 (09:37→21:53)
--- NOTE | 2017-01-07 15:44 | CONS ---
Date/Time of Note Date/Time of Note DATE: 01/07/17 TIME: 15:42 Assessment/Plan Assessment/Plan Chief Complaint/Hosp Course IMPRESSION: 1. Tachyarrhythmia at this time, most consistent with sinus tachycardia.- overall improved intially after IVF/midodrine BP support/digoxin/NL TSH/FT4. NL EF by echo. Having some mild recurrent tachycardia 2. Hypotension, borderline and labile.-on midodrine 3. Abnormal electrocardiogram with nonspecific ST-T abnormalities, assess for acute coronary syndrome.NL EF by echo this admit/negative trop 4. History of Hirschsprung disease. 5. Possible anxiety. 6. Acidosis. 7. Renal failure. 8. Status post ileostomy. 9.Bacteremia-by blood cultures Recc: -Tele -continue midodrine BP support as necessary with possible need to increase dose -BB as tolerated only -Continue abx's and f/u cx data Problems: Consultation Date/Type/Reason Admit Date/Time Dec 17, 2016 at 08:55 Initial Consult Date 12/26/2016 Type of Consultation: cardiology Reason for Consultation tachycardia Referring Provider: CARLOS RODRIGUEZ MD Exam/Review of Systems Vital Signs Vitals Vital Signs Date Time Temp Pulse Resp B/P Pulse Ox O2 Delivery O2 Flow Rate FiO2 01/07/17 12:43 99 01/07/17 11:41 98.1 18 81/51 99 Intake and Output 01/06/17 01/06/17 01/07/17 15:00 23:00 07:00 Intake Total 500 ml 800 ml Output Total 300 ml 600 ml 750 ml Balance -300 ml -100 ml 50 ml Exam Review of Systems: CONSTITUTIONAL: No fevers, chills. PULMONARY: No sob CARDIOVASCULAR: No chest pain/palpitations GASTROINTESTINAL: No nausea/vomiting. GENITOURINARY: No hematuria/dysuria. MUSCULOSKELETAL: No myagias/arthalgias. PSYCHIATRIC: The patient denies depression. NEUROLOGIC: No weakness Constitutional: alert, oriented Psych: anxiety Head: normocephalic ENMT: mucosa pink and moist Neck: jvd (8 cm water), supple Respiratory: clear to auscultation Cardiovascular: regular rate and rhythm Gastrointestinal: non-tender, other (ostomy bag), soft Musculoskeletal: muscle tone (normal) Extremities: edema (none) 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: other (No focal deficits) Results Result Diagram: 6/27/17 0700 01/07/17 0749 Results 24 hrs Laboratory Tests Test 01/07/17 07:00 01/07/17 07:49 White Blood Count 7.6 Red Blood Count 3.28 L Hemoglobin 10.2 L Hematocrit 30.2 L Mean Corpuscular Volume 92.1 Mean Corpuscular Hemoglobin 31.1 Mean Corpuscular Hemoglobin Concent 33.8 Red Cell Distribution Width 12.4 Platelet Count 522 #H Mean Platelet Volume 9.5 Neutrophils % 73.3 Lymphocytes % 9.1 L Monocytes % 5.0 Eosinophils % 10.5 H Basophils % 0.8 Nucleated Red Blood Cells % 0.0 Neutrophils # 5.6 Lymphocytes # 0.7 L Monocytes # 0.4 Eosinophils # 0.8 H Basophils # 0.1 Nucleated Red Blood Cells # 0.0 Blood Urea Nitrogen 39 H 41 H Creatinine 1.31 H 1.24 H Sodium Level 138 Potassium Level 4.5 Chloride Level 105 Carbon Dioxide Level 17 L Anion Gap 21 H Glucose Level 108 Calcium Level 10.4 H Medications Medications Current Medications Ondansetron HCl (Zofran Inj) 4 mg Q6H PRN IV NAUSEA AND/OR VOMITING Last administered on 12/30/16 23:14; Admin Dose 4 MG; Start 12/17/16 at 13:00 Morphine Sulfate (morphine) 1 mg Q4H PRN IV PAIN LEVEL 7-10; Start 12/17/16 at 13:00 Pantoprazole (Protonix Tab) 40 mg DAILY@06 PO Last administered on 01/07/17 06 :36; Admin Dose 40 MG; Start 12/18/16 at 06:00 Acetaminophen (Tylenol Tab) 500 mg Q4H PRN PO PAIN AND OR ELEVATED TEMP Last administered on 01/03/17 22:10; Admin Dose 500 MG; Start 12/17/16 at 22:30 Albuterol (Ventolin Hfa) 2 puff Q4H PRN INH WHEEZING AND SOB; Start 12/17/16 at 22:30 Folic Acid (Folic Acid) 1 mg DAILY PO Last administered on 01/07/17 09:36; Admin Dose 1 MG; Start 12/18/16 at 09:00 Hydroxyzine Pamoate (Vistaril) 25 mg QHS PRN PO ITCHING Last administered on 23:25; Admin Dose 25 MG; Start 12/17/16 at 22:30 Magnesium Chloride (Mag 64) 64 mg BID PO Last administered on 01/07/17 09:36; Admin Dose 64 MG; Start 12/17/16 at 23:30 Famotidine (Pepcid) 20 mg Q24H PO Last administered on 01/06/17 21:23; Admin Dose 20 MG; Start 12/17/16 at 22:30 Mupirocin (Bactroban) 1 applic BID TOP Last administered on 01/07/17 09:37; Admin Dose 1 APPLIC; Start 12/19/16 at 21:00 Simethicone (Mylicon) 80 mg BID PRN PO DISTENSION/GAS/BLOATING Last administered on 01/01/17 08:44; Admin Dose 80 MG; Start 12/22/16 at 14:00 Metoprolol Tartrate (Lopressor) 5 mg Q4H PRN IV HR>110 Hold SBP<100; Start at 18:00 Midodrine (Proamatine) 5 mg Q8 PRN PO SBP <100 Last administered on 01/07/17 07:41; Admin Dose 5 MG; Start 12/30/16 at 22:00 Atenolol 12.5 mg 12.5 mg BID NGT Last administered on 01/07/17 09:36; Admin Dose 12.5 MG; Start 12/30/16 at 21:00 Vancomycin HCl/ Sodium Chloride (Vancocin/NS) 150 ml @ 75 mls/hr Q24H IVPB Last administered on 01/07/17 02:26; Admin Dose 75 MLS/HR; Start 01/01/17 at 02 :00 ANGEL JARAMILLO Jan 07, 2017 15:44
--- NOTE | 2017-01-07 15:58 | CONS ---
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-) - low-level nonspecific increase in tracer uptake within the mediastinum on WBC tagged scan 12/31/2016 recommendations: - Dr. Raymond's notes reviewed; we recommend IV vancomycin (12/27/2016-) x2 weeks from the first negative blood culture result, i.e. 01/02/2017-01/16/2017 - check CBC and BMP at least once weekly while Pt's on antibiotic Management d/w patient and Dr. Tomlinson Problems: Consultation Date/Type/Reason Admit Date/Time Dec 17, 2016 at 08:55 Type of Consultation: Infectious Disease Referring Provider: CARLOS RODRIGUEZ MD 24 HR Interval Summary Free Text/Dictation Pt relieved that portacath will not be removed. Denies pain, SOB, n/v, dysuria. Exam/Review of Systems Vital Signs Vitals Vital Signs Date Time Temp Pulse Resp B/P Pulse Ox O2 Delivery O2 Flow Rate FiO2 01/07/17 12:43 99 01/07/17 11:41 98.1 18 81/51 99 Intake and Output 01/06/17 01/06/17 01/07/17 15:00 23:00 07:00 Intake Total 500 ml 800 ml Output Total 300 ml 600 ml 750 ml Balance -300 ml -100 ml 50 ml Exam Constitutional: alert, oriented, thin Head: atraumatic, normocephalic Eyes: nl conjunctiva, nl lids Neck: supple Respiratory: diminished breath sounds Cardiovascular: nl pulses, regular rate and rhythm Gastrointestinal: non-tender, other (colostomy in place), soft Musculoskeletal: nl extremities to inspection Extremities: No edema Skin: warm, dry, other (R chest port site is clean) Results Result Diagram: 01/07/17 0700 01/07/17 0749 Results 24 hrs Laboratory Tests Test 01/07/17 07:00 01/07/17 07:49 White Blood Count 7.6 Red Blood Count 3.28 L Hemoglobin 10.2 L Hematocrit 30.2 L Mean Corpuscular Volume 92.1 Mean Corpuscular Hemoglobin 31.1 Mean Corpuscular Hemoglobin Concent 33.8 Red Cell Distribution Width 12.4 Platelet Count 522 #H Mean Platelet Volume 9.5 Neutrophils % 73.3 Lymphocytes % 9.1 L Monocytes % 5.0 Eosinophils % 10.5 H Basophils % 0.8 Nucleated Red Blood Cells % 0.0 Neutrophils # 5.6 Lymphocytes # 0.7 L Monocytes # 0.4 Eosinophils # 0.8 H Basophils # 0.1 Nucleated Red Blood Cells # 0.0 Blood Urea Nitrogen 39 H 41 H Creatinine 1.31 H 1.24 H Sodium Level 138 Potassium Level 4.5 Chloride Level 105 Carbon Dioxide Level 17 L Anion Gap 21 H Glucose Level 108 Calcium Level 10.4 H Medications Medications Current Medications Ondansetron HCl (Zofran Inj) 4 mg Q6H PRN IV NAUSEA AND/OR VOMITING Last administered on 12/30/16 23:14; Admin Dose 4 MG; Start 12/17/16 at 13:00 Morphine Sulfate (morphine) 1 mg Q4H PRN IV PAIN LEVEL 7-10; Start 12/17/16 at 13:00 Pantoprazole (Protonix Tab) 40 mg DAILY@06 PO Last administered on 01/07/17 06 :36; Admin Dose 40 MG; Start 12/18/16 at 06:00 Acetaminophen (Tylenol Tab) 500 mg Q4H PRN PO PAIN AND OR ELEVATED TEMP Last administered on 01/03/17 22:10; Admin Dose 500 MG; Start 12/17/16 at 22:30 Albuterol (Ventolin Hfa) 2 puff Q4H PRN INH WHEEZING AND SOB; Start 12/17/16 at 22:30 Folic Acid (Folic Acid) 1 mg DAILY PO Last administered on 01/07/17 09:36; Admin Dose 1 MG; Start 12/18/16 at 09:00 Hydroxyzine Pamoate (Vistaril) 25 mg QHS PRN PO ITCHING Last administered on 23:25; Admin Dose 25 MG; Start 12/17/16 at 22:30 Magnesium Chloride (Mag 64) 64 mg BID PO Last administered on 01/07/17 09:36; Admin Dose 64 MG; Start 12/17/16 at 23:30 Famotidine (Pepcid) 20 mg Q24H PO Last administered on 01/06/17 21:23; Admin Dose 20 MG; Start 12/17/16 at 22:30 Mupirocin (Bactroban) 1 applic BID TOP Last administered on 01/07/17 09:37; Admin Dose 1 APPLIC; Start 12/19/16 at 21:00 Simethicone (Mylicon) 80 mg BID PRN PO DISTENSION/GAS/BLOATING Last administered on 01/01/17 08:44; Admin Dose 80 MG; Start 12/22/16 at 14:00 Metoprolol Tartrate (Lopressor) 5 mg Q4H PRN IV HR>110 Hold SBP<100; Start at 18:00 Midodrine (Proamatine) 5 mg Q8 PRN PO SBP <100 Last administered on 01/07/17 07:41; Admin Dose 5 MG; Start 12/30/16 at 22:00 Atenolol 12.5 mg 12.5 mg BID NGT Last administered on 01/07/17 09:36; Admin Dose 12.5 MG; Start 12/30/16 at 21:00 Vancomycin HCl/ Sodium Chloride (Vancocin/NS) 150 ml @ 75 mls/hr Q24H IVPB Last administered on 01/07/17 02:26; Admin Dose 75 MLS/HR; Start 01/01/17 at 02 :00 RINKU BAILON NP Jan 07, 2017 15:58
--- NOTE | 2017-01-07 17:48 | CONS ---
Date/Time of Note Date/Time of Note DATE: 01/07/17 TIME: 17:47 Assessment/Plan Assessment/Plan Additional Assessment/Plan 1. Acute kidney injury secondary to severe prerenal azotemia secondary to nausea, vomiting and decreased p.o. intake. 2. Hyponatremia with a sodium of 128 secondary to hypovolemic hyponatremia. 4. Hyperkalemia secondary to worsening acute kidney injury and renal failure.- inow improved 5. Metabolic acidosis with bicarbonate of 16 secondary to increased ileostomy output.- now becomes severe with PH low on ABG - s/p HCO3 drip PLAN: HCo3 17 CT chest showed atelecatasis, No acute findigs Cr 1.2 will follow up Consultation Date/Type/Reason Admit Date/Time Dec 17, 2016 at 08:55 Initial Consult Date Dec Type of Consultation: NEPHROLOG Y Referring Provider: CARLOS RODRIGUEZ MD 24 HR Interval Summary Free Text/Dictation Cr 1.2, HCo3 17, Ca slight high Exam/Review of Systems Vital Signs Vitals Vital Signs Date Time Temp Pulse Resp B/P Pulse Ox O2 Delivery O2 Flow Rate FiO2 01/07/17 16:36 88 01/07/17 16:36 98.0 19 84/52 98 Intake and Output 01/06/17 01/06/17 01/07/17 15:00 23:00 07:00 Intake Total 500 ml 800 ml Output Total 300 ml 600 ml 750 ml Balance -300 ml -100 ml 50 ml Results Result Diagram: 01/07/17 0700 01/07/17 0749 Results 24 hrs Laboratory Tests Test 01/07/17 07:00 01/07/17 07:49 White Blood Count 7.6 Red Blood Count 3.28 L Hemoglobin 10.2 L Hematocrit 30.2 L Mean Corpuscular Volume 92.1 Mean Corpuscular Hemoglobin 31.1 Mean Corpuscular Hemoglobin Concent 33.8 Red Cell Distribution Width 12.4 Platelet Count 522 #H Mean Platelet Volume 9.5 Neutrophils % 73.3 Lymphocytes % 9.1 L Monocytes % 5.0 Eosinophils % 10.5 H Basophils % 0.8 Nucleated Red Blood Cells % 0.0 Neutrophils # 5.6 Lymphocytes # 0.7 L Monocytes # 0.4 Eosinophils # 0.8 H Basophils # 0.1 Nucleated Red Blood Cells # 0.0 Blood Urea Nitrogen 39 H 41 H Creatinine 1.31 H 1.24 H Sodium Level 138 Potassium Level 4.5 Chloride Level 105 Carbon Dioxide Level 17 L Anion Gap 21 H Glucose Level 108 Calcium Level 10.4 H Medications Medications Current Medications Ondansetron HCl (Zofran Inj) 4 mg Q6H PRN IV NAUSEA AND/OR VOMITING Last administered on 12/30/16 23:14; Admin Dose 4 MG; Start 12/17/16 at 13:00 Morphine Sulfate (morphine) 1 mg Q4H PRN IV PAIN LEVEL 7-10; Start 12/17/16 at 13:00 Pantoprazole (Protonix Tab) 40 mg DAILY@06 PO Last administered on 01/07/17 06 :36; Admin Dose 40 MG; Start 12/18/16 at 06:00 Acetaminophen (Tylenol Tab) 500 mg Q4H PRN PO PAIN AND OR ELEVATED TEMP Last administered on 01/03/17 22:10; Admin Dose 500 MG; Start 12/17/16 at 22:30 Albuterol (Ventolin Hfa) 2 puff Q4H PRN INH WHEEZING AND SOB; Start 12/17/16 at 22:30 Folic Acid (Folic Acid) 1 mg DAILY PO Last administered on 01/07/17 09:36; Admin Dose 1 MG; Start 12/18/16 at 09:00 Hydroxyzine Pamoate (Vistaril) 25 mg QHS PRN PO ITCHING Last administered on 23:25; Admin Dose 25 MG; Start 12/17/16 at 22:30 Magnesium Chloride (Mag 64) 64 mg BID PO Last administered on 01/07/17 09:36; Admin Dose 64 MG; Start 12/17/16 at 23:30 Famotidine (Pepcid) 20 mg Q24H PO Last administered on 01/06/17 21:23; Admin Dose 20 MG; Start 12/17/16 at 22:30 Mupirocin (Bactroban) 1 applic BID TOP Last administered on 01/07/17 09:37; Admin Dose 1 APPLIC; Start 12/19/16 at 21:00 Simethicone (Mylicon) 80 mg BID PRN PO DISTENSION/GAS/BLOATING Last administered on 01/01/17 08:44; Admin Dose 80 MG; Start 12/22/16 at 14:00 Metoprolol Tartrate (Lopressor) 5 mg Q4H PRN IV HR>110 Hold SBP<100; Start at 18:00 Midodrine (Proamatine) 5 mg Q8 PRN PO SBP <100 Last administered on 01/07/17 07:41; Admin Dose 5 MG; Start 12/30/16 at 22:00 Atenolol 12.5 mg 12.5 mg BID NGT Last administered on 01/07/17 09:36; Admin Dose 12.5 MG; Start 12/30/16 at 21:00 Vancomycin HCl/ Sodium Chloride (Vancocin/NS) 150 ml @ 75 mls/hr Q24H IVPB Last administered on 01/07/17 02:26; Admin Dose 75 MLS/HR; Start 01/01/17 at 02 :00 ROHAN VELÁZQUEZ MD Jan 07, 2017 17:48
--- NOTE | 2017-01-07 18:48 | PN ---
Date/Time of Note Date/Time of Note DATE: 01/07/17 TIME: 18:46 Assessment/Plan VTE Prophylaxis VTE Prophylaxis Intervention: SCD's Lines/Catheters IV [facility] PORTACATH Urinary Cath still in place: No Assessment/Plan Chief Complaint/Hosp Course Patient denies any nausea vomiting remains afebrile. ASSESSMENT AND PLAN: - Sepsis with staph bacteremia, continue vancomycin until January 16, Dr. Ba is following an infection disease consultation. Dr. Raymond is following in vascular surgery consultation. - Metabolic acidosis, continue IV fluids with bicarb, Dr. Spain is following in nephrology consultation. - Intractable nausea and vomiting, resolved. Dr. Mendez is following in gastroenterology consultation. - Acute kidney injury. Dr. Spain is following in nephrology consultation. Continue IV fluids monitor electrolytes. - Hirschsprung disease. - Ileostomy. Further recommendations based on clinical course. Plan of care discussed with Dr. Paez. Problems: Exam/Review of Systems Vital Signs Vitals Vital Signs Date Time Temp Pulse Resp B/P Pulse Ox O2 Delivery O2 Flow Rate FiO2 01/07/17 16:36 88 01/07/17 16:36 98.0 19 84/52 98 Intake and Output 01/06/17 01/06/17 01/07/17 15:00 23:00 07:00 Intake Total 500 ml 800 ml Output Total 300 ml 600 ml 750 ml Balance -300 ml -100 ml 50 ml Exam Constitutional: alert, oriented Head: normocephalic Neck: supple Respiratory: normal air movement Cardiovascular: nl pulses Gastrointestinal: non-tender, other (Ileostomy), soft Musculoskeletal: nl gait and stance Extremities: normal pulses 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: EPIC SPECIALIST II-XII intact Additional Comments Right chest Port-A-Cath Results Result Diagram: 01/07/17 0700 01/07/17 0749 Results 24 hrs Laboratory Tests Test 01/07/17 07:00 01/07/17 07:49 White Blood Count 7.6 Red Blood Count 3.28 L Hemoglobin 10.2 L Hematocrit 30.2 L Mean Corpuscular Volume 92.1 Mean Corpuscular Hemoglobin 31.1 Mean Corpuscular Hemoglobin Concent 33.8 Red Cell Distribution Width 12.4 Platelet Count 522 #H Mean Platelet Volume 9.5 Neutrophils % 73.3 Lymphocytes % 9.1 L Monocytes % 5.0 Eosinophils % 10.5 H Basophils % 0.8 Nucleated Red Blood Cells % 0.0 Neutrophils # 5.6 Lymphocytes # 0.7 L Monocytes # 0.4 Eosinophils # 0.8 H Basophils # 0.1 Nucleated Red Blood Cells # 0.0 Blood Urea Nitrogen 39 H 41 H Creatinine 1.31 H 1.24 H Sodium Level 138 Potassium Level 4.5 Chloride Level 105 Carbon Dioxide Level 17 L Anion Gap 21 H Glucose Level 108 Calcium Level 10.4 H Medications Medications Current Medications Ondansetron HCl (Zofran Inj) 4 mg Q6H PRN IV NAUSEA AND/OR VOMITING Last administered on 12/30/16 23:14; Admin Dose 4 MG; Start 12/17/16 at 13:00 Morphine Sulfate (morphine) 1 mg Q4H PRN IV PAIN LEVEL 7-10; Start 12/17/16 at 13:00 Pantoprazole (Protonix Tab) 40 mg DAILY@06 PO Last administered on 01/07/17 06 :36; Admin Dose 40 MG; Start 12/18/16 at 06:00 Acetaminophen (Tylenol Tab) 500 mg Q4H PRN PO PAIN AND OR ELEVATED TEMP Last administered on 01/03/17 22:10; Admin Dose 500 MG; Start 12/17/16 at 22:30 Albuterol (Ventolin Hfa) 2 puff Q4H PRN INH WHEEZING AND SOB; Start 12/17/16 at 22:30 Folic Acid (Folic Acid) 1 mg DAILY PO Last administered on 01/07/17 09:36; Admin Dose 1 MG; Start 12/18/16 at 09:00 Hydroxyzine Pamoate (Vistaril) 25 mg QHS PRN PO ITCHING Last administered on 23:25; Admin Dose 25 MG; Start 12/17/16 at 22:30 Magnesium Chloride (Mag 64) 64 mg BID PO Last administered on 01/07/17 09:36; Admin Dose 64 MG; Start 12/17/16 at 23:30 Famotidine (Pepcid) 20 mg Q24H PO Last administered on 01/06/17 21:23; Admin Dose 20 MG; Start 12/17/16 at 22:30 Mupirocin (Bactroban) 1 applic BID TOP Last administered on 01/07/17 09:37; Admin Dose 1 APPLIC; Start 12/19/16 at 21:00 Simethicone (Mylicon) 80 mg BID PRN PO DISTENSION/GAS/BLOATING Last administered on 01/01/17 08:44; Admin Dose 80 MG; Start 12/22/16 at 14:00 Metoprolol Tartrate (Lopressor) 5 mg Q4H PRN IV HR>110 Hold SBP<100; Start at 18:00 Midodrine (Proamatine) 5 mg Q8 PRN PO SBP <100 Last administered on 01/07/17 07:41; Admin Dose 5 MG; Start 12/30/16 at 22:00 Atenolol 12.5 mg 12.5 mg BID NGT Last administered on 01/07/17 09:36; Admin Dose 12.5 MG; Start 12/30/16 at 21:00 Vancomycin HCl/ Sodium Chloride (Vancocin/NS) 150 ml @ 75 mls/hr Q24H IVPB Last administered on 01/07/17 02:26; Admin Dose 75 MLS/HR; Start 01/01/17 at 02 :00 ROMI ESPINO Jan 07, 2017 18:48
[2017-01-07] MEDS: hydrOXYzine PAMOATE 25 MG CAP PO PRN (21:50)
[2017-01-07] MEDS: FAMOTIDINE 20 MG TAB PO SCH (21:50)
[2017-01-08] VITALS (11 sets, daily range): BP systolic 82–111; BP diastolic 53–72; PULSE 87–112; RESP 18–20
[2017-01-08] MEDS: VANCOMYCIN 750 MG in SOD CHLORIDE 0.9% 150 ML IVPB SCH (02:03)
[2017-01-08] MEDS: PANTOPRAZOLE (EC) 40 MG TAB PO SCH (06:21)
[2017-01-08 07:53] LABS: ADD SCAN DIFF NO
[2017-01-08 07:59] LABS: BASOPHIL # 0.1 10^3/ul (0.0-0.1); BASOPHILS % 0.6 % (0.0-2.0); EOSINOPHILS # 0.9 10^3/ul (0.0-0.5); EOSINOPHILS % 7.9 % (0.0-7.0); HEMATOCRIT 31.8 % (37.0-47.0); LYMPHOCYTES # 0.7 10^3/ul (0.8-2.9); LYMPHOCYTES % 5.9 % (15.0-51.0); MEAN CORPUSCULAR HEMOGLOBIN 31.4 pg (29.0-33.0); MEAN CORPUSCULAR HGB CONC 34.6 g/dl (32.0-37.0); MEAN CORPUSCULAR VOLUME 90.9 fl (82.0-101.0); MEAN PLATELET VOLUME 9.5 fl (7.4-10.4); MONOCYTE # 0.6 10^3/ul (0.3-0.9); MONOCYTES % 5.4 % (0.0-11.0); NEUTROPHILS % 78.7 % (39.0-77.0); PLATELET COUNT 620 10^3/UL (140-415); RED CELL DISTRIBUTION WIDTH 12.5 % (11.5-14.5); WHITE BLOOD COUNT 11.5 10^3/ul (4.8-10.8)
[2017-01-08 08:20] LABS: CALCIUM 10.8 mg/dl (8.4-10.2); CREATININE 1.78 mg/dl (0.44-1.00); POTASSIUM 5.6 mmol/L (3.5-5.1)
[2017-01-08] MEDS: ATENOLOL 25 MG TAB NGT SCH ×2 (08:32→20:30)
[2017-01-08] MEDS: MUPIROCIN 2% 22 GM OINT TOP SCH ×2 (08:33→21:20)
[2017-01-08] MEDS: FOLIC ACID 1 MG TAB PO SCH (08:33)
[2017-01-08] MEDS ORDERED: MIDODRINE 5 MG TAB PO PRN (09:00)
[2017-01-08] MEDS: MAGNESIUM CHLORIDE (SR) 64 MG TAB PO SCH ×3 (09:00→21:17)
--- NOTE | 2017-01-08 17:11 | CONS ---
Date/Time of Note Date/Time of Note DATE: 01/08/17 TIME: 17:08 Assessment/Plan Assessment/Plan Additional Assessment/Plan 1. Acute kidney injury secondary to severe prerenal azotemia secondary to nausea, vomiting and decreased p.o. intake. 2. Hyponatremia with a sodium of 128 secondary to hypovolemic hyponatremia. 4. Hyperkalemia secondary to worsening acute kidney injury and renal failure.- inow improved 5. Metabolic acidosis with bicarbonate of 16 secondary to increased ileostomy output.- now becomes severe with PH low on ABG - s/p HCO3 drip PLAN: Cr 1.7, K 5.6, HCo3 18 kayexalate 30gram PO x 1 dose now, start bicitra 30ml PO TID will follow up Consultation Date/Type/Reason Admit Date/Time Dec 17, 2016 at 08:55 Initial Consult Date Dec Type of Consultation: NEPHROLOG Y Referring Provider: CARLOS RODRIGUEZ MD Exam/Review of Systems Vital Signs Vitals Vital Signs Date Time Temp Pulse Resp B/P Pulse Ox O2 Delivery O2 Flow Rate FiO2 01/08/17 16:00 106 01/08/17 15:55 97.5 20 108/59 98 Intake and Output 01/07/17 01/07/17 01/08/17 15:00 23:00 07:00 Intake Total 700 ml Output Total 600 ml Balance 100 ml Exam Constitutional: alert, oriented Head: normocephalic Neck: supple Respiratory: normal air movement Cardiovascular: nl pulses Gastrointestinal: non-tender, other (Ileostomy), soft Musculoskeletal: nl gait and stance Extremities: normal pulses 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 Results Result Diagram: 01/08/17 0647 01/08/17 0647 Results 24 hrs Laboratory Tests Test 01/08/17 06:47 White Blood Count 11.5 #H Red Blood Count 3.50 L Hemoglobin 11.0 L Hematocrit 31.8 L Mean Corpuscular Volume 90.9 Mean Corpuscular Hemoglobin 31.4 Mean Corpuscular Hemoglobin Concent 34.6 Red Cell Distribution Width 12.5 Platelet Count 620 H Mean Platelet Volume 9.5 Neutrophils % 78.7 H Lymphocytes % 5.9 L Monocytes % 5.4 Eosinophils % 7.9 H Basophils % 0.6 Nucleated Red Blood Cells % 0.0 Neutrophils # 9.0 H Lymphocytes # 0.7 L Monocytes # 0.6 Eosinophils # 0.9 H Basophils # 0.1 Nucleated Red Blood Cells # 0.0 Sodium Level 135 Potassium Level 5.6 H Chloride Level 102 Carbon Dioxide Level 18 L Anion Gap 21 H Blood Urea Nitrogen 56 H Creatinine 1.78 H Glucose Level 96 Calcium Level 10.8 H Medications Medications Current Medications Ondansetron HCl (Zofran Inj) 4 mg Q6H PRN IV NAUSEA AND/OR VOMITING Last administered on 12/30/16 23:14; Admin Dose 4 MG; Start 12/17/16 at 13:00 Morphine Sulfate (morphine) 1 mg Q4H PRN IV PAIN LEVEL 7-10; Start 12/17/16 at 13:00 Pantoprazole (Protonix Tab) 40 mg DAILY@06 PO Last administered on 01/08/17 06 :21; Admin Dose 40 MG; Start 12/18/16 at 06:00 Acetaminophen (Tylenol Tab) 500 mg Q4H PRN PO PAIN AND OR ELEVATED TEMP Last administered on 01/03/17 22:10; Admin Dose 500 MG; Start 12/17/16 at 22:30 Albuterol (Ventolin Hfa) 2 puff Q4H PRN INH WHEEZING AND SOB; Start 12/17/16 at 22:30 Folic Acid (Folic Acid) 1 mg DAILY PO Last administered on 01/08/17 08:33; Admin Dose 1 MG; Start 12/18/16 at 09:00 Hydroxyzine Pamoate (Vistaril) 25 mg QHS PRN PO ITCHING Last administered on 21:50; Admin Dose 25 MG; Start 12/17/16 at 22:30 Magnesium Chloride (Mag 64) 64 mg BID PO Last administered on 01/08/17 12:21; Admin Dose 64 MG; Start 12/17/16 at 23:30 Famotidine (Pepcid) 20 mg Q24H PO Last administered on 01/07/17 21:50; Admin Dose 20 MG; Start 12/17/16 at 22:30 Mupirocin (Bactroban) 1 applic BID TOP Last administered on 01/08/17 08:33; Admin Dose 1 APPLIC; Start 12/19/16 at 21:00 Simethicone (Mylicon) 80 mg BID PRN PO DISTENSION/GAS/BLOATING Last administered on 01/01/17 08:44; Admin Dose 80 MG; Start 12/22/16 at 14:00 Metoprolol Tartrate (Lopressor) 5 mg Q4H PRN IV HR>110 Hold SBP<100; Start at 18:00 Midodrine (Proamatine) 5 mg Q8 PRN PO SBP <100 Last administered on 01/07/17 07:41; Admin Dose 5 MG; Start 12/30/16 at 22:00 Atenolol (Tenormin) 12.5 mg BID NGT Last administered on 01/07/17 09:36; Admin Dose 12.5 MG; Start 12/30/16 at 21:00 Miscellaneous Information (*Rx Drug Level Order Reminder*) VANCO RANDOM ON 12/13... ONCE ONCE XX ; Start 01/09/17 at 05:00; Stop 01/09/17 at 05:01 Midodrine (Proamatine) 5 mg Q8H PRN PO FOR SBP BELOW 100 Last administered on 12:23; Admin Dose 5 MG; Start 01/08/17 at 09:00 ROHAN VELÁZQUEZ MD Jan 08, 2017 17:11
--- NOTE | 2017-01-08 17:22 | CONS ---
Date/Time of Note Date/Time of Note DATE: 01/08/17 TIME: 17:21 Assessment/Plan Assessment/Plan Chief Complaint/Hosp Course IMPRESSION: 1. Tachyarrhythmia at this time, most consistent with sinus tachycardia.- overall improved intially after IVF/midodrine BP support/digoxin/NL TSH/FT4. NL EF by echo. Having some mild recurrent tachycardia when not able to receive BB dose 2. Hypotension, borderline and labile.-on midodrine 3. Abnormal electrocardiogram with nonspecific ST-T abnormalities, assess for acute coronary syndrome.NL EF by echo this admit/negative trop 4. History of Hirschsprung disease. 5. Possible anxiety. 6. Acidosis. 7. Renal failure. 8. Status post ileostomy. 9.Bacteremia-by blood cultures Recc: -Tele -continue midodrine BP support as necessary with possible need to increase dose -BB as tolerated only -Continue abx's and f/u cx data Problems: Consultation Date/Type/Reason Admit Date/Time Dec 17, 2016 at 08:55 Initial Consult Date 12/26/2016 Type of Consultation: cardiology Reason for Consultation tachycardia Referring Provider: CARLOS RODRIGUEZ MD Exam/Review of Systems Vital Signs Vitals Vital Signs Date Time Temp Pulse Resp B/P Pulse Ox O2 Delivery O2 Flow Rate FiO2 01/08/17 16:00 106 01/08/17 15:55 97.5 20 108/59 98 Intake and Output 01/07/17 01/07/17 01/08/17 15:00 23:00 07:00 Intake Total 700 ml Output Total 600 ml Balance 100 ml Exam Review of Systems: CONSTITUTIONAL: No fevers, chills. PULMONARY: No sob CARDIOVASCULAR: No chest pain/palpitations GASTROINTESTINAL: No nausea/vomiting. GENITOURINARY: No hematuria/dysuria. MUSCULOSKELETAL: No myagias/arthalgias. PSYCHIATRIC: The patient denies depression. NEUROLOGIC: No weakness Constitutional: alert, oriented Psych: no complaints Head: normocephalic Neck: jvd (8 cm water), supple Respiratory: clear to auscultation Cardiovascular: regular rate and rhythm Gastrointestinal: non-tender, other (ostomy bag), soft Musculoskeletal: muscle tone (normal) Extremities: edema (none) 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: other (No focal deficits) Results Result Diagram: 01/08/17 0647 01/08/17 0647 Results 24 hrs Laboratory Tests Test 01/08/17 06:47 White Blood Count 11.5 #H Red Blood Count 3.50 L Hemoglobin 11.0 L Hematocrit 31.8 L Mean Corpuscular Volume 90.9 Mean Corpuscular Hemoglobin 31.4 Mean Corpuscular Hemoglobin Concent 34.6 Red Cell Distribution Width 12.5 Platelet Count 620 H Mean Platelet Volume 9.5 Neutrophils % 78.7 H Lymphocytes % 5.9 L Monocytes % 5.4 Eosinophils % 7.9 H Basophils % 0.6 Nucleated Red Blood Cells % 0.0 Neutrophils # 9.0 H Lymphocytes # 0.7 L Monocytes # 0.6 Eosinophils # 0.9 H Basophils # 0.1 Nucleated Red Blood Cells # 0.0 Sodium Level 135 Potassium Level 5.6 H Chloride Level 102 Carbon Dioxide Level 18 L Anion Gap 21 H Blood Urea Nitrogen 56 H Creatinine 1.78 H Glucose Level 96 Calcium Level 10.8 H Medications Medications Current Medications Ondansetron HCl (Zofran Inj) 4 mg Q6H PRN IV NAUSEA AND/OR VOMITING Last administered on 12/30/16 23:14; Admin Dose 4 MG; Start 12/17/16 at 13:00 Morphine Sulfate (morphine) 1 mg Q4H PRN IV PAIN LEVEL 7-10; Start 12/17/16 at 13:00 Pantoprazole (Protonix Tab) 40 mg DAILY@06 PO Last administered on 01/08/17 06 :21; Admin Dose 40 MG; Start 12/18/16 at 06:00 Acetaminophen (Tylenol Tab) 500 mg Q4H PRN PO PAIN AND OR ELEVATED TEMP Last administered on 01/03/17 22:10; Admin Dose 500 MG; Start 12/17/16 at 22:30 Albuterol (Ventolin Hfa) 2 puff Q4H PRN INH WHEEZING AND SOB; Start 12/17/16 at 22:30 Folic Acid (Folic Acid) 1 mg DAILY PO Last administered on 01/08/17 08:33; Admin Dose 1 MG; Start 12/18/16 at 09:00 Hydroxyzine Pamoate (Vistaril) 25 mg QHS PRN PO ITCHING Last administered on 21:50; Admin Dose 25 MG; Start 12/17/16 at 22:30 Magnesium Chloride (Mag 64) 64 mg BID PO Last administered on 01/08/17 12:21; Admin Dose 64 MG; Start 12/17/16 at 23:30 Famotidine (Pepcid) 20 mg Q24H PO Last administered on 01/07/17 21:50; Admin Dose 20 MG; Start 12/17/16 at 22:30 Mupirocin (Bactroban) 1 applic BID TOP Last administered on 01/08/17 08:33; Admin Dose 1 APPLIC; Start 12/19/16 at 21:00 Simethicone (Mylicon) 80 mg BID PRN PO DISTENSION/GAS/BLOATING Last administered on 01/01/17 08:44; Admin Dose 80 MG; Start 12/22/16 at 14:00 Metoprolol Tartrate (Lopressor) 5 mg Q4H PRN IV HR>110 Hold SBP<100; Start at 18:00 Midodrine (Proamatine) 5 mg Q8 PRN PO SBP <100 Last administered on 01/07/17 07:41; Admin Dose 5 MG; Start 12/30/16 at 22:00 Atenolol (Tenormin) 12.5 mg BID NGT Last administered on 01/07/17 09:36; Admin Dose 12.5 MG; Start 12/30/16 at 21:00 Miscellaneous Information (*Rx Drug Level Order Reminder*) VANCO RANDOM ON 12/13... ONCE ONCE XX ; Start 01/09/17 at 05:00; Stop 01/09/17 at 05:01 Midodrine (Proamatine) 5 mg Q8H PRN PO FOR SBP BELOW 100 Last administered on 12:23; Admin Dose 5 MG; Start 01/08/17 at 09:00 Sodium Polystyrene Sulfonate (Kayexalate) 30 gm ONCE ONCE PO ; Start 01/08/17 at 17:30; Stop 01/08/17 at 17:31 Citric Acid/ Sodium Citrate (Bicitra) 30 ml TID PO ; Start 01/08/17 at 18:00 ANGEL JARAMILLO 28, 2017 17:22
[2017-01-08] MEDS ORDERED: CITRIC ACID/SODIUM CITRATE 15 ML CUP PO ONE (17:30)
[2017-01-08] MEDS ORDERED: NA POLYST SULFON 15 GM/60 ML BTL PO ONE (17:30)
--- NOTE | 2017-01-08 18:15 | PN ---
Date/Time of Note Date/Time of Note DATE: 01/08/17 TIME: 18:12 Assessment/Plan VTE Prophylaxis VTE Prophylaxis Intervention: SCD's Lines/Catheters IV [facility]ACATH Urinary Cath still in place: No Assessment/Plan Chief Complaint/Hosp Course Patient was increased creatinine and hyperkalemia today, status post Kayexalate , denies any nausea vomiting. ASSESSMENT AND PLAN: - Sepsis with staph bacteremia, repeat blood cultures negative, continue vancomycin until January 16, Dr. Ba is following an infection disease consultation. Dr. Raymond is following in vascular surgery consultation. - Metabolic acidosis, continue IV fluids with bicarb, Dr. Spain is following in nephrology consultation. - Intractable nausea and vomiting, resolved. Dr. Mendez is following in gastroenterology consultation. - Acute kidney injury. Dr. Spain is following in nephrology consultation. Continue IV fluids monitor electrolytes. - Hirschsprung disease. - Ileostomy. Further recommendations based on clinical course. Plan of care discussed with Dr. Paez. 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 Additional Comments Right chest Port-A-Cath Results Result Diagram: 01/08/17 0647 01/08/17 0647 Results 24 hrs Laboratory Tests Test 01/08/17 06:47 White Blood Count 11.5 #H Red Blood Count 3.50 L Hemoglobin 11.0 L Hematocrit 31.8 L Mean Corpuscular Volume 90.9 Mean Corpuscular Hemoglobin 31.4 Mean Corpuscular Hemoglobin Concent 34.6 Red Cell Distribution Width 12.5 Platelet Count 620 H Mean Platelet Volume 9.5 Neutrophils % 78.7 H Lymphocytes % 5.9 L Monocytes % 5.4 Eosinophils % 7.9 H Basophils % 0.6 Nucleated Red Blood Cells % 0.0 Neutrophils # 9.0 H Lymphocytes # 0.7 L Monocytes # 0.6 Eosinophils # 0.9 H Basophils # 0.1 Nucleated Red Blood Cells # 0.0 Sodium Level 135 Potassium Level 5.6 H Chloride Level 102 Carbon Dioxide Level 18 L Anion Gap 21 H Blood Urea Nitrogen 56 H Creatinine 1.78 H Glucose Level 96 Calcium Level 10.8 H Medications Medications Current Medications Ondansetron HCl (Zofran Inj) 4 mg Q6H PRN IV NAUSEA AND/OR VOMITING Last administered on 12/30/16 23:14; Admin Dose 4 MG; Start 12/17/16 at 13:00 Morphine Sulfate (morphine) 1 mg Q4H PRN IV PAIN LEVEL 7-10; Start 12/17/16 at 13:00 Pantoprazole (Protonix Tab) 40 mg DAILY@06 PO Last administered on 01/08/17 06 :21; Admin Dose 40 MG; Start 12/18/16 at 06:00 Acetaminophen (Tylenol Tab) 500 mg Q4H PRN PO PAIN AND OR ELEVATED TEMP Last administered on 01/03/17 22:10; Admin Dose 500 MG; Start 12/17/16 at 22:30 Albuterol (Ventolin Hfa) 2 puff Q4H PRN INH WHEEZING AND SOB; Start 12/17/16 at 22:30 Folic Acid (Folic Acid) 1 mg DAILY PO Last administered on 01/08/17 08:33; Admin Dose 1 MG; Start 12/18/16 at 09:00 Hydroxyzine Pamoate (Vistaril) 25 mg QHS PRN PO ITCHING Last administered on 21:50; Admin Dose 25 MG; Start 12/17/16 at 22:30 Magnesium Chloride (Mag 64) 64 mg BID PO Last administered on 01/08/17 12:21; Admin Dose 64 MG; Start 12/17/16 at 23:30 Famotidine (Pepcid) 20 mg Q24H PO Last administered on 01/07/17 21:50; Admin Dose 20 MG; Start 12/17/16 at 22:30 Mupirocin (Bactroban) 1 applic BID TOP Last administered on 01/08/17 08:33; Admin Dose 1 APPLIC; Start 12/19/16 at 21:00 Simethicone (Mylicon) 80 mg BID PRN PO DISTENSION/GAS/BLOATING Last administered on 01/01/17 08:44; Admin Dose 80 MG; Start 12/22/16 at 14:00 Metoprolol Tartrate (Lopressor) 5 mg Q4H PRN IV HR>110 Hold SBP<100; Start at 18:00 Midodrine (Proamatine) 5 mg Q8 PRN PO SBP <100 Last administered on 01/07/17 07:41; Admin Dose 5 MG; Start 12/30/16 at 22:00 Atenolol (Tenormin) 12.5 mg BID NGT Last administered on 01/07/17 09:36; Admin Dose 12.5 MG; Start 12/30/16 at 21:00 Miscellaneous Information (*Rx Drug Level Order Reminder*) VANCO RANDOM ON 12/13... ONCE ONCE XX ; Start 01/09/17 at 05:00; Stop 01/09/17 at 05:01 Midodrine (Proamatine) 5 mg Q8H PRN PO FOR SBP BELOW 100 Last administered on 12:23; Admin Dose 5 MG; Start 01/08/17 at 09:00 Citric Acid/ Sodium Citrate (Bicitra) 30 ml TID PO ; Start 01/08/17 at 18:00 ROMI ESPINO Jan 08, 2017 18:15
--- NOTE | 2017-01-08 18:27 | CONS ---
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-) - low-level nonspecific increase in tracer uptake within the mediastinum on WBC tagged scan 12/31/2016 recommendations: - Dr. Raymond's notes reviewed; we recommend IV vancomycin (12/27/2016-) x2 weeks from the first negative blood culture result, i.e. 01/02/2017-01/16/2017 - check CBC and BMP at least once weekly while Pt's on antibiotic Management d/w patient and Dr. Tomlinson Consultation Date/Type/Reason Admit Date/Time Dec 17, 2016 at 08:55 Type of Consultation: cardiology Referring Provider: CARLOS RODRIGUEZ MD 24 HR Interval Summary Free Text/Dictation resting in bed, afebrile, feel better when knew her Port a cath wont be removed. Plan for home health for [place] x 2 weeks. staff. Exam/Review of Systems Vital Signs Vitals Vital Signs Date Time Temp Pulse Resp B/P Pulse Ox O2 Delivery O2 Flow Rate FiO2 01/08/17 16:00 106 01/08/17 15:55 97.5 20 108/59 98 Intake and Output 01/07/17 01/07/17 01/08/17 15:00 23:00 07:00 Intake Total 700 ml Output Total 600 ml Balance 100 ml Exam Constitutional: alert, oriented Respiratory: clear to auscultation, normal air movement Cardiovascular: nl pulses, regular rate and rhythm Gastrointestinal: non-tender, soft Musculoskeletal: nl extremities to inspection 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: nl mental status, nl speech Results Result Diagram: 01/08/17 0647 01/08/17 0647 Results 24 hrs Laboratory Tests Test 01/08/17 06:47 White Blood Count 11.5 #H Red Blood Count 3.50 L Hemoglobin 11.0 L Hematocrit 31.8 L Mean Corpuscular Volume 90.9 Mean Corpuscular Hemoglobin 31.4 Mean Corpuscular Hemoglobin Concent 34.6 Red Cell Distribution Width 12.5 Platelet Count 620 H Mean Platelet Volume 9.5 Neutrophils % 78.7 H Lymphocytes % 5.9 L Monocytes % 5.4 Eosinophils % 7.9 H Basophils % 0.6 Nucleated Red Blood Cells % 0.0 Neutrophils # 9.0 H Lymphocytes # 0.7 L Monocytes # 0.6 Eosinophils # 0.9 H Basophils # 0.1 Nucleated Red Blood Cells # 0.0 Sodium Level 135 Potassium Level 5.6 H Chloride Level 102 Carbon Dioxide Level 18 L Anion Gap 21 H Blood Urea Nitrogen 56 H Creatinine 1.78 H Glucose Level 96 Calcium Level 10.8 H Medications Medications Current Medications Ondansetron HCl (Zofran Inj) 4 mg Q6H PRN IV NAUSEA AND/OR VOMITING Last administered on 12/30/16 23:14; Admin Dose 4 MG; Start 12/17/16 at 13:00 Morphine Sulfate (morphine) 1 mg Q4H PRN IV PAIN LEVEL 7-10; Start 12/17/16 at 13:00 Pantoprazole (Protonix Tab) 40 mg DAILY@06 PO Last administered on 01/08/17 06 :21; Admin Dose 40 MG; Start 12/18/16 at 06:00 Acetaminophen (Tylenol Tab) 500 mg Q4H PRN PO PAIN AND OR ELEVATED TEMP Last administered on 01/03/17 22:10; Admin Dose 500 MG; Start 12/17/16 at 22:30 Albuterol (Ventolin Hfa) 2 puff Q4H PRN INH WHEEZING AND SOB; Start 12/17/16 at 22:30 Folic Acid (Folic Acid) 1 mg DAILY PO Last administered on 01/08/17 08:33; Admin Dose 1 MG; Start 12/18/16 at 09:00 Hydroxyzine Pamoate (Vistaril) 25 mg QHS PRN PO ITCHING Last administered on 21:50; Admin Dose 25 MG; Start 12/17/16 at 22:30 Magnesium Chloride (Mag 64) 64 mg BID PO Last administered on 01/08/17 12:21; Admin Dose 64 MG; Start 12/17/16 at 23:30 Famotidine (Pepcid) 20 mg Q24H PO Last administered on 01/07/17 21:50; Admin Dose 20 MG; Start 12/17/16 at 22:30 Mupirocin (Bactroban) 1 applic BID TOP Last administered on 01/08/17 08:33; Admin Dose 1 APPLIC; Start 12/19/16 at 21:00 Simethicone (Mylicon) 80 mg BID PRN PO DISTENSION/GAS/BLOATING Last administered on 01/01/17 08:44; Admin Dose 80 MG; Start 12/22/16 at 14:00 Metoprolol Tartrate (Lopressor) 5 mg Q4H PRN IV HR>110 Hold SBP<100; Start at 18:00 Midodrine (Proamatine) 5 mg Q8 PRN PO SBP <100 Last administered on 01/07/17 07:41; Admin Dose 5 MG; Start 12/30/16 at 22:00 Atenolol (Tenormin) 12.5 mg BID NGT Last administered on 01/07/17 09:36; Admin Dose 12.5 MG; Start 12/30/16 at 21:00 Miscellaneous Information (*Rx Drug Level Order Reminder*) VANCO RANDOM ON 12/13... ONCE ONCE XX ; Start 01/09/17 at 05:00; Stop 01/09/17 at 05:01 Midodrine (Proamatine) 5 mg Q8H PRN PO FOR SBP BELOW 100 Last administered on 12:23; Admin Dose 5 MG; Start 01/08/17 at 09:00 Citric Acid/ Sodium Citrate (Bicitra) 30 ml TID PO ; Start 01/08/17 at 18:00 DEVENDRA GOMES Jan 08, 2017 18:26
[2017-01-08] MEDS: CITRIC ACID/SODIUM CITRATE 15 ML CUP PO SCH ×2 (18:49→21:17)
[2017-01-08] MEDS: FAMOTIDINE 20 MG TAB PO SCH (23:46)
[2017-01-08] MEDS: hydrOXYzine PAMOATE 25 MG CAP PO PRN (23:50)
[2017-01-09] VITALS (12 sets, daily range): BP systolic 81–99; BP diastolic 55–59; PULSE 99–116; RESP 18–20
[2017-01-09] MEDS: PANTOPRAZOLE (EC) 40 MG TAB PO SCH (06:15)
[2017-01-09 06:22] LABS: ADD SCAN DIFF NO
[2017-01-09 06:24] LABS: BASOPHIL # 0.1 10^3/ul (0.0-0.1); BASOPHILS % 0.6 % (0.0-2.0); EOSINOPHILS # 0.8 10^3/ul (0.0-0.5); EOSINOPHILS % 9.6 % (0.0-7.0); HEMATOCRIT 32.3 % (37.0-47.0); HEMOGLOBIN 11.1 g/dl (12.0-16.0); LYMPHOCYTES # 0.9 10^3/ul (0.8-2.9); LYMPHOCYTES % 10.4 % (15.0-51.0); MEAN CORPUSCULAR HEMOGLOBIN 31.2 pg (29.0-33.0); MEAN CORPUSCULAR HGB CONC 34.4 g/dl (32.0-37.0); MEAN CORPUSCULAR VOLUME 90.7 fl (82.0-101.0); MEAN PLATELET VOLUME 9.5 fl (7.4-10.4); MONOCYTE # 0.5 10^3/ul (0.3-0.9); NEUTROPHILS % 71.7 % (39.0-77.0); RED BLOOD COUNT 3.56 10^6/ul (4.20-5.40); RED CELL DISTRIBUTION WIDTH 12.6 % (11.5-14.5); WHITE BLOOD COUNT 8.4 10^3/ul (4.8-10.8)
[2017-01-09 06:46] LABS: PLATELET COUNT 593 10^3/UL (140-415)
[2017-01-09 06:59] LABS: CALCIUM 10.5 mg/dl (8.4-10.2); CREATININE 1.56 mg/dl (0.44-1.00)
[2017-01-09] MEDS: ATENOLOL 25 MG TAB NGT SCH ×2 (09:00→21:00)
[2017-01-09] MEDS: CITRIC ACID/SODIUM CITRATE 15 ML CUP PO SCH ×3 (09:43→22:08)
[2017-01-09] MEDS: MUPIROCIN 2% 22 GM OINT TOP SCH ×2 (09:45→22:10)
[2017-01-09] MEDS: MAGNESIUM CHLORIDE (SR) 64 MG TAB PO SCH ×2 (09:45→22:09)
[2017-01-09] MEDS: FOLIC ACID 1 MG TAB PO SCH (09:45)
[2017-01-09] MEDS ORDERED: SOD CHLORIDE 0.9% 1,000 ML IV SCH (11:30)
[2017-01-09] MEDS ORDERED: VANCOMYCIN 500MG/NS (PMX) 100 ML IVPB SCH (13:00)
--- NOTE | 2017-01-09 18:57 | CONS ---
Date/Time of Note Date/Time of Note DATE: 01/09/17 TIME: 18:56 Assessment/Plan Assessment/Plan Chief Complaint/Hosp Course IMPRESSION: 1. Tachyarrhythmia at this time, most consistent with sinus tachycardia.- overall improved intially after IVF/midodrine BP support/digoxin/NL TSH/FT4. NL EF by echo. Having some mild recurrent tachycardia when not able to receive BB dose 2. Hypotension, borderline and labile.-on midodrine 3. Abnormal electrocardiogram with nonspecific ST-T abnormalities, assess for acute coronary syndrome.NL EF by echo this admit/negative trop 4. History of Hirschsprung disease. 5. Possible anxiety. 6. Acidosis. 7. Renal failure. 8. Status post ileostomy. 9.Bacteremia-by blood cultures Recc: -Tele -continue midodrine BP support as necessary with slight increase in dose -BB as tolerated only -Continue abx's and f/u cx data Problems: Consultation Date/Type/Reason Admit Date/Time Dec 17, 2016 at 08:55 Initial Consult Date 12/26/2016 Type of Consultation: cardiology Reason for Consultation tachycardia Referring Provider: CARLOS RODRIGUEZ MD Exam/Review of Systems Vital Signs Vitals Vital Signs Date Time Temp Pulse Resp B/P Pulse Ox O2 Delivery O2 Flow Rate FiO2 01/09/17 16:42 110 01/09/17 16:27 98.0 20 99/56 100 Intake and Output 01/08/17 01/08/17 01/09/17 15:00 23:00 07:00 Intake Total 1200 ml 500 ml Output Total 2800 ml 3800 ml Balance -1600 ml -3300 ml Exam Review of Systems: CONSTITUTIONAL: No fevers, chills. PULMONARY: No sob CARDIOVASCULAR: No chest pain/palpitations GASTROINTESTINAL: No nausea/vomiting. GENITOURINARY: No hematuria/dysuria. MUSCULOSKELETAL: No myagias/arthalgias. PSYCHIATRIC: The patient denies depression. NEUROLOGIC: No weakness Constitutional: alert, oriented Psych: no complaints Head: normocephalic ENMT: mucosa pink and moist Neck: jvd (8 cm water), supple Respiratory: clear to auscultation Cardiovascular: other (tachycardic, regular rhythm) Gastrointestinal: non-tender, soft Musculoskeletal: muscle tone (normal) Extremities: edema (none) 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: other (No focal deficits) Results Result Diagram: 01/09/17 0603 01/09/17 0603 Results 24 hrs Laboratory Tests Test 01/09/17 06:03 White Blood Count 8.4 # Red Blood Count 3.56 L Hemoglobin 11.1 L Hematocrit 32.3 L Mean Corpuscular Volume 90.7 Mean Corpuscular Hemoglobin 31.2 Mean Corpuscular Hemoglobin Concent 34.4 Red Cell Distribution Width 12.6 Platelet Count 593 H Mean Platelet Volume 9.5 Neutrophils % 71.7 Lymphocytes % 10.4 L Monocytes % 6.0 Eosinophils % 9.6 H Basophils % 0.6 Nucleated Red Blood Cells % 0.0 Neutrophils # 6.0 Lymphocytes # 0.9 Monocytes # 0.5 Eosinophils # 0.8 H Basophils # 0.1 Nucleated Red Blood Cells # 0.0 Sodium Level 137 Potassium Level 4.0 Chloride Level 100 Carbon Dioxide Level 19 L Anion Gap 22 H Blood Urea Nitrogen 54 H Creatinine 1.56 H Glucose Level 177 Calcium Level 10.5 H Random Vancomycin Level 18.7 Medications Medications Current Medications Ondansetron HCl (Zofran Inj) 4 mg Q6H PRN IV NAUSEA AND/OR VOMITING Last administered on 12/30/16 23:14; Admin Dose 4 MG; Start 12/17/16 at 13:00 Morphine Sulfate (morphine) 1 mg Q4H PRN IV PAIN LEVEL 7-10; Start 12/17/16 at 13:00 Pantoprazole (Protonix Tab) 40 mg DAILY@06 PO Last administered on 01/09/17 06 :15; Admin Dose 40 MG; Start 12/18/16 at 06:00 Acetaminophen (Tylenol Tab) 500 mg Q4H PRN PO PAIN AND OR ELEVATED TEMP Last administered on 01/03/17 22:10; Admin Dose 500 MG; Start 12/17/16 at 22:30 Albuterol (Ventolin Hfa) 2 puff Q4H PRN INH WHEEZING AND SOB; Start 12/17/16 at 22:30 Folic Acid (Folic Acid) 1 mg DAILY PO Last administered on 01/09/17 09:45; Admin Dose 1 MG; Start 12/18/16 at 09:00 Hydroxyzine Pamoate (Vistaril) 25 mg QHS PRN PO ITCHING Last administered on 6/ 28/17at 23:50; Admin Dose 25 MG; Start 12/17/16 at 22:30 Magnesium Chloride (Mag 64) 64 mg BID PO Last administered on 01/09/17 09:45; Admin Dose 64 MG; Start 12/17/16 at 23:30 Famotidine (Pepcid) 20 mg Q24H PO Last administered on 01/08/17 23:46; Admin Dose 20 MG; Start 12/17/16 at 22:30 Mupirocin (Bactroban) 1 applic BID TOP Last administered on 01/09/17 09:45; Admin Dose 1 APPLIC; Start 12/19/16 at 21:00 Simethicone (Mylicon) 80 mg BID PRN PO DISTENSION/GAS/BLOATING Last administered on 01/01/17 08:44; Admin Dose 80 MG; Start 12/22/16 at 14:00 Metoprolol Tartrate (Lopressor) 5 mg Q4H PRN IV HR>110 Hold SBP<100; Start at 18:00 Midodrine (Proamatine) 5 mg Q8 PRN PO SBP <100 Last administered on 01/07/17 07:41; Admin Dose 5 MG; Start 12/30/16 at 22:00 Atenolol (Tenormin) 12.5 mg BID NGT Last administered on 01/07/17 09:36; Admin Dose 12.5 MG; Start 12/30/16 at 21:00 Midodrine (Proamatine) 5 mg Q8H PRN PO FOR SBP BELOW 100 Last administered on 12:23; Admin Dose 5 MG; Start 01/08/17 at 09:00 Citric Acid/ Sodium Citrate 30 ml 30 ml TID PO Last administered on 01/09/17 12:56; Admin Dose 30 ML; Start 01/08/17 at 18:00 Vancomycin HCl 100 ml @ 100 mls/hr Q24H IVPB Last administered on 01/09/17 12 :56; Admin Dose 100 MLS/HR; Start 01/09/17 at 13:00 Sodium Chloride (NS) 1,000 ml @ 80 mls/hr [id number] IV Last administered on 01/09 12:56; Admin Dose 80 MLS/HR; Start 01/09/17 at 11:30; Stop 01/09/17 at 23: 59 ANGEL JARAMILLO Jan 09, 2017 18:57
[2017-01-09] MEDS ORDERED: MIDODRINE 5 MG TAB PO PRN (19:00)
--- NOTE | 2017-01-09 19:17 | CONS ---
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-) - low-level nonspecific increase in tracer uptake within the mediastinum on WBC tagged scan 12/31/2016 recommendations: - IV vancomycin (12/27/2016-) x2 weeks from the first negative blood culture result, i.e. 01/02/2017-01/16/2017 - check CBC and BMP at least once weekly while Pt's on antibiotic Problems: Consultation Date/Type/Reason Admit Date/Time Dec 17, 2016 at 08:55 Type of Consultation: id Referring Provider: CARLOS RODRIGUEZ MD Exam/Review of Systems Vital Signs Vitals Vital Signs Date Time Temp Pulse Resp B/P Pulse Ox O2 Delivery O2 Flow Rate FiO2 01/09/17 16:42 110 01/09/17 16:27 98.0 20 99/56 100 Intake and Output 01/08/17 01/08/17 01/09/17 15:00 23:00 07:00 Intake Total 1200 ml 500 ml Output Total 2800 ml 3800 ml Balance -1600 ml -3300 ml Results Result Diagram: 01/09/17 0603 01/09/17 0603 Results 24 hrs Laboratory Tests Test 01/09/17 06:03 White Blood Count 8.4 # Red Blood Count 3.56 L Hemoglobin 11.1 L Hematocrit 32.3 L Mean Corpuscular Volume 90.7 Mean Corpuscular Hemoglobin 31.2 Mean Corpuscular Hemoglobin Concent 34.4 Red Cell Distribution Width 12.6 Platelet Count 593 H Mean Platelet Volume 9.5 Neutrophils % 71.7 Lymphocytes % 10.4 L Monocytes % 6.0 Eosinophils % 9.6 H Basophils % 0.6 Nucleated Red Blood Cells % 0.0 Neutrophils # 6.0 Lymphocytes # 0.9 Monocytes # 0.5 Eosinophils # 0.8 H Basophils # 0.1 Nucleated Red Blood Cells # 0.0 Sodium Level 137 Potassium Level 4.0 Chloride Level 100 Carbon Dioxide Level 19 L Anion Gap 22 H Blood Urea Nitrogen 54 H Creatinine 1.56 H Glucose Level 177 Calcium Level 10.5 H Random Vancomycin Level 18.7 Medications Medications Current Medications Ondansetron HCl (Zofran Inj) 4 mg Q6H PRN IV NAUSEA AND/OR VOMITING Last administered on 12/30/16 23:14; Admin Dose 4 MG; Start 12/17/16 at 13:00 Morphine Sulfate (morphine) 1 mg Q4H PRN IV PAIN LEVEL 7-10; Start 12/17/16 at 13:00 Pantoprazole (Protonix Tab) 40 mg DAILY@06 PO Last administered on 01/09/17 06 :15; Admin Dose 40 MG; Start 12/18/16 at 06:00 Acetaminophen (Tylenol Tab) 500 mg Q4H PRN PO PAIN AND OR ELEVATED TEMP Last administered on 01/03/17 22:10; Admin Dose 500 MG; Start 12/17/16 at 22:30 Albuterol (Ventolin Hfa) 2 puff Q4H PRN INH WHEEZING AND SOB; Start 12/17/16 at 22:30 Folic Acid (Folic Acid) 1 mg DAILY PO Last administered on 01/09/17 09:45; Admin Dose 1 MG; Start 12/18/16 at 09:00 Hydroxyzine Pamoate (Vistaril) 25 mg QHS PRN PO ITCHING Last administered on 23:50; Admin Dose 25 MG; Start 12/17/16 at 22:30 Magnesium Chloride (Mag 64) 64 mg BID PO Last administered on 01/09/17 09:45; Admin Dose 64 MG; Start 12/17/16 at 23:30 Famotidine (Pepcid) 20 mg Q24H PO Last administered on 01/08/17 23:46; Admin Dose 20 MG; Start 12/17/16 at 22:30 Mupirocin (Bactroban) 1 applic BID TOP Last administered on 01/09/17 09:45; Admin Dose 1 APPLIC; Start 12/19/16 at 21:00 Simethicone (Mylicon) 80 mg BID PRN PO DISTENSION/GAS/BLOATING Last administered on 01/01/17 08:44; Admin Dose 80 MG; Start 12/22/16 at 14:00 Metoprolol Tartrate (Lopressor) 5 mg Q4H PRN IV HR>110 Hold SBP<100; Start at 18:00 Atenolol (Tenormin) 12.5 mg BID NGT Last administered on 01/07/17 09:36; Admin Dose 12.5 MG; Start 12/30/16 at 21:00 Midodrine (Proamatine) 5 mg Q8H PRN PO FOR SBP BELOW 100 Last administered on 12:23; Admin Dose 5 MG; Start 01/08/17 at 09:00 Citric Acid/ Sodium Citrate 30 ml 30 ml TID PO Last administered on 01/09/17 12:56; Admin Dose 30 ML; Start 01/08/17 at 18:00 Vancomycin HCl 100 ml @ 100 mls/hr Q24H IVPB Last administered on 01/09/17 12 :56; Admin Dose 100 MLS/HR; Start 01/09/17 at 13:00 Sodium Chloride (NS) 1,000 ml @ 80 mls/hr [id number] IV Last administered on 01/09 12:56; Admin Dose 80 MLS/HR; Start 01/09/17 at 11:30; Stop 01/09/17 at 23: 59 Midodrine (Proamatine) 10 mg Q8 PRN PO SBP <100; Start 01/09/17 at 19:00; Status LISS ARVIZU MD Jan 09, 2017 19:17
--- NOTE | 2017-01-09 21:24 | CONS ---
Date/Time of Note Date/Time of Note DATE: 01/09/17 TIME: 21:23 Assessment/Plan Assessment/Plan Additional Assessment/Plan 1. Acute kidney injury secondary to severe prerenal azotemia secondary to nausea, vomiting and decreased p.o. intake. 2. Hyponatremia with a sodium of 128 secondary to hypovolemic hyponatremia. 4. Hyperkalemia secondary to worsening acute kidney injury and renal failure.- inow improved 5. Metabolic acidosis with bicarbonate of 16 secondary to increased ileostomy output.- now becomes severe with PH low on ABG - s/p HCO3 drip PLAN: Cr 1.56, K normal, will give NS 1 liter then stop continue bicitra 30ml PO TID will follow up Consultation Date/Type/Reason Admit Date/Time Dec 17, 2016 at 08:55 Initial Consult Date Dec Type of Consultation: NEPHROLOGY Referring Provider: CARLOS RODRIGUEZ MD 24 HR Interval Summary Free Text/Dictation Cr improved to 1.56,HCO3 19, BP stable, toleratign PO diet Exam/Review of Systems Vital Signs Vitals Vital Signs Date Time Temp Pulse Resp B/P Pulse Ox O2 Delivery O2 Flow Rate FiO2 01/09/17 20:25 99 01/09/17 20:07 98.7 19 81/55 99 Intake and Output 01/08/17 01/08/17 01/09/17 15:00 23:00 07:00 Intake Total 1200 ml 500 ml Output Total 2800 ml 3800 ml Balance -1600 ml -3300 ml Exam Constitutional: alert, oriented Head: normocephalic Neck: supple Respiratory: normal air movement Cardiovascular: nl pulses Gastrointestinal: non-tender, other (Ileostomy), soft Musculoskeletal: nl gait and stance Extremities: normal pulses 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 Results Result Diagram: 01/09/17 0603 01/09/17 0603 Results 24 hrs Laboratory Tests Test 01/09/17 06:03 White Blood Count 8.4 # Red Blood Count 3.56 L Hemoglobin 11.1 L Hematocrit 32.3 L Mean Corpuscular Volume 90.7 Mean Corpuscular Hemoglobin 31.2 Mean Corpuscular Hemoglobin Concent 34.4 Red Cell Distribution Width 12.6 Platelet Count 593 H Mean Platelet Volume 9.5 Neutrophils % 71.7 Lymphocytes % 10.4 L Monocytes % 6.0 Eosinophils % 9.6 H Basophils % 0.6 Nucleated Red Blood Cells % 0.0 Neutrophils # 6.0 Lymphocytes # 0.9 Monocytes # 0.5 Eosinophils # 0.8 H Basophils # 0.1 Nucleated Red Blood Cells # 0.0 Sodium Level 137 Potassium Level 4.0 Chloride Level 100 Carbon Dioxide Level 19 L Anion Gap 22 H Blood Urea Nitrogen 54 H Creatinine 1.56 H Glucose Level 177 Calcium Level 10.5 H Random Vancomycin Level 18.7 Medications Medications Current Medications Ondansetron HCl (Zofran Inj) 4 mg Q6H PRN IV NAUSEA AND/OR VOMITING Last administered on 12/30/16 23:14; Admin Dose 4 MG; Start 12/17/16 at 13:00 Morphine Sulfate (morphine) 1 mg Q4H PRN IV PAIN LEVEL 7-10; Start 12/17/16 at 13:00 Pantoprazole (Protonix Tab) 40 mg DAILY@06 PO Last administered on 01/09/17 06 :15; Admin Dose 40 MG; Start 12/18/16 at 06:00 Acetaminophen (Tylenol Tab) 500 mg Q4H PRN PO PAIN AND OR ELEVATED TEMP Last administered on 01/03/17 22:10; Admin Dose 500 MG; Start 12/17/16 at 22:30 Albuterol (Ventolin Hfa) 2 puff Q4H PRN INH WHEEZING AND SOB; Start 12/17/16 at 22:30 Folic Acid (Folic Acid) 1 mg DAILY PO Last administered on 01/09/17 09:45; Admin Dose 1 MG; Start 12/18/16 at 09:00 Hydroxyzine Pamoate (Vistaril) 25 mg QHS PRN PO ITCHING Last administered on 23:50; Admin Dose 25 MG; Start 12/17/16 at 22:30 Magnesium Chloride (Mag 64) 64 mg BID PO Last administered on 01/09/17 09:45; Admin Dose 64 MG; Start 12/17/16 at 23:30 Famotidine (Pepcid) 20 mg Q24H PO Last administered on 01/08/17 23:46; Admin Dose 20 MG; Start 12/17/16 at 22:30 Mupirocin (Bactroban) 1 applic BID TOP Last administered on 01/09/17 09:45; Admin Dose 1 APPLIC; Start 12/19/16 at 21:00 Simethicone (Mylicon) 80 mg BID PRN PO DISTENSION/GAS/BLOATING Last administered on 01/01/17 08:44; Admin Dose 80 MG; Start 12/22/16 at 14:00 Metoprolol Tartrate (Lopressor) 5 mg Q4H PRN IV HR>110 Hold SBP<100; Start at 18:00 Atenolol (Tenormin) 12.5 mg BID NGT Last administered on 01/07/17 09:36; Admin Dose 12.5 MG; Start 12/30/16 at 21:00 Citric Acid/ Sodium Citrate 30 ml 30 ml TID PO Last administered on 01/09/17 12:56; Admin Dose 30 ML; Start 01/08/17 at 18:00 Vancomycin HCl 100 ml @ 100 mls/hr Q24H IVPB Last administered on 01/09/17 12 :56; Admin Dose 100 MLS/HR; Start 01/09/17 at 13:00 Sodium Chloride (NS) 1,000 ml @ 80 mls/hr [id number] IV Last administered on 01/09 12:56; Admin Dose 80 MLS/HR; Start 01/09/17 at 11:30; Stop 01/09/17 at 23: 59 Midodrine (Proamatine) 10 mg Q8H PRN PO SBP <100; Start 01/09/17 at 19:30 ROHAN VLEÁZQUEZ MD Jan 09, 2017 21:24
[2017-01-09] MEDS: FAMOTIDINE 20 MG TAB PO SCH (22:09)
[2017-01-09] MEDS: MIDODRINE 5 MG TAB PO PRN (22:09)
[2017-01-10] VITALS (12 sets, daily range): BP systolic 84–96; BP diastolic 45–82; PULSE 92–109; RESP 16–20
[2017-01-10] MEDS: hydrOXYzine PAMOATE 25 MG CAP PO PRN ×2 (01:12→22:34)
[2017-01-10] MEDS: PANTOPRAZOLE (EC) 40 MG TAB PO SCH (06:05)
[2017-01-10 08:08] LABS: CREATININE 1.12 mg/dl (0.44-1.00)
[2017-01-10] MEDS: ATENOLOL 25 MG TAB NGT SCH ×2 (08:58→20:46)
[2017-01-10] MEDS: CITRIC ACID/SODIUM CITRATE 15 ML CUP PO SCH (09:05)
[2017-01-10] MEDS: MAGNESIUM CHLORIDE (SR) 64 MG TAB PO SCH ×2 (09:05→20:45)
[2017-01-10] MEDS: FOLIC ACID 1 MG TAB PO SCH (09:05)
[2017-01-10] MEDS: MUPIROCIN 2% 22 GM OINT TOP SCH ×2 (09:06→20:55)
--- NOTE | 2017-01-10 11:14 | CONS ---
Date/Time of Note Date/Time of Note DATE: 01/10/17 TIME: 11:13 Assessment/Plan Assessment/Plan Additional Assessment/Plan 1. Acute kidney injury secondary to severe prerenal azotemia secondary to nausea, vomiting and decreased p.o. intake. 2. Hyponatremia with a sodium of 128 secondary to hypovolemic hyponatremia. 4. Hyperkalemia secondary to worsening acute kidney injury and renal failure.- inow improved 5. Metabolic acidosis with bicarbonate of 16 secondary to increased ileostomy output.- now becomes severe with PH low on ABG - s/p HCO3 drip PLAN: BUN/cr stable, given 1L NS yesterday, no electrolytes today continue bicitra 30ml PO TID will follow up Consultation Date/Type/Reason Admit Date/Time Dec 17, 2016 at 08:55 Initial Consult Date Dec Type of Consultation: NEPHROLOGY Referring Provider: CARLOS RODRIGUEZ MD 24 HR Interval Summary Free Text/Dictation no acute events, c/o nausea Exam/Review of Systems Vital Signs Vitals Vital Signs Date Time Temp Pulse Resp B/P Pulse Ox O2 Delivery O2 Flow Rate FiO2 01/10/17 08:44 92 01/10/17 08:24 98.1 18 85/62 100 Intake and Output 01/09/17 01/09/17 01/10/17 15:00 23:00 07:00 Intake Total 1500 ml 600 ml Output Total 1000 ml 4700 ml Balance 500 ml -4100 ml Exam Constitutional: alert, oriented Head: normocephalic Neck: supple Respiratory: normal air movement Cardiovascular: nl pulses Gastrointestinal: non-tender, other (Ileostomy), soft Musculoskeletal: nl gait and stance Extremities: normal pulses 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: ANTISQUE[employer] APPLIER II-XII intact Results Result Diagram: 01/09/17 0603 01/10/17 0640 Results 24 hrs Laboratory Tests Test 01/10/17 06:40 Blood Urea Nitrogen 43 #H Creatinine 1.12 H Medications Medications Current Medications Ondansetron HCl (Zofran Inj) 4 mg Q6H PRN IV NAUSEA AND/OR VOMITING Last administered on 12/30/16 23:14; Admin Dose 4 MG; Start 12/17/16 at 13:00 Morphine Sulfate (morphine) 1 mg Q4H PRN IV PAIN LEVEL 7-10; Start 12/17/16 at 13:00 Pantoprazole (Protonix Tab) 40 mg DAILY@06 PO Last administered on 01/10/17 06 :05; Admin Dose 40 MG; Start 12/18/16 at 06:00 Acetaminophen (Tylenol Tab) 500 mg Q4H PRN PO PAIN AND OR ELEVATED TEMP Last administered on 01/03/17 22:10; Admin Dose 500 MG; Start 12/17/16 at 22:30 Albuterol (Ventolin Hfa) 2 puff Q4H PRN INH WHEEZING AND SOB; Start 12/17/16 at 22:30 Folic Acid (Folic Acid) 1 mg DAILY PO Last administered on 01/10/17 09:05; Admin Dose 1 MG; Start 12/18/16 at 09:00 Hydroxyzine Pamoate (Vistaril) 25 mg QHS PRN PO ITCHING Last administered on 01:12; Admin Dose 25 MG; Start 12/17/16 at 22:30 Magnesium Chloride (Mag 64) 64 mg BID PO Last administered on 01/10/17 09:05; Admin Dose 64 MG; Start 12/17/16 at 23:30 Famotidine (Pepcid) 20 mg Q24H PO Last administered on 01/09/17 22:09; Admin Dose 20 MG; Start 12/17/16 at 22:30 Mupirocin (Bactroban) 1 applic BID TOP Last administered on 01/10/17 09:06; Admin Dose 1 APPLIC; Start 12/19/16 at 21:00 Simethicone (Mylicon) 80 mg BID PRN PO DISTENSION/GAS/BLOATING Last administered on 01/01/17 08:44; Admin Dose 80 MG; Start 12/22/16 at 14:00 Metoprolol Tartrate (Lopressor) 5 mg Q4H PRN IV HR>110 Hold SBP<100; Start at 18:00 Atenolol (Tenormin) 12.5 mg BID NGT Last administered on 01/07/17 09:36; Admin Dose 12.5 MG; Start 12/30/16 at 21:00 Citric Acid/ Sodium Citrate 30 ml 30 ml TID PO Last administered on 01/10/17 09:05; Admin Dose 30 ML; Start 01/08/17 at 18:00 Vancomycin HCl (Vancocin) 100 ml @ 100 mls/hr Q24H IVPB Last administered on 12:56; Admin Dose 100 MLS/HR; Start 01/09/17 at 13:00 Midodrine (Proamatine) 10 mg Q8H PRN PO SBP <100 Last administered on 22:09; Admin Dose 10 MG; Start 01/09/17 at 19:30 ROHAN VELÁZQUEZ MD Jan 10, 2017 11:14
[2017-01-10] MEDS: VANCOMYCIN 750 MG in SOD CHLORIDE 0.9% 150 ML IVPB SCH (13:27)
[2017-01-10] MEDS: CITRIC ACID/NA CITRATE 30 ML CUP PO SCH ×2 (13:27→20:45)
--- NOTE | 2017-01-10 16:44 | CONS ---
Date/Time of Note Date/Time of Note DATE: 01/10/17 TIME: 16:43 Assessment/Plan Assessment/Plan Chief Complaint/Hosp Course IMPRESSION: 1. Tachyarrhythmia at this time, most consistent with sinus tachycardia.- overall improved intially after IVF/midodrine BP support/digoxin/NL TSH/FT4. NL EF by echo. Having some mild recurrent tachycardia when not able to receive BB dose 2. Hypotension, borderline and labile.-on midodrine 3. Abnormal electrocardiogram with nonspecific ST-T abnormalities, assess for acute coronary syndrome.NL EF by echo this admit/negative trop 4. History of Hirschsprung disease. 5. Possible anxiety. 6. Acidosis. 7. Renal failure. 8. Status post ileostomy. 9.Bacteremia-by blood cultures Recc: -Tele -continue midodrine BP support as necessary following BP closely -BB as tolerated only -Continue abx's and f/u cx data Problems: Consultation Date/Type/Reason Admit Date/Time Dec 17, 2016 at 08:55 Initial Consult Date 12/26/2016 Type of Consultation: Cardiology Reason for Consultation tachycardia/Hotn Referring Provider: CARLOS RODRIGUEZ MD Exam/Review of Systems Vital Signs Vitals Vital Signs Date Time Temp Pulse Resp B/P Pulse Ox O2 Delivery O2 Flow Rate FiO2 01/10/17 16:36 98.6 95 18 84/82 98 Intake and Output 01/09/17 01/09/17 01/10/17 15:00 23:00 07:00 Intake Total 1500 ml 600 ml Output Total 1000 ml 4700 ml Balance 500 ml -4100 ml Exam Review of Systems: CONSTITUTIONAL: No fevers, chills. PULMONARY: No sob CARDIOVASCULAR: No chest pain/palpitations GASTROINTESTINAL: No nausea/vomiting. GENITOURINARY: No hematuria/dysuria. MUSCULOSKELETAL: No myagias/arthalgias. PSYCHIATRIC: The patient denies depression. NEUROLOGIC: No weakness Constitutional: alert Psych: no complaints Head: normocephalic Eyes: nl conjunctiva ENMT: mucosa pink and moist Neck: jvd (8 cm water), supple Respiratory: clear to auscultation Cardiovascular: other (tachycardic) Gastrointestinal: non-tender, soft Musculoskeletal: muscle tone (normal) Extremities: edema (none) 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: other (No focal deficits) Results Result Diagram: 01/09/17 0603 01/10/17 0640 Results 24 hrs Laboratory Tests Test 01/10/17 06:40 Blood Urea Nitrogen 43 #H Creatinine 1.12 H Medications Medications Current Medications Ondansetron HCl (Zofran Inj) 4 mg Q6H PRN IV NAUSEA AND/OR VOMITING Last administered on 12/30/16 23:14; Admin Dose 4 MG; Start 12/17/16 at 13:00 Morphine Sulfate (morphine) 1 mg Q4H PRN IV PAIN LEVEL 7-10; Start 12/17/16 at 13:00 Pantoprazole (Protonix Tab) 40 mg DAILY@06 PO Last administered on 01/10/17 06 :05; Admin Dose 40 MG; Start 12/18/16 at 06:00 Acetaminophen (Tylenol Tab) 500 mg Q4H PRN PO PAIN AND OR ELEVATED TEMP Last administered on 01/03/17 22:10; Admin Dose 500 MG; Start 12/17/16 at 22:30 Albuterol (Ventolin Hfa) 2 puff Q4H PRN INH WHEEZING AND SOB; Start 12/17/16 at 22:30 Folic Acid (Folic Acid) 1 mg DAILY PO Last administered on 01/10/17 09:05; Admin Dose 1 MG; Start 12/18/16 at 09:00 Hydroxyzine Pamoate (Vistaril) 25 mg QHS PRN PO ITCHING Last administered on 01:12; Admin Dose 25 MG; Start 12/17/16 at 22:30 Magnesium Chloride (Mag 64) 64 mg BID PO Last administered on 01/10/17 09:05; Admin Dose 64 MG; Start 12/17/16 at 23:30 Famotidine (Pepcid) 20 mg Q24H PO Last administered on 01/09/17 22:09; Admin Dose 20 MG; Start 12/17/16 at 22:30 Mupirocin (Bactroban) 1 applic BID TOP Last administered on 01/10/17 09:06; Admin Dose 1 APPLIC; Start 12/19/16 at 21:00 Simethicone (Mylicon) 80 mg BID PRN PO DISTENSION/GAS/BLOATING Last administered on 01/01/17 08:44; Admin Dose 80 MG; Start 12/22/16 at 14:00 Metoprolol Tartrate (Lopressor) 5 mg Q4H PRN IV HR>110 Hold SBP<100; Start at 18:00 Atenolol (Tenormin) 12.5 mg BID NGT Last administered on 01/07/17 09:36; Admin Dose 12.5 MG; Start 12/30/16 at 21:00 Midodrine 10 mg 10 mg Q8H PRN PO SBP <100 Last administered on 01/09/17 22:09 ; Admin Dose 10 MG; Start 01/09/17 at 19:30 Vancomycin HCl/ Sodium Chloride (Vancocin/NS) 150 ml @ 75 mls/hr Q24H IVPB Last administered on 01/10/17 13:27; Admin Dose 75 MLS/HR; Start 01/10/17 at 13 :00 Citric Acid/ Sodium Citrate (Bicitra) 30 ml TID PO Last administered on 13:27; Admin Dose 30 ML; Start 01/10/17 at 13:30 ANGEL JARAMILLO Jan 10, 2017 16:44
[2017-01-10] MEDS: MIDODRINE 5 MG TAB PO PRN (16:47)
--- NOTE | 2017-01-10 16:52 | CONS ---
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-) - low-level nonspecific increase in tracer uptake within the mediastinum on WBC tagged scan 12/31/2016 recommendations: - IV vancomycin (12/27/2016-) x2 weeks from the first negative blood culture result, i.e. 01/02/2017-01/16/2017 - check CBC and BMP at least once weekly while Pt's on antibiotic Consultation Date/Type/Reason Admit Date/Time Dec 17, 2016 at 08:55 Type of Consultation: NEPHROLOGY Referring Provider: CARLOS RODRIGUEZ MD 24 HR Interval Summary Free Text/Dictation Patient afebrile, hypotensive,home health got arranged but patient is staying until BP stable. staff Exam/Review of Systems Vital Signs Vitals Vital Signs Date Time Temp Pulse Resp B/P Pulse Ox O2 Delivery O2 Flow Rate FiO2 01/10/17 12:36 109 01/10/17 11:48 98.2 19 91/54 100 Intake and Output 01/09/17 01/09/17 01/10/17 15:00 23:00 07:00 Intake Total 1500 ml 600 ml Output Total 1000 ml 4700 ml Balance 500 ml -4100 ml Exam Constitutional: alert, oriented Respiratory: clear to auscultation, normal air movement Cardiovascular: nl pulses, regular rate and rhythm Gastrointestinal: non-tender, soft Musculoskeletal: nl extremities to inspection Extremities: normal pulses 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: nl mental status, nl speech Results Result Diagram: 01/09/17 0603 01/10/17 0640 Results 24 hrs Laboratory Tests Test 01/10/17 06:40 Blood Urea Nitrogen 43 #H Creatinine 1.12 H Medications Medications Current Medications Ondansetron HCl (Zofran Inj) 4 mg Q6H PRN IV NAUSEA AND/OR VOMITING Last administered on 12/30/16 23:14; Admin Dose 4 MG; Start 12/17/16 at 13:00 Morphine Sulfate (morphine) 1 mg Q4H PRN IV PAIN LEVEL 7-10; Start 12/17/16 at 13:00 Pantoprazole (Protonix Tab) 40 mg DAILY@06 PO Last administered on 01/10/17 06 :05; Admin Dose 40 MG; Start 12/18/16 at 06:00 Acetaminophen (Tylenol Tab) 500 mg Q4H PRN PO PAIN AND OR ELEVATED TEMP Last administered on 01/03/17 22:10; Admin Dose 500 MG; Start 12/17/16 at 22:30 Albuterol (Ventolin Hfa) 2 puff Q4H PRN INH WHEEZING AND SOB; Start 12/17/16 at 22:30 Folic Acid (Folic Acid) 1 mg DAILY PO Last administered on 01/10/17 09:05; Admin Dose 1 MG; Start 12/18/16 at 09:00 Hydroxyzine Pamoate (Vistaril) 25 mg QHS PRN PO ITCHING Last administered on 01:12; Admin Dose 25 MG; Start 12/17/16 at 22:30 Magnesium Chloride (Mag 64) 64 mg BID PO Last administered on 01/10/17 09:05; Admin Dose 64 MG; Start 12/17/16 at 23:30 Famotidine (Pepcid) 20 mg Q24H PO Last administered on 01/09/17 22:09; Admin Dose 20 MG; Start 12/17/16 at 22:30 Mupirocin (Bactroban) 1 applic BID TOP Last administered on 01/10/17 09:06; Admin Dose 1 APPLIC; Start 12/19/16 at 21:00 Simethicone (Mylicon) 80 mg BID PRN PO DISTENSION/GAS/BLOATING Last administered on 01/01/17 08:44; Admin Dose 80 MG; Start 12/22/16 at 14:00 Metoprolol Tartrate (Lopressor) 5 mg Q4H PRN IV HR>110 Hold SBP<100; Start at 18:00 Atenolol (Tenormin) 12.5 mg BID NGT Last administered on 01/07/17 09:36; Admin Dose 12.5 MG; Start 12/30/16 at 21:00 Midodrine 10 mg 10 mg Q8H PRN PO SBP <100 Last administered on 01/09/17 22:09 ; Admin Dose 10 MG; Start 01/09/17 at 19:30 Vancomycin HCl/ Sodium Chloride (Vancocin/NS) 150 ml @ 75 mls/hr Q24H IVPB Last administered on 01/10/17 13:27; Admin Dose 75 MLS/HR; Start 01/10/17 at 13 :00 Citric Acid/ Sodium Citrate (Bicitra) 30 ml TID PO Last administered on 13:27; Admin Dose 30 ML; Start 01/10/17 at 13:30 DEVENDRA GOMES Jan 10, 2017 16:37
--- NOTE | 2017-01-10 16:56 | PN ---
Date/Time of Note Date/Time of Note DATE: 01/10/17 TIME: 16:54 Assessment/Plan VTE Prophylaxis VTE Prophylaxis Intervention: SCD's Lines/Catheters IV Catheter Type (from [facility], [place]): Port-A-cath Urinary Cath still in place: No Assessment/Plan Chief Complaint/Hosp Course Patient's continues to be hypertensive, denies any fever, will check BMP today and tomorrow. ASSESSMENT AND PLAN: - Sepsis with staph bacteremia, repeat blood cultures negative, continue vancomycin until January 16, Dr. Ba is following an infection disease consultation. Dr. Raymond is following in vascular surgery consultation. - Metabolic acidosis, continue IV fluids with bicarb, Dr. Spain is following in nephrology consultation. - Intractable nausea and vomiting, resolved. Dr. Mendez is following in gastroenterology consultation. - Acute kidney injury. Dr. Spain is following in nephrology consultation. Continue IV fluids monitor electrolytes. - Hirschsprung disease. - Ileostomy. Further recommendations based on clinical course. Plan of care discussed with Dr. Paez. 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 Additional Comments Right chest Port-A-Cath Results Result Diagram: 01/09/17 0603 01/10/17 0640 Results 24 hrs Laboratory Tests Test 01/10/17 06:40 Blood Urea Nitrogen 43 #H Creatinine 1.12 H Medications Medications Current Medications Ondansetron HCl (Zofran Inj) 4 mg Q6H PRN IV NAUSEA AND/OR VOMITING Last administered on 12/30/16t 23:14; Admin Dose 4 MG; Start 12/17/16 at 13:00 Morphine Sulfate (morphine) 1 mg Q4H PRN IV PAIN LEVEL 7-10; Start 12/17/16 at 13:00 Pantoprazole (Protonix Tab) 40 mg DAILY@06 PO Last administered on 01/10/17 06 :05; Admin Dose 40 MG; Start 12/18/16 at 06:00 Acetaminophen (Tylenol Tab) 500 mg Q4H PRN PO PAIN AND OR ELEVATED TEMP Last administered on 01/03/17 22:10; Admin Dose 500 MG; Start 12/17/16 at 22:30 Albuterol (Ventolin Hfa) 2 puff Q4H PRN INH WHEEZING AND SOB; Start 12/17/16 at 22:30 Folic Acid (Folic Acid) 1 mg DAILY PO Last administered on 01/10/17 09:05; Admin Dose 1 MG; Start 12/18/16 at 09:00 Hydroxyzine Pamoate (Vistaril) 25 mg QHS PRN PO ITCHING Last administered on 01:12; Admin Dose 25 MG; Start 12/17/16 at 22:30 Magnesium Chloride (Mag 64) 64 mg BID PO Last administered on 01/10/17 09:05; Admin Dose 64 MG; Start 12/17/16 at 23:30 Famotidine (Pepcid) 20 mg Q24H PO Last administered on 01/09/17 22:09; Admin Dose 20 MG; Start 12/17/16 at 22:30 Mupirocin (Bactroban) 1 applic BID TOP Last administered on 01/10/17 09:06; Admin Dose 1 APPLIC; Start 12/19/16 at 21:00 Simethicone (Mylicon) 80 mg BID PRN PO DISTENSION/GAS/BLOATING Last administered on 01/01/17 08:44; Admin Dose 80 MG; Start 12/22/16 at 14:00 Metoprolol Tartrate (Lopressor) 5 mg Q4H PRN IV HR>110 Hold SBP<100; Start at 18:00 Atenolol (Tenormin) 12.5 mg BID NGT Last administered on 01/07/17 09:36; Admin Dose 12.5 MG; Start 12/30/16 at 21:00 Midodrine 10 mg 10 mg Q8H PRN PO SBP <100 Last administered on 6/30/17at 16:47 ; Admin Dose 10 MG; Start 01/09/17 at 19:30 Vancomycin HCl/ Sodium Chloride (Vancocin/NS) 150 ml @ 75 mls/hr Q24H IVPB Last administered on 01/10/17 13:27; Admin Dose 75 MLS/HR; Start 01/10/17 at 13 :00 Citric Acid/ Sodium Citrate (Bicitra) 30 ml TID PO Last administered on 13:27; Admin Dose 30 ML; Start 01/10/17 at 13:30 ROMI ESPINO Jan 10, 2017 16:56
[2017-01-10] MEDS: FAMOTIDINE 20 MG TAB PO SCH (22:34)
[2017-01-11] VITALS (12 sets, daily range): BP systolic 82–112; BP diastolic 46–68; PULSE 74–104; RESP 16–20
--- NOTE | 2017-01-11 01:35 | PN ---
Date/Time of Note Date/Time of Note DATE: 01/09/17 TIME: 18:27 Assessment/Plan VTE Prophylaxis VTE Prophylaxis Intervention: other Lines/Catheters [facility]AC[facility] Urinary Cath still in place: No Assessment/Plan Assessment/Plan Patient was increased creatinine and hyperkalemia today, status post Kayexalate , denies any nausea vomiting. ASSESSMENT AND PLAN: - Sepsis with staph bacteremia, repeat blood cultures negative, continue vancomycin until January 16, Dr. Ba is following an infection disease consultation. Dr. Raymond is following in vascular surgery consultation. - Metabolic acidosis, continue IV fluids with bicarb, Dr. Spain is following in nephrology consultation. - Intractable nausea and vomiting, resolved. Dr. Mendez is following in gastroenterology consultation. - Acute kidney injury. Dr. Spain is following in nephrology consultation. Continue IV fluids monitor electrolytes. - Hirschsprung disease. - Ileostomy. Further recommendations based on clinical course. Plan of care discussed with Dr. Paez. Subjective 24 Hr Interval Summary Free Text/Dictation afebrile, plan for discharge home with home health for vanco infusion. Patient denies any new issues, dw staff Constitutional: improved Respiratory: no complaints Cardiovascular: no complaints Gastrointestinal: no complaints Genitourinary: no complaints Musculoskeletal: no complaints Exam/Review of Systems Vital Signs Vitals Vital Signs Date Time Temp Pulse Resp B/P Pulse Ox O2 Delivery O2 Flow Rate FiO2 01/09/17 16:42 110 01/09/17 16:27 98.0 20 99/56 100 Intake and Output 01/08/17 01/08/17 01/09/17 15:00 23:00 07:00 Intake Total 1200 ml 500 ml Output Total 2800 ml 3800 ml Balance -1600 ml -3300 ml Exam Constitutional: alert, oriented Respiratory: clear to auscultation, normal air movement Cardiovascular: nl pulses, other (tachycardia), regular rate and rhythm Gastrointestinal: non-tender, soft Musculoskeletal: nl extremities to inspection Extremities: normal pulses 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: nl mental status, nl speech Results Result Diagram: 01/09/17 0603 01/09/17 0603 Results 24 hrs Laboratory Tests Test 01/09/17 06:03 White Blood Count 8.4 # Red Blood Count 3.56 L Hemoglobin 11.1 L Hematocrit 32.3 L Mean Corpuscular Volume 90.7 Mean Corpuscular Hemoglobin 31.2 Mean Corpuscular Hemoglobin Concent 34.4 Red Cell Distribution Width 12.6 Platelet Count 593 H Mean Platelet Volume 9.5 Neutrophils % 71.7 Lymphocytes % 10.4 L Monocytes % 6.0 Eosinophils % 9.6 H Basophils % 0.6 Nucleated Red Blood Cells % 0.0 Neutrophils # 6.0 Lymphocytes # 0.9 Monocytes # 0.5 Eosinophils # 0.8 H Basophils # 0.1 Nucleated Red Blood Cells # 0.0 Sodium Level 137 Potassium Level 4.0 Chloride Level 100 Carbon Dioxide Level 19 L Anion Gap 22 H Blood Urea Nitrogen 54 H Creatinine 1.56 H Glucose Level 177 Calcium Level 10.5 H Random Vancomycin Level 18.7 Medications Medications Current Medications Ondansetron HCl (Zofran Inj) 4 mg Q6H PRN IV NAUSEA AND/OR VOMITING Last administered on 12/30/16 23:14; Admin Dose 4 MG; Start 12/17/16 at 13:00 Morphine Sulfate (morphine) 1 mg Q4H PRN IV PAIN LEVEL 7-10; Start 12/17/16 at 13:00 Pantoprazole (Protonix Tab) 40 mg DAILY@06 PO Last administered on 01/09/17 06 :15; Admin Dose 40 MG; Start 12/18/16 at 06:00 Acetaminophen (Tylenol Tab) 500 mg Q4H PRN PO PAIN AND OR ELEVATED TEMP Last administered on 01/03/17 22:10; Admin Dose 500 MG; Start 12/17/16 at 22:30 Albuterol (Ventolin Hfa) 2 puff Q4H PRN INH WHEEZING AND SOB; Start 12/17/16 at 22:30 Folic Acid (Folic Acid) 1 mg DAILY PO Last administered on 01/09/17 09:45; Admin Dose 1 MG; Start 12/18/16 at 09:00 Hydroxyzine Pamoate (Vistaril) 25 mg QHS PRN PO ITCHING Last administered on 23:50; Admin Dose 25 MG; Start 12/17/16 at 22:30 Magnesium Chloride (Mag 64) 64 mg BID PO Last administered on 01/09/17 09:45; Admin Dose 64 MG; Start 12/17/16 at 23:30 Famotidine (Pepcid) 20 mg Q24H PO Last administered on 01/08/17 23:46; Admin Dose 20 MG; Start 12/17/16 at 22:30 Mupirocin (Bactroban) 1 applic BID TOP Last administered on 01/09/17 09:45; Admin Dose 1 APPLIC; Start 12/19/16 at 21:00 Simethicone (Mylicon) 80 mg BID PRN PO DISTENSION/GAS/BLOATING Last administered on 01/01/17 08:44; Admin Dose 80 MG; Start 12/22/16 at 14:00 Metoprolol Tartrate (Lopressor) 5 mg Q4H PRN IV HR>110 Hold SBP<100; Start at 18:00 Midodrine (Proamatine) 5 mg Q8 PRN PO SBP <100 Last administered on 01/07/17 07:41; Admin Dose 5 MG; Start 12/30/16 at 22:00 Atenolol (Tenormin) 12.5 mg BID NGT Last administered on 01/07/17 09:36; Admin Dose 12.5 MG; Start 12/30/16 at 21:00 Midodrine (Proamatine) 5 mg Q8H PRN PO FOR SBP BELOW 100 Last administered on 12:23; Admin Dose 5 MG; Start 01/08/17 at 09:00 Citric Acid/ Sodium Citrate 30 ml 30 ml TID PO Last administered on 01/09/17 12:56; Admin Dose 30 ML; Start 01/08/17 at 18:00 Vancomycin HCl 100 ml @ 100 mls/hr Q24H IVPB Last administered on 01/09/17 12 :56; Admin Dose 100 MLS/HR; Start 01/09/17 at 13:00 Sodium Chloride (NS) 1,000 ml @ 80 mls/hr [id number] IV Last administered on 01/09 12:56; Admin Dose 80 MLS/HR; Start 01/09/17 at 11:30; Stop 01/09/17 at 23: 59 DEVENDRA GOMES Jan 09, 2017 18:37
[2017-01-11] MEDS: PANTOPRAZOLE (EC) 40 MG TAB PO SCH (06:10)
[2017-01-11 07:39] LABS: BASOPHILS % 0.7 % (0.0-2.0); EOSINOPHILS # 0.6 10^3/ul (0.0-0.5); EOSINOPHILS % 10.5 % (0.0-7.0); HEMATOCRIT 27.5 % (37.0-47.0); HEMOGLOBIN 9.3 g/dl (12.0-16.0); LYMPHOCYTES # 0.7 10^3/ul (0.8-2.9); LYMPHOCYTES % 13.3 % (15.0-51.0); MEAN CORPUSCULAR HEMOGLOBIN 30.6 pg (29.0-33.0); MEAN CORPUSCULAR HGB CONC 33.8 g/dl (32.0-37.0); MEAN CORPUSCULAR VOLUME 90.5 fl (82.0-101.0); MEAN PLATELET VOLUME 9.4 fl (7.4-10.4); MONOCYTE # 0.5 10^3/ul (0.3-0.9); MONOCYTES % 9.2 % (0.0-11.0); NEUTROPHIL # 3.5 10^3/ul (1.6-7.5); NEUTROPHILS % 65.6 % (39.0-77.0); PLATELET COUNT 540 10^3/UL (140-415); RED BLOOD COUNT 3.04 10^6/ul (4.20-5.40); RED CELL DISTRIBUTION WIDTH 12.6 % (11.5-14.5); WHITE BLOOD COUNT 5.4 10^3/ul (4.8-10.8)
[2017-01-11 07:56] LABS: INR 0.9; PROTIME 12.1 Sec (12.2-14.2); PT RATIO 0.9
[2017-01-11 07:57] LABS: PARTIAL THROMBOPLASTIN TIME 28.4 Sec (25.0-35.0)
[2017-01-11] MEDS: FOLIC ACID 1 MG TAB PO SCH (08:39)
[2017-01-11] MEDS: CITRIC ACID/NA CITRATE 30 ML CUP PO SCH ×3 (08:39→20:58)
[2017-01-11] MEDS: MAGNESIUM CHLORIDE (SR) 64 MG TAB PO SCH ×2 (08:39→20:58)
[2017-01-11] MEDS: ATENOLOL 25 MG TAB NGT SCH ×2 (08:40→20:04)
[2017-01-11] MEDS: MUPIROCIN 2% 22 GM OINT TOP SCH ×2 (08:40→20:59)
[2017-01-11 10:12] LABS: CALCIUM 10.2 mg/dl (8.4-10.2); CREATININE 1.18 mg/dl (0.44-1.00)
[2017-01-11] MEDS: VANCOMYCIN 750 MG in SOD CHLORIDE 0.9% 150 ML IVPB SCH (13:45)
--- NOTE | 2017-01-11 14:13 | CONS ---
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-) - low-level nonspecific increase in tracer uptake within the mediastinum on WBC tagged scan 12/31/2016 recommendations: - IV vancomycin (12/27/2016-) x2 weeks from the first negative blood culture result, i.e. 01/02/2017-01/16/2017 - check CBC and BMP at least once weekly while Pt's on antibiotic Problems: Consultation Date/Type/Reason Admit Date/Time Dec 17, 2016 at 08:55 Type of Consultation: id Referring Provider: CARLOS RODRIGUEZ MD Exam/Review of Systems Vital Signs Vitals Vital Signs Date Time Temp Pulse Resp B/P Pulse Ox O2 Delivery O2 Flow Rate FiO2 01/11/17 12:11 95 01/11/17 11:50 98.0 18 98/54 99 Intake and Output 01/10/17 01/10/17 01/11/17 15:00 23:00 07:00 Intake Total 650 ml Output Total 400 ml 500 ml Balance -400 ml 150 ml Exam Constitutional: alert, oriented, well developed Psych: nl mood/affect, no complaints Head: atraumatic, normocephalic Eyes: EOMI, PERRL, nl conjunctiva, nl lids, nl sclera ENMT: nl external ears & nose, nl lips & teeth, nl nasal mucosa & septum Respiratory: clear to auscultation, normal air movement Cardiovascular: nl pulses, regular rate and rhythm Gastrointestinal: nl liver, spleen, non-tender, soft 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: 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 MILL OPERATOR II-XII 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, nl mental status, nl speech, nl strength Results Result Diagram: 01/11/17 0654 01/11/17 0654 Results 24 hrs Laboratory Tests Test 01/11/17 06:54 White Blood Count 5.4 # Red Blood Count 3.04 L Hemoglobin 9.3 L Hematocrit 27.5 L Mean Corpuscular Volume 90.5 Mean Corpuscular Hemoglobin 30.6 Mean Corpuscular Hemoglobin Concent 33.8 Red Cell Distribution Width 12.6 Platelet Count 540 H Mean Platelet Volume 9.4 Neutrophils % 65.6 Lymphocytes % 13.3 L Monocytes % 9.2 Eosinophils % 10.5 H Basophils % 0.7 Nucleated Red Blood Cells % 0.0 Neutrophils # 3.5 Lymphocytes # 0.7 L Monocytes # 0.5 Eosinophils # 0.6 H Basophils # 0.0 Nucleated Red Blood Cells # 0.0 Prothrombin Time 12.1 L Prothrombin Time Ratio 0.9 INR International Normalized Ratio 0.90 Activated Partial Thromboplast Time 28.4 Sodium Level 135 Potassium Level 4.0 Chloride Level 95 L Carbon Dioxide Level 29 Anion Gap 15 Blood Urea Nitrogen 34 H Creatinine 1.18 H Glucose Level 94 Calcium Level 10.2 Medications Medications Current Medications Ondansetron HCl (Zofran Inj) 4 mg Q6H PRN IV NAUSEA AND/OR VOMITING Last administered on 12/30/16 23:14; Admin Dose 4 MG; Start 12/17/16 at 13:00 Morphine Sulfate (morphine) 1 mg Q4H PRN IV PAIN LEVEL 7-10; Start 12/17/16 at 13:00 Pantoprazole (Protonix Tab) 40 mg DAILY@06 PO Last administered on 01/11/17 06: 10; Admin Dose 40 MG; Start 12/18/16 at 06:00 Acetaminophen (Tylenol Tab) 500 mg Q4H PRN PO PAIN AND OR ELEVATED TEMP Last administered on 01/03/17 22:10; Admin Dose 500 MG; Start 12/17/16 at 22:30 Albuterol (Ventolin Hfa) 2 puff Q4H PRN INH WHEEZING AND SOB; Start 12/17/16 at 22:30 Folic Acid (Folic Acid) 1 mg DAILY PO Last administered on 01/11/17 08:39; Admin Dose 1 MG; Start 12/18/16 at 09:00 Hydroxyzine Pamoate (Vistaril) 25 mg QHS PRN PO ITCHING Last administered on 22:34; Admin Dose 25 MG; Start 12/17/16 at 22:30 Magnesium Chloride (Mag 64) 64 mg BID PO Last administered on 01/11/17 08:39; Admin Dose 64 MG; Start 12/17/16 at 23:30 Famotidine (Pepcid) 20 mg Q24H PO Last administered on 01/10/17 22:34; Admin Dose 20 MG; Start 12/17/16 at 22:30 Mupirocin (Bactroban) 1 applic BID TOP Last administered on 01/11/17 08:40; Admin Dose 1 APPLIC; Start 12/19/16 at 21:00 Simethicone (Mylicon) 80 mg BID PRN PO DISTENSION/GAS/BLOATING Last administered on 01/01/17 08:44; Admin Dose 80 MG; Start 12/22/16 at 14:00 Metoprolol Tartrate (Lopressor) 5 mg Q4H PRN IV HR>110 Hold SBP<100; Start at 18:00 Atenolol (Tenormin) 12.5 mg BID NGT Last administered on 01/07/17 09:36; Admin Dose 12.5 MG; Start 12/30/16 at 21:00 Midodrine 10 mg 10 mg Q8H PRN PO SBP <100 Last administered on 01/10/17 16:47 ; Admin Dose 10 MG; Start 01/09/17 at 19:30 Vancomycin HCl/ Sodium Chloride (Vancocin/NS) 150 ml @ 75 mls/hr Q24H IVPB Last administered on 01/11/17 13:45; Admin Dose 75 MLS/HR; Start 01/10/17 at 13: 00 Citric Acid/ Sodium Citrate (Bicitra) 30 ml TID PO Last administered on 13:46; Admin Dose 30 ML; Start 01/10/17 at 13:30 Miscellaneous Information (*Rx Drug Level Order Reminder*) VANCOMYCIN TROUGH 01/12 AT 1200 ONCE ONCE XX ; Start 01/12/17 at 12:00; Stop 01/12/17 at 12:01 LISS MALDONADO MD Jan 11, 2017 14:13
--- NOTE | 2017-01-11 16:57 | CONS ---
Date/Time of Note Date/Time of Note DATE: 01/11/17 TIME: 16:56 Assessment/Plan Assessment/Plan Additional Assessment/Plan 1. Tachyarrhythmia at this time, most consistent with sinus tachycardia.- overall improved initially after IVF/midodrine BP support/digoxin/NL TSH/FT4. NL EF by echo. Having some mild recurrent tachycardia -HR better now, Rx in progress. BETTER overall. 2. Hypotension, borderline and labile.-on midodrine - no symptoms. STABLE - will monitor for now. 3. Abnormal electrocardiogram with nonspecific ST-T abnormalities, assess for acute coronary syndrome.NL EF by echo this admit/negative trop 4. History of Hirschsprung disease- GI follows. 5. Possible anxiety. 6. Acidosis- better now. 7. Renal failure- improving - OK to hydrate as needed. . 8. Status post ileostomy. 9.Bacteremia-by blood cultures Consultation Date/Type/Reason Admit Date/Time Dec 17, 2016 at 08:55 Type of Consultation: id Referring Provider: CARLOS RODRIGUEZ MD 24 HR Interval Summary Free Text/Dictation No acute events - stable overall. ROS: No fever, no chills, no nausea, no vomiting, no diarrhea/constipation No recent weight changes No chest pain, no PND, no orthopnea No dizziness, blurred vision No thirst, no heat or cold intolerance Exam/Review of Systems Vital Signs Vitals Vital Signs Date Time Temp Pulse Resp B/P Pulse Ox O2 Delivery O2 Flow Rate FiO2 01/11/17 16:16 101 01/11/17 11:50 98.0 18 98/54 99 Intake and Output 01/10/17 01/10/17 01/11/17 15:00 23:00 07:00 Intake Total 650 ml Output Total 400 ml 500 ml Balance -400 ml 150 ml Exam General: WN/WD/NAD, AOx 3 HEENT: Unicetric/atraumatic/EOMI (follow commands) NECK: JVD elevated, no thyromegaly Lymph: no lymphadenopathy HEART: regular with no S3, II/ systolic murmur at apex LUNGS: Coarse sounds ABD: soft, NT, ND, +BS : Intact Neuro: non focal SKIN: chronic changes EXT: trace edema Results Result Diagram: 01/11/1754 01/11/17 0654 Results 24 hrs Laboratory Tests Test 01/11/17 06:54 White Blood Count 5.4 # Red Blood Count 3.04 L Hemoglobin 9.3 L Hematocrit 27.5 L Mean Corpuscular Volume 90.5 Mean Corpuscular Hemoglobin 30.6 Mean Corpuscular Hemoglobin Concent 33.8 Red Cell Distribution Width 12.6 Platelet Count 540 H Mean Platelet Volume 9.4 Neutrophils % 65.6 Lymphocytes % 13.3 L Monocytes % 9.2 Eosinophils % 10.5 H Basophils % 0.7 Nucleated Red Blood Cells % 0.0 Neutrophils # 3.5 Lymphocytes # 0.7 L Monocytes # 0.5 Eosinophils # 0.6 H Basophils # 0.0 Nucleated Red Blood Cells # 0.0 Prothrombin Time 12.1 L Prothrombin Time Ratio 0.9 INR International Normalized Ratio 0.90 Activated Partial Thromboplast Time 28.4 Sodium Level 135 Potassium Level 4.0 Chloride Level 95 L Carbon Dioxide Level 29 Anion Gap 15 Blood Urea Nitrogen 34 H Creatinine 1.18 H Glucose Level 94 Calcium Level 10.2 Medications Medications Current Medications Ondansetron HCl (Zofran Inj) 4 mg Q6H PRN IV NAUSEA AND/OR VOMITING Last administered on 12/30/16 23:14; Admin Dose 4 MG; Start 12/17/16 at 13:00 Morphine Sulfate (morphine) 1 mg Q4H PRN IV PAIN LEVEL 7-10; Start 12/17/16 at 13:00 Pantoprazole (Protonix Tab) 40 mg DAILY@06 PO Last administered on 01/11/17 06: 10; Admin Dose 40 MG; Start 12/18/16 at 06:00 Acetaminophen (Tylenol Tab) 500 mg Q4H PRN PO PAIN AND OR ELEVATED TEMP Last administered on 01/03/17 22:10; Admin Dose 500 MG; Start 12/17/16 at 22:30 Albuterol (Ventolin Hfa) 2 puff Q4H PRN INH WHEEZING AND SOB; Start 12/17/16 at 22:30 Folic Acid (Folic Acid) 1 mg DAILY PO Last administered on 01/11/17 08:39; Admin Dose 1 MG; Start 12/18/16 at 09:00 Hydroxyzine Pamoate (Vistaril) 25 mg QHS PRN PO ITCHING Last administered on 22:34; Admin Dose 25 MG; Start 12/17/16 at 22:30 Magnesium Chloride (Mag 64) 64 mg BID PO Last administered on 01/11/17 08:39; Admin Dose 64 MG; Start 12/17/16 at 23:30 Famotidine (Pepcid) 20 mg Q24H PO Last administered on 01/10/17 22:34; Admin Dose 20 MG; Start 12/17/16 at 22:30 Mupirocin (Bactroban) 1 applic BID TOP Last administered on 01/11/17 08:40; Admin Dose 1 APPLIC; Start 12/19/16 at 21:00 Simethicone (Mylicon) 80 mg BID PRN PO DISTENSION/GAS/BLOATING Last administered on 01/01/17 08:44; Admin Dose 80 MG; Start 12/22/16 at 14:00 Metoprolol Tartrate (Lopressor) 5 mg Q4H PRN IV HR>110 Hold SBP<100; Start at 18:00 Atenolol (Tenormin) 12.5 mg BID NGT Last administered on 01/07/17 09:36; Admin Dose 12.5 MG; Start 12/30/16 at 21:00 Midodrine 10 mg 10 mg Q8H PRN PO SBP <100 Last administered on 01/10/17 16:47 ; Admin Dose 10 MG; Start 01/09/17 at 19:30 Vancomycin HCl/ Sodium Chloride (Vancocin/NS) 150 ml @ 75 mls/hr Q24H IVPB Last administered on 01/11/17 13:45; Admin Dose 75 MLS/HR; Start 01/10/17 at 13: 00 Citric Acid/ Sodium Citrate (Bicitra) 30 ml TID PO Last administered on 13:46; Admin Dose 30 ML; Start 01/10/17 at 13:30 Miscellaneous Information (*Rx Drug Level Order Reminder*) VANCOMYCIN TROUGH 01/12 AT 1200 ONCE ONCE XX ; Start 01/12/17 at 12:00; Stop 01/12/17 at 12:01 IRENE MADERA MD Jan 11, 2017 16:57
[2017-01-11] MEDS: MIDODRINE 5 MG TAB PO PRN (20:58)
--- NOTE | 2017-01-11 22:30 | CONS ---
Date/Time of Note Date/Time of Note DATE: 01/11/17 TIME: 22:28 Assessment/Plan Assessment/Plan Additional Assessment/Plan 1. Acute kidney injury secondary to severe prerenal azotemia secondary to nausea, vomiting and decreased p.o. intake. 2. Hyponatremia with a sodium of 128 secondary to hypovolemic hyponatremia. 4. Hyperkalemia secondary to worsening acute kidney injury and renal failure.- inow improved 5. Metabolic acidosis with bicarbonate of 16 secondary to increased ileostomy output.- now becomes severe with PH low on ABG - s/p HCO3 drip PLAN: Cr 1.18- other electrolytes stable continue bicitra 30ml PO TID will follow up Consultation Date/Type/Reason Admit Date/Time Dec 17, 2016 at 08:55 Initial Consult Date Dec Type of Consultation: NEPHROLOGY Referring Provider: CARLOS RODRIGUEZ MD 24 HR Interval Summary Free Text/Dictation no acute events, BP stable, Cr 1.18, other electrolytes stable Exam/Review of Systems Vital Signs Vitals Vital Signs Date Time Temp Pulse Resp B/P Pulse Ox O2 Delivery O2 Flow Rate FiO2 01/11/17 20:29 104 01/11/17 19:40 98.7 17 82/49 100 Intake and Output 01/10/17 01/10/17 01/11/17 15:00 23:00 07:00 Intake Total 650 ml Output Total 400 ml 500 ml Balance -400 ml 150 ml Exam Constitutional: alert, oriented Head: normocephalic Neck: supple Respiratory: normal air movement Cardiovascular: nl pulses Gastrointestinal: non-tender, other (Ileostomy), soft Musculoskeletal: nl gait and stance Extremities: normal pulses 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: 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-XII 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 Results Result Diagram: 01/11/17 0654 01/11/17 0654 Results 24 hrs Laboratory Tests Test 01/11/17 06:54 White Blood Count 5.4 # Red Blood Count 3.04 L Hemoglobin 9.3 L Hematocrit 27.5 L Mean Corpuscular Volume 90.5 Mean Corpuscular Hemoglobin 30.6 Mean Corpuscular Hemoglobin Concent 33.8 Red Cell Distribution Width 12.6 Platelet Count 540 H Mean Platelet Volume 9.4 Neutrophils % 65.6 Lymphocytes % 13.3 L Monocytes % 9.2 Eosinophils % 10.5 H Basophils % 0.7 Nucleated Red Blood Cells % 0.0 Neutrophils # 3.5 Lymphocytes # 0.7 L Monocytes # 0.5 Eosinophils # 0.6 H Basophils # 0.0 Nucleated Red Blood Cells # 0.0 Prothrombin Time 12.1 L Prothrombin Time Ratio 0.9 INR International Normalized Ratio 0.90 Activated Partial Thromboplast Time 28.4 Sodium Level 135 Potassium Level 4.0 Chloride Level 95 L Carbon Dioxide Level 29 Anion Gap 15 Blood Urea Nitrogen 34 H Creatinine 1.18 H Glucose Level 94 Calcium Level 10.2 Medications Medications Current Medications Ondansetron HCl (Zofran Inj) 4 mg Q6H PRN IV NAUSEA AND/OR VOMITING Last administered on 12/30/16 23:14; Admin Dose 4 MG; Start 12/17/16 at 13:00 Morphine Sulfate (morphine) 1 mg Q4H PRN IV PAIN LEVEL 7-10; Start 12/17/16 at 13:00 Pantoprazole (Protonix Tab) 40 mg DAILY@06 PO Last administered on 01/11/17 06: 10; Admin Dose 40 MG; Start 12/18/16 at 06:00 Acetaminophen (Tylenol Tab) 500 mg Q4H PRN PO PAIN AND OR ELEVATED TEMP Last administered on 01/03/17 22:10; Admin Dose 500 MG; Start 12/17/16 at 22:30 Albuterol (Ventolin Hfa) 2 puff Q4H PRN INH WHEEZING AND SOB; Start 12/17/16 at 22:30 Folic Acid (Folic Acid) 1 mg DAILY PO Last administered on 01/11/17 08:39; Admin Dose 1 MG; Start 12/18/16 at 09:00 Hydroxyzine Pamoate (Vistaril) 25 mg QHS PRN PO ITCHING Last administered on 22:34; Admin Dose 25 MG; Start 12/17/16 at 22:30 Magnesium Chloride (Mag 64) 64 mg BID PO Last administered on 01/11/17 20:58; Admin Dose 64 MG; Start 12/17/16 at 23:30 Famotidine (Pepcid) 20 mg Q24H PO Last administered on 01/10/17 22:34; Admin Dose 20 MG; Start 12/17/16 at 22:30 Mupirocin (Bactroban) 1 applic BID TOP Last administered on 01/11/17 20:59; Admin Dose 1 APPLIC; Start 12/19/16 at 21:00 Simethicone (Mylicon) 80 mg BID PRN PO DISTENSION/GAS/BLOATING Last administered on 01/01/17 08:44; Admin Dose 80 MG; Start 12/22/16 at 14:00 Metoprolol Tartrate (Lopressor) 5 mg Q4H PRN IV HR>110 Hold SBP<100; Start at 18:00 Atenolol (Tenormin) 12.5 mg BID NGT Last administered on 01/07/17 09:36; Admin Dose 12.5 MG; Start 12/30/16 at 21:00 Midodrine 10 mg 10 mg Q8H PRN PO SBP <100 Last administered on 01/11/17 20:58; Admin Dose 10 MG; Start 01/09/17 at 19:30 Vancomycin HCl/ Sodium Chloride (Vancocin/NS) 150 ml @ 75 mls/hr Q24H IVPB Last administered on 01/11/17 13:45; Admin Dose 75 MLS/HR; Start 01/10/17 at 13: 00 Citric Acid/ Sodium Citrate (Bicitra) 30 ml TID PO Last administered on 20:58; Admin Dose 30 ML; Start 01/10/17 at 13:30 Miscellaneous Information (*Rx Drug Level Order Reminder*) VANCOMYCIN TROUGH 01/12 AT 1200 ONCE ONCE XX ; Start 01/12/17 at 12:00; Stop 01/12/17 at 12:01 ROHAN VELÁZQUEZ MD Jan 11, 2017 22:30
[2017-01-11] MEDS: FAMOTIDINE 20 MG TAB PO SCH (23:15)
[2017-01-11] MEDS: hydrOXYzine PAMOATE 25 MG CAP PO PRN (23:15)
[2017-01-12] VITALS (11 sets, daily range): BP systolic 84–106; BP diastolic 51–59; PULSE 80–99; RESP 18–20
[2017-01-12] MEDS: PANTOPRAZOLE (EC) 40 MG TAB PO SCH (06:05)
[2017-01-12] MEDS: MIDODRINE 5 MG TAB PO PRN ×3 (06:07→18:10)
[2017-01-12] MEDS: ATENOLOL 25 MG TAB NGT SCH ×2 (08:57→20:09)
[2017-01-12] MEDS: MUPIROCIN 2% 22 GM OINT TOP SCH ×2 (08:58→20:11)
[2017-01-12] MEDS: CITRIC ACID/NA CITRATE 30 ML CUP PO SCH ×3 (08:58→20:10)
[2017-01-12] MEDS: MAGNESIUM CHLORIDE (SR) 64 MG TAB PO SCH ×2 (08:58→20:10)
[2017-01-12] MEDS: FOLIC ACID 1 MG TAB PO SCH (08:59)
--- NOTE | 2017-01-12 12:18 | CONS ---
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-) - low-level nonspecific increase in tracer uptake within the mediastinum on WBC tagged scan 12/31/2016 recommendations: - IV vancomycin (12/27/2016-) x2 weeks from the first negative blood culture result, i.e. 01/02/2017-01/16/2017 - check CBC and BMP at least once weekly while Pt's on antibiotic Problems: Consultation Date/Type/Reason Admit Date/Time Dec 17, 2016 at 08:55 Type of Consultation: id Referring Provider: CARLOS RODRIGUEZ MD Exam/Review of Systems Vital Signs Vitals Vital Signs Date Time Temp Pulse Resp B/P Pulse Ox O2 Delivery O2 Flow Rate FiO2 01/12/17 08:07 98.5 81 20 87/51 100 01/12/17 06:00 Room Air Intake and Output 01/11/17 01/11/17 01/12/17 15:00 23:00 07:00 Intake Total 750 ml Balance 750 ml Results Result Diagram: 01/11/17 0654 01/11/17 0654 Medications Medications Current Medications Ondansetron HCl (Zofran Inj) 4 mg Q6H PRN IV NAUSEA AND/OR VOMITING Last administered on 12/30/16t 23:14; Admin Dose 4 MG; Start 12/17/16 at 13:00 Morphine Sulfate (morphine) 1 mg Q4H PRN IV PAIN LEVEL 7-10; Start 12/17/16 at 13:00 Pantoprazole (Protonix Tab) 40 mg DAILY@06 PO Last administered on 01/12/17 06: 05; Admin Dose 40 MG; Start 12/18/16 at 06:00 Acetaminophen (Tylenol Tab) 500 mg Q4H PRN PO PAIN AND OR ELEVATED TEMP Last administered on 01/03/17 22:10; Admin Dose 500 MG; Start 12/17/16 at 22:30 Albuterol (Ventolin Hfa) 2 puff Q4H PRN INH WHEEZING AND SOB; Start 12/17/16 at 22:30 Folic Acid (Folic Acid) 1 mg DAILY PO Last administered on 01/12/17 08:59; Admin Dose 1 MG; Start 12/18/16 at 09:00 Hydroxyzine Pamoate (Vistaril) 25 mg QHS PRN PO ITCHING Last administered on 23:15; Admin Dose 25 MG; Start 12/17/16 at 22:30 Magnesium Chloride (Mag 64) 64 mg BID PO Last administered on 01/12/17 08:58; Admin Dose 64 MG; Start 12/17/16 at 23:30 Famotidine (Pepcid) 20 mg Q24H PO Last administered on 01/11/17 23:15; Admin Dose 20 MG; Start 12/17/16 at 22:30 Mupirocin (Bactroban) 1 applic BID TOP Last administered on 01/12/17 08:58; Admin Dose 1 APPLIC; Start 12/19/16 at 21:00 Simethicone (Mylicon) 80 mg BID PRN PO DISTENSION/GAS/BLOATING Last administered on 01/01/17 08:44; Admin Dose 80 MG; Start 12/22/16 at 14:00 Metoprolol Tartrate (Lopressor) 5 mg Q4H PRN IV HR>110 Hold SBP<100; Start at 18:00 Atenolol (Tenormin) 12.5 mg BID NGT Last administered on 01/07/17 09:36; Admin Dose 12.5 MG; Start 12/30/16 at 21:00 Midodrine 10 mg 10 mg Q8H PRN PO SBP <100 Last administered on 01/12/17 08:59; Admin Dose 10 MG; Start 01/09/17 at 19:30 Vancomycin HCl/ Sodium Chloride (Vancocin/NS) 150 ml @ 75 mls/hr Q24H IVPB Last administered on 01/11/17 13:45; Admin Dose 75 MLS/HR; Start 01/10/17 at 13: 00 Citric Acid/ Sodium Citrate (Bicitra) 30 ml TID PO Last administered on 08:58; Admin Dose 30 ML; Start 01/10/17 at 13:30 LISS MALDONADO MD Jan 12, 2017 12:18
[2017-01-12] MEDS: VANCOMYCIN 750 MG in SOD CHLORIDE 0.9% 150 ML IVPB SCH (13:21)
--- NOTE | 2017-01-12 14:27 | CONS ---
Date/Time of Note Date/Time of Note DATE: 01/12/17 TIME: 14:26 Assessment/Plan Assessment/Plan Additional Assessment/Plan 1. Acute kidney injury secondary to severe prerenal azotemia secondary to nausea, vomiting and decreased p.o. intake. 2. Hyponatremia with a sodium of 128 secondary to hypovolemic hyponatremia. 4. Hyperkalemia secondary to worsening acute kidney injury and renal failure.- inow improved 5. Metabolic acidosis with bicarbonate of 16 secondary to increased ileostomy output.- now becomes severe with PH low on ABG - s/p HCO3 drip PLAN: Cr 1.18 yesterday - other electrolytes stable , no labs today continue bicitra 30ml PO TID will follow up Consultation Date/Type/Reason Admit Date/Time Dec 17, 2016 at 08:55 Initial Consult Date Dec Type of Consultation: NEPHROLOGY Referring Provider: CARLOS RODRIGUEZ MD Exam/Review of Systems Vital Signs Vitals Vital Signs Date Time Temp Pulse Resp B/P Pulse Ox O2 Delivery O2 Flow Rate FiO2 01/12/17 12:19 97.7 76 20 97/57 100 01/12/17 06:00 Room Air Intake and Output 01/11/17 01/11/17 01/12/17 15:00 23:00 07:00 Intake Total 750 ml Balance 750 ml Exam Constitutional: alert, oriented Head: normocephalic Neck: supple Respiratory: normal air movement Cardiovascular: nl pulses Gastrointestinal: non-tender, other (Ileostomy), soft Musculoskeletal: nl gait and stance Extremities: normal pulses 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 Results Result Diagram: 01/11/1754 01/11/17 0654 Results 24 hrs Laboratory Tests Test 01/12/17 12:30 Vancomycin Level Trough 13.3 Medications Medications Current Medications Ondansetron HCl (Zofran Inj) 4 mg Q6H PRN IV NAUSEA AND/OR VOMITING Last administered on 12/30/16 23:14; Admin Dose 4 MG; Start 12/17/16 at 13:00 Morphine Sulfate (morphine) 1 mg Q4H PRN IV PAIN LEVEL 7-10; Start 12/17/16 at 13:00 Pantoprazole (Protonix Tab) 40 mg DAILY@06 PO Last administered on 01/12/17 06: 05; Admin Dose 40 MG; Start 12/18/16 at 06:00 Acetaminophen (Tylenol Tab) 500 mg Q4H PRN PO PAIN AND OR ELEVATED TEMP Last administered on 01/03/17 22:10; Admin Dose 500 MG; Start 12/17/16 at 22:30 Albuterol (Ventolin Hfa) 2 puff Q4H PRN INH WHEEZING AND SOB; Start 12/17/16 at 22:30 Folic Acid (Folic Acid) 1 mg DAILY PO Last administered on 01/12/17 08:59; Admin Dose 1 MG; Start 12/18/16 at 09:00 Hydroxyzine Pamoate (Vistaril) 25 mg QHS PRN PO ITCHING Last administered on 23:15; Admin Dose 25 MG; Start 12/17/16 at 22:30 Magnesium Chloride (Mag 64) 64 mg BID PO Last administered on 01/12/17 08:58; Admin Dose 64 MG; Start 12/17/16 at 23:30 Famotidine (Pepcid) 20 mg Q24H PO Last administered on 01/11/17 23:15; Admin Dose 20 MG; Start 12/17/16 at 22:30 Mupirocin (Bactroban) 1 applic BID TOP Last administered on 01/12/17 08:58; Admin Dose 1 APPLIC; Start 12/19/16 at 21:00 Simethicone (Mylicon) 80 mg BID PRN PO DISTENSION/GAS/BLOATING Last administered on 01/01/17 08:44; Admin Dose 80 MG; Start 12/22/16 at 14:00 Metoprolol Tartrate (Lopressor) 5 mg Q4H PRN IV HR>110 Hold SBP<100; Start at 18:00 Atenolol (Tenormin) 12.5 mg BID NGT Last administered on 01/07/17 09:36; Admin Dose 12.5 MG; Start 12/30/16 at 21:00 Midodrine 10 mg 10 mg Q8H PRN PO SBP <100 Last administered on 01/12/17 08:59; Admin Dose 10 MG; Start 01/09/17 at 19:30 Vancomycin HCl/ Sodium Chloride (Vancocin/NS) 150 ml @ 75 mls/hr Q24H IVPB Last administered on 01/12/17 13:21; Admin Dose 75 MLS/HR; Start 01/10/17 at 13: 00 Citric Acid/ Sodium Citrate (Bicitra) 30 ml TID PO Last administered on 13:11; Admin Dose 30 ML; Start 01/10/17 at 13:30 ROHAN VELÁZQUEZ MD Jan 12, 2017 14:27
--- NOTE | 2017-01-12 15:33 | CONS ---
Date/Time of Note Date/Time of Note DATE: 01/12/17 TIME: 15:32 Assessment/Plan Assessment/Plan Additional Assessment/Plan 1. Tachyarrhythmia at this time, most consistent with sinus tachycardia.- overall improved initially after IVF/midodrine BP support/digoxin/NL TSH/FT4. NL EF by echo. Having some mild recurrent tachycardia -HR better now, Rx in progress. BETTER overall. 2. Hypotension, borderline and labile.-on midodrine - no symptoms. STABLE - will monitor for now. NO Sx now 3. Abnormal electrocardiogram with nonspecific ST-T abnormalities, assess for acute coronary syndrome.NL EF by echo this admit/negative trop 4. History of Hirschsprung disease- GI follows. 5. Possible anxiety. 6. Acidosis- better now. 7. Renal failure- improving - OK to hydrate as needed. . 8. Status post ileostomy. 9.Bacteremia-by blood cultures Consultation Date/Type/Reason Admit Date/Time Dec 17, 2016 at 08:55 Type of Consultation: NEPHROLOGY Referring Provider: CARLOS RODRIGUEZ MD 24 HR Interval Summary Free Text/Dictation NO acute change - BP low, but no sx - med rx now ROS: No fever, no chills, no nausea, no vomiting, no diarrhea/constipation No recent weight changes No chest pain, no PND, no orthopnea No dizziness, blurred vision No thirst, no heat or cold intolerance Exam/Review of Systems Vital Signs Vitals Vital Signs Date Time Temp Pulse Resp B/P Pulse Ox O2 Delivery O2 Flow Rate FiO2 01/12/17 12:19 97.7 76 20 97/57 100 01/12/17 06:00 Room Air Intake and Output 01/11/17 01/11/17 01/12/17 15:00 23:00 07:00 Intake Total 750 ml Balance 750 ml Exam General: WN/WD/NAD, AOx 3 HEENT: Unicetric/atraumatic/EOMI NECK: JVD elevated, no thyromegaly Lymph: no lymphadenopathy HEART: regular with no S3, II/ systolic murmur at apex LUNGS: Coarse sounds ABD: soft, NT, ND, +BS : Intact Neuro: non focal SKIN: chronic changes EXT: trace edema Results Result Diagram: 01/11/1765301/11/17653 Results 24 hrs Laboratory Tests Test 01/12/17 12:30 Vancomycin Level Trough 13.3 Medications Medications Current Medications Ondansetron HCl (Zofran Inj) 4 mg Q6H PRN IV NAUSEA AND/OR VOMITING Last administered on 12/30/16 23:14; Admin Dose 4 MG; Start 12/17/16 at 13:00 Morphine Sulfate (morphine) 1 mg Q4H PRN IV PAIN LEVEL 7-10; Start 12/17/16 at 13:00 Pantoprazole (Protonix Tab) 40 mg DAILY@06 PO Last administered on 01/12/17 06: 05; Admin Dose 40 MG; Start 12/18/16 at 06:00 Acetaminophen (Tylenol Tab) 500 mg Q4H PRN PO PAIN AND OR ELEVATED TEMP Last administered on 01/03/17 22:10; Admin Dose 500 MG; Start 12/17/16 at 22:30 Albuterol (Ventolin Hfa) 2 puff Q4H PRN INH WHEEZING AND SOB; Start 12/17/16 at 22:30 Folic Acid (Folic Acid) 1 mg DAILY PO Last administered on 01/12/17 08:59; Admin Dose 1 MG; Start 12/18/16 at 09:00 Hydroxyzine Pamoate (Vistaril) 25 mg QHS PRN PO ITCHING Last administered on 23:15; Admin Dose 25 MG; Start 12/17/16 at 22:30 Magnesium Chloride (Mag 64) 64 mg BID PO Last administered on 01/12/17 08:58; Admin Dose 64 MG; Start 12/17/16 at 23:30 Famotidine (Pepcid) 20 mg Q24H PO Last administered on 01/11/17 23:15; Admin Dose 20 MG; Start 12/17/16 at 22:30 Mupirocin (Bactroban) 1 applic BID TOP Last administered on 01/12/17 08:58; Admin Dose 1 APPLIC; Start 12/19/16 at 21:00 Simethicone (Mylicon) 80 mg BID PRN PO DISTENSION/GAS/BLOATING Last administered on 01/01/17 08:44; Admin Dose 80 MG; Start 12/22/16 at 14:00 Metoprolol Tartrate (Lopressor) 5 mg Q4H PRN IV HR>110 Hold SBP<100; Start at 18:00 Atenolol (Tenormin) 12.5 mg BID NGT Last administered on 01/07/17 09:36; Admin Dose 12.5 MG; Start 12/30/16 at 21:00 Midodrine 10 mg 10 mg Q8H PRN PO SBP <100 Last administered on 01/12/17 08:59; Admin Dose 10 MG; Start 01/09/17 at 19:30 Vancomycin HCl/ Sodium Chloride (Vancocin/NS) 150 ml @ 75 mls/hr Q24H IVPB Last administered on 01/12/17 13:21; Admin Dose 75 MLS/HR; Start 01/10/17 at 13: 00 Citric Acid/ Sodium Citrate (Bicitra) 30 ml TID PO Last administered on 13:11; Admin Dose 30 ML; Start 01/10/17 at 13:30 IRENE MADERA MD Jan 12, 2017 15:33
--- NOTE | 2017-01-12 17:59 | PN ---
Date/Time of Note Date/Time of Note DATE: 01/12/17 TIME: 17:43 Assessment/Plan Lines/Catheters IV [facility] Type [facility]from [facility] port-a-cath Central line still needed: Yes Urinary Cath still in place: No Assessment/Plan Assessment/Plan - Hypotension- On Midodrin, patient is asymptomatic. will hold discharge today , cont to monitor - Sepsis with staph bacteremia, repeat blood cultures negative, continue vancomycin until January 16, Dr. Ba is following an infection disease consultation. Dr. Raymond is following in vascular surgery consultation. - Metabolic acidosis, continue IV fluids with bicarb, Dr. Spain is following in nephrology consultation. - Intractable nausea and vomiting, resolved. Dr. Mendez is following in gastroenterology consultation. - Acute kidney injury. Dr. Spain is following in nephrology consultation. Continue IV fluids monitor electrolytes. - Hirschsprung disease. - Ileostomy. Further recommendations based on clinical course. Plan of care discussed with Dr. Paez/ staff/ patient Subjective 24 Hr Interval Summary Free Text/Dictation Dischrge held dut to BP sbp 87. plan for discharge home with home health for vanco infusion. afebrile, denies any chest pain,Patient denies any new issues, staff ENT: no complaints Respiratory: no complaints Cardiovascular: no complaints Gastrointestinal: no complaints Genitourinary: no complaints Musculoskeletal: no complaints Exam/Review of Systems Vital Signs Vitals Vital Signs Date Time Temp Pulse Resp B/P Pulse Ox O2 Delivery O2 Flow Rate FiO2 01/12/17 16:18 98.0 78 20 84/54 100 01/12/17 06:00 Room Air Intake and Output 01/11/17 01/11/17 01/12/17 15:00 23:00 07:00 Intake Total 750 ml Balance 750 ml Exam Constitutional: alert, oriented Respiratory: clear to auscultation, normal air movement Cardiovascular: nl pulses, other (SR -80'S), regular rate and rhythm Gastrointestinal: non-tender, soft Musculoskeletal: nl extremities to inspection 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: nl mental status, nl speech Results Result Diagram: 01/11/17 0654 01/11/17 0654 Results 24 hrs Laboratory Tests Test 01/12/17 12:30 Vancomycin Level Trough 13.3 Medications Medications Current Medications Ondansetron HCl (Zofran Inj) 4 mg Q6H PRN IV NAUSEA AND/OR VOMITING Last administered on 12/30/16 23:14; Admin Dose 4 MG; Start 12/17/16 at 13:00 Morphine Sulfate (morphine) 1 mg Q4H PRN IV PAIN LEVEL 7-10; Start 12/17/16 at 13:00 Pantoprazole (Protonix Tab) 40 mg DAILY@06 PO Last administered on 01/12/17 06: 05; Admin Dose 40 MG; Start 12/18/16 at 06:00 Acetaminophen (Tylenol Tab) 500 mg Q4H PRN PO PAIN AND OR ELEVATED TEMP Last administered on 01/03/17 22:10; Admin Dose 500 MG; Start 12/17/16 at 22:30 Albuterol (Ventolin Hfa) 2 puff Q4H PRN INH WHEEZING AND SOB; Start 12/17/16 at 22:30 Folic Acid (Folic Acid) 1 mg DAILY PO Last administered on 01/12/17 08:59; Admin Dose 1 MG; Start 12/18/16 at 09:00 Hydroxyzine Pamoate (Vistaril) 25 mg QHS PRN PO ITCHING Last administered on 23:15; Admin Dose 25 MG; Start 12/17/16 at 22:30 Magnesium Chloride (Mag 64) 64 mg BID PO Last administered on 01/12/17 08:58; Admin Dose 64 MG; Start 12/17/16 at 23:30 Famotidine (Pepcid) 20 mg Q24H PO Last administered on 01/11/17 23:15; Admin Dose 20 MG; Start 12/17/16 at 22:30 Mupirocin (Bactroban) 1 applic BID TOP Last administered on 01/12/17 08:58; Admin Dose 1 APPLIC; Start 12/19/16 at 21:00 Simethicone (Mylicon) 80 mg BID PRN PO DISTENSION/GAS/BLOATING Last administered on 01/01/17 08:44; Admin Dose 80 MG; Start 12/22/16 at 14:00 Metoprolol Tartrate (Lopressor) 5 mg Q4H PRN IV HR>110 Hold SBP<100; Start at 18:00 Atenolol (Tenormin) 12.5 mg BID NGT Last administered on 01/07/17 09:36; Admin Dose 12.5 MG; Start 12/30/16 at 21:00 Midodrine 10 mg 10 mg Q8H PRN PO SBP <100 Last administered on 01/12/17 08:59; Admin Dose 10 MG; Start 01/09/17 at 19:30 Vancomycin HCl/ Sodium Chloride (Vancocin/NS) 150 ml @ 75 mls/hr Q24H IVPB Last administered on 01/12/17 13:21; Admin Dose 75 MLS/HR; Start 01/10/17 at 13: 00 Citric Acid/ Sodium Citrate (Bicitra) 30 ml TID PO Last administered on 13:11; Admin Dose 30 ML; Start 01/10/17 at 13:30 DEVENDRA GOMES Jan 12, 2017 17:53
[2017-01-12] MEDS: FAMOTIDINE 20 MG TAB PO SCH (23:03)
[2017-01-12] MEDS: hydrOXYzine PAMOATE 25 MG CAP PO PRN (23:03)
[2017-01-13] VITALS (12 sets, daily range): BP systolic 80–102; BP diastolic 48–59; PULSE 69–95; RESP 18–20
[2017-01-13] MEDS: PANTOPRAZOLE (EC) 40 MG TAB PO SCH (06:17)
[2017-01-13] MEDS: MIDODRINE 5 MG TAB PO PRN (06:17)
[2017-01-13] MEDS: FOLIC ACID 1 MG TAB PO SCH (08:46)
[2017-01-13] MEDS: MAGNESIUM CHLORIDE (SR) 64 MG TAB PO SCH (08:46)
[2017-01-13] MEDS: CITRIC ACID/NA CITRATE 30 ML CUP PO SCH ×3 (08:47→18:48)
[2017-01-13] MEDS: MUPIROCIN 2% 22 GM OINT TOP SCH (08:49)
[2017-01-13] MEDS: ATENOLOL 25 MG TAB NGT SCH (08:53)
[2017-01-13] MEDS ORDERED: PANT40TA4 PO (11:18)
[2017-01-13] MEDS ORDERED: SODI650T PO (11:18)
[2017-01-13] MEDS ORDERED: SLOMAG PO (11:18)
[2017-01-13] MEDS ORDERED: Vancomycin Iv Per Pharmacy XX (11:20)
--- NOTE | 2017-01-13 11:23 | PN ---
Date/Time of Note Date/Time of Note DATE: 01/13/17 TIME: 11:22 Assessment/Plan VTE Prophylaxis VTE Prophylaxis Intervention: SCD's Lines/Catheters IV Catheter Type (from [facility]): PORT-A-CATH Urinary Cath still in place: No Assessment/Plan Chief Complaint/Hosp Course BP is stable patient denies any nausea vomiting, DC planning. ASSESSMENT AND PLAN: - Sepsis with staph bacteremia, repeat blood cultures negative, continue vancomycin until January 16, Dr. Ba is following an infection disease consultation. Dr. Raymond is following in vascular surgery consultation. - Metabolic acidosis, resolved Dr. Spain is following in nephrology consultation. - Intractable nausea and vomiting, resolved. Dr. Mendez is following in gastroenterology consultation. - Acute kidney injury. Dr. Spain is following in nephrology consultation. Continue IV fluids monitor electrolytes. - Hirschsprung disease. - Ileostomy. Further recommendations based on clinical course. Plan of care discussed with Dr. Paez. 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 Additional Comments Right chest Port-A-Cath Results Result Diagram: 01/11/17 0654 01/11/17 0654 Results 24 hrs Laboratory Tests Test 01/12/17 12:30 Vancomycin Level Trough 13.3 Medications Medications Current Medications Ondansetron HCl (Zofran Inj) 4 mg Q6H PRN IV NAUSEA AND/OR VOMITING Last administered on 12/30/16t 23:14; Admin Dose 4 MG; Start 12/17/16 at 13:00 Morphine Sulfate (morphine) 1 mg Q4H PRN IV PAIN LEVEL 7-10; Start 12/17/16 at 13:00 Pantoprazole (Protonix Tab) 40 mg DAILY@06 PO Last administered on 01/13/17 06: 17; Admin Dose 40 MG; Start 12/18/16 at 06:00 Acetaminophen (Tylenol Tab) 500 mg Q4H PRN PO PAIN AND OR ELEVATED TEMP Last administered on 01/03/17 22:10; Admin Dose 500 MG; Start 12/17/16 at 22:30 Albuterol (Ventolin Hfa) 2 puff Q4H PRN INH WHEEZING AND SOB; Start 12/17/16 at 22:30 Folic Acid (Folic Acid) 1 mg DAILY PO Last administered on 01/13/17 08:46; Admin Dose 1 MG; Start 12/18/16 at 09:00 Hydroxyzine Pamoate (Vistaril) 25 mg QHS PRN PO ITCHING Last administered on 23:03; Admin Dose 25 MG; Start 12/17/16 at 22:30 Magnesium Chloride (Mag 64) 64 mg BID PO Last administered on 01/13/17 08:46; Admin Dose 64 MG; Start 12/17/16 at 23:30 Famotidine (Pepcid) 20 mg Q24H PO Last administered on 01/12/17 23:03; Admin Dose 20 MG; Start 12/17/16 at 22:30 Mupirocin (Bactroban) 1 applic BID TOP Last administered on 01/13/17 08:49; Admin Dose 1 APPLIC; Start 12/19/16 at 21:00 Simethicone (Mylicon) 80 mg BID PRN PO DISTENSION/GAS/BLOATING Last administered on 01/01/17 08:44; Admin Dose 80 MG; Start 12/22/16 at 14:00 Metoprolol Tartrate (Lopressor) 5 mg Q4H PRN IV HR>110 Hold SBP<100; Start at 18:00 Atenolol (Tenormin) 12.5 mg BID NGT Last administered on 01/07/17 09:36; Admin Dose 12.5 MG; Start 12/30/16 at 21:00 Midodrine 10 mg 10 mg Q8H PRN PO SBP <100 Last administered on 01/13/17 06:17; Admin Dose 10 MG; Start 01/09/17 at 19:30 Vancomycin HCl/ Sodium Chloride (Vancocin/NS) 150 ml @ 75 mls/hr Q24H IVPB Last administered on 01/12/17 13:21; Admin Dose 75 MLS/HR; Start 01/10/17 at 13: 00 Citric Acid/ Sodium Citrate (Bicitra) 30 ml TID PO Last administered on 08:47; Admin Dose 30 ML; Start 01/10/17 at 13:30 ROMI ESPINO Jan 13, 2017 11:23
--- NOTE | 2017-01-13 11:33 | CONS ---
Date/Time of Note Date/Time of Note DATE: 01/13/17 TIME: 11:31 Assessment/Plan Assessment/Plan Additional Assessment/Plan 1. Tachyarrhythmia at this time, most consistent with sinus tachycardia - overall improved initially after IVF/midodrine BP support/digoxin/NL TSH/FT4. NL EF by echo. Having some mild recurrent tachycardia -HR better now, Rx in progress. BETTER overall. 2. Hypotension, borderline and labile.-on midodrine - no symptoms. STABLE - will monitor for now. NO Sx now 3. Abnormal electrocardiogram with nonspecific ST-T abnormalities, assess for acute coronary syndrome.NL EF by echo this admit/negative trop 4. History of Hirschsprung disease- GI follows. 5. Possible anxiety - improved. 6. Acidosis- better now. 7. Renal failure- improving - OK to hydrate as needed. . 8. Status post ileostomy. 9.Bacteremia-by blood cultures Consultation Date/Type/Reason Admit Date/Time Dec 17, 2016 at 08:55 Type of Consultation: NEPHROLOGY Referring Provider: CARLOS RODRIGUEZ MD 24 HR Interval Summary Free Text/Dictation No acute change - BP low but stable - will monito ROS: No fever, no chills, no nausea, no vomiting, no diarrhea/constipation No recent weight changes No chest pain, no PND, no orthopnea No dizziness, blurred vision No thirst, no heat or cold intolerance Exam/Review of Systems Vital Signs Vitals Vital Signs Date Time Temp Pulse Resp B/P Pulse Ox O2 Delivery O2 Flow Rate FiO2 01/13/17 08:00 69 01/13/17 07:46 98.0 20 102/55 92 01/12/17 06:00 Room Air Intake and Output 01/12/17 01/12/17 01/13/17 15:00 23:00 07:00 Intake Total 1000 ml Output Total 600 ml Balance 400 ml Exam General: WN/WD/NAD, AOx 3 HEENT: Unicetric/atraumatic/EOMI (follow commands) NECK: JVD elevated, no thyromegaly Lymph: no lymphadenopathy HEART: regular with no S3, II/ systolic murmur at apex LUNGS: Coarse sounds ABD: soft, NT, ND, +BS : Intact Neuro: non focal SKIN: chronic changes EXT: trace edema Results Result Diagram: 01/11/1754 01/11/1754 Results 24 hrs Laboratory Tests Test 01/12/17 12:30 Vancomycin Level Trough 13.3 Medications Medications Current Medications Ondansetron HCl (Zofran Inj) 4 mg Q6H PRN IV NAUSEA AND/OR VOMITING Last administered on 12/30/16 23:14; Admin Dose 4 MG; Start 12/17/16 at 13:00 Morphine Sulfate (morphine) 1 mg Q4H PRN IV PAIN LEVEL 7-10; Start 12/17/16 at 13:00 Pantoprazole (Protonix Tab) 40 mg DAILY@06 PO Last administered on 01/13/17 06: 17; Admin Dose 40 MG; Start 12/18/16 at 06:00 Acetaminophen (Tylenol Tab) 500 mg Q4H PRN PO PAIN AND OR ELEVATED TEMP Last administered on 01/03/17 22:10; Admin Dose 500 MG; Start 12/17/16 at 22:30 Albuterol (Ventolin Hfa) 2 puff Q4H PRN INH WHEEZING AND SOB; Start 12/17/16 at 22:30 Folic Acid (Folic Acid) 1 mg DAILY PO Last administered on 01/13/17 08:46; Admin Dose 1 MG; Start 12/18/16 at 09:00 Hydroxyzine Pamoate (Vistaril) 25 mg QHS PRN PO ITCHING Last administered on 23:03; Admin Dose 25 MG; Start 12/17/16 at 22:30 Magnesium Chloride (Mag 64) 64 mg BID PO Last administered on 01/13/17 08:46; Admin Dose 64 MG; Start 12/17/16 at 23:30 Famotidine (Pepcid) 20 mg Q24H PO Last administered on 01/12/17 23:03; Admin Dose 20 MG; Start 12/17/16 at 22:30 Mupirocin (Bactroban) 1 applic BID TOP Last administered on 01/13/17 08:49; Admin Dose 1 APPLIC; Start 12/19/16 at 21:00 Simethicone (Mylicon) 80 mg BID PRN PO DISTENSION/GAS/BLOATING Last administered on 01/01/17 08:44; Admin Dose 80 MG; Start 12/22/16 at 14:00 Metoprolol Tartrate (Lopressor) 5 mg Q4H PRN IV HR>110 Hold SBP<100; Start at 18:00 Atenolol (Tenormin) 12.5 mg BID NGT Last administered on 01/07/17 09:36; Admin Dose 12.5 MG; Start 12/30/16 at 21:00 Midodrine 10 mg 10 mg Q8H PRN PO SBP <100 Last administered on 01/13/17 06:17; Admin Dose 10 MG; Start 01/09/17 at 19:30 Vancomycin HCl/ Sodium Chloride (Vancocin/NS) 150 ml @ 75 mls/hr Q24H IVPB Last administered on 01/12/17 13:21; Admin Dose 75 MLS/HR; Start 01/10/17 at 13: 00 Citric Acid/ Sodium Citrate (Bicitra) 30 ml TID PO Last administered on 08:47; Admin Dose 30 ML; Start 01/10/17 at 13:30 IRENE MADERA MD Jan 13, 2017 11:33
--- NOTE | 2017-01-13 11:54 | CONS ---
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-) - low-level nonspecific increase in tracer uptake within the mediastinum on WBC tagged scan 12/31/2016 recommendations: - IV vancomycin (12/27/2016-) x2 weeks from the first negative blood culture result, i.e. 01/02/2017-01/16/2017 - check CBC and BMP at least once weekly while Pt's on antibiotic Consultation Date/Type/Reason Admit Date/Time Dec 17, 2016 at 08:55 Type of Consultation: NEPHROLOGY Referring Provider: CARLOS RODRIGUEZ MD 24 HR Interval Summary Free Text/Dictation nad. afebrile, leukocytosis resolved. anticipate discharge home today with H/H for completing the Vancomycin from 01/02/2017-01/16/2017 staff Exam/Review of Systems Vital Signs Vitals Vital Signs Date Time Temp Pulse Resp B/P Pulse Ox O2 Delivery O2 Flow Rate FiO2 01/13/17 11:41 98.0 94 20 81/50 97 01/12/17 06:00 Room Air Intake and Output 01/12/17 01/12/17 01/13/17 15:00 23:00 07:00 Intake Total 1000 ml Output Total 600 ml Balance 400 ml Exam Constitutional: alert, oriented, well developed Respiratory: clear to auscultation, normal air movement Cardiovascular: nl pulses, regular rate and rhythm Gastrointestinal: non-tender, soft Extremities: normal pulses 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: nl mental status, nl speech Results Result Diagram: 01/11/17 0654 01/11/17 0654 Results 24 hrs Laboratory Tests Test 01/12/17 12:30 Vancomycin Level Trough 13.3 Medications Medications Current Medications Ondansetron HCl (Zofran Inj) 4 mg Q6H PRN IV NAUSEA AND/OR VOMITING Last administered on 12/30/16 23:14; Admin Dose 4 MG; Start 12/17/16 at 13:00 Morphine Sulfate (morphine) 1 mg Q4H PRN IV PAIN LEVEL 7-10; Start 12/17/16 at 13:00 Pantoprazole (Protonix Tab) 40 mg DAILY@06 PO Last administered on 01/13/17 06: 17; Admin Dose 40 MG; Start 12/18/16 at 06:00 Acetaminophen (Tylenol Tab) 500 mg Q4H PRN PO PAIN AND OR ELEVATED TEMP Last administered on 01/03/17 22:10; Admin Dose 500 MG; Start 12/17/16 at 22:30 Albuterol (Ventolin Hfa) 2 puff Q4H PRN INH WHEEZING AND SOB; Start 12/17/16 at 22:30 Folic Acid (Folic Acid) 1 mg DAILY PO Last administered on 01/13/17 08:46; Admin Dose 1 MG; Start 12/18/16 at 09:00 Hydroxyzine Pamoate (Vistaril) 25 mg QHS PRN PO ITCHING Last administered on 23:03; Admin Dose 25 MG; Start 12/17/16 at 22:30 Magnesium Chloride (Mag 64) 64 mg BID PO Last administered on 01/13/17 08:46; Admin Dose 64 MG; Start 12/17/16 at 23:30 Famotidine (Pepcid) 20 mg Q24H PO Last administered on 01/12/17 23:03; Admin Dose 20 MG; Start 12/17/16 at 22:30 Mupirocin (Bactroban) 1 applic BID TOP Last administered on 01/13/17 08:49; Admin Dose 1 APPLIC; Start 12/19/16 at 21:00 Simethicone (Mylicon) 80 mg BID PRN PO DISTENSION/GAS/BLOATING Last administered on 01/01/17 08:44; Admin Dose 80 MG; Start 12/22/16 at 14:00 Metoprolol Tartrate (Lopressor) 5 mg Q4H PRN IV HR>110 Hold SBP<100; Start at 18:00 Atenolol (Tenormin) 12.5 mg BID NGT Last administered on 01/07/17 09:36; Admin Dose 12.5 MG; Start 12/30/16 at 21:00 Midodrine 10 mg 10 mg Q8H PRN PO SBP <100 Last administered on 01/13/17 06:17; Admin Dose 10 MG; Start 01/09/17 at 19:30 Vancomycin HCl/ Sodium Chloride (Vancocin/NS) 150 ml @ 75 mls/hr Q24H IVPB Last administered on 01/12/17 13:21; Admin Dose 75 MLS/HR; Start 01/10/17 at 13: 00 Citric Acid/ Sodium Citrate (Bicitra) 30 ml TID PO Last administered on 08:47; Admin Dose 30 ML; Start 01/10/17 at 13:30 DEVENDRA GOMES Jan 13, 2017 11:54
[2017-01-13] MEDS: VANCOMYCIN 750 MG in SOD CHLORIDE 0.9% 150 ML IVPB SCH (12:52)
--- NOTE | 2017-01-13 18:57 | CONS ---
Date/Time of Note Date/Time of Note DATE: 01/13/17 TIME: 18:55 Assessment/Plan Assessment/Plan Additional Assessment/Plan 1. Acute kidney injury secondary to severe prerenal azotemia secondary to nausea, vomiting and decreased p.o. intake. 2. Hyponatremia with a sodium of 128 secondary to hypovolemic hyponatremia. 4. Hyperkalemia secondary to worsening acute kidney injury and renal failure.- inow improved 5. Metabolic acidosis with bicarbonate of 16 secondary to increased ileostomy output.- now becomes severe with PH low on ABG - s/p HCO3 drip PLAN: Cr 1.1 today - other electrolytes stable , no labs today change bicitra 30ml PO BID will follow up Consultation Date/Type/Reason Admit Date/Time Dec 17, 2016 at 08:55 Initial Consult Date Dec Type of Consultation: NEPHROLOGY Referring Provider: CARLOS RODRIGUEZ MD Exam/Review of Systems Vital Signs Vitals Vital Signs Date Time Temp Pulse Resp B/P Pulse Ox O2 Delivery O2 Flow Rate FiO2 01/13/17 18:49 87 91/54 01/13/17 15:48 98.2 20 100 01/12/17 06:00 Room Air Intake and Output 01/12/17 01/12/17 01/13/17 15:00 23:00 07:00 Intake Total 1000 ml Output Total 600 ml Balance 400 ml Exam Constitutional: alert, oriented Head: normocephalic Neck: supple Respiratory: normal air movement Cardiovascular: nl pulses Gastrointestinal: non-tender, other (Ileostomy), soft Musculoskeletal: nl gait and stance Extremities: normal pulses 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 Results Result Diagram: 01/11/17 0654 01/11/17 0654 Medications Medications Current Medications Ondansetron HCl (Zofran Inj) 4 mg Q6H PRN IV NAUSEA AND/OR VOMITING Last administered on 12/30/16 23:14; Admin Dose 4 MG; Start 12/17/16 at 13:00 Morphine Sulfate (morphine) 1 mg Q4H PRN IV PAIN LEVEL 7-10; Start 12/17/16 at 13:00 Pantoprazole (Protonix Tab) 40 mg DAILY@06 PO Last administered on 01/13/17 06: 17; Admin Dose 40 MG; Start 12/18/16 at 06:00 Acetaminophen (Tylenol Tab) 500 mg Q4H PRN PO PAIN AND OR ELEVATED TEMP Last administered on 01/03/17 22:10; Admin Dose 500 MG; Start 12/17/16 at 22:30 Albuterol (Ventolin Hfa) 2 puff Q4H PRN INH WHEEZING AND SOB; Start 12/17/16 at 22:30 Folic Acid (Folic Acid) 1 mg DAILY PO Last administered on 01/13/17 08:46; Admin Dose 1 MG; Start 12/18/16 at 09:00 Hydroxyzine Pamoate (Vistaril) 25 mg QHS PRN PO ITCHING Last administered on 23:03; Admin Dose 25 MG; Start 12/17/16 at 22:30 Magnesium Chloride (Mag 64) 64 mg BID PO Last administered on 01/13/17 08:46; Admin Dose 64 MG; Start 12/17/16 at 23:30 Famotidine (Pepcid) 20 mg Q24H PO Last administered on 01/12/17 23:03; Admin Dose 20 MG; Start 12/17/16 at 22:30 Mupirocin (Bactroban) 1 applic BID TOP Last administered on 01/13/17 08:49; Admin Dose 1 APPLIC; Start 12/19/16 at 21:00 Simethicone (Mylicon) 80 mg BID PRN PO DISTENSION/GAS/BLOATING Last administered on 01/01/17 08:44; Admin Dose 80 MG; Start 12/22/16 at 14:00 Metoprolol Tartrate (Lopressor) 5 mg Q4H PRN IV HR>110 Hold SBP<100; Start at 18:00 Atenolol (Tenormin) 12.5 mg BID NGT Last administered on 01/07/17 09:36; Admin Dose 12.5 MG; Start 12/30/16 at 21:00 Midodrine 10 mg 10 mg Q8H PRN PO SBP <100 Last administered on 01/13/17 06:17; Admin Dose 10 MG; Start 01/09/17 at 19:30 Vancomycin HCl/ Sodium Chloride (Vancocin/NS) 150 ml @ 75 mls/hr Q24H IVPB Last administered on 01/13/17 12:52; Admin Dose 75 MLS/HR; Start 01/10/17 at 13: 00 Citric Acid/ Sodium Citrate (Bicitra) 30 ml TID PO Last administered on 18:48; Admin Dose 30 ML; Start 01/10/17 at 13:30 ROHAN VELÁZQUEZ MD Jan 13, 2017 18:57
[2017-01-13] MEDS ORDERED: CITRIC ACID/NA CITRATE 30 ML CUP PO SCH (21:00)
[2017-01-13] MEDS ORDERED: HEPARIN (100 UNITS/ML) 5 ML SYG CATHETER ONE (21:30)
--- NOTE | 2017-01-14 12:12 | CONS ---
Date/Time of Note Date/Time of Note DATE: 01/14/17 TIME: 12:10 Assessment/Plan Assessment/Plan Additional Assessment/Plan 1. Tachyarrhythmia at this time, most consistent with sinus tachycardia - overall improved initially after IVF/midodrine BP support/digoxin/NL TSH/FT4. NL EF by echo. Having some mild recurrent tachycardia -HR better now, Rx in progress. BETTER overall, con't IVF now. 2. Hypotension, borderline and labile.-on midodrine - no symptoms. STABLE - will monitor for now. NO Sx now 3. Abnormal electrocardiogram with nonspecific ST-T abnormalities, assess for acute coronary syndrome.NL EF by echo this admit/negative trop 4. History of Hirschsprung disease- GI follows. Con't Rx. 5. Possible anxiety - improved. 6. Acidosis- better now. 7. Renal failure- improving - OK to hydrate as needed. . 8. Status post ileostomy. 9.Bacteremia-by blood cultures Consultation Date/Type/Reason Admit Date/Time Dec 17, 2016 at 08:55 Type of Consultation: NEPHROLOGY Referring Provider: CARLOS RODRIGUEZ MD 24 HR Interval Summary Free Text/Dictation NO acute events - BP stable - Ok to hydrate as needed. ROS: No fever, no chills, no nausea, no vomiting, no diarrhea/constipation No recent weight changes No chest pain, no PND, no orthopnea No dizziness, blurred vision No thirst, no heat or cold intolerance Exam/Review of Systems Vital Signs Vitals Vital Signs Date Time Temp Pulse Resp B/P Pulse Ox O2 Delivery O2 Flow Rate FiO2 01/13/17 20:12 98.4 90 18 83/48 100 01/12/17 06:00 Room Air Intake and Output 01/13/17 01/13/17 01/14/17 15:00 23:00 07:00 Intake Total 1110 ml Output Total 200 ml Balance 910 ml Exam General: WN/WD/NAD, AOx 3 HEENT: Unicetric/atraumatic/EOMI (follows commands) NECK: JVD elevated, no thyromegaly Lymph: no lymphadenopathy HEART: regular with no S3, II/ systolic murmur at apex LUNGS: Coarse sounds ABD: soft, NT, ND, +BS : Intact Neuro: non focal SKIN: chronic changes EXT: trace edema Results Result Diagram: 01/11/17 0654 01/11/17 0654 IRENE MADERA MD Jan 14, 2017 12:11
--- NOTE | 2017-01-15 15:59 | DS ---
Date/Time of Note Date/Time of Note DATE: 01/15/17 TIME: 15:56 Discharge Summary Admission/Discharge Info Admit Date/Time Dec 17, 2016 at 08:55 Discharge Date/Time Jan 13, 2017 at 22:40 Discharge Diagnosis - Sepsis with staph bacteremia. - Metabolic acidosis, resolved - Intractable nausea and vomiting, resolved. - Acute kidney injury, resolved. - Hirschsprung disease. - Ileostomy. Patient Condition: Good Hx of Present Illness The patient is a 41-year-old female known to me from previous admissions. The patient with Hirschsprung disease, chronic anemia. The patient had multiple abdominal surgeries as a child and also had a creation of ileostomy. 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 The patient developed nausea and vomiting last night and abdominal pain, and patient presented to the emergency room. In evaluation in the emergency room, the patient did not have any fever or chills. The patient had leukocytosis, with white blood cells elevated to 14,800. Hemoglobin was actually 12.8. The patient was noted to have hyperkalemia, with potassium 5.8 and hyponatremia with sodium of 128. Creatinine and BUN were elevated. The patient did not have any transaminitis. The patient actually contacted Dr. Paez's office yesterday and was given a prescription for Zofran; however, patient still continued to have nausea and vomiting and presented to the emergency. Patient was getting IV fluids, and patient will be admitted for further evaluation and management. The patient also complains of headache. Denies any chest pain, denies any shortness of breath. Hospital Course - Sepsis with staph bacteremia, repeat blood cultures negative, continue vancomycin until January 16, Dr. Ba was following an infection disease consultation. Dr. Raymond was following in vascular surgery consultation. - Metabolic acidosis, resolved Dr. Spain is following in nephrology consultation. - Intractable nausea and vomiting, resolved. Dr. Mendez is following in gastroenterology consultation. - Acute kidney injury. Dr. Spain is following in nephrology consultation. Continue IV fluids monitor electrolytes. - Hirschsprung disease. - Ileostomy. Home Meds Active Scripts [Vancomycin Iv Per Pharmacy] 1 EA EACH No Conflict Check, 0 EA XX .PER PROTOCOL for 3 Days Prov:ROMI ESPINO 01/13/17 Pantoprazole* (Pantoprazole*) 40 Mg Tablet.dr, 40 MG PO DAILY@06 for 30 Days Prov:ROMI ESPINO 01/13/17 Sodium Bicarbonate (Na Bicarbonate) 650 Mg Tab, 650 MG PO BID for 14 Days, TAB Prov:ROMI ESPINO 01/13/17 Magnesium Chloride* (Mag 64*) 64 Mg Tabsr, 64 MG PO BID for 14 Days, TAB Prov:ROMI ESPINO 01/13/17 Midodrine HCl (Midodrine HCl) 2.5 Mg Tablet, 2.5 MG PO BID@09,17 Y for SBP <90 for 30 Days, TAB Prov:DEVENDRA GOMES 11/16/16 Reported Medications Acetaminophen* (Acetaminophen*) 500 MG Extra Strength Tablet, 500 MG PO Q4H Y for PAIN AND OR ELEVATED TEMP, TAB 11/21/16 Multivits-Min/Iron/FA/Lutein (Centrum Silver Women Tablet) 1 Each Tablet, 1 EACH PO DAILY, TAB 11/21/16 Hydroxyzine Pamoate* (Vistaril*) 25 Mg Capsule, 25 MG PO QHS Y for ITCHING, CAP 11/02/15 Albuterol Sulfate* (Proair HFA*) 8.5 Gm Hfa.aer.ad, 2 PUFF INH Q4H Y for WHEEZING AND SOB, #1 INHALER 11/02/15 Folic Acid* (Folic Acid*) 1 Mg Tablet, 1 MG PO DAILY, TAB 11/02/15 Cyanocobalamin* (Vitamin B-12* Inj) 1,000 Mcg/Ml Vial, 1000 MCG IM Q28D, VIAL 11/02/15 Discontinued Reported Medications Famotidine* (Famotidine*) 20 Mg Tablet, 20 MG PO BID, TAB 11/02/15 Discontinued Scripts Potassium Chloride* (K-Dur*) 20 Meq Tab.prt.sr, 20 MEQ PO BID for 30 Days Prov:ROMI ESPINO 12/04/16 Follow-up Plan Monitor renal status by home health services while patient is on vancomycin. follow-up with PMD in 2 weeks. Primary Care Provider Noel Paez MD Time spent on discharge: > 30 minutes ROMI ESPINO Jan 15, 2017 15:59
== END 2017-01-13 22:40 | disposition home health service (06) | DRG 682 ==
LOC: E/R 08:38 → PP2 08:55 → UNDODISIN 12-18 20:16 → MS4 12-22 23:04
PROVIDERS: ADMIT Internal Medicine; ATTEND Internal Medicine
PROC: 0DB68ZX Excision of Stomach, Via Natural or Artificial Opening Endoscopic, Diagnostic (ICD-10-PCS; 2016-12-19)
PROC: 0DB58ZX Excision of Esophagus, Via Natural or Artificial Opening Endoscopic, Diagnostic (ICD-10-PCS; principal; 2016-12-19 19:00)
DX: N17.9 Acute kidney failure, unspecified (principal); A41.1 Sepsis due to other specified staphylococcus; E43 Unspecified severe protein-calorie malnutrition; R64 Cachexia; E87.2 Acidosis; Q43.1 Hirschsprung's disease; E87.1 Hypo-osmolality and hyponatremia; E86.0 Dehydration; Z68.1 Body mass index [BMI] 19.9 or less, adult; N39.0 Urinary tract infection, site not specified; R11.10 Vomiting, unspecified; R10.9 Unspecified abdominal pain; R51 Headache; Z93.2 Ileostomy status; E87.5 Hyperkalemia; N18.9 Chronic kidney disease, unspecified; K25.9 Gastric ulcer, unspecified as acute or chronic, without hemorrhage or perforation; K31.4 Gastric diverticulum; Z22.322 Carrier or suspected carrier of Methicillin resistant Staphylococcus aureus; B95.62 Methicillin resistant Staphylococcus aureus infection as the cause of diseases classified elsewhere; B95.2 Enterococcus as the cause of diseases classified elsewhere; B96.89 Other specified bacterial agents as the cause of diseases classified elsewhere; E83.42 Hypomagnesemia; R00.0 Tachycardia, unspecified
CPT/HCPCS: 36415; 36600; 71010; 71250; 78806; 80048; 80053; 80061; 80202; 81001; 82565; 82803; 83605; 83690; 83735; 84145; 84436; 84439; 84443; 84520; 85025; 85378; 85610; 85730; 87040; 87081; 87086; 88305; 88312; 88313; 93005; 93306; 96374; 96375; A9570; J2270; J2370; J2405; J3010; J3370; J3475; J3480; J7030; J7040; J7042; J7070

== ENCOUNTER 2017-02-16 14:14 | Emergency (ER) | payer OTHER ==
[~2017-02-16] VITALS: Wt 33.0 kg
[~2017-02-16 14:14] MED LIST changes: -FAMO20TA18 PO; -MYL80 GTB; +PANT40TA4 PO; -POTA20TA15 PO; +SODI650T PO; +Vancomycin Iv Per Pharmacy XX
[2017-02-16] MEDS ORDERED: ONDANSETRON 4 MG INJ IM STA (15:03)
[2017-02-16] MEDS ORDERED: HYDR-902 PO (15:24)
[2017-02-16] MEDS ORDERED: HYDROCODONE/APAP (10/325) TAB PO ONE (15:30)
[2017-02-16 15:42] VITALS: BP 137/86; PULSE 86; RESP 20; TEMP 98.3
--- NOTE | 2017-02-16 16:01 | ERD ---
ER Documentation Chief Complaint Date/Time DATE: 02/16/17 TIME: 15:59 Chief Complaint NAUSEA, VOMITING, NECK PAIN HPI Patient is a 41-year-old female with Hirschsprung's disease and chronic pain who presents with abdominal pain and vomiting. She has abdominal pain, back pain, and neck pain. She says the symptoms started yesterday at 4 PM. She has had vomiting and has a history of similar symptoms. She said that it started after eating a hamburger. She came in with a family member. She was given Tylenol and Zofran once yesterday and once this morning at 4 AM and says that it is not working. Upon review of old medical records the patient has multiple visits with admissions since 2016. ROS All systems reviewed and are negative except as per history of present illness. Medications Home Meds Active Scripts Hydrocodone/Acetaminophen ([place] 10-325 Tablet) 1 Each Tablet, 1 TAB PO Q6H Y for PAIN, #7 TAB Prov:BOLIVAR UNGER MD 02/16/17 [Vancomycin Iv Per Pharmacy] 1 EA EACH No Conflict Check, 0 EA XX .PER PROTOCOL for 3 Days Prov:ROMI ESPINO 01/13/17 Pantoprazole* (Pantoprazole*) 40 Mg Tablet.dr, 40 MG PO DAILY@06 for 30 Days Prov:ROMI ESPINO 01/13/17 Sodium Bicarbonate (Na Bicarbonate) 650 Mg Tab, 650 MG PO BID for 14 Days, TAB Prov:ROMI ESPINO 01/13/17 Magnesium Chloride* (Mag 64*) 64 Mg Tabsr, 64 MG PO BID for 14 Days, TAB Prov:ROMI ESPINO 01/13/17 Midodrine HCl (Midodrine HCl) 2.5 Mg Tablet, 2.5 MG PO BID@09,17 Y for SBP <90 for 30 Days, TAB Prov:DEVENDRA GOMES 11/16/16 Reported Medications Acetaminophen* (Acetaminophen*) 500 MG Extra Strength Tablet, 500 MG PO Q4H Y for PAIN AND OR ELEVATED TEMP, TAB 11/21/16 Multivits-Min/Iron/FA/Lutein (Centrum Silver Women Tablet) 1 Each Tablet, 1 EACH PO DAILY, TAB 11/21/16 Hydroxyzine Pamoate* (Vistaril*) 25 Mg Capsule, 25 MG PO QHS Y for ITCHING, CAP 11/02/15 Albuterol Sulfate* (Proair HFA*) 8.5 Gm Hfa.aer.ad, 2 PUFF INH Q4H Y for WHEEZING AND SOB, #1 INHALER 11/02/15 Folic Acid* (Folic Acid*) 1 Mg Tablet, 1 MG PO DAILY, TAB 11/02/15 Cyanocobalamin* (Vitamin B-12* Inj) 1,000 Mcg/Ml Vial, 1000 MCG IM Q28D, VIAL 11/02/15 Allergies Allergies: Coded Allergies: No Known Allergies (Verified Allergy, Unknown, 01/08/17) ferrous sulfate (Verified Adverse Reaction, Severe, vomiting, 01/08/17) ANY FORM OF FERROUS codeine (Verified Adverse Reaction, Intermediate, vomiting , 01/08/17) PMhx/Soc History of Surgery: Yes (Ileostomy) Anesthesia Reaction: No Hx 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 Disorder: No Hx Respiratory Disorders: No Hx Cardiac Disorders: No Hx Psychiatric Problems: No Hx Miscellaneous Medical Probl: Yes Hx Alcohol Use: No Hx Substance Use: No Hx Tobacco Use: No FmHx Family History: diabetes Physical Exam Vitals Vital Signs Date Time Temp Pulse Resp B/P Pulse Ox O2 Delivery O2 Flow Rate FiO2 02/16/17 15:42 98.3 86 20 137/86 98 Room Air 02/16/17 14:17 98.1 132 17 139/77 100 Physical Exam Const: No acute distress Head: Atraumatic Eyes: Normal Conjunctiva ENT: Normal External Ears, Nose and Mouth. Neck: Full range of motion..~ No meningismus. Resp: Clear to auscultation bilaterally Cardio: Regular rate and rhythm, no murmurs Abd: Soft, mild tenderness to palpation diffusely, patient has a colostomy intact with pink stoma Skin: No petechiae or rashes Back: No midline or flank tenderness Ext: No cyanosis, or edema Neur: Awake and alert Psych: Normal Mood and Affect Results 24 hrs Current Medications Medications (Trade) Dose Ordered Sig/Elvie Route PRN Reason Start Time Stop Time Status Last Admin Dose Admin Acetaminophen/ Hydrocodone Bitart ([place] (10/325)) 1 tab ONCE ONCE PO 02/16/17 15:30 02/16/17 15:31 DC 02/16/17 15:38 Ondansetron HCl (Zofran Inj) 4 mg ONCE STAT IM 02/16/17 15:03 02/16/17 15:04 DC 02/16/17 15:39 Procedures/MDM Patient is a 41-year-old female presents with abdominal pain and vomiting. This is very similar to her previous complaints. Initially her heart rate at triage was tachycardic but upon recheck the heart rate was normal in the 80s. The patient has no fever. The patient is otherwise well-appearing and hydrated. Her symptoms only started yesterday and I doubt serious electrolyte abnormality at this time. I believe that outpatient management would be appropriate. She was given [place] by mouth and Zofran IM to ensure that she could keep his Zofran down. The patient will need to follow-up with Dr. Paez within 24 hours for reevaluation. She can return sooner for any worsening symptoms. I would like to hold off on admitting her at this time given the risk of nosocomial infections given her multiple recent admissions. At this point I doubt appendicitis, cholecystitis, pancreatitis, or bowel obstruction. Departure Diagnosis: Primary Impression: Abdominal pain Abdominal location: generalized Qualified Code: R10.84 - Generalized abdominal pain Additional Impression: Nausea and vomiting Vomiting type: unspecified Vomiting Intractability: non-intractable Qualified Code: R11.2 - Non-intractable vomiting with nausea, unspecified vomiting type Condition: Fair Patient Instructions: Abdominal Pain, Nausea and Vomiting-Adult Additional Instructions: FOLLOW UP WITH YOUR PRIMARY CARE PHYSICIAN TOMORROW.Return to this facility if you are not improving as expected. BOLIVAR UNGER MD Feb 16, 2017 16:01
== END 2017-02-16 16:48 | disposition home or self-care (01) ==
LOC: E/R 14:14
DX: R10.84 Generalized abdominal pain (principal); R40.2252 Coma scale, best verbal response, oriented, at arrival to emergency department
CPT/HCPCS: 96372; J2405; Z7502; Z7610

== ENCOUNTER 2017-03-01 23:49 | Inpatient (IN) | payer OTHER ==
[~2017-03-01] VITALS: Ht 147.3 cm; Wt 32.5 kg
[~2017-03-01 23:49] MED LIST changes: +HYDR-902 PO
[2017-03-02] VITALS (10 sets, daily range): BP systolic 90–109; BP diastolic 52–57; PULSE 104–155; RESP 17–20; TEMP 98.2; Ht 147.3 cm; Wt 32.5 kg
--- NOTE | 2017-03-02 02:50 | ERD ---
ER Documentation Chief Complaint Date/Time DATE: 03/02/17 TIME: 02:49 Chief Complaint c/o nausea and vomiting, back pain, SOB x1 day. Hx: Hirschsprungs dx HPI 41-year-old woman with multiple complaints including multiple episodes of clear nonbloody nonbilious emesis today, back pain, abdominal pain. Patient has a history of Hirschsprung's disease and colostomy bag. She denies diarrhea, no melena or blood per rectum, no loss of consciousness, no chest pain. ROS All systems reviewed and are negative except as per history of present illness. Medications Home Meds Active Scripts Hydrocodone/Acetaminophen ([place] 10-325 Tablet) 1 Each Tablet, 1 TAB PO Q6H Y for PAIN, #7 TAB Prov:BOLIVAR UNGER MD 02/16/17 [Vancomycin Iv Per Pharmacy] 1 EA EACH No Conflict Check, 0 EA XX .PER PROTOCOL for 3 Days Prov:RMOI ESPINO 01/13/17 Pantoprazole* (Pantoprazole*) 40 Mg Tablet.dr, 40 MG PO DAILY@06 for 30 Days Prov:ROMI ESPINO 01/13/17 Sodium Bicarbonate (Na Bicarbonate) 650 Mg Tab, 650 MG PO BID for 14 Days, TAB Prov:ROMI ESPINO 01/13/17 Magnesium Chloride* (Mag 64*) 64 Mg Tabsr, 64 MG PO BID for 14 Days, TAB Prov:ROMI ESPINO 01/13/17 Midodrine HCl (Midodrine HCl) 2.5 Mg Tablet, 2.5 MG PO BID@09,17 Y for SBP <90 for 30 Days, TAB Prov:DEVENDRA GOMES 11/16/16 Reported Medications Acetaminophen* (Acetaminophen*) 500 MG Extra Strength Tablet, 500 MG PO Q4H Y for PAIN AND OR ELEVATED TEMP, TAB 11/21/16 Multivits-Min/Iron/FA/Lutein (Centrum Silver Women Tablet) 1 Each Tablet, 1 EACH PO DAILY, TAB 11/21/16 Hydroxyzine Pamoate* (Vistaril*) 25 Mg Capsule, 25 MG PO QHS Y for ITCHING, CAP 11/02/15 Albuterol Sulfate* (Proair HFA*) 8.5 Gm Hfa.aer.ad, 2 PUFF INH Q4H Y for WHEEZING AND SOB, #1 INHALER 11/02/15 Folic Acid* (Folic Acid*) 1 Mg Tablet, 1 MG PO DAILY, TAB 11/02/15 Cyanocobalamin* (Vitamin B-12* Inj) 1,000 Mcg/Ml Vial, 1000 MCG IM Q28D, VIAL 11/02/15 Allergies Allergies: Coded Allergies: No Known Allergies (Verified Allergy, Unknown, 01/08/17) ferrous sulfate (Verified Adverse Reaction, Severe, vomiting, 01/08/17) ANY FORM OF FERROUS codeine (Verified Adverse Reaction, Intermediate, vomiting , 01/08/17) PMhx/Soc Hirschsprung disease, chronic anemia., Chronic pain syndrome History of Surgery: No Anesthesia Reaction: No Hx 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 Disorder: No Hx Respiratory Disorders: No Hx Cardiac Disorders: No Hx Psychiatric Problems: Yes Hx Miscellaneous Medical Probl: Yes (hirschprungs, GERD, Anemia) Hx Alcohol Use: No Hx Substance Use: No Hx Tobacco Use: No Smoking Status: Never smoker FmHx Family History: No diabetes Physical Exam Vitals Vital Signs Date Time Temp Pulse Resp B/P Pulse Ox O2 Delivery O2 Flow Rate FiO2 03/02/17 05:21 100 16 100/57 03/02/17 03:30 95 16 100/52 98 03/02/17 00:02 97.8 129 22 97/55 98 Physical Exam GENERAL: Well-developed, well-nourished, dehydrated, afebrile, nauseous HEENT: Dry mucous membranes, pink conjunctiva, no cervical spine tenderness or step-off deformities, no goiter, no jaundice or icterus, extraocular movements intact without pain. No submandibular induration, and no pharyngeal erythema NEURO: Alert and oriented 3, cranial nerves II through XII intact bilaterally, pupils equal round reactive to light, no focal deficits or facial asymmetry, sensation intact distally Strength 5/5 in upper and lower extremities bilaterally CARDIAC: Regular rate and rhythm, no murmurs rubs or gallops LUNGS: Clear bilaterally no wheezing crackles or stridor ABDOMEN: Colostomy bag in place, soft nontender, no guarding, no rigidity, no rebound, no psoas sign no obturator sign. SKIN: Warm and dry to touch, no abrasions, contusions, or hematomas, no lacerations, no ecchymosis, no target lesions, and without ulcers EXTREMITIES: No clubbing cyanosis or edema, calves are bilaterally symmetrical, no Homans sign, no popliteal cord sign. Distal pulses equal and bilateral PSYCH: Normal affect without agitation or irritability Result Diagram: 03/02/17 0312 03/02/17 0454 Results 24 hrs Laboratory Tests Test 03/02/17 02:55 03/02/17 03:12 03/02/17 04:54 Urine Color YELLOW Urine Clarity CLOUDY Urine pH 5.0 Urine Specific [place] 1.017 Urine Ketones NEGATIVEmg/dL Urine Nitrite NEGATIVEmg/dL Urine Bilirubin NEGATIVEmg/dL Urine Urobilinogen NEGATIVEmg/dL Urine Leukocyte Esterase NEGATIVELeu/ul Urine Microscopic RBC 1/HPF Urine Microscopic WBC 1/HPF Urine Squamous Epithelial Cells FEW/HPF Urine Bacteria FEW/HPF Urine Hemoglobin NEGATIVEmg/dL Urine Glucose NEGATIVEmg/dL Urine Total Protein 2+mg/dl White Blood Count 9.410^3/ul Red Blood Count 4.6810^6/ul Hemoglobin 13.8g/dl Hematocrit 36.2% Mean Corpuscular Volume 77.4fl Mean Corpuscular Hemoglobin 29.5pg Mean Corpuscular Hemoglobin Concent 38.1g/dl Red Cell Distribution Width 12.0% Platelet Count 51161^3/UL Mean Platelet Volume 8.9fl Neutrophils % 84.7% Lymphocytes % 7.9% Monocytes % 6.4% Eosinophils % 0.3% Basophils % 0.2% Nucleated Red Blood Cells % 0.0/100WBC Neutrophils # (Manual) 810^3/ul Lymphocytes # 0.810^3/ul Monocytes # 0.610^3/ul Eosinophils # 0.010^3/ul Basophils # 0.010^3/ul Nucleated Red Blood Cells # 0.010^3/ul Sodium Level 108mmol/L 110mmol/L Potassium Level 6.0mmol/L 5.3mmol/L Chloride Level 69mmol/L 78mmol/L Carbon Dioxide Level 17mmol/L 17mmol/L Anion Gap 28 20 Blood Urea Nitrogen 77mg/dl 75mg/dl Creatinine 2.56mg/dl 2.13mg/dl Glucose Level 136mg/dl 143mg/dl Calcium Level 10.7mg/dl 8.8mg/dl Total Bilirubin 0.3mg/dl Direct Bilirubin 0.00mg/dl Indirect Bilirubin 0.3mg/dl Aspartate Amino Transf (AST/SGOT) 41IU/L Alanine Aminotransferase (ALT/SGPT) 29IU/L Alkaline Phosphatase 124IU/L Total Protein 10.1g/dl Albumin 5.5g/dl Globulin 4.60g/dl Albumin/Globulin Ratio 1.19 Lipase 518U/L Current Medications Medications (Trade) Dose Ordered Sig/Elvie Route PRN Reason Start Time Stop Time Status Last Admin Dose Admin Sodium Chloride (NS) 1,000 ml @ 2,000 mls/hr Q30M STAT IV 03/02/17 02:51 03/02/17 03:20 DC 03/02/17 03:19 Hydromorphone HCl (Dilaudid) 1 mg ONCE STAT IV 03/02/17 02:51 03/02/17 02:52 DC 03/02/17 03:19 Ondansetron HCl (Zofran Inj) 4 mg ONCE STAT IV 03/02/17 02:51 03/02/17 02:52 DC 03/02/17 03:19 Metoclopramide HCl 10 mg 10 mg ONCE ONCE IV 03/02/17 05:30 03/02/17 05:31 DC 03/02/17 05:26 Sodium Chloride (Sodium Chloride Iv 3%) 500 ml @ 60 mls/hr Q8H20M STAT IV 03/02/17 05:46 03/02/17 14:05 Dextrose (D50w Syringe) 50 ml NOW STAT IV 03/02/17 05:46 03/02/17 05:49 DC Insulin Human Regular (Humulin R) 8 unit ONCE ONCE IV 03/02/17 06:00 03/02/17 06:01 Albuterol (Proventil 0.083% (Neb)) 5 mg ONCE STAT HHN 03/02/17 05:46 03/02/17 05:49 DC Procedures/MDM IV line was established patient was placed on lunchroom monitor rhythm strip revealed a sinus rhythm at about 80 bpm with upright P and T waves. Patient was afebrile. I administered 2 L normal saline intravenously for dehydration, hydromorphone 1 mg IV and Zofran 4 mg IV for pain and vomiting. CBC was normal, electrolytes revealed kidney failure with a BUN/creatinine of 77 /2.6, hyperkalemia 6, hyponatremia at 108 to be repeated. Liver function tests slightly elevated, lipase at about 518 troponin negative. Urine analysis unremarkable. BMP was repeated sodium is in fact low at 110 and she has continued hyperkalemia although improved at 5.3. I treated her here for hyperkalemia with albuterol 5 mg via nebulizer, dextrose 25 g IV, regular insulin 8 units IV. She also received 3% hypertonic saline for severe hyponatremia. Critical Care: Time: 33 minutes, this was time separate from other billable procedures. Treatments/Evaluations: Close monitoring and treatment of unstable vital signs, cardiorespiratory, and neurologic status, while maintaining tight balance of fluid, respiratory, and cardiac interventions. Chest X-ray 1V Interpreted by me: Soft Tissue: No acute abnormalities, Port-A-Cath in the right chest Bones: No acute abnormalities Mediastinum/Cardiac Silhouette/Lungs: No acute abnormalities EKG performed, read by me: Sinus tachycardia at 102 bpm, normal sinus rhythm, normal axis, no acute ST segment changes, narrow QRS complex, with good R-wave progression in precordial leads. For continued vomiting I administered metoclopramide 10 mg IV 1. Patient will be admitted to telemetry setting for continued medical management and IV hydration. Departure Diagnosis: Primary Impression: Intractable vomiting Vomiting type: unspecified Nausea presence: with nausea Qualified Code: R11.2 - Intractable vomiting with nausea, unspecified vomiting type Additional Impressions: Dehydration Hyperkalemia Acute kidney injury Acute hyponatremia Condition: JONNIE Foley MD Mar 02, 2017 02:49
[2017-03-02] MEDS ORDERED: SOD CHLORIDE 0.9% 1,000 ML IV STA (02:51)
[2017-03-02] MEDS ORDERED: HYDROmorphONE 1 MG/ML SYG IV STA (02:51)
[2017-03-02] MEDS ORDERED: ONDANSETRON 4 MG INJ IV STA (02:51)
[2017-03-02 03:56] LABS: ADD UMIC YES; UR ASCORBIC ACID NEGATIVE (NEGATIVE); UR BACTERIA FEW /HPF (NONE SEEN); UR BILIRUBIN (Dip) NEGATIVE (NEGATIVE); UR BLOOD (Dip) NEGATIVE (NEGATIVE); UR CLARITY CLOUDY (CLEAR); UR COLOR YELLOW (YELLOW); UR GLUCOSE (Dip) NEGATIVE (NEGATIVE); UR KETONES (Dip) NEGATIVE (NEGATIVE); UR LEUKOCYTE ESTERASE (Dip) NEGATIVE Leu/ul (NEGATIVE); UR NITRITE (Dip) NEGATIVE (NEGATIVE); UR RBC 1 /HPF (0-5); UR SPECIFIC GRAVITY (Dip) 1.017 (1.003-1.030); UR SQUAMOUS EPITHELIAL CELL FEW /HPF (FEW); UR TOTAL PROTEIN (Dip) 2+ mg/dl (NEGATIVE); UR UROBILINOGEN (Dip) NEGATIVE (NEGATIVE)
[2017-03-02 04:08] LABS: ALBUMIN 5.5 g/dl (3.3-4.9); ALBUMIN/GLOBULIN RATIO 1.19; BILIRUBIN,INDIRECT 0.3 mg/dl (0-1.1); BILIRUBIN,TOTAL 0.3 mg/dl (0.2-1.3); CALCIUM 10.7 mg/dl (8.4-10.2); CREATININE 2.56 mg/dl (0.44-1.00); TOTAL PROTEIN 10.1 g/dl (6.1-8.1)
[2017-03-02 04:12] LABS: BASOPHILS % 0.2 % (0.0-2.0); EOSINOPHILS % 0.3 % (0.0-7.0); HEMATOCRIT 36.2 % (37.0-47.0); LYMPHOCYTES # 0.8 10^3/ul (0.8-2.9); LYMPHOCYTES % 7.9 % (15.0-51.0); MEAN CORPUSCULAR HEMOGLOBIN 29.5 pg (29.0-33.0); MEAN CORPUSCULAR VOLUME 77.4 fl (82.0-101.0); MEAN PLATELET VOLUME 8.9 fl (7.4-10.4); MONOCYTE # 0.6 10^3/ul (0.3-0.9); MONOCYTES % 6.4 % (0.0-11.0); NEUTROPHILS % 84.7 % (39.0-77.0); PLATELET COUNT 523 10^3/UL (140-415); RED BLOOD COUNT 4.68 10^6/ul (4.20-5.40); WHITE BLOOD COUNT 9.4 10^3/ul (4.8-10.8)
[2017-03-02 04:13] LABS: HEMOGLOBIN 13.8 g/dl (12.0-16.0); MEAN CORPUSCULAR HGB CONC 38.1 g/dl (32.0-37.0); POSITIVE DIFF @See below
[2017-03-02] MEDS ORDERED: METOCLOPRAMIDE 10 MG INJ IV ONE (05:30)
[2017-03-02 05:37] LABS: CALCIUM 8.8 mg/dl (8.4-10.2); CREATININE 2.13 mg/dl (0.44-1.00); POTASSIUM 5.3 mmol/L (3.5-5.1)
[2017-03-02] MEDS ORDERED: NACL 3% 500 ML IV STA (05:46)
[2017-03-02] MEDS ORDERED: ALBUTEROL 0.083% (NEB) 2.5 MG/3 ML AMP HHN STA (05:46)
[2017-03-02] MEDS ORDERED: DEXTROSE 50% 50 ML SYRINGE IV STA (05:46)
[2017-03-02] MEDS ORDERED: INSULIN REGULAR, HUMAN 100 UNIT/1 ML 3ML VIAL IV ONE (06:00)
[2017-03-02] MEDS: NACL 3% 200 ML IV SCH ×2 (06:20→07:30)
--- NOTE | 2017-03-02 06:30 | RADRPT ---
PROCEDURE: XR Chest. CLINICAL INDICATION: Infiltrate TECHNIQUE: AP Portable chest. COMPARISON: 12/23/2016 FINDINGS: The right port catheter is unchanged. Nipple shadows are visualized. The cardiomediastinal silhouette is normal. The aorta is normal. No focal consolidation, pleural eff usion or pneumothorax is seen. The osseous structures are intact. IMPRESSION: No radiographic evidence of acute cardiopulmonary disease. Physician Mariano Date Time Electronically viewed and signed by Sylvia Osborne Physician on 03/02/2017 06:29 CS/
--- NOTE | 2017-03-02 12:10 | HP ---
Date/Time of Note Date/Time of Note DATE: 03/02/17 TIME: 12:08 Assessment/Plan VTE Prophylaxis VTE Prophylaxis Intervention: other Lines/Catheters IV [facility]ter [facility]from [facility] ACCESSED IN ED Assessment/Plan Chief Complaint/Hosp Course 1) Dehydration, hyponatremia - IV fluids - monitor - consult nephrology for help in management 2) Hirshsprung - monitor Problems: HPI/ROS Admit Date/Time Admit Date/Time Mar 02, 2017 at 05:33 Hx of Present Illness Patient with Hirshsprung's disease comes in with abdominal pain, nausea/vomiting , and dehydration. Patient has been admitted multiple times in the past for the same. PMH/Family/Social Past Medical History Medical History: no pertinent history Past Surgical History Past Surgical Hx: bowel resection, other Family History Significant Family History: no pertinent family hx Social History Alcohol Use: none Smoking Status: Never smoker Exam/Review of Systems Vital Signs Vitals Vital Signs Date Time Temp Pulse Resp B/P Pulse Ox O2 Delivery O2 Flow Rate FiO2 03/02/17 08:44 155 03/02/17 07:55 97.7 20 109/54 100 Room Air 03/02/17 05:55 21 Exam Constitutional: well developed Head: atraumatic, normocephalic Neck: supple Respiratory: clear to auscultation Cardiovascular: regular rate and rhythm Gastrointestinal: non-tender, soft Extremities: normal pulses Labs Result Diagram: 03/02/17 0312 03/02/17 0454 GINGER MOSES Mar 02, 2017 12:10
[2017-03-02] MEDS ORDERED: CYANOCOBALAMIN 1000 MCG INJ IM SCH (12:30)
[2017-03-02] MEDS ORDERED: ACETAMINOPHEN 325 MG TAB PO PRN (12:30)
[2017-03-02] MEDS ORDERED: morphine 2 MG INJ IV PRN (12:30)
[2017-03-02] MEDS ORDERED: HYDROCODONE/APAP (10/325) TAB PO PRN (12:30)
[2017-03-02] MEDS ORDERED: ALBUTEROL HFA 8 GM INHALER INH PRN (12:30)
[2017-03-02] MEDS ORDERED: NACL 0.9% 3 ML SYG IV SCH (12:30)
[2017-03-02] MEDS: SOD CHLORIDE 0.9% 1,000 ML IV SCH ×2 (13:48→21:06)
[2017-03-02] MEDS: FAMOTIDINE 20 MG INJ IV SCH (13:52)
--- NOTE | 2017-03-02 16:38 | CONS ---
Date/Time of Note Date/Time of Note DATE: 03/02/17 TIME: 16:35 Assessment/Plan Assessment/Plan Additional Assessment/Plan 1. acute Kidney injury due to severe prerenal azotemia 2. Acute Hyperkalemia with K 6.0 3. Nausea,vomiting 4. Hypomagnesemia 5. Metabolic acidosis 6. H/o Hirschsprung disease s/p colostomy plan: Continue current care, IVF< expecting cr to imrpove with IVF hydration Bp stable received kayexalate for hyperkalemia, IVF given will check BMP stat to follow up on K AM labs ordered including magnesium and phosphorus thanks For consultaiton will follow up Consultation Date/Type/Reason Admit Date/Time Mar 02, 2017 at 05:33 Date of Consultation: Mar 02, 2017 Type of Consultation: NEPHROLOGY Reason for Consultation acute kidney injury, Hyperkalemia Referring Provider: GINGER MOSES Hx of Present Illness Patient with Hirshsprung's disease comes in with abdominal pain, nausea/vomiting , and dehydration. Patient has been admitted multiple times in the past for the same. she was noted to have acute hyperkalemi and renal has been consulted for K 6.0, Cr 2.56. Constitutional: diaphoresis, poor po Eyes: no complaints ENT: no complaints Respiratory: no complaints Cardiovascular: no complaints Gastrointestinal: no complaints Genitourinary: no complaints Musculoskeletal: no complaints Past Medical History Medical History: no pertinent history Past Surgical History Past Surgical Hx: bowel resection, other Social History Alcohol Use: none Smoking Status: Never smoker Exam/Review of Systems Vital Signs Vitals Vital Signs Date Time Temp Pulse Resp B/P Pulse Ox O2 Delivery O2 Flow Rate FiO2 03/02/17 16:25 98.0 113 18 98/52 100 03/02/17 07:55 Room Air 03/02/17 05:55 21 Exam Constitutional: alert, oriented Psych: no complaints Head: normocephalic Eyes: nl conjunctiva ENMT: nl external ears & nose Neck: supple Respiratory: clear to auscultation, intercostal retraction, normal air movement Cardiovascular: nl pulses, regular rate and rhythm Gastrointestinal: non-tender, soft Musculoskeletal: nl extremities to inspection Extremities: normal pulses 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: EXTERNAL RELATIONS DIRECTOR II-XII intact, nl mental status, nl speech, nl strength Skin: nl turgor Lymph: nl lymph nodes Results Result Diagram: 03/02/17 0312 03/02/17 0454 Results 24 hrs Laboratory Tests Test 03/02/17 02:55 03/02/17 03:12 03/02/17 04:54 Urine Color YELLOW Urine Clarity CLOUDY A Urine pH 5.0 Urine Specific [place] 1.017 Urine Ketones NEGATIVE Urine Nitrite NEGATIVE Urine Bilirubin NEGATIVE Urine Urobilinogen NEGATIVE Urine Leukocyte Esterase NEGATIVE Urine Microscopic RBC 1 Urine Microscopic WBC 1 Urine Squamous Epithelial Cells FEW Urine Bacteria FEW A Urine Hemoglobin NEGATIVE Urine Glucose NEGATIVE Urine Total Protein 2+ H White Blood Count 9.4 # Red Blood Count 4.68 # Hemoglobin 13.8 # Hematocrit 36.2 #L Mean Corpuscular Volume 77.4 L Mean Corpuscular Hemoglobin 29.5 Mean Corpuscular Hemoglobin Concent 38.1 H Red Cell Distribution Width 12.0 Platelet Count 523 H Mean Platelet Volume 8.9 Neutrophils % 84.7 H Lymphocytes % 7.9 L Monocytes % 6.4 Eosinophils % 0.3 Basophils % 0.2 Nucleated Red Blood Cells % 0.0 Neutrophils # (Manual) 8 H Lymphocytes # 0.8 Monocytes # 0.6 Eosinophils # 0.0 Basophils # 0.0 Nucleated Red Blood Cells # 0.0 Sodium Level 108 *L 110 *L Potassium Level 6.0 H 5.3 H Chloride Level 69 L 78 #L Carbon Dioxide Level 17 L 17 L Anion Gap 28 H 20 #H Blood Urea Nitrogen 77 H 75 H Creatinine 2.56 H 2.13 H Glucose Level 136 143 Calcium Level 10.7 H 8.8 Total Bilirubin 0.3 Direct Bilirubin 0.00 Indirect Bilirubin 0.3 Aspartate Amino Transf (AST/SGOT) 41 Alanine Aminotransferase (ALT/SGPT) 29 Alkaline Phosphatase 124 H Total Protein 10.1 H Albumin 5.5 H Globulin 4.60 H Albumin/Globulin Ratio 1.19 Lipase 518 H Medications Medications Current Medications Sodium Chloride (NS) 1,000 ml @ 125 mls/hr Q8H IV Last administered on t 13:48; Admin Dose 125 MLS/HR; Start 03/02/17 at 12:03 Ondansetron HCl (Zofran Inj) 4 mg Q6H PRN IV NAUSEA AND/OR VOMITING; Start at 12:30 Acetaminophen (Tylenol Tab) 650 mg Q6H PRN PO PAIN LEVEL 1-3 OR FEVER; Start at 12:30 Morphine Sulfate (morphine) 2 mg Q4H PRN IV PAIN LEVEL 7-10; Start 03/02/17 at 12:30 Famotidine (Pepcid Iv) 20 mg DAILY IV Last administered on 03/02/17 13:52; Admin Dose 20 MG; Start 03/02/17 at 14:00 Enoxaparin Sodium (Lovenox) 30 mg DAILY SC ; Start 03/03/17 at 09:00 Cyanocobalamin (Vitamin B12 Inj) 1,000 mcg Q28D IM Last administered on 16:13; Admin Dose 1,000 MCG; Start 03/02/17 at 12:30 Folic Acid (Folic Acid) 1 mg DAILY PO ; Start 03/03/17 at 09:00 Acetaminophen/ Hydrocodone Bitart ([place] (10/325)) 1 tab Q6H PRN PO PAIN; Start 03/02/17 at 12:30 Hydroxyzine Pamoate (Vistaril) 25 mg QHS PRN PO ITCHING; Start 03/02/17 at 12: 30 Magnesium Chloride (Mag 64) 64 mg BID PO ; Start 03/02/17 at 21:00 Midodrine (Proamatine) 2.5 mg BID@09,17 PRN PO SBP <90; Start 03/02/17 at 12:30 Pantoprazole (Protonix Tab) 40 mg DAILY@06 PO ; Start 03/03/17 at 06:00 Sodium Bicarbonate (Sodium Bicarbonate Tab) 650 mg BID PO ; Start 03/02/17 at 21 :00 ROHAN VELÁZQUEZ MD Mar 02, 2017 16:38
[2017-03-02 17:44] LABS: CALCIUM 7.7 mg/dl (8.4-10.2); CREATININE 1.35 mg/dl (0.44-1.00)
[2017-03-02 17:47] LABS: POTASSIUM 2.6 mmol/L (3.5-5.1)
[2017-03-02] MEDS ORDERED: POTASSIUM CHLORIDE 30 MEQ in SOD CHLORIDE 0.9% 150 ML IVPB ONE (21:00)
[2017-03-02] MEDS: MAGNESIUM CHLORIDE (SR) 64 MG TAB PO SCH (21:05)
[2017-03-02] MEDS: NA BICARBONATE 650 MG TAB PO SCH (21:05)
[2017-03-03] VITALS (12 sets, daily range): BP systolic 77–92; BP diastolic 46–55; PULSE 82–100; RESP 16–19
[2017-03-03] MEDS: SOD CHLORIDE 0.9% 1,000 ML IV SCH ×2 (04:03→06:41)
[2017-03-03] MEDS: PANTOPRAZOLE (EC) 40 MG TAB PO SCH (05:23)
[2017-03-03 08:18] LABS: ABNORMAL IP MESSAGE 1; BASOPHIL # 0.1 10^3/ul (0.0-0.1); EOSINOPHILS # 0.1 10^3/ul (0.0-0.5); HEMATOCRIT 23.3 % (37.0-47.0); LYMPHOCYTES # 0.4 10^3/ul (0.8-2.9); MEAN CORPUSCULAR VOLUME 79.5 fl (82.0-101.0); MEAN PLATELET VOLUME 9.2 fl (7.4-10.4); MONOCYTE # 0.5 10^3/ul (0.3-0.9); NEUTROPHILS % 78.6 % (39.0-77.0); PLATELET COUNT 283 10^3/UL (140-415); RED BLOOD COUNT 2.93 10^6/ul (4.20-5.40); RED CELL DISTRIBUTION WIDTH 11.9 % (11.5-14.5); WHITE BLOOD COUNT 4.9 10^3/ul (4.8-10.8)
[2017-03-03 08:27] LABS: ALBUMIN 2.9 g/dl (3.3-4.9); ALBUMIN/GLOBULIN RATIO 1.11; BILIRUBIN,INDIRECT 0.2 mg/dl (0-1.1); BILIRUBIN,TOTAL 0.2 mg/dl (0.2-1.3); CALCIUM 7.1 mg/dl (8.4-10.2); CREATININE 0.97 mg/dl (0.44-1.00); TOTAL PROTEIN 5.5 g/dl (6.1-8.1)
[2017-03-03 08:32] LABS: HEMOGLOBIN 8.8 g/dl (12.0-16.0); MEAN CORPUSCULAR HGB CONC 37.8 g/dl (32.0-37.0); POSITIVE DIFF @See below
[2017-03-03] MEDS: FAMOTIDINE 20 MG INJ IV SCH (08:32)
[2017-03-03] MEDS: NA BICARBONATE 650 MG TAB PO SCH ×2 (08:32→20:26)
[2017-03-03] MEDS: MAGNESIUM CHLORIDE (SR) 64 MG TAB PO SCH ×2 (08:32→20:26)
[2017-03-03] MEDS: FOLIC ACID 1 MG TAB PO SCH (08:32)
[2017-03-03] MEDS: MIDODRINE 2.5 MG TAB PO PRN ×2 (08:33→17:49)
[2017-03-03] MEDS: ENOXAPARIN 30 MG/0.3 ML SYG SC SCH (08:34)
[2017-03-03 08:35] LABS: POTASSIUM 2.3 mmol/L (3.5-5.1)
[2017-03-03 09:21] LABS: PHOSPHORUS 2.2 mg/dl (2.5-4.9)
[2017-03-03 09:25] LABS: MAGNESIUM 0.9 mg/dl (1.7-2.5)
[2017-03-03] MEDS ORDERED: MAGNESIUM SULFATE 2 GM/50 ML 50 ML IVPB ONE ×2 (09:30→14:30)
[2017-03-03] MEDS ORDERED: POTASSIUM CHLORIDE 250 ML IVPB ONE (10:00)
[2017-03-03] MEDS ORDERED: POTASSIUM PHOSPHATE 15 MM in SOD CHLORIDE 0.9% 250 ML IVPB ONE (11:00)
--- NOTE | 2017-03-03 14:27 | CONS ---
Date/Time of Note Date/Time of Note DATE: 03/03/17 TIME: 14:26 Assessment/Plan Assessment/Plan Chief Complaint/Hosp Course Patient with Hirshsprung's disease comes in with abdominal pain, nausea/vomiting , and dehydration. Patient has been admitted multiple times in the past for the same. she was noted to have acute hyperkalemi and renal has been consulted for K 6.0, Cr 2.56. Problems: Additional Assessment/Plan 1. acute Kidney injury due to severe prerenal azotemia 2. Acute Hyperkalemia with K 6.0 to now Hypokalemic 3. Nausea,vomiting 4. Hypomagnesemia 5. Metabolic acidosis 6. H/o Hirschsprung disease s/p colostomy 7. Hypomagnesemia severe plan: Continue current care, IVF< expecting cr to imrpove with IVF hydration KCl 40mEQ IV x 1, magnesium sulfate total 4 gram IV X 1 now will follow up Consultation Date/Type/Reason Admit Date/Time Mar 02, 2017 at 05:33 Initial Consult Date 03/02/17 Type of Consultation: NEPHROLOGY Reason for Consultation Hyperkalemia, MELBA, hypomagnesemia Referring Provider: GINGER MOSES 24 HR Interval Summary Free Text/Dictation doing ok, Stil NPO,mag 0.9, K low Exam/Review of Systems Vital Signs Vitals Vital Signs Date Time Temp Pulse Resp B/P Pulse Ox O2 Delivery O2 Flow Rate FiO2 03/03/17 12:15 90 03/03/17 12:04 98.0 16 89/50 100 03/03/17 00:30 Room Air 03/02/17 05:55 21 Intake and Output 03/02/17 03/02/17 03/03/17 15:00 23:00 07:00 Intake Total 125 ml 1375 ml 50 ml Output Total 500 ml 650 ml Balance 125 ml 875 ml -600 ml Exam Constitutional: alert, oriented Respiratory: clear to auscultation, intercostal retraction, normal air movement Cardiovascular: nl pulses, regular rate and rhythm Gastrointestinal: non-tender, soft, + colostomy Musculoskeletal: nl extremities to inspection Extremities: normal pulses 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: TEARER PRESS CLIPPING II-XII intact, nl mental status, nl speech, nl strength Results Result Diagram: 03/03/17 0739 03/03/17 0702 Results 24 hrs Laboratory Tests Test 03/02/17 17:08 03/02/17 20:00 03/03/17 07:00 03/03/17 07:02 Sodium Level 124 L 129 L Potassium Level 2.6 #*L 2.3 *L Chloride Level 93 #L 100 Carbon Dioxide Level 20 L 21 Anion Gap 14 10 Blood Urea Nitrogen 40 #H 22 #H Creatinine 1.35 H 0.97 Glucose Level 89 # 75 Calcium Level 7.7 L 7.1 L Urine Osmolality 355 Urine Random Sodium 24 L Phosphorus Level 2.2 L Magnesium Level 0.9 *L Total Bilirubin 0.2 Direct Bilirubin 0.00 Indirect Bilirubin 0.2 Aspartate Amino Transf (AST/SGOT) 39 Alanine Aminotransferase (ALT/SGPT) 38 Alkaline Phosphatase 61 # Total Protein 5.5 #L Albumin 2.9 #L Globulin 2.60 Albumin/Globulin Ratio 1.11 Test 03/03/17 07:05 03/03/17 07:39 Osmolality 267 L White Blood Count 4.9 # Red Blood Count 2.93 #L Hemoglobin 8.8 #L Hematocrit 23.3 #L Mean Corpuscular Volume 79.5 L Mean Corpuscular Hemoglobin 30.0 Mean Corpuscular Hemoglobin Concent 37.8 H Red Cell Distribution Width 11.9 Platelet Count 283 # Mean Platelet Volume 9.2 Neutrophils % 78.6 H Lymphocytes % 8.0 L Monocytes % 10.0 Eosinophils % 2.0 Basophils % 1.0 Nucleated Red Blood Cells % 0.0 Neutrophils # (Manual) 4 Lymphocytes # 0.4 L Monocytes # 0.5 Eosinophils # 0.1 Basophils # 0.1 Nucleated Red Blood Cells # 0.0 Medications Medications Current Medications Sodium Chloride (NS) 1,000 ml @ 125 mls/hr Q8H IV Last administered on t 06:41; Admin Dose 125 MLS/HR; Start 03/02/17 at 12:03 Ondansetron HCl (Zofran Inj) 4 mg Q6H PRN IV NAUSEA AND/OR VOMITING; Start at 12:30 Acetaminophen (Tylenol Tab) 650 mg Q6H PRN PO PAIN LEVEL 1-3 OR FEVER; Start at 12:30 Morphine Sulfate (morphine) 2 mg Q4H PRN IV PAIN LEVEL 7-10; Start 03/02/17 at 12:30 Famotidine (Pepcid Iv) 20 mg DAILY IV Last administered on 03/03/17 08:32; Admin Dose 20 MG; Start 03/02/17 at 14:00 Enoxaparin Sodium (Lovenox) 30 mg DAILY SC Last administered on 03/03/17 08:34 ; Admin Dose 30 MG; Start 03/03/17 at 09:00 Cyanocobalamin (Vitamin B12 Inj) 1,000 mcg Q28D IM Last administered on 16:13; Admin Dose 1,000 MCG; Start 03/02/17 at 12:30 Folic Acid (Folic Acid) 1 mg DAILY PO Last administered on 03/03/17 08:32; Admin Dose 1 MG; Start 03/03/17 at 09:00 Acetaminophen/ Hydrocodone Bitart ([place] (10/325)) 1 tab Q6H PRN PO PAIN; Start 03/02/17 at 12:30 Hydroxyzine Pamoate (Vistaril) 25 mg QHS PRN PO ITCHING; Start 03/02/17 at 12: 30 Magnesium Chloride (Mag 64) 64 mg BID PO Last administered on 03/03/17 08:32; Admin Dose 64 MG; Start 03/02/17 at 21:00 Midodrine (Proamatine) 2.5 mg BID@,17 PRN PO SBP <90 Last administered on 08:33; Admin Dose 2.5 MG; Start 03/02/17 at 12:30 Pantoprazole (Protonix Tab) 40 mg DAILY@06 PO Last administered on 03/03/17 05 :23; Admin Dose 40 MG; Start 03/03/17 at 06:00 Sodium Bicarbonate 650 mg 650 mg BID PO Last administered on 03/03/17 08:32; Admin Dose 650 MG; Start 03/02/17 at 21:00 Potassium Phosphate/Sodium Chloride (K Phos (Mm)/NS) 255 ml @ 63.75 mls/ hr ONCE ONCE IVPB ; Start 03/03/17 at 11:00; Stop 03/03/17 at 14:59 ROHAN VELÁZQUEZ MD Mar 03, 2017 14:27
--- NOTE | 2017-03-03 19:10 | PN ---
Date/Time of Note Date/Time of Note DATE: 03/03/17 TIME: 19:05 Assessment/Plan VTE Prophylaxis VTE Prophylaxis Intervention: SCD's Lines/Catheters [facility] (from [facility] Central Line Central line still needed: Yes Urinary Cath still in place: No Assessment/Plan Chief Complaint/Hosp Course Patient with a severe hypokalemia and hypomagnesemia, potassium and magnesium replacement given in the morning, continue close monitoring on telemetry floor. Patient's is hypotensive with sinus tachycardia. Continue IV fluids. Patient denies any nausea and vomiting today. Problems: Assessment/Plan -Nausea and vomiting on admission, resolved -Acute kidney injury secondary to dehydration, Dr. Spain is following in nephrology consultation. Continue IV fluids -Electrolyte imbalances -History of Hirschsprung disease -Ileostomy Further recommendations based on clinical course. Plan of care discussed with Dr. Paez Exam/Review of Systems Vital Signs Vitals Vital Signs Date Time Temp Pulse Resp B/P Pulse Ox O2 Delivery O2 Flow Rate FiO2 03/03/17 16:28 98.0 80 16 81/55 100 03/03/17 00:30 Room Air 03/02/17 05:55 21 Intake and Output 03/02/17 03/02/17 03/03/17 15:00 23:00 07:00 Intake Total 125 ml 1375 ml 50 ml Output Total 500 ml 650 ml Balance 125 ml 875 ml -600 ml Exam Constitutional: alert Head: normocephalic Neck: supple Respiratory: normal air movement Cardiovascular: nl pulses, other (Tachycardic), regular rate and rhythm Gastrointestinal: other (Ileostomy), soft Extremities: normal pulses Results Result Diagram: 03/03/17 0739 03/03/17 0702 Results 24 hrs Laboratory Tests Test 03/02/17 20:00 03/03/17 07:00 03/03/17 07:02 03/03/17 07:05 Urine Osmolality 355 Urine Random Sodium 24 L Phosphorus Level 2.2 L Magnesium Level 0.9 *L Sodium Level 129 L Potassium Level 2.3 *L Chloride Level 100 Carbon Dioxide Level 21 Anion Gap 10 Blood Urea Nitrogen 22 #H Creatinine 0.97 Glucose Level 75 Calcium Level 7.1 L Total Bilirubin 0.2 Direct Bilirubin 0.00 Indirect Bilirubin 0.2 Aspartate Amino Transf (AST/SGOT) 39 Alanine Aminotransferase (ALT/SGPT) 38 Alkaline Phosphatase 61 # Total Protein 5.5 #L Albumin 2.9 #L Globulin 2.60 Albumin/Globulin Ratio 1.11 Osmolality 267 L Test 03/03/17 07:39 White Blood Count 4.9 # Red Blood Count 2.93 #L Hemoglobin 8.8 #L Hematocrit 23.3 #L Mean Corpuscular Volume 79.5 L Mean Corpuscular Hemoglobin 30.0 Mean Corpuscular Hemoglobin Concent 37.8 H Red Cell Distribution Width 11.9 Platelet Count 283 # Mean Platelet Volume 9.2 Neutrophils % 78.6 H Lymphocytes % 8.0 L Monocytes % 10.0 Eosinophils % 2.0 Basophils % 1.0 Nucleated Red Blood Cells % 0.0 Neutrophils # (Manual) 4 Lymphocytes # 0.4 L Monocytes # 0.5 Eosinophils # 0.1 Basophils # 0.1 Nucleated Red Blood Cells # 0.0 Medications Medications Current Medications Sodium Chloride (NS) 1,000 ml @ 125 mls/hr Q8H IV Last administered on 06:41; Admin Dose 125 MLS/HR; Start 03/02/17 at 12:03 Ondansetron HCl (Zofran Inj) 4 mg Q6H PRN IV NAUSEA AND/OR VOMITING; Start at 12:30 Acetaminophen (Tylenol Tab) 650 mg Q6H PRN PO PAIN LEVEL 1-3 OR FEVER; Start at 12:30 Morphine Sulfate (morphine) 2 mg Q4H PRN IV PAIN LEVEL 7-10; Start 03/02/17 at 12:30 Famotidine (Pepcid Iv) 20 mg DAILY IV Last administered on 03/03/17 08:32; Admin Dose 20 MG; Start 03/02/17 at 14:00 Enoxaparin Sodium (Lovenox) 30 mg DAILY SC Last administered on 03/03/17 08:34 ; Admin Dose 30 MG; Start 03/03/17 at 09:00 Cyanocobalamin (Vitamin B12 Inj) 1,000 mcg Q28D IM Last administered on 16:13; Admin Dose 1,000 MCG; Start 03/02/17 at 12:30 Folic Acid (Folic Acid) 1 mg DAILY PO Last administered on 03/03/17 08:32; Admin Dose 1 MG; Start 03/03/17 at 09:00 Acetaminophen/ Hydrocodone Bitart ([place] (10/325)) 1 tab Q6H PRN PO PAIN; Start 03/02/17 at 12:30 Hydroxyzine Pamoate (Vistaril) 25 mg QHS PRN PO ITCHING; Start 03/02/17 at 12: 30 Magnesium Chloride (Mag 64) 64 mg BID PO Last administered on 03/03/17 08:32; Admin Dose 64 MG; Start 03/02/17 at 21:00 Midodrine (Proamatine) 2.5 mg BID@,17 PRN PO SBP <90 Last administered on 17:49; Admin Dose 2.5 MG; Start 03/02/17 at 12:30 Pantoprazole (Protonix Tab) 40 mg DAILY@06 PO Last administered on 03/03/17 05 :23; Admin Dose 40 MG; Start 03/03/17 at 06:00 Sodium Bicarbonate (Sodium Bicarbonate Tab) 650 mg BID PO Last administered on 03/03/17 08:32; Admin Dose 650 MG; Start 03/02/17 at 21:00 ROMI ESPINO Mar 03, 2017 19:10
[2017-03-04] VITALS (13 sets, daily range): BP systolic 85–105; BP diastolic 46–55; PULSE 83–95; RESP 16–18
[2017-03-04] MEDS: SOD CHLORIDE 0.9% 1,000 ML IV SCH ×4 (02:30→20:38)
[2017-03-04] MEDS: PANTOPRAZOLE (EC) 40 MG TAB PO SCH (06:14)
[2017-03-04] MEDS: FOLIC ACID 1 MG TAB PO SCH (08:24)
[2017-03-04] MEDS: NA BICARBONATE 650 MG TAB PO SCH ×2 (08:24→20:38)
[2017-03-04] MEDS: FAMOTIDINE 20 MG INJ IV SCH (08:24)
[2017-03-04] MEDS: MAGNESIUM CHLORIDE (SR) 64 MG TAB PO SCH ×2 (08:24→20:38)
[2017-03-04] MEDS: ENOXAPARIN 30 MG/0.3 ML SYG SC SCH (08:25)
[2017-03-04 09:11] LABS: ABNORMAL IP MESSAGE 1; BASOPHILS % 0.3 % (0.0-2.0); EOSINOPHILS # 0.1 10^3/ul (0.0-0.5); EOSINOPHILS % 1.6 % (0.0-7.0); HEMATOCRIT 24.1 % (37.0-47.0); HEMOGLOBIN 8.5 g/dl (12.0-16.0); LYMPHOCYTES # 0.4 10^3/ul (0.8-2.9); LYMPHOCYTES % 5.3 % (15.0-51.0); MEAN CORPUSCULAR HEMOGLOBIN 28.4 pg (29.0-33.0); MEAN CORPUSCULAR HGB CONC 35.3 g/dl (32.0-37.0); MEAN CORPUSCULAR VOLUME 80.6 fl (82.0-101.0); MEAN PLATELET VOLUME 8.9 fl (7.4-10.4); MONOCYTE # 0.4 10^3/ul (0.3-0.9); MONOCYTES % 6.2 % (0.0-11.0); NEUTROPHILS % 86.3 % (39.0-77.0); PLATELET COUNT 255 10^3/UL (140-415); RED BLOOD COUNT 2.99 10^6/ul (4.20-5.40); RED CELL DISTRIBUTION WIDTH 12.6 % (11.5-14.5); WHITE BLOOD COUNT 6.8 10^3/ul (4.8-10.8)
[2017-03-04 09:14] LABS: POSITIVE DIFF @See below
[2017-03-04] MEDS: MIDODRINE 2.5 MG TAB PO PRN ×2 (09:26→16:29)
[2017-03-04 09:44] LABS: CALCIUM 7.4 mg/dl (8.4-10.2); CREATININE 0.83 mg/dl (0.44-1.00); MAGNESIUM 1.9 mg/dl (1.7-2.5)
[2017-03-04] MEDS: POTASSIUM CHLORIDE 250 ML IVPB SCH ×2 (11:16→14:09)
--- NOTE | 2017-03-04 12:38 | PN ---
Date/Time of Note Date/Time of Note DATE: 03/04/17 TIME: 12:34 Assessment/Plan VTE Prophylaxis VTE Prophylaxis Intervention: SCD's Lines/Catheters [facility] Central Line Central line still needed: Yes Urinary Cath still in place: No Assessment/Plan Chief Complaint/Hosp Course Patient's continues to have electrolyte imbalances with low potassium, continue to have output from ileostomy, denies any nausea and vomiting. Assessment/Plan -Severe hypokalemia, continue potassium replacement, telemetry monitoring -Nausea and vomiting on admission, resolved -Acute kidney injury secondary to dehydration, Dr. Spain is following in nephrology consultation. Continue IV fluids -Electrolyte imbalances -History of Hirschsprung disease -Ileostomy Further recommendations based on clinical course. Plan of care discussed with Dr. Paez Problems: Exam/Review of Systems Vital Signs Vitals Vital Signs Date Time Temp Pulse Resp B/P Pulse Ox O2 Delivery O2 Flow Rate FiO2 03/04/17 12:06 89 03/04/17 11:47 97.8 17 88/54 100 03/03/17 00:30 Room Air 03/02/17 05:55 21 Intake and Output 03/03/17 03/03/17 03/04/17 15:00 23:00 07:00 Intake Total 1150 ml 1000 ml Output Total 450 ml Balance 700 ml 1000 ml Exam Constitutional: alert Head: normocephalic Neck: supple Respiratory: normal air movement Cardiovascular: nl pulses, other (Tachycardic), regular rate and rhythm Gastrointestinal: other (Ileostomy), soft Extremities: normal pulses Results Result Diagram: 03/04/17 0850 03/04/17 0850 Results 24 hrs Laboratory Tests Test 03/04/17 08:50 White Blood Count 6.8 # Red Blood Count 2.99 L Hemoglobin 8.5 L Hematocrit 24.1 L Mean Corpuscular Volume 80.6 L Mean Corpuscular Hemoglobin 28.4 L Mean Corpuscular Hemoglobin Concent 35.3 Red Cell Distribution Width 12.6 Platelet Count 255 Mean Platelet Volume 8.9 Neutrophils % 86.3 H Lymphocytes % 5.3 L Monocytes % 6.2 Eosinophils % 1.6 Basophils % 0.3 Nucleated Red Blood Cells % 0.0 Neutrophils # (Manual) 6 Lymphocytes # 0.4 L Monocytes # 0.4 Eosinophils # 0.1 Basophils # 0.0 Nucleated Red Blood Cells # 0.0 Sodium Level 132 L Potassium Level 2.0 *L Chloride Level 96 L Carbon Dioxide Level 25 Anion Gap 13 Blood Urea Nitrogen 9 # Creatinine 0.83 Glucose Level 106 Calcium Level 7.4 L Magnesium Level 1.9 Medications Medications Current Medications Sodium Chloride (NS) 1,000 ml @ 125 mls/hr Q8H IV Last administered on 11:17; Admin Dose 125 MLS/HR; Start 03/02/17 at 12:03 Ondansetron HCl (Zofran Inj) 4 mg Q6H PRN IV NAUSEA AND/OR VOMITING; Start at 12:30 Acetaminophen (Tylenol Tab) 650 mg Q6H PRN PO PAIN LEVEL 1-3 OR FEVER; Start at 12:30 Morphine Sulfate (morphine) 2 mg Q4H PRN IV PAIN LEVEL 7-10; Start 03/02/17 at 12:30 Famotidine (Pepcid Iv) 20 mg DAILY IV Last administered on 03/04/17 08:24; Admin Dose 20 MG; Start 03/02/17 at 14:00 Enoxaparin Sodium (Lovenox) 30 mg DAILY SC Last administered on 03/04/17 08:25 ; Admin Dose 30 MG; Start 03/03/17 at 09:00 Cyanocobalamin (Vitamin B12 Inj) 1,000 mcg Q28D IM Last administered on 16:13; Admin Dose 1,000 MCG; Start 03/02/17 at 12:30 Folic Acid (Folic Acid) 1 mg DAILY PO Last administered on 03/04/17 08:24; Admin Dose 1 MG; Start 03/03/17 at 09:00 Acetaminophen/ Hydrocodone Bitart ([place] (10/325)) 1 tab Q6H PRN PO PAIN; Start 03/02/17 at 12:30 Hydroxyzine Pamoate (Vistaril) 25 mg QHS PRN PO ITCHING; Start 03/02/17 at 12: 30 Magnesium Chloride (Mag 64) 64 mg BID PO Last administered on 03/04/17 08:24; Admin Dose 64 MG; Start 03/02/17 at 21:00 Midodrine (Proamatine) 2.5 mg BID@ PRN PO SBP <90 Last administered on 09:26; Admin Dose 2.5 MG; Start 03/02/17 at 12:30 Pantoprazole (Protonix Tab) 40 mg DAILY@06 PO Last administered on 03/04/17 06 :14; Admin Dose 40 MG; Start 03/03/17 at 06:00 Sodium Bicarbonate 650 mg 650 mg BID PO Last administered on 03/04/17 08:24; Admin Dose 650 MG; Start 03/02/17 at 21:00 Potassium Chloride (KCl 40 MEQ/250 ML NS) 250 ml @ 62.5 mls/hr Q4H IVPB Last administered on 03/04/17 11:16; Admin Dose 62.5 MLS/HR; Start 03/04/17 at 10:30 ; Stop 03/04/17 at 18:29 ROMI ESPINO Mar 04, 2017 12:38
--- NOTE | 2017-03-04 22:06 | CONS ---
Date/Time of Note Date/Time of Note DATE: 03/04/17 TIME: 22:05 Assessment/Plan Assessment/Plan Chief Complaint/Hosp Course Patient with Hirshsprung's disease comes in with abdominal pain, nausea/vomiting , and dehydration. Patient has been admitted multiple times in the past for the same. she was noted to have acute hyperkalemi and renal has been consulted for K 6.0, Cr 2.56. Problems: Additional Assessment/Plan 1. acute Kidney injury due to severe prerenal azotemia 2. Acute Hyperkalemia with K 6.0 to now Hypokalemic 3. Nausea,vomiting 4. Hypomagnesemia 5. Metabolic acidosis 6. H/o Hirschsprung disease s/p colostomy 7. Hypomagnesemia severe plan: Continue current care, IVF< expecting cr to imrpove with IVF hydration KCl 40mEQ IV x 2, mag normal today , monitor K now, there is a risk of Hyperkalemia with K repalcement after Magnesium is normal will follow up Consultation Date/Type/Reason Admit Date/Time Mar 02, 2017 at 05:33 Initial Consult Date 03/02/17 Type of Consultation: NEPHROLOGY Referring Provider: GINGER MOSES 24 HR Interval Summary Free Text/Dictation Mag normal, K still low, BP stable Exam/Review of Systems Vital Signs Vitals Vital Signs Date Time Temp Pulse Resp B/P Pulse Ox O2 Delivery O2 Flow Rate FiO2 03/04/17 19:43 98.9 99 18 89/52 100 03/03/17 00:30 Room Air 03/02/17 05:55 21 Intake and Output 03/03/17 03/03/17 03/04/17 15:00 23:00 07:00 Intake Total 1150 ml 1000 ml Output Total 450 ml Balance 700 ml 1000 ml Results Result Diagram: 03/04/17 0850 03/04/17 0850 Results 24 hrs Laboratory Tests Test 03/04/17 08:50 White Blood Count 6.8 # Red Blood Count 2.99 L Hemoglobin 8.5 L Hematocrit 24.1 L Mean Corpuscular Volume 80.6 L Mean Corpuscular Hemoglobin 28.4 L Mean Corpuscular Hemoglobin Concent 35.3 Red Cell Distribution Width 12.6 Platelet Count 255 Mean Platelet Volume 8.9 Neutrophils % 86.3 H Lymphocytes % 5.3 L Monocytes % 6.2 Eosinophils % 1.6 Basophils % 0.3 Nucleated Red Blood Cells % 0.0 Neutrophils # (Manual) 6 Lymphocytes # 0.4 L Monocytes # 0.4 Eosinophils # 0.1 Basophils # 0.0 Nucleated Red Blood Cells # 0.0 Sodium Level 132 L Potassium Level 2.0 *L Chloride Level 96 L Carbon Dioxide Level 25 Anion Gap 13 Blood Urea Nitrogen 9 # Creatinine 0.83 Glucose Level 106 Calcium Level 7.4 L Magnesium Level 1.9 Medications Medications Current Medications Sodium Chloride (NS) 1,000 ml @ 125 mls/hr Q8H IV Last administered on 20:38; Admin Dose 125 MLS/HR; Start 03/02/17 at 12:03 Ondansetron HCl (Zofran Inj) 4 mg Q6H PRN IV NAUSEA AND/OR VOMITING; Start at 12:30 Acetaminophen (Tylenol Tab) 650 mg Q6H PRN PO PAIN LEVEL 1-3 OR FEVER; Start at 12:30 Morphine Sulfate (morphine) 2 mg Q4H PRN IV PAIN LEVEL 7-10; Start 03/02/17 at 12:30 Enoxaparin Sodium (Lovenox) 30 mg DAILY SC Last administered on 03/04/17 08:25 ; Admin Dose 30 MG; Start 03/03/17 at 09:00 Cyanocobalamin (Vitamin B12 Inj) 1,000 mcg Q28D IM Last administered on 16:13; Admin Dose 1,000 MCG; Start 03/02/17 at 12:30 Folic Acid (Folic Acid) 1 mg DAILY PO Last administered on 03/04/17 08:24; Admin Dose 1 MG; Start 03/03/17 at 09:00 Acetaminophen/ Hydrocodone Bitart ([place] (10/325)) 1 tab Q6H PRN PO PAIN; Start 03/02/17 at 12:30 Hydroxyzine Pamoate (Vistaril) 25 mg QHS PRN PO ITCHING; Start 03/02/17 at 12: 30 Magnesium Chloride (Mag 64) 64 mg BID PO Last administered on 03/04/17 20:38; Admin Dose 64 MG; Start 03/02/17 at 21:00 Midodrine (Proamatine) 2.5 mg BID@,17 PRN PO SBP <90 Last administered on 16:29; Admin Dose 2.5 MG; Start 03/02/17 at 12:30 Pantoprazole (Protonix Tab) 40 mg DAILY@06 PO Last administered on 03/04/17 06 :14; Admin Dose 40 MG; Start 03/03/17 at 06:00 Sodium Bicarbonate (Sodium Bicarbonate Tab) 650 mg BID PO Last administered on 03/04/17 20:38; Admin Dose 650 MG; Start 03/02/17 at 21:00 ROHAN VELÁZQUEZ MD Mar 04, 2017 22:06
[2017-03-05] VITALS (11 sets, daily range): BP systolic 80–92; BP diastolic 48–55; PULSE 84–102; RESP 16–19
[2017-03-05] MEDS: SOD CHLORIDE 0.9% 1,000 ML IV SCH ×3 (04:05→20:03)
[2017-03-05] MEDS: PANTOPRAZOLE (EC) 40 MG TAB PO SCH (05:49)
[2017-03-05 08:49] LABS: ABNORMAL IP MESSAGE 1; BASOPHILS % 0.6 % (0.0-2.0); EOSINOPHILS # 0.1 10^3/ul (0.0-0.5); EOSINOPHILS % 2.3 % (0.0-7.0); HEMATOCRIT 24.3 % (37.0-47.0); HEMOGLOBIN 8.4 g/dl (12.0-16.0); LYMPHOCYTES # 0.4 10^3/ul (0.8-2.9); LYMPHOCYTES % 8.1 % (15.0-51.0); MEAN CORPUSCULAR HEMOGLOBIN 28.7 pg (29.0-33.0); MEAN CORPUSCULAR HGB CONC 34.6 g/dl (32.0-37.0); MEAN CORPUSCULAR VOLUME 82.9 fl (82.0-101.0); MEAN PLATELET VOLUME 9.2 fl (7.4-10.4); MONOCYTE # 0.3 10^3/ul (0.3-0.9); MONOCYTES % 6.2 % (0.0-11.0); NEUTROPHILS % 82.6 % (39.0-77.0); PLATELET COUNT 252 10^3/UL (140-415); RED BLOOD COUNT 2.93 10^6/ul (4.20-5.40); RED CELL DISTRIBUTION WIDTH 12.7 % (11.5-14.5); WHITE BLOOD COUNT 5.2 10^3/ul (4.8-10.8)
[2017-03-05 08:51] LABS: POSITIVE DIFF @See below
[2017-03-05] MEDS: NA BICARBONATE 650 MG TAB PO SCH ×2 (08:56→20:54)
[2017-03-05] MEDS: MAGNESIUM CHLORIDE (SR) 64 MG TAB PO SCH ×2 (08:56→20:54)
[2017-03-05] MEDS: FOLIC ACID 1 MG TAB PO SCH (08:56)
[2017-03-05] MEDS: ENOXAPARIN 30 MG/0.3 ML SYG SC SCH (08:58)
[2017-03-05 09:16] LABS: PHOSPHORUS 1.8 mg/dl (2.5-4.9)
[2017-03-05 09:19] LABS: ALBUMIN 2.5 g/dl (3.3-4.9); ALBUMIN/GLOBULIN RATIO 0.92; CALCIUM 7.9 mg/dl (8.4-10.2); CREATININE 0.89 mg/dl (0.44-1.00); TOTAL PROTEIN 5.2 g/dl (6.1-8.1)
[2017-03-05] MEDS ORDERED: POTASSIUM CHLORIDE 250 ML IVPB ONE (10:00)
[2017-03-05] MEDS ORDERED: MAGNESIUM SULFATE 4 GM/100 ML 100 ML IVPB ONE (12:00)
[2017-03-05] MEDS: MIDODRINE 2.5 MG TAB PO PRN (12:01)
--- NOTE | 2017-03-05 14:26 | PN ---
Date/Time of Note Date/Time of Note DATE: 03/05/17 TIME: 14:22 Assessment/Plan VTE Prophylaxis VTE Prophylaxis Intervention: SCD's Lines/Catheters [facility] Central Line Central line still needed: Yes Urinary Cath still in place: No Assessment/Plan Chief Complaint/Hosp Course Patient's continues to have electrolytes abnormalities, replacement and management per nephrology. Patient denies nausea and vomiting. Continue telemetry monitoring. Assessment/Plan -Severe hypokalemia, continue potassium replacement, telemetry monitoring -Nausea and vomiting on admission, resolved -Acute kidney injury secondary to dehydration, Dr. Spain is following in nephrology consultation. Continue IV fluids -Electrolyte imbalances -History of Hirschsprung disease -Ileostomy Further recommendations based on clinical course. Plan of care discussed with Dr. Paez Problems: Exam/Review of Systems Vital Signs Vitals Vital Signs Date Time Temp Pulse Resp B/P Pulse Ox O2 Delivery O2 Flow Rate FiO2 03/05/17 12:04 98.4 89 17 80/48 100 03/03/17 00:30 Room Air 03/02/17 05:55 21 Intake and Output 03/04/17 03/04/17 03/05/17 15:00 23:00 07:00 Intake Total 250 ml 1950 ml Output Total 700 ml Balance 250 ml 1250 ml Exam Constitutional: alert Head: normocephalic Neck: supple Respiratory: normal air movement Cardiovascular: nl pulses, other (Tachycardic), regular rate and rhythm Gastrointestinal: other (Ileostomy), soft Extremities: normal pulses Results Result Diagram: 03/05/17 0749 03/05/17 0749 Results 24 hrs Laboratory Tests Test 03/05/17 07:49 White Blood Count 5.2 # Red Blood Count 2.93 L Hemoglobin 8.4 L Hematocrit 24.3 L Mean Corpuscular Volume 82.9 Mean Corpuscular Hemoglobin 28.7 L Mean Corpuscular Hemoglobin Concent 34.6 Red Cell Distribution Width 12.7 Platelet Count 252 Mean Platelet Volume 9.2 Neutrophils % 82.6 H Lymphocytes % 8.1 L Monocytes % 6.2 Eosinophils % 2.3 Basophils % 0.6 Nucleated Red Blood Cells % 0.0 Neutrophils # (Manual) 4 Lymphocytes # 0.4 L Monocytes # 0.3 Eosinophils # 0.1 Basophils # 0.0 Nucleated Red Blood Cells # 0.0 Sodium Level 138 Potassium Level 3.0 L Chloride Level 104 Carbon Dioxide Level 24 Anion Gap 13 Blood Urea Nitrogen 6 L Creatinine 0.89 Glucose Level 110 Calcium Level 7.9 L Phosphorus Level 1.8 L Magnesium Level 1.0 L Total Bilirubin 0.0 L Direct Bilirubin 0.00 Indirect Bilirubin 0.0 Aspartate Amino Transf (AST/SGOT) 28 Alanine Aminotransferase (ALT/SGPT) 29 Alkaline Phosphatase 52 Total Protein 5.2 L Albumin 2.5 L Globulin 2.70 Albumin/Globulin Ratio 0.92 Medications Medications Current Medications Sodium Chloride (NS) 1,000 ml @ 125 mls/hr Q8H IV Last administered on 08:57; Admin Dose 125 MLS/HR; Start 03/02/17 at 12:03 Ondansetron HCl (Zofran Inj) 4 mg Q6H PRN IV NAUSEA AND/OR VOMITING; Start at 12:30 Acetaminophen (Tylenol Tab) 650 mg Q6H PRN PO PAIN LEVEL 1-3 OR FEVER; Start at 12:30 Morphine Sulfate (morphine) 2 mg Q4H PRN IV PAIN LEVEL 7-10; Start 03/02/17 at 12:30 Enoxaparin Sodium (Lovenox) 30 mg DAILY SC Last administered on 03/05/17 08:58 ; Admin Dose 30 MG; Start 03/03/17 at 09:00 Cyanocobalamin (Vitamin B12 Inj) 1,000 mcg Q28D IM Last administered on 16:13; Admin Dose 1,000 MCG; Start 03/02/17 at 12:30 Folic Acid (Folic Acid) 1 mg DAILY PO Last administered on 03/05/17 08:56; Admin Dose 1 MG; Start 03/03/17 at 09:00 Acetaminophen/ Hydrocodone Bitart ([place] (10/325)) 1 tab Q6H PRN PO PAIN; Start 03/02/17 at 12:30 Hydroxyzine Pamoate (Vistaril) 25 mg QHS PRN PO ITCHING; Start 03/02/17 at 12: 30 Magnesium Chloride (Mag 64) 64 mg BID PO Last administered on 03/05/17 08:56; Admin Dose 64 MG; Start 03/02/17 at 21:00 Midodrine (Proamatine) 2.5 mg BID@,17 PRN PO SBP <90 Last administered on 12:01; Admin Dose 2.5 MG; Start 03/02/17 at 12:30 Pantoprazole (Protonix Tab) 40 mg DAILY@06 PO Last administered on 03/05/17 05 :49; Admin Dose 40 MG; Start 03/03/17 at 06:00 Sodium Bicarbonate 650 mg 650 mg BID PO Last administered on 03/05/17 08:56; Admin Dose 650 MG; Start 03/02/17 at 21:00 Magnesium Sulfate 100 ml @ 25 mls/hr ONCE ONCE IVPB Last administered on 03/05 12:01; Admin Dose 25 MLS/HR; Start 03/05/17 at 12:00; Stop 03/05/17 at 15: 59 Potassium Chloride/Sodium Chloride (KCl/NS) 165 ml @ 55 mls/hr ONCE ONCE IV ; Start 03/05/17 at 15:00; Stop 03/05/17 at 17:59 ROMI ESPINO Mar 05, 2017 14:26
[2017-03-05] MEDS ORDERED: KCL 30 MEQ in NS 150 ML IV ONE (15:00)
--- NOTE | 2017-03-05 17:33 | CONS ---
Date/Time of Note Date/Time of Note DATE: 03/05/17 TIME: 17:31 Assessment/Plan Assessment/Plan Chief Complaint/Hosp Course Patient with Hirshsprung's disease comes in with abdominal pain, nausea/vomiting , and dehydration. Patient has been admitted multiple times in the past for the same. she was noted to have acute hyperkalemi and renal has been consulted for K 6.0, Cr 2.56. Problems: Additional Assessment/Plan 1. acute Kidney injury due to severe prerenal azotemia 2. Acute Hyperkalemia with K 6.0 to now Hypokalemic 3. Nausea,vomiting 4. Hypomagnesemia 5. Metabolic acidosis 6. H/o Hirschsprung disease s/p colostomy 7. Hypomagnesemia severe plan: Continue current care, IVF< expecting cr to imrpove with IVF hydration magnesium sulfate 4 gram IV x 1 today, then KCl 40mEQ IV X 1 will start magnesium oxide 400mg po dialy, K Chloride SR 20MEQ PO BID will follow up Consultation Date/Type/Reason Admit Date/Time Mar 02, 2017 at 05:33 Initial Consult Date 03/02/17 Type of Consultation: NEPHROLOGY Referring Provider: GINGER MOSES Exam/Review of Systems Vital Signs Vitals Vital Signs Date Time Temp Pulse Resp B/P Pulse Ox O2 Delivery O2 Flow Rate FiO2 03/05/17 16:00 102 03/05/17 15:35 97.6 16 90/54 100 03/03/17 00:30 Room Air 03/02/17 05:55 21 Intake and Output 03/04/17 03/04/17 03/05/17 15:00 23:00 07:00 Intake Total 250 ml 1950 ml Output Total 700 ml Balance 250 ml 1250 ml Results Result Diagram: 03/05/17 0749 03/05/17 0749 Results 24 hrs Laboratory Tests Test 03/05/17 07:49 White Blood Count 5.2 # Red Blood Count 2.93 L Hemoglobin 8.4 L Hematocrit 24.3 L Mean Corpuscular Volume 82.9 Mean Corpuscular Hemoglobin 28.7 L Mean Corpuscular Hemoglobin Concent 34.6 Red Cell Distribution Width 12.7 Platelet Count 252 Mean Platelet Volume 9.2 Neutrophils % 82.6 H Lymphocytes % 8.1 L Monocytes % 6.2 Eosinophils % 2.3 Basophils % 0.6 Nucleated Red Blood Cells % 0.0 Neutrophils # (Manual) 4 Lymphocytes # 0.4 L Monocytes # 0.3 Eosinophils # 0.1 Basophils # 0.0 Nucleated Red Blood Cells # 0.0 Sodium Level 138 Potassium Level 3.0 L Chloride Level 104 Carbon Dioxide Level 24 Anion Gap 13 Blood Urea Nitrogen 6 L Creatinine 0.89 Glucose Level 110 Calcium Level 7.9 L Phosphorus Level 1.8 L Magnesium Level 1.0 L Total Bilirubin 0.0 L Direct Bilirubin 0.00 Indirect Bilirubin 0.0 Aspartate Amino Transf (AST/SGOT) 28 Alanine Aminotransferase (ALT/SGPT) 29 Alkaline Phosphatase 52 Total Protein 5.2 L Albumin 2.5 L Globulin 2.70 Albumin/Globulin Ratio 0.92 Medications Medications Current Medications Sodium Chloride (NS) 1,000 ml @ 125 mls/hr Q8H IV Last administered on 08:57; Admin Dose 125 MLS/HR; Start 03/02/17 at 12:03 Ondansetron HCl (Zofran Inj) 4 mg Q6H PRN IV NAUSEA AND/OR VOMITING; Start at 12:30 Acetaminophen (Tylenol Tab) 650 mg Q6H PRN PO PAIN LEVEL 1-3 OR FEVER; Start at 12:30 Morphine Sulfate (morphine) 2 mg Q4H PRN IV PAIN LEVEL 7-10; Start 03/02/17 at 12:30 Enoxaparin Sodium (Lovenox) 30 mg DAILY SC Last administered on 03/05/17 08:58 ; Admin Dose 30 MG; Start 03/03/17 at 09:00 Cyanocobalamin (Vitamin B12 Inj) 1,000 mcg Q28D IM Last administered on 16:13; Admin Dose 1,000 MCG; Start 03/02/17 at 12:30 Folic Acid (Folic Acid) 1 mg DAILY PO Last administered on 03/05/17 08:56; Admin Dose 1 MG; Start 03/03/17 at 09:00 Acetaminophen/ Hydrocodone Bitart ([place] (10/325)) 1 tab Q6H PRN PO PAIN; Start 03/02/17 at 12:30 Hydroxyzine Pamoate (Vistaril) 25 mg QHS PRN PO ITCHING; Start 03/02/17 at 12: 30 Magnesium Chloride (Mag 64) 64 mg BID PO Last administered on 03/05/17 08:56; Admin Dose 64 MG; Start 03/02/17 at 21:00 Midodrine (Proamatine) 2.5 mg BID@,17 PRN PO SBP <90 Last administered on 12:01; Admin Dose 2.5 MG; Start 03/02/17 at 12:30 Pantoprazole (Protonix Tab) 40 mg DAILY@06 PO Last administered on 03/05/17 05 :49; Admin Dose 40 MG; Start 03/03/17 at 06:00 Sodium Bicarbonate 650 mg 650 mg BID PO Last administered on 03/05/17 08:56; Admin Dose 650 MG; Start 03/02/17 at 21:00 Potassium Chloride/Sodium Chloride (KCl/NS) 165 ml @ 55 mls/hr ONCE ONCE IV Last administered on 03/05/17 14:58; Admin Dose 55 MLS/HR; Start 03/05/17 at 15 :00; Stop 03/05/17 at 17:59 ROHAN VELÁZQUEZ MD Mar 05, 2017 17:33
[2017-03-05] MEDS ORDERED: POTASSIUM PHOSPHATE 15 MM in SOD CHLORIDE 0.9% 250 ML IVPB ONE (19:00)
[2017-03-05] MEDS: MAGNESIUM OXIDE 400 MG TAB PO SCH (20:54)
[2017-03-05] MEDS: POTASSIUM CHLORIDE (SR) 20 MEQ TAB PO SCH (20:54)
[2017-03-06] VITALS (13 sets, daily range): BP systolic 85–123; BP diastolic 46–58; PULSE 79–134; RESP 18–20
[2017-03-06] MEDS: SOD CHLORIDE 0.9% 1,000 ML IV SCH ×3 (03:04→20:03)
[2017-03-06] MEDS: PANTOPRAZOLE (EC) 40 MG TAB PO SCH (06:20)
[2017-03-06 09:09] LABS: CALCIUM 7.7 mg/dl (8.4-10.2); CREATININE 0.82 mg/dl (0.44-1.00)
[2017-03-06] MEDS: MAGNESIUM CHLORIDE (SR) 64 MG TAB PO SCH ×2 (09:29→21:32)
[2017-03-06] MEDS: MAGNESIUM OXIDE 400 MG TAB PO SCH ×2 (09:29→21:32)
[2017-03-06] MEDS: FOLIC ACID 1 MG TAB PO SCH (09:30)
[2017-03-06] MEDS: POTASSIUM CHLORIDE (SR) 20 MEQ TAB PO SCH ×3 (09:30→21:32)
[2017-03-06] MEDS: ENOXAPARIN 30 MG/0.3 ML SYG SC SCH (09:38)
[2017-03-06] MEDS: NA BICARBONATE 650 MG TAB PO SCH ×2 (09:59→21:32)
--- NOTE | 2017-03-06 10:02 | PN ---
Date/Time of Note Date/Time of Note DATE: 03/06/17 TIME: 09:53 Assessment/Plan VTE Prophylaxis VTE Prophylaxis Intervention: other Lines/Catheters IV Catheter Type (from Nrsg): Central Line Central line still needed: Yes Urinary Cath still in place: No Assessment/Plan Assessment/Plan -Hypokalemia, continue potassium replacement, telemetry monitoring - per nephro - Hypophosphatemia - per nephro- - Hypomagnesium- patient on oral Mag supplements - per nephro -Nausea and vomiting on admission, resolved -Acute kidney injury secondary to dehydration, Dr. Spain is following in nephrology consultation. Continue IV fluids -History of Hirschsprung disease -Ileostomy Further recommendations based on clinical course. Plan of care discussed with Dr. Paez Subjective 24 Hr Interval Summary Free Text/Dictation lying in bed, NAD, seems comfortable.afebrile, dw staff Constitutional: requiring IVF Respiratory: no complaints Cardiovascular: no complaints Gastrointestinal: nausea (sometimes, better now) Genitourinary: no complaints Musculoskeletal: no complaints Neurologic: no complaints Exam/Review of Systems Vital Signs Vitals Vital Signs Date Time Temp Pulse Resp B/P Pulse Ox O2 Delivery O2 Flow Rate FiO2 03/06/17 08:35 80 03/06/17 08:01 98.0 18 96/52 90 03/03/17 00:30 Room Air Intake and Output 03/05/17 03/05/17 03/06/17 15:00 23:00 07:00 Intake Total 1650 ml 1600 ml Output Total 650 ml Balance 1000 ml 1600 ml Exam Constitutional: alert, oriented Psych: nl mood/affect Gastrointestinal: non-tender, other (sp Ileostomy), soft Musculoskeletal: nl extremities to inspection Extremities: normal pulses 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: nl mental status, nl speech Results Result Diagram: 03/05/17 0749 03/05/17 0749 Medications Medications Current Medications Sodium Chloride (NS) 1,000 ml @ 125 mls/hr Q8H IV Last administered on t 03:04; Admin Dose 125 MLS/HR; Start 03/02/17 at 12:03 Ondansetron HCl (Zofran Inj) 4 mg Q6H PRN IV NAUSEA AND/OR VOMITING; Start at 12:30 Acetaminophen (Tylenol Tab) 650 mg Q6H PRN PO PAIN LEVEL 1-3 OR FEVER; Start at 12:30 Morphine Sulfate (morphine) 2 mg Q4H PRN IV PAIN LEVEL 7-10; Start 03/02/17 at 12:30 Enoxaparin Sodium (Lovenox) 30 mg DAILY SC Last administered on 03/06/17 09:38 ; Admin Dose 30 MG; Start 03/03/17 at 09:00 Cyanocobalamin (Vitamin B12 Inj) 1,000 mcg Q28D IM Last administered on 16:13; Admin Dose 1,000 MCG; Start 03/02/17 at 12:30 Folic Acid (Folic Acid) 1 mg DAILY PO Last administered on 03/06/17 09:30; Admin Dose 1 MG; Start 03/03/17 at 09:00 Acetaminophen/ Hydrocodone Bitart ([place] (10/325)) 1 tab Q6H PRN PO PAIN; Start 03/02/17 at 12:30 Hydroxyzine Pamoate (Vistaril) 25 mg QHS PRN PO ITCHING; Start 03/02/17 at 12: 30 Magnesium Chloride (Mag 64) 64 mg BID PO Last administered on 03/06/17 09:29; Admin Dose 64 MG; Start 03/02/17 at 21:00 Midodrine (Proamatine) 2.5 mg BID@ PRN PO SBP <90 Last administered on 12:01; Admin Dose 2.5 MG; Start 03/02/17 at 12:30 Pantoprazole (Protonix Tab) 40 mg DAILY@06 PO Last administered on 03/06/17 06 :20; Admin Dose 40 MG; Start 03/03/17 at 06:00 Sodium Bicarbonate (Sodium Bicarbonate Tab) 650 mg BID PO Last administered on 03/05/17 20:54; Admin Dose 650 MG; Start 03/02/17 at 21:00 Potassium Chloride (Klor-Con 20) 20 meq TID PO Last administered on 03/06/17 09:30; Admin Dose 20 MEQ; Start 03/05/17 at 21:00 Magnesium Oxide (Mag-Ox 400) 400 mg BID PO Last administered on 03/06/17 09:29 ; Admin Dose 400 MG; Start 03/05/17 at 21:00 DEVENDRA GOMES Mar 06, 2017 10:02
[2017-03-06 10:09] LABS: POTASSIUM 2.8 mmol/L (3.5-5.1)
[2017-03-06] MEDS ORDERED: POTASSIUM CHLORIDE 20 MEQ in SOD CHLORIDE 0.9% 100 ML IVPB ONE (10:30)
[2017-03-06 11:29] LABS: MAGNESIUM 1.6 mg/dl (1.7-2.5); PHOSPHORUS 2.4 mg/dl (2.5-4.9)
[2017-03-06] MEDS ORDERED: POTASSIUM CHLORIDE 50 ML IVPB SCH (12:00)
[2017-03-06] MEDS ORDERED: MAGNESIUM SULFATE 2 GM/50 ML 50 ML IVPB ONE (12:30)
[2017-03-06] MEDS ORDERED: POTASSIUM PHOSPHATE 15 MM in SOD CHLORIDE 0.9% 250 ML IVPB SCH (14:00)
--- NOTE | 2017-03-06 21:11 | CONS ---
Date/Time of Note Date/Time of Note DATE: 03/06/17 TIME: 21:08 Assessment/Plan Assessment/Plan Additional Assessment/Plan 1. acute Kidney injury due to severe prerenal azotemia 2. Acute Hyperkalemia with K 6.0 to now Hypokalemic 3. Nausea,vomiting 4. Hypomagnesemia 5. Metabolic acidosis 6. H/o Hirschsprung disease s/p colostomy 7. Hypomagnesemia severe plan: Continue current care, IVF, creatinine improved to normal with IVF KCl 40mEQ IV x 1, magnesium sulfate 2 gram iV x 1, K phosphate 15 mMMOL IV x 1 now start magnesium oxide 400mg po BID and KCl 20mEQ BID will follow up Consultation Date/Type/Reason Admit Date/Time Mar 02, 2017 at 05:33 Initial Consult Date 03/02/17 Type of Consultation: NEPHROLOGY Referring Provider: GINGER MOSES 24 HR Interval Summary Free Text/Dictation no acute events, BP stable Exam/Review of Systems Vital Signs Vitals Vital Signs Date Time Temp Pulse Resp B/P Pulse Ox O2 Delivery O2 Flow Rate FiO2 03/06/17 20:46 98 03/06/17 19:51 97.7 18 107/54 100 03/03/17 00:30 Room Air Intake and Output 03/05/17 03/05/17 03/06/17 15:00 23:00 07:00 Intake Total 1650 ml 1600 ml Output Total 650 ml Balance 1000 ml 1600 ml Exam Constitutional: alert, oriented Psych: no complaints Respiratory: clear to auscultation, intercostal retraction, normal air movement Cardiovascular: nl pulses, regular rate and rhythm Gastrointestinal: non-tender, soft Musculoskeletal: nl extremities to inspection Extremities: normal pulses 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: 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 HYGIENIST II-XII 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, nl mental status, nl speech, nl strength Skin: nl turgor Lymph: nl lymph nodes Results Result Diagram: 03/05/17 0749 03/06/17 0757 Results 24 hrs Laboratory Tests Test 03/06/17 07:57 Sodium Level 137 Potassium Level 2.8 *L Chloride Level 107 Carbon Dioxide Level 25 Anion Gap 8 Blood Urea Nitrogen 4 L Creatinine 0.82 Glucose Level 78 Calcium Level 7.7 L Phosphorus Level 2.4 L Magnesium Level 1.6 L Medications Medications Current Medications Sodium Chloride (NS) 1,000 ml @ 125 mls/hr Q8H IV Last administered on 10:03; Admin Dose 125 MLS/HR; Start 03/02/17 at 12:03 Ondansetron HCl (Zofran Inj) 4 mg Q6H PRN IV NAUSEA AND/OR VOMITING; Start at 12:30 Acetaminophen (Tylenol Tab) 650 mg Q6H PRN PO PAIN LEVEL 1-3 OR FEVER; Start at 12:30 Morphine Sulfate (morphine) 2 mg Q4H PRN IV PAIN LEVEL 7-10; Start 03/02/17 at 12:30 Enoxaparin Sodium (Lovenox) 30 mg DAILY SC Last administered on 03/06/17 09:38 ; Admin Dose 30 MG; Start 03/03/17 at 09:00 Cyanocobalamin (Vitamin B12 Inj) 1,000 mcg Q28D IM Last administered on 16:13; Admin Dose 1,000 MCG; Start 03/02/17 at 12:30 Folic Acid (Folic Acid) 1 mg DAILY PO Last administered on 03/06/17 09:30; Admin Dose 1 MG; Start 03/03/17 at 09:00 Acetaminophen/ Hydrocodone Bitart ([place] (10/325)) 1 tab Q6H PRN PO PAIN; Start 03/02/17 at 12:30 Hydroxyzine Pamoate (Vistaril) 25 mg QHS PRN PO ITCHING; Start 03/02/17 at 12: 30 Magnesium Chloride (Mag 64) 64 mg BID PO Last administered on 03/06/17 09:29; Admin Dose 64 MG; Start 03/02/17 at 21:00 Midodrine (Proamatine) 2.5 mg BID@ PRN PO SBP <90 Last administered on 12:01; Admin Dose 2.5 MG; Start 03/02/17 at 12:30 Pantoprazole (Protonix Tab) 40 mg DAILY@06 PO Last administered on 03/06/17 06 :20; Admin Dose 40 MG; Start 03/03/17 at 06:00 Sodium Bicarbonate (Sodium Bicarbonate Tab) 650 mg BID PO Last administered on 03/06/17 09:59; Admin Dose 650 MG; Start 03/02/17 at 21:00 Potassium Chloride (Klor-Con 20) 20 meq TID PO Last administered on 03/06/17 13:05; Admin Dose 20 MEQ; Start 03/05/17 at 21:00 Magnesium Oxide (Mag-Ox 400) 400 mg BID PO Last administered on 03/06/17 09:29 ; Admin Dose 400 MG; Start 03/05/17 at 21:00 ROHAN VELÁZQUEZ MD Mar 06, 2017 21:11
[2017-03-07] VITALS (10 sets, daily range): BP systolic 81–121; BP diastolic 48–60; PULSE 84–112; RESP 18–20
[2017-03-07] MEDS: hydrOXYzine PAMOATE 25 MG CAP PO PRN (00:24)
[2017-03-07] MEDS: SOD CHLORIDE 0.9% 1,000 ML IV SCH ×3 (03:58→21:17)
[2017-03-07] MEDS: PANTOPRAZOLE (EC) 40 MG TAB PO SCH (06:26)
[2017-03-07] MEDS: MAGNESIUM CHLORIDE (SR) 64 MG TAB PO SCH ×2 (09:00→21:00)
[2017-03-07] MEDS: FOLIC ACID 1 MG TAB PO SCH (09:04)
[2017-03-07] MEDS: MAGNESIUM OXIDE 400 MG TAB PO SCH (09:04)
[2017-03-07] MEDS: POTASSIUM CHLORIDE (SR) 20 MEQ TAB PO SCH ×3 (09:05→21:57)
[2017-03-07] MEDS: NA BICARBONATE 650 MG TAB PO SCH ×2 (09:05→21:57)
[2017-03-07] MEDS: ENOXAPARIN 30 MG/0.3 ML SYG SC SCH (09:14)
[2017-03-07 09:23] LABS: BASOPHILS % 0.4 % (0.0-2.0); EOSINOPHILS # 0.2 10^3/ul (0.0-0.5); EOSINOPHILS % 4.2 % (0.0-7.0); HEMATOCRIT 23.6 % (37.0-47.0); HEMOGLOBIN 8.2 g/dl (12.0-16.0); LYMPHOCYTES # 0.6 10^3/ul (0.8-2.9); LYMPHOCYTES % 12.4 % (15.0-51.0); MEAN CORPUSCULAR HEMOGLOBIN 29.8 pg (29.0-33.0); MEAN CORPUSCULAR HGB CONC 34.7 g/dl (32.0-37.0); MEAN CORPUSCULAR VOLUME 85.8 fl (82.0-101.0); MEAN PLATELET VOLUME 8.8 fl (7.4-10.4); MONOCYTE # 0.3 10^3/ul (0.3-0.9); MONOCYTES % 5.4 % (0.0-11.0); NEUTROPHILS % 77.4 % (39.0-77.0); PLATELET COUNT 217 10^3/UL (140-415); RED BLOOD COUNT 2.75 10^6/ul (4.20-5.40); RED CELL DISTRIBUTION WIDTH 13.1 % (11.5-14.5)
[2017-03-07 09:44] LABS: CALCIUM 7.9 mg/dl (8.4-10.2); CREATININE 0.78 mg/dl (0.44-1.00); MAGNESIUM 1.2 mg/dl (1.7-2.5); PHOSPHORUS 2.4 mg/dl (2.5-4.9); POTASSIUM 3.8 mmol/L (3.5-5.1)
--- NOTE | 2017-03-07 17:31 | PN ---
Date/Time of Note Date/Time of Note DATE: 03/07/17 TIME: 17:30 Assessment/Plan VTE Prophylaxis VTE Prophylaxis Intervention: SCD's Lines/Catheters IV [facility] Type (from [facility]): Central Line Central line still needed: Yes Urinary Cath still in place: No Assessment/Plan Chief Complaint/Hosp Course Patient's continues to have a large output from ileostomy, denies any nausea and vomiting, continue to monitor electrolytes, continue telemetry. Assessment/Plan -Severe hypokalemia, continue potassium replacement, telemetry monitoring -Nausea and vomiting on admission, resolved -Acute kidney injury secondary to dehydration, Dr. Spain is following in nephrology consultation. Continue IV fluids -Electrolyte imbalances -History of Hirschsprung disease -Ileostomy Further recommendations based on clinical course. Plan of care discussed with Dr. Paez Problems: Exam/Review of Systems Vital Signs Vitals Vital Signs Date Time Temp Pulse Resp B/P Pulse Ox O2 Delivery O2 Flow Rate FiO2 03/07/17 16:12 98 03/07/17 11:48 97.8 18 89/50 97 Intake and Output 03/06/17 03/06/17 03/07/17 15:00 23:00 07:00 Intake Total 1000 ml 1375 ml Balance 1000 ml 1375 ml Exam Constitutional: alert Head: normocephalic Neck: supple Respiratory: normal air movement Cardiovascular: nl pulses, other (Tachycardic), regular rate and rhythm Gastrointestinal: other (Ileostomy), soft Extremities: normal pulses Results Result Diagram: 03/07/17 0909 03/07/17 0912 Results 24 hrs Laboratory Tests Test 03/07/17 09:09 03/07/17 09:12 White Blood Count 5.0 Red Blood Count 2.75 L Hemoglobin 8.2 L Hematocrit 23.6 L Mean Corpuscular Volume 85.8 Mean Corpuscular Hemoglobin 29.8 Mean Corpuscular Hemoglobin Concent 34.7 Red Cell Distribution Width 13.1 Platelet Count 217 Mean Platelet Volume 8.8 Neutrophils % 77.4 H Lymphocytes % 12.4 L Monocytes % 5.4 Eosinophils % 4.2 Basophils % 0.4 Nucleated Red Blood Cells % 0.0 Neutrophils # (Manual) 3.9 Lymphocytes # 0.6 L Monocytes # 0.3 Eosinophils # 0.2 Basophils # 0.0 Nucleated Red Blood Cells # 0.0 Sodium Level 147 H Potassium Level 3.8 Chloride Level 111 H Carbon Dioxide Level 25 Anion Gap 15 # Blood Urea Nitrogen 4 L Creatinine 0.78 Glucose Level 90 Calcium Level 7.9 L Phosphorus Level 2.4 L Magnesium Level 1.2 L Medications Medications Current Medications Sodium Chloride (NS) 1,000 ml @ 125 mls/hr Q8H IV Last administered on 13:23; Admin Dose 125 MLS/HR; Start 03/02/17 at 12:03 Ondansetron HCl (Zofran Inj) 4 mg Q6H PRN IV NAUSEA AND/OR VOMITING; Start at 12:30 Acetaminophen (Tylenol Tab) 650 mg Q6H PRN PO PAIN LEVEL 1-3 OR FEVER; Start at 12:30 Morphine Sulfate (morphine) 2 mg Q4H PRN IV PAIN LEVEL 7-10; Start 03/02/17 at 12:30 Enoxaparin Sodium (Lovenox) 30 mg DAILY SC Last administered on 03/07/17 09:14 ; Admin Dose 30 MG; Start 03/03/17 at 09:00 Cyanocobalamin (Vitamin B12 Inj) 1,000 mcg Q28D IM Last administered on 16:13; Admin Dose 1,000 MCG; Start 03/02/17 at 12:30 Folic Acid (Folic Acid) 1 mg DAILY PO Last administered on 03/07/17 09:04; Admin Dose 1 MG; Start 03/03/17 at 09:00 Acetaminophen/ Hydrocodone Bitart ([place] (10/325)) 1 tab Q6H PRN PO PAIN; Start 03/02/17 at 12:30 Hydroxyzine Pamoate (Vistaril) 25 mg QHS PRN PO ITCHING Last administered on 00:24; Admin Dose 25 MG; Start 03/02/17 at 12:30 Magnesium Chloride (Mag 64) 64 mg BID PO Last administered on 03/07/17 09:00; Admin Dose 64 MG; Start 03/02/17 at 21:00 Midodrine (Proamatine) 2.5 mg BID@ PRN PO SBP <90 Last administered on 12:01; Admin Dose 2.5 MG; Start 8/20/17 at 12:30 Pantoprazole (Protonix Tab) 40 mg DAILY@06 PO Last administered on 03/07/17 06 :26; Admin Dose 40 MG; Start 03/03/17 at 06:00 Sodium Bicarbonate (Sodium Bicarbonate Tab) 650 mg BID PO Last administered on 03/07/17 09:05; Admin Dose 650 MG; Start 03/02/17 at 21:00 Potassium Chloride (Klor-Con 20) 20 meq TID PO Last administered on 03/07/17 13:23; Admin Dose 20 MEQ; Start 03/05/17 at 21:00 Magnesium Oxide (Mag-Ox 400) 400 mg BID PO Last administered on 03/07/17 09:04 ; Admin Dose 400 MG; Start 03/05/17 at 21:00 ROMI ESPINO Mar 07, 2017 17:31
--- NOTE | 2017-03-07 18:13 | CONS ---
Date/Time of Note Date/Time of Note DATE: 03/07/17 TIME: 18:12 Assessment/Plan Assessment/Plan Additional Assessment/Plan 1. acute Kidney injury due to severe prerenal azotemia 2. Acute Hyperkalemia with K 6.0 to now Hypokalemic 3. Nausea,vomiting 4. Hypomagnesemia 5. Metabolic acidosis 6. H/o Hirschsprung disease s/p colostomy 7. Hypomagnesemia severe plan: Continue current care, IVF, creatinine improved to normal with IVF- decreased IVF rate NS to 75 cc/hr, plan is to d/c IVF in AM K stable today Mag 1.2- d/c mag oxide, conitnue Mag chloride , magnesium sulfate 2 gram IV x 1 today continue KCl 20mEQ BID will follow up Consultation Date/Type/Reason Admit Date/Time Mar 02, 2017 at 05:33 Initial Consult Date 03/02/17 Type of Consultation: NEPHROLOGY Referring Provider: GINGER MOSES 24 HR Interval Summary Free Text/Dictation k stable, magnesium low, on NS at 125 cc/hr Exam/Review of Systems Vital Signs Vitals Vital Signs Date Time Temp Pulse Resp B/P Pulse Ox O2 Delivery O2 Flow Rate FiO2 03/07/17 16:12 98 03/07/17 11:48 97.8 18 89/50 97 Intake and Output 03/06/17 03/06/17 03/07/17 15:00 23:00 07:00 Intake Total 1000 ml 1375 ml Balance 1000 ml 1375 ml Results Result Diagram: 03/07/17 0909 03/07/17 0912 Results 24 hrs Laboratory Tests Test 03/07/17 09:09 03/07/17 09:12 White Blood Count 5.0 Red Blood Count 2.75 L Hemoglobin 8.2 L Hematocrit 23.6 L Mean Corpuscular Volume 85.8 Mean Corpuscular Hemoglobin 29.8 Mean Corpuscular Hemoglobin Concent 34.7 Red Cell Distribution Width 13.1 Platelet Count 217 Mean Platelet Volume 8.8 Neutrophils % 77.4 H Lymphocytes % 12.4 L Monocytes % 5.4 Eosinophils % 4.2 Basophils % 0.4 Nucleated Red Blood Cells % 0.0 Neutrophils # (Manual) 3.9 Lymphocytes # 0.6 L Monocytes # 0.3 Eosinophils # 0.2 Basophils # 0.0 Nucleated Red Blood Cells # 0.0 Sodium Level 147 H Potassium Level 3.8 Chloride Level 111 H Carbon Dioxide Level 25 Anion Gap 15 # Blood Urea Nitrogen 4 L Creatinine 0.78 Glucose Level 90 Calcium Level 7.9 L Phosphorus Level 2.4 L Magnesium Level 1.2 L Medications Medications Current Medications Sodium Chloride (NS) 1,000 ml @ 125 mls/hr Q8H IV Last administered on 13:23; Admin Dose 125 MLS/HR; Start 03/02/17 at 12:03 Ondansetron HCl (Zofran Inj) 4 mg Q6H PRN IV NAUSEA AND/OR VOMITING; Start at 12:30 Acetaminophen (Tylenol Tab) 650 mg Q6H PRN PO PAIN LEVEL 1-3 OR FEVER; Start at 12:30 Morphine Sulfate (morphine) 2 mg Q4H PRN IV PAIN LEVEL 7-10; Start 03/02/17 at 12:30 Enoxaparin Sodium (Lovenox) 30 mg DAILY SC Last administered on 03/07/17 09:14 ; Admin Dose 30 MG; Start 03/03/17 at 09:00 Cyanocobalamin (Vitamin B12 Inj) 1,000 mcg Q28D IM Last administered on 16:13; Admin Dose 1,000 MCG; Start 03/02/17 at 12:30 Folic Acid (Folic Acid) 1 mg DAILY PO Last administered on 03/07/17 09:04; Admin Dose 1 MG; Start 03/03/17 at 09:00 Acetaminophen/ Hydrocodone Bitart ([place] (10/325)) 1 tab Q6H PRN PO PAIN; Start 03/02/17 at 12:30 Hydroxyzine Pamoate (Vistaril) 25 mg QHS PRN PO ITCHING Last administered on 00:24; Admin Dose 25 MG; Start 03/02/17 at 12:30 Magnesium Chloride (Mag 64) 64 mg BID PO Last administered on 03/07/17 09:00; Admin Dose 64 MG; Start 03/02/17 at 21:00 Midodrine (Proamatine) 2.5 mg BID@ PRN PO SBP <90 Last administered on 12:01; Admin Dose 2.5 MG; Start 03/02/17 at 12:30 Pantoprazole (Protonix Tab) 40 mg DAILY@06 PO Last administered on 03/07/17 06 :26; Admin Dose 40 MG; Start 03/03/17 at 06:00 Sodium Bicarbonate (Sodium Bicarbonate Tab) 650 mg BID PO Last administered on 03/07/17 09:05; Admin Dose 650 MG; Start 03/02/17 at 21:00 Potassium Chloride (Klor-Con 20) 20 meq TID PO Last administered on 03/07/17 13:23; Admin Dose 20 MEQ; Start 03/05/17 at 21:00 Magnesium Oxide (Mag-Ox 400) 400 mg BID PO Last administered on 03/07/17 09:04 ; Admin Dose 400 MG; Start 03/05/17 at 21:00 ROHAN VELÁZQUEZ MD Mar 07, 2017 18:13
[2017-03-07] MEDS ORDERED: MAGNESIUM SULFATE 2 GM/50 ML 50 ML IVPB ONE (18:30)
[2017-03-08] VITALS (12 sets, daily range): BP systolic 78–118; BP diastolic 44–56; PULSE 90–107; RESP 16–20
[2017-03-08] MEDS: MAGNESIUM CHLORIDE (SR) 64 MG TAB PO SCH ×3 (00:15→21:45)
[2017-03-08] MEDS: PANTOPRAZOLE (EC) 40 MG TAB PO SCH (06:30)
[2017-03-08 07:59] LABS: ABNORMAL IP MESSAGE 1; BASOPHILS % 0.7 % (0.0-2.0); EOSINOPHILS # 0.2 10^3/ul (0.0-0.5); EOSINOPHILS % 5.3 % (0.0-7.0); HEMATOCRIT 23.3 % (37.0-47.0); HEMOGLOBIN 7.5 g/dl (12.0-16.0); LYMPHOCYTES # 0.6 10^3/ul (0.8-2.9); LYMPHOCYTES % 13.3 % (15.0-51.0); MEAN CORPUSCULAR HEMOGLOBIN 28.3 pg (29.0-33.0); MEAN CORPUSCULAR HGB CONC 32.2 g/dl (32.0-37.0); MEAN CORPUSCULAR VOLUME 87.9 fl (82.0-101.0); MEAN PLATELET VOLUME 9.6 fl (7.4-10.4); MONOCYTE # 0.2 10^3/ul (0.3-0.9); MONOCYTES % 5.5 % (0.0-11.0); PLATELET COUNT 201 10^3/UL (140-415); RED BLOOD COUNT 2.65 10^6/ul (4.20-5.40); RED CELL DISTRIBUTION WIDTH 13.3 % (11.5-14.5); WHITE BLOOD COUNT 4.4 10^3/ul (4.8-10.8)
[2017-03-08 08:42] LABS: POSITIVE DIFF @See below
[2017-03-08 08:49] LABS: CALCIUM 8.2 mg/dl (8.4-10.2); CREATININE 0.82 mg/dl (0.44-1.00)
[2017-03-08] MEDS: FOLIC ACID 1 MG TAB PO SCH (09:12)
[2017-03-08] MEDS: NA BICARBONATE 650 MG TAB PO SCH ×3 (09:12→21:45)
[2017-03-08] MEDS: POTASSIUM CHLORIDE (SR) 20 MEQ TAB PO SCH ×3 (09:12→21:45)
[2017-03-08] MEDS: ENOXAPARIN 30 MG/0.3 ML SYG SC SCH (09:16)
[2017-03-08] MEDS: SOD CHLORIDE 0.9% 1,000 ML IV SCH (10:37)
[2017-03-08] MEDS ORDERED: SOD CHLORIDE 0.9% 250 ML IV* ONE (11:05)
--- NOTE | 2017-03-08 11:05 | PN ---
Date/Time of Note Date/Time of Note DATE: 03/08/17 TIME: 11:00 Assessment/Plan VTE Prophylaxis VTE Prophylaxis Intervention: other Lines/Catheters [facility] Urinary Cath still in place: No Assessment/Plan Assessment/Plan - Anemia- transfuse PRN. monitor labs. -Severe hypokalemia- RESOLVED - nephrology follows - continue potassium replacement, telemetry monitoring -Nausea and vomiting on admission, resolved -Acute kidney injury secondary to dehydration, Dr. Spain is following in nephrology consultation. Continue IV fluids -Electrolyte imbalances- Hypomagnesium, Hypophosphatemia - no mag, Ph labs today - nephrology follows - will order Mg. Ph labs- to follow -History of Hirschsprung disease -Ileostomy Further recommendations based on clinical course. Plan of care discussed with Dr. Paez Subjective 24 Hr Interval Summary Free Text/Dictation nad, good output from ileostomy, denies any nausea and vomiting, continue to monitor electrolyte- low mag. phos- no labs today,fu labs today, continue telemetry. Respiratory: no complaints Cardiovascular: no complaints Gastrointestinal: no complaints Genitourinary: no complaints Musculoskeletal: back pain Skin: no complaints Neurologic: no complaints Exam/Review of Systems Vital Signs Vitals Vital Signs Date Time Temp Pulse Resp B/P Pulse Ox O2 Delivery O2 Flow Rate FiO2 03/08/17 10:02 98.1 88 17 96/50 100 Intake and Output 03/07/17 03/07/17 03/08/17 15:00 23:00 07:00 Intake Total 780 ml Balance 780 ml Exam Constitutional: alert, oriented Respiratory: clear to auscultation, normal air movement Cardiovascular: nl pulses, regular rate and rhythm Gastrointestinal: non-tender, other (ileostomy intact), soft Musculoskeletal: nl extremities to inspection Extremities: normal pulses 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: nl mental status, nl speech Results Result Diagram: 03/08/1760403/08/17 06 Results 24 hrs Laboratory Tests Test 03/08/17 06:05 White Blood Count 4.4 L Red Blood Count 2.65 L Hemoglobin 7.5 L Hematocrit 23.3 L Mean Corpuscular Volume 87.9 Mean Corpuscular Hemoglobin 28.3 L Mean Corpuscular Hemoglobin Concent 32.2 Red Cell Distribution Width 13.3 Platelet Count 201 Mean Platelet Volume 9.6 Neutrophils % 75.0 Lymphocytes % 13.3 L Monocytes % 5.5 Eosinophils % 5.3 Basophils % 0.7 Nucleated Red Blood Cells % 0.0 Neutrophils # (Manual) 3.3 Lymphocytes # 0.6 L Monocytes # 0.2 L Eosinophils # 0.2 Basophils # 0.0 Nucleated Red Blood Cells # 0.0 Sodium Level 144 Potassium Level 4.0 Chloride Level 110 Carbon Dioxide Level 23 Anion Gap 15 Blood Urea Nitrogen 6 L Creatinine 0.82 Glucose Level 69 #L Calcium Level 8.2 L Medications Medications Current Medications Sodium Chloride (NS) 1,000 ml @ 75 mls/hr [id number] IV Last administered on 03/07 13:23; Admin Dose 125 MLS/HR; Start 03/02/17 at 12:03 Ondansetron HCl (Zofran Inj) 4 mg Q6H PRN IV NAUSEA AND/OR VOMITING; Start at 12:30 Acetaminophen (Tylenol Tab) 650 mg Q6H PRN PO PAIN LEVEL 1-3 OR FEVER; Start at 12:30 Morphine Sulfate (morphine) 2 mg Q4H PRN IV PAIN LEVEL 7-10; Start 03/02/17 at 12:30 Enoxaparin Sodium (Lovenox) 30 mg DAILY SC Last administered on 03/08/17 09:16 ; Admin Dose 30 MG; Start 03/03/17 at 09:00 Cyanocobalamin (Vitamin B12 Inj) 1,000 mcg Q28D IM Last administered on 16:13; Admin Dose 1,000 MCG; Start 03/02/17 at 12:30 Folic Acid (Folic Acid) 1 mg DAILY PO Last administered on 03/08/17 09:12; Admin Dose 1 MG; Start 03/03/17 at 09:00 Acetaminophen/ Hydrocodone Bitart ([place] (10/325)) 1 tab Q6H PRN PO PAIN; Start 03/02/17 at 12:30 Hydroxyzine Pamoate (Vistaril) 25 mg QHS PRN PO ITCHING Last administered on 00:24; Admin Dose 25 MG; Start 03/02/17 at 12:30 Magnesium Chloride (Mag 64) 64 mg BID PO Last administered on 03/08/17 09:12; Admin Dose 64 MG; Start 03/02/17 at 21:00 Midodrine (Proamatine) 2.5 mg BID@ PRN PO SBP <90 Last administered on 12:01; Admin Dose 2.5 MG; Start 03/02/17 at 12:30 Pantoprazole (Protonix Tab) 40 mg DAILY@06 PO Last administered on 03/08/17 06 :30; Admin Dose 40 MG; Start 03/03/17 at 06:00 Potassium Chloride (Klor-Con 20) 20 meq TID PO Last administered on 03/08/17 09:12; Admin Dose 20 MEQ; Start 03/05/17 at 21:00 Sodium Bicarbonate (Sodium Bicarbonate Tab) 650 mg TID PO Last administered on 03/08/17 09:12; Admin Dose 650 MG; Start 03/07/17 at 21:00 DEVENDRA GOMES Mar 08, 2017 11:04
--- NOTE | 2017-03-08 12:47 | CONS ---
Date/Time of Note Date/Time of Note DATE: 03/08/17 TIME: 12:46 Assessment/Plan Assessment/Plan Additional Assessment/Plan 1. acute Kidney injury due to severe prerenal azotemia 2. Acute Hyperkalemia with K 6.0 to now Hypokalemic 3. Nausea,vomiting 4. Hypomagnesemia 5. Metabolic acidosis 6. H/o Hirschsprung disease s/p colostomy 7. Hypomagnesemia severe plan: Continue current care, IVF, d/c IVF, Cr and electrlytes normal today continue KCl 20mEQ BID , on magnesium PO replacement will follow up Consultation Date/Type/Reason Admit Date/Time Mar 02, 2017 at 05:33 Initial Consult Date 03/02/17 Type of Consultation: NEPHROLOGY Referring Provider: GINGER MOSES Exam/Review of Systems Vital Signs Vitals Vital Signs Date Time Temp Pulse Resp B/P Pulse Ox O2 Delivery O2 Flow Rate FiO2 03/08/17 12:12 98.0 107 18 85/49 100 Intake and Output 03/07/17 03/07/17 03/08/17 15:00 23:00 07:00 Intake Total 780 ml Balance 780 ml Exam Constitutional: alert, oriented Psych: no complaints Respiratory: clear to auscultation, intercostal retraction, normal air movement Cardiovascular: nl pulses, regular rate and rhythm Gastrointestinal: non-tender, soft Musculoskeletal: nl extremities to inspection Extremities: normal pulses 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, nl mental status, nl speech, nl strength Skin: nl turgor Lymph: nl lymph nodes Results Result Diagram: 03/08/17 0605 03/08/17 0605 Results 24 hrs Laboratory Tests Test 03/08/17 06:05 White Blood Count 4.4 L Red Blood Count 2.65 L Hemoglobin 7.5 L Hematocrit 23.3 L Mean Corpuscular Volume 87.9 Mean Corpuscular Hemoglobin 28.3 L Mean Corpuscular Hemoglobin Concent 32.2 Red Cell Distribution Width 13.3 Platelet Count 201 Mean Platelet Volume 9.6 Neutrophils % 75.0 Lymphocytes % 13.3 L Monocytes % 5.5 Eosinophils % 5.3 Basophils % 0.7 Nucleated Red Blood Cells % 0.0 Neutrophils # (Manual) 3.3 Lymphocytes # 0.6 L Monocytes # 0.2 L Eosinophils # 0.2 Basophils # 0.0 Nucleated Red Blood Cells # 0.0 Sodium Level 144 Potassium Level 4.0 Chloride Level 110 Carbon Dioxide Level 23 Anion Gap 15 Blood Urea Nitrogen 6 L Creatinine 0.82 Glucose Level 69 #L Calcium Level 8.2 L Medications Medications Current Medications Sodium Chloride (NS) 1,000 ml @ 75 mls/hr [id number] IV Last administered on 03/07 13:23; Admin Dose 125 MLS/HR; Start 03/02/17 at 12:03 Ondansetron HCl (Zofran Inj) 4 mg Q6H PRN IV NAUSEA AND/OR VOMITING; Start at 12:30 Acetaminophen (Tylenol Tab) 650 mg Q6H PRN PO PAIN LEVEL 1-3 OR FEVER; Start at 12:30 Morphine Sulfate (morphine) 2 mg Q4H PRN IV PAIN LEVEL 7-10; Start 03/02/17 at 12:30 Enoxaparin Sodium (Lovenox) 30 mg DAILY SC Last administered on 03/08/17 09:16 ; Admin Dose 30 MG; Start 03/03/17 at 09:00 Cyanocobalamin (Vitamin B12 Inj) 1,000 mcg Q28D IM Last administered on 16:13; Admin Dose 1,000 MCG; Start 03/02/17 at 12:30 Folic Acid (Folic Acid) 1 mg DAILY PO Last administered on 03/08/17 09:12; Admin Dose 1 MG; Start 03/03/17 at 09:00 Acetaminophen/ Hydrocodone Bitart ([place] (10/325)) 1 tab Q6H PRN PO PAIN; Start 03/02/17 at 12:30 Hydroxyzine Pamoate (Vistaril) 25 mg QHS PRN PO ITCHING Last administered on 00:24; Admin Dose 25 MG; Start 03/02/17 at 12:30 Magnesium Chloride (Mag 64) 64 mg BID PO Last administered on 03/08/17 09:12; Admin Dose 64 MG; Start 03/02/17 at 21:00 Midodrine (Proamatine) 2.5 mg BID@ PRN PO SBP <90 Last administered on 12:01; Admin Dose 2.5 MG; Start 03/02/17 at 12:30 Pantoprazole (Protonix Tab) 40 mg DAILY@06 PO Last administered on 03/08/17 06 :30; Admin Dose 40 MG; Start 03/03/17 at 06:00 Potassium Chloride (Klor-Con 20) 20 meq TID PO Last administered on 03/08/17 09:12; Admin Dose 20 MEQ; Start 03/05/17 at 21:00 Sodium Bicarbonate (Sodium Bicarbonate Tab) 650 mg TID PO Last administered on 03/08/17 09:12; Admin Dose 650 MG; Start 03/07/17 at 21:00 ROHAN VELÁZQUEZ MD Mar 08, 2017 12:47
[2017-03-09] VITALS (14 sets, daily range): BP systolic 87–118; BP diastolic 50–69; PULSE 77–134; RESP 15–19
[2017-03-09] MEDS: SOD CHLORIDE 0.9% 1,000 ML IV SCH ×2 (01:17→14:00)
[2017-03-09] MEDS: PANTOPRAZOLE (EC) 40 MG TAB PO SCH (06:07)
[2017-03-09] MEDS: POTASSIUM CHLORIDE (SR) 20 MEQ TAB PO SCH ×3 (08:44→22:12)
[2017-03-09] MEDS: FOLIC ACID 1 MG TAB PO SCH (08:44)
[2017-03-09] MEDS: MAGNESIUM CHLORIDE (SR) 64 MG TAB PO SCH ×3 (08:45→22:11)
[2017-03-09] MEDS: NA BICARBONATE 650 MG TAB PO SCH ×3 (08:45→22:12)
[2017-03-09] MEDS: ENOXAPARIN 30 MG/0.3 ML SYG SC SCH (08:50)
[2017-03-09 10:40] LABS: ABNORMAL IP MESSAGE 1; BASOPHILS % 0.3 % (0.0-2.0); EOSINOPHILS # 0.2 10^3/ul (0.0-0.5); EOSINOPHILS % 3.2 % (0.0-7.0); HEMATOCRIT 29.9 % (37.0-47.0); HEMOGLOBIN 10.1 g/dl (12.0-16.0); LYMPHOCYTES # 0.5 10^3/ul (0.8-2.9); LYMPHOCYTES % 5.9 % (15.0-51.0); MEAN CORPUSCULAR HEMOGLOBIN 30.3 pg (29.0-33.0); MEAN CORPUSCULAR HGB CONC 33.8 g/dl (32.0-37.0); MEAN CORPUSCULAR VOLUME 89.8 fl (82.0-101.0); MEAN PLATELET VOLUME 9.2 fl (7.4-10.4); MONOCYTE # 0.3 10^3/ul (0.3-0.9); MONOCYTES % 4.1 % (0.0-11.0); PLATELET COUNT 200 10^3/UL (140-415); RED BLOOD COUNT 3.33 10^6/ul (4.20-5.40); RED CELL DISTRIBUTION WIDTH 13.2 % (11.5-14.5); WHITE BLOOD COUNT 7.6 10^3/ul (4.8-10.8)
[2017-03-09 10:47] LABS: POSITIVE DIFF @See below
[2017-03-09 11:10] LABS: CALCIUM 8.3 mg/dl (8.4-10.2); CREATININE 0.83 mg/dl (0.44-1.00); POTASSIUM 4.6 mmol/L (3.5-5.1)
[2017-03-09] MEDS ORDERED: MAGNESIUM SULFATE 4 GM/100 ML 100 ML IVPB STA (12:04)
--- NOTE | 2017-03-09 12:06 | CONS ---
Date/Time of Note Date/Time of Note DATE: 03/09/17 TIME: 12:05 Assessment/Plan Assessment/Plan Additional Assessment/Plan 1. acute Kidney injury due to severe prerenal azotemia 2. Acute Hyperkalemia with K 6.0 to now Hypokalemic 3. Nausea,vomiting 4. Hypomagnesemia 5. Metabolic acidosis 6. H/o Hirschsprung disease s/p colostomy 7. Hypomagnesemia severe plan: Continue current care, IVF, d/c IVF, Cr normal, Mag 0.9- give magnesium sulfate 4 gram IV x 1 dose now continue KCl 20mEQ BID , on Magnesium chloride 64-increased to TID will follow up Consultation Date/Type/Reason Admit Date/Time Mar 02, 2017 at 05:33 Initial Consult Date 03/02/17 Type of Consultation: NEPHROLOGY Referring Provider: GINGER MOSES 24 HR Interval Summary Free Text/Dictation no acute events, Mag level 0.9, BP stable, afebrile Exam/Review of Systems Vital Signs Vitals Vital Signs Date Time Temp Pulse Resp B/P Pulse Ox O2 Delivery O2 Flow Rate FiO2 03/09/17 08:30 98.0 102 18 105/53 100 03/09/17 04:00 Room Air Intake and Output 03/08/17 03/08/17 03/09/17 15:00 23:00 07:00 Intake Total 750 ml 1300 ml Output Total 300 ml Balance 750 ml 1000 ml Exam Constitutional: alert, oriented Psych: no complaints Respiratory: clear to auscultation, intercostal retraction, normal air movement Cardiovascular: nl pulses, regular rate and rhythm Gastrointestinal: non-tender, soft Musculoskeletal: nl extremities to inspection Extremities: normal pulses 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: DISTRICT MANAGER II-XII intact, nl mental status, nl speech, nl strength Skin: nl turgor Lymph: nl lymph nodes Results Result Diagram: 03/09/17 1021 03/09/17 1021 Results 24 hrs Laboratory Tests Test 03/09/17 08:27 03/09/17 10:21 Lab Scanned Report BLOOD TRANSFUSION White Blood Count 7.6 # Red Blood Count 3.33 #L Hemoglobin 10.1 #L Hematocrit 29.9 #L Mean Corpuscular Volume 89.8 Mean Corpuscular Hemoglobin 30.3 Mean Corpuscular Hemoglobin Concent 33.8 Red Cell Distribution Width 13.2 Platelet Count 200 Mean Platelet Volume 9.2 Neutrophils % 86.0 H Lymphocytes % 5.9 L Monocytes % 4.1 Eosinophils % 3.2 Basophils % 0.3 Nucleated Red Blood Cells % 0.0 Neutrophils # (Manual) 6.5 Lymphocytes # 0.5 L Monocytes # 0.3 Eosinophils # 0.2 Basophils # 0.0 Nucleated Red Blood Cells # 0.0 Sodium Level 145 H Potassium Level 4.6 Chloride Level 109 Carbon Dioxide Level 26 Anion Gap 15 Blood Urea Nitrogen 9 Creatinine 0.83 Glucose Level 94 Calcium Level 8.3 L Magnesium Level 0.9 *L Medications Medications Current Medications Sodium Chloride (NS) 1,000 ml @ 75 mls/hr [id number] IV Last administered on 03/09 01:17; Admin Dose 75 MLS/HR; Start 03/02/17 at 12:03 Ondansetron HCl (Zofran Inj) 4 mg Q6H PRN IV NAUSEA AND/OR VOMITING; Start at 12:30 Acetaminophen (Tylenol Tab) 650 mg Q6H PRN PO PAIN LEVEL 1-3 OR FEVER; Start at 12:30 Morphine Sulfate (morphine) 2 mg Q4H PRN IV PAIN LEVEL 7-10; Start 03/02/17 at 12:30 Enoxaparin Sodium (Lovenox) 30 mg DAILY SC Last administered on 03/09/17 08:50 ; Admin Dose 30 MG; Start 03/03/17 at 09:00 Cyanocobalamin (Vitamin B12 Inj) 1,000 mcg Q28D IM Last administered on 16:13; Admin Dose 1,000 MCG; Start 03/02/17 at 12:30 Folic Acid (Folic Acid) 1 mg DAILY PO Last administered on 03/09/17 08:44; Admin Dose 1 MG; Start 03/03/17 at 09:00 Acetaminophen/ Hydrocodone Bitart ([place] (10/325)) 1 tab Q6H PRN PO PAIN; Start 03/02/17 at 12:30 Hydroxyzine Pamoate (Vistaril) 25 mg QHS PRN PO ITCHING Last administered on 00:24; Admin Dose 25 MG; Start 03/02/17 at 12:30 Midodrine (Proamatine) 2.5 mg BID@ PRN PO SBP <90 Last administered on 12:01; Admin Dose 2.5 MG; Start 03/02/17 at 12:30 Pantoprazole (Protonix Tab) 40 mg DAILY@06 PO Last administered on 03/09/17 06 :07; Admin Dose 40 MG; Start 03/03/17 at 06:00 Potassium Chloride (Klor-Con 20) 20 meq TID PO Last administered on 03/09/17 08:44; Admin Dose 20 MEQ; Start 03/05/17 at 21:00 Sodium Bicarbonate (Sodium Bicarbonate Tab) 650 mg TID PO Last administered on 03/09/17 08:45; Admin Dose 650 MG; Start 03/07/17 at 21:00 Magnesium Chloride (Mag 64) 64 mg TID PO ; Start 03/09/17 at 13:00 ROHAN VELÁZQUEZ MD Mar 09, 2017 12:06
--- NOTE | 2017-03-09 12:16 | PN ---
Date/Time of Note Date/Time of Note DATE: 03/09/17 TIME: 11:55 Assessment/Plan VTE Prophylaxis VTE Prophylaxis Intervention: other Lines/Catheters IV [facility]from [facility] portacath Urinary Cath still in place: No Assessment/Plan Assessment/Plan - Anemia- SP 1 unit PRBC transfusion- Hgb 10 monitor labs. -Severe hypokalemia- RESOLVED - nephrology follows - continue potassium replacement, telemetry monitoring -Nausea and vomiting on admission, resolved -Acute kidney injury secondary to dehydration, Dr. Spain is following in nephrology consultation. Continue IV fluids -Electrolyte imbalances- Hypomagnesium, Hypophosphatemia - mag- 0.9 - nephrology follows -History of Hirschsprung disease -Ileostomy Further recommendations based on clinical course. Plan of care discussed with Dr. Paez/ Dr Spain Subjective 24 Hr Interval Summary Constitutional: requiring IVF, requiring O2 Respiratory: no complaints Cardiovascular: no complaints Gastrointestinal: no complaints Musculoskeletal: no complaints Exam/Review of Systems Vital Signs Vitals Vital Signs Date Time Temp Pulse Resp B/P Pulse Ox O2 Delivery O2 Flow Rate FiO2 03/09/17 08:30 98.0 102 18 105/53 100 03/09/17 04:00 Room Air Intake and Output 03/08/17 03/08/17 03/09/17 15:00 23:00 07:00 Intake Total 750 ml 1300 ml Output Total 300 ml Balance 750 ml 1000 ml Exam Constitutional: alert, oriented Respiratory: diminished breath sounds Cardiovascular: nl pulses, regular rate and rhythm Gastrointestinal: other (SURGICAL ABDOMEN), soft Musculoskeletal: nl extremities to inspection Extremities: normal pulses 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: nl mental status, nl speech Results Result Diagram: 03/09/17 1021 03/09/17 1021 Results 24 hrs Laboratory Tests Test 03/09/17 08:27 03/09/17 10:21 Lab Scanned Report BLOOD TRANSFUSION White Blood Count 7.6 # Red Blood Count 3.33 #L Hemoglobin 10.1 #L Hematocrit 29.9 #L Mean Corpuscular Volume 89.8 Mean Corpuscular Hemoglobin 30.3 Mean Corpuscular Hemoglobin Concent 33.8 Red Cell Distribution Width 13.2 Platelet Count 200 Mean Platelet Volume 9.2 Neutrophils % 86.0 H Lymphocytes % 5.9 L Monocytes % 4.1 Eosinophils % 3.2 Basophils % 0.3 Nucleated Red Blood Cells % 0.0 Neutrophils # (Manual) 6.5 Lymphocytes # 0.5 L Monocytes # 0.3 Eosinophils # 0.2 Basophils # 0.0 Nucleated Red Blood Cells # 0.0 Sodium Level 145 H Potassium Level 4.6 Chloride Level 109 Carbon Dioxide Level 26 Anion Gap 15 Blood Urea Nitrogen 9 Creatinine 0.83 Glucose Level 94 Calcium Level 8.3 L Medications Medications Current Medications Sodium Chloride (NS) 1,000 ml @ 75 mls/hr [id number] IV Last administered on 03/09 01:17; Admin Dose 75 MLS/HR; Start 03/02/17 at 12:03 Ondansetron HCl (Zofran Inj) 4 mg Q6H PRN IV NAUSEA AND/OR VOMITING; Start at 12:30 Acetaminophen (Tylenol Tab) 650 mg Q6H PRN PO PAIN LEVEL 1-3 OR FEVER; Start at 12:30 Morphine Sulfate (morphine) 2 mg Q4H PRN IV PAIN LEVEL 7-10; Start 03/02/17 at 12:30 Enoxaparin Sodium (Lovenox) 30 mg DAILY SC Last administered on 03/09/17 08:50 ; Admin Dose 30 MG; Start 03/03/17 at 09:00 Cyanocobalamin (Vitamin B12 Inj) 1,000 mcg Q28D IM Last administered on 16:13; Admin Dose 1,000 MCG; Start 03/02/17 at 12:30 Folic Acid (Folic Acid) 1 mg DAILY PO Last administered on 03/09/17 08:44; Admin Dose 1 MG; Start 03/03/17 at 09:00 Acetaminophen/ Hydrocodone Bitart ([place] (10/325)) 1 tab Q6H PRN PO PAIN; Start 03/02/17 at 12:30 Hydroxyzine Pamoate (Vistaril) 25 mg QHS PRN PO ITCHING Last administered on 00:24; Admin Dose 25 MG; Start 03/02/17 at 12:30 Midodrine (Proamatine) 2.5 mg BID@, PRN PO SBP <90 Last administered on 12:01; Admin Dose 2.5 MG; Start 03/02/17 at 12:30 Pantoprazole (Protonix Tab) 40 mg DAILY@06 PO Last administered on 03/09/17 06 :07; Admin Dose 40 MG; Start 03/03/17 at 06:00 Potassium Chloride (Klor-Con 20) 20 meq TID PO Last administered on 03/09/17 08:44; Admin Dose 20 MEQ; Start 03/05/17 at 21:00 Sodium Bicarbonate (Sodium Bicarbonate Tab) 650 mg TID PO Last administered on 03/09/17 08:45; Admin Dose 650 MG; Start 03/07/17 at 21:00 Magnesium Chloride (Mag 64) 64 mg TID PO ; Start 03/09/17 at 13:00 DEVENDRA GOMES Mar 09, 2017 12:06
[2017-03-10] VITALS (13 sets, daily range): BP systolic 84–101; BP diastolic 46–59; PULSE 88–150; RESP 16–20
[2017-03-10] MEDS: SOD CHLORIDE 0.9% 1,000 ML IV SCH ×2 (01:06→15:39)
[2017-03-10] MEDS: PANTOPRAZOLE (EC) 40 MG TAB PO SCH (05:08)
[2017-03-10 07:30] LABS: ABNORMAL IP MESSAGE 1; BASOPHILS % 0.3 % (0.0-2.0); EOSINOPHILS # 0.2 10^3/ul (0.0-0.5); EOSINOPHILS % 2.6 % (0.0-7.0); HEMATOCRIT 30.9 % (37.0-47.0); HEMOGLOBIN 10.5 g/dl (12.0-16.0); LYMPHOCYTES # 0.3 10^3/ul (0.8-2.9); LYMPHOCYTES % 3.4 % (15.0-51.0); MEAN CORPUSCULAR HEMOGLOBIN 30.3 pg (29.0-33.0); MEAN PLATELET VOLUME 9.5 fl (7.4-10.4); MONOCYTE # 0.3 10^3/ul (0.3-0.9); NEUTROPHILS % 89.3 % (39.0-77.0); PLATELET COUNT 218 10^3/UL (140-415); RED BLOOD COUNT 3.47 10^6/ul (4.20-5.40); RED CELL DISTRIBUTION WIDTH 13.3 % (11.5-14.5); WHITE BLOOD COUNT 7.5 10^3/ul (4.8-10.8)
[2017-03-10 07:39] LABS: POSITIVE DIFF @See below
[2017-03-10 07:51] LABS: ALBUMIN 2.9 g/dl (3.3-4.9); ALBUMIN/GLOBULIN RATIO 0.96; BILIRUBIN,INDIRECT 0.1 mg/dl (0-1.1); BILIRUBIN,TOTAL 0.1 mg/dl (0.2-1.3); CALCIUM 8.5 mg/dl (8.4-10.2); CREATININE 0.81 mg/dl (0.44-1.00); POTASSIUM 4.4 mmol/L (3.5-5.1); TOTAL PROTEIN 5.9 g/dl (6.1-8.1)
[2017-03-10 07:53] LABS: MAGNESIUM 1.6 mg/dl (1.7-2.5); PHOSPHORUS 2.3 mg/dl (2.5-4.9)
[2017-03-10] MEDS ORDERED: VANCOMYCIN IV PER PHARMACY XX SCH (08:30)
[2017-03-10] MEDS: CEFEPIME 1GM/50 ML (PMX) 50 ML IVPB SCH ×2 (09:00→21:19)
[2017-03-10] MEDS: FAMOTIDINE 20 MG INJ IV SCH ×2 (09:00→15:51)
[2017-03-10] MEDS: NA BICARBONATE 650 MG TAB PO SCH ×3 (09:35→21:19)
[2017-03-10] MEDS: POTASSIUM CHLORIDE (SR) 20 MEQ TAB PO SCH ×3 (09:35→21:19)
[2017-03-10] MEDS: MAGNESIUM CHLORIDE (SR) 64 MG TAB PO SCH ×3 (09:35→21:19)
[2017-03-10] MEDS: FOLIC ACID 1 MG TAB PO SCH (09:35)
[2017-03-10] MEDS: ENOXAPARIN 30 MG/0.3 ML SYG SC SCH (09:47)
--- NOTE | 2017-03-10 10:27 | RADRPT ---
PROCEDURE: XR Chest. CLINICAL INDICATION: chest pain TECHNIQUE: Single frontal view of the chest was obtained COMPARISON: CHEST 03/02/2017 FINDINGS: The heart and mediastinum are within normal limits. There is a right chest wall port in place. The lungs are clear. There is no pleural effusion or pneumothorax. RPTAT: AA IMPRESSION: No acute disease. .Porfirio Blanton MD, MD Date Time Electronically viewed and signed by .Porfirio Blanton MD, on 03/10/2017 10:26 .S/
[2017-03-10] MEDS ORDERED: VANCOMYCIN 750 MG in SOD CHLORIDE 0.9% 150 ML IVPB SCH (11:00)
--- NOTE | 2017-03-10 12:11 | CONS ---
Date/Time of Note Date/Time of Note DATE: 03/10/17 TIME: 11:46 Assessment/Plan Assessment/Plan Chief Complaint/Hosp Course - fever, possibly due to another episode of bacteremia vs. other causes - recurrent lactic acidemia - posterior neck pain x3 months per Pt - probable gastroenteritis on admission, improved - s/p sepsis due to bacteremia - h/o bacteremia due to coag negative Staph hemolyticus on 12/26/2016 and Staph epidermidis on 12/27/2016, 12/31/2016 CoNS (not speciated) - h/o urine culture +MRSA, enterococci, lactobacillus on 12/24/2016 - h/o recurrent bacteremia due to MSSA in 10/2015 and 10/2016. Transesophageal echo on 11/12/2016 was negative for valvular vegetation - h/o low-level nonspecific increase in tracer uptake within the mediastinum on WBC tagged scan 12/31/2016 - h/o extensive catheterization - h/o persistent hypotension - h/o infected portacath, s/p removal in 2015-->new port was placed on 11/15/2016 - h/o possible small bowel obstruction, resolved - h/o acute kidney injury, resolved - Hirschsprung's disease, status post colectomy/ileostomy - h/o MRSA colonization recommendations: - in process: blood cultures (1st specimen drawn from port, 2nd specimen drawn by phlebotomy, confirmed by Pt's RN Annamarie who spoke with the lab today), urine culture - ordered XR of neck, urinalysis and MRSA screen - if XR does not identify a source of her pain, I recommend further imaging of the neck - continue empiric IV vancomycin and cefepime (03/09/2017-) management d/w Pt and her RN Problems: Consultation Date/Type/Reason Admit Date/Time Mar 02, 2017 at 05:33 Date of Consultation: Mar 10, 2017 Type of Consultation: ID Reason for Consultation fever Referring Provider: ROMI JIMÉNEZ of Present Illness This is a 41 yo female with Hirschsprung's disease s/p ileostomy. Pt was admitted here and [facility] several times due to recurrent bacteremia , MSSA and CoNS. Transesophageal echo on 11/12/2016 was negative for valvular vegetation. Her WBC tagged scan on 12/31/2016 showed low-level nonspecific increase in tracer uptake within the mediastinum. However, she did not have clinical signs/symptoms of mediastinitis. Her blood cultures eventually cleared , and Pt was discharged. Pt re-presented at ER c/o abdominal pain, N/V. Pt was afebrile. Last night (03/09/2017), Pt was noted to have low grade temp at 100.1F and tachycardic. blood cultures were collected from port and by phlebotomy. Urine culture was also collected. IV vancomycin and cefepime were ordered. Today, she is no longer febrile but her lactic acid level this morning was 4.7. It was 1.7 at the time of discharge in 12/2016. Subjectively, Pt no longer has GI complaints; however, c/o 3 month h/o posterior neck pain. The pain was not precipitated by an injury. It is rated 8 on the scale of 1- 10. She denies rigidity or MATAMOROS. SARAH Jiménez requested ID consultation on this Pt. Constitutional: no complaints, requiring IVF, requiring O2 Eyes: no complaints ENT: no complaints Respiratory: no complaints Cardiovascular: no complaints Gastrointestinal: passing stool (to ileostomy bag), No constipation, No nausea, No vomiting Genitourinary: no complaints Musculoskeletal: neck pain Skin: no complaints Neurologic: no complaints Psychological: nl mood/affect Past Medical History Medical History: no pertinent history, other (bacteremia) Past Surgical History Past Surgical Hx: bowel resection, other (port removal followed by placement) Social History Alcohol Use: none Smoking Status: Never smoker Exam/Review of Systems Vital Signs Vitals Vital Signs Date Time Temp Pulse Resp B/P Pulse Ox O2 Delivery O2 Flow Rate FiO2 03/10/17 08:36 123 03/10/17 08:10 Nasal Cannula 2.0 03/10/17 05:00 98.5 16 98/57 98 Intake and Output 03/09/17 03/09/17 03/10/17 15:00 23:00 07:00 Intake Total 450 ml 800 ml 1525 ml Output Total 600 ml 250 ml Balance 450 ml 200 ml 1275 ml Exam Constitutional: alert, oriented, well developed Psych: nl mood/affect, no complaints Head: atraumatic, normocephalic Eyes: nl conjunctiva, nl lids ENMT: nl external ears & nose, nl nasal mucosa & septum Neck: non-tender, supple, No jvd, No masses, No nuchal rigidity, No thyromegaly Respiratory: clear to auscultation, normal air movement Cardiovascular: nl pulses, regular rate and rhythm Gastrointestinal: non-tender, other (ostomy bag+), soft, No distended Musculoskeletal: nl extremities to inspection Extremities: No edema 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: OSTEOLOGIST II-XII intact, nl mental status, nl speech Skin: other (skin around the port is intact and non-erythematous) Results Result Diagram: 03/10/1730 03/10/17 0630 Results 24 hrs Laboratory Tests Test 03/10/17 06:30 03/10/17 09:22 White Blood Count 7.5 Red Blood Count 3.47 L Hemoglobin 10.5 L Hematocrit 30.9 L Mean Corpuscular Volume 89.0 Mean Corpuscular Hemoglobin 30.3 Mean Corpuscular Hemoglobin Concent 34.0 Red Cell Distribution Width 13.3 Platelet Count 218 Mean Platelet Volume 9.5 Neutrophils % 89.3 H Lymphocytes % 3.4 L Monocytes % 4.0 Eosinophils % 2.6 Basophils % 0.3 Nucleated Red Blood Cells % 0.0 Neutrophils # (Manual) 6.7 Lymphocytes # 0.3 L Monocytes # 0.3 Eosinophils # 0.2 Basophils # 0.0 Nucleated Red Blood Cells # 0.0 Sodium Level 140 Potassium Level 4.4 Chloride Level 102 Carbon Dioxide Level 28 Anion Gap 14 Blood Urea Nitrogen 8 Creatinine 0.81 Glucose Level 80 Calcium Level 8.5 Phosphorus Level 2.3 L Magnesium Level 1.6 L Total Bilirubin 0.1 L Direct Bilirubin 0.00 Indirect Bilirubin 0.1 Aspartate Amino Transf (AST/SGOT) 44 Alanine Aminotransferase (ALT/SGPT) 36 Alkaline Phosphatase 59 Total Protein 5.9 L Albumin 2.9 L Globulin 3.00 Albumin/Globulin Ratio 0.96 Lactic Acid Level 4.7 *H Medications Medications Current Medications Sodium Chloride (NS) 1,000 ml @ 75 mls/hr [id number] IV Last administered on 03/10t 01:06; Admin Dose 75 MLS/HR; Start 03/02/17 at 12:03 Ondansetron HCl (Zofran Inj) 4 mg Q6H PRN IV NAUSEA AND/OR VOMITING; Start at 12:30 Acetaminophen (Tylenol Tab) 650 mg Q6H PRN PO PAIN LEVEL 1-3 OR FEVER Last administered on 03/09/17 22:29; Admin Dose 650 MG; Start 03/02/17 at 12:30 Morphine Sulfate (morphine) 2 mg Q4H PRN IV PAIN LEVEL 7-10; Start 03/02/17 at 12:30 Enoxaparin Sodium (Lovenox) 30 mg DAILY SC Last administered on 03/10/17 09:47 ; Admin Dose 30 MG; Start 03/03/17 at 09:00 Cyanocobalamin (Vitamin B12 Inj) 1,000 mcg Q28D IM Last administered on 16:13; Admin Dose 1,000 MCG; Start 03/02/17 at 12:30 Folic Acid (Folic Acid) 1 mg DAILY PO Last administered on 03/10/17 09:35; Admin Dose 1 MG; Start 03/03/17 at 09:00 Acetaminophen/ Hydrocodone Bitart ([place] (10/325)) 1 tab Q6H PRN PO PAIN; Start 03/02/17 at 12:30 Hydroxyzine Pamoate (Vistaril) 25 mg QHS PRN PO ITCHING Last administered on 00:24; Admin Dose 25 MG; Start 03/02/17 at 12:30 Midodrine (Proamatine) 2.5 mg BID@ PRN PO SBP <90 Last administered on 12:01; Admin Dose 2.5 MG; Start 03/02/17 at 12:30 Pantoprazole (Protonix Tab) 40 mg DAILY@06 PO Last administered on 03/10/17 05 :08; Admin Dose 40 MG; Start 03/03/17 at 06:00 Potassium Chloride (Klor-Con 20) 20 meq TID PO Last administered on 03/10/17 09:35; Admin Dose 20 MEQ; Start 03/05/17 at 21:00 Sodium Bicarbonate (Sodium Bicarbonate Tab) 650 mg TID PO Last administered on 03/10/17 09:35; Admin Dose 650 MG; Start 03/07/17 at 21:00 Magnesium Chloride 64 mg 64 mg TID PO Last administered on 03/10/17 09:35; Admin Dose 64 MG; Start 03/09/17 at 13:00 Cefepime HCl 50 ml @ 100 mls/hr Q12 IVPB ; Start 03/10/17 at 09:00 Vancomycin HCl/ Sodium Chloride (Vancocin/NS) 150 ml @ 75 mls/hr Q24H IVPB ; Start 03/10/17 at 11:00 TAWANDA FINK M.D. Mar 10, 2017 11:57
--- NOTE | 2017-03-10 14:03 | RADRPT ---
PROCEDURE: XR Cervical Spine. CLINICAL INDICATION: Neck pain. TECHNIQUE: AP and lateral views of the cervical spine were obtained. COMPARISON: None FINDINGS: A right chest wall port is seen. The C1-C7 vertebral bodies are seen. Trace retrolisthesis is seen at C4-5. The remainder of the cervical lordosis is maintained. The vertebral body heights are nor mal. Multilevel endplate osteophytosis is seen. Mild disk height loss is seen at C4-5 and C5-6. No acute fracture or subluxation is seen. The atlantoaxial joint, odontoid process, and lateral masses are intact. No prevertebral soft tissue abnormality is seen. IMPRESSION: Mild degenerative spondylosis of the cervical spine. RPTAT: HPNM Physician Melany Date Time Electronically viewed and signed by Physician Melany on 03/10/2017 14:03 /
[2017-03-10] MEDS ORDERED: MAGNESIUM SULFATE 2 GM/50 ML 50 ML IVPB ONE (18:00)
--- NOTE | 2017-03-10 18:00 | CONS ---
Date/Time of Note Date/Time of Note DATE: 03/10/17 TIME: 17:59 Assessment/Plan Assessment/Plan Additional Assessment/Plan 1. acute Kidney injury due to severe prerenal azotemia 2. Acute Hyperkalemia with K 6.0 to now Hypokalemic 3. Nausea,vomiting 4. Hypomagnesemia 5. Metabolic acidosis 6. H/o Hirschsprung disease s/p colostomy 7. Hypomagnesemia severe plan: Continue current care, IVF, d/c IVF, Cr normal, Mag 1.6- give magnesium sulfate 2 gram IV x 1 dose now continue KCl 20mEQ BID , on Magnesium chloride 64-increased to TID will follow up Consultation Date/Type/Reason Admit Date/Time Mar 02, 2017 at 05:33 Initial Consult Date 03/02/17 Type of Consultation: NEPHROLOGY Referring Provider: ROMI ESPINO Exam/Review of Systems Vital Signs Vitals Vital Signs Date Time Temp Pulse Resp B/P Pulse Ox O2 Delivery O2 Flow Rate FiO2 03/10/17 16:57 125 03/10/17 15:32 98.0 18 97/55 100 03/10/17 08:10 Nasal Cannula 2.0 Intake and Output 03/09/17 03/09/17 03/10/17 15:00 23:00 07:00 Intake Total 450 ml 800 ml 1525 ml Output Total 600 ml 250 ml Balance 450 ml 200 ml 1275 ml Results Result Diagram: 03/10/17 0630 03/10/17 0630 Results 24 hrs Laboratory Tests Test 03/10/17 06:30 03/10/17 09:22 White Blood Count 7.5 Red Blood Count 3.47 L Hemoglobin 10.5 L Hematocrit 30.9 L Mean Corpuscular Volume 89.0 Mean Corpuscular Hemoglobin 30.3 Mean Corpuscular Hemoglobin Concent 34.0 Red Cell Distribution Width 13.3 Platelet Count 218 Mean Platelet Volume 9.5 Neutrophils % 89.3 H Lymphocytes % 3.4 L Monocytes % 4.0 Eosinophils % 2.6 Basophils % 0.3 Nucleated Red Blood Cells % 0.0 Neutrophils # (Manual) 6.7 Lymphocytes # 0.3 L Monocytes # 0.3 Eosinophils # 0.2 Basophils # 0.0 Nucleated Red Blood Cells # 0.0 Sodium Level 140 Potassium Level 4.4 Chloride Level 102 Carbon Dioxide Level 28 Anion Gap 14 Blood Urea Nitrogen 8 Creatinine 0.81 Glucose Level 80 Calcium Level 8.5 Phosphorus Level 2.3 L Magnesium Level 1.6 L Total Bilirubin 0.1 L Direct Bilirubin 0.00 Indirect Bilirubin 0.1 Aspartate Amino Transf (AST/SGOT) 44 Alanine Aminotransferase (ALT/SGPT) 36 Alkaline Phosphatase 59 Total Protein 5.9 L Albumin 2.9 L Globulin 3.00 Albumin/Globulin Ratio 0.96 Lactic Acid Level 4.7 *H Medications Medications Current Medications Sodium Chloride (NS) 1,000 ml @ 75 mls/hr [id number] IV Last administered on 03/10 15:39; Admin Dose 75 MLS/HR; Start 03/02/17 at 12:03 Ondansetron HCl (Zofran Inj) 4 mg Q6H PRN IV NAUSEA AND/OR VOMITING; Start at 12:30 Acetaminophen (Tylenol Tab) 650 mg Q6H PRN PO PAIN LEVEL 1-3 OR FEVER Last administered on 03/09/17 22:29; Admin Dose 650 MG; Start 03/02/17 at 12:30 Morphine Sulfate (morphine) 2 mg Q4H PRN IV PAIN LEVEL 7-10; Start 03/02/17 at 12:30 Famotidine (Pepcid Iv) 20 mg DAILY IV Last administered on 03/10/17 09:00; Admin Dose 20 MG; Start 03/02/17 at 14:00 Enoxaparin Sodium (Lovenox) 30 mg DAILY SC Last administered on 03/10/17 09:47 ; Admin Dose 30 MG; Start 03/03/17 at 09:00 Cyanocobalamin (Vitamin B12 Inj) 1,000 mcg Q28D IM Last administered on 16:13; Admin Dose 1,000 MCG; Start 03/02/17 at 12:30 Folic Acid (Folic Acid) 1 mg DAILY PO Last administered on 03/10/17 09:35; Admin Dose 1 MG; Start 03/03/17 at 09:00 Acetaminophen/ Hydrocodone Bitart ([place] (10/325)) 1 tab Q6H PRN PO PAIN; Start 03/02/17 at 12:30 Hydroxyzine Pamoate (Vistaril) 25 mg QHS PRN PO ITCHING Last administered on 00:24; Admin Dose 25 MG; Start 03/02/17 at 12:30 Midodrine (Proamatine) 2.5 mg BID@17 PRN PO SBP <90 Last administered on 12:01; Admin Dose 2.5 MG; Start 03/02/17 at 12:30 Pantoprazole (Protonix Tab) 40 mg DAILY@06 PO Last administered on 03/10/17 05 :08; Admin Dose 40 MG; Start 03/03/17 at 06:00 Potassium Chloride (Klor-Con 20) 20 meq TID PO Last administered on 03/10/17 13:30; Admin Dose 20 MEQ; Start 03/05/17 at 21:00 Sodium Bicarbonate (Sodium Bicarbonate Tab) 650 mg TID PO Last administered on 03/10/17 13:30; Admin Dose 650 MG; Start 03/07/17 at 21:00 Magnesium Chloride 64 mg 64 mg TID PO Last administered on 03/10/17 13:30; Admin Dose 64 MG; Start 03/09/17 at 13:00 Cefepime HCl 50 ml @ 100 mls/hr Q12 IVPB Last administered on 03/10/17 09:00 ; Admin Dose 100 MLS/HR; Start 03/10/17 at 09:00 Vancomycin HCl (Vancocin) 100 ml @ 100 mls/hr Q12H IVPB ; Start 03/11/17 at 02: 00 ROHAN VELÁZQUEZ MD Mar 10, 2017 18:00
--- NOTE | 2017-03-10 19:11 | PN ---
Date/Time of Note Date/Time of Note DATE: 03/10/17 TIME: 19:07 Assessment/Plan VTE Prophylaxis VTE Prophylaxis Intervention: SCD's Lines/Catheters [facility] Portacath Urinary Cath still in place: No Assessment/Plan Chief Complaint/Hosp Course Patient became tachycardic with fever early in the morning, needs to have tachycardia however the rate is decreased. Patient denies dysuria denies cough. Assessment/Plan -Possible sepsis, started on broad-spectrum antibiotics, follow up on cultures and chest x-ray. Dr. Pineda is following an infection disease consultation. -Severe hypokalemia, resolved -Nausea and vomiting on admission, resolved -Acute kidney injury secondary to dehydration, Dr. Spain is following in nephrology consultation. Continue IV fluids -Electrolyte imbalances -History of Hirschsprung disease -Ileostomy Further recommendations based on clinical course. Plan of care discussed with Dr. Paez Problems: Exam/Review of Systems Vital Signs Vitals Vital Signs Date Time Temp Pulse Resp B/P Pulse Ox O2 Delivery O2 Flow Rate FiO2 03/10/17 16:57 125 03/10/17 15:32 98.0 18 97/55 100 03/10/17 08:10 Nasal Cannula 2.0 Intake and Output 03/09/17 03/09/17 03/10/17 15:00 23:00 07:00 Intake Total 450 ml 800 ml 1525 ml Output Total 600 ml 250 ml Balance 450 ml 200 ml 1275 ml Exam Constitutional: alert Head: normocephalic Neck: supple Respiratory: normal air movement Cardiovascular: nl pulses, other (Tachycardic), regular rate and rhythm Gastrointestinal: other (Ileostomy), soft Extremities: normal pulses Results Result Diagram: 03/10/17 0630 03/10/17 0630 Results 24 hrs Laboratory Tests Test 03/10/17 06:30 03/10/17 09:22 White Blood Count 7.5 Red Blood Count 3.47 L Hemoglobin 10.5 L Hematocrit 30.9 L Mean Corpuscular Volume 89.0 Mean Corpuscular Hemoglobin 30.3 Mean Corpuscular Hemoglobin Concent 34.0 Red Cell Distribution Width 13.3 Platelet Count 218 Mean Platelet Volume 9.5 Neutrophils % 89.3 H Lymphocytes % 3.4 L Monocytes % 4.0 Eosinophils % 2.6 Basophils % 0.3 Nucleated Red Blood Cells % 0.0 Neutrophils # (Manual) 6.7 Lymphocytes # 0.3 L Monocytes # 0.3 Eosinophils # 0.2 Basophils # 0.0 Nucleated Red Blood Cells # 0.0 Sodium Level 140 Potassium Level 4.4 Chloride Level 102 Carbon Dioxide Level 28 Anion Gap 14 Blood Urea Nitrogen 8 Creatinine 0.81 Glucose Level 80 Calcium Level 8.5 Phosphorus Level 2.3 L Magnesium Level 1.6 L Total Bilirubin 0.1 L Direct Bilirubin 0.00 Indirect Bilirubin 0.1 Aspartate Amino Transf (AST/SGOT) 44 Alanine Aminotransferase (ALT/SGPT) 36 Alkaline Phosphatase 59 Total Protein 5.9 L Albumin 2.9 L Globulin 3.00 Albumin/Globulin Ratio 0.96 Lactic Acid Level 4.7 *H Medications Medications Current Medications Sodium Chloride (NS) 1,000 ml @ 75 mls/hr [id number] IV Last administered on 03/10 15:39; Admin Dose 75 MLS/HR; Start 03/02/17 at 12:03 Ondansetron HCl (Zofran Inj) 4 mg Q6H PRN IV NAUSEA AND/OR VOMITING; Start at 12:30 Acetaminophen (Tylenol Tab) 650 mg Q6H PRN PO PAIN LEVEL 1-3 OR FEVER Last administered on 03/09/17 22:29; Admin Dose 650 MG; Start 03/02/17 at 12:30 Morphine Sulfate (morphine) 2 mg Q4H PRN IV PAIN LEVEL 7-10; Start 03/02/17 at 12:30 Famotidine (Pepcid Iv) 20 mg DAILY IV Last administered on 03/10/17 09:00; Admin Dose 20 MG; Start 03/02/17 at 14:00 Enoxaparin Sodium (Lovenox) 30 mg DAILY SC Last administered on 03/10/17 09:47 ; Admin Dose 30 MG; Start 03/03/17 at 09:00 Cyanocobalamin (Vitamin B12 Inj) 1,000 mcg Q28D IM Last administered on 16:13; Admin Dose 1,000 MCG; Start 03/02/17 at 12:30 Folic Acid (Folic Acid) 1 mg DAILY PO Last administered on 03/10/17 09:35; Admin Dose 1 MG; Start 03/03/17 at 09:00 Acetaminophen/ Hydrocodone Bitart ([place] (10/325)) 1 tab Q6H PRN PO PAIN; Start 03/02/17 at 12:30 Hydroxyzine Pamoate (Vistaril) 25 mg QHS PRN PO ITCHING Last administered on 00:24; Admin Dose 25 MG; Start 03/02/17 at 12:30 Midodrine (Proamatine) 2.5 mg BID@ PRN PO SBP <90 Last administered on 12:01; Admin Dose 2.5 MG; Start 03/02/17 at 12:30 Pantoprazole (Protonix Tab) 40 mg DAILY@06 PO Last administered on 03/10/17 05 :08; Admin Dose 40 MG; Start 03/03/17 at 06:00 Potassium Chloride (Klor-Con 20) 20 meq TID PO Last administered on 03/10/17 13:30; Admin Dose 20 MEQ; Start 03/05/17 at 21:00 Sodium Bicarbonate (Sodium Bicarbonate Tab) 650 mg TID PO Last administered on 03/10/17 13:30; Admin Dose 650 MG; Start 03/07/17 at 21:00 Magnesium Chloride 64 mg 64 mg TID PO Last administered on 03/10/17 13:30; Admin Dose 64 MG; Start 03/09/17 at 13:00 Cefepime HCl 50 ml @ 100 mls/hr Q12 IVPB Last administered on 03/10/17 09:00 ; Admin Dose 100 MLS/HR; Start 03/10/17 at 09:00 Vancomycin HCl 100 ml @ 100 mls/hr Q12H IVPB ; Start 03/11/17 at 02:00 Magnesium Sulfate (Magnesium Sulfate 2 Gm/50 ml) 50 ml @ 25 mls/hr ONCE ONCE IVPB Last administered on 03/10/17 18:08; Admin Dose 25 MLS/HR; Start at 18:00; Stop 03/10/17 at 19:59 ROMI ESPINO Mar 10, 2017 19:11
[2017-03-11] VITALS (12 sets, daily range): BP systolic 81–101; BP diastolic 42–55; PULSE 89–122; RESP 17–19
[2017-03-11] MEDS: MIDODRINE 2.5 MG TAB PO PRN ×2 (01:06→18:33)
[2017-03-11] MEDS: VANCOMYCIN 500MG/NS (PMX) 100 ML IVPB SCH ×2 (02:25→15:23)
[2017-03-11] MEDS: SOD CHLORIDE 0.9% 1,000 ML IV SCH ×3 (05:17→18:37)
[2017-03-11] MEDS: PANTOPRAZOLE (EC) 40 MG TAB PO SCH (05:34)
[2017-03-11 07:44] LABS: ABNORMAL IP MESSAGE 1; HEMATOCRIT 26.8 % (37.0-47.0); HEMOGLOBIN 9.1 g/dl (12.0-16.0); MEAN CORPUSCULAR HEMOGLOBIN 30.3 pg (29.0-33.0); MEAN CORPUSCULAR VOLUME 89.3 fl (82.0-101.0); MEAN PLATELET VOLUME 9.5 fl (7.4-10.4); PLATELET COUNT 164 10^3/UL (140-415); RED CELL DISTRIBUTION WIDTH 13.4 % (11.5-14.5); WHITE BLOOD COUNT 4.9 10^3/ul (4.8-10.8)
[2017-03-11 07:55] LABS: POSITIVE DIFF @See below
[2017-03-11 08:02] LABS: CALCIUM 7.8 mg/dl (8.4-10.2); CREATININE 0.78 mg/dl (0.44-1.00); POTASSIUM 3.6 mmol/L (3.5-5.1)
--- NOTE | 2017-03-11 09:40 | CONS ---
Date/Time of Note Date/Time of Note DATE: 03/11/17 TIME: 09:34 Assessment/Plan Assessment/Plan Additional Assessment/Plan 1. acute Kidney injury due to severe prerenal azotemia 2. Acute Hyperkalemia - now resolved, on K supplement 3. Nausea,vomiting 4. Hypomagnesemia 5. Metabolic acidosis 6. H/o Hirschsprung disease s/p colostomy 7. Hypomagnesemia severe plan: Continue current care, Cr normal, no magnesium availabe today continue KCl 20mEQ BID , on Magnesium chloride 64-increased to TID will follow up Consultation Date/Type/Reason Admit Date/Time Mar 02, 2017 at 05:33 Initial Consult Date 03/02/17 Type of Consultation: NEPHROLOGY Referring Provider: ROMI ESPINO Exam/Review of Systems Vital Signs Vitals Vital Signs Date Time Temp Pulse Resp B/P Pulse Ox O2 Delivery O2 Flow Rate FiO2 03/11/17 08:20 112 03/11/17 07:50 98.8 17 95/46 100 03/10/17 20:00 Nasal Cannula 2.0 Intake and Output 03/10/17 03/10/17 03/11/17 15:00 23:00 07:00 Intake Total 50 ml 800 ml 800 ml Balance 50 ml 800 ml 800 ml Exam Constitutional: alert, oriented Psych: no complaints Respiratory: clear to auscultation, intercostal retraction, normal air movement Cardiovascular: nl pulses, regular rate and rhythm Gastrointestinal: non-tender, soft Musculoskeletal: nl extremities to inspection Extremities: normal pulses 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: KNOTTER II-XII intact, nl mental status, nl speech, nl strength Skin: nl turgor Lymph: nl lymph nodes Results Result Diagram: 03/11/17 0713 03/11/17 0713 Results 24 hrs Laboratory Tests Test 03/11/17 07:13 White Blood Count 4.9 # Red Blood Count 3.00 L Hemoglobin 9.1 L Hematocrit 26.8 L Mean Corpuscular Volume 89.3 Mean Corpuscular Hemoglobin 30.3 Mean Corpuscular Hemoglobin Concent 34.0 Red Cell Distribution Width 13.4 Platelet Count 164 # Mean Platelet Volume 9.5 Neutrophils % Lymphocytes % Monocytes % Eosinophils % Basophils % Nucleated Red Blood Cells % 0.0 Neutrophils # (Manual) 3.9 Lymphocytes # Monocytes # Eosinophils # Basophils # Nucleated Red Blood Cells # Sodium Level 139 Potassium Level 3.6 Chloride Level 104 Carbon Dioxide Level 26 Anion Gap 13 Blood Urea Nitrogen 10 Creatinine 0.78 Glucose Level 99 Calcium Level 7.8 L Medications Medications Current Medications Sodium Chloride (NS) 1,000 ml @ 75 mls/hr [id number] IV Last administered on 03/10 15:39; Admin Dose 75 MLS/HR; Start 03/02/17 at 12:03 Ondansetron HCl (Zofran Inj) 4 mg Q6H PRN IV NAUSEA AND/OR VOMITING; Start at 12:30 Acetaminophen (Tylenol Tab) 650 mg Q6H PRN PO PAIN LEVEL 1-3 OR FEVER Last administered on 03/09/17 22:29; Admin Dose 650 MG; Start 03/02/17 at 12:30 Morphine Sulfate (morphine) 2 mg Q4H PRN IV PAIN LEVEL 7-10; Start 03/02/17 at 12:30 Famotidine (Pepcid Iv) 20 mg DAILY IV Last administered on 03/10/17 09:00; Admin Dose 20 MG; Start 03/02/17 at 14:00 Enoxaparin Sodium (Lovenox) 30 mg DAILY SC Last administered on 03/10/17 09:47 ; Admin Dose 30 MG; Start 03/03/17 at 09:00 Cyanocobalamin (Vitamin B12 Inj) 1,000 mcg Q28D IM Last administered on 16:13; Admin Dose 1,000 MCG; Start 03/02/17 at 12:30 Folic Acid (Folic Acid) 1 mg DAILY PO Last administered on 03/10/17 09:35; Admin Dose 1 MG; Start 03/03/17 at 09:00 Acetaminophen/ Hydrocodone Bitart ([place] (10/325)) 1 tab Q6H PRN PO PAIN; Start 03/02/17 at 12:30 Hydroxyzine Pamoate (Vistaril) 25 mg QHS PRN PO ITCHING Last administered on 00:24; Admin Dose 25 MG; Start 03/02/17 at 12:30 Midodrine (Proamatine) 2.5 mg BID@ PRN PO SBP <90 Last administered on 01:06; Admin Dose 2.5 MG; Start 03/02/17 at 12:30 Pantoprazole (Protonix Tab) 40 mg DAILY@06 PO Last administered on 03/11/17 05 :34; Admin Dose 40 MG; Start 03/03/17 at 06:00 Potassium Chloride (Klor-Con 20) 20 meq TID PO Last administered on 03/10/17 21:19; Admin Dose 20 MEQ; Start 03/05/17 at 21:00 Sodium Bicarbonate (Sodium Bicarbonate Tab) 650 mg TID PO Last administered on 03/10/17 21:19; Admin Dose 650 MG; Start 03/07/17 at 21:00 Magnesium Chloride 64 mg 64 mg TID PO Last administered on 03/10/17 21:19; Admin Dose 64 MG; Start 03/09/17 at 13:00 Cefepime HCl 50 ml @ 100 mls/hr Q12 IVPB Last administered on 03/10/17 21:19 ; Admin Dose 100 MLS/HR; Start 03/10/17 at 09:00 Vancomycin HCl (Vancocin) 100 ml @ 100 mls/hr Q12H IVPB Last administered on 02:25; Admin Dose 100 MLS/HR; Start 03/11/17 at 02:00 ROHAN VELÁZQUEZ MD Mar 11, 2017 09:40
[2017-03-11] MEDS: CEFEPIME 1GM/50 ML (PMX) 50 ML IVPB SCH ×2 (10:13→21:12)
[2017-03-11] MEDS: FAMOTIDINE 20 MG INJ IV SCH (10:13)
[2017-03-11] MEDS: FOLIC ACID 1 MG TAB PO SCH (10:14)
[2017-03-11] MEDS: POTASSIUM CHLORIDE (SR) 20 MEQ TAB PO SCH ×3 (10:15→21:11)
[2017-03-11] MEDS: MAGNESIUM CHLORIDE (SR) 64 MG TAB PO SCH ×3 (10:15→22:29)
[2017-03-11] MEDS: NA BICARBONATE 650 MG TAB PO SCH ×3 (10:15→21:11)
[2017-03-11] MEDS: ENOXAPARIN 30 MG/0.3 ML SYG SC SCH (10:21)
[2017-03-11 10:32] LABS: EOSINOPHILS # 0.1 10^3/ul (0.0-0.5); EOSINOPHILS % (M) 2 % (0.0-7.0); LYMPHOCYTES # 0.3 10^3/ul (0.8-2.9); METAMYELOCYTES %M 1 % (0-0); MONOCYTE # 0.2 10^3/ul (0.3-0.9); MONOCYTES % (M) 5 % (0-11)
--- NOTE | 2017-03-11 18:00 | PN ---
Date/Time of Note Date/Time of Note DATE: 03/11/17 TIME: 17:58 Assessment/Plan VTE Prophylaxis VTE Prophylaxis Intervention: SCD's Lines/Catheters [facility] Portacath Urinary Cath still in place: No Assessment/Plan Chief Complaint/Hosp Course Patient's continues to be tachycardic, afebrile. Tolerates diet well denies any nausea vomiting, large output from ileostomy Assessment/Plan -Possible sepsis negative rods urine and blood cultures, continue on broad- spectrum antibiotics, follow up on cultures and chest x-ray. Dr. Pineda is following an infection disease consultation. -Severe hypokalemia, resolved -Nausea and vomiting on admission, resolved -Acute kidney injury secondary to dehydration, Dr. Spain is following in nephrology consultation. Continue IV fluids -Electrolyte imbalances -History of Hirschsprung disease -Ileostomy Further recommendations based on clinical course. Plan of care discussed with Dr. Paez Problems: Exam/Review of Systems Vital Signs Vitals Vital Signs Date Time Temp Pulse Resp B/P Pulse Ox O2 Delivery O2 Flow Rate FiO2 03/11/17 16:05 103 03/11/17 15:38 98.3 17 85/42 100 03/10/17 20:00 Nasal Cannula 2.0 Intake and Output 03/10/17 03/10/17 03/11/17 15:00 23:00 07:00 Intake Total 50 ml 800 ml 800 ml Balance 50 ml 800 ml 800 ml Exam Constitutional: alert Head: normocephalic Neck: supple Respiratory: normal air movement Cardiovascular: nl pulses, other (Tachycardic), regular rate and rhythm Gastrointestinal: other (Ileostomy), soft Extremities: normal pulses Results Result Diagram: 03/11/17 0713 03/11/17 07 Results 24 hrs Laboratory Tests Test 03/11/17 07:13 White Blood Count 4.9 # Red Blood Count 3.00 L Hemoglobin 9.1 L Hematocrit 26.8 L Mean Corpuscular Volume 89.3 Mean Corpuscular Hemoglobin 30.3 Mean Corpuscular Hemoglobin Concent 34.0 Red Cell Distribution Width 13.4 Platelet Count 164 # Mean Platelet Volume 9.5 Neutrophils % Segmented Neutrophils % (Manual) 86 H Lymphocytes % Lymphocytes % (Manual) 6 L Monocytes % Monocytes % (Manual) 5 Eosinophils % Eosinophils % (Manual) 2 Basophils % Metamyelocytes % (manual) 1 H Nucleated Red Blood Cells % 0.0 Neutrophils # (Manual) Absolute Lymphocytes (Manual) 0.2 L Lymphocytes # 0.3 L Monocytes # 0.2 L Absolute Monocytes (Manual) 0.2 L Eosinophils # 0.1 Basophils # Metamyelocytes # 0.0 Nucleated Red Blood Cells # Sodium Level 139 Potassium Level 3.6 Chloride Level 104 Carbon Dioxide Level 26 Anion Gap 13 Blood Urea Nitrogen 10 Creatinine 0.78 Glucose Level 99 Calcium Level 7.8 L Medications Medications Current Medications Sodium Chloride (NS) 1,000 ml @ 75 mls/hr [id number] IV Last administered on 03/11 11:44; Admin Dose 75 MLS/HR; Start 03/02/17 at 12:03 Ondansetron HCl (Zofran Inj) 4 mg Q6H PRN IV NAUSEA AND/OR VOMITING; Start at 12:30 Acetaminophen (Tylenol Tab) 650 mg Q6H PRN PO PAIN LEVEL 1-3 OR FEVER Last administered on 03/09/17 22:29; Admin Dose 650 MG; Start 03/02/17 at 12:30 Morphine Sulfate (morphine) 2 mg Q4H PRN IV PAIN LEVEL 7-10; Start 03/02/17 at 12:30 Enoxaparin Sodium (Lovenox) 30 mg DAILY SC Last administered on 03/11/17 10:21 ; Admin Dose 30 MG; Start 03/03/17 at 09:00 Cyanocobalamin (Vitamin B12 Inj) 1,000 mcg Q28D IM Last administered on 16:13; Admin Dose 1,000 MCG; Start 03/02/17 at 12:30 Folic Acid (Folic Acid) 1 mg DAILY PO Last administered on 03/11/17 10:14; Admin Dose 1 MG; Start 03/03/17 at 09:00 Acetaminophen/ Hydrocodone Bitart ([place] (10/325)) 1 tab Q6H PRN PO PAIN; Start 03/02/17 at 12:30 Hydroxyzine Pamoate (Vistaril) 25 mg QHS PRN PO ITCHING Last administered on 00:24; Admin Dose 25 MG; Start 03/02/17 at 12:30 Midodrine (Proamatine) 2.5 mg BID@09,17 PRN PO SBP <90 Last administered on 01:06; Admin Dose 2.5 MG; Start 03/02/17 at 12:30 Pantoprazole (Protonix Tab) 40 mg DAILY@06 PO Last administered on 03/11/17 05 :34; Admin Dose 40 MG; Start 03/03/17 at 06:00 Potassium Chloride (Klor-Con 20) 20 meq TID PO Last administered on 03/11/17 13:40; Admin Dose 20 MEQ; Start 03/05/17 at 21:00 Sodium Bicarbonate (Sodium Bicarbonate Tab) 650 mg TID PO Last administered on 03/11/17 13:40; Admin Dose 650 MG; Start 03/07/17 at 21:00 Magnesium Chloride 64 mg 64 mg TID PO Last administered on 03/11/17 13:40; Admin Dose 64 MG; Start 03/09/17 at 13:00 Cefepime HCl 50 ml @ 100 mls/hr Q12 IVPB Last administered on 03/11/17 10:13 ; Admin Dose 100 MLS/HR; Start 03/10/17 at 09:00 Vancomycin HCl (Vancocin) 100 ml @ 100 mls/hr Q12H IVPB Last administered on 15:23; Admin Dose 100 MLS/HR; Start 03/11/17 at 02:00 Miscellaneous Information (*Rx Drug Level Order Reminder*) 1 ONCE ONCE XX ; Start 03/12/17 at 01:00; Stop 03/12/17 at 01:01 Famotidine (Pepcid) 20 mg DAILY PO ; Start 03/12/17 at 09:00 ROMI ESPINO Mar 11, 2017 18:00
--- NOTE | 2017-03-11 21:10 | CONS ---
Date/Time of Note Date/Time of Note DATE: 03/11/17 TIME: 20:53 Assessment/Plan Assessment/Plan Chief Complaint/Hosp Course - fever due to bacteremia - bacteremia and UTI due to Gram negative bacteria, Pt does not have UTI symptoms however. - recurrent lactic acidemia - posterior neck pain x3 months per Pt. XR showed mild degenerative spondylosis - probable gastroenteritis on admission, improved - s/p sepsis due to bacteremia - h/o bacteremia due to coag negative Staph hemolyticus on 12/26/2016 and Staph epidermidis on 12/27/2016, 12/31/2016 CoNS (not speciated) - h/o urine culture +MRSA, enterococci, lactobacillus on 12/24/2016 - h/o recurrent bacteremia due to MSSA in 10/2015 and 10/2016. Transesophageal echo on 11/12/2016 was negative for valvular vegetation - h/o low-level nonspecific increase in tracer uptake within the mediastinum on WBC tagged scan 12/31/2016 - h/o extensive catheterization - h/o persistent hypotension - h/o infected portacath, s/p removal in 2015-->new port was placed on 11/15/2016 - h/o possible small bowel obstruction, resolved - h/o acute kidney injury, resolved - Hirschsprung's disease, status post colectomy/ileostomy - h/o MRSA colonization recommendations: - in process: Gram negative bacteria in her blood cultures (1st specimen drawn from port, 2nd specimen drawn by phlebotomy, confirmed by Pt's RN Annamarie who spoke with the lab today), urine culture, MRSA screen - ordered: repeat blood cultures and lactic acid level in AM - continue empiric IV vancomycin and cefepime (03/09/2017-); if no gram positive bacteria in her cultures, IV vancomycin will be discontinued - will adjust her antibiotics based on the final culture results management d/w Pt, her RN and mother Problems: Consultation Date/Type/Reason Admit Date/Time Mar 02, 2017 at 05:33 Initial Consult Date 03/10/17 Type of Consultation: ID Referring Provider: ROMI ESPINO 24 HR Interval Summary Constitutional: no complaints Detailed Summary Eyes: no complaints ENT: no complaints Respiratory: no complaints Cardiovascular: no complaints Gastrointestinal: passing stool, No pain Genitourinary: no complaints Musculoskeletal: no complaints Skin: no complaints Neurologic: no complaints Exam/Review of Systems Vital Signs Vitals Vital Signs Date Time Temp Pulse Resp B/P Pulse Ox O2 Delivery O2 Flow Rate FiO2 03/11/17 20:32 97.6 112 19 101/54 100 03/10/17 20:00 Nasal Cannula 2.0 Intake and Output 03/10/17 03/10/17 03/11/17 15:00 23:00 07:00 Intake Total 50 ml 800 ml 800 ml Balance 50 ml 800 ml 800 ml Exam Constitutional: alert, oriented Psych: no complaints Head: atraumatic, normocephalic Eyes: nl conjunctiva, nl lids ENMT: nl external ears & nose, nl nasal mucosa & septum Neck: supple Respiratory: diminished breath sounds Cardiovascular: nl pulses, regular rate and rhythm Gastrointestinal: non-tender, other (+colostomy bag), soft Musculoskeletal: nl extremities to inspection Extremities: No edema 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: INSURANCE [employer]ETING REP II-XII intact, nl mental status Results Result Diagram: 03/11/17 0713 03/11/17 0713 Results 24 hrs Laboratory Tests Test 03/11/17 07:13 White Blood Count 4.9 # Red Blood Count 3.00 L Hemoglobin 9.1 L Hematocrit 26.8 L Mean Corpuscular Volume 89.3 Mean Corpuscular Hemoglobin 30.3 Mean Corpuscular Hemoglobin Concent 34.0 Red Cell Distribution Width 13.4 Platelet Count 164 # Mean Platelet Volume 9.5 Neutrophils % Segmented Neutrophils % (Manual) 86 H Lymphocytes % Lymphocytes % (Manual) 6 L Monocytes % Monocytes % (Manual) 5 Eosinophils % Eosinophils % (Manual) 2 Basophils % Metamyelocytes % (manual) 1 H Nucleated Red Blood Cells % 0.0 Neutrophils # (Manual) Absolute Lymphocytes (Manual) 0.2 L Lymphocytes # 0.3 L Monocytes # 0.2 L Absolute Monocytes (Manual) 0.2 L Eosinophils # 0.1 Basophils # Metamyelocytes # 0.0 Nucleated Red Blood Cells # Sodium Level 139 Potassium Level 3.6 Chloride Level 104 Carbon Dioxide Level 26 Anion Gap 13 Blood Urea Nitrogen 10 Creatinine 0.78 Glucose Level 99 Calcium Level 7.8 L Medications Medications Current Medications Sodium Chloride (NS) 1,000 ml @ 75 mls/hr [id number] IV Last administered on 03/11t 11:44; Admin Dose 75 MLS/HR; Start 03/02/17 at 12:03 Ondansetron HCl (Zofran Inj) 4 mg Q6H PRN IV NAUSEA AND/OR VOMITING; Start at 12:30 Acetaminophen (Tylenol Tab) 650 mg Q6H PRN PO PAIN LEVEL 1-3 OR FEVER Last administered on 03/09/17 22:29; Admin Dose 650 MG; Start 03/02/17 at 12:30 Morphine Sulfate (morphine) 2 mg Q4H PRN IV PAIN LEVEL 7-10; Start 03/02/17 at 12:30 Enoxaparin Sodium (Lovenox) 30 mg DAILY SC Last administered on 03/11/17 10:21 ; Admin Dose 30 MG; Start 03/03/17 at 09:00 Cyanocobalamin (Vitamin B12 Inj) 1,000 mcg Q28D IM Last administered on 16:13; Admin Dose 1,000 MCG; Start 03/02/17 at 12:30 Folic Acid (Folic Acid) 1 mg DAILY PO Last administered on 03/11/17 10:14; Admin Dose 1 MG; Start 03/03/17 at 09:00 Acetaminophen/ Hydrocodone Bitart ([place] (10/325)) 1 tab Q6H PRN PO PAIN; Start 03/02/17 at 12:30 Hydroxyzine Pamoate (Vistaril) 25 mg QHS PRN PO ITCHING Last administered on 00:24; Admin Dose 25 MG; Start 03/02/17 at 12:30 Midodrine (Proamatine) 2.5 mg BID@ PRN PO SBP <90 Last administered on 18:33; Admin Dose 2.5 MG; Start 03/02/17 at 12:30 Pantoprazole (Protonix Tab) 40 mg DAILY@06 PO Last administered on 03/11/17 05 :34; Admin Dose 40 MG; Start 03/03/17 at 06:00 Potassium Chloride (Klor-Con 20) 20 meq TID PO Last administered on 03/11/17 13:40; Admin Dose 20 MEQ; Start 03/05/17 at 21:00 Sodium Bicarbonate (Sodium Bicarbonate Tab) 650 mg TID PO Last administered on 03/11/17 13:40; Admin Dose 650 MG; Start 03/07/17 at 21:00 Magnesium Chloride 64 mg 64 mg TID PO Last administered on 03/11/17 13:40; Admin Dose 64 MG; Start 03/09/17 at 13:00 Cefepime HCl 50 ml @ 100 mls/hr Q12 IVPB Last administered on 03/11/17 10:13 ; Admin Dose 100 MLS/HR; Start 03/10/17 at 09:00 Vancomycin HCl (Vancocin) 100 ml @ 100 mls/hr Q12H IVPB Last administered on 15:23; Admin Dose 100 MLS/HR; Start 03/11/17 at 02:00 Miscellaneous Information (*Rx Drug Level Order Reminder*) 1 ONCE ONCE XX ; Start 03/12/17 at 01:00; Stop 03/12/17 at 01:01 Famotidine (Pepcid) 20 mg DAILY PO ; Start 03/12/17 at 09:00 TAWANDA FINK M.D. Mar 11, 2017 21:07
[2017-03-12] VITALS (13 sets, daily range): BP systolic 84–119; BP diastolic 51–69; PULSE 97–118; RESP 17–21
[2017-03-12] MEDS: SOD CHLORIDE 0.9% 1,000 ML IV SCH ×3 (00:49→21:17)
[2017-03-12] MEDS: VANCOMYCIN 500MG/NS (PMX) 100 ML IVPB SCH ×2 (02:12→15:16)
[2017-03-12] MEDS: PANTOPRAZOLE (EC) 40 MG TAB PO SCH (05:49)
[2017-03-12 07:17] LABS: ABNORMAL IP MESSAGE 1; BASOPHILS % 0.3 % (0.0-2.0); EOSINOPHILS # 0.2 10^3/ul (0.0-0.5); EOSINOPHILS % 4.6 % (0.0-7.0); HEMATOCRIT 27.9 % (37.0-47.0); LYMPHOCYTES # 0.5 10^3/ul (0.8-2.9); LYMPHOCYTES % 13.8 % (15.0-51.0); MEAN CORPUSCULAR HEMOGLOBIN 28.8 pg (29.0-33.0); MEAN CORPUSCULAR HGB CONC 32.3 g/dl (32.0-37.0); MEAN CORPUSCULAR VOLUME 89.4 fl (82.0-101.0); MEAN PLATELET VOLUME 10.1 fl (7.4-10.4); MONOCYTE # 0.4 10^3/ul (0.3-0.9); MONOCYTES % 11.7 % (0.0-11.0); NEUTROPHILS % 69.1 % (39.0-77.0); PLATELET COUNT 188 10^3/UL (140-415); RED BLOOD COUNT 3.12 10^6/ul (4.20-5.40); RED CELL DISTRIBUTION WIDTH 13.7 % (11.5-14.5); WHITE BLOOD COUNT 3.7 10^3/ul (4.8-10.8)
[2017-03-12 07:20] LABS: POSITIVE DIFF @See below
[2017-03-12 07:43] LABS: CALCIUM 8.5 mg/dl (8.4-10.2); CREATININE 0.8 mg/dl (0.44-1.00); POTASSIUM 4.4 mmol/L (3.5-5.1)
[2017-03-12] MEDS: FAMOTIDINE 20 MG TAB PO SCH (10:15)
[2017-03-12] MEDS: ENOXAPARIN 30 MG/0.3 ML SYG SC SCH (10:15)
[2017-03-12] MEDS: FOLIC ACID 1 MG TAB PO SCH (10:15)
[2017-03-12] MEDS: CEFEPIME 1GM/50 ML (PMX) 50 ML IVPB SCH ×2 (10:15→21:01)
[2017-03-12] MEDS: NA BICARBONATE 650 MG TAB PO SCH ×3 (10:15→21:01)
[2017-03-12] MEDS: POTASSIUM CHLORIDE (SR) 20 MEQ TAB PO SCH ×3 (10:15→21:01)
[2017-03-12] MEDS: MAGNESIUM CHLORIDE (SR) 64 MG TAB PO SCH ×3 (10:15→21:01)
--- NOTE | 2017-03-12 17:05 | CONS ---
Date/Time of Note Date/Time of Note DATE: 03/12/17 TIME: 17:03 Assessment/Plan Assessment/Plan Additional Assessment/Plan 1. acute Kidney injury due to severe prerenal azotemia 2. Acute Hyperkalemia with K 6.0 to now Hypokalemic 3. Nausea,vomiting 4. Hypomagnesemia 5. Metabolic acidosis 6. H/o Hirschsprung disease s/p colostomy 7. Hypomagnesemia severe plan: Continue current care, IVF, d/c IVF, Electrolytes and lactic acid normal today continue KCl 20mEQ BID , conitnue Magnesium chloride 64-increased to TID [place] 2.5mg BID will follow up Consultation Date/Type/Reason Admit Date/Time Mar 02, 2017 at 05:33 Initial Consult Date 03/02/17 Type of Consultation: NEPHROLOGY Referring Provider: ROMI ESPINO 24 HR Interval Summary Free Text/Dictation Afebrile, Lactic acid normal, Bp stable, afebrile, Exam/Review of Systems Vital Signs Vitals Vital Signs Date Time Temp Pulse Resp B/P Pulse Ox O2 Delivery O2 Flow Rate FiO2 03/12/17 16:28 97.9 109 18 84/51 99 03/11/17 20:00 Nasal Cannula 2.0 Intake and Output 03/11/17 03/11/17 03/12/17 14:59 22:59 06:59 Intake Total 1450 ml 1400 ml Output Total 800 ml Balance 650 ml 1400 ml Exam Constitutional: alert, oriented Respiratory: clear to auscultation, intercostal retraction, normal air movement Cardiovascular: nl pulses, regular rate and rhythm Gastrointestinal: non-tender, soft, + colostomy Musculoskeletal: nl extremities to inspection Extremities: normal pulses 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: PHARMACY DIRECTOR II-XII intact, nl mental status, nl speech, nl strength Results Result Diagram: 03/12/17 0641 03/12/17 0641 Results 24 hrs Laboratory Tests Test 03/12/17 00:45 03/12/17 06:41 Vancomycin Level Trough 13.2 White Blood Count 3.7 #L Red Blood Count 3.12 L Hemoglobin 9.0 L Hematocrit 27.9 L Mean Corpuscular Volume 89.4 Mean Corpuscular Hemoglobin 28.8 L Mean Corpuscular Hemoglobin Concent 32.3 Red Cell Distribution Width 13.7 Platelet Count 188 Mean Platelet Volume 10.1 Neutrophils % 69.1 Lymphocytes % 13.8 L Monocytes % 11.7 H Eosinophils % 4.6 Basophils % 0.3 Nucleated Red Blood Cells % 0.0 Neutrophils # (Manual) 2.6 Lymphocytes # 0.5 L Monocytes # 0.4 Eosinophils # 0.2 Basophils # 0.0 Nucleated Red Blood Cells # 0.0 Sodium Level 140 Potassium Level 4.4 Chloride Level 104 Carbon Dioxide Level 29 Anion Gap 11 Blood Urea Nitrogen 12 Creatinine 0.80 Glucose Level 84 Lactic Acid Level 1.3 Calcium Level 8.5 Medications Medications Current Medications Sodium Chloride (NS) 1,000 ml @ 75 mls/hr [id number] IV Last administered on 03/12 00:49; Admin Dose 75 MLS/HR; Start 03/02/17 at 12:03 Ondansetron HCl (Zofran Inj) 4 mg Q6H PRN IV NAUSEA AND/OR VOMITING; Start at 12:30 Acetaminophen (Tylenol Tab) 650 mg Q6H PRN PO PAIN LEVEL 1-3 OR FEVER Last administered on 03/09/17 22:29; Admin Dose 650 MG; Start 03/02/17 at 12:30 Morphine Sulfate (morphine) 2 mg Q4H PRN IV PAIN LEVEL 7-10; Start 03/02/17 at 12:30 Enoxaparin Sodium (Lovenox) 30 mg DAILY SC Last administered on 03/12/17 10:15 ; Admin Dose 30 MG; Start 03/03/17 at 09:00 Cyanocobalamin (Vitamin B12 Inj) 1,000 mcg Q28D IM Last administered on 16:13; Admin Dose 1,000 MCG; Start 03/02/17 at 12:30 Folic Acid (Folic Acid) 1 mg DAILY PO Last administered on 03/12/17 10:15; Admin Dose 1 MG; Start 03/03/17 at 09:00 Acetaminophen/ Hydrocodone Bitart ([place] (10/325)) 1 tab Q6H PRN PO PAIN; Start 03/02/17 at 12:30 Hydroxyzine Pamoate (Vistaril) 25 mg QHS PRN PO ITCHING Last administered on 00:24; Admin Dose 25 MG; Start 03/02/17 at 12:30 Midodrine (Proamatine) 2.5 mg BID@,17 PRN PO SBP <90 Last administered on 18:33; Admin Dose 2.5 MG; Start 03/02/17 at 12:30 Pantoprazole (Protonix Tab) 40 mg DAILY@06 PO Last administered on 03/12/17 05 :49; Admin Dose 40 MG; Start 03/03/17 at 06:00 Potassium Chloride (Klor-Con 20) 20 meq TID PO Last administered on 03/12/17 13:16; Admin Dose 20 MEQ; Start 03/05/17 at 21:00 Sodium Bicarbonate (Sodium Bicarbonate Tab) 650 mg TID PO Last administered on 03/12/17 13:16; Admin Dose 650 MG; Start 03/07/17 at 21:00 Magnesium Chloride 64 mg 64 mg TID PO Last administered on 03/12/17 13:16; Admin Dose 64 MG; Start 03/09/17 at 13:00 Cefepime HCl 50 ml @ 100 mls/hr Q12 IVPB Last administered on 03/12/17 10:15 ; Admin Dose 100 MLS/HR; Start 03/10/17 at 09:00 Vancomycin HCl (Vancocin) 100 ml @ 100 mls/hr Q12H IVPB Last administered on 15:16; Admin Dose 100 MLS/HR; Start 03/11/17 at 02:00 Famotidine (Pepcid) 20 mg DAILY PO Last administered on 03/12/17 10:15; Admin Dose 20 MG; Start 03/12/17 at 09:00 ROHAN VELÁZQUEZ MD Mar 12, 2017 17:05
--- NOTE | 2017-03-12 18:07 | PN ---
Date/Time of Note Date/Time of Note DATE: 03/12/17 TIME: 18:03 Assessment/Plan VTE Prophylaxis VTE Prophylaxis Intervention: SCD's Lines/Catheters IV [facility] Portacath Urinary Cath still in place: No Assessment/Plan Chief Complaint/Hosp Course Patient denies any nausea and vomiting, fever today. Cultures came back with gram-negative rods and gram-positive cocci in clusters, she is currently continued on broad-spectrum antibiotics. Assessment/Plan -Sepsis was positive blood cultures. Dr. Pineda is following an infection disease consultation. Continue broad-spectrum antibiotics. -Coli UTI. -Severe hypokalemia, resolved -Nausea and vomiting on admission, resolved -Acute kidney injury secondary to dehydration, Dr. Spain is following in nephrology consultation. Continue IV fluids -Electrolyte imbalances -History of Hirschsprung disease -Ileostomy -Right chest Port-A-Cath Further recommendations based on clinical course. Plan of care discussed with Dr. Paez Problems: Exam/Review of Systems Vital Signs Vitals Vital Signs Date Time Temp Pulse Resp B/P Pulse Ox O2 Delivery O2 Flow Rate FiO2 03/12/17 16:28 97.9 109 18 84/51 99 03/11/17 20:00 Nasal Cannula 2.0 Intake and Output 03/11/17 03/11/17 03/12/17 15:00 23:00 07:00 Intake Total 1450 ml 1400 ml Output Total 800 ml Balance 650 ml 1400 ml Exam Constitutional: alert Head: normocephalic Neck: supple Respiratory: normal air movement Cardiovascular: nl pulses, other (Tachycardic), regular rate and rhythm Gastrointestinal: other (Ileostomy), soft Extremities: normal pulses Results Result Diagram: 03/12/17 0641 03/12/17 0641 Results 24 hrs Laboratory Tests Test 03/12/17 00:45 03/12/17 06:41 Vancomycin Level Trough 13.2 White Blood Count 3.7 #L Red Blood Count 3.12 L Hemoglobin 9.0 L Hematocrit 27.9 L Mean Corpuscular Volume 89.4 Mean Corpuscular Hemoglobin 28.8 L Mean Corpuscular Hemoglobin Concent 32.3 Red Cell Distribution Width 13.7 Platelet Count 188 Mean Platelet Volume 10.1 Neutrophils % 69.1 Lymphocytes % 13.8 L Monocytes % 11.7 H Eosinophils % 4.6 Basophils % 0.3 Nucleated Red Blood Cells % 0.0 Neutrophils # (Manual) 2.6 Lymphocytes # 0.5 L Monocytes # 0.4 Eosinophils # 0.2 Basophils # 0.0 Nucleated Red Blood Cells # 0.0 Sodium Level 140 Potassium Level 4.4 Chloride Level 104 Carbon Dioxide Level 29 Anion Gap 11 Blood Urea Nitrogen 12 Creatinine 0.80 Glucose Level 84 Lactic Acid Level 1.3 Calcium Level 8.5 Medications Medications Current Medications Sodium Chloride (NS) 1,000 ml @ 75 mls/hr [id number] IV Last administered on 03/12 00:49; Admin Dose 75 MLS/HR; Start 03/02/17 at 12:03 Ondansetron HCl (Zofran Inj) 4 mg Q6H PRN IV NAUSEA AND/OR VOMITING; Start at 12:30 Acetaminophen (Tylenol Tab) 650 mg Q6H PRN PO PAIN LEVEL 1-3 OR FEVER Last administered on 03/09/17 22:29; Admin Dose 650 MG; Start 03/02/17 at 12:30 Morphine Sulfate (morphine) 2 mg Q4H PRN IV PAIN LEVEL 7-10; Start 03/02/17 at 12:30 Enoxaparin Sodium (Lovenox) 30 mg DAILY SC Last administered on 03/12/17 10:15 ; Admin Dose 30 MG; Start 03/03/17 at 09:00 Cyanocobalamin (Vitamin B12 Inj) 1,000 mcg Q28D IM Last administered on 16:13; Admin Dose 1,000 MCG; Start 03/02/17 at 12:30 Folic Acid (Folic Acid) 1 mg DAILY PO Last administered on 03/12/17 10:15; Admin Dose 1 MG; Start 03/03/17 at 09:00 Acetaminophen/ Hydrocodone Bitart ([place] (10/325)) 1 tab Q6H PRN PO PAIN; Start 03/02/17 at 12:30 Hydroxyzine Pamoate (Vistaril) 25 mg QHS PRN PO ITCHING Last administered on 00:24; Admin Dose 25 MG; Start 03/02/17 at 12:30 Midodrine (Proamatine) 2.5 mg BID@ PRN PO SBP <90 Last administered on 18:33; Admin Dose 2.5 MG; Start 03/02/17 at 12:30 Pantoprazole (Protonix Tab) 40 mg DAILY@06 PO Last administered on 03/12/17 05 :49; Admin Dose 40 MG; Start 03/03/17 at 06:00 Potassium Chloride (Klor-Con 20) 20 meq TID PO Last administered on 03/12/17 13:16; Admin Dose 20 MEQ; Start 03/05/17 at 21:00 Sodium Bicarbonate (Sodium Bicarbonate Tab) 650 mg TID PO Last administered on 03/12/17 13:16; Admin Dose 650 MG; Start 03/07/17 at 21:00 Magnesium Chloride 64 mg 64 mg TID PO Last administered on 03/12/17 13:16; Admin Dose 64 MG; Start 03/09/17 at 13:00 Cefepime HCl 50 ml @ 100 mls/hr Q12 IVPB Last administered on 03/12/17 10:15 ; Admin Dose 100 MLS/HR; Start 03/10/17 at 09:00 Vancomycin HCl (Vancocin) 100 ml @ 100 mls/hr Q12H IVPB Last administered on 15:16; Admin Dose 100 MLS/HR; Start 03/11/17 at 02:00 Famotidine (Pepcid) 20 mg DAILY PO Last administered on 03/12/17 10:15; Admin Dose 20 MG; Start 03/12/17 at 09:00 ROMI ESPINO Mar 12, 2017 18:07
--- NOTE | 2017-03-12 19:55 | CONS ---
[facility] HCIS Consult Follow up SOAP Patient Name: Lashell Martin Unit Number: [id number] Date of : 1975 Patient Status: Admitted Inpatient Attending Doctor: Sangeeta Prasad Edit: TAWANDA FINK M.D. on 03/13/17 @ 09:58 Navi attestation: I discussed the management with SARAH Colon and agree with her note. As of 03/13/2017, I recommend changing cefepime to ceftriaxone. Date/Time of Note Date/Time of Note DATE: 03/12/17 TIME: 19:46 Consult Date/Type/Reason Admit Date/Time Mar 02, 2017 at 05:33 Initial Consult Date 03/10/17 Type of Consultation: INFECTIOUS DISEASE Ordering Provider: ROMI ESPINO Subjective Did not get PT or get OOB today, does not want to get weak and has been doing exercises in bed Objective Vital Signs Date Time Temp Pulse Resp B/P Pulse Ox O2 Delivery O2 Flow Rate FiO2 03/12/17 19:38 98.0 104 19 119/61 99 03/11/17 20:00 Nasal Cannula 2.0 Intake and Output 03/11/17 03/11/17 03/12/17 15:00 23:00 07:00 Intake Total 1450 ml 1400 ml Output Total 800 ml Balance 650 ml 1400 ml Exam Constitutional: alert, oriented, seated in bed talking on the phone and does not appear to be in any acute distress Psych: no complaints Head: atraumatic, normocephalic Eyes: nl conjunctiva, nl lids ENMT: nl external ears & nose, nl nasal mucosa & septum Neck: supple Respiratory: CTA bilaterally Cardiovascular: regular rate and rhythm Gastrointestinal: soft non-tender, non distended, ileostomy RLQ draining browish liquid stool Musculoskeletal: normal extremities to inspection, warm, dry and no lesions Extremities: No edema 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: normal mental status and speech Results/Medications Result Diagram: 03/12/17 0641 03/12/17 0641 Results 24 hrs Laboratory Tests Test 03/12/17 00:45 03/12/17 06:41 Vancomycin Level Trough 13.2 White Blood Count 3.7 #L Red Blood Count 3.12 L Hemoglobin 9.0 L Hematocrit 27.9 L Mean Corpuscular Volume 89.4 Mean Corpuscular Hemoglobin 28.8 L Mean Corpuscular Hemoglobin Concent 32.3 Red Cell Distribution Width 13.7 Platelet Count 188 Mean Platelet Volume 10.1 Neutrophils % 69.1 Lymphocytes % 13.8 L Monocytes % 11.7 H Eosinophils % 4.6 Basophils % 0.3 Nucleated Red Blood Cells % 0.0 Neutrophils # (Manual) 2.6 Lymphocytes # 0.5 L Monocytes # 0.4 Eosinophils # 0.2 Basophils # 0.0 Nucleated Red Blood Cells # 0.0 Sodium Level 140 Potassium Level 4.4 Chloride Level 104 Carbon Dioxide Level 29 Anion Gap 11 Blood Urea Nitrogen 12 Creatinine 0.80 Glucose Level 84 Lactic Acid Level 1.3 Calcium Level 8.5 Medications Current Medications Sodium Chloride (NS) 1,000 ml @ 75 mls/hr [id number] IV Last administered on 03/12 19:07; Admin Dose 75 MLS/HR; Start 03/02/17 at 12:03 Ondansetron HCl (Zofran Inj) 4 mg Q6H PRN IV NAUSEA AND/OR VOMITING; Start at 12:30 Acetaminophen (Tylenol Tab) 650 mg Q6H PRN PO PAIN LEVEL 1-3 OR FEVER Last administered on 03/09/17 22:29; Admin Dose 650 MG; Start 03/02/17 at 12:30 Morphine Sulfate (morphine) 2 mg Q4H PRN IV PAIN LEVEL 7-10; Start 03/02/17 at 12:30 Enoxaparin Sodium (Lovenox) 30 mg DAILY SC Last administered on 03/12/17 10:15 ; Admin Dose 30 MG; Start 03/03/17 at 09:00 Cyanocobalamin (Vitamin B12 Inj) 1,000 mcg Q28D IM Last administered on 16:13; Admin Dose 1,000 MCG; Start 03/02/17 at 12:30 Folic Acid (Folic Acid) 1 mg DAILY PO Last administered on 03/12/17 10:15; Admin Dose 1 MG; Start 03/03/17 at 09:00 Acetaminophen/ Hydrocodone Bitart ([place] (10/325)) 1 tab Q6H PRN PO PAIN; Start 03/02/17 at 12:30 Hydroxyzine Pamoate (Vistaril) 25 mg QHS PRN PO ITCHING Last administered on 00:24; Admin Dose 25 MG; Start 03/02/17 at 12:30 Midodrine (Proamatine) 2.5 mg BID@ PRN PO SBP <90 Last administered on 18:33; Admin Dose 2.5 MG; Start 03/02/17 at 12:30 Pantoprazole (Protonix Tab) 40 mg DAILY@06 PO Last administered on 03/12/17 05 :49; Admin Dose 40 MG; Start 03/03/17 at 06:00 Potassium Chloride (Klor-Con 20) 20 meq TID PO Last administered on 03/12/17 13:16; Admin Dose 20 MEQ; Start 03/05/17 at 21:00 Sodium Bicarbonate (Sodium Bicarbonate Tab) 650 mg TID PO Last administered on 03/12/17 13:16; Admin Dose 650 MG; Start 03/07/17 at 21:00 Magnesium Chloride 64 mg 64 mg TID PO Last administered on 03/12/17 13:16; Admin Dose 64 MG; Start 03/09/17 at 13:00 Cefepime HCl 50 ml @ 100 mls/hr Q12 IVPB Last administered on 03/12/17 10:15 ; Admin Dose 100 MLS/HR; Start 03/10/17 at 09:00 Vancomycin HCl (Vancocin) 100 ml @ 100 mls/hr Q12H IVPB Last administered on 15:16; Admin Dose 100 MLS/HR; Start 03/11/17 at 02:00 Famotidine (Pepcid) 20 mg DAILY PO Last administered on 03/12/17 10:15; Admin Dose 20 MG; Start 03/12/17 at 09:00 Assessment/Plan Chief Complaint/Hosp Course Chief Complaint/Hosp Course - fever due to bacteremia - bacteremia and UTI due to Gram negative bacteria, Pt does not have UTI symptoms however. - recurrent lactic acidemia - posterior neck pain x3 months per Pt. XR showed mild degenerative spondylosis - probable gastroenteritis on admission, improved - s/p sepsis due to bacteremia - h/o bacteremia due to coag negative Staph hemolyticus on 12/26/2016 and Staph epidermidis on 12/27/2016, 12/31/2016 CoNS (not speciated) - h/o urine culture +MRSA, enterococci, lactobacillus on 12/24/2016 - h/o recurrent bacteremia due to MSSA in 10/2015 and 10/2016. Transesophageal echo on 11/12/2016 was negative for valvular vegetation - h/o low-level nonspecific increase in tracer uptake within the mediastinum on WBC tagged scan 12/31/2016 - h/o extensive catheterization - h/o persistent hypotension - h/o infected portacath, s/p removal in 2015-->new port was placed on 11/15/2016 - h/o possible small bowel obstruction, resolved - h/o acute kidney injury, resolved - Hirschsprung's disease, status post colectomy/ileostomy - h/o MRSA colonization Recommendations: - in process: Gram negative bacteria in her blood cultures (1st specimen drawn from port, 2nd specimen drawn by phlebotomy, confirmed by Pt's RN Annamarie who spoke with the lab today), urine culture, MRSA screen - ordered: repeat blood cultures and lactic acid level in AM - continue empiric IV vancomycin and cefepime (03/09/2017-); if no gram positive bacteria in her cultures, IV vancomycin will be discontinued - will adjust her antibiotics based on the final culture results management d/w Pt, her RN and mother Problems: Additional Assessment/Plan +MRSA nares culture collected on 03/10/17 - most likely colonized CHARLIEANGEL LITTLE Héctor Mar 12, 2017 19:55
[2017-03-12] MEDS: ONDANSETRON 4 MG INJ IV PRN (21:09)
[2017-03-13] VITALS (12 sets, daily range): BP systolic 81–104; BP diastolic 43–57; PULSE 81–115; RESP 16–20
[2017-03-13] MEDS: VANCOMYCIN 500MG/NS (PMX) 100 ML IVPB SCH ×2 (01:51→14:25)
[2017-03-13] MEDS: PANTOPRAZOLE (EC) 40 MG TAB PO SCH (05:49)
[2017-03-13] MEDS: POTASSIUM CHLORIDE (SR) 20 MEQ TAB PO SCH ×3 (08:31→20:36)
[2017-03-13] MEDS: MAGNESIUM CHLORIDE (SR) 64 MG TAB PO SCH ×3 (08:31→20:36)
[2017-03-13] MEDS: NA BICARBONATE 650 MG TAB PO SCH ×3 (08:32→20:36)
[2017-03-13] MEDS: FOLIC ACID 1 MG TAB PO SCH (08:32)
[2017-03-13] MEDS: FAMOTIDINE 20 MG TAB PO SCH (08:32)
[2017-03-13] MEDS: CEFEPIME 1GM/50 ML (PMX) 50 ML IVPB SCH (08:32)
[2017-03-13] MEDS: ENOXAPARIN 30 MG/0.3 ML SYG SC SCH (08:33)
--- NOTE | 2017-03-13 09:42 | CONS ---
Date/Time of Note Date/Time of Note DATE: 03/13/17 TIME: 09:41 Assessment/Plan Assessment/Plan Additional Assessment/Plan 1. acute Kidney injury due to severe prerenal azotemia 2. Acute Hyperkalemia with K 6.0 to now Hypokalemic 3. Nausea,vomiting 4. Hypomagnesemia 5. Metabolic acidosis 6. H/o Hirschsprung disease s/p colostomy 7. Hypomagnesemia severe plan: Continue current care, Electrolytes and lactic acid normal today ,continue NS at 75 cc/hr continue KCl 20mEQ BID , conitnue Magnesium chloride 64 TID [place] 2.5mg BID prn low BP will follow up Consultation Date/Type/Reason Admit Date/Time Mar 02, 2017 at 05:33 Initial Consult Date 03/02/17 Type of Consultation: NPEHROLOGY Referring Provider: ROMI ESPINO 24 HR Interval Summary Free Text/Dictation no acute events, BP stable,a febrile Exam/Review of Systems Vital Signs Vitals Vital Signs Date Time Temp Pulse Resp B/P Pulse Ox O2 Delivery O2 Flow Rate FiO2 03/13/17 08:29 113 03/13/17 07:49 98.2 16 82/50 100 03/12/17 20:00 Nasal Cannula 2.0 Intake and Output 03/12/17 03/12/17 03/13/17 15:00 23:00 07:00 Intake Total 2450 ml 350 ml Output Total 500 ml 450 ml Balance 1950 ml -100 ml Exam Constitutional: alert, oriented Respiratory: clear to auscultation, intercostal retraction, normal air movement Cardiovascular: nl pulses, regular rate and rhythm Gastrointestinal: non-tender, soft, + colostomy Musculoskeletal: nl extremities to inspection Extremities: normal pulses 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: AUTOMOTIVE ENGINEER II-XII intact, nl mental status, nl speech, nl strength Results Result Diagram: 03/12/17 0641 03/12/17 06 Medications Medications Current Medications Sodium Chloride (NS) 1,000 ml @ 75 mls/hr [id number] IV Last administered on 03/12 19:07; Admin Dose 75 MLS/HR; Start 03/02/17 at 12:03 Ondansetron HCl (Zofran Inj) 4 mg Q6H PRN IV NAUSEA AND/OR VOMITING Last administered on 03/12/17 21:09; Admin Dose 4 MG; Start 03/02/17 at 12:30 Acetaminophen (Tylenol Tab) 650 mg Q6H PRN PO PAIN LEVEL 1-3 OR FEVER Last administered on 03/09/17 22:29; Admin Dose 650 MG; Start 03/02/17 at 12:30 Morphine Sulfate (morphine) 2 mg Q4H PRN IV PAIN LEVEL 7-10; Start 03/02/17 at 12:30 Enoxaparin Sodium (Lovenox) 30 mg DAILY SC Last administered on 03/13/17 08:33 ; Admin Dose 30 MG; Start 03/03/17 at 09:00 Cyanocobalamin (Vitamin B12 Inj) 1,000 mcg Q28D IM Last administered on 16:13; Admin Dose 1,000 MCG; Start 03/02/17 at 12:30 Folic Acid (Folic Acid) 1 mg DAILY PO Last administered on 03/13/17 08:32; Admin Dose 1 MG; Start 03/03/17 at 09:00 Acetaminophen/ Hydrocodone Bitart ([place] (10/325)) 1 tab Q6H PRN PO PAIN; Start 03/02/17 at 12:30 Hydroxyzine Pamoate (Vistaril) 25 mg QHS PRN PO ITCHING Last administered on 00:24; Admin Dose 25 MG; Start 03/02/17 at 12:30 Midodrine (Proamatine) 2.5 mg BID@,17 PRN PO SBP <90 Last administered on 18:33; Admin Dose 2.5 MG; Start 03/02/17 at 12:30 Pantoprazole (Protonix Tab) 40 mg DAILY@06 PO Last administered on 03/13/17 05 :49; Admin Dose 40 MG; Start 03/03/17 at 06:00 Potassium Chloride (Klor-Con 20) 20 meq TID PO Last administered on 03/13/17 08:31; Admin Dose 20 MEQ; Start 03/05/17 at 21:00 Sodium Bicarbonate (Sodium Bicarbonate Tab) 650 mg TID PO Last administered on 03/13/17 08:32; Admin Dose 650 MG; Start 03/07/17 at 21:00 Magnesium Chloride 64 mg 64 mg TID PO Last administered on 03/13/17 08:31; Admin Dose 64 MG; Start 03/09/17 at 13:00 Cefepime HCl 50 ml @ 100 mls/hr Q12 IVPB Last administered on 03/13/17 08:32 ; Admin Dose 100 MLS/HR; Start 03/10/17 at 09:00 Vancomycin HCl (Vancocin) 100 ml @ 100 mls/hr Q12H IVPB Last administered on 01:51; Admin Dose 100 MLS/HR; Start 03/11/17 at 02:00 Famotidine (Pepcid) 20 mg DAILY PO Last administered on 03/13/17 08:32; Admin Dose 20 MG; Start 03/12/17 at 09:00 ROHAN VELÁZQUEZ MD Mar 13, 2017 09:42
--- NOTE | 2017-03-13 10:14 | PN ---
Date/Time of Note Date/Time of Note DATE: 03/13/17 TIME: 10:12 Assessment/Plan VTE Prophylaxis VTE Prophylaxis Intervention: other Lines/Catheters IV C[facility]ter Type (from [facility]): PORTACATH Urinary Cath still in place: No Assessment/Plan Assessment/Plan -Sepsis was positive blood cultures. Dr. Mcelroy is following an infection disease consultation. Continue broad-spectrum antibiotics. -Coli UTI. -Severe hypokalemia, resolved -Nausea and vomiting on admission, resolved -Acute kidney injury secondary to dehydration, Dr. Spain is following in nephrology consultation. Continue IV fluids -Electrolyte imbalances -History of Hirschsprung disease -Ileostomy -Right chest Port-A-Cath Further recommendations based on clinical course. Plan of care discussed with Dr. Paez Subjective 24 Hr Interval Summary Free Text/Dictation afebrile. hypotensive, sp IVF. cont to monitor. dw staff. Low Mag- fu labs. Respiratory: no complaints Cardiovascular: no complaints Gastrointestinal: no complaints Genitourinary: no complaints Musculoskeletal: no complaints Exam/Review of Systems Vital Signs Vitals Vital Signs Date Time Temp Pulse Resp B/P Pulse Ox O2 Delivery O2 Flow Rate FiO2 03/13/17 08:29 113 03/13/17 07:49 98.2 16 82/50 100 03/12/17 20:00 Nasal Cannula 2.0 Intake and Output 03/12/17 03/12/17 03/13/17 15:00 23:00 07:00 Intake Total 2450 ml 350 ml Output Total 500 ml 450 ml Balance 1950 ml -100 ml Exam Constitutional: alert, oriented Respiratory: clear to auscultation, normal air movement Cardiovascular: nl pulses, regular rate and rhythm Gastrointestinal: non-tender, other (ileostomy intact), soft Musculoskeletal: nl extremities to inspection Extremities: normal pulses 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: nl mental status, nl speech Results Result Diagram: 03/12/17 0641 03/12/17640 Medications Medications Current Medications Sodium Chloride (NS) 1,000 ml @ 75 mls/hr [id number] IV Last administered on 03/12 19:07; Admin Dose 75 MLS/HR; Start 03/02/17 at 12:03 Ondansetron HCl (Zofran Inj) 4 mg Q6H PRN IV NAUSEA AND/OR VOMITING Last administered on 03/12/17 21:09; Admin Dose 4 MG; Start 03/02/17 at 12:30 Acetaminophen (Tylenol Tab) 650 mg Q6H PRN PO PAIN LEVEL 1-3 OR FEVER Last administered on 03/09/17 22:29; Admin Dose 650 MG; Start 03/02/17 at 12:30 Morphine Sulfate (morphine) 2 mg Q4H PRN IV PAIN LEVEL 7-10; Start 03/02/17 at 12:30 Enoxaparin Sodium (Lovenox) 30 mg DAILY SC Last administered on 03/13/17 08:33 ; Admin Dose 30 MG; Start 03/03/17 at 09:00 Cyanocobalamin (Vitamin B12 Inj) 1,000 mcg Q28D IM Last administered on 16:13; Admin Dose 1,000 MCG; Start 03/02/17 at 12:30 Folic Acid (Folic Acid) 1 mg DAILY PO Last administered on 03/13/17 08:32; Admin Dose 1 MG; Start 03/03/17 at 09:00 Acetaminophen/ Hydrocodone Bitart ([place] (10/325)) 1 tab Q6H PRN PO PAIN; Start 03/02/17 at 12:30 Hydroxyzine Pamoate (Vistaril) 25 mg QHS PRN PO ITCHING Last administered on 00:24; Admin Dose 25 MG; Start 03/02/17 at 12:30 Midodrine (Proamatine) 2.5 mg BID@,17 PRN PO SBP <90 Last administered on 18:33; Admin Dose 2.5 MG; Start 03/02/17 at 12:30 Pantoprazole (Protonix Tab) 40 mg DAILY@06 PO Last administered on 03/13/17 05 :49; Admin Dose 40 MG; Start 03/03/17 at 06:00 Potassium Chloride (Klor-Con 20) 20 meq TID PO Last administered on 03/13/17 08:31; Admin Dose 20 MEQ; Start 03/05/17 at 21:00 Sodium Bicarbonate (Sodium Bicarbonate Tab) 650 mg TID PO Last administered on 03/13/17 08:32; Admin Dose 650 MG; Start 03/07/17 at 21:00 Magnesium Chloride 64 mg 64 mg TID PO Last administered on 03/13/17 08:31; Admin Dose 64 MG; Start 03/09/17 at 13:00 Vancomycin HCl (Vancocin) 100 ml @ 100 mls/hr Q12H IVPB Last administered on 01:51; Admin Dose 100 MLS/HR; Start 03/11/17 at 02:00 Famotidine 20 mg 20 mg DAILY PO Last administered on 03/13/17 08:32; Admin Dose 20 MG; Start 03/12/17 at 09:00 Ceftriaxone Sodium (Rocephin) 50 ml @ 100 mls/hr Q24H IVPB ; Start 03/13/17 at 10:00 DEVENDRA GOMES Mar 13, 2017 10:14
[2017-03-13 10:53] LABS: ABNORMAL IP MESSAGE 1; BASOPHILS % 0.4 % (0.0-2.0); EOSINOPHILS # 0.2 10^3/ul (0.0-0.5); EOSINOPHILS % 4.8 % (0.0-7.0); HEMATOCRIT 28.8 % (37.0-47.0); HEMOGLOBIN 9.4 g/dl (12.0-16.0); LYMPHOCYTES # 0.6 10^3/ul (0.8-2.9); LYMPHOCYTES % 12.9 % (15.0-51.0); MEAN CORPUSCULAR HEMOGLOBIN 30.3 pg (29.0-33.0); MEAN CORPUSCULAR HGB CONC 32.6 g/dl (32.0-37.0); MEAN CORPUSCULAR VOLUME 92.9 fl (82.0-101.0); MEAN PLATELET VOLUME 9.7 fl (7.4-10.4); MONOCYTE # 0.4 10^3/ul (0.3-0.9); MONOCYTES % 7.9 % (0.0-11.0); NEUTROPHILS % 73.3 % (39.0-77.0); PLATELET COUNT 272 10^3/UL (140-415); RED CELL DISTRIBUTION WIDTH 13.7 % (11.5-14.5); WHITE BLOOD COUNT 4.6 10^3/ul (4.8-10.8)
[2017-03-13 10:54] LABS: POSITIVE DIFF @See below
[2017-03-13 11:31] LABS: CALCIUM 8.6 mg/dl (8.4-10.2); CREATININE 0.84 mg/dl (0.44-1.00); POTASSIUM 4.1 mmol/L (3.5-5.1)
[2017-03-13] MEDS: CEFTRIAXONE 2 GM/50 ML (PMX) 50 ML IVPB SCH (11:42)
[2017-03-13] MEDS: SOD CHLORIDE 0.9% 1,000 ML IV SCH ×2 (11:43→23:57)
[2017-03-13] MEDS ORDERED: MAGNESIUM SULFATE 2 GM/50 ML 50 ML IVPB ONE (14:30)
--- NOTE | 2017-03-13 17:43 | CONS ---
RINKU BAILON AUDITING CODER 03/13/17 1743: Date/Time of Note Date/Time of Note DATE: 03/13/17 TIME: 17:33 Assessment/Plan Assessment/Plan Chief Complaint/Hosp Course - fever due to bacteremia - bacteremia due to Gram negative bacteria (E. Coli and Klebsiella pneumoniae) and Staph aureus - E. coli in urine culture. Pt does not have UTI symptoms. - recurrent lactic acidemia - posterior neck pain x3 months per Pt. XR showed mild degenerative spondylosis - probable gastroenteritis on admission, improved - s/p sepsis due to bacteremia - h/o bacteremia due to coag negative Staph hemolyticus on 12/26/2016 and Staph epidermidis on 12/27/2016, 12/31/2016 CoNS (not speciated) - h/o urine culture +MRSA, enterococci, lactobacillus on 12/24/2016 - h/o recurrent bacteremia due to MSSA in 10/2015 and 10/2016. Transesophageal echo on 11/12/2016 was negative for valvular vegetation - h/o low-level nonspecific increase in tracer uptake within the mediastinum on WBC tagged scan 12/31/2016 - h/o extensive catheterization - h/o persistent hypotension - h/o infected portacath, s/p removal in 2015-->new port was placed on 11/15/2016 - h/o possible small bowel obstruction, resolved - h/o acute kidney injury, resolved - Hirschsprung's disease, status post colectomy/ileostomy - MRSA colonization recommendations: - in process: repeat blood cultures (NTD) on 03/12, initial blood cultures from 2nd set (prelim- staph aureus) - change cefepime to ceftriaxone (03/13/2017-) - continue empiric IV vancomycin (03/09/2017-) - will adjust her antibiotics based on the final culture results management d/w patient and Dr. Mcelroy Problems: Consultation Date/Type/Reason Admit Date/Time Mar 02, 2017 at 05:33 Initial Consult Date 03/10/17 Type of Consultation: Infectious Disease Referring Provider: ROMI ESPINO 24 HR Interval Summary Free Text/Dictation Denies pain, SOB, n/v. Anxious about plan of care; hoping port will not have to be removed. Exam/Review of Systems Vital Signs Vitals Vital Signs Date Time Temp Pulse Resp B/P Pulse Ox O2 Delivery O2 Flow Rate FiO2 03/13/17 16:11 115 03/13/17 15:30 98.3 84/43 98 Room Air 03/13/17 07:49 16 03/12/17 20:00 2.0 Intake and Output 03/12/17 03/12/17 03/13/17 15:00 23:00 07:00 Intake Total 2450 ml 350 ml Output Total 500 ml 450 ml Balance 1950 ml -100 ml Exam Constitutional: alert, oriented Head: atraumatic, normocephalic Eyes: nl conjunctiva, nl lids ENMT: nl external ears & nose, nl nasal mucosa & septum Neck: supple Respiratory: diminished breath sounds Cardiovascular: nl pulses, regular rate and rhythm Gastrointestinal: non-tender, other (+colostomy bag), soft Musculoskeletal: nl extremities to inspection Extremities: Normal pulses, No edema 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: 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, nl mental status Results Result Diagram: 03/13/17 1000 03/13/17 1000 Results 24 hrs Laboratory Tests Test 03/13/17 10:00 White Blood Count 4.6 #L Red Blood Count 3.10 L Hemoglobin 9.4 L Hematocrit 28.8 L Mean Corpuscular Volume 92.9 Mean Corpuscular Hemoglobin 30.3 Mean Corpuscular Hemoglobin Concent 32.6 Red Cell Distribution Width 13.7 Platelet Count 272 # Mean Platelet Volume 9.7 Neutrophils % 73.3 Lymphocytes % 12.9 L Monocytes % 7.9 Eosinophils % 4.8 Basophils % 0.4 Nucleated Red Blood Cells % 0.0 Neutrophils # (Manual) 3.4 Lymphocytes # 0.6 L Monocytes # 0.4 Eosinophils # 0.2 Basophils # 0.0 Nucleated Red Blood Cells # 0.0 Sodium Level 144 Potassium Level 4.1 Chloride Level 107 Carbon Dioxide Level 25 Anion Gap 16 Blood Urea Nitrogen 14 Creatinine 0.84 Glucose Level 120 Calcium Level 8.6 Magnesium Level 1.0 L Medications Medications Current Medications Sodium Chloride (NS) 1,000 ml @ 75 mls/hr [id number] IV Last administered on 03/13 11:43; Admin Dose 75 MLS/HR; Start 03/02/17 at 12:03 Ondansetron HCl (Zofran Inj) 4 mg Q6H PRN IV NAUSEA AND/OR VOMITING Last administered on 03/12/17 21:09; Admin Dose 4 MG; Start 03/02/17 at 12:30 Acetaminophen (Tylenol Tab) 650 mg Q6H PRN PO PAIN LEVEL 1-3 OR FEVER Last administered on 03/09/17 22:29; Admin Dose 650 MG; Start 03/02/17 at 12:30 Morphine Sulfate (morphine) 2 mg Q4H PRN IV PAIN LEVEL 7-10; Start 03/02/17 at 12:30 Enoxaparin Sodium (Lovenox) 30 mg DAILY SC Last administered on 03/13/17 08:33 ; Admin Dose 30 MG; Start 03/03/17 at 09:00 Cyanocobalamin (Vitamin B12 Inj) 1,000 mcg Q28D IM Last administered on 16:13; Admin Dose 1,000 MCG; Start 03/02/17 at 12:30 Folic Acid (Folic Acid) 1 mg DAILY PO Last administered on 03/13/17 08:32; Admin Dose 1 MG; Start 03/03/17 at 09:00 Acetaminophen/ Hydrocodone Bitart ([place] (10/325)) 1 tab Q6H PRN PO PAIN; Start 03/02/17 at 12:30 Hydroxyzine Pamoate (Vistaril) 25 mg QHS PRN PO ITCHING Last administered on 00:24; Admin Dose 25 MG; Start 03/02/17 at 12:30 Midodrine (Proamatine) 2.5 mg BID@,17 PRN PO SBP <90 Last administered on 18:33; Admin Dose 2.5 MG; Start 03/02/17 at 12:30 Pantoprazole (Protonix Tab) 40 mg DAILY@06 PO Last administered on 03/13/17 05 :49; Admin Dose 40 MG; Start 03/03/17 at 06:00 Potassium Chloride (Klor-Con 20) 20 meq TID PO Last administered on 03/13/17 11:43; Admin Dose 20 MEQ; Start 03/05/17 at 21:00 Sodium Bicarbonate (Sodium Bicarbonate Tab) 650 mg TID PO Last administered on 03/13/17 11:43; Admin Dose 650 MG; Start 03/07/17 at 21:00 Magnesium Chloride 64 mg 64 mg TID PO Last administered on 03/13/17 11:42; Admin Dose 64 MG; Start 03/09/17 at 13:00 Vancomycin HCl (Vancocin) 100 ml @ 100 mls/hr Q12H IVPB Last administered on 14:25; Admin Dose 100 MLS/HR; Start 03/11/17 at 02:00 Famotidine 20 mg 20 mg DAILY PO Last administered on 03/13/17 08:32; Admin Dose 20 MG; Start 03/12/17 at 09:00 Ceftriaxone Sodium (Rocephin) 50 ml @ 100 mls/hr Q24H IVPB Last administered on 03/13/17 11:42; Admin Dose 100 MLS/HR; Start 03/13/17 at 10:00 Miscellaneous Information (*Rx Drug Level Order Reminder*) 1 ONCE ONCE XX ; Start 03/14/17 at 13:00; Stop 03/14/17 at 13:01 TAWANDA MCELROY M.D. 03/14/17 0918: Assessment/Plan Assessment/Plan Additional Assessment/Plan Navi attestation: I discussed the management with SARAH Bailon and agree with above Exam/Review of Systems Results Result Diagram: 03/13/17 1000 03/13/17 1000 RINKU BAILON NP Mar 13, 2017 17:43 TAWANDA MCELROY M.D. Mar 14, 2017 09:18
[2017-03-14] VITALS (11 sets, daily range): BP systolic 85–99; BP diastolic 49–61; PULSE 82–109; RESP 18–19
[2017-03-14] MEDS: VANCOMYCIN 500MG/NS (PMX) 100 ML IVPB SCH ×2 (03:30→16:15)
[2017-03-14] MEDS: SOD CHLORIDE 0.9% 1,000 ML IV SCH (03:34)
[2017-03-14] MEDS: PANTOPRAZOLE (EC) 40 MG TAB PO SCH (05:59)
[2017-03-14] MEDS: POTASSIUM CHLORIDE (SR) 20 MEQ TAB PO SCH ×3 (08:27→21:04)
[2017-03-14] MEDS: FOLIC ACID 1 MG TAB PO SCH (08:27)
[2017-03-14] MEDS: NA BICARBONATE 650 MG TAB PO SCH ×3 (08:27→21:04)
[2017-03-14] MEDS: ENOXAPARIN 30 MG/0.3 ML SYG SC SCH (08:27)
[2017-03-14] MEDS: MAGNESIUM CHLORIDE (SR) 64 MG TAB PO SCH ×3 (08:27→21:04)
[2017-03-14] MEDS: FAMOTIDINE 20 MG TAB PO SCH (08:28)
[2017-03-14] MEDS: CEFTRIAXONE 2 GM/50 ML (PMX) 50 ML IVPB SCH (08:28)
[2017-03-14 08:29] LABS: BASOPHILS % 0.2 % (0.0-2.0); EOSINOPHILS # 0.2 10^3/ul (0.0-0.5); HEMATOCRIT 27.7 % (37.0-47.0); HEMOGLOBIN 8.9 g/dl (12.0-16.0); LYMPHOCYTES # 0.6 10^3/ul (0.8-2.9); MEAN CORPUSCULAR HEMOGLOBIN 29.4 pg (29.0-33.0); MEAN CORPUSCULAR HGB CONC 32.1 g/dl (32.0-37.0); MEAN CORPUSCULAR VOLUME 91.4 fl (82.0-101.0); MEAN PLATELET VOLUME 9.5 fl (7.4-10.4); MONOCYTE # 0.4 10^3/ul (0.3-0.9); MONOCYTES % 8.6 % (0.0-11.0); NEUTROPHILS % 70.5 % (39.0-77.0); PLATELET COUNT 321 10^3/UL (140-415); RED BLOOD COUNT 3.03 10^6/ul (4.20-5.40); RED CELL DISTRIBUTION WIDTH 13.8 % (11.5-14.5); WHITE BLOOD COUNT 4.2 10^3/ul (4.8-10.8)
[2017-03-14 08:58] LABS: CALCIUM 8.8 mg/dl (8.4-10.2); CREATININE 0.85 mg/dl (0.44-1.00); MAGNESIUM 1.6 mg/dl (1.7-2.5); POTASSIUM 4.3 mmol/L (3.5-5.1)
--- NOTE | 2017-03-14 09:21 | CONS ---
Date/Time of Note Date/Time of Note DATE: 03/14/17 TIME: 09:19 Assessment/Plan Assessment/Plan Chief Complaint/Hosp Course - fever due to bacteremia, improving - bacteremia due to E. coli, kleb pneumo and MRSA - E. coli in urine culture. Pt does not have UTI symptoms. - recurrent lactic acidosis - posterior neck pain for "years." XR showed mild degenerative spondylosis - probable gastroenteritis on admission, improved - s/p sepsis due to bacteremia - h/o bacteremia due to coag negative Staph hemolyticus on 12/26/2016 and Staph epidermidis on 12/27/2016, 12/31/2016 CoNS (not speciated) - h/o urine culture +MRSA, enterococci, lactobacillus on 12/24/2016 - h/o recurrent bacteremia due to MSSA in 10/2015 and 10/2016. Transesophageal echo on 11/12/2016 was negative for valvular vegetation - h/o low-level nonspecific increase in tracer uptake within the mediastinum on WBC tagged scan 12/31/2016 - h/o extensive catheterization - h/o persistent hypotension - h/o infected portacath, s/p removal in 2015-->new port was placed on 11/15/2016 - h/o possible small bowel obstruction, resolved - h/o acute kidney injury, resolved - Hirschsprung's disease, status post colectomy/ileostomy - MRSA colonization recommendations: - in process: repeat blood cultures (NTD) on 03/12 - I recommend transthoracic echo to r/o endocarditis - continue ceftriaxone (03/13/2017-) - continue IV vancomycin (03/09/2017-) - start mupirocin for MRSA decolonization, plan for 10 days - if blood cultures are repeatedly positive, I recommend removal of port. We discussed this during her last admission management d/w Pt and her RN Problems: Consultation Date/Type/Reason Admit Date/Time Mar 02, 2017 at 05:33 Initial Consult Date 03/10/17 Type of Consultation: Infectious Disease Referring Provider: ROMI ESPINO 24 HR Interval Summary Constitutional: no complaints Detailed Summary Eyes: no complaints ENT: pain (chronic posterior neck pain for years) Respiratory: no complaints Cardiovascular: no complaints Gastrointestinal: passing stool Genitourinary: no complaints Musculoskeletal: no complaints Skin: no complaints Neurologic: no complaints Exam/Review of Systems Vital Signs Vitals Vital Signs Date Time Temp Pulse Resp B/P Pulse Ox O2 Delivery O2 Flow Rate FiO2 03/14/17 08:25 96 03/14/17 07:39 98.4 18 92/56 99 03/13/17 22:00 Nasal Cannula 2.0 Intake and Output 03/13/17 03/13/17 03/14/17 15:00 23:00 07:00 Intake Total 1675 ml 1750 ml Output Total 700 ml 500 ml Balance 975 ml 1250 ml Exam Constitutional: alert, frail, oriented Psych: nl mood/affect, no complaints Head: atraumatic, normocephalic Eyes: nl conjunctiva, nl lids ENMT: nl external ears & nose, nl nasal mucosa & septum Neck: supple Respiratory: diminished breath sounds Cardiovascular: nl pulses, regular rate and rhythm Gastrointestinal: non-tender, soft Musculoskeletal: nl extremities to inspection Extremities: No edema 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, nl mental status, nl speech Skin: other (skin near the port on R chest wall is clean) Results Result Diagram: 03/14/17 0745 03/14/17 0745 Results 24 hrs Laboratory Tests Test 03/13/17 10:00 03/14/17 07:45 White Blood Count 4.6 #L 4.2 L Red Blood Count 3.10 L 3.03 L Hemoglobin 9.4 L 8.9 L Hematocrit 28.8 L 27.7 L Mean Corpuscular Volume 92.9 91.4 Mean Corpuscular Hemoglobin 30.3 29.4 Mean Corpuscular Hemoglobin Concent 32.6 32.1 Red Cell Distribution Width 13.7 13.8 Platelet Count 272 # 321 Mean Platelet Volume 9.7 9.5 Neutrophils % 73.3 70.5 Lymphocytes % 12.9 L 15.0 Monocytes % 7.9 8.6 Eosinophils % 4.8 5.0 Basophils % 0.4 0.2 Nucleated Red Blood Cells % 0.0 0.0 Neutrophils # (Manual) 3.4 3.0 Lymphocytes # 0.6 L 0.6 L Monocytes # 0.4 0.4 Eosinophils # 0.2 0.2 Basophils # 0.0 0.0 Nucleated Red Blood Cells # 0.0 0.0 Sodium Level 144 140 Potassium Level 4.1 4.3 Chloride Level 107 105 Carbon Dioxide Level 25 29 Anion Gap 16 10 # Blood Urea Nitrogen 14 17 Creatinine 0.84 0.85 Glucose Level 120 88 Calcium Level 8.6 8.8 Magnesium Level 1.0 L 1.6 L Medications Medications Current Medications Sodium Chloride (NS) 1,000 ml @ 75 mls/hr [id number] IV Last administered on 03:34; Admin Dose 75 MLS/HR; Start 03/02/17 at 12:03 Ondansetron HCl (Zofran Inj) 4 mg Q6H PRN IV NAUSEA AND/OR VOMITING Last administered on 03/12/17 21:09; Admin Dose 4 MG; Start 03/02/17 at 12:30 Acetaminophen (Tylenol Tab) 650 mg Q6H PRN PO PAIN LEVEL 1-3 OR FEVER Last administered on 03/09/17 22:29; Admin Dose 650 MG; Start 03/02/17 at 12:30 Morphine Sulfate (morphine) 2 mg Q4H PRN IV PAIN LEVEL 7-10; Start 03/02/17 at 12:30 Enoxaparin Sodium (Lovenox) 30 mg DAILY SC Last administered on 03/14/17 08:27 ; Admin Dose 30 MG; Start 03/03/17 at 09:00 Cyanocobalamin (Vitamin B12 Inj) 1,000 mcg Q28D IM Last administered on 16:13; Admin Dose 1,000 MCG; Start 03/02/17 at 12:30 Folic Acid (Folic Acid) 1 mg DAILY PO Last administered on 03/14/17 08:27; Admin Dose 1 MG; Start 03/03/17 at 09:00 Acetaminophen/ Hydrocodone Bitart ([place] (10/325)) 1 tab Q6H PRN PO PAIN; Start 03/02/17 at 12:30 Hydroxyzine Pamoate (Vistaril) 25 mg QHS PRN PO ITCHING Last administered on 00:24; Admin Dose 25 MG; Start 03/02/17 at 12:30 Midodrine (Proamatine) 2.5 mg BID@17 PRN PO SBP <90 Last administered on 18:33; Admin Dose 2.5 MG; Start 03/02/17 at 12:30 Pantoprazole (Protonix Tab) 40 mg DAILY@06 PO Last administered on 03/14/17 05: 59; Admin Dose 40 MG; Start 03/03/17 at 06:00 Potassium Chloride (Klor-Con 20) 20 meq TID PO Last administered on 03/14/17 08 :27; Admin Dose 20 MEQ; Start 03/05/17 at 21:00 Sodium Bicarbonate (Sodium Bicarbonate Tab) 650 mg TID PO Last administered on 03/14/17 08:27; Admin Dose 650 MG; Start 03/07/17 at 21:00 Magnesium Chloride 64 mg 64 mg TID PO Last administered on 03/14/17 08:27; Admin Dose 64 MG; Start 03/09/17 at 13:00 Vancomycin HCl (Vancocin) 100 ml @ 100 mls/hr Q12H IVPB Last administered on 03:30; Admin Dose 100 MLS/HR; Start 03/11/17 at 02:00 Famotidine 20 mg 20 mg DAILY PO Last administered on 03/14/17 08:28; Admin Dose 20 MG; Start 03/12/17 at 09:00 Ceftriaxone Sodium (Rocephin) 50 ml @ 100 mls/hr Q24H IVPB Last administered on 03/14/17 08:28; Admin Dose 100 MLS/HR; Start 03/13/17 at 10:00 Miscellaneous Information (*Rx Drug Level Order Reminder*) 1 ONCE ONCE XX ; Start 03/14/17 at 13:00; Stop 03/14/17 at 13:01 TAWANDA FINK M.D. Mar 14, 2017 09:21
[2017-03-14] MEDS: MUPIROCIN 2% 15 GM CR TOP SCH ×2 (12:45→21:00)
[2017-03-14] MEDS: ONDANSETRON 4 MG INJ IV PRN (14:27)
--- NOTE | 2017-03-14 16:19 | CONS ---
Date/Time of Note Date/Time of Note DATE: 03/14/17 TIME: 16:18 Assessment/Plan Assessment/Plan Additional Assessment/Plan 1. acute Kidney injury due to severe prerenal azotemia 2. Acute Hyperkalemia with K 6.0 to now Hypokalemic 3. Nausea,vomiting 4. Hypomagnesemia 5. Metabolic acidosis 6. H/o Hirschsprung disease s/p colostomy 7. Hypomagnesemia severe plan: Continue current care, Electrolytes and lactic acid normal today ,continue NS at 75 cc/hr continue KCl 20mEQ BID , conitnue Magnesium chloride 64 TID Midorine 2.5mg BID prn low BP will follow up Consultation Date/Type/Reason Admit Date/Time Mar 02, 2017 at 05:33 Initial Consult Date 03/02/17 Type of Consultation: NEPHROLOGY Referring Provider: ROMI ESPINO Exam/Review of Systems Vital Signs Vitals Vital Signs Date Time Temp Pulse Resp B/P Pulse Ox O2 Delivery O2 Flow Rate FiO2 03/14/17 15:46 98.6 91 18 85/49 95 03/13/17 22:00 Nasal Cannula 2.0 Intake and Output 03/13/17 03/13/17 03/14/17 15:00 23:00 07:00 Intake Total 1675 ml 1750 ml Output Total 700 ml 500 ml Balance 975 ml 1250 ml Exam Constitutional: alert, oriented Respiratory: clear to auscultation, intercostal retraction, normal air movement Cardiovascular: nl pulses, regular rate and rhythm Gastrointestinal: non-tender, soft, + colostomy Musculoskeletal: nl extremities to inspection Extremities: normal pulses 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: [place]YE[place] STITCHER II-XII intact, nl mental status, nl speech, nl strength Results Result Diagram: 03/14/17 0745 03/14/17 0745 Results 24 hrs Laboratory Tests Test 03/14/17 07:45 03/14/17 14:18 White Blood Count 4.2 L Red Blood Count 3.03 L Hemoglobin 8.9 L Hematocrit 27.7 L Mean Corpuscular Volume 91.4 Mean Corpuscular Hemoglobin 29.4 Mean Corpuscular Hemoglobin Concent 32.1 Red Cell Distribution Width 13.8 Platelet Count 321 Mean Platelet Volume 9.5 Neutrophils % 70.5 Lymphocytes % 15.0 Monocytes % 8.6 Eosinophils % 5.0 Basophils % 0.2 Nucleated Red Blood Cells % 0.0 Neutrophils # (Manual) 3.0 Lymphocytes # 0.6 L Monocytes # 0.4 Eosinophils # 0.2 Basophils # 0.0 Nucleated Red Blood Cells # 0.0 Sodium Level 140 Potassium Level 4.3 Chloride Level 105 Carbon Dioxide Level 29 Anion Gap 10 # Blood Urea Nitrogen 17 Creatinine 0.85 Glucose Level 88 Calcium Level 8.8 Magnesium Level 1.6 L Vancomycin Level Trough 16.1 Medications Medications Current Medications Sodium Chloride (NS) 1,000 ml @ 75 mls/hr [id number] IV Last administered on 03:34; Admin Dose 75 MLS/HR; Start 03/02/17 at 12:03 Ondansetron HCl (Zofran Inj) 4 mg Q6H PRN IV NAUSEA AND/OR VOMITING Last administered on 03/14/17 14:27; Admin Dose 4 MG; Start 03/02/17 at 12:30 Acetaminophen (Tylenol Tab) 650 mg Q6H PRN PO PAIN LEVEL 1-3 OR FEVER Last administered on 03/09/17 22:29; Admin Dose 650 MG; Start 03/02/17 at 12:30 Morphine Sulfate (morphine) 2 mg Q4H PRN IV PAIN LEVEL 7-10; Start 03/02/17 at 12:30 Enoxaparin Sodium (Lovenox) 30 mg DAILY SC Last administered on 03/14/17 08:27 ; Admin Dose 30 MG; Start 03/03/17 at 09:00 Cyanocobalamin (Vitamin B12 Inj) 1,000 mcg Q28D IM Last administered on 16:13; Admin Dose 1,000 MCG; Start 03/02/17 at 12:30 Folic Acid (Folic Acid) 1 mg DAILY PO Last administered on 03/14/17 08:27; Admin Dose 1 MG; Start 03/03/17 at 09:00 Acetaminophen/ Hydrocodone Bitart ([place] (10/325)) 1 tab Q6H PRN PO PAIN; Start 03/02/17 at 12:30 Hydroxyzine Pamoate (Vistaril) 25 mg QHS PRN PO ITCHING Last administered on 00:24; Admin Dose 25 MG; Start 03/02/17 at 12:30 Midodrine (Proamatine) 2.5 mg BID@09, PRN PO SBP <90 Last administered on 18:33; Admin Dose 2.5 MG; Start 03/02/17 at 12:30 Pantoprazole (Protonix Tab) 40 mg DAILY@06 PO Last administered on 03/14/17 05: 59; Admin Dose 40 MG; Start 03/03/17 at 06:00 Potassium Chloride (Klor-Con 20) 20 meq TID PO Last administered on 03/14/17 12 :45; Admin Dose 20 MEQ; Start 03/05/17 at 21:00 Sodium Bicarbonate (Sodium Bicarbonate Tab) 650 mg TID PO Last administered on 03/14/17 12:45; Admin Dose 650 MG; Start 03/07/17 at 21:00 Magnesium Chloride 64 mg 64 mg TID PO Last administered on 03/14/17 12:45; Admin Dose 64 MG; Start 03/09/17 at 13:00 Vancomycin HCl (Vancocin) 100 ml @ 100 mls/hr Q12H IVPB Last administered on 16:15; Admin Dose 100 MLS/HR; Start 03/11/17 at 02:00 Famotidine 20 mg 20 mg DAILY PO Last administered on 03/14/17 08:28; Admin Dose 20 MG; Start 03/12/17 at 09:00 Ceftriaxone Sodium (Rocephin) 50 ml @ 100 mls/hr Q24H IVPB Last administered on 03/14/17 08:28; Admin Dose 100 MLS/HR; Start 03/13/17 at 10:00 Mupirocin (Bactroban) 1 applic BID TOP Last administered on 03/14/17 12:45; Admin Dose 1 APPLIC; Start 03/14/17 at 13:00; Stop 03/24/17 at 12:59 ROHAN VELÁZQUEZ MD Mar 14, 2017 16:19
[2017-03-14] MEDS ORDERED: MAGNESIUM SULFATE 2 GM/50 ML 50 ML IVPB ONE (16:30)
--- NOTE | 2017-03-14 19:31 | PN ---
Date/Time of Note Date/Time of Note DATE: 03/14/17 TIME: 19:30 Assessment/Plan Lines/Catheters IV [facility] RIGHT CHEST PORT A CATH Urinary Cath still in place: No Assessment/Plan Assessment/Plan -Sepsis was positive blood cultures. Dr. Mcelroy is following an infection disease consultation. Continue broad-spectrum antibiotics. -Coli UTI. --Electrolyte imbalances - Severe hypokalemia, resolved - hypomagnesium- 1.6 today -Nausea and vomiting on admission, resolved -Acute kidney injury secondary to dehydration, Dr. Spain is following in nephrology consultation. Continue IV fluids -History of Hirschsprung disease -Ileostomy -Right chest Port-A-Cath Further recommendations based on clinical course. Plan of care discussed with Dr. Paez Subjective 24 Hr Interval Summary Free Text/Dictation mother at bed side. all qs answered Exam/Review of Systems Vital Signs Vitals Vital Signs Date Time Temp Pulse Resp B/P Pulse Ox O2 Delivery O2 Flow Rate FiO2 03/14/17 16:31 100 03/14/17 15:46 98.6 18 85/49 95 03/13/17 22:00 Nasal Cannula 2.0 Intake and Output 03/13/17 03/13/17 03/14/17 14:59 22:59 06:59 Intake Total 1675 ml 1425 ml Output Total 700 ml 500 ml Balance 975 ml 925 ml Results Result Diagram: 03/14/17 0745 03/14/17 0745 Results 24 hrs Laboratory Tests Test 03/14/17 07:45 03/14/17 14:18 White Blood Count 4.2 L Red Blood Count 3.03 L Hemoglobin 8.9 L Hematocrit 27.7 L Mean Corpuscular Volume 91.4 Mean Corpuscular Hemoglobin 29.4 Mean Corpuscular Hemoglobin Concent 32.1 Red Cell Distribution Width 13.8 Platelet Count 321 Mean Platelet Volume 9.5 Neutrophils % 70.5 Lymphocytes % 15.0 Monocytes % 8.6 Eosinophils % 5.0 Basophils % 0.2 Nucleated Red Blood Cells % 0.0 Neutrophils # (Manual) 3.0 Lymphocytes # 0.6 L Monocytes # 0.4 Eosinophils # 0.2 Basophils # 0.0 Nucleated Red Blood Cells # 0.0 Sodium Level 140 Potassium Level 4.3 Chloride Level 105 Carbon Dioxide Level 29 Anion Gap 10 # Blood Urea Nitrogen 17 Creatinine 0.85 Glucose Level 88 Calcium Level 8.8 Magnesium Level 1.6 L Vancomycin Level Trough 16.1 Medications Medications Current Medications Sodium Chloride (NS) 1,000 ml @ 75 mls/hr [id number] IV Last administered on 03:34; Admin Dose 75 MLS/HR; Start 03/02/17 at 12:03 Ondansetron HCl (Zofran Inj) 4 mg Q6H PRN IV NAUSEA AND/OR VOMITING Last administered on 03/14/17 14:27; Admin Dose 4 MG; Start 03/02/17 at 12:30 Acetaminophen (Tylenol Tab) 650 mg Q6H PRN PO PAIN LEVEL 1-3 OR FEVER Last administered on 03/09/17 22:29; Admin Dose 650 MG; Start 03/02/17 at 12:30 Morphine Sulfate (morphine) 2 mg Q4H PRN IV PAIN LEVEL 7-10; Start 03/02/17 at 12:30 Enoxaparin Sodium (Lovenox) 30 mg DAILY SC Last administered on 03/14/17 08:27 ; Admin Dose 30 MG; Start 03/03/17 at 09:00 Cyanocobalamin (Vitamin B12 Inj) 1,000 mcg Q28D IM Last administered on 16:13; Admin Dose 1,000 MCG; Start 03/02/17 at 12:30 Folic Acid (Folic Acid) 1 mg DAILY PO Last administered on 03/14/17 08:27; Admin Dose 1 MG; Start 03/03/17 at 09:00 Acetaminophen/ Hydrocodone Bitart ([place] (10/325)) 1 tab Q6H PRN PO PAIN; Start 03/02/17 at 12:30 Hydroxyzine Pamoate (Vistaril) 25 mg QHS PRN PO ITCHING Last administered on 00:24; Admin Dose 25 MG; Start 03/02/17 at 12:30 Midodrine (Proamatine) 2.5 mg BID@,17 PRN PO SBP <90 Last administered on 18:33; Admin Dose 2.5 MG; Start 03/02/17 at 12:30 Pantoprazole (Protonix Tab) 40 mg DAILY@06 PO Last administered on 03/14/17 05: 59; Admin Dose 40 MG; Start 03/03/17 at 06:00 Potassium Chloride (Klor-Con 20) 20 meq TID PO Last administered on 03/14/17 12 :45; Admin Dose 20 MEQ; Start 03/05/17 at 21:00 Sodium Bicarbonate (Sodium Bicarbonate Tab) 650 mg TID PO Last administered on 03/14/17 12:45; Admin Dose 650 MG; Start 03/07/17 at 21:00 Magnesium Chloride (Mag 64) 64 mg TID PO Last administered on 03/14/17 12:45; Admin Dose 64 MG; Start 03/09/17 at 13:00 Famotidine 20 mg 20 mg DAILY PO Last administered on 03/14/17 08:28; Admin Dose 20 MG; Start 03/12/17 at 09:00 Ceftriaxone Sodium (Rocephin) 50 ml @ 100 mls/hr Q24H IVPB Last administered on 03/14/17 08:28; Admin Dose 100 MLS/HR; Start 03/13/17 at 10:00 Mupirocin 1 applic 1 applic BID TOP Last administered on 03/14/17 12:45; Admin Dose 1 APPLIC; Start 03/14/17 at 13:00; Stop 03/24/17 at 12:59 Vancomycin HCl 450 mg/Sodium Chloride 100 ml @ 100 mls/hr Q12H IVPB ; Start 03/15/17 at 04:00 Vancomycin HCl/ Sodium Chloride (Vancocin/NS) 100 ml @ 100 mls/hr Q12H IVPB ; Start 03/15/17 at 04:00 DEVENDRA GOMES Mar 14, 2017 19:31
[2017-03-15] VITALS (12 sets, daily range): BP systolic 80–93; BP diastolic 40–63; PULSE 78–113; RESP 17–19
[2017-03-15] MEDS: SOD CHLORIDE 0.9% 1,000 ML IV SCH ×2 (02:05→04:40)
[2017-03-15] MEDS ORDERED: VANCOMYCIN 450 MG in SOD CHLORIDE 0.9% 100 ML IVPB SCH (04:00)
[2017-03-15] MEDS: VANCOMYCIN 450 MG in SOD CHLORIDE 0.9% 100 ML IVPB SCH ×2 (04:52→15:37)
[2017-03-15] MEDS: PANTOPRAZOLE (EC) 40 MG TAB PO SCH (04:55)
[2017-03-15] MEDS: NA BICARBONATE 650 MG TAB PO SCH ×3 (09:00→21:17)
[2017-03-15] MEDS: MUPIROCIN 2% 15 GM CR TOP SCH ×2 (09:00→22:59)
[2017-03-15] MEDS: MAGNESIUM CHLORIDE (SR) 64 MG TAB PO SCH ×3 (09:00→21:17)
[2017-03-15] MEDS: CEFTRIAXONE 2 GM/50 ML (PMX) 50 ML IVPB SCH (10:04)
[2017-03-15] MEDS: FAMOTIDINE 20 MG TAB PO SCH (10:04)
[2017-03-15] MEDS: FOLIC ACID 1 MG TAB PO SCH (10:05)
[2017-03-15] MEDS: POTASSIUM CHLORIDE (SR) 20 MEQ TAB PO SCH ×3 (10:05→21:17)
[2017-03-15] MEDS: ENOXAPARIN 30 MG/0.3 ML SYG SC SCH (10:08)
--- NOTE | 2017-03-15 11:08 | PN ---
Date/Time of Note Date/Time of Note DATE: 03/15/17 TIME: 11:08 Assessment/Plan VTE Prophylaxis VTE Prophylaxis Intervention: other Lines/Catheters [facility] Type ([facility] port a cath Urinary Cath still in place: No Assessment/Plan Chief Complaint/Hosp Course -Sepsis was positive blood cultures. Dr. Mcelroy is following an infection disease consultation. Continue broad-spectrum antibiotics. -Coli UTI. --Electrolyte imbalances - Severe hypokalemia, resolved - hypomagnesium- 1.6 today -Nausea and vomiting on admission, resolved -Acute kidney injury secondary to dehydration, Dr. Spain is following in nephrology consultation. Continue IV fluids -History of Hirschsprung disease -Ileostomy -Right chest Port-A-Cath Problems: Subjective 24 Hr Interval Summary Free Text/Dictation Patient has no complaints Exam/Review of Systems Vital Signs Vitals Vital Signs Date Time Temp Pulse Resp B/P Pulse Ox O2 Delivery O2 Flow Rate FiO2 03/15/17 08:19 105 03/15/17 07:55 98.0 17 84/47 96 03/14/17 23:20 Nasal Cannula 2.0 Intake and Output 03/14/17 03/14/17 03/15/17 15:00 23:00 07:00 Intake Total 1700 ml 1200 ml Output Total 650 ml 650 ml Balance 1050 ml 550 ml Exam Constitutional: frail Head: atraumatic, normocephalic Neck: supple Respiratory: clear to auscultation Cardiovascular: regular rate and rhythm Gastrointestinal: non-tender, soft Extremities: normal pulses Results Result Diagram: 03/14/17 0745 03/14/17 0745 Results 24 hrs Laboratory Tests Test 03/14/17 14:18 Vancomycin Level Trough 16.1 Medications Medications Current Medications Sodium Chloride (NS) 1,000 ml @ 75 mls/hr [id number] IV Last administered on 04:40; Admin Dose 75 MLS/HR; Start 03/02/17 at 12:03 Ondansetron HCl (Zofran Inj) 4 mg Q6H PRN IV NAUSEA AND/OR VOMITING Last administered on 03/14/17 14:27; Admin Dose 4 MG; Start 03/02/17 at 12:30 Acetaminophen (Tylenol Tab) 650 mg Q6H PRN PO PAIN LEVEL 1-3 OR FEVER Last administered on 03/09/17 22:29; Admin Dose 650 MG; Start 03/02/17 at 12:30 Morphine Sulfate (morphine) 2 mg Q4H PRN IV PAIN LEVEL 7-10; Start 03/02/17 at 12:30 Enoxaparin Sodium (Lovenox) 30 mg DAILY SC Last administered on 03/15/17 10:08 ; Admin Dose 30 MG; Start 03/03/17 at 09:00 Cyanocobalamin (Vitamin B12 Inj) 1,000 mcg Q28D IM Last administered on 16:13; Admin Dose 1,000 MCG; Start 03/02/17 at 12:30 Folic Acid (Folic Acid) 1 mg DAILY PO Last administered on 03/15/17 10:05; Admin Dose 1 MG; Start 03/03/17 at 09:00 Acetaminophen/ Hydrocodone Bitart ([place] (10/325)) 1 tab Q6H PRN PO PAIN; Start 03/02/17 at 12:30 Hydroxyzine Pamoate (Vistaril) 25 mg QHS PRN PO ITCHING Last administered on 00:24; Admin Dose 25 MG; Start 03/02/17 at 12:30 Midodrine (Proamatine) 2.5 mg BID@ PRN PO SBP <90 Last administered on 18:33; Admin Dose 2.5 MG; Start 03/02/17 at 12:30 Pantoprazole (Protonix Tab) 40 mg DAILY@06 PO Last administered on 03/15/17 04: 55; Admin Dose 40 MG; Start 03/03/17 at 06:00 Potassium Chloride (Klor-Con 20) 20 meq TID PO Last administered on 03/15/17 10 :05; Admin Dose 20 MEQ; Start 03/05/17 at 21:00 Sodium Bicarbonate (Sodium Bicarbonate Tab) 650 mg TID PO Last administered on 03/15/17 09:00; Admin Dose 650 MG; Start 03/07/17 at 21:00 Magnesium Chloride (Mag 64) 64 mg TID PO Last administered on 03/15/17 09:00; Admin Dose 64 MG; Start 03/09/17 at 13:00 Famotidine 20 mg 20 mg DAILY PO Last administered on 9/2/17at 10:04; Admin Dose 20 MG; Start 03/12/17 at 09:00 Ceftriaxone Sodium (Rocephin) 50 ml @ 100 mls/hr Q24H IVPB Last administered on 03/15/17 10:04; Admin Dose 100 MLS/HR; Start 03/13/17 at 10:00 Mupirocin 1 applic 1 applic BID TOP Last administered on 03/15/17 09:00; Admin Dose 1 APPLIC; Start 03/14/17 at 13:00; Stop 03/24/17 at 12:59 Vancomycin HCl/ Sodium Chloride (Vancocin/NS) 100 ml @ 100 mls/hr Q12H IVPB Last administered on 03/15/17 04:52; Admin Dose 100 MLS/HR; Start 03/15/17 at 04: 00 GINGER MOSES Mar 15, 2017 11:08
--- NOTE | 2017-03-15 12:16 | CONS ---
Date/Time of Note Date/Time of Note DATE: 03/15/17 TIME: 12:11 Assessment/Plan Assessment/Plan Additional Assessment/Plan 1. acute Kidney injury due to severe prerenal azotemia 2. Acute Hyperkalemia with K 6.0 to now Hypokalemic- resolved 3. Nausea,vomiting -none at present 4. Hypomagnesemia- 1.6 today- will give 1 GM mag. am Mag levels 5. Metabolic acidosis 6. H/o Hirschsprung disease s/p colostomy 7. Anemia- Transfuse PRN plan: -Continue current care, Electrolytes and lactic acid normal today ,continue NS at 75 cc/hr -continue KCl 20mEQ BID , conitnue Magnesium chloride 64 TID -Midorine 2.5mg BID prn low BP -will follow up Consultation Date/Type/Reason Admit Date/Time Mar 02, 2017 at 05:33 Initial Consult Date 03/10/17 Type of Consultation: NEPHROLOGY Referring Provider: ROMI ESPINO 24 HR Interval Summary Subjective hx not possible: other Detailed Summary Respiratory: no complaints Cardiovascular: no complaints Gastrointestinal: no complaints Genitourinary: no complaints Musculoskeletal: no complaints Skin: no complaints Exam/Review of Systems Vital Signs Vitals Vital Signs Date Time Temp Pulse Resp B/P Pulse Ox O2 Delivery O2 Flow Rate FiO2 03/15/17 11:54 97.9 107 17 90/45 99 03/14/17 23:20 Nasal Cannula 2.0 Intake and Output 03/14/17 03/14/17 03/15/17 15:00 23:00 07:00 Intake Total 1700 ml 1200 ml Output Total 650 ml 650 ml Balance 1050 ml 550 ml Exam Constitutional: alert, oriented Respiratory: clear to auscultation, normal air movement Cardiovascular: nl pulses, regular rate and rhythm Gastrointestinal: non-tender, other (sp colostomy), soft Musculoskeletal: nl extremities to inspection Extremities: normal pulses 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: nl mental status, nl speech Results Result Diagram: 03/14/17 0745 03/14/17 0745 Results 24 hrs Laboratory Tests Test 03/14/17 14:18 Vancomycin Level Trough 16.1 Medications Medications Current Medications Sodium Chloride (NS) 1,000 ml @ 75 mls/hr [id number] IV Last administered on t 04:40; Admin Dose 75 MLS/HR; Start 03/02/17 at 12:03 Ondansetron HCl (Zofran Inj) 4 mg Q6H PRN IV NAUSEA AND/OR VOMITING Last administered on 03/14/17 14:27; Admin Dose 4 MG; Start 03/02/17 at 12:30 Acetaminophen (Tylenol Tab) 650 mg Q6H PRN PO PAIN LEVEL 1-3 OR FEVER Last administered on 03/09/17 22:29; Admin Dose 650 MG; Start 03/02/17 at 12:30 Morphine Sulfate (morphine) 2 mg Q4H PRN IV PAIN LEVEL 7-10; Start 03/02/17 at 12:30 Enoxaparin Sodium (Lovenox) 30 mg DAILY SC Last administered on 03/15/17 10:08 ; Admin Dose 30 MG; Start 03/03/17 at 09:00 Cyanocobalamin (Vitamin B12 Inj) 1,000 mcg Q28D IM Last administered on 16:13; Admin Dose 1,000 MCG; Start 03/02/17 at 12:30 Folic Acid (Folic Acid) 1 mg DAILY PO Last administered on 03/15/17 10:05; Admin Dose 1 MG; Start 03/03/17 at 09:00 Acetaminophen/ Hydrocodone Bitart ([place] (10/325)) 1 tab Q6H PRN PO PAIN; Start 03/02/17 at 12:30 Hydroxyzine Pamoate (Vistaril) 25 mg QHS PRN PO ITCHING Last administered on 00:24; Admin Dose 25 MG; Start 03/02/17 at 12:30 Midodrine (Proamatine) 2.5 mg BID@17 PRN PO SBP <90 Last administered on 18:33; Admin Dose 2.5 MG; Start 03/02/17 at 12:30 Pantoprazole (Protonix Tab) 40 mg DAILY@06 PO Last administered on 03/15/17 04: 55; Admin Dose 40 MG; Start 03/03/17 at 06:00 Potassium Chloride (Klor-Con 20) 20 meq TID PO Last administered on 03/15/17 10 :05; Admin Dose 20 MEQ; Start 03/05/17 at 21:00 Sodium Bicarbonate (Sodium Bicarbonate Tab) 650 mg TID PO Last administered on 03/15/17 09:00; Admin Dose 650 MG; Start 03/07/17 at 21:00 Magnesium Chloride (Mag 64) 64 mg TID PO Last administered on 03/15/17 09:00; Admin Dose 64 MG; Start 03/09/17 at 13:00 Famotidine 20 mg 20 mg DAILY PO Last administered on 03/15/17 10:04; Admin Dose 20 MG; Start 03/12/17 at 09:00 Ceftriaxone Sodium (Rocephin) 50 ml @ 100 mls/hr Q24H IVPB Last administered on 03/15/17 10:04; Admin Dose 100 MLS/HR; Start 03/13/17 at 10:00 Mupirocin 1 applic 1 applic BID TOP Last administered on 03/15/17 09:00; Admin Dose 1 APPLIC; Start 03/14/17 at 13:00; Stop 03/24/17 at 12:59 Vancomycin HCl/ Sodium Chloride (Vancocin/NS) 100 ml @ 100 mls/hr Q12H IVPB Last administered on 03/15/17 04:52; Admin Dose 100 MLS/HR; Start 03/15/17 at 04: 00 DEVENDRA GOMES Mar 15, 2017 12:16
[2017-03-15] MEDS ORDERED: MAGNESIUM SULFATE 1 GM/D5W 100 ML IVPB ONE (13:00)
--- NOTE | 2017-03-15 19:17 | CONS ---
RINKU BAILON ACCESS NURSE 03/15/17 1916: Date/Time of Note Date/Time of Note DATE: 03/15/17 TIME: 19:12 Assessment/Plan Assessment/Plan Chief Complaint/Hosp Course - fever due to bacteremia, improving - bacteremia due to E. coli, kleb pneumo and MRSA - E. coli in urine culture. Pt does not have UTI symptoms. - recurrent lactic acidosis - posterior neck pain for "years." XR showed mild degenerative spondylosis - probable gastroenteritis on admission, improved - s/p sepsis due to bacteremia - h/o bacteremia due to coag negative Staph hemolyticus on 12/26/2016 and Staph epidermidis on 12/27/2016, 12/31/2016 CoNS (not speciated) - h/o urine culture +MRSA, enterococci, lactobacillus on 12/24/2016 - h/o recurrent bacteremia due to MSSA in 10/2015 and 10/2016. Transesophageal echo on 11/12/2016 was negative for valvular vegetation - h/o low-level nonspecific increase in tracer uptake within the mediastinum on WBC tagged scan 12/31/2016 - h/o extensive catheterization - h/o persistent hypotension - h/o infected portacath, s/p removal in 2015-->new port was placed on 11/15/2016 - h/o possible small bowel obstruction, resolved - h/o acute kidney injury, resolved - Hirschsprung's disease, status post colectomy/ileostomy - MRSA colonization - hypomagnesium recommendations: - in process: repeat blood cultures (NTD) on 03/12 - we recommend transthoracic echo to r/o endocarditis - continue ceftriaxone (03/13/2017-) - continue IV vancomycin (03/09/2017-) - continue mupirocin (03/14/2017-) for MRSA decolonization, plan for 10 days - If blood cultures are repeatedly positive, we recommend removal of port. We discussed this during her last admission. Management d/w patient and Dr. Mcelroy Problems: Consultation Date/Type/Reason Admit Date/Time Mar 02, 2017 at 05:33 Initial Consult Date 03/10/17 Type of Consultation: Infectious Disease Referring Provider: ROMI ESPINO 24 HR Interval Summary Free Text/Dictation No acute issues. Denies pain, SOB, n/v, dysuria. Exam/Review of Systems Vital Signs Vitals Vital Signs Date Time Temp Pulse Resp B/P Pulse Ox O2 Delivery O2 Flow Rate FiO2 03/15/17 16:59 90 03/15/17 15:44 98.0 18 82/49 100 03/14/17 23:20 Nasal Cannula 2.0 Intake and Output 03/14/17 03/14/17 03/15/17 15:00 23:00 07:00 Intake Total 1700 ml 1200 ml Output Total 650 ml 650 ml Balance 1050 ml 550 ml Exam Constitutional: alert, oriented Head: atraumatic, normocephalic Eyes: nl conjunctiva, nl lids ENMT: nl external ears & nose, nl nasal mucosa & septum Neck: supple Respiratory: diminished breath sounds Cardiovascular: nl pulses, regular rate and rhythm Gastrointestinal: non-tender, other (+colostomy bag), soft Musculoskeletal: nl extremities to inspection Extremities: Normal pulses, No edema 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: CANE BURNER II-XII intact, nl mental status Skin: nl turgor, other (R chest wall port intact with no e/o infection) Results Result Diagram: 03/14/17 0745 03/14/17 0745 Medications Medications Current Medications Sodium Chloride (NS) 1,000 ml @ 75 mls/hr [id number] IV Last administered on 04:40; Admin Dose 75 MLS/HR; Start 03/02/17 at 12:03 Ondansetron HCl (Zofran Inj) 4 mg Q6H PRN IV NAUSEA AND/OR VOMITING Last administered on 03/14/17 14:27; Admin Dose 4 MG; Start 03/02/17 at 12:30 Acetaminophen (Tylenol Tab) 650 mg Q6H PRN PO PAIN LEVEL 1-3 OR FEVER Last administered on 03/09/17 22:29; Admin Dose 650 MG; Start 03/02/17 at 12:30 Morphine Sulfate (morphine) 2 mg Q4H PRN IV PAIN LEVEL 7-10; Start 03/02/17 at 12:30 Enoxaparin Sodium (Lovenox) 30 mg DAILY SC Last administered on 03/15/17 10:08 ; Admin Dose 30 MG; Start 03/03/17 at 09:00 Cyanocobalamin (Vitamin B12 Inj) 1,000 mcg Q28D IM Last administered on 16:13; Admin Dose 1,000 MCG; Start 03/02/17 at 12:30 Folic Acid (Folic Acid) 1 mg DAILY PO Last administered on 03/15/17 10:05; Admin Dose 1 MG; Start 03/03/17 at 09:00 Acetaminophen/ Hydrocodone Bitart ([place] (10/325)) 1 tab Q6H PRN PO PAIN; Start 03/02/17 at 12:30 Hydroxyzine Pamoate (Vistaril) 25 mg QHS PRN PO ITCHING Last administered on 00:24; Admin Dose 25 MG; Start 03/02/17 at 12:30 Midodrine (Proamatine) 2.5 mg BID@ PRN PO SBP <90 Last administered on 18:33; Admin Dose 2.5 MG; Start 03/02/17 at 12:30 Pantoprazole (Protonix Tab) 40 mg DAILY@06 PO Last administered on 03/15/17 04: 55; Admin Dose 40 MG; Start 03/03/17 at 06:00 Potassium Chloride (Klor-Con 20) 20 meq TID PO Last administered on 03/15/17 13 :08; Admin Dose 20 MEQ; Start 03/05/17 at 21:00 Sodium Bicarbonate (Sodium Bicarbonate Tab) 650 mg TID PO Last administered on 03/15/17 13:08; Admin Dose 650 MG; Start 03/07/17 at 21:00 Magnesium Chloride (Mag 64) 64 mg TID PO Last administered on 03/15/17 13:08; Admin Dose 64 MG; Start 03/09/17 at 13:00 Famotidine 20 mg 20 mg DAILY PO Last administered on 03/15/17 10:04; Admin Dose 20 MG; Start 03/12/17 at 09:00 Ceftriaxone Sodium (Rocephin) 50 ml @ 100 mls/hr Q24H IVPB Last administered on 03/15/17 10:04; Admin Dose 100 MLS/HR; Start 03/13/17 at 10:00 Mupirocin 1 applic 1 applic BID TOP Last administered on 03/15/17 09:00; Admin Dose 1 APPLIC; Start 03/14/17 at 13:00; Stop 03/24/17 at 12:59 Vancomycin HCl/ Sodium Chloride (Vancocin/NS) 100 ml @ 100 mls/hr Q12H IVPB Last administered on 03/15/17t 15:37; Admin Dose 100 MLS/HR; Start 03/15/17 at 04: 00 TAWANDA MCELROY M.D. 03/16/17 1806: Assessment/Plan Assessment/Plan Additional Assessment/Plan Navi attestation: I discussed the management with SARAH Bailon and agree with above Exam/Review of Systems Results Result Diagram: 03/14/17 0745 03/14/17 0745 RINKU BAILON NP Mar 15, 2017 19:16 TAWANDA MCELROY M.D. Mar 16, 2017 18:06
[2017-03-16] VITALS (12 sets, daily range): BP systolic 81–98; BP diastolic 46–67; PULSE 85–107; RESP 18–19
[2017-03-16] MEDS: SOD CHLORIDE 0.9% 1,000 ML IV SCH ×3 (00:20→18:37)
[2017-03-16] MEDS: VANCOMYCIN 450 MG in SOD CHLORIDE 0.9% 100 ML IVPB SCH ×2 (04:41→16:00)
[2017-03-16] MEDS: PANTOPRAZOLE (EC) 40 MG TAB PO SCH (06:05)
[2017-03-16 08:21] LABS: ABNORMAL IP MESSAGE 1; BASOPHILS % 0.2 % (0.0-2.0); EOSINOPHILS # 0.2 10^3/ul (0.0-0.5); EOSINOPHILS % 3.9 % (0.0-7.0); HEMATOCRIT 23.5 % (37.0-47.0); HEMOGLOBIN 7.4 g/dl (12.0-16.0); LYMPHOCYTES # 0.5 10^3/ul (0.8-2.9); MEAN CORPUSCULAR HEMOGLOBIN 29.5 pg (29.0-33.0); MEAN CORPUSCULAR HGB CONC 31.5 g/dl (32.0-37.0); MEAN CORPUSCULAR VOLUME 93.6 fl (82.0-101.0); MEAN PLATELET VOLUME 9.6 fl (7.4-10.4); MONOCYTE # 0.4 10^3/ul (0.3-0.9); MONOCYTES % 8.1 % (0.0-11.0); NEUTROPHILS % 74.4 % (39.0-77.0); PLATELET COUNT 314 10^3/UL (140-415); RED BLOOD COUNT 2.51 10^6/ul (4.20-5.40); WHITE BLOOD COUNT 4.3 10^3/ul (4.8-10.8)
[2017-03-16 08:33] LABS: POSITIVE DIFF @See below
[2017-03-16 08:36] LABS: CALCIUM 6.8 mg/dl (8.4-10.2); CREATININE 0.67 mg/dl (0.44-1.00); POTASSIUM 3.3 mmol/L (3.5-5.1)
[2017-03-16] MEDS: MUPIROCIN 2% 15 GM CR TOP SCH ×2 (09:00→22:13)
[2017-03-16] MEDS: NA BICARBONATE 650 MG TAB PO SCH ×3 (09:55→22:10)
[2017-03-16] MEDS: FOLIC ACID 1 MG TAB PO SCH (09:55)
[2017-03-16] MEDS: FAMOTIDINE 20 MG TAB PO SCH (09:55)
[2017-03-16] MEDS: POTASSIUM CHLORIDE (SR) 20 MEQ TAB PO SCH ×3 (09:55→22:10)
[2017-03-16] MEDS: MAGNESIUM CHLORIDE (SR) 64 MG TAB PO SCH ×3 (09:55→22:10)
[2017-03-16] MEDS: ENOXAPARIN 30 MG/0.3 ML SYG SC SCH (10:37)
[2017-03-16] MEDS: CEFTRIAXONE 2 GM/50 ML (PMX) 50 ML IVPB SCH (10:37)
--- NOTE | 2017-03-16 11:53 | PN ---
Date/Time of Note Date/Time of Note DATE: 03/16/17 TIME: 11:52 Assessment/Plan VTE Prophylaxis VTE Prophylaxis Intervention: other Lines/Catheters IV Catheter Type (from [facility]): zoran cath Urinary Cath still in place: No Assessment/Plan Chief Complaint/Hosp Course -Sepsis was positive blood cultures. Dr. Mcelroy is following an infection disease consultation. Continue broad-spectrum antibiotics. -Coli UTI. --Electrolyte imbalances - Severe hypokalemia, resolved - hypomagnesium- 1.6 today -Nausea and vomiting on admission, resolved -Acute kidney injury secondary to dehydration, Dr. Spain is following in nephrology consultation. Continue IV fluids -History of Hirschsprung disease -Ileostomy -Right chest Port-A-Cath Problems: Subjective 24 Hr Interval Summary Free Text/Dictation Patient has no complaints but patient is anemia based on CBC Exam/Review of Systems Vital Signs Vitals Vital Signs Date Time Temp Pulse Resp B/P Pulse Ox O2 Delivery O2 Flow Rate FiO2 03/16/17 11:24 98.0 101 18 88/53 97 03/14/17 23:20 Nasal Cannula 2.0 Intake and Output 03/15/17 03/15/17 03/16/17 15:00 23:00 07:00 Intake Total 1875 ml 1350 ml Output Total 600 ml Balance 1875 ml 750 ml Exam Constitutional: well developed Head: atraumatic, normocephalic Neck: supple Respiratory: diminished breath sounds Cardiovascular: regular rate and rhythm Gastrointestinal: non-tender, soft Extremities: normal pulses Results Result Diagram: 03/16/17 0740 03/16/17 0740 Results 24 hrs Laboratory Tests Test 03/16/17 07:40 03/16/17 07:41 White Blood Count 4.3 L Red Blood Count 2.51 L Hemoglobin 7.4 L Hematocrit 23.5 L Mean Corpuscular Volume 93.6 Mean Corpuscular Hemoglobin 29.5 Mean Corpuscular Hemoglobin Concent 31.5 L Red Cell Distribution Width 14.0 Platelet Count 314 Mean Platelet Volume 9.6 Neutrophils % 74.4 Lymphocytes % 12.0 L Monocytes % 8.1 Eosinophils % 3.9 Basophils % 0.2 Nucleated Red Blood Cells % 0.0 Neutrophils # (Manual) 3.2 Lymphocytes # 0.5 L Monocytes # 0.4 Eosinophils # 0.2 Basophils # 0.0 Nucleated Red Blood Cells # 0.0 Sodium Level 143 Potassium Level 3.3 L Chloride Level 115 H Carbon Dioxide Level 20 L Anion Gap 11 Blood Urea Nitrogen 15 Creatinine 0.67 Glucose Level 80 Calcium Level 6.8 L Magnesium Level 1.1 L Medications Medications Current Medications Sodium Chloride (NS) 1,000 ml @ 75 mls/hr [id number] IV Last administered on 00:20; Admin Dose 75 MLS/HR; Start 03/02/17 at 12:03 Ondansetron HCl (Zofran Inj) 4 mg Q6H PRN IV NAUSEA AND/OR VOMITING Last administered on 03/14/17 14:27; Admin Dose 4 MG; Start 03/02/17 at 12:30 Acetaminophen (Tylenol Tab) 650 mg Q6H PRN PO PAIN LEVEL 1-3 OR FEVER Last administered on 03/09/17 22:29; Admin Dose 650 MG; Start 03/02/17 at 12:30 Morphine Sulfate (morphine) 2 mg Q4H PRN IV PAIN LEVEL 7-10; Start 03/02/17 at 12:30 Enoxaparin Sodium (Lovenox) 30 mg DAILY SC Last administered on 03/16/17 10:37 ; Admin Dose 30 MG; Start 03/03/17 at 09:00 Cyanocobalamin (Vitamin B12 Inj) 1,000 mcg Q28D IM Last administered on 16:13; Admin Dose 1,000 MCG; Start 03/02/17 at 12:30 Folic Acid (Folic Acid) 1 mg DAILY PO Last administered on 03/16/17 09:55; Admin Dose 1 MG; Start 03/03/17 at 09:00 Acetaminophen/ Hydrocodone Bitart ([place] (10/325)) 1 tab Q6H PRN PO PAIN; Start 03/02/17 at 12:30 Hydroxyzine Pamoate (Vistaril) 25 mg QHS PRN PO ITCHING Last administered on 00:24; Admin Dose 25 MG; Start 03/02/17 at 12:30 Midodrine (Proamatine) 2.5 mg BID@,17 PRN PO SBP <90 Last administered on 18:33; Admin Dose 2.5 MG; Start 03/02/17 at 12:30 Pantoprazole (Protonix Tab) 40 mg DAILY@06 PO Last administered on 03/16/17 06: 05; Admin Dose 40 MG; Start 03/03/17 at 06:00 Potassium Chloride (Klor-Con 20) 20 meq TID PO Last administered on 03/16/17 09 :55; Admin Dose 20 MEQ; Start 03/05/17 at 21:00 Sodium Bicarbonate (Sodium Bicarbonate Tab) 650 mg TID PO Last administered on 03/16/17 09:55; Admin Dose 650 MG; Start 03/07/17 at 21:00 Magnesium Chloride (Mag 64) 64 mg TID PO Last administered on 03/16/17 09:55; Admin Dose 64 MG; Start 03/09/17 at 13:00 Famotidine 20 mg 20 mg DAILY PO Last administered on 03/16/17 09:55; Admin Dose 20 MG; Start 03/12/17 at 09:00 Ceftriaxone Sodium (Rocephin) 50 ml @ 100 mls/hr Q24H IVPB Last administered on 03/16/17 10:37; Admin Dose 100 MLS/HR; Start 03/13/17 at 10:00 Mupirocin 1 applic 1 applic BID TOP Last administered on 03/16/17 09:00; Admin Dose 1 APPLIC; Start 03/14/17 at 13:00; Stop 03/24/17 at 12:59 Vancomycin HCl/ Sodium Chloride (Vancocin/NS) 100 ml @ 100 mls/hr Q12H IVPB Last administered on 03/16/17 04:41; Admin Dose 100 MLS/HR; Start 03/15/17 at 04: 00 Miscellaneous Information (*Rx Drug Level Order Reminder*) VANCOMYCIN TROUGH 03/17 AT 0300 ONCE ONCE XX ; Start 03/17/17 at 03:00; Stop 03/17/17 at 03:01 GINGER MOSES Mar 16, 2017 11:53
[2017-03-16] MEDS ORDERED: MAGNESIUM SULFATE 2 GM/50 ML 50 ML IVPB ONE (12:30)
--- NOTE | 2017-03-16 12:33 | CONS ---
Date/Time of Note Date/Time of Note DATE: 03/16/17 TIME: 12:30 Assessment/Plan Assessment/Plan Additional Assessment/Plan -Sepsis was positive blood cultures. Dr. Mcelroy is following an infection disease consultation. Continue broad-spectrum antibiotics. -Coli UTI. --Electrolyte imbalances - hypokalemia- kcl40 meq x 1 - hypomagnesium- 1.1 today- Mag sulphate 2 gm iv x 1 -Nausea and vomiting on admission, resolved -Acute kidney injury secondary to dehydration, Dr. Spain is following in nephrology consultation. Continue IV fluids -History of Hirschsprung disease -Ileostomy -Right chest Port-A-Cath Further recommendations based on clinical course. Plan of care discussed with Dr. Paez Consultation Date/Type/Reason Admit Date/Time Mar 02, 2017 at 05:33 Initial Consult Date 03/10/17 Type of Consultation: Infectious Disease Referring Provider: ROMI ESPINO 24 HR Interval Summary Constitutional: requiring IVF, requiring O2 Detailed Summary Respiratory: no complaints Cardiovascular: no complaints Gastrointestinal: no complaints Genitourinary: no complaints Musculoskeletal: no complaints Neurologic: no complaints Exam/Review of Systems Vital Signs Vitals Vital Signs Date Time Temp Pulse Resp B/P Pulse Ox O2 Delivery O2 Flow Rate FiO2 03/16/17 12:10 107 03/16/17 11:24 98.0 18 88/53 97 03/14/17 23:20 Nasal Cannula 2.0 Intake and Output 03/15/17 03/15/17 03/16/17 14:59 22:59 06:59 Intake Total 1875 ml 1350 ml Output Total 600 ml Balance 1875 ml 750 ml Exam Constitutional: alert, oriented Psych: nl mood/affect Respiratory: clear to auscultation, normal air movement Cardiovascular: nl pulses, regular rate and rhythm Gastrointestinal: non-tender, other (coclostomy intact), soft Musculoskeletal: nl extremities to inspection Extremities: normal pulses 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: nl mental status, nl speech Results Result Diagram: 03/16/17 0740 03/16/17 0740 Results 24 hrs Laboratory Tests Test 03/16/17 07:40 03/16/17 07:41 White Blood Count 4.3 L Red Blood Count 2.51 L Hemoglobin 7.4 L Hematocrit 23.5 L Mean Corpuscular Volume 93.6 Mean Corpuscular Hemoglobin 29.5 Mean Corpuscular Hemoglobin Concent 31.5 L Red Cell Distribution Width 14.0 Platelet Count 314 Mean Platelet Volume 9.6 Neutrophils % 74.4 Lymphocytes % 12.0 L Monocytes % 8.1 Eosinophils % 3.9 Basophils % 0.2 Nucleated Red Blood Cells % 0.0 Neutrophils # (Manual) 3.2 Lymphocytes # 0.5 L Monocytes # 0.4 Eosinophils # 0.2 Basophils # 0.0 Nucleated Red Blood Cells # 0.0 Sodium Level 143 Potassium Level 3.3 L Chloride Level 115 H Carbon Dioxide Level 20 L Anion Gap 11 Blood Urea Nitrogen 15 Creatinine 0.67 Glucose Level 80 Calcium Level 6.8 L Magnesium Level 1.1 L Medications Medications Current Medications Sodium Chloride (NS) 1,000 ml @ 75 mls/hr [id number] IV Last administered on 00:20; Admin Dose 75 MLS/HR; Start 03/02/17 at 12:03 Ondansetron HCl (Zofran Inj) 4 mg Q6H PRN IV NAUSEA AND/OR VOMITING Last administered on 03/14/17 14:27; Admin Dose 4 MG; Start 03/02/17 at 12:30 Acetaminophen (Tylenol Tab) 650 mg Q6H PRN PO PAIN LEVEL 1-3 OR FEVER Last administered on 03/09/17 22:29; Admin Dose 650 MG; Start 03/02/17 at 12:30 Morphine Sulfate (morphine) 2 mg Q4H PRN IV PAIN LEVEL 7-10; Start 03/02/17 at 12:30 Enoxaparin Sodium (Lovenox) 30 mg DAILY SC Last administered on 03/16/17 10:37 ; Admin Dose 30 MG; Start 03/03/17 at 09:00 Cyanocobalamin (Vitamin B12 Inj) 1,000 mcg Q28D IM Last administered on 16:13; Admin Dose 1,000 MCG; Start 03/02/17 at 12:30 Folic Acid (Folic Acid) 1 mg DAILY PO Last administered on 03/16/17 09:55; Admin Dose 1 MG; Start 03/03/17 at 09:00 Acetaminophen/ Hydrocodone Bitart ([place] (10/325)) 1 tab Q6H PRN PO PAIN; Start 03/02/17 at 12:30 Hydroxyzine Pamoate (Vistaril) 25 mg QHS PRN PO ITCHING Last administered on 00:24; Admin Dose 25 MG; Start 03/02/17 at 12:30 Midodrine (Proamatine) 2.5 mg BID@ PRN PO SBP <90 Last administered on 18:33; Admin Dose 2.5 MG; Start 03/02/17 at 12:30 Pantoprazole (Protonix Tab) 40 mg DAILY@06 PO Last administered on 03/16/17 06: 05; Admin Dose 40 MG; Start 03/03/17 at 06:00 Potassium Chloride (Klor-Con 20) 20 meq TID PO Last administered on 03/16/17 09 :55; Admin Dose 20 MEQ; Start 03/05/17 at 21:00 Sodium Bicarbonate (Sodium Bicarbonate Tab) 650 mg TID PO Last administered on 03/16/17 09:55; Admin Dose 650 MG; Start 03/07/17 at 21:00 Magnesium Chloride (Mag 64) 64 mg TID PO Last administered on 03/16/17 09:55; Admin Dose 64 MG; Start 03/09/17 at 13:00 Famotidine 20 mg 20 mg DAILY PO Last administered on 03/16/17 09:55; Admin Dose 20 MG; Start 03/12/17 at 09:00 Ceftriaxone Sodium (Rocephin) 50 ml @ 100 mls/hr Q24H IVPB Last administered on 03/16/17 10:37; Admin Dose 100 MLS/HR; Start 03/13/17 at 10:00 Mupirocin 1 applic 1 applic BID TOP Last administered on 03/16/17 09:00; Admin Dose 1 APPLIC; Start 03/14/17 at 13:00; Stop 03/24/17 at 12:59 Vancomycin HCl/ Sodium Chloride (Vancocin/NS) 100 ml @ 100 mls/hr Q12H IVPB Last administered on 03/16/17 04:41; Admin Dose 100 MLS/HR; Start 03/15/17 at 04: 00 Miscellaneous Information VANCOMYCIN TROUGH 03/17 AT 0300 ONCE ONCE XX ; Start at 03:00; Stop 03/17/17 at 03:01 Potassium Chloride 250 ml @ 62.5 mls/hr ONCE ONCE IVPB ; Start 03/16/17 at 14: 00; Stop 03/16/17 at 17:59 Magnesium Sulfate (Magnesium Sulfate 2 Gm/50 ml) 50 ml @ 25 mls/hr ONCE ONCE IVPB ; Start 03/16/17 at 12:30; Stop 03/16/17 at 14:29 DEVENDRA GOMES Mar 16, 2017 12:33
[2017-03-16] MEDS ORDERED: POTASSIUM CHLORIDE 250 ML IVPB ONE (14:00)
[2017-03-16] MEDS ORDERED: MAGNESIUM SULFATE 4 GM/100 ML 100 ML IVPB ONE (14:00)
[2017-03-16] MEDS ORDERED: POTASSIUM CHLORIDE 20 MEQ in SOD CHLORIDE 0.9% 100 ML IVPB ONE (14:30)
--- NOTE | 2017-03-16 19:31 | CONS ---
Date/Time of Note Date/Time of Note DATE: 03/16/17 TIME: 19:29 Assessment/Plan Assessment/Plan Chief Complaint/Hosp Course - fever due to bacteremia, improving - bacteremia due to E. coli, kleb pneumo and MRSA - E. coli in urine culture. Pt does not have UTI symptoms. - recurrent lactic acidosis - posterior neck pain for "years." XR showed mild degenerative spondylosis - probable gastroenteritis on admission, improved - s/p sepsis due to bacteremia - h/o bacteremia due to coag negative Staph hemolyticus on 12/26/2016 and Staph epidermidis on 12/27/2016, 12/31/2016 CoNS (not speciated) - h/o urine culture +MRSA, enterococci, lactobacillus on 12/24/2016 - h/o recurrent bacteremia due to MSSA in 10/2015 and 10/2016. Transesophageal echo on 11/12/2016 was negative for valvular vegetation - h/o low-level nonspecific increase in tracer uptake within the mediastinum on WBC tagged scan 12/31/2016 - h/o extensive catheterization - h/o persistent hypotension - h/o infected portacath, s/p removal in 2015-->new port was placed on 11/15/2016 - h/o possible small bowel obstruction, resolved - h/o acute kidney injury, resolved - Hirschsprung's disease, status post colectomy/ileostomy - MRSA colonization - hypomagnesium recommendations: - in process: repeat blood cultures (NTD) on 03/12/2017 - we recommend transthoracic echo to r/o endocarditis - continue ceftriaxone (03/13/2017-), we recommend 2 weeks from the first negative blood culture - continue IV vancomycin (03/09/2017-) , we recommend 2 weeks from the first negative blood culture - continue mupirocin (03/14/2017-) for MRSA decolonization, plan for 10 days - If blood cultures are repeatedly positive, we recommend removal of port. We discussed this during her last admission. management d/w Pt and her mother Problems: Consultation Date/Type/Reason Admit Date/Time Mar 02, 2017 at 05:33 Initial Consult Date 03/10/17 Type of Consultation: Infectious Disease Referring Provider: ROMI ESPINO 24 HR Interval Summary Constitutional: no complaints Detailed Summary Eyes: no complaints ENT: other (chronic posterior hogue pain) Respiratory: no complaints Cardiovascular: no complaints Gastrointestinal: passing stool (ostoomy bag) Genitourinary: no complaints Musculoskeletal: no complaints Skin: no complaints Neurologic: no complaints Exam/Review of Systems Vital Signs Vitals Vital Signs Date Time Temp Pulse Resp B/P Pulse Ox O2 Delivery O2 Flow Rate FiO2 03/16/17 17:03 104 03/16/17 16:13 98.0 18 90/51 100 03/14/17 23:20 Nasal Cannula 2.0 Intake and Output 03/15/17 03/15/17 03/16/17 15:00 23:00 07:00 Intake Total 1875 ml 1350 ml Output Total 600 ml Balance 1875 ml 750 ml Exam Constitutional: alert, oriented Psych: nl mood/affect, no complaints Head: atraumatic, normocephalic Eyes: nl conjunctiva, nl lids ENMT: nl external ears & nose, nl nasal mucosa & septum Neck: non-tender, supple, No masses Respiratory: clear to auscultation, normal air movement Cardiovascular: nl pulses, regular rate and rhythm Gastrointestinal: non-tender, other (ostomy bag), soft Musculoskeletal: nl extremities to inspection Extremities: No edema 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: MAIL EXAMINER II-XII intact, nl speech, No confused Skin: No rash or lesions Results Result Diagram: 03/16/17 0740 03/16/17 0740 Results 24 hrs Laboratory Tests Test 03/16/17 07:40 03/16/17 07:41 White Blood Count 4.3 L Red Blood Count 2.51 L Hemoglobin 7.4 L Hematocrit 23.5 L Mean Corpuscular Volume 93.6 Mean Corpuscular Hemoglobin 29.5 Mean Corpuscular Hemoglobin Concent 31.5 L Red Cell Distribution Width 14.0 Platelet Count 314 Mean Platelet Volume 9.6 Neutrophils % 74.4 Lymphocytes % 12.0 L Monocytes % 8.1 Eosinophils % 3.9 Basophils % 0.2 Nucleated Red Blood Cells % 0.0 Neutrophils # (Manual) 3.2 Lymphocytes # 0.5 L Monocytes # 0.4 Eosinophils # 0.2 Basophils # 0.0 Nucleated Red Blood Cells # 0.0 Sodium Level 143 Potassium Level 3.3 L Chloride Level 115 H Carbon Dioxide Level 20 L Anion Gap 11 Blood Urea Nitrogen 15 Creatinine 0.67 Glucose Level 80 Calcium Level 6.8 L Magnesium Level 1.1 L Medications Medications Current Medications Sodium Chloride (NS) 1,000 ml @ 75 mls/hr [id number] IV Last administered on 00:20; Admin Dose 75 MLS/HR; Start 03/02/17 at 12:03 Ondansetron HCl (Zofran Inj) 4 mg Q6H PRN IV NAUSEA AND/OR VOMITING Last administered on 03/14/17 14:27; Admin Dose 4 MG; Start 03/02/17 at 12:30 Acetaminophen (Tylenol Tab) 650 mg Q6H PRN PO PAIN LEVEL 1-3 OR FEVER Last administered on 03/09/17 22:29; Admin Dose 650 MG; Start 03/02/17 at 12:30 Morphine Sulfate (morphine) 2 mg Q4H PRN IV PAIN LEVEL 7-10; Start 03/02/17 at 12:30 Enoxaparin Sodium (Lovenox) 30 mg DAILY SC Last administered on 03/16/17 10:37 ; Admin Dose 30 MG; Start 03/03/17 at 09:00 Cyanocobalamin (Vitamin B12 Inj) 1,000 mcg Q28D IM Last administered on 16:13; Admin Dose 1,000 MCG; Start 03/02/17 at 12:30 Folic Acid (Folic Acid) 1 mg DAILY PO Last administered on 03/16/17 09:55; Admin Dose 1 MG; Start 03/03/17 at 09:00 Acetaminophen/ Hydrocodone Bitart ([place] (10/325)) 1 tab Q6H PRN PO PAIN; Start 03/02/17 at 12:30 Hydroxyzine Pamoate (Vistaril) 25 mg QHS PRN PO ITCHING Last administered on 00:24; Admin Dose 25 MG; Start 03/02/17 at 12:30 Midodrine (Proamatine) 2.5 mg BID@ PRN PO SBP <90 Last administered on 18:33; Admin Dose 2.5 MG; Start 03/02/17 at 12:30 Pantoprazole (Protonix Tab) 40 mg DAILY@06 PO Last administered on 03/16/17 06: 05; Admin Dose 40 MG; Start 03/03/17 at 06:00 Potassium Chloride (Klor-Con 20) 20 meq TID PO Last administered on 03/16/17 13 :00; Admin Dose 20 MEQ; Start 03/05/17 at 21:00 Sodium Bicarbonate (Sodium Bicarbonate Tab) 650 mg TID PO Last administered on 03/16/17 13:00; Admin Dose 650 MG; Start 03/07/17 at 21:00 Magnesium Chloride (Mag 64) 64 mg TID PO Last administered on 03/16/17 13:00; Admin Dose 64 MG; Start 03/09/17 at 13:00 Famotidine 20 mg 20 mg DAILY PO Last administered on 03/16/17 09:55; Admin Dose 20 MG; Start 03/12/17 at 09:00 Ceftriaxone Sodium (Rocephin) 50 ml @ 100 mls/hr Q24H IVPB Last administered on 03/16/17 10:37; Admin Dose 100 MLS/HR; Start 03/13/17 at 10:00 Mupirocin 1 applic 1 applic BID TOP Last administered on 03/16/17 09:00; Admin Dose 1 APPLIC; Start 03/14/17 at 13:00; Stop 03/24/17 at 12:59 Vancomycin HCl/ Sodium Chloride (Vancocin/NS) 100 ml @ 100 mls/hr Q12H IVPB Last administered on 03/16/17 16:00; Admin Dose 100 MLS/HR; Start 03/15/17 at 04: 00 Miscellaneous Information (*Rx Drug Level Order Reminder*) VANCOMYCIN TROUGH 03/17 AT 0300 ONCE ONCE XX ; Start 03/17/17 at 03:00; Stop 03/17/17 at 03:01 TAWANDA FINK M.D. Mar 16, 2017 19:31
[2017-03-16] MEDS: hydrOXYzine PAMOATE 25 MG CAP PO PRN (22:17)
[2017-03-17] VITALS (13 sets, daily range): BP systolic 56–107; BP diastolic 49–60; PULSE 88–117; RESP 19–20
[2017-03-17] MEDS: VANCOMYCIN 450 MG in SOD CHLORIDE 0.9% 100 ML IVPB SCH (04:24)
[2017-03-17] MEDS: PANTOPRAZOLE (EC) 40 MG TAB PO SCH (05:17)
[2017-03-17] MEDS: SOD CHLORIDE 0.9% 1,000 ML IV SCH ×2 (07:57→21:17)
[2017-03-17 08:29] LABS: ABNORMAL IP MESSAGE 1; BASOPHILS % 0.2 % (0.0-2.0); EOSINOPHILS # 0.2 10^3/ul (0.0-0.5); EOSINOPHILS % 4.9 % (0.0-7.0); HEMATOCRIT 27.4 % (37.0-47.0); HEMOGLOBIN 8.9 g/dl (12.0-16.0); LYMPHOCYTES # 0.5 10^3/ul (0.8-2.9); LYMPHOCYTES % 11.1 % (15.0-51.0); MEAN CORPUSCULAR HEMOGLOBIN 29.2 pg (29.0-33.0); MEAN CORPUSCULAR HGB CONC 32.5 g/dl (32.0-37.0); MEAN CORPUSCULAR VOLUME 89.8 fl (82.0-101.0); MEAN PLATELET VOLUME 9.4 fl (7.4-10.4); MONOCYTE # 0.4 10^3/ul (0.3-0.9); MONOCYTES % 7.2 % (0.0-11.0); NEUTROPHILS % 74.7 % (39.0-77.0); PLATELET COUNT 358 10^3/UL (140-415); RED BLOOD COUNT 3.05 10^6/ul (4.20-5.40); RED CELL DISTRIBUTION WIDTH 15.2 % (11.5-14.5); WHITE BLOOD COUNT 4.9 10^3/ul (4.8-10.8)
[2017-03-17 08:38] LABS: POSITIVE DIFF @See below
[2017-03-17 08:48] LABS: CALCIUM 6.5 mg/dl (8.4-10.2); CREATININE 0.62 mg/dl (0.44-1.00); POTASSIUM 3.3 mmol/L (3.5-5.1)
[2017-03-17] MEDS: MUPIROCIN 2% 15 GM CR TOP SCH ×2 (09:00→21:38)
[2017-03-17] MEDS: FOLIC ACID 1 MG TAB PO SCH (09:58)
[2017-03-17] MEDS: MAGNESIUM CHLORIDE (SR) 64 MG TAB PO SCH ×3 (09:58→20:33)
[2017-03-17] MEDS: POTASSIUM CHLORIDE (SR) 20 MEQ TAB PO SCH ×3 (09:58→20:33)
[2017-03-17] MEDS: NA BICARBONATE 650 MG TAB PO SCH ×3 (09:58→20:33)
[2017-03-17] MEDS: FAMOTIDINE 20 MG TAB PO SCH (09:58)
[2017-03-17] MEDS: ENOXAPARIN 30 MG/0.3 ML SYG SC SCH (10:05)
[2017-03-17] MEDS: CEFTRIAXONE 2 GM/50 ML (PMX) 50 ML IVPB SCH (10:06)
--- NOTE | 2017-03-17 11:34 | PN ---
Date/Time of Note Date/Time of Note DATE: 03/17/17 TIME: 11:33 Assessment/Plan VTE Prophylaxis VTE Prophylaxis Intervention: other Lines/Catheters IV [facility]from [facility] zoran cath Urinary Cath still in place: No Assessment/Plan Chief Complaint/Hosp Course -Sepsis was positive blood cultures. Dr. Mcelroy is following an infection disease consultation. Continue broad-spectrum antibiotics. -Coli UTI. --Electrolyte imbalances - Severe hypokalemia, resolved - hypomagnesium- 1.6 today -Nausea and vomiting on admission, resolved -Acute kidney injury secondary to dehydration, Dr. Spain is following in nephrology consultation. Continue IV fluids -History of Hirschsprung disease -Ileostomy -Right chest Port-A-Cath Problems: Subjective 24 Hr Interval Summary Free Text/Dictation Patient has no complaints Exam/Review of Systems Vital Signs Vitals Vital Signs Date Time Temp Pulse Resp B/P Pulse Ox O2 Delivery O2 Flow Rate FiO2 03/17/17 08:09 90 03/17/17 07:59 98.1 19 105/60 97 03/14/17 23:20 Nasal Cannula 2.0 Intake and Output 03/16/17 03/16/17 03/17/17 15:00 23:00 07:00 Intake Total 950 ml 1300 ml Output Total 600 ml Balance 950 ml 700 ml Exam Constitutional: well developed Head: atraumatic, normocephalic Neck: supple Respiratory: clear to auscultation Cardiovascular: regular rate and rhythm Gastrointestinal: non-tender, soft Extremities: normal pulses Results Result Diagram: 03/17/17 0812 03/17/17 0756 Results 24 hrs Laboratory Tests Test 03/17/17 03:10 03/17/17 05:26 03/17/17 07:56 03/17/17 08:12 Vancomycin Level Trough 7.5 L Lab Scanned Report BLOOD TRANSFUSION Sodium Level 143 Potassium Level 3.3 L Chloride Level 116 H Carbon Dioxide Level 21 Anion Gap 9 Blood Urea Nitrogen 10 Creatinine 0.62 Glucose Level 64 #L Calcium Level 6.5 L Magnesium Level 1.8 White Blood Count 4.9 Red Blood Count 3.05 #L Hemoglobin 8.9 #L Hematocrit 27.4 L Mean Corpuscular Volume 89.8 Mean Corpuscular Hemoglobin 29.2 Mean Corpuscular Hemoglobin Concent 32.5 Red Cell Distribution Width 15.2 H Platelet Count 358 Mean Platelet Volume 9.4 Neutrophils % 74.7 Lymphocytes % 11.1 L Monocytes % 7.2 Eosinophils % 4.9 Basophils % 0.2 Nucleated Red Blood Cells % 0.0 Neutrophils # (Manual) 3.6 Lymphocytes # 0.5 L Monocytes # 0.4 Eosinophils # 0.2 Basophils # 0.0 Nucleated Red Blood Cells # 0.0 Medications Medications Current Medications Sodium Chloride (NS) 1,000 ml @ 75 mls/hr [id number] IV Last administered on 00:20; Admin Dose 75 MLS/HR; Start 03/02/17 at 12:03 Ondansetron HCl (Zofran Inj) 4 mg Q6H PRN IV NAUSEA AND/OR VOMITING Last administered on 03/14/17 14:27; Admin Dose 4 MG; Start 03/02/17 at 12:30 Acetaminophen (Tylenol Tab) 650 mg Q6H PRN PO PAIN LEVEL 1-3 OR FEVER Last administered on 03/09/17 22:29; Admin Dose 650 MG; Start 03/02/17 at 12:30 Morphine Sulfate (morphine) 2 mg Q4H PRN IV PAIN LEVEL 7-10; Start 03/02/17 at 12:30 Enoxaparin Sodium (Lovenox) 30 mg DAILY SC Last administered on 03/17/17 10:05 ; Admin Dose 30 MG; Start 03/03/17 at 09:00 Cyanocobalamin (Vitamin B12 Inj) 1,000 mcg Q28D IM Last administered on 16:13; Admin Dose 1,000 MCG; Start 03/02/17 at 12:30 Folic Acid (Folic Acid) 1 mg DAILY PO Last administered on 03/17/17 09:58; Admin Dose 1 MG; Start 03/03/17 at 09:00 Acetaminophen/ Hydrocodone Bitart ([place] (10/325)) 1 tab Q6H PRN PO PAIN; Start 03/02/17 at 12:30 Hydroxyzine Pamoate (Vistaril) 25 mg QHS PRN PO ITCHING Last administered on 22:17; Admin Dose 25 MG; Start 03/02/17 at 12:30 Midodrine (Proamatine) 2.5 mg BID@ PRN PO SBP <90 Last administered on 18:33; Admin Dose 2.5 MG; Start 03/02/17 at 12:30 Pantoprazole (Protonix Tab) 40 mg DAILY@06 PO Last administered on 03/17/17 05: 17; Admin Dose 40 MG; Start 03/03/17 at 06:00 Potassium Chloride (Klor-Con 20) 20 meq TID PO Last administered on 03/17/17 09 :58; Admin Dose 20 MEQ; Start 03/05/17 at 21:00 Sodium Bicarbonate (Sodium Bicarbonate Tab) 650 mg TID PO Last administered on 03/17/17 09:58; Admin Dose 650 MG; Start 03/07/17 at 21:00 Magnesium Chloride (Mag 64) 64 mg TID PO Last administered on 03/17/17 09:58; Admin Dose 64 MG; Start 03/09/17 at 13:00 Famotidine 20 mg 20 mg DAILY PO Last administered on 03/17/17 09:58; Admin Dose 20 MG; Start 03/12/17 at 09:00 Ceftriaxone Sodium (Rocephin) 50 ml @ 100 mls/hr Q24H IVPB Last administered on 03/17/17 10:06; Admin Dose 100 MLS/HR; Start 03/13/17 at 10:00 Mupirocin 1 applic 1 applic BID TOP Last administered on 03/17/17 09:00; Admin Dose 1 APPLIC; Start 03/14/17 at 13:00; Stop 03/24/17 at 12:59 Vancomycin HCl (Vancocin) 100 ml @ 100 mls/hr Q12H IVPB ; Start 03/17/17 at 16: 00 GINGER MOSES Mar 17, 2017 11:33
--- NOTE | 2017-03-17 15:44 | CONS ---
Date/Time of Note Date/Time of Note DATE: 03/17/17 TIME: 15:43 Assessment/Plan Assessment/Plan Additional Assessment/Plan 1. acute Kidney injury due to severe prerenal azotemia 2. Acute Hyperkalemia with K 6.0 to now Hypokalemic 3. Nausea,vomiting 4. Hypomagnesemia 5. Metabolic acidosis 6. H/o Hirschsprung disease s/p colostomy 7. Hypomagnesemia severe plan: KCl 20meQ IV x 1 extra dose in addion to PO KCl replacement, Mag normal today after replacement yesterday continue KCl 20mEQ TID , conitnue Magnesium chloride 64-increased to TID [place] 2.5mg BID Prn hypotension will follow up Consultation Date/Type/Reason Admit Date/Time Mar 02, 2017 at 05:33 Initial Consult Date 03/02/17 Type of Consultation: NEPHROLOGY Referring Provider: ROMI ESPINO Exam/Review of Systems Vital Signs Vitals Vital Signs Date Time Temp Pulse Resp B/P Pulse Ox O2 Delivery O2 Flow Rate FiO2 03/17/17 12:05 98.0 101 19 91/59 97 03/14/17 23:20 Nasal Cannula 2.0 Intake and Output 03/16/17 03/16/17 03/17/17 15:00 23:00 07:00 Intake Total 950 ml 1300 ml Output Total 600 ml Balance 950 ml 700 ml Exam Constitutional: alert, oriented Respiratory: clear to auscultation, intercostal retraction, normal air movement Cardiovascular: nl pulses, regular rate and rhythm Gastrointestinal: non-tender, soft, + colostomy Musculoskeletal: nl extremities to inspection Extremities: normal pulses 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: FREEZING ROOM WORKER II-XII intact, nl mental status, nl speech, nl strength Results Result Diagram: 03/17/17 0812 03/17/17 0756 Results 24 hrs Laboratory Tests Test 03/17/17 03:10 03/17/17 05:26 03/17/17 07:56 03/17/17 08:12 Vancomycin Level Trough 7.5 L Lab Scanned Report BLOOD TRANSFUSION Sodium Level 143 Potassium Level 3.3 L Chloride Level 116 H Carbon Dioxide Level 21 Anion Gap 9 Blood Urea Nitrogen 10 Creatinine 0.62 Glucose Level 64 #L Calcium Level 6.5 L Magnesium Level 1.8 White Blood Count 4.9 Red Blood Count 3.05 #L Hemoglobin 8.9 #L Hematocrit 27.4 L Mean Corpuscular Volume 89.8 Mean Corpuscular Hemoglobin 29.2 Mean Corpuscular Hemoglobin Concent 32.5 Red Cell Distribution Width 15.2 H Platelet Count 358 Mean Platelet Volume 9.4 Neutrophils % 74.7 Lymphocytes % 11.1 L Monocytes % 7.2 Eosinophils % 4.9 Basophils % 0.2 Nucleated Red Blood Cells % 0.0 Neutrophils # (Manual) 3.6 Lymphocytes # 0.5 L Monocytes # 0.4 Eosinophils # 0.2 Basophils # 0.0 Nucleated Red Blood Cells # 0.0 Medications Medications Current Medications Sodium Chloride (NS) 1,000 ml @ 75 mls/hr [id number] IV Last administered on 00:20; Admin Dose 75 MLS/HR; Start 03/02/17 at 12:03 Ondansetron HCl (Zofran Inj) 4 mg Q6H PRN IV NAUSEA AND/OR VOMITING Last administered on 03/14/17 14:27; Admin Dose 4 MG; Start 03/02/17 at 12:30 Acetaminophen (Tylenol Tab) 650 mg Q6H PRN PO PAIN LEVEL 1-3 OR FEVER Last administered on 03/09/17 22:29; Admin Dose 650 MG; Start 03/02/17 at 12:30 Morphine Sulfate (morphine) 2 mg Q4H PRN IV PAIN LEVEL 7-10; Start 03/02/17 at 12:30 Enoxaparin Sodium (Lovenox) 30 mg DAILY SC Last administered on 03/17/17 10:05 ; Admin Dose 30 MG; Start 03/03/17 at 09:00 Cyanocobalamin (Vitamin B12 Inj) 1,000 mcg Q28D IM Last administered on 16:13; Admin Dose 1,000 MCG; Start 03/02/17 at 12:30 Folic Acid (Folic Acid) 1 mg DAILY PO Last administered on 03/17/17 09:58; Admin Dose 1 MG; Start 03/03/17 at 09:00 Acetaminophen/ Hydrocodone Bitart ([place] (10/325)) 1 tab Q6H PRN PO PAIN; Start 03/02/17 at 12:30 Hydroxyzine Pamoate (Vistaril) 25 mg QHS PRN PO ITCHING Last administered on 22:17; Admin Dose 25 MG; Start 03/02/17 at 12:30 Midodrine (Proamatine) 2.5 mg BID@17 PRN PO SBP <90 Last administered on 18:33; Admin Dose 2.5 MG; Start 03/02/17 at 12:30 Pantoprazole (Protonix Tab) 40 mg DAILY@06 PO Last administered on 03/17/17 05: 17; Admin Dose 40 MG; Start 03/03/17 at 06:00 Potassium Chloride (Klor-Con 20) 20 meq TID PO Last administered on 03/17/17 13 :11; Admin Dose 20 MEQ; Start 03/05/17 at 21:00 Sodium Bicarbonate (Sodium Bicarbonate Tab) 650 mg TID PO Last administered on 03/17/17 13:07; Admin Dose 650 MG; Start 03/07/17 at 21:00 Magnesium Chloride (Mag 64) 64 mg TID PO Last administered on 03/17/17 13:07; Admin Dose 64 MG; Start 03/09/17 at 13:00 Famotidine 20 mg 20 mg DAILY PO Last administered on 03/17/17 09:58; Admin Dose 20 MG; Start 03/12/17 at 09:00 Ceftriaxone Sodium (Rocephin) 50 ml @ 100 mls/hr Q24H IVPB Last administered on 03/17/17 10:06; Admin Dose 100 MLS/HR; Start 03/13/17 at 10:00 Mupirocin 1 applic 1 applic BID TOP Last administered on 03/17/17 09:00; Admin Dose 1 APPLIC; Start 03/14/17 at 13:00; Stop 03/24/17 at 12:59 Vancomycin HCl (Vancocin) 100 ml @ 100 mls/hr Q12H IVPB ; Start 03/17/17 at 16: 00 ROHAN VELÁZQUEZ MD Mar 17, 2017 15:44
[2017-03-17] MEDS: VANCOMYCIN 500MG/NS (PMX) 100 ML IVPB SCH (16:57)
[2017-03-17] MEDS ORDERED: POTASSIUM CHLORIDE 20 MEQ in SOD CHLORIDE 0.9% 100 ML IVPB ONE (17:00)
--- NOTE | 2017-03-17 17:02 | CONS ---
RINKU BAILON IDENTIFIER HORSE 03/17/17 1702: Date/Time of Note Date/Time of Note DATE: 03/17/17 TIME: 16:56 Assessment/Plan Assessment/Plan Chief Complaint/Hosp Course - fever due to bacteremia, improving - bacteremia due to E. coli, kleb pneumo and MRSA - E. coli in urine culture. Pt does not have UTI symptoms. - recurrent lactic acidosis -resolved - posterior neck pain for "years." XR showed mild degenerative spondylosis - probable gastroenteritis on admission, improved - s/p sepsis due to bacteremia - h/o bacteremia due to coag negative Staph hemolyticus on 12/26/2016 and Staph epidermidis on 12/27/2016, 12/31/2016 CoNS (not speciated) - h/o urine culture +MRSA, enterococci, lactobacillus on 12/24/2016 - h/o recurrent bacteremia due to MSSA in 10/2015 and 10/2016. Transesophageal echo on 11/12/2016 was negative for valvular vegetation - h/o low-level nonspecific increase in tracer uptake within the mediastinum on WBC tagged scan 12/31/2016 - h/o extensive catheterization - h/o persistent hypotension - h/o infected portacath, s/p removal in 2015-->new port was placed on 11/15/2016 - h/o possible small bowel obstruction, resolved - h/o acute kidney injury, resolved - Hirschsprung's disease, status post colectomy/ileostomy - MRSA colonization - hypomagnesium - repleted recommendations: - we recommend transthoracic echo to r/o endocarditis - continue ceftriaxone (03/13/2017-), we recommend 2 weeks from the first negative blood culture, i.e. 03/12/2017-03/25/2017; pt is s/p cefepime - continue IV vancomycin (03/09/2017-) , we recommend 2 weeks from the first negative blood culture, i.e. 03/12/2017-03/25/2017 - continue mupirocin (03/14/2017-) for MRSA decolonization, plan for 10 days - If blood cultures are repeatedly positive, we recommend removal of port. We discussed this during her last admission. - continue contact isolation for MRSA Management d/w patient and Dr. Mcelroy Problems: Consultation Date/Type/Reason Admit Date/Time Mar 02, 2017 at 05:33 Initial Consult Date 03/10/17 Type of Consultation: Infectious Disease Referring Provider: ROMI ESPINO 24 HR Interval Summary Free Text/Dictation No acute issues. Denies pain, SOB, n/v, dysuria. Exam/Review of Systems Vital Signs Vitals Vital Signs Date Time Temp Pulse Resp B/P Pulse Ox O2 Delivery O2 Flow Rate FiO2 03/17/17 16:16 94 03/17/17 12:05 98.0 19 91/59 97 03/14/17 23:20 Nasal Cannula 2.0 Intake and Output 03/16/17 03/16/17 03/17/17 15:00 23:00 07:00 Intake Total 950 ml 1300 ml Output Total 600 ml Balance 950 ml 700 ml Exam Constitutional: alert, oriented, other (smiling at times) Head: atraumatic, normocephalic Eyes: nl conjunctiva, nl lids ENMT: nl external ears & nose, nl nasal mucosa & septum Neck: supple Respiratory: diminished breath sounds Cardiovascular: nl pulses, regular rate and rhythm Gastrointestinal: non-tender, other (+colostomy bag), soft Musculoskeletal: nl extremities to inspection Extremities: Normal pulses, No edema 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: RUG RECEIVING CLERK II-XII intact, nl mental status Skin: nl turgor, other (R chest wall port intact with no e/o infection) Results Result Diagram: 03/17/17 0812 03/17/17 0756 Results 24 hrs Laboratory Tests Test 03/17/17 03:10 03/17/17 05:26 03/17/17 07:56 03/17/17 08:12 Vancomycin Level Trough 7.5 L Lab Scanned Report BLOOD TRANSFUSION Sodium Level 143 Potassium Level 3.3 L Chloride Level 116 H Carbon Dioxide Level 21 Anion Gap 9 Blood Urea Nitrogen 10 Creatinine 0.62 Glucose Level 64 #L Calcium Level 6.5 L Magnesium Level 1.8 White Blood Count 4.9 Red Blood Count 3.05 #L Hemoglobin 8.9 #L Hematocrit 27.4 L Mean Corpuscular Volume 89.8 Mean Corpuscular Hemoglobin 29.2 Mean Corpuscular Hemoglobin Concent 32.5 Red Cell Distribution Width 15.2 H Platelet Count 358 Mean Platelet Volume 9.4 Neutrophils % 74.7 Lymphocytes % 11.1 L Monocytes % 7.2 Eosinophils % 4.9 Basophils % 0.2 Nucleated Red Blood Cells % 0.0 Neutrophils # (Manual) 3.6 Lymphocytes # 0.5 L Monocytes # 0.4 Eosinophils # 0.2 Basophils # 0.0 Nucleated Red Blood Cells # 0.0 Medications Medications Current Medications Sodium Chloride (NS) 1,000 ml @ 75 mls/hr [id number] IV Last administered on 00:20; Admin Dose 75 MLS/HR; Start 03/02/17 at 12:03 Ondansetron HCl (Zofran Inj) 4 mg Q6H PRN IV NAUSEA AND/OR VOMITING Last administered on 03/14/17 14:27; Admin Dose 4 MG; Start 03/02/17 at 12:30 Acetaminophen (Tylenol Tab) 650 mg Q6H PRN PO PAIN LEVEL 1-3 OR FEVER Last administered on 03/09/17 22:29; Admin Dose 650 MG; Start 03/02/17 at 12:30 Morphine Sulfate (morphine) 2 mg Q4H PRN IV PAIN LEVEL 7-10; Start 03/02/17 at 12:30 Enoxaparin Sodium (Lovenox) 30 mg DAILY SC Last administered on 03/17/17 10:05 ; Admin Dose 30 MG; Start 03/03/17 at 09:00 Cyanocobalamin (Vitamin B12 Inj) 1,000 mcg Q28D IM Last administered on 16:13; Admin Dose 1,000 MCG; Start 03/02/17 at 12:30 Folic Acid (Folic Acid) 1 mg DAILY PO Last administered on 03/17/17 09:58; Admin Dose 1 MG; Start 03/03/17 at 09:00 Acetaminophen/ Hydrocodone Bitart ([place] (10/325)) 1 tab Q6H PRN PO PAIN; Start 03/02/17 at 12:30 Hydroxyzine Pamoate (Vistaril) 25 mg QHS PRN PO ITCHING Last administered on 22:17; Admin Dose 25 MG; Start 03/02/17 at 12:30 Midodrine (Proamatine) 2.5 mg BID@,17 PRN PO SBP <90 Last administered on 18:33; Admin Dose 2.5 MG; Start 03/02/17 at 12:30 Pantoprazole (Protonix Tab) 40 mg DAILY@06 PO Last administered on 03/17/17 05: 17; Admin Dose 40 MG; Start 03/03/17 at 06:00 Potassium Chloride (Klor-Con 20) 20 meq TID PO Last administered on 03/17/17 13 :11; Admin Dose 20 MEQ; Start 03/05/17 at 21:00 Sodium Bicarbonate (Sodium Bicarbonate Tab) 650 mg TID PO Last administered on 03/17/17 13:07; Admin Dose 650 MG; Start 03/07/17 at 21:00 Magnesium Chloride (Mag 64) 64 mg TID PO Last administered on 03/17/17 13:07; Admin Dose 64 MG; Start 03/09/17 at 13:00 Famotidine 20 mg 20 mg DAILY PO Last administered on 03/17/17 09:58; Admin Dose 20 MG; Start 03/12/17 at 09:00 Ceftriaxone Sodium (Rocephin) 50 ml @ 100 mls/hr Q24H IVPB Last administered on 03/17/17 10:06; Admin Dose 100 MLS/HR; Start 03/13/17 at 10:00 Mupirocin 1 applic 1 applic BID TOP Last administered on 03/17/17 09:00; Admin Dose 1 APPLIC; Start 03/14/17 at 13:00; Stop 03/24/17 at 12:59 Vancomycin HCl 100 ml @ 100 mls/hr Q12H IVPB ; Start 03/17/17 at 16:00 Potassium Chloride/Sodium Chloride (KCl/NS) 110 ml @ 55 mls/hr ONCE ONCE IVPB ; Start 03/17/17 at 17:00; Stop 03/17/17 at 18:59 TAWANDA MCELROY M.D. 03/18/17 1837: Assessment/Plan Assessment/Plan Additional Assessment/Plan Navi attestation: I discussed the management with SARAH Bailon and agree with above Exam/Review of Systems Results Result Diagram: 03/17/17 0812 03/17/17 0756 RINKU BAILON NP Mar 17, 2017 17:02 TAWANDA MCELROY M.D. Mar 18, 2017 18:37
[2017-03-18] VITALS (12 sets, daily range): BP systolic 81–101; BP diastolic 50–57; PULSE 69–103; RESP 16–20
[2017-03-18] MEDS: VANCOMYCIN 500MG/NS (PMX) 100 ML IVPB SCH ×2 (05:00→16:35)
[2017-03-18] MEDS: PANTOPRAZOLE (EC) 40 MG TAB PO SCH (05:01)
[2017-03-18] MEDS: ENOXAPARIN 30 MG/0.3 ML SYG SC SCH (08:40)
[2017-03-18] MEDS: FOLIC ACID 1 MG TAB PO SCH (08:40)
[2017-03-18] MEDS: POTASSIUM CHLORIDE (SR) 20 MEQ TAB PO SCH ×3 (08:41→21:18)
[2017-03-18] MEDS: MAGNESIUM CHLORIDE (SR) 64 MG TAB PO SCH ×3 (08:41→21:17)
[2017-03-18] MEDS: NA BICARBONATE 650 MG TAB PO SCH ×3 (08:41→21:17)
[2017-03-18] MEDS: FAMOTIDINE 20 MG TAB PO SCH (08:41)
[2017-03-18] MEDS: MUPIROCIN 2% 15 GM CR TOP SCH ×2 (08:43→21:19)
[2017-03-18] MEDS: SOD CHLORIDE 0.9% 1,000 ML IV SCH (10:16)
[2017-03-18] MEDS: CEFTRIAXONE 2 GM/50 ML (PMX) 50 ML IVPB SCH (10:17)
[2017-03-18 10:22] LABS: BASOPHILS % 0.7 % (0.0-2.0); EOSINOPHILS # 0.4 10^3/ul (0.0-0.5); EOSINOPHILS % 6.2 % (0.0-7.0); HEMATOCRIT 36.2 % (37.0-47.0); HEMOGLOBIN 11.6 g/dl (12.0-16.0); LYMPHOCYTES # 0.8 10^3/ul (0.8-2.9); LYMPHOCYTES % 12.8 % (15.0-51.0); MEAN CORPUSCULAR HEMOGLOBIN 29.3 pg (29.0-33.0); MEAN CORPUSCULAR VOLUME 91.4 fl (82.0-101.0); MEAN PLATELET VOLUME 9.7 fl (7.4-10.4); MONOCYTE # 0.6 10^3/ul (0.3-0.9); MONOCYTES % 9.6 % (0.0-11.0); NEUTROPHILS % 66.7 % (39.0-77.0); PLATELET COUNT 539 10^3/UL (140-415); RED BLOOD COUNT 3.96 10^6/ul (4.20-5.40); RED CELL DISTRIBUTION WIDTH 15.1 % (11.5-14.5)
--- NOTE | 2017-03-18 10:29 | PN ---
Date/Time of Note Date/Time of Note DATE: 03/18/17 TIME: 10:25 Assessment/Plan VTE Prophylaxis VTE Prophylaxis Intervention: other Lines/Catheters IV [facility] port a cath Urinary Cath still in place: No Assessment/Plan Assessment/Plan -Sepsis was positive blood cultures. Dr. Mcelroy is following an infection disease consultation. Continue broad-spectrum antibiotics. -Coli UTI. --Electrolyte imbalances - Severe hypokalemia-labs pending - hypomagnesium- 1.6 today- resolved -Nausea and vomiting on admission, resolved -Acute kidney injury secondary to dehydration, Dr. Spain is following in nephrology consultation. Continue IV fluids -History of Hirschsprung disease -Ileostomy -Right chest Port-A-Cath Dw Dr Hwang Subjective 24 Hr Interval Summary Free Text/Dictation labs pending, afebrile, dw staff. Respiratory: no complaints Cardiovascular: no complaints Gastrointestinal: no complaints Genitourinary: no complaints Musculoskeletal: no complaints Neurologic: no complaints Exam/Review of Systems Vital Signs Vitals Vital Signs Date Time Temp Pulse Resp B/P Pulse Ox O2 Delivery O2 Flow Rate FiO2 03/18/17 08:00 97 03/18/17 07:51 98.6 18 90/51 100 03/14/17 23:20 Nasal Cannula 2.0 Intake and Output 03/17/17 03/17/17 03/18/17 15:00 23:00 07:00 Intake Total 800 ml 1050 ml Output Total 500 ml Balance 800 ml 550 ml Exam Constitutional: alert, oriented Respiratory: clear to auscultation Cardiovascular: nl pulses, regular rate and rhythm Gastrointestinal: non-tender, soft Musculoskeletal: nl extremities to inspection Extremities: normal pulses Results Result Diagram: 03/17/17 0812 03/17/17 0756 Results 24 hrs Laboratory Tests Test 03/18/17 09:20 White Blood Count 6.0 # Red Blood Count 3.96 #L Hemoglobin 11.6 #L Hematocrit 36.2 #L Mean Corpuscular Volume 91.4 Mean Corpuscular Hemoglobin 29.3 Mean Corpuscular Hemoglobin Concent 32.0 Red Cell Distribution Width 15.1 H Platelet Count 539 #H Mean Platelet Volume 9.7 Neutrophils % 66.7 Lymphocytes % 12.8 L Monocytes % 9.6 Eosinophils % 6.2 Basophils % 0.7 Nucleated Red Blood Cells % 0.0 Neutrophils # (Manual) 4.0 Lymphocytes # 0.8 Monocytes # 0.6 Eosinophils # 0.4 Basophils # 0.0 Nucleated Red Blood Cells # 0.0 Medications Medications Current Medications Sodium Chloride (NS) 1,000 ml @ 75 mls/hr [id number] IV Last administered on 10:16; Admin Dose 75 MLS/HR; Start 03/02/17 at 12:03 Ondansetron HCl (Zofran Inj) 4 mg Q6H PRN IV NAUSEA AND/OR VOMITING Last administered on 03/14/17 14:27; Admin Dose 4 MG; Start 03/02/17 at 12:30 Acetaminophen (Tylenol Tab) 650 mg Q6H PRN PO PAIN LEVEL 1-3 OR FEVER Last administered on 03/09/17 22:29; Admin Dose 650 MG; Start 03/02/17 at 12:30 Morphine Sulfate (morphine) 2 mg Q4H PRN IV PAIN LEVEL 7-10; Start 03/02/17 at 12:30 Enoxaparin Sodium (Lovenox) 30 mg DAILY SC Last administered on 03/18/17 08:40 ; Admin Dose 30 MG; Start 03/03/17 at 09:00 Cyanocobalamin (Vitamin B12 Inj) 1,000 mcg Q28D IM Last administered on 16:13; Admin Dose 1,000 MCG; Start 03/02/17 at 12:30 Folic Acid (Folic Acid) 1 mg DAILY PO Last administered on 03/18/17 08:40; Admin Dose 1 MG; Start 03/03/17 at 09:00 Acetaminophen/ Hydrocodone Bitart ([place] (10/325)) 1 tab Q6H PRN PO PAIN; Start 03/02/17 at 12:30 Hydroxyzine Pamoate (Vistaril) 25 mg QHS PRN PO ITCHING Last administered on 22:17; Admin Dose 25 MG; Start 03/02/17 at 12:30 Midodrine (Proamatine) 2.5 mg BID@,17 PRN PO SBP <90 Last administered on 18:33; Admin Dose 2.5 MG; Start 03/02/17 at 12:30 Pantoprazole (Protonix Tab) 40 mg DAILY@06 PO Last administered on 03/18/17 05: 01; Admin Dose 40 MG; Start 03/03/17 at 06:00 Potassium Chloride (Klor-Con 20) 20 meq TID PO Last administered on 03/18/17 08 :41; Admin Dose 20 MEQ; Start 03/05/17 at 21:00 Sodium Bicarbonate (Sodium Bicarbonate Tab) 650 mg TID PO Last administered on 03/18/17 08:41; Admin Dose 650 MG; Start 03/07/17 at 21:00 Magnesium Chloride (Mag 64) 64 mg TID PO Last administered on 03/18/17 08:41; Admin Dose 64 MG; Start 03/09/17 at 13:00 Famotidine 20 mg 20 mg DAILY PO Last administered on 03/18/17 08:41; Admin Dose 20 MG; Start 03/12/17 at 09:00 Ceftriaxone Sodium (Rocephin) 50 ml @ 100 mls/hr Q24H IVPB Last administered on 03/18/17 10:17; Admin Dose 100 MLS/HR; Start 03/13/17 at 10:00 Mupirocin 1 applic 1 applic BID TOP Last administered on 03/18/17 08:43; Admin Dose 1 APPLIC; Start 03/14/17 at 13:00; Stop 03/24/17 at 12:59 Vancomycin HCl (Vancocin) 100 ml @ 100 mls/hr Q12H IVPB Last administered on 05:00; Admin Dose 100 MLS/HR; Start 03/17/17 at 16:00 DEVENDRA GOMES Mar 18, 2017 10:29
[2017-03-18 10:37] LABS: CALCIUM 9.6 mg/dl (8.4-10.2); CREATININE 0.77 mg/dl (0.44-1.00); POTASSIUM 4.7 mmol/L (3.5-5.1)
--- NOTE | 2017-03-18 18:07 | CONS ---
Date/Time of Note Date/Time of Note DATE: 03/18/17 TIME: 18:02 Assessment/Plan Assessment/Plan Additional Assessment/Plan 1. acute Kidney injury due to severe prerenal azotemia 2. Acute Hyperkalemia with K 6.0 to now Hypokalemic 3. Nausea,vomiting 4. Hypomagnesemia 5. Metabolic acidosis 6. H/o Hirschsprung disease s/p colostomy 7. Hypomagnesemia severe plan: Electrolytes and Cr stable today continue KCl 20mEQ TID , conitnue Magnesium chloride 64- TID Midorine 2.5mg BID Prn hypotension will follow up Consultation Date/Type/Reason Admit Date/Time Mar 02, 2017 at 05:33 Initial Consult Date 03/02/17 Type of Consultation: NEPHROLOGY Referring Provider: ROMI ESPINO Exam/Review of Systems Vital Signs Vitals Vital Signs Date Time Temp Pulse Resp B/P Pulse Ox O2 Delivery O2 Flow Rate FiO2 03/18/17 16:00 103 03/18/17 15:46 98.0 16 81/51 94 03/14/17 23:20 Nasal Cannula 2.0 Intake and Output 03/17/17 03/17/17 03/18/17 15:00 23:00 07:00 Intake Total 800 ml 1050 ml Output Total 500 ml Balance 800 ml 550 ml Exam Constitutional: alert, oriented Respiratory: clear to auscultation, intercostal retraction, normal air movement Cardiovascular: nl pulses, regular rate and rhythm Gastrointestinal: non-tender, soft, + colostomy Musculoskeletal: nl extremities to inspection Extremities: normal pulses 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: PAINTING MANAGER II-XII intact, nl mental status, nl speech, nl strength Results Result Diagram: 03/18/1720 03/18/17 0920 Results 24 hrs Laboratory Tests Test 03/18/17 09:20 White Blood Count 6.0 # Red Blood Count 3.96 #L Hemoglobin 11.6 #L Hematocrit 36.2 #L Mean Corpuscular Volume 91.4 Mean Corpuscular Hemoglobin 29.3 Mean Corpuscular Hemoglobin Concent 32.0 Red Cell Distribution Width 15.1 H Platelet Count 539 #H Mean Platelet Volume 9.7 Neutrophils % 66.7 Lymphocytes % 12.8 L Monocytes % 9.6 Eosinophils % 6.2 Basophils % 0.7 Nucleated Red Blood Cells % 0.0 Neutrophils # (Manual) 4.0 Lymphocytes # 0.8 Monocytes # 0.6 Eosinophils # 0.4 Basophils # 0.0 Nucleated Red Blood Cells # 0.0 Sodium Level 141 Potassium Level 4.7 Chloride Level 105 # Carbon Dioxide Level 29 Anion Gap 12 Blood Urea Nitrogen 12 Creatinine 0.77 Glucose Level 91 Calcium Level 9.6 Medications Medications Current Medications Sodium Chloride (NS) 1,000 ml @ 75 mls/hr [id number] IV Last administered on 10:16; Admin Dose 75 MLS/HR; Start 03/02/17 at 12:03 Ondansetron HCl (Zofran Inj) 4 mg Q6H PRN IV NAUSEA AND/OR VOMITING Last administered on 03/14/17 14:27; Admin Dose 4 MG; Start 03/02/17 at 12:30 Acetaminophen (Tylenol Tab) 650 mg Q6H PRN PO PAIN LEVEL 1-3 OR FEVER Last administered on 03/09/17 22:29; Admin Dose 650 MG; Start 03/02/17 at 12:30 Morphine Sulfate (morphine) 2 mg Q4H PRN IV PAIN LEVEL 7-10; Start 03/02/17 at 12:30 Enoxaparin Sodium (Lovenox) 30 mg DAILY SC Last administered on 03/18/17 08:40 ; Admin Dose 30 MG; Start 03/03/17 at 09:00 Cyanocobalamin (Vitamin B12 Inj) 1,000 mcg Q28D IM Last administered on 16:13; Admin Dose 1,000 MCG; Start 03/02/17 at 12:30 Folic Acid (Folic Acid) 1 mg DAILY PO Last administered on 03/18/17 08:40; Admin Dose 1 MG; Start 03/03/17 at 09:00 Acetaminophen/ Hydrocodone Bitart ([place] (10/325)) 1 tab Q6H PRN PO PAIN; Start 03/02/17 at 12:30 Hydroxyzine Pamoate (Vistaril) 25 mg QHS PRN PO ITCHING Last administered on 22:17; Admin Dose 25 MG; Start 03/02/17 at 12:30 Midodrine (Proamatine) 2.5 mg BID@ PRN PO SBP <90 Last administered on 18:33; Admin Dose 2.5 MG; Start 03/02/17 at 12:30 Pantoprazole (Protonix Tab) 40 mg DAILY@06 PO Last administered on 03/18/17 05: 01; Admin Dose 40 MG; Start 03/03/17 at 06:00 Potassium Chloride (Klor-Con 20) 20 meq TID PO Last administered on 03/18/17 11 :53; Admin Dose 20 MEQ; Start 03/05/17 at 21:00 Sodium Bicarbonate (Sodium Bicarbonate Tab) 650 mg TID PO Last administered on 03/18/17 11:53; Admin Dose 650 MG; Start 03/07/17 at 21:00 Magnesium Chloride 64 mg 64 mg TID PO Last administered on 03/18/17 11:54; Admin Dose 64 MG; Start 03/09/17 at 13:00 Ceftriaxone Sodium (Rocephin) 50 ml @ 100 mls/hr Q24H IVPB Last administered on 03/18/17 10:17; Admin Dose 100 MLS/HR; Start 03/13/17 at 10:00 Mupirocin 1 applic 1 applic BID TOP Last administered on 03/18/17 08:43; Admin Dose 1 APPLIC; Start 03/14/17 at 13:00; Stop 03/24/17 at 12:59 Vancomycin HCl (Vancocin) 100 ml @ 100 mls/hr Q12H IVPB Last administered on 16:35; Admin Dose 100 MLS/HR; Start 03/17/17 at 16:00 Miscellaneous Information (*Rx Drug Level Order Reminder*) VANCOMYCIN TROUGH ON 03/19 @ 15,:00 ONCE ONCE XX ; Start 03/19/17 at 15:00; Stop 03/19/17 at 15:01 ROHAN VELÁZQUEZ MD Mar 18, 2017 18:06
--- NOTE | 2017-03-18 19:34 | CONS ---
Date/Time of Note Date/Time of Note DATE: 03/18/17 TIME: 19:32 Assessment/Plan Assessment/Plan Chief Complaint/Hosp Course - fever due to bacteremia, improving - bacteremia due to E. coli, kleb pneumo and MRSA - E. coli in urine culture. Pt does not have UTI symptoms. - recurrent lactic acidosis - posterior neck pain for "years." XR showed mild degenerative spondylosis - probable gastroenteritis on admission, improved - s/p sepsis due to bacteremia - h/o bacteremia due to coag negative Staph hemolyticus on 12/26/2016 and Staph epidermidis on 12/27/2016, 12/31/2016 CoNS (not speciated) - h/o urine culture +MRSA, enterococci, lactobacillus on 12/24/2016 - h/o recurrent bacteremia due to MSSA in 10/2015 and 10/2016. Transesophageal echo on 11/12/2016 was negative for valvular vegetation - h/o low-level nonspecific increase in tracer uptake within the mediastinum on WBC tagged scan 12/31/2016 - h/o extensive catheterization - h/o persistent hypotension - h/o infected portacath, s/p removal in 2015-->new port was placed on 11/15/2016 - h/o possible small bowel obstruction, resolved - h/o acute kidney injury, resolved - Hirschsprung's disease, status post colectomy/ileostomy - MRSA colonization - hypomagnesium recommendations: - continue ceftriaxone (03/13/2017-), we recommend 2 weeks from the first negative blood culture, suggested end date 03/26/2017 - continue IV vancomycin (03/09/2017-) , we recommend 2 weeks from the first negative blood culture, suggested end date 03/26/2017 - continue mupirocin (03/14/2017-) for MRSA decolonization, plan for 10 days management d/w Pt Problems: Consultation Date/Type/Reason Admit Date/Time Mar 02, 2017 at 05:33 Initial Consult Date 03/10/17 Type of Consultation: ID Referring Provider: ROMI ESPINO 24 HR Interval Summary Constitutional: no complaints Detailed Summary Eyes: no complaints ENT: no complaints Respiratory: no complaints Cardiovascular: no complaints Gastrointestinal: no complaints, passing stool (ostomy) Genitourinary: no complaints Musculoskeletal: neck pain (chronic) Skin: no complaints Exam/Review of Systems Vital Signs Vitals Vital Signs Date Time Temp Pulse Resp B/P Pulse Ox O2 Delivery O2 Flow Rate FiO2 03/18/17 19:30 97.9 78 20 90/50 93 03/14/17 23:20 Nasal Cannula 2.0 Intake and Output 03/17/17 03/17/17 03/18/17 14:59 22:59 06:59 Intake Total 800 ml 1050 ml Output Total 500 ml Balance 800 ml 550 ml Exam Constitutional: alert, frail, oriented Psych: nl mood/affect, no complaints Head: atraumatic, normocephalic Eyes: nl conjunctiva, nl lids ENMT: nl external ears & nose, nl nasal mucosa & septum Neck: non-tender, supple, No masses, No nuchal rigidity Respiratory: diminished breath sounds Cardiovascular: nl pulses, regular rate and rhythm Gastrointestinal: non-tender, other (+ostomy bag), soft Musculoskeletal: nl extremities to inspection Extremities: No edema 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: OBSTETRICAL TECH II-XII intact, nl mental status Results Result Diagram: 03/18/1791903/18/17 0920 Results 24 hrs Laboratory Tests Test 03/18/17 09:20 White Blood Count 6.0 # Red Blood Count 3.96 #L Hemoglobin 11.6 #L Hematocrit 36.2 #L Mean Corpuscular Volume 91.4 Mean Corpuscular Hemoglobin 29.3 Mean Corpuscular Hemoglobin Concent 32.0 Red Cell Distribution Width 15.1 H Platelet Count 539 #H Mean Platelet Volume 9.7 Neutrophils % 66.7 Lymphocytes % 12.8 L Monocytes % 9.6 Eosinophils % 6.2 Basophils % 0.7 Nucleated Red Blood Cells % 0.0 Neutrophils # (Manual) 4.0 Lymphocytes # 0.8 Monocytes # 0.6 Eosinophils # 0.4 Basophils # 0.0 Nucleated Red Blood Cells # 0.0 Sodium Level 141 Potassium Level 4.7 Chloride Level 105 # Carbon Dioxide Level 29 Anion Gap 12 Blood Urea Nitrogen 12 Creatinine 0.77 Glucose Level 91 Calcium Level 9.6 Medications Medications Current Medications Sodium Chloride (NS) 1,000 ml @ 75 mls/hr [id number] IV Last administered on t 10:16; Admin Dose 75 MLS/HR; Start 03/02/17 at 12:03 Ondansetron HCl (Zofran Inj) 4 mg Q6H PRN IV NAUSEA AND/OR VOMITING Last administered on 03/14/17 14:27; Admin Dose 4 MG; Start 03/02/17 at 12:30 Acetaminophen (Tylenol Tab) 650 mg Q6H PRN PO PAIN LEVEL 1-3 OR FEVER Last administered on 03/09/17 22:29; Admin Dose 650 MG; Start 03/02/17 at 12:30 Morphine Sulfate (morphine) 2 mg Q4H PRN IV PAIN LEVEL 7-10; Start 03/02/17 at 12:30 Enoxaparin Sodium (Lovenox) 30 mg DAILY SC Last administered on 03/18/17 08:40 ; Admin Dose 30 MG; Start 03/03/17 at 09:00 Cyanocobalamin (Vitamin B12 Inj) 1,000 mcg Q28D IM Last administered on 16:13; Admin Dose 1,000 MCG; Start 03/02/17 at 12:30 Folic Acid (Folic Acid) 1 mg DAILY PO Last administered on 03/18/17 08:40; Admin Dose 1 MG; Start 03/03/17 at 09:00 Acetaminophen/ Hydrocodone Bitart ([place] (10/325)) 1 tab Q6H PRN PO PAIN; Start 03/02/17 at 12:30 Hydroxyzine Pamoate (Vistaril) 25 mg QHS PRN PO ITCHING Last administered on 22:17; Admin Dose 25 MG; Start 03/02/17 at 12:30 Midodrine (Proamatine) 2.5 mg BID@ PRN PO SBP <90 Last administered on 18:33; Admin Dose 2.5 MG; Start 03/02/17 at 12:30 Pantoprazole (Protonix Tab) 40 mg DAILY@06 PO Last administered on 03/18/17 05: 01; Admin Dose 40 MG; Start 03/03/17 at 06:00 Potassium Chloride (Klor-Con 20) 20 meq TID PO Last administered on 03/18/17 11 :53; Admin Dose 20 MEQ; Start 03/05/17 at 21:00 Sodium Bicarbonate (Sodium Bicarbonate Tab) 650 mg TID PO Last administered on 03/18/17 11:53; Admin Dose 650 MG; Start 03/07/17 at 21:00 Magnesium Chloride 64 mg 64 mg TID PO Last administered on 03/18/17 11:54; Admin Dose 64 MG; Start 03/09/17 at 13:00 Ceftriaxone Sodium (Rocephin) 50 ml @ 100 mls/hr Q24H IVPB Last administered on 03/18/17 10:17; Admin Dose 100 MLS/HR; Start 03/13/17 at 10:00 Mupirocin 1 applic 1 applic BID TOP Last administered on 03/18/17 08:43; Admin Dose 1 APPLIC; Start 03/14/17 at 13:00; Stop 03/24/17 at 12:59 Vancomycin HCl (Vancocin) 100 ml @ 100 mls/hr Q12H IVPB Last administered on 16:35; Admin Dose 100 MLS/HR; Start 03/17/17 at 16:00 Miscellaneous Information (*Rx Drug Level Order Reminder*) VANCOMYCIN TROUGH ON 03/19 @ 15,:00 ONCE ONCE XX ; Start 03/19/17 at 15:00; Stop 03/19/17 at 15:01 TAWANDA FINK M.D. Mar 18, 2017 19:34
[2017-03-19] VITALS (11 sets, daily range): BP systolic 92–100; BP diastolic 50–64; PULSE 85–102; RESP 18–20
[2017-03-19] MEDS: SOD CHLORIDE 0.9% 1,000 ML IV SCH ×2 (00:53→12:44)
[2017-03-19] MEDS: VANCOMYCIN 500MG/NS (PMX) 100 ML IVPB SCH ×2 (03:57→16:26)
[2017-03-19] MEDS: PANTOPRAZOLE (EC) 40 MG TAB PO SCH (05:52)
[2017-03-19 07:40] LABS: ABNORMAL IP MESSAGE 1; BASOPHILS % 0.7 % (0.0-2.0); EOSINOPHILS # 0.4 10^3/ul (0.0-0.5); EOSINOPHILS % 6.5 % (0.0-7.0); HEMOGLOBIN 10.8 g/dl (12.0-16.0); LYMPHOCYTES # 0.8 10^3/ul (0.8-2.9); LYMPHOCYTES % 13.3 % (15.0-51.0); MEAN CORPUSCULAR HEMOGLOBIN 28.7 pg (29.0-33.0); MEAN CORPUSCULAR HGB CONC 30.9 g/dl (32.0-37.0); MEAN CORPUSCULAR VOLUME 93.1 fl (82.0-101.0); MEAN PLATELET VOLUME 9.6 fl (7.4-10.4); MONOCYTE # 0.5 10^3/ul (0.3-0.9); MONOCYTES % 7.8 % (0.0-11.0); NEUTROPHILS % 65.9 % (39.0-77.0); PLATELET COUNT 494 10^3/UL (140-415); RED BLOOD COUNT 3.76 10^6/ul (4.20-5.40); RED CELL DISTRIBUTION WIDTH 14.9 % (11.5-14.5); WHITE BLOOD COUNT 5.9 10^3/ul (4.8-10.8)
[2017-03-19 07:44] LABS: POSITIVE DIFF @See below
[2017-03-19] MEDS: NA BICARBONATE 650 MG TAB PO SCH ×3 (08:07→20:57)
[2017-03-19] MEDS: MAGNESIUM CHLORIDE (SR) 64 MG TAB PO SCH ×3 (08:07→20:57)
[2017-03-19] MEDS: POTASSIUM CHLORIDE (SR) 20 MEQ TAB PO SCH ×3 (08:07→20:57)
[2017-03-19] MEDS: FOLIC ACID 1 MG TAB PO SCH (08:07)
[2017-03-19] MEDS: MUPIROCIN 2% 15 GM CR TOP SCH ×2 (08:08→20:58)
[2017-03-19] MEDS: ENOXAPARIN 30 MG/0.3 ML SYG SC SCH (08:09)
[2017-03-19] MEDS: CEFTRIAXONE 2 GM/50 ML (PMX) 50 ML IVPB SCH (10:21)
--- NOTE | 2017-03-19 11:04 | PN ---
Date/Time of Note Date/Time of Note DATE: 03/19/17 TIME: 10:59 Assessment/Plan VTE Prophylaxis VTE Prophylaxis Intervention: other Lines/Catheters IV Catheter Type (from [facility]): Port A Cath Urinary Cath still in place: No Assessment/Plan Assessment/Plan -Sepsis was positive blood cultures. Dr. Mcelroy is following an infection disease consultation. Continue broad-spectrum antibiotics. - Coli UTI. --Electrolyte imbalances - Severe hypokalemia- resolved - hypomagnesium- 1.6 as of 03/17 - resolved -Nausea and vomiting on admission -Acute kidney injury secondary to dehydration, Dr. Spain is following in nephrology consultation. Continue IV fluids -History of Hirschsprung disease -Ileostomy -Right chest Port-A-Cath Dw Dr Hwang Subjective 24 Hr Interval Summary ENT: no complaints Respiratory: no complaints Cardiovascular: no complaints Genitourinary: no complaints Musculoskeletal: no complaints Exam/Review of Systems Vital Signs Vitals Vital Signs Date Time Temp Pulse Resp B/P Pulse Ox O2 Delivery O2 Flow Rate FiO2 03/19/17 08:35 90 03/19/17 07:39 98.3 18 93/50 93 Intake and Output 03/18/17 03/18/17 03/19/17 14:59 22:59 06:59 Intake Total 1825 ml 1600 ml Output Total 600 ml Balance 1825 ml 1000 ml Exam Constitutional: alert, oriented Respiratory: clear to auscultation, normal air movement Cardiovascular: nl pulses, regular rate and rhythm Gastrointestinal: soft Musculoskeletal: nl extremities to inspection Extremities: normal pulses 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: nl mental status, nl speech Results Result Diagram: 03/19/17 0705 03/18/17 0920 Results 24 hrs Laboratory Tests Test 03/19/17 07:05 White Blood Count 5.9 Red Blood Count 3.76 L Hemoglobin 10.8 L Hematocrit 35.0 L Mean Corpuscular Volume 93.1 Mean Corpuscular Hemoglobin 28.7 L Mean Corpuscular Hemoglobin Concent 30.9 L Red Cell Distribution Width 14.9 H Platelet Count 494 H Mean Platelet Volume 9.6 Neutrophils % 65.9 Lymphocytes % 13.3 L Monocytes % 7.8 Eosinophils % 6.5 Basophils % 0.7 Nucleated Red Blood Cells % 0.0 Neutrophils # (Manual) 3.9 Lymphocytes # 0.8 Monocytes # 0.5 Eosinophils # 0.4 Basophils # 0.0 Nucleated Red Blood Cells # 0.0 Medications Medications Current Medications Sodium Chloride (NS) 1,000 ml @ 75 mls/hr [id number] IV Last administered on 00:53; Admin Dose 75 MLS/HR; Start 03/02/17 at 12:03 Ondansetron HCl (Zofran Inj) 4 mg Q6H PRN IV NAUSEA AND/OR VOMITING Last administered on 03/14/17 14:27; Admin Dose 4 MG; Start 03/02/17 at 12:30 Acetaminophen (Tylenol Tab) 650 mg Q6H PRN PO PAIN LEVEL 1-3 OR FEVER Last administered on 03/09/17 22:29; Admin Dose 650 MG; Start 03/02/17 at 12:30 Morphine Sulfate (morphine) 2 mg Q4H PRN IV PAIN LEVEL 7-10; Start 03/02/17 at 12:30 Enoxaparin Sodium (Lovenox) 30 mg DAILY SC Last administered on 03/19/17 08:09 ; Admin Dose 30 MG; Start 03/03/17 at 09:00 Cyanocobalamin (Vitamin B12 Inj) 1,000 mcg Q28D IM Last administered on 16:13; Admin Dose 1,000 MCG; Start 03/02/17 at 12:30 Folic Acid (Folic Acid) 1 mg DAILY PO Last administered on 03/19/17 08:07; Admin Dose 1 MG; Start 03/03/17 at 09:00 Acetaminophen/ Hydrocodone Bitart ([place] (10/325)) 1 tab Q6H PRN PO PAIN; Start 03/02/17 at 12:30 Hydroxyzine Pamoate (Vistaril) 25 mg QHS PRN PO ITCHING Last administered on 22:17; Admin Dose 25 MG; Start 03/02/17 at 12:30 Midodrine (Proamatine) 2.5 mg BID@ PRN PO SBP <90 Last administered on 18:33; Admin Dose 2.5 MG; Start 03/02/17 at 12:30 Pantoprazole (Protonix Tab) 40 mg DAILY@06 PO Last administered on 03/19/17 05: 52; Admin Dose 40 MG; Start 03/03/17 at 06:00 Potassium Chloride (Klor-Con 20) 20 meq TID PO Last administered on 03/19/17 08 :07; Admin Dose 20 MEQ; Start 03/05/17 at 21:00 Sodium Bicarbonate (Sodium Bicarbonate Tab) 650 mg TID PO Last administered on 03/19/17 08:07; Admin Dose 650 MG; Start 03/07/17 at 21:00 Magnesium Chloride 64 mg 64 mg TID PO Last administered on 03/19/17 08:07; Admin Dose 64 MG; Start 03/09/17 at 13:00 Ceftriaxone Sodium (Rocephin) 50 ml @ 100 mls/hr Q24H IVPB Last administered on 03/19/17 10:21; Admin Dose 100 MLS/HR; Start 03/13/17 at 10:00 Mupirocin 1 applic 1 applic BID TOP Last administered on 03/19/17 08:08; Admin Dose 1 APPLIC; Start 03/14/17 at 13:00; Stop 03/24/17 at 12:59 Vancomycin HCl (Vancocin) 100 ml @ 100 mls/hr Q12H IVPB Last administered on 03:57; Admin Dose 100 MLS/HR; Start 03/17/17 at 16:00 Miscellaneous Information (*Rx Drug Level Order Reminder*) VANCOMYCIN TROUGH ON 03/19 @ 15,:00 ONCE ONCE XX ; Start 03/19/17 at 15:00; Stop 03/19/17 at 15:01 DEVENDRA GOMES Mar 19, 2017 11:04
--- NOTE | 2017-03-19 14:18 | CONS ---
Date/Time of Note Date/Time of Note DATE: 03/19/17 TIME: 14:16 Assessment/Plan Assessment/Plan Chief Complaint/Hosp Course - fever due to bacteremia, resolving - bacteremia due to E. coli, kleb pneumo and MRSA, resolving - E. coli in urine culture. Pt does not have UTI symptoms. - recurrent lactic acidosis, improved - posterior neck pain for "years." XR showed mild degenerative spondylosis - probable gastroenteritis on admission, improved - s/p sepsis due to bacteremia - h/o bacteremia due to coag negative Staph hemolyticus on 12/26/2016 and Staph epidermidis on 12/27/2016, 12/31/2016 CoNS (not speciated) - h/o urine culture +MRSA, enterococci, lactobacillus on 12/24/2016 - h/o recurrent bacteremia due to MSSA in 10/2015 and 10/2016. Transesophageal echo on 11/12/2016 was negative for valvular vegetation - h/o low-level nonspecific increase in tracer uptake within the mediastinum on WBC tagged scan 12/31/2016 - h/o extensive catheterization - h/o persistent hypotension - h/o infected portacath, s/p removal in 2015-->new port was placed on 11/15/2016 - h/o possible small bowel obstruction, resolved - h/o acute kidney injury, resolved - Hirschsprung's disease, status post colectomy/ileostomy - MRSA colonization recommendations: - continue ceftriaxone (03/13/2017-), we recommend 2 weeks from the first negative blood culture, suggested end date 03/26/2017 - continue IV vancomycin (03/09/2017-) , we recommend 2 weeks from the first negative blood culture, suggested end date 03/26/2017 - continue mupirocin (03/14/2017-) for MRSA decolonization, plan for 10 days management d/w Pt Problems: Consultation Date/Type/Reason Admit Date/Time Mar 02, 2017 at 05:33 Initial Consult Date 03/10/17 Type of Consultation: ID Referring Provider: ROMI ESPINO 24 HR Interval Summary Constitutional: improved, no complaints Detailed Summary Eyes: no complaints ENT: no complaints Respiratory: no complaints Cardiovascular: no complaints Gastrointestinal: passing stool (ostomy bag) Genitourinary: no complaints Musculoskeletal: neck pain (chronic, unchanged) Skin: no complaints Neurologic: no complaints Exam/Review of Systems Vital Signs Vitals Vital Signs Date Time Temp Pulse Resp B/P Pulse Ox O2 Delivery O2 Flow Rate FiO2 03/19/17 12:29 102 03/19/17 11:30 98.0 19 94/57 93 Intake and Output 03/18/17 03/18/17 03/19/17 15:00 23:00 07:00 Intake Total 1825 ml 1600 ml Output Total 600 ml Balance 1825 ml 1000 ml Exam Constitutional: alert, oriented, No frail Psych: nl mood/affect, no complaints Head: atraumatic, normocephalic Eyes: nl conjunctiva, nl lids ENMT: nl external ears & nose, nl nasal mucosa & septum Neck: supple Respiratory: diminished breath sounds Cardiovascular: nl pulses, regular rate and rhythm Gastrointestinal: non-tender, other (ostomy bag), soft, No distended Musculoskeletal: nl extremities to inspection Extremities: normal pulses, No edema 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: MANAGER CAFE II-XII intact, nl mental status, nl speech Skin: nl turgor Results Result Diagram: 03/19/17 0705 03/18/17 0920 Results 24 hrs Laboratory Tests Test 03/19/17 07:05 White Blood Count 5.9 Red Blood Count 3.76 L Hemoglobin 10.8 L Hematocrit 35.0 L Mean Corpuscular Volume 93.1 Mean Corpuscular Hemoglobin 28.7 L Mean Corpuscular Hemoglobin Concent 30.9 L Red Cell Distribution Width 14.9 H Platelet Count 494 H Mean Platelet Volume 9.6 Neutrophils % 65.9 Lymphocytes % 13.3 L Monocytes % 7.8 Eosinophils % 6.5 Basophils % 0.7 Nucleated Red Blood Cells % 0.0 Neutrophils # (Manual) 3.9 Lymphocytes # 0.8 Monocytes # 0.5 Eosinophils # 0.4 Basophils # 0.0 Nucleated Red Blood Cells # 0.0 Medications Medications Current Medications Sodium Chloride (NS) 1,000 ml @ 75 mls/hr [id number] IV Last administered on 12:44; Admin Dose 75 MLS/HR; Start 03/02/17 at 12:03 Ondansetron HCl (Zofran Inj) 4 mg Q6H PRN IV NAUSEA AND/OR VOMITING Last administered on 03/14/17 14:27; Admin Dose 4 MG; Start 03/02/17 at 12:30 Acetaminophen (Tylenol Tab) 650 mg Q6H PRN PO PAIN LEVEL 1-3 OR FEVER Last administered on 03/09/17 22:29; Admin Dose 650 MG; Start 03/02/17 at 12:30 Morphine Sulfate (morphine) 2 mg Q4H PRN IV PAIN LEVEL 7-10; Start 03/02/17 at 12:30 Enoxaparin Sodium (Lovenox) 30 mg DAILY SC Last administered on 03/19/17 08:09 ; Admin Dose 30 MG; Start 03/03/17 at 09:00 Cyanocobalamin (Vitamin B12 Inj) 1,000 mcg Q28D IM Last administered on 16:13; Admin Dose 1,000 MCG; Start 03/02/17 at 12:30 Folic Acid (Folic Acid) 1 mg DAILY PO Last administered on 03/19/17 08:07; Admin Dose 1 MG; Start 03/03/17 at 09:00 Acetaminophen/ Hydrocodone Bitart ([place] (10/325)) 1 tab Q6H PRN PO PAIN; Start 03/02/17 at 12:30 Hydroxyzine Pamoate (Vistaril) 25 mg QHS PRN PO ITCHING Last administered on 22:17; Admin Dose 25 MG; Start 03/02/17 at 12:30 Midodrine (Proamatine) 2.5 mg BID@17 PRN PO SBP <90 Last administered on 18:33; Admin Dose 2.5 MG; Start 03/02/17 at 12:30 Pantoprazole (Protonix Tab) 40 mg DAILY@06 PO Last administered on 03/19/17 05: 52; Admin Dose 40 MG; Start 03/03/17 at 06:00 Potassium Chloride (Klor-Con 20) 20 meq TID PO Last administered on 03/19/17 12 :44; Admin Dose 20 MEQ; Start 03/05/17 at 21:00 Sodium Bicarbonate (Sodium Bicarbonate Tab) 650 mg TID PO Last administered on 03/19/17 12:44; Admin Dose 650 MG; Start 03/07/17 at 21:00 Magnesium Chloride 64 mg 64 mg TID PO Last administered on 03/19/17 12:44; Admin Dose 64 MG; Start 03/09/17 at 13:00 Ceftriaxone Sodium (Rocephin) 50 ml @ 100 mls/hr Q24H IVPB Last administered on 03/19/17 10:21; Admin Dose 100 MLS/HR; Start 03/13/17 at 10:00 Mupirocin 1 applic 1 applic BID TOP Last administered on 03/19/17 08:08; Admin Dose 1 APPLIC; Start 03/14/17 at 13:00; Stop 03/24/17 at 12:59 Vancomycin HCl (Vancocin) 100 ml @ 100 mls/hr Q12H IVPB Last administered on 03:57; Admin Dose 100 MLS/HR; Start 03/17/17 at 16:00 Miscellaneous Information (*Rx Drug Level Order Reminder*) VANCOMYCIN TROUGH ON 03/19 @ 15,:00 ONCE ONCE XX ; Start 03/19/17 at 15:00; Stop 03/19/17 at 15:01 TAWANDA FINK M.D. Mar 19, 2017 14:18
--- NOTE | 2017-03-19 16:28 | CONS ---
Date/Time of Note Date/Time of Note DATE: 03/19/17 TIME: 16:27 Assessment/Plan Assessment/Plan Additional Assessment/Plan 1. acute Kidney injury due to severe prerenal azotemia 2. Acute Hyperkalemia with K 6.0 to now Hypokalemic 3. Nausea,vomiting 4. Hypomagnesemia 5. Metabolic acidosis 6. H/o Hirschsprung disease s/p colostomy 7. Hypomagnesemia severe plan: Electrolytes and Cr stable today continue KCl 20mEQ TID , conitnue Magnesium chloride 64- TID [place] 2.5mg BID Prn hypotension will follow up Consultation Date/Type/Reason Admit Date/Time Mar 02, 2017 at 05:33 Initial Consult Date 03/02/17 Type of Consultation: NEPHROLOGY Referring Provider: ROMI ESPINO 24 HR Interval Summary Free Text/Dictation doing well, Electrolytes and Cr stable Exam/Review of Systems Vital Signs Vitals Vital Signs Date Time Temp Pulse Resp B/P Pulse Ox O2 Delivery O2 Flow Rate FiO2 03/19/17 16:10 96 03/19/17 16:02 98.6 19 94/52 98 Intake and Output 03/18/17 03/18/17 03/19/17 15:00 23:00 07:00 Intake Total 1825 ml 1600 ml Output Total 600 ml Balance 1825 ml 1000 ml Results Result Diagram: 03/19/17 0705 03/18/17 0920 Results 24 hrs Laboratory Tests Test 03/19/17 07:05 03/19/17 14:55 White Blood Count 5.9 Red Blood Count 3.76 L Hemoglobin 10.8 L Hematocrit 35.0 L Mean Corpuscular Volume 93.1 Mean Corpuscular Hemoglobin 28.7 L Mean Corpuscular Hemoglobin Concent 30.9 L Red Cell Distribution Width 14.9 H Platelet Count 494 H Mean Platelet Volume 9.6 Neutrophils % 65.9 Lymphocytes % 13.3 L Monocytes % 7.8 Eosinophils % 6.5 Basophils % 0.7 Nucleated Red Blood Cells % 0.0 Neutrophils # (Manual) 3.9 Lymphocytes # 0.8 Monocytes # 0.5 Eosinophils # 0.4 Basophils # 0.0 Nucleated Red Blood Cells # 0.0 Vancomycin Level Trough 16.2 Medications Medications Current Medications Sodium Chloride (NS) 1,000 ml @ 75 mls/hr [id number] IV Last administered on 12:44; Admin Dose 75 MLS/HR; Start 03/02/17 at 12:03 Ondansetron HCl (Zofran Inj) 4 mg Q6H PRN IV NAUSEA AND/OR VOMITING Last administered on 03/14/17 14:27; Admin Dose 4 MG; Start 03/02/17 at 12:30 Acetaminophen (Tylenol Tab) 650 mg Q6H PRN PO PAIN LEVEL 1-3 OR FEVER Last administered on 03/09/17 22:29; Admin Dose 650 MG; Start 03/02/17 at 12:30 Morphine Sulfate (morphine) 2 mg Q4H PRN IV PAIN LEVEL 7-10; Start 03/02/17 at 12:30 Enoxaparin Sodium (Lovenox) 30 mg DAILY SC Last administered on 03/19/17 08:09 ; Admin Dose 30 MG; Start 03/03/17 at 09:00 Cyanocobalamin (Vitamin B12 Inj) 1,000 mcg Q28D IM Last administered on 16:13; Admin Dose 1,000 MCG; Start 03/02/17 at 12:30 Folic Acid (Folic Acid) 1 mg DAILY PO Last administered on 03/19/17 08:07; Admin Dose 1 MG; Start 03/03/17 at 09:00 Acetaminophen/ Hydrocodone Bitart ([place] (10/325)) 1 tab Q6H PRN PO PAIN; Start 03/02/17 at 12:30 Hydroxyzine Pamoate (Vistaril) 25 mg QHS PRN PO ITCHING Last administered on 22:17; Admin Dose 25 MG; Start 03/02/17 at 12:30 Midodrine (Proamatine) 2.5 mg BID@ PRN PO SBP <90 Last administered on 18:33; Admin Dose 2.5 MG; Start 03/02/17 at 12:30 Pantoprazole (Protonix Tab) 40 mg DAILY@06 PO Last administered on 03/19/17 05: 52; Admin Dose 40 MG; Start 03/03/17 at 06:00 Potassium Chloride (Klor-Con 20) 20 meq TID PO Last administered on 03/19/17 12 :44; Admin Dose 20 MEQ; Start 03/05/17 at 21:00 Sodium Bicarbonate (Sodium Bicarbonate Tab) 650 mg TID PO Last administered on 03/19/17 12:44; Admin Dose 650 MG; Start 03/07/17 at 21:00 Magnesium Chloride 64 mg 64 mg TID PO Last administered on 03/19/17 12:44; Admin Dose 64 MG; Start 03/09/17 at 13:00 Ceftriaxone Sodium (Rocephin) 50 ml @ 100 mls/hr Q24H IVPB Last administered on 03/19/17 10:21; Admin Dose 100 MLS/HR; Start 03/13/17 at 10:00 Mupirocin 1 applic 1 applic BID TOP Last administered on 03/19/17 08:08; Admin Dose 1 APPLIC; Start 03/14/17 at 13:00; Stop 03/24/17 at 12:59 Vancomycin HCl (Vancocin) 100 ml @ 100 mls/hr Q12H IVPB Last administered on 16:26; Admin Dose 100 MLS/HR; Start 03/17/17 at 16:00; Stop 03/19/17 at 18 :00 ROHAN VELÁZQUEZ MD Mar 19, 2017 16:27
[2017-03-20] VITALS (10 sets, daily range): BP systolic 92–101; BP diastolic 51–57; PULSE 87–104; RESP 17–20
[2017-03-20] MEDS: SOD CHLORIDE 0.9% 1,000 ML IV SCH ×3 (02:37→20:39)
[2017-03-20] MEDS: PANTOPRAZOLE (EC) 40 MG TAB PO SCH (06:07)
[2017-03-20 08:42] LABS: BASOPHIL # 0.1 10^3/ul (0.0-0.1); BASOPHILS % 0.8 % (0.0-2.0); EOSINOPHILS # 0.5 10^3/ul (0.0-0.5); EOSINOPHILS % 6.1 % (0.0-7.0); HEMATOCRIT 35.8 % (37.0-47.0); HEMOGLOBIN 11.3 g/dl (12.0-16.0); LYMPHOCYTES # 0.9 10^3/ul (0.8-2.9); LYMPHOCYTES % 11.6 % (15.0-51.0); MEAN CORPUSCULAR HEMOGLOBIN 29.1 pg (29.0-33.0); MEAN CORPUSCULAR HGB CONC 31.6 g/dl (32.0-37.0); MEAN CORPUSCULAR VOLUME 92.3 fl (82.0-101.0); MONOCYTE # 0.6 10^3/ul (0.3-0.9); MONOCYTES % 8.1 % (0.0-11.0); NEUTROPHILS % 68.5 % (39.0-77.0); PLATELET COUNT 498 10^3/UL (140-415); RED BLOOD COUNT 3.88 10^6/ul (4.20-5.40); RED CELL DISTRIBUTION WIDTH 14.9 % (11.5-14.5); WHITE BLOOD COUNT 7.5 10^3/ul (4.8-10.8)
[2017-03-20] MEDS: FOLIC ACID 1 MG TAB PO SCH (09:19)
[2017-03-20] MEDS: ENOXAPARIN 30 MG/0.3 ML SYG SC SCH (09:20)
[2017-03-20] MEDS: NA BICARBONATE 650 MG TAB PO SCH ×3 (09:21→20:19)
[2017-03-20] MEDS: POTASSIUM CHLORIDE (SR) 20 MEQ TAB PO SCH ×3 (09:21→20:20)
[2017-03-20] MEDS: CEFTRIAXONE 2 GM/50 ML (PMX) 50 ML IVPB SCH (09:21)
[2017-03-20] MEDS: MAGNESIUM CHLORIDE (SR) 64 MG TAB PO SCH ×3 (09:21→20:22)
[2017-03-20] MEDS: MUPIROCIN 2% 15 GM CR TOP SCH ×2 (09:25→20:21)
[2017-03-20 09:30] LABS: CALCIUM 9.4 mg/dl (8.4-10.2); CREATININE 0.81 mg/dl (0.44-1.00); POTASSIUM 3.9 mmol/L (3.5-5.1)
[2017-03-20] MEDS: VANCOMYCIN 1 GM (PMX) 250 ML IVPB SCH (09:30)
--- NOTE | 2017-03-20 12:44 | PN ---
Date/Time of Note Date/Time of Note DATE: 03/20/17 TIME: 12:40 Assessment/Plan Lines/Catheters IV Catheter Type (from [facility]): pORTACATH Urinary Cath still in place: No Assessment/Plan Assessment/Plan -Sepsis was positive blood cultures. Dr. Mcelroy is following an infection disease consultation. Continue broad-spectrum antibiotics. - Coli UTI. --Electrolyte imbalances - Severe hypokalemia- resolved - hypomagnesium- 1.6 as of 03/17 - resolved -Nausea and vomiting on admission -Acute kidney injury secondary to dehydration, Dr. Spain is following in nephrology consultation. Continue IV fluids -History of Hirschsprung disease -Ileostomy -Right chest Port-A-Cath Dw Dr Hwang Subjective 24 Hr Interval Summary Respiratory: no complaints Cardiovascular: no complaints Gastrointestinal: no complaints Genitourinary: no complaints Musculoskeletal: no complaints Skin: no complaints Exam/Review of Systems Vital Signs Vitals Vital Signs Date Time Temp Pulse Resp B/P Pulse Ox O2 Delivery O2 Flow Rate FiO2 03/20/17 12:14 104 03/20/17 11:52 98.0 18 93/51 100 Intake and Output 03/19/17 03/19/17 03/20/17 15:00 23:00 07:00 Intake Total 1900 ml Balance 1900 ml Exam Constitutional: alert, oriented, well developed Respiratory: clear to auscultation, normal air movement Cardiovascular: nl pulses, regular rate and rhythm Gastrointestinal: non-tender, other (ILeostomy ), soft Musculoskeletal: nl extremities to inspection Extremities: normal pulses 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: nl mental status, nl speech Results Result Diagram: 03/20/17 0832 03/20/17 0832 Results 24 hrs Laboratory Tests Test 03/19/17 14:55 03/20/17 08:32 Vancomycin Level Trough 16.2 White Blood Count 7.5 # Red Blood Count 3.88 L Hemoglobin 11.3 L Hematocrit 35.8 L Mean Corpuscular Volume 92.3 Mean Corpuscular Hemoglobin 29.1 Mean Corpuscular Hemoglobin Concent 31.6 L Red Cell Distribution Width 14.9 H Platelet Count 498 H Mean Platelet Volume 9.0 Neutrophils % 68.5 Lymphocytes % 11.6 L Monocytes % 8.1 Eosinophils % 6.1 Basophils % 0.8 Nucleated Red Blood Cells % 0.0 Neutrophils # (Manual) 5.1 Lymphocytes # 0.9 Monocytes # 0.6 Eosinophils # 0.5 Basophils # 0.1 Nucleated Red Blood Cells # 0.0 Sodium Level 142 Potassium Level 3.9 Chloride Level 110 Carbon Dioxide Level 24 Anion Gap 12 Blood Urea Nitrogen 13 Creatinine 0.81 Glucose Level 85 Calcium Level 9.4 Medications Medications Current Medications Sodium Chloride (NS) 1,000 ml @ 75 mls/hr [id number] IV Last administered on 05:01; Admin Dose 75 MLS/HR; Start 03/02/17 at 12:03 Ondansetron HCl (Zofran Inj) 4 mg Q6H PRN IV NAUSEA AND/OR VOMITING Last administered on 03/14/17 14:27; Admin Dose 4 MG; Start 03/02/17 at 12:30 Acetaminophen (Tylenol Tab) 650 mg Q6H PRN PO PAIN LEVEL 1-3 OR FEVER Last administered on 03/09/17 22:29; Admin Dose 650 MG; Start 03/02/17 at 12:30 Morphine Sulfate (morphine) 2 mg Q4H PRN IV PAIN LEVEL 7-10; Start 03/02/17 at 12:30 Enoxaparin Sodium (Lovenox) 30 mg DAILY SC Last administered on 03/20/17 09:20 ; Admin Dose 30 MG; Start 03/03/17 at 09:00 Cyanocobalamin (Vitamin B12 Inj) 1,000 mcg Q28D IM Last administered on 16:13; Admin Dose 1,000 MCG; Start 03/02/17 at 12:30 Folic Acid (Folic Acid) 1 mg DAILY PO Last administered on 03/20/17 09:19; Admin Dose 1 MG; Start 03/03/17 at 09:00 Acetaminophen/ Hydrocodone Bitart ([place] (10/325)) 1 tab Q6H PRN PO PAIN; Start 03/02/17 at 12:30 Hydroxyzine Pamoate (Vistaril) 25 mg QHS PRN PO ITCHING Last administered on 22:17; Admin Dose 25 MG; Start 03/02/17 at 12:30 Midodrine (Proamatine) 2.5 mg BID@ PRN PO SBP <90 Last administered on 18:33; Admin Dose 2.5 MG; Start 03/02/17 at 12:30 Pantoprazole (Protonix Tab) 40 mg DAILY@06 PO Last administered on 03/20/17 06: 07; Admin Dose 40 MG; Start 03/03/17 at 06:00 Potassium Chloride (Klor-Con 20) 20 meq TID PO Last administered on 03/20/17 09 :21; Admin Dose 20 MEQ; Start 03/05/17 at 21:00 Sodium Bicarbonate (Sodium Bicarbonate Tab) 650 mg TID PO Last administered on 03/20/17 09:21; Admin Dose 650 MG; Start 03/07/17 at 21:00 Magnesium Chloride 64 mg 64 mg TID PO Last administered on 03/20/17 09:21; Admin Dose 64 MG; Start 03/09/17 at 13:00 Ceftriaxone Sodium (Rocephin) 50 ml @ 100 mls/hr Q24H IVPB Last administered on 03/20/17 09:21; Admin Dose 100 MLS/HR; Start 03/13/17 at 10:00 Mupirocin 1 applic 1 applic BID TOP Last administered on 03/20/17 09:25; Admin Dose 1 APPLIC; Start 03/14/17 at 13:00; Stop 03/24/17 at 12:59 Vancomycin HCl (Vancocin) 250 ml @ 166.667 mls/hr Q24H IVPB Last administered on 03/20/17 09:30; Admin Dose 166.667 MLS/HR; Start 03/20/17 at 10:00 DEVENDRA GOMES Mar 20, 2017 12:44
--- NOTE | 2017-03-20 16:37 | CONS ---
Date/Time of Note Date/Time of Note DATE: 03/20/17 TIME: 16:35 Assessment/Plan Assessment/Plan Additional Assessment/Plan 1. acute Kidney injury due to severe prerenal azotemia 2. Acute Hyperkalemia- now resolved 3. Nausea,vomiting 4. Hypomagnesemia 5. Metabolic acidosis 6. H/o Hirschsprung disease s/p colostomy 7. Hypomagnesemia severe plan: Electrolytes and Cr stable today continue KCl 20mEQ TID , conitnue Magnesium chloride 64- TID [place] 2.5mg BID Prn hypotension will follow up Consultation Date/Type/Reason Admit Date/Time Mar 02, 2017 at 05:33 Initial Consult Date 03/02/17 Type of Consultation: NEPHROLOGY Referring Provider: ROMI ESPINO Exam/Review of Systems Vital Signs Vitals Vital Signs Date Time Temp Pulse Resp B/P Pulse Ox O2 Delivery O2 Flow Rate FiO2 03/20/17 16:24 87 03/20/17 11:52 98.0 18 93/51 100 Intake and Output 03/19/17 03/19/17 03/20/17 15:00 23:00 07:00 Intake Total 1900 ml Balance 1900 ml Exam Constitutional: alert, oriented Respiratory: clear to auscultation, intercostal retraction, normal air movement Cardiovascular: nl pulses, regular rate and rhythm Gastrointestinal: non-tender, soft, + colostomy Musculoskeletal: nl extremities to inspection Extremities: normal pulses 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: [employer] CHIEF INSPECTOR II-XII intact, nl mental status, nl speech, nl strength Results Result Diagram: 03/20/17 0832 03/20/17 0832 Results 24 hrs Laboratory Tests Test 03/20/17 08:32 White Blood Count 7.5 # Red Blood Count 3.88 L Hemoglobin 11.3 L Hematocrit 35.8 L Mean Corpuscular Volume 92.3 Mean Corpuscular Hemoglobin 29.1 Mean Corpuscular Hemoglobin Concent 31.6 L Red Cell Distribution Width 14.9 H Platelet Count 498 H Mean Platelet Volume 9.0 Neutrophils % 68.5 Lymphocytes % 11.6 L Monocytes % 8.1 Eosinophils % 6.1 Basophils % 0.8 Nucleated Red Blood Cells % 0.0 Neutrophils # (Manual) 5.1 Lymphocytes # 0.9 Monocytes # 0.6 Eosinophils # 0.5 Basophils # 0.1 Nucleated Red Blood Cells # 0.0 Sodium Level 142 Potassium Level 3.9 Chloride Level 110 Carbon Dioxide Level 24 Anion Gap 12 Blood Urea Nitrogen 13 Creatinine 0.81 Glucose Level 85 Calcium Level 9.4 Medications Medications Current Medications Sodium Chloride (NS) 1,000 ml @ 75 mls/hr [id number] IV Last administered on 05:01; Admin Dose 75 MLS/HR; Start 03/02/17 at 12:03 Ondansetron HCl (Zofran Inj) 4 mg Q6H PRN IV NAUSEA AND/OR VOMITING Last administered on 03/14/17 14:27; Admin Dose 4 MG; Start 03/02/17 at 12:30 Acetaminophen (Tylenol Tab) 650 mg Q6H PRN PO PAIN LEVEL 1-3 OR FEVER Last administered on 03/09/17 22:29; Admin Dose 650 MG; Start 03/02/17 at 12:30 Morphine Sulfate (morphine) 2 mg Q4H PRN IV PAIN LEVEL 7-10; Start 03/02/17 at 12:30 Enoxaparin Sodium (Lovenox) 30 mg DAILY SC Last administered on 03/20/17 09:20 ; Admin Dose 30 MG; Start 03/03/17 at 09:00 Cyanocobalamin (Vitamin B12 Inj) 1,000 mcg Q28D IM Last administered on 16:13; Admin Dose 1,000 MCG; Start 03/02/17 at 12:30 Folic Acid (Folic Acid) 1 mg DAILY PO Last administered on 03/20/17 09:19; Admin Dose 1 MG; Start 03/03/17 at 09:00 Acetaminophen/ Hydrocodone Bitart ([place] (10/325)) 1 tab Q6H PRN PO PAIN; Start 03/02/17 at 12:30 Hydroxyzine Pamoate (Vistaril) 25 mg QHS PRN PO ITCHING Last administered on 22:17; Admin Dose 25 MG; Start 03/02/17 at 12:30 Midodrine (Proamatine) 2.5 mg BID@ PRN PO SBP <90 Last administered on 18:33; Admin Dose 2.5 MG; Start 03/02/17 at 12:30 Pantoprazole (Protonix Tab) 40 mg DAILY@06 PO Last administered on 03/20/17 06: 07; Admin Dose 40 MG; Start 03/03/17 at 06:00 Potassium Chloride (Klor-Con 20) 20 meq TID PO Last administered on 03/20/17 13 :24; Admin Dose 20 MEQ; Start 03/05/17 at 21:00 Sodium Bicarbonate (Sodium Bicarbonate Tab) 650 mg TID PO Last administered on 03/20/17 13:24; Admin Dose 650 MG; Start 03/07/17 at 21:00 Magnesium Chloride 64 mg 64 mg TID PO Last administered on 03/20/17 13:23; Admin Dose 64 MG; Start 03/09/17 at 13:00 Ceftriaxone Sodium (Rocephin) 50 ml @ 100 mls/hr Q24H IVPB Last administered on 03/20/17 09:21; Admin Dose 100 MLS/HR; Start 03/13/17 at 10:00 Mupirocin 1 applic 1 applic BID TOP Last administered on 03/20/17 09:25; Admin Dose 1 APPLIC; Start 03/14/17 at 13:00; Stop 03/24/17 at 12:59 Vancomycin HCl (Vancocin) 250 ml @ 166.667 mls/hr Q24H IVPB Last administered on 03/20/17 09:30; Admin Dose 166.667 MLS/HR; Start 03/20/17 at 10:00 ROHAN VELÁZQUEZ MD Mar 20, 2017 16:37
[2017-03-20] MEDS: hydrOXYzine PAMOATE 25 MG CAP PO PRN (22:35)
[2017-03-21] VITALS (13 sets, daily range): BP systolic 83–102; BP diastolic 50–64; PULSE 68–113; RESP 16–18
--- NOTE | 2017-03-21 03:51 | CONS ---
Date/Time of Note Date/Time of Note DATE: 03/20/17 TIME: 22:00 Assessment/Plan Assessment/Plan Chief Complaint/Hosp Course - fever due to bacteremia, resolving - bacteremia due to E. coli, kleb pneumo and MRSA, resolving - E. coli in urine culture. Pt does not have UTI symptoms. - recurrent lactic acidosis, improved - posterior neck pain for "years." XR showed mild degenerative spondylosis - probable gastroenteritis on admission, improved - s/p sepsis due to bacteremia - h/o bacteremia due to coag negative Staph hemolyticus on 12/26/2016 and Staph epidermidis on 12/27/2016, 12/31/2016 CoNS (not speciated) - h/o urine culture +MRSA, enterococci, lactobacillus on 12/24/2016 - h/o recurrent bacteremia due to MSSA in 10/2015 and 10/2016. Transesophageal echo on 11/12/2016 was negative for valvular vegetation - h/o low-level nonspecific increase in tracer uptake within the mediastinum on WBC tagged scan 12/31/2016 - h/o extensive catheterization - h/o persistent hypotension - h/o infected portacath, s/p removal in 2015-->new port was placed on 11/15/2016 - h/o possible small bowel obstruction, resolved - h/o acute kidney injury, resolved - Hirschsprung's disease, status post colectomy/ileostomy - MRSA colonization recommendations: - continue ceftriaxone (03/13/2017-), we recommend 2 weeks from the first negative blood culture, suggested end date 03/26/2017 - continue IV vancomycin (03/09/2017-) , we recommend 2 weeks from the first negative blood culture, suggested end date 03/26/2017 - continue mupirocin (03/14/2017-) for MRSA decolonization, plan for 10 days management d/w Pt, her mother Date of service: 03/20/2017 Problems: Consultation Date/Type/Reason Admit Date/Time Mar 02, 2017 at 05:33 Initial Consult Date 03/10/17 Type of Consultation: NEPHROLOGY Referring Provider: ROMI ESPINO 24 HR Interval Summary Constitutional: no complaints Detailed Summary Eyes: no complaints ENT: no complaints Respiratory: no complaints Cardiovascular: no complaints Gastrointestinal: no complaints, passing stool Genitourinary: no complaints Musculoskeletal: neck pain Skin: no complaints Neurologic: no complaints Exam/Review of Systems Vital Signs Vitals Vital Signs Date Time Temp Pulse Resp B/P Pulse Ox O2 Delivery O2 Flow Rate FiO2 03/21/17 00:25 97.9 81 16 95/50 98 Intake and Output 03/20/17 03/20/17 03/21/17 15:00 23:00 07:00 Intake Total 300 ml 1200 ml Output Total 600 ml Balance 300 ml 600 ml Exam Constitutional: alert, oriented Psych: nl mood/affect, no complaints Head: atraumatic, normocephalic Eyes: nl conjunctiva, nl lids ENMT: nl external ears & nose, nl nasal mucosa & septum Neck: No masses, No nuchal rigidity Respiratory: clear to auscultation, normal air movement Cardiovascular: nl pulses, regular rate and rhythm Gastrointestinal: non-tender, other (colostomy), soft Musculoskeletal: nl extremities to inspection Extremities: normal pulses 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: HAND SURGEON II-XII intact, nl mental status Results Result Diagram: 03/20/17 0832 03/20/17 0832 Results 24 hrs Laboratory Tests Test 03/20/17 08:32 White Blood Count 7.5 # Red Blood Count 3.88 L Hemoglobin 11.3 L Hematocrit 35.8 L Mean Corpuscular Volume 92.3 Mean Corpuscular Hemoglobin 29.1 Mean Corpuscular Hemoglobin Concent 31.6 L Red Cell Distribution Width 14.9 H Platelet Count 498 H Mean Platelet Volume 9.0 Neutrophils % 68.5 Lymphocytes % 11.6 L Monocytes % 8.1 Eosinophils % 6.1 Basophils % 0.8 Nucleated Red Blood Cells % 0.0 Neutrophils # (Manual) 5.1 Lymphocytes # 0.9 Monocytes # 0.6 Eosinophils # 0.5 Basophils # 0.1 Nucleated Red Blood Cells # 0.0 Sodium Level 142 Potassium Level 3.9 Chloride Level 110 Carbon Dioxide Level 24 Anion Gap 12 Blood Urea Nitrogen 13 Creatinine 0.81 Glucose Level 85 Calcium Level 9.4 Medications Medications Current Medications Sodium Chloride (NS) 1,000 ml @ 75 mls/hr [id number] IV Last administered on t 20:39; Admin Dose 75 MLS/HR; Start 03/02/17 at 12:03 Ondansetron HCl (Zofran Inj) 4 mg Q6H PRN IV NAUSEA AND/OR VOMITING Last administered on 03/14/17 14:27; Admin Dose 4 MG; Start 03/02/17 at 12:30 Acetaminophen (Tylenol Tab) 650 mg Q6H PRN PO PAIN LEVEL 1-3 OR FEVER Last administered on 03/09/17 22:29; Admin Dose 650 MG; Start 03/02/17 at 12:30 Morphine Sulfate (morphine) 2 mg Q4H PRN IV PAIN LEVEL 7-10; Start 03/02/17 at 12:30 Enoxaparin Sodium (Lovenox) 30 mg DAILY SC Last administered on 03/20/17 09:20 ; Admin Dose 30 MG; Start 03/03/17 at 09:00 Cyanocobalamin (Vitamin B12 Inj) 1,000 mcg Q28D IM Last administered on 16:13; Admin Dose 1,000 MCG; Start 03/02/17 at 12:30 Folic Acid (Folic Acid) 1 mg DAILY PO Last administered on 03/20/17 09:19; Admin Dose 1 MG; Start 03/03/17 at 09:00 Acetaminophen/ Hydrocodone Bitart ([place] (10/325)) 1 tab Q6H PRN PO PAIN; Start 03/02/17 at 12:30 Hydroxyzine Pamoate (Vistaril) 25 mg QHS PRN PO ITCHING Last administered on 22:35; Admin Dose 25 MG; Start 03/02/17 at 12:30 Midodrine (Proamatine) 2.5 mg BID@ PRN PO SBP <90 Last administered on 18:33; Admin Dose 2.5 MG; Start 03/02/17 at 12:30 Pantoprazole (Protonix Tab) 40 mg DAILY@06 PO Last administered on 03/20/17 06: 07; Admin Dose 40 MG; Start 03/03/17 at 06:00 Potassium Chloride (Klor-Con 20) 20 meq TID PO Last administered on 03/20/17 20 :20; Admin Dose 20 MEQ; Start 03/05/17 at 21:00 Sodium Bicarbonate (Sodium Bicarbonate Tab) 650 mg TID PO Last administered on 03/20/17 20:19; Admin Dose 650 MG; Start 03/07/17 at 21:00 Magnesium Chloride 64 mg 64 mg TID PO Last administered on 03/20/17 20:22; Admin Dose 64 MG; Start 03/09/17 at 13:00 Ceftriaxone Sodium (Rocephin) 50 ml @ 100 mls/hr Q24H IVPB Last administered on 03/20/17 09:21; Admin Dose 100 MLS/HR; Start 03/13/17 at 10:00 Mupirocin 1 applic 1 applic BID TOP Last administered on 03/20/17 20:21; Admin Dose 1 APPLIC; Start 03/14/17 at 13:00; Stop 03/24/17 at 12:59 Vancomycin HCl (Vancocin) 250 ml @ 166.667 mls/hr Q24H IVPB Last administered on 03/20/17 09:30; Admin Dose 166.667 MLS/HR; Start 03/20/17 at 10:00 TAWANDA FINK M.D. Mar 21, 2017 03:51
[2017-03-21] MEDS: SOD CHLORIDE 0.9% 1,000 ML IV SCH ×3 (04:50→18:37)
[2017-03-21] MEDS: PANTOPRAZOLE (EC) 40 MG TAB PO SCH (05:05)
[2017-03-21 08:05] LABS: BASOPHIL # 0.1 10^3/ul (0.0-0.1); BASOPHILS % 1.3 % (0.0-2.0); EOSINOPHILS # 0.5 10^3/ul (0.0-0.5); HEMATOCRIT 35.6 % (37.0-47.0); HEMOGLOBIN 11.1 g/dl (12.0-16.0); LYMPHOCYTES # 0.7 10^3/ul (0.8-2.9); LYMPHOCYTES % 12.1 % (15.0-51.0); MEAN CORPUSCULAR HGB CONC 31.2 g/dl (32.0-37.0); MEAN PLATELET VOLUME 9.4 fl (7.4-10.4); MONOCYTE # 0.6 10^3/ul (0.3-0.9); NEUTROPHILS % 63.6 % (39.0-77.0); PLATELET COUNT 466 10^3/UL (140-415); RED BLOOD COUNT 3.83 10^6/ul (4.20-5.40); WHITE BLOOD COUNT 5.6 10^3/ul (4.8-10.8)
[2017-03-21 08:48] LABS: CREATININE 0.84 mg/dl (0.44-1.00); POTASSIUM 3.8 mmol/L (3.5-5.1)
[2017-03-21] MEDS: MAGNESIUM CHLORIDE (SR) 64 MG TAB PO SCH ×3 (09:22→20:37)
[2017-03-21] MEDS: NA BICARBONATE 650 MG TAB PO SCH ×3 (09:22→20:37)
[2017-03-21] MEDS: POTASSIUM CHLORIDE (SR) 20 MEQ TAB PO SCH ×3 (09:22→20:37)
[2017-03-21] MEDS: FOLIC ACID 1 MG TAB PO SCH (09:22)
[2017-03-21] MEDS: CEFTRIAXONE 2 GM/50 ML (PMX) 50 ML IVPB SCH (09:24)
[2017-03-21] MEDS: VANCOMYCIN 1 GM (PMX) 250 ML IVPB SCH (09:24)
[2017-03-21] MEDS: ENOXAPARIN 30 MG/0.3 ML SYG SC SCH (09:24)
[2017-03-21] MEDS: MUPIROCIN 2% 15 GM CR TOP SCH ×2 (09:24→20:38)
--- NOTE | 2017-03-21 11:38 | PN ---
Date/Time of Note Date/Time of Note DATE: 03/21/17 TIME: 11:37 Assessment/Plan Lines/Catheters IV C[facility] Type (from [facility] PORTACATH Urinary Cath still in place: No Assessment/Plan Assessment/Plan -Sepsis was positive blood cultures. Dr. Mcelroy is following an infection disease consultation. Continue broad-spectrum antibiotics. - Coli UTI. --Electrolyte imbalances - Severe hypokalemia- resolved - hypomagnesium- 1.6 as of 03/17 - resolved -Nausea and vomiting on admission -Acute kidney injury secondary to dehydration, Dr. Spain is following in nephrology consultation. Continue IV fluids -History of Hirschsprung disease -Ileostomy -Right chest Port-A-Cath Dw Dr Hwang Subjective 24 Hr Interval Summary Respiratory: no complaints Cardiovascular: no complaints Gastrointestinal: nausea Genitourinary: no complaints Musculoskeletal: no complaints Skin: no complaints Exam/Review of Systems Vital Signs Vitals Vital Signs Date Time Temp Pulse Resp B/P Pulse Ox O2 Delivery O2 Flow Rate FiO2 03/21/17 11:28 98.6 120 18 102/59 96 Intake and Output 03/20/17 03/20/17 03/21/17 15:00 23:00 07:00 Intake Total 300 ml 1200 ml Output Total 600 ml Balance 300 ml 600 ml Exam Constitutional: alert, oriented, well developed Respiratory: clear to auscultation, normal air movement Cardiovascular: nl pulses, regular rate and rhythm Musculoskeletal: nl extremities to inspection Extremities: normal pulses 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: nl mental status, nl speech Results Result Diagram: 03/21/17 0730 03/21/17 0728 Results 24 hrs Laboratory Tests Test 03/21/17 07:28 03/21/17 07:30 Sodium Level 141 Potassium Level 3.8 Chloride Level 111 H Carbon Dioxide Level 25 Anion Gap 9 Blood Urea Nitrogen 12 Creatinine 0.84 Glucose Level 91 Calcium Level 9.0 White Blood Count 5.6 # Red Blood Count 3.83 L Hemoglobin 11.1 L Hematocrit 35.6 L Mean Corpuscular Volume 93.0 Mean Corpuscular Hemoglobin 29.0 Mean Corpuscular Hemoglobin Concent 31.2 L Red Cell Distribution Width 15.0 H Platelet Count 466 H Mean Platelet Volume 9.4 Neutrophils % 63.6 Lymphocytes % 12.1 L Monocytes % 10.0 Eosinophils % 8.0 H Basophils % 1.3 Nucleated Red Blood Cells % 0.0 Neutrophils # (Manual) 3.6 Lymphocytes # 0.7 L Monocytes # 0.6 Eosinophils # 0.5 Basophils # 0.1 Nucleated Red Blood Cells # 0.0 Medications Medications Current Medications Sodium Chloride (NS) 1,000 ml @ 75 mls/hr [id number] IV Last administered on 20:39; Admin Dose 75 MLS/HR; Start 03/02/17 at 12:03 Ondansetron HCl (Zofran Inj) 4 mg Q6H PRN IV NAUSEA AND/OR VOMITING Last administered on 03/14/17 14:27; Admin Dose 4 MG; Start 03/02/17 at 12:30 Acetaminophen (Tylenol Tab) 650 mg Q6H PRN PO PAIN LEVEL 1-3 OR FEVER Last administered on 03/09/17 22:29; Admin Dose 650 MG; Start 03/02/17 at 12:30 Morphine Sulfate (morphine) 2 mg Q4H PRN IV PAIN LEVEL 7-10; Start 03/02/17 at 12:30 Enoxaparin Sodium (Lovenox) 30 mg DAILY SC Last administered on 03/21/17 09:24 ; Admin Dose 30 MG; Start 03/03/17 at 09:00 Cyanocobalamin (Vitamin B12 Inj) 1,000 mcg Q28D IM Last administered on 16:13; Admin Dose 1,000 MCG; Start 03/02/17 at 12:30 Folic Acid (Folic Acid) 1 mg DAILY PO Last administered on 03/21/17 09:22; Admin Dose 1 MG; Start 03/03/17 at 09:00 Acetaminophen/ Hydrocodone Bitart ([place] (10/325)) 1 tab Q6H PRN PO PAIN; Start 03/02/17 at 12:30 Hydroxyzine Pamoate (Vistaril) 25 mg QHS PRN PO ITCHING Last administered on 22:35; Admin Dose 25 MG; Start 03/02/17 at 12:30 Midodrine (Proamatine) 2.5 mg BID@ PRN PO SBP <90 Last administered on 18:33; Admin Dose 2.5 MG; Start 03/02/17 at 12:30 Pantoprazole (Protonix Tab) 40 mg DAILY@06 PO Last administered on 03/21/17 05: 05; Admin Dose 40 MG; Start 03/03/17 at 06:00 Potassium Chloride (Klor-Con 20) 20 meq TID PO Last administered on 03/21/17 09 :22; Admin Dose 20 MEQ; Start 03/05/17 at 21:00 Sodium Bicarbonate (Sodium Bicarbonate Tab) 650 mg TID PO Last administered on 03/21/17 09:22; Admin Dose 650 MG; Start 03/07/17 at 21:00 Magnesium Chloride 64 mg 64 mg TID PO Last administered on 03/21/17 09:22; Admin Dose 64 MG; Start 03/09/17 at 13:00 Ceftriaxone Sodium (Rocephin) 50 ml @ 100 mls/hr Q24H IVPB Last administered on 03/21/17 09:24; Admin Dose 100 MLS/HR; Start 03/13/17 at 10:00 Mupirocin 1 applic 1 applic BID TOP Last administered on 03/21/17 09:24; Admin Dose 1 APPLIC; Start 03/14/17 at 13:00; Stop 03/24/17 at 12:59 Vancomycin HCl (Vancocin) 250 ml @ 166.667 mls/hr Q24H IVPB Last administered on 03/21/17 09:24; Admin Dose 166.667 MLS/HR; Start 03/20/17 at 10:00 DEVENDRA GOMES Mar 21, 2017 11:38
--- NOTE | 2017-03-21 20:36 | CONS ---
Date/Time of Note Date/Time of Note DATE: 03/21/17 TIME: 20:36 Assessment/Plan Assessment/Plan Chief Complaint/Hosp Course - fever due to bacteremia, resolving - bacteremia due to E. coli, kleb pneumo and MRSA, resolving - E. coli in urine culture. Pt does not have UTI symptoms. - recurrent lactic acidosis, improved - posterior neck pain for "years." XR showed mild degenerative spondylosis - probable gastroenteritis on admission, improved - s/p sepsis due to bacteremia - h/o bacteremia due to coag negative Staph hemolyticus on 12/26/2016 and Staph epidermidis on 12/27/2016, 12/31/2016 CoNS (not speciated) - h/o urine culture +MRSA, enterococci, lactobacillus on 12/24/2016 - h/o recurrent bacteremia due to MSSA in 10/2015 and 10/2016. Transesophageal echo on 11/12/2016 was negative for valvular vegetation - h/o low-level nonspecific increase in tracer uptake within the mediastinum on WBC tagged scan 12/31/2016 - h/o extensive catheterization - h/o persistent hypotension - h/o infected portacath, s/p removal in 2015-->new port was placed on 11/15/2016 - h/o possible small bowel obstruction, resolved - h/o acute kidney injury, resolved - Hirschsprung's disease, status post colectomy/ileostomy - MRSA colonization recommendations: - continue ceftriaxone (03/13/2017-), we recommend 2 weeks from the first negative blood culture, suggested end date 03/26/2017 - continue IV vancomycin (03/09/2017-) , we recommend 2 weeks from the first negative blood culture, suggested end date 03/26/2017 - continue mupirocin (03/14/2017-) for MRSA decolonization, plan for 10 days Management d/w patient, her mother, MAXIMO Brownlee, and Dr. Tomlinson Problems: Consultation Date/Type/Reason Admit Date/Time Mar 02, 2017 at 05:33 Initial Consult Date 03/10/17 Type of Consultation: Infectious Disease Referring Provider: ROMI ESPINO 24 HR Interval Summary Free Text/Dictation Denies fever, chills, CP, SOB, n/v. DC planning has been initiated. Awaiting arrangement. Exam/Review of Systems Vital Signs Vitals Vital Signs Date Time Temp Pulse Resp B/P Pulse Ox O2 Delivery O2 Flow Rate FiO2 03/21/17 20:18 98.6 92 18 83/50 100 Intake and Output 03/20/17 03/20/17 03/21/17 15:00 23:00 07:00 Intake Total 300 ml 1200 ml Output Total 600 ml Balance 300 ml 600 ml Exam Constitutional: alert, oriented, other (smiling) Head: atraumatic, normocephalic Eyes: nl conjunctiva, nl lids ENMT: nl external ears & nose, nl nasal mucosa & septum Neck: supple Respiratory: diminished breath sounds Cardiovascular: nl pulses, regular rate and rhythm Gastrointestinal: non-tender, other (+colostomy bag), soft Musculoskeletal: nl extremities to inspection Extremities: Normal pulses, No edema 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: PETROLEUM INSPECTOR II-XII intact, nl mental status Skin: nl turgor, other (R chest wall port intact with no e/o infection) Results Result Diagram: 03/21/17 0730 03/21/17 0728 Results 24 hrs Laboratory Tests Test 03/21/17 07:28 03/21/17 07:30 Sodium Level 141 Potassium Level 3.8 Chloride Level 111 H Carbon Dioxide Level 25 Anion Gap 9 Blood Urea Nitrogen 12 Creatinine 0.84 Glucose Level 91 Calcium Level 9.0 White Blood Count 5.6 # Red Blood Count 3.83 L Hemoglobin 11.1 L Hematocrit 35.6 L Mean Corpuscular Volume 93.0 Mean Corpuscular Hemoglobin 29.0 Mean Corpuscular Hemoglobin Concent 31.2 L Red Cell Distribution Width 15.0 H Platelet Count 466 H Mean Platelet Volume 9.4 Neutrophils % 63.6 Lymphocytes % 12.1 L Monocytes % 10.0 Eosinophils % 8.0 H Basophils % 1.3 Nucleated Red Blood Cells % 0.0 Neutrophils # (Manual) 3.6 Lymphocytes # 0.7 L Monocytes # 0.6 Eosinophils # 0.5 Basophils # 0.1 Nucleated Red Blood Cells # 0.0 Medications Medications Current Medications Sodium Chloride (NS) 1,000 ml @ 75 mls/hr [id number] IV Last administered on t 12:15; Admin Dose 75 MLS/HR; Start 03/02/17 at 12:03 Ondansetron HCl (Zofran Inj) 4 mg Q6H PRN IV NAUSEA AND/OR VOMITING Last administered on 03/14/17 14:27; Admin Dose 4 MG; Start 03/02/17 at 12:30 Acetaminophen (Tylenol Tab) 650 mg Q6H PRN PO PAIN LEVEL 1-3 OR FEVER Last administered on 03/09/17 22:29; Admin Dose 650 MG; Start 03/02/17 at 12:30 Morphine Sulfate (morphine) 2 mg Q4H PRN IV PAIN LEVEL 7-10; Start 03/02/17 at 12:30 Enoxaparin Sodium (Lovenox) 30 mg DAILY SC Last administered on 03/21/17 09:24 ; Admin Dose 30 MG; Start 03/03/17 at 09:00 Cyanocobalamin (Vitamin B12 Inj) 1,000 mcg Q28D IM Last administered on 16:13; Admin Dose 1,000 MCG; Start 03/02/17 at 12:30 Folic Acid (Folic Acid) 1 mg DAILY PO Last administered on 03/21/17 09:22; Admin Dose 1 MG; Start 03/03/17 at 09:00 Acetaminophen/ Hydrocodone Bitart ([place] (10/325)) 1 tab Q6H PRN PO PAIN; Start 03/02/17 at 12:30 Hydroxyzine Pamoate (Vistaril) 25 mg QHS PRN PO ITCHING Last administered on 22:35; Admin Dose 25 MG; Start 03/02/17 at 12:30 Midodrine (Proamatine) 2.5 mg BID@ PRN PO SBP <90 Last administered on 18:33; Admin Dose 2.5 MG; Start 03/02/17 at 12:30 Pantoprazole (Protonix Tab) 40 mg DAILY@06 PO Last administered on 03/21/17 05: 05; Admin Dose 40 MG; Start 03/03/17 at 06:00 Potassium Chloride (Klor-Con 20) 20 meq TID PO Last administered on 03/21/17 12 :14; Admin Dose 20 MEQ; Start 03/05/17 at 21:00 Sodium Bicarbonate (Sodium Bicarbonate Tab) 650 mg TID PO Last administered on 03/21/17 12:15; Admin Dose 650 MG; Start 03/07/17 at 21:00 Magnesium Chloride 64 mg 64 mg TID PO Last administered on 03/21/17 12:14; Admin Dose 64 MG; Start 03/09/17 at 13:00 Ceftriaxone Sodium (Rocephin) 50 ml @ 100 mls/hr Q24H IVPB Last administered on 03/21/17 09:24; Admin Dose 100 MLS/HR; Start 03/13/17 at 10:00 Mupirocin 1 applic 1 applic BID TOP Last administered on 03/21/17 09:24; Admin Dose 1 APPLIC; Start 03/14/17 at 13:00; Stop 03/24/17 at 12:59 Vancomycin HCl (Vancocin) 250 ml @ 166.667 mls/hr Q24H IVPB Last administered on 03/21/17 09:24; Admin Dose 166.667 MLS/HR; Start 03/20/17 at 10:00 RINKU BAILON NP Mar 21, 2017 20:36
--- NOTE | 2017-03-21 21:39 | CONS ---
Date/Time of Note Date/Time of Note DATE: 03/21/17 TIME: 21:38 Assessment/Plan Assessment/Plan Additional Assessment/Plan 1. acute Kidney injury due to severe prerenal azotemia 2. Acute Hyperkalemia- now resolved 3. Nausea,vomiting 4. Hypomagnesemia 5. Metabolic acidosis 6. H/o Hirschsprung disease s/p colostomy 7. Hypomagnesemia severe plan: Electrolytes and Cr stable today continue KCl 20mEQ TID , conitnue Magnesium chloride 64- TID Midorine 2.5mg BID Prn hypotension will follow up Consultation Date/Type/Reason Admit Date/Time Mar 02, 2017 at 05:33 Initial Consult Date 03/02/17 Type of Consultation: NEPHROLOGY Referring Provider: ROMI ESPINO 24 HR Interval Summary Free Text/Dictation no acute events BP stable, Cr and electrolytes normal Exam/Review of Systems Vital Signs Vitals Vital Signs Date Time Temp Pulse Resp B/P Pulse Ox O2 Delivery O2 Flow Rate FiO2 03/21/17 20:42 87 03/21/17 20:18 98.6 18 83/50 100 Intake and Output 03/20/17 03/20/17 03/21/17 15:00 23:00 07:00 Intake Total 300 ml 1200 ml Output Total 600 ml Balance 300 ml 600 ml Exam Constitutional: alert, oriented Respiratory: clear to auscultation, intercostal retraction, normal air movement Cardiovascular: nl pulses, regular rate and rhythm Gastrointestinal: non-tender, soft, + colostomy Musculoskeletal: nl extremities to inspection Extremities: normal pulses 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: SCHOOL HEALTH ASSISTANT II-XII intact, nl mental status, nl speech, nl strength Results Result Diagram: 03/21/1730 03/21/17 0728 Results 24 hrs Laboratory Tests Test 03/21/17 07:28 03/21/17 07:30 Sodium Level 141 Potassium Level 3.8 Chloride Level 111 H Carbon Dioxide Level 25 Anion Gap 9 Blood Urea Nitrogen 12 Creatinine 0.84 Glucose Level 91 Calcium Level 9.0 White Blood Count 5.6 # Red Blood Count 3.83 L Hemoglobin 11.1 L Hematocrit 35.6 L Mean Corpuscular Volume 93.0 Mean Corpuscular Hemoglobin 29.0 Mean Corpuscular Hemoglobin Concent 31.2 L Red Cell Distribution Width 15.0 H Platelet Count 466 H Mean Platelet Volume 9.4 Neutrophils % 63.6 Lymphocytes % 12.1 L Monocytes % 10.0 Eosinophils % 8.0 H Basophils % 1.3 Nucleated Red Blood Cells % 0.0 Neutrophils # (Manual) 3.6 Lymphocytes # 0.7 L Monocytes # 0.6 Eosinophils # 0.5 Basophils # 0.1 Nucleated Red Blood Cells # 0.0 Medications Medications Current Medications Sodium Chloride (NS) 1,000 ml @ 75 mls/hr [id number] IV Last administered on 12:15; Admin Dose 75 MLS/HR; Start 03/02/17 at 12:03 Ondansetron HCl (Zofran Inj) 4 mg Q6H PRN IV NAUSEA AND/OR VOMITING Last administered on 03/14/17 14:27; Admin Dose 4 MG; Start 03/02/17 at 12:30 Acetaminophen (Tylenol Tab) 650 mg Q6H PRN PO PAIN LEVEL 1-3 OR FEVER Last administered on 03/09/17 22:29; Admin Dose 650 MG; Start 03/02/17 at 12:30 Morphine Sulfate (morphine) 2 mg Q4H PRN IV PAIN LEVEL 7-10; Start 03/02/17 at 12:30 Enoxaparin Sodium (Lovenox) 30 mg DAILY SC Last administered on 03/21/17 09:24 ; Admin Dose 30 MG; Start 03/03/17 at 09:00 Cyanocobalamin (Vitamin B12 Inj) 1,000 mcg Q28D IM Last administered on 16:13; Admin Dose 1,000 MCG; Start 03/02/17 at 12:30 Folic Acid (Folic Acid) 1 mg DAILY PO Last administered on 03/21/17 09:22; Admin Dose 1 MG; Start 03/03/17 at 09:00 Acetaminophen/ Hydrocodone Bitart ([place] (10/325)) 1 tab Q6H PRN PO PAIN; Start 03/02/17 at 12:30 Hydroxyzine Pamoate (Vistaril) 25 mg QHS PRN PO ITCHING Last administered on 22:35; Admin Dose 25 MG; Start 03/02/17 at 12:30 Midodrine (Proamatine) 2.5 mg BID@ PRN PO SBP <90 Last administered on 18:33; Admin Dose 2.5 MG; Start 03/02/17 at 12:30 Pantoprazole (Protonix Tab) 40 mg DAILY@06 PO Last administered on 03/21/17 05: 05; Admin Dose 40 MG; Start 03/03/17 at 06:00 Potassium Chloride (Klor-Con 20) 20 meq TID PO Last administered on 03/21/17 20 :37; Admin Dose 20 MEQ; Start 03/05/17 at 21:00 Sodium Bicarbonate (Sodium Bicarbonate Tab) 650 mg TID PO Last administered on 03/21/17 20:37; Admin Dose 650 MG; Start 03/07/17 at 21:00 Magnesium Chloride 64 mg 64 mg TID PO Last administered on 03/21/17 20:37; Admin Dose 64 MG; Start 03/09/17 at 13:00 Ceftriaxone Sodium (Rocephin) 50 ml @ 100 mls/hr Q24H IVPB Last administered on 03/21/17 09:24; Admin Dose 100 MLS/HR; Start 03/13/17 at 10:00 Mupirocin 1 applic 1 applic BID TOP Last administered on 03/21/17 20:38; Admin Dose 1 APPLIC; Start 03/14/17 at 13:00; Stop 03/24/17 at 12:59 Vancomycin HCl (Vancocin) 250 ml @ 166.667 mls/hr Q24H IVPB Last administered on 03/21/17 09:24; Admin Dose 166.667 MLS/HR; Start 03/20/17 at 10:00 ROHAN VELÁZQUEZ MD Mar 21, 2017 21:39
[2017-03-22] VITALS (12 sets, daily range): BP systolic 88–135; BP diastolic 52–77; PULSE 68–114; RESP 18–20
[2017-03-22] MEDS: PANTOPRAZOLE (EC) 40 MG TAB PO SCH (05:18)
[2017-03-22] MEDS: FOLIC ACID 1 MG TAB PO SCH (08:10)
[2017-03-22] MEDS: MAGNESIUM CHLORIDE (SR) 64 MG TAB PO SCH ×3 (08:10→20:48)
[2017-03-22] MEDS: POTASSIUM CHLORIDE (SR) 20 MEQ TAB PO SCH ×3 (08:10→20:48)
[2017-03-22] MEDS: NA BICARBONATE 650 MG TAB PO SCH ×3 (08:10→20:48)
[2017-03-22] MEDS: ENOXAPARIN 30 MG/0.3 ML SYG SC SCH (08:13)
[2017-03-22] MEDS: MUPIROCIN 2% 15 GM CR TOP SCH ×2 (08:16→20:48)
[2017-03-22] MEDS: CEFTRIAXONE 2 GM/50 ML (PMX) 50 ML IVPB SCH (08:43)
[2017-03-22] MEDS: SOD CHLORIDE 0.9% 1,000 ML IV SCH ×2 (08:43→20:49)
[2017-03-22 08:57] LABS: BASOPHIL # 0.1 10^3/ul (0.0-0.1); BASOPHILS % 1.2 % (0.0-2.0); EOSINOPHILS # 0.5 10^3/ul (0.0-0.5); EOSINOPHILS % 7.9 % (0.0-7.0); HEMATOCRIT 39.4 % (37.0-47.0); HEMOGLOBIN 12.5 g/dl (12.0-16.0); LYMPHOCYTES # 0.9 10^3/ul (0.8-2.9); LYMPHOCYTES % 12.9 % (15.0-51.0); MEAN CORPUSCULAR HEMOGLOBIN 29.9 pg (29.0-33.0); MEAN CORPUSCULAR HGB CONC 31.7 g/dl (32.0-37.0); MEAN CORPUSCULAR VOLUME 94.3 fl (82.0-101.0); MEAN PLATELET VOLUME 9.3 fl (7.4-10.4); MONOCYTE # 0.6 10^3/ul (0.3-0.9); MONOCYTES % 8.2 % (0.0-11.0); NEUTROPHILS % 65.9 % (39.0-77.0); PLATELET COUNT 506 10^3/UL (140-415); RED BLOOD COUNT 4.18 10^6/ul (4.20-5.40); RED CELL DISTRIBUTION WIDTH 14.6 % (11.5-14.5); WHITE BLOOD COUNT 6.7 10^3/ul (4.8-10.8)
[2017-03-22 09:22] LABS: CALCIUM 9.6 mg/dl (8.4-10.2); CREATININE 0.9 mg/dl (0.44-1.00); POTASSIUM 4.2 mmol/L (3.5-5.1)
[2017-03-22] MEDS: VANCOMYCIN 1 GM (PMX) 250 ML IVPB SCH (10:19)
[2017-03-22] MEDS: MIDODRINE 2.5 MG TAB PO PRN (12:39)
--- NOTE | 2017-03-22 14:25 | CONS ---
Date/Time of Note Date/Time of Note DATE: 03/22/17 TIME: 14:24 Assessment/Plan Assessment/Plan Additional Assessment/Plan 1. acute Kidney injury due to severe prerenal azotemia 2. Acute Hyperkalemia- now resolved 3. Nausea,vomiting 4. Hypomagnesemia 5. Metabolic acidosis 6. H/o Hirschsprung disease s/p colostomy 7. Hypomagnesemia severe plan: Electrolytes and Cr stable today continue KCl 20mEQ TID , conitnue Magnesium chloride 64- TID Midorine 2.5mg BID Prn hypotension will follow up Consultation Date/Type/Reason Admit Date/Time Mar 02, 2017 at 05:33 Initial Consult Date 03/02/17 Type of Consultation: NEPHROLOGY Referring Provider: ROMI ESPINO 24 HR Interval Summary Free Text/Dictation doing ok, no abd pain, Cr and electrolytes stable Exam/Review of Systems Vital Signs Vitals Vital Signs Date Time Temp Pulse Resp B/P Pulse Ox O2 Delivery O2 Flow Rate FiO2 03/22/17 12:11 99 03/22/17 12:05 97.5 20 88/52 99 Intake and Output 03/21/17 03/21/17 03/22/17 15:00 23:00 07:00 Intake Total 2050 ml 1575 ml 800 ml Output Total 800 ml Balance 2050 ml 775 ml 800 ml Exam Constitutional: alert, oriented Respiratory: clear to auscultation, intercostal retraction, normal air movement Cardiovascular: nl pulses, regular rate and rhythm Gastrointestinal: non-tender, soft, + colostomy Musculoskeletal: nl extremities to inspection Extremities: normal pulses 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: FIRST BEATER II-XII intact, nl mental status, nl speech, nl strength Results Result Diagram: 03/22/1722 03/22/17 0822 Results 24 hrs Laboratory Tests Test 03/22/17 08:22 White Blood Count 6.7 Red Blood Count 4.18 L Hemoglobin 12.5 Hematocrit 39.4 Mean Corpuscular Volume 94.3 Mean Corpuscular Hemoglobin 29.9 Mean Corpuscular Hemoglobin Concent 31.7 L Red Cell Distribution Width 14.6 H Platelet Count 506 H Mean Platelet Volume 9.3 Neutrophils % 65.9 Lymphocytes % 12.9 L Monocytes % 8.2 Eosinophils % 7.9 H Basophils % 1.2 Nucleated Red Blood Cells % 0.0 Neutrophils # (Manual) 4.4 Lymphocytes # 0.9 Monocytes # 0.6 Eosinophils # 0.5 Basophils # 0.1 Nucleated Red Blood Cells # 0.0 Sodium Level 144 Potassium Level 4.2 Chloride Level 110 Carbon Dioxide Level 25 Anion Gap 13 Blood Urea Nitrogen 15 Creatinine 0.90 Glucose Level 82 Calcium Level 9.6 Medications Medications Current Medications Sodium Chloride (NS) 1,000 ml @ 75 mls/hr [id number] IV Last administered on 08:43; Admin Dose 75 MLS/HR; Start 03/02/17 at 12:03 Ondansetron HCl (Zofran Inj) 4 mg Q6H PRN IV NAUSEA AND/OR VOMITING Last administered on 03/14/17 14:27; Admin Dose 4 MG; Start 03/02/17 at 12:30 Acetaminophen (Tylenol Tab) 650 mg Q6H PRN PO PAIN LEVEL 1-3 OR FEVER Last administered on 03/09/17 22:29; Admin Dose 650 MG; Start 03/02/17 at 12:30 Morphine Sulfate (morphine) 2 mg Q4H PRN IV PAIN LEVEL 7-10; Start 03/02/17 at 12:30 Enoxaparin Sodium (Lovenox) 30 mg DAILY SC Last administered on 03/22/17 08:13 ; Admin Dose 30 MG; Start 03/03/17 at 09:00 Cyanocobalamin (Vitamin B12 Inj) 1,000 mcg Q28D IM Last administered on 16:13; Admin Dose 1,000 MCG; Start 03/02/17 at 12:30 Folic Acid (Folic Acid) 1 mg DAILY PO Last administered on 03/22/17 08:10; Admin Dose 1 MG; Start 03/03/17 at 09:00 Acetaminophen/ Hydrocodone Bitart ([place] (10/325)) 1 tab Q6H PRN PO PAIN; Start 03/02/17 at 12:30 Hydroxyzine Pamoate (Vistaril) 25 mg QHS PRN PO ITCHING Last administered on 22:35; Admin Dose 25 MG; Start 03/02/17 at 12:30 Midodrine (Proamatine) 2.5 mg BID@ PRN PO SBP <90 Last administered on 03/22 12:39; Admin Dose 2.5 MG; Start 03/02/17 at 12:30 Pantoprazole (Protonix Tab) 40 mg DAILY@06 PO Last administered on 03/22/17 05: 18; Admin Dose 40 MG; Start 03/03/17 at 06:00 Potassium Chloride (Klor-Con 20) 20 meq TID PO Last administered on 03/22/17 12 :39; Admin Dose 20 MEQ; Start 03/05/17 at 21:00 Sodium Bicarbonate (Sodium Bicarbonate Tab) 650 mg TID PO Last administered on 03/22/17 12:39; Admin Dose 650 MG; Start 03/07/17 at 21:00 Magnesium Chloride 64 mg 64 mg TID PO Last administered on 03/22/17 12:39; Admin Dose 64 MG; Start 03/09/17 at 13:00 Ceftriaxone Sodium (Rocephin) 50 ml @ 100 mls/hr Q24H IVPB Last administered on 03/22/17 08:43; Admin Dose 100 MLS/HR; Start 03/13/17 at 10:00 Mupirocin 1 applic 1 applic BID TOP Last administered on 03/22/17 08:16; Admin Dose 1 APPLIC; Start 03/14/17 at 13:00; Stop 03/24/17 at 12:59 Vancomycin HCl (Vancocin) 250 ml @ 166.667 mls/hr Q24H IVPB Last administered on 03/22/17 10:19; Admin Dose 166.667 MLS/HR; Start 03/20/17 at 10:00 Miscellaneous Information (*Rx Drug Level Order Reminder*) VANCOMYCIN TROUGH AT 0900 ONCE ONCE XX ; Start 03/23/17 at 09:00; Stop 03/23/17 at 09:01 ROHAN VELÁZQUEZ MD Mar 22, 2017 14:25
--- NOTE | 2017-03-22 20:27 | PN ---
Date/Time of Note Date/Time of Note DATE: 03/22/17 TIME: 20:26 Assessment/Plan VTE Prophylaxis VTE Prophylaxis Intervention: other Lines/Catheters IV [facility]ter Type (from [facility] Port A Cath Urinary Cath still in place: No Assessment/Plan Assessment/Plan -Sepsis was positive blood cultures. Dr. Mcelroy is following an infection disease consultation. Continue broad-spectrum antibiotics. - Coli UTI. --Electrolyte imbalances - Severe hypokalemia- resolved - hypomagnesium- 1.6 as of 03/17 - resolved -Nausea and vomiting on admission -Acute kidney injury secondary to dehydration, Dr. Spain is following in nephrology consultation. Continue IV fluids -History of Hirschsprung disease -Ileostomy -Right chest Port-A-Cath Plan for Home Health for IV antibiotics- pending. Dr Hwang Subjective 24 Hr Interval Summary Respiratory: no complaints Cardiovascular: no complaints Gastrointestinal: no complaints Genitourinary: no complaints Musculoskeletal: no complaints Skin: no complaints Neurologic: no complaints Exam/Review of Systems Vital Signs Vitals Vital Signs Date Time Temp Pulse Resp B/P Pulse Ox O2 Delivery O2 Flow Rate FiO2 03/22/17 20:09 101 03/22/17 16:17 98.1 18 135/77 100 Intake and Output 03/21/17 03/21/17 03/22/17 15:00 23:00 07:00 Intake Total 2050 ml 1575 ml 800 ml Output Total 800 ml Balance 2050 ml 775 ml 800 ml Exam Constitutional: alert, oriented Respiratory: clear to auscultation Cardiovascular: nl pulses, other (ST-106), regular rate and rhythm Musculoskeletal: nl extremities to inspection Extremities: normal pulses 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: nl mental status, nl speech Results Result Diagram: 03/22/1722 03/22/17 0822 Results 24 hrs Laboratory Tests Test 03/22/17 08:22 White Blood Count 6.7 Red Blood Count 4.18 L Hemoglobin 12.5 Hematocrit 39.4 Mean Corpuscular Volume 94.3 Mean Corpuscular Hemoglobin 29.9 Mean Corpuscular Hemoglobin Concent 31.7 L Red Cell Distribution Width 14.6 H Platelet Count 506 H Mean Platelet Volume 9.3 Neutrophils % 65.9 Lymphocytes % 12.9 L Monocytes % 8.2 Eosinophils % 7.9 H Basophils % 1.2 Nucleated Red Blood Cells % 0.0 Neutrophils # (Manual) 4.4 Lymphocytes # 0.9 Monocytes # 0.6 Eosinophils # 0.5 Basophils # 0.1 Nucleated Red Blood Cells # 0.0 Sodium Level 144 Potassium Level 4.2 Chloride Level 110 Carbon Dioxide Level 25 Anion Gap 13 Blood Urea Nitrogen 15 Creatinine 0.90 Glucose Level 82 Calcium Level 9.6 Medications Medications Current Medications Sodium Chloride (NS) 1,000 ml @ 75 mls/hr [id number] IV Last administered on 08:43; Admin Dose 75 MLS/HR; Start 03/02/17 at 12:03 Ondansetron HCl (Zofran Inj) 4 mg Q6H PRN IV NAUSEA AND/OR VOMITING Last administered on 03/14/17 14:27; Admin Dose 4 MG; Start 03/02/17 at 12:30 Acetaminophen (Tylenol Tab) 650 mg Q6H PRN PO PAIN LEVEL 1-3 OR FEVER Last administered on 03/09/17 22:29; Admin Dose 650 MG; Start 03/02/17 at 12:30 Morphine Sulfate (morphine) 2 mg Q4H PRN IV PAIN LEVEL 7-10; Start 03/02/17 at 12:30 Enoxaparin Sodium (Lovenox) 30 mg DAILY SC Last administered on 03/22/17 08:13 ; Admin Dose 30 MG; Start 03/03/17 at 09:00 Cyanocobalamin (Vitamin B12 Inj) 1,000 mcg Q28D IM Last administered on 16:13; Admin Dose 1,000 MCG; Start 03/02/17 at 12:30 Folic Acid (Folic Acid) 1 mg DAILY PO Last administered on 03/22/17 08:10; Admin Dose 1 MG; Start 03/03/17 at 09:00 Acetaminophen/ Hydrocodone Bitart ([place] (10/325)) 1 tab Q6H PRN PO PAIN; Start 03/02/17 at 12:30 Hydroxyzine Pamoate (Vistaril) 25 mg QHS PRN PO ITCHING Last administered on 22:35; Admin Dose 25 MG; Start 03/02/17 at 12:30 Midodrine (Proamatine) 2.5 mg BID@ PRN PO SBP <90 Last administered on 03/22 12:39; Admin Dose 2.5 MG; Start 03/02/17 at 12:30 Pantoprazole (Protonix Tab) 40 mg DAILY@06 PO Last administered on 03/22/17 05: 18; Admin Dose 40 MG; Start 03/03/17 at 06:00 Potassium Chloride (Klor-Con 20) 20 meq TID PO Last administered on 03/22/17 12 :39; Admin Dose 20 MEQ; Start 03/05/17 at 21:00 Sodium Bicarbonate (Sodium Bicarbonate Tab) 650 mg TID PO Last administered on 03/22/17 12:39; Admin Dose 650 MG; Start 03/07/17 at 21:00 Magnesium Chloride 64 mg 64 mg TID PO Last administered on 03/22/17 12:39; Admin Dose 64 MG; Start 03/09/17 at 13:00 Ceftriaxone Sodium (Rocephin) 50 ml @ 100 mls/hr Q24H IVPB Last administered on 03/22/17 08:43; Admin Dose 100 MLS/HR; Start 03/13/17 at 10:00 Mupirocin 1 applic 1 applic BID TOP Last administered on 03/22/17 08:16; Admin Dose 1 APPLIC; Start 03/14/17 at 13:00; Stop 03/24/17 at 12:59 Vancomycin HCl (Vancocin) 250 ml @ 166.667 mls/hr Q24H IVPB Last administered on 03/22/17 10:19; Admin Dose 166.667 MLS/HR; Start 03/20/17 at 10:00 Miscellaneous Information (*Rx Drug Level Order Reminder*) VANCOMYCIN TROUGH AT 0900 ONCE ONCE XX ; Start 03/23/17 at 09:00; Stop 03/23/17 at 09:01 DEVENDRA GOMES Mar 22, 2017 20:27
[2017-03-23] VITALS (10 sets, daily range): BP systolic 93–120; BP diastolic 52–71; PULSE 91–114; RESP 18–20
[2017-03-23] MEDS: SOD CHLORIDE 0.9% 1,000 ML IV SCH ×2 (01:22→10:37)
[2017-03-23] MEDS: PANTOPRAZOLE (EC) 40 MG TAB PO SCH (05:15)
[2017-03-23 08:15] LABS: CREATININE 0.88 mg/dl (0.44-1.00)
[2017-03-23] MEDS: FOLIC ACID 1 MG TAB PO SCH (09:21)
[2017-03-23] MEDS: POTASSIUM CHLORIDE (SR) 20 MEQ TAB PO SCH ×2 (09:21→14:09)
[2017-03-23] MEDS: NA BICARBONATE 650 MG TAB PO SCH ×2 (09:22→14:08)
[2017-03-23] MEDS: MAGNESIUM CHLORIDE (SR) 64 MG TAB PO SCH ×2 (09:22→14:08)
[2017-03-23] MEDS: CEFTRIAXONE 2 GM/50 ML (PMX) 50 ML IVPB SCH (09:23)
[2017-03-23] MEDS: ENOXAPARIN 30 MG/0.3 ML SYG SC SCH (09:26)
[2017-03-23] MEDS: MUPIROCIN 2% 15 GM CR TOP SCH (09:28)
--- NOTE | 2017-03-23 10:53 | PN ---
Date/Time of Note Date/Time of Note DATE: 03/23/17 TIME: 10:52 Assessment/Plan VTE Prophylaxis VTE Prophylaxis Intervention: other Lines/Catheters IV [facility] Type (from [facility] Port A Cath Urinary Cath still in place: No Assessment/Plan Assessment/Plan -Sepsis was positive blood cultures. Dr. Mcelroy is following an infection disease consultation. Continue broad-spectrum antibiotics. - Coli UTI. --Electrolyte imbalances-resolved -Nausea and vomiting on admission -Acute kidney injury secondary to dehydration, Dr. Spain is following in nephrology consultation. Continue IV fluids -History of Hirschsprung disease -Ileostomy -Right chest Port-A-Cath Plan for Home Health for IV antibiotics- pending. Wagner Hwang Exam/Review of Systems Vital Signs Vitals Vital Signs Date Time Temp Pulse Resp B/P Pulse Ox O2 Delivery O2 Flow Rate FiO2 03/23/17 08:30 97.5 91 18 94/52 99 Intake and Output 03/22/17 03/22/17 03/23/17 15:00 23:00 07:00 Intake Total 2675 ml 1900 ml Output Total 4 ml Balance 2671 ml 1900 ml Exam Constitutional: alert, well developed Respiratory: clear to auscultation, normal air movement Cardiovascular: nl pulses, regular rate and rhythm Gastrointestinal: non-tender, soft Musculoskeletal: nl extremities to inspection Extremities: normal pulses 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: nl mental status, nl speech Results Result Diagram: 03/22/17 0822 03/23/17 0738 Results 24 hrs Laboratory Tests Test 03/23/17 07:38 03/23/17 09:00 Blood Urea Nitrogen 18 Creatinine 0.88 Vancomycin Level Trough 11.3 Medications Medications Current Medications Sodium Chloride (NS) 1,000 ml @ 75 mls/hr [id number] IV Last administered on 03/23 01:22; Admin Dose 75 MLS/HR; Start 03/02/17 at 12:03 Ondansetron HCl (Zofran Inj) 4 mg Q6H PRN IV NAUSEA AND/OR VOMITING Last administered on 03/14/17 14:27; Admin Dose 4 MG; Start 03/02/17 at 12:30 Acetaminophen (Tylenol Tab) 650 mg Q6H PRN PO PAIN LEVEL 1-3 OR FEVER Last administered on 03/09/17 22:29; Admin Dose 650 MG; Start 03/02/17 at 12:30 Morphine Sulfate (morphine) 2 mg Q4H PRN IV PAIN LEVEL 7-10; Start 03/02/17 at 12:30 Enoxaparin Sodium (Lovenox) 30 mg DAILY SC Last administered on 03/23/17 09:26 ; Admin Dose 30 MG; Start 03/03/17 at 09:00 Cyanocobalamin (Vitamin B12 Inj) 1,000 mcg Q28D IM Last administered on 16:13; Admin Dose 1,000 MCG; Start 03/02/17 at 12:30 Folic Acid (Folic Acid) 1 mg DAILY PO Last administered on 03/23/17 09:21; Admin Dose 1 MG; Start 03/03/17 at 09:00 Acetaminophen/ Hydrocodone Bitart ([place] (10/325)) 1 tab Q6H PRN PO PAIN; Start 03/02/17 at 12:30 Hydroxyzine Pamoate (Vistaril) 25 mg QHS PRN PO ITCHING Last administered on 22:35; Admin Dose 25 MG; Start 03/02/17 at 12:30 Midodrine (Proamatine) 2.5 mg BID@17 PRN PO SBP <90 Last administered on 03/22 12:39; Admin Dose 2.5 MG; Start 03/02/17 at 12:30 Pantoprazole (Protonix Tab) 40 mg DAILY@06 PO Last administered on 03/23/17 05 :15; Admin Dose 40 MG; Start 03/03/17 at 06:00 Potassium Chloride (Klor-Con 20) 20 meq TID PO Last administered on 03/23/17 09:21; Admin Dose 20 MEQ; Start 03/05/17 at 21:00 Sodium Bicarbonate (Sodium Bicarbonate Tab) 650 mg TID PO Last administered on 03/23/17 09:22; Admin Dose 650 MG; Start 03/07/17 at 21:00 Magnesium Chloride 64 mg 64 mg TID PO Last administered on 03/23/17 09:22; Admin Dose 64 MG; Start 03/09/17 at 13:00 Ceftriaxone Sodium (Rocephin) 50 ml @ 100 mls/hr Q24H IVPB Last administered on 03/23/17 09:23; Admin Dose 100 MLS/HR; Start 03/13/17 at 10:00 Mupirocin 1 applic 1 applic BID TOP Last administered on 03/23/17 09:28; Admin Dose 1 APPLIC; Start 03/14/17 at 13:00; Stop 03/24/17 at 12:59 Vancomycin HCl (Vancocin) 250 ml @ 166.667 mls/hr Q24H IVPB Last administered on 03/22/17 10:19; Admin Dose 166.667 MLS/HR; Start 03/20/17 at 10:00 DEVENDRA GOMES Mar 23, 2017 10:53
[2017-03-23] MEDS: VANCOMYCIN 1 GM (PMX) 250 ML IVPB SCH (11:01)
--- NOTE | 2017-03-23 13:39 | PDOCDIS ---
Discharge Instructions CONDITION Patient Condition: Stable HOME CARE INSTRUCTIONS: Diet Instructions: RegularSpecial Diet: REGULAR ACTIVITY: Activity Restrictions: Slowly Increase Activity Rest between Activity Avoid heavy lifting Do not Drive Do not operate Machinery Do not operate Power Tool Avoid Heavy Housework Bathing Restrictions: Sponge Bath FOLLOW UP/APPOINTMENTS Follow-up Plan FU with Primary MD x 1 week FU with Infectious disease as recommended Call 911 or go to the nearest hospital if symptoms get worse. Patient and her mother verbalized understanding dc instructions. Wagner Paez/staff. DEVENDRA GOMES Mar 23, 2017 13:39
[2017-03-23] MEDS ORDERED: POTA20TA15 PO (13:42)
--- NOTE | 2017-03-23 13:48 | DS ---
Date/Time of Note Date/Time of Note DATE: 03/23/17 TIME: 13:47 Discharge Summary Admission/Discharge Info Admit Date/Time Mar 02, 2017 at 05:33 Discharge Date/Time Patient Condition: Stable Hx of Present Illness Patient with Hirshsprung's disease comes in with abdominal pain, nausea/vomiting , and dehydration. Patient has been admitted multiple times in the past for the same. Hospital Course - fever due to bacteremia, resolving - bacteremia due to E. coli, kleb pneumo and MRSA, resolving - E. coli in urine culture. Pt does not have UTI symptoms. - recurrent lactic acidosis, improved - posterior neck pain for "years." XR showed mild degenerative spondylosis - probable gastroenteritis on admission, improved - s/p sepsis due to bacteremia - h/o bacteremia due to coag negative Staph hemolyticus on 12/26/2016 and Staph epidermidis on 12/27/2016, 12/31/2016 CoNS (not speciated) - h/o urine culture +MRSA, enterococci, lactobacillus on 12/24/2016 - h/o recurrent bacteremia due to MSSA in 10/2015 and 10/2016. Transesophageal echo on 11/12/2016 was negative for valvular vegetation - h/o low-level nonspecific increase in tracer uptake within the mediastinum on WBC tagged scan 12/31/2016 - h/o extensive catheterization - h/o persistent hypotension - h/o infected portacath, s/p removal in 2015-->new port was placed on 11/15/2016 - h/o possible small bowel obstruction, resolved - h/o acute kidney injury, resolved - Hirschsprung's disease, status post colectomy/ileostomy - MRSA colonization recommendations: - continue ceftriaxone (03/13/2017-), we recommend 2 weeks from the first negative blood culture, suggested end date 03/26/2017 - continue IV vancomycin (03/09/2017-) , we recommend 2 weeks from the first negative blood culture, suggested end date 03/26/2017 - continue mupirocin (03/14/2017-) for MRSA decolonization, plan for 10 days Management d/w patient, her mother, MAXIMO Brownlee, and Dr. Tomlinson Home Meds Active Scripts Potassium Chloride* (K-Dur*) 20 Meq Tab.prt.sr, 20 MEQ PO TID for 30 Days Prov:DEVENDRA GOMES 03/23/17 Hydrocodone/Acetaminophen ([place] 10-325 Tablet) 1 Each Tablet, 1 TAB PO Q6H Y for PAIN, #7 TAB Prov:BOLIVAR UNGER MD 02/16/17 [Vancomycin Iv Per Pharmacy] 1 EA EACH No Conflict Check, 0 EA XX .PER PROTOCOL for 3 Days Prov:ROMI ESPINO 01/13/17 Pantoprazole* (Pantoprazole*) 40 Mg Tablet.dr, 40 MG PO DAILY@06 for 30 Days Prov:ROMI ESPINO 01/13/17 Sodium Bicarbonate (Na Bicarbonate) 650 Mg Tab, 650 MG PO BID for 14 Days, TAB Prov:ROMI ESPINO 01/13/17 Magnesium Chloride* (Mag 64*) 64 Mg Tabsr, 64 MG PO BID for 14 Days, TAB Prov:ROMI ESPINO 01/13/17 Midodrine HCl (Midodrine HCl) 2.5 Mg Tablet, 2.5 MG PO BID@09,17 Y for SBP <90 for 30 Days, TAB Prov:DEVENDRA GOMES 11/16/16 Reported Medications Acetaminophen* (Acetaminophen*) 500 MG Extra Strength Tablet, 500 MG PO Q4H Y for PAIN AND OR ELEVATED TEMP, TAB 11/21/16 Multivits-Min/Iron/FA/Lutein (Centrum Silver Women Tablet) 1 Each Tablet, 1 EACH PO DAILY, TAB 11/21/16 Hydroxyzine Pamoate* (Vistaril*) 25 Mg Capsule, 25 MG PO QHS Y for ITCHING, CAP 11/02/15 Albuterol Sulfate* (Proair HFA*) 8.5 Gm Hfa.aer.ad, 2 PUFF INH Q4H Y for WHEEZING AND SOB, #1 INHALER 11/02/15 Folic Acid* (Folic Acid*) 1 Mg Tablet, 1 MG PO DAILY, TAB 11/02/15 Cyanocobalamin* (Vitamin B-12* Inj) 1,000 Mcg/Ml Vial, 1000 MCG IM Q28D, VIAL 11/02/15 Primary Care Provider Noel Paez MD Time spent on discharge: > 30 minutes Pending Labs Laboratory Tests Test 03/23/17 07:38 03/23/17 09:00 Blood Urea Nitrogen 18mg/dl (7-20) Creatinine 0.88mg/dl (0.44-1.00) Vancomycin Level Trough 11.3ug/ml (10.0-20.0) DEVENDRA GOMES Mar 23, 2017 13:48
--- NOTE | 2017-03-23 14:18 | CONS ---
Date/Time of Note Date/Time of Note DATE: 03/23/17 TIME: 14:17 Assessment/Plan Assessment/Plan Additional Assessment/Plan 1. acute Kidney injury due to severe prerenal azotemia 2. Acute Hyperkalemia- now resolved 3. Nausea,vomiting 4. Hypomagnesemia 5. Metabolic acidosis 6. H/o Hirschsprung disease s/p colostomy 7. Hypomagnesemia severe plan: Electrolytes and Cr stable today continue KCl 20mEQ TID , conitnue Magnesium chloride 64- TID [place] 2.5mg BID Prn hypotension will follow up Consultation Date/Type/Reason Admit Date/Time Mar 02, 2017 at 05:33 Initial Consult Date 03/02/17 Type of Consultation: NEPHROLOGY Referring Provider: ROMI ESPINO Exam/Review of Systems Vital Signs Vitals Vital Signs Date Time Temp Pulse Resp B/P Pulse Ox O2 Delivery O2 Flow Rate FiO2 03/23/17 12:29 99.2 102 18 99/57 98 Intake and Output 03/22/17 03/22/17 03/23/17 15:00 23:00 07:00 Intake Total 2675 ml 1900 ml Output Total 4 ml Balance 2671 ml 1900 ml Exam Constitutional: alert, oriented Respiratory: clear to auscultation, intercostal retraction, normal air movement Cardiovascular: nl pulses, regular rate and rhythm Gastrointestinal: non-tender, soft, + colostomy Musculoskeletal: nl extremities to inspection Extremities: normal pulses 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: CUSTOMER OPERATIONS REPRESENTATIVE II-XII intact, nl mental status, nl speech, nl strength Results Result Diagram: 03/22/17 0822 03/23/17 0738 Results 24 hrs Laboratory Tests Test 03/23/17 07:38 03/23/17 09:00 Blood Urea Nitrogen 18 Creatinine 0.88 Vancomycin Level Trough 11.3 Medications Medications Current Medications Sodium Chloride (NS) 1,000 ml @ 75 mls/hr [id number] IV Last administered on 03/23 01:22; Admin Dose 75 MLS/HR; Start 03/02/17 at 12:03 Ondansetron HCl (Zofran Inj) 4 mg Q6H PRN IV NAUSEA AND/OR VOMITING Last administered on 03/14/17 14:27; Admin Dose 4 MG; Start 03/02/17 at 12:30 Acetaminophen (Tylenol Tab) 650 mg Q6H PRN PO PAIN LEVEL 1-3 OR FEVER Last administered on 03/09/17 22:29; Admin Dose 650 MG; Start 03/02/17 at 12:30 Morphine Sulfate (morphine) 2 mg Q4H PRN IV PAIN LEVEL 7-10; Start 03/02/17 at 12:30 Enoxaparin Sodium (Lovenox) 30 mg DAILY SC Last administered on 03/23/17 09:26 ; Admin Dose 30 MG; Start 03/03/17 at 09:00 Cyanocobalamin (Vitamin B12 Inj) 1,000 mcg Q28D IM Last administered on 16:13; Admin Dose 1,000 MCG; Start 03/02/17 at 12:30 Folic Acid (Folic Acid) 1 mg DAILY PO Last administered on 03/23/17 09:21; Admin Dose 1 MG; Start 03/03/17 at 09:00 Acetaminophen/ Hydrocodone Bitart ([place] (10/325)) 1 tab Q6H PRN PO PAIN; Start 03/02/17 at 12:30 Hydroxyzine Pamoate (Vistaril) 25 mg QHS PRN PO ITCHING Last administered on 22:35; Admin Dose 25 MG; Start 03/02/17 at 12:30 Midodrine (Proamatine) 2.5 mg BID@ PRN PO SBP <90 Last administered on 03/22 12:39; Admin Dose 2.5 MG; Start 03/02/17 at 12:30 Pantoprazole (Protonix Tab) 40 mg DAILY@06 PO Last administered on 03/23/17 05 :15; Admin Dose 40 MG; Start 03/03/17 at 06:00 Potassium Chloride (Klor-Con 20) 20 meq TID PO Last administered on 03/23/17 14:09; Admin Dose 20 MEQ; Start 03/05/17 at 21:00 Sodium Bicarbonate (Sodium Bicarbonate Tab) 650 mg TID PO Last administered on 03/23/17 14:08; Admin Dose 650 MG; Start 03/07/17 at 21:00 Magnesium Chloride 64 mg 64 mg TID PO Last administered on 03/23/17 14:08; Admin Dose 64 MG; Start 03/09/17 at 13:00 Ceftriaxone Sodium (Rocephin) 50 ml @ 100 mls/hr Q24H IVPB Last administered on 03/23/17 09:23; Admin Dose 100 MLS/HR; Start 03/13/17 at 10:00 Mupirocin 1 applic 1 applic BID TOP Last administered on 03/23/17 09:28; Admin Dose 1 APPLIC; Start 03/14/17 at 13:00; Stop 03/24/17 at 12:59 Vancomycin HCl (Vancocin) 250 ml @ 166.667 mls/hr Q24H IVPB Last administered on 03/23/17 11:01; Admin Dose 166.667 MLS/HR; Start 03/20/17 at 10:00 ROHAN VELÁZQUEZ MD Mar 23, 2017 14:18
--- NOTE | 2017-03-23 16:18 | CONS ---
Date/Time of Note Date/Time of Note DATE: 03/23/17 TIME: 16:18 Assessment/Plan Assessment/Plan Chief Complaint/Hosp Course - fever due to bacteremia, resolving - bacteremia due to E. coli, kleb pneumo and MRSA, resolving - E. coli in urine culture. Pt does not have UTI symptoms. - recurrent lactic acidosis, improved - posterior neck pain for "years." XR showed mild degenerative spondylosis - probable gastroenteritis on admission, improved - s/p sepsis due to bacteremia - h/o bacteremia due to coag negative Staph hemolyticus on 12/26/2016 and Staph epidermidis on 12/27/2016, 12/31/2016 CoNS (not speciated) - h/o urine culture +MRSA, enterococci, lactobacillus on 12/24/2016 - h/o recurrent bacteremia due to MSSA in 10/2015 and 10/2016. Transesophageal echo on 11/12/2016 was negative for valvular vegetation - h/o low-level nonspecific increase in tracer uptake within the mediastinum on WBC tagged scan 12/31/2016 - h/o extensive catheterization - h/o persistent hypotension - h/o infected portacath, s/p removal in 2015-->new port was placed on 11/15/2016 - h/o possible small bowel obstruction, resolved - h/o acute kidney injury, resolved - Hirschsprung's disease, status post colectomy/ileostomy - MRSA colonization recommendations: - continue ceftriaxone (03/13/2017-), we recommend 2 weeks from the first negative blood culture, suggested end date 03/26/2017 - continue IV vancomycin (03/09/2017-) , we recommend 2 weeks from the first negative blood culture, suggested end date 03/26/2017 - continue mupirocin (03/14/2017-) for MRSA decolonization, plan for 10 days Problems: Consultation Date/Type/Reason Admit Date/Time Mar 02, 2017 at 05:33 Initial Consult Date 03/10/17 Type of Consultation: ID Referring Provider: ROMI ESPINO Exam/Review of Systems Vital Signs Vitals Vital Signs Date Time Temp Pulse Resp B/P Pulse Ox O2 Delivery O2 Flow Rate FiO2 03/23/17 16:10 100 03/23/17 12:29 99.2 18 99/57 98 Intake and Output 03/22/17 03/22/1717 15:00 23:00 07:00 Intake Total 2675 ml 1900 ml Output Total 4 ml Balance 2671 ml 1900 ml Results Result Diagram: 03/22/17 0822 03/23/17 0738 Results 24 hrs Laboratory Tests Test 03/23/17 07:38 03/23/17 09:00 Blood Urea Nitrogen 18 Creatinine 0.88 Vancomycin Level Trough 11.3 Medications Medications Current Medications Sodium Chloride (NS) 1,000 ml @ 75 mls/hr [id number] IV Last administered on 03/23 01:22; Admin Dose 75 MLS/HR; Start 03/02/17 at 12:03 Ondansetron HCl (Zofran Inj) 4 mg Q6H PRN IV NAUSEA AND/OR VOMITING Last administered on 03/14/17 14:27; Admin Dose 4 MG; Start 03/02/17 at 12:30 Acetaminophen (Tylenol Tab) 650 mg Q6H PRN PO PAIN LEVEL 1-3 OR FEVER Last administered on 03/09/17 22:29; Admin Dose 650 MG; Start 03/02/17 at 12:30 Morphine Sulfate (morphine) 2 mg Q4H PRN IV PAIN LEVEL 7-10; Start 03/02/17 at 12:30 Enoxaparin Sodium (Lovenox) 30 mg DAILY SC Last administered on 03/23/17 09:26 ; Admin Dose 30 MG; Start 03/03/17 at 09:00 Cyanocobalamin (Vitamin B12 Inj) 1,000 mcg Q28D IM Last administered on 16:13; Admin Dose 1,000 MCG; Start 03/02/17 at 12:30 Folic Acid (Folic Acid) 1 mg DAILY PO Last administered on 03/23/17 09:21; Admin Dose 1 MG; Start 03/03/17 at 09:00 Acetaminophen/ Hydrocodone Bitart ([place] (10/325)) 1 tab Q6H PRN PO PAIN; Start 03/02/17 at 12:30 Hydroxyzine Pamoate (Vistaril) 25 mg QHS PRN PO ITCHING Last administered on 22:35; Admin Dose 25 MG; Start 03/02/17 at 12:30 Midodrine (Proamatine) 2.5 mg BID@09,17 PRN PO SBP <90 Last administered on 03/22 12:39; Admin Dose 2.5 MG; Start 03/02/17 at 12:30 Pantoprazole (Protonix Tab) 40 mg DAILY@06 PO Last administered on 03/23/17 05 :15; Admin Dose 40 MG; Start 03/03/17 at 06:00 Potassium Chloride (Klor-Con 20) 20 meq TID PO Last administered on 03/23/17 14:09; Admin Dose 20 MEQ; Start 03/05/17 at 21:00 Sodium Bicarbonate (Sodium Bicarbonate Tab) 650 mg TID PO Last administered on 03/23/17 14:08; Admin Dose 650 MG; Start 03/07/17 at 21:00 Magnesium Chloride 64 mg 64 mg TID PO Last administered on 03/23/17 14:08; Admin Dose 64 MG; Start 03/09/17 at 13:00 Ceftriaxone Sodium (Rocephin) 50 ml @ 100 mls/hr Q24H IVPB Last administered on 03/23/17 09:23; Admin Dose 100 MLS/HR; Start 03/13/17 at 10:00 Mupirocin 1 applic 1 applic BID TOP Last administered on 03/23/17 09:28; Admin Dose 1 APPLIC; Start 03/14/17 at 13:00; Stop 03/24/17 at 12:59 Vancomycin HCl (Vancocin) 250 ml @ 166.667 mls/hr Q24H IVPB Last administered on 03/23/17 11:01; Admin Dose 166.667 MLS/HR; Start 03/20/17 at 10:00 LISS MALDONADO MD Mar 23, 2017 16:18
== END 2017-03-23 18:30 | disposition home health service (06) | DRG 682 ==
LOC: E/R 23:49 → MS4 03-02 05:33 → UNDODISIN 03-14 13:38
PROVIDERS: ADMIT Internal Medicine; ATTEND Internal Medicine
PROC: 30233N1 Transfusion of Nonautologous Red Blood Cells into Peripheral Vein, Percutaneous Approach (ICD-10-PCS; principal; 2017-03-08)
DX: N17.9 Acute kidney failure, unspecified (principal); A41.51 Sepsis due to Escherichia coli [E. coli]; E43 Unspecified severe protein-calorie malnutrition; E87.2 Acidosis; I95.9 Hypotension, unspecified; Q43.1 Hirschsprung's disease; E87.1 Hypo-osmolality and hyponatremia; N39.0 Urinary tract infection, site not specified; Z68.1 Body mass index [BMI] 19.9 or less, adult; E83.42 Hypomagnesemia; E86.0 Dehydration; E87.5 Hyperkalemia; E87.6 Hypokalemia; E83.39 Other disorders of phosphorus metabolism; D64.9 Anemia, unspecified; Z93.3 Colostomy status; B96.1 Klebsiella pneumoniae [K. pneumoniae] as the cause of diseases classified elsewhere; B95.62 Methicillin resistant Staphylococcus aureus infection as the cause of diseases classified elsewhere; M47.892 Other spondylosis, cervical region
CPT/HCPCS: 36415; 36430; 71010; 72040; 80048; 80053; 80202; 81001; 82565; 83605; 83690; 83735; 83930; 83935; 84100; 84300; 84520; 85025; 86850; 86900; 86901; 86920; 87040; 87081; 87086; 93005; 94664; 96374; 96375; 97161; J0692; J1170; J1650; J1815; J2405; J2765; J3370; J3420; J3475; J3480; J7030; J7040; J7050; P9016

== ENCOUNTER 2017-03-31 16:31 | Inpatient (IN) | payer OTHER ==
[~2017-03-31] VITALS: Ht 147.3 cm; Wt 36.6 kg
[~2017-03-31 16:31] MED LIST changes: +POTA20TA15 PO
[2017-03-31] MEDS ORDERED: morphine 2 MG INJ IV STA (19:27)
[2017-03-31] MEDS ORDERED: ONDANSETRON 4 MG INJ IV STA (19:27)
[2017-03-31] MEDS ORDERED: SOD CHLORIDE 0.9% 500 ML IV STA ×2 (19:27→21:05)
[2017-03-31] MEDS ORDERED: FAMO20TA18 PO (20:11)
[2017-03-31] MEDS ORDERED: ONDA-43 PO (20:11)
[2017-03-31 20:19] LABS: BASOPHILS % 0.2 % (0.0-2.0); HEMOGLOBIN 14.7 g/dl (12.0-16.0); LYMPHOCYTES # 0.8 10^3/ul (0.8-2.9); LYMPHOCYTES % 6.7 % (15.0-51.0); MEAN CORPUSCULAR HEMOGLOBIN 29.7 pg (29.0-33.0); MEAN CORPUSCULAR HGB CONC 34.2 g/dl (32.0-37.0); MEAN CORPUSCULAR VOLUME 86.9 fl (82.0-101.0); MEAN PLATELET VOLUME 10.1 fl (7.4-10.4); MONOCYTE # 0.4 10^3/ul (0.3-0.9); MONOCYTES % 2.9 % (0.0-11.0); NEUTROPHIL # 10.8 10^3/ul (1.6-7.5); NEUTROPHILS % 89.6 % (39.0-77.0); PLATELET COUNT 515 10^3/UL (140-415); RED BLOOD COUNT 4.95 10^6/ul (4.20-5.40); RED CELL DISTRIBUTION WIDTH 13.4 % (11.5-14.5)
[2017-03-31 20:25] LABS: ADD UMIC YES; UR ASCORBIC ACID NEGATIVE (NEGATIVE); UR BILIRUBIN (Dip) NEGATIVE (NEGATIVE); UR BLOOD (Dip) NEGATIVE (NEGATIVE); UR CLARITY CLEAR (CLEAR); UR COLOR YELLOW (YELLOW); UR GLUCOSE (Dip) NEGATIVE (NEGATIVE); UR KETONES (Dip) NEGATIVE (NEGATIVE); UR LEUKOCYTE ESTERASE (Dip) NEGATIVE Leu/ul (NEGATIVE); UR NITRITE (Dip) NEGATIVE (NEGATIVE); UR RBC 1 /HPF (0-5); UR TOTAL PROTEIN (Dip) 3+ mg/dl (NEGATIVE); UR UROBILINOGEN (Dip) NEGATIVE (NEGATIVE)
[2017-03-31 20:37] LABS: ALBUMIN 5.4 g/dl (3.3-4.9); ALBUMIN/GLOBULIN RATIO 1.17; BILIRUBIN,INDIRECT 0.4 mg/dl (0-1.1); BILIRUBIN,TOTAL 0.4 mg/dl (0.2-1.3); CALCIUM 10.7 mg/dl (8.4-10.2)
[2017-03-31 20:39] LABS: CREATININE 1.53 mg/dl (0.44-1.00)
[2017-03-31 20:41] LABS: POTASSIUM 7.2 mmol/L (3.5-5.1)
[2017-03-31] MEDS ORDERED: NA POLYST SULFON 15 GM/60 ML BTL PO STA (21:05)
[2017-03-31] MEDS ORDERED: CA CHLORIDE 10% 10 ML SYRINGE IV STA (21:05)
[2017-03-31] MEDS ORDERED: NA BICARBONATE 8.4% 50 ML SYG IV STA (21:05)
[2017-03-31] MEDS ORDERED: ALBUTEROL 0.5% (NEB) 2.5 MG/0.5 ML AMP INH STA (21:05)
[2017-03-31] MEDS ORDERED: INSULIN REGULAR, HUMAN 100 UNIT/1 ML 3ML VIAL IV STA (21:05)
[2017-03-31] MEDS ORDERED: DEXTROSE 50% 50 ML SYRINGE IV PRN (21:30)
[2017-03-31 21:38] LABS: CALCIUM 9.6 mg/dl (8.4-10.2); CREATININE 1.46 mg/dl (0.44-1.00)
--- NOTE | 2017-03-31 22:04 | ERA ---
ER Documentation Chief Complaint Date/Time DATE: 03/31/17 TIME: 22:04 Chief Complaint MATAMOROS , VOMITING, HX OF HIRSPRUNG DISEASE HPI 41 year old female history of Hirschsprung's disease presenting with acute on chronic back pain and abdominal pain. Patient is frequently in the ED for similar complaints. She was recently admitted about 20 days ago for the same complaints and found to have sepsis. She denies any fevers or chills. She does endorse multiple episodes of nonbloody and nonbilious vomiting all day. Her pain is aching, nonradiating. She has normal output from her ostomy. ROS All systems reviewed and are negative except as per history of present illness. Medications Home Meds Active Scripts Potassium Chloride* (K-Dur*) 20 Meq Tab.prt.sr, 20 MEQ PO TID for 30 Days Prov:DEVENDRA GOMES 03/23/17 Reported Medications Famotidine* (Famotidine*) 20 Mg Tablet, 20 MG PO BID, #60 TAB 03/31/17 Ondansetron Hcl* (Zofran*) 4 Mg Tab, 4 MG PO Q6H Y for NAUSEA AND OR VOMITING, TAB 03/31/17 Hydroxyzine Pamoate* (Vistaril*) 25 Mg Capsule, 25 MG PO QHS Y for ITCHING, CAP 11/02/15 Folic Acid* (Folic Acid*) 1 Mg Tablet, 1 MG PO DAILY, TAB 11/02/15 Cyanocobalamin* (Vitamin B-12* Inj) 1,000 Mcg/Ml Vial, 1000 MCG IM Q28D, VIAL 11/02/15 Discontinued Reported Medications Acetaminophen* (Acetaminophen*) 500 MG Extra Strength Tablet, 500 MG PO Q4H Y for PAIN AND OR ELEVATED TEMP, TAB 11/21/16 Multivits-Min/Iron/FA/Lutein (Centrum Silver Women Tablet) 1 Each Tablet, 1 EACH PO DAILY, TAB 11/21/16 Albuterol Sulfate* (Proair HFA*) 8.5 Gm Hfa.aer.ad, 2 PUFF INH Q4H Y for WHEEZING AND SOB, #1 INHALER 11/02/15 Discontinued Scripts Hydrocodone/Acetaminophen ([place] 10-325 Tablet) 1 Each Tablet, 1 TAB PO Q6H Y for PAIN, #7 TAB Prov:BOLIVAR UNGER MD 02/16/17 [Vancomycin Iv Per Pharmacy] 1 EA EACH No Conflict Check, 0 EA XX .PER PROTOCOL for 3 Days Prov:GELY ESPINOETLANA 01/13/17 Pantoprazole* (Pantoprazole*) 40 Mg Tablet.dr, 40 MG PO DAILY@06 for 30 Days Prov:LEIGHANNROMI LONG 01/13/17 Sodium Bicarbonate (Na Bicarbonate) 650 Mg Tab, 650 MG PO BID for 14 Days, TAB Prov:LEIGHANNROMI LONG 01/13/17 Magnesium Chloride* (Mag 64*) 64 Mg Tabsr, 64 MG PO BID for 14 Days, TAB Prov:LEIGHANNROMI LONG 01/13/17 Midodrine HCl (Midodrine HCl) 2.5 Mg Tablet, 2.5 MG PO BID@09,17 Y for SBP <90 for 30 Days, TAB Prov:DEVENDRA GOMES 11/16/16 Allergies Allergies: Coded Allergies: No Known Allergies (Verified Allergy, Unknown, 03/31/17) ferrous sulfate (Verified Adverse Reaction, Severe, vomiting, 03/31/17) ANY FORM OF FERROUS codeine (Verified Adverse Reaction, Intermediate, vomiting , 03/31/17) PMhx/Soc History of Surgery: Yes (ILLEOSTOMY, IMPLANTED PORT) Anesthesia Reaction: No Hx 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 Disorder: No Hx Respiratory Disorders: No Hx Cardiac Disorders: No Hx Psychiatric Problems: No Hx Miscellaneous Medical Probl: Yes (see H&P FOR HIRSHPRUNGS) Hx Alcohol Use: No Hx Substance Use: No Hx Tobacco Use: No Smoking Status: Never smoker FmHx Family History: No diabetes Physical Exam Vitals Vital Signs Date Time Temp Pulse Resp B/P Pulse Ox O2 Delivery O2 Flow Rate FiO2 03/31/17 21:37 109 20 97 21 03/31/17 20:00 97.4 104 16 116/88 100 Room Air 03/31/17 16:41 97.4 115 20 112/81 99 Physical Exam Const: Chronically ill-appearing, nontoxic Head: Atraumatic Eyes: Normal Conjunctiva ENT: Dry mucous membranes Neck: Full range of motion..~ No meningismus. Resp: Clear to auscultation bilaterally Cardio: Regular rate and rhythm, no murmurs Abd: Multiple surgical scars. soft, non tender, non distended. Ostomy noted with brown stool. Normal bowel sounds Skin: No petechiae or rashes Back: No midline or flank tenderness Ext: No cyanosis, or edema Neur: Awake and alert Psych: Normal Mood and Affect Result Diagram: 03/31/17200903/31/17 2100 Results 24 hrs Laboratory Tests Test 03/31/17 20:10 03/31/17 21:00 03/31/17 21:33 White Blood Count 12.010^3/ul Red Blood Count 4.9510^6/ul Hemoglobin 14.7g/dl Hematocrit 43.0% Mean Corpuscular Volume 86.9fl Mean Corpuscular Hemoglobin 29.7pg Mean Corpuscular Hemoglobin Concent 34.2g/dl Red Cell Distribution Width 13.4% Platelet Count 10693^3/UL Mean Platelet Volume 10.1fl Neutrophils % 89.6% Lymphocytes % 6.7% Monocytes % 2.9% Eosinophils % 0.0% Basophils % 0.2% Nucleated Red Blood Cells % 0.0/100WBC Neutrophils # 10.810^3/ul Lymphocytes # 0.810^3/ul Monocytes # 0.410^3/ul Eosinophils # 0.010^3/ul Basophils # 0.010^3/ul Nucleated Red Blood Cells # 0.010^3/ul Urine Color YELLOW Urine Clarity CLEAR Urine pH 5.0 Urine Specific [place] 1.020 Urine Ketones NEGATIVEmg/dL Urine Nitrite NEGATIVEmg/dL Urine Bilirubin NEGATIVEmg/dL Urine Urobilinogen NEGATIVEmg/dL Urine Leukocyte Esterase NEGATIVELeu/ul Urine Microscopic RBC 1/HPF Urine Microscopic WBC 1/HPF Urine Hemoglobin NEGATIVEmg/dL Urine Glucose NEGATIVEmg/dL Urine Total Protein 3+mg/dl Sodium Level 128mmol/L 128mmol/L Potassium Level 7.2mmol/L 8.0mmol/L Chloride Level 95mmol/L 97mmol/L Carbon Dioxide Level 17mmol/L 18mmol/L Anion Gap 23 21 Blood Urea Nitrogen 57mg/dl 53mg/dl Creatinine 1.53mg/dl 1.46mg/dl Glucose Level 187mg/dl 152mg/dl Calcium Level 10.7mg/dl 9.6mg/dl Total Bilirubin 0.4mg/dl Direct Bilirubin 0.00mg/dl Indirect Bilirubin 0.4mg/dl Aspartate Amino Transf (AST/SGOT) 31IU/L Alanine Aminotransferase (ALT/SGPT) 37IU/L Alkaline Phosphatase 131IU/L Total Protein 10.0g/dl Albumin 5.4g/dl Globulin 4.60g/dl Albumin/Globulin Ratio 1.17 Lipase 127U/L Bedside Glucose 140mg/dL Current Medications Medications (Trade) Dose Ordered Sig/Elvie Route PRN Reason Start Time Stop Time Status Last Admin Dose Admin Sodium Chloride (NS) 500 ml @ 500 mls/hr Q1H STAT IV 03/31/17 19:27 03/31/17 20:26 DC 03/31/17 20:22 Morphine Sulfate (morphine) 2 mg ONCE STAT IV 03/31/17 19:27 03/31/17 19:28 DC 03/31/17 20:22 Ondansetron HCl (Zofran Inj) 4 mg ONCE STAT IV 03/31/17 19:27 03/31/17 19:28 DC 03/31/17 20:21 Sodium Polystyrene Sulfonate (Kayexalate) 30 gm ONCE STAT PO 03/31/17 21:05 03/31/17 21:07 DC 03/31/17 21:39 Albuterol (Proventil 0.5% (Neb)) 15 mg ONCE STAT INH 03/31/17 21:05 03/31/17 21:07 DC 03/31/17 21:37 Sodium Bicarbonate 50 ml 50 ml ONCE STAT IV 03/31/17 21:05 03/31/17 21:07 DC 03/31/17 21:38 Sodium Chloride (NS) 500 ml @ 500 mls/hr Q1H STAT IV 03/31/17 21:05 03/31/17 22:04 DC 03/31/17 23:37 Calcium Chloride (Ca Chloride 10% Syg) 1,000 mg ONCE STAT IV 03/31/17 21:05 03/31/17 21:07 DC 03/31/17 21:37 Insulin Human Regular (Humulin R) 10 unit ONCE STAT IV 03/31/17 21:05 03/31/17 21:07 DC 03/31/17 21:36 Dextrose (D50w Syringe) ONCE PRN IV POC BLOOD GLUCOSE <250 MG/DL 03/31/17 21:30 03/31/17 21:38 Procedures/MDM EKG #1: Rate/Rhythm: Normal sinus rhythm QRS, ST, T-waves: No changes consistent w/ acute ischemia, peaked T waves Impression: No evidence of ischemia or arrhythmia. Peaked T waves concerning for hyperkalemia EKG post hyperkalemia treatment: Rate/Rhythm: Normal Sinus Rhythm QRS, ST, T-waves: No changes consistent w/ acute ischemia Impression: No evidence of ischemia or arrhythmia MDM patient is presenting with acute on chronic back and abdominal pain. Vitals are only notable for mild tachycardia but she is afebrile and nontoxic. Basic labs were done showing evidence of hyperkalemia, hyponatremia, and acute renal failure. Of note, the patient is on potassium supplementation at home. Hyperkalemia was treated with insulin, dextrose, Kayexalate, calcium chloride, and bicarb with improvement of her EKG changes. He remained hemodynamically stable. I do not suspect acute surgical abdomen at this time. Her nausea and vomiting were controlled with medications. IV fluids were given. There is no evidence of sepsis at this time. However the patient will require admission for stabilization and evaluation for possible dialysis versus medical treatment of her acute renal failure and hyperkalemia. I spoke with the admitting physician, who requested a repeat BMP. He stated if her potassium is improving, she may be admitted to telemetry. If not, he recommended admission to ICU. Critical Care Time: 45 minutes Treatments/Evaluations: Close monitoring and treatment of unstable vital signs, cardiorespiratory, and neurologic status, while maintaining tight balance of fluid, respiratory, and cardiac interventions. This time includes discussing the case with the patient and the patients family. This time does not include all procedures stated elsewhere in this record. This time also includes reviewing old records, labs and radiological studies. This time includes examining and re-examining the patient. Additionally, this time also includes arranging care with admitting and consulting physicians. Accepting Care Team: Current data and ongoing care discussed. Time: Time of admission Primary Provider: Jeannine Consulting: None Outstanding Data: BMP Signed out to the oncoming ED physician who will admit the patient to the appropriate level of care after the BMP results have returned. Departure Diagnosis: Primary Impression: Vomiting Qualified Code: R11.2 - Non-intractable vomiting with nausea, unspecified vomiting type Additional Impressions: Acute renal failure Qualified Code: N17.9 - Acute renal failure, unspecified acute renal failure type Acute hyperkalemia Condition: Serious JOCELIN GARCIA MD Mar 31, 2017 22:04
[2017-03-31 23:36] LABS: CALCIUM 12.8 mg/dl (8.4-10.2); CREATININE 1.49 mg/dl (0.44-1.00); POTASSIUM 4.7 mmol/L (3.5-5.1)
[2017-04-01] MEDS ORDERED: morphine 4 MG/ML VIAL IV STA ×2 (00:47→05:06)
[2017-04-01] MEDS ORDERED: ONDANSETRON 4 MG INJ IV STA ×2 (00:47→05:06)
[2017-04-01] MEDS ORDERED: ACETAMINOPHEN 325 MG TAB PO PRN ×2 (08:30→12:00)
[2017-04-01] MEDS ORDERED: ONDANSETRON 4 MG INJ IV PRN ×2 (08:30→12:00)
[2017-04-01] MEDS ORDERED: NACL 0.9% 3 ML SYG IV SCH (12:00)
[2017-04-01] MEDS: SOD CHLORIDE 0.9% 1,000 ML IV SCH ×3 (12:10→19:25)
[2017-04-01 12:11] VITALS: TEMP 98.9
--- NOTE | 2017-04-01 12:41 | HP ---
DATE OF ADMISSION: 03/31/2017 CHIEF COMPLAINT: Nausea and vomiting. HISTORY OF PRESENT ILLNESS: The patient is a 41-year-old female with history of Hirschsprung disease, multiple abdominal surgeries in childhood, patient with ileostomy. Patient developed non bilious, non bloody emesis yesterday last night and presented to the emergency room. On evaluation in emergency room, patient was found to have elevated potassium of 7.2. Patient also noted to have white blood cells elevated at 12,000; however, denies any fever and chills. Patient was given treatment for hyperkalemia and was given IV fluids. Patient also was hyponatremic with sodium of 128, and patient denies any chest pain, denies shortness of breath and patient will be admitted for further evaluation and management to telemetry floor. PAST MEDICAL HISTORY: Per HPI. PAST SURGICAL HISTORY: Per HPI. SOCIAL HISTORY: Patient lives at home with her mother. Patient denies any tobacco use. Denies any alcohol use. Denies any illicit drug use. ALLERGIES: THE PATIENT IS ALLERGIC TO CODEINE, FERROUS SULFATE. MEDICATIONS: Includes: 1. Potassium supplements 20 mEq tablets p.o. t.i.d. 2. Pepcid. 3. Zofran. 4. Vistaril. 5. Folic acid. 6. Vitamin B12. REVIEW OF SYSTEMS: Twelve point review of system is negative unless mentioned in HPI. PHYSICAL EXAMINATION: GENERAL: Well-developed, well-nourished female, currently is awake, alert, in no acute distress. VITAL SIGNS: Temperature is 98.6, pulse is 118, blood pressure 106/77, respiratory rate 17, oxygen saturation 96 percent on room air. HEENT: Head is atraumatic, normocephalic. Pupils equal, round, reactive to light and accommodation. Oral mucosa is pink and moist. NECK: Supple. No cervical lymphadenopathy. No thyromegaly. CHEST: Lungs clear bilaterally with no rhonchi, wheezes, rales noted. CARDIOVASCULAR: Normal S1, S2. No murmurs, gallops, clicks, rubs noted. The patient has a right chest Port-A-Cath. ABDOMEN: Flat, soft, nondistended, nontender. Patient has a right lower quadrant ileostomy. Bowel sounds present. There is no guarding. No abdominal distention. EXTREMITIES: No edema, clubbing, cyanosis. SKIN: No rash. No petechiae noted. NEUROLOGICAL: Patient is awake, alert, and oriented x4. No focal deficits noted. Motor strength is 5/5 in all extremities. LABORATORY DATA: On admission, CBC: White blood cells 12, hemoglobin 14.7, hematocrit 43, platelets 515. On admission chemistry: Sodium is 128, potassium 7.2, chloride 95, carbon dioxide 17, anion gap 23, BUN is 67, creatinine 1.53 glucose 187. ASSESSMENT AND PLAN: 1. Acute kidney injury. Continue intravenous fluids. We will ask Dr. Spain to see patient in Nephrology consultation. 2. Hyperkalemia. Continue to monitor potassium. 3. Hyponatremia. 4. History of Hirschsprung disease with multiple abdominal surgeries in childhood. 5. Ileostomy. PLAN: We are going to continue Pepcid for peptic ulcer disease prophylaxis and sequential compression device for deep venous thrombosis prophylaxis. Patient underwent urinalysis which was negative for ketones and nitrites and leukocyte esterase. Admit patient to telemetry floor. Further recommendations based on clinical course. Plan of care discussed with Dr. Paez. Dictated By: Zoë Jiménez NP /russell/virgilio /Document#: [id number]
--- NOTE | 2017-04-01 13:37 | CONS ---
Date/Time of Note Date/Time of Note DATE: 04/01/17 TIME: 13:36 Assessment/Plan Assessment/Plan Additional Assessment/Plan 1. acute kidney injury due to severe prerenal azotemia 2. Hyperkalemia 3. hypercalcemia 4. Metaboilc acidosis due to azotemia and dehydration 5. H/o Hirschsprung disesae Plan : K normal today after Treatment in ED contineu IVF NS at 125 cc/hr, pt received two dose of NS bolus in ED Afebrile we will continue to follow up on patient, AM labs has been ordered no need for CKD darci since she has been admitted multiple times in past and she is known to me will follow up Consultation Date/Type/Reason Admit Date/Time 03/31/2017 Date of Consultation: Apr 01, 2017 Type of Consultation: NEPHROLOGY Reason for Consultation acute kidney injury, Hyperkalemia, Hypercalcemia, Severe metabolic acidosis Referring Provider: CARLOS RODRIGUEZ MD Hx of Present Illness 41-year-old female with history of Hirschsprung disease, multiple abdominal surgeries in childhood, patient with ileostomy. Patient developed non bilious, non bloody emesis yesterday last night and presented to the emergency room. she is noted to have acute renal failure with BUN 49, Cr 1.49.she was hyperkalemic overnigh with K 8.0. she received multiple treatments for hyerkalemia and renal has been consulte for MELBA, Hyperkalemia, Hypercalcemia Past Surgical History Past Surgical Hx: bowel resection, other Social History Smoking Status: Never smoker Exam/Review of Systems Vital Signs Vitals Vital Signs Date Time Temp Pulse Resp B/P Pulse Ox O2 Delivery O2 Flow Rate FiO2 04/01/17 12:11 98.9 120 17 111/86 99 Room Air 03/31/17 21:37 21 Exam Constitutional: alert Psych: no complaints Head: normocephalic Eyes: nl conjunctiva ENMT: nl external ears & nose Neck: supple Respiratory: clear to auscultation, normal air movement Cardiovascular: regular rate and rhythm Gastrointestinal: firm, soft, tender Musculoskeletal: nl extremities to inspection Extremities: normal pulses 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: AIR HOIST OPERATOR II-XII intact, nl mental status, nl speech, nl strength Skin: nl turgor Results Result Diagram: 03/31/17200903/31/17 2315 Results 24 hrs Laboratory Tests Test 03/31/17 20:10 03/31/17 21:00 03/31/17 21:33 03/31/17 23:15 White Blood Count 12.0 #H Red Blood Count 4.95 Hemoglobin 14.7 Hematocrit 43.0 Mean Corpuscular Volume 86.9 Mean Corpuscular Hemoglobin 29.7 Mean Corpuscular Hemoglobin Concent 34.2 Red Cell Distribution Width 13.4 Platelet Count 515 H Mean Platelet Volume 10.1 Neutrophils % 89.6 H Lymphocytes % 6.7 L Monocytes % 2.9 Eosinophils % 0.0 Basophils % 0.2 Nucleated Red Blood Cells % 0.0 Neutrophils # 10.8 H Lymphocytes # 0.8 Monocytes # 0.4 Eosinophils # 0.0 Basophils # 0.0 Nucleated Red Blood Cells # 0.0 Urine Color YELLOW Urine Clarity CLEAR Urine pH 5.0 Urine Specific [place] 1.020 Urine Ketones NEGATIVE Urine Nitrite NEGATIVE Urine Bilirubin NEGATIVE Urine Urobilinogen NEGATIVE Urine Leukocyte Esterase NEGATIVE Urine Microscopic RBC 1 Urine Microscopic WBC 1 Urine Hemoglobin NEGATIVE Urine Glucose NEGATIVE Urine Total Protein 3+ H Sodium Level 128 L 128 L 136 Potassium Level 7.2 *H 8.0 *H 4.7 # Chloride Level 95 L 97 96 L Carbon Dioxide Level 17 L 18 L 18 L Anion Gap 23 H 21 H 27 H Blood Urea Nitrogen 57 H 53 H 49 H Creatinine 1.53 H 1.46 H 1.49 H Glucose Level 187 152 227 H Calcium Level 10.7 H 9.6 12.8 #H Total Bilirubin 0.4 Direct Bilirubin 0.00 Indirect Bilirubin 0.4 Aspartate Amino Transf (AST/SGOT) 31 Alanine Aminotransferase (ALT/SGPT) 37 Alkaline Phosphatase 131 H Total Protein 10.0 H Albumin 5.4 H Globulin 4.60 H Albumin/Globulin Ratio 1.17 Lipase 127 Bedside Glucose 140 Test 04/01/17 06:04 Bedside Glucose 118 Medications Medications Current Medications Dextrose ONCE PRN IV POC BLOOD GLUCOSE <250 MG/DL Last administered on 21:38; Admin Dose 50 ML; Start 03/31/17 at 21:30 Sodium Chloride (NS) 1,000 ml @ 125 mls/hr Q8H IV Last administered on 12:10; Admin Dose 125 MLS/HR; Start 04/01/17 at 11:52 Ondansetron HCl (Zofran Inj) 4 mg Q6H PRN IV NAUSEA AND/OR VOMITING; Start at 12:00 Acetaminophen (Tylenol Tab) 650 mg Q6H PRN PO PAIN LEVEL 1-3 OR FEVER; Start at 12:00 Famotidine (Pepcid) 20 mg Q12 PO ; Start 04/01/17 at 21:00 Enoxaparin Sodium (Lovenox) 30 mg DAILY SC ; Start 04/02/17 at 09:00 ROHAN VELÁZQUEZ MD Apr 01, 2017 13:37
[2017-04-01 15:30] VITALS: Ht 147.3 cm; Wt 36.6 kg
[2017-04-01 15:50] VITALS: BP 115/68; RESP 20
[2017-04-01 19:34] VITALS: BP 90/60; RESP 20
[2017-04-01] MEDS: FAMOTIDINE 20 MG TAB PO SCH (20:39)
[2017-04-01 21:41] VITALS: BP 111/69; PULSE 107; RESP 18
[2017-04-01] MEDS: DIPHENHYDRAMINE 25 MG CAP PO PRN (21:47)
[2017-04-02] MEDS: SOD CHLORIDE 0.9% 1,000 ML IV SCH ×5 (00:25→21:36)
[2017-04-02 01:47] VITALS: BP 102/61; RESP 20
[2017-04-02 05:48] LABS: BASOPHIL # 0.1 10^3/ul (0.0-0.1); BASOPHILS % 1.4 % (0.0-2.0); EOSINOPHILS # 0.5 10^3/ul (0.0-0.5); EOSINOPHILS % 8.2 % (0.0-7.0); HEMATOCRIT 32.4 % (37.0-47.0); LYMPHOCYTES # 0.8 10^3/ul (0.8-2.9); LYMPHOCYTES % 14.6 % (15.0-51.0); MEAN CORPUSCULAR HEMOGLOBIN 30.1 pg (29.0-33.0); MEAN CORPUSCULAR VOLUME 88.8 fl (82.0-101.0); MEAN PLATELET VOLUME 10.2 fl (7.4-10.4); MONOCYTE # 0.8 10^3/ul (0.3-0.9); MONOCYTES % 13.4 % (0.0-11.0); NEUTROPHIL # 3.6 10^3/ul (1.6-7.5); NEUTROPHILS % 62.1 % (39.0-77.0); PLATELET COUNT 295 10^3/UL (140-415); RED BLOOD COUNT 3.65 10^6/ul (4.20-5.40); RED CELL DISTRIBUTION WIDTH 13.5 % (11.5-14.5); WHITE BLOOD COUNT 5.8 10^3/ul (4.8-10.8)
[2017-04-02 06:28] LABS: ALBUMIN 3.6 g/dl (3.3-4.9); ALBUMIN/GLOBULIN RATIO 1.24; BILIRUBIN,INDIRECT 0.6 mg/dl (0-1.1); BILIRUBIN,TOTAL 0.6 mg/dl (0.2-1.3); CALCIUM 8.5 mg/dl (8.4-10.2); CREATININE 1.07 mg/dl (0.44-1.00); MAGNESIUM 1.2 mg/dl (1.7-2.5); POTASSIUM 3.7 mmol/L (3.5-5.1); TOTAL PROTEIN 6.5 g/dl (6.1-8.1)
[2017-04-02 07:36] VITALS: BP 99/67; RESP 19
[2017-04-02] MEDS: FAMOTIDINE 20 MG TAB PO SCH ×2 (09:31→20:19)
[2017-04-02] MEDS: ENOXAPARIN 30 MG/0.3 ML SYG SC SCH (09:35)
[2017-04-02] MEDS ORDERED: MAGNESIUM SULFATE 4 GM/100 ML 100 ML IVPB ONE (13:30)
[2017-04-02 14:31] VITALS: BP 93/54; RESP 19
--- NOTE | 2017-04-02 15:21 | CONS ---
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 Patient developed non bilious, non bloody emesis yesterday last night and presented to the emergency room. she is noted to have acute renal failure with BUN 49, Cr 1.49.she was hyperkalemic overnigh with K 8.0. she received multiple treatments for hyerkalemia and renal has been consulte for MELBA, Hyperkalemia, Hypercalcemia Problems: Additional Assessment/Plan 1. acute kidney injury due to severe prerenal azotemia- Cr improving with IVF hydration 2. Hyperkalemia- Improved to normal with treatment 3. hypercalcemia 2/2 severe dehydration now normal 4. Metaboilc acidosis due to azotemia and dehydration 5. H/o Hirschsprung disesae 6. Hypomagnesemia Plan : K normal today 3.7 mag 1.2- will give magensium sulfate 4 gram IV x 1 dose today contineu IVF NS - decrease rate to 80 cc/hr no need for CKD work up since she has been admitted multiple times in past and she is known to me Monitor electrolytes and replace as needed will follow up Consultation Date/Type/Reason Admit Date/Time Apr 01, 2017 at 08:19 Initial Consult Date 04/01/17 Type of Consultation: NEPHROLOGY Referring Provider: CARLOS RODRIGUEZ MD 24 HR Interval Summary Free Text/Dictation Cr improved, Mag low, C/o abdominal pain Exam/Review of Systems Vital Signs Vitals Vital Signs Date Time Temp Pulse Resp B/P Pulse Ox O2 Delivery O2 Flow Rate FiO2 04/02/17 14:31 98.0 87 19 93/54 99 04/01/17 21:41 Room Air 03/31/17 21:37 21 Intake and Output 04/01/17 04/01/17 04/02/17 15:00 23:00 07:00 Intake Total 250 ml 1425 ml Balance 250 ml 1425 ml Exam Constitutional: alert Respiratory: clear to auscultation, normal air movement Cardiovascular: regular rate and rhythm Gastrointestinal: firm, soft, tender Musculoskeletal: nl extremities to inspection Extremities: normal pulses 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, nl mental status, nl speech, nl strength Results Result Diagram: 04/02/1752204/02/17 05 Results 24 hrs Laboratory Tests Test 04/02/17 05:23 White Blood Count 5.8 # Red Blood Count 3.65 #L Hemoglobin 11.0 #L Hematocrit 32.4 #L Mean Corpuscular Volume 88.8 Mean Corpuscular Hemoglobin 30.1 Mean Corpuscular Hemoglobin Concent 34.0 Red Cell Distribution Width 13.5 Platelet Count 295 # Mean Platelet Volume 10.2 Neutrophils % 62.1 Lymphocytes % 14.6 L Monocytes % 13.4 H Eosinophils % 8.2 H Basophils % 1.4 Nucleated Red Blood Cells % 0.0 Neutrophils # 3.6 Lymphocytes # 0.8 Monocytes # 0.8 Eosinophils # 0.5 Basophils # 0.1 Nucleated Red Blood Cells # 0.0 Sodium Level 136 Potassium Level 3.7 Chloride Level 99 Carbon Dioxide Level 29 # Anion Gap 12 # Blood Urea Nitrogen 33 #H Creatinine 1.07 H Glucose Level 107 # Calcium Level 8.5 # Magnesium Level 1.2 L Total Bilirubin 0.6 Direct Bilirubin 0.00 Indirect Bilirubin 0.6 Aspartate Amino Transf (AST/SGOT) 28 Alanine Aminotransferase (ALT/SGPT) 30 Alkaline Phosphatase 75 Total Protein 6.5 # Albumin 3.6 # Globulin 2.90 Albumin/Globulin Ratio 1.24 Medications Medications Current Medications Dextrose ONCE PRN IV POC BLOOD GLUCOSE <250 MG/DL Last administered on 21:38; Admin Dose 50 ML; Start 03/31/17 at 21:30 Sodium Chloride (NS) 1,000 ml @ 125 mls/hr Q8H IV Last administered on 00:25; Admin Dose 125 MLS/HR; Start 04/01/17 at 11:52 Ondansetron HCl (Zofran Inj) 4 mg Q6H PRN IV NAUSEA AND/OR VOMITING Last administered on 04/01/17 16:38; Admin Dose 4 MG; Start 04/01/17 at 12:00 Acetaminophen (Tylenol Tab) 650 mg Q6H PRN PO PAIN LEVEL 1-3 OR FEVER; Start at 12:00 Famotidine (Pepcid) 20 mg Q12 PO Last administered on 04/02/17 09:31; Admin Dose 20 MG; Start 04/01/17 at 21:00 Enoxaparin Sodium (Lovenox) 30 mg DAILY SC Last administered on 04/02/17 09:35 ; Admin Dose 30 MG; Start 04/02/17 at 09:00 Diphenhydramine HCl 25 mg 25 mg Q6H PRN PO ITCHING Last administered on 21:47; Admin Dose 25 MG; Start 04/01/17 at 21:00 Magnesium Sulfate (Magnesium Sulfate 4 Gm/100 ml) 100 ml @ 25 mls/hr ONCE ONCE IVPB Last administered on 04/02/17 13:19; Admin Dose 25 MLS/HR; Start at 13:30; Stop 04/02/17 at 17:29 ROHAN VELÁZQUEZ MD Apr 02, 2017 15:15
--- NOTE | 2017-04-02 16:09 | RADRPT ---
Vent Rate: 88 bpm RR Interval: 0 msec [place] Interval: 130 msec QRS Duration: 66 msec QT Interval: 356 msec QTC Interval: 430 msec P-R-T [place]: 71 - 104 - 82 degrees Normal sinus rhythm with sinus arrhythmia Rightward axis Borderline ECG Electronically Signed By: Christiano iBrd [id number]
--- NOTE | 2017-04-02 17:30 | PN ---
Date/Time of Note Date/Time of Note DATE: 04/02/17 TIME: 17:28 Assessment/Plan VTE Prophylaxis VTE Prophylaxis Intervention: SCD's Lines/Catheters [facility] Portacath Urinary Cath still in place: No Assessment/Plan Assessment/Plan 1. Acute kidney injury. Continue intravenous fluids. Dr. Spain following nephrology consultation. 2. Hyperkalemia, resolved. Continue to monitor potassium. 3. Hyponatremia, resolved. 4. History of Hirschsprung disease with multiple abdominal surgeries in childhood. 5. Ileostomy. Exam/Review of Systems Vital Signs Vitals Vital Signs Date Time Temp Pulse Resp B/P Pulse Ox O2 Delivery O2 Flow Rate FiO2 04/02/17 14:31 98.0 87 19 93/54 99 04/01/17 21:41 Room Air 03/31/17 21:37 21 Intake and Output 04/01/17 04/01/17 04/02/17 15:00 23:00 07:00 Intake Total 250 ml 1425 ml Balance 250 ml 1425 ml Exam Constitutional: alert, oriented Neck: supple Respiratory: normal air movement Cardiovascular: nl pulses Gastrointestinal: non-tender, other (Ileostomy), soft Extremities: normal pulses Additional Comments Right chest permacath Results Result Diagram: 04/02/17 0523 04/02/17 0523 Results 24 hrs Laboratory Tests Test 04/02/17 05:23 White Blood Count 5.8 # Red Blood Count 3.65 #L Hemoglobin 11.0 #L Hematocrit 32.4 #L Mean Corpuscular Volume 88.8 Mean Corpuscular Hemoglobin 30.1 Mean Corpuscular Hemoglobin Concent 34.0 Red Cell Distribution Width 13.5 Platelet Count 295 # Mean Platelet Volume 10.2 Neutrophils % 62.1 Lymphocytes % 14.6 L Monocytes % 13.4 H Eosinophils % 8.2 H Basophils % 1.4 Nucleated Red Blood Cells % 0.0 Neutrophils # 3.6 Lymphocytes # 0.8 Monocytes # 0.8 Eosinophils # 0.5 Basophils # 0.1 Nucleated Red Blood Cells # 0.0 Sodium Level 136 Potassium Level 3.7 Chloride Level 99 Carbon Dioxide Level 29 # Anion Gap 12 # Blood Urea Nitrogen 33 #H Creatinine 1.07 H Glucose Level 107 # Calcium Level 8.5 # Magnesium Level 1.2 L Total Bilirubin 0.6 Direct Bilirubin 0.00 Indirect Bilirubin 0.6 Aspartate Amino Transf (AST/SGOT) 28 Alanine Aminotransferase (ALT/SGPT) 30 Alkaline Phosphatase 75 Total Protein 6.5 # Albumin 3.6 # Globulin 2.90 Albumin/Globulin Ratio 1.24 Medications Medications Current Medications Dextrose ONCE PRN IV POC BLOOD GLUCOSE <250 MG/DL Last administered on 21:38; Admin Dose 50 ML; Start 03/31/17 at 21:30 Sodium Chloride (NS) 1,000 ml @ 80 mls/hr [id number] IV Last administered on 04/02 17:23; Admin Dose 80 MLS/HR; Start 04/01/17 at 11:52 Ondansetron HCl (Zofran Inj) 4 mg Q6H PRN IV NAUSEA AND/OR VOMITING Last administered on 04/01/17 16:38; Admin Dose 4 MG; Start 04/01/17 at 12:00 Acetaminophen (Tylenol Tab) 650 mg Q6H PRN PO PAIN LEVEL 1-3 OR FEVER; Start at 12:00 Famotidine (Pepcid) 20 mg Q12 PO Last administered on 04/02/17 09:31; Admin Dose 20 MG; Start 04/01/17 at 21:00 Enoxaparin Sodium (Lovenox) 30 mg DAILY SC Last administered on 04/02/17 09:35 ; Admin Dose 30 MG; Start 04/02/17 at 09:00 Diphenhydramine HCl 25 mg 25 mg Q6H PRN PO ITCHING Last administered on 21:47; Admin Dose 25 MG; Start 04/01/17 at 21:00 Magnesium Sulfate (Magnesium Sulfate 4 Gm/100 ml) 100 ml @ 25 mls/hr ONCE ONCE IVPB Last administered on 04/02/17 13:19; Admin Dose 25 MLS/HR; Start at 13:30; Stop 04/02/17 at 17:29 ROMI ESPINO Apr 02, 2017 17:30
[2017-04-02 19:43] VITALS: BP 104/60; RESP 20
[2017-04-03] MEDS: DIPHENHYDRAMINE 25 MG CAP PO PRN (00:46)
[2017-04-03 02:00] VITALS: BP 82/53; RESP 18
[2017-04-03 02:27] VITALS: BP 90/55; PULSE 90; RESP 18
[2017-04-03 03:11] LABS: PROTEIN/CREAT RATIO 0.22 RATIO
[2017-04-03 07:28] VITALS: BP_SYST 166; BP_SYST 99; BP_DIAS 54; BP_DIAS 71; RESP 18
[2017-04-03] MEDS: FAMOTIDINE 20 MG TAB PO SCH ×2 (09:22→20:27)
[2017-04-03] MEDS: ENOXAPARIN 30 MG/0.3 ML SYG SC SCH (09:23)
[2017-04-03] MEDS: SOD CHLORIDE 0.9% 1,000 ML IV SCH (09:25)
[2017-04-03 11:06] LABS: BASOPHIL # 0.1 10^3/ul (0.0-0.1); BASOPHILS % 1.1 % (0.0-2.0); EOSINOPHILS # 0.8 10^3/ul (0.0-0.5); EOSINOPHILS % 14.2 % (0.0-7.0); HEMATOCRIT 31.3 % (37.0-47.0); HEMOGLOBIN 10.3 g/dl (12.0-16.0); LYMPHOCYTES # 0.8 10^3/ul (0.8-2.9); LYMPHOCYTES % 14.2 % (15.0-51.0); MEAN CORPUSCULAR HEMOGLOBIN 29.3 pg (29.0-33.0); MEAN CORPUSCULAR HGB CONC 32.9 g/dl (32.0-37.0); MEAN CORPUSCULAR VOLUME 89.2 fl (82.0-101.0); MONOCYTE # 0.6 10^3/ul (0.3-0.9); NEUTROPHIL # 3.3 10^3/ul (1.6-7.5); NEUTROPHILS % 60.3 % (39.0-77.0); PLATELET COUNT 261 10^3/UL (140-415); RED BLOOD COUNT 3.51 10^6/ul (4.20-5.40); RED CELL DISTRIBUTION WIDTH 13.6 % (11.5-14.5); WHITE BLOOD COUNT 5.5 10^3/ul (4.8-10.8)
[2017-04-03 11:19] LABS: CALCIUM 8.9 mg/dl (8.4-10.2); CREATININE 0.79 mg/dl (0.44-1.00)
[2017-04-03 11:46] LABS: POTASSIUM 2.8 mmol/L (3.5-5.1)
--- NOTE | 2017-04-03 12:08 | PN ---
Date/Time of Note Date/Time of Note DATE: 04/03/17 TIME: 12:03 Assessment/Plan VTE Prophylaxis VTE Prophylaxis Intervention: other Lines/Catheters IV [facility] Port a cath Urinary Cath still in place: No Assessment/Plan Assessment/Plan - Acute kidney injury. Continue intravenous fluids. Dr. Spain following nephrology consultation. - Hypokalemia- 2.8 - replace with KCL40 meq x 1, BMP POST KCL infusion - Continue to monitor potassium. - am BMP - Anemia- monitor H/H - Hyponatremia, resolved. 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 - Ileostomy. Further plan of care dw dr Hwang/staff/patient Subjective 24 Hr Interval Summary Free Text/Dictation resting in bed, seems comfortable, denies any abdominal pain,low K- will replace K, check K level -will replace K if needed. dw staff Constitutional: requiring IVF Respiratory: no complaints Cardiovascular: no complaints Gastrointestinal: no complaints Genitourinary: no complaints Musculoskeletal: no complaints Skin: no complaints Exam/Review of Systems Vital Signs Vitals Vital Signs Date Time Temp Pulse Resp B/P Pulse Ox O2 Delivery O2 Flow Rate FiO2 04/03/17 07:28 97.7 91 18 99/54 100 04/03/17 02:27 Room Air 03/31/17 21:37 21 Intake and Output 04/02/17 04/02/17 04/03/17 15:00 23:00 07:00 Intake Total 870 ml 1360 ml Output Total 150 ml 600 ml Balance -150 ml 870 ml 760 ml Exam Constitutional: alert, oriented, well developed Respiratory: clear to auscultation, normal air movement Cardiovascular: nl pulses, regular rate and rhythm Gastrointestinal: non-tender, other (ileostomy intact), soft Musculoskeletal: nl extremities to inspection Extremities: normal pulses 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: nl mental status, nl speech Results Result Diagram: 04/03/17 0930 04/03/17 1030 Results 24 hrs Laboratory Tests Test 04/03/17 02:00 04/03/17 09:30 04/03/17 10:30 Urine Eosinophils % 0.0 Urine Random Creatinine 81.71 Urine Random Sodium 29 L Urine Protein/Creatinine Ratio 0.22 Urine Total Protein 18.0 H White Blood Count 5.5 Red Blood Count 3.51 L Hemoglobin 10.3 L Hematocrit 31.3 L Mean Corpuscular Volume 89.2 Mean Corpuscular Hemoglobin 29.3 Mean Corpuscular Hemoglobin Concent 32.9 Red Cell Distribution Width 13.6 Platelet Count 261 Mean Platelet Volume 10.0 Neutrophils % 60.3 Lymphocytes % 14.2 L Monocytes % 10.0 Eosinophils % 14.2 H Basophils % 1.1 Nucleated Red Blood Cells % 0.0 Neutrophils # 3.3 Lymphocytes # 0.8 Monocytes # 0.6 Eosinophils # 0.8 H Basophils # 0.1 Nucleated Red Blood Cells # 0.0 Sodium Level 137 Potassium Level 2.8 *L Chloride Level 102 Carbon Dioxide Level 29 Anion Gap 9 Blood Urea Nitrogen 16 # Creatinine 0.79 Glucose Level 87 Calcium Level 8.9 Medications Medications Current Medications Dextrose ONCE PRN IV POC BLOOD GLUCOSE <250 MG/DL Last administered on 21:38; Admin Dose 50 ML; Start 03/31/17 at 21:30 Sodium Chloride (NS) 1,000 ml @ 80 mls/hr [id number] IV Last administered on 04/03 09:25; Admin Dose 80 MLS/HR; Start 04/01/17 at 11:52 Ondansetron HCl (Zofran Inj) 4 mg Q6H PRN IV NAUSEA AND/OR VOMITING Last administered on 04/01/17 16:38; Admin Dose 4 MG; Start 04/01/17 at 12:00 Acetaminophen (Tylenol Tab) 650 mg Q6H PRN PO PAIN LEVEL 1-3 OR FEVER; Start at 12:00 Famotidine (Pepcid) 20 mg Q12 PO Last administered on 04/03/17 09:22; Admin Dose 20 MG; Start 04/01/17 at 21:00 Enoxaparin Sodium (Lovenox) 30 mg DAILY SC Last administered on 04/03/17 09:23 ; Admin Dose 30 MG; Start 04/02/17 at 09:00 Diphenhydramine HCl (Benadryl) 25 mg Q6H PRN PO ITCHING Last administered on 00:46; Admin Dose 25 MG; Start 04/01/17 at 21:00 DEVENDRA GOMES Apr 03, 2017 12:08
[2017-04-03] MEDS ORDERED: POTASSIUM CHLORIDE 250 ML IVPB SCH (13:00)
[2017-04-03 14:14] VITALS: BP 117/54; RESP 18
--- NOTE | 2017-04-03 15:35 | CONS ---
Date/Time of Note Date/Time of Note DATE: 04/03/17 TIME: 15:33 Assessment/Plan Assessment/Plan Additional Assessment/Plan 1. acute kidney injury due to severe prerenal azotemia- Cr improving with IVF hydration 2. Hyperkalemia- Improved to normal with treatment 3. hypercalcemia 2/2 severe dehydration now normal 4. Metaboilc acidosis due to azotemia and dehydration 5. H/o Hirschsprung disesae 6. Hypomagnesemia Plan : K low 2.8- KCL replacement ordered for today Mag normal today will start KCl 20mEQ BID and Mag 64 BID no need for CKD work up since she has been admitted multiple times in past and she is known to me Monitor electrolytes and replace as needed will follow up Consultation Date/Type/Reason Admit Date/Time Apr 01, 2017 at 08:19 Initial Consult Date 04/01/17 Type of Consultation: NEPHROLOGY Referring Provider: CARLOS RODRIGUEZ MD Exam/Review of Systems Vital Signs Vitals Vital Signs Date Time Temp Pulse Resp B/P Pulse Ox O2 Delivery O2 Flow Rate FiO2 04/03/17 14:14 97.4 99 18 117/54 100 04/03/17 02:27 Room Air 03/31/17 21:37 21 Intake and Output 04/02/17 04/02/17 04/03/17 15:00 23:00 07:00 Intake Total 870 ml 1360 ml Output Total 150 ml 600 ml Balance -150 ml 870 ml 760 ml Results Result Diagram: 04/03/17 0930 04/03/17 1030 Results 24 hrs Laboratory Tests Test 04/03/17 02:00 04/03/17 09:30 04/03/17 10:30 04/03/17 11:30 Urine Eosinophils % 0.0 Urine Random Creatinine 81.71 Urine Random Sodium 29 L Urine Protein/Creatinine Ratio 0.22 Urine Total Protein 18.0 H White Blood Count 5.5 Red Blood Count 3.51 L Hemoglobin 10.3 L Hematocrit 31.3 L Mean Corpuscular Volume 89.2 Mean Corpuscular Hemoglobin 29.3 Mean Corpuscular Hemoglobin Concent 32.9 Red Cell Distribution Width 13.6 Platelet Count 261 Mean Platelet Volume 10.0 Neutrophils % 60.3 Lymphocytes % 14.2 L Monocytes % 10.0 Eosinophils % 14.2 H Basophils % 1.1 Nucleated Red Blood Cells % 0.0 Neutrophils # 3.3 Lymphocytes # 0.8 Monocytes # 0.6 Eosinophils # 0.8 H Basophils # 0.1 Nucleated Red Blood Cells # 0.0 Sodium Level 137 Potassium Level 2.8 *L Chloride Level 102 Carbon Dioxide Level 29 Anion Gap 9 Blood Urea Nitrogen 16 # Creatinine 0.79 Glucose Level 87 Calcium Level 8.9 Magnesium Level 1.9 Medications Medications Current Medications Dextrose ONCE PRN IV POC BLOOD GLUCOSE <250 MG/DL Last administered on 21:38; Admin Dose 50 ML; Start 03/31/17 at 21:30 Sodium Chloride (NS) 1,000 ml @ 80 mls/hr [id number] IV Last administered on 04/03 09:25; Admin Dose 80 MLS/HR; Start 04/01/17 at 11:52 Ondansetron HCl (Zofran Inj) 4 mg Q6H PRN IV NAUSEA AND/OR VOMITING Last administered on 04/01/17 16:38; Admin Dose 4 MG; Start 04/01/17 at 12:00 Acetaminophen (Tylenol Tab) 650 mg Q6H PRN PO PAIN LEVEL 1-3 OR FEVER; Start at 12:00 Famotidine (Pepcid) 20 mg Q12 PO Last administered on 04/03/17 09:22; Admin Dose 20 MG; Start 04/01/17 at 21:00 Enoxaparin Sodium (Lovenox) 30 mg DAILY SC Last administered on 04/03/17 09:23 ; Admin Dose 30 MG; Start 04/02/17 at 09:00 Diphenhydramine HCl 25 mg 25 mg Q6H PRN PO ITCHING Last administered on 00:46; Admin Dose 25 MG; Start 04/01/17 at 21:00 Potassium Chloride (KCl 40 MEQ/250 ML NS) 250 ml @ 62.5 mls/hr ONCE IVPB Last administered on 04/03/17 14:12; Admin Dose 62.5 MLS/HR; Start 04/03/17 at 13:00 ; Stop 04/03/17 at 16:59 ROHAN VELÁZQUEZ MD Apr 03, 2017 15:35
[2017-04-03 19:51] VITALS: BP 101/51; RESP 18
[2017-04-03] MEDS: MAGNESIUM CHLORIDE (SR) 64 MG TAB PO SCH (20:27)
[2017-04-03] MEDS: POTASSIUM CHLORIDE (SR) 20 MEQ TAB PO SCH (20:28)
[2017-04-03 23:24] LABS: CALCIUM 8.7 mg/dl (8.4-10.2); CREATININE 0.77 mg/dl (0.44-1.00); POTASSIUM 4.7 mmol/L (3.5-5.1)
[2017-04-04] MEDS: DIPHENHYDRAMINE 25 MG CAP PO PRN ×2 (00:09→23:36)
[2017-04-04 02:00] VITALS: BP 94/54; RESP 18
[2017-04-04] MEDS: SOD CHLORIDE 0.9% 1,000 ML IV SCH ×2 (03:30→17:38)
[2017-04-04 06:13] LABS: BASOPHIL # 0.1 10^3/ul (0.0-0.1); EOSINOPHILS # 0.9 10^3/ul (0.0-0.5); EOSINOPHILS % 18.7 % (0.0-7.0); HEMATOCRIT 29.6 % (37.0-47.0); HEMOGLOBIN 9.9 g/dl (12.0-16.0); LYMPHOCYTES # 0.8 10^3/ul (0.8-2.9); LYMPHOCYTES % 16.9 % (15.0-51.0); MEAN CORPUSCULAR HEMOGLOBIN 29.9 pg (29.0-33.0); MEAN CORPUSCULAR HGB CONC 33.4 g/dl (32.0-37.0); MEAN CORPUSCULAR VOLUME 89.4 fl (82.0-101.0); MEAN PLATELET VOLUME 10.2 fl (7.4-10.4); MONOCYTE # 0.5 10^3/ul (0.3-0.9); MONOCYTES % 9.9 % (0.0-11.0); NEUTROPHIL # 2.6 10^3/ul (1.6-7.5); NEUTROPHILS % 53.1 % (39.0-77.0); PLATELET COUNT 238 10^3/UL (140-415); RED BLOOD COUNT 3.31 10^6/ul (4.20-5.40); RED CELL DISTRIBUTION WIDTH 13.1 % (11.5-14.5); WHITE BLOOD COUNT 4.9 10^3/ul (4.8-10.8)
[2017-04-04 06:56] LABS: CALCIUM 9.2 mg/dl (8.4-10.2); CREATININE 0.74 mg/dl (0.44-1.00); POTASSIUM 3.8 mmol/L (3.5-5.1)
[2017-04-04 07:36] VITALS: BP 88/53; RESP 16
[2017-04-04] MEDS: MAGNESIUM CHLORIDE (SR) 64 MG TAB PO SCH ×2 (09:14→20:01)
[2017-04-04] MEDS: FAMOTIDINE 20 MG TAB PO SCH ×2 (09:14→20:01)
[2017-04-04] MEDS: POTASSIUM CHLORIDE (SR) 20 MEQ TAB PO SCH ×2 (09:14→20:01)
[2017-04-04] MEDS: ENOXAPARIN 30 MG/0.3 ML SYG SC SCH (09:16)
[2017-04-04 09:27] VITALS: BP 95/56; PULSE 89
[2017-04-04] MEDS ORDERED: MAGNESIUM SULFATE 4 GM/100 ML 100 ML IVPB ONE (12:00)
[2017-04-04 14:00] VITALS: BP 94/55; RESP 18
--- NOTE | 2017-04-04 14:32 | CONS ---
Date/Time of Note Date/Time of Note DATE: 04/04/17 TIME: 14:31 Assessment/Plan Assessment/Plan Additional Assessment/Plan 1. acute kidney injury due to severe prerenal azotemia- Cr improving with IVF hydration 2. Hyperkalemia- Improved to normal with treatment 3. hypercalcemia 2/2 severe dehydration now normal 4. Metaboilc acidosis due to azotemia and dehydration 5. H/o Hirschsprung disesae 6. Hypomagnesemia Plan : K stable today, Mag low - w ill give Magnesium sulfate 4 gram IV x 1 today on KCl 20mEQ BID and Mag 64 BID no need for CKD work up since she has been admitted multiple times in past and she is known to me Monitor electrolytes and replace as needed will follow up Consultation Date/Type/Reason Admit Date/Time Apr 01, 2017 at 08:19 Initial Consult Date 04/01/17 Type of Consultation: NEPHROLOGY Referring Provider: CARLOS RODRIGUEZ MD 24 HR Interval Summary Free Text/Dictation Mag low Exam/Review of Systems Vital Signs Vitals Vital Signs Date Time Temp Pulse Resp B/P Pulse Ox O2 Delivery O2 Flow Rate FiO2 04/04/17 09:27 89 95/56 04/04/17 07:36 98.7 16 100 04/03/17 02:27 Room Air 03/31/17 21:37 21 Intake and Output 04/03/17 04/03/17 04/04/17 15:00 23:00 07:00 Intake Total 2050 ml 1110 ml Output Total 1150 ml 850 ml Balance 900 ml 260 ml Exam Constitutional: alert Respiratory: clear to auscultation, normal air movement Cardiovascular: regular rate and rhythm Gastrointestinal: firm, soft, tender Musculoskeletal: nl extremities to inspection Extremities: normal pulses 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, nl mental status, nl speech, nl strength Results Result Diagram: 04/04/17 0534 04/04/17 0534 Results 24 hrs Laboratory Tests Test 04/03/17 20:22 04/04/17 05:34 Sodium Level 137 137 Potassium Level 4.7 3.8 Chloride Level 106 109 Carbon Dioxide Level 27 27 Anion Gap 9 5 L Blood Urea Nitrogen 21 H 18 Creatinine 0.77 0.74 Glucose Level 136 # 77 # Calcium Level 8.7 9.2 White Blood Count 4.9 Red Blood Count 3.31 L Hemoglobin 9.9 L Hematocrit 29.6 L Mean Corpuscular Volume 89.4 Mean Corpuscular Hemoglobin 29.9 Mean Corpuscular Hemoglobin Concent 33.4 Red Cell Distribution Width 13.1 Platelet Count 238 Mean Platelet Volume 10.2 Neutrophils % 53.1 Lymphocytes % 16.9 Monocytes % 9.9 Eosinophils % 18.7 H Basophils % 1.0 Nucleated Red Blood Cells % 0.0 Neutrophils # 2.6 Lymphocytes # 0.8 Monocytes # 0.5 Eosinophils # 0.9 H Basophils # 0.1 Nucleated Red Blood Cells # 0.0 Magnesium Level 1.3 L Medications Medications Current Medications Dextrose ONCE PRN IV POC BLOOD GLUCOSE <250 MG/DL Last administered on 21:38; Admin Dose 50 ML; Start 03/31/17 at 21:30 Sodium Chloride (NS) 1,000 ml @ 80 mls/hr [id number] IV Last administered on 04/04 03:30; Admin Dose 80 MLS/HR; Start 04/01/17 at 11:52 Ondansetron HCl (Zofran Inj) 4 mg Q6H PRN IV NAUSEA AND/OR VOMITING Last administered on 04/01/17 16:38; Admin Dose 4 MG; Start 04/01/17 at 12:00 Acetaminophen (Tylenol Tab) 650 mg Q6H PRN PO PAIN LEVEL 1-3 OR FEVER; Start at 12:00 Famotidine (Pepcid) 20 mg Q12 PO Last administered on 04/04/17 09:14; Admin Dose 20 MG; Start 04/01/17 at 21:00 Enoxaparin Sodium (Lovenox) 30 mg DAILY SC Last administered on 04/04/17 09:16 ; Admin Dose 30 MG; Start 04/02/17 at 09:00 Diphenhydramine HCl (Benadryl) 25 mg Q6H PRN PO ITCHING Last administered on 00:09; Admin Dose 25 MG; Start 04/01/17 at 21:00 Potassium Chloride (Klor-Con 20) 20 meq BID PO Last administered on 04/04/17 09:14; Admin Dose 20 MEQ; Start 04/03/17 at 21:00 Magnesium Chloride 64 mg 64 mg BID PO Last administered on 04/04/17 09:14; Admin Dose 64 MG; Start 04/03/17 at 21:00 Magnesium Sulfate (Magnesium Sulfate 4 Gm/100 ml) 100 ml @ 25 mls/hr ONCE ONCE IVPB Last administered on 04/04/17 12:20; Admin Dose 25 MLS/HR; Start at 12:00; Stop 04/04/17 at 15:59 ROHAN VELÁZQUEZ MD Apr 04, 2017 14:32
--- NOTE | 2017-04-04 16:22 | PN ---
Date/Time of Note Date/Time of Note DATE: 04/04/17 TIME: 16:20 Assessment/Plan VTE Prophylaxis VTE Prophylaxis Intervention: SCD's Lines/Catheters IV C[facility]ter Type (from [facility] portacath Urinary Cath still in place: No Assessment/Plan Chief Complaint/Hosp Course Patient remains afebrile denies any nausea and vomiting, magnesium is 1.3 replaced. Continue to monitor electrolytes. Assessment/Plan - Acute kidney injury, resolved, continue intravenous fluids. Dr. Spain following nephrology consultation. - Hypomagnesemia, magnesium replaced. - Hyperkalemia, resolved. Continue to monitor potassium. - Hyponatremia, resolved. 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 - Ileostomy. Further recommendations based on clinical course. Plan of care discussed with Dr. Paez Problems: Exam/Review of Systems Vital Signs Vitals Vital Signs Date Time Temp Pulse Resp B/P Pulse Ox O2 Delivery O2 Flow Rate FiO2 04/04/17 14:00 98.2 94 18 94/55 96 04/03/17 02:27 Room Air 03/31/17 21:37 21 Intake and Output 04/03/17 04/03/17 04/04/17 15:00 23:00 07:00 Intake Total 2050 ml 1110 ml Output Total 1150 ml 850 ml Balance 900 ml 260 ml Exam Constitutional: alert, oriented Neck: supple Respiratory: normal air movement Cardiovascular: nl pulses Gastrointestinal: non-tender, other (Ileostomy), soft Extremities: normal pulses Additional Comments Right chest permacath Results Result Diagram: 04/04/17 0534 04/04/17 0534 Results 24 hrs Laboratory Tests Test 04/03/17 20:22 04/04/17 05:34 Sodium Level 137 137 Potassium Level 4.7 3.8 Chloride Level 106 109 Carbon Dioxide Level 27 27 Anion Gap 9 5 L Blood Urea Nitrogen 21 H 18 Creatinine 0.77 0.74 Glucose Level 136 # 77 # Calcium Level 8.7 9.2 White Blood Count 4.9 Red Blood Count 3.31 L Hemoglobin 9.9 L Hematocrit 29.6 L Mean Corpuscular Volume 89.4 Mean Corpuscular Hemoglobin 29.9 Mean Corpuscular Hemoglobin Concent 33.4 Red Cell Distribution Width 13.1 Platelet Count 238 Mean Platelet Volume 10.2 Neutrophils % 53.1 Lymphocytes % 16.9 Monocytes % 9.9 Eosinophils % 18.7 H Basophils % 1.0 Nucleated Red Blood Cells % 0.0 Neutrophils # 2.6 Lymphocytes # 0.8 Monocytes # 0.5 Eosinophils # 0.9 H Basophils # 0.1 Nucleated Red Blood Cells # 0.0 Magnesium Level 1.3 L Medications Medications Current Medications Dextrose ONCE PRN IV POC BLOOD GLUCOSE <250 MG/DL Last administered on 21:38; Admin Dose 50 ML; Start 03/31/17 at 21:30 Sodium Chloride (NS) 1,000 ml @ 80 mls/hr [id number] IV Last administered on 04/04 03:30; Admin Dose 80 MLS/HR; Start 04/01/17 at 11:52 Ondansetron HCl (Zofran Inj) 4 mg Q6H PRN IV NAUSEA AND/OR VOMITING Last administered on 04/01/17 16:38; Admin Dose 4 MG; Start 04/01/17 at 12:00 Acetaminophen (Tylenol Tab) 650 mg Q6H PRN PO PAIN LEVEL 1-3 OR FEVER; Start at 12:00 Famotidine (Pepcid) 20 mg Q12 PO Last administered on 04/04/17 09:14; Admin Dose 20 MG; Start 04/01/17 at 21:00 Enoxaparin Sodium (Lovenox) 30 mg DAILY SC Last administered on 04/04/17 09:16 ; Admin Dose 30 MG; Start 04/02/17 at 09:00 Diphenhydramine HCl (Benadryl) 25 mg Q6H PRN PO ITCHING Last administered on 00:09; Admin Dose 25 MG; Start 04/01/17 at 21:00 Potassium Chloride (Klor-Con 20) 20 meq BID PO Last administered on 04/04/17 09:14; Admin Dose 20 MEQ; Start 04/03/17 at 21:00 Magnesium Chloride (Mag 64) 64 mg BID PO Last administered on 04/04/17 09:14; Admin Dose 64 MG; Start 04/03/17 at 21:00 ROMI ESPINO Apr 04, 2017 16:22
[2017-04-04 19:19] VITALS: BP 102/54; RESP 18
[2017-04-04 20:00] VITALS: PULSE 93
[2017-04-05 01:28] VITALS: BP 90/54; RESP 18
[2017-04-05 06:13] LABS: BASOPHIL # 0.1 10^3/ul (0.0-0.1); BASOPHILS % 1.4 % (0.0-2.0); EOSINOPHILS # 1.1 10^3/ul (0.0-0.5); EOSINOPHILS % 17.5 % (0.0-7.0); HEMATOCRIT 29.1 % (37.0-47.0); HEMOGLOBIN 9.8 g/dl (12.0-16.0); LYMPHOCYTES # 0.7 10^3/ul (0.8-2.9); LYMPHOCYTES % 10.4 % (15.0-51.0); MEAN CORPUSCULAR HEMOGLOBIN 30.2 pg (29.0-33.0); MEAN CORPUSCULAR HGB CONC 33.7 g/dl (32.0-37.0); MEAN CORPUSCULAR VOLUME 89.8 fl (82.0-101.0); MEAN PLATELET VOLUME 10.2 fl (7.4-10.4); MONOCYTE # 0.5 10^3/ul (0.3-0.9); MONOCYTES % 7.2 % (0.0-11.0); NEUTROPHILS % 63.3 % (39.0-77.0); PLATELET COUNT 241 10^3/UL (140-415); RED BLOOD COUNT 3.24 10^6/ul (4.20-5.40); RED CELL DISTRIBUTION WIDTH 13.1 % (11.5-14.5); WHITE BLOOD COUNT 6.2 10^3/ul (4.8-10.8)
[2017-04-05 07:30] LABS: CALCIUM 8.7 mg/dl (8.4-10.2); CREATININE 0.75 mg/dl (0.44-1.00); MAGNESIUM 1.7 mg/dl (1.7-2.5); POTASSIUM 3.6 mmol/L (3.5-5.1)
[2017-04-05 07:50] VITALS: BP 106/52; RESP 16
[2017-04-05] MEDS: MAGNESIUM CHLORIDE (SR) 64 MG TAB PO SCH ×2 (09:05→20:29)
[2017-04-05] MEDS: POTASSIUM CHLORIDE (SR) 20 MEQ TAB PO SCH ×2 (09:05→20:30)
[2017-04-05] MEDS: FAMOTIDINE 20 MG TAB PO SCH ×2 (09:05→20:29)
[2017-04-05] MEDS: SOD CHLORIDE 0.9% 1,000 ML IV SCH ×2 (09:06→21:58)
[2017-04-05] MEDS: ENOXAPARIN 30 MG/0.3 ML SYG SC SCH (09:12)
[2017-04-05 14:00] VITALS: BP 109/51; RESP 18
--- NOTE | 2017-04-05 17:53 | PN ---
Date/Time of Note Date/Time of Note DATE: 04/05/17 TIME: 17:50 Assessment/Plan VTE Prophylaxis VTE Prophylaxis Intervention: SCD's Lines/Catheters IV Catheter Type (from [facility]): portacath Urinary Cath still in place: No Assessment/Plan Assessment/Plan - Acute kidney injury, resolved, continue intravenous fluids. Dr. Spain following nephrology consultation. - Hypomagnesemia- resolved - Hyperkalemia, resolved. Continue to monitor potassium. - Hyponatremia, resolved. 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 - Ileostomy. Further recommendations based on clinical course. Plan of care discussed with Dr. Paez Subjective 24 Hr Interval Summary Free Text/Dictation afebrile, vss, Mg and K wnl, feels better, dw staff- no new events reported overnight. Respiratory: no complaints Cardiovascular: no complaints Gastrointestinal: no complaints Genitourinary: no complaints Musculoskeletal: no complaints Exam/Review of Systems Vital Signs Vitals Vital Signs Date Time Temp Pulse Resp B/P Pulse Ox O2 Delivery O2 Flow Rate FiO2 04/05/17 14:00 98.5 88 18 109/51 97 04/03/17 02:27 Room Air Intake and Output 04/04/17 04/04/17 04/05/17 15:00 23:00 07:00 Intake Total 2230 ml 1440 ml Output Total 1000 ml 2080 ml Balance 1230 ml -640 ml Exam Constitutional: alert, oriented Respiratory: clear to auscultation, normal air movement Cardiovascular: nl pulses, regular rate and rhythm Gastrointestinal: non-tender, other (ileostomy intact), soft Musculoskeletal: nl extremities to inspection Extremities: normal pulses 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: nl mental status, nl speech Results Result Diagram: 04/05/1752104/05/17521 Results 24 hrs Laboratory Tests Test 04/05/17 05:22 White Blood Count 6.2 # Red Blood Count 3.24 L Hemoglobin 9.8 L Hematocrit 29.1 L Mean Corpuscular Volume 89.8 Mean Corpuscular Hemoglobin 30.2 Mean Corpuscular Hemoglobin Concent 33.7 Red Cell Distribution Width 13.1 Platelet Count 241 Mean Platelet Volume 10.2 Neutrophils % 63.3 Lymphocytes % 10.4 L Monocytes % 7.2 Eosinophils % 17.5 H Basophils % 1.4 Nucleated Red Blood Cells % 0.0 Neutrophils # 4.0 Lymphocytes # 0.7 L Monocytes # 0.5 Eosinophils # 1.1 H Basophils # 0.1 Nucleated Red Blood Cells # 0.0 Sodium Level 141 Potassium Level 3.6 Chloride Level 109 Carbon Dioxide Level 28 Anion Gap 8 Blood Urea Nitrogen 16 Creatinine 0.75 Glucose Level 91 Calcium Level 8.7 Magnesium Level 1.7 Medications Medications Current Medications Dextrose ONCE PRN IV POC BLOOD GLUCOSE <250 MG/DL Last administered on 21:38; Admin Dose 50 ML; Start 03/31/17 at 21:30 Sodium Chloride (NS) 1,000 ml @ 80 mls/hr [id number] IV Last administered on 04/05 09:06; Admin Dose 80 MLS/HR; Start 04/01/17 at 11:52 Ondansetron HCl (Zofran Inj) 4 mg Q6H PRN IV NAUSEA AND/OR VOMITING Last administered on 04/01/17 16:38; Admin Dose 4 MG; Start 04/01/17 at 12:00 Acetaminophen (Tylenol Tab) 650 mg Q6H PRN PO PAIN LEVEL 1-3 OR FEVER; Start at 12:00 Famotidine (Pepcid) 20 mg Q12 PO Last administered on 04/05/17 09:05; Admin Dose 20 MG; Start 04/01/17 at 21:00 Enoxaparin Sodium (Lovenox) 30 mg DAILY SC Last administered on 04/05/17 09:12 ; Admin Dose 30 MG; Start 04/02/17 at 09:00 Diphenhydramine HCl (Benadryl) 25 mg Q6H PRN PO ITCHING Last administered on 23:36; Admin Dose 25 MG; Start 04/01/17 at 21:00 Potassium Chloride (Klor-Con 20) 20 meq BID PO Last administered on 04/05/17 09:05; Admin Dose 20 MEQ; Start 04/03/17 at 21:00 Magnesium Chloride (Mag 64) 64 mg BID PO Last administered on 04/05/17 09:05; Admin Dose 64 MG; Start 04/03/17 at 21:00 DEVENDRA GOMES Apr 05, 2017 17:53
--- NOTE | 2017-04-05 18:21 | CONS ---
Date/Time of Note Date/Time of Note DATE: 04/05/17 TIME: 18:20 Assessment/Plan Assessment/Plan Additional Assessment/Plan 1. acute kidney injury due to severe prerenal azotemia- Cr improving with IVF hydration 2. Hyperkalemia- Improved to normal with treatment 3. hypercalcemia 2/2 severe dehydration now normal 4. Metaboilc acidosis due to azotemia and dehydration 5. H/o Hirschsprung disesae 6. Hypomagnesemia Plan : Cr and electorlytes stabel today on KCl 20mEQ BID and Mag 64 BID no need for CKD work up since she has been admitted multiple times in past and she is known to me Monitor electrolytes and replace as needed will follow up Consultation Date/Type/Reason Admit Date/Time Apr 01, 2017 at 08:19 Initial Consult Date 04/01/17 Type of Consultation: NEPHROLOGY Referring Provider: CARLOS RODRIGUEZ MD 24 HR Interval Summary Free Text/Dictation Cr and electrolytes stable Exam/Review of Systems Vital Signs Vitals Vital Signs Date Time Temp Pulse Resp B/P Pulse Ox O2 Delivery O2 Flow Rate FiO2 04/05/17 14:00 98.5 88 18 109/51 97 04/03/17 02:27 Room Air Intake and Output 04/04/17 04/04/17 04/05/17 15:00 23:00 07:00 Intake Total 2230 ml 1440 ml Output Total 1000 ml 2080 ml Balance 1230 ml -640 ml Results Result Diagram: 04/05/17 0522 04/05/17 0522 Results 24 hrs Laboratory Tests Test 04/05/17 05:22 White Blood Count 6.2 # Red Blood Count 3.24 L Hemoglobin 9.8 L Hematocrit 29.1 L Mean Corpuscular Volume 89.8 Mean Corpuscular Hemoglobin 30.2 Mean Corpuscular Hemoglobin Concent 33.7 Red Cell Distribution Width 13.1 Platelet Count 241 Mean Platelet Volume 10.2 Neutrophils % 63.3 Lymphocytes % 10.4 L Monocytes % 7.2 Eosinophils % 17.5 H Basophils % 1.4 Nucleated Red Blood Cells % 0.0 Neutrophils # 4.0 Lymphocytes # 0.7 L Monocytes # 0.5 Eosinophils # 1.1 H Basophils # 0.1 Nucleated Red Blood Cells # 0.0 Sodium Level 141 Potassium Level 3.6 Chloride Level 109 Carbon Dioxide Level 28 Anion Gap 8 Blood Urea Nitrogen 16 Creatinine 0.75 Glucose Level 91 Calcium Level 8.7 Magnesium Level 1.7 Medications Medications Current Medications Dextrose ONCE PRN IV POC BLOOD GLUCOSE <250 MG/DL Last administered on 21:38; Admin Dose 50 ML; Start 03/31/17 at 21:30 Sodium Chloride (NS) 1,000 ml @ 80 mls/hr [id number] IV Last administered on 04/05 09:06; Admin Dose 80 MLS/HR; Start 04/01/17 at 11:52 Ondansetron HCl (Zofran Inj) 4 mg Q6H PRN IV NAUSEA AND/OR VOMITING Last administered on 04/01/17 16:38; Admin Dose 4 MG; Start 04/01/17 at 12:00 Acetaminophen (Tylenol Tab) 650 mg Q6H PRN PO PAIN LEVEL 1-3 OR FEVER; Start at 12:00 Famotidine (Pepcid) 20 mg Q12 PO Last administered on 04/05/17 09:05; Admin Dose 20 MG; Start 04/01/17 at 21:00 Enoxaparin Sodium (Lovenox) 30 mg DAILY SC Last administered on 04/05/17 09:12 ; Admin Dose 30 MG; Start 04/02/17 at 09:00 Diphenhydramine HCl (Benadryl) 25 mg Q6H PRN PO ITCHING Last administered on 23:36; Admin Dose 25 MG; Start 04/01/17 at 21:00 Potassium Chloride (Klor-Con 20) 20 meq BID PO Last administered on 04/05/17 09:05; Admin Dose 20 MEQ; Start 04/03/17 at 21:00 Magnesium Chloride (Mag 64) 64 mg BID PO Last administered on 04/05/17 09:05; Admin Dose 64 MG; Start 04/03/17 at 21:00 ROHAN VELÁZQUEZ MD Apr 05, 2017 18:21
[2017-04-05 19:25] VITALS: BP 100/57; RESP 18
[2017-04-05 20:30] VITALS: PULSE 89
[2017-04-05] MEDS: DIPHENHYDRAMINE 25 MG CAP PO PRN (21:55)
[2017-04-06] MEDS ORDERED: FLUCONAZOLE 200 MG TAB PO ONE (00:30)
[2017-04-06] MEDS: SOD CHLORIDE 0.9% 1,000 ML IV SCH ×2 (01:32→11:33)
[2017-04-06 02:00] VITALS: BP 90/50; RESP 18
[2017-04-06 06:23] LABS: BASOPHIL # 0.1 10^3/ul (0.0-0.1); BASOPHILS % 1.2 % (0.0-2.0); EOSINOPHILS # 1.1 10^3/ul (0.0-0.5); EOSINOPHILS % 19.4 % (0.0-7.0); HEMATOCRIT 29.2 % (37.0-47.0); HEMOGLOBIN 9.6 g/dl (12.0-16.0); LYMPHOCYTES # 0.8 10^3/ul (0.8-2.9); LYMPHOCYTES % 13.6 % (15.0-51.0); MEAN CORPUSCULAR HEMOGLOBIN 29.4 pg (29.0-33.0); MEAN CORPUSCULAR HGB CONC 32.9 g/dl (32.0-37.0); MEAN CORPUSCULAR VOLUME 89.3 fl (82.0-101.0); MEAN PLATELET VOLUME 10.4 fl (7.4-10.4); MONOCYTE # 0.5 10^3/ul (0.3-0.9); MONOCYTES % 8.3 % (0.0-11.0); NEUTROPHIL # 3.3 10^3/ul (1.6-7.5); PLATELET COUNT 253 10^3/UL (140-415); RED BLOOD COUNT 3.27 10^6/ul (4.20-5.40); RED CELL DISTRIBUTION WIDTH 13.1 % (11.5-14.5); WHITE BLOOD COUNT 5.9 10^3/ul (4.8-10.8)
[2017-04-06 06:53] LABS: CALCIUM 8.9 mg/dl (8.4-10.2); CREATININE 0.82 mg/dl (0.44-1.00); POTASSIUM 3.8 mmol/L (3.5-5.1)
[2017-04-06 07:32] VITALS: BP 89/56; RESP 18
[2017-04-06] MEDS: POTASSIUM CHLORIDE (SR) 20 MEQ TAB PO SCH ×2 (09:07→20:42)
[2017-04-06] MEDS: FAMOTIDINE 20 MG TAB PO SCH ×2 (09:07→20:41)
[2017-04-06] MEDS: HYDROCORTISONE 0.5% 28.35 GM CR TOP SCH ×3 (09:07→20:42)
[2017-04-06] MEDS: MAGNESIUM CHLORIDE (SR) 64 MG TAB PO SCH ×2 (09:07→20:41)
[2017-04-06] MEDS: ENOXAPARIN 30 MG/0.3 ML SYG SC SCH (09:14)
--- NOTE | 2017-04-06 13:07 | CONS ---
Date/Time of Note Date/Time of Note DATE: 04/06/17 TIME: 13:04 Assessment/Plan Assessment/Plan Additional Assessment/Plan 1. acute kidney injury due to severe prerenal azotemia- Cr improving with IVF hydration 2. Hyperkalemia- Improved to normal with treatment 3. hypercalcemia 2/2 severe dehydration now normal 4. Metaboilc acidosis due to azotemia and dehydration 5. H/o Hirschsprung disesae 6. Hypomagnesemia Plan : Cr and electorlytes stable today on KCl 20mEQ BID and Mag 64 BID no need for CKD work up since she has been admitted multiple times in past and she is known to me Monitor electrolytes and replace as needed will follow up Consultation Date/Type/Reason Admit Date/Time Apr 01, 2017 at 08:19 Initial Consult Date 04/01/17 Type of Consultation: NEPHROLOGY Referring Provider: CARLOS RODRIGUEZ MD 24 HR Interval Summary Free Text/Dictation pt stable,electrolytes and cr stable, No chest pain Exam/Review of Systems Vital Signs Vitals Vital Signs Date Time Temp Pulse Resp B/P Pulse Ox O2 Delivery O2 Flow Rate FiO2 04/06/17 07:32 98.2 92 18 89/56 99 04/03/17 02:27 Room Air Intake and Output 04/05/17 04/05/17 04/06/17 15:00 23:00 07:00 Intake Total 200 ml 2540 ml 595 ml Output Total 1100 ml Balance 200 ml 1440 ml 595 ml Exam Constitutional: alert Psych: no complaints Head: normocephalic Eyes: nl conjunctiva ENMT: nl external ears & nose Neck: non-tender, supple Respiratory: clear to auscultation, diminished breath sounds, normal air movement Cardiovascular: nl pulses, regular rate and rhythm Musculoskeletal: nl extremities to inspection 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: SURVEILLANCE SYSTEMS ENGINEER II-XII intact, nl mental status, nl speech, nl strength Results Result Diagram: 04/06/1712 04/06/17 0512 Results 24 hrs Laboratory Tests Test 04/06/17 05:12 White Blood Count 5.9 Red Blood Count 3.27 L Hemoglobin 9.6 L Hematocrit 29.2 L Mean Corpuscular Volume 89.3 Mean Corpuscular Hemoglobin 29.4 Mean Corpuscular Hemoglobin Concent 32.9 Red Cell Distribution Width 13.1 Platelet Count 253 Mean Platelet Volume 10.4 Neutrophils % 57.0 Lymphocytes % 13.6 L Monocytes % 8.3 Eosinophils % 19.4 H Basophils % 1.2 Nucleated Red Blood Cells % 0.0 Neutrophils # 3.3 Lymphocytes # 0.8 Monocytes # 0.5 Eosinophils # 1.1 H Basophils # 0.1 Nucleated Red Blood Cells # 0.0 Sodium Level 143 Potassium Level 3.8 Chloride Level 106 Carbon Dioxide Level 33 H Anion Gap 8 Blood Urea Nitrogen 22 H Creatinine 0.82 Glucose Level 82 Calcium Level 8.9 Medications Medications Current Medications Dextrose ONCE PRN IV POC BLOOD GLUCOSE <250 MG/DL Last administered on 21:38; Admin Dose 50 ML; Start 03/31/17 at 21:30 Sodium Chloride (NS) 1,000 ml @ 80 mls/hr [id number] IV Last administered on 04/06 11:33; Admin Dose 80 MLS/HR; Start 04/01/17 at 11:52 Ondansetron HCl (Zofran Inj) 4 mg Q6H PRN IV NAUSEA AND/OR VOMITING Last administered on 04/01/17 16:38; Admin Dose 4 MG; Start 04/01/17 at 12:00 Acetaminophen (Tylenol Tab) 650 mg Q6H PRN PO PAIN LEVEL 1-3 OR FEVER; Start at 12:00 Famotidine (Pepcid) 20 mg Q12 PO Last administered on 04/06/17 09:07; Admin Dose 20 MG; Start 04/01/17 at 21:00 Enoxaparin Sodium (Lovenox) 30 mg DAILY SC Last administered on 04/06/17 09:14 ; Admin Dose 30 MG; Start 04/02/17 at 09:00 Diphenhydramine HCl (Benadryl) 25 mg Q6H PRN PO ITCHING Last administered on 21:55; Admin Dose 25 MG; Start 04/01/17 at 21:00 Potassium Chloride (Klor-Con 20) 20 meq BID PO Last administered on 04/06/17 09:07; Admin Dose 20 MEQ; Start 04/03/17 at 21:00 Magnesium Chloride (Mag 64) 64 mg BID PO Last administered on 04/06/17 09:07; Admin Dose 64 MG; Start 04/03/17 at 21:00 Hydrocortisone (Hydrocortisone 0.5% Cr) 1 applic TID TOP Last administered on t 12:39; Admin Dose 1 APPLIC; Start 04/06/17 at 09:00 ROHAN VELÁZQUEZ MD Apr 06, 2017 13:07
[2017-04-06 14:27] VITALS: BP 97/51; RESP 18
--- NOTE | 2017-04-06 17:07 | PN ---
Date/Time of Note Date/Time of Note DATE: 04/06/17 TIME: 17:06 Assessment/Plan VTE Prophylaxis VTE Prophylaxis Intervention: other Lines/Catheters IV [facility] Type [facility]from [facility] portacath Urinary Cath still in place: No Assessment/Plan Assessment/Plan - Acute kidney injury, resolved, continue intravenous fluids. Dr. Spain following nephrology consultation. - Hypomagnesemia- resolved - Hyperkalemia, resolved. Continue to monitor potassium. - Hyponatremia, resolved. 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 - Ileostomy. Further recommendations based on clinical course. Plan of care discussed with Dr. Paez Subjective 24 Hr Interval Summary Respiratory: no complaints Cardiovascular: no complaints Gastrointestinal: no complaints Genitourinary: no complaints Skin: no complaints Exam/Review of Systems Vital Signs Vitals Vital Signs Date Time Temp Pulse Resp B/P Pulse Ox O2 Delivery O2 Flow Rate FiO2 04/06/17 14:27 97.9 86 18 97/51 99 04/03/17 02:27 Room Air Intake and Output 04/05/17 04/05/17 04/06/17 15:00 23:00 07:00 Intake Total 200 ml 2540 ml 595 ml Output Total 1100 ml Balance 200 ml 1440 ml 595 ml Exam Constitutional: alert, oriented Respiratory: clear to auscultation, normal air movement Cardiovascular: nl pulses, regular rate and rhythm Gastrointestinal: non-tender, other (colostomy intact), soft Musculoskeletal: nl extremities to inspection Extremities: normal pulses 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: nl mental status, nl speech Skin: other Results Result Diagram: 04/06/17 0512 04/06/17 0512 Results 24 hrs Laboratory Tests Test 04/06/17 05:12 White Blood Count 5.9 Red Blood Count 3.27 L Hemoglobin 9.6 L Hematocrit 29.2 L Mean Corpuscular Volume 89.3 Mean Corpuscular Hemoglobin 29.4 Mean Corpuscular Hemoglobin Concent 32.9 Red Cell Distribution Width 13.1 Platelet Count 253 Mean Platelet Volume 10.4 Neutrophils % 57.0 Lymphocytes % 13.6 L Monocytes % 8.3 Eosinophils % 19.4 H Basophils % 1.2 Nucleated Red Blood Cells % 0.0 Neutrophils # 3.3 Lymphocytes # 0.8 Monocytes # 0.5 Eosinophils # 1.1 H Basophils # 0.1 Nucleated Red Blood Cells # 0.0 Sodium Level 143 Potassium Level 3.8 Chloride Level 106 Carbon Dioxide Level 33 H Anion Gap 8 Blood Urea Nitrogen 22 H Creatinine 0.82 Glucose Level 82 Calcium Level 8.9 Medications Medications Current Medications Dextrose ONCE PRN IV POC BLOOD GLUCOSE <250 MG/DL Last administered on 21:38; Admin Dose 50 ML; Start 03/31/17 at 21:30 Sodium Chloride (NS) 1,000 ml @ 80 mls/hr [id number] IV Last administered on 04/06 11:33; Admin Dose 80 MLS/HR; Start 04/01/17 at 11:52 Ondansetron HCl (Zofran Inj) 4 mg Q6H PRN IV NAUSEA AND/OR VOMITING Last administered on 04/01/17 16:38; Admin Dose 4 MG; Start 04/01/17 at 12:00 Acetaminophen (Tylenol Tab) 650 mg Q6H PRN PO PAIN LEVEL 1-3 OR FEVER; Start at 12:00 Famotidine (Pepcid) 20 mg Q12 PO Last administered on 04/06/17 09:07; Admin Dose 20 MG; Start 04/01/17 at 21:00 Enoxaparin Sodium (Lovenox) 30 mg DAILY SC Last administered on 04/06/17 09:14 ; Admin Dose 30 MG; Start 04/02/17 at 09:00 Diphenhydramine HCl (Benadryl) 25 mg Q6H PRN PO ITCHING Last administered on 21:55; Admin Dose 25 MG; Start 04/01/17 at 21:00 Potassium Chloride (Klor-Con 20) 20 meq BID PO Last administered on 04/06/17 09:07; Admin Dose 20 MEQ; Start 04/03/17 at 21:00 Magnesium Chloride (Mag 64) 64 mg BID PO Last administered on 04/06/17 09:07; Admin Dose 64 MG; Start 04/03/17 at 21:00 Hydrocortisone (Hydrocortisone 0.5% Cr) 1 applic TID TOP Last administered on 12:39; Admin Dose 1 APPLIC; Start 04/06/17 at 09:00 DEVENDRA GOMES Apr 06, 2017 17:07
[2017-04-06 20:20] VITALS: BP 100/60; RESP 18
[2017-04-06] MEDS: DIPHENHYDRAMINE 25 MG CAP PO PRN (22:03)
[2017-04-07] MEDS: SOD CHLORIDE 0.9% 1,000 ML IV SCH ×3 (01:04→15:19)
[2017-04-07 02:23] VITALS: BP 92/55; RESP 18
[2017-04-07 05:56] LABS: BASOPHIL # 0.1 10^3/ul (0.0-0.1); BASOPHILS % 1.1 % (0.0-2.0); EOSINOPHILS # 1.2 10^3/ul (0.0-0.5); HEMATOCRIT 29.8 % (37.0-47.0); HEMOGLOBIN 9.5 g/dl (12.0-16.0); LYMPHOCYTES # 0.9 10^3/ul (0.8-2.9); LYMPHOCYTES % 11.2 % (15.0-51.0); MEAN CORPUSCULAR HEMOGLOBIN 28.8 pg (29.0-33.0); MEAN CORPUSCULAR HGB CONC 31.9 g/dl (32.0-37.0); MEAN CORPUSCULAR VOLUME 90.3 fl (82.0-101.0); MEAN PLATELET VOLUME 10.4 fl (7.4-10.4); MONOCYTE # 0.6 10^3/ul (0.3-0.9); MONOCYTES % 7.2 % (0.0-11.0); NEUTROPHIL # 5.3 10^3/ul (1.6-7.5); NEUTROPHILS % 64.8 % (39.0-77.0); PLATELET COUNT 260 10^3/UL (140-415); RED CELL DISTRIBUTION WIDTH 13.2 % (11.5-14.5); WHITE BLOOD COUNT 8.1 10^3/ul (4.8-10.8)
[2017-04-07 06:18] LABS: CALCIUM 8.8 mg/dl (8.4-10.2); CREATININE 0.85 mg/dl (0.44-1.00); POTASSIUM 4.1 mmol/L (3.5-5.1)
[2017-04-07 07:27] VITALS: BP 98/55; RESP 18
[2017-04-07] MEDS: POTASSIUM CHLORIDE (SR) 20 MEQ TAB PO SCH ×2 (08:43→21:52)
[2017-04-07] MEDS: MAGNESIUM CHLORIDE (SR) 64 MG TAB PO SCH ×2 (08:44→21:52)
[2017-04-07] MEDS: FAMOTIDINE 20 MG TAB PO SCH ×2 (08:44→21:52)
[2017-04-07] MEDS: ENOXAPARIN 30 MG/0.3 ML SYG SC SCH (08:49)
[2017-04-07] MEDS: HYDROCORTISONE 0.5% 28.35 GM CR TOP SCH ×3 (08:56→21:52)
--- NOTE | 2017-04-07 14:49 | PN ---
Date/Time of Note Date/Time of Note DATE: 04/07/17 TIME: 14:48 Assessment/Plan VTE Prophylaxis VTE Prophylaxis Intervention: SCD's Lines/Catheters IV Catheter Type (from [facility]): PORT A CATH Urinary Cath still in place: No Assessment/Plan Chief Complaint/Hosp Course Patient was increased BUN over the weekend currently on IV fluids, continue nausea and vomiting, if electrolytes remain stable anticipate discharge home tomorrow . Assessment/Plan - Acute kidney injury, resolved, continue intravenous fluids. Dr. Spain following nephrology consultation. - Hypomagnesemia, magnesium replaced. - Hyperkalemia, resolved. Continue to monitor potassium. - Hyponatremia, resolved. 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 - Ileostomy. Further recommendations based on clinical course. Plan of care discussed with Dr. Paez Problems: Exam/Review of Systems Vital Signs Vitals Vital Signs Date Time Temp Pulse Resp B/P Pulse Ox O2 Delivery O2 Flow Rate FiO2 04/07/17 07:27 97.4 79 18 98/55 100 Intake and Output 04/06/17 04/06/17 04/07/17 15:00 23:00 07:00 Intake Total 405 ml 1760 ml 1470 ml Output Total 750 ml 300 ml Balance 405 ml 1010 ml 1170 ml Exam Constitutional: alert, oriented Neck: supple Respiratory: normal air movement Cardiovascular: nl pulses Gastrointestinal: non-tender, other (Ileostomy), soft Extremities: normal pulses Additional Comments Right chest permacath Results Result Diagram: 04/07/17 0453 04/07/17 0453 Results 24 hrs Laboratory Tests Test 04/07/17 04:53 White Blood Count 8.1 # Red Blood Count 3.30 L Hemoglobin 9.5 L Hematocrit 29.8 L Mean Corpuscular Volume 90.3 Mean Corpuscular Hemoglobin 28.8 L Mean Corpuscular Hemoglobin Concent 31.9 L Red Cell Distribution Width 13.2 Platelet Count 260 Mean Platelet Volume 10.4 Neutrophils % 64.8 Lymphocytes % 11.2 L Monocytes % 7.2 Eosinophils % 15.0 H Basophils % 1.1 Nucleated Red Blood Cells % 0.0 Neutrophils # 5.3 Lymphocytes # 0.9 Monocytes # 0.6 Eosinophils # 1.2 H Basophils # 0.1 Nucleated Red Blood Cells # 0.0 Sodium Level 140 Potassium Level 4.1 Chloride Level 103 Carbon Dioxide Level 32 H Anion Gap 9 Blood Urea Nitrogen 22 H Creatinine 0.85 Glucose Level 81 Calcium Level 8.8 Medications Medications Current Medications Dextrose ONCE PRN IV POC BLOOD GLUCOSE <250 MG/DL Last administered on 21:38; Admin Dose 50 ML; Start 03/31/17 at 21:30 Sodium Chloride (NS) 1,000 ml @ 80 mls/hr [id number] IV Last administered on 04/07 01:04; Admin Dose 80 MLS/HR; Start 04/01/17 at 11:52 Ondansetron HCl (Zofran Inj) 4 mg Q6H PRN IV NAUSEA AND/OR VOMITING Last administered on 04/01/17 16:38; Admin Dose 4 MG; Start 04/01/17 at 12:00 Acetaminophen (Tylenol Tab) 650 mg Q6H PRN PO PAIN LEVEL 1-3 OR FEVER; Start at 12:00 Famotidine (Pepcid) 20 mg Q12 PO Last administered on 04/07/17 08:44; Admin Dose 20 MG; Start 04/01/17 at 21:00 Enoxaparin Sodium (Lovenox) 30 mg DAILY SC Last administered on 04/07/17 08:49 ; Admin Dose 30 MG; Start 04/02/17 at 09:00 Diphenhydramine HCl (Benadryl) 25 mg Q6H PRN PO ITCHING Last administered on 22:03; Admin Dose 25 MG; Start 04/01/17 at 21:00 Potassium Chloride (Klor-Con 20) 20 meq BID PO Last administered on 04/07/17 08:43; Admin Dose 20 MEQ; Start 04/03/17 at 21:00 Magnesium Chloride (Mag 64) 64 mg BID PO Last administered on 04/07/17 08:44; Admin Dose 64 MG; Start 04/03/17 at 21:00 Hydrocortisone (Hydrocortisone 0.5% Cr) 1 applic TID TOP Last administered on 14:01; Admin Dose 1 APPLIC; Start 04/06/17 at 09:00 ROMI ESPINO Apr 07, 2017 14:49
[2017-04-07 15:12] VITALS: BP 109/54; RESP 18
--- NOTE | 2017-04-07 18:30 | CONS ---
Date/Time of Note Date/Time of Note DATE: 04/07/17 TIME: 18:29 Assessment/Plan Assessment/Plan Additional Assessment/Plan 1. acute kidney injury due to severe prerenal azotemia- Cr improving with IVF hydration 2. Hyperkalemia- Improved to normal with treatment 3. hypercalcemia 2/2 severe dehydration now normal 4. Metaboilc acidosis due to azotemia and dehydration 5. H/o Hirschsprung disesae 6. Hypomagnesemia Plan : Cr and electorlytes stable today on KCl 20mEQ BID and Mag 64 BID - d/c home with KCL 20mEQ BID and Magnesium oxide 400mg PO BID no need for CKD work up since she has been admitted multiple times in past and she is known to me Monitor electrolytes and replace as needed will follow up Consultation Date/Type/Reason Admit Date/Time Apr 01, 2017 at 08:19 Initial Consult Date 04/01/17 Type of Consultation: NEPHROLOGY Referring Provider: CARLOS RODRIGUEZ MD 24 HR Interval Summary Free Text/Dictation doing ok, BP stable, Exam/Review of Systems Vital Signs Vitals Vital Signs Date Time Temp Pulse Resp B/P Pulse Ox O2 Delivery O2 Flow Rate FiO2 04/07/17 15:12 97.9 109 18 109/54 99 Intake and Output 04/06/17 04/06/17 04/07/17 15:00 23:00 07:00 Intake Total 405 ml 1760 ml 1470 ml Output Total 750 ml 300 ml Balance 405 ml 1010 ml 1170 ml Results Result Diagram: 04/07/17 0453 04/07/17 0453 Results 24 hrs Laboratory Tests Test 04/07/17 04:53 White Blood Count 8.1 # Red Blood Count 3.30 L Hemoglobin 9.5 L Hematocrit 29.8 L Mean Corpuscular Volume 90.3 Mean Corpuscular Hemoglobin 28.8 L Mean Corpuscular Hemoglobin Concent 31.9 L Red Cell Distribution Width 13.2 Platelet Count 260 Mean Platelet Volume 10.4 Neutrophils % 64.8 Lymphocytes % 11.2 L Monocytes % 7.2 Eosinophils % 15.0 H Basophils % 1.1 Nucleated Red Blood Cells % 0.0 Neutrophils # 5.3 Lymphocytes # 0.9 Monocytes # 0.6 Eosinophils # 1.2 H Basophils # 0.1 Nucleated Red Blood Cells # 0.0 Sodium Level 140 Potassium Level 4.1 Chloride Level 103 Carbon Dioxide Level 32 H Anion Gap 9 Blood Urea Nitrogen 22 H Creatinine 0.85 Glucose Level 81 Calcium Level 8.8 Medications Medications Current Medications Dextrose ONCE PRN IV POC BLOOD GLUCOSE <250 MG/DL Last administered on 21:38; Admin Dose 50 ML; Start 03/31/17 at 21:30 Sodium Chloride (NS) 1,000 ml @ 80 mls/hr [id number] IV Last administered on 04/07 15:19; Admin Dose 80 MLS/HR; Start 04/01/17 at 11:52 Ondansetron HCl (Zofran Inj) 4 mg Q6H PRN IV NAUSEA AND/OR VOMITING Last administered on 04/01/17 16:38; Admin Dose 4 MG; Start 04/01/17 at 12:00 Acetaminophen (Tylenol Tab) 650 mg Q6H PRN PO PAIN LEVEL 1-3 OR FEVER; Start at 12:00 Famotidine (Pepcid) 20 mg Q12 PO Last administered on 04/07/17 08:44; Admin Dose 20 MG; Start 04/01/17 at 21:00 Enoxaparin Sodium (Lovenox) 30 mg DAILY SC Last administered on 04/07/17 08:49 ; Admin Dose 30 MG; Start 04/02/17 at 09:00 Diphenhydramine HCl (Benadryl) 25 mg Q6H PRN PO ITCHING Last administered on 22:03; Admin Dose 25 MG; Start 04/01/17 at 21:00 Potassium Chloride (Klor-Con 20) 20 meq BID PO Last administered on 04/07/17 08:43; Admin Dose 20 MEQ; Start 04/03/17 at 21:00 Magnesium Chloride (Mag 64) 64 mg BID PO Last administered on 04/07/17 08:44; Admin Dose 64 MG; Start 04/03/17 at 21:00 Hydrocortisone (Hydrocortisone 0.5% Cr) 1 applic TID TOP Last administered on 14:01; Admin Dose 1 APPLIC; Start 04/06/17 at 09:00 ROHAN VELÁZQUEZ MD Apr 07, 2017 18:30
[2017-04-07 20:00] VITALS: BP 96/69; RESP 18
[2017-04-07] MEDS: DIPHENHYDRAMINE 25 MG CAP PO PRN (23:02)
[2017-04-08 02:00] VITALS: BP 93/50; RESP 18
[2017-04-08] MEDS: SOD CHLORIDE 0.9% 1,000 ML IV SCH ×3 (04:26→21:00)
[2017-04-08 06:49] LABS: CALCIUM 8.6 mg/dl (8.4-10.2); CREATININE 0.82 mg/dl (0.44-1.00); POTASSIUM 3.6 mmol/L (3.5-5.1)
[2017-04-08 07:29] LABS: MAGNESIUM 0.8 mg/dl (1.7-2.5)
[2017-04-08 07:37] VITALS: BP 101/55; RESP 18
[2017-04-08] MEDS ORDERED: MAGNESIUM SULFATE 3 GM in SOD CHLORIDE 0.9% 100 ML IVPB ONE (09:00)
[2017-04-08] MEDS: MAGNESIUM CHLORIDE (SR) 64 MG TAB PO SCH ×2 (09:11→20:36)
[2017-04-08] MEDS: FAMOTIDINE 20 MG TAB PO SCH ×2 (09:12→20:36)
[2017-04-08] MEDS: POTASSIUM CHLORIDE (SR) 20 MEQ TAB PO SCH ×2 (09:12→20:35)
[2017-04-08] MEDS: ENOXAPARIN 30 MG/0.3 ML SYG SC SCH (09:20)
[2017-04-08] MEDS: HYDROCORTISONE 0.5% 28.35 GM CR TOP SCH ×3 (09:21→20:36)
[2017-04-08 14:00] VITALS: BP 101/53; RESP 18
--- NOTE | 2017-04-08 14:52 | PN ---
Date/Time of Note Date/Time of Note DATE: 04/08/17 TIME: 14:50 Assessment/Plan VTE Prophylaxis VTE Prophylaxis Intervention: SCD's Lines/Catheters IV Catheter Type (from [facility]): PORTACATH Urinary Cath still in place: No Assessment/Plan Chief Complaint/Hosp Course Patient with a low magnesium level, replaced. Patient denies any nausea vomiting, tolerates diet well. BMP and magnesium tomorrow. Assessment/Plan - Hypomagnesemia, magnesium replaced. - Acute kidney injury, resolved, continue intravenous fluids. Dr. Spain following nephrology consultation. - Hyperkalemia, resolved. Continue to monitor potassium. - Hyponatremia, resolved. 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 - Ileostomy. Further recommendations based on clinical course. Plan of care discussed with Dr. Paez Problems: Exam/Review of Systems Vital Signs Vitals Vital Signs Date Time Temp Pulse Resp B/P Pulse Ox O2 Delivery O2 Flow Rate FiO2 04/08/17 14:00 97.7 103 18 101/53 98 Intake and Output 04/07/17 04/07/17 04/08/17 15:00 23:00 07:00 Intake Total 2830 ml 800 ml Output Total 750 ml 2000 ml Balance 2080 ml -1200 ml Exam Constitutional: alert, oriented Neck: supple Respiratory: normal air movement Cardiovascular: nl pulses Gastrointestinal: non-tender, other (Ileostomy), soft Extremities: normal pulses Additional Comments Right chest permacath Results Result Diagram: 04/07/17 0453 04/08/17 0458 Results 24 hrs Laboratory Tests Test 04/08/17 04:58 Sodium Level 142 Potassium Level 3.6 Chloride Level 105 Carbon Dioxide Level 28 Anion Gap 13 Blood Urea Nitrogen 22 H Creatinine 0.82 Glucose Level 127 # Calcium Level 8.6 Magnesium Level 0.8 *L Medications Medications Current Medications Dextrose ONCE PRN IV POC BLOOD GLUCOSE <250 MG/DL Last administered on 21:38; Admin Dose 50 ML; Start 03/31/17 at 21:30 Sodium Chloride (NS) 1,000 ml @ 80 mls/hr [id number] IV Last administered on 04/08 04:26; Admin Dose 80 MLS/HR; Start 04/01/17 at 11:52 Ondansetron HCl (Zofran Inj) 4 mg Q6H PRN IV NAUSEA AND/OR VOMITING Last administered on 04/01/17 16:38; Admin Dose 4 MG; Start 04/01/17 at 12:00 Acetaminophen (Tylenol Tab) 650 mg Q6H PRN PO PAIN LEVEL 1-3 OR FEVER; Start at 12:00 Famotidine (Pepcid) 20 mg Q12 PO Last administered on 04/08/17 09:12; Admin Dose 20 MG; Start 04/01/17 at 21:00 Enoxaparin Sodium (Lovenox) 30 mg DAILY SC Last administered on 04/08/17 09:20 ; Admin Dose 30 MG; Start 04/02/17 at 09:00 Diphenhydramine HCl (Benadryl) 25 mg Q6H PRN PO ITCHING Last administered on 23:02; Admin Dose 25 MG; Start 04/01/17 at 21:00 Potassium Chloride (Klor-Con 20) 20 meq BID PO Last administered on 04/08/17 09:12; Admin Dose 20 MEQ; Start 04/03/17 at 21:00 Magnesium Chloride (Mag 64) 64 mg BID PO Last administered on 04/08/17 09:11; Admin Dose 64 MG; Start 04/03/17 at 21:00 Hydrocortisone (Hydrocortisone 0.5% Cr) 1 applic TID TOP Last administered on 13:38; Admin Dose 1 APPLIC; Start 04/06/17 at 09:00 ROMI ESPINO Apr 08, 2017 14:52
--- NOTE | 2017-04-08 15:13 | CONS ---
Date/Time of Note Date/Time of Note DATE: 04/08/17 TIME: 15:12 Assessment/Plan Assessment/Plan Additional Assessment/Plan 1. acute kidney injury due to severe prerenal azotemia- Cr improving with IVF hydration 2. Hyperkalemia- Improved to normal with treatment 3. hypercalcemia 2/2 severe dehydration now normal 4. Metaboilc acidosis due to azotemia and dehydration 5. H/o Hirschsprung disesae 6. Hypomagnesemia Plan : Cr normal today, K normal, Magnesum 0.8- given magnesium suflate 3 gram IV x 1 dose today on KCl 20mEQ BID and Mag 64 BID - d/c home with KCL 20mEQ BID and Magnesium oxide 400mg PO BID no need for CKD work up since she has been admitted multiple times in past and she is known to me Monitor electrolytes and replace as needed will follow up Consultation Date/Type/Reason Admit Date/Time Apr 01, 2017 at 08:19 Initial Consult Date 04/01/17 Type of Consultation: NEPHROLOGY Referring Provider: CARLOS RODRIGUEZ MD 24 HR Interval Summary Free Text/Dictation Cr normal, magnesium 0.8 Exam/Review of Systems Vital Signs Vitals Vital Signs Date Time Temp Pulse Resp B/P Pulse Ox O2 Delivery O2 Flow Rate FiO2 04/08/17 14:00 97.7 103 18 101/53 98 Intake and Output 04/07/17 04/07/17 04/08/17 15:00 23:00 07:00 Intake Total 2830 ml 800 ml Output Total 750 ml 2000 ml Balance 2080 ml -1200 ml Exam Constitutional: alert Respiratory: clear to auscultation, normal air movement Cardiovascular: regular rate and rhythm Gastrointestinal: firm, soft, tender Musculoskeletal: nl extremities to inspection Extremities: normal pulses 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: PERFORATOR II-XII intact, nl mental status, nl speech, nl strength Results Result Diagram: 04/07/17 0453 04/08/17 0458 Results 24 hrs Laboratory Tests Test 04/08/17 04:58 Sodium Level 142 Potassium Level 3.6 Chloride Level 105 Carbon Dioxide Level 28 Anion Gap 13 Blood Urea Nitrogen 22 H Creatinine 0.82 Glucose Level 127 # Calcium Level 8.6 Magnesium Level 0.8 *L Medications Medications Current Medications Dextrose ONCE PRN IV POC BLOOD GLUCOSE <250 MG/DL Last administered on t 21:38; Admin Dose 50 ML; Start 03/31/17 at 21:30 Sodium Chloride (NS) 1,000 ml @ 80 mls/hr [id number] IV Last administered on 04/08 04:26; Admin Dose 80 MLS/HR; Start 04/01/17 at 11:52 Ondansetron HCl (Zofran Inj) 4 mg Q6H PRN IV NAUSEA AND/OR VOMITING Last administered on 04/01/17 16:38; Admin Dose 4 MG; Start 04/01/17 at 12:00 Acetaminophen (Tylenol Tab) 650 mg Q6H PRN PO PAIN LEVEL 1-3 OR FEVER; Start at 12:00 Famotidine (Pepcid) 20 mg Q12 PO Last administered on 04/08/17 09:12; Admin Dose 20 MG; Start 04/01/17 at 21:00 Enoxaparin Sodium (Lovenox) 30 mg DAILY SC Last administered on 04/08/17 09:20 ; Admin Dose 30 MG; Start 04/02/17 at 09:00 Diphenhydramine HCl (Benadryl) 25 mg Q6H PRN PO ITCHING Last administered on 23:02; Admin Dose 25 MG; Start 04/01/17 at 21:00 Potassium Chloride (Klor-Con 20) 20 meq BID PO Last administered on 04/08/17 09:12; Admin Dose 20 MEQ; Start 04/03/17 at 21:00 Magnesium Chloride (Mag 64) 64 mg BID PO Last administered on 04/08/17 09:11; Admin Dose 64 MG; Start 04/03/17 at 21:00 Hydrocortisone (Hydrocortisone 0.5% Cr) 1 applic TID TOP Last administered on 13:38; Admin Dose 1 APPLIC; Start 04/06/17 at 09:00 ROHAN VELÁZQUEZ MD Apr 08, 2017 15:13
[2017-04-08 19:33] VITALS: BP 87/46; RESP 18
[2017-04-08 22:08] VITALS: BP 96/50; RESP 18
[2017-04-09] MEDS: DIPHENHYDRAMINE 25 MG CAP PO PRN (00:45)
[2017-04-09 02:00] VITALS: BP 90/55; RESP 18
[2017-04-09] MEDS: SOD CHLORIDE 0.9% 1,000 ML IV SCH ×2 (04:32→16:21)
[2017-04-09 06:07] LABS: CALCIUM 8.5 mg/dl (8.4-10.2); CREATININE 0.94 mg/dl (0.44-1.00); MAGNESIUM 1.6 mg/dl (1.7-2.5); POTASSIUM 4.1 mmol/L (3.5-5.1)
[2017-04-09 07:23] VITALS: BP 95/51; RESP 19
[2017-04-09] MEDS: POTASSIUM CHLORIDE (SR) 20 MEQ TAB PO SCH ×2 (08:28→20:29)
[2017-04-09] MEDS: FAMOTIDINE 20 MG TAB PO SCH ×2 (08:29→20:29)
[2017-04-09] MEDS: MAGNESIUM CHLORIDE (SR) 64 MG TAB PO SCH ×2 (08:29→20:29)
[2017-04-09] MEDS: HYDROCORTISONE 0.5% 28.35 GM CR TOP SCH ×3 (08:30→20:42)
[2017-04-09] MEDS: ENOXAPARIN 30 MG/0.3 ML SYG SC SCH (08:38)
[2017-04-09] MEDS ORDERED: POTA20TA15 PO (12:49)
[2017-04-09] MEDS ORDERED: MAGN400T27 PO (12:49)
[2017-04-09] MEDS ORDERED: MAGNESIUM SULFATE 2 GM/50 ML 50 ML IVPB ONE (13:00)
[2017-04-09 14:37] VITALS: BP 94/52; RESP 19
--- NOTE | 2017-04-09 19:14 | CONS ---
Date/Time of Note Date/Time of Note DATE: 04/09/17 TIME: 19:12 Assessment/Plan Assessment/Plan Additional Assessment/Plan 1. acute kidney injury due to severe prerenal azotemia- Cr improving with IVF hydration 2. Hyperkalemia- Improved to normal with treatment 3. hypercalcemia 2/2 severe dehydration now normal 4. Metaboilc acidosis due to azotemia and dehydration 5. H/o Hirschsprung disesae 6. Hypomagnesemia Plan : Cr normal today, K normal, Magnesum 1.6 today - Magnesium sulfate 2 gram IV x 1 given today on KCl 20mEQ BID and Mag 64 BID - d/c home with KCL 20mEQ BID and Magnesium oxide 400mg PO BID no need for CKD work up since she has been admitted multiple times in past and she is known to me Monitor electrolytes and replace as needed will follow up Consultation Date/Type/Reason Admit Date/Time Apr 01, 2017 at 08:19 Initial Consult Date 04/01/17 Type of Consultation: NEPHROLOGY Referring Provider: CARLOS RODRIGUEZ MD 24 HR Interval Summary Free Text/Dictation Mag 1.6, BP stable Exam/Review of Systems Vital Signs Vitals Vital Signs Date Time Temp Pulse Resp B/P Pulse Ox O2 Delivery O2 Flow Rate FiO2 04/09/17 14:37 98.6 104 19 94/52 98 04/08/17 22:08 Room Air Intake and Output 04/08/17 04/08/17 04/09/17 15:00 23:00 07:00 Intake Total 106 ml 2660 ml 640 ml Output Total 1000 ml Balance 106 ml 1660 ml 640 ml Exam Constitutional: alert Respiratory: clear to auscultation, normal air movement Cardiovascular: regular rate and rhythm Gastrointestinal: firm, soft, tender + ielostomy Musculoskeletal: nl extremities to inspection Extremities: normal pulses 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: PROCESS OPERATOR II-XII intact, nl mental status, nl speech, nl strength Results Result Diagram: 04/07/17 0454 04/09/17 0504 Results 24 hrs Laboratory Tests Test 04/09/17 05:04 Sodium Level 140 Potassium Level 4.1 Chloride Level 108 Carbon Dioxide Level 30 Anion Gap 6 L Blood Urea Nitrogen 18 Creatinine 0.94 Glucose Level 81 # Calcium Level 8.5 Magnesium Level 1.6 L Medications Medications Current Medications Dextrose ONCE PRN IV POC BLOOD GLUCOSE <250 MG/DL Last administered on 21:38; Admin Dose 50 ML; Start 03/31/17 at 21:30 Sodium Chloride (NS) 1,000 ml @ 80 mls/hr [id number] IV Last administered on 04/09 16:21; Admin Dose 80 MLS/HR; Start 04/01/17 at 11:52 Ondansetron HCl (Zofran Inj) 4 mg Q6H PRN IV NAUSEA AND/OR VOMITING Last administered on 04/01/17 16:38; Admin Dose 4 MG; Start 04/01/17 at 12:00 Acetaminophen (Tylenol Tab) 650 mg Q6H PRN PO PAIN LEVEL 1-3 OR FEVER; Start at 12:00 Famotidine (Pepcid) 20 mg Q12 PO Last administered on 04/09/17 08:29; Admin Dose 20 MG; Start 04/01/17 at 21:00 Enoxaparin Sodium (Lovenox) 30 mg DAILY SC Last administered on 04/09/17 08:38 ; Admin Dose 30 MG; Start 04/02/17 at 09:00 Diphenhydramine HCl (Benadryl) 25 mg Q6H PRN PO ITCHING Last administered on 00:45; Admin Dose 25 MG; Start 04/01/17 at 21:00 Potassium Chloride (Klor-Con 20) 20 meq BID PO Last administered on 04/09/17 08:28; Admin Dose 20 MEQ; Start 04/03/17 at 21:00 Magnesium Chloride (Mag 64) 64 mg BID PO Last administered on 04/09/17 08:29; Admin Dose 64 MG; Start 04/03/17 at 21:00 Hydrocortisone (Hydrocortisone 0.5% Cr) 1 applic TID TOP Last administered on 13:39; Admin Dose 1 APPLIC; Start 04/06/17 at 09:00 ROHAN VELÁZQUEZ MD Apr 09, 2017 19:14
[2017-04-09 19:21] VITALS: BP 88/54; RESP 18
[2017-04-09] MEDS ORDERED: HEPARIN (100 UNITS/ML) 5 ML SYG CATHETER ONE (20:00)
[2017-04-09 20:59] VITALS: BP 92/55; PULSE 100; RESP 18
--- NOTE | 2017-04-11 21:06 | DS ---
Date/Time of Note Date/Time of Note DATE: 04/11/17 TIME: 21:06 Discharge Summary Admission/Discharge Info Admit Date/Time Apr 01, 2017 at 08:19 Discharge Date/Time Apr 09, 2017 at 21:25 Patient Condition: Stable Hx of Present Illness The patient is a 41-year-old female with history of Hirschsprung disease, multiple abdominal surgeries in childhood, patient with ileostomy. Patient developed non bilious, non bloody emesis yesterday last night and presented to the emergency room. On evaluation in emergency room, patient was found to have elevated potassium of 7.2. Patient also noted to have white blood cells elevated at 12,000; however, denies any fever and chills. Patient was given treatment for hyperkalemia and was given IV fluids. Patient also was hyponatremic with sodium of 128, and patient denies any chest pain, denies shortness of breath and patient will be admitted for further evaluation and management to telemetry floor. Hospital Course - Hypomagnesemia, magnesium replaced. - Acute kidney injury, resolved, continue intravenous fluids. Dr. Spain following nephrology consultation. - Hyperkalemia, resolved. Continue to monitor potassium. - Hyponatremia, resolved. 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 - Ileostomy. Home Meds Active Scripts Magnesium Oxide* (Mag-Oxide*) 400 Mg Tablet, 400 MG PO BID for 30 Days, TAB Prov:ROMI ESPINO 04/09/17 Potassium Chloride* (K-Dur*) 20 Meq Tab.prt.sr, 20 MEQ PO BID for 30 Days Prov:ROMI ESPINO 04/09/17 Reported Medications Famotidine* (Famotidine*) 20 Mg Tablet, 20 MG PO BID, #60 TAB 03/31/17 Ondansetron Hcl* (Zofran*) 4 Mg Tab, 4 MG PO Q6H Y for NAUSEA AND OR VOMITING, TAB 03/31/17 Hydroxyzine Pamoate* (Vistaril*) 25 Mg Capsule, 25 MG PO QHS Y for ITCHING, CAP 11/02/15 Folic Acid* (Folic Acid*) 1 Mg Tablet, 1 MG PO DAILY, TAB 11/02/15 Cyanocobalamin* (Vitamin B-12* Inj) 1,000 Mcg/Ml Vial, 1000 MCG IM Q28D, VIAL 11/02/15 Discontinued Scripts Potassium Chloride* (K-Dur*) 20 Meq Tab.prt.sr, 20 MEQ PO TID for 30 Days Prov:DEVENDRA GOMES 03/23/17 Follow-up Plan Follow-up with PMD in 2 weeks, BMP and magnesium in 2 weeks Primary Care Provider MD SRINIVAS Shah SVETLANA Apr 11, 2017 21:06
== END 2017-04-09 21:25 | disposition home or self-care (01) | DRG 683 ==
LOC: E/R 16:31 → MS2 04-01 08:19
PROVIDERS: ADMIT Internal Medicine; ATTEND Internal Medicine
DX: N17.9 Acute kidney failure, unspecified (principal); E87.1 Hypo-osmolality and hyponatremia; E87.2 Acidosis; E87.5 Hyperkalemia; E86.0 Dehydration; Z93.2 Ileostomy status; E83.52 Hypercalcemia; E83.42 Hypomagnesemia; E87.6 Hypokalemia; Z87.738 Personal history of other specified (corrected) congenital malformations of digestive system
CPT/HCPCS: 36415; 80048; 80053; 81001; 81003; 82570; 82962; 83690; 83735; 84300; 85025; 87086; 89190; 93005; 94664; 96374; 96375; 96376; J1642; J1650; J1815; J2270; J2405; J3475; J3480; J7030; J7040

== ENCOUNTER 2017-10-02 00:40 | Inpatient (IN) | END 2017-10-07 22:50 | disposition home health service (06) | DRG 812 ==

== ENCOUNTER 2018-02-12 22:31 | Inpatient (IN) | END 2018-03-15 17:00 | disposition home or self-care (01) | DRG 682 ==

== ENCOUNTER 2019-02-01 17:15 | Inpatient (IN) | payer OTHER ==
[~2019-02-01] VITALS: Ht 147.3 cm; Wt 34.4 kg
[~2019-02-01 17:15] MED LIST changes: -ACET-141 PO; -ALBU8.5H3 INH; +ALBU8.5H8 INH; +BETH25TA39 PO; +CHOL200056 PO; +CHOL200073 PO; +CYAN100092 SUBDERMAL; +FAMO20TA18 PO; +FLUO120C4 TOP; +FLUT16SP17 NASAL; +FOLI0.4T2 PO; +HYDR-3029 PO; -HYDR-902 PO; -HYDR25CA PO; +MAGN250T10 PO; +MAGN500C PO; -MIDO2.5T PO; -MULT-853 PO; -PANT40TA4 PO; +POTA20TA15 ORAL; -POTA20TA15 PO; -SLOMAG PO; -SODI650T PO; +TRIA15CR52 SUBDERMAL; -Vancomycin Iv Per Pharmacy XX
[2019-02-01] MEDS ORDERED: SOD CHLORIDE 0.9% 500 ML IV STA (19:29)
[2019-02-01] MEDS ORDERED: PANTOPRAZOLE IV 80 MG in SOD CHLORIDE 0.9% 100 ML IV STA (19:29)
[2019-02-01] MEDS ORDERED: PANTOPRAZOLE IV 80 MG in SOD CHLORIDE 0.9% 100 ML IVPB STA (19:29)
[2019-02-01] MEDS ORDERED: ONDANSETRON 4 MG INJ IV STA (19:29)
[2019-02-01] MEDS ORDERED: SOD CHLORIDE 0.9% 1,000 ML IV SCH (21:35)
[2019-02-01] MEDS ORDERED: ACETAMINOPHEN 325 MG TAB PO PRN (22:00)
[2019-02-01] MEDS ORDERED: ONDANSETRON 4 MG INJ IV PRN ×2 (22:00→23:30)
[2019-02-01] MEDS: SOD CHLORIDE 0.9% 1,000 ML IV SCH (23:01)
[2019-02-01] MEDS ORDERED: ALBUTEROL HFA 8 GM INHALER INH PRN (23:30)
[2019-02-02] VITALS (8 sets, daily range): BP systolic 83–90; BP diastolic 50–55; PULSE 107–130; RESP 17–20; Ht 147.3 cm; Wt 34.4 kg
[2019-02-02] MEDS: hydrOXYzine HCL 10 MG TAB PO SCH (08:22)
[2019-02-02] MEDS: FOLIC ACID 1 MG TAB PO SCH (08:22)
[2019-02-02] MEDS: MAGNESIUM OXIDE 400 MG TAB PO SCH ×2 (08:22→21:03)
[2019-02-02] MEDS: CHOLECALCIFEROL 2,000 UNIT CAP PO SCH (08:23)
[2019-02-02] MEDS ORDERED: POTASSIUM CHLORIDE (SR) 20 MEQ TAB PO SCH (09:00)
[2019-02-02] MEDS: SOD CHLORIDE 0.9% 1,000 ML IV SCH ×2 (10:50→18:30)
[2019-02-02] MEDS: POTASSIUM CHLORIDE (SR) 20 MEQ TAB PO SCH (21:03)
[2019-02-03] VITALS: BP 89/53; PULSE 122; RESP 18
[2019-02-03 03:55] VITALS: BP 81/53; PULSE 117; RESP 17
[2019-02-03] MEDS: SOD CHLORIDE 0.9% 1,000 ML IV SCH ×2 (05:16→16:38)
[2019-02-03 07:29] VITALS: BP 95/58; PULSE 122; RESP 20
[2019-02-03] MEDS: FOLIC ACID 1 MG TAB PO SCH (08:28)
[2019-02-03] MEDS: POTASSIUM CHLORIDE (SR) 20 MEQ TAB PO SCH ×2 (08:28→23:47)
[2019-02-03] MEDS: MAGNESIUM OXIDE 400 MG TAB PO SCH ×2 (08:28→23:47)
[2019-02-03] MEDS: CHOLECALCIFEROL 2,000 UNIT CAP PO SCH (08:28)
[2019-02-03] MEDS: hydrOXYzine HCL 10 MG TAB PO SCH ×2 (08:28→23:47)
[2019-02-03 11:16] VITALS: BP 82/53; PULSE 114; RESP 20
[2019-02-03] MEDS ORDERED: FAMOTIDINE 20 MG TAB PO PRN (14:30)
[2019-02-03] MEDS ORDERED: CYANOCOBALAMIN 1000 MCG INJ SC SCH (14:30)
[2019-02-03 14:53] VITALS: BP 85/51; PULSE 118; RESP 20
[2019-02-03 19:57] VITALS: BP 88/59; PULSE 118; RESP 18
[2019-02-04] VITALS: BP 103/54; PULSE 66; RESP 18
[2019-02-04 04:00] VITALS: BP 84/50; PULSE 108; RESP 18
[2019-02-04 07:30] VITALS: BP 98/54; PULSE 125; RESP 18
[2019-02-04] MEDS: FOLIC ACID 1 MG TAB PO SCH (08:46)
[2019-02-04] MEDS: MAGNESIUM OXIDE 400 MG TAB PO SCH ×2 (08:46→22:21)
[2019-02-04] MEDS: POTASSIUM CHLORIDE (SR) 20 MEQ TAB PO SCH ×2 (08:46→22:20)
[2019-02-04] MEDS: CHOLECALCIFEROL 2,000 UNIT CAP PO SCH (08:46)
[2019-02-04] MEDS: SOD CHLORIDE 0.9% 1,000 ML IV SCH ×2 (10:11→14:56)
[2019-02-04 10:58] VITALS: BP 86/52; PULSE 117; RESP 18
[2019-02-04] MEDS ORDERED: CITRIC ACID/NA CITRATE 30 ML CUP PO ONE (11:00)
[2019-02-04] MEDS ORDERED: DIGOXIN 500 MCG INJ IV ONE (14:00)
[2019-02-04 15:46] VITALS: BP 106/64; PULSE 120; RESP 19
[2019-02-04] MEDS: MIDODRINE 2.5 MG TAB PO SCH (16:49)
[2019-02-04] MEDS: LORAZEPAM 2 MG INJ IV PRN (17:56)
[2019-02-04 20:00] VITALS: BP 107/53; PULSE 80; RESP 18
[2019-02-04] MEDS: CITRIC ACID/NA CITRATE 30 ML CUP PO SCH (22:20)
[2019-02-04] MEDS: hydrOXYzine HCL 10 MG TAB PO SCH (22:21)
[2019-02-05] VITALS (7 sets, daily range): BP systolic 80–94; BP diastolic 51–59; PULSE 92–108; RESP 18–20
[2019-02-05] MEDS: SOD CHLORIDE 0.9% 1,000 ML IV SCH ×2 (04:13→16:16)
[2019-02-05] MEDS: CHOLECALCIFEROL 2,000 UNIT CAP PO SCH (09:02)
[2019-02-05] MEDS: CITRIC ACID/NA CITRATE 30 ML CUP PO SCH ×2 (09:02→21:44)
[2019-02-05] MEDS: MIDODRINE 2.5 MG TAB PO SCH ×2 (09:02→13:11)
[2019-02-05] MEDS: MAGNESIUM OXIDE 400 MG TAB PO SCH ×2 (09:03→21:44)
[2019-02-05] MEDS: FOLIC ACID 1 MG TAB PO SCH (09:03)
[2019-02-05] MEDS: POTASSIUM CHLORIDE (SR) 20 MEQ TAB PO SCH ×2 (09:03→21:44)
[2019-02-05] MEDS: MIDODRINE 5 MG TAB PO SCH (16:15)
[2019-02-05] MEDS: hydrOXYzine HCL 10 MG TAB PO SCH (21:44)
[2019-02-06] VITALS (7 sets, daily range): BP systolic 85–147; BP diastolic 42–61; PULSE 74–115; RESP 17–20
[2019-02-06] MEDS: LORAZEPAM 2 MG INJ IV PRN (00:42)
[2019-02-06] MEDS ORDERED: BISACODYL (EC) 5 MG TAB PO PRN (05:00)
[2019-02-06] MEDS: SOD CHLORIDE 0.9% 1,000 ML IV SCH ×2 (05:02→18:13)
[2019-02-06] MEDS: CHOLECALCIFEROL 2,000 UNIT CAP PO SCH (08:57)
[2019-02-06] MEDS: FOLIC ACID 1 MG TAB PO SCH (08:58)
[2019-02-06] MEDS: POTASSIUM CHLORIDE (SR) 20 MEQ TAB PO SCH ×2 (08:58→21:08)
[2019-02-06] MEDS: MAGNESIUM OXIDE 400 MG TAB PO SCH ×2 (08:58→21:08)
[2019-02-06] MEDS: CITRIC ACID/NA CITRATE 30 ML CUP PO SCH ×2 (08:58→21:09)
[2019-02-06] MEDS: MIDODRINE 5 MG TAB PO SCH ×3 (08:58→17:54)
[2019-02-06] MEDS: morphine 2 MG INJ IV PRN ×2 (09:09→13:25)
[2019-02-06] MEDS: METOCLOPRAMIDE 10 MG INJ IV SCH ×2 (12:13→17:54)
[2019-02-06] MEDS: hydrOXYzine HCL 10 MG TAB PO SCH (21:07)
[2019-02-07] VITALS (14 sets, daily range): BP systolic 63–138; BP diastolic 34–107; PULSE 73–173; RESP 18–20
[2019-02-07] MEDS: METOCLOPRAMIDE 10 MG INJ IV SCH ×4 (00:27→17:35)
[2019-02-07] MEDS: SOD CHLORIDE 0.9% 1,000 ML IV SCH (08:40)
[2019-02-07] MEDS: CHOLECALCIFEROL 2,000 UNIT CAP PO SCH (08:46)
[2019-02-07] MEDS: MAGNESIUM OXIDE 400 MG TAB PO SCH ×2 (08:46→20:14)
[2019-02-07] MEDS: MIDODRINE 5 MG TAB PO SCH ×3 (08:46→17:35)
[2019-02-07] MEDS: FOLIC ACID 1 MG TAB PO SCH (08:47)
[2019-02-07] MEDS: CITRIC ACID/NA CITRATE 30 ML CUP PO SCH ×2 (08:47→20:13)
[2019-02-07] MEDS: POTASSIUM CHLORIDE (SR) 20 MEQ TAB PO SCH ×2 (08:47→20:14)
[2019-02-07] MEDS ORDERED: METOPROLOL 5 MG INJ IV ONE (10:00)
[2019-02-07] MEDS ORDERED: ADENOSINE 2 ML ONE (13:03)
[2019-02-07] MEDS: ATENOLOL 25 MG TAB PO SCH ×2 (13:21→20:01)
[2019-02-07] MEDS: ADENOSINE 6 MG INJ IV ONE ×2 (13:25→13:45)
[2019-02-07] MEDS ORDERED: DIGOXIN 500 MCG INJ IV ONE (13:30)
[2019-02-07] MEDS ORDERED: ADENOSINE 6 MG INJ IV ONE ×2 (13:30)
[2019-02-07] MEDS ORDERED: SOD CHLORIDE 0.9% 500 ML IV ONE ×2 (14:00→20:00)
[2019-02-07] MEDS: PANTOPRAZOLE (EC) 40 MG TAB PO SCH (17:35)
[2019-02-07] MEDS ORDERED: MIDODRINE 2.5 MG TAB PO ONE (20:00)
[2019-02-07] MEDS: hydrOXYzine HCL 10 MG TAB PO SCH (20:14)
[2019-02-07] MEDS: ACETAMINOPHEN 500 MG TAB PO PRN (20:57)
[2019-02-08] VITALS (71 sets, daily range): BP systolic 50–138; BP diastolic 12–123; PULSE 77–166; RESP 12–36
[2019-02-08] MEDS ORDERED: SOD CHLORIDE 0.9% 1,000 ML IV ONE (00:30)
[2019-02-08] MEDS: METOCLOPRAMIDE 10 MG INJ IV SCH ×6 (00:42→23:09)
[2019-02-08] MEDS: ACETAMINOPHEN 500 MG TAB PO PRN ×2 (01:40→12:57)
[2019-02-08] MEDS ORDERED: NORepinephrine 8MG/250 ML (PMX 250 ML ONE (04:12)
[2019-02-08] MEDS ORDERED: DOPamine-D5W 1.6 MG/ML 250 ML IV SCH (04:30)
[2019-02-08] MEDS ORDERED: DOPamine-D5W 1.6 MG/ML 250 ML ONE (04:31)
[2019-02-08] MEDS: PANTOPRAZOLE (EC) 40 MG TAB PO SCH (05:14)
[2019-02-08] MEDS: ATENOLOL 25 MG TAB PO SCH ×2 (08:34→20:14)
[2019-02-08] MEDS: FOLIC ACID 1 MG TAB PO SCH (08:35)
[2019-02-08] MEDS: MAGNESIUM OXIDE 400 MG TAB PO SCH ×2 (08:35→20:14)
[2019-02-08] MEDS: ALLOPURINOL 100 MG TAB PO SCH (08:35)
[2019-02-08] MEDS: CITRIC ACID/NA CITRATE 30 ML CUP PO SCH ×2 (08:42→20:14)
[2019-02-08] MEDS: MIDODRINE 2.5 MG TAB PO SCH ×3 (08:44→17:52)
[2019-02-08] MEDS: POTASSIUM CHLORIDE (SR) 20 MEQ TAB PO SCH ×2 (08:49→20:14)
[2019-02-08] MEDS ORDERED: ALLOPURINOL 100 MG TAB PO SCH (09:00)
[2019-02-08] MEDS: PHENYLephrine 20MG IN 250 ML 250 ML IV SCH ×5 (10:36→22:21)
[2019-02-08] MEDS: SOD FERRIC GLUC COMPLX 125 MG in SOD CHLORIDE 0.9% 100 ML IVPB SCH (13:00)
[2019-02-08] MEDS: PANTOPRAZOLE 40 MG INJ IV SCH (17:53)
[2019-02-08] MEDS: CHOLECALCIFEROL 2,000 UNIT CAP PO SCH (17:58)
[2019-02-08] MEDS ORDERED: LIDOCAINE 1% (MPF) 5 ML VIAL SC ONE (18:00)
[2019-02-08] MEDS: morphine 2 MG INJ IV PRN ×2 (19:08→23:09)
[2019-02-08] MEDS: hydrOXYzine HCL 10 MG TAB PO SCH (20:14)
[2019-02-08] MEDS ORDERED: SOD CHLORIDE 0.9% 250 ML IV ONE (20:30)
[2019-02-08] MEDS ORDERED: SOD CHLORIDE 0.9% 1,000 ML IV SCH (20:30)
[2019-02-08] MEDS: PIPER-TAZO 2.25 GM (PMX) 50 ML IVPB SCH (22:29)
[2019-02-09] VITALS (97 sets, daily range): BP systolic 59–199; BP diastolic 36–171; PULSE 96–193; RESP 11–34
[2019-02-09] MEDS: PHENYLephrine 20MG IN 250 ML 250 ML IV SCH ×3 (00:06→03:00)
[2019-02-09] MEDS: METOPROLOL 5 MG INJ IV PRN (00:32)
[2019-02-09] MEDS ORDERED: MAGNESIUM SULFATE 2 GM/50 ML 50 ML IVPB ONE ×2 (01:30→04:30)
[2019-02-09] MEDS: PHENYLephrine 80 MG in DEXTROSE 5% 242 ML IV SCH ×4 (04:16→22:14)
[2019-02-09] MEDS ORDERED: VASOPRESSIN 60 UNIT in DEXTROSE 5% 57 ML IV SCH ×4 (04:30)
[2019-02-09] MEDS: PANTOPRAZOLE 40 MG INJ IV SCH ×2 (05:18→17:33)
[2019-02-09] MEDS: METOCLOPRAMIDE 10 MG INJ IV SCH ×4 (05:18→23:43)
[2019-02-09] MEDS: PIPER-TAZO 2.25 GM (PMX) 50 ML IVPB SCH ×4 (06:24→23:43)
[2019-02-09] MEDS: CHOLECALCIFEROL 2,000 UNIT CAP PO SCH (08:48)
[2019-02-09] MEDS: ATENOLOL 25 MG TAB PO SCH ×2 (08:48→21:00)
[2019-02-09] MEDS: ALLOPURINOL 100 MG TAB PO SCH (08:48)
[2019-02-09] MEDS: POTASSIUM CHLORIDE (SR) 20 MEQ TAB PO SCH ×2 (08:49→20:09)
[2019-02-09] MEDS: FOLIC ACID 1 MG TAB PO SCH (08:49)
[2019-02-09] MEDS: CITRIC ACID/NA CITRATE 30 ML CUP PO SCH ×2 (08:49→20:11)
[2019-02-09] MEDS: MIDODRINE 2.5 MG TAB PO SCH ×3 (08:49→16:17)
[2019-02-09] MEDS: MAGNESIUM OXIDE 400 MG TAB PO SCH ×2 (08:49→20:09)
[2019-02-09] MEDS: POTASSIUM CHLORIDE 100 ML IVPB SCH ×2 (08:59→11:39)
[2019-02-09] MEDS ORDERED: POTASSIUM CHLORIDE 100 ML IVPB STA (10:37)
[2019-02-09] MEDS: NS + KCL 20 MEQ 1,000 ML IV SCH (16:02)
[2019-02-09] MEDS: SOD FERRIC GLUC COMPLX 125 MG in SOD CHLORIDE 0.9% 100 ML IVPB SCH (16:16)
[2019-02-09] MEDS: morphine 2 MG INJ IV PRN (20:07)
[2019-02-09] MEDS: hydrOXYzine HCL 10 MG TAB PO SCH (20:11)
[2019-02-10] VITALS (90 sets, daily range): BP systolic 57–187; BP diastolic 30–174; PULSE 95–140; RESP 10–32
[2019-02-10] MEDS: METOPROLOL 5 MG INJ IV PRN (03:07)
[2019-02-10] MEDS: NS + KCL 20 MEQ 1,000 ML IV SCH ×3 (03:48→16:24)
[2019-02-10] MEDS: PANTOPRAZOLE 40 MG INJ IV SCH ×2 (06:22→17:31)
[2019-02-10] MEDS: METOCLOPRAMIDE 10 MG INJ IV SCH (06:22)
[2019-02-10] MEDS: PIPER-TAZO 2.25 GM (PMX) 50 ML IVPB SCH ×4 (06:23→23:20)
[2019-02-10] MEDS: CHOLECALCIFEROL 2,000 UNIT CAP PO SCH (08:28)
[2019-02-10] MEDS: CITRIC ACID/NA CITRATE 30 ML CUP PO SCH ×2 (08:29→20:40)
[2019-02-10] MEDS: FOLIC ACID 1 MG TAB PO SCH (08:29)
[2019-02-10] MEDS: ALLOPURINOL 100 MG TAB PO SCH (08:29)
[2019-02-10] MEDS: MAGNESIUM OXIDE 400 MG TAB PO SCH ×2 (08:29→20:40)
[2019-02-10] MEDS: POTASSIUM CHLORIDE (SR) 20 MEQ TAB PO SCH ×2 (08:29→20:40)
[2019-02-10] MEDS: MIDODRINE 2.5 MG TAB PO SCH ×3 (08:29→16:44)
[2019-02-10] MEDS: ATENOLOL 25 MG TAB PO SCH ×2 (09:00→20:41)
[2019-02-10] MEDS: PHENYLephrine 80 MG in DEXTROSE 5% 242 ML IV SCH ×2 (10:49→20:53)
[2019-02-10] MEDS: NEUTRA-PHOS 250 MG PACKET PO SCH ×2 (12:16→20:40)
[2019-02-10] MEDS: SOD FERRIC GLUC COMPLX 125 MG in SOD CHLORIDE 0.9% 100 ML IVPB SCH (12:27)
[2019-02-10] MEDS: hydrOXYzine HCL 10 MG TAB PO SCH (20:41)
[2019-02-11] VITALS (68 sets, daily range): BP systolic 60–138; BP diastolic 44–112; PULSE 84–140; RESP 15–37
[2019-02-11] MEDS: NS + KCL 20 MEQ 1,000 ML IV SCH ×2 (03:00→04:49)
[2019-02-11] MEDS: PANTOPRAZOLE 40 MG INJ IV SCH ×2 (05:01→17:47)
[2019-02-11] MEDS: PIPER-TAZO 2.25 GM (PMX) 50 ML IVPB SCH ×2 (05:01→11:12)
[2019-02-11] MEDS: ATENOLOL 25 MG TAB PO SCH ×2 (08:09→20:32)
[2019-02-11] MEDS: CITRIC ACID/NA CITRATE 30 ML CUP PO SCH ×2 (08:09→20:33)
[2019-02-11] MEDS: CHOLECALCIFEROL 2,000 UNIT CAP PO SCH (08:09)
[2019-02-11] MEDS: POTASSIUM CHLORIDE (SR) 20 MEQ TAB PO SCH (08:09)
[2019-02-11] MEDS: ALLOPURINOL 100 MG TAB PO SCH (08:09)
[2019-02-11] MEDS: PHENYLephrine 80 MG in DEXTROSE 5% 242 ML IV SCH (08:09)
[2019-02-11] MEDS: MAGNESIUM OXIDE 400 MG TAB PO SCH ×2 (08:09→20:33)
[2019-02-11] MEDS: NEUTRA-PHOS 250 MG PACKET PO SCH ×3 (08:09→20:32)
[2019-02-11] MEDS: FOLIC ACID 1 MG TAB PO SCH (08:16)
[2019-02-11] MEDS: MIDODRINE 2.5 MG TAB PO SCH (08:45)
[2019-02-11] MEDS ORDERED: PHYTONADIONE 10 MG/ML INJ SC ONE (12:00)
[2019-02-11] MEDS: MIDODRINE 5 MG TAB PO SCH ×2 (12:48→17:46)
[2019-02-11] MEDS: SOD FERRIC GLUC COMPLX 125 MG in SOD CHLORIDE 0.9% 100 ML IVPB SCH (12:56)
[2019-02-11] MEDS: CEFTRIAXONE 1 GM/50 ML (PMX) 50 ML IVPB SCH (17:46)
[2019-02-11] MEDS: hydrOXYzine HCL 10 MG TAB PO SCH (20:33)
[2019-02-11] MEDS: hydrOXYzine HCL 10 MG TAB PO ONE ×2 (23:24→23:32)
[2019-02-12] VITALS (22 sets, daily range): BP systolic 75–119; BP diastolic 49–70; PULSE 74–112; RESP 14–33
[2019-02-12] MEDS: PANTOPRAZOLE 40 MG INJ IV SCH ×2 (05:06→18:10)
[2019-02-12] MEDS: FOLIC ACID 1 MG TAB PO SCH (09:55)
[2019-02-12] MEDS: MAGNESIUM OXIDE 400 MG TAB PO SCH ×2 (09:55→20:29)
[2019-02-12] MEDS: CITRIC ACID/NA CITRATE 30 ML CUP PO SCH ×2 (09:55→20:28)
[2019-02-12] MEDS: NEUTRA-PHOS 250 MG PACKET PO SCH ×3 (09:56→20:28)
[2019-02-12] MEDS: MIDODRINE 5 MG TAB PO SCH ×3 (09:56→18:10)
[2019-02-12] MEDS: CHOLECALCIFEROL 2,000 UNIT CAP PO SCH (09:56)
[2019-02-12] MEDS: ALLOPURINOL 100 MG TAB PO SCH (09:56)
[2019-02-12] MEDS: ATENOLOL 25 MG TAB PO SCH ×2 (09:57→20:15)
[2019-02-12] MEDS: morphine 2 MG INJ IV PRN (13:37)
[2019-02-12] MEDS: SOD FERRIC GLUC COMPLX 125 MG in SOD CHLORIDE 0.9% 100 ML IVPB SCH (14:01)
[2019-02-12] MEDS: CEFTRIAXONE 1 GM/50 ML (PMX) 50 ML IVPB SCH (18:11)
[2019-02-12] MEDS ORDERED: TRIAMCINOLONE ACET 0.5% 15 GM CR TOP PRN (21:00)
[2019-02-12] MEDS: hydrOXYzine HCL 10 MG TAB PO SCH (22:37)
[2019-02-13] VITALS (27 sets, daily range): BP systolic 69–104; BP diastolic 23–79; PULSE 76–123; RESP 14–31
[2019-02-13] MEDS: PANTOPRAZOLE 40 MG INJ IV SCH ×2 (05:13→17:58)
[2019-02-13] MEDS: ATENOLOL 25 MG TAB PO SCH ×2 (09:00→21:00)
[2019-02-13] MEDS: CITRIC ACID/NA CITRATE 30 ML CUP PO SCH ×2 (09:13→21:42)
[2019-02-13] MEDS: FOLIC ACID 1 MG TAB PO SCH (09:13)
[2019-02-13] MEDS: MAGNESIUM OXIDE 400 MG TAB PO SCH ×2 (09:14→21:42)
[2019-02-13] MEDS: MIDODRINE 5 MG TAB PO SCH ×3 (09:14→17:59)
[2019-02-13] MEDS: CHOLECALCIFEROL 2,000 UNIT CAP PO SCH (09:14)
[2019-02-13] MEDS: ALLOPURINOL 100 MG TAB PO SCH (09:14)
[2019-02-13] MEDS: NEUTRA-PHOS 250 MG PACKET PO SCH (09:14)
[2019-02-13] MEDS: PHENYLephrine 80 MG in DEXTROSE 5% 242 ML IV SCH (11:29)
[2019-02-13] MEDS: CEFTRIAXONE 1 GM/50 ML (PMX) 50 ML IVPB SCH (17:59)
[2019-02-13] MEDS: hydrOXYzine HCL 10 MG TAB PO SCH (21:42)
[2019-02-14] VITALS (22 sets, daily range): BP systolic 63–111; BP diastolic 46–71; PULSE 70–114; RESP 14–29
[2019-02-14] MEDS: ALTEPLASE (CATHFLO) 2 MG INJ CATHETER PRN (05:31)
[2019-02-14] MEDS: PANTOPRAZOLE 40 MG INJ IV SCH ×2 (05:39→17:38)
[2019-02-14] MEDS: ALLOPURINOL 100 MG TAB PO SCH (09:49)
[2019-02-14] MEDS: FOLIC ACID 1 MG TAB PO SCH (09:49)
[2019-02-14] MEDS: MAGNESIUM OXIDE 400 MG TAB PO SCH ×2 (09:49→20:22)
[2019-02-14] MEDS: CHOLECALCIFEROL 2,000 UNIT CAP PO SCH (09:49)
[2019-02-14] MEDS: MIDODRINE 5 MG TAB PO SCH ×3 (09:50→17:38)
[2019-02-14] MEDS: CITRIC ACID/NA CITRATE 30 ML CUP PO SCH ×2 (09:50→20:22)
[2019-02-14] MEDS: ATENOLOL 25 MG TAB PO SCH ×2 (09:50→20:22)
[2019-02-14] MEDS: CEFTRIAXONE 1 GM/50 ML (PMX) 50 ML IVPB SCH (17:39)
[2019-02-14] MEDS: hydrOXYzine HCL 10 MG TAB PO SCH (20:22)
[2019-02-15] VITALS (36 sets, daily range): BP systolic 71–104; BP diastolic 36–73; PULSE 74–132; RESP 12–33
[2019-02-15] MEDS: PANTOPRAZOLE 40 MG INJ IV SCH ×2 (06:04→17:50)
[2019-02-15] MEDS: PHENYLephrine 80 MG in DEXTROSE 5% 242 ML IV SCH (06:06)
[2019-02-15] MEDS: CITRIC ACID/NA CITRATE 30 ML CUP PO SCH ×2 (09:32→21:15)
[2019-02-15] MEDS: MIDODRINE 5 MG TAB PO SCH ×3 (09:34→17:50)
[2019-02-15] MEDS: ALLOPURINOL 100 MG TAB PO SCH (09:36)
[2019-02-15] MEDS: MAGNESIUM OXIDE 400 MG TAB PO SCH ×2 (09:36→21:15)
[2019-02-15] MEDS: CHOLECALCIFEROL 2,000 UNIT CAP PO SCH (09:36)
[2019-02-15] MEDS: FOLIC ACID 1 MG TAB PO SCH (09:36)
[2019-02-15] MEDS: ATENOLOL 25 MG TAB PO SCH (09:36)
[2019-02-15] MEDS ORDERED: MAGNESIUM SULFATE 2 GM/50 ML 50 ML IVPB STA (11:10)
[2019-02-15] MEDS: morphine 2 MG INJ IV PRN (14:45)
[2019-02-15] MEDS: POTASSIUM CHLORIDE 100 ML IVPB SCH ×2 (15:59→17:49)
[2019-02-15] MEDS: CEFTRIAXONE 1 GM/50 ML (PMX) 50 ML IVPB SCH (17:50)
[2019-02-15] MEDS: hydrOXYzine HCL 10 MG TAB PO SCH (21:15)
[2019-02-16] VITALS (15 sets, daily range): BP systolic 79–94; BP diastolic 56–76; PULSE 91–136; RESP 17–27
[2019-02-16] MEDS: morphine 2 MG INJ IV PRN ×2 (00:49→23:43)
[2019-02-16] MEDS: PANTOPRAZOLE 40 MG INJ IV SCH ×2 (06:20→18:26)
[2019-02-16] MEDS: 1/2 NS + KCL 20 MEQ 1,000 ML IV SCH ×3 (06:21→23:42)
[2019-02-16] MEDS: ALLOPURINOL 100 MG TAB PO SCH (09:25)
[2019-02-16] MEDS: FOLIC ACID 1 MG TAB PO SCH (09:25)
[2019-02-16] MEDS: CHOLECALCIFEROL 2,000 UNIT CAP PO SCH (09:25)
[2019-02-16] MEDS: CITRIC ACID/NA CITRATE 30 ML CUP PO SCH ×2 (09:25→21:00)
[2019-02-16] MEDS: MAGNESIUM OXIDE 400 MG TAB PO SCH ×2 (09:25→23:41)
[2019-02-16] MEDS: MIDODRINE 5 MG TAB PO SCH ×3 (09:26→15:52)
[2019-02-16] MEDS: CEFTRIAXONE 1 GM/50 ML (PMX) 50 ML IVPB SCH (18:26)
[2019-02-16] MEDS: hydrOXYzine HCL 10 MG TAB PO SCH (23:41)
[2019-02-17] VITALS (43 sets, daily range): BP systolic 44–107; BP diastolic 19–89; PULSE 79–129; RESP 12–27
[2019-02-17] MEDS: HYDROCORTISONE 1% 28 GM CR TOP PRN (03:22)
[2019-02-17] MEDS: PANTOPRAZOLE 40 MG INJ IV SCH (05:20)
[2019-02-17] MEDS ORDERED: MAGNESIUM SULFATE 2 GM/50 ML 50 ML IVPB ONE (06:30)
[2019-02-17] MEDS: MAGNESIUM OXIDE 400 MG TAB PO SCH ×2 (08:53→20:18)
[2019-02-17] MEDS: FOLIC ACID 1 MG TAB PO SCH (08:53)
[2019-02-17] MEDS: CHOLECALCIFEROL 2,000 UNIT CAP PO SCH (08:53)
[2019-02-17] MEDS: MIDODRINE 5 MG TAB PO SCH ×3 (09:00→17:00)
[2019-02-17] MEDS: CITRIC ACID/NA CITRATE 30 ML CUP PO SCH ×2 (09:00→20:18)
[2019-02-17] MEDS: 1/2 NS + KCL 20 MEQ 1,000 ML IV SCH (11:40)
[2019-02-17] MEDS ORDERED: PHENYLephrine 80 MG in DEXTROSE 5% 242 ML IV SCH (12:00)
[2019-02-17] MEDS: ALBUMIN HUMAN 25% 100 ML IV SCH ×2 (12:59→20:18)
[2019-02-17] MEDS ORDERED: CYANOCOBALAMIN 1000 MCG INJ IM ONE (13:00)
[2019-02-17] MEDS: SOD FERRIC GLUC COMPLX 125 MG in SOD CHLORIDE 0.9% 100 ML IVPB SCH (15:08)
[2019-02-17] MEDS: CEFTRIAXONE 1 GM/50 ML (PMX) 50 ML IVPB SCH (17:30)
[2019-02-17] MEDS: hydrOXYzine HCL 10 MG TAB PO SCH (20:19)
[2019-02-17] MEDS: ACETAMINOPHEN 500 MG TAB PO PRN (23:01)
[2019-02-18] VITALS (22 sets, daily range): BP systolic 83–134; BP diastolic 52–78; PULSE 72–113; RESP 12–31
[2019-02-18] MEDS: 1/2 NS + KCL 20 MEQ 1,000 ML IV SCH ×2 (00:19→13:16)
[2019-02-18] MEDS: HYDROCORTISONE 1% 28 GM CR TOP PRN (02:27)
[2019-02-18] MEDS: ALBUMIN HUMAN 25% 100 ML IV SCH ×3 (03:58→22:11)
[2019-02-18] MEDS: PANTOPRAZOLE (EC) 40 MG TAB PO SCH (05:39)
[2019-02-18] MEDS: CITRIC ACID/NA CITRATE 30 ML CUP PO SCH (08:39)
[2019-02-18] MEDS: CHOLECALCIFEROL 2,000 UNIT CAP PO SCH (08:39)
[2019-02-18] MEDS: MAGNESIUM OXIDE 400 MG TAB PO SCH ×2 (08:39→22:08)
[2019-02-18] MEDS: FOLIC ACID 1 MG TAB PO SCH (08:39)
[2019-02-18] MEDS: MIDODRINE 5 MG TAB PO SCH ×4 (08:43→17:23)
[2019-02-18] MEDS: SOD FERRIC GLUC COMPLX 125 MG in SOD CHLORIDE 0.9% 100 ML IVPB SCH (15:13)
[2019-02-18] MEDS ORDERED: HYDROCODONE/APAP (5/325) TAB PO PRN (15:30)
[2019-02-18] MEDS: CEFTRIAXONE 1 GM/50 ML (PMX) 50 ML IVPB SCH (17:23)
[2019-02-18] MEDS: hydrOXYzine HCL 10 MG TAB PO SCH (22:09)
[2019-02-19 00:25] VITALS: BP 93/54; PULSE 90; RESP 18
[2019-02-19] MEDS: 1/2 NS + KCL 20 MEQ 1,000 ML IV SCH ×2 (02:00→09:09)
[2019-02-19 04:00] VITALS: BP 90/52; PULSE 96; RESP 18
[2019-02-19] MEDS: PANTOPRAZOLE (EC) 40 MG TAB PO SCH (05:26)
[2019-02-19] MEDS: ALBUMIN HUMAN 25% 100 ML IV SCH (05:26)
[2019-02-19 07:49] VITALS: BP 86/53; PULSE 90; RESP 18
[2019-02-19] MEDS: CHOLECALCIFEROL 2,000 UNIT CAP PO SCH (08:51)
[2019-02-19] MEDS: FOLIC ACID 1 MG TAB PO SCH (08:51)
[2019-02-19] MEDS: MAGNESIUM OXIDE 400 MG TAB PO SCH ×2 (08:51→21:45)
[2019-02-19] MEDS: MIDODRINE 5 MG TAB PO SCH ×3 (08:52→16:33)
[2019-02-19] MEDS: CITRIC ACID/NA CITRATE 30 ML CUP PO SCH (09:07)
[2019-02-19 11:35] VITALS: BP 95/52; PULSE 93; RESP 18
[2019-02-19] MEDS: SOD FERRIC GLUC COMPLX 125 MG in SOD CHLORIDE 0.9% 100 ML IVPB SCH (13:12)
[2019-02-19 15:32] VITALS: BP 112/70; PULSE 88; RESP 18
[2019-02-19] MEDS: ALTEPLASE (CATHFLO) 2 MG INJ CATHETER PRN (15:48)
[2019-02-19] MEDS: ACETAMINOPHEN 500 MG TAB PO PRN (16:33)
[2019-02-19] MEDS: CEFTRIAXONE 1 GM/50 ML (PMX) 50 ML IVPB SCH (18:17)
[2019-02-19 20:00] VITALS: BP 94/54; PULSE 82; RESP 18
[2019-02-19] MEDS: hydrOXYzine HCL 10 MG TAB PO SCH (21:45)
[2019-02-20] VITALS (7 sets, daily range): BP systolic 85–101; BP diastolic 50–68; PULSE 85–101; RESP 18–19
[2019-02-20] MEDS ORDERED: HYDROCORTISONE 1% 28 GM CR TOP PRN (00:34)
[2019-02-20] MEDS: ACETAMINOPHEN 500 MG TAB PO PRN (05:46)
[2019-02-20] MEDS: PANTOPRAZOLE (EC) 40 MG TAB PO SCH (05:46)
[2019-02-20] MEDS: 1/2 NS + KCL 20 MEQ 1,000 ML IV SCH ×3 (05:47→21:55)
[2019-02-20] MEDS: MAGNESIUM OXIDE 400 MG TAB PO SCH ×2 (10:12→21:51)
[2019-02-20] MEDS: FOLIC ACID 1 MG TAB PO SCH (10:12)
[2019-02-20] MEDS: CITRIC ACID/NA CITRATE 30 ML CUP PO SCH (10:13)
[2019-02-20] MEDS: CHOLECALCIFEROL 2,000 UNIT CAP PO SCH (10:13)
[2019-02-20] MEDS: MIDODRINE 5 MG TAB PO SCH ×3 (10:13→21:50)
[2019-02-20] MEDS: SOD FERRIC GLUC COMPLX 125 MG in SOD CHLORIDE 0.9% 100 ML IVPB SCH (13:20)
[2019-02-20] MEDS: CEFTRIAXONE 1 GM/50 ML (PMX) 50 ML IVPB SCH (18:44)
[2019-02-20] MEDS: hydrOXYzine HCL 10 MG TAB PO SCH (21:50)
[2019-02-21] VITALS (7 sets, daily range): BP systolic 82–113; BP diastolic 51–71; PULSE 88–137; RESP 18
[2019-02-21] MEDS: ACETAMINOPHEN 500 MG TAB PO PRN (03:37)
[2019-02-21] MEDS: 1/2 NS + KCL 20 MEQ 1,000 ML IV SCH ×2 (04:00→12:31)
[2019-02-21] MEDS: PANTOPRAZOLE (EC) 40 MG TAB PO SCH (06:02)
[2019-02-21] MEDS: CITRIC ACID/NA CITRATE 30 ML CUP PO SCH (08:10)
[2019-02-21] MEDS: CHOLECALCIFEROL 2,000 UNIT CAP PO SCH (08:14)
[2019-02-21] MEDS: MAGNESIUM OXIDE 400 MG TAB PO SCH ×2 (08:14→21:10)
[2019-02-21] MEDS: FOLIC ACID 1 MG TAB PO SCH (08:14)
[2019-02-21] MEDS: MIDODRINE 5 MG TAB PO SCH ×3 (08:16→17:01)
[2019-02-21] MEDS ORDERED: HEPARIN (100 UNITS/ML) 5 ML SYG CATHETER ONE (11:30)
[2019-02-21] MEDS: CEFEPIME 1GM/50 ML (PMX) 50 ML IVPB SCH ×2 (12:21→21:10)
[2019-02-21] MEDS: ZYVOX 600 MG TAB PO SCH ×2 (12:24→21:10)
[2019-02-21] MEDS: SOD FERRIC GLUC COMPLX 125 MG in SOD CHLORIDE 0.9% 100 ML IVPB SCH (12:31)
[2019-02-21] MEDS ORDERED: ALTEPLASE (CATHFLO) 2 MG INJ CATHETER ONE (15:00)
[2019-02-21] MEDS: hydrOXYzine HCL 10 MG TAB PO SCH (21:10)
[2019-02-22] MEDS: 1/2 NS + KCL 20 MEQ 1,000 ML IV SCH ×3 (02:47→20:49)
[2019-02-22 03:06] VITALS: BP 82/52; PULSE 83; RESP 18
[2019-02-22 05:39] VITALS: BP 95/51; PULSE 87
[2019-02-22] MEDS: PANTOPRAZOLE (EC) 40 MG TAB PO SCH (05:39)
[2019-02-22 07:21] VITALS: BP 88/50; PULSE 89; RESP 22
[2019-02-22] MEDS: FOLIC ACID 1 MG TAB PO SCH (08:03)
[2019-02-22] MEDS: CHOLECALCIFEROL 2,000 UNIT CAP PO SCH (08:03)
[2019-02-22] MEDS: MAGNESIUM OXIDE 400 MG TAB PO SCH ×2 (08:03→20:43)
[2019-02-22] MEDS: CEFEPIME 1GM/50 ML (PMX) 50 ML IVPB SCH ×2 (08:03→20:43)
[2019-02-22] MEDS: CITRIC ACID/NA CITRATE 30 ML CUP PO SCH (08:03)
[2019-02-22] MEDS: ZYVOX 600 MG TAB PO SCH ×2 (08:03→20:42)
[2019-02-22] MEDS: MIDODRINE 5 MG TAB PO SCH ×3 (09:00→16:22)
[2019-02-22 11:11] VITALS: BP 87/51; PULSE 83
[2019-02-22 15:25] VITALS: BP 83/53; PULSE 89; RESP 22
[2019-02-22 20:00] VITALS: BP 86/53; PULSE 86; RESP 19
[2019-02-22] MEDS: hydrOXYzine HCL 10 MG TAB PO SCH (20:44)
[2019-02-23] VITALS (8 sets, daily range): BP systolic 82–127; BP diastolic 51–78; PULSE 66–91; RESP 18–20
[2019-02-23] MEDS: PANTOPRAZOLE (EC) 40 MG TAB PO SCH (05:12)
[2019-02-23] MEDS: MAGNESIUM OXIDE 400 MG TAB PO SCH ×2 (10:49→20:49)
[2019-02-23] MEDS: CITRIC ACID/NA CITRATE 30 ML CUP PO SCH (10:49)
[2019-02-23] MEDS: FOLIC ACID 1 MG TAB PO SCH (10:49)
[2019-02-23] MEDS: CEFEPIME 1GM/50 ML (PMX) 50 ML IVPB SCH ×2 (10:49→20:49)
[2019-02-23] MEDS: ZYVOX 600 MG TAB PO SCH ×2 (10:49→20:49)
[2019-02-23] MEDS: CHOLECALCIFEROL 2,000 UNIT CAP PO SCH (10:49)
[2019-02-23] MEDS: hydrOXYzine HCL 10 MG TAB PO SCH (20:52)
[2019-02-24 04:14] VITALS: BP 93/50; PULSE 82; RESP 19
[2019-02-24] MEDS: PANTOPRAZOLE (EC) 40 MG TAB PO SCH (06:20)
[2019-02-24 07:52] VITALS: BP 96/53; PULSE 83; RESP 20
[2019-02-24] MEDS: FOLIC ACID 1 MG TAB PO SCH (09:44)
[2019-02-24] MEDS: CEFEPIME 1GM/50 ML (PMX) 50 ML IVPB SCH ×2 (09:44→20:56)
[2019-02-24] MEDS: MAGNESIUM OXIDE 400 MG TAB PO SCH ×2 (09:44→20:55)
[2019-02-24] MEDS: ZYVOX 600 MG TAB PO SCH ×2 (09:44→20:55)
[2019-02-24] MEDS: CHOLECALCIFEROL 2,000 UNIT CAP PO SCH (09:44)
[2019-02-24 11:08] VITALS: BP 93/64; PULSE 83; RESP 20
[2019-02-24] MEDS: FLUCONAZOLE 100 MG TAB PO SCH (14:16)
[2019-02-24 15:16] VITALS: BP 108/69; PULSE 83; RESP 19
[2019-02-24 20:00] VITALS: BP 90/52; PULSE 97; RESP 18
[2019-02-24] MEDS: BETHANECHOL 10 MG TAB PO SCH (20:55)
[2019-02-24] MEDS: hydrOXYzine HCL 10 MG TAB PO SCH (20:56)
[2019-02-25] VITALS (7 sets, daily range): BP systolic 84–105; BP diastolic 50–64; PULSE 72–87; RESP 18–20
[2019-02-25] MEDS ORDERED: ALTEPLASE (CATHFLO) 2 MG INJ CATHETER PRN (06:00)
[2019-02-25] MEDS: PANTOPRAZOLE (EC) 40 MG TAB PO SCH (06:19)
[2019-02-25] MEDS: CHOLECALCIFEROL 2,000 UNIT CAP PO SCH (08:31)
[2019-02-25] MEDS: ZYVOX 600 MG TAB PO SCH ×2 (08:31→20:46)
[2019-02-25] MEDS: CEFEPIME 1GM/50 ML (PMX) 50 ML IVPB SCH ×2 (08:31→20:47)
[2019-02-25] MEDS: BETHANECHOL 10 MG TAB PO SCH ×3 (08:31→20:46)
[2019-02-25] MEDS: FOLIC ACID 1 MG TAB PO SCH (08:31)
[2019-02-25] MEDS: FLUCONAZOLE 100 MG TAB PO SCH (08:31)
[2019-02-25] MEDS: MAGNESIUM OXIDE 400 MG TAB PO SCH ×2 (08:31→20:46)
[2019-02-25] MEDS: ALTEPLASE (CATHFLO) 2 MG INJ CATHETER PRN (11:39)
[2019-02-25] MEDS: hydrOXYzine HCL 10 MG TAB PO SCH (20:51)
[2019-02-26 04:00] VITALS: BP 98/57; PULSE 71; RESP 20
[2019-02-26] MEDS: PANTOPRAZOLE (EC) 40 MG TAB PO SCH (05:53)
[2019-02-26 07:15] VITALS: BP 97/56; PULSE 78; RESP 17
[2019-02-26] MEDS: CEFEPIME 1GM/50 ML (PMX) 50 ML IVPB SCH ×2 (08:45→21:38)
[2019-02-26] MEDS: MAGNESIUM OXIDE 400 MG TAB PO SCH ×2 (08:45→21:17)
[2019-02-26] MEDS: FOLIC ACID 1 MG TAB PO SCH (08:45)
[2019-02-26] MEDS: CHOLECALCIFEROL 2,000 UNIT CAP PO SCH (08:45)
[2019-02-26] MEDS: FLUCONAZOLE 100 MG TAB PO SCH (08:45)
[2019-02-26] MEDS: BETHANECHOL 10 MG TAB PO SCH ×2 (08:45→13:16)
[2019-02-26] MEDS: ZYVOX 600 MG TAB PO SCH ×2 (08:45→21:17)
[2019-02-26 12:27] VITALS: BP 106/64; PULSE 79; RESP 16
[2019-02-26 15:12] VITALS: BP 95/51; PULSE 78; RESP 17
[2019-02-26 20:00] VITALS: BP 100/58; PULSE 82; RESP 17
[2019-02-26] MEDS: hydrOXYzine HCL 10 MG TAB PO SCH (21:00)
[2019-02-26] MEDS: BETHANECHOL 25 MG TAB PO SCH (21:17)
[2019-02-27] VITALS: BP 95/53; PULSE 74; RESP 18
[2019-02-27 04:00] VITALS: BP 101/60; PULSE 78; RESP 18
[2019-02-27] MEDS: PANTOPRAZOLE (EC) 40 MG TAB PO SCH (05:39)
[2019-02-27 07:04] VITALS: BP 114/69; PULSE 80; RESP 18
[2019-02-27] MEDS: FOLIC ACID 1 MG TAB PO SCH (09:01)
[2019-02-27] MEDS: MAGNESIUM OXIDE 400 MG TAB PO SCH ×2 (09:01→20:44)
[2019-02-27] MEDS: FLUCONAZOLE 100 MG TAB PO SCH (09:01)
[2019-02-27] MEDS: ZYVOX 600 MG TAB PO SCH ×2 (09:01→20:44)
[2019-02-27] MEDS: BETHANECHOL 25 MG TAB PO SCH ×3 (09:01→20:44)
[2019-02-27] MEDS: CHOLECALCIFEROL 2,000 UNIT CAP PO SCH (09:01)
[2019-02-27] MEDS: CEFEPIME 1GM/50 ML (PMX) 50 ML IVPB SCH ×2 (09:03→20:45)
[2019-02-27 11:29] VITALS: BP 92/57; PULSE 77; RESP 18
[2019-02-27 15:08] VITALS: BP 100/59; PULSE 78; RESP 20
[2019-02-27 20:09] VITALS: BP 107/64; PULSE 77; RESP 18
[2019-02-27] MEDS: hydrOXYzine HCL 10 MG TAB PO SCH (20:44)
[2019-02-28 00:22] VITALS: BP 95/51; PULSE 88; RESP 17
[2019-02-28 05:22] VITALS: BP 110/68; PULSE 83; RESP 17
[2019-02-28] MEDS: PANTOPRAZOLE (EC) 40 MG TAB PO SCH (05:22)
[2019-02-28 07:36] VITALS: BP 101/55; PULSE 90; RESP 18
[2019-02-28] MEDS: ZYVOX 600 MG TAB PO SCH ×2 (09:18→21:00)
[2019-02-28] MEDS: MAGNESIUM OXIDE 400 MG TAB PO SCH ×2 (09:18→21:00)
[2019-02-28] MEDS: CHOLECALCIFEROL 2,000 UNIT CAP PO SCH (09:18)
[2019-02-28] MEDS: BETHANECHOL 25 MG TAB PO SCH ×3 (09:18→21:00)
[2019-02-28] MEDS: FOLIC ACID 1 MG TAB PO SCH (09:18)
[2019-02-28] MEDS: CEFEPIME 1GM/50 ML (PMX) 50 ML IVPB SCH ×2 (09:19→21:00)
[2019-02-28] MEDS: FLUCONAZOLE 100 MG TAB PO SCH (09:19)
[2019-02-28 11:16] VITALS: BP 103/57; PULSE 89; RESP 18
[2019-02-28 15:57] VITALS: BP 100/53; PULSE 91; RESP 18
[2019-02-28 20:21] VITALS: BP 99/57; PULSE 75; RESP 17
[2019-02-28] MEDS: hydrOXYzine HCL 10 MG TAB PO SCH (21:00)
[2019-02-28] MEDS: ALTEPLASE (CATHFLO) 2 MG INJ CATHETER PRN (21:08)
[2019-03-01 00:20] VITALS: BP 107/57; PULSE 83; RESP 17
[2019-03-01 04:38] VITALS: BP 107/59; PULSE 82; RESP 17
[2019-03-01] MEDS: PANTOPRAZOLE (EC) 40 MG TAB PO SCH (05:22)
[2019-03-01 08:05] VITALS: BP 105/65; PULSE 83; RESP 18
[2019-03-01] MEDS: CEFEPIME 1GM/50 ML (PMX) 50 ML IVPB SCH ×2 (09:11→22:10)
[2019-03-01] MEDS: MAGNESIUM OXIDE 400 MG TAB PO SCH ×2 (09:11→22:11)
[2019-03-01] MEDS: BETHANECHOL 25 MG TAB PO SCH ×3 (09:11→22:13)
[2019-03-01] MEDS: CHOLECALCIFEROL 2,000 UNIT CAP PO SCH (09:11)
[2019-03-01] MEDS: FLUCONAZOLE 100 MG TAB PO SCH (09:11)
[2019-03-01] MEDS: ZYVOX 600 MG TAB PO SCH ×2 (09:11→22:11)
[2019-03-01] MEDS: FOLIC ACID 1 MG TAB PO SCH (09:11)
[2019-03-01 11:30] VITALS: BP 99/53; PULSE 88; RESP 18
[2019-03-01 15:36] VITALS: BP 111/69; PULSE 95; RESP 18
[2019-03-01 20:00] VITALS: BP 93/58; PULSE 88; RESP 18
[2019-03-01] MEDS: hydrOXYzine HCL 10 MG TAB PO SCH (22:12)
[2019-03-02] VITALS (7 sets, daily range): BP systolic 96–117; BP diastolic 51–69; PULSE 75–94; RESP 18
[2019-03-02] MEDS: PANTOPRAZOLE (EC) 40 MG TAB PO SCH (06:15)
[2019-03-02] MEDS: CEFEPIME 1GM/50 ML (PMX) 50 ML IVPB SCH (08:29)
[2019-03-02] MEDS: MAGNESIUM OXIDE 400 MG TAB PO SCH ×2 (08:29→22:03)
[2019-03-02] MEDS: FOLIC ACID 1 MG TAB PO SCH (08:30)
[2019-03-02] MEDS: BETHANECHOL 25 MG TAB PO SCH ×3 (08:30→22:02)
[2019-03-02] MEDS: FLUCONAZOLE 100 MG TAB PO SCH (08:30)
[2019-03-02] MEDS: CHOLECALCIFEROL 2,000 UNIT CAP PO SCH (08:30)
[2019-03-02] MEDS: ZYVOX 600 MG TAB PO SCH (08:30)
[2019-03-02] MEDS: hydrOXYzine HCL 10 MG TAB PO SCH (22:02)
[2019-03-03 03:58] VITALS: BP 115/61; PULSE 73; RESP 18
[2019-03-03] MEDS: PANTOPRAZOLE (EC) 40 MG TAB PO SCH (06:42)
[2019-03-03 07:56] VITALS: BP 117/73; PULSE 92; RESP 18
[2019-03-03] MEDS: MAGNESIUM OXIDE 400 MG TAB PO SCH ×2 (08:12→23:47)
[2019-03-03] MEDS: CHOLECALCIFEROL 2,000 UNIT CAP PO SCH (08:12)
[2019-03-03] MEDS: FOLIC ACID 1 MG TAB PO SCH (08:12)
[2019-03-03] MEDS: BETHANECHOL 25 MG TAB PO SCH ×3 (08:12→23:47)
[2019-03-03 11:28] VITALS: BP 107/63; PULSE 91; RESP 18
[2019-03-03 14:56] VITALS: BP 107/60; PULSE 87; RESP 19
[2019-03-03] MEDS ORDERED: SOD CHLORIDE 0.9% 1,000 ML IV SCH (15:00)
[2019-03-03] MEDS ORDERED: MAGNESIUM SULFATE 4 GM/100 ML 100 ML IVPB ONE (15:00)
[2019-03-03] MEDS ORDERED: SOD CHLORIDE 0.9% 500 ML IV ONE (16:00)
[2019-03-03 20:00] VITALS: BP 113/70; PULSE 101; RESP 19
[2019-03-03] MEDS: hydrOXYzine HCL 10 MG TAB PO SCH (21:00)
[2019-03-04] VITALS: BP 105/64; PULSE 82; RESP 18
== END 2019-03-04 02:40 | disposition home health service (06) | DRG 682 ==
LOC: E/R 17:15 → TEL 21:36 → ICU 02-08 04:47 → 6WM 02-18 18:13
PROVIDERS: ADMIT Internal Medicine; ATTEND Internal Medicine
PROC: 02HV33Z Insertion of Infusion Device into Superior Vena Cava, Percutaneous Approach (ICD-10-PCS; principal; 2019-02-09)
PROC: 30233N1 Transfusion of Nonautologous Red Blood Cells into Peripheral Vein, Percutaneous Approach (ICD-10-PCS; 2019-02-17)
DX: N17.9 Acute kidney failure, unspecified (principal); R65.21 Severe sepsis with septic shock; A41.01 Sepsis due to Methicillin susceptible Staphylococcus aureus; J18.9 Pneumonia, unspecified organism; Q43.1 Hirschsprung's disease; K90.9 Intestinal malabsorption, unspecified; E87.1 Hypo-osmolality and hyponatremia; I87.1 Compression of vein; N39.0 Urinary tract infection, site not specified; B95.1 Streptococcus, group B, as the cause of diseases classified elsewhere; D69.6 Thrombocytopenia, unspecified; D50.9 Iron deficiency anemia, unspecified; E86.0 Dehydration; E87.6 Hypokalemia; E86.1 Hypovolemia; E79.0 Hyperuricemia without signs of inflammatory arthritis and tophaceous disease; E83.52 Hypercalcemia; E83.42 Hypomagnesemia; F32.9 Major depressive disorder, single episode, unspecified; I95.9 Hypotension, unspecified; N18.2 Chronic kidney disease, stage 2 (mild); R00.0 Tachycardia, unspecified; R33.9 Retention of urine, unspecified; R10.9 Unspecified abdominal pain; R79.1 Abnormal coagulation profile; Y95 Nosocomial condition; Z90.49 Acquired absence of other specified parts of digestive tract; Z93.2 Ileostomy status
CPT/HCPCS: 36415; 36430; 36569; 71045; 72100; 74176; 76775; 76937; 80048; 80053; 80061; 80076; 81001; 82270; 82533; 82607; 82668; 82728; 82746; 83010; 83540; 83605; 83615; 83735; 83930; 83935; 84100; 84132; 84155; 84165; 84300; 84439; 84443; 84484; 84560; 84703; 85014; 85018; 85025; 85045; 85610; 85730; 86850; 86900; 86901; 86920; 87081; 87086; 93005; 93306; 96374; 96375; 96376; 97110; 97116; 97161; 97164; 97530; A4310; C9113; J0153; J0692; J0696; J1265; J1642; J2060; J2270; J2370; J2405; J2543; J2765; J2916; J2997; J3420; J3475; J3480; J7030; J7040; J7070; P9016; P9047

== ENCOUNTER 2019-03-17 22:22 | Inpatient (IN) | payer OTHER ==
[~2019-03-17] VITALS: Ht 142.2 cm; Wt 34.0 kg
[~2019-03-17 22:22] MED LIST changes: -ALBU8.5H8 INH; -CHOL200056 PO; -CYAN100053 IM; -FLUO120C4 TOP; -FLUT16SP17 NASAL; -FOLI0.4T2 PO; -POTA20TA15 ORAL; +POTA20TA15 PO
[2019-03-17] MEDS ORDERED: SOD CHLORIDE 0.9% 1,000 ML IV STA (23:34)
[2019-03-17] MEDS ORDERED: morphine 2 MG INJ IV STA (23:34)
[2019-03-17] MEDS ORDERED: ONDANSETRON 4 MG INJ IV STA (23:34)
[2019-03-18] VITALS (16 sets, daily range): BP systolic 80–108; BP diastolic 50–66; PULSE 65–88; RESP 10–23; Ht 142.2 cm; Wt 34.0 kg
[2019-03-18] MEDS ORDERED: CEFEPIME 1GM/50 ML (PMX) 50 ML IVPB ONE (02:30)
[2019-03-18] MEDS ORDERED: MAGNESIUM SULFATE 2 GM/50 ML 50 ML IVPB ONE (03:00)
[2019-03-18] MEDS: POTASSIUM CHLORIDE 50 ML IVPB SCH ×4 (03:14→09:07)
[2019-03-18] MEDS ORDERED: SOD CHLORIDE 0.9% 1,000 ML IV SCH (04:30)
[2019-03-18] MEDS ORDERED: ONDANSETRON 4 MG INJ IV PRN ×2 (07:30→12:00)
[2019-03-18] MEDS ORDERED: POTASSIUM CHLORIDE 40 MEQ in SOD CHLORIDE 0.9% 1,000 ML IV SCH (08:00)
[2019-03-18] MEDS ORDERED: NACL 0.9% 3 ML SYG IV SCH (12:00)
[2019-03-18] MEDS ORDERED: ACETAMINOPHEN 650MG/20.3ML CUP PO PRN (12:00)
[2019-03-18] MEDS ORDERED: HYDROCODONE/APAP (5/325) TAB PO PRN (12:00)
[2019-03-18] MEDS ORDERED: morphine 2 MG INJ IV PRN (12:00)
[2019-03-18] MEDS: SOD CHLORIDE 0.9% 1,000 ML IV SCH ×3 (12:04→21:30)
[2019-03-18] MEDS: POTASSIUM CHLORIDE 50 ML IVPB PRN ×4 (13:08→23:55)
[2019-03-18] MEDS: CEFEPIME 1GM/50 ML (PMX) 50 ML IVPB SCH (15:35)
[2019-03-19] VITALS (33 sets, daily range): BP systolic 69–106; BP diastolic 41–93; PULSE 60–99; RESP 9–24
[2019-03-19] MEDS: POTASSIUM CHLORIDE 50 ML IVPB PRN ×6 (00:22→23:43)
[2019-03-19] MEDS: CEFEPIME 1GM/50 ML (PMX) 50 ML IVPB SCH ×2 (03:41→14:49)
[2019-03-19] MEDS: PANTOPRAZOLE (EC) 40 MG TAB PO SCH (05:12)
[2019-03-19] MEDS: ENOXAPARIN 30 MG/0.3 ML SYG SC SCH (09:28)
[2019-03-19] MEDS: SOD CHLORIDE 0.9% 1,000 ML IV SCH (11:05)
[2019-03-19] MEDS ORDERED: AQUAPHOR 52.5 GM OINT TOP PRN (11:30)
[2019-03-19] MEDS: AMOXICILLIN 500 MG CAP PO SCH (17:48)
[2019-03-19] MEDS: LORAZEPAM 2 MG INJ IV PRN (23:48)
[2019-03-20] VITALS (21 sets, daily range): BP systolic 76–114; BP diastolic 47–71; PULSE 65–109; RESP 10–24
[2019-03-20] MEDS: POTASSIUM CHLORIDE 50 ML IVPB PRN ×7 (01:00→23:08)
[2019-03-20] MEDS: AMOXICILLIN 500 MG CAP PO SCH ×4 (01:00→23:14)
[2019-03-20] MEDS: PANTOPRAZOLE (EC) 40 MG TAB PO SCH (06:38)
[2019-03-20] MEDS: SOD CHLORIDE 0.9% 1,000 ML IV SCH ×5 (06:38→19:20)
[2019-03-20] MEDS: ENOXAPARIN 30 MG/0.3 ML SYG SC SCH (08:40)
[2019-03-21] MEDS: SOD CHLORIDE 0.9% 1,000 ML IV SCH ×2 (03:30→05:00)
[2019-03-21 04:01] VITALS: BP 127/77; PULSE 88; RESP 18
[2019-03-21] MEDS: PANTOPRAZOLE (EC) 40 MG TAB PO SCH (05:00)
[2019-03-21] MEDS: POTASSIUM CHLORIDE 50 ML IVPB PRN ×2 (06:21→08:33)
[2019-03-21 07:13] VITALS: BP 102/68; PULSE 88; RESP 18
[2019-03-21] MEDS: AMOXICILLIN 500 MG CAP PO SCH ×3 (08:33→23:43)
[2019-03-21] MEDS: ENOXAPARIN 30 MG/0.3 ML SYG SC SCH (09:52)
[2019-03-21 11:06] VITALS: BP 119/62; PULSE 84; RESP 18
[2019-03-21 16:17] VITALS: BP 121/60; PULSE 96; RESP 18
[2019-03-21 19:49] VITALS: BP 120/67; PULSE 102; RESP 18
[2019-03-21] MEDS: LORAZEPAM 2 MG INJ IV PRN (23:10)
[2019-03-21 23:29] VITALS: BP 94/58; PULSE 75; RESP 18
[2019-03-22 03:30] VITALS: BP 101/67; PULSE 68; RESP 18
[2019-03-22] MEDS: PANTOPRAZOLE (EC) 40 MG TAB PO SCH (05:40)
[2019-03-22] MEDS: POTASSIUM CHLORIDE 50 ML IVPB PRN ×2 (06:58→17:11)
[2019-03-22 07:25] VITALS: BP 97/59; PULSE 101; RESP 18
[2019-03-22] MEDS: AMOXICILLIN 500 MG CAP PO SCH ×2 (08:25→17:07)
[2019-03-22] MEDS: ENOXAPARIN 30 MG/0.3 ML SYG SC SCH (08:27)
[2019-03-22 11:21] VITALS: BP 105/64; PULSE 91; RESP 20
[2019-03-22 15:44] VITALS: BP 91/59; PULSE 117; RESP 18
[2019-03-22 20:00] VITALS: BP 87/50; PULSE 104; RESP 18
[2019-03-23] VITALS: BP 96/66; PULSE 92; RESP 18
[2019-03-23] MEDS: LORAZEPAM 2 MG INJ IV PRN ×2 (00:29→23:33)
[2019-03-23] MEDS: AMOXICILLIN 500 MG CAP PO SCH ×4 (00:29→23:29)
[2019-03-23 03:57] VITALS: BP 107/66; PULSE 79; RESP 18
[2019-03-23] MEDS: PANTOPRAZOLE (EC) 40 MG TAB PO SCH (06:35)
[2019-03-23 07:24] VITALS: BP 102/53; PULSE 98; RESP 16
[2019-03-23] MEDS: ENOXAPARIN 30 MG/0.3 ML SYG SC SCH (09:07)
[2019-03-23 11:14] VITALS: BP 87/53; PULSE 89; RESP 16
[2019-03-23 15:15] VITALS: BP 78/53; PULSE 80; RESP 15
[2019-03-23 20:00] VITALS: BP 94/49; PULSE 103; RESP 19
[2019-03-24] VITALS: BP 93/54; PULSE 63; RESP 18
[2019-03-24 04:00] VITALS: BP 96/55; PULSE 104; RESP 18
[2019-03-24] MEDS: PANTOPRAZOLE (EC) 40 MG TAB PO SCH (05:13)
[2019-03-24] MEDS: AMOXICILLIN 500 MG CAP PO SCH ×2 (07:41→16:16)
[2019-03-24 07:46] VITALS: BP 106/58; PULSE 99; RESP 20
[2019-03-24] MEDS: ENOXAPARIN 30 MG/0.3 ML SYG SC SCH (08:33)
[2019-03-24 11:19] VITALS: BP 106/69; PULSE 82
[2019-03-24 15:20] VITALS: BP 89/51; PULSE 86
[2019-03-24] MEDS ORDERED: CYANOCOBALAMIN 1000 MCG INJ SC SCH (17:30)
[2019-03-24] MEDS: CHOLECALCIFEROL 2,000 UNIT CAP PO SCH (18:02)
[2019-03-24 20:00] VITALS: BP 129/59; PULSE 95; RESP 20
[2019-03-25 00:05] VITALS: BP 111/64; PULSE 82; RESP 18
[2019-03-25] MEDS: AMOXICILLIN 500 MG CAP PO SCH ×3 (00:45→16:32)
[2019-03-25 04:00] VITALS: BP 111/60; PULSE 72; RESP 18
[2019-03-25] MEDS: PANTOPRAZOLE (EC) 40 MG TAB PO SCH (05:45)
[2019-03-25 07:21] VITALS: BP 109/58; PULSE 85; RESP 18
[2019-03-25] MEDS: hydrOXYzine HCL 10 MG TAB PO SCH (08:32)
[2019-03-25] MEDS: CHOLECALCIFEROL 2,000 UNIT CAP PO SCH (08:32)
[2019-03-25] MEDS: ENOXAPARIN 30 MG/0.3 ML SYG SC SCH (08:41)
[2019-03-25 11:07] VITALS: BP 94/57; PULSE 103; RESP 19
[2019-03-25 16:01] VITALS: BP 108/63; PULSE 104; RESP 19
[2019-03-25 20:00] VITALS: BP 91/57; PULSE 102; RESP 18
[2019-03-25] MEDS: POTASSIUM CHLORIDE 50 ML IVPB PRN (23:42)
[2019-03-25] MEDS: LORAZEPAM 2 MG INJ IV PRN (23:42)
[2019-03-26] VITALS (7 sets, daily range): BP systolic 94–119; BP diastolic 54–68; PULSE 78–114; RESP 17–19
[2019-03-26] MEDS: PANTOPRAZOLE (EC) 40 MG TAB PO SCH (06:02)
[2019-03-26] MEDS ORDERED: MAGNESIUM SULFATE 2 GM/50 ML 50 ML IVPB ONE (07:00)
[2019-03-26] MEDS: CHOLECALCIFEROL 2,000 UNIT CAP PO SCH (09:51)
[2019-03-26] MEDS: hydrOXYzine HCL 10 MG TAB PO SCH (09:51)
[2019-03-26] MEDS: POTASSIUM CHLORIDE 50 ML IVPB PRN (09:52)
[2019-03-26] MEDS: ENOXAPARIN 30 MG/0.3 ML SYG SC SCH (09:55)
[2019-03-27] MEDS: LORAZEPAM 2 MG INJ IV PRN ×2 (00:10→23:34)
[2019-03-27 03:43] VITALS: BP 103/63; PULSE 105; RESP 18
[2019-03-27] MEDS: PANTOPRAZOLE (EC) 40 MG TAB PO SCH (05:32)
[2019-03-27 07:31] VITALS: BP 96/70; PULSE 112; RESP 20
[2019-03-27] MEDS: hydrOXYzine HCL 10 MG TAB PO SCH (08:19)
[2019-03-27] MEDS: CHOLECALCIFEROL 2,000 UNIT CAP PO SCH (08:19)
[2019-03-27] MEDS: POTASSIUM CHLORIDE 50 ML IVPB PRN (08:21)
[2019-03-27] MEDS: ENOXAPARIN 30 MG/0.3 ML SYG SC SCH (08:36)
[2019-03-27] MEDS ORDERED: MAGNESIUM SULFATE 2 GM/50 ML 50 ML IVPB ONE (11:00)
[2019-03-27 11:43] VITALS: BP 107/68; PULSE 123; RESP 20
[2019-03-27 15:42] VITALS: BP 91/56; PULSE 109; RESP 20
[2019-03-27 20:26] VITALS: BP 90/58; PULSE 104; RESP 22
[2019-03-28] VITALS (7 sets, daily range): BP systolic 95–111; BP diastolic 53–71; PULSE 95–111; RESP 17–22
[2019-03-28] MEDS: PANTOPRAZOLE (EC) 40 MG TAB PO SCH (05:50)
[2019-03-28] MEDS ORDERED: MAGNESIUM SULFATE 2 GM/50 ML 50 ML IVPB ONE (08:30)
[2019-03-28] MEDS: CHOLECALCIFEROL 2,000 UNIT CAP PO SCH (08:35)
[2019-03-28] MEDS: hydrOXYzine HCL 10 MG TAB PO SCH (08:35)
[2019-03-28] MEDS: ENOXAPARIN 30 MG/0.3 ML SYG SC SCH (10:03)
[2019-03-28] MEDS: LORAZEPAM 2 MG INJ IV PRN (23:03)
[2019-03-29 03:41] VITALS: BP 102/64; PULSE 92; RESP 20
[2019-03-29] MEDS: PANTOPRAZOLE (EC) 40 MG TAB PO SCH (05:37)
[2019-03-29 08:15] VITALS: BP 104/67; PULSE 120; RESP 19
[2019-03-29] MEDS ORDERED: MAGNESIUM SULFATE 2 GM/50 ML 50 ML IVPB ONE (09:00)
[2019-03-29] MEDS: hydrOXYzine HCL 10 MG TAB PO SCH (09:00)
[2019-03-29] MEDS: CHOLECALCIFEROL 2,000 UNIT CAP PO SCH (09:39)
[2019-03-29] MEDS: ENOXAPARIN 30 MG/0.3 ML SYG SC SCH (09:48)
[2019-03-29 11:44] VITALS: BP 115/58; PULSE 97; RESP 18
[2019-03-29 15:35] VITALS: BP 112/75; PULSE 110; RESP 18
[2019-03-29 20:08] VITALS: BP 106/61; PULSE 101; RESP 18
[2019-03-29] MEDS: LORAZEPAM 2 MG INJ IV PRN (23:34)
[2019-03-29] MEDS: MAGNESIUM OXIDE 400 MG TAB PO SCH (23:34)
[2019-03-30 00:24] VITALS: BP 103/66; PULSE 75; RESP 18
[2019-03-30 05:03] VITALS: BP 103/57; PULSE 91; RESP 17
[2019-03-30] MEDS: PANTOPRAZOLE (EC) 40 MG TAB PO SCH (05:16)
[2019-03-30 07:55] VITALS: BP 117/62; PULSE 96; RESP 18
[2019-03-30] MEDS: hydrOXYzine HCL 10 MG TAB PO SCH (07:58)
[2019-03-30] MEDS: CHOLECALCIFEROL 2,000 UNIT CAP PO SCH (07:58)
[2019-03-30] MEDS: MAGNESIUM OXIDE 400 MG TAB PO SCH ×2 (07:58→20:04)
[2019-03-30] MEDS: ENOXAPARIN 30 MG/0.3 ML SYG SC SCH (08:09)
[2019-03-30] MEDS: POTASSIUM CHLORIDE 50 ML IVPB PRN (10:39)
[2019-03-30 11:46] VITALS: BP 119/71; PULSE 112; RESP 18
[2019-03-30] MEDS ORDERED: MAGNESIUM SULFATE 2 GM/50 ML 50 ML IVPB STA (12:05)
[2019-03-30 15:06] VITALS: BP 95/59; PULSE 117; RESP 19
[2019-03-30] MEDS ORDERED: HEPARIN (100 UNITS/ML) 5 ML SYG CATHETER ONE (18:30)
[2019-03-30] MEDS ORDERED: HEPARIN 1000 UNITS/ML 10 ML INJ ONE (18:36)
[2019-03-30 20:00] VITALS: BP 101/67; PULSE 113; RESP 20
== END 2019-03-30 20:53 | disposition home or self-care (01) | DRG 690 ==
LOC: E/R 22:22 → ICU 03-18 02:54 → 6WM 03-20 18:42
PROVIDERS: ADMIT Internal Medicine; ATTEND Internal Medicine
DX: N39.0 Urinary tract infection, site not specified (principal); E87.1 Hypo-osmolality and hyponatremia; E87.3 Alkalosis; I95.9 Hypotension, unspecified; E87.6 Hypokalemia; R33.9 Retention of urine, unspecified; E86.0 Dehydration; R94.31 Abnormal electrocardiogram [ECG] [EKG]; Z93.2 Ileostomy status; F99 Mental disorder, not otherwise specified; E83.42 Hypomagnesemia; E55.9 Vitamin D deficiency, unspecified; D50.8 Other iron deficiency anemias
CPT/HCPCS: 36415; 71045; 80048; 80053; 81001; 83735; 84100; 84132; 84484; 84703; 85025; 85049; 85610; 85670; 85730; 87081; 87086; 93005; 96374; 96375; 97110; 97116; 97162; 97530; J0692; J1642; J1644; J1650; J2060; J2270; J2405; J3420; J3475; J3480; J7030